=== PATIENT | male | born 1950 | race Caucasian/White ===

== ENCOUNTER 2016-08-21 10:50 | Day surgery (SDC) | payer MEDICARE, OTHER ==
[2016-08-20 10:38] VITALS: BMI 29.4
[~2016-08-21 10:50] MED LIST: ALPRAZolam 0.25 MG TAB PO PRN; ALPRAZolam 0.5 MG TAB PO PRN; ASPIRIN 325 MG TAB PO STA; ATORVASTATIN 80 MG TAB PO STA; NITROGLYCERIN SL TABS 0.4 MG TAB SUBLINGUAL PRN; SODIUM CHLORIDE 0.9% 1,000 ML in EMPTY BAG 1 BAG IV ONE
[2016-08-21 11:31] VITALS: RESP 16; TEMP 98.6
[2016-08-21 11:44] LABS: Basophils % (A) 0 %; CH 29.3; CHCM 33.3; Eosinophils # (A) 0.1 k/uL (0-0.7); Eosinophils % (A) 4 %; HDW 3.09; HGB 13.4 gm/dL (13.0-17.5); Luc # (Auto) 0.05; Luc % (Auto) 2; Lymphocytes # (A) 0.5 k/uL (1.0-4.8); Lymphocytes % (A) 17 %; MCH 29.8 pg (25.0-35.0); MCHC 33.6 g/dL (31.0-37.0); MCV 88.7 fL (80.0-100.0); Mean Platelet Volume 8.4; Monocytes # (A) 0.2 k/uL (0-1.0); Monocytes % (A) 6 %; Neutrophils # (A) 2.2 k/uL (1.3-7.7); Neutrophils % (A) 71 %; RBC 4.51 m/uL (4.30-5.90); RDW 15.8 % (11.5-15.5); WBC 3.1 k/uL (3.8-10.6); WBC (Perox) 2.91
[2016-08-21 11:57] LABS: Anion Gap 10 mmol/L; Blood Urea Nitrogen 30 mg/dL (9-20); Calcium 8.8 mg/dL (8.4-10.2); Carbon Dioxide 22 mmol/L (22-30); Chloride 111 mmol/L (98-107); Glucose 107 mg/dL (74-99); Non-African American GFR(MDRD) >60 (>60 ml/min/1.73 sqM); Sodium 143 mmol/L (137-145)
[2016-08-21] MEDS ORDERED: MIDAZOLAM 2 MG/2 ML VIAL IV ONE (12:18)
[2016-08-21] MEDS ORDERED: LIDOCAINE 2% INJ 20 MG/ML SQ ONE (12:25)
[2016-08-21] MEDS ORDERED: fentaNYL (PF) 50 MCG/ML 2 ML AMP IV ONE (12:25)
[2016-08-21] MEDS ORDERED: hydrALAZINE HCL 20 MG/ML 1 ML VIAL IV ONE (12:38)
[2016-08-21] MEDS ORDERED: IOHEXOL 350 MG/ML 125ML BOTTLE INJ ONE (12:48)
[2016-08-21] MEDS ORDERED: RX INFO: IV CONTRAST WAS GIVEN 1 EACH MISC MISCELLANE PRN (12:52)
[2016-08-21] MEDS ORDERED: NITROGLYCERIN OINT 1 INCH/GM PACKET TOPICAL ONE (12:55)
[2016-08-21] MEDS ORDERED: ENALAPRILAT 1.25 MG/ML 1 ML VIAL ONE (12:55)
[2016-08-21] MEDS ORDERED: ENALAPRILAT 1.25 MG/ML 1 ML VIAL IVP STA (12:58)
[2016-08-21] MEDS ORDERED: NITROGLYCERIN OINT 1 INCH/GM PACKET TOPICAL STA (12:58)
[2016-08-21] MEDS ORDERED: SODIUM CHLORIDE 0.9% 1,000 ML IV SCH (13:00)
--- NOTE | 2016-08-21 13:01 | P.PCN ---
Date of Procedure: 08/21/16 Preoperative Diagnosis: Chest pain and shortness of breath and history of hypertension and family history of ischemic heart disease Postoperative Diagnosis: Minimal coronary artery disease. LV gram was not performed Procedure(s) Performed: Left heart catheterization without LV gram Implants: Indications for Procedure: Operative Findings: Description of Procedure: HISTORY: This is a 66-year-old gentleman with history of COPD and hypertensive cardiac vascular disease and also strong family history of ischemic heart disease. Patient has been having exertional shortness of breath. Patient was sent for cardiac evaluation. A nuclear stress test was negative for ischemia. Echocardiogram showed good LV function. However, patient continued to have chest pain and was recommended to have cardiac catheterization by teaching dietitian. Patient has chronic low platelet count. He was cleared by cesspool cleaner proceed with cardiac cath. CONSENT:I have discussed the risks, benefits and alternative therapies for the above-mentioned procedure and for both sedation/analgesia as well as necessary blood product administration, if indicated, as they pertain to this patient. The patient has indicated understanding and acceptance of the risks and procedures discussed. PROCEDURE: Patient was brought to the lab in a fasting state. Patient was given some IV sedation. The right groin is infiltrated with lidocaine and right femoral artery was entered using Seldinger technique. A 6-Khmer catheter was left in place and selective coronary arteriography was performed. Patient tolerated the procedure well. Femoral angiogram was performed . The puncture site was not suitable for Angio-Seal. Manual compression was applied for hemostasis. No immediate complications were noted and patient was transferred to [facility] in a stable condition HEMODYNAMICS: The aortic pressure is about 160-170 systolic with diastolics of 70-80. Left ankle end-diastolic pressure was not measured SELECTIVE CORONARY ARTERIOGRAPHY: LEFT MAIN: Normal length and patent THE LEFT ANTERIOR DESCENDING CORONARY ARTERY: This is a good caliber vessel wrapping around the apex. There is a plaque at the origin of the diagonal branch involving the ostium with 30-40% luminal narrowing. The rest of the vessel is free of occlusive disease THE LEFT CIRCUMFLEX AND IS CORONARY ARTERY:. This is a good caliber vessel giving rise to good-sized PLV branch. The circumflex coronary artery and branches are free of occlusive disease. THE RIGHT CORONARY ARTERY: Small and nondominant LEFT VENTRICULOGRAPHY: Not performed FINAL IMPRESSION: Mild coronary artery disease PLAN: Maximum medical therapy and risk factor modification PROGNOSIS: Fair
[2016-08-21] MEDS ORDERED: CYCLOBENZAPRINE 10 MG TAB PO PRN (13:02)
[2016-08-21] MEDS ORDERED: COLCHICINE 0.6 MG TAB PO PRN (13:02)
[2016-08-21] MEDS ORDERED: ALBUTEROL NEBULIZED 2.5 MG/3 ML INHALATION PRN (13:02)
[2016-08-21] MEDS ORDERED: HYDROcodone/APAP 10-325MG 1 EACH TAB PO PRN (13:02)
[2016-08-21] MEDS ORDERED: HYDROmorphone 1 MG/ML 1 ML SYRINGE ONE (15:32)
[2016-08-21 19:48] VITALS: BP 156/82; PULSE 60
[2016-08-22] MEDS ORDERED: amLODIPine 10 MG TAB PO SCH (09:00)
[2016-08-22] MEDS ORDERED: ASPIRIN 81 MG CHEW PO SCH (09:00)
[2016-08-22] MEDS ORDERED: LOSARTAN 50 MG TAB PO SCH (09:00)
[2016-08-22] MEDS ORDERED: FERROUS SULFATE 325 MG TAB PO SCH (12:00)
== END 2016-08-21 20:27 | disposition home or self-care (01) ==
LOC: CATHCVL 10:50
PROVIDERS: ATTEND Internal Medicine Cardiovascular Disease
DX: I25.10 Atherosclerotic heart disease of native coronary artery without angina pectoris (principal); I11.9 Hypertensive heart disease without heart failure; J44.9 Chronic obstructive pulmonary disease, unspecified; Z82.49 Family history of ischemic heart disease and other diseases of the circulatory system; F17.200 Nicotine dependence, unspecified, uncomplicated; Z79.891 Long term (current) use of opiate analgesic; Z79.899 Other long term (current) drug therapy
CPT/HCPCS: 93454; 80048; 85025; C1769 ×3; C1894; J2001; J2250; J0360; J3010; J1170; Q9967

== ENCOUNTER → 2017-09-06 | Outpatient (CLI) | payer OTHER ==
--- NOTE | 2017-09-06 10:03 | CT ---
EXAMINATION TYPE: CT abdomen pelvis wo con DATE OF EXAM: 09/06/2017 COMPARISON: NONE HISTORY: ventral hernia CT DLP: 662.8 mGycm Automated exposure control for dose reduction was used. TECHNIQUE: Helical acquisition of images was performed from the lung bases through the pelvis. FINDINGS: LUNG BASES: There is a possible 7 mm right basilar pulmonary nodule versus ectatic vasculature with s urrounding atelectasis on series 4 image 18. Bibasilar subsegmental atelectasis is seen. LIVER/GB: There is a cirrhotic morphology of the liver. Nonspecific left hepatic lobe lesion most lik britni represents a cyst as it is fluid attenuated and measures 1.4 cm on series 3 image 27. Additional probable cyst within the right hepatic lobe as seen on series 3 image 50 measuring 8 mm. Ill-defined possible subcentimeter segment 8 lesion measures 5 mm on series 3 image 17. Evaluation of the hepatic parenchyma is limited given lack of intravenous contrast. There are gastrohepatic and splenic varice s. No paraesophageal varices are identified. Haziness within the central mesentery likely relates to venous congestion due to portal hypertension. PANCREAS: There is mild pancreatic parenchymal atrophy without ductal dilatation. SPLEEN: The spleen is enlarged measuring 16.2 cm in craniocaudal dimension. ADRENALS: Indeterminate 1.1 cm right adrenal gland lesion does not measure Hounsfield units compatibl e with a benign adenoma or myelolipoma. KIDNEYS: No hydronephrosis or nephrolithiasis. Possible right upper pole renal cyst is ill-defined wi thout contrast and seen on series 3 image 36. FREE AIR: No free air is visualized REPRODUCTIVE ORGANS: Prostate gland is heterogenous containing central zone calcifications. URINARY BLADDER: No significant abnormality is seen. ADENOPATHY: No greater than 1 cm short axis lymph node is seen within the abdomen or pelvis. OSSEOUS STRUCTURES: Nonspecific sclerotic focus of the left ischium is present on series 3 image 89. Moderate multilevel degenerative changes of the thoracic spine are seen with grade 1 retrolisthesis of L3 on L4 and degenerative changes most pronounced from L3 through S1. BOWEL: There is mild congestive colopathy of the right hemicolon with pericolonic fat stranding powell ges from the adjacent hepatocellular disease. No bowel dilatation. Appendix is within normal limits. Numerous colonic diverticula are present without pericolonic fat stranding. OTHER: There has been ventral hernia repair. There remains diastases recti. Abutting loops of bowel a re seen without discrete fascial defect. Left-sided anterior hip musculature lipomatous lesion is pre sent on series 3 image 88 measuring 1.6 cm. VASCULATURE: The abdominal aorta is tortuous in course and upper limits of normal size measuring 3.3 x 3.0 cm infrarenally. There is a focal acute ankle of the abdominal aorta on coronal series 6 image 58. Moderate calcific atheromatous changes are appreciated. IMPRESSION: 1. PRIOR VENTRAL HERNIA REPAIR WITHOUT EVIDENCE FOR RECURRENCE. 2. 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 ADD ITIONALLY THERE ARE 2 HEPATIC CYSTS AND SUBCENTIMETER HEPATIC LESION THAT COULD REPRESENT A REGENERAT JUNG NODULE ON THE HEPATOMA IS NOT EXCLUDED IN THIS PATIENT WITH A HIGH RISK OF HEPATOCELLULAR DISEASE . ENHANCED MR COULD BE PERFORMED FOR FURTHER EVALUATION. 3. INDETERMINATE RIGHT 1.1 CM ADRENAL GLAND LESION. THIS COULD ALSO BE FURTHER CHARACTERIZED WITH MRI . 4. POSSIBLE 7 MM RIGHT BASILAR PULMONARY NODULE VERSUS VASCULAR ECTASIA. CONTRAST ENHANCED EXAM WOULD FURTHER DELINEATE THIS FINDING.
== END ==
LOC: RADCTMAIN 08:35
PROVIDERS: ATTEND Surgery Plastic and Reconstructive Surgery
DX: K74.60 Unspecified cirrhosis of liver (principal); K76.6 Portal hypertension; I86.4 Gastric varices; K76.89 Other specified diseases of liver; K76.9 Liver disease, unspecified
CPT/HCPCS: 74176

== ENCOUNTER 2018-08-31 00:42 | Observation (INO) | payer MEDICARE, OTHER ==
[2018-08-31] MEDS ORDERED: SODIUM CHLORIDE 0.9% 500 ML 500 ML IV STA (01:03)
--- NOTE | 2018-08-31 01:08 | ED ---
SOB HPI - General Chief Complaint: Shortness of Breath Stated Complaint: SOB Time Seen by Provider: 08/31/18 00:44 Source: patient, EMS - History of Present Illness Initial Comments: This patient is a 68-year-old man who presents tonight to be evaluate for shortness of breath. The patient states that he felt like he was at his baseline when he went to sleep. he states that he woke up due to having leg cramps. Patient relates that he got up out of bed to try to walk the leg cramps off and then felt like he was short of breath and not able to catch his breath. EMS was phoned and they brought him here. The patient states that his breathing does feel better than it had been. He did not note any other symptoms going on. No fever or chills. No chest pain or palpitations. No cough. No change in urination or bowel movements. No leg pain or swelling other than the cramp that did resolve. MD Complaint: shortness of breath Onset/Timin -: hour(s) Consistency: now resolved Improves With: nothing Worsens With: nothing Associated Symptoms: lower extremity pain Treatments Prior to Arrival: none - Related Data Home Medications Medication Instructions Recorded Confirmed HYDROcodone/APAP 10-325MG [[place] 0.5 tab PO QID PRN 08/06/14 08/21/16 10] Losartan Potassium [Cozaar] 100 mg PO DAILY 08/06/14 08/21/16 amLODIPine [Norvasc] 10 mg PO DAILY 08/06/14 08/21/16 Ferrous Sulfate [Feosol] 325 mg PO DAILY 10/28/15 08/21/16 Aspirin 81 mg PO DAILY 08/02/16 08/21/16 Colchicine 0.6 mg PO DAILY PRN 08/02/16 08/21/16 Cyclobenzaprine [Flexeril] 10 mg PO TID PRN 08/02/16 08/21/16 Nitroglycerin Sl Tabs [Nitrostat] 0.4 mg SUBLINGUAL Q5M PRN 08/02/16 08/21/16 Albuterol Sulfate [Proventil Hfa] 1 - 2 puff INHALATION Q6HR PRN 08/20/16 08/21/16 Cholecalciferol [Vitamin D3] 1,000 unit PO DAILY 05/15/17 05/16/17 Allergies Allergy/AdvReac Type Severity Reaction Status Date / Time No Known Allergies Allergy Verified 08/20/16 10:18 Review of Systems ROS Statement: Those systems with pertinent positive or pertinent negative responses have been documented in the HPI. ROS Other: All systems not noted in ROS Statement are negative. Constitutional: Denies: fever, chills Respiratory: Reports: dyspnea. Denies: cough, wheezes, hemoptysis Cardiovascular: Denies: chest pain, palpitations, orthopnea, edema, syncope Gastrointestinal: Denies: abdominal pain, nausea, vomiting, melena, hematochezia Genitourinary: Denies: dysuria, hematuria Musculoskeletal: Denies: back pain Skin: Denies: rash Neurological: Denies: headache, weakness, numbness Past Medical History Past Medical History: Cancer, Chest Pain / Angina, COPD, Hypertension, Liver Disease, Musculoskeletal Disorder Additional Past Medical History / Comment(s): HX OF HEPATITIS C WITH TX THAT ENDED IN MAY 2015, LOW IRON (UNSURE IF CAUSED BY HEPATITIS TX), BACK PAIN, HERNIATED DISCS, SKIN CANCER. see Dr Pedro H & P History of Any Multi-Drug Resistant Organisms: None Reported Past Surgical History: Back Surgery, Hernia Repair, Orthopedic Surgery Additional Past Surgical History / Comment(s): hemorrhoids ,back surgery, cataract, skin cancer, inguinal hernia, abdominal hernia, left shoulder, right wrist, growth removed vocal cord Past Anesthesia/Blood Transfusion Reactions: No Reported Reaction, Motion Sic kness Past Psychological History: No Psychological Hx Reported Smoking Status: Current every day smoker - Past Family History Father Family Medical History: Cancer General Exam General appearance: alert, in no apparent distress Head exam: Present: atraumatic, normocephalic Eye exam: Present: normal appearance. Absent: scleral icterus, conjunctival injection Neck exam: Present: normal inspection Respiratory exam: Present: wheezes. Absent: respiratory distress, rales, rhonchi, stridor, accessory muscle use, decreased breath sounds, prolonged expiratory Cardiovascular Exam: Present: regular rate, normal rhythm, systolic murmur (Grade 1/6 systolic ejection murmur at the right sternal border). Absent: diastolic murmur, rubs, gallop GI/Abdominal exam: Present: soft. Absent: distended, tenderness, guarding, rebound, rigid, mass Extremities exam: Present: normal inspection, normal capillary refill. Absent: pedal edema, calf tenderness Back exam: Present: normal inspection. Absent: CVA tenderness (R), CVA tenderness (L) Neurological exam: Present: alert Skin exam: Present: warm, dry, intact, normal color. Absent: rash Course Vital Signs 08/31/18 08/31/18 08/31/18 00:44 00:46 02:30 Temperature 98.7 F Pulse Rate 103 H Respiratory 16 17 Rate Blood Pressure 176/87 176/87 168/85 O2 Sat by Pulse 100 91 L Oximetry 08/31/18 08/31/18 08/31/18 02:42 02:47 03:10 Temperature Pulse Rate 72 69 Respiratory 18 Rate Blood Pressure 169/87 O2 Sat by Pulse 91 L Oximetry 08/31/18 08/31/18 03:15 03:20 Temperature 98.3 F Pulse Rate Respiratory Rate Blood Pressure 174/88 O2 Sat by Pulse Oximetry Medical Decision Making - Lab Data Result diagrams: 08/31/18 00:55 08/31/18 00:55 Lab Results 08/31/18 08/31/18 08/31/18 Range/Units 00:55 00:55 00:55 WBC (3.8-10.6) k/uL RBC (4.30-5.90) m/uL Hgb (13.0-17.5) gm/dL Hct (39.0-53.0) % MCV (80.0-100.0) fL MCH (25.0-35.0) pg MCHC (31.0-37.0) g/dL RDW (11.5-15.5) % Plt Count (150-450) k/uL Neutrophils % % Lymphocytes % % Monocytes % % Eosinophils % % Basophils % % Neutrophils # (1.3-7.7) k/uL Lymphocytes # (1.0-4.8) k/uL Monocytes # (0-1.0) k/uL Eosinophils # (0-0.7) k/uL Basophils # (0-0.2) k/uL Manual Slide Review Hypochromasia Poikilocytosis PT 9.9 (9.0-12.0) sec INR 0.9 (<1.2) APTT 23.8 (22.0-30.0) sec D-Dimer 0.49 (<0.60) mg/L FEU VBG pH (7.31-7.41) VBG pCO2 (37-51) mmHg VBG HCO3 (24-28) mmol/L Sodium 142 (137-145) mmol/L Potassium 4.0 (3.5-5.1) mmol/L Chloride 111 H (98-107) mmol/L Carbon Dioxide 22 (22-30) mmol/L Anion Gap 9 mmol/L BUN 47 H (9-20) mg/dL Creatinine 1.81 H (0.66-1.25) mg/dL Est GFR (CKD-EPI)AfAm 44 (>60 ml/min/1.73 sqM) Est GFR (CKD-EPI)NonAf 38 (>60 ml/min/1.73 sqM) Glucose 87 (74-99) mg/dL Calcium 9.0 (8.4-10.2) mg/dL Total Bilirubin 0.4 (0.2-1.3) mg/dL AST 37 (17-59) U/L ALT 25 (21-72) U/L Alkaline Phosphatase 71 (38-126) U/L Troponin I (0.000-0.034) ng/mL NT-Pro-B Natriuret Pep 831 pg/mL Total Protein 6.8 (6.3-8.2) g/dL Albumin 4.1 (3.5-5.0) g/dL Urine Color Urine Appearance (Clear) Urine pH (5.0-8.0) Ur Specific Nicholson (1.001-1.035) Urine Protein (Negative) Urine Glucose (UA) (Negative) Urine Ketones (Negative) Urine Blood (Negative) Urine Nitrite (Negative) Urine Bilirubin (Negative) Urine Urobilinogen (<2.0) mg/dL Ur Leukocyte Esterase (Negative) Urine RBC (0-5) /hpf Urine WBC (0-5) /hpf Hyaline Casts (0-2) /lpf 08/31/18 08/31/18 08/31/18 Range/Units 00:55 00:55 01:29 WBC 2.5 L (3.8-10.6) k/uL RBC 4.59 (4.30-5.90) m/uL Hgb 12.3 L (13.0-17.5) gm/dL Hct 38.3 L (39.0-53.0) % MCV 83.4 (80.0-100.0) fL MCH 26.7 (25.0-35.0) pg MCHC 32.0 (31.0-37.0) g/dL RDW 15.4 (11.5-15.5) % Plt Count 62 L (150-450) k/uL Neutrophils % 63 % Lymphocytes % 22 % Monocytes % 7 % Eosinophils % 6 % Basophils % 0 % Neutrophils # 1.6 (1.3-7.7) k/uL Lymphocytes # 0.5 L (1.0-4.8) k/uL Monocytes # 0.2 (0-1.0) k/uL Eosinophils # 0.1 (0-0.7) k/uL Basophils # 0.0 (0-0.2) k/uL Manual Slide Review Performed Hypochromasia Slight Poikilocytosis Slight PT (9.0-12.0) sec INR (<1.2) APTT (22.0-30.0) sec D-Dimer (<0.60) mg/L FEU VBG pH (7.31-7.41) VBG pCO2 (37-51) mmHg VBG HCO3 (24-28) mmol/L Sodium (137-145) mmol/L Potassium (3.5-5.1) mmol/L Chloride (98-107) mmol/L Carbon Dioxide (22-30) mmol/L Anion Gap mmol/L BUN (9-20) mg/dL Creatinine (0.66-1.25) mg/dL Est GFR (CKD-EPI)AfAm (>60 ml/min/1.73 sqM) Est GFR (CKD-EPI)NonAf (>60 ml/min/1.73 sqM) Glucose (74-99) mg/dL Calcium (8.4-10.2) mg/dL Total Bilirubin (0.2-1.3) mg/dL AST (17-59) U/L ALT (21-72) U/L Alkaline Phosphatase (38-126) U/L Troponin I 0.034 (0.000-0.034) ng/mL NT-Pro-B Natriuret Pep pg/mL Total Protein (6.3-8.2) g/dL Albumin (3.5-5.0) g/dL Urine Color Light Yellow Urine Appearance Clear (Clear) Urine pH 6.5 (5.0-8.0) Ur Specific Nicholson 1.013 (1.001-1.035) Urine Protein 2+ H (Negative) Urine Glucose (UA) Negative (Negative) Urine Ketones Negative (Negative) Urine Blood Trace H (Negative) Urine Nitrite Negative (Negative) Urine Bilirubin Negative (Negative) Urine Urobilinogen <2.0 (<2.0) mg/dL Ur Leukocyte Esterase Negative (Negative) Urine RBC 2 (0-5) /hpf Urine WBC 7 H (0-5) /hpf Hyaline Casts 3 H (0-2) /lpf 08/31/18 Range/Units 01:44 WBC (3.8-10.6) k/uL RBC (4.30-5.90) m/uL Hgb (13.0-17.5) gm/dL Hct (39.0-53.0) % MCV (80.0-100.0) fL MCH (25.0-35.0) pg MCHC (31.0-37.0) g/dL RDW (11.5-15.5) % Plt Count (150-450) k/uL Neutrophils % % Lymphocytes % % Monocytes % % Eosinophils % % Basophils % % Neutrophils # (1.3-7.7) k/uL Lymphocytes # (1.0-4.8) k/uL Monocytes # (0-1.0) k/uL Eosinophils # (0-0.7) k/uL Basophils # (0-0.2) k/uL Manual Slide Review Hypochromasia Poikilocytosis PT (9.0-12.0) sec INR (<1.2) APTT (22.0-30.0) sec D-Dimer (<0.60) mg/L FEU VBG pH 7.36 (7.31-7.41) VBG pCO2 41 (37-51) mmHg VBG HCO3 22 L (24-28) mmol/L Sodium (137-145) mmol/L Potassium (3.5-5.1) mmol/L Chloride (98-107) mmol/L Carbon Dioxide (22-30) mmol/L Anion Gap mmol/L BUN (9-20) mg/dL Creatinine (0.66-1.25) mg/dL Est GFR (CKD-EPI)AfAm (>60 ml/min/1.73 sqM) Est GFR (CKD-EPI)NonAf (>60 ml/min/1.73 sqM) Glucose (74-99) mg/dL Calcium (8.4-10.2) mg/dL Total Bilirubin (0.2-1.3) mg/dL AST (17-59) U/L ALT (21-72) U/L Alkaline Phosphatase (38-126) U/L Troponin I (0.000-0.034) ng/mL NT-Pro-B Natriuret Pep pg/mL Total Protein (6.3-8.2) g/dL Albumin (3.5-5.0) g/dL Urine Color Urine Appearance (Clear) Urine pH (5.0-8.0) Ur Specific Nicholson (1.001-1.035) Urine Protein (Negative) Urine Glucose (UA) (Negative) Urine Ketones (Negative) Urine Blood (Negative) Urine Nitrite (Negative) Urine Bilirubin (Negative) Urine Urobilinogen (<2.0) mg/dL Ur Leukocyte Esterase (Negative) Urine RBC (0-5) /hpf Urine WBC (0-5) /hpf Hyaline Casts (0-2) /lpf - EKG Data -: EKG Interpreted by Me EKG shows normal: sinus rhythm, axis (Normal), intervals (Normal), ST-T waves (Possible lateral ischemia.) Rate: normal (Rate 75 bpm) Interpretation: other (Possible old septal infarct.) Disposition Clinical Impression: COPD exacerbation, Acute kidney injury Disposition: ADMITTED IP TO THIS HOSP Condition: Fair Is patient prescribed a controlled substance at d/c from ED?: No
[2018-08-31 01:31] LABS: Basophils % (A) 0 %; Eosinophils # (A) 0.1 k/uL (0-0.7); Eosinophils % (A) 6 %; HCT 38.3 % (39.0-53.0); HGB 12.3 gm/dL (13.0-17.5); Hypochromasia Slight; Lymphocytes # (A) 0.5 k/uL (1.0-4.8); Lymphocytes % (A) 22 %; MCH 26.7 pg (25.0-35.0); MCV 83.4 fL (80.0-100.0); Mean Platelet Volume 8.9; Monocytes # (A) 0.2 k/uL (0-1.0); Monocytes % (A) 7 %; Neutrophils # (A) 1.6 k/uL (1.3-7.7); Neutrophils % (A) 63 %; Poikilocytosis Slight; RBC 4.59 m/uL (4.30-5.90); RDW 15.4 % (11.5-15.5); WBC 2.5 k/uL (3.8-10.6)
--- NOTE | 2018-08-31 01:32 | XR ---
EXAM: XR Chest, 2 Views CLINICAL HISTORY: ITS.REASON XR Reason: difficulty breathing TECHNIQUE: Frontal and lateral views of the chest. COMPARISON: Chest radiographs 07/25/2016. FINDINGS: Lungs: Hyperexpanded lungs suggestive of COPD. Pleural space: Unremarkable. No pneumothorax. Heart: Unremarkable. No cardiomegaly. Mediastinum: Unremarkable. Bones/joints: Unremarkable. Vasculature: Ectatic aortic arch again demonstrated. IMPRESSION: 1. No acute cardiopulmonary abnormality. 2. Hyperexpanded lungs suggestive of COPD.
[2018-08-31 01:48] LABS: Platelet Count 62 k/uL (150-450)
[2018-08-31 01:50] LABS: D-Dimer 0.49 mg/L FEU (<0.60); INR 0.9 (<1.2); Partial Thromboplastin Time 23.8 sec (22.0-30.0); Prothrombin Time 9.9 sec (9.0-12.0)
[2018-08-31 01:54] LABS: VBG PH 7.36 (7.31-7.41)
[2018-08-31 01:57] LABS: Albumin 4.1 g/dL (3.5-5.0); Total Bilirubin 0.4 mg/dL (0.2-1.3); Total Protein 6.8 g/dL (6.3-8.2)
[2018-08-31] MEDS ORDERED: IPRATROPIUM-ALBUTEROL 3 ML NEB INHALATION STA (02:32)
[2018-08-31] MEDS ORDERED: predniSONE 20 MG TAB PO STA (02:32)
[2018-08-31 02:56] LABS: Appearance,Urine Clear (Clear); Bilirubin,Urine Negative (Negative); Blood,Urine Trace (Negative); Color,Urine Light Yellow; Glucose,Urine (UA) Negative (Negative); Hyaline Casts,Urine 3 /lpf (0-2); Ketones,Urine Negative (Negative); Leukocyte Esterase,Urine Negative (Negative); Nitrite,Urine Negative (Negative); PH, Urine 6.5 (5.0-8.0); Protein,Urine 2+ (Negative); RBC,Urine 2 /hpf (0-5); Specific Gravity,Urine 1.013 (1.001-1.035); Urobilinogen,Urine <2.0 mg/dL (<2.0); WBC,Urine 7 /hpf (0-5)
[2018-08-31] MEDS ORDERED: ALBUTEROL NEBULIZED 2.5 MG/3 ML INHALATION PRN (03:06)
[2018-08-31] MEDS ORDERED: HYDROcodone/APAP 10-325MG 1 EACH TAB PO PRN (03:08)
[2018-08-31] MEDS ORDERED: NITROGLYCERIN SL TABS 0.4 MG TAB SUBLINGUAL PRN (03:08)
[2018-08-31] MEDS ORDERED: CYCLOBENZAPRINE 10 MG TAB PO PRN (03:08)
[2018-08-31] MEDS ORDERED: COLCHICINE 0.6 MG EACH PO PRN (03:08)
[2018-08-31] MEDS ORDERED: amLODIPine 10 MG TAB PO STA (04:08)
[2018-08-31] MEDS ORDERED: LOSARTAN 50 MG TAB PO STA (04:10)
[2018-08-31 04:36] VITALS: BMI 29.2
[2018-08-31] MEDS ORDERED: LOSARTAN 50 MG TAB PO SCH ×2 (05:31→09:00)
[2018-08-31] MEDS ORDERED: amLODIPine 10 MG TAB PO SCH ×2 (05:32→09:00)
[2018-08-31] MEDS ORDERED: SODIUM CHLORIDE 0.9% 1,000 ML IV SCH (06:45)
[2018-08-31 07:58] VITALS: RESP 16
[2018-08-31] MEDS: IPRATROPIUM-ALBUTEROL 3 ML NEB INHALATION SCH ×2 (08:15→11:35)
[2018-08-31] MEDS ORDERED: ASPIRIN 81 MG PO SCH (09:00)
[2018-08-31] MEDS ORDERED: predniSONE 20 MG TAB PO SCH (09:00)
[2018-08-31] MEDS ORDERED: CHOLECALCIFEROL 1,000 UNIT TAB PO SCH (09:00)
[2018-08-31] MEDS ORDERED: FERROUS SULFATE 325 MG TAB PO SCH (09:00)
[2018-08-31 13:05] LABS: Calcium 9.1 mg/dL (8.4-10.2); Potassium 4.1 mmol/L (3.5-5.1)
[2018-08-31 14:26] VITALS: BP 178/78; PULSE 77; TEMP 97.9
--- NOTE | 2018-08-31 15:51 | P.HPIM ---
History of Present Illness 68-year-old pleasant gentleman came in with compensative shortness of breath admitted for Cerebyx admission patient was apparently wheezing yesterday significant improved today patient will be discharged on weaning dose of steroids patient was comparing of cough unable to bring up much. Patient the chest x-ray did not show any pneumonic process patient doesn't use any oxygen patient continues to smoke about 3-4 cigarettes a day. Patient to quit smoking and was only smoking 1 cigarette per day since his about 3 weeks ago he started smoking again. Extensive counseling regarding smoking cessation was provided patient will be discharged on weaning dose of steroids toxic and. Patient was also complaining of some cramps in the legs. Patient had acute renal failure with elevated serum creatinine of 1.8 baseline around 1 improved with IV fluids patient will be increased to drink water at home. Patient was saturating at 94% on room air and did not desaturate upon ablation. Review of Systems REVIEW OF SYSTEMS: CONSTITUTIONAL: No fever, no malaise, no fatigue. HEENT: No recent visual problems or hearing problems. Denied any sore throat. CARDIOVASCULAR: No chest pain, orthopnea, PND, no palpitations, no syncope. PULMONARY: As mentioned in HPI GASTROINTESTINAL: No diarrhea, no nausea, no vomiting, no abdominal pain. NEUROLOGICAL: No headaches, no weakness, no numbness. HEMATOLOGICAL: Denies any bleeding or petechiae. GENITOURINARY: Denies any burning micturition, frequency, or urgency. MUSCULOSKELETAL/RHEUMATOLOGICAL: Denies any joint pain, swelling, or any muscle pain. ENDOCRINE: Denies any polyuria or polydipsia. The rest of the 14-point review of systems is negative. Past Medical History Past Medical History: Cancer, Chest Pain / Angina, COPD, Hypertension, Liver Disease, Musculoskeletal Disorder Additional Past Medical History / Comment(s): HX OF HEPATITIS C WITH TX THAT ENDED IN MAY 2015, LOW IRON (UNSURE IF CAUSED BY HEPATITIS TX), BACK PAIN, HERNIATED DISCS, SKIN CANCER. see Dr Pedro H & P History of Any Multi-Drug Resistant Organisms: None Reported Past Surgical History: Back Surgery, Hernia Repair, Orthopedic Surgery Additional Past Surgical History / Comment(s): hemorrhoids ,back surgery, cataract, skin cancer, inguinal hernia, abdominal hernia, left shoulder, right wrist, growth removed vocal cord Past Anesthesia/Blood Transfusion Reactions: No Reported Reaction, Motion Sickness Past Psychological History: No Psychological Hx Reported Smoking Status: Current every day smoker - Past Family History Father Family Medical History: Cancer Medications and Allergies Home Medications Medication Instructions Recorded Confirmed Type Losartan Potassium [Cozaar] 100 mg PO DAILY 08/06/14 08/31/18 History amLODIPine [Norvasc] 10 mg PO DAILY 08/06/14 08/31/18 History Ferrous Sulfate [Iron (65 MG 325 mg PO DAILY 10/28/15 08/31/18 History Elemental)] Aspirin 81 mg PO DAILY 08/02/16 08/31/18 History Colchicine 0.6 mg PO DAILY PRN 08/02/16 08/31/18 History Cyclobenzaprine [Flexeril] 10 mg PO TID PRN 08/02/16 08/31/18 History Nitroglycerin Sl Tabs [Nitrostat] 0.4 mg SUBLINGUAL Q5M PRN 08/02/16 08/31/18 History Albuterol Sulfate [Proventil Hfa] 1 - 2 puff INHALATION RT-Q6H PRN 08/20/16 History Cholecalciferol [Vitamin D3 (25 1,000 unit PO DAILY 08/20/16 08/31/18 History Mcg = 1000 Iu)] Albuterol Nebulized [Ventolin 2.5 mg INHALATION RT-BID 08/31/18 08/31/18 History Nebulized] Budesonide [Pulmicort] 0.5 mg INHALATION RT-DAILY PRN 08/31/18 08/31/18 History Doxycycline Monohydrate [Monodox] 100 mg PO BID 3 Days #6 cap 08/31/18 Rx Hydrocodone/Acetaminophen [[place] 1 tab PO TID 08/31/18 08/31/18 History 10-325] Montelukast Sodium [Singulair] 10 mg PO DAILY 08/31/18 08/31/18 History Ranitidine HCl [Zantac] 150 mg PO BID #30 tab 08/31/18 Rx Tiotropium 18 Mcg/Puff [Spiriva] 1 puff INHALATION RT-DAILY 08/31/18 08/31/18 History predniSONE 10 mg PO DAILY #30 tab 08/31/18 Rx Allergies Allergy/AdvReac Type Severity Reaction Status Date / Time No Known Allergies Allergy Verified 08/31/18 08:56 Physical Exam Vitals: Vital Signs Temp Pulse Pulse Resp BP BP Pulse Ox 08/31/18 14:25 97.9 F 77 16 178/78 94 L 08/31/18 12:17 93 L 08/31/18 11:44 78 08/31/18 11:37 70 08/31/18 08:22 68 08/31/18 08:15 74 08/31/18 07:00 98.1 F 76 16 168/81 93 L 08/31/18 06:07 71 176/78 08/31/18 04:17 97.8 F 69 19 183/82 96 08/31/18 04:10 98.3 F 85 16 167/86 08/31/18 04:00 20 08/31/18 03:54 98.3 F 08/31/18 03:40 16 170/85 92 L 08/31/18 03:20 174/88 08/31/18 03:15 98.3 F 08/31/18 03:10 18 169/87 91 L 08/31/18 02:47 69 08/31/18 02:42 72 08/31/18 02:30 17 168/85 91 L 08/31/18 00:46 176/87 08/31/18 00:44 98.7 F 103 H 16 176/87 100 Intake and Output 08/31/18 08/31/18 08/31/18 06:59 14:59 22:59 Other: Voiding Method Toilet Urinal # Voids 1 3 Weight 92.533 kg 92.533 kg PHYSICAL EXAMINATION: GENERAL: The patient is alert and oriented x3, not in any acute distress. Well developed, well nourished. HEENT: Pupils are round and equally reacting to light. EOMI. No scleral icterus. No conjunctival pallor. Normocephalic, atraumatic. No pharyngeal erythema. No thyromegaly. CARDIOVASCULAR: S1 and S2 present. No murmurs, rubs, or gallops. PULMONARY: Chest is clear to auscultation, no wheezing or crackles. Mildly diminished air entry into bilateral lung wisdom. ABDOMEN: Soft, nontender, nondistended, normoactive bowel sounds. No palpable organomegaly. MUSCULOSKELETAL: No joint swelling or deformity. EXTREMITIES: No cyanosis, clubbing, or pedal edema. NEUROLOGICAL: Gross neurological examination did not reveal any focal deficits. SKIN: No rashes. Results CBC & Chem 7: 08/31/18 00:55 08/31/18 12:40 Labs: Abnormal Lab Results - Last 24 Hours (Table) 08/31/18 08/31/18 08/31/18 Range/Units 00:55 00:55 01:29 WBC 2.5 L (3.8-10.6) k/uL Hgb 12.3 L (13.0-17.5) gm/dL Hct 38.3 L (39.0-53.0) % Plt Count 62 L (150-450) k/uL Lymphocytes # 0.5 L (1.0-4.8) k/uL VBG HCO3 (24-28) mmol/L Chloride 111 H (98-107) mmol/L Carbon Dioxide (22-30) mmol/L BUN 47 H (9-20) mg/dL Creatinine 1.81 H (0.66-1.25) mg/dL Glucose (74-99) mg/dL Urine Protein 2+ H (Negative) Urine Blood Trace H (Negative) Urine WBC 7 H (0-5) /hpf Hyaline Casts 3 H (0-2) /lpf 08/31/18 08/31/18 Range/Units 01:44 12:40 WBC (3.8-10.6) k/uL Hgb (13.0-17.5) gm/dL Hct (39.0-53.0) % Plt Count (150-450) k/uL Lymphocytes # (1.0-4.8) k/uL VBG HCO3 22 L (24-28) mmol/L Chloride 108 H (98-107) mmol/L Carbon Dioxide 20 L (22-30) mmol/L BUN 38 H (9-20) mg/dL Creatinine 1.36 H (0.66-1.25) mg/dL Glucose 217 H (74-99) mg/dL Urine Protein (Negative) Urine Blood (Negative) Urine WBC (0-5) /hpf Hyaline Casts (0-2) /lpf Thrombosis Risk Factor Assmnt - Choose All That Apply Any of the Below Risk Factors Present?: Yes Each Risk Factor Represents 2 Points: Age 61-74 years Thrombosis Risk Factor Assessment Total Risk Factor Score: 2 Thrombosis Risk Factor Assessment Level: Low Risk Assessment and Plan Plan: -COPD with acute exacerbation: Improved will be discharged on weaning dose of steroids inhalational treatments. -Possible tracheobronchitis -Acute renal failure prerenal azotemia improved with IV fluids -Continued nicotine use: Counseling was provided Hypertension -Depression
--- NOTE | 2018-08-31 15:52 | P.DS ---
Providers Date of admission: 08/31/18 03:06 Attending physician: Hillary Franks Primary care physician: [facility] Course: As mentioned in HPI Patient Condition at Discharge: Fair Plan - Discharge Summary Discharge Rx Participant: No New Discharge Prescriptions: New Doxycycline Monohydrate [Monodox] 100 mg PO BID 3 Days #6 cap predniSONE 10 mg PO DAILY #30 tab Ranitidine HCl [Zantac] 150 mg PO BID #30 tab Continue amLODIPine [Norvasc] 10 mg PO DAILY Losartan Potassium [Cozaar] 100 mg PO DAILY Ferrous Sulfate [Iron (65 MG Elemental)] 325 mg PO DAILY Nitroglycerin Sl Tabs [Nitrostat] 0.4 mg SUBLINGUAL Q5M PRN PRN Reason: Chest Pain Aspirin 81 mg PO DAILY Cyclobenzaprine [Flexeril] 10 mg PO TID PRN PRN Reason: Muscle Spasm Colchicine 0.6 mg PO DAILY PRN PRN Reason: gout Cholecalciferol [Vitamin D3 (25 Mcg = 1000 Iu)] 1,000 unit PO DAILY Albuterol Sulfate [Proventil Hfa] 1 - 2 puff INHALATION RT-Q6H PRN PRN Reason: Shortness Of Breath Budesonide [Pulmicort] 0.5 mg INHALATION RT-DAILY PRN PRN Reason: FLARE Albuterol Nebulized [Ventolin Nebulized] 2.5 mg INHALATION RT-BID Tiotropium 18 Mcg/Puff [Spiriva] 1 puff INHALATION RT-DAILY Hydrocodone/Acetaminophen [[place] 10-325] 1 tab PO TID Montelukast Sodium [Singulair] 10 mg PO DAILY Discharge Medication List Losartan Potassium [Cozaar] 100 mg PO DAILY 08/06/14 [History] amLODIPine [Norvasc] 10 mg PO DAILY 08/06/14 [History] Ferrous Sulfate [Iron (65 MG Elemental)] 325 mg PO DAILY 10/28/15 [History] Aspirin 81 mg PO DAILY 08/02/16 [History] Colchicine 0.6 mg PO DAILY PRN 08/02/16 [History] Cyclobenzaprine [Flexeril] 10 mg PO TID PRN 08/02/16 [History] Nitroglycerin Sl Tabs [Nitrostat] 0.4 mg SUBLINGUAL Q5M PRN 08/02/16 [History] Albuterol Sulfate [Proventil Hfa] 1 - 2 puff INHALATION RT-Q6H PRN 08/20/16 [History] Cholecalciferol [Vitamin D3 (25 Mcg = 1000 Iu)] 1,000 unit PO DAILY 08/20/16 [History] Albuterol Nebulized [Ventolin Nebulized] 2.5 mg INHALATION RT-BID 08/31/18 [History] Budesonide [Pulmicort] 0.5 mg INHALATION RT-DAILY PRN 08/31/18 [History] Doxycycline Monohydrate [Monodox] 100 mg PO BID 3 Days #6 cap 08/31/18 [Rx] Hydrocodone/Acetaminophen [[place] 10-325] 1 tab PO TID 08/31/18 [History] Montelukast Sodium [Singulair] 10 mg PO DAILY 08/31/18 [History] Ranitidine HCl [Zantac] 150 mg PO BID #30 tab 08/31/18 [Rx] Tiotropium 18 Mcg/Puff [Spiriva] 1 puff INHALATION RT-DAILY 08/31/18 [History] predniSONE 10 mg PO DAILY #30 tab 08/31/18 [Rx] Follow up Appointment(s)/Referral(s): [facility] [Primary Care Provider] - 3 Days Patient Instructions/Handouts: COPD (Chronic Obstructive Pulmonary Disease) (DC) Discharge Disposition: HOME SELF-CARE
== END 2018-08-31 15:37 | disposition home or self-care (01) ==
LOC: EC 00:42 → 4SSUR 03:06
PROVIDERS: ADMIT Hospitalist; ATTEND Hospitalist
DX: J44.1 Chronic obstructive pulmonary disease with (acute) exacerbation (principal); N17.9 Acute kidney failure, unspecified; I10 Essential (primary) hypertension; F17.210 Nicotine dependence, cigarettes, uncomplicated; R79.89 Other specified abnormal findings of blood chemistry; M54.9 Dorsalgia, unspecified; M62.9 Disorder of muscle, unspecified; F32.9 Major depressive disorder, single episode, unspecified; Z79.82 Long term (current) use of aspirin; Z79.899 Other long term (current) drug therapy; Z79.891 Long term (current) use of opiate analgesic; Z79.51 Long term (current) use of inhaled steroids; Z85.828 Personal history of other malignant neoplasm of skin; Z86.19 Personal history of other infectious and parasitic diseases; Z98.42 Cataract extraction status, left eye; Z98.41 Cataract extraction status, right eye; Z80.9 Family history of malignant neoplasm, unspecified
CPT/HCPCS: 99285; 36415; 94640 ×2; 93005; 85379; 83880; 80053; 80048; 82803; 84484; 85025; 85610; 85730; 81001; 71046; G0378; J7512

== ENCOUNTER → 2018-12-31 | Day surgery (SDC) | payer MEDICARE, OTHER ==
[2018-12-29 16:03] VITALS: BMI 25.5
[~2018-12-31] MED LIST changes: -ALPRAZolam 0.25 MG TAB PO PRN; -ALPRAZolam 0.5 MG TAB PO PRN; -ASPIRIN 325 MG TAB PO STA; -ATORVASTATIN 80 MG TAB PO STA; +LACTATED RINGERS 1,000 ML IV SCH; +LIDOCAINE 1% 20 ML VIAL (10MG/ML) FOR IV START INTRADERMA PRN; -NITROGLYCERIN SL TABS 0.4 MG TAB SUBLINGUAL PRN; +PROPOFOL 10 MG/ML 20 ML VIAL IV ONE; -SODIUM CHLORIDE 0.9% 1,000 ML in EMPTY BAG 1 BAG IV ONE
[2018-12-31 10:02] VITALS: TEMP 98.1
--- NOTE | 2018-12-31 10:32 | P.PCN ---
Date of Procedure: 12/31/18 Procedure(s) Performed: BRIEF HISTORY: Patient is a [age]-year-old pleasant white male scheduled for an elective colonoscopy as a part of screening for colorectal neoplasia. PROCEDURE PERFORMED: Colonoscopy. PREOPERATIVE DIAGNOSIS: Greening for colon cancer. IV sedation per Anesthesia. PROCEDURE: After informed consent was obtained, the patient, was brought into the endoscopy unit. IV sedation was administered by Anesthesia under continuous monitoring. Digital rectal examination was normal. Initially the Olympus CF-160 flexible video colonoscope was then inserted in the rectum, gradually advanced into the cecum without any difficulty. Careful examination was performed as the scope was gradually being withdrawn. Ileocecal valve and the appendiceal orifice were visualized and appeared normal. Prep was excellent. Mucosa of the cecum, ascending colon, transverse colon, descending colon, sigmoid colon, and rectum appeared normal. The sigmoid diverticulosis seen. Retroflexion was performed in the rectum and small internal hemorrhoids were seen. The patient tolerated the procedure well. IMPRESSION: Normal-appearing colon from rectum to cecum with no evidence of colorectal neoplasia. Scattered sigmoid diverticulosis Small internal hemorrhoids RECOMMENDATIONS: Findings of this examination were discussed with the patient as well as his family. He was advised to have a repeat screening colonoscopy in 10 years.
[2018-12-31 10:43] VITALS: RESP 16
[2018-12-31 11:13] VITALS: PULSE 56
[2018-12-31 11:15] VITALS: BP 127/62
== END | disposition home or self-care (01) ==
LOC: ORWHC2ENDO 08:44
PROVIDERS: ATTEND Internal Medicine Gastroenterology
DX: Z12.11 Encounter for screening for malignant neoplasm of colon (principal); K57.30 Diverticulosis of large intestine without perforation or abscess without bleeding; K64.8 Other hemorrhoids; J44.9 Chronic obstructive pulmonary disease, unspecified; F17.210 Nicotine dependence, cigarettes, uncomplicated; Z88.8 Allergy status to other drugs, medicaments and biological substances; Z79.82 Long term (current) use of aspirin; Z79.899 Other long term (current) drug therapy
CPT/HCPCS: J2704; G0121

== ENCOUNTER 2019-03-20 09:01 | Day surgery (SDC) | payer MEDICARE, OTHER ==
[2019-03-18 13:11] VITALS: BMI 25.4
[~2019-03-20 09:01] MED LIST changes: -PROPOFOL 10 MG/ML 20 ML VIAL IV ONE
[2019-03-20 09:23] VITALS: TEMP 97.3
[2019-03-20] MEDS ORDERED: PROPOFOL 10 MG/ML 20 ML VIAL IV ONE (10:16)
[2019-03-20] MEDS ORDERED: LIDOCAINE 1% INJ 10MG/ML (20 ML MDV) ONE (10:16)
--- NOTE | 2019-03-20 10:42 | P.PCN ---
Date of Procedure: 03/20/19 Procedure(s) Performed: BRIEF HISTORY: Patient is a 69-year-old, pleasant, white male scheduled for an upper endoscopy as a part of screening for esophageal varices. Patient was diagnosed with cirrhosis of the liver 3 years ago. PROCEDURE PERFORMED: Esophagogastroduodenoscopy with biopsy. PREOPERATIVE DIAGNOSIS: Cirrhosis of the liver/screening for esophageal varices. IV sedation per anesthesia. PROCEDURE: After informed consent was obtained, the patient was brought into the endoscopy unit. IV sedation was administered by Anesthesia under continuous monitoring. Initially the Olympus GIF-140 video endoscope was inserted into the mouth. Esophagus intubated without any difficulty. It was gradually advanced into the stomach and duodenum and carefully examined. The bulb and the second part of the duodenum appeared normal. The scope at this time was withdrawn to the stomach, adequately insufflated with air, and upon careful examination, mucosa of the antrum, body, cardia and the fundus had changes consistent with portal hypertensive gastropathy. Biopsies were done from the antrum of the stomach.. The scope was then withdrawn into the esophagus. The GE junction was located at 39 cm from the incisors. Small distal esophageal varices seen. The esophagus appeared normal. There were no erosions or ulcerations seen and the patient tolerated the procedure well. IMPRESSION: 1. Small esophageal varices. 2. Portal hypertensive gastropathy. RECOMMENDATIONS: The findings of this examination were discussed with the patient as well as his family. He was advised to follow with the biopsy results. He will be seen in office in 3-4 weeks..
[2019-03-20 10:49] VITALS: BP 174/82; PULSE 52; RESP 16
== END 2019-03-20 11:11 | disposition home or self-care (01) ==
LOC: ORWHC2ENDO 09:01
PROVIDERS: ATTEND Internal Medicine Gastroenterology
DX: K29.50 Unspecified chronic gastritis without bleeding (principal); I85.00 Esophageal varices without bleeding; K74.60 Unspecified cirrhosis of liver; K76.6 Portal hypertension; K31.89 Other diseases of stomach and duodenum; I25.10 Atherosclerotic heart disease of native coronary artery without angina pectoris; I10 Essential (primary) hypertension; J44.9 Chronic obstructive pulmonary disease, unspecified; F17.200 Nicotine dependence, unspecified, uncomplicated; Z79.82 Long term (current) use of aspirin; Z79.899 Other long term (current) drug therapy; Z86.19 Personal history of other infectious and parasitic diseases; Z79.891 Long term (current) use of opiate analgesic; Z98.890 Other specified postprocedural states
CPT/HCPCS: 88305; 43239; J2001; J2704

== ENCOUNTER 2019-07-28 15:57 | Emergency (ER) | payer MEDICARE, OTHER ==
[2019-07-28 16:38] VITALS: TEMP 98.5
[2019-07-28] MEDS ORDERED: hydrALAZINE HCL 20 MG/ML 1 ML VIAL IVP STA (17:08)
--- NOTE | 2019-07-28 17:13 | ED ---
General Adult HPI - General Chief complaint: Recheck/Abnormal Lab/Rx Stated complaint: abn labs Time Seen by Provider: 07/28/19 16:40 Source: patient, RN notes reviewed, old records reviewed Mode of arrival: ambulatory Limitations: no limitations - History of Present Illness Initial comments: This is a 69-year-old male who presents emergency Department stating he has been weak all day and he got a call from his doctor stating that his hemoglobin dropp ed from 10.1 in June to today at 7.8. Patient states he felt fine yesterday but today he definitely felt weaker and had a lack of energy. Patient denies any shortness of breath or chest pain. Patient denies any recent fever chills or cough. Patient denies any lightheadedness or dizziness. Patient denies any abdominal pain patient states he has had black stools PEEP was told it was from the iron. Patient has had no changes bowel movements. Patient denies any abdominal pain. - Related Data Home Medications Medication Instructions Recorded Confirmed Losartan Potassium [Cozaar] 100 mg PO QAM 08/06/14 03/18/19 amLODIPine [Norvasc] 10 mg PO QAM 08/06/14 03/18/19 Aspirin 81 mg PO DAILY 08/02/16 03/18/19 Colchicine 0.6 mg PO DAILY PRN 08/02/16 03/18/19 Cyclobenzaprine [Flexeril] 10 mg PO TID PRN 08/02/16 03/18/19 Nitroglycerin Sl Tabs [Nitrostat] 0.4 mg SUBLINGUAL Q5M PRN 08/02/16 03/18/19 Cholecalciferol [Vitamin D3 (25 1,000 unit PO DAILY 08/20/16 03/18/19 Mcg = 1000 Iu)] Budesonide [Pulmicort] 0.5 mg INHALATION BID 08/31/18 03/18/19 Hydrocodone/Acetaminophen [[place] 1 tab PO TID PRN 08/31/18 03/18/19 10-325] Montelukast Sodium [Singulair] 10 mg PO HS 08/31/18 03/18/19 Tiotropium 18 Mcg/Puff [Spiriva] 1 puff INHALATION QAM 08/31/18 03/18/19 Albuterol Nebulized [Ventolin 2.5 mg INHALATION TID PRN 11/17/18 03/18/19 Nebulized] Omalizumab [Xolair] 0 mg SQ Q14D 11/17/18 03/18/19 Ferrous Sulfate [Feosol] 325 mg PO DAILY 12/29/18 03/18/19 Hydrochlorothiazide [Hydrodiuril] 25 mg PO DAILY 03/18/19 03/18/19 Potassium Chloride [Klor-Con 10] 10 meq PO DAILY 03/18/19 03/18/19 Allergies Allergy/AdvReac Type Severity Reaction Status Date / Time No Known Allergies Allergy Verified 07/28/19 16:38 Review of Systems ROS Statement: Those systems with pertinent positive or pertinent negative responses have been documented in the HPI. ROS Other: All systems not noted in ROS Statement are negative. Past Medical History Past Medical History: Cancer, Chest Pain / Angina, COPD, Hyperlipidemia, Hypertension, Liver Disease, Musculoskeletal Disorder Additional Past Medical History / Comment(s): HX OF HEPATITIS C WITH TX THAT ENDED IN MAY 2015,hepatocellular carcinoma,LOW IRON (UNSURE IF CAUSED BY HEPATITIS TX), BACK PAIN, HERNIATED DISCS, SKIN CANCER, History of Any Multi-Drug Resistant Organisms: None Reported Past Surgical History: Back Surgery, Hernia Repair, Orthopedic Surgery Additional Past Surgical History / Comment(s): liver ablation done at [facility] or tx of hepatocellular carcinoma,hemorrhoids ,back surgery, cataract, skin cancer, inguinal hernia, abdominal hernia, left shoulder, right wrist, growth removed vocal cord, COLONOSCOPY Past Anesthesia/Blood Transfusion Reactions: No Reported Reaction Additional Past Anesthesia/Blood Transfusion Reaction / Comment(s): no hx blood transfusion Past Psychological History: No Psychological Hx Reported Smoking Status: Current every day smoker Past Alcohol Use History: None Reported Past Drug Use History: None Reported - Past Family History Father Family Medical History: Cancer General Exam - General Exam Comments Initial Comments: GENERAL: Patient is well-developed and well-nourished. Patient is nontoxic and well-hydrated and is in mild distress. ENT: Neck is soft and supple. No significant lymphadenopathy is noted. Oropharynx is clear. Moist mucous membranes. Neck has full range of motion without eliciting any pain. EYES: The sclera were anicteric and conjunctiva were pink and moist. Extraocular movements were intact and pupils were equal round and reactive to light. Eyelids were unremarkable. PULMONARY: Unlabored respirations. Good breath sounds bilaterally. No audible rales rhonchi or wheezing was noted. CARDIOVASCULAR: There is a regular rate and rhythm without any murmurs gallops or rubs. ABDOMEN: Soft and nontender with normal bowel sounds. No palpable organomegaly was noted. There is no palpable pulsatile mass. SKIN: Skin is clear with no lesions or rashes and otherwise unremarkable. RECTAL: Patient's rectal exam did not produce much stool what I did see was brown. Hemoccult was sent NEUROLOGIC: Patient is alert and oriented x3. Cranial nerves II through XII are grossly intact. Motor and sensory are also intact. Normal speech, volume and content. Symmetrical smile. MUSCULOSKELETAL: Normal extremities with adequate strength and full range of motion. No lower e xtremity swelling or edema. No calf tenderness. LYMPHATICS: No significant lymphadenopathy is noted PSYCHIATRIC: Normal psychiatric evaluation. Limitations: no limitations Course Vital Signs 07/28/19 07/28/19 07/28/19 16:37 16:47 17:30 Temperature 98.5 F Pulse Rate 67 70 Respiratory 20 16 Rate Blood Pressure 177/70 159/69 O2 Sat by Pulse 98 98 95 Oximetry Medical Decision Making - Medical Decision Making Patient's hemoglobin was 8.0 in June was 10.1. Patient states he did feel tired today however he did not want to stay in the hospital. I indicated the patient I recommended that he stated he did not have anyone to watch his dog any said he would come back if any symptoms worsened otherwise to follow-up with his own doctor. Patient agreed to sign out AMA. He did understand the consequences of going home AGAINST MEDICAL ADVICE. EKG showed normal sinus rhythm at 60 bpm DC interval 180 [place] is 90 QT interval 436 QTC is 442. - Lab Data Result diagrams: 07/28/19 17:00 07/28/19 17:00 Lab Results 07/28/19 07/28/19 07/28/19 Range/Units 17:00 17:00 17:00 WBC 2.5 L (3.8-10.6) k/uL RBC 3.09 L (4.30-5.90) m/uL Hgb 8.0 L (13.0-17.5) gm/dL Hct 25.6 L (39.0-53.0) % MCV 82.7 (80.0-100.0) fL MCH 26.0 (25.0-35.0) pg MCHC 31.4 (31.0-37.0) g/dL RDW 16.0 H (11.5-15.5) % Plt Count 98 L (150-450) k/uL Neutrophils % 74 % Lymphocytes % 13 % Monocytes % 7 % Eosinophils % 4 % Basophils % 1 % Neutrophils # 1.9 (1.3-7.7) k/uL Lymphocytes # 0.3 L (1.0-4.8) k/uL Monocytes # 0.2 (0-1.0) k/uL Eosinophils # 0.1 (0-0.7) k/uL Basophils # 0.0 (0-0.2) k/uL Hypochromasia Marked Poikilocytosis Slight PT 9.6 (9.0-12.0) sec INR 0.9 (<1.2) APTT 21.6 L (22.0-30.0) sec Sodium 138 (137-145) mmol/L Potassium 3.9 (3.5-5.1) mmol/L Chloride 106 (98-107) mmol/L Carbon Dioxide 24 (22-30) mmol/L Anion Gap 8 mmol/L BUN 33 H (9-20) mg/dL Creatinine 1.72 H (0.66-1.25) mg/dL Est GFR (CKD-EPI)AfAm 46 (>60 ml/min/1.73 sqM) Est GFR (CKD-EPI)NonAf 40 (>60 ml/min/1.73 sqM) Glucose 96 (74-99) mg/dL Calcium 8.8 (8.4-10.2) mg/dL Total Bilirubin 0.2 (0.2-1.3) mg/dL AST 25 (17-59) U/L ALT 15 (4-49) U/L Alkaline Phosphatase 78 (38-126) U/L Total Protein 6.8 (6.3-8.2) g/dL Albumin 3.9 (3.5-5.0) g/dL Stool Occult Blood (Negative) Blood Type Blood Type Confirm Blood Type Recheck Bld Type Recheck Status Antibody Screen Spec Expiration Date 07/28/19 07/28/19 07/28/19 Range/Units 17:00 17:04 17:07 WBC (3.8-10.6) k/uL RBC (4.30-5.90) m/uL Hgb (13.0-17.5) gm/dL Hct (39.0-53.0) % MCV (80.0-100.0) fL MCH (25.0-35.0) pg MCHC (31.0-37.0) g/dL RDW (11.5-15.5) % Plt Count (150-450) k/uL Neutrophils % % Lymphocytes % % Monocytes % % Eosinophils % % Basophils % % Neutrophils # (1.3-7.7) k/uL Lymphocytes # (1.0-4.8) k/uL Monocytes # (0-1.0) k/uL Eosinophils # (0-0.7) k/uL Basophils # (0-0.2) k/uL Hypochromasia Poikilocytosis PT (9.0-12.0) sec INR (<1.2) APTT (22.0-30.0) sec Sodium (137-145) mmol/L Potassium (3.5-5.1) mmol/L Chloride (98-107) mmol/L Carbon Dioxide (22-30) mmol/L Anion Gap mmol/L BUN (9-20) mg/dL Creatinine (0.66-1.25) mg/dL Est GFR (CKD-EPI)AfAm (>60 ml/min/1.73 sqM) Est GFR (CKD-EPI)NonAf (>60 ml/min/1.73 sqM) Glucose (74-99) mg/dL Calcium (8.4-10.2) mg/dL Total Bilirubin (0.2-1.3) mg/dL AST (17-59) U/L ALT (4-49) U/L Alkaline Phosphatase (38-126) U/L Total Protein (6.3-8.2) g/dL Albumin (3.5-5.0) g/dL Stool Occult Blood Negative (Negative) Blood Type O Positive Blood Type Confirm O Positive Blood Type Recheck No Previous Record Bld Type Recheck Status CABO Indicated Antibody Screen NEGATIVE Spec Expiration Date 07/31/2019 - 2299 Disposition Clinical Impression: Anemia Disposition: Left Against Medical Advice Instructions (If sedation given, give patient instructions): Anemia (ED) Referrals: Rajesh Workman MD [Primary Care Provider] - 1-2 days Time of Disposition: 18:33
[2019-07-28 17:19] LABS: Basophils % (A) 1 %; Eosinophils # (A) 0.1 k/uL (0-0.7); Eosinophils % (A) 4 %; HCT 25.6 % (39.0-53.0); Hypochromasia Marked; Lymphocytes # (A) 0.3 k/uL (1.0-4.8); Lymphocytes % (A) 13 %; MCHC 31.4 g/dL (31.0-37.0); MCV 82.7 fL (80.0-100.0); Mean Platelet Volume 10.1; Monocytes # (A) 0.2 k/uL (0-1.0); Monocytes % (A) 7 %; Neutrophils # (A) 1.9 k/uL (1.3-7.7); Neutrophils % (A) 74 %; Poikilocytosis Slight; RBC 3.09 m/uL (4.30-5.90); WBC 2.5 k/uL (3.8-10.6)
[2019-07-28 17:23] LABS: Platelet Count 98 k/uL (150-450)
[2019-07-28 17:34] LABS: Albumin 3.9 g/dL (3.5-5.0); Calcium 8.8 mg/dL (8.4-10.2); Potassium 3.9 mmol/L (3.5-5.1); Total Bilirubin 0.2 mg/dL (0.2-1.3); Total Protein 6.8 g/dL (6.3-8.2)
[2019-07-28 17:36] LABS: INR 0.9 (<1.2); Partial Thromboplastin Time 21.6 sec (22.0-30.0); Prothrombin Time 9.6 sec (9.0-12.0)
[2019-07-28 17:54] VITALS: BP 159/69; PULSE 70; RESP 16
== END 2019-07-28 18:41 | disposition left against medical advice (07) ==
LOC: EC 15:57
DX: D64.9 Anemia, unspecified (principal); I10 Essential (primary) hypertension; J44.9 Chronic obstructive pulmonary disease, unspecified; F17.200 Nicotine dependence, unspecified, uncomplicated; Z79.51 Long term (current) use of inhaled steroids; Z79.899 Other long term (current) drug therapy; Z85.05 Personal history of malignant neoplasm of liver
CPT/HCPCS: 36415; 93005; 86900; 86901; 80053; 85025; 85610; 85730; 86850; 82272; 99284; 96374; J0360

== ENCOUNTER 2019-07-29 09:08 | Emergency (ER) | payer MEDICARE, OTHER ==
[2019-07-29 09:16] VITALS: TEMP 98.2
[2019-07-29] MEDS ORDERED: PANTOPRAZOLE 40 MG/10 ML VIAL IVP STA (09:37)
--- NOTE | 2019-07-29 09:40 | ED ---
General Adult HPI - General Chief complaint: Recheck/Abnormal Lab/Rx Stated complaint: Lab recheck/revisit Time Seen by Provider: 07/29/19 09:15 Source: patient, RN notes reviewed Mode of arrival: ambulatory Limitations: no limitations - History of Present Illness Initial comments: Patient is a pleasant 69-year-old male presenting to the emergency Department with fatigue and concerns for low hemoglobin. Patient states his hemoglobin a month ago was 11. Patient states his blood work was checked 2 days ago and called yesterday with hemoglobin of 7.8. Patient states he came the emergency department and it was 8. Patient states he had to go home last night to take care of his dog. Patient states he has been having some generalized weakness and fatigue, worsening past couple of days, worse today. Patient does get some mild shortness of breath with exertion. Patient has not noticed any bleeding. Patient states he does sometimes get dark stools from taking oral iron. - Related Data Home Medications Medication Instructions Recorded Confirmed Losartan Potassium [Cozaar] 100 mg PO DAILY 08/06/14 07/29/19 amLODIPine [Norvasc] 10 mg PO DAILY 08/06/14 07/29/19 Aspirin 81 mg PO DAILY 08/02/16 07/29/19 Colchicine 1.2 mg PO DAILY PRN 08/02/16 07/29/19 Cyclobenzaprine [Flexeril] 10 mg PO HS PRN 08/02/16 07/29/19 Nitroglycerin Sl Tabs [Nitrostat] 0.4 mg SUBLINGUAL Q5M PRN 08/02/16 07/29/19 Cholecalciferol [Vitamin D3 (25 1,000 unit PO DAILY 08/20/16 07/29/19 Mcg = 1000 Iu)] Budesonide [Pulmicort] 2 ml INHALATION BID 08/31/18 07/29/19 Hydrocodone/Acetaminophen [[place] 1 tab PO QID PRN 08/31/18 07/29/19 10-325] Montelukast Sodium [Singulair] 10 mg PO DAILY 08/31/18 07/29/19 Tiotropium 18 Mcg/Puff [Spiriva] 2 puff INHALATION DAILY 08/31/18 07/29/19 Albuterol Nebulized [Ventolin 3 ml INHALATION BID 11/17/18 07/29/19 Nebulized] Ferrous Sulfate [Feosol] 325 mg PO DAILY 12/29/18 07/29/19 Hydrochlorothiazide [Hydrodiuril] 12.5 mg PO DAILY 03/18/19 07/29/19 Potassium Chloride [Klor-Con 10] 10 meq PO DAILY 03/18/19 07/29/19 Albuterol Inhaler [Ventolin Hfa 2 puff INHALATION RT-QID PRN 07/29/19 07/29/19 Inhaler] Cyanocobalamin (Vitamin B-12) 1,000 mcg PO DAILY 07/29/19 07/29/19 [Vitamin B-12] hydrALAZINE HCL 50 mg PO Q8H 07/29/19 07/29/19 Allergies Allergy/AdvReac Type Severity Reaction Status Date / Time No Known Allergies Allergy Verified 07/29/19 09:16 Review of Systems ROS Statement: Those systems with pertinent positive or pertinent negative responses have been documented in the HPI. ROS Other: All systems not noted in ROS Statement are negative. Constitutional: Denies: fever Eyes: Denies: eye pain ENT: Denies: ear pain Respiratory: Denies: cough Cardiovascular: Denies: chest pain Endocrine: Reports: fatigue Gastrointestinal: Denies: abdominal pain Genitourinary: Denies: dysuria Musculoskeletal: Denies: back pain Skin: Denies: lesions Neurological: Denies: confusion Past Medical History Past Medical History: Cancer, Chest Pain / Angina, COPD, Hyperlipidemia, Hypertension, Liver Disease, Musculoskeletal Disorder Additional Past Medical History / Comment(s): HX OF HEPATITIS C , hepatocellular carcinoma, LOW IRON , BACK PAIN, HERNIATED DISCS, SKIN CANCER, History of Any Multi-Drug Resistant Organisms: None Reported Past Surgical History: Back Surgery, Hernia Repair, Orthopedic Surgery Additional Past Surgical History / Comment(s): liver ablation done at [place] for tx of hepatocellular carcinoma,hemorrhoids ,back surgery, cataract, skin cancer, inguinal hernia, abdominal hernia, left shoulder, right wrist, growth removed vocal cord, COLONOSCOPY Past Anesthesia/Blood Transfusion Reactions: No Reported Reaction Additional Past Anesthesia/Blood Transfusion Reaction / Comment(s): no hx blood transfusion Past Psychological History: No Psychological Hx Reported Smoking Status: Current every day smoker Past Alcohol Use History: None Reported Past Drug Use History: None Reported - Past Family History Father Family Medical History: Cancer General Exam Limitations: no limitations General appearance: alert, in no apparent distress Head exam: Present: normocephalic Eye exam: Present: normal appearance, PERRL ENT exam: Present: normal oropharynx Neck exam: Present: normal inspection Respiratory exam: Present: normal lung sounds bilaterally Cardiovascular Exam: Present: regular rate, normal rhythm, systolic murmur GI/Abdominal exam: Present: soft, normal bowel sounds. Absent: distended, tenderness, pulsatile mass Extremities exam: Present: normal inspection Neurological exam: Present: alert Psychiatric exam: Present: normal affect, normal mood Skin exam: Present: normal color Course Vital Signs 07/29/19 09:12 Temperature 98.2 F Pulse Rate 79 Respiratory 18 Rate Blood Pressure 170/69 O2 Sat by Pulse 96 Oximetry Medical Decision Making - Medical Decision Making Patient reevaluated and resting comfortably in bed. Patient updated on results. Patient offered admission however refuses. Patient states he does see Dr. Guy and does have known chronic kidney disease as well and sees a specialist at [facility] for that. Patient is specifically updated on nodule on chest x-ray and need for further evaluation with this. - Lab Data Result diagrams: 07/29/19 09:26 07/29/19 09:26 Lab Results 07/29/19 07/29/19 07/29/19 Range/Units 09:26 09:26 09:26 WBC 3.8 (3.8-10.6) k/uL RBC 3.47 L (4.30-5.90) m/uL Hgb 8.6 L (13.0-17.5) gm/dL Hct 28.5 L (39.0-53.0) % MCV 82.0 (80.0-100.0) fL MCH 24.8 L (25.0-35.0) pg MCHC 30.3 L (31.0-37.0) g/dL RDW 16.1 H (11.5-15.5) % Plt Count 101 L (150-450) k/uL Neutrophils % 82 % Lymphocytes % 8 % Monocytes % 6 % Eosinophils % 2 % Basophils % 0 % Neutrophils # 3.1 (1.3-7.7) k/uL Lymphocytes # 0.3 L (1.0-4.8) k/uL Monocytes # 0.2 (0-1.0) k/uL Eosinophils # 0.1 (0-0.7) k/uL Basophils # 0.0 (0-0.2) k/uL Hypochromasia Marked Poikilocytosis Slight Anisocytosis Slight PT 9.9 (9.0-12.0) sec INR 0.9 (<1.2) APTT 22.8 (22.0-30.0) sec Sodium 139 (137-145) mmol/L Potassium 4.0 (3.5-5.1) mmol/L Chloride 106 (98-107) mmol/L Carbon Dioxide 23 (22-30) mmol/L Anion Gap 10 mmol/L BUN 30 H (9-20) mg/dL Creatinine 1.72 H (0.66-1.25) mg/dL Est GFR (CKD-EPI)AfAm 46 (>60 ml/min/1.73 sqM) Est GFR (CKD-EPI)NonAf 40 (>60 ml/min/1.73 sqM) Glucose 138 H (74-99) mg/dL Calcium 9.0 (8.4-10.2) mg/dL Total Bilirubin 0.4 (0.2-1.3) mg/dL AST 25 (17-59) U/L ALT 16 (4-49) U/L Alkaline Phosphatase 65 (38-126) U/L Total Protein 7.0 (6.3-8.2) g/dL Albumin 4.0 (3.5-5.0) g/dL Stool Occult Blood (Negative) Coronavirus (PCR) (Not Detectd) 07/29/19 07/29/19 Range/Units 09:26 09:44 WBC (3.8-10.6) k/uL RBC (4.30-5.90) m/uL Hgb (13.0-17.5) gm/dL Hct (39.0-53.0) % MCV (80.0-100.0) fL MCH (25.0-35.0) pg MCHC (31.0-37.0) g/dL RDW (11.5-15.5) % Plt Count (150-450) k/uL Neutrophils % % Lymphocytes % % Monocytes % % Eosinophils % % Basophils % % Neutrophils # (1.3-7.7) k/uL Lymphocytes # (1.0-4.8) k/uL Monocytes # (0-1.0) k/uL Eosinophils # (0-0.7) k/uL Basophils # (0-0.2) k/uL Hypochromasia Poikilocytosis Anisocytosis PT (9.0-12.0) sec INR (<1.2) APTT (22.0-30.0) sec Sodium (137-145) mmol/L Potassium (3.5-5.1) mmol/L Chloride (98-107) mmol/L Carbon Dioxide (22-30) mmol/L Anion Gap mmol/L BUN (9-20) mg/dL Creatinine (0.66-1.25) mg/dL Est GFR (CKD-EPI)AfAm (>60 ml/min/1.73 sqM) Est GFR (CKD-EPI)NonAf (>60 ml/min/1.73 sqM) Glucose (74-99) mg/dL Calcium (8.4-10.2) mg/dL Total Bilirubin (0.2-1.3) mg/dL AST (17-59) U/L ALT (4-49) U/L Alkaline Phosphatase (38-126) U/L Total Protein (6.3-8.2) g/dL Albumin (3.5-5.0) g/dL Stool Occult Blood Negative (Negative) Coronavirus (PCR) Not Detected (Not Detectd) - Radiology Data Radiology results: image reviewed (Chest x-ray questions pulmonary nodule secondary to nodular density overlying lower thoracic spine region.) Disposition Clinical Impression: Anemia Disposition: HOME SELF-CARE Condition: Stable Instructions (If sedation given, give patient instructions): Anemia (ED) Additional Instructions: Please follow-up with primary care physician in the next couple of days for recheck. Have primary care physician review reports from today putting chest x- ray and further evaluate for nodule. Please also follow-up again with Dr. Guy in the next couple of days for further testing. Return for increased fatigue or weakness, shortness of breath, bleeding, worsening or changing symptoms or other concerns. Is patient prescribed a controlled substance at d/c from ED?: No Referrals: Catracho Coon III, MD [Primary Care Provider] - 1-2 days Gopi Guy MD [STAFF PHYSICIAN] - 1-2 days Time of Disposition: 11:06
--- NOTE | 2019-07-29 09:58 | XR ---
EXAMINATION TYPE: XR chest 2V DATE OF EXAM: 07/29/2019 COMPARISON: 08/31/2018 HISTORY: Shortness of breath and fatigue TECHNIQUE: Frontal and lateral views of the chest are obtained. FINDINGS: There is pulmonary hyperinflation of underlying COPD. No new focal consolidation, pleural effusion or pneumothorax. However there is a new rounded density over the lower thoracic spine at the posterior vertebral margin and pedicle junction marked on the lateral view. Mild degenerative change of the spine and postsurgical change of the left shoulder that is partially visualized. There is tor tuosity of the descending thoracic aorta. Remaining cardiomediastinal silhouette is nonenlarged. IMPRESSION: 1. No acute cardiopulmonary process. 2. Nodular density overlying the lower thoracic spine on the lateral view could represent a pulmonary nodule. Follow-up nonemergent chest CT is recommended in this patient with underlying COPD.
[2019-07-29 10:06] LABS: Anisocytosis Slight; Basophils % (A) 0 %; Eosinophils # (A) 0.1 k/uL (0-0.7); Eosinophils % (A) 2 %; HCT 28.5 % (39.0-53.0); HGB 8.6 gm/dL (13.0-17.5); Hypochromasia Marked; Lymphocytes # (A) 0.3 k/uL (1.0-4.8); Lymphocytes % (A) 8 %; MCH 24.8 pg (25.0-35.0); MCHC 30.3 g/dL (31.0-37.0); Mean Platelet Volume 8.9; Monocytes # (A) 0.2 k/uL (0-1.0); Monocytes % (A) 6 %; Neutrophils # (A) 3.1 k/uL (1.3-7.7); Neutrophils % (A) 82 %; Platelet Count 101 k/uL (150-450); Poikilocytosis Slight; RBC 3.47 m/uL (4.30-5.90); RDW 16.1 % (11.5-15.5); WBC 3.8 k/uL (3.8-10.6)
[2019-07-29 10:17] LABS: INR 0.9 (<1.2); Partial Thromboplastin Time 22.8 sec (22.0-30.0); Prothrombin Time 9.9 sec (9.0-12.0)
[2019-07-29 10:18] LABS: Total Bilirubin 0.4 mg/dL (0.2-1.3)
[2019-07-29 11:13] VITALS: BP 132/79; PULSE 88; RESP 16
== END 2019-07-29 11:12 | disposition home or self-care (01) ==
LOC: EC 09:08
DX: Z03.818 Encounter for observation for suspected exposure to other biological agents ruled out (principal); I12.9 Hypertensive chronic kidney disease with stage 1 through stage 4 chronic kidney disease, or unspecified chronic kidney disease; N18.9 Chronic kidney disease, unspecified; D63.1 Anemia in chronic kidney disease; R91.8 Other nonspecific abnormal finding of lung field; J44.9 Chronic obstructive pulmonary disease, unspecified; F17.200 Nicotine dependence, unspecified, uncomplicated; Z85.828 Personal history of other malignant neoplasm of skin; Z85.05 Personal history of malignant neoplasm of liver; Z79.82 Long term (current) use of aspirin; Z79.51 Long term (current) use of inhaled steroids; Z79.899 Other long term (current) drug therapy; Z53.29 Procedure and treatment not carried out because of patient's decision for other reasons
CPT/HCPCS: 36415; 80053; 85025; 85610; 85730; 82272; 87635; 71046; 99283; 96374; C9113

== ENCOUNTER → 2019-11-26 | Outpatient (CLI) | payer MEDICARE, OTHER ==
--- NOTE | 2019-11-27 11:57 | ECHOF ---
Referral Reason:I35.0 Nonrheumatic aortic (valve) stenosis MEASUREMENTS -------- HEIGHT: 182.9 cm WEIGHT: 83.9 kg BP: RVIDd: 3.7 cm (< 3.3) IVSd: 1.2 cm (0.6 - 1.1) LVIDd: 5.5 cm (3.9 - 5.3) LVPWd: 1.0 cm (0.6 - 1.1) EDV(Teich): 150 ml IVSs: 1.8 cm LVIDs: 3.6 cm LVPWs: 2.3 cm %IVS Thck: 52 % ESV(Teich): 54 ml EF(Teich): 64 % %FS: 35 % SV(Teich): 97 ml LA Diam: 5.1 cm (2.7 - 3.8) LALs A4C: 5.0 cm LAAs A4C: 20.2 cm LAESV A-L A4C: 69 ml LAESV MOD A4C: 67 ml LALs A2C: 5.5 cm LAAs A2C: 22.2 cm LAESV A-L A2C: 76 ml LAESV MOD A2C: 74 ml LAESV(A-L): 76 ml LAESV Index (A-L): 37.11 ml/m MV EXCURSION: 16.963 mm (> 18.000) MV EF SLOPE: 29 mm/s (70 - 150) EPSS: 0.9 cm MV E Aris: 0.50 m/s MV DecT: 389 ms MV Dec Pacific: 1.3 m/s MV A Aris: 0.95 m/s MV E/A Ratio: 0.52 MV PHT: 113 ms LVOT Vmax: 1.39 m/s LVOT maxP.72 mmHg LVOT Vmax: 1.41 m/s LVOT Vmean: 0.90 m/s LVOT maxP.96 mmHg LVOT meanP.74 mmHg LVOT Env.Ti: 337 ms LVOT VTI: 30.2 cm AV Vmax: 3.52 m/s AV maxP.82 mmHg AV Vmax: 3.53 m/s AV Vmean: 2.13 m/s AV maxP.99 mmHg AV meanP.39 mmHg AV Env.Ti: 309 ms AV VTI: 65.9 cm AR Vmax: 3.41 m/s AR maxP.57 mmHg AR PHT: 518 ms AR Dec Time: 1787 ms AR Dec Pacific: 1.9 m/s TR Vmax: 2.03 m/s TR maxP.47 mmHg RAP: 5.00 mmHg RVSP: 21.47 mmHg FINDINGS -------- Sinus rhythm. This was a technically good study. The left ventricular size is normal. There is mild concentric left ventricular hypertrophy. Overa ll left ventricular systolic function is low-normal with, an EF between 50 - 55 %. The right ventricle is normal in size. The left atrium is moderately dilated. LA is moderately dilated 34-39 ml/m2 The right atrial size is normal. There is moderate aortic regurgitation. There is moderate aortic stenosis present. Peak/mean grad ient across the Aortic Valve is 49.99mmHg / 21.39mmHg. Can't exclude Bicuspid valve vs fused cusp. Mild mitral annular calcification present. Mild mitral regurgitation is present. Mild tricuspid regurgitation present. Right ventricular systolic pressure is normal at < 35 mmHg. Trace/mild (physiologic) pulmonic regurgitation. The aortic root size is normal. There is no pericardial effusion. CONCLUSIONS -------- 1. The left ventricular size is normal. 2. There is mild concentric left ventricular hypertrophy. 3. Overall left ventricular systolic function is low-normal with, an EF between 50 - 55 %. 4. The right ventricle is normal in size. 5. The left atrium is moderately dilated. 6. LA is moderately dilated 34-39 ml/m2 7. The right atrial size is normal. 8. There is moderate aortic regurgitation. 9. There is moderate aortic stenosis present. 10. Peak/mean gradient across the Aortic Valve is 49.99mmHg / 21.39mmHg. 11. Can't exclude Bicuspid valve vs fused cusp. 12. Mild mitral annular calcification present. 13. Mild mitral regurgitation is present. 14. Mild tricuspid regurgitation present. 15. Right ventricular systolic pressure is normal at < 35 mmHg. 16. Trace/mild (physiologic) pulmonic regurgitation. PRODUCT INSPECTION SUPERVISOR: Mary Mendoza RDCS
== END | disposition home or self-care (01) ==
LOC: RADECHMAIN 13:39
PROVIDERS: ATTEND Family Medicine
DX: I08.3 Combined rheumatic disorders of mitral, aortic and tricuspid valves (principal)
CPT/HCPCS: 93306

== ENCOUNTER → 2020-03-07 | Outpatient (CLI) | payer MEDICARE, OTHER ==
--- NOTE | 2020-03-07 11:04 | US ---
EXAMINATION TYPE: US kidneys/renal and bladder DATE OF EXAM: 03/07/2020 COMPARISON: NONE CLINICAL HISTORY: 70-year-old male N18.3 Chronic Kidney Disease. TECHNIQUE: Multiple sonographic images of the kidneys and bladder are obtained. FINDINGS: EXAM MEASUREMENTS: Right Kidney: 10.2 x 5.4 x 5.0 cm Left Kidney: 11.4 x 5.2 x 4.4 cm Right Kidney: Multiple subcentimeter cystic areas. Left Kidney: Multiple cystic areas seen largest 1.5 x 1.1 x 1.3 cm. No hydronephrosis on either side. Bladder: wnl Bilateral Jets seen: Yes IMPRESSION: 1. Small bilateral renal cortical cysts on both sides measuring up to 1.5 cm. 2. No hydronephrosis.
== END | disposition home or self-care (01) ==
LOC: RADUSMAIN 09:43
PROVIDERS: ATTEND Family Medicine
DX: N28.1 Cyst of kidney, acquired (principal)
CPT/HCPCS: 76770

== ENCOUNTER 2020-05-16 07:39 | Inpatient (IN) | payer MEDICARE, OTHER ==
[2020-05-16] MEDS ORDERED: NITROGLYCERIN OINT 1 INCH/GM PACKET TOPICAL STA (07:53)
[2020-05-16] MEDS ORDERED: ASPIRIN 81 MG PO STA (07:53)
--- NOTE | 2020-05-16 07:57 | ED ---
General Adult HPI - General Chief complaint: Chest Pain Stated complaint: chest pain Time Seen by Provider: 05/16/20 07:46 Source: patient, RN notes reviewed Mode of arrival: wheelchair Limitations: no limitations - History of Present Illness Initial comments: Patient is a pleasant 70-year-old male presenting to the emergency Department with complaints of chest discomfort. Onset of symptoms was this morning. Discomfort was moderate however now is mild. Discomfort feels sharp without radiation. Patient does feel a little bit short of breath. Patient was sweaty earlier. No nausea. Patient states he may have had a fever a couple of days ago. Patient has been fatigued the past few days. No leg pain or leg swelling. Patient does have history of previous tumor in his liver that was removed however now has chronic problems with his hemoglobin and white blood cell count. - Related Data Home Medications Medication Instructions Recorded Confirmed Losartan Potassium [Cozaar] 100 mg PO DAILY 08/06/14 05/16/20 amLODIPine [Norvasc] 10 mg PO DAILY 08/06/14 05/16/20 Aspirin 81 mg PO DAILY 08/02/16 05/16/20 Colchicine 0.6 mg PO DAILY PRN 08/02/16 05/16/20 Cyclobenzaprine [Flexeril] 10 mg PO HS PRN 08/02/16 05/16/20 Nitroglycerin Sl Tabs [Nitrostat] 0.4 mg SUBLINGUAL Q5M PRN 08/02/16 05/16/20 Cholecalciferol [Vitamin D3 (25 1,000 unit PO DAILY 08/20/16 05/16/20 Mcg = 1000 Iu)] Budesonide [Pulmicort] 2 ml INHALATION RT-BID 08/31/18 05/16/20 Hydrocodone/Acetaminophen [[place] 1 tab PO QID PRN 08/31/18 05/16/20 10-325] Montelukast Sodium [Singulair] 10 mg PO DAILY 08/31/18 05/16/20 Tiotropium 18 Mcg/Puff [Spiriva] 2 puff INHALATION RT-DAILY 08/31/18 05/16/20 Ferrous Sulfate [Feosol] 487.5 mg PO DAILY 12/29/18 05/16/20 Potassium Chloride [Klor-Con 10] 10 meq PO DAILY 03/18/19 05/16/20 Albuterol Inhaler [Ventolin Hfa 2 puff INHALATION RT-QID PRN 07/29/19 05/16/20 Inhaler] Omeprazole 20 mg PO BID 05/16/20 05/16/20 Allergies Allergy/AdvReac Type Severity Reaction Status Date / Time No Known Allergies Allergy Verified 05/16/20 08:54 Review of Systems ROS Statement: Those systems with pertinent positive or pertinent negative responses have been documented in the HPI. ROS Other: All systems not noted in ROS Statement are negative. Constitutional: Denies: fever Eyes: Denies: eye pain ENT: Denies: ear pain Respiratory: Denies: cough Cardiovascular: Reports: chest pain Endocrine: Reports: fatigue Gastrointestinal: Denies: abdominal pain Genitourinary: Denies: dysuria Musculoskeletal: Denies: back pain Skin: Denies: rash Neurological: Denies: headache Past Medical History Past Medical History: Cancer, Chest Pain / Angina, COPD, Hyperlipidemia, Hypertension, Liver Disease, Musculoskeletal Disorder Additional Past Medical History / Comment(s): HX OF HEPATITIS C , hepatocellular carcinoma, LOW IRON , BACK PAIN, HERNIATED DISCS, SKIN CANCER, History of Any Multi-Drug Resistant Organisms: None Reported Past Surgical History: Back Surgery, Hernia Repair, Orthopedic Surgery Additional Past Surgical History / Comment(s): liver ablation done at [place] for tx of hepatocellular carcinoma,hemorrhoids ,back surgery, cataract, skin cancer, inguinal hernia, abdominal hernia, left shoulder, right wrist, growth removed vocal cord, COLONOSCOPY Past Anesthesia/Blood Transfusion Reactions: No Reported Reaction Additional Past Anesthesia/Blood Transfusion Reaction / Comment(s): no hx blood transfusion Past Psychological History: No Psychological Hx Reported Smoking Status: Current every day smoker Past Alcohol Use History: None Reported Past Drug Use History: None Reported - Past Family History Father Family Medical History: Cancer General Exam Limitations: no limitations General appearance: alert, in no apparent distress Head exam: Present: normocephalic Eye exam: Present: normal appearance Neck exam: Present: normal inspection Respiratory exam: Present: normal lung sounds bilaterally Cardiovascular Exam: Present: tachycardia, irregular rhythm Expanded Peripheral pulses: 2+: Radial (R), Radial (L), Dorsalis Pedis (R), Dorsalis Pedis (L) GI/Abdominal exam: Present: soft. Absent: tenderness Extremities exam: Present: normal inspection. Absent: pedal edema, calf tenderness Neurological exam: Present: alert Psychiatric exam: Present: normal affect, normal mood Skin exam: Present: normal color Course Vital Signs 05/16/20 05/16/20 07:43 08:45 Temperature 99.0 F Pulse Rate 81 122 H Respiratory 18 18 Rate Blood Pressure 135/85 117/92 O2 Sat by Pulse 97 96 Oximetry EKG Findings - EKG Comments: EKG Findings:: A. fib with RVR, rate 140. QRS 96. QT 322. QTC 481. Left axis. Septal Q waves. No acute ST change. Medical Decision Making - Medical Decision Making Patient reevaluated. Heart rate 124 on Cardizem drip. Patient updated on results and plan. Case was discussed withPractitioner Maribel who will admit covering for Dr. Franks, covering for Dr. Workman.Heparin held at this time secondary to thrombocytopenia - Lab Data Result diagrams: 05/16/20 08:10 05/16/20 08:10 Lab Results 05/16/20 05/16/20 05/16/20 Range/Units 08:10 08:10 08:10 WBC 3.8 (3.8-10.6) k/uL RBC 4.89 (4.30-5.90) m/uL Hgb 13.4 (13.0-17.5) gm/dL Hct 41.0 (39.0-53.0) % MCV 83.7 (80.0-100.0) fL MCH 27.3 (25.0-35.0) pg MCHC 32.7 (31.0-37.0) g/dL RDW 15.3 (11.5-15.5) % Plt Count 68 L (150-450) k/uL MPV 9.0 Neutrophils % 84 % Lymphocytes % 8 % Monocytes % 4 % Eosinophils % 3 % Basophils % 0 % Neutrophils # 3.2 (1.3-7.7) k/uL Lymphocytes # 0.3 L (1.0-4.8) k/uL Monocytes # 0.2 (0-1.0) k/uL Eosinophils # 0.1 (0-0.7) k/uL Basophils # 0.0 (0-0.2) k/uL Manual Slide Review Performed Poikilocytosis Slight PT 10.4 (9.0-12.0) sec INR 1.0 (<1.2) APTT 24.5 (22.0-30.0) sec D-Dimer 0.69 H (<0.60) mg/L FEU Sodium 139 (137-145) mmol/L Potassium 3.5 (3.5-5.1) mmol/L Chloride 107 (98-107) mmol/L Carbon Dioxide 18 L (22-30) mmol/L Anion Gap 14 mmol/L BUN 29 H (9-20) mg/dL Creatinine 1.53 H (0.66-1.25) mg/dL Est GFR (CKD-EPI)AfAm 53 (>60 ml/min/1.73 sqM) Est GFR (CKD-EPI)NonAf 46 (>60 ml/min/1.73 sqM) Glucose 150 H (74-99) mg/dL Calcium 9.3 (8.4-10.2) mg/dL Magnesium 1.8 (1.6-2.3) mg/dL Total Bilirubin 1.0 (0.2-1.3) mg/dL AST 102 H (17-59) U/L ALT 103 H (4-49) U/L Alkaline Phosphatase 127 H (38-126) U/L Troponin I (0.000-0.034) ng/mL NT-Pro-B Natriuret Pep pg/mL Total Protein 7.2 (6.3-8.2) g/dL Albumin 4.0 (3.5-5.0) g/dL Coronavirus (PCR) (Not Detectd) 05/16/20 05/16/20 05/16/20 Range/Units 08:10 08:10 08:10 WBC (3.8-10.6) k/uL RBC (4.30-5.90) m/uL Hgb (13.0-17.5) gm/dL Hct (39.0-53.0) % MCV (80.0-100.0) fL MCH (25.0-35.0) pg MCHC (31.0-37.0) g/dL RDW (11.5-15.5) % Plt Count (150-450) k/uL MPV Neutrophils % % Lymphocytes % % Monocytes % % Eosinophils % % Basophils % % Neutrophils # (1.3-7.7) k/uL Lymphocytes # (1.0-4.8) k/uL Monocytes # (0-1.0) k/uL Eosinophils # (0-0.7) k/uL Basophils # (0-0.2) k/uL Manual Slide Review Poikilocytosis PT (9.0-12.0) sec INR (<1.2) APTT (22.0-30.0) sec D-Dimer (<0.60) mg/L FEU Sodium (137-145) mmol/L Potassium (3.5-5.1) mmol/L Chloride (98-107) mmol/L Carbon Dioxide (22-30) mmol/L Anion Gap mmol/L BUN (9-20) mg/dL Creatinine (0.66-1.25) mg/dL Est GFR (CKD-EPI)AfAm (>60 ml/min/1.73 sqM) Est GFR (CKD-EPI)NonAf (>60 ml/min/1.73 sqM) Glucose (74-99) mg/dL Calcium (8.4-10.2) mg/dL Magnesium (1.6-2.3) mg/dL Total Bilirubin (0.2-1.3) mg/dL AST (17-59) U/L ALT (4-49) U/L Alkaline Phosphatase (38-126) U/L Troponin I 0.039 H* (0.000-0.034) ng/mL NT-Pro-B Natriuret Pep 3580 pg/mL Total Protein (6.3-8.2) g/dL Albumin (3.5-5.0) g/dL Coronavirus (PCR) Not Detected (Not Detectd) - Radiology Data Radiology results: image reviewed (Chest x-ray does show concerning left lower lobe infiltrate) Critical Care Time Critical Care Time: Yes Total Critical Care Time: 31 Disposition Clinical Impression: Atrial fibrillation with RVR, Pneumonia Disposition: ADMITTED IP TO THIS HOSP Condition: Serious Is patient prescribed a controlled substance at d/c from ED?: No Referrals: Rajesh Workman MD [Primary Care Provider] - 1-2 days Decision Time: 10:09
--- NOTE | 2020-05-16 08:28 | XR ---
EXAMINATION TYPE: XR chest 2V DATE OF EXAM: 05/16/2020 COMPARISON: 07/29/2019 HISTORY: 70-year-old male with chest pain TECHNIQUE: PA and lateral views FINDINGS: Heart normal size. Mild tortuosity of the aortic knob. Hyperinflation. There is focal patchy airspace opacity in the basilar left lower lobe. No pleural effusion. Surgical staple at the left shoulder. IMPRESSION: COPD with new basilar left lower lobe infiltrate suggesting pneumonia. Follow-up after treatment to e anitaure clearance.
[2020-05-16] MEDS ORDERED: DILTIAZEM 125 MG in SODIUM CHLORIDE 0.9% 100 ML IV SCH (08:30)
[2020-05-16 08:35] LABS: Calcium 9.3 mg/dL (8.4-10.2); Magnesium 1.8 mg/dL (1.6-2.3); Potassium 3.5 mmol/L (3.5-5.1); Total Protein 7.2 g/dL (6.3-8.2)
[2020-05-16 08:53] LABS: Partial Thromboplastin Time 24.5 sec (22.0-30.0); Prothrombin Time 10.4 sec (9.0-12.0)
[2020-05-16 08:57] LABS: Basophils % (A) 0 %; Eosinophils # (A) 0.1 k/uL (0-0.7); Eosinophils % (A) 3 %; HGB 13.4 gm/dL (13.0-17.5); Lymphocytes # (A) 0.3 k/uL (1.0-4.8); Lymphocytes % (A) 8 %; MCH 27.3 pg (25.0-35.0); MCHC 32.7 g/dL (31.0-37.0); MCV 83.7 fL (80.0-100.0); Monocytes # (A) 0.2 k/uL (0-1.0); Monocytes % (A) 4 %; Neutrophils # (A) 3.2 k/uL (1.3-7.7); Neutrophils % (A) 84 %; Poikilocytosis Slight; RBC 4.89 m/uL (4.30-5.90); RDW 15.3 % (11.5-15.5); WBC 3.8 k/uL (3.8-10.6)
[2020-05-16 09:12] LABS: Platelet Count 68 k/uL (150-450)
[2020-05-16 09:33] LABS: D-Dimer 0.69 mg/L FEU (<0.60)
[2020-05-16] MEDS ORDERED: NITROGLYCERIN SL TABS 0.4 MG TAB SUBLINGUAL PRN (10:09)
[2020-05-16] MEDS ORDERED: PNEUMONIA PROTOCOL UTILIZED 1 EACH MISC PO PRN (10:09)
[2020-05-16] MEDS ORDERED: IPRATROPIUM-ALBUTEROL 3 ML NEB INHALATION PRN (10:09)
[2020-05-16] MEDS ORDERED: AZITHROMYCIN 500 MG in SODIUM CHLORIDE 0.9% 250 ML IVPB STA (10:09)
--- NOTE | 2020-05-16 12:52 | P.CRDCN ---
History of Present Illness Consult date: 05/16/20 History of present illness: CHIEF COMPLAINT: new-onset A. fib HISTORY OF PRESENT ILLNESS: This is a 70-year-old male with a past medical history significant for hypertension, COPD, chronic kidney disease, and nicotine dependence. Patient follows in the office with Dr. Pedro. We have been asked to see the patient in consultation for new onset afib. Patient examined at the bedside. Patient reports over the weekend he was experiencing shortness of breath, productive cough, and fever. He states he woke up this morning with palpitations. Patient presented to the emergency room for further evaluation. Patient was found to be in A. fib with RVR. Patient denies a history of atrial fibrillation. He was started on a Cardizem drip in the emergency room. At the time of examination he is in sinus rhythm. He denies chest pain or pressure. Reports shortness of breath with exertion. Denies dizziness or lightheadedness. Currently denies palpitations. Patient was also found to have left lower lobe pneumonia and was started on antibiotics. Patient has plavix listed as a home medication. patient states he saw Dr. Scanlon in the office last week and was prescribed 2 new medications. He believes one was for his blood pressure. Patient states he is not currently taking Plavix. Patient denies history of heart attacks in the past. He states he has never had a cardiac cath or stents placed to the heart. he denies any history of CVA or TIA. DIAGNOSTICS: EKG reveals A. fib with RVR Chest xray COPD with new basilar left lower lobe infiltrate suggesting pneumonia. Laboratory data: WBC 3.8. Hemoglobin 13.4. White count 68. D-dimer 0.69. Sodium 139. Potassium 3.5. BUN 29. Creatinine 1.53. troponin 0.039. 0.055. BNP 3580. Current home cardiac medications include carvedilol 6.25 mg twice a day, amlodipine 10 mg daily, losartan 100 mg daily, and aspirin 81 mg daily Echocardiogram completed in November 2019 revealed ejection fraction 50-55%, moderate aortic regurgitation, and moderate aortic stenosis. REVIEW OF SYSTEMS: At the time of my exam: CONSTITUTIONAL: Denies fever or chills. HEENT: Denies blurred vision, vision changes, or eye pain. Denies hemoptysis CARDIOVASCULAR: Denies chest pain, orthopnea, PND or palpitations RESPIRATORY: No shortness of breath. GASTROINTESTINAL: Denies abdominal pain. Denies nausea or vomiting. HEMATOLOGIC: Denies bleeding disorders. GENITOURINARY: Denies any blood in urine. SKIN: Denies pruitis. Denies rash. PHYSICAL EXAM: VITAL SIGNS: Reviewed. GENERAL: Well-developed in no acute distress. HEENT: Head is normocephalic. Pupils are equal, round. Sclerae anicteric. Mucous membranes of the mouth are moist. Neck supple. No JVD or thyromegaly LUNGS: Respirations even and unlabored. Lungs diminished bilaterally. HEART: Regular rate and rhythm. S1 and S2 heard. Systolic murmur noted. ABDOMEN: Soft. Nondistended. Nontender. EXTREMITIES: Normal range of motion. No clubbing or cyanosis. Peripheral pulses intact. No lower extremity edema NEUROLOGIC: Awake and alert. Oriented x 3. ASSESSMENT: Palpitations New-onset atrial fibrillation with RVR, since converted to sinus mechanism Left lower lobe pneumonia Abnormal troponin, secondary to new onset afib Hypertension Aortic stenosis Thrombocytopenia Chronic kidney disease Nicotine dependence PLAN: Obtain 2-D echo to assess cardiac structure and function Trend troponins Resume home cardiac medications including losartan Norvasc, and Coreg. Plavix listed on patient's home medication list but he states he has not been taking this. No need to resume Plavix as there is no indication for Plavix at this time. Discontinue IV Cardizem Smoking cessation recommended Continue antibiotics for pneumonia Continue telemetry monitoring Recommend anticoagulation for new onset atrial fibrillation. However patient has thrombocytopenia with platelet count of 69. Will consult hematology for ev aluation to see if we can safely start patient on anticoagulation. Further recommendations pending patient's course Nurse practitioner note has been reviewed by physician. Signing provider agrees with the documented findings, assessment, and plan of care. Past Medical History Past Medical History: Cancer, Chest Pain / Angina, COPD, Hyperlipidemia, Hypertension, Liver Disease, Musculoskeletal Disorder Additional Past Medical History / Comment(s): HX OF HEPATITIS C , hepatocellular carcinoma, LOW IRON , BACK PAIN, HERNIATED DISCS, SKIN CANCER, History of Any Multi-Drug Resistant Organisms: None Reported Past Surgical History: Back Surgery, Hernia Repair, Orthopedic Surgery Additional Past Surgical History / Comment(s): liver ablation done at [facility] for tx of hepatocellular carcinoma,hemorrhoids ,back surgery, cataract, skin cancer, inguinal hernia, abdominal hernia, left shoulder, right wrist, growth removed vocal cord, COLONOSCOPY Past Anesthesia/Blood Transfusion Reactions: No Reported Reaction Additional Past Anesthesia/Blood Transfusion Reaction / Comment(s): no hx blood transfusion Past Psychological History: No Psychological Hx Reported Smoking Status: Current every day smoker Past Alcohol Use History: None Reported Past Drug Use History: None Reported - Past Family History Father Family Medical History: Cancer Medications and Allergies Home Medications Medication Instructions Recorded Confirmed Type Losartan Potassium [Cozaar] 100 mg PO DAILY 08/06/14 05/16/20 History amLODIPine [Norvasc] 10 mg PO DAILY 08/06/14 05/16/20 History Aspirin 81 mg PO DAILY 08/02/16 05/16/20 History Colchicine 0.6 mg PO DAILY PRN 08/02/16 05/16/20 History Cyclobenzaprine [Flexeril] 10 mg PO HS PRN 08/02/16 05/16/20 History Nitroglycerin Sl Tabs [Nitrostat] 0.4 mg SUBLINGUAL Q5M PRN 08/02/16 05/16/20 History Cholecalciferol [Vitamin D3 (25 1,000 unit PO DAILY 08/20/16 05/16/20 History Mcg = 1000 Iu)] Budesonide [Pulmicort] 2 ml INHALATION RT-BID 08/31/18 05/16/20 History Hydrocodone/Acetaminophen [[place] 1 tab PO QID PRN 08/31/18 05/16/20 History 10-325] Montelukast Sodium [Singulair] 10 mg PO DAILY 08/31/18 05/16/20 History Tiotropium 18 Mcg/Puff [Spiriva] 2 puff INHALATION RT-DAILY 08/31/18 05/16/20 History Ferrous Sulfate [Feosol] 487.5 mg PO DAILY 12/29/18 05/16/20 History Potassium Chloride [Klor-Con 10] 10 meq PO DAILY 03/18/19 05/16/20 History Albuterol Inhaler [Ventolin Hfa 2 puff INHALATION RT-QID PRN 07/29/19 05/16/20 History Inhaler] Clopidogrel [Plavix] 75 mg PO DAILY 05/16/20 05/16/20 History Omeprazole 20 mg PO BID 05/16/20 05/16/20 History carvediloL [Coreg] 6.25 mg PO BID 05/16/20 05/16/20 History Allergies Allergy/AdvReac Type Severity Reaction Status Date / Time No Known Allergies Allergy Verified 05/16/20 08:54 Physical Exam Vitals: Vital Signs Temp Pulse Pulse Resp BP BP Pulse Ox 05/16/20 12:00 98.4 F 63 20 151/81 96 05/16/20 10:41 99.0 F 78 18 150/88 96 05/16/20 10:00 78 18 150/88 96 05/16/20 08:45 122 H 18 117/92 96 05/16/20 07:43 99.0 F 81 18 135/85 97 Intake and Output 05/15/20 05/16/20 05/16/20 22:59 06:59 14:59 Other: # Voids 1 Weight 86.183 kg Results 05/16/20 08:10 05/16/20 08:10 Cardiac Enzymes 05/16/20 05/16/20 05/16/20 Range/Units 08:10 08:10 10:50 AST 102 H (17-59) U/L Troponin I 0.039 H* 0.055 H* (0.000-0.034) ng/mL Coagulation 05/16/20 Range/Units 08:10 PT 10.4 (9.0-12.0) sec APTT 24.5 (22.0-30.0) sec CBC 05/16/20 Range/Units 08:10 WBC 3.8 (3.8-10.6) k/uL RBC 4.89 (4.30-5.90) m/uL Hgb 13.4 (13.0-17.5) gm/dL Hct 41.0 (39.0-53.0) % Plt Count 68 L (150-450) k/uL Comprehensive Metabolic Panel 05/16/20 Range/Units 08:10 Sodium 139 (137-145) mmol/L Potassium 3.5 (3.5-5.1) mmol/L Chloride 107 (98-107) mmol/L Carbon Dioxide 18 L (22-30) mmol/L BUN 29 H (9-20) mg/dL Creatinine 1.53 H (0.66-1.25) mg/dL Glucose 150 H (74-99) mg/dL Calcium 9.3 (8.4-10.2) mg/dL AST 102 H (17-59) U/L ALT 103 H (4-49) U/L Alkaline Phosphatase 127 H (38-126) U/L Total Protein 7.2 (6.3-8.2) g/dL Albumin 4.0 (3.5-5.0) g/dL Current Medications Generic Name Dose Route Start Last Admin Trade Name Freq PRN Reason Stop Dose Admin Albuterol/Ipratropium 3 ml 05/16/20 10:09 Ipratropium-Albuterol 3 Ml Neb INHALATION RT-Q4H PRN shortness of breath Amlodipine Besylate 10 mg 05/17/20 09:00 Amlodipine 10 Mg Tab PO DAILY RAFY Azithromycin 500 mg 05/17/20 09:00 Azithromycin 500 Mg Tab PO 05/21/20 09:01 DAILY RAFY Carvedilol 6.25 mg 05/16/20 17:30 Carvedilol 6.25 Mg Tab PO AC-BID RAFY Ceftriaxone Sodium 2 gm/ 50 mls @ 100 mls/hr 05/17/20 09:00 Sodium Chloride IVPB 05/19/20 09:01 Q24HR RAFY Losartan Potassium 100 mg 05/17/20 09:00 Losartan 50 Mg Tab PO DAILY RAFY Miscellaneous Information 1 each 05/16/20 10:09 Pneumonia Protocol Utilized 1 Each Misc PO ONCE PRN Per Protocol Nitroglycerin 0.4 mg 05/16/20 10:09 Nitroglycerin Sl Tabs 0.4 Mg Tab SUBLINGUAL Q5M PRN Chest Pain Sodium Chloride 10 ml 05/16/20 21:00 Sodium Chloride 0.9% Flush 10 Ml Syringe IV BID RAFY Intake and Output 05/15/20 05/16/20 05/16/20 22:59 06:59 14:59 Other: # Voids 1 Weight 86.183 kg Patient Weight 05/17/20 06:59 Weight 86.183 kg 05/16/20 08:10 05/16/20 08:10
[2020-05-16] MEDS ORDERED: CYANOCOBALAMIN 1,000 MCG/ML 1 ML VIAL IM ONE (13:49)
--- NOTE | 2020-05-16 14:10 | P.CONS ---
History of Present Illness - Reason for Consult Consult date: 05/16/20 anticoagulation recommendations Requesting physician: Deepthi Castellanos - Chief Complaint SOB - History of Present Illness Mr Morales is a pleasant male pt seen by Dr. Guy for B12 functional deficiency with elevated MMA for which he is on monthly B12 injections sonce 08/22. Long Hx of thrombocytopenia 2/2 chronic liver disease/ETOH cirrhosis with splenic sequestration. Baseline [place]t [place] range [id number], at least since 2014. 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 Know Hep C completing antiviral Tx in 2016. HCC treated with radiofrequency ablation only at [facility] 2017 and 2018, now followed at [facility]. Skin cancers with surgical removal, none requiring any additional treatment. He has had Xolair for chronic pulmonary conditions. He has cardiac history and is currently admitted with a-fib. He had SOB, cough and fever that were persistent and led to him coming to the ER. He is feeling a little better today, breathing is stable, no palpitations, he is tolerating oral intake. He reports hemoptysis recently, intermittently, no other bleeding to report. We were asked to see pt regarding anticoagulation but, Cardiology has decided on a different approach to pt heart conditions. Review of Systems 14 point ROS is neg except as stated in HPI Past Medical History Past Medical History: Cancer, Chest Pain / Angina, COPD, Hyperlipidemia, Hypertension, Liver Disease, Musculoskeletal Disorder Additional Past Medical History / Comment(s): HX OF HEPATITIS C , hepatocellular carcinoma, LOW IRON , BACK PAIN, HERNIATED DISCS, SKIN CANCER, History of Any Multi-Drug Resistant Organisms: None Reported Past Surgical History: Back Surgery, Hernia Repair, Orthopedic Surgery Additional Past Surgical History / Comment(s): liver ablation done at [facility] for tx of hepatocellular carcinoma,hemorrhoids ,back surgery, cataract, skin cancer, inguinal hernia, abdominal hernia, left shoulder, right wrist, growth removed vocal cord, COLONOSCOPY Past Anesthesia/Blood Transfusion Reactions: No Reported Reaction Additional Past Anesthesia/Blood Transfusion Reaction / Comm: no hx blood transfusion Past Psychological History: No Psychological Hx Reported Smoking Status: Current every day smoker Past Alcohol Use History: None Reported Past Drug Use History: None Reported - Past Family History Father Family Medical History: Cancer Medications and Allergies Home Medications Medication Instructions Recorded Confirmed Type Losartan Potassium [Cozaar] 100 mg PO DAILY 08/06/14 05/16/20 History amLODIPine [Norvasc] 10 mg PO DAILY 08/06/14 05/16/20 History Aspirin 81 mg PO DAILY 08/02/16 05/16/20 History Colchicine 0.6 mg PO DAILY PRN 08/02/16 05/16/20 History Cyclobenzaprine [Flexeril] 10 mg PO HS PRN 08/02/16 05/16/20 History Nitroglycerin Sl Tabs [Nitrostat] 0.4 mg SUBLINGUAL Q5M PRN 08/02/16 05/16/20 History Cholecalciferol [Vitamin D3 (25 1,000 unit PO DAILY 08/20/16 05/16/20 History Mcg = 1000 Iu)] Budesonide [Pulmicort] 2 ml INHALATION RT-BID 08/31/18 05/16/20 History Hydrocodone/Acetaminophen [[place] 1 tab PO QID PRN 08/31/18 05/16/20 History 10-325] Montelukast Sodium [Singulair] 10 mg PO DAILY 08/31/18 05/16/20 History Tiotropium 18 Mcg/Puff [Spiriva] 2 puff INHALATION RT-DAILY 08/31/18 05/16/20 History Ferrous Sulfate [Feosol] 487.5 mg PO DAILY 12/29/18 05/16/20 History Potassium Chloride [Klor-Con 10] 10 meq PO DAILY 03/18/19 05/16/20 History Albuterol Inhaler [Ventolin Hfa 2 puff INHALATION RT-QID PRN 07/29/19 05/16/20 History Inhaler] Clopidogrel [Plavix] 75 mg PO DAILY 05/16/20 05/16/20 History Omeprazole 20 mg PO BID 05/16/20 05/16/20 History carvediloL [Coreg] 6.25 mg PO BID 05/16/20 05/16/20 History Allergies Allergy/AdvReac Type Severity Reaction Status Date / Time No Known Allergies Allergy Verified 05/16/20 08:54 Physical Exam Vitals: Vital Signs Temp Pulse Pulse Resp BP BP Pulse Ox 05/16/20 12:00 98.4 F 63 20 151/81 96 05/16/20 10:41 99.0 F 78 18 150/88 96 05/16/20 10:00 78 18 150/88 96 05/16/20 08:45 122 H 18 117/92 96 05/16/20 07:43 99.0 F 81 18 135/85 97 Intake and Output 05/15/20 05/16/20 05/16/20 22:59 06:59 14:59 Other: # Voids 1 Weight 86.183 kg - Constitutional General appearance: average body habitus, cooperative, no acute distress - EENT Eyes: anicteric sclerae, EOMI ENT: hearing grossly normal, normal oropharynx - Neck Neck: no lymphadenopathy - Respiratory Respiratory: bilateral: diminished - Cardiovascular Heart sounds: normal: S1, S2 Abnormal Heart Sounds: no systolic murmur, no diastolic murmur, no rub, no S3 Gallop, no S4 Gallop, no click, no other leg Peripheral Edema: bilateral: Trace - Gastrointestinal General gastrointestinal: distended (mild), normal bowel sounds, soft - Neurologic Neurologic: CNII-XII intact - Musculoskeletal Musculoskeletal: strength equal bilaterally - Psychiatric Psychiatric: A&O x's 3, appropriate affect, intact judgment & insight Results CBC & Chem 7: 05/16/20 08:10 05/16/20 08:10 Labs: Abnormal Lab Results - Last 24 Hours (Table) 05/16/20 05/16/20 05/16/20 Range/Units 08:10 08:10 08:10 Plt Count 68 L (150-450) k/uL Lymphocytes # 0.3 L (1.0-4.8) k/uL D-Dimer 0.69 H (<0.60) mg/L FEU Carbon Dioxide 18 L (22-30) mmol/L BUN 29 H (9-20) mg/dL Creatinine 1.53 H (0.66-1.25) mg/dL Glucose 150 H (74-99) mg/dL AST 102 H (17-59) U/L ALT 103 H (4-49) U/L Alkaline Phosphatase 127 H (38-126) U/L Troponin I (0.000-0.034) ng/mL 05/16/20 05/16/20 Range/Units 08:10 10:50 Plt Count (150-450) k/uL Lymphocytes # (1.0-4.8) k/uL D-Dimer (<0.60) mg/L FEU Carbon Dioxide (22-30) mmol/L BUN (9-20) mg/dL Creatinine (0.66-1.25) mg/dL Glucose (74-99) mg/dL AST (17-59) U/L ALT (4-49) U/L Alkaline Phosphatase (38-126) U/L Troponin I 0.039 H* 0.055 H* (0.000-0.034) ng/mL Assessment and Plan (1) Hemoptysis Narrative/Plan: Pt has history of smoking, currently admitted with a pneumonia diagnosis. May need to consider a CT chest is after treatment symptom persists. Current Visit: Yes Status: Acute Priority: High Code(s): R04.2 - HEMOPTYSIS SNOMED Code(s): 98149977 (2) B12 deficiency Narrative/Plan: Pt due for B12 in ofc today, ordered his dose to be given Current Visit: Yes Status: Chronic Priority: Low Code(s): E53.8 - DEFICIENCY OF OTHER SPECIFIED B GROUP VITAMINS SNOMED Code(s): 854095145 (3) Varices of esophagus determined by endoscopy Narrative/Plan: History of Current Visit: No Status: Chronic Priority: Medium Code(s): I85.00 - ESOPHAGEAL VARICES WITHOUT BLEEDING SNOMED Code(s): 41622383 (4) Iron deficiency Narrative/Plan: 2/2 chronic GI bleeding. Pt has been feeling more tired, iron studies ordered. Last done in November 2019. Current Visit: No Status: Chronic Priority: Low Code(s): E61.1 - IRON DEFICIENCY SNOMED Code(s): 06442502 (5) Cirrhosis Narrative/Plan: 2/2/ Hx ETOH Current Visit: No Status: Chronic Priority: Low Code(s): K74.60 - UNSPECIFIED CIRRHOSIS OF LIVER SNOMED Code(s): 94478062 (6) Hepatitis C Narrative/Plan: Treated with antiviral therapy Current Visit: No Status: Chronic Priority: Low Code(s): B19.20 - UNSPECIFIED VIRAL HEPATITIS C WITHOUT HEPATIC COMA SNOMED Code(s): 00520567 (7) HCC (hepatocellular carcinoma) Narrative/Plan: Treated with radiofrequency ablation only, followed at [facility] Current Visit: No Status: Chronic Priority: Medium Code(s): C22.0 - LIVER CELL CARCINOMA SNOMED Code(s): 779384739 Plan: Pt is high risk for bleeding because of comorbid conditions. Also, his platelet baseline is many time lower then the recommended threshold of 50,000. From a Hematology standpoint anticoagulation not recommended in this high risk pt Cardiology has already made plans to not use anticoagulation. Did complete consult due to pt other hematological/oncology conditions
[2020-05-16] MEDS: carvediloL 6.25 MG TAB PO SCH (16:59)
--- NOTE | 2020-05-16 21:29 | P.HPIM ---
History of Present Illness H&P Date: 05/16/20 Chief Complaint: Chest Pain Patient is a 70-year-old male with a known history of hypertension, hyperlipidemia, hepatocellular carcinoma, hepatitis C and liver cirrhosis and COPD and other multiple medical problems including currently everyday smoker presents to ER with complaints of chest discomfort started today morning. Patient pressure-like sharp pain without any radiation. Associated with shortness of breath and slightly diaphoretic. Patient has been complaining of fatigue and tiredness for the last couple of days. No cough or sputum production. Patient did have subjective fevers at home. Denied any recent illnesses. Laboratory data showed WBC 3.8, hemoglobin 13.4, platelets 68 and lymphocytes 0.3 D-dimer level is 0.69, sodium 139, potassium 3.5, chloride 107, bicarb is 18, BUN 29 and creatinine 1.53 Blood sugar is 150 AST 102 ALT 103 and alk phos 127 and a troponin level is 0.039, 0.055 at 0.100 proBNP 350 Coronavirus PCR is not detected Chest x-ray showed COPD with new basilar left lower lobe infiltrate suggestive of pneumonia. EKG showed atrial fibrillation with rapid ventricular rate 150s. Review of Systems Constitutional: Patient does have subjective fever and chills . generalized weakness and tiredness. Abdomen: Patient denied nausea vomiting and diarrhea and abdominal pain. Cardiovascular: Patient does complain of chest pain and palpitations and no leg swelling.. Respiratory: patient denied any cough or sputum production. + shortness of breath Neurologic: Patient denied any numbness or tingling headache. Musculoskeletal: Patient denies any complaints of joint swelling or deformity. Skin: Negative Psychiatric: Negative Endocrine: No heat or cold intolerance. No recent weight gain. Genitourinary: No dysuria or hematuria. All other 14 point ROS negative except the above Past Medical History Past Medical History: Cancer, Chest Pain / Angina, COPD, Hyperlipidemia, Hypertension, Liver Disease, Musculoskeletal Disorder Additional Past Medical History / Comment(s): HX OF HEPATITIS C , hepatocellular carcinoma, LOW IRON , BACK PAIN, HERNIATED DISCS, SKIN CANCER, History of Any Multi-Drug Resistant Organisms: None Reported Past Surgical History: Back Surgery, Hernia Repair, Orthopedic Surgery Additional Past Surgical History / Comment(s): liver ablation done at [facility] for tx of hepatocellular carcinoma,hemorrhoids ,back surgery, cataract, skin cancer, inguinal hernia, abdominal hernia, left shoulder, right wrist, growth r emoved vocal cord, COLONOSCOPY Past Anesthesia/Blood Transfusion Reactions: No Reported Reaction Additional Past Anesthesia/Blood Transfusion Reaction / Comment(s): no hx blood transfusion Past Psychological History: No Psychological Hx Reported Smoking Status: Current every day smoker Past Alcohol Use History: None Reported Past Drug Use History: None Reported - Past Family History Father Family Medical History: Cancer Medications and Allergies Home Medications Medication Instructions Recorded Confirmed Type Losartan Potassium [Cozaar] 100 mg PO DAILY 08/06/14 05/16/20 History amLODIPine [Norvasc] 10 mg PO DAILY 08/06/14 05/16/20 History Aspirin 81 mg PO DAILY 08/02/16 05/16/20 History Colchicine 0.6 mg PO DAILY PRN 08/02/16 05/16/20 History Cyclobenzaprine [Flexeril] 10 mg PO HS PRN 08/02/16 05/16/20 History Nitroglycerin Sl Tabs [Nitrostat] 0.4 mg SUBLINGUAL Q5M PRN 08/02/16 05/16/20 History Cholecalciferol [Vitamin D3 (25 1,000 unit PO DAILY 08/20/16 05/16/20 History Mcg = 1000 Iu)] Budesonide [Pulmicort] 2 ml INHALATION RT-BID 08/31/18 05/16/20 History Hydrocodone/Acetaminophen [[place] 1 tab PO QID PRN 08/31/18 05/16/20 History 10-325] Montelukast Sodium [Singulair] 10 mg PO DAILY 08/31/18 05/16/20 History Tiotropium 18 Mcg/Puff [Spiriva] 2 puff INHALATION RT-DAILY 08/31/18 05/16/20 History Ferrous Sulfate [Feosol] 487.5 mg PO DAILY 12/29/18 05/16/20 History Potassium Chloride [Klor-Con 10] 10 meq PO DAILY 03/18/19 05/16/20 History Albuterol Inhaler [Ventolin Hfa 2 puff INHALATION RT-QID PRN 07/29/19 05/16/20 History Inhaler] Clopidogrel [Plavix] 75 mg PO DAILY 05/16/20 05/16/20 History Omeprazole 20 mg PO BID 05/16/20 05/16/20 History carvediloL [Coreg] 6.25 mg PO BID 05/16/20 05/16/20 History Allergies Allergy/AdvReac Type Severity Reaction Status Date / Time No Known Allergies Allergy Verified 05/16/20 08:54 Physical Exam Vitals: Vital Signs Temp Pulse Pulse Resp BP BP Pulse Ox 05/16/20 12:00 98.4 F 63 20 151/81 96 05/16/20 10:41 99.0 F 78 18 150/88 96 05/16/20 10:00 78 18 150/88 96 05/16/20 08:45 122 H 18 117/92 96 05/16/20 07:43 99.0 F 81 18 135/85 97 Intake and Output 05/15/20 05/16/20 05/16/20 22:59 06:59 14:59 Other: # Voids 1 Weight 86.183 kg PHYSICAL EXAMINATION: Patient is lying in the bed comfortably, no acute distress, awake alert and oriented.hard of hearing. HEENT: Normocephalic. Neck is supple. Pupils reactive. Nostrils clear. Oral cavity is moist. Ears reveal no drainage. Neck reveals no JVD, carotid bruits, or thyromegaly. CHEST EXAMINATION: Trachea is central. Symmetrical expansion. Scattered rhonchi. Left basilar coarse breath sounds. No wheezing.. CARDIAC: Normal S1, S2 with no gallops. systolic murmur ABDOMEN: Soft. Bowel sounds normal. No organomegaly. No abdominal bruits. Extremities: reveal no edema. No clubbing or cyanosis Neurologically awake, alert, oriented x3 with well-coordinated movements. No focal deficits noted Skin: No rash or skin lesions. Psychiatric: Coperative. Nonsuicidal Musculoskeletal: No joint swelling or deformity. Normal range of motion. Results CBC & Chem 7: 05/16/20 08:10 05/16/20 08:10 Labs: Abnormal Lab Results - Last 24 Hours (Table) 05/16/20 05/16/20 05/16/20 Range/Units 08:10 08:10 08:10 Plt Count 68 L (150-450) k/uL Lymphocytes # 0.3 L (1.0-4.8) k/uL D-Dimer 0.69 H (<0.60) mg/L FEU Carbon Dioxide 18 L (22-30) mmol/L BUN 29 H (9-20) mg/dL Creatinine 1.53 H (0.66-1.25) mg/dL Glucose 150 H (74-99) mg/dL AST 102 H (17-59) U/L ALT 103 H (4-49) U/L Alkaline Phosphatase 127 H (38-126) U/L Troponin I (0.000-0.034) ng/mL 05/16/20 05/16/20 Range/Units 08:10 10:50 Plt Count (150-450) k/uL Lymphocytes # (1.0-4.8) k/uL D-Dimer (<0.60) mg/L FEU Carbon Dioxide (22-30) mmol/L BUN (9-20) mg/dL Creatinine (0.66-1.25) mg/dL Glucose (74-99) mg/dL AST (17-59) U/L ALT (4-49) U/L Alkaline Phosphatase (38-126) U/L Troponin I 0.039 H* 0.055 H* (0.000-0.034) ng/mL Thrombosis Risk Factor Assmnt - DVT/VTE Prophylaxis DVT/VTE Prophylaxis: Mechanical Prophylaxis ordered Assessment and Plan Assessment: Left lower lobe pneumonia New onset atrial fibrillation with rapid ventricular rate. Currently converted to sinus rhythm Palpitations, tiredness secondary above Mildly elevated D-dimer level due to infection and atrial fibrillation Elevated troponin level secondary to demand mismatch/A. fib History of aortic stenosis Hepatocellular carcinoma on follow-up at [facility] Thrombocytopenia due to liver cirrhosis Liver cirrhosis, gastric varices and history of GI bleed/hemoptysis Acute kidney injury likely prerenal with underlying CKD stage III Elevated BNP level 3580 without congestion leg swelling. Currently everyday smoker Hypertension COPD Hyperlipidemia Chronic low back pain and herniated disc DVT prophylaxis with SCDs with thrombocytopenia history and GI bleed. Plan: Patient will be continued on telemetry monitoring. Continue with Coreg and currently converted to sinus rhythm. Anticoagulation was not started due to history of hemoptysis, esophageal varices and GI bleed along with history of hepatocellular carcinoma and liver cirrhosis. Hematology oncology and cardiology is on board. Continue with PPI and SCDs for DVT prophylaxis. Continue with antibiotics in the form of ceftriaxone and azithromycin. Follow- up CBC and BMP tomorrow. Further recommendations based on the clinical course. Prognosis guarded at this time. Time with Patient: Greater than 30
[2020-05-16] MEDS: BUDESONIDE 0.5 MG/2 ML NEBU INHALATION SCH (21:30)
[2020-05-16 21:43] LABS: Ferritin 285.8 ng/mL (22.0-322.0)
[2020-05-16 21:48] LABS: % Iron Saturation 12.9 (15.00-50.00)
[2020-05-17] MEDS: carvediloL 6.25 MG TAB PO SCH (06:42)
--- NOTE | 2020-05-17 07:16 | XR ---
EXAMINATION TYPE: XR chest 1V portable DATE OF EXAM: 05/17/2020 CLINICAL HISTORY: Pneumonia progress study. TECHNIQUE: Single AP portable upright view of the chest is obtained. COMPARISON: Chest x-ray from one day earlier and older studies. FINDINGS: Cardiac silhouette size more prominent and mildly enlarged with atherosclerotic and ectati c thoracic aorta. Slight worsening left basilar and lateral lower lung linear opacities. Right lung r emains clear. No pleural effusion or pneumothorax seen. Underlying scoliotic curvature is present. IMPRESSION: Continued slight worsening in left basilar acute infiltrate and/or atelectasis and periph eral left lower lobe linear atelectasis on background chronic parenchymal scarring. Right lung remain s clear.
[2020-05-17] MEDS ORDERED: PANTOPRAZOLE 40 MG TABLET PO SCH (07:30)
[2020-05-17 07:48] LABS: Basophils % (A) 0 %; Eosinophils # (A) 0.1 k/uL (0-0.7); Eosinophils % (A) 4 %; HCT 36.2 % (39.0-53.0); HGB 11.5 gm/dL (13.0-17.5); Lymphocytes # (A) 0.3 k/uL (1.0-4.8); Lymphocytes % (A) 17 %; MCH 27.1 pg (25.0-35.0); MCHC 31.8 g/dL (31.0-37.0); MCV 85.2 fL (80.0-100.0); Mean Platelet Volume 9.4; Monocytes # (A) 0.1 k/uL (0-1.0); Monocytes % (A) 7 %; Neutrophils # (A) 1.2 k/uL (1.3-7.7); Neutrophils % (A) 69 %; Poikilocytosis Slight; RBC 4.25 m/uL (4.30-5.90); RDW 15.2 % (11.5-15.5); WBC 1.7 k/uL (3.8-10.6)
[2020-05-17 07:51] LABS: Platelet Count 58 k/uL (150-450)
[2020-05-17 08:00] LABS: Calcium 8.7 mg/dL (8.4-10.2); Potassium 3.6 mmol/L (3.5-5.1)
--- NOTE | 2020-05-17 08:01 | ECHOF ---
Referral Reason:a fib w rvr MEASUREMENTS -------- HEIGHT: 177.8 cm WEIGHT: 86.2 kg BP: 150/88 IVSd: 1.7 cm (0.6 - 1.1) LVIDd: 4.8 cm (3.9 - 5.3) LVPWd: 1.7 cm (0.6 - 1.1) IVSs: 2.1 cm LVIDs: 3.5 cm LVPWs: 1.8 cm LAESV Index (A-L): 48.05 ml/m Ao Diam: 3.5 cm (2.0 - 3.7) AV Cusp: 1.6 cm (1.5 - 2.6) MV E Aris: 0.79 m/s MV DecT: 299 ms MV A Aris: 1.51 m/s MV E/A Ratio: 0.52 AV maxP.51 mmHg AV meanP.75 mmHg AR PHT: 391 ms RAP: 5.00 mmHg RVSP: 23.57 mmHg FINDINGS -------- Sinus rhythm. This was a technically adequate study. The left ventricular size is normal. There is severe concentric left ventricular hypertrophy. Ove rall left ventricular systolic function is low-normal with, an EF between 50 - 55 %. The right ventricle is normal in size. LA is severely dilated >40 ml/m2 The right atrium was not well visualized. Interatrial and interventricular septum intact. The aortic valve was not well visualized. There is [id number] aortic regurgitation. There i s mild aortic stenosis present. Peak/mean gradient across the Aortic Valve is 39.51mmHg / 17.75mmHg . The mitral valve is normal. Mild mitral regurgitation is present. The tricuspid valve appears structurally normal. Mild tricuspid regurgitation present. There is n o evidence of pulmonary hypertension. The right ventricular systolic pressure, as measured by Doppl er, is 23.57mmHg. The pulmonic valve was not well visualized. The aortic root size is normal. IVC Not well visulized. There is no pericardial effusion. CONCLUSIONS -------- 1. There is severe concentric left ventricular hypertrophy. 2. Overall left ventricular systolic function is low-normal with, an EF between 50 - 55 %. 3. LA is severely dilated >40 ml/m2 4. The aortic valve was not well visualized. 5. There is [id number] aortic regurgitation. 6. There is mild aortic stenosis present. 7. Peak/mean gradient across the Aortic Valve is 39.51mmHg / 17.75mmHg. 8. Mild mitral regurgitation is present. 9. Mild tricuspid regurgitation present. HARVEST MANAGER: Ban Pineda RDCS
[2020-05-17] MEDS: BUDESONIDE 0.5 MG/2 ML NEBU INHALATION SCH (08:26)
[2020-05-17] MEDS ORDERED: ASPIRIN 325 MG TAB PO SCH (09:00)
[2020-05-17] MEDS ORDERED: amLODIPine 10 MG TAB PO SCH (09:00)
[2020-05-17] MEDS ORDERED: AZITHROMYCIN 500 MG TAB PO SCH (09:00)
[2020-05-17] MEDS ORDERED: LOSARTAN 50 MG TAB PO SCH (09:00)
[2020-05-17] MEDS ORDERED: MONTELUKAST 10 MG TAB PO SCH (09:00)
[2020-05-17 10:23] VITALS: BP 179/71; PULSE 55; RESP 20; TEMP 97.9
--- NOTE | 2020-05-17 14:42 | P.PN ---
Subjective Progress Note Date: 05/17/20 CHIEF COMPLAINT: new-onset A. fib HISTORY OF PRESENT ILLNESS: 05/16/2020 This is a 70-year-old male with a past medical history significant for hypertension, COPD, chronic kidney disease, and nicotine dependence. Patient follows in the office with Dr. Pedro. We have been asked to see the patient in consultation for new onset afib. Patient examined at the bedside. Patient reports over the weekend he was experiencing shortness of breath, productive cough, and fever. He states he woke up this morning with palpitations. Patient presented to the emergency room for further evaluation. Patient was found to be in A. fib with RVR. Patient denies a history of atrial fibrillation. He was started on a Cardizem drip in the emergency room. At the time of examination he is in sinus rhythm. He denies chest pain or pressure. Reports shortness of breath with exertion. Denies dizziness or lightheadedness. Currently denies palpitations. Patient was also found to have left lower lobe pneumonia and was started on antibiotics. Patient has plavix listed as a home medication. patient states he saw Dr. Scanlon in the office last week and was prescribed 2 new medications. He believes one was for his blood pressure. Patient states he is not currently taking Plavix. Patient denies history of heart attacks in the past. He states he has never had a cardiac cath or stents placed to the heart. he denies any history of CVA or TIA. Echocardiogram completed in November 2019 revealed ejection fraction 50-55%, moderate aortic regurgitation, and moderate aortic stenosis. 05/17/2020 Patient examined this morning at the bedside. he denies chest pain or pressure. Denies shortness of breath. He is maintaining sinus mechanism. Echocardiogram completed revealed ejection fraction 50-55%, [id number] aortic regurgitation, mild aortic stenosis, mild mitral regurgitation, and mild tricuspid regurgitation. PHYSICAL EXAM: VITAL SIGNS: Reviewed. GENERAL: Well-developed in no acute distress. HEENT: Head is normocephalic. Pupils are equal, round. Sclerae anicteric. Mucous membranes of the mouth are moist. Neck supple. No JVD or thyromegaly LUNGS: Respirations even and unlabored. Lungs diminished bilaterally. HEART: Regular rate and rhythm. S1 and S2 heard. Systolic murmur noted. ABDOMEN: Soft. Nondistended. Nontender. EXTREMITIES: Normal range of motion. No clubbing or cyanosis. Peripheral pulses intact. No lower extremity edema NEUROLOGIC: Awake and alert. Oriented x 3. ASSESSMENT: Palpitations New-onset atrial fibrillation with RVR, since converted to sinus mechanism Left lower lobe pneumonia Abnormal troponin, secondary to new onset afib Hypertension Aortic stenosis Thrombocytopenia Chronic kidney disease Nicotine dependence PLAN: Continue current cardiac medications Patient has been evaluated by hematology and felt to be high risk for anticoagulation. Patient is stable for discharge home today from a cardiac standpoint. He is to follow up outpatient with Dr. Pedro Nurse practitioner note has been reviewed by physician. Signing provider agrees with the documented findings, assessment, and plan of care. Objective - Vital Signs Vital signs: Vital Signs Temp 97.9 F 05/17/20 08:00 Pulse 56 L 05/17/20 08:46 Resp 20 05/17/20 08:00 BP 179/71 05/17/20 08:00 Pulse Ox 96 05/17/20 08:00 Intake & Output 05/16/20 05/17/20 05/17/20 18:59 06:59 18:59 Intake Total 962 222 360 Output Total 800 Balance 962 -578 360 Weight 86.183 kg 85 kg Intake: Oral 962 222 360 Output: Urine 800 Other: Voiding Method Toilet # Voids 1 1 - Labs CBC & Chem 7: 05/17/20 07:09 05/17/20 07:09 Labs: Abnormal Lab Results - Last 24 Hours (Table) 05/16/20 05/16/20 05/17/20 Range/Units 14:03 14:03 07:09 WBC (3.8-10.6) k/uL RBC (4.30-5.90) m/uL Hgb (13.0-17.5) gm/dL Hct (39.0-53.0) % Plt Count (150-450) k/uL Neutrophils # (1.3-7.7) k/uL Lymphocytes # (1.0-4.8) k/uL BUN 28 H (9-20) mg/dL Creatinine 1.44 H (0.66-1.25) mg/dL Glucose 136 H (74-99) mg/dL Iron 28 L (65-175) ug/dL TIBC 217 L (228-460) ug/dL % Saturation 12.90 L (15.00-50.00) Troponin I 0.100 H* (0.000-0.034) ng/mL HDL Cholesterol 24 L (40-60) mg/dL 05/17/20 Range/Units 07:09 WBC 1.7 L (3.8-10.6) k/uL RBC 4.25 L (4.30-5.90) m/uL Hgb 11.5 L (13.0-17.5) gm/dL Hct 36.2 L (39.0-53.0) % Plt Count 58 L (150-450) k/uL Neutrophils # 1.2 L (1.3-7.7) k/uL Lymphocytes # 0.3 L (1.0-4.8) k/uL BUN (9-20) mg/dL Creatinine (0.66-1.25) mg/dL Glucose (74-99) mg/dL Iron (65-175) ug/dL TIBC (228-460) ug/dL % Saturation (15.00-50.00) Troponin I (0.000-0.034) ng/mL HDL Cholesterol (40-60) mg/dL Microbiology - Last 24 Hours (Table) 05/16/20 10:48 Blood Culture - Preliminary Blood No Growth after 24 hours
--- NOTE | 2020-05-17 19:32 | CONS ---
CONSULTATION REASON FOR CONSULTATION: Renal failure. HISTORY OF PRESENT ILLNESS: The patient is a 70-year-old male who was admitted to the hospital with complaints of weakness and not feeling well. He tested negative for Coronavirus PCR. However, his chest x-ray showed bilateral infiltrates and he is currently in isolation. The patient has underlying chronic kidney disease with baseline creatinine around 1.5 to 1.7 mg/dL. On admission, patient's creatinine was 1.53 and today it is down to 1.4. Patient feels fairly well. He states that his shortness of breath has improved. He has been walking. He is not requiring oxygen. He did receive antibiotics and there are plans for possible discharge today. Good urine output. PAST MEDICAL HISTORY: CKD, stage 3, baseline creatinine 1.5 to 1.7, history of chronic thrombocytopenia, COPD, hyperlipidemia, hypertension, history of hepatitis C, history of hepatocellular carcinoma, status post radiofrequency ablation, being followed at [place]. SOCIAL HISTORY: Positive for smoking. No history of drug abuse or alcohol abuse. MEDICATIONS: Medications prior to admission included Cozaar, vitamin D3, Singulair, potassium, iron, Plavix, omeprazole, Coreg, Flexeril, colchicine, aspirin, Norvasc, Cozaar. ALLERGIES: NONE. PHYSICAL EXAMINATION: Patient is comfortable, awake, not in any acute distress. Alert, oriented x3. Blood pressure was elevated at 179/71, heart rate 55 per minute. He is afebrile. Examination of lower extremities shows no evidence of edema. Abdomen is soft, nontender. REHABILITATION ENGINEER exam is grossly intact. LABS: Labs show hemoglobin 11.5, sodium 139, potassium 3.6, serum creatinine 1.4. Troponin 0.1. Iron saturation was low at 12.9. ASSESSMENT: 1. Chronic kidney disease, stage 3. Renal function at baseline, maintained on angiotensin receptor blockers. 2. Hypertension, currently uncontrolled. Expect improvement post discharge. The patient did not receive any steroids. 3. Atrial fibrillation, currently in sinus rhythm. 4. Cardiomyopathy with severe concentric left ventricular hypertrophy noted on echocardiogram done this admission yesterday on 05/16/2020. 5. Chronic thrombocytopenia. 6. Left lower lobe pneumonia. PLAN: Patient can be discharged. Follow up as outpatient for CKD and hypertension. Can increase Coreg if blood pressure remains elevated. Thank you for this consultation. MMODL / IJN: [id number] /
--- NOTE | 2020-05-18 11:47 | P.DS ---
Providers Date of admission: 05/16/20 10:09 Expected date of discharge: 05/17/20 Attending physician: Hillary Franks Consults: 05/16/20 10:09 Consult Physician Urgent Consulting Provider: Luis Holly Consult Reason/Comments: a fib w rvr Do you want consulting provider notified?: Yes Primary care physician: Rajesh Workman MD Hospital Course: Final diagnosis Left lower lobe pneumonia New onset atrial fibrillation with rapid ventricular rate Palpitations, tiredness secondary above Mildly elevated D-dimer level due to infection and atrial fibrillation Elevated troponin level secondary to demand mismatch/A. 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 Patient will follow-up with Dr. Rajesh Workman upon discharge. Patient will follow-up outpatient cardiology Dr. Pedro as discussed and scheduled. Patient will also follow-up with Dr. Guy in the outpatient setting as scheduled. Patient will continue on a short course of oral antibiotics in the form of Ceftin 500 mg twice daily for the next 5 days to complete the course. Total time taken is greater than 35 minutes. Hospital course This is a 70-year-old male who was recently admitted with chest discomfort and was being closely monitored. Patient was also experiencing intermittent shortness of breath and fatigue and weakness. Patient did have Covid 19 testing which was negative. Patient was started on antibiotics in the form of ceftriaxone along with azithromycin and will continue with Ceftin 500 mg twice daily for the next 5 days to complete the course. Patient's chest x-ray showed COPD with a new basilar left lower lobe infiltrate suggestive of pneumonia. Patient's d-dimer was slightly elevated although given history and high risk with anticoagulation patient is not on any form of anticoagulation at this time. Will be following up with hematology along with cardiology Dr. Pedro in the outpatient setting. Patient states he does have oxygen as needed at home although has not required any increase in oxygenation and saturations have been in the high 90s. Patient was seen and evaluated by cardiology. Currently no reports of chest pain, shortness of breath, or palpitations. Patient is afebrile. No reports of nausea or vomiting and patient is tolerating diet. Patient instructed to limit activity until follow-up with cardiology and monitor heart rate and keep a diary for cardiology follow-up. Patient will be discharged to home today. On exam vital signs are stable. Cardio S1, S2 are muffled. Respiratory shows diminished breath sounds at the bases with no wheezing or rhonchi noted. Abdomen is soft and nontender. Nervous system shows no focal deficits. Please refer to medication reconciliation sheet for a list of medications. Patient Condition at Discharge: Stable Plan - Discharge Summary Discharge Rx Participant: Yes New Discharge Prescriptions: New Cefuroxime Axetil [Ceftin] 500 mg PO BID 5 Days #10 tab Azithromycin [Zithromax] 500 mg PO DAILY 3 Days #3 tab Continue amLODIPine [Norvasc] 10 mg PO DAILY Losartan Potassium [Cozaar] 100 mg PO DAILY Nitroglycerin Sl Tabs [Nitrostat] 0.4 mg SUBLINGUAL Q5M PRN PRN Reason: Chest Pain Aspirin 81 mg PO DAILY Cyclobenzaprine [Flexeril] 10 mg PO HS PRN PRN Reason: Muscle Spasm Colchicine 0.6 mg PO DAILY PRN PRN Reason: gout Cholecalciferol [Vitamin D3 (25 Mcg = 1000 Iu)] 1,000 unit PO DAILY Budesonide [Pulmicort] 2 ml INHALATION RT-BID Tiotropium 18 Mcg/Puff [Spiriva] 2 puff INHALATION RT-DAILY Hydrocodone/Acetaminophen [[place] 10-325] 1 tab PO QID PRN PRN Reason: Pain Montelukast Sodium [Singulair] 10 mg PO DAILY Ferrous Sulfate [Iron (65 MG Elemental)] 487.5 mg PO DAILY Potassium Chloride [Klor-Con 10] 10 meq PO DAILY Albuterol Inhaler [Ventolin Hfa Inhaler] 2 puff INHALATION RT-QID PRN PRN Reason: Shortness Of Breath Omeprazole 20 mg PO BID carvediloL [Coreg] 6.25 mg PO BID Discontinued Clopidogrel [Plavix] 75 mg PO DAILY Discharge Medication List Losartan Potassium [Cozaar] 100 mg PO DAILY 08/06/14 [History] amLODIPine [Norvasc] 10 mg PO DAILY 08/06/14 [History] Aspirin 81 mg PO DAILY 08/02/16 [History] Colchicine 0.6 mg PO DAILY PRN 08/02/16 [History] Cyclobenzaprine [Flexeril] 10 mg PO HS PRN 08/02/16 [History] Nitroglycerin Sl Tabs [Nitrostat] 0.4 mg SUBLINGUAL Q5M PRN 08/02/16 [History] Cholecalciferol [Vitamin D3 (25 Mcg = 1000 Iu)] 1,000 unit PO DAILY 08/20/16 [History] Budesonide [Pulmicort] 2 ml INHALATION RT-BID 08/31/18 [History] Hydrocodone/Acetaminophen [[place] 10-325] 1 tab PO QID PRN 08/31/18 [History] Montelukast Sodium [Singulair] 10 mg PO DAILY 08/31/18 [History] Tiotropium 18 Mcg/Puff [Spiriva] 2 puff INHALATION RT-DAILY 08/31/18 [History] Ferrous Sulfate [Iron (65 MG Elemental)] 487.5 mg PO DAILY 12/29/18 [History] Potassium Chloride [Klor-Con 10] 10 meq PO DAILY 03/18/19 [History] Albuterol Inhaler [Ventolin Hfa Inhaler] 2 puff INHALATION RT-QID PRN 07/29/19 [History] Omeprazole 20 mg PO BID 05/16/20 [History] carvediloL [Coreg] 6.25 mg PO BID 05/16/20 [History] Azithromycin [Zithromax] 500 mg PO DAILY 3 Days #3 tab 05/17/20 [Rx] Cefuroxime Axetil [Ceftin] 500 mg PO BID 5 Days #10 tab 05/17/20 [Rx] Follow up Appointment(s)/Referral(s): Gopi Guy MD [STAFF PHYSICIAN] - 06/10/20 9:30 am Rajesh Workman MD [Primary Care Provider] - 1-2 days Nan Pedro MD [STAFF PHYSICIAN] - 05/30/20 3:45 pm [place] [facility] [place] Patient Instructions/Handouts: A-fib (Atrial Fibrillation) (GEN), Community Acquired Pneumonia (GEN) Activity/Diet/Wound Care/Special Instructions: Activity limited until follow-up Follow-up with primary care provider upon discharge Follow Up cardiology as discussed and scheduled Continue antibiotics until finished Continue current diet To be excused from work until primary care follow-up Discharge Disposition: HOME SELF-CARE
== END 2020-05-17 14:06 | disposition home or self-care (01) | DRG 194 ==
LOC: EC 07:39 → 3SCARD 10:09
PROVIDERS: ADMIT Hospitalist; ATTEND Hospitalist
DX: J18.9 Pneumonia, unspecified organism (principal); I85.10 Secondary esophageal varices without bleeding; J44.0 Chronic obstructive pulmonary disease with (acute) lower respiratory infection; C22.0 Liver cell carcinoma; J98.11 Atelectasis; R04.2 Hemoptysis; I24.8 Other forms of acute ischemic heart disease; I42.9 Cardiomyopathy, unspecified; I48.91 Unspecified atrial fibrillation; I12.9 Hypertensive chronic kidney disease with stage 1 through stage 4 chronic kidney disease, or unspecified chronic kidney disease; I35.2 Nonrheumatic aortic (valve) stenosis with insufficiency; I86.4 Gastric varices; K70.30 Alcoholic cirrhosis of liver without ascites; Z87.19 Personal history of other diseases of the digestive system; Z71.6 Tobacco abuse counseling; F17.210 Nicotine dependence, cigarettes, uncomplicated; G89.29 Other chronic pain; E78.5 Hyperlipidemia, unspecified; E61.1 Iron deficiency; E53.8 Deficiency of other specified B group vitamins; D69.6 Thrombocytopenia, unspecified; B19.20 Unspecified viral hepatitis C without hepatic coma; N18.30 Chronic kidney disease, stage 3 unspecified; D69.59 Other secondary thrombocytopenia; Z98.49 Cataract extraction status, unspecified eye; Z85.828 Personal history of other malignant neoplasm of skin; Z79.899 Other long term (current) drug therapy; Z79.82 Long term (current) use of aspirin; Z79.02 Long term (current) use of antithrombotics/antiplatelets
CPT/HCPCS: 36415; 71045; 71046; 80048; 80053; 80061; 82728; 83540; 83550; 83605; 83735; 83880; 84484; 85025; 85379; 85610; 85730; 87040; 87635; 93005; 93306; 94640; 96365; 96366; 99291

== ENCOUNTER → 2021-05-17 | Outpatient (CLI) | payer MEDICARE, OTHER ==
[2021-05-18 13:15] LABS: Coronavirus SARS CoV-2 Not Detected (Not Detected)
== END | disposition home or self-care (01) ==
LOC: LABWHC1 14:28
PROVIDERS: ATTEND Otolaryngology
DX: Z01.818 Encounter for other preprocedural examination (principal)

== ENCOUNTER → 2021-11-02 | Outpatient (CLI) | payer MEDICARE, OTHER ==
--- NOTE | 2021-11-02 13:02 | CT ---
EXAMINATION TYPE: CT soft tissue neck w con DATE OF EXAM: 11/02/2021 COMPARISON: 04/13/2021 HISTORY: Follow up for squamous cell cancer of neck. CT DLP: 421.1 mGycm CONTRAST: Patient injected with 70ml mL of Isovue 300. TECHNIQUE: Axial images at 3 mm thick sections. Reconstructed images in the coronal plane and sagitt al plane are reviewed. FINDINGS: Limited CT sections are obtained the lung apices. The lung apices appear clear. CT neck: The torus tubarius and fossa of Rosenmuller are normal. Gristmill Operator spaces are normal. Para nasal sinuses and mastoid air cells are clear. Postsurgical changes are in the right parotid region. Images of the neck through this level. Submandi bular glands, are normal. Parapharyngeal spaces are normal. No suspicious adenopathy is evident. Th ere is prominence of the right tonsillar pillar The hypopharynx appears within normal limits. Vocal cord level appear symmetrical. Thyroid is somewhat prominent. Degenerative disc changes are within the lower cervical spine. IMPRESSIONS: 1. Postsurgical right parotid changes. 2. Some prominence of the right tonsillar pillar consider postsurgical change within the differential . Recommend direct visualization. 2. No suspicious recurrent mass is evident.
== END | disposition home or self-care (01) ==
LOC: RADCTMAIN 08:55
PROVIDERS: ATTEND Otolaryngology
DX: C79.89 Secondary malignant neoplasm of other specified sites (principal); C77.0 Secondary and unspecified malignant neoplasm of lymph nodes of head, face and neck; C76.0 Malignant neoplasm of head, face and neck; L98.9 Disorder of the skin and subcutaneous tissue, unspecified
CPT/HCPCS: 82565; 84520; 70491; 36415; Q9967

== ENCOUNTER → 2022-01-12 | Outpatient (CLI) | payer MEDICARE, OTHER ==
--- NOTE | 2022-01-12 17:18 | MR ---
EXAMINATION TYPE: MR brain wo/w con DATE OF EXAM: 01/12/2022 COMPARISON: None HISTORY: liver ca CONTRAST: Performed utilizing 8.5 mL intravenous Gadavist gadolinium contrast. TECHNIQUE: Multiplanar, multiecho imaging on a 3.0 Ade magnet is performed through the brain. Stud y is performed within 24 hours of arrival to the hospital. The craniovertebral junction is normal. The pituitary is normal. Diffusion-weighted imaging is performed. No abnormal hyperintensity is present to suggest an acute i ntracranial infarct or acute ischemic change. Increased signals within the right brainstem. Hyperintense signal is also present through the periven tricular white matter and centrum semiovale. Findings are nonspecific and may be related to microvasc ular ischemic change. Differential diagnosis could include multiple sclerosis, migraines headaches, v asculitis. Following contrast, no abnormal enhancement is evident. Ventricles and sulci are appropriate for the patient age. There is a hyperdense lesion within the subcutaneous tissue right temporal region. This area appears to enhance.r this measures 1.3 cm in length. IMPRESSIONS: 1. Chronic white matter ischemic changes periventricular, centrum semiovale and right brain stem #2 s ubcutaneous enhancing lesion right temporal region
== END | disposition home or self-care (01) ==
LOC: RADMRIMAIN 11:02
PROVIDERS: ATTEND Internal Medicine Hematology & Oncology
DX: C22.7 Other specified carcinomas of liver (principal)
CPT/HCPCS: 70553; A9585

== ENCOUNTER → 2022-01-20 | Outpatient (CLI) | payer MEDICARE, OTHER ==
[2022-01-20 16:42] LABS: African American GFR (CKD) 49.8 (60.0-200.0); Albumin 4.2 g/dL (3.8-4.9); Albumin/Globulin Ratio 1.62 (1.60-3.17); Anion Gap 10.2 mmol/L (10.00-18.00); BUN/Creat Ratio 18.13 Ratio (12.00-20.00); Calcium 8.8 mg/dL (8.7-10.3); Carbon Dioxide 24.8 mmol/L (20.0-27.5); Globulin 2.6 g/dL (1.6-3.3); Potassium 4.1 mmol/L (3.5-5.5); Total Bilirubin 0.4 mg/dL (0.30-1.20); Total Protein 6.8 g/dL (6.2-8.2)
[2022-01-20 17:21] LABS: HCT 37.7 % (39.6-50.0); HGB 11.9 g/dL (13.0-17.0); MCH 26.6 pg (27.0-32.0); MCHC 31.6 g/dL (32.0-37.0); MCV 84.2 fL (80.0-97.0); Mean Platelet Volume 11.7 fL (9.5-12.2); NRBC Per 100 WBC 0 /100 WBCS (0.0-0.0); Platelet Count 68 X 10*3/uL (140-440); RBC 4.48 X 10*6/uL (4.40-5.60); RDW 15.8 % (11.5-14.5); WBC 3.36 X 10*3/uL (4.50-10.00)
[2022-01-20 17:22] LABS: Acanthocytes 2+; Elliptocytes 2+; Immature Platelet Fraction 7.1 % (1.1-6.1)
--- NOTE | 2022-01-21 15:07 | MR ---
EXAMINATION TYPE: MR liver wo/w con DATE OF EXAM: 01/20/2022 10:08 AM INDICATION: Patient age:Male; 71 years old; Reason for study: C22 LIVER CANCER. Liver cancer, F/U comparison to prior MRI 01-26-16. COMPARISON: MRI liver 01/21/2026 TECHNIQUE: Multiplanar multi-sequence imaging was performed without contrast. Post contrast imaging was performed. IV Contrast: 8 cc Gadavist FINDINGS: LOWER CHEST: No gross irregularity. ABDOMEN Liver: There is a nodular contour to liver with multiple hepatic cysts present which are high T2 sign al. Contour change along the right liver capsule could likely secondary to post interventional change s. Few foci of arterial phase hyperenhancement including: * 6 mm in the left hepatic lobe series 1001 image 366, This is equal signal on delayed imaging and l ikely represents shunting phenomenon. * Subcapsular area measuring 6 mm in the caudate lobe image 351. This is equal signal on delayed edven ging and likely represents shunting phenomenon. Gallbladder and Bile ducts: Gallbladder wall circumferential thickening with suspected fundal adenomy omatosis. Pancreas: Unremarkable. Spleen: The spleen is enlarged measuring up to 18.8 cm which is mildly decreased in size in 2016 wher e measure 1920 8 cm. Adrenal glands: Unremarkable. Kidneys: Multiple bilateral high T2 renal cysts. Some of the renal cysts are intrinsically high T1 si gnal. No suspicious postcontrast enhancement. Stomach and Bowel: Unremarkable as visualized. Peritoneum: No evidence of pneumoperitoneum, free fluid, or adenopathy. Vasculature: Infrarenal aortic fusiform dilation up to 3.6 cm, personally 2.8 cm in 2016.. Paraesopha geal varices are present. Abdominal wall: Unremarkable. Musculoskeletal: The osseous structures appear intact. IMPRESSION: 1. Hepatic cirrhosis with evidence of portal hypertension. No observation that needs HCC criteria. I nterventional postintervention changes but evidence for recurrence. Renal proteinaceous cyst and simp le appearing cyst. 2. Mild increased size of infrarenal aortic fusiform dilation up to 3.6 cm, previously 2.8 cm in 201 6.
== END | disposition home or self-care (01) ==
LOC: RADMRIMAIN 08:51
PROVIDERS: ATTEND Internal Medicine Gastroenterology
DX: C22.0 Liver cell carcinoma (principal); K74.60 Unspecified cirrhosis of liver
CPT/HCPCS: 80053; 85027; 82105; 74183; A9585

== ENCOUNTER → 2022-06-26 | Outpatient (CLI) | payer MEDICARE, OTHER ==
--- NOTE | 2022-06-26 16:58 | P.SLEEP ---
History of Present Illness H&P Date: 06/26/22 72-year-old male patient was coming in to be evaluated for sleep apnea. He reports that he snores and he stops breathing in the middle of the night. He is unable to maintain sleep throughout the night and his sleep is very much fragmented. He goes to bed at around 9:30, he watches TV for a total of 2 hours and later on he falls asleep. Within a few hours after falling sleep, he would wake up eitherforsnoring,urination or dry mouth. He ultimately gets out of bed at around 5 AM in the morning. He will take naps during the day. He feels excessively fatigued and tired during the day. He thinks that he is averaging only 5 hours of sleep. Note that his current Sheppton score is at 21. His weight has remained stable over the years. No sleepwalking. No sleep talking. No anxiety or panic attacks. No grinding of the teeth. No restlessness and lower extremities. 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 He has issues with paroxysmal atrial fibrillation and his current rhythm is sinus, he has chronic stage III kidney disease and liver cirrhosis with previous history of similar carcinoma that was resected surgically. He has hypertension and he has chronic iron deficiency anemia receiving IV iron infusions. Review of Systems Constitutional: Reports daytime sleepiness, Reports fatigue, Reports weakness Eyes: denies as per HPI, denies blurred vision, denies bulging eye, denies decreased vision, denies diplopia, denies discharge, denies dry eye, denies irritation, denies itching, denies pain, denies photophobia, denies loss of peripheral vision, denies loss of vision, denies tunnel vision/blind spots Ears: deny: decreased hearing, ear discharge, earache, tinnitus Ears, nose, mouth and throat: Reports as per HPI Cardiovascular: Reports as per HPI Respiratory: Reports snoring Gastrointestinal: Reports as per HPI Genitourinary: Reports as per HPI, Reports urinary frequency Musculoskeletal: Reports as per HPI Musculoskeletal: absent: ankle pain, ankle stiffness, ankle swelling Integumentary: Reports as per HPI Neurological: Reports as per HPI Psychiatric: Reports as per HPI Endocrine: Reports as per HPI Hematologic/Lymphatic: Reports as per HPI Allergic/Immunologic: Reports as per HPI 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 History of Any Multi-Drug Resistant Organisms: None Reported Past Surgical History: Back Surgery, Heart Catheterization, Hernia Repair, Orth opedic Surgery Additional Past Surgical History / Comment(s): liver ablation done at [facility] for tx of hepatocellular carcinoma,hemorrhoids ,back surgery, cataract, skin cancer, inguinal hernia, abdominal hernia, left shoulder, right wrist, growth removed vocal cord, PAROTID GLAD REMOVED DUE TO CANCER Past Anesthesia/Blood Transfusion Reactions: No Reported Reaction Additional Past Anesthesia/Blood Transfusion Reaction / Comment(s): no hx blood transfusion Past Psychological History: No Psychological Hx Reported Smoking Status: Current some day smoker Past Alcohol Use History: None Reported Additional Past Alcohol Use History / Comment(s): Smokes 1 to 2 cigarettes /day occasionally, Smoking on and off for 45 years. Past Drug Use History: None Reported - Past Family History Father Family Medical History: Cancer Medications and Allergies Home Medications Medication Instructions Recorded Confirmed Type Losartan Potassium [Cozaar] 100 mg PO DAILY 08/06/14 06/14/22 History amLODIPine [Norvasc] 10 mg PO DAILY 08/06/14 06/14/22 History Colchicine 0.6 mg PO DAILY PRN 08/02/16 06/14/22 History Cholecalciferol [Vitamin D3 (25 1,000 unit PO DAILY 08/20/16 06/14/22 History Mcg = 1000 Iu)] Hydrocodone/Acetaminophen [[place] 1 tab PO QID PRN 08/31/18 06/14/22 History 10-325] Tiotropium 18 Mcg/Puff [Spiriva] 1 puff INHALATION BID 08/31/18 06/14/22 History Ferrous Sulfate [Iron (65 MG 1.5 tab PO DAILY 12/29/18 06/14/22 History Elemental)] Albuterol Inhaler [Ventolin Hfa 2 puff INHALATION RT-QID PRN 07/29/19 06/08/22 History Inhaler] Omeprazole 20 mg PO BID 05/16/20 06/14/22 History Fluticasone Propion/Salmeterol 1 inhalation PO BID 06/08/22 06/14/22 History [[place] 250-50 Inhub] Metoprolol Tartrate 25 mg PO DAILY 06/08/22 06/14/22 History hydrALAZINE HCL [Apresoline] 100 mg PO TID 06/08/22 06/14/22 History Aspirin 81 mg PO DAILY PRN 06/14/22 06/14/22 History Furosemide [Lasix] 40 mg PO DAILY #30 tablet 06/14/22 Rx Allergies Allergy/AdvReac Type Severity Reaction Status Date / Time No Known Allergies Allergy Verified 06/08/22 15:35 Physical Exam BP is 168/70 with a pulse of 50 and a respiration of 16 and a temperature 97.9 and a pulse ox of 97% on room air oxygen. The size of the neck is 16.5 inches and is a poor score is at 21. The patient appeared well nourished and normally developed. Vital signs as documented. Head exam is unremarkable. No scleral icterus or corneal arcus noted. Neck is without jugular venous distension, thyromegaly, or carotid bruits. Carotid upstrokes are brisk bilaterally. The patient is a Mallampati class III with some limited crowding of the posterior oropharynx. Lungs are clear to auscultation and percussion. Cardiac exam reveals the PMI to be normally sized and situated. Rhythm is regular. First and second heart sounds normal. No murmurs, rubs or gallops. Abdominal exam reveals normal bowel sounds, no masses, no organomegaly and no aortic enlargement. Extremities are nonedematous and both femoral and pedal pulses are normal.Examination of the skin revealed no evidence of significant rashes, suspicious appearing nevi or other concerning lesions.Neurologically, the patient is awake and alert and the patient does not have any focal neurological deficit. Cranial nerves are essentially intact. Assessment and Plan Plan: Hypersomnia, chronic, Sheppton score of 21. Possible obstructive sleep apnea. The patient has multiple comorbidities, the bleeding to his chronic hypersomnia in addition to him having a regular sleep schedule and poor sleep hygiene measures. He will need further investigation. We'll set him up for a screening polysomnogram. 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 Optimize sleep hygiene measures Treat comorbidities including iron deficiency Oral hydration regarding ongoing mouth dryness Proceed with screening polysomnography evaluate for sleep structure and decide if further treatment is needed on this patient. Sleep Note - Sleep Note Sleep Note: Temperature: Pulse Rate: Respiratory Rate: Blood Pressure: SpO2: Height: Weight: BMI: Neck Circumference:
== END ==
LOC: SLEEP 14:35
PROVIDERS: ATTEND Internal Medicine Critical Care Medicine
DX: G47.10 Hypersomnia, unspecified (principal); J44.9 Chronic obstructive pulmonary disease, unspecified; I48.0 Paroxysmal atrial fibrillation; C07 Malignant neoplasm of parotid gland; N18.30 Chronic kidney disease, stage 3 unspecified; K74.60 Unspecified cirrhosis of liver; D61.818 Other pancytopenia; D50.0 Iron deficiency anemia secondary to blood loss (chronic); I12.9 Hypertensive chronic kidney disease with stage 1 through stage 4 chronic kidney disease, or unspecified chronic kidney disease; Z86.018 Personal history of other benign neoplasm; F17.200 Nicotine dependence, unspecified, uncomplicated; E78.5 Hyperlipidemia, unspecified
CPT/HCPCS: 99211

== ENCOUNTER → 2022-08-29 | Outpatient (CLI) | payer MEDICARE, OTHER ==
--- NOTE | 2022-08-30 07:45 | MR ---
EXAMINATION TYPE: MR lumbar spine wo con DATE OF EXAM: 08/29/2022 COMPARISON: NONE HISTORY: Mid and Low back pain into legs, Lt side worse. Spondylosis with radiculopathy. TECHNIQUE: Multiplanar, multisequence imaging of the lumbar spine is performed without IV contrast. FINDINGS: Localizer show splenomegaly which is noted on MRI liver January 2022. Sagittal images of th e lumbar spine show vertebral body heights to appear satisfactory. There is grade 1 retrolisthesis L3 on L4 and grade 1 anterolisthesis L4 on L5. Multilevel disc desiccation. There is moderate to advanc ed disc space narrowing with heterogeneous Modic type II endplate changes at L3-L4 level and heteroge neous Modic type I endplate changes at L4-L5 level along with moderate spurring at both levels. The c onus medullaris is normal in position and signal ending superior L1 level. Axial images show T12-L1 through the L2-L3 level to appear within normal limits. Axial images at L3-L4 level show spondylolisthesis with mild broad disc bulge mildly effacing anterio r thecal sac. There is mild facet arthropathy bilaterally. There is mild left-sided neural foraminal narrowing. Axial images at L4-L5 level shows moderate broad-based disc bulge with right lateral disc protrusion component. There is mild/moderate facet arthropathy and ligamentum flavum hypertrophy effacing right posterior lateral thecal sac. There is moderate right-sided neural foraminal narrowing. Axial images at L5-S1 level shows mild to moderate facet arthropathy bilaterally. There is tiny centr al disc protrusion but the spinal canal is preserved. Bilateral neural foramina are patent. There is AAA up to 4.1 cm noted axial image 13 increased from liver MRI. IMPRESSION: Multilevel spondylolisthesis and degenerative changes in the lumbar spine as detailed abo ve. Enlarging AAA up to 4.1 is noted. Follow-up advised.
== END | disposition home or self-care (01) ==
LOC: RADMRIMAIN 15:08
PROVIDERS: ATTEND Nurse Practitioner Family
DX: M47.26 Other spondylosis with radiculopathy, lumbar region (principal); M43.16 Spondylolisthesis, lumbar region; I71.40 Abdominal aortic aneurysm, without rupture, unspecified
CPT/HCPCS: 72148

== ENCOUNTER 2022-09-19 06:30 | Emergency (ER) | payer MEDICARE, OTHER ==
[2022-09-19] MEDS ORDERED: SODIUM CHLORIDE 0.9% 500 ML 500 ML IV STA (06:53)
--- NOTE | 2022-09-19 06:59 | ED ---
General Adult HPI - General Chief complaint: Chest Pain Stated complaint: Coughing up blood Time Seen by Provider: 09/19/22 06:45 Source: patient, RN notes reviewed Mode of arrival: ambulatory Limitations: no limitations - History of Present Illness Initial comments: 72-year-old male presents emergency department with chief complaint of shortness breath, abnormal x-ray. Patient states that he was at his appointment yesterday at [facility] in which he was told that he needs come emergency department for further evaluation and CAT scan. Patient states that he has been having some exertional dyspnea, does have ongoing shortness breath from COPD. 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 Patient denies any complaints of chest pain currently he states that he does not pay attention much but he states he has noticed some blood in mycin some sputum when he coughs. Denies fevers or chills. Denies any leg pain or leg swelling - Related Data Home Medications Medication Instructions Recorded Confirmed Losartan Potassium [Cozaar] 100 mg PO DAILY 08/06/14 06/14/22 amLODIPine [Norvasc] 10 mg PO DAILY 08/06/14 06/14/22 Colchicine 0.6 mg PO DAILY PRN 08/02/16 06/14/22 Cholecalciferol [Vitamin D3 (25 1,000 unit PO DAILY 08/20/16 06/14/22 Mcg = 1000 Iu)] Hydrocodone/Acetaminophen [[place] 1 tab PO QID PRN 08/31/18 06/14/22 10-325] Tiotropium 18 Mcg/Puff [Spiriva] 1 puff INHALATION BID 08/31/18 06/14/22 Ferrous Sulfate [Iron (65 MG 1.5 tab PO DAILY 12/29/18 06/14/22 Elemental)] Albuterol Inhaler [Ventolin Hfa 2 puff INHALATION RT-QID PRN 07/29/19 06/08/22 Inhaler] Omeprazole 20 mg PO BID 05/16/20 06/14/22 Fluticasone Propion/Salmeterol 1 inhalation PO BID 06/08/22 06/14/22 [Wixela 250-50 Inhub] Metoprolol Tartrate 25 mg PO DAILY 06/08/22 06/14/22 hydrALAZINE HCL [Apresoline] 100 mg PO TID 06/08/22 06/14/22 Aspirin 81 mg PO DAILY PRN 06/14/22 06/14/22 Previous Rx's Medication Instructions Recorded Furosemide [Lasix] 40 mg PO DAILY #30 tablet 06/14/22 Azithromycin [Zithromax Z Pack] 0 tab PO DIRECTED #6 tab 09/19/22 Allergies Allergy/AdvReac Type Severity Reaction Status Date / Time No Known Allergies Allergy Verified 09/19/22 06:37 Review of Systems ROS Statement: Those systems with pertinent positive or pertinent negative responses have been documented in the HPI. ROS Other: All systems not noted in ROS Statement are negative. 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 History of Any Multi-Drug Resistant Organisms: None Reported Past Surgical History: Back Surgery, Heart Catheterization, Hernia Repair, Orthopedic Surgery Additional Past Surgical History / Comment(s): liver ablation done at [place] for tx of hepatocellular carcinoma,hemorrhoids ,back surgery, cataract, skin cancer, inguinal hernia, abdominal hernia, left shoulder, right wrist, growth removed vocal cord, PAROTID GLAD REMOVED DUE TO CANCER Past Anesthesia/Blood Transfusion Reactions: No Reported Reaction Additional Past Anesthesia/Blood Transfusion Reaction / Comment(s): no hx blood transfusion Past Psychological History: No Psychological Hx Reported Smoking Status: Current some day smoker Past Alcohol Use History: None Reported Past Drug Use History: None Reported - Past Family History Father Family Medical History: Cancer General Exam Limitations: no limitations General appearance: alert, in no apparent distress Head exam: Present: atraumatic, normocephalic, normal inspection Eye exam: Present: normal appearance, PERRL, EOMI. Absent: scleral icterus, conjunctival injection, periorbital swelling ENT exam: Present: normal exam, normal oropharynx, mucous membranes moist Neck exam: Present: normal inspection, full ROM. Absent: tenderness, meningismus, lymphadenopathy Respiratory exam: Present: normal lung sounds bilaterally. Absent: respiratory distress, wheezes, rales, rhonchi, stridor Cardiovascular Exam: Present: regular rate, normal rhythm, normal heart sounds. Absent: systolic murmur, diastolic murmur, rubs, gallop, clicks Extremities exam: Absent: pedal edema, calf tenderness Course Vital Signs 09/19/22 09/19/22 06:31 09:53 Temperature 98.2 F 99.0 F Pulse Rate 78 76 Respiratory 18 17 Rate Blood Pressure 149/62 196/79 O2 Sat by Pulse 96 96 Oximetry EKG Findings - EKG Comments: EKG Findings:: EKG performed at 6:50 sinus bradycardia with a rate of 54 RI 194 QRS 105 QT/QTC 253/240, nonspecific Q-wave noted - EKG Results: EKG: interpreted by EKATERINA Medical Decision Making - Medical Decision Making Was pt. sent in by a medical professional or institution (, PA, FAMILY ASSESSMENT WORKER, urgent care, hospital, or [facility]...) When possible be specific @ -PCP Did you speak to anyone other than the patient for history (EMS, parent, family, police, friend...)? What history was obtained from this source @ -No Did you review nursing and triage notes (agree or disagree)? Why? @ -I reviewed and agree with nursing and triage notes Were old charts reviewed (outside hosp., previous admission, EMS record, old EKG, old radiological studies, urgent care reports/EKG's, [facility] records)? Report findings @ -Reviewed prior laboratory studies Differential Diagnosis (chest pain, altered mental status, abdominal pain women, abdominal pain men, vaginal bleeding, weakness, fever, dyspnea, syncope, headache, dizziness, GI bleed, back pain, seizure, CVA, palpatations, mental health, musculoskeletal)? @ -nDifferential Dyspnea: Coronary syndrome, arrhythmia, tamponade, asthma, COPD, pulmonary embolism, pneumonia, pneumothorax, pulmonary effusion, anaphylaxis, diabetic ketoacidosis, flailed chest, pulmonary contusion, diaphragmatic rupture, anemia, neuromuscular, this is not meant to be an all-inclusive list. able EKG interpreted by me (3pts min.). @ -As above X-rays interpreted by me (1pt min.). @ -None done CT interpreted by me (1pt min.). @ -CT PE study shows no evidence of PE, there are notable infiltrate changes U/S interpreted by me (1pt. min.). @ -None done What testing was considered but not performed or refused? (CT, X-rays, U/S, labs)? Why? @ -None What meds were considered but not given or refused? Why? @ -None Did you discuss the management of the patient with other professionals (professionals i.e. Dr., PA, FAMILY ASSESSMENT WORKER, lab, RT, psych nurse, social services assistant, manager utility, teacher, juvenile officer, case management director)? Give summary @ -No Was smoking cessation discussed for >3mins.? @ -No Was critical care preformed (if so, how long)? @ -No Were there social determinants of health that impacted care today? How? (Homelessness, low income, unemployed, alcoholism, drug addiction, transportation, low edu. Level, literacy, decrease access to med. care, senior living, rehab)? @ -No Was there de-escalation of care discussed even if they declined (Discuss DNR or withdrawal of care, Hospice)? DNR status @ -No What co-morbidities impacted this encounter? (DM, HTN, Smoking, COPD, CAD, Cancer, CVA, ARF, Chemo, Hep., AIDS, mental health diagnosis, sleep apnea, morbid obesity)? @ -COPD, cancer history Was patient admitted / discharged? Hospital course, mention meds given and route, prescriptions, significant lab abnormalities, going to OR and other pertinent info. @ -Discharge CT shows evidence of pneumonia, patient does have notable leukopenia which patient states he always has this. I did offer, recommend inpatient treatment bleeding IV antibiotics and further evaluation. Patient refuses admission states that he'll also be discharged he was given Rocephin prior to discharge to start azithromycin and follow-up with his energy trader Dr. Tabares Undiagnosed new problem with uncertain prognosis? @ -No Drug Therapy requiring intensive monitoring for toxicity (Heparin, Nitro, Insulin, Cardizem)? @ -No Were any procedures done? @ -No Diagnosis/symptom? @ -Pneumonia, leukopenia Acute, or Chronic, or Acute on Chronic? @ -Acute Uncomplicated (without systemic symptoms) or Complicated (systemic symptoms)? @ -Complicated Side effects of treatment? @ -No Exacerbation, Progression, or Severe Exacerbation? @ -No Poses a threat to life or bodily function? How? (Chest pain, [place], [place], pneumonia, PE, COPD, DKA, ARF, appy, cholecystitis, CVA, Diverticulitis, Homicidal, Suicidal, threat to staff... and all critical care pts) @ -Yes patient has obvious pneumonia, concerning for respiratory failure - Lab Data Result diagrams: 09/19/22 07:02 09/19/22 07:02 Lab Results 09/19/22 09/19/22 09/19/22 Range/Units 07:02 07:02 07:02 WBC 1.4 L* (3.8-10.6) k/uL RBC 4.21 L (4.30-5.90) m/uL Hgb 11.8 L (13.0-17.5) gm/dL Hct 35.6 L (39.0-53.0) % MCV 84.7 (80.0-100.0) fL MCH 28.0 (25.0-35.0) pg MCHC 33.0 (31.0-37.0) g/dL RDW 15.8 H (11.5-15.5) % Plt Count 57 L (150-450) k/uL MPV 9.9 Neutrophils % 76 % Lymphocytes % 14 % Monocytes % 6 % Eosinophils % 3 % Basophils % 0 % Neutrophils # 1.0 L (1.3-7.7) k/uL Lymphocytes # 0.2 L (1.0-4.8) k/uL Monocytes # 0.1 (0-1.0) k/uL Eosinophils # 0.1 (0-0.7) k/uL Basophils # 0.0 (0-0.2) k/uL Manual Slide Review Performed RBC Morphology Normal PT 10.9 (9.0-12.0) sec INR 1.0 (<1.2) APTT 31.9 H (22.0-30.0) sec D-Dimer 1.16 H (<0.60) mg/L FEU Sodium 139 (137-145) mmol/L Potassium 3.8 (3.5-5.1) mmol/L Chloride 106 (98-107) mmol/L Carbon Dioxide 25 (22-30) mmol/L Anion Gap 8 mmol/L BUN 33 H (9-20) mg/dL Creatinine 1.36 H (0.66-1.25) mg/dL Est GFR (CKD-EPI)AfAm 60 (>60 ml/min/1.73 sqM) Est GFR (CKD-EPI)NonAf 52 (>60 ml/min/1.73 sqM) Glucose 129 H (74-99) mg/dL Plasma Lactic Acid Rashel (0.7-2.0) mmol/L Calcium 8.6 (8.4-10.2) mg/dL Magnesium 1.8 (1.6-2.3) mg/dL Total Bilirubin 1.0 (0.2-1.3) mg/dL AST 36 (17-59) U/L ALT 29 (4-49) U/L Alkaline Phosphatase 90 (38-126) U/L Troponin I (0.000-0.034) ng/mL NT-Pro-B Natriuret Pep pg/mL Total Protein 6.7 (6.3-8.2) g/dL Albumin 3.5 (3.5-5.0) g/dL 09/19/22 09/19/22 09/19/22 Range/Units 07:02 07:02 07:02 WBC (3.8-10.6) k/uL RBC (4.30-5.90) m/uL Hgb (13.0-17.5) gm/dL Hct (39.0-53.0) % MCV (80.0-100.0) fL MCH (25.0-35.0) pg MCHC (31.0-37.0) g/dL RDW (11.5-15.5) % Plt Count (150-450) k/uL MPV Neutrophils % % Lymphocytes % % Monocytes % % Eosinophils % % Basophils % % Neutrophils # (1.3-7.7) k/uL Lymphocytes # (1.0-4.8) k/uL Monocytes # (0-1.0) k/uL Eosinophils # (0-0.7) k/uL Basophils # (0-0.2) k/uL Manual Slide Review RBC Morphology PT (9.0-12.0) sec INR (<1.2) APTT (22.0-30.0) sec D-Dimer (<0.60) mg/L FEU Sodium (137-145) mmol/L Potassium (3.5-5.1) mmol/L Chloride (98-107) mmol/L Carbon Dioxide (22-30) mmol/L Anion Gap mmol/L BUN (9-20) mg/dL Creatinine (0.66-1.25) mg/dL Est GFR (CKD-EPI)AfAm (>60 ml/min/1.73 sqM) Est GFR (CKD-EPI)NonAf (>60 ml/min/1.73 sqM) Glucose (74-99) mg/dL Plasma Lactic Acid Rashel 1.1 (0.7-2.0) mmol/L Calcium (8.4-10.2) mg/dL Magnesium (1.6-2.3) mg/dL Total Bilirubin (0.2-1.3) mg/dL AST (17-59) U/L ALT (4-49) U/L Alkaline Phosphatase (38-126) U/L Troponin I 0.029 (0.000-0.034) ng/mL NT-Pro-B Natriuret Pep 3400 pg/mL Total Protein (6.3-8.2) g/dL Albumin (3.5-5.0) g/dL Disposition Clinical Impression: Pneumonia, Leukopenia Disposition: HOME SELF-CARE Condition: Stable Instructions (If sedation given, give patient instructions): Bacterial Pneumonia (ED) Additional Instructions: Please return to the Emergency Department if symptoms worsen or any other concerns. Prescriptions: Azithromycin [Zithromax Z Pack] 0 tab PO DIRECTED #6 tab Is patient prescribed a controlled substance at d/c from ED?: No Referrals: Catracho Coon III, MD [Primary Care Provider] - 1-2 days Sherman Tabares MD [STAFF PHYSICIAN] - 1-2 days Time of Disposition: 09:51
[2022-09-19 07:10] LABS: Basophils % (A) 0 %; Eosinophils # (A) 0.1 k/uL (0-0.7); Eosinophils % (A) 3 %; HCT 35.6 % (39.0-53.0); HGB 11.8 gm/dL (13.0-17.5); Lymphocytes # (A) 0.2 k/uL (1.0-4.8); Lymphocytes % (A) 14 %; MCV 84.7 fL (80.0-100.0); Mean Platelet Volume 9.9; Monocytes # (A) 0.1 k/uL (0-1.0); Monocytes % (A) 6 %; Neutrophils % (A) 76 %; RBC 4.21 m/uL (4.30-5.90); RDW 15.8 % (11.5-15.5)
[2022-09-19 07:28] LABS: Partial Thromboplastin Time 31.9 sec (22.0-30.0); Prothrombin Time 10.9 sec (9.0-12.0)
[2022-09-19 07:43] LABS: WBC 1.4 k/uL (3.8-10.6)
[2022-09-19 08:25] LABS: ALT 29 U/L (4-49); AST 36 U/L (17-59); African American GFR (CKD) 60 (>60 ml/min/1.73 sqM); Albumin 3.5 g/dL (3.5-5.0); Alkaline Phosphatase 90 U/L (38-126); Anion Gap 8 mmol/L; Blood Urea Nitrogen 33 mg/dL (9-20); Calcium 8.6 mg/dL (8.4-10.2); Carbon Dioxide 25 mmol/L (22-30); Chloride 106 mmol/L (98-107); Glucose 129 mg/dL (74-99); Magnesium 1.8 mg/dL (1.6-2.3); Non-African American GFR(CKD) 52 (>60 ml/min/1.73 sqM); Potassium 3.8 mmol/L (3.5-5.1); Sodium 139 mmol/L (137-145); Total Protein 6.7 g/dL (6.3-8.2)
[2022-09-19 08:45] LABS: RBC Morphology Normal
[2022-09-19 08:46] LABS: Platelet Count 57 k/uL (150-450)
--- NOTE | 2022-09-19 09:36 | CT ---
EXAMINATION TYPE: CT chest angio for PE DATE OF EXAM: 09/19/2022 COMPARISON: None HISTORY: Hemoptysis, chest pain, and SOB CT DLP: 430.4 mGycm CONTRAST: CT chest with contrast and 3D reconstruction with MIP imaging is performed without and with IV Contra st, patient injected with 100 ml mL of Isovue 370. Contrast-enhanced CT of the chest was performed through the course of the pulmonary arteries with miranda g and mediastinal window settings submitted. 3D reconstruction with MIP imaging was also performed. PULMONARY ARTERIES: The pulmonary arteries and their major tributaries are patent. I do not see rose dence for sizable filling defect to suggest pulmonary embolic process. Correlate for pulmonary arteri al hypertension. LUNGS: Limited infiltrates or atelectasis in the region of the lingula. Upper lobe groundglass densit y may reflect acute inflammatory process versus congestion. No pulmonary nodule or mass is detected. No pleural effusion. MEDIASTINUM: There is evidence of moderate cardiomegaly. The thoracic aorta is ectatic and aneurysmal . At the level of the mary carmen the thoracic aorta measures 5.2 cm in greatest AP dimension. There is no evidence for dissection. Ascending thoracic aorta is of normal caliber. No evidence for mediastinal mass. No mediastinal lymph nodes greater than 1cm. HILAR STRUCTURES: No evidence for mass. No hilar lymph nodes greater than 1 cm. UPPER ABDOMEN: Partially imaged splenomegaly as well as hepatomegaly. Correlate for underlying cirrho tic liver disease. IMPRESSION: 1. No evidence for Pulmonary embolism at this time. 2. Descending thoracic aortic aneurysm and ectasia. No evidence for dissection. 3. Limited infiltrate or atelectasis in the region of the lingula. Upper lobe groundglass density may reflect acute inflammatory process versus congestion.
[2022-09-19] MEDS ORDERED: cefTRIAXone IN SWFI 1,000 MG/10 ML SYRINGE IVP STA (09:49)
[2022-09-19 09:55] VITALS: BP 196/79; PULSE 76; RESP 17; TEMP 99
== END 2022-09-19 10:15 | disposition home or self-care (01) ==
LOC: EC 06:30
DX: J18.9 Pneumonia, unspecified organism (principal); D72.819 Decreased white blood cell count, unspecified; I10 Essential (primary) hypertension; J44.9 Chronic obstructive pulmonary disease, unspecified; F17.200 Nicotine dependence, unspecified, uncomplicated; Z79.51 Long term (current) use of inhaled steroids; Z79.82 Long term (current) use of aspirin; Z79.899 Other long term (current) drug therapy
CPT/HCPCS: 36415; 93005; 85379; 83880; 80053; 83605; 83735; 84484; 85025; 85610; 85730; 71275; 99285; 96374; J0696; Q9967

== ENCOUNTER → 2023-01-29 | Outpatient (CLI) | payer MEDICARE, OTHER ==
[2023-01-29 13:35] LABS: African American GFR (CKD) 50 (>60 ml/min/1.73 sqM); Blood Urea Nitrogen 37 mg/dL (9-20); Non-African American GFR(CKD) 43 (>60 ml/min/1.73 sqM)
--- NOTE | 2023-01-29 14:35 | CT ---
EXAMINATION TYPE: CT chest w con CT DLP: 371 mGycm, Automated exposure control for dose reduction was used. DATE OF EXAM: 01/29/2023 2:15 PM COMPARISON: 09/19/2012. CLINICAL INDICATION:Male, 73 years old with history of J18.1 LOBAR PNEUMONIA; pneumonia TECHNIQUE: Multiple axial images were obtained through the chest. Sagittal and coronal reformats were created for review. Contrast used:75cc mL of Isovue 300 with IV Contrast (None if empty) Oral contrast used: (None if empty) FINDINGS: LUNGS/ PLEURA: Mild emphysema changes throughout the lungs. Streaky atelectasis in the lung bases. Gr oundglass opacity is also present in the lung base with airspace opacity more medially and inferiorly . Opacified airways are also present. AIRWAY: A few opacified left lower lobe airways. HEART: Moderately enlarged with aortic valvular calcifications. MEDIASTINUM: No gross evidence of adenopathy. VASCULATURE: Similar descending thoracic aorta tortuosity/aneurysmal dilation measuring up to 4.5 cm. No evidence for intimal flap to suggest dissection. Ascending thoracic aorta and aortic arch major v essels are patent. There is scattered atherosclerosis. Aortic valve leaflet calcifications are presen t. MUSCULOSKELETAL: Moderate disc degeneration changes are present throughout the thoracolumbar spine. V ertebral body hemangiomas noted at T4 and T8. SOFT TISSUES/LYMPH NODES: Unremarkable. LOWER NECK: No significant findings. UPPER ABDOMEN: Shrunken nodular liver. Spleen is enlarged measuring up to 16.8 cm. IMPRESSION: 1. Few pacified left lower lobe airways with airspace consolidation concerning for retained secretio ns/aspiration. Superimposed infection not entirely excluded. 2. Mild emphysema. 3. Stable ascending thoracic aorta fusiform dilation. 4. Severe aortic valve leaflet calcifications. 5. Hepatic cirrhosis with evidence of portal hypertension including splenomegaly.
== END | disposition home or self-care (01) ==
LOC: RADCTMAIN 12:56
PROVIDERS: ATTEND Internal Medicine Critical Care Medicine
DX: J18.1 Lobar pneumonia, unspecified organism (principal); J43.9 Emphysema, unspecified; I70.0 Atherosclerosis of aorta; K74.60 Unspecified cirrhosis of liver; K76.6 Portal hypertension; R16.1 Splenomegaly, not elsewhere classified
CPT/HCPCS: 82565; 84520; 71260; 36415; Q9967

== ENCOUNTER 2023-02-11 03:22 | Inpatient (IN) | payer OTHER, MEDICARE ==
[2023-02-11] MEDS ORDERED: SODIUM CHLORIDE 0.9% 500 ML 500 ML IV STA (03:42)
--- NOTE | 2023-02-11 03:42 | ED ---
SOB HPI - General Chief Complaint: Shortness of Breath Stated Complaint: SOB Time Seen by Provider: 02/11/23 03:25 Source: EMS, RN notes reviewed, old records reviewed Mode of arrival: EMS Limitations: no limitations - History of Present Illness Initial Comments: This is a 73-year-old male presents today for evaluation regards to shortness of breath. Chest pain. Weakness. As well as patient having history of COPD and CHF with palpitations and elevated heart rate. Patient does have persistent cough congestion with known COPD as well as known A. fib with RVR. No recent fevers MD Complaint: shortness of breath, cough, chest pain, anxiety -: days(s) Severity: severe Severity scale (1-10): 8 Consistency: constant Improves With: nothing Worsens With: nothing Known History Of: COPD, asthma Associated Symptoms: chest pain Treatments Prior to Arrival: none - Related Data Home Medications Medication Instructions Recorded Confirmed amLODIPine [Norvasc] 10 mg PO DAILY 08/06/14 02/15/23 Colchicine 0.6 mg PO DAILY 08/02/16 02/15/23 Ferrous Sulfate [Iron (65 MG 487.5 mg PO DAILY 12/29/18 02/15/23 Elemental)] Albuterol Inhaler [Ventolin Hfa 2 puff INHALATION RT-QID PRN 07/29/19 02/15/23 Inhaler] Omeprazole 20 mg PO BID 05/16/20 02/15/23 Fluticasone Propion/Salmeterol 1 puff INHALATION RT-BID 06/08/22 02/15/23 [Wixela 250-50 Inhub] hydrALAZINE HCL [Apresoline] 100 mg PO TID 06/08/22 02/15/23 Folic Acid 1 mg PO DAILY 01/14/23 02/15/23 Tiotropium 2.5 Mcg/Puff [Spiriva 1 puff INHALATION RT-BID 01/14/23 02/15/23 Respimat 2.5 Mcg] predniSONE 5 mg PO DAILY 01/14/23 02/15/23 traZODone HCL [Desyrel] 50 mg PO HS 01/14/23 02/15/23 Cholecalciferol [Vitamin D3 (25 25 mcg PO DAILY 02/11/23 02/15/23 Mcg = 1000 Iu)] Multivit-Min/FA/Lycopen/Lutein 1 tab PO DAILY 02/11/23 02/15/23 [Centrum Silver Tablet] Xylitol [Xylimelts] 500 mg MM HS 02/11/23 02/15/23 Previous Rx's Medication Instructions Recorded Metoprolol Tartrate [Lopressor] 50 mg PO TID #90 tab 02/13/23 Furosemide [Lasix] 40 mg PO BID@0900,1600 #60 tab 02/18/23 Allergies Allergy/AdvReac Type Severity Reaction Status Date / Time No Known Allergies Allergy Verified 02/15/23 17:42 Review of Systems ROS Statement: Those systems with pertinent positive or pertinent negative responses have been documented in the HPI. ROS Other: All systems not noted in ROS Statement are negative. 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 History of Any Multi-Drug Resistant Organisms: None Reported Past Surgical History: Back Surgery, Heart Catheterization, Hernia Repair, Orthopedic Surgery Additional Past Surgical History / Comment(s): liver ablation done at [facility] for tx of hepatocellular carcinoma,hemorrhoids ,back surgery, cataract, skin cancer, inguinal hernia, abdominal hernia, left shoulder, right wrist, growth removed vocal cord, PAROTID GLAD REMOVED DUE TO CANCER Past Anesthesia/Blood Transfusion Reactions: No Reported Reaction Additional Past Anesthesia/Blood Transfusion Reaction / Comment(s): no hx blood transfusion Past Psychological History: No Psychological Hx Reported Smoking Status: Current some day smoker Past Alcohol Use History: None Reported Past Drug Use History: None Reported - Past Family History Father Family Medical History: Cancer General Exam General appearance: alert, in no apparent distress, anxious Head exam: Present: atraumatic, normocephalic, normal inspection Eye exam: Present: normal appearance, PERRL, EOMI. Absent: scleral icterus, con junctival injection, periorbital swelling ENT exam: Present: normal exam, mucous membranes moist Neck exam: Present: normal inspection. Absent: tenderness, meningismus, lymphadenopathy Respiratory exam: Present: normal lung sounds bilaterally. Absent: respiratory distress, wheezes, rales, rhonchi, stridor Cardiovascular Exam: Present: normal rhythm, tachycardia, normal heart sounds. Absent: systolic murmur, diastolic murmur, rubs, gallop, clicks GI/Abdominal exam: Present: soft, normal bowel sounds. Absent: distended, tenderness, guarding, rebound, rigid Extremities exam: Present: normal inspection, full ROM, normal capillary refill. Absent: tenderness, pedal edema, joint swelling, calf tenderness Back exam: Present: normal inspection Neurological exam: Present: alert, oriented X3, CN II-XII intact Psychiatric exam: Present: normal affect, normal mood Skin exam: Present: warm, dry, intact, normal color. Absent: rash Course Vital Signs 02/11/23 02/11/23 02/11/23 03:24 03:37 03:45 Temperature 98.1 F Pulse Rate 110 H 123 H Respiratory 16 18 18 Rate Blood Pressure 144/115 136/87 O2 Sat by Pulse 98 99 Oximetry 02/11/23 02/11/23 02/11/23 04:00 04:57 05:00 Temperature Pulse Rate 103 H 112 H 103 H Respiratory 18 19 Rate Blood Pressure 129/83 134/82 O2 Sat by Pulse Oximetry 02/11/23 02/11/23 02/11/23 05:04 06:00 07:10 Temperature Pulse Rate 105 H 97 114 H Respiratory 19 18 Rate Blood Pressure 138/95 141/112 O2 Sat by Pulse 97 95 Oximetry 02/11/23 02/11/23 02/11/23 08:00 09:00 10:00 Temperature Pulse Rate 98 122 H 105 H Respiratory 18 20 20 Rate Blood Pressure 147/117 155/119 134/105 O2 Sat by Pulse 96 95 97 Oximetry 02/11/23 02/11/23 12:00 13:00 Temperature 98.4 F Pulse Rate 102 H 98 Respiratory 20 20 Rate Blood Pressure 158/99 O2 Sat by Pulse 96 97 Oximetry - Reevaluation(s) Reevaluation #1: 02/11/23 03:42 Medical records reviewed Reevaluation #2: 02/11/23 05:47 Patient has no significant change in symptoms here in the ER Reevaluation #3: 02/11/23 05:47 Patient informed results and questions answered Reevaluation #4: 02/11/23 04:54 Was pt. sent in by a medical professional or institution (, PA, PET CREMATORY WORKER, urgent care, hospital, or custodial...) When possible be specific @ -no Did you speak to anyone other than the patient for history (EMS, parent, family, police, friend...)? What history was obtained from this source @ -no Did you review nursing and triage notes (agree or disagree)? Why? @ -agree Are old charts reviewed (outside hosp., previous admission, EMS record, old EKG, old radiological studies, urgent care reports/EKG's, custodial records)? Report findings @ -yes Differential Diagnosis (chest pain, altered mental status, abdominal pain women, abdominal pain men, vaginal bleeding, weakness, fever, dyspnea, syncope, headache, dizziness, GI bleed, back pain, seizure, CVA, palpatations, mental health, musculoskeletal)? @ -prior EKG interpreted by me (3pts min.). @ -yes X-rays interpreted by me (1pt min.). @ -yes CT interpreted by me (1pt min.). @ -no U/S interpreted by me (1pt. min.). @ -no What testing was considered but not performed or refused? (CT, X-rays, U/S, labs)? Why? @ -none What meds were considered but not given or refused? Why? @ -none Did you discuss the management of the patient with other professionals (professionals i.e. , PA, PET CREMATORY WORKER, lab, RT, psych nurse, social services counselor, plate finisher, teacher, business development officer, director of casework department)? Give summary @ -no Was smoking cessation discussed for >3mins.? @ -no Was critical care preformed (if so, how long)? @ -yes31 Were there social determinants of health that impacted care today? How? (Homelessness, low income, unemployed, alcoholism, drug addiction, transportation, low edu. Level, literacy, decrease access to med. care, snf, rehab)? @ -none Was there de-escalation of care discussed even if they declined (Discuss DNR or withdrawal of care, Hospice)? DNR status @ -no What co-morbidities impacted this encounter? (DM, HTN, Smoking, COPD, CAD, Cancer, CVA, ARF, Chemo, Hep., AIDS, mental health diagnosis, sleep apnea, morbid obesity)? @ -none Was patient admitted / discharged? Hospital course, mention meds given and route, prescriptions, significant lab abnormalities, going to OR and other pertinent info. @ - 73 male to the emergency department for evaluation today. Patient's multif actorial respiratory failure in nature fibrillation with RVR COPD and CHF. Patient will be admitted for supportive care further management' Admitted chest pain, CHF, COPD, nature fibrillation with RVR Undiagnosed new problem with uncertain prognosis? @ -no Drug Therapy requiring intensive monitoring for toxicity (Heparin, Nitro, Insulin, Cardizem)? @ -no Were any procedures done? @ -no Diagnosis/symptom? @ - Acute, or Chronic, or Acute on Chronic? @ -Acute Uncomplicated (without systemic symptoms) or Complicated (systemic symptoms)? @ -Complicated Side effects of treatment? @ -no Exacerbation, Progression, or Severe Exacerbation? @ -exacerbation Poses a threat to life or bodily function? How? (Chest pain, [place], [place], pneumonia, PE, COPD, DKA, ARF, appy, cholecystitis, CVA, Diverticulitis, Homicidal, Suicidal, threat to staff... and all critical care pts) @ -yes with multiple comorbidities causing respiratory failure Reevaluation #5: 02/11/23 04:54 Differential Chest Pain: Stable Angina, Unstable Angina, STEMI, NSTEMI Aortic Dissection, Pneumothorax, Musculoskeletal, Esophageal Spasm GERD, Cholecystitis, Pancreatitis, Zoster, this is not meant to be an all-inclusive list. - Consultations Consultation #1: Spoke with admitting physicians will admit this patient Medical Decision Making - Medical Decision Making 73 male to the emergency department for evaluation today. Patient's multifactorial respiratory failure in nature fibrillation with RVR COPD and CHF. Patient will be admitted for supportive care further management - Lab Data Result diagrams: 02/13/23 10:47 02/13/23 10:47 Lab Results 02/11/23 02/11/23 02/11/23 Range/Units 03:45 03:45 03:45 WBC 1.1 L* (3.8-10.6) k/uL RBC 4.28 L (4.30-5.90) m/uL Hgb 11.9 L (13.0-17.5) gm/dL Hct 37.1 L (39.0-53.0) % MCV 86.8 (80.0-100.0) fL MCH 27.8 (25.0-35.0) pg MCHC 32.0 (31.0-37.0) g/dL RDW 16.9 H (11.5-15.5) % Plt Count 51 L (150-450) k/uL MPV 10.8 Neutrophils % 67 % Lymphocytes % 16 % Monocytes % 9 % Eosinophils % 5 % Basophils % 0 % Neutrophils # 0.7 L (1.3-7.7) k/uL Lymphocytes # 0.2 L (1.0-4.8) k/uL Monocytes # 0.1 (0-1.0) k/uL Eosinophils # 0.1 (0-0.7) k/uL Basophils # 0.0 (0-0.2) k/uL Manual Slide Review Pathologist Review Anisocytosis Slight PT 11.3 (10.0-12.5) sec INR 1.0 (<1.2) APTT 29.2 (22.0-30.0) sec Sodium 141 (137-145) mmol/L Potassium 4.1 (3.5-5.1) mmol/L Chloride 109 H (98-107) mmol/L Carbon Dioxide 21 L (22-30) mmol/L Anion Gap 11 mmol/L BUN 37 H (9-20) mg/dL Creatinine 1.60 H (0.66-1.25) mg/dL Est GFR (CKD-EPI)AfAm 49 (>60 ml/min/1.73 sqM) Est GFR (CKD-EPI)NonAf 43 (>60 ml/min/1.73 sqM) Glucose 116 H (74-99) mg/dL Plasma Lactic Acid Rashel (0.7-2.0) mmol/L Calcium 8.7 (8.4-10.2) mg/dL Magnesium 1.9 (1.6-2.3) mg/dL Total Bilirubin 0.7 (0.2-1.3) mg/dL AST 30 (17-59) U/L ALT 25 (4-49) U/L Alkaline Phosphatase 100 (38-126) U/L Troponin I (0.000-0.034) ng/mL NT-Pro-B Natriuret Pep 6770 pg/mL Total Protein 6.5 (6.3-8.2) g/dL Albumin 3.6 (3.5-5.0) g/dL 02/11/23 02/11/23 02/11/23 Range/Units 03:45 03:45 05:07 WBC 1.0 L* (3.8-10.6) k/uL RBC 3.90 L (4.30-5.90) m/uL Hgb 11.1 L (13.0-17.5) gm/dL Hct 33.8 L (39.0-53.0) % MCV 86.6 (80.0-100.0) fL MCH 28.6 (25.0-35.0) pg MCHC 33.0 (31.0-37.0) g/dL RDW 17.0 H (11.5-15.5) % Plt Count 47 L (150-450) k/uL MPV 9.5 Neutrophils % 65 % Lymphocytes % 19 % Monocytes % 9 % Eosinophils % 4 % Basophils % 1 % Neutrophils # 0.7 L (1.3-7.7) k/uL Lymphocytes # 0.2 L (1.0-4.8) k/uL Monocytes # 0.1 (0-1.0) k/uL Eosinophils # 0.1 (0-0.7) k/uL Basophils # 0.0 (0-0.2) k/uL Manual Slide Review Performed Pathologist Review Cancelled Anisocytosis Slight PT (10.0-12.5) sec INR (<1.2) APTT (22.0-30.0) sec Sodium (137-145) mmol/L Potassium (3.5-5.1) mmol/L Chloride (98-107) mmol/L Carbon Dioxide (22-30) mmol/L Anion Gap mmol/L BUN (9-20) mg/dL Creatinine (0.66-1.25) mg/dL Est GFR (CKD-EPI)AfAm (>60 ml/min/1.73 sqM) Est GFR (CKD-EPI)NonAf (>60 ml/min/1.73 sqM) Glucose (74-99) mg/dL Plasma Lactic Acid Rashel 0.9 (0.7-2.0) mmol/L Calcium (8.4-10.2) mg/dL Magnesium (1.6-2.3) mg/dL Total Bilirubin (0.2-1.3) mg/dL AST (17-59) U/L ALT (4-49) U/L Alkaline Phosphatase (38-126) U/L Troponin I 0.034 (0.000-0.034) ng/mL NT-Pro-B Natriuret Pep pg/mL Total Protein (6.3-8.2) g/dL Albumin (3.5-5.0) g/dL - EKG Data -: EKG Interpreted by Me (A. fib with RVR 112 QRS 190 QTC 413) - Radiology Data Radiology results: report reviewed (COPD, CHF and atrial fibrillation with RVR), image reviewed Critical Care Time Critical Care Time: Yes Total Critical Care Time: 31 Disposition Clinical Impression: Congestive heart failure, Acute exacerbation of chronic obstructive pulmonary d isease, Atrial fibrillation with RVR Disposition: ADMITTED IP TO THIS HOSP Condition: Fair Is patient prescribed a controlled substance at d/c from ED?: No Time of Disposition: 06:30
[2023-02-11] MEDS ORDERED: DILTIAZEM 5 MG/ML 5 ML VIAL IVP STA (04:35)
[2023-02-11] MEDS ORDERED: IPRATROPIUM-ALBUTEROL 3 ML NEB INHALATION STA (04:35)
[2023-02-11 04:37] LABS: Anisocytosis Slight; Basophils % (A) 0 %; Eosinophils # (A) 0.1 k/uL (0-0.7); Eosinophils % (A) 5 %; HCT 37.1 % (39.0-53.0); HGB 11.9 gm/dL (13.0-17.5); Lymphocytes # (A) 0.2 k/uL (1.0-4.8); Lymphocytes % (A) 16 %; MCH 27.8 pg (25.0-35.0); MCV 86.8 fL (80.0-100.0); Mean Platelet Volume 10.8; Monocytes # (A) 0.1 k/uL (0-1.0); Monocytes % (A) 9 %; Neutrophils # (A) 0.7 k/uL (1.3-7.7); Neutrophils % (A) 67 %; Platelet Count 51 k/uL (150-450); RBC 4.28 m/uL (4.30-5.90); RDW 16.9 % (11.5-15.5)
[2023-02-11 04:38] LABS: ALT 25 U/L (4-49); AST 30 U/L (17-59); African American GFR (CKD) 49 (>60 ml/min/1.73 sqM); Albumin 3.6 g/dL (3.5-5.0); Alkaline Phosphatase 100 U/L (38-126); Anion Gap 11 mmol/L; Blood Urea Nitrogen 37 mg/dL (9-20); Calcium 8.7 mg/dL (8.4-10.2); Carbon Dioxide 21 mmol/L (22-30); Chloride 109 mmol/L (98-107); Glucose 116 mg/dL (74-99); Magnesium 1.9 mg/dL (1.6-2.3); Non-African American GFR(CKD) 43 (>60 ml/min/1.73 sqM); Potassium 4.1 mmol/L (3.5-5.1); Sodium 141 mmol/L (137-145); Total Bilirubin 0.7 mg/dL (0.2-1.3); Total Protein 6.5 g/dL (6.3-8.2)
[2023-02-11 04:41] LABS: Partial Thromboplastin Time 29.2 sec (22.0-30.0); Prothrombin Time 11.3 sec (10.0-12.5)
[2023-02-11 04:42] LABS: WBC 1.1 k/uL (3.8-10.6)
[2023-02-11 04:46] LABS: NT-Pro-B-Type Natriuretic Pept 6770 pg/mL
[2023-02-11 05:23] LABS: Anisocytosis Slight; Basophils % (A) 1 %; Eosinophils # (A) 0.1 k/uL (0-0.7); Eosinophils % (A) 4 %; HCT 33.8 % (39.0-53.0); HGB 11.1 gm/dL (13.0-17.5); Lymphocytes # (A) 0.2 k/uL (1.0-4.8); Lymphocytes % (A) 19 %; MCH 28.6 pg (25.0-35.0); MCV 86.6 fL (80.0-100.0); Mean Platelet Volume 9.5; Monocytes # (A) 0.1 k/uL (0-1.0); Monocytes % (A) 9 %; Neutrophils # (A) 0.7 k/uL (1.3-7.7); Neutrophils % (A) 65 %
[2023-02-11 05:26] LABS: Platelet Count 47 k/uL (150-450)
--- NOTE | 2023-02-11 06:36 | XR ---
EXAM: XR Chest, 1 View CLINICAL HISTORY: ITS.REASON XR Reason: cp TECHNIQUE: Frontal view of the chest. COMPARISON: 01/23/23 FINDINGS: Lungs: Interval increase in interstitial opacity in perihilar opacity which may reflect edema. Focal linear density in the left upper and midlung which may reflect focal atelectasis. Pleural space: Unremarkable. No pneumothorax. Heart: Cardiovascular silhouette appears mildly enlarged. Mediastinum: Unremarkable. Bones/joints: Scoliosis of the thoracic spine. Vasculature: Tortuous calcified thoracic aorta again seen. Tubes, lines and devices: Overlying chest leads obscure portion of the chest. IMPRESSION: 1. Findings which may reflect developing pulmonary edema or pneumonia. 2. Focal subsegmental atelectasis in the left upper to midlung. 3. Mild cardiomegaly
[2023-02-11] MEDS ORDERED: NALOXONE 0.4 MG/ML 1 ML VIAL IV PRN (06:37)
[2023-02-11] MEDS ORDERED: MORPHINE SULFATE 4 MG/ML SYRINGE IV PRN (06:37)
[2023-02-11] MEDS ORDERED: ONDANSETRON 4 MG/2 ML VIAL IVP PRN (06:37)
[2023-02-11] MEDS ORDERED: SODIUM CHLORIDE 0.9% 1,000 ML IV SCH (06:45)
[2023-02-11] MEDS ORDERED: METOPROLOL TARTRATE 25 MG TAB PO SCH (10:00)
[2023-02-11] MEDS: FERROUS SULFATE 325 MG TAB PO SCH (10:38)
[2023-02-11] MEDS: methylPREDNISolone SOD SUCCI 40 MG/ML 1 ML VIAL IV SCH ×3 (10:38→23:11)
[2023-02-11] MEDS: METOPROLOL TARTRATE 25 MG TAB PO SCH ×3 (10:38→21:31)
[2023-02-11] MEDS: amLODIPine 10 MG TAB PO SCH (10:38)
[2023-02-11] MEDS: FUROSEMIDE 10 MG/ML 2 ML VIAL IV SCH ×2 (10:38→21:31)
[2023-02-11] MEDS: HYDROcodone/APAP 10-325MG 1 EACH TAB PO PRN ×3 (10:39→23:11)
--- NOTE | 2023-02-11 11:54 | CONS ---
CONSULTATION CHIEF COMPLAINT: Atrial fibrillation with rapid ventricular rate. HISTORY OF PRESENT ILLNESS: This is a 73-year-old gentleman with complex and multiple medical problems including hypertension, paroxysmal atrial fibrillation, moderate to severe aortic stenosis and regurgitation, chronic renal insufficiency; liver cancer, status post ablation; parotid gland cancer, status post resection and radiation, who was recently seen in our office where he follows Dr. Post regularly and was found to be in atrial fibrillation with slightly elevated heart rate. It was felt that he is not a candidate for anticoagulation because of thrombocytopenia. The patient has known aortic stenosis and regurgitation, which is currently being followed. The plan was to perform a MAHESH. The patient comes in complaining of shortness of breath and sustained palpitations. He was found to be in atrial fibrillation with rapid ventricular rate with a heart rate of 112 beats per minute and there were PVCs also. At the time of my evaluation, the patient appears comfortable at rest. Heart rate is 105 beats per minute, blood pressure 130/105, respiratory rate is 18, O2 saturation is 97% of 4 L. He has bilateral leg edema. Denied any chest pain, PND or orthopnea. His white cell count is low at 1, platelet count is 47, hemoglobin is 11.1. BNP is elevated at 6770. Troponin is normal. The patient's clinical presentation is consistent with acute exacerbation of chronic systolic heart failure and persistent atrial fibrillation with poorly controlled ventricular rate. PAST MEDICAL HISTORY: Significant for paroxysmal atrial fibrillation, hypertension, valvular heart disease, congestive heart failure, and liver cancer along with thrombocytopenia. MEDICATIONS: Medications at home included, 1. Norvasc. 2. Apresoline. 3. Desyrel. 4. Prednisone. 5. Spiriva. 6. Cozaar. 7. [place]. 8. Wixela. 9. Iron. 10.Colchicine. 11.Vitamin D. 12.Albuterol. ALLERGIES: There are no known drug allergies. FAMILY HISTORY: Negative for premature coronary artery disease. SOCIAL HISTORY: Negative for current smoking, EtOH abuse, or drug abuse. REVIEW OF SYSTEMS: 14 out of 14 review of systems has been performed, pertinents are as documented. PHYSICAL EXAMINATION: VITAL SIGNS: Heart rate is 108 beats per minute, irregular, blood pressure 130/105, respiratory rate 18. CHEST: Reveals diminished air entry at the bases. I do not hear any crackles or rhonchi. HEART: Reveals first and second heart sounds. Grade 4/6 ejection systolic murmur in the aortic area. ABDOMEN: Distended, but soft. EXTREMITIES: Examination of extremities reveals bilateral pitting edema, more on the left than on the right. ASSESSMENT: 1. Persistent atrial fibrillation with poorly controlled ventricular rate, acute on chronic congestive heart failure, systolic. 2. Aortic stenosis and regurgitation. PLAN: I will treat the patient with Lasix, metoprolol for rate control. Continue rest of his medications. On discharge, I will arrange followup with Dr. Post to address the underlying valvular heart disease. He is not a candidate for anticoagulation because of thrombocytopenia and the risk of bleeding. The patient should be evaluated for possible Watchman device and this will be done on outpatient followup. MMODL / IJN: [id number] /
--- NOTE | 2023-02-11 15:14 | P.CNPUL ---
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 He presented to the emergency room early this morning after developing chest pain, weakness and palpitations and shortness of breath. He was found to be in atrial fibrillation with a rapid ventricular response. X-ray reveals evidence of increased interstitial opacity consistent basis for edema versus pneumonia. Focal subsegmental atelectasis in the left upper to mid lung. Mild cardiomegaly. White count 1.0. Hemoglobin 11.1. Platelets 47,000. Sodium 141. Potassium 4.1. Bicarb 21. BUN 37. Creatinine 1.60. Glucose 116. Troponins negative 2. ProBNP 6770. He is seen today in consultation on the selective care unit. He is currently sitting up in a chair at the bedside. Awake and alert in no acute distress. Continue O2 saturations in the upper 90s on 4 L/m per nasal cannula. He is afebrile. Somewhat hypertensive. Still tachycardic. He denies any shortness of breath at rest. He does have dyspnea on exertion. He's been initiated on Symbicort, DuoNeb inhalations, Solu-Medrol. Lasix 20 g IV every 12 hours. Review of Systems REVIEW OF SYSTEMS: CONSTITUTIONAL: Denies any recent significant weight loss or weight gain. EYES: Denies change in vision. EARS, NOSE, MOUTH, THROAT: Denies headaches, denies sore throat. CARDIOVASCULAR: Positive for chest pain, palpitations no syncopal episodes. RESPIRATORY: Positive for shortness of breath, cough, congestion no hemoptysis. GASTROINTESTINAL: Denies change in appetite, denies abdominal pain GENITOURINARY: Denies hematuria, denies infections. MUSKULOSKELETAL: Denies pain, denies swelling. INTEGUMENTARY: Denies rash, denies eczema. NEUROLOGICAL: Denies recent memory loss, no recent seizure activity. PSYCHIATRIC: Denies anxiety, denies depression. HEMATOLOGIC/LYMPHATIC: Denies anemia, denies enlarged lymph nodes. 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 History of Any Multi-Drug Resistant Organisms: None Reported Past Surgical History: Back Surgery, Heart Catheterization, Hernia Repair, Orthopedic Surgery Additional Past Surgical History / Comment(s): liver ablation done at [place] for tx of hepatocellular carcinoma,hemorrhoids ,back surgery, cataract, skin cancer, inguinal hernia, abdominal hernia, left shoulder, right wrist, growth removed vocal cord, PAROTID GLAD REMOVED DUE TO CANCER Past Anesthesia/Blood Transfusion Reactions: No Reported Reaction Additional Past Anesthesia/Blood Transfusion Reaction / Comment(s): no hx blood transfusion Past Psychological History: No Psychological Hx Reported Smoking Status: Current some day smoker Past Alcohol Use History: None Reported Past Drug Use History: None Reported - Past Family History Father Family Medical History: Cancer Medications and Allergies Home Medications Medication Instructions Recorded Confirmed Type Losartan Potassium [Cozaar] 100 mg PO DAILY 08/06/14 02/11/23 History amLODIPine [Norvasc] 10 mg PO DAILY 08/06/14 02/11/23 History Colchicine 0.6 mg PO DAILY 08/02/16 02/11/23 History Hydrocodone/Acetaminophen [[place] 1 tab PO QID PRN 08/31/18 02/11/23 History 10-325] Ferrous Sulfate [Iron (65 MG 487.5 mg PO DAILY 12/29/18 02/11/23 History Elemental)] Albuterol Inhaler [Ventolin Hfa 2 puff INHALATION RT-QID PRN 07/29/19 02/11/23 History Inhaler] Omeprazole 20 mg PO BID 05/16/20 02/11/23 History Fluticasone Propion/Salmeterol 1 puff INHALATION RT-BID 06/08/22 02/11/23 History [Wixela 250-50 Inhub] Metoprolol Tartrate 12.5 - 25 mg PO DAILY 06/08/22 02/11/23 History hydrALAZINE HCL [Apresoline] 100 mg PO TID 06/08/22 02/11/23 History Folic Acid 1 mg PO DAILY 01/14/23 02/11/23 History Tiotropium 2.5 Mcg/Puff [Spiriva 1 puff INHALATION RT-BID 01/14/23 02/11/23 History Respimat 2.5 Mcg] predniSONE 5 mg PO DAILY 01/14/23 02/11/23 History traZODone HCL [Desyrel] 50 mg PO HS 01/14/23 02/11/23 History Cholecalciferol [Vitamin D3 (25 25 mcg PO DAILY 02/11/23 02/11/23 History Mcg = 1000 Iu)] Multivit-Min/FA/Lycopen/Lutein 1 tab PO DAILY 02/11/23 02/11/23 History [Centrum Silver Tablet] Xylitol [Xylimelts] 500 mg MM HS 02/11/23 02/11/23 History Allergies Allergy/AdvReac Type Severity Reaction Status Date / Time No Known Allergies Allergy Verified 02/11/23 07:03 Physical Exam Vitals: Vital Signs Temp Pulse Resp BP Pulse Ox 02/11/23 13:00 98.4 F 98 20 158/99 97 02/11/23 12:00 102 H 20 96 02/11/23 10:00 105 H 20 134/105 97 02/11/23 09:00 122 H 20 155/119 95 02/11/23 08:00 98 18 147/117 96 02/11/23 07:10 114 H 18 141/112 95 02/11/23 06:00 97 19 138/95 97 02/11/23 05:04 105 H 02/11/23 05:00 103 H 19 134/82 02/11/23 04:57 112 H 02/11/23 04:00 103 H 18 129/83 02/11/23 03:45 123 H 18 136/87 99 02/11/23 03:37 18 02/11/23 03:24 98.1 F 110 H 16 144/115 98 Intake and Output 02/10/23 02/11/23 02/11/23 22:59 06:59 14:59 Other: Weight 83.915 kg GENERAL EXAM: Alert, pleasant 73-year-old male patient, on 4 L nasal cannula, up in a chair, fairly comfortable in no apparent distress. HEAD: Normocephalic. EYES: Normal reaction of pupils, equal size. NOSE: Clear with pink turbinates. THROAT: No erythema or exudates. NECK: No masses, no JVD. CHEST: No chest wall deformity. LUNGS: Equal air entry with crackles in the posterior bases, end expiratory wheeze, diminished. CVS: S1 and S2 normal with an audible murmur, irregular rhythm. ABDOMEN: No hepatosplenomegaly, normal bowel sounds, no guarding or rigidity. SPINE: No scoliosis or deformity SKIN: No rashes CENTRAL NERVOUS SYSTEM: No focal deficits, tone is normal in all 4 extremities. EXTREMITIES: There is no peripheral edema. No clubbing, no cyanosis. Peripheral pulses are intact. Results - Laboratory Findings CBC and BMP: 02/11/23 05:07 02/11/23 03:45 PT/INR, D-dimer PT 11.3 sec (10.0-12.5) 02/11/23 03:45 INR 1.0 (<1.2) 02/11/23 03:45 Abnormal lab findings: Abnormal Labs 02/11/23 02/11/23 02/11/23 03:45 03:45 05:07 WBC 1.1 L* 1.0 L* RBC 4.28 L 3.90 L Hgb 11.9 L 11.1 L Hct 37.1 L 33.8 L RDW 16.9 H 17.0 H Plt Count 51 L 47 L Neutrophils # 0.7 L 0.7 L Lymphocytes # 0.2 L 0.2 L Chloride 109 H Carbon Dioxide 21 L BUN 37 H Creatinine 1.60 H Glucose 116 H - Diagnostic Findings Chest x-ray: image reviewed Assessment and Plan Assessment: Acute on chronic hypoxemic respiratory failure secondary to suspected systolic versus diastolic congestive heart failure Atrial fibrillation with rapid ventricular response not on anticoagulants due to pancytopenia Moderate to severe aortic stenosis Pancytopenia of unclear etiology Chronic obstructive pulmonary disease oxygen dependent, steroid dependent Chronic tobacco dependence Hyperlipidemia Hypertension History of hepatocellular carcinoma status post ablation History of parotid gland cancer status post resection Plan: The patient was seen and evaluated Chest x-ray, labs, EKG and medications reviewed Continue with IV diuretics Continue bronchodilators, steroids Titrate the FiO2 as tolerated Hematology consult We will continue to follow and make further recommendations based on his clinical status I have personally seen and examined the patient, performed the documentation and the assessment and plan as written. Number of minutes spent on the visit: 20.
[2023-02-11] MEDS: IPRATROPIUM-ALBUTEROL 3 ML NEB INHALATION PRN (20:23)
[2023-02-11] MEDS: SYMBICORT 80-4.5 MCG INHALER INHALATION SCH (20:23)
[2023-02-11] MEDS: traZODone HCL 50 MG TAB PO SCH (23:10)
[2023-02-12] MEDS: PANTOPRAZOLE 40 MG TABLET PO SCH (06:29)
[2023-02-12] MEDS: HYDROcodone/APAP 10-325MG 1 EACH TAB PO PRN ×3 (06:54→20:06)
[2023-02-12] MEDS: FUROSEMIDE 10 MG/ML 2 ML VIAL IV SCH ×2 (08:16→20:07)
[2023-02-12] MEDS: FOLIC ACID 1 MG TAB PO SCH (08:17)
[2023-02-12] MEDS: COLCHICINE 0.6 MG EACH PO SCH (08:17)
[2023-02-12] MEDS: amLODIPine 10 MG TAB PO SCH (08:17)
[2023-02-12] MEDS: FERROUS SULFATE 325 MG TAB PO SCH (08:17)
[2023-02-12] MEDS: METOPROLOL TARTRATE 25 MG TAB PO SCH (08:17)
[2023-02-12] MEDS: methylPREDNISolone SOD SUCCI 40 MG/ML 1 ML VIAL IV SCH (08:18)
[2023-02-12] MEDS: SYMBICORT 80-4.5 MCG INHALER INHALATION SCH (08:47)
[2023-02-12 12:13] LABS: African American GFR (CKD) 42 (>60 ml/min/1.73 sqM); Anion Gap 11 mmol/L; Blood Urea Nitrogen 40 mg/dL (9-20); Calcium 9.3 mg/dL (8.4-10.2); Carbon Dioxide 26 mmol/L (22-30); Chloride 101 mmol/L (98-107); Glucose 113 mg/dL (74-99); Magnesium 1.9 mg/dL (1.6-2.3); Non-African American GFR(CKD) 37 (>60 ml/min/1.73 sqM); Potassium 4.9 mmol/L (3.5-5.1); Sodium 138 mmol/L (137-145)
[2023-02-12 12:22] LABS: Anisocytosis Slight; Basophils % (A) 0 %; Eosinophils % (A) 0 %; HGB 12.1 gm/dL (13.0-17.5); Lymphocytes # (A) 0.2 k/uL (1.0-4.8); Lymphocytes % (A) 6 %; MCHC 32.8 g/dL (31.0-37.0); MCV 88.3 fL (80.0-100.0); Mean Platelet Volume 9.5; Monocytes # (A) 0.1 k/uL (0-1.0); Monocytes % (A) 4 %; Neutrophils # (A) 2.8 k/uL (1.3-7.7); Neutrophils % (A) 89 %; RBC 4.19 m/uL (4.30-5.90); RDW 16.7 % (11.5-15.5); WBC 3.2 k/uL (3.8-10.6)
[2023-02-12 12:23] LABS: Platelet Count 67 k/uL (150-450)
--- NOTE | 2023-02-12 12:29 | P.HPIM ---
History of Present Illness H&P Date: 02/11/23 History of present illness; patient is a 73-year-old gentleman with past medical history significant for chronic liver disease, alcohol-induced cirrhosis, thrombocytopenia, iron deficiency anemia from bleeding esophageal varices history of hep C, COPD previous history of atrial fibrillation, hyperlipidemia, hepatocellular carcinoma, aortic stenosis, chronic kidney disease stage IIIa who presented to the hospital because of worsening shortness of breath and weakness. Patient has been complaining of increasing shortness of breath on exertion for the last few days. Also complaining of palpitations. Denies any chest pain. Denies any fever or chills. Patient is complaining of cough is productive. Because of these symptoms, patient presented to the ER Initial lab work done in the ER showed WBC 1, hemoglobin 11.9, platelet count 51, sodium 141, potassium 4.1, BUN 37, creatinine 1.60, magnesium 1.9, bilirubin 0.7, AST 30, ALT 25, troponin 0.034 proBNP 6770 EKG done in the ER heart rate 112, QRS 119, irregular, no periods, no ST segment elevation seen, no T-wave inversion, frequent PVCs Chest x-ray done in the ER finding suspicious or developing pulmonary edema versus pneumonia, focal subsegmental atelectasis in the left upper to Midlung Patient admitted to medicine service REVIEW OF SYSTEMS: CONSTITUTIONAL: No fever, as mentioned above HEENT: No recent visual problems or hearing problems. Denied any sore throat. CARDIOVASCULAR: As mentioned in HPI PULMONARY: As mentioned in HPI GASTROINTESTINAL: No diarrhea, no nausea, no vomiting, no abdominal pain. NEUROLOGICAL: No headaches, no weakness, no numbness. HEMATOLOGICAL: Denies any bleeding or petechiae. GENITOURINARY: Denies any burning micturition, frequency, or urgency. MUSCULOSKELETAL/RHEUMATOLOGICAL: Denies any joint pain, swelling, or any muscle pain. ENDOCRINE: Denies any polyuria or polydipsia. The rest of the 14-point review of systems is negative. PHYSICAL EXAMINATION: GENERAL: The patient is alert and oriented x3, not in any acute distress. Well developed, well nourished. HEENT: Pupils are round and equally reacting to light. EOMI. No scleral icterus. No conjunctival pallor. Normocephalic, atraumatic. No pharyngeal erythema. No thyromegaly. CARDIOVASCULAR: S1 and S2 present. No murmurs, rubs, or gallops. Irregular in rate and rhythm PULMONARY: Coarse breath some bilaterally, no wheeze ABDOMEN: Soft, nontender, nondistended, normoactive bowel sounds. No palpable organomegaly. MUSCULOSKELETAL: No joint swelling or deformity. EXTREMITIES: No cyanosis, clubbing, or pedal edema. NEUROLOGICAL: Gross neurological examination did not reveal any focal deficits. SKIN: No rashes. Assessment and plan A. fib with RVR Acute hypoxic respiratory failure acute COPD exacerbation Hypertension Anemia Hyperlipidemia Chronic kidney disease stage III Pancytopenia Moderate severe aortic stenosis History of parotid gland cancer and liver cancer Monitor vital signs Monitor CBC Monitor CMP Continue telemetry monitoring Monitor lites. Strict I's and O's, daily weights, start Lasix 20 mg every 12 start lopressor 25 mg tid Continue breathing treatments Start IV Solu-Medrol 40 mg every 8 Ordered 2-D echo Consult cardiology Consult pulmonology Labs and medication were reviewed.. Continue same treatment. Continue with symptomatic treatment. Resume home medication. Monitor labs and vitals. DVT and GI prophylaxis. Further recommendations as per clinical course of the patient Dictation was produced using [employer] dictation software. please excuse any grammatical, word or spelling errors. 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 History of Any Multi-Drug Resistant Organisms: None Reported Past Surgical History: Back Surgery, Heart Catheterization, Hernia Repair, Ortho pedic Surgery Additional Past Surgical History / Comment(s): liver ablation done at [place] for tx of hepatocellular carcinoma,hemorrhoids ,back surgery, cataract, skin cancer, inguinal hernia, abdominal hernia, left shoulder, right wrist, growth removed vocal cord, PAROTID GLAD REMOVED DUE TO CANCER Past Anesthesia/Blood Transfusion Reactions: No Reported Reaction Additional Past Anesthesia/Blood Transfusion Reaction / Comment(s): no hx blood transfusion Past Psychological History: No Psychological Hx Reported Smoking Status: Current some day smoker Past Alcohol Use History: None Reported Past Drug Use History: None Reported - Past Family History Father Family Medical History: Cancer Medications and Allergies Home Medications Medication Instructions Recorded Confirmed Type Losartan Potassium [Cozaar] 100 mg PO DAILY 08/06/14 02/11/23 History amLODIPine [Norvasc] 10 mg PO DAILY 08/06/14 02/11/23 History Colchicine 0.6 mg PO DAILY 08/02/16 02/11/23 History Hydrocodone/Acetaminophen [[place] 1 tab PO QID PRN 08/31/18 02/11/23 History 10-325] Ferrous Sulfate [Iron (65 MG 487.5 mg PO DAILY 12/29/18 02/11/23 History Elemental)] Albuterol Inhaler [Ventolin Hfa 2 puff INHALATION RT-QID PRN 07/29/19 02/11/23 History Inhaler] Omeprazole 20 mg PO BID 05/16/20 02/11/23 History Fluticasone Propion/Salmeterol 1 puff INHALATION RT-BID 06/08/22 02/11/23 History [Wixela 250-50 Inhub] Metoprolol Tartrate 12.5 - 25 mg PO DAILY 06/08/22 02/11/23 History hydrALAZINE HCL [Apresoline] 100 mg PO TID 06/08/22 02/11/23 History Folic Acid 1 mg PO DAILY 01/14/23 02/11/23 History Tiotropium 2.5 Mcg/Puff [Spiriva 1 puff INHALATION RT-BID 01/14/23 02/11/23 History Respimat 2.5 Mcg] predniSONE 5 mg PO DAILY 01/14/23 02/11/23 History traZODone HCL [Desyrel] 50 mg PO HS 01/14/23 02/11/23 History Cholecalciferol [Vitamin D3 (25 25 mcg PO DAILY 02/11/23 02/11/23 History Mcg = 1000 Iu)] Multivit-Min/FA/Lycopen/Lutein 1 tab PO DAILY 02/11/23 02/11/23 History [Centrum Silver Tablet] Xylitol [Xylimelts] 500 mg MM HS 02/11/23 02/11/23 History Allergies Allergy/AdvReac Type Severity Reaction Status Date / Time No Known Allergies Allergy Verified 02/11/23 07:03 Physical Exam Vitals: Vital Signs Temp Pulse Resp BP Pulse Ox 02/11/23 06:00 97 19 138/95 97 02/11/23 05:04 105 H 02/11/23 05:00 103 H 19 134/82 02/11/23 04:57 112 H 02/11/23 04:00 103 H 18 129/83 02/11/23 03:45 123 H 18 136/87 99 02/11/23 03:37 18 02/11/23 03:24 98.1 F 110 H 16 144/115 98 Intake and Output 02/10/23 02/11/23 02/11/23 22:59 06:59 14:59 Other: Weight 83.915 kg Results CBC & Chem 7: 02/12/23 11:16 02/12/23 11:16 Labs: Abnormal Lab Results - Last 24 Hours (Table) 02/11/23 02/11/23 02/11/23 Range/Units 03:45 03:45 05:07 WBC 1.1 L* 1.0 L* (3.8-10.6) k/uL RBC 4.28 L 3.90 L (4.30-5.90) m/uL Hgb 11.9 L 11.1 L (13.0-17.5) gm/dL Hct 37.1 L 33.8 L (39.0-53.0) % RDW 16.9 H 17.0 H (11.5-15.5) % Plt Count 51 L 47 L (150-450) k/uL Neutrophils # 0.7 L 0.7 L (1.3-7.7) k/uL Lymphocytes # 0.2 L 0.2 L (1.0-4.8) k/uL Chloride 109 H (98-107) mmol/L Carbon Dioxide 21 L (22-30) mmol/L BUN 37 H (9-20) mg/dL Creatinine 1.60 H (0.66-1.25) mg/dL Glucose 116 H (74-99) mg/dL
--- NOTE | 2023-02-12 12:46 | CA ---
Transthoracic Echo Report Name: Chaitanya Morales Age: 73 Gender: M : 1950 Exam Date: 02/12/2023 10:17 Exam Location: [place] [facility] Ht (in): 70 Wt (lb): 185 Ordering Physician: Keely Delgado Attending/Referring Phys: [id number], Danny Pcu Rn Orquidea Trujillo [facility] Procedure CPT: Indications: LVF Cardiac Hx: Technical Quality: Fair Contrast 1: Total Dose (mL): Contrast 2: Total Dose (mL): MEASUREMENTS (Male / Female) Normal Values 2D ECHO LV Diastolic Diameter PLAX 6.4 cm 4.2 - 5.9 / 3.9 - 5.3 cm LV Systolic Diameter PLAX 5.0 cm IVS Diastolic Thickness 1.2 cm 0.6 - 1.0 / 0.6 - 0.9 cm LVPW Diastolic Thickness 1.2 cm 0.6 - 1.0 / 0.6 - 0.9 cm LV Relative Wall Thickness 0.4 LVOT Diameter 2.0 cm LV Diastolic Volume MOD BP 107.1 cm??? 67 - 155 / 56 - 104 cm??? LV Systolic Volume MOD BP 75.4 cm??? 22 - 58 / 19 - 49 cm??? LV Ejection Fraction MOD BP 29.7 % >= 55 % LV Cardiac Index MOD BP 1318.3 cm???/min???m??? LV Diastolic Volume MOD 4C 104.4 cm??? LV Systolic Volume MOD 4C 85.3 cm??? LV Ejection Fraction MOD 4C 18.3 % LV Cardiac Index MOD 4C 792.5 cm???/min???m??? LV Diastolic Length 4C 8.5 cm LV Systolic Length 4C 8.3 cm LV Diastolic Volume MOD 2C 105.0 cm??? LV Systolic Volume MOD 2C 65.4 cm??? LV Ejection Fraction MOD 2C 37.7 % LV Cardiac Index MOD 2C 1641.7 cm???/min???m??? LV Diastolic Length 2C 8.1 cm LV Systolic Length 2C 8.0 cm Ascending Aorta Diameter 3.5 cm DOPPLER AV Peak Velocity 277.2 cm/s AV Peak Gradient 30.7 mmHg AV Mean Velocity 207.4 cm/s AV Mean Gradient 18.9 mmHg AV Velocity Time Integral 55.3 cm AI Peak Velocity 331.6 cm/s AI Peak Gradient 44.0 mmHg AI Pressure Half Time 514.4 ms LVOT Peak Velocity 96.4 cm/s LVOT Peak Gradient 3.7 mmHg LVOT Velocity Time Integral 22.7 cm LVOT Stroke Volume 68.0 cm??? LVOT Stroke Volume Index 33.7 ml/m??? LVOT Cardiac Index 2822.6 cm???/min???m??? AV Area Cont Eq vti 1.2 cm??? AV Area Cont Eq pk 1.0 cm??? Mitral E Point Velocity 129.4 cm/s MV Deceleration Time 177.4 ms LV E' Lateral Velocity 6.9 cm/s Mitral E to LV E' Lateral Ratio 18.6 LV E' Septal Velocity 5.2 cm/s Mitral E to LV E' Septal Ratio 25.1 TR Peak Velocity 309.7 cm/s TR Peak Gradient 38.4 mmHg Right Atrial Pressure 15.0 mmHg Pulmonary Artery Systolic Pressu 53.4 mmHg Right Ventricular Systolic Press 53.4 mmHg FINDINGS Left Ventricle Mildly increased septal wall thickness. Moderately increased left ventricular diastolic diameter. Moderately increased left ventricular systolic volume. Moderately reduced left ventricular systolic function. Left ventricular ejection fraction is estimated at 30-35%. Global hypokinesis more noted in the inferior and inferolateral wall. Right Ventricle Moderate right ventricular dilatation. Moderate pulmonary hypertension. Right Atrium Severe right atrial dilatation. Left Atrium Severe left atrial dilatation. patent foramen ovale noted with color flow. Mitral Valve Mitral valve thickened. Mild to moderate mitral regurgitation. Aortic Valve Calcified aortic valve cusps. Probable bicuspid aortic valve Mild to moderate aortic stenosis with a peak gradient of 30.74 mmHg and a mean gradient of 18.94 mmHg. moderate aortic regurgitation. Tricuspid Valve Structurally normal tricuspid valve. Moderate tricuspid regurgitation. Pulmonic Valve Pulmonic valve not well visualized. Pericardium No pericardial effusion. Aorta Normal size aortic root and proximal ascending aorta. CONCLUSIONS Technically difficult study. Severe impairment of the left ventricular systolic function with global hypokinesis more noted in the inferior and inferolateral wall Mild to moderate mitral was moderate tricuspid regurgitation and moderate pulmonary hypertension Heavily calcified aortic valve, probable bicuspid. Mild to moderate aortic stenosis with moderate aortic regurgitation Patent foramen ovale with [id number] shunting Previewed by: Dr. Arlet Foster MD (Electronically Signed) Final Date: 12 February 2023 12:45
--- NOTE | 2023-02-12 13:06 | P.PN ---
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 He presented to the emergency room early this morning after developing chest pain, weakness and palpitations and shortness of breath. He was found to be in atrial fibrillation with a rapid ventricular response. X-ray reveals evidence of increased interstitial opacity consistent basis for edema versus pneumonia. Focal subsegmental atelectasis in the left upper to mid lung. Mild cardiomegaly. White count 1.0. Hemoglobin 11.1. Platelets 47,000. Sodium 141. Potassium 4.1. Bicarb 21. BUN 37. Creatinine 1.60. Glucose 116. Troponins negative 2. ProBNP 6770. He is seen today in consultation on the selective care unit. He is currently sitting up in a chair at the bedside. Awake and alert in no acute distress. Continue O2 saturations in the upper 90s on 4 L/m per nasal cannula. He is afebrile. Somewhat hypertensive. Still tachycardic. He denies any shortness of breath at rest. He does have dyspnea on exertion. He's been initiated on Symbicort, DuoNeb inhalations, Solu-Medrol. Lasix 20 g IV every 12 hours. The patient is seen today 02/12/2023 in follow-up on the regular medical floor. He is up ambulating in his room. Continues to maintain O2 saturations in the 90s on room air. White count 3.2. Hemoglobin 12.1. Platelets 67,000. Sodium 138. Potassium 4.1. Bicarb 26. BUN 40. Creatinine 1.81. He is continued on IV diuretics. No accurate I&O. Continue on Symbicort, DuoNeb inhalations. Echocardiogram reveals impaired left ventricular systolic function with an ejection fraction 30-35%. Global hypokinesis. Heavily calcified aortic valve, probable bicuspid. Mild to moderate aortic stenosis with moderate aortic regurgitation. Patent foramen ovale with vjzz-[id number] shunting. Objective - Vital Signs Vital signs: Vital Signs Temp 97.6 F 02/12/23 11:48 Pulse 97 02/12/23 11:48 Resp 18 02/12/23 11:48 BP 153/90 02/12/23 11:48 Pulse Ox 97 02/12/23 08:47 FiO2 Intake & Output 02/11/23 02/12/23 02/12/23 18:59 06:59 18:59 Intake Total 360 350 Output Total 1150 Balance -790 350 Weight 83.915 kg 86.6 kg Intake: IV 10 0.9 10 Oral 350 350 Output: Urine 800 Other 350 Other: Voiding Method Toilet Toilet Urinal Urinal # Voids 1 - Exam GENERAL EXAM: Alert, pleasant 73-year-old male patient, on room air, up in his room, comfortable in no apparent distress. HEAD: Normocephalic. EYES: Normal reaction of pupils, equal size. NOSE: Clear with pink turbinates. THROAT: No erythema or exudates. NECK: No masses, no JVD. CHEST: No chest wall deformity. LUNGS: Equal air entry with crackles in the posterior bases, end expiratory wheeze, diminished. CVS: S1 and S2 normal with an audible murmur, irregular rhythm. ABDOMEN: No hepatosplenomegaly, normal bowel sounds, no guarding or rigidity. SPINE: No scoliosis or deformity SKIN: No rashes CENTRAL NERVOUS SYSTEM: No focal deficits, tone is normal in all 4 extremities. EXTREMITIES: There is no peripheral edema. No clubbing, no cyanosis. Peripheral pulses are intact. - Labs CBC & Chem 7: 02/12/23 11:16 02/12/23 11:16 Labs: Abnormal Lab Results - Last 24 Hours (Table) 02/12/23 02/12/23 Range/Units 11:16 11:16 WBC 3.2 L (3.8-10.6) k/uL RBC 4.19 L (4.30-5.90) m/uL Hgb 12.1 L (13.0-17.5) gm/dL Hct 37.0 L (39.0-53.0) % RDW 16.7 H (11.5-15.5) % Plt Count 67 L (150-450) k/uL Lymphocytes # 0.2 L (1.0-4.8) k/uL BUN 40 H (9-20) mg/dL Creatinine 1.81 H (0.66-1.25) mg/dL Glucose 113 H (74-99) mg/dL Assessment and Plan Assessment: Acute on chronic hypoxemic respiratory failure secondary to systolic congestive heart failure. Echocardiogram revealed severely impaired left ventricular systolic function with global hypokinesia in the inferior and inferolateral rios with an ejection fraction of 30-35%. Atrial fibrillation with rapid ventricular response, not on anticoagulants due to pancytopenia Moderate to severe aortic stenosis, suspected bicuspid valve Patent foramen ovale with [id number] shunting Moderate pulmonary hypertension Pancytopenia of unclear etiology Chronic obstructive pulmonary disease, oxygen dependent, steroid dependent Chronic tobacco dependence Hyperlipidemia Hypertension History of hepatocellular carcinoma status post ablation History of parotid gland cancer status post resection Plan: The patient was seen and evaluated Chest x-ray, labs, echocardiogram and medications reviewed Continue with IV diuretics Continue bronchodilators, steroids We will continue to follow I have personally seen and examined the patient, performed the documentation and the assessment and plan as written. Number of minutes spent on the visit: 10.
[2023-02-12 15:38] LABS: INR 1.1 (<1.2); Partial Thromboplastin Time 28.4 sec (22.0-30.0); Prothrombin Time 11.8 sec (10.0-12.5)
--- NOTE | 2023-02-12 15:38 | P.PN ---
Subjective Progress Note Date: 02/12/23 History of present illness: This is a 73-year-old male patient of Dr. Post with past medical history of hypertension, paroxysmal atrial fibrillation, moderate to severe aortic stenosis and regurgitation, chronic renal insufficiency, liver cancer status post ablation, parotid gland cancer status post resection and chemotherapy. We have been asked to see the patient regarding A. fib with RVR. Today his heart rate is controlled. He still has some lower extremity edema. Blood pressure 153/90, heart rate 90-100. He has been maintained on Echocardiogram is technically difficult study. Severe impairment of the left ventricle systolic function with global hypokinesis more noted in the inferior a nd inferior lateral wall. Mild to moderate mitral regurgitation and moderate tricuspid regurgitation, moderate pulmonary hypertension. Mild to moderate aortic stenosis with moderate aortic regurgitation. Patent foramen ovale with [id number] shunting. Physical examination: Gen: This is a 73-year-old male resting in chair and appears to be comfortable and in no acute distress VS: reviewed HEENT: Head is atraumatic, normocephalic. Pupils equal, round. Sclerae is anicteric. NECK: Supple. No JVD. . LUNGS: Few crackles. No intercostal retractions. HEART: Regular rate and rhythm. 4/6 systolic ejection murmur in the aortic area of. ABDOMEN: Soft No tenderness. EXTREMITIES: No pedal edema. No calf tenderness. NEUROLOGICAL: Patient is awake, alert and oriented x3. Assessment: Persistent atrial fibrillation with poorly controlled ventricular rate Acute on chronic systolic heart failure Severe aortic stenosis and regurgitation PFO Plan: Continue current cardiac medications Increase metoprolol to 50 mg 3 times daily Hold JORGE inhibitor until renal function improves, this may be done as an outpatient Patient will follow-up with Dr. Post regarding aortic valve stenosis and PFO and can be worked up as an outpatient Nurse practitioner note has been reviewed, I agree with documented findings and plan of care. Patient was seen and examined. Objective - Vital Signs Vital signs: Vital Signs Temp 97.6 F 02/12/23 11:48 Pulse 97 02/12/23 11:48 Resp 18 02/12/23 11:48 BP 153/90 02/12/23 11:48 Pulse Ox 97 02/12/23 08:47 FiO2 Intake & Output 02/11/23 02/12/23 02/12/23 18:59 06:59 18:59 Intake Total 360 350 Output Total 1150 Balance -790 350 Weight 83.915 kg 86.6 kg Intake: IV 10 0.9 10 Oral 350 350 Output: Urine 800 Other 350 Other: Voiding Method Toilet Toilet Urinal Urinal # Voids 1 - Labs CBC & Chem 7: 02/12/23 11:16 02/12/23 11:16 Labs: Abnormal Lab Results - Last 24 Hours (Table) 02/12/23 02/12/23 Range/Units 11:16 11:16 WBC 3.2 L (3.8-10.6) k/uL RBC 4.19 L (4.30-5.90) m/uL Hgb 12.1 L (13.0-17.5) gm/dL Hct 37.0 L (39.0-53.0) % RDW 16.7 H (11.5-15.5) % Plt Count 67 L (150-450) k/uL Lymphocytes # 0.2 L (1.0-4.8) k/uL BUN 40 H (9-20) mg/dL Creatinine 1.81 H (0.66-1.25) mg/dL Glucose 113 H (74-99) mg/dL
[2023-02-12] MEDS: IPRATROPIUM-ALBUTEROL 3 ML NEB INHALATION PRN (15:39)
[2023-02-12] MEDS: METOPROLOL TARTRATE 50 MG TAB PO SCH ×2 (16:37→21:52)
--- NOTE | 2023-02-12 17:12 | P.CONS ---
History of Present Illness - Reason for Consult Consult date: 02/12/23 Pancytopenia Requesting physician: Heraclio Tanner - Chief Complaint SOB - History of Present Illness Patient is a 73-year-old male with a significant history of COPD, atrial fibr illation, CHF, HCC, and Hep C. Consult was placed for pancytopenia. He follows with Dr. Guy for anemia and thrombocytopenia. He was referred in 2017 for thrombocytopenia noted on lab work prior to cardiac cath. The pt stated that hs platelets have been low for some years at least. Labs dating back to 07/21 showed plt ranging from the 70-120 range. He has a known h/o hepatitis C and cirrhosis, and finished antiviral treatment in 2015. MRI of the abdomen in 01/21 showed lobulated liver contour consistent with chronic liver damage and splenomegaly. He had additional labs which were negative other than positive RF, and ELECTRICIAN SUBSTATION, likely due to the Hep C. His B12 was low normal, but MMA was elevated, indicating functional deficiency. He was started on B12 monthly in 08/22. He has been following up in clinic since for anemia labs and outpatient IV iron and B12 injections. Last received IV iron June 2021 and vitamin B12 injection 01/2023. Anemia workup 11/2022 was normal. Patient presented to the emergency room for chest pain, palpitations and shortness of breath. He was found to be in atrial fibrillation with a rapid ventricular response. Chest x-ray revealed of increased interstitial opacity consistent for developing pulmonary edema versus pneumonia. Focal subsegmental atelectasis in the left upper to mid lung and mild cardiomegaly. CBC revealed WBC 1.0. Hemoglobin 11.1. Platelets 47,000. Creatinine 1.60. Troponins negative 2. ProBNP 6770. At today's visit patient was receiving echocardiogram. Patient is reporting improvement in breathing today. Patient continues on steroids, inhalers and lasix, pulmonology and cardiology following. Denies any episodes of acute bleeding or petechiae Review of Systems 10 point ROS is negative except as stated in the HPI 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 History of Any Multi-Drug Resistant Organisms: None Reported Past Surgical History: Back Surgery, Heart Catheterization, Hernia Repair, Orthopedic Surgery Additional Past Surgical History / Comment(s): liver ablation done at [facility] for tx of hepatocellular carcinoma,hemorrhoids ,back surgery, cataract, skin cancer, inguinal hernia, abdominal hernia, left shoulder, right wrist, growth removed vocal cord, PAROTID GLAD REMOVED DUE TO CANCER Past Anesthesia/Blood Transfusion Reactions: No Reported Reaction Additional Past Anesthesia/Blood Transfusion Reaction / Comm: no hx blood transfusion Past Psychological History: No Psychological Hx Reported Smoking Status: Current some day smoker Past Alcohol Use History: None Reported Past Drug Use History: None Reported - Past Family History Father Family Medical History: Cancer Medications and Allergies Home Medications Medication Instructions Recorded Confirmed Type Losartan Potassium [Cozaar] 100 mg PO DAILY 08/06/14 02/11/23 History amLODIPine [Norvasc] 10 mg PO DAILY 08/06/14 02/11/23 History Colchicine 0.6 mg PO DAILY 08/02/16 02/11/23 History Hydrocodone/Acetaminophen [Aristes 1 tab PO QID PRN 08/31/18 02/11/23 History 10-325] Ferrous Sulfate [Iron (65 MG 487.5 mg PO DAILY 12/29/18 02/11/23 History Elemental)] Albuterol Inhaler [Ventolin Hfa 2 puff INHALATION RT-QID PRN 07/29/19 02/11/23 History Inhaler] Omeprazole 20 mg PO BID 05/16/20 02/11/23 History Fluticasone Propion/Salmeterol 1 puff INHALATION RT-BID 06/08/22 02/11/23 History [Wixela 250-50 Inhub] Metoprolol Tartrate 12.5 - 25 mg PO DAILY 06/08/22 02/11/23 History hydrALAZINE HCL [Apresoline] 100 mg PO TID 06/08/22 02/11/23 History Folic Acid 1 mg PO DAILY 01/14/23 02/11/23 History Tiotropium 2.5 Mcg/Puff [Spiriva 1 puff INHALATION RT-BID 01/14/23 02/11/23 History Respimat 2.5 Mcg] predniSONE 5 mg PO DAILY 01/14/23 02/11/23 History traZODone HCL [Desyrel] 50 mg PO HS 01/14/23 02/11/23 History Cholecalciferol [Vitamin D3 (25 25 mcg PO DAILY 02/11/23 02/11/23 History Mcg = 1000 Iu)] Multivit-Min/FA/Lycopen/Lutein 1 tab PO DAILY 02/11/23 02/11/23 History [Centrum Silver Tablet] Xylitol [Xylimelts] 500 mg MM HS 02/11/23 02/11/23 History Allergies Allergy/AdvReac Type Severity Reaction Status Date / Time No Known Allergies Allergy Verified 02/11/23 07:03 Physical Exam Vitals: Vital Signs Temp Pulse Pulse Pulse Resp BP Pulse Ox 02/12/23 15:57 104 H 02/12/23 15:39 96 02/12/23 14:00 97 82 18 02/12/23 11:48 97.6 F 97 18 153/90 02/12/23 09:28 101 H 18 02/12/23 08:47 97 02/12/23 08:00 97.7 F 101 H 18 158/63 95 02/12/23 03:32 97.5 F L 82 16 147/99 94 L 02/11/23 23:16 97.5 F L 118 H 16 160/90 95 02/11/23 20:33 104 H 02/11/23 20:23 100 02/11/23 20:00 97.9 F 118 H 17 171/92 97 Intake and Output 02/12/23 02/12/23 02/12/23 06:59 14:59 22:59 Intake Total 660 Output Total 800 725 725 Balance -800 65 725 Intake: Oral 660 Output: Urine 800 725 725 Other: Voiding Method Toilet Toilet Urinal Urinal Weight 86.6 kg - Constitutional General appearance: average body habitus, no acute distress - EENT Eyes: anicteric sclerae, EOMI ENT: hearing grossly normal - Respiratory Respiratory: bilateral: diminished - Cardiovascular Rhythm: regular Heart sounds: normal: S1, S2 - Gastrointestinal General gastrointestinal: soft, no tenderness - Integumentary Integumentary: no cyanotic - Neurologic Neurologic: CNII-XII intact - Musculoskeletal Musculoskeletal: generalized weakness - Psychiatric Psychiatric: A&O x's 3, appropriate affect, intact judgment & insight Results CBC & Chem 7: 02/12/23 11:16 02/12/23 11:16 Labs: Abnormal Lab Results - Last 24 Hours (Table) 02/12/23 02/12/23 Range/Units 11:16 11:16 WBC 3.2 L (3.8-10.6) k/uL RBC 4.19 L (4.30-5.90) m/uL Hgb 12.1 L (13.0-17.5) gm/dL Hct 37.0 L (39.0-53.0) % RDW 16.7 H (11.5-15.5) % Plt Count 67 L (150-450) k/uL Lymphocytes # 0.2 L (1.0-4.8) k/uL BUN 40 H (9-20) mg/dL Creatinine 1.81 H (0.66-1.25) mg/dL Glucose 113 H (74-99) mg/dL Chest x-ray: report reviewed Assessment and Plan (1) Atrial fibrillation with RVR Current Visit: Yes Status: Acute Priority: High Code(s): I48.91 - UNSPECIFIED ATRIAL FIBRILLATION SNOMED Code(s): 929836655669445 (2) Congestive heart failure Current Visit: Yes Status: Acute Priority: High Code(s): I50.9 - HEART FAILURE, UNSPECIFIED SNOMED Code(s): 86458430 (3) Pancytopenia Current Visit: Yes Status: Acute Priority: Medium Code(s): D61.818 - OTHER PANCYTOPENIA SNOMED Code(s): 173341168 Plan: Pancytopenia: -CBC upon admission revealed WBC 1.0. Hemoglobin 11.1. Platelets 47,000. Upon trending labs leukopenia has been noted during acute visits since 2017 as well as thrombocytopenia noted since 2017. Platelets and hemoglobin are stable and have not significantly differed from baseline. WBC 1.0 however today improved to 3.2. Hemoglobin and platelets also improved at 12.1 and 67,000 respectively. -Will obtain anemia and DIC workup. Will also rule out HIV and check have acute hepatitis panel and quantitative hep C. -Cytopenias likely reactive related to acute inflammation and known history of hepatitis C and cirrhosis. Would expect counts to improve to baseline as patient acutely recovers -Please transfuse for hemoglobin less than 7 or if symptomatic and transfuse for platelets less than 10,000 or if symptomatic. Would recommend holding anticoagulation if platelets less than 50,000 -Will continue to monitor attests: I have seen and examined patient, performed H&P, developed imp ression and plan of care. Discussed with dictator. Agree with documentation, dictated as a scribe.
[2023-02-12] MEDS: SYMBICORT 160-4.5 MCG INHALER INHALATION SCH (21:38)
[2023-02-12 21:58] LABS: % Iron Saturation 46.42 (15.00-50.00)
[2023-02-12] MEDS: traZODone HCL 50 MG TAB PO SCH (23:01)
--- NOTE | 2023-02-12 23:26 | P.PN ---
Subjective Progress Note Date: 02/12/23 History of present illness; patient is a 73-year-old gentleman with past medical history significant for chronic liver disease, alcohol-induced cirrhosis, thrombocytopenia, iron deficiency anemia from bleeding esophageal varices history of hep C, COPD previous history of atrial fibrillation, hyperlipidemia, hepatocellular carcinoma, aortic stenosis, chronic kidney disease stage IIIa who presented to the hospital because of worsening shortness of breath and weakness. Patient has been complaining of increasing shortness of breath on exertion for the last few days. Also complaining of palpitations. Denies any chest pain. Denies any fever or chills. Patient is complaining of cough is productive. Because of these symptoms, patient presented to the ER Initial lab work done in the ER showed WBC 1, hemoglobin 11.9, platelet count 51, sodium 141, potassium 4.1, BUN 37, creatinine 1.60, magnesium 1.9, bilirubin 0.7, AST 30, ALT 25, troponin 0.034 proBNP 6770 EKG done in the ER heart rate 112, QRS 119, irregular, no periods, no ST segment elevation seen, no T-wave inversion, frequent PVCs Chest x-ray done in the ER finding suspicious or developing pulmonary edema versus pneumonia, focal subsegmental atelectasis in the left upper to Midlung Patient admitted to medicine service 02/12/2023 Patient is evaluated today sitting up in the chair. No chest pain or palpitations noted. He remains in atrial fibrillation with now controlled rate. Lopressor has been increased to TID. He had echocardiogram today showing severe impairment of the left ventricle with global hypokinesis, EF 30-35%. Mild to mod MR and moderate TR moderate pulmonary hypertension. Mild to moderate aortic stenosis with mod aortic regurgitation. Patent foramen ovale with left to right shunting. Review of Systems Constitutional: Denied any fatigue denied any fever. Cardio vascular: denied any chest pain, palpitations Gastrointestinal: denied any nausea, vomiting, diarrhea Pulmonary: Denied any shortness of breath cough Neurologic denied any new focal deficits All inpatient medications were reviewed and appropriate changes in these medications as dictated in the interval history and assessment and plan. PHYSICAL EXAMINATION: GENERAL: The patient is alert and oriented x3, not in any acute distress. Well developed, well nourished. HEENT: Pupils are round and equally reacting to light. EOMI. No scleral icterus. No conjunctival pallor. Normocephalic, atraumatic. No pharyngeal erythema. No thyromegaly. CARDIOVASCULAR: S1 and S2 present.Irregularly irregular, systolic murmur. PULMONARY: Chest is clear to auscultation, no wheezing or crackles. ABDOMEN: Soft, nontender, nondistended, normoactive bowel sounds. No palpable organomegaly. MUSCULOSKELETAL: No joint swelling or deformity. EXTREMITIES: No cyanosis, clubbing, or pedal edema. NEUROLOGICAL: Gross neurological examination did not reveal any focal deficits. SKIN: No rashes. Assessment Persistent atrial fibrillation with RVR at times Acute renal failure Acute on chronic systolic and diastolic heart failure Acute hypoxic respiratory failure due to Acute CHF improved now on room air Hx of COPD with mild acute exacerbation treated with IV steroids Moderate severe Aortic stenosis and aortic regurgitation PFO Pancytopenia follows outpt with Dr Guy for Hx of thrombocytopenia Chronic kidney disease stage III Hx of hepatitis C Hypertension Hx liver cancer and parotid gland cancer Chronic ongoing nicotine use GI prophylaxis DVT prophylaxis Full Code Plan Per cardiology recommending to continue on metoprolol TID and follow up with Dr Post regarding the PFO and aortic valve stenosis. Patient will require further work up for this. Hematology ruling out DIC and pt will be worked up for the anemia. Pulmonary following patient is taken off IV steroids has been weaned to room air Repeat labs in AM The impression and plan of care has been dictated by Taylor Mitchell, Nurse Practitioner as directed. Dr. Ranulfo MD I have performed a history and physical examination and medical decision making of this patient, discussed the same with the dictator, and agree with the dictators assessment and plan as written, documented as a scribe. Based on total visit time, I have performed more than 50% of this visit. Objective - Vital Signs Vital signs: Vital Signs Temp 97.6 F 02/12/23 11:48 Pulse 82 02/12/23 14:00 Resp 18 02/12/23 14:00 BP 153/90 02/12/23 11:48 Pulse Ox 97 02/12/23 08:47 FiO2 Intake & Output 02/11/23 02/12/23 02/12/23 18:59 06:59 18:59 Intake Total 360 660 Output Total 1150 725 Balance -790 -65 Weight 83.915 kg 86.6 kg Intake: IV 10 0.9 10 Oral 350 660 Output: Urine 800 725 Other 350 Other: Voiding Method Toilet Toilet Urinal Urinal # Voids 1 - Labs CBC & Chem 7: 02/12/23 11:16 02/12/23 11:16 Labs: Abnormal Lab Results - Last 24 Hours (Table) 02/12/23 02/12/23 Range/Units 11:16 11:16 WBC 3.2 L (3.8-10.6) k/uL RBC 4.19 L (4.30-5.90) m/uL Hgb 12.1 L (13.0-17.5) gm/dL Hct 37.0 L (39.0-53.0) % RDW 16.7 H (11.5-15.5) % Plt Count 67 L (150-450) k/uL Lymphocytes # 0.2 L (1.0-4.8) k/uL BUN 40 H (9-20) mg/dL Creatinine 1.81 H (0.66-1.25) mg/dL Glucose 113 H (74-99) mg/dL Assessment and Plan Time with Patient: Less than 30
[2023-02-13 01:13] LABS: Hepatitis C IgG Antibody Reactive (Non-Reactive)
[2023-02-13 01:17] LABS: Hepatitis A Antibody IgM Nonreactive; Hepatitis B Core IgM Nonreactive; Hepatitis B Surface Antigen Nonreactive
[2023-02-13 03:03] LABS: HIV 2 AB Non-Reactive (Non-Reactive); HIV AB P24 Non-Reactive (Non-Reactive); HIV P24 AG Non-Reactive (Non-Reactive)
[2023-02-13] MEDS: HYDROcodone/APAP 10-325MG 1 EACH TAB PO PRN ×2 (05:56→12:22)
[2023-02-13] MEDS: PANTOPRAZOLE 40 MG TABLET PO SCH (05:57)
[2023-02-13] MEDS: SYMBICORT 160-4.5 MCG INHALER INHALATION SCH (08:13)
[2023-02-13] MEDS: FUROSEMIDE 10 MG/ML 2 ML VIAL IV SCH (08:45)
[2023-02-13] MEDS: METOPROLOL TARTRATE 50 MG TAB PO SCH (08:55)
[2023-02-13] MEDS: FERROUS SULFATE 325 MG TAB PO SCH (08:55)
[2023-02-13] MEDS: FOLIC ACID 1 MG TAB PO SCH (08:56)
[2023-02-13] MEDS: COLCHICINE 0.6 MG EACH PO SCH (08:56)
[2023-02-13] MEDS: amLODIPine 10 MG TAB PO SCH (08:56)
[2023-02-13] MEDS ORDERED: hydrALAZINE HCL 50 MG TAB PO SCH (10:00)
[2023-02-13] MEDS ORDERED: LOSARTAN 50 MG TAB PO SCH (10:00)
[2023-02-13 11:55] VITALS: BP 148/108; PULSE 96; RESP 16; TEMP 97.2
[2023-02-13 12:05] LABS: Anisocytosis Slight; Basophils % (A) 0 %; Eosinophils % (A) 2 %; HCT 36.2 % (39.0-53.0); HGB 11.8 gm/dL (13.0-17.5); Lymphocytes # (A) 0.3 k/uL (1.0-4.8); Lymphocytes % (A) 13 %; MCH 28.9 pg (25.0-35.0); MCHC 32.6 g/dL (31.0-37.0); MCV 88.6 fL (80.0-100.0); Mean Platelet Volume 9.8; Monocytes # (A) 0.2 k/uL (0-1.0); Monocytes % (A) 10 %; Neutrophils # (A) 1.7 k/uL (1.3-7.7); Neutrophils % (A) 74 %; RBC 4.09 m/uL (4.30-5.90); RDW 16.5 % (11.5-15.5); WBC 2.3 k/uL (3.8-10.6)
[2023-02-13 12:16] LABS: Platelet Count 62 k/uL (150-450)
[2023-02-13 12:26] LABS: African American GFR (CKD) 39 (>60 ml/min/1.73 sqM); Anion Gap 12 mmol/L; Blood Urea Nitrogen 52 mg/dL (9-20); Calcium 8.8 mg/dL (8.4-10.2); Carbon Dioxide 27 mmol/L (22-30); Chloride 101 mmol/L (98-107); Glucose 74 mg/dL (74-99); Non-African American GFR(CKD) 33 (>60 ml/min/1.73 sqM); Potassium 3.7 mmol/L (3.5-5.1); Sodium 140 mmol/L (137-145)
--- NOTE | 2023-02-13 13:16 | P.PN ---
Subjective Progress Note Date: 02/13/23 Principal diagnosis: Shortness of breath. 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 He presented to the emergency room early this morning after developing chest pain, weakness and palpitations and shortness of breath. He was found to be in atrial fibrillation with a rapid ventricular response. X-ray reveals evidence of increased interstitial opacity consistent basis for edema versus pneumonia. Focal subsegmental atelectasis in the left upper to mid lung. Mild cardiomegaly. White count 1.0. Hemoglobin 11.1. Platelets 47,000. Sodium 141. Potassium 4.1. Bicarb 21. BUN 37. Creatinine 1.60. Glucose 116. Troponins negative 2. ProBNP 6770. He is seen today in consultation on the selective care unit. He is currently sitting up in a chair at the bedside. Awake and alert in no acute distress. Continue O2 saturations in the upper 90s on 4 L/m per nasal cannula. He is afebrile. Somewhat hypertensive. Still tachycardic. He denies any shortness of breath at rest. He does have dyspnea on exertion. He's been initiated on Symbicort, DuoNeb inhalations, Solu-Medrol. Lasix 20 g IV every 12 hours. The patient is seen today 02/12/2023 in follow-up on the regular medical floor. He is up ambulating in his room. Continues to maintain O2 saturations in the 90s on room air. White count 3.2. Hemoglobin 12.1. Platelets 67,000. Sodium 138. Potassium 4.1. Bicarb 26. BUN 40. Creatinine 1.81. He is continued on IV diuretics. No accurate I&O. Continue on Symbicort, DuoNeb inhalations. Echocardiogram reveals impaired left ventricular systolic function with an ejection fraction 30-35%. Global hypokinesis. Heavily calcified aortic valve, probable bicuspid. Mild to moderate aortic stenosis with moderate aortic regurgitation. Patent foramen ovale with [id number] shunting. Progress note dated 02/13/2023. 73-year-old male seen today in room 383. The patient was admitted with a diagnosis of shortness of breath, likely a combination of atrial fibrillation, and COPD. Currently, the patient is on 2 L of oxygen. He's not receiving any IV fluids. Saturations are documented at 95-97%, both on room air, and on 2 L. White count is 2.3, hemoglobin 11.8, hematocrit 36.2, platelet count 62,000. Sodium 140, potassium 3.7, chlorides 101, CO2 27, anion gap 12, BUN 52, and creatinine 1.96. His hepatitis C IgG antibody was positive. He does have a known history of hepatitis C. Objective - Vital Signs Vital signs: Vital Signs Temp 97.2 F L 02/13/23 11:41 Pulse 96 02/13/23 11:41 Resp 16 02/13/23 11:41 BP 148/108 02/13/23 11:41 Pulse Ox 97 02/13/23 11:41 FiO2 Intake & Output 02/12/23 02/13/23 02/13/23 18:59 06:59 18:59 Intake Total 860 10 440 Output Total 1450 1999 Balance -590 -1989 440 Weight 87.3 kg Intake: IV 10 0.9 10 Oral 860 440 Output: Urine 1450 1999 Other: Voiding Method Toilet Toilet Toilet Urinal Urinal Urinal - Exam No acute distress, oriented 3. Currently on 2 L by nasal cannula. HEENT examination is grossly unremarkable. Mucous membranes are moist. No oral lesions. Neck supple. Full range of motion. No adenopathy thyromegaly or neck vein distention. Cardiovascular examination reveals an irregular rhythm and rate. S1-S2 normal. No S3 or S4. No discernible murmur noted. Heart rate 95 bpm. Lungs reveal scattered basilar crackles. A few scattered rhonchi. No wheezes. Breath sounds are equal bilaterally. Saturations are adequate. Abdomen soft bowel sounds are heard. No masses or tenderness. Extremities are intact. No cyanosis clubbing or edema. Skin is without rash or lesion. Neurologic examination is brief but nonfocal. - Labs CBC & Chem 7: 02/13/23 10:47 02/13/23 10:47 Labs: Abnormal Lab Results - Last 24 Hours (Table) 02/12/23 02/12/23 02/13/23 Range/Units 11:16 14:08 10:47 WBC (3.8-10.6) k/uL RBC (4.30-5.90) m/uL Hgb (13.0-17.5) gm/dL Hct (39.0-53.0) % RDW (11.5-15.5) % Plt Count (150-450) k/uL Lymphocytes # (1.0-4.8) k/uL BUN 52 H (9-20) mg/dL Creatinine 1.96 H (0.66-1.25) mg/dL Folate 40.00 H (4.40-31.00) ng/mL Hep C IgG Ab Reactive A (Non-Reactive) 02/13/23 Range/Units 10:47 WBC 2.3 L (3.8-10.6) k/uL RBC 4.09 L (4.30-5.90) m/uL Hgb 11.8 L (13.0-17.5) gm/dL Hct 36.2 L (39.0-53.0) % RDW 16.5 H (11.5-15.5) % Plt Count 62 L (150-450) k/uL Lymphocytes # 0.3 L (1.0-4.8) k/uL BUN (9-20) mg/dL Creatinine (0.66-1.25) mg/dL Folate (4.40-31.00) ng/mL Hep C IgG Ab (Non-Reactive) Assessment and Plan Assessment: Acute on chronic hypoxemic respiratory failure secondary to systolic congestive heart failure. Atrial fibrillation with rapid ventricular response. Moderate to severe aortic stenosis, suspected bicuspid valve. Patent foramen ovale with [id number] shunting. Moderate pulmonary hypertension. Pancytopenia of unclear etiology. Chronic obstructive pulmonary disease, oxygen dependent, steroid dependent. Chronic tobacco dependence. Hyperlipidemia. Hypertension. History of hepatocellular carcinoma, status post ablation. History of parotid gland cancer status post resection. Plan: Plan dated 02/13/2023. The patient appears to be doing better. Currently, his room air saturations are in the mid to high 90s. Labs, x-rays, and medications are all reviewed. The patient continues on diuretics. He also continues on bronchodilators and steroids. We will continue to follow the patient, and make recommendations along the way. The patient's overall prognosis remains guarded. Time with Patient: Less than 30
--- NOTE | 2023-02-13 14:05 | P.PN ---
Subjective Progress Note Date: 02/13/23 History of present illness: This is a 73-year-old male patient of Dr. Post with past medical history of hypertension, paroxysmal atrial fibrillation, moderate to severe aortic stenosis and regurgitation, chronic renal insufficiency, liver cancer status post ablation, parotid gland cancer status post resection and chemotherapy. We have been asked to see the patient regarding A. fib with RVR. Today his heart rate is controlled. He still has some lower extremity edema. Blood pressure 153/90, heart rate 90-100. He has been maintained on Echocardiogram is technically difficult study. Severe impairment of the left ventricle systolic function with global hypokinesis more noted in the inferior a nd inferior lateral wall. Mild to moderate mitral regurgitation and moderate tricuspid regurgitation, moderate pulmonary hypertension. Mild to moderate aortic stenosis with moderate aortic regurgitation. Patent foramen ovale with [id number] shunting. 02/13 Reviewed results of echocardiogram with the patient. He states he does have some shortness of breath with activity, no palpitations and no chest pain. Blood pressure elevated this morning and 148/108 after medications. Heart rate is running in the 90s. Pulse ox 97% on room air. Patient states he has been urinating well. He has 2580 ML's negative fluid balance. Repeat blood work reveals hemoglobin of 11.8, potassium 3.7, BUN 52 creatinine 1.96. Physical examination: Gen: This is a 73-year-old male resting in chair and appears to be comfortable and in no acute distress VS: reviewed HEENT: Head is atraumatic, normocephalic. Pupils equal, round. Sclerae is anicteric. LUNGS: Few crackles. No intercostal retractions. HEART: Regular rate and rhythm. 4/6 systolic ejection murmur in the aortic area. ABDOMEN: Soft No tenderness. EXTREMITIES: No pedal edema. No calf tenderness. NEUROLOGICAL: Patient is awake, alert and oriented x3. Assessment: Persistent atrial fibrillation with poorly controlled ventricular rate Acute on chronic systolic heart failure Severe aortic stenosis and regurgitation PFO Plan: Continue current cardiac medications Continue metoprolol 50 mg 3 times daily Hold JORGE inhibitor until renal function improves, this may be done as an outpatient Patient will follow-up with Dr. Post regarding aortic valve stenosis and PFO and can be worked up as an outpatient Nurse practitioner note has been reviewed, I agree with documented findings and plan of care. Patient was seen and examined. Objective - Vital Signs Vital signs: Vital Signs Temp 98.4 F 02/13/23 08:00 Pulse 98 02/13/23 08:33 Resp 14 02/13/23 08:32 BP 166/101 02/13/23 08:00 Pulse Ox 95 02/13/23 08:19 FiO2 Intake & Output 02/12/23 02/13/23 02/13/23 18:59 06:59 18:59 Intake Total 860 10 440 Output Total 1450 1999 Balance -590 440 Weight 87.3 kg Intake: IV 10 0.9 10 Oral 860 440 Output: Urine 1450 1999 Other: Voiding Method Toilet Toilet Urinal Urinal - Labs CBC & Chem 7: 02/13/23 10:47 02/13/23 10:47 Labs: Abnormal Lab Results - Last 24 Hours (Table) 02/12/23 02/12/23 02/12/23 Range/Units 11:16 11:16 11:16 WBC 3.2 L (3.8-10.6) k/uL RBC 4.19 L (4.30-5.90) m/uL Hgb 12.1 L (13.0-17.5) gm/dL Hct 37.0 L (39.0-53.0) % RDW 16.7 H (11.5-15.5) % Plt Count 67 L (150-450) k/uL Lymphocytes # 0.2 L (1.0-4.8) k/uL BUN 40 H (9-20) mg/dL Creatinine 1.81 H (0.66-1.25) mg/dL Glucose 113 H (74-99) mg/dL Folate 40.00 H (4.40-31.00) ng/mL Hep C IgG Ab (Non-Reactive) 02/12/23 Range/Units 14:08 WBC (3.8-10.6) k/uL RBC (4.30-5.90) m/uL Hgb (13.0-17.5) gm/dL Hct (39.0-53.0) % RDW (11.5-15.5) % Plt Count (150-450) k/uL Lymphocytes # (1.0-4.8) k/uL BUN (9-20) mg/dL Creatinine (0.66-1.25) mg/dL Glucose (74-99) mg/dL Folate (4.40-31.00) ng/mL Hep C IgG Ab Reactive A (Non-Reactive)
--- NOTE | 2023-02-14 15:50 | P.DS ---
Providers Date of admission: 02/11/23 06:37 Attending physician: Hillary Franks Consults: 02/11/23 06:37 Consult Physician Routine Consulting Provider: Arlet Foster Consult Reason/Comments: afibRVR Do you want consulting provider notified?: Yes 02/11/23 09:47 Consult Physician Routine Consulting Provider: Flores Humphries Consult Reason/Comments: Acute on chronic respiratory failure, COPD exacerbation Do you want consulting provider notified?: Yes 02/11/23 10:18 Consult Physician Routine Consulting Provider: Nelson Abbott Consult Reason/Comments: PANCYTOPENIA Do you want consulting provider notified?: Yes Primary care physician: [facility] Course: Final Diagnosis Persistent atrial fibrillation with RVR at times, improved now rate Acute renal failure Acute on chronic systolic and diastolic heart failure Acute hypoxic respiratory failure due to Acute CHF improved now on room air Hx of COPD with mild acute exacerbation treated with IV steroids Moderate severe Aortic stenosis and aortic regurgitation PFO Pancytopenia follows outpt with Dr Guy for Hx of thrombocytopenia Chronic kidney disease stage III Hx of hepatitis C Hypertension Hx liver cancer and parotid gland cancer Chronic ongoing nicotine use GI prophylaxis DVT prophylaxis Full Code Discharge Disposition Patient is stable for discharge home. He is high risk for readmission due to the aortic stenosis and continued shortness of breath. Need further work up for the aortic stenosis and PFO which will be outpatient per cardiology. Recommend to hold lasix and losartan until follow up with Dr. Post he states he has an appt made for this upcoming Saturday for cardiology follow up. He also needs to see hematology outpatient for the pancytopenia. He will repeat CBC and BMP outpatient. Follow up with your PCP. Hospital Course Patient is a 73-year-old gentleman with past medical history significant for chronic liver disease, alcohol-induced cirrhosis, thrombocytopenia, iron deficiency anemia from bleeding esophageal varices history of hep C, COPD previous history of atrial fibrillation, hyperlipidemia, hepatocellular carcinoma, aortic stenosis, chronic kidney disease stage IIIa who presented to the hospital because of worsening shortness of breath and weakness. Patient has been complaining of increasing shortness of breath on exertion for the last few days. Also complaining of palpitations. Denies any chest pain. Denies any fever or chills. Patient is complaining of cough is productive. Because of these symptoms, patient presented to the ER Initial lab work done in the ER showed WBC 1, hemoglobin 11.9, platelet count 51, sodium 141, potassium 4.1, BUN 37, creatinine 1.60, magnesium 1.9, bilirubin 0.7, AST 30, ALT 25, troponin 0.034 proBNP 6770 EKG done in the ER heart rate 112, QRS 119, irregular, no periods, no ST segment elevation seen, no T-wave inversion, frequent PVCs. Chest x-ray done in the ER finding suspicious or developing pulmonary edema versus pneumonia, focal subse gmental atelectasis in the left upper to Midlung. Patient admitted to medicine service with consult to cardiology. Atrial fibrillation was treated medically and heart rate did improved with increased frequency of metoprolol. He was treated with IV lasix also. Echocardiogram is technically difficult study. Severe impairment of the left ventricle systolic function with global hypokinesis more noted in the inferior and inferior lateral wall. Mild to moderate mitral regurgitation and moderate tricuspid regurgitation, moderate pulmonary hypertension. Mild to moderate aortic stenosis with moderate aortic regurgitation. Patent foramen ovale with [id number] shunting. Cardiology recommending to Hold JORGE inhibitor until renal function improves, this may be done as an outpatient. Patient will follow-up with Dr. Post regarding aortic valve stenosis and PFO and can be worked up as an outpatient. He was also evaluated by engineering administrator and received IV solumedrol for mild COPD exacerbation. His lungs are now clear. He does have some shortness of breath worsening with activity and this attributed to the arotic stenosis. He will be discharged home with close outpatient follow up . In regards to the pancytopenia, patient was worked up for DIC fibrinogen, PT/INR and PTT are all within normal limits. Pt is high risk for anticoagulation due to the thrombocytopenia. His iron studies are normal. His platelet count is 62, hemoglobin 11.8, white count 2.3. He will continue to see hematology on an outpatient basis on discharge. Please see medication reconciliation for a list of current medication. Thank you for allowing us to participate in the care of this patient. The impression and plan of care has been dictated by Taylor Mitchell, Nurse Practitioner as directed. Dr. Ranulfo MD I have performed a history and physical examination and medical decision making of this patient, discussed the same with the dictator, and agree with the dictators assessment and plan as written, documented as a scribe. Based on total visit time, I have performed more than 50% of this visit. Patient Condition at Discharge: Fair Plan - Discharge Summary Discharge Rx Participant: No New Discharge Prescriptions: New Budesonide-Formot 160-4.5 Mcg [Symbicort 160-4.5 Mcg Inhaler] 2 puff INHALATION RT-BID #1 each Metoprolol Tartrate [Lopressor] 50 mg PO TID #90 tab Continue amLODIPine [Norvasc] 10 mg PO DAILY Colchicine 0.6 mg PO DAILY Hydrocodone/Acetaminophen [[place] 10-325] 1 tab PO QID PRN PRN Reason: Pain Ferrous Sulfate [Iron (65 MG Elemental)] 487.5 mg PO DAILY Albuterol Inhaler [Ventolin Hfa Inhaler] 2 puff INHALATION RT-QID PRN PRN Reason: Shortness Of Breath Omeprazole 20 mg PO BID Folic Acid 1 mg PO DAILY traZODone HCL [Desyrel] 50 mg PO HS Cholecalciferol [Vitamin D3 (25 Mcg = 1000 Iu)] 25 mcg PO DAILY Xylitol [Xylimelts] 500 mg MM HS hydrALAZINE HCL [Apresoline] 100 mg PO TID Fluticasone Propion/Salmeterol [[place] 250-50 Inhub] 1 puff INHALATION RT-BID predniSONE 5 mg PO DAILY Tiotropium 2.5 Mcg/Puff [Spiriva Respimat 2.5 Mcg] 1 puff INHALATION RT-BID Multivit-Min/FA/Lycopen/Lutein [Centrum Silver Tablet] 1 tab PO DAILY Discontinued Losartan Potassium [Cozaar] 100 mg PO DAILY Metoprolol Tartrate 12.5 - 25 mg PO DAILY Discharge Medication List amLODIPine [Norvasc] 10 mg PO DAILY 08/06/14 [History] Colchicine 0.6 mg PO DAILY 08/02/16 [History] Hydrocodone/Acetaminophen [[place] 10-325] 1 tab PO QID PRN 08/31/18 [History] Ferrous Sulfate [Iron (65 MG Elemental)] 487.5 mg PO DAILY 12/29/18 [History] Albuterol Inhaler [Ventolin Hfa Inhaler] 2 puff INHALATION RT-QID PRN 07/29/19 [History] Omeprazole 20 mg PO BID 05/16/20 [History] Fluticasone Propion/Salmeterol [[place] 250-50 Inhub] 1 puff INHALATION RT-BID 06/08/22 [History] hydrALAZINE HCL [Apresoline] 100 mg PO TID 06/08/22 [History] Folic Acid 1 mg PO DAILY 01/14/23 [History] Tiotropium 2.5 Mcg/Puff [Spiriva Respimat 2.5 Mcg] 1 puff INHALATION RT-BID 01/14/23 [History] predniSONE 5 mg PO DAILY 01/14/23 [History] traZODone HCL [Desyrel] 50 mg PO HS 01/14/23 [History] Cholecalciferol [Vitamin D3 (25 Mcg = 1000 Iu)] 25 mcg PO DAILY 02/11/23 [History] Multivit-Min/FA/Lycopen/Lutein [Centrum Silver Tablet] 1 tab PO DAILY 02/11/23 [History] Xylitol [Xylimelts] 500 mg MM HS 02/11/23 [History] Budesonide-Formot 160-4.5 Mcg [Symbicort 160-4.5 Mcg Inhaler] 2 puff INHALATION RT-BID #1 each 02/13/23 [Rx] Metoprolol Tartrate [Lopressor] 50 mg PO TID #90 tab 02/13/23 [Rx] Follow up Appointment(s)/Referral(s): Nelson Abbott MD [STAFF PHYSICIAN] - 1 Week Elliott Post DO [STAFF PHYSICIAN] - 1 Week Drew Medrano MD [Primary Care Provider] - 1 Week None,Stated [REFERRING] - 1-2 days Ambulatory/Diagnostic Orders: Basic Metabolic Panel [LAB.AMB] Time Frame: 3 Days, Location: None Selected Complete Blood Count w/diff [LAB.AMB] Time Frame: 5 Days, Location: None Selected Activity/Diet/Wound Care/Special Instructions: Recommend to hold lasix and losartan until follow up with Dr. Post appointment is scheduled for Saturday per patient please confirm with the office and add to the discharge. Follow up with hematology and repeat labs outpatient Follow up with your PCP. Need further work up for the aortic stenosis and PFO Discharge Disposition: HOME SELF-CARE
[2023-02-15 06:55] LABS: Methylmalonic Acid 0.25 umol/L (<0.40)
== END 2023-02-13 14:16 | disposition home or self-care (01) | DRG 291 ==
LOC: EC 03:22 → 3SCARD 06:37
PROVIDERS: ADMIT Hospitalist; ATTEND Hospitalist
DX: I13.0 Hypertensive heart and chronic kidney disease with heart failure and stage 1 through stage 4 chronic kidney disease, or unspecified chronic kidney disease (principal); I50.23 Acute on chronic systolic (congestive) heart failure; J96.21 Acute and chronic respiratory failure with hypoxia; I85.11 Secondary esophageal varices with bleeding; D61.818 Other pancytopenia; N17.9 Acute kidney failure, unspecified; I48.19 Other persistent atrial fibrillation; J44.1 Chronic obstructive pulmonary disease with (acute) exacerbation; Q21.12 Patent foramen ovale; I27.20 Pulmonary hypertension, unspecified; K70.30 Alcoholic cirrhosis of liver without ascites; N18.31 Chronic kidney disease, stage 3a; I08.3 Combined rheumatic disorders of mitral, aortic and tricuspid valves; F17.210 Nicotine dependence, cigarettes, uncomplicated; D50.0 Iron deficiency anemia secondary to blood loss (chronic); E78.5 Hyperlipidemia, unspecified; I49.3 Ventricular premature depolarization; D72.819 Decreased white blood cell count, unspecified; B19.20 Unspecified viral hepatitis C without hepatic coma; R16.1 Splenomegaly, not elsewhere classified; Z99.81 Dependence on supplemental oxygen; Z79.51 Long term (current) use of inhaled steroids; Z79.52 Long term (current) use of systemic steroids; Z92.3 Personal history of irradiation; Z92.21 Personal history of antineoplastic chemotherapy; Z85.05 Personal history of malignant neoplasm of liver; Z85.818 Personal history of malignant neoplasm of other sites of lip, oral cavity, and pharynx; Z85.828 Personal history of other malignant neoplasm of skin; Z79.899 Other long term (current) drug therapy
CPT/HCPCS: 36415; 71045; 80048; 80053; 80074; 82525; 82607; 82728; 82746; 83540; 83550; 83605; 83735; 83880; 83921; 84484; 85025; 85384; 85610; 85730; 87390; 87522; 93005; 93306; 94640; 94760; 96361; 96374; 96375; 96376; 99291

== ENCOUNTER 2023-02-15 15:30 | Inpatient (IN) | payer OTHER, MEDICARE ==
--- NOTE | 2023-02-15 15:54 | ED ---
General Adult HPI - General Chief complaint: Shortness of Breath Stated complaint: SOB Time Seen by Provider: 02/15/23 15:40 Source: patient, RN notes reviewed, old records reviewed Mode of arrival: ambulatory Limitations: no limitations - History of Present Illness Initial comments: 73-year-old male history of CHF, aortic stenosis, atrial fibrillation presenting for evaluation of dyspnea. Patient was recently discharged from the hospital. He states his symptoms were not improved at the time of discharge. He states that he contacted the lens grinder rough office and was informed by staff that he should return to the emergency department. He denies measured fever. Denies current chest pain. States that he has exertional dyspnea and orthopnea. He does report lower extremity edema as well as abdominal distention. - Related Data Home Medications Medication Instructions Recorded Confirmed amLODIPine [Norvasc] 10 mg PO DAILY 08/06/14 02/15/23 Colchicine 0.6 mg PO DAILY 08/02/16 02/15/23 Hydrocodone/Acetaminophen [[place] 1 tab PO QID PRN 08/31/18 02/15/23 10-325] Ferrous Sulfate [Iron (65 MG 487.5 mg PO DAILY 12/29/18 02/15/23 Elemental)] Albuterol Inhaler [Ventolin Hfa 2 puff INHALATION RT-QID PRN 07/29/19 02/15/23 Inhaler] Omeprazole 20 mg PO BID 05/16/20 02/15/23 Fluticasone Propion/Salmeterol 1 puff INHALATION RT-BID 06/08/22 02/15/23 [[place]ela 250-50 Inhub] hydrALAZINE HCL [Apresoline] 100 mg PO TID 06/08/22 02/15/23 Folic Acid 1 mg PO DAILY 01/14/23 02/15/23 Tiotropium 2.5 Mcg/Puff [Spiriva 1 puff INHALATION RT-BID 01/14/23 02/15/23 Respimat 2.5 Mcg] predniSONE 5 mg PO DAILY 01/14/23 02/15/23 traZODone HCL [Desyrel] 50 mg PO HS 01/14/23 02/15/23 Cholecalciferol [Vitamin D3 (25 25 mcg PO DAILY 02/11/23 02/15/23 Mcg = 1000 Iu)] Multivit-Min/FA/Lycopen/Lutein 1 tab PO DAILY 02/11/23 02/15/23 [Centrum Silver Tablet] Xylitol [Xylimelts] 500 mg MM HS 02/11/23 02/15/23 Previous Rx's Medication Instructions Recorded Metoprolol Tartrate [Lopressor] 50 mg PO TID #90 tab 02/13/23 Allergies Allergy/AdvReac Type Severity Reaction Status Date / Time No Known Allergies Allergy Verified 02/15/23 17:42 Review of Systems ROS Statement: Those systems with pertinent positive or pertinent negative responses have been documented in the HPI. ROS Other: All systems not noted in ROS Statement are negative. 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 History of Any Multi-Drug Resistant Organisms: None Reported Past Surgical History: Back Surgery, Heart Catheterization, Hernia Repair, Orthopedic Surgery Additional Past Surgical History / Comment(s): liver ablation done at [place] for tx of hepatocellular carcinoma,hemorrhoids ,back surgery, cataract, skin cancer, inguinal hernia, abdominal hernia, left shoulder, right wrist, growth removed vocal cord, PAROTID GLAD REMOVED DUE TO CANCER Past Anesthesia/Blood Transfusion Reactions: No Reported Reaction Additional Past Anesthesia/Blood Transfusion Reaction / Comment(s): no hx blood transfusion Past Psychological History: No Psychological Hx Reported Smoking Status: Former smoker Past Alcohol Use History: None Reported Past Drug Use History: None Reported - Past Family History Father Family Medical History: Cancer General Exam Limitations: no limitations General appearance: alert, in no apparent distress Head exam: Present: atraumatic, normocephalic Eye exam: Present: normal appearance, PERRL Neck exam: Present: normal inspection Respiratory exam: Present: rales, decreased breath sounds. Absent: respiratory distress Cardiovascular Exam: Present: regular rate, irregular rhythm GI/Abdominal exam: Present: soft, distended Extremities exam: Present: pedal edema Course Vital Signs 02/15/23 02/15/23 02/15/23 15:35 16:19 17:16 Temperature 98.5 F Pulse Rate 95 96 Respiratory 18 18 18 Rate Blood Pressure 148/89 158/95 O2 Sat by Pulse 95 95 Oximetry Medical Decision Making - Medical Decision Making Was pt. sent in by a medical professional or institution (DALE Mendez, WATER SUPPLY ENGINEER, urgent care, hospital, or senior care...) When possible be specific @ -No Did you speak to anyone other than the patient for history (EMS, parent, family, police, friend...)? What history was obtained from this source @ -No Did you review nursing and triage notes (agree or disagree)? Why? @ -I reviewed and agree with nursing and triage notes Were old charts reviewed (outside hosp., previous admission, EMS record, old EKG , old radiological studies, urgent care reports/EKG's, senior care records)? Report findings @ -No old charts were reviewed Differential Diagnosis (chest pain, altered mental status, abdominal pain women, abdominal pain men, vaginal bleeding, weakness, fever, dyspnea, syncope, headache, dizziness, GI bleed, back pain, seizure, CVA, palpatations, mental health, musculoskeletal)? @ -Differential Dyspnea: Coronary syndrome, arrhythmia, tamponade, asthma, COPD, pulmonary embolism, pneumonia, pneumothorax, pulmonary effusion, anaphylaxis, diabetic ketoacidosis, flailed chest, pulmonary contusion, diaphragmatic rupture, anemia, neuromusc ular, this is not meant to be an all-inclusive list. EKG interpreted by me (3pts min.). @ EKG: Atrial fibrillation rate of 97, PVC, QRS duration 109, QTC 429, no ST segment elevation. X-rays interpreted by me (1pt min.). @ -Negative for pneumothorax or focal pneumonia on chest x-ray, cardiomegaly CT interpreted by me (1pt min.). @ -None done U/S interpreted by me (1pt. min.). @ -None done What testing was considered but not performed or refused? (CT, X-rays, U/S, labs)? Why? @ -None What meds were considered but not given or refused? Why? @ -None Did you discuss the management of the patient with other professionals (professionals i.e. DALE Mendez, WATER SUPPLY ENGINEER, lab, RT, psych nurse, social scientist, sales property manager, teacher, chief technical officer, case advocate)? Give summary @ -No Was smoking cessation discussed for >3mins.? @ -No Was critical care preformed (if so, how long)? @ -No Were there social determinants of health that impacted care today? How? (H omelessness, low income, unemployed, alcoholism, drug addiction, transportation, low edu. Level, literacy, decrease access to med. care, half-way, rehab)? @ -No Was there de-escalation of care discussed even if they declined (Discuss DNR or withdrawal of care, Hospice)? DNR status @ -No What co-morbidities impacted this encounter? (DM, HTN, Smoking, COPD, CAD, Cancer, CVA, ARF, Chemo, Hep., AIDS, mental health diagnosis, sleep apnea, morbid obesity)? @ CHF, aortic stenosis with regurgitation, atrial fibrillation Was patient admitted / discharged? Hospital course, mention meds given and route, prescriptions, significant lab abnormalities, going to OR and other pertinent info. @ -73-year-old male with dyspnea, multifactorial. Patient's vital signs are stable. Chest x-ray does not show dev CHF, he does have an elevated BNP at 7000. He had an echo on recent admission which showed aortic stenosis with regurgitation and a reduced ejection fraction. The patient states that he currently lives alone and is not comfortable being discharged. He will be obser galindo overnight for dose of IV Lasix. He states that he needs to follow-up with his lens grinder rough regarding the possible treatments for his aortic stenosis. Undiagnosed new problem with uncertain prognosis? @ -No Drug Therapy requiring intensive monitoring for toxicity (Heparin, Nitro, Insulin, Cardizem)? @ -No Were any procedures done? @ -No Diagnosis/symptom? @ CHF, aortic stenosis Acute, or Chronic, or Acute on Chronic? @ Acute on chronic Uncomplicated (without systemic symptoms) or Complicated (systemic symptoms)? @ -default Side effects of treatment? @ -No Exacerbation, Progression, or Severe Exacerbation? @ -No Poses a threat to life or bodily function? How? (Chest pain, [place], [place], pneumonia, PE, COPD, DKA, ARF, appy, cholecystitis, CVA, Diverticulitis, Homicidal, Suicidal, threat to staff... and all critical care pts) @ Yes, CHF - Lab Data Result diagrams: 02/15/23 16:15 02/15/23 16:15 Lab Results 02/15/23 02/15/23 02/15/23 Range/Units 16:15 16:15 16:15 WBC 2.7 L (3.8-10.6) k/uL RBC 4.45 (4.30-5.90) m/uL Hgb 12.6 L (13.0-17.5) gm/dL Hct 38.8 L (39.0-53.0) % MCV 87.1 (80.0-100.0) fL MCH 28.3 (25.0-35.0) pg MCHC 32.5 (31.0-37.0) g/dL RDW 16.5 H (11.5-15.5) % Plt Count 63 L (150-450) k/uL MPV 9.9 Neutrophils % 75 % Lymphocytes % 12 % Monocytes % 8 % Eosinophils % 3 % Basophils % 0 % Neutrophils # 2.0 (1.3-7.7) k/uL Lymphocytes # 0.3 L (1.0-4.8) k/uL Monocytes # 0.2 (0-1.0) k/uL Eosinophils # 0.1 (0-0.7) k/uL Basophils # 0.0 (0-0.2) k/uL Anisocytosis Slight PT 12.0 (10.0-12.5) sec INR 1.1 (<1.2) APTT 30.1 H (22.0-30.0) sec Sodium 140 (137-145) mmol/L Potassium 3.5 (3.5-5.1) mmol/L Chloride 105 (98-107) mmol/L Carbon Dioxide 25 (22-30) mmol/L Anion Gap 10 mmol/L BUN 44 H (9-20) mg/dL Creatinine 1.70 H (0.66-1.25) mg/dL Est GFR (CKD-EPI)AfAm 46 (>60 ml/min/1.73 sqM) Est GFR (CKD-EPI)NonAf 40 (>60 ml/min/1.73 sqM) Glucose 101 H (74-99) mg/dL Calcium 8.8 (8.4-10.2) mg/dL Magnesium 1.8 (1.6-2.3) mg/dL Total Bilirubin 1.0 (0.2-1.3) mg/dL AST 31 (17-59) U/L ALT 28 (4-49) U/L Alkaline Phosphatase 107 (38-126) U/L Troponin I (0.000-0.034) ng/mL NT-Pro-B Natriuret Pep 7000 pg/mL Total Protein 6.8 (6.3-8.2) g/dL Albumin 3.9 (3.5-5.0) g/dL 02/15/23 Range/Units 16:15 WBC (3.8-10.6) k/uL RBC (4.30-5.90) m/uL Hgb (13.0-17.5) gm/dL Hct (39.0-53.0) % MCV (80.0-100.0) fL MCH (25.0-35.0) pg MCHC (31.0-37.0) g/dL RDW (11.5-15.5) % Plt Count (150-450) k/uL MPV Neutrophils % % Lymphocytes % % Monocytes % % Eosinophils % % Basophils % % Neutrophils # (1.3-7.7) k/uL Lymphocytes # (1.0-4.8) k/uL Monocytes # (0-1.0) k/uL Eosinophils # (0-0.7) k/uL Basophils # (0-0.2) k/uL Anisocytosis PT (10.0-12.5) sec INR (<1.2) APTT (22.0-30.0) sec Sodium (137-145) mmol/L Potassium (3.5-5.1) mmol/L Chloride (98-107) mmol/L Carbon Dioxide (22-30) mmol/L Anion Gap mmol/L BUN (9-20) mg/dL Creatinine (0.66-1.25) mg/dL Est GFR (CKD-EPI)AfAm (>60 ml/min/1.73 sqM) Est GFR (CKD-EPI)NonAf (>60 ml/min/1.73 sqM) Glucose (74-99) mg/dL Calcium (8.4-10.2) mg/dL Magnesium (1.6-2.3) mg/dL Total Bilirubin (0.2-1.3) mg/dL AST (17-59) U/L ALT (4-49) U/L Alkaline Phosphatase (38-126) U/L Troponin I 0.025 (0.000-0.034) ng/mL NT-Pro-B Natriuret Pep pg/mL Total Protein (6.3-8.2) g/dL Albumin (3.5-5.0) g/dL Disposition Clinical Impression: Congestive heart failure Disposition: ADMITTED IP TO THIS HOSP Condition: Stable Is patient prescribed a controlled substance at d/c from ED?: No Referrals: Drew Medrano MD [Primary Care Provider] - 1-2 days Time of Disposition: 18:10
[2023-02-15 16:36] LABS: Anisocytosis Slight; Basophils % (A) 0 %; Eosinophils # (A) 0.1 k/uL (0-0.7); Eosinophils % (A) 3 %; HCT 38.8 % (39.0-53.0); HGB 12.6 gm/dL (13.0-17.5); Lymphocytes # (A) 0.3 k/uL (1.0-4.8); Lymphocytes % (A) 12 %; MCH 28.3 pg (25.0-35.0); MCHC 32.5 g/dL (31.0-37.0); MCV 87.1 fL (80.0-100.0); Mean Platelet Volume 9.9; Monocytes # (A) 0.2 k/uL (0-1.0); Monocytes % (A) 8 %; Neutrophils % (A) 75 %; RBC 4.45 m/uL (4.30-5.90); RDW 16.5 % (11.5-15.5); WBC 2.7 k/uL (3.8-10.6)
[2023-02-15 16:45] LABS: ALT 28 U/L (4-49); AST 31 U/L (17-59); African American GFR (CKD) 46 (>60 ml/min/1.73 sqM); Albumin 3.9 g/dL (3.5-5.0); Alkaline Phosphatase 107 U/L (38-126); Anion Gap 10 mmol/L; Blood Urea Nitrogen 44 mg/dL (9-20); Calcium 8.8 mg/dL (8.4-10.2); Carbon Dioxide 25 mmol/L (22-30); Chloride 105 mmol/L (98-107); Glucose 101 mg/dL (74-99); Magnesium 1.8 mg/dL (1.6-2.3); Non-African American GFR(CKD) 40 (>60 ml/min/1.73 sqM); Potassium 3.5 mmol/L (3.5-5.1); Sodium 140 mmol/L (137-145); Total Protein 6.8 g/dL (6.3-8.2)
[2023-02-15 16:54] LABS: NT-Pro-B-Type Natriuretic Pept 7000 pg/mL
[2023-02-15 16:59] LABS: Platelet Count 63 k/uL (150-450)
[2023-02-15 17:10] LABS: INR 1.1 (<1.2); Partial Thromboplastin Time 30.1 sec (22.0-30.0)
--- NOTE | 2023-02-15 17:14 | XR ---
EXAMINATION TYPE: XR chest 2V DATE OF EXAM: 02/15/2023 4:47 PM CLINICAL INDICATION:Male, 73 years old with history of difficulty breathing; [facility] COMPARISON: 02/11/2023 TECHNIQUE: XR chest 2V Frontal and lateral views of the chest. FINDINGS: Lines/Tubes: EKG leads overlie the chest. No indwelling lines are seen. Lungs/Pleura: Mild linear opacities in the lung bases, likely scarring or subsegmental atelectasis. N o acute consolidation, sizable effusion, or pneumothorax. Hyperinflation with mild interstitial opaci ties, could be related to COPD. Pulmonary vascularity: Not increased. Heart/mediastinum: Similar mild/moderate enlargement of the cardiac silhouette suggesting cardiomegal y. Mild tortuosity with partial calcification of the aorta again noted. Musculoskeletal: No acute osseous abnormality is seen. Mild degenerative changes of the dorsal spine. Other findings: Surgical clips in the right base of neck. Hardware anchor in the left proximal humeru s partially seen. IMPRESSION: Mild scarring or subsegmental atelectasis in the lung bases. Otherwise no acute process.
[2023-02-15] MEDS ORDERED: FUROSEMIDE 10 MG/ML 4 ML VIAL IV STA (18:07)
[2023-02-15] MEDS ORDERED: NALOXONE 0.4 MG/ML 1 ML VIAL IV PRN (18:10)
[2023-02-15] MEDS ORDERED: ALBUTEROL NEBULIZED 2.5 MG/3 ML INHALATION PRN (18:11)
[2023-02-15] MEDS: METOPROLOL TARTRATE 50 MG TAB PO SCH (21:07)
[2023-02-15] MEDS: hydrALAZINE HCL 50 MG TAB PO SCH (21:07)
[2023-02-15] MEDS: HYDROcodone/APAP 10-325MG 1 EACH TAB PO PRN (21:09)
[2023-02-15] MEDS ORDERED: ALBUTEROL HFA INHALER INHALATION PRN (23:50)
[2023-02-16] MEDS: traZODone HCL 50 MG TAB PO SCH ×2 (00:17→21:01)
[2023-02-16] MEDS: PANTOPRAZOLE 40 MG TABLET PO SCH ×2 (05:39→15:38)
[2023-02-16] MEDS: FUROSEMIDE 10 MG/ML 4 ML VIAL IV SCH ×2 (05:39→17:24)
[2023-02-16] MEDS: IPRATROPIUM 0.5 MG/2.5 ML NEBU INHALATION SCH ×2 (08:27→20:05)
--- NOTE | 2023-02-16 08:47 | P.HPIM ---
History of Present Illness This is a pleasant 73 years old male with past medical history significant for chronic liver disease, alcohol-induced cirrhosis, thrombocytopenia, iron deficiency anemia from bleeding esophageal varices history of hep C, COPD previo us history of atrial fibrillation, hyperlipidemia, hepatocellular carcinoma, aortic stenosis, chronic kidney disease stage IIIa Presents because of difficulty breathing 2 weeks associated with palpitation and the distal dizziness and lightheadedness, or slightly getting worse. His symptoms started shortly after discharge from the hospital last time, he did not get his Lasix when he went home, he says that when he takes Lasix he feels better. He has chest pain that comes and go, currently he denies any chest pain. No GI or urinary symptoms, no weakness numbness or headache. He has little nausea He has chronic balance problem He uses oxygen 2 L/m, mean kidney at night but recently has been using it more. He denies smoking alcohol or illicit drugs. WBCs 2.7, platelets 60 3K which is at baseline of her rate 60, creatinine slightly elevated at 1.7 with baseline 1.3-1.6. Heart rate currently 102. Currently he is on IV Lasix 40 mg twice daily. As well as metoprolol home dose of 50 mg 3 times a day Review of Systems Review of systems CONSTITUTIONAL: No fever, no malaise, no fatigue. HEENT: No recent visual problems or hearing problems. Denied any sore throat. CARDIOVASCULAR: No orthopnea, PND, no palpitations, no syncope. PULMONARY: no cough, no hemoptysis. GASTROINTESTINAL: No diarrhea, no nausea, no vomiting, no abdominal pain. Normoa ctive bowel sounds. NEUROLOGICAL: No headaches, no weakness, no numbness. HEMATOLOGICAL: Denies any bleeding or petechiae. GENITOURINARY: Denies any burning micturition, frequency, or urgency. MUSCULOSKELETAL/RHEUMATOLOGICAL: Denies any joint pain, swelling, or any muscle pain. ENDOCRINE: Denies any polyuria or polydipsia. 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 History of Any Multi-Drug Resistant Organisms: None Reported Past Surgical History: Back Surgery, Heart Catheterization, Hernia Repair, Orthopedic Surgery Additional Past Surgical History / Comment(s): liver ablation done at [place] for tx of hepatocellular carcinoma,hemorrhoids ,back surgery, cataract, skin cancer, inguinal hernia, abdominal hernia, left shoulder, right wrist, growth removed vocal cord, PAROTID GLAD REMOVED DUE TO CANCER Past Anesthesia/Blood Transfusion Reactions: No Reported Reaction Additional Past Anesthesia/Blood Transfusion Reaction / Comment(s): no hx blood transfusion Past Psychological History: No Psychological Hx Reported Smoking Status: Former smoker Past Alcohol Use History: None Reported Additional Past Alcohol Use History / Comment(s): Smoking on and off for 45 years. Past Drug Use History: None Reported - Past Family History Father Family Medical History: Cancer Medications and Allergies Home Medications Medication Instructions Recorded Confirmed Type amLODIPine [Norvasc] 10 mg PO DAILY 08/06/14 02/15/23 History Colchicine 0.6 mg PO DAILY 08/02/16 02/15/23 History Hydrocodone/Acetaminophen [[place] 1 tab PO QID PRN 08/31/18 02/15/23 History 10-325] Ferrous Sulfate [Iron (65 MG 487.5 mg PO DAILY 12/29/18 02/15/23 History Elemental)] Albuterol Inhaler [Ventolin Hfa 2 puff INHALATION RT-QID PRN 07/29/19 02/15/23 History Inhaler] Omeprazole 20 mg PO BID 05/16/20 02/15/23 History Fluticasone Propion/Salmeterol 1 puff INHALATION RT-BID 06/08/22 02/15/23 History [Wixela 250-50 Inhub] hydrALAZINE HCL [Apresoline] 100 mg PO TID 06/08/22 02/15/23 History Folic Acid 1 mg PO DAILY 01/14/23 02/15/23 History Tiotropium 2.5 Mcg/Puff [Spiriva 1 puff INHALATION RT-BID 01/14/23 02/15/23 History Respimat 2.5 Mcg] predniSONE 5 mg PO DAILY 01/14/23 02/15/23 History traZODone HCL [Desyrel] 50 mg PO HS 01/14/23 02/15/23 History Cholecalciferol [Vitamin D3 (25 25 mcg PO DAILY 02/11/23 02/15/23 History Mcg = 1000 Iu)] Multivit-Min/FA/Lycopen/Lutein 1 tab PO DAILY 02/11/23 02/15/23 History [Centrum Silver Tablet] Xylitol [Xylimelts] 500 mg MM HS 02/11/23 02/15/23 History Metoprolol Tartrate [Lopressor] 50 mg PO TID #90 tab 02/13/23 02/15/23 Rx Allergies Allergy/AdvReac Type Severity Reaction Status Date / Time No Known Allergies Allergy Verified 02/15/23 17:42 Physical Exam Vitals: Vital Signs Temp Pulse Pulse Resp BP BP Pulse Ox 02/16/23 08:31 97.9 F 84 17 128/75 95 02/16/23 08:27 94 02/16/23 05:52 96 02/16/23 05:49 94 L 02/16/23 05:45 94 02/16/23 04:00 97.9 F 94 16 145/84 96 02/16/23 00:00 97.4 F L 93 16 127/73 93 L 02/15/23 21:39 98.3 F 99 18 119/84 96 02/15/23 20:00 97.5 F L 77 18 141/88 97 02/15/23 18:40 102 H 11 L 02/15/23 18:30 92 10 L 02/15/23 18:20 105 H 11 L 02/15/23 18:10 102 H 10 L 02/15/23 18:00 87 15 02/15/23 17:40 96 7 L 95 02/15/23 17:30 96 7 L 95 02/15/23 17:20 105 H 16 158/95 96 02/15/23 17:16 96 18 158/95 95 02/15/23 17:10 99 13 95 02/15/23 17:00 98 11 L 96 02/15/23 16:50 105 H 12 95 02/15/23 16:40 99 10 L 96 02/15/23 16:30 92 10 L 94 L 02/15/23 16:20 96 16 95 02/15/23 16:19 18 02/15/23 16:10 107 H 12 95 02/15/23 16:00 95 02/15/23 15:35 98.5 F 95 18 148/89 95 Intake and Output 02/15/23 02/16/23 02/16/23 22:59 06:59 14:59 Output Total 1400 Balance -1400 Output: Urine 1400 Other: Weight 83.915 kg 83.9 kg GENERAL: The patient is alert and oriented x3, not in any acute distress. Well developed, well nourished. HEENT: Pupils are round and equally reacting to light. EOMI. No scleral icterus. No conjunctival pallor. Normocephalic, atraumatic. No pharyngeal erythema. No thyromegaly. CARDIOVASCULAR: S1 and S2 present. No murmurs, rubs, or gallops. PULMONARY: Chest is clear to auscultation, no wheezing , no crackles. ABDOMEN: Soft, nontender, nondistended, normoactive bowel sounds. No palpable organomegaly. MUSCULOSKELETAL: No joint swelling or deformity. EXTREMITIES: No cyanosis, clubbing, or pedal edema. NEUROLOGICAL: Gross neurological examination did not reveal any focal deficits. SKIN: No rashes. no petechiae. Results CBC & Chem 7: 02/15/23 16:15 02/15/23 16:15 Labs: Abnormal Lab Results - Last 24 Hours (Table) 02/15/23 02/15/23 02/15/23 Range/Units 16:15 16:15 16:15 WBC 2.7 L (3.8-10.6) k/uL Hgb 12.6 L (13.0-17.5) gm/dL Hct 38.8 L (39.0-53.0) % RDW 16.5 H (11.5-15.5) % Plt Count 63 L (150-450) k/uL Lymphocytes # 0.3 L (1.0-4.8) k/uL APTT 30.1 H (22.0-30.0) sec BUN 44 H (9-20) mg/dL Creatinine 1.70 H (0.66-1.25) mg/dL Glucose 101 H (74-99) mg/dL Thrombosis Risk Factor Assmnt - Choose All That Apply Any of the Below Risk Factors Present?: Yes Each Factor Represents 1 point: Swollen legs (current) Other Risk Factors: Yes Each Risk Factor Represents 2 Points: Age 61-74 years Other congenital or acquired thrombophilia - If yes, enter type in comment: No Thrombosis Risk Factor Assessment Total Risk Factor Score: 3 Thrombosis Risk Factor Assessment Level: Moderate Risk Assessment and Plan Assessment: Persistent atrial fibrillation with RVR Mild acute on chronic CHF, ejection fraction 30-35% with global hypokinesia [id number] aortic stenosis and moderate aortic regurgitation Lightheadedness and dizziness with other symptoms like dyspnea and palpitations mostly secondary to above Acute renal failure on chronic kidney disease, most likely secondary to cardiorenal syndrome Chronic hypoxic respiratory failure due to Acute CHF Hx of COPD with mild acute exacerbation treated with IV steroids PFO Pancytopenia follows outpt with Dr Guy for Hx of thrombocytopenia Chronic kidney disease stage III Hx of hepatitis C Hypertension Hx liver cancer and parotid gland cancer Chronic ongoing nicotine use Alcoholic liver cirrhosis Plan: Continue with IV Lasix and monitor creatinine and electrolytes Continue with metoprolol He is not a candidate for blood thinner because of his blood disease problem and thrombocytopenia per Cardiology team recommendation Cardiology consult Labs and medication were reviewed.. Continue same treatment. Continue with symptomatic treatment. Resume home medication. Monitor labs and vitals. DVT and GI prophylaxis. Further recommendations as per clinical course of the patient DVT prophylaxis: Subcutaneous heparin GI Prophylaxis: Pepcid PT/OT: Pending Prognosis is guarded
[2023-02-16] MEDS: amLODIPine 10 MG TAB PO SCH (09:01)
[2023-02-16] MEDS: hydrALAZINE HCL 50 MG TAB PO SCH ×3 (09:01→21:01)
[2023-02-16] MEDS: METOPROLOL TARTRATE 50 MG TAB PO SCH ×3 (09:01→21:01)
[2023-02-16] MEDS: predniSONE 5 MG TAB PO SCH (09:02)
[2023-02-16] MEDS: FERROUS SULFATE 325 MG TAB PO SCH (09:02)
[2023-02-16] MEDS: HYDROcodone/APAP 10-325MG 1 EACH TAB PO PRN ×2 (09:05→15:38)
[2023-02-16] MEDS: HEPARIN SODIUM,PORCINE 5,000 UNIT/ML 1 ML VIAL SQ SCH ×2 (12:40→19:36)
[2023-02-17] MEDS: HYDROcodone/APAP 10-325MG 1 EACH TAB PO PRN ×3 (02:30→16:53)
[2023-02-17] MEDS: FUROSEMIDE 10 MG/ML 4 ML VIAL IV SCH ×2 (06:15→16:53)
[2023-02-17] MEDS: PANTOPRAZOLE 40 MG TABLET PO SCH ×2 (06:15→16:53)
[2023-02-17 07:20] LABS: African American GFR (CKD) 43 (>60 ml/min/1.73 sqM); Anion Gap 9 mmol/L; Blood Urea Nitrogen 49 mg/dL (9-20); Calcium 8.7 mg/dL (8.4-10.2); Carbon Dioxide 30 mmol/L (22-30); Chloride 100 mmol/L (98-107); Glucose 97 mg/dL (74-99); Non-African American GFR(CKD) 37 (>60 ml/min/1.73 sqM); Potassium 3.3 mmol/L (3.5-5.1); Sodium 139 mmol/L (137-145)
[2023-02-17] MEDS: HEPARIN SODIUM,PORCINE 5,000 UNIT/ML 1 ML VIAL SQ SCH ×2 (07:57→20:11)
[2023-02-17] MEDS: METOPROLOL TARTRATE 50 MG TAB PO SCH ×3 (07:58→20:12)
[2023-02-17] MEDS: hydrALAZINE HCL 50 MG TAB PO SCH ×3 (07:58→20:12)
[2023-02-17] MEDS: FERROUS SULFATE 325 MG TAB PO SCH (07:58)
[2023-02-17] MEDS: amLODIPine 10 MG TAB PO SCH (07:58)
[2023-02-17] MEDS: predniSONE 5 MG TAB PO SCH (07:58)
[2023-02-17] MEDS: IPRATROPIUM 0.5 MG/2.5 ML NEBU INHALATION SCH ×2 (08:22→19:54)
[2023-02-17] MEDS ORDERED: Potassium Replacement Protocol 1 EACH MISC MISCELLANE PRN (09:15)
--- NOTE | 2023-02-17 09:21 | P.PN ---
Subjective This is a pleasant 73 years old male with past medical history significant for chronic liver disease, alcohol-induced cirrhosis, thrombocytopenia, iron deficiency anemia from bleeding esophageal varices history of hep C, COPD previous history of atrial fibrillation, hyperlipidemia, hepatocellular carcinoma, aortic stenosis, chronic kidney disease stage IIIa Presents because of difficulty breathing 2 weeks associated with palpitation and the distal dizziness and lightheadedness, or slightly getting worse. His symptoms started shortly after discharge from the hospital last time, he did not get his Lasix when he went home, he says that when he takes Lasix he feels better. He has chest pain that comes and go, currently he denies any chest pain. No GI or urinary symptoms, no weakness numbness or headache. He has little nausea He has chronic balance problem He uses oxygen 2 L/m, mean kidney at night but recently has been using it more. He denies smoking alcohol or illicit drugs. WBCs 2.7, platelets 60 3K which is at baseline of her rate 60, creatinine slightly elevated at 1.7 with baseline 1.3-1.6. Heart rate currently 102. Currently he is on IV Lasix 40 mg twice daily. As well as metoprolol home dose of 50 mg 3 times a day 02/17/2023 Patient feels better today, he says that his dyspnea and palpitations looks better but not completely resolved. Much basal crepitation or leg edema. Patient denies chest pain. No other new complaints. Patient is less tachycardic. Creatinine is stable at 1.7. CBC is pending Patient on IV Lasix 40 mg twice daily Objective - Vital Signs Vital signs: Vital Signs Temp 97.7 F 02/16/23 20:00 Pulse 92 02/17/23 08:36 Resp 17 02/17/23 07:53 BP 124/69 02/17/23 07:53 Pulse Ox 92 L 02/17/23 07:53 FiO2 Intake & Output 02/16/23 02/17/23 02/17/23 18:59 06:59 18:59 Intake Total 480 540 240 Output Total 1825 1250 Balance -1345 -710 240 Weight 84.4 kg 82.6 kg Intake: Oral 480 540 240 Output: Urine 1825 1250 Other: Voiding Method Toilet Toilet - Exam GENERAL: The patient is alert and oriented x3, not in any acute distress. Well developed, well nourished. HEENT: Pupils are round and equally reacting to light. EOMI. No scleral icterus. No conjunctival pallor. Normocephalic, atraumatic. No pharyngeal erythema. No thyromegaly. CARDIOVASCULAR: S1 and S2 present. No murmurs, rubs, or gallops. PULMONARY: Chest is clear to auscultation, no wheezing , no crackles. ABDOMEN: Soft, nontender, nondistended, normoactive bowel sounds. No palpable organomegaly. MUSCULOSKELETAL: No joint swelling or deformity. EXTREMITIES: No cyanosis, clubbing, or pedal edema. NEUROLOGICAL: Gross neurological examination did not reveal any focal deficits. SKIN: No rashes. no petechiae. - Labs CBC & Chem 7: 02/15/23 16:15 02/17/23 06:10 Labs: Abnormal Lab Results - Last 24 Hours (Table) 02/17/23 Range/Units 06:10 Potassium 3.3 L (3.5-5.1) mmol/L BUN 49 H (9-20) mg/dL Creatinine 1.79 H (0.66-1.25) mg/dL Assessment and Plan Assessment: Persistent atrial fibrillation with RVR Mild acute on chronic CHF, ejection fraction 30-35% with global hypokinesia Tixi-ts-pejaybeo aortic stenosis and moderate aortic regurgitation Lightheadedness and dizziness with other symptoms like dyspnea and palpitations mostly secondary to above Acute renal failure on chronic kidney disease, most likely secondary to cardiorenal syndrome Chronic hypoxic respiratory failure due to Acute CHF Hx of COPD with mild acute exacerbation treated with IV steroids PFO Pancytopenia follows outpt with Dr Guy for Hx of thrombocytopenia Chronic kidney disease stage III Hx of hepatitis C Hypertension Hx liver cancer and parotid gland cancer Chronic ongoing nicotine use Alcoholic liver cirrhosis Plan: Continue with IV Lasix and monitor creatinine and electrolytes Continue with metoprolol He is not a candidate for blood thinner because of his blood disease problem and thrombocytopenia per Cardiology team recommendation Cardiology consult Labs and medication were reviewed.. Continue same treatment. Continue with symptomatic treatment. Resume home medication. Monitor labs and vitals. DVT and GI prophylaxis. Further recommendations as per clinical course of the patient DVT prophylaxis: Subcutaneous heparin GI Prophylaxis: Ppi PT/OT: Pending Prognosis is guarded
[2023-02-17] MEDS: POTASSIUM CHLORIDE ER 20 MEQ TAB.ER PO SCH ×2 (09:38→09:39)
--- NOTE | 2023-02-17 11:00 | P.CRDCN ---
History of Present Illness Consult date: 02/17/23 Consult reason: congestive heart failure History of present illness: This is a 73-year-old male patient of Dr. 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 We have been asked to see the patient regarding CHF. Patient was just discharged from the hospital on 02/13 at that time was treated for persistent atrial fibrillation with poorly controlled ventricular rate, acute on chronic systolic heart failure. He states that he developed shortness of breath is coming and going and that he did not receive any Lasix when he was discharged from the hospital. Patient did get started on Lasix IV 40 mg every 12 hours in the emergency center and he states he is urinating quite a bit and feels shortness of breath is improved. He states his lower extremity edema has improved. EKG: Atrial fibrillation with PVCs ventricular rate at 97 bpm Chest x-ray reveals mild scarring or subsegmental atelectasis in the lung bases otherwise no acute process Echocardiogram performed on 02/12/2023 revealed severely impaired left ventricle systolic function with global hypokinesis and EF 30-35%. Iqbt-ls-atrsyhcq mitral, moderate tricuspid regurgitation and moderate pulmonary hypertension. Heavily calcified aortic valve probably bicuspid. Wvws-ap-ggkralny aortic stenosis with moderate aortic regurgitation. Patent foramen ovale with left to right shunting. WBC 2.7, hemoglobin 12.6, platelet count 63. INR 1.1. Sodium 139, potassium 3.3, BUN 49 creatinine 1.79 Home cardiac medications: Amlodipine 10 mg daily, hydralazine 100 mg 3 times daily, Lopressor 50 mg 3 times daily. Lexiscan stress test 2017 was negative, probable normal perfusion study with mild fixed defect involving the inferior segment most probably secondary to soft tissue attenuation. Gated images show normal wall motion and thickening. Cardiac catheterization 06/14/2022 revealed 30% stenosis of the LAD, increased left-sided filling pressures, moderate . Review Of Systems: Constitutional: No fever, no chills, no night sweats. No daytime sleepiness. EENT: No headache. No blurred vision or double vision, no loss of vision. Lungs: No shortness of breath-resolved, no cough, no sputum production. No wheezing. Cardiovascular: No chest pain, no lower extremity edema-resolved. No palpitations. No syncopal episodes. Abdominal: No abdominal pain. No nausea, vomiting. No diarrhea. Musculoskeletal: No myalgias. No muscle weakness, no gait dysfunction, no frequent falls. Integumentary: No wounds, no lesions. No rash or pruritus. No unusual bruising. Neurologic: No aphasia. No facial droop. No change in mentation. Endocrine:No excessive sweating or thirst. No cold intolerance. Physical examination: Gen: This is a 73-year-old male resting in chair and appears to be comfortable and in no acute distress VS: reviewed HEENT: Head is atraumatic, normocephalic. Pupils equal, round. Sclerae is anicteric. NECK: Supple. No JVD. LUNGS: Few crackles in the bases. No intercostal retractions. HEART: Regular rate and rhythm. 4/6 systolic ejection murmur in the aortic area. ABDOMEN: Soft No tenderness. EXTREMITIES: No pedal edema. No calf tenderness. NEUROLOGICAL: Patient is awake, alert and oriented x3. Assessment: Persistent atrial fibrillation with controlled ventricular rate Acute on chronic systolic heart failure Moderate aortic stenosis and regurgitation PFO Bicytopenia Plan: Continue home cardiac medications Continue Lasix 40 mg every 12 hours IV Monitor I&O, daily weight, electrolytes and renal function Hold JORGE inhibitor until renal function improves, this may be done as an outpatient. This was placed on hold during last hospitalization. Patient will follow-up with Dr. Post regarding aortic valve stenosis and PFO and can be worked up as an outpatient. Patient has an appointment on Saturday. Nurse practitioner note has been reviewed, I agree with documented findings and plan of care. Patient was seen and examined. 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 History of Any Multi-Drug Resistant Organisms: None Reported Past Surgical History: Back Surgery, Heart Catheterization, Hernia Repair, Orthopedic Surgery Additional Past Surgical History / Comment(s): liver ablation done at [facility] for tx of hepatocellular carcinoma,hemorrhoids ,back surgery, cataract, skin cancer, inguinal hernia, abdominal hernia, left shoulder, right wrist, growth removed vocal cord, PAROTID GLAD REMOVED DUE TO CANCER Past Anesthesia/Blood Transfusion Reactions: No Reported Reaction Additional Past Anesthesia/Blood Transfusion Reaction / Comment(s): no hx blood transfusion Past Psychological History: No Psychological Hx Reported Smoking Status: Former smoker Past Alcohol Use History: None Reported Additional Past Alcohol Use History / Comment(s): Smoking on and off for 45 years. Past Drug Use History: None Reported - Past Family History Father Family Medical History: Cancer Medications and Allergies Home Medications Medication Instructions Recorded Confirmed Type amLODIPine [Norvasc] 10 mg PO DAILY 08/06/14 02/15/23 History Colchicine 0.6 mg PO DAILY 08/02/16 02/15/23 History Hydrocodone/Acetaminophen [[place] 1 tab PO QID PRN 08/31/18 02/15/23 History 10-325] Ferrous Sulfate [Iron (65 MG 487.5 mg PO DAILY 12/29/18 02/15/23 History Elemental)] Albuterol Inhaler [Ventolin Hfa 2 puff INHALATION RT-QID PRN 07/29/19 02/15/23 History Inhaler] Omeprazole 20 mg PO BID 05/16/20 02/15/23 History Fluticasone Propion/Salmeterol 1 puff INHALATION RT-BID 06/08/22 02/15/23 Histo ry [Wixela 250-50 Inhub] hydrALAZINE HCL [Apresoline] 100 mg PO TID 06/08/22 02/15/23 History Folic Acid 1 mg PO DAILY 01/14/23 02/15/23 History Tiotropium 2.5 Mcg/Puff [Spiriva 1 puff INHALATION RT-BID 01/14/23 02/15/23 History Respimat 2.5 Mcg] predniSONE 5 mg PO DAILY 01/14/23 02/15/23 History traZODone HCL [Desyrel] 50 mg PO HS 01/14/23 02/15/23 History Cholecalciferol [Vitamin D3 (25 25 mcg PO DAILY 02/11/23 02/15/23 History Mcg = 1000 Iu)] Multivit-Min/FA/Lycopen/Lutein 1 tab PO DAILY 02/11/23 02/15/23 History [Centrum Silver Tablet] Xylitol [Xylimelts] 500 mg MM HS 02/11/23 02/15/23 History Metoprolol Tartrate [Lopressor] 50 mg PO TID #90 tab 02/13/23 02/15/23 Rx Allergies Allergy/AdvReac Type Severity Reaction Status Date / Time No Known Allergies Allergy Verified 02/15/23 17:42 Physical Exam Vitals: Vital Signs Temp Pulse Pulse Resp BP Pulse Ox 02/17/23 08:36 92 02/17/23 08:23 92 02/17/23 07:53 96 17 124/69 92 L 02/17/23 04:00 92 18 128/75 95 02/16/23 20:16 96 02/16/23 20:07 96 02/16/23 20:00 97.7 F 55 L 18 119/76 96 02/16/23 16:00 97.7 F 96 17 149/72 95 02/16/23 12:00 100 17 118/70 98 Intake and Output 02/16/23 02/17/23 02/17/23 22:59 06:59 14:59 Intake Total 240 540 240 Output Total 1250 Balance 240 -710 240 Intake: Oral 240 540 240 Output: Urine 1250 Other: Voiding Method Toilet Toilet Weight 84.4 kg 82.6 kg Results 02/15/23 16:15 02/17/23 06:10 Comprehensive Metabolic Panel 02/17/23 Range/Units 06:10 Sodium 139 (137-145) mmol/L Potassium 3.3 L (3.5-5.1) mmol/L Chloride 100 (98-107) mmol/L Carbon Dioxide 30 (22-30) mmol/L BUN 49 H (9-20) mg/dL Creatinine 1.79 H (0.66-1.25) mg/dL Glucose 97 (74-99) mg/dL Calcium 8.7 (8.4-10.2) mg/dL Current Medications Generic Name Dose Route Start Last Admin Trade Name Freq PRN Reason Stop Dose Admin Hydrocodone Bitart/Acetaminophen 1 each 02/15/23 18:11 02/17/23 07:58 Hydrocodone/Apap 10-325mg 1 Each Tab PO 1 each QID PRN Administration Pain Albuterol Sulfate 2.5 mg 02/15/23 18:11 02/16/23 05:43 Albuterol Nebulized 2.5 Mg/3 Ml INHALATION 2.5 mg RT-QID PRN Administration Shortness Of Breath Amlodipine Besylate 10 mg 02/16/23 09:00 02/17/23 07:58 Amlodipine 10 Mg Tab PO 10 mg DAILY RAFY Administration Ferrous Sulfate 325 mg 02/16/23 09:00 02/17/23 07:58 Ferrous Sulfate 325 Mg Tab PO 325 mg DAILY RAFY Administration Furosemide 40 mg 02/16/23 06:00 02/17/23 06:15 Furosemide 10 Mg/Ml 4 Ml Vial IV 40 mg Q12H RAFY Administration Heparin Sodium (Porcine) 5,000 unit 02/16/23 09:00 02/17/23 07:57 Heparin Sodium,Porcine 5,000 Unit/Ml 1 Ml Vial SQ Not Given Q12HR RAFY Hydralazine HCl 100 mg 02/15/23 22:00 02/17/23 07:58 Hydralazine Hcl 50 Mg Tab PO 100 mg TID RAFY Administration Ipratropium [place] 0.5 mg 02/16/23 08:00 02/17/23 08:22 Ipratropium 0.5 Mg/2.5 Ml Nebu INHALATION 0.5 mg RT-BID RAFY Administration Metoprolol Tartrate 50 mg 02/15/23 22:00 02/17/23 07:58 Metoprolol Tartrate 50 Mg Tab PO 50 mg TID RAFY Administration Miscellaneous Information 1 each 02/17/23 09:15 Potassium Replacement Protocol 1 Each Misc MISCELLANE DAILY PRN Per Protocol Protocol Naloxone HCl 0.2 mg 02/15/23 18:10 Naloxone 0.4 Mg/Ml 1 Ml Vial IV Q2M PRN Opioid Reversal Pantoprazole Sodium 20 mg 02/16/23 07:30 02/17/23 06:15 Pantoprazole 40 Mg Tablet PO 20 mg AC-BID RAFY Administration Potassium Chloride 20 meq 02/17/23 10:00 02/17/23 09:39 Potassium Chloride Er 20 Meq Tab.Er PO 02/17/23 11:01 20 meq Q1HR RAFY Administration Protocol Prednisone 5 mg 02/16/23 09:00 02/17/23 07:58 Prednisone 5 Mg Tab PO 5 mg DAILY RAFY Administration Trazodone HCl 50 mg 02/15/23 23:45 02/16/23 21:01 Trazodone Hcl 50 Mg Tab PO 50 mg HS RAFY Administration Intake and Output 11/11/23 11/12/23 11/12/23 22:59 06:59 14:59 Intake Total 240 540 240 Output Total 1250 Balance 240 -710 240 Intake: Oral 240 540 240 Output: Urine 1250 Other: Voiding Method Toilet Toilet Weight 84.4 kg 82.6 kg 02/15/23 16:15 02/17/23 06:10
[2023-02-17] MEDS: traZODone HCL 50 MG TAB PO SCH (20:13)
[2023-02-18] MEDS: HYDROcodone/APAP 10-325MG 1 EACH TAB PO PRN ×2 (04:27→10:54)
[2023-02-18] MEDS: PANTOPRAZOLE 40 MG TABLET PO SCH (06:23)
[2023-02-18] MEDS: FUROSEMIDE 10 MG/ML 4 ML VIAL IV SCH (06:23)
[2023-02-18] MEDS: IPRATROPIUM 0.5 MG/2.5 ML NEBU INHALATION SCH (07:53)
[2023-02-18] MEDS: hydrALAZINE HCL 50 MG TAB PO SCH (08:26)
[2023-02-18] MEDS: HEPARIN SODIUM,PORCINE 5,000 UNIT/ML 1 ML VIAL SQ SCH (08:26)
[2023-02-18] MEDS: FERROUS SULFATE 325 MG TAB PO SCH (08:26)
[2023-02-18] MEDS: METOPROLOL TARTRATE 50 MG TAB PO SCH (08:26)
[2023-02-18] MEDS: amLODIPine 10 MG TAB PO SCH (08:26)
[2023-02-18] MEDS: predniSONE 5 MG TAB PO SCH (08:27)
[2023-02-18] MEDS ORDERED: FUROSEMIDE 40 MG TAB PO SCH (09:00)
[2023-02-18 10:15] VITALS: TEMP 98.2
--- NOTE | 2023-02-18 11:00 | P.PN ---
Subjective HISTORY OF PRESENT ILLNESS: This is a 73-year-old male patient of Dr. 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 We have been asked to see the patient regarding CHF. Patient was just discharged from the hospital on 02/13 at that time was treated for persistent atrial fibrillation with poorly controlled ventricular rate, acute on chronic systolic heart failure. He states that he developed shortness of breath is coming and going and that he did not receive any Lasix when he was discharged from the hospital. Patient did get started on Lasix IV 40 mg every 12 hours in the emergency center and he states he is urinating quite a bit and feels shortness of breath is improved. He states his lower extremity edema has improved. EKG: Atrial fibrillation with PVCs ventricular rate at 97 bpm Chest x-ray reveals mild scarring or subsegmental atelectasis in the lung bases otherwise no acute process Echocardiogram performed on 02/12/2023 revealed severely impaired left ventricle systolic function with global hypokinesis and EF 30-35%. Glga-px-votycokr mitral, moderate tricuspid regurgitation and moderate pulmonary hypertension. Heavily calcified aortic valve probably bicuspid. Cxqg-gg-owucpeib aortic cuauhtemoc nosis with moderate aortic regurgitation. Patent foramen ovale with left to right shunting. WBC 2.7, hemoglobin 12.6, platelet count 63. INR 1.1. Sodium 139, potassium 3.3, BUN 49 creatinine 1.79 Home cardiac medications: Amlodipine 10 mg daily, hydralazine 100 mg 3 times daily, Lopressor 50 mg 3 times daily. Lexiscan stress test 2017 was negative, probable normal perfusion study with mild fixed defect involving the inferior segment most probably secondary to soft tissue attenuation. Gated images show normal wall motion and thickening. Cardiac catheterization 06/14/2022 revealed 30% stenosis of the LAD, increased left-sided filling pressures, moderate . 02/18/2023 Patient examined this morning at the bedside. Patient currently denies any chest pain or pressure. He denies shortness of breath. He remains on IV Lasix. Vital signs are stable. PHYSICAL EXAM: VITAL SIGNS: Reviewed. GENERAL: Well-developed in no acute distress. NECK: Supple. No JVD or thyromegaly LUNGS: Respirations even and unlabored. Lungs essentially clear to auscultation bilaterally. HEART: Regular rate and rhythm. S1 and S2 heard. Systolic murmur noted EXTREMITIES: Normal range of motion. No clubbing or cyanosis. Peripheral pulses intact. No lower extremity edema ASSESSMENT: Persistent atrial fibrillation with controlled ventricular rate Acute heart failure with reduced EF Moderate aortic stenosis and regurgitation PFO Bicytopenia PLAN: Discontinue IV Lasix Begin oral Lasix 40 mg twice a day Patient is stable for discharge home today from a cardiac standpoint He is to follow up on an outpatient basis with Dr. Post Nurse practitioner note has been reviewed by physician. Signing provider agrees with the documented findings, assessment, and plan of care. Objective - Vital Signs Vital signs: Vital Signs Temp 98.2 F 02/18/23 08:25 Pulse 70 02/18/23 08:25 Resp 18 02/18/23 08:25 BP 129/82 02/18/23 08:25 Pulse Ox 95 02/18/23 08:25 FiO2 Intake & Output 02/17/23 02/18/23 02/18/23 18:59 06:59 18:59 Intake Total 476 Output Total 400 1500 Balance 76 -1500 Weight 82.5 kg Intake: Oral 476 Output: Urine 400 1500 Other: Voiding Method Toilet Toilet Toilet - Labs CBC & Chem 7: 02/15/23 16:15 02/17/23 06:10
[2023-02-18 11:12] LABS: African American GFR (CKD) 36 (>60 ml/min/1.73 sqM); Anion Gap 13 mmol/L; Blood Urea Nitrogen 54 mg/dL (9-20); Calcium 9.1 mg/dL (8.4-10.2); Carbon Dioxide 28 mmol/L (22-30); Chloride 96 mmol/L (98-107); Glucose 98 mg/dL (74-99); Non-African American GFR(CKD) 32 (>60 ml/min/1.73 sqM); Potassium 3.7 mmol/L (3.5-5.1); Sodium 137 mmol/L (137-145)
[2023-02-18] MEDS ORDERED: POTASSIUM CHLORIDE ER 20 MEQ TAB.ER PO ONE (11:30)
[2023-02-18 12:43] VITALS: BP 135/77; PULSE 78; RESP 17
--- NOTE | 2023-02-18 20:14 | P.DS ---
Providers Date of admission: 02/17/23 05:39 Attending physician: Hillary Franks Consults: 02/16/23 13:40 Consult Physician Routine Consulting Provider: Len Mckeon Consult Reason/Comments: chf Do you want consulting provider notified?: Yes Primary care physician: [facility] Course: Diagnoses: Persistent atrial fibrillation with RVR Mild acute on chronic CHF, ejection fraction 30-35% with global hypokinesia. Secondary because of missed Lasix since last discharge Vpxg-vn-qkwvffva aortic stenosis and moderate aortic regurgitation Lightheadedness and dizziness with other symptoms like dyspnea and palpitations mostly secondary to above Acute renal failure on chronic kidney disease, most likely secondary to cardiorenal syndrome Chronic hypoxic respiratory failure due to Acute CHF Hx of COPD with mild acute exacerbation treated with IV steroids PFO Pancytopenia follows outpt with Dr Guy for Hx of thrombocytopenia Chronic kidney disease stage III Hx of hepatitis C Hypertension Hx liver cancer and parotid gland cancer Chronic ongoing nicotine use Alcoholic liver cirrhosis Hospital course: This is a pleasant 73 years old male with past medical history significant for chronic liver disease, alcohol-induced cirrhosis, thrombocytopenia, iron deficiency anemia from bleeding esophageal varices history of hep C, COPD previous history of atrial fibrillation, hyperlipidemia, hepatocellular carcinoma, aortic stenosis, chronic kidney disease stage IIIa Presents because of difficulty breathing 2 weeks associated with palpitation and the distal dizziness and lightheadedness, or slightly getting worse. His symptoms started shortly after discharge from the hospital last time, he did not get his Lasix when he went home, he says that when he takes Lasix he feels better. He was admitted with A. fib and RVR and mild acute CHF, evaluated by electric organ inspector and repairer, he was treated with IV Lasix 40 mg twice daily, His symptoms improved and patient back to baseline. Today patient denies any o ther new symptoms and he feels fine and can go home. The case with the electric organ inspector and repairer who cleared him for discharge home today. Of note patient is not on anticoagulation because of his thrombocytopenia, this was confirmed with out electric organ inspector and repairer. JORGE inhibitor on hold because of his kidney disease area has chronic kidney disease with creatinine 1.7. Patient is eager to go home today. Patient was cleared for discharge by electric organ inspector and repairer. Problems and management plan were discussed with the patient and he verbalized understanding and acceptance Patient was found stable and can be discharged home in guarded prognosis however he needs follow-up as an outpatient. Patient was instructed to follow up with PCP Dr. Canchola within one week and patient agrees Instructed to follow up with his electric organ inspector and repairer Dr. Post in 1 week and he agrees to call and make appointment Physical exam Gen: patient is a AAOx3, no distress CVS: S1-S2, RRR, no murmur Lungs: B/L CTA, no wheezing Abdomen: soft, no distention, no tenderness, positive bowel sounds Extremity: no leg edema or induration Time spent more than 35 minutes Patient Condition at Discharge: Stable Plan - Discharge Summary Discharge Rx Participant: No New Discharge Prescriptions: New Furosemide [Lasix] 40 mg PO BID@0900,1600 #60 tab Continue amLODIPine [Norvasc] 10 mg PO DAILY Colchicine 0.6 mg PO DAILY Ferrous Sulfate [Iron (65 MG Elemental)] 487.5 mg PO DAILY Albuterol Inhaler [Ventolin Hfa Inhaler] 2 puff INHALATION RT-QID PRN PRN Reason: Shortness Of Breath Omeprazole 20 mg PO BID Folic Acid 1 mg PO DAILY traZODone HCL [Desyrel] 50 mg PO HS Cholecalciferol [Vitamin D3 (25 Mcg = 1000 Iu)] 25 mcg PO DAILY Xylitol [Xylimelts] 500 mg MM HS hydrALAZINE HCL [Apresoline] 100 mg PO TID Fluticasone Propion/Salmeterol [[place]ela 250-50 Inhub] 1 puff INHALATION RT-BID predniSONE 5 mg PO DAILY Tiotropium 2.5 Mcg/Puff [Spiriva Respimat 2.5 Mcg] 1 puff INHALATION RT-BID Multivit-Min/FA/Lycopen/Lutein [Centrum Silver Tablet] 1 tab PO DAILY Metoprolol Tartrate [Lopressor] 50 mg PO TID #90 tab Discontinued Hydrocodone/Acetaminophen [[place] 10-325] 1 tab PO QID PRN PRN Reason: Pain Discharge Medication List amLODIPine [Norvasc] 10 mg PO DAILY 08/06/14 [History] Colchicine 0.6 mg PO DAILY 08/02/16 [History] Ferrous Sulfate [Iron (65 MG Elemental)] 487.5 mg PO DAILY 12/29/18 [History] Albuterol Inhaler [Ventolin Hfa Inhaler] 2 puff INHALATION RT-QID PRN 07/29/19 [History] Omeprazole 20 mg PO BID 05/16/20 [History] Fluticasone Propion/Salmeterol [[place]ela 250-50 Inhub] 1 puff INHALATION RT-BID 06/08/22 [History] hydrALAZINE HCL [Apresoline] 100 mg PO TID 06/08/22 [History] Folic Acid 1 mg PO DAILY 01/14/23 [History] Tiotropium 2.5 Mcg/Puff [Spiriva Respimat 2.5 Mcg] 1 puff INHALATION RT-BID 01/14/23 [History] predniSONE 5 mg PO DAILY 01/14/23 [History] traZODone HCL [Desyrel] 50 mg PO HS 01/14/23 [History] Cholecalciferol [Vitamin D3 (25 Mcg = 1000 Iu)] 25 mcg PO DAILY 02/11/23 [History] Multivit-Min/FA/Lycopen/Lutein [Centrum Silver Tablet] 1 tab PO DAILY 02/11/23 [History] Xylitol [Xylimelts] 500 mg MM HS 02/11/23 [History] Metoprolol Tartrate [Lopressor] 50 mg PO TID #90 tab 02/13/23 [Rx] Furosemide [Lasix] 40 mg PO BID@0900,1600 #60 tab 02/18/23 [Rx] Follow up Appointment(s)/Referral(s): Elliott Pots DO [STAFF PHYSICIAN] - 02/25/23 9:30 am Drew Medrano MD [Primary Care Provider] - 1-2 days Patient Instructions/Handouts: Heart Failure (DC) Activity/Diet/Wound Care/Special Instructions: heart healthy diet activity is restricted till you see your doctor Discharge Disposition: HOME SELF-CARE
== END 2023-02-18 13:00 | disposition home or self-care (01) | DRG 291 ==
LOC: EC 15:30 → 4SSUR 18:11 → 3SCARD 20:35 → OBSVTOIN 02-17 05:39
PROVIDERS: ADMIT Hospitalist; ATTEND Hospitalist
DX: I13.0 Hypertensive heart and chronic kidney disease with heart failure and stage 1 through stage 4 chronic kidney disease, or unspecified chronic kidney disease (principal); I50.23 Acute on chronic systolic (congestive) heart failure; D61.818 Other pancytopenia; N17.9 Acute kidney failure, unspecified; I48.19 Other persistent atrial fibrillation; J96.11 Chronic respiratory failure with hypoxia; J44.1 Chronic obstructive pulmonary disease with (acute) exacerbation; Q21.12 Patent foramen ovale; I27.20 Pulmonary hypertension, unspecified; K70.30 Alcoholic cirrhosis of liver without ascites; N18.31 Chronic kidney disease, stage 3a; E78.5 Hyperlipidemia, unspecified; I49.3 Ventricular premature depolarization; I25.10 Atherosclerotic heart disease of native coronary artery without angina pectoris; I08.3 Combined rheumatic disorders of mitral, aortic and tricuspid valves; Z85.818 Personal history of malignant neoplasm of other sites of lip, oral cavity, and pharynx; M54.9 Dorsalgia, unspecified; Z79.51 Long term (current) use of inhaled steroids; Z79.52 Long term (current) use of systemic steroids; Z79.899 Other long term (current) drug therapy; Z87.891 Personal history of nicotine dependence; Z71.6 Tobacco abuse counseling; Z85.05 Personal history of malignant neoplasm of liver; Z85.828 Personal history of other malignant neoplasm of skin; Z86.19 Personal history of other infectious and parasitic diseases; Z92.3 Personal history of irradiation; Z92.21 Personal history of antineoplastic chemotherapy
CPT/HCPCS: 36415; 71046; 80048; 80053; 83735; 83880; 84484; 85025; 85610; 85730; 93005; 94640; 94760; 96374; 99285

== ENCOUNTER 2023-03-07 07:04 | Inpatient (IN) | payer OTHER, MEDICARE ==
--- NOTE | 2023-03-07 07:33 | ED ---
General Adult HPI - General Stated complaint: SOB Time Seen by Provider: 03/07/23 07:09 Source: patient, EMS, RN notes reviewed Mode of arrival: EMS Limitations: no limitations - History of Present Illness Initial comments: 73-year-old male presents emergency from via EMS chief complaint chest pain, shortness of breath. Patient states started overnight. Patient states it's vivek tralized diffuse burning sharp pressure-like pain. Patient states he has significant cardiac history and does have a history of A. fib he is scheduled for cardioversion he is on anticoagulants. Patient states he had recent hospitalization for pneumonia, A. fib, CHF. Patient states she's in between PCPs currently. Patient denies any significant leg swelling states her some mild symptoms. Patient denies any abdominal pain, nausea vomiting he does have slight cough. - Related Data Home Medications Medication Instructions Recorded Confirmed amLODIPine [Norvasc] 10 mg PO DAILY 08/06/14 02/15/23 Colchicine 0.6 mg PO DAILY 08/02/16 02/15/23 Ferrous Sulfate [Iron (65 MG 487.5 mg PO DAILY 12/29/18 02/15/23 Elemental)] Albuterol Inhaler [Ventolin Hfa 2 puff INHALATION RT-QID PRN 07/29/19 02/15/23 Inhaler] Omeprazole 20 mg PO BID 05/16/20 02/15/23 Fluticasone Propion/Salmeterol 1 puff INHALATION RT-BID 06/08/22 02/15/23 [Wixela 250-50 Inhub] hydrALAZINE HCL [Apresoline] 100 mg PO TID 06/08/22 02/15/23 Folic Acid 1 mg PO DAILY 01/14/23 02/15/23 Tiotropium 2.5 Mcg/Puff [Spiriva 1 puff INHALATION RT-BID 01/14/23 02/15/23 Respimat 2.5 Mcg] predniSONE 5 mg PO DAILY 01/14/23 02/15/23 traZODone HCL [Desyrel] 50 mg PO HS 01/14/23 02/15/23 Cholecalciferol [Vitamin D3 (25 25 mcg PO DAILY 02/11/23 02/15/23 Mcg = 1000 Iu)] Multivit-Min/FA/Lycopen/Lutein 1 tab PO DAILY 02/11/23 02/15/23 [Centrum Silver Tablet] Xylitol [Xylimelts] 500 mg MM HS 02/11/23 02/15/23 Previous Rx's Medication Instructions Recorded Metoprolol Tartrate [Lopressor] 50 mg PO TID #90 tab 02/13/23 Furosemide [Lasix] 40 mg PO BID@0900,1600 #60 tab 02/18/23 Allergies Allergy/AdvReac Type Severity Reaction Status Date / Time No Known Allergies Allergy Verified 02/15/23 17:42 Review of Systems ROS Statement: Those systems with pertinent positive or pertinent negative responses have been documented in the HPI. ROS Other: All systems not noted in ROS Statement are negative. 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 History of Any Multi-Drug Resistant Organisms: None Reported Past Surgical History: Back Surgery, Heart Catheterization, Hernia Repair, Orthopedic Surgery Additional Past Surgical History / Comment(s): liver ablation done at [facility] for tx of hepatocellular carcinoma,hemorrhoids ,back surgery, cataract, skin cancer, inguinal hernia, abdominal hernia, left shoulder, right wrist, growth removed vocal cord, PAROTID GLAD REMOVED DUE TO CANCER Past Anesthesia/Blood Transfusion Reactions: No Reported Reaction Additional Past Anesthesia/Blood Transfusion Reaction / Comment(s): no hx blood transfusion Smoking Status: Former smoker - Past Family History Father Family Medical History: Cancer General Exam Limitations: no limitations General appearance: alert, in no apparent distress Head exam: Present: atraumatic, normocephalic, normal inspection Eye exam: Present: normal appearance, PERRL, EOMI. Absent: scleral icterus, conjunctival injection, periorbital swelling Neck exam: Present: normal inspection. Absent: tenderness, meningismus, lymphadenopathy Respiratory exam: Present: normal lung sounds bilaterally. Absent: respiratory distress, wheezes, rales, rhonchi, stridor Cardiovascular Exam: Present: normal rhythm, bradycardia, normal heart sounds. Absent: systolic murmur, diastolic murmur, rubs, gallop, clicks Course Vital Signs 03/07/23 03/07/23 07:14 08:40 Temperature 99.2 F 98.6 F Pulse Rate 56 L 52 L Respiratory 18 18 Rate Blood Pressure 124/56 118/64 O2 Sat by Pulse 93 L 93 L Oximetry EKG Findings - EKG Comments: EKG Findings:: EKG performed at 17:30 size bradycardia rate of 55 IA 187 QRS 1:30 QT/QTC 294/283 - EKG Results: EKG: interpreted by EKATERINA Medical Decision Making - Medical Decision Making Was pt. sent in by a medical professional or institution (, PA, CUBING MACHINE TENDER, urgent care, hospital, or fdc...) When possible be specific @ -No Did you speak to anyone other than the patient for history (EMS, parent, family, police, friend...)? What history was obtained from this source @ -No Did you review nursing and triage notes (agree or disagree)? Why? @ -I reviewed and agree with nursing and triage notes Were old charts reviewed (outside hosp., previous admission, EMS record, old EKG, old radiological studies, urgent care reports/EKG's, fdc records)? Report findings @ -[Reviewed her recent laboratory studies, imaging Differential Diagnosis (chest pain, altered mental status, abdominal pain women, abdominal pain men, vaginal bleeding, weakness, fever, dyspnea, syncope, heada emile, dizziness, GI bleed, back pain, seizure, CVA, palpatations, mental health, musculoskeletal)? @ -nDifferential Chest Pain: Stable Angina, Unstable Angina, STEMI, NSTEMI Aortic Dissection, Pneumothorax, Musculoskeletal, Esophageal Spasm GERD, Cholecystitis, Pancreatitis, Zoster, this is not meant to be an all-inclusive list. able EKG interpreted by me (3pts min.). @ -As above X-rays interpreted by me (1pt min.). @ -Chest x-ray shows chronic changes CT interpreted by me (1pt min.). @ -None done U/S interpreted by me (1pt. min.). @ -None done What testing was considered but not performed or refused? (CT, X-rays, U/S, labs)? Why? @ -None What meds were considered but not given or refused? Why? @ -None Did you discuss the management of the patient with other professionals (professionals i.e. , DALE, CUBING MACHINE TENDER, lab, RT, psych nurse, clinical social worker, coal washer, teacher, bomb squad officer, pillowcase cleaner)? Give summary @ -No Was smoking cessation discussed for >3mins.? @ -No Was critical care preformed (if so, how long)? @ -No Were there social determinants of health that impacted care today? How? (Homelessness, low income, unemployed, alcoholism, drug addiction, transportation, low edu. Level, literacy, decrease access to med. care, skilled nursing, rehab)? @ -No Was there de-escalation of care discussed even if they declined (Discuss DNR or withdrawal of care, Hospice)? DNR status @ -No What co-morbidities impacted this encounter? (DM, HTN, Smoking, COPD, CAD, Cancer, CVA, ARF, Chemo, Hep., AIDS, mental health diagnosis, sleep apnea, morbid obesity)? @ -CAD, CHF Was patient admitted / discharged? Hospital course, mention meds given and route, prescriptions, significant lab abnormalities, going to OR and other pertinent info. @ -Admitted patient presented for chest pain. Patient has mild elevated troponin at 0.05. Patient is anticoagulated currently for atrial fibrillation. Patient does have notable acute kidney injury. Patient will be admitted for cardiology evaluation and further monitoring and treatment at this time. Undiagnosed new problem with uncertain prognosis? @ -No Drug Therapy requiring intensive monitoring for toxicity (Heparin, Nitro, Insulin, Cardizem)? @ -No Were any procedures done? @ -No Diagnosis/symptom? @ -Chest pain, dyspnea, elevated troponin,[place] Acute, or Chronic, or Acute on Chronic? @ -[acute Uncomplicated (without systemic symptoms) or Complicated (systemic symptoms)? @ -complicated Side effects of treatment? @ -No Exacerbation, Progression, or Severe Exacerbation? @ -No Poses a threat to life or bodily function? How? (Chest pain, [place], [place], pneumonia, PE, COPD, DKA, ARF, appy, cholecystitis, CVA, Diverticulitis, Homicidal, Suicidal, threat to staff... and all critical care pts) @ -yes ACS - Lab Data Result diagrams: 03/07/23 07:03/07/23 07: Lab Results 03/07/23 03/07/23 03/07/23 Range/Units 07: 07: 07: WBC 2.8 L (3.8-10.6) k/uL RBC 4.24 L (4.30-5.90) m/uL Hgb 12.3 L (13.0-17.5) gm/dL Hct 36.0 L (39.0-53.0) % MCV 84.8 (80.0-100.0) fL MCH 29.1 (25.0-35.0) pg MCHC 34.3 (31.0-37.0) g/dL RDW 16.7 H (11.5-15.5) % Plt Count 65 L (150-450) k/uL MPV 10.9 Neutrophils % 88 % Lymphocytes % 7 % Monocytes % 3 % Eosinophils % 1 % Basophils % 0 % Neutrophils # 2.5 (1.3-7.7) k/uL Lymphocytes # 0.2 L (1.0-4.8) k/uL Monocytes # 0.1 (0-1.0) k/uL Eosinophils # 0.0 (0-0.7) k/uL Basophils # 0.0 (0-0.2) k/uL Manual Slide Review Performed Anisocytosis Slight PT 13.2 H (10.0-12.5) sec INR 1.3 H (<1.2) APTT 35.6 H (22.0-30.0) sec Sodium 137 (137-145) mmol/L Potassium 3.1 L (3.5-5.1) mmol/L Chloride 101 (98-107) mmol/L Carbon Dioxide 24 (22-30) mmol/L Anion Gap 12 mmol/L BUN 62 H (9-20) mg/dL Creatinine 2.38 H (0.66-1.25) mg/dL Est GFR (CKD-EPI)AfAm 30 (>60 ml/min/1.73 sqM) Est GFR (CKD-EPI)NonAf 26 (>60 ml/min/1.73 sqM) Glucose 108 H (74-99) mg/dL Calcium 8.6 (8.4-10.2) mg/dL Magnesium 1.7 (1.6-2.3) mg/dL Total Bilirubin 1.3 (0.2-1.3) mg/dL AST 37 (17-59) U/L ALT 31 (4-49) U/L Alkaline Phosphatase 74 (38-126) U/L Troponin I (0.000-0.034) ng/mL NT-Pro-B Natriuret Pep 7880 pg/mL Total Protein 6.4 (6.3-8.2) g/dL Albumin 3.6 (3.5-5.0) g/dL Influenza Type A (PCR) (Not Detectd) Influenza Type B (PCR) (Not Detectd) RSV (PCR) (Not Detectd) SARS-CoV-2 (PCR) (Not Detectd) 03/07/23 03/07/23 Range/Units 07:23 07:33 WBC (3.8-10.6) k/uL RBC (4.30-5.90) m/uL Hgb (13.0-17.5) gm/dL Hct (39.0-53.0) % MCV (80.0-100.0) fL MCH (25.0-35.0) pg MCHC (31.0-37.0) g/dL RDW (11.5-15.5) % Plt Count (150-450) k/uL MPV Neutrophils % % Lymphocytes % % Monocytes % % Eosinophils % % Basophils % % Neutrophils # (1.3-7.7) k/uL Lymphocytes # (1.0-4.8) k/uL Monocytes # (0-1.0) k/uL Eosinophils # (0-0.7) k/uL Basophils # (0-0.2) k/uL Manual Slide Review Anisocytosis PT (10.0-12.5) sec INR (<1.2) APTT (22.0-30.0) sec Sodium (137-145) mmol/L Potassium (3.5-5.1) mmol/L Chloride (98-107) mmol/L Carbon Dioxide (22-30) mmol/L Anion Gap mmol/L BUN (9-20) mg/dL Creatinine (0.66-1.25) mg/dL Est GFR (CKD-EPI)AfAm (>60 ml/min/1.73 sqM) Est GFR (CKD-EPI)NonAf (>60 ml/min/1.73 sqM) Glucose (74-99) mg/dL Calcium (8.4-10.2) mg/dL Magnesium (1.6-2.3) mg/dL Total Bilirubin (0.2-1.3) mg/dL AST (17-59) U/L ALT (4-49) U/L Alkaline Phosphatase (38-126) U/L Troponin I 0.059 H* (0.000-0.034) ng/mL NT-Pro-B Natriuret Pep pg/mL Total Protein (6.3-8.2) g/dL Albumin (3.5-5.0) g/dL Influenza Type A (PCR) Not Detected (Not Detectd) Influenza Type B (PCR) Not Detected (Not Detectd) RSV (PCR) Not Detected (Not Detectd) SARS-CoV-2 (PCR) Not Detected (Not Detectd) Disposition Clinical Impression: Acute kidney injury, Chest pain, Elevated troponin, Dyspnea Disposition: ADMITTED IP TO THIS HOSP Referrals: None,Stated [Primary Care Provider] - 1-2 days Time of Disposition: 09:01
[2023-03-07 07:41] LABS: Anisocytosis Slight; Basophils % (A) 0 %; Eosinophils % (A) 1 %; HGB 12.3 gm/dL (13.0-17.5); Lymphocytes # (A) 0.2 k/uL (1.0-4.8); Lymphocytes % (A) 7 %; MCH 29.1 pg (25.0-35.0); MCHC 34.3 g/dL (31.0-37.0); MCV 84.8 fL (80.0-100.0); Mean Platelet Volume 10.9; Monocytes # (A) 0.1 k/uL (0-1.0); Monocytes % (A) 3 %; Neutrophils # (A) 2.5 k/uL (1.3-7.7); Neutrophils % (A) 88 %; RBC 4.24 m/uL (4.30-5.90); RDW 16.7 % (11.5-15.5); WBC 2.8 k/uL (3.8-10.6)
[2023-03-07 07:44] LABS: INR 1.3 (<1.2); Partial Thromboplastin Time 35.6 sec (22.0-30.0); Prothrombin Time 13.2 sec (10.0-12.5)
[2023-03-07 07:48] LABS: Platelet Count 65 k/uL (150-450)
[2023-03-07 08:10] LABS: ALT 31 U/L (4-49); AST 37 U/L (17-59); African American GFR (CKD) 30 (>60 ml/min/1.73 sqM); Albumin 3.6 g/dL (3.5-5.0); Alkaline Phosphatase 74 U/L (38-126); Anion Gap 12 mmol/L; Blood Urea Nitrogen 62 mg/dL (9-20); Calcium 8.6 mg/dL (8.4-10.2); Carbon Dioxide 24 mmol/L (22-30); Chloride 101 mmol/L (98-107); Glucose 108 mg/dL (74-99); Magnesium 1.7 mg/dL (1.6-2.3); Non-African American GFR(CKD) 26 (>60 ml/min/1.73 sqM); Potassium 3.1 mmol/L (3.5-5.1); Sodium 137 mmol/L (137-145); Total Bilirubin 1.3 mg/dL (0.2-1.3); Total Protein 6.4 g/dL (6.3-8.2)
--- NOTE | 2023-03-07 08:17 | XR ---
EXAMINATION TYPE: XR chest 2V DATE OF EXAM: 03/07/2023 COMPARISON: 02/15/2023 HISTORY: Shortness of breath TECHNIQUE: Frontal and lateral views of the chest are obtained. FINDINGS: Scattered senescent parenchymal changes noted. Hyperinflation compatible with COPD. Patchy basilar infiltrates left greater than right suspicious for pneumonia. Correlate clinically and progress studies recommended. Heart size is stable. Mediastinal structures are stable and grossly unremarkable. No evidence for hilar prominence. Degenerative changes dorsal spine. IMPRESSION: 1. Patchy basilar infiltrates left greater than right suspicious for pneumonia. Correlate clinically and progress studies recommended.
[2023-03-07 08:18] LABS: NT-Pro-B-Type Natriuretic Pept 7880 pg/mL
[2023-03-07] MEDS ORDERED: POTASSIUM CHLORIDE ER 20 MEQ TAB.ER PO STA (08:28)
[2023-03-07] MEDS ORDERED: ASPIRIN 81 MG PO STA (09:30)
[2023-03-07] MEDS ORDERED: NITROGLYCERIN SL TABS 0.4 MG TAB SUBLINGUAL PRN (09:30)
[2023-03-07] MEDS ORDERED: Magnesium Replacement Protocol 1 EACH MISC MISCELLANE PRN (12:58)
[2023-03-07] MEDS ORDERED: Potassium Replacement Protocol 1 EACH MISC MISCELLANE PRN (12:58)
[2023-03-07] MEDS ORDERED: IPRATROPIUM-ALBUTEROL 3 ML NEB INHALATION PRN (13:01)
[2023-03-07] MEDS ORDERED: DEXTROSE 50% SYRINGE 50 ML IVP PRN ×2 (13:05)
[2023-03-07] MEDS ORDERED: METOPROLOL TARTRATE 25 MG TAB PO SCH (13:15)
[2023-03-07] MEDS: methylPREDNISolone SOD SUCCI 125 MG/2 ML VIAL IV SCH ×3 (13:54→23:30)
[2023-03-07] MEDS: hydrALAZINE HCL 50 MG TAB PO SCH ×3 (15:10→19:55)
[2023-03-07] MEDS: FOLIC ACID 1 MG TAB PO SCH (15:11)
[2023-03-07] MEDS: IPRATROPIUM-ALBUTEROL 3 ML NEB INHALATION SCH ×2 (15:35→21:14)
--- NOTE | 2023-03-07 15:57 | P.CNPUL ---
History of Present Illness Consult date: 03/07/23 Requesting physician: Hillary Franks Reason for consult: dyspnea, COPD, abnormal CXR/CT Chief complaint: Shortness of breath, cough, congestion History of present illness: This is a very pleasant 73-year-old male patient with a history of moderate chronic obstructive pulmonary disease with FEV1 Of 59% of predicted, maintained on prednisone 5 mg daily, paroxysmal atrial fibrillation not a candidate for anticoagulation, chronic kidney disease, stage III, cirrhosis of the liver, hepatocellular carcinoma resected, hypertension, chronic anemia, chronic systolic congestive heart failure with an ejection fraction of 30%. He was recently hospitalized for multifocal pneumonia involving the left lung. Follow- up computed tomography scan on 01/29/2023 revealed significant clearing. No concerns for malignancy. He presented here to the emergency room earlier this morning with a one-day history of chest pain, shortness of breath, nausea, fever, fatigue. S2 x-ray reveals patchy by basilar infiltrates left greater than right. EKG reveals sinus bradycardia. White count 2.8. Hemoglobin 12.3. Platelets 65,000. Sodium 137. Potassium 3.1. Bicarb 24. BUN 62. Creatinine 2.38. Glucose 108. Troponin 0.059, 0.055, 0.053, proBNP 7880. Viral screen negative. He is seen today in consultation in the emergency department. Currently sitting up in a chair. Awake and alert in no acute distress. Maintaining good O2 saturations in the 90s on 2 L/m per nasal cannula. He's been initiated on DuoNeb inhalations, Symbicort, Solu-Medrol. Antibiotics in the form of ceftriaxone. He is anticoagulated with Eliquis. On oral diuretics. Review of Systems REVIEW OF SYSTEMS: CONSTITUTIONAL: Positive for generalized weakness, fever. Denies any recent significant weight loss or weight gain. EYES: Denies change in vision. EARS, NOSE, MOUTH, THROAT: Denies headaches, denies sore throat. CARDIOVASCULAR: Denies chest pain, palpitations or syncopal episodes. RESPIRATORY: Positive for shortness of breath, cough, congestion no hemoptysis. GASTROINTESTINAL: Positive for nausea GENITOURINARY: Denies hematuria, denies infections. MUSKULOSKELETAL: Denies pain, denies swelling. INTEGUMENTARY: Denies rash, denies eczema. NEUROLOGICAL: Denies recent memory loss, no recent seizure activity. PSYCHIATRIC: Denies anxiety, denies depression. HEMATOLOGIC/LYMPHATIC: Denies anemia, denies enlarged lymph nodes. 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 History of Any Multi-Drug Resistant Organisms: None Reported Past Surgical History: Back Surgery, Heart Catheterization, Hernia Repair, Orthopedic Surgery Additional Past Surgical History / Comment(s): liver ablation done at [place] for tx of hepatocellular carcinoma,hemorrhoids ,back surgery, cataract, skin cancer, inguinal hernia, abdominal hernia, left shoulder, right wrist, growth removed vocal cord, PAROTID GLAD REMOVED DUE TO CANCER Past Anesthesia/Blood Transfusion Reactions: No Reported Reaction Additional Past Anesthesia/Blood Transfusion Reaction / Comment(s): no hx blood transfusion Smoking Status: Former smoker - Past Family History Father Family Medical History: Cancer Medications and Allergies Home Medications Medication Instructions Recorded Confirmed Type amLODIPine [Norvasc] 10 mg PO DAILY 08/06/14 03/07/23 History Colchicine 0.6 mg PO DAILY 08/02/16 03/07/23 History Ferrous Sulfate [Iron (65 MG 325 mg PO DAILY 12/29/18 03/07/23 History Elemental)] Albuterol Inhaler [Ventolin Hfa 2 puff INHALATION RT-QID PRN 07/29/19 03/07/23 History Inhaler] Omeprazole 20 mg PO BID 05/16/20 03/07/23 History Fluticasone Propion/Salmeterol 1 puff INHALATION RT-BID 06/08/22 03/07/23 History [Wixela 250-50 Inhub] hydrALAZINE HCL [Apresoline] 100 mg PO TID 06/08/22 03/07/23 History Folic Acid 1 mg PO DAILY 01/14/23 03/07/23 History Tiotropium 2.5 Mcg/Puff [Spiriva 1 puff INHALATION RT-BID 01/14/23 03/07/23 History Respimat 2.5 Mcg] predniSONE 5 mg PO DAILY 01/14/23 03/07/23 History traZODone HCL [Desyrel] 50 mg PO HS 01/14/23 03/07/23 History Cholecalciferol [Vitamin D3 (25 25 mcg PO DAILY 02/11/23 03/07/23 History Mcg = 1000 Iu)] Multivit-Min/FA/Lycopen/Lutein 1 tab PO DAILY 02/11/23 03/07/23 History [Centrum Silver Tablet] Xylitol [Xylimelts] 500 mg MM HS 02/11/23 03/07/23 History Furosemide [Lasix] 40 mg PO BID@0900,1600 #60 tab 02/18/23 03/07/23 Rx Amiodarone [Cordarone] See Taper PO DAILY 03/07/23 03/07/23 History Apixaban [Eliquis] 5 mg PO BID 03/07/23 03/07/23 History Metoprolol Tartrate [Lopressor] 25 mg PO DIRECTED 03/07/23 03/07/23 History Allergies Allergy/AdvReac Type Severity Reaction Status Date / Time No Known Allergies Allergy Verified 03/07/23 10:52 Physical Exam Vitals: Vital Signs Temp Pulse Resp BP Pulse Ox 03/07/23 15:35 57 L 16 95 03/07/23 15:09 46 L 18 128/56 03/07/23 13:32 98.2 F 78 18 121/78 96 03/07/23 11:03 55 L 17 149/55 93 L 03/07/23 10:02 49 L 19 124/68 93 L 03/07/23 08:40 98.6 F 52 L 18 118/64 93 L 03/07/23 07:14 99.2 F 56 L 18 124/56 93 L Intake and Output 03/07/23 03/07/23 03/07/23 06:59 14:59 22:59 Other: Weight 81.647 kg GENERAL EXAM: Alert, pleasant 73-year-old male patient, up in a chair, on 2 L nasal cannula, fairly, comfortable in no apparent distress. HEAD: Normocephalic. EYES: Normal reaction of pupils, equal size. NOSE: Clear with pink turbinates. THROAT: No erythema or exudates. NECK: No masses, no JVD. CHEST: No chest wall deformity. LUNGS: Equal air entry with bilateral scattered rhonchi. CVS: S1 and S2 normal with no audible murmur, regular rhythm. ABDOMEN: No hepatosplenomegaly, normal bowel sounds, no guarding or rigidity. SPINE: No scoliosis or deformity SKIN: No rashes CENTRAL NERVOUS SYSTEM: No focal deficits, tone is normal in all 4 extremities. EXTREMITIES: There is no peripheral edema. No clubbing, no cyanosis. Peripheral pulses are intact. Results - Laboratory Findings CBC and BMP: 03/07/23 07:23 03/07/23 07:23 PT/INR, D-dimer PT 13.2 sec (10.0-12.5) H 03/07/23 07:23 INR 1.3 (<1.2) H 03/07/23 07:23 Abnormal lab findings: Abnormal Labs 03/07/23 03/07/23 03/07/23 07:23 07:23 07:23 WBC 2.8 L RBC 4.24 L Hgb 12.3 L Hct 36.0 L RDW 16.7 H Plt Count 65 L Lymphocytes # 0.2 L PT 13.2 H INR 1.3 H APTT 35.6 H Potassium 3.1 L BUN 62 H Creatinine 2.38 H Glucose 108 H Troponin I 03/07/23 03/07/23 03/07/23 07:23 10:00 13:12 WBC RBC Hgb Hct RDW Plt Count Lymphocytes # PT INR APTT Potassium BUN Creatinine Glucose Troponin I 0.059 H* 0.055 H* 0.053 H* - Diagnostic Findings Chest x-ray: image reviewed Assessment and Plan Assessment: Acute hypoxemic respiratory failure secondary to suspected bilateral pneumonia. Procalcitonin pending. Currently on ceftriaxone Acute exacerbation of systolic congestive heart failure in a patient with a k nown history of impaired left ventricular systolic function with an ejection fraction of 35% Acute exacerbation of severe steroid dependent chronic obstructive pulmonary disease secondary to above FEV1 value of 59% of predicted Recent admission for CHF exacerbation Atrial fibrillation with rapid ventricular response, on Eliquis History of pancytopenia History of moderate to severe aortic stenosis Chronic tobacco dependency Hyperlipidemia Hypertension History of hepatocellular carcinoma status post ablation History of parotid gland cancer status post resection Plan: The patient was seen and evaluated Chest x-ray, labs EKG medications reviewed Continue ceftriaxone Check a pro-calcitonin Continue diuretics Continue bronchodilators and steroids Titrate the FiO2 as tolerated We will continue to follow and make further recommendations based on his clinical status I have personally seen and examined the patient, performed the documentation and the assessment and plan as written. Number of minutes spent on the visit: 20.
[2023-03-07] MEDS: FUROSEMIDE 40 MG TAB PO SCH (16:25)
[2023-03-07] MEDS: HYDROcodone/APAP 5-325MG 1 EACH TAB PO PRN (16:26)
[2023-03-07 16:48] LABS: Glucose,Whole Blood 149 mg/dL (70-110)
[2023-03-07] MEDS: PANTOPRAZOLE 40 MG TABLET PO SCH (18:23)
[2023-03-07] MEDS: INSULIN ASPART (NovoLOG) 100 UNIT/ML VIAL SQ SCH ×2 (18:24→21:06)
[2023-03-07] MEDS: METOPROLOL TARTRATE 25 MG TAB PO SCH (19:55)
[2023-03-07] MEDS: APIXABAN 5 MG TAB PO SCH (19:55)
[2023-03-07] MEDS: traZODone HCL 50 MG TAB PO SCH (19:56)
[2023-03-07] MEDS: DRY MOUTH SPRAY 44.3 SPRAY/44.3 ML SPRAY MUCOUS MEM SCH (19:56)
[2023-03-07] MEDS ORDERED: BUDESONIDE 1 MG/2 ML NEBU INHALATION SCH (20:00)
[2023-03-07 20:08] LABS: Glucose,Whole Blood 198 mg/dL (70-110)
--- NOTE | 2023-03-07 20:52 | HP ---
HISTORY AND PHYSICAL CHIEF COMPLAINT: Shortness of breath and chest pain. HISTORY OF PRESENT ILLNESS: This is a 73-year-old gentleman with a past medical history of multiple medical problems, recently admitted with persistent atrial fibrillation and mild CHF. The patient is currently complaining of shortness of breath which is progressing, sharp burning type of pain in the chest, and pressure in the anterior part of the chest. The patient came to [facility], found to have bilateral pneumonia, left more than right, admitted for further evaluation and treatment. There is no history of any fever, rigor, or chills. PAST MEDICAL HISTORY: Reviewed includes COPD, hypertension, and history of liver disease. Rest of the history and rest of the chart are also reviewed. HOME MEDICATIONS: Reviewed include Xylitol. Doses and rest of the medications are reviewed. ALLERGIES: None. FAMILY HISTORY: History of cancer in the family. SOCIAL HISTORY: Previous history of smoking. REVIEW OF SYSTEMS: Fourteen-point review is negative except as mentioned earlier. PHYSICAL EXAMINATION: VITAL SIGNS: Pulse is 55, blood pressure 149/55, respirations 17. HEENT: Conjunctivae are normal. NECK: No jugular venous distention. CARDIOVASCULAR: S1 and S2 muffled. RESPIRATORY: Bilateral scattered rhonchi and crackles. Breath sounds diminished at the bases. ABDOMEN: Soft and nontender. LEGS: No edema. NERVOUS SYSTEM: No focal deficits. SKIN: No ulcers or rashes. JOINTS: No active deforming arthropathy. LABORATORY DATA: WBC 2.8, hemoglobin is 12.3. Rest of the labs are noted. ASSESSMENT: 1. Shortness of breath, possible chronic obstructive pulmonary disease acute exacerbation. 2. Acute bilateral pneumonia, left more than right, possibly gram-negative. 3. Chronic kidney disease, stage 3. 4. Troponin 0.055, indeterminate. Rule out acute [id number]-elevation myocardial infarction. 5. Mild pancytopenia. 6. History of congestive heart failure. 7. Hypertension. 8. Hyperlipidemia. 9. History of chronic hepatitis C, hepatocellular carcinoma, and chronic liver disease history. 10.Multiple complex medical issues. RECOMMENDATIONS AND DISCUSSION: In this 73-year-old gentleman presented with multiple complex medical issues, we will monitor the patient closely. I would recommend Pulmonary consultation and aggressive bronchodilator treatment, steroids, and also empiric antibiotics. Infectious Disease evaluation. Cardiology consultation. Overall prognosis is guarded because of multiple complex medical issues. Home medications will be continued after confirmation. See orders for the details. Further recommendations to follow. MMODL / IJN: [id number] /
[2023-03-07] MEDS ORDERED: NON FORMULARY DRUG (Omeprazole [Omeprazole] 20 MG Capsule.Dr) PO SCH (21:00)
[2023-03-07] MEDS: SYMBICORT 80-4.5 MCG INHALER INHALATION SCH (21:14)
[2023-03-08] MEDS: methylPREDNISolone SOD SUCCI 125 MG/2 ML VIAL IV SCH ×4 (05:18→23:52)
[2023-03-08] MEDS: PANTOPRAZOLE 40 MG TABLET PO SCH (05:19)
[2023-03-08 06:32] LABS: Glucose,Whole Blood 160 mg/dL (70-110)
[2023-03-08] MEDS: INSULIN ASPART (NovoLOG) 100 UNIT/ML VIAL SQ SCH ×4 (06:38→21:34)
[2023-03-08] MEDS: HYDROcodone/APAP 5-325MG 1 EACH TAB PO PRN ×3 (06:39→17:35)
[2023-03-08] MEDS: IPRATROPIUM-ALBUTEROL 3 ML NEB INHALATION SCH ×4 (08:46→20:31)
[2023-03-08] MEDS: SYMBICORT 80-4.5 MCG INHALER INHALATION SCH ×2 (08:46→20:31)
[2023-03-08] MEDS: hydrALAZINE HCL 50 MG TAB PO SCH ×3 (08:48→21:33)
[2023-03-08] MEDS: MULTIVITAMINS, THERA 1 EACH TAB PO SCH (08:49)
[2023-03-08] MEDS: FUROSEMIDE 40 MG TAB PO SCH ×2 (08:49→16:38)
[2023-03-08] MEDS: AMIODARONE 200 MG TAB PO SCH (08:49)
[2023-03-08] MEDS: amLODIPine 10 MG TAB PO SCH (08:49)
[2023-03-08] MEDS: CHOLECALCIFEROL 25 MCG (1000 IU) TABLET PO SCH (08:49)
[2023-03-08] MEDS: FERROUS SULFATE 325 MG TAB PO SCH (08:49)
[2023-03-08] MEDS: METOPROLOL TARTRATE 25 MG TAB PO SCH (08:49)
[2023-03-08] MEDS: FOLIC ACID 1 MG TAB PO SCH (08:49)
[2023-03-08] MEDS: APIXABAN 5 MG TAB PO SCH ×2 (08:49→21:33)
[2023-03-08] MEDS ORDERED: ASPIRIN 325 MG TAB PO SCH (09:00)
--- NOTE | 2023-03-08 09:14 | P.CONS ---
History of Present Illness - Reason for Consult Consult date: 03/07/23 pneumonia Requesting physician: Hillary Franks - Chief Complaint chest pain and shortness of breath x 1 day - History of Present Illness Patient is a 73-year-old male with a past medical history significant for hypertension hyperlipidemia COPD history of chronic hepatitis C hepatocellular carcinoma patient presenting to the hospital for evaluation of chest pain and shortness of breath patient's symptoms started overnight and has been complaining of diffuse and burning type of pressure patient also have a cough which is mild to moderate intensity not bringing up any sputum patient denies having any nausea no vomiting no abdominal pain or any diarrhea on prese ntation to the hospital the patient did have a low-grade fever of 99.2 F patient was nontachycardic hypertensive mild hypoxemia with O2 sats of 93% on room air patient did have a white count of 2.8 creatinine was 2.38 troponin is elevated patient did have a chest x-ray patchy basilar infiltrate left greater than right suspicious for pneumonia patient was started on ceftriaxone infectious disease was consulted for further management of antibiotic therapy Review of Systems Positive point and negatives has been mentioned in the HPI, complete review of systems was performed and all other systems are negative 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 History of Any Multi-Drug Resistant Organisms: None Reported Past Surgical History: Back Surgery, Heart Catheterization, Hernia Repair, Orthopedic Surgery Additional Past Surgical History / Comment(s): liver ablation done at [facility] for tx of hepatocellular carcinoma,hemorrhoids ,back surgery, cataract, skin cancer, inguinal hernia, abdominal hernia, left shoulder, right wrist, growth removed vocal cord, PAROTID GLAD REMOVED DUE TO CANCER Past Anesthesia/Blood Transfusion Reactions: No Reported Reaction Additional Past Anesthesia/Blood Transfusion Reaction / Comm: no hx blood transfusion Smoking Status: Former smoker - Past Family History Father Family Medical History: Cancer Medications and Allergies Home Medications Medication Instructions Recorded Confirmed Type amLODIPine [Norvasc] 10 mg PO DAILY 08/06/14 03/15/23 History Colchicine 0.6 mg PO DAILY 08/02/16 03/15/23 History Ferrous Sulfate [Iron (65 MG 325 mg PO DAILY 12/29/18 03/15/23 History Elemental)] Omeprazole 20 mg PO BID 05/16/20 03/13/23 History Fluticasone Propion/Salmeterol 1 puff INHALATION RT-BID 06/08/22 03/15/23 History [Wixela 250-50 Inhub] hydrALAZINE HCL [Apresoline] 100 mg PO TID 06/08/22 03/13/23 History Folic Acid 1 mg PO DAILY 01/14/23 03/15/23 History Tiotropium 2.5 Mcg/Puff [Spiriva 1 puff INHALATION RT-BID 01/14/23 03/13/23 History Respimat 2.5 Mcg] predniSONE 5 mg PO DAILY 01/14/23 03/15/23 History traZODone HCL [Desyrel] 50 mg PO HS 01/14/23 03/15/23 History Cholecalciferol [Vitamin D3 (25 25 mcg PO DAILY 02/11/23 03/15/23 History Mcg = 1000 Iu)] Multivit-Min/FA/Lycopen/Lutein 1 tab PO DAILY 02/11/23 03/13/23 History [Centrum Silver Tablet] Xylitol [Xylimelts] 500 mg MM HS 02/11/23 03/15/23 History Furosemide [Lasix] 40 mg PO BID@0900,1600 #60 tab 02/18/23 03/15/23 Rx Amiodarone [Cordarone] See Taper PO DAILY 03/07/23 03/15/23 History Apixaban [Eliquis] 5 mg PO BID 03/07/23 03/15/23 History Budesonide-Formot 160-4.5 Mcg 2 puff INHALATION RT-BID #1 each 03/10/23 03/15/23 Rx [Symbicort 160-4.5 Mcg Inhaler] Ipratropium-Albuterol Nebulize 3 ml INHALATION RT-QID #120 each 03/10/23 03/15/23 Rx [Duoneb 0.5 mg-3 mg/3 ml Soln] Isosorbide Mononitrate ER [Imdur] 30 mg PO DAILY #30 tab 03/10/23 03/15/23 Rx cefUROXime axetiL [Ceftin] 500 mg PO BID 3 Days #6 tab 03/10/23 03/15/23 Rx predniSONE 10 mg PO DIRECTED #30 tab 03/10/23 03/13/23 Rx Allergies Allergy/AdvReac Type Severity Reaction Status Date / Time No Known Allergies Allergy Verified 03/13/23 11:45 Physical Exam Vitals: Vital Signs Temp Pulse Resp BP Pulse Ox 03/07/23 11:03 55 L 17 149/55 93 L 03/07/23 10:02 49 L 19 124/68 93 L 03/07/23 08:40 98.6 F 52 L 18 118/64 93 L 03/07/23 07:14 99.2 F 56 L 18 124/56 93 L Intake and Output 03/06/23 03/07/23 03/07/23 22:59 06:59 14:59 Other: Weight 81.647 kg GENERAL DESCRIPTION: elderly male lying in bed, no distress. No tachypnea or acc essory muscle of respiration use. HEENT: Shows Pallor , no scleral icterus. Oral mucous membrane is dry. NECK: Trachea central, no thyromegaly. LUNGS: Unlabored breathing. decreased breath sounds at base, No wheeze or crackle. HEART: S1, S2, regular rate and rhythm. ABDOMEN: Soft, no tenderness , guarding or rigidity EXTREMITIES: No edema of feet. SKIN: No rash, no masses palpable. NEUROLOGICAL: The patient is awake, alert, oriented x3, mood and affect normal. Results CBC & Chem 7: 03/10/23 10:31 03/10/23 10:31 Labs: Abnormal Lab Results - Last 24 Hours (Table) 03/07/23 03/07/23 03/07/23 Range/Units 07:23 07:23 07:23 WBC 2.8 L (3.8-10.6) k/uL RBC 4.24 L (4.30-5.90) m/uL Hgb 12.3 L (13.0-17.5) gm/dL Hct 36.0 L (39.0-53.0) % RDW 16.7 H (11.5-15.5) % Plt Count 65 L (150-450) k/uL Lymphocytes # 0.2 L (1.0-4.8) k/uL PT 13.2 H (10.0-12.5) sec INR 1.3 H (<1.2) APTT 35.6 H (22.0-30.0) sec Potassium 3.1 L (3.5-5.1) mmol/L BUN 62 H (9-20) mg/dL Creatinine 2.38 H (0.66-1.25) mg/dL Glucose 108 H (74-99) mg/dL Troponin I (0.000-0.034) ng/mL 03/07/23 03/07/23 Range/Units 07:23 10:00 WBC (3.8-10.6) k/uL RBC (4.30-5.90) m/uL Hgb (13.0-17.5) gm/dL Hct (39.0-53.0) % RDW (11.5-15.5) % Plt Count (150-450) k/uL Lymphocytes # (1.0-4.8) k/uL PT (10.0-12.5) sec INR (<1.2) APTT (22.0-30.0) sec Potassium (3.5-5.1) mmol/L BUN (9-20) mg/dL Creatinine (0.66-1.25) mg/dL Glucose (74-99) mg/dL Troponin I 0.059 H* 0.055 H* (0.000-0.034) ng/mL Assessment and Plan (1) Pneumonia Status: Acute Code(s): J18.9 - PNEUMONIA, UNSPECIFIED ORGANISM SNOMED Code(s): 001295780 Plan: 1patient was in the hospital with a increasing shortness of breath Along with chest pain which is likely multifactorial in this patient with likely COPD exacerbation tracheobronchitis and complaint of pneumonia on the basis chest x- ray finding likely community-acquired 2-we will try to obtain sputum for Gram stain culture check a CRP and a procalcitonin level 3-patient to continue Rocephin 1 g daily while waiting for the culture to finalize We will follow on clinical condition and cultures to further adjust medication if needed Thank you for this consultation we will follow the patient along with you Dictation was produced using [employer] dictation software. please excuse any grammatical, word or spelling errors. Time with Patient: Greater than 30
[2023-03-08] MEDS: ISOSORBIDE MONONITRATE ER 30 MG TAB.ER.24H PO SCH (09:27)
[2023-03-08 10:08] LABS: African American GFR (CKD) 30 (>60 ml/min/1.73 sqM); Anion Gap 13 mmol/L; Blood Urea Nitrogen 66 mg/dL (9-20); Carbon Dioxide 25 mmol/L (22-30); Chloride 100 mmol/L (98-107); Glucose 200 mg/dL (74-99); Magnesium 1.9 mg/dL (1.6-2.3); Non-African American GFR(CKD) 26 (>60 ml/min/1.73 sqM); Sodium 138 mmol/L (137-145)
[2023-03-08 10:16] LABS: Anisocytosis Slight; Basophils % (A) 0 %; Eosinophils % (A) 0 %; HCT 34.2 % (39.0-53.0); HGB 11.3 gm/dL (13.0-17.5); Lymphocytes # (A) 0.2 k/uL (1.0-4.8); Lymphocytes % (A) 12 %; MCHC 33.1 g/dL (31.0-37.0); MCV 87.6 fL (80.0-100.0); Mean Platelet Volume 10.6; Monocytes % (A) 2 %; Neutrophils # (A) 1.6 k/uL (1.3-7.7); Neutrophils % (A) 86 %; RDW 16.8 % (11.5-15.5); WBC 1.9 k/uL (3.8-10.6)
[2023-03-08 10:19] LABS: Platelet Count 53 k/uL (150-450)
[2023-03-08 11:32] LABS: Glucose,Whole Blood 190 mg/dL (70-110)
[2023-03-08] MEDS: COLCHICINE 0.6 MG EACH PO SCH (12:14)
--- NOTE | 2023-03-08 13:16 | P.CRDCN ---
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 Patient follows in the office with Dr. Post. We have been asked to see the patient in consultation for chest pain. Patient examined at the bedside. The patient presented to the hospital with multiple complaints including shortness of breath and palpita tions. He reports having a fever at home. He also reports feeling fatigued and nauseated. He denied having any episodes of vomiting at home. The patient was found to have bilateral pneumonia and acute exacerbations of congestive heart failure and COPD. The patient was just seen in the office on 02/25/2023 for post hospital follow- up. Patient with recent event monitor revealing 100% A. fib burden with uncontrolled heart rates. He was started on amiodarone and also Eliquis. Plan was for MAHESH and cardioversion and to also assess aortic valve at that time. The patient is scheduled for this procedure on 03/14/2023. However the patient has since converted to sinus mechanism since initiation of oral amiodarone. He is maintaining sinus mechanism at the time of examination. * EKG reveals sinus bradycardia with no signs of acute ischemia * Chest xray patchy basilar infiltrates left greater than right suspicious for pneumonia. * Laboratory data: Troponin 0.059. 0.055. ProBNP 7880. BUN 62. Creatinine 2.38. * Current home cardiac medications include amiodarone taper, Lasix 40 mg twice a day, Eliquis 5 mg twice a day, amlodipine 10 mg daily, hydralazine 100 mg 3 times a day, metoprolol tartrate 25 mg [id number] * Most recent echocardiogram obtained on 02/11/2023 revealed ejection fraction 30-35%, global hypokinesis more noted in inferior and inferior lateral wall, moderate pulmonary hypertension, [id number] MR, patent foramen ovale, possible bicuspid aortic valve, [id number] aortic stenosis, moderate aortic regurgitation, moderate tricuspid regurgitation * Cardiac catheterization history: June 2022 revealing relatively normal coronary arteries other than mid LAD 30% stenosis, elevated left-sided filling pressures, moderate aortic stenosis REVIEW OF SYSTEMS: At the time of my exam: CONSTITUTIONAL: Denies fever or chills. HEENT: Denies blurred vision, vision changes, or eye pain. Denies hemoptysis CARDIOVASCULAR: Denies chest pain. Denies orthopnea. Denies PND. Denies palpitations RESPIRATORY: Denies shortness of breath. GASTROINTESTINAL: Denies abdominal pain. Denies nausea or vomiting. HEMATOLOGIC: Denies bleeding disorders. GENITOURINARY: Denies any blood in urine. SKIN: Denies pruitis. Denies rash. PHYSICAL EXAM: VITAL SIGNS: Reviewed. GENERAL: Well-developed in no acute distress. HEENT: Head is normocephalic. Pupils are equal, round. Sclerae anicteric. Mucous membranes of the mouth are moist. Neck supple. No JVD or thyromegaly LUNGS: Respirations even and unlabored. Lungs with decreased air exchange noted. HEART: Regular rate and rhythm. S1 and S2 heard. + systolic murmur ABDOMEN: Soft. Nondistended. Nontender. EXTREMITIES: Normal range of motion. No clubbing or cyanosis. Peripheral pulses intact. No lower extremity edema NEUROLOGIC: Awake and alert. Oriented x 3. ASSESSMENT: Bilateral pneumonia Acute exacerbation of COPD Chest pain, likely secondary to above, acute coronary syndrome ruled out Chronic heart failure with reduced ejection fraction, currently euvolemic Paroxysmal atrial fibrillation, currently maintaining sinus mechanism Moderate to severe aortic stenosis, per echo in December 2022 Possible bicuspid aortic valve Moderate aortic regurgitation Relatively normal coronary arteries other than mid LAD 30% stenosis, per cardiac catheterization in June 2022 Nonischemic cardiomyopathy, EF 30-35% Patent foraman ovale Acute on chronic kidney disease 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 Patient has converted to sinus mechanism with initiation of oral amiodarone at recent cardiology office visit. Patient will not require cardioversion. However MAHESH was also scheduled to evaluate aortic valve. We'll defer to patient's primary rope maker, Dr. Post, if he will still require outpatient MAHESH. Discontinue metoprolol. Begin carvedilol 6.25 mg twice a day Add Imdur 30 mg daily Additional home cardiac medications Treatment of pneumonia per primary medicine Pulmonary following. Patient receiving IV steroids for COPD exacerbation Further recommendations pending patient's course Nurse practitioner note has been reviewed by physician. Signing provider agrees with the documented findings, assessment, and plan of care. 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 History of Any Multi-Drug Resistant Organisms: None Reported Past Surgical History: Back Surgery, Heart Catheterization, Hernia Repair, Orthopedic Surgery Additional Past Surgical History / Comment(s): liver ablation done at [place] for tx of hepatocellular carcinoma,hemorrhoids ,back surgery, cataract, skin cancer, inguinal hernia, abdominal hernia, left shoulder, right wrist, growth removed vocal cord, PAROTID GLAD REMOVED DUE TO CANCER Past Anesthesia/Blood Transfusion Reactions: No Reported Reaction Additional Past Anesthesia/Blood Transfusion Reaction / Comment(s): no hx blood transfusion Smoking Status: Former smoker - Past Family History Father Family Medical History: Cancer Medications and Allergies Home Medications Medication Instructions Recorded Confirmed Type amLODIPine [Norvasc] 10 mg PO DAILY 08/06/14 03/07/23 History Colchicine 0.6 mg PO DAILY 08/02/16 03/07/23 History Ferrous Sulfate [Iron (65 MG 325 mg PO DAILY 12/29/18 03/07/23 History Elemental)] Albuterol Inhaler [Ventolin Hfa 2 puff INHALATION RT-QID PRN 07/29/19 03/07/23 History Inhaler] Omeprazole 20 mg PO BID 05/16/20 03/07/23 History Fluticasone Propion/Salmeterol 1 puff INHALATION RT-BID 06/08/22 03/07/23 History [Wixela 250-50 Inhub] hydrALAZINE HCL [Apresoline] 100 mg PO TID 06/08/22 03/07/23 History Folic Acid 1 mg PO DAILY 01/14/23 03/07/23 History Tiotropium 2.5 Mcg/Puff [Spiriva 1 puff INHALATION RT-BID 01/14/23 03/07/23 History Respimat 2.5 Mcg] predniSONE 5 mg PO DAILY 01/14/23 03/07/23 History traZODone HCL [Desyrel] 50 mg PO HS 01/14/23 03/07/23 History Cholecalciferol [Vitamin D3 (25 25 mcg PO DAILY 02/11/23 03/07/23 History Mcg = 1000 Iu)] Multivit-Min/FA/Lycopen/Lutein 1 tab PO DAILY 02/11/23 03/07/23 History [Centrum Silver Tablet] Xylitol [Xylimelts] 500 mg MM HS 02/11/23 03/07/23 History Furosemide [Lasix] 40 mg PO BID@0900,1600 #60 tab 02/18/23 03/07/23 Rx Amiodarone [Cordarone] See Taper PO DAILY 03/07/23 03/07/23 History Apixaban [Eliquis] 5 mg PO BID 03/07/23 03/07/23 History Metoprolol Tartrate [Lopressor] 25 mg PO DIRECTED 03/07/23 03/07/23 History Allergies Allergy/AdvReac Type Severity Reaction Status Date / Time No Known Allergies Allergy Verified 03/07/23 10:52 Physical Exam Vitals: Vital Signs Temp Pulse Resp BP Pulse Ox 03/07/23 11:03 55 L 17 149/55 93 L 03/07/23 10:02 49 L 19 124/68 93 L 03/07/23 08:40 98.6 F 52 L 18 118/64 93 L 03/07/23 07:14 99.2 F 56 L 18 124/56 93 L Intake and Output 03/06/23 03/07/23 03/07/23 22:59 06:59 14:59 Other: Weight 81.647 kg Results 03/08/23 09:01 03/08/23 09:01 Cardiac Enzymes 03/07/23 03/07/23 03/07/23 Range/Units 07:23 07:23 10:00 AST 37 (17-59) U/L Troponin I 0.059 H* 0.055 H* (0.000-0.034) ng/mL Coagulation 03/07/23 Range/Units 07: PT 13.2 H (10.0-12.5) sec APTT 35.6 H (22.0-30.0) sec CBC 03/07/23 Range/Units 07: WBC 2.8 L (3.8-10.6) k/uL RBC 4.24 L (4.30-5.90) m/uL Hgb 12.3 L (13.0-17.5) gm/dL Hct 36.0 L (39.0-53.0) % Plt Count 65 L (150-450) k/uL Comprehensive Metabolic Panel 03/07/23 Range/Units 07:23 Sodium 137 (137-145) mmol/L Potassium 3.1 L (3.5-5.1) mmol/L Chloride 101 (98-107) mmol/L Carbon Dioxide 24 (22-30) mmol/L BUN 62 H (9-20) mg/dL Creatinine 2.38 H (0.66-1.25) mg/dL Glucose 108 H (74-99) mg/dL Calcium 8.6 (8.4-10.2) mg/dL AST 37 (17-59) U/L ALT 31 (4-49) U/L Alkaline Phosphatase 74 (38-126) U/L Total Protein 6.4 (6.3-8.2) g/dL Albumin 3.6 (3.5-5.0) g/dL Current Medications Generic Name Dose Route Start Last Admin Trade Name Freq PRN Reason Stop Dose Admin Albuterol/Ipratropium 3 ml 03/07/23 16:00 Ipratropium-Albuterol 3 Ml Neb INHALATION RT-QID RAFY Albuterol/Ipratropium 3 ml 03/07/23 13:01 Ipratropium-Albuterol 3 Ml Neb INHALATION RT-QID PRN Shortness Of Breath Or Wheezing Amlodipine Besylate 10 mg 03/08/23 09:00 Amlodipine 10 Mg Tab PO DAILY [facility] Apixaban 5 mg 03/07/23 21:00 Apixaban 5 Mg Tab PO BID [facility] Protocol Aspirin 325 mg 03/08/23 09:00 Aspirin 325 Mg Tab PO DAILY [facility] Budesonide/Formoterol Fumarate 2 puff 03/07/23 20:00 Symbicort 80-4.5 Mcg Inhaler INHALATION RT-BID [facility] Cholecalciferol 25 mcg 03/08/23 09:00 Cholecalciferol 25 Mcg (1000 Iu) Tablet PO DAILY [facility] Colchicine 0.6 mg 03/08/23 09:00 Colchicine 0.6 Mg Each PO DAILY [facility] Dextrose/Water 25 ml 03/07/23 13:05 Dextrose 50% Syringe 50 Ml IVP PER PROTOCOL PRN Hypoglycemia Protocol Dextrose/Water 50 ml 03/07/23 13:05 Dextrose 50% Syringe 50 Ml IVP PER PROTOCOL PRN Hypoglycemia Protocol Ferrous Sulfate 325 mg 03/08/23 09:00 Ferrous Sulfate 325 Mg Tab PO DAILY [facility] Folic Acid 1 mg 03/07/23 13:30 Folic Acid 1 Mg Tab PO DAILY [facility] Furosemide 40 mg 03/07/23 16:00 Furosemide 40 Mg Tab PO BID@0900,1600 [facility] Hydralazine HCl 100 mg 03/07/23 13:30 Hydralazine Hcl 50 Mg Tab PO TID [facility] Ceftriaxone Sodium 1 gm/ 50 mls @ 100 mls/hr 03/07/23 13:15 Sodium Chloride IVPB Q24HR [facility] Protocol Insulin Aspart 0 unit 03/07/23 17:30 Insulin Aspart (Novolog) 100 Unit/Ml Vial SQ ACHS [facility] Protocol Methylprednisolone Sodium Succinate 60 mg 03/07/23 13:15 Methylprednisolone Sod Succi 125 Mg/2 Ml Vial IV Q6HR [facility] Metoprolol Tartrate 25 mg 03/07/23 13:15 Metoprolol Tartrate 25 Mg Tab PO Q4HR [facility] Miscellaneous Information 1 each 03/07/23 12:58 Potassium Replacement Protocol 1 Each Misc MISCELLANE DAILY PRN Per Protocol Protocol Miscellaneous Information 1 each 03/07/23 12:58 Magnesium Replacement Protocol 1 Each Misc MISCELLANE DAILY PRN Per Protocol Protocol Multivitamins 1 each 03/08/23 09:00 Multivitamins, Thera 1 Each Tab PO DAILY [facility] Nitroglycerin 0.4 mg 03/07/23 09:30 Nitroglycerin Sl Tabs 0.4 Mg Tab SUBLINGUAL Q5M PRN Chest Pain Pantoprazole Sodium 40 mg 03/07/23 17:30 Pantoprazole 40 Mg Tablet PO AC-[id number] [facility] Saliva Substitute 1 spray 03/07/23 21:00 Dry Mouth Mize 44.3 Mize/44.3 Ml Mize MUCOUS MEM HS RAFY Trazodone HCl 50 mg 03/07/23 21:00 Trazodone Hcl 50 Mg Tab PO HS [facility] Intake and Output 03/06/23 03/07/23 03/07/23 22:59 06:59 14:59 Other: Weight 81.647 kg Patient Weight 03/08/23 06:59 Weight 81.647 kg 03/07/23 07:23 03/07/23 07:23
--- NOTE | 2023-03-08 15:50 | P.PN ---
Subjective Progress Note Date: 03/08/23 This is a very pleasant 73-year-old male patient with a history of moderate chronic obstructive pulmonary disease with FEV1 Of 59% of predicted, maintained on prednisone 5 mg daily, paroxysmal atrial fibrillation not a candidate for anticoagulation, chronic kidney disease, stage III, cirrhosis of the liver, hepatocellular carcinoma resected, hypertension, chronic anemia, chronic systolic congestive heart failure with an ejection fraction of 30%. He was recently hospitalized for multifocal pneumonia involving the left lung. Follow- up computed tomography scan on 01/29/2023 revealed significant clearing. No concerns for malignancy. He presented here to the emergency room earlier this morning with a one-day history of chest pain, shortness of breath, nausea, fever, fatigue. S2 x-ray reveals patchy by basilar infiltrates left greater than right. EKG reveals sinus bradycardia. White count 2.8. Hemoglobin 12.3. Platelets 65,000. Sodium 137. Potassium 3.1. Bicarb 24. BUN 62. Creatinine 2.38. Glucose 108. Troponin 0.059, 0.055, 0.053, proBNP 7880. Viral screen negative. He is seen today in consultation in the emergency department. Currently sitting up in a chair. Awake and alert in no acute distress. Maintaining good O2 saturations in the 90s on 2 L/m per nasal cannula. He's been initiated on DuoNeb inhalations, Symbicort, Solu-Medrol. Antibiotics in the form of ceftriaxone. He is anticoagulated with Eliquis. On oral diuretics. The patient is seen today 03/08/2023 and follow-up on the selective care unit. He is currently sitting up in a chair at the bedside. Awake and alert in no acute distress. Freely better today compared to yesterday. He is maintaining g ood O2 saturations in the 90s on room air. He's afebrile. Hemodynamically stable. White count 1.9. Hemoglobin 11.3. Platelets 52,000. Sodium 1:30. Potassium 4.0. Bicarb 25. BUN 66. Creatinine 2.3. Glucose 200. Continued on DuoNeb inhalations, Symbicort, Solu-Medrol. Antibiotics in the form of ceftriaxone. Anticoagulated with Eliquis. Remains on oral diuretics. Objective - Vital Signs Vital signs: Vital Signs Temp 97.5 F L 03/08/23 12:00 Pulse 59 L 03/08/23 15:30 Resp 16 03/08/23 15:30 BP 156/65 03/08/23 08:00 Pulse Ox 98 03/08/23 12:00 FiO2 Intake & Output 03/07/23 03/08/23 03/08/23 18:59 06:59 18:59 Intake Total 660 240 710 Balance 660 240 710 Weight 81.647 kg Intake: Oral 660 240 710 Other: # Voids 1 - Exam GENERAL EXAM: Alert, pleasant 73-year-old male patient, up in a chair, on room air, comfortable in no apparent distress. HEAD: Normocephalic. EYES: Normal reaction of pupils, equal size. NOSE: Clear with pink turbinates. THROAT: No erythema or exudates. NECK: No masses, no JVD. CHEST: No chest wall deformity. LUNGS: Equal air entry with bilateral scattered rhonchi. CVS: S1 and S2 normal with no audible murmur, regular rhythm. ABDOMEN: No hepatosplenomegaly, normal bowel sounds, no guarding or rigidity. SPINE: No scoliosis or deformity SKIN: No rashes CENTRAL NERVOUS SYSTEM: No focal deficits, tone is normal in all 4 extremities. EXTREMITIES: There is no peripheral edema. No clubbing, no cyanosis. Peripheral pulses are intact. - Labs CBC & Chem 7: 03/08/23 09:01 03/08/23 09:01 Labs: Abnormal Lab Results - Last 24 Hours (Table) 03/07/23 03/07/23 03/07/23 Range/Units 07:23 16:46 20:05 WBC (3.8-10.6) k/uL RBC (4.30-5.90) m/uL Hgb (13.0-17.5) gm/dL Hct (39.0-53.0) % RDW (11.5-15.5) % Plt Count (150-450) k/uL Lymphocytes # (1.0-4.8) k/uL BUN (9-20) mg/dL Creatinine (0.66-1.25) mg/dL Glucose (74-99) mg/dL POC Glucose (mg/dL) 149 H 198 H (70-110) mg/dL Procalcitonin 0.19 H (0.02-0.09) ng/mL 03/08/23 03/08/2303/08/23 Range/Units 06:31 09:01 09:01 WBC 1.9 L (3.8-10.6) k/uL RBC 3.90 L (4.30-5.90) m/uL Hgb 11.3 L (13.0-17.5) gm/dL Hct 34.2 L (39.0-53.0) % RDW 16.8 H (11.5-15.5) % Plt Count 53 L (150-450) k/uL Lymphocytes # 0.2 L (1.0-4.8) k/uL BUN 66 H (9-20) mg/dL Creatinine 2.38 H (0.66-1.25) mg/dL Glucose 200 H (74-99) mg/dL POC Glucose (mg/dL) 160 H (70-110) mg/dL Procalcitonin (0.02-0.09) ng/mL 03/08/23 Range/Units 11:29 WBC (3.8-10.6) k/uL RBC (4.30-5.90) m/uL Hgb (13.0-17.5) gm/dL Hct (39.0-53.0) % RDW (11.5-15.5) % Plt Count (150-450) k/uL Lymphocytes # (1.0-4.8) k/uL BUN (9-20) mg/dL Creatinine (0.66-1.25) mg/dL Glucose (74-99) mg/dL POC Glucose (mg/dL) 190 H (70-110) mg/dL Procalcitonin (0.02-0.09) ng/mL Assessment and Plan Assessment: Acute hypoxemic respiratory failure secondary to suspected bilateral pneumonia. Procalcitonin 0.19. Currently on ceftriaxone Acute exacerbation of systolic congestive heart failure in a patient with a known history of impaired left ventricular systolic function with an ejection fraction of 35% Acute exacerbation of severe steroid dependent chronic obstructive pulmonary disease secondary to above FEV1 value of 59% of predicted Recent admission for CHF exacerbation Atrial fibrillation with rapid ventricular response, on Eliquis History of pancytopenia History of moderate to severe aortic stenosis Chronic tobacco dependency Hyperlipidemia Hypertension History of hepatocellular carcinoma status post ablation History of parotid gland cancer status post resection Plan: The patient was seen and evaluated Labs and medications reviewed Continue ceftriaxone Continue diuretics Continue bronchodilators and steroids Follow-up chest x-ray in a.m. We will continue to follow I have personally seen and examined the patient, performed the documentation and the assessment and plan as written. Number of minutes spent on the visit: 10.
[2023-03-08 16:08] LABS: Chol/HDL Ratio 2.63 Ratio; LDL Cholesterol,Calculated 49.3 mg/dL (0.0-131.0); VLDL Calculation 15.84 mg/dL (5.00-40.00)
[2023-03-08 16:13] LABS: Glucose,Whole Blood 203 mg/dL (70-110)
[2023-03-08] MEDS: carvediloL 6.25 MG TAB PO SCH (16:38)
--- NOTE | 2023-03-08 16:41 | PN ---
PROGRESS NOTE DATE OF SERVICE: 03/08/2023 SUBJECTIVE: This is a 73-year-old gentleman, who was admitted with shortness of breath, possible COPD acute exacerbation, acute bilateral pneumonia. He is on empiric antibiotics. The patient is feeling slightly better. No chest pain. No palpitation. No fever. PHYSICAL EXAMINATION: VITAL SIGNS: Pulse is 53, blood pressure 156/64, respirations 16. CHEST: Few scattered rhonchi and crackles. ABDOMEN: Soft. NERVOUS SYSTEM: Nonfocal. LABORATORY DATA: Reviewed. WBC 1.9, hemoglobin 11.3. ASSESSMENT: 1. Shortness of breath, possible chronic obstructive pulmonary disease acute exacerbation. 2. Acute bilateral pneumonia, left more than right, possibly gram-negative. 3. Chronic kidney disease, stage 3. 4. Troponin 0.06, indeterminate. Rule out acute edm-LC-[id number]-elevation myocardial infarction. 5. Mild pancytopenia. 6. History of congestive heart failure. 7. Hypertension. 8. Hyperlipidemia. 9. History of chronic hepatitis C, hepatocellular carcinoma, and chronic liver disease history. 10.Complex medical issues. RECOMMENDATIONS: Recommend to continue current medications. Continue symptomatic treatment. Otherwise, I would recommend followup with primary physicians, and I would also recommend Hematology/Oncology evaluation also because of significant leukopenia and pancytopenia, which could be due to his primary liver disease. MMODL / IJN: [id number] /
[2023-03-08 16:53] LABS: Appearance,Urine Clear (Clear); Bilirubin,Urine Negative (Negative); Blood,Urine Negative (Negative); Color,Urine Yellow; Glucose,Urine (UA) Negative (Negative); Ketones,Urine Negative (Negative); Leukocyte Esterase,Urine Negative (Negative); Nitrite,Urine Negative (Negative); Protein,Urine Negative (Negative); Specific Gravity,Urine 1.011 (1.001-1.035); Urobilinogen,Urine <2.0 mg/dL (<2.0)
--- NOTE | 2023-03-08 16:59 | P.PN ---
Subjective Progress Note Date: 03/08/23 Principal diagnosis: Reason for follow-up is pneumonia Patient is a 73-year-old male with a past medical history significant for hypertension hyperlipidemia COPD history of chronic hepatitis C hepatocellular carcinoma patient presenting to the hospital for evaluation of chest pain and shortness of breath, patient was noticed to have a low-grade fever and a patchy basilar infiltrate concerning for pneumonia On today's evaluation that is03/08/2023 the patient remains to be afebrile, the patient is breathing comfortably on room air and no need for oxygen. The patie nt denies shortness of breath denies any chest pain or cough has decreased intensity with minimal sputum production, patient denies nausea/vomiting or diarrhea and no abdominal pain. Patient did have white count of 1.9, creatinine is 2.38 Objective - Vital Signs Vital signs: Vital Signs Temp 97.5 F L 03/08/23 12:00 Pulse 53 L 03/08/23 12:00 Resp 18 03/08/23 12:00 BP 156/65 03/08/23 08:00 Pulse Ox 98 03/08/23 12:00 FiO2 Intake & Output 03/07/23 03/08/23 03/08/23 18:59 06:59 18:59 Intake Total 660 240 200 Balance 660 240 200 Weight 81.647 kg Intake: Oral 660 240 200 - Exam GENERAL DESCRIPTION: An elderly male up in the chair in no distress RESPIRATORY SYSTEM: Unlabored breathing , decreased breath sound at the base HEART: S1 S2 regular rate and rhythm , ABDOMEN: Soft , no tenderness EXTREMITIES: No edema feet - Labs CBC & Chem 7: 03/08/23 09:01 03/08/23 09:01 Labs: Abnormal Lab Results - Last 24 Hours (Table) 03/07/23 03/07/23 03/07/23 Range/Units 07:23 13:12 16:46 WBC (3.8-10.6) k/uL RBC (4.30-5.90) m/uL Hgb (13.0-17.5) gm/dL Hct (39.0-53.0) % RDW (11.5-15.5) % Plt Count (150-450) k/uL Lymphocytes # (1.0-4.8) k/uL BUN (9-20) mg/dL Creatinine (0.66-1.25) mg/dL Glucose (74-99) mg/dL POC Glucose (mg/dL) 149 H (70-110) mg/dL Troponin I 0.053 H* (0.000-0.034) ng/mL Procalcitonin 0.19 H (0.02-0.09) ng/mL 03/07/23 03/08/23 03/08/23 Range/Units 20:05 06:31 09:01 WBC (3.8-10.6) k/uL RBC (4.30-5.90) m/uL Hgb (13.0-17.5) gm/dL Hct (39.0-53.0) % RDW (11.5-15.5) % Plt Count (150-450) k/uL Lymphocytes # (1.0-4.8) k/uL BUN 66 H (9-20) mg/dL Creatinine 2.38 H (0.66-1.25) mg/dL Glucose 200 H (74-99) mg/dL POC Glucose (mg/dL) 198 H 160 H (70-110) mg/dL Troponin I (0.000-0.034) ng/mL Procalcitonin (0.02-0.09) ng/mL 03/08/23 03/08/23 Range/Units 09:01 11:29 WBC 1.9 L (3.8-10.6) k/uL RBC 3.90 L (4.30-5.90) m/uL Hgb 11.3 L (13.0-17.5) gm/dL Hct 34.2 L (39.0-53.0) % RDW 16.8 H (11.5-15.5) % Plt Count 53 L (150-450) k/uL Lymphocytes # 0.2 L (1.0-4.8) k/uL BUN (9-20) mg/dL Creatinine (0.66-1.25) mg/dL Glucose (74-99) mg/dL POC Glucose (mg/dL) 190 H (70-110) mg/dL Troponin I (0.000-0.034) ng/mL Procalcitonin (0.02-0.09) ng/mL Assessment and Plan (1) Pneumonia Current Visit: No Status: Acute Code(s): J18.9 - PNEUMONIA, UNSPECIFIED ORGANISM SNOMED Code(s): 538187334 Plan: 1patient was in the hospital with a increasing shortness of breath Along with chest pain which is likely multifactorial in this patient with likely COPD exacerbation tracheobronchitis and complaint of pneumonia on the basis chest x- ray finding likely community-acquired 2- sputum for Gram stain culture and CRP , procalcitonin level are currently pending 3-patient to continue Rocephin 1 g daily while waiting for the culture to finalize Dictation was produced using [employer] dictation software. please excuse any grammatical, word or spelling errors. Time with Patient: Less than 30
[2023-03-08 20:18] LABS: Glucose,Whole Blood 173 mg/dL (70-110)
[2023-03-08] MEDS: DRY MOUTH SPRAY 44.3 SPRAY/44.3 ML SPRAY MUCOUS MEM SCH (21:33)
[2023-03-08] MEDS: traZODone HCL 50 MG TAB PO SCH (21:34)
[2023-03-09 02:51] LABS: Hepatitis C IgG Antibody Reactive (Non-Reactive)
[2023-03-09 03:15] LABS: Hepatitis A Antibody IgM Nonreactive; Hepatitis B Core IgM Nonreactive; Hepatitis B Surface Antigen Nonreactive
[2023-03-09] MEDS: HYDROcodone/APAP 5-325MG 1 EACH TAB PO PRN ×2 (03:37→16:48)
[2023-03-09 06:13] LABS: Glucose,Whole Blood 155 mg/dL (70-110)
[2023-03-09] MEDS: PANTOPRAZOLE 40 MG TABLET PO SCH (06:38)
[2023-03-09] MEDS: methylPREDNISolone SOD SUCCI 125 MG/2 ML VIAL IV SCH (06:38)
[2023-03-09] MEDS: INSULIN ASPART (NovoLOG) 100 UNIT/ML VIAL SQ SCH ×4 (06:38→20:47)
[2023-03-09] MEDS: carvediloL 6.25 MG TAB PO SCH ×2 (06:38→16:41)
[2023-03-09] MEDS: IPRATROPIUM-ALBUTEROL 3 ML NEB INHALATION SCH ×4 (08:27→21:00)
[2023-03-09] MEDS: SYMBICORT 80-4.5 MCG INHALER INHALATION SCH ×2 (08:27→21:00)
[2023-03-09] MEDS: COLCHICINE 0.6 MG EACH PO SCH (09:06)
[2023-03-09] MEDS: APIXABAN 5 MG TAB PO SCH (09:06)
[2023-03-09] MEDS: hydrALAZINE HCL 50 MG TAB PO SCH ×3 (09:06→21:23)
[2023-03-09] MEDS: FERROUS SULFATE 325 MG TAB PO SCH (09:06)
[2023-03-09] MEDS: AMIODARONE 200 MG TAB PO SCH (09:06)
[2023-03-09] MEDS: CHOLECALCIFEROL 25 MCG (1000 IU) TABLET PO SCH (09:06)
[2023-03-09] MEDS: ISOSORBIDE MONONITRATE ER 30 MG TAB.ER.24H PO SCH (09:06)
[2023-03-09] MEDS: FUROSEMIDE 40 MG TAB PO SCH ×2 (09:06→16:41)
[2023-03-09] MEDS: amLODIPine 10 MG TAB PO SCH (09:06)
[2023-03-09] MEDS: FOLIC ACID 1 MG TAB PO SCH (09:06)
[2023-03-09] MEDS: MULTIVITAMINS, THERA 1 EACH TAB PO SCH (09:07)
--- NOTE | 2023-03-09 09:26 | XR ---
EXAMINATION TYPE: XR chest 1V portable DATE OF EXAM: 03/09/2023 COMPARISON: 03/07/2023 INDICATION: CHF, pneumonia TECHNIQUE: Single frontal view of the chest is obtained. FINDINGS: The heart size is upper limits of normal. The pulmonary vasculature is normal. Left lower lobe infiltrate is present. Some atelectasis may be at the mid left lung. IMPRESSION: 1. Improving left lower lobe infiltrate. Some underlying left midlung atelectasis is likely present. Continued follow-up is recommended
[2023-03-09 11:27] LABS: Glucose,Whole Blood 145 mg/dL (70-110)
[2023-03-09 11:34] LABS: Anisocytosis Slight; Basophils % (A) 0 %; Eosinophils % (A) 1 %; HCT 34.8 % (39.0-53.0); HGB 11.2 gm/dL (13.0-17.5); Lymphocytes # (A) 0.1 k/uL (1.0-4.8); Lymphocytes % (A) 7 %; MCH 28.2 pg (25.0-35.0); MCHC 32.3 g/dL (31.0-37.0); MCV 87.3 fL (80.0-100.0); Mean Platelet Volume 10.7; Monocytes # (A) 0.1 k/uL (0-1.0); Monocytes % (A) 8 %; Neutrophils # (A) 1.4 k/uL (1.3-7.7); Neutrophils % (A) 83 %; RBC 3.99 m/uL (4.30-5.90); RDW 16.8 % (11.5-15.5); WBC 1.7 k/uL (3.8-10.6)
[2023-03-09 11:51] LABS: Platelet Count 46 k/uL (150-450)
[2023-03-09 12:00] LABS: ALT 43 U/L (4-49); AST 37 U/L (17-59); African American GFR (CKD) 41 (>60 ml/min/1.73 sqM); Albumin 3.4 g/dL (3.5-5.0); Alkaline Phosphatase 98 U/L (38-126); Anion Gap 15 mmol/L; Blood Urea Nitrogen 70 mg/dL (9-20); Carbon Dioxide 23 mmol/L (22-30); Chloride 100 mmol/L (98-107); Glucose 149 mg/dL (74-99); Non-African American GFR(CKD) 35 (>60 ml/min/1.73 sqM); Potassium 3.2 mmol/L (3.5-5.1); Sodium 138 mmol/L (137-145); Total Bilirubin 0.6 mg/dL (0.2-1.3); Total Protein 6.4 g/dL (6.3-8.2)
--- NOTE | 2023-03-09 12:10 | P.PN ---
Subjective Progress Note Date: 03/09/23 Principal diagnosis: Shortness of breath. This is a very pleasant 73-year-old male patient with a history of moderate chronic obstructive pulmonary disease with FEV1 Of 59% of predicted, maintained on prednisone 5 mg daily, paroxysmal atrial fibrillation not a candidate for anticoagulation, chronic kidney disease, stage III, cirrhosis of the liver, hepatocellular carcinoma resected, hypertension, chronic anemia, chronic systolic congestive heart failure with an ejection fraction of 30%. He was recently hospitalized for multifocal pneumonia involving the left lung. Follow- up computed tomography scan on 01/29/2023 revealed significant clearing. No concerns for malignancy. He presented here to the emergency room earlier this morning with a one-day history of chest pain, shortness of breath, nausea, fever, fatigue. S2 x-ray reveals patchy by basilar infiltrates left greater than right. EKG reveals sinus bradycardia. White count 2.8. Hemoglobin 12.3. Platelets 65,000. Sodium 137. Potassium 3.1. Bicarb 24. BUN 62. Creatinine 2.38. Glucose 108. Troponin 0.059, 0.055, 0.053, proBNP 7880. Viral screen negative. He is seen today in consultation in the emergency department. Currently sitting up in a chair. Awake and alert in no acute distress. Maint aining good O2 saturations in the 90s on 2 L/m per nasal cannula. He's been initiated on DuoNeb inhalations, Symbicort, Solu-Medrol. Antibiotics in the form of ceftriaxone. He is anticoagulated with Eliquis. On oral diuretics. The patient is seen today 03/08/2023 and follow-up on the selective care unit. He is currently sitting up in a chair at the bedside. Awake and alert in no acute distress. Freely better today compared to yesterday. He is maintaining good O2 saturations in the 90s on room air. He's afebrile. Hemodynamically stable. White count 1.9. Hemoglobin 11.3. Platelets 52,000. Sodium 1:30. Potassium 4.0. Bicarb 25. BUN 66. Creatinine 2.3. Glucose 200. Continued on DuoNeb inhalations, Symbicort, Solu-Medrol. Antibiotics in the form of ceftriaxone. Anticoagulated with Eliquis. Remains on oral diuretics. Progress note dated 03/09/2023. The patient is seen today in room 382. Currently, the patient appears to be doing relatively well. He is getting saline at 20 mL an hour. He is on room air. His breathing is much improved. He continues on Rocephin. His chest x- ray reveals a left lower lobe infiltrate. His Solu-Medrol was converted to prednisone 30 mg a day. White count 1.7, hemoglobin 11.2, hematocrit 34.8, and platelet count 46,000. The patient does have pancytopenia. Sodium 138, potassium 3.2, chlorides 100, CO2 23, BUN 70, creatinine 1.86. Cultures are thus far negative for pending. Chest x-ray reveals a improving left lower lobe infiltrate. Objective - Vital Signs Vital signs: Vital Signs Temp 97.6 F 03/09/23 11:59 Pulse 58 L 03/09/23 11:59 Resp 18 03/09/23 11:59 BP 159/69 03/09/23 11:59 Pulse Ox 95 03/09/23 11:59 FiO2 Intake & Output 03/08/23 03/09/23 03/09/23 18:59 06:59 18:59 Intake Total 1185 540 480 Output Total 0 Balance 1185 540 480 Intake: Oral 1185 540 480 Output: Gastric Drainage 0 Urine 0 Stool 0 Urine/Stool Mix 0 Emesis 0 Oral Regurgitation 0 Other 0 Other: Voiding Method Toilet Toilet # Voids 1 1 0 # Bowel Movements 0 - Exam No acute distress, oriented 3. Currently on room air. No respiratory distress. HEENT examination is grossly unremarkable. Mucous membranes are moist. No oral lesions. Neck supple. Full range of motion. No adenopathy thyromegaly or neck vein distention. Cardiovascular examination reveals regular rhythm rate. S1-S2 normal. No S3 or S4. No discernible murmur noted. Heart rate 58 bpm. Lungs reveal minimal scattered rhonchi. No wheezes or crackles. Breath sounds equal bilaterally. Room air saturation between 95 and 98%. Abdomen soft bowel sounds are heard. No masses or tenderness. Extremities are intact. No cyanosis clubbing or edema. Skin is without rash or lesion. Neurologic examination is brief but nonfocal. - Labs CBC & Chem 7: 03/09/23 10:58 03/09/23 10:58 Labs: Abnormal Lab Results - Last 24 Hours (Table) 12/04/3003/08/23 03/08/23 Range/Units 09:01 14:29 16:11 WBC (3.8-10.6) k/uL RBC (4.30-5.90) m/uL Hgb (13.0-17.5) gm/dL Hct (39.0-53.0) % RDW (11.5-15.5) % Plt Count (150-450) k/uL Lymphocytes # (1.0-4.8) k/uL Potassium (3.5-5.1) mmol/L BUN (9-20) mg/dL Creatinine (0.66-1.25) mg/dL Glucose (74-99) mg/dL POC Glucose (mg/dL) 203 H (70-110) mg/dL Albumin (3.5-5.0) g/dL HDL Cholesterol 39.90 L (40.00-60.00) mg/dL Hep C IgG Ab Reactive A (Non-Reactive) 03/08/23 03/09/23 03/09/23 Range/Units 20:13 06:11 10:58 WBC 1.7 L (3.8-10.6) k/uL RBC 3.99 L (4.30-5.90) m/uL Hgb 11.2 L (13.0-17.5) gm/dL Hct 34.8 L (39.0-53.0) % RDW 16.8 H (11.5-15.5) % Plt Count 46 L (150-450) k/uL Lymphocytes # 0.1 L (1.0-4.8) k/uL Potassium (3.5-5.1) mmol/L BUN (9-20) mg/dL Creatinine (0.66-1.25) mg/dL Glucose (74-99) mg/dL POC Glucose (mg/dL) 173 H 155 H (70-110) mg/dL Albumin (3.5-5.0) g/dL HDL Cholesterol (40.00-60.00) mg/dL Hep C IgG Ab (Non-Reactive) 03/09/23 03/09/23 Range/Units 10:58 11:26 WBC (3.8-10.6) k/uL RBC (4.30-5.90) m/uL Hgb (13.0-17.5) gm/dL Hct (39.0-53.0) % RDW (11.5-15.5) % Plt Count (150-450) k/uL Lymphocytes # (1.0-4.8) k/uL Potassium 3.2 L (3.5-5.1) mmol/L BUN 70 H (9-20) mg/dL Creatinine 1.86 H (0.66-1.25) mg/dL Glucose 149 H (74-99) mg/dL POC Glucose (mg/dL) 145 H (70-110) mg/dL Albumin 3.4 L (3.5-5.0) g/dL HDL Cholesterol (40.00-60.00) mg/dL Hep C IgG Ab (Non-Reactive) Microbiology - Last 24 Hours (Table) 03/08/23 11:26 Gram Stain - Preliminary Sputum 03/07/23 13:31 Blood Culture - Preliminary Blood 03/07/23 13:31 Blood Culture - Preliminary Blood Assessment and Plan Assessment: Acute hypoxemic respiratory failure secondary to suspected bilateral pneumonia. Acute exacerbation of systolic congestive heart failure in a patient with a known history of impaired left ventricular systolic function with an ejection fraction of 35%. Acute exacerbation of severe steroid dependent chronic obstructive pulmonary disease secondary to above FEV1 value of 59% of predicted. Recent admission for CHF exacerbation. Atrial fibrillation with rapid ventricular response. History of pancytopenia. History of moderate to severe aortic stenosis. Chronic tobacco dependency. Hyperlipidemia. Hypertension. History of hepatocellular carcinoma. History of parotid gland cancer status post resection. Plan: Plan dated 03/09/2023. The patient is seen today in room 382. He is on saline at 20 mL an hour. He continues on Rocephin. He's not requiring any supplemental oxygen. The patient's left lower lobe infiltrates improved on chest x-ray. His Solu-Medrol was changed to prednisone 30 mg a day. Labs, x-rays, and medications are reviewed. We will continue to follow the patient, and make recommendations along the way. Prognosis is certainly guarded. Time with Patient: Less than 30
[2023-03-09] MEDS: POTASSIUM CHLORIDE ER 20 MEQ TAB.ER PO SCH ×2 (12:40→14:05)
--- NOTE | 2023-03-09 13:47 | P.CONS ---
History of Present Illness - Reason for Consult Consult date: 03/09/23 Pancytopenia - Chief Complaint Dyspnea - History of Present Illness Mr. Morales is a 73-year-old gentleman with a past medical history significant for HCC status post radiofrequency ablation in February 2018 and August 2018, hepatitis C complicated by cirrhosis with esophageal varices, CKD stage IIIb possibly due to hepatorenal syndrome, paroxysmal atrial fibrillation, and heart failure with reduced ejection fraction who was admitted for increased dyspnea. He has had 2 previous hospitalizations within the past month. We were previously consulted for pancytopenia on his first admission at the beginning of February 2023, where workup noted no evidence of nutritional deficiency of copper, iron, vitamin B12, folic acid. Workup for DIC was negative as was HIV. He did have positive hepatitis C antibody with no detected viral load. At that time, he did have neutropenia, which progressively improved with antibiotics for suspected pneumonia. He presented on 03/07/2023 with increased dyspnea and chest discomfort. On presentation, WBC was noted to be 2.8 (ANC 2.5), hemoglobin 12.3 (MCV 84.8), platelets 65. Creatinine was 2.38 with most recent baseline of 1.5-1.8. Chest x-ray noted patchy basilar infiltrates greater on the left than on the right concerning for pneumonia. Viral panel was negative. He was started on ceftriaxone and IV methylprednisolone has had subsequent improvement in his breathing. Blood cultures from initial presentation are negative with sputum culture pending. Currently, he notes feeling much improved and is requesting to go home. WBC is 1.7 (ANC 1.4), hemoglobin 11.2, platelets 46. He has been noted to have previous neutropenia on prior admissions along with platelet counts ranging in the 50s to 60s and hemoglobin ranging from 11-12. He is currently on Eliquis for his atrial fibrillation. Is been noted that he is now in sinus rhythm after initiation of amiodarone. 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 History of Any Multi-Drug Resistant Organisms: None Reported Past Surgical History: Back Surgery, Heart Catheterization, Hernia Repair, Orthopedic Surgery Additional Past Surgical History / Comment(s): liver ablation done at [facility] for tx of hepatocellular carcinoma,hemorrhoids ,back surgery, cataract, skin cancer, inguinal hernia, abdominal hernia, left shoulder, right wrist, growth removed vocal cord, PAROTID GLAD REMOVED DUE TO CANCER Past Anesthesia/Blood Transfusion Reactions: No Reported Reaction Additional Past Anesthesia/Blood Transfusion Reaction / Comm: no hx blood transfusion Smoking Status: Former smoker - Past Family History Father Family Medical History: Cancer Medications and Allergies Home Medications Medication Instructions Recorded Confirmed Type amLODIPine [Norvasc] 10 mg PO DAILY 08/06/14 03/07/23 History Colchicine 0.6 mg PO DAILY 08/02/16 03/07/23 History Ferrous Sulfate [Iron (65 MG 325 mg PO DAILY 12/29/18 03/07/23 History Elemental)] Albuterol Inhaler [Ventolin Hfa 2 puff INHALATION RT-QID PRN 07/29/19 03/07/23 History Inhaler] Omeprazole 20 mg PO BID 05/16/20 03/07/23 History Fluticasone Propion/Salmeterol 1 puff INHALATION RT-BID 06/08/22 03/07/23 History [Wixela 250-50 Inhub] hydrALAZINE HCL [Apresoline] 100 mg PO TID 06/08/22 03/07/23 History Folic Acid 1 mg PO DAILY 01/14/23 03/07/23 History Tiotropium 2.5 Mcg/Puff [Spiriva 1 puff INHALATION RT-BID 01/14/23 03/07/23 History Respimat 2.5 Mcg] predniSONE 5 mg PO DAILY 01/14/23 03/07/23 History traZODone HCL [Desyrel] 50 mg PO HS 01/14/23 03/07/23 History Cholecalciferol [Vitamin D3 (25 25 mcg PO DAILY 02/11/23 03/07/23 History Mcg = 1000 Iu)] Multivit-Min/FA/Lycopen/Lutein 1 tab PO DAILY 02/11/23 03/07/23 History [Centrum Silver Tablet] Xylitol [Xylimelts] 500 mg MM HS 02/11/23 03/07/23 History Furosemide [Lasix] 40 mg PO BID@0900,1600 #60 tab 02/18/23 03/07/23 Rx Amiodarone [Cordarone] See Taper PO DAILY 03/07/23 03/07/23 History Apixaban [Eliquis] 5 mg PO BID 03/07/23 03/07/23 History Metoprolol Tartrate [Lopressor] 25 mg PO DIRECTED 03/07/23 03/07/23 History Allergies Allergy/AdvReac Type Severity Reaction Status Date / Time No Known Allergies Allergy Verified 03/07/23 10:52 Physical Exam Vitals: Vital Signs Temp Pulse Pulse Pulse Resp BP Pulse Ox 03/09/23 11:59 97.6 F 58 L 18 159/69 95 03/09/23 08:45 62 03/09/23 08:32 98 03/09/23 08:27 60 03/09/23 08:00 97.7 F 58 L 18 171/72 97 03/09/23 03:35 61 16 156/75 99 03/08/23 23:51 57 L 16 151/67 97 03/08/23 20:44 59 L 03/08/23 20:31 58 L 03/08/23 19:48 67 18 165/80 97 03/08/23 16:00 97.5 F L 54 L 16 145/66 94 L 03/08/23 15:30 59 L 16 03/08/23 15:20 59 L 16 Intake and Output 03/08/23 03/09/23 03/09/23 22:59 06:59 14:59 Intake Total 475 540 600 Output Total 0 Balance 475 540 600 Intake: Oral 475 540 600 Output: Gastric Drainage 0 Urine 0 Stool 0 Urine/Stool Mix 0 Emesis 0 Oral Regurgitation 0 Other 0 Other: Voiding Method Toilet Toilet Toilet # Voids 1 1 0 # Bowel Movements 0 - Constitutional General appearance: cooperative, no acute distress - EENT Eyes: EOMI - Respiratory Respiratory: bilateral: diminished (Diminished at the bilateral bases) - Cardiovascular Rhythm: regular Abnormal Heart Sounds: systolic murmur - Gastrointestinal General gastrointestinal: no distended, soft, no tenderness - Neurologic Neurologic: CNII-XII intact Results CBC & Chem 7: 03/09/23 10:58 03/09/23 10:58 Labs: Abnormal Lab Results - Last 24 Hours (Table) 03/08/23 03/08/23 03/08/23 Range/Units 09:01 14:29 16:11 WBC (3.8-10.6) k/uL RBC (4.30-5.90) m/uL Hgb (13.0-17.5) gm/dL Hct (39.0-53.0) % RDW (11.5-15.5) % Plt Count (150-450) k/uL Lymphocytes # (1.0-4.8) k/uL Potassium (3.5-5.1) mmol/L BUN (9-20) mg/dL Creatinine (0.66-1.25) mg/dL Glucose (74-99) mg/dL POC Glucose (mg/dL) 203 H (70-110) mg/dL Albumin (3.5-5.0) g/dL HDL Cholesterol 39.90 L (40.00-60.00) mg/dL Hep C IgG Ab Reactive A (Non-Reactive) 03/08/23 03/09/23 03/09/23 Range/Units 20:13 06:11 10:58 WBC 1.7 L (3.8-10.6) k/uL RBC 3.99 L (4.30-5.90) m/uL Hgb 11.2 L (13.0-17.5) gm/dL Hct 34.8 L (39.0-53.0) % RDW 16.8 H (11.5-15.5) % Plt Count 46 L (150-450) k/uL Lymphocytes # 0.1 L (1.0-4.8) k/uL Potassium (3.5-5.1) mmol/L BUN (9-20) mg/dL Creatinine (0.66-1.25) mg/dL Glucose (74-99) mg/dL POC Glucose (mg/dL) 173 H 155 H (70-110) mg/dL Albumin (3.5-5.0) g/dL HDL Cholesterol (40.00-60.00) mg/dL Hep C IgG Ab (Non-Reactive) 03/09/23 03/09/23 Range/Units 10:58 11:26 WBC (3.8-10.6) k/uL RBC (4.30-5.90) m/uL Hgb (13.0-17.5) gm/dL Hct (39.0-53.0) % RDW (11.5-15.5) % Plt Count (150-450) k/uL Lymphocytes # (1.0-4.8) k/uL Potassium 3.2 L (3.5-5.1) mmol/L BUN 70 H (9-20) mg/dL Creatinine 1.86 H (0.66-1.25) mg/dL Glucose 149 H (74-99) mg/dL POC Glucose (mg/dL) 145 H (70-110) mg/dL Albumin 3.4 L (3.5-5.0) g/dL HDL Cholesterol (40.00-60.00) mg/dL Hep C IgG Ab (Non-Reactive) Microbiology - Last 24 Hours (Table) 03/08/23 11:26 Gram Stain - Preliminary Sputum 03/07/23 13:31 Blood Culture - Preliminary Blood 03/07/23 13:31 Blood Culture - Preliminary Blood Assessment and Plan (1) Acute exacerbation of chronic obstructive pulmonary disease Current Visit: No Status: Acute Code(s): J44.1 - CHRONIC OBSTRUCTIVE PULMONARY DISEASE W (ACUTE) EXACERBATION SNOMED Code(s): 368105284 (2) Atrial fibrillation with RVR Current Visit: No Status: Acute Priority: High Code(s): I48.91 - UNSPECIFIED ATRIAL FIBRILLATION SNOMED Code(s): 948468671554111 (3) Pneumonia Current Visit: No Status: Acute Code(s): J18.9 - PNEUMONIA, UNSPECIFIED ORGANISM SNOMED Code(s): 381755259 (4) Cirrhosis Current Visit: No Status: Chronic Priority: Low Code(s): K74.60 - UNSPECIFIED CIRRHOSIS OF LIVER SNOMED Code(s): 94459334 (5) HCC (hepatocellular carcinoma) Current Visit: No Status: Chronic Priority: Medium Code(s): C22.0 - LIVER CELL CARCINOMA SNOMED Code(s): 575243002 (6) Hepatitis C Current Visit: No Status: Chronic Priority: Low Code(s): B19.20 - UNSPECIFIED VIRAL HEPATITIS C WITHOUT HEPATIC COMA SNOMED Code(s): 50782862 (7) Pancytopenia Current Visit: No Status: Chronic Priority: Medium Code(s): D61.818 - OTHER PANCYTOPENIA SNOMED Code(s): 171050982 Plan: #Pancytopenia -Noted to have neutropenia consistent with lymphopenia, likely due to prior history of hepatitis C in addition to acute inflammation from underlying pneumonia -Current hemoglobin and platelet levels are stable from previous measurements with normocytic anemia and thrombocytopenia -Anemia is likely due to inflammation of chronic disease due to underlying cirrhosis superimposed on acute inflammation from pneumonia -Thrombocytopenia is due to splenic sequestration from portal 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 HIV and DIC workup were negative at that time -Given the current cell counts are stable and recent workup being performed, no additional workup is required at this time -I anticipate his neutropenia to improve with underlying treatment of his pneumonia #Atrial fibrillation -Currently on amiodarone and Eliquis per cardiology and is currently in sinus rhythm -Cardiology currently determining whether MAHESH with cardioversion is necessary -Given his current renal function with creatinine greater than 1.5 in addition to increased risk of bleeding from thrombocytopenia and prior history of esophageal varices, prophylactic dose of Eliquis at 2.5 mg twice daily could be considered. We will defer final decision to cardiology and primary teams #Vitamin B12/iron deficiency -Has been undergoing treatment for vitamin B12 deficiency with vitamin B12 injections every 2 months -Next injection due on 03/15/2023 at 10:30 AM in our clinic -Iron deficiency previously was likely due to microscopic blood loss from esophageal varices -As noted previously, workup done at the beginning of February 2023 revealed normal iron and vitamin B12 levels #Pneumonia -Treatment per primary and pulmonology teams #HCC -Noted to be undergoing surveillance through his crowd controller Dr. Mckeon No additional workup or management from a hematology perspective is required at this time. He has appointment for vitamin B12 injection on 03/15/2023 at 10:30 AM at our [facility] in addition to follow-up with his primary airplane refueler Dr. Guy on 05/24/2023 at 11:15 AM at our [facility]. We remain available if additional questions or concerns arise and will continue to follow Nelson Abbott MD
[2023-03-09 16:41] LABS: Glucose,Whole Blood 159 mg/dL (70-110)
--- NOTE | 2023-03-09 18:56 | P.PN ---
Subjective Progress Note Date: 03/09/23 Progress note: Patient is doing well from cardiac vessel standpoint. He is in normal sinus rhythm. Blood pressure 159/69, pulse 58, BUN 70, creatinine 1.86. Yesterday creatinine was 2.3. His platelets are low therefore we will reduce his Eliquis 2.5 mg He appears euvolemic on oral diuretics His resting heart rate is in the lower side but blood pressure is on the higher side. He does have moderate aortic regurgitation and moderate to severe aortic stenosis He also has thrombocytopenia with platelets of 46, hb 11 PHYSICAL EXAM: VITAL SIGNS: Reviewed. GENERAL: Well-developed in no acute distress. HEENT: Head is normocephalic. Pupils are equal, round. Sclerae anicteric. Mucous membranes of the mouth are moist. Neck supple. No JVD or thyromegaly LUNGS: Respirations even and unlabored. Lungs with decreased air exchange noted. HEART: Regular rate and rhythm. S1 and S2 heard. + systolic murmur ABDOMEN: Soft. Nondistended. Nontender. EXTREMITIES: Normal range of motion. No clubbing or cyanosis. Peripheral pulses intact. No lower extremity edema NEUROLOGIC: Awake and alert. Oriented x 3. ASSESSMENT: Bilateral pneumonia Acute exacerbation of COPD Chest pain, likely secondary to above, acute coronary syndrome ruled out Chronic heart failure with reduced ejection fraction, currently euvolemic Paroxysmal atrial fibrillation, currently maintaining sinus mechanism Moderate to severe aortic stenosis, per echo in December 2022 Possible bicuspid aortic valve Moderate aortic regurgitation Relatively normal coronary arteries other than mid LAD 30% stenosis, per cardiac catheterization in June 2022 Nonischemic cardiomyopathy, EF 30-35% Patent foraman ovale Acute on chronic kidney disease 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 Patient h as converted to sinus mechanism with initiation of oral amiodarone at recent cardiology office visit. Patient will not require cardioversion. However MAHESH was also scheduled to evaluate aortic valve. We'll defer to patient's primary director of audiology, Dr. Post, if he will still require outpatient MAHESH. Discontinue metoprolol. Begin carvedilol 6.25 mg twice a day due to elevated blood pressure and low resting heart rate. Continue Imdur 30 mg daily, and hydralazine 100 mg 3 times a day Reduce Eliquis 22.5 mg twice a day due to thrombocytopenia Continue amiodarone Continue Lasix 40 mg twice a day by mouth Continue amlodipine 10 mg daily Treatment of pneumonia per primary medicine Pulmonary following. Patient receiving IV steroids for COPD exacerbation Cardiology team will sign off at this time. Patient is stable from cardiac vessel standpoint. Please reconsult us in case of any questions. Objective - Vital Signs Vital signs: Vital Signs Temp 97.9 F 03/09/23 16:00 Pulse 62 03/09/23 16:25 Resp 16 03/09/23 16:00 BP 145/71 03/09/23 16:00 Pulse Ox 96 03/09/23 16:00 FiO2 Intake & Output 03/08/23 03/09/23 03/09/23 18:59 06:59 18:59 Intake Total 1185 540 720 Output Total 0 Balance 1185 540 720 Intake: Oral 1185 540 720 Output: Gastric Drainage 0 Urine 0 Stool 0 Urine/Stool Mix 0 Emesis 0 Oral Regurgitation 0 Other 0 Other: Voiding Method Toilet Toilet # Voids 1 1 0 # Bowel Movements 0 - Labs CBC & Chem 7: 03/09/23 10:58 03/09/23 10:58 Labs: Abnormal Lab Results - Last 24 Hours (Table) 03/08/23 03/08/23 03/09/23 Range/Units 14:29 20:13 06:11 WBC (3.8-10.6) k/uL RBC (4.30-5.90) m/uL Hgb (13.0-17.5) gm/dL Hct (39.0-53.0) % RDW (11.5-15.5) % Plt Count (150-450) k/uL Lymphocytes # (1.0-4.8) k/uL Potassium (3.5-5.1) mmol/L BUN (9-20) mg/dL Creatinine (0.66-1.25) mg/dL Glucose (74-99) mg/dL POC Glucose (mg/dL) 173 H 155 H (70-110) mg/dL Albumin (3.5-5.0) g/dL Hep C IgG Ab Reactive A (Non-Reactive) 03/09/23 03/09/23 03/09/23 Range/Units 10:58 10:58 11:26 WBC 1.7 L (3.8-10.6) k/uL RBC 3.99 L (4.30-5.90) m/uL Hgb 11.2 L (13.0-17.5) gm/dL Hct 34.8 L (39.0-53.0) % RDW 16.8 H (11.5-15.5) % Plt Count 46 L (150-450) k/uL Lymphocytes # 0.1 L (1.0-4.8) k/uL Potassium 3.2 L (3.5-5.1) mmol/L BUN 70 H (9-20) mg/dL Creatinine 1.86 H (0.66-1.25) mg/dL Glucose 149 H (74-99) mg/dL POC Glucose (mg/dL) 145 H (70-110) mg/dL Albumin 3.4 L (3.5-5.0) g/dL Hep C IgG Ab (Non-Reactive) 03/09/23 Range/Units 16:39 WBC (3.8-10.6) k/uL RBC (4.30-5.90) m/uL Hgb (13.0-17.5) gm/dL Hct (39.0-53.0) % RDW (11.5-15.5) % Plt Count (150-450) k/uL Lymphocytes # (1.0-4.8) k/uL Potassium (3.5-5.1) mmol/L BUN (9-20) mg/dL Creatinine (0.66-1.25) mg/dL Glucose (74-99) mg/dL POC Glucose (mg/dL) 159 H (70-110) mg/dL Albumin (3.5-5.0) g/dL Hep C IgG Ab (Non-Reactive) Microbiology - Last 24 Hours (Table) 03/07/23 13:31 Blood Culture - Preliminary Blood 03/07/23 13:31 Blood Culture - Preliminary Blood 03/08/23 11:26 Gram Stain - Preliminary Sputum
--- NOTE | 2023-03-09 20:07 | PN ---
PROGRESS NOTE DATE OF SERVICE: 03/09/2023 SUBJECTIVE: This is a 73-year-old gentleman, who was admitted with shortness of breath with COPD acute exacerbation and bilateral pneumonia, left more than right, is being closely monitored. The patient is on IV antibiotics. No chest pain. No palpitations. No fever. X-rays showed some improvement, but clinically he still has some crackles felt on the left lower chest. Cultures are negative. The patient had leukopenia and pancytopenia possibly related to liver disease. PAST MEDICAL HISTORY: Reviewed. REVIEW OF SYSTEMS: A 14-point review is negative. CURRENT MEDICATIONS: Reviewed include Rocephin IV. Dose and rest of medications noted. PHYSICAL EXAMINATION: VITAL SIGNS: Pulse 58, blood pressure 159/70, respirations 18. CHEST: A few scattered rhonchi and crackles. ABDOMEN: Soft, nontender. NERVOUS SYSTEM: Nonfocal. LABORATORY DATA: Creatinine 1.86, which is improving and pancytopenia. White count 1.7. ASSESSMENT: 1. Shortness of breath, possible chronic obstructive pulmonary disease acute exacerbation. 2. Acute bilateral pneumonia, possibly gram-negative, left more than the right. 3. Chronic kidney disease, stage 3. 4. Troponin 0.06, indeterminate. Rule out acute [id number]-elevation myocardial infarction. 5. Mild pancytopenia. 6. History of congestive heart failure. 7. Hypertension. 8. Hyperlipidemia. 9. History of chronic hepatitis C, hepatocellular carcinoma, and chronic liver disease. 10.Complex medical issues multiple. 11.Likely to be acute coronary syndrome per Cardiology. RECOMMENDATIONS: Recommend to continue current management. Continue symptomatic treatment with antibiotics. Repeat labs. Otherwise, Cardiology has seen the patient and recommend to continue current medications. Unlikely to be due to acute coronary syndrome per Cardiology. See orders for further details. Further recommendations to follow. Continue with antibiotics. MMODL / IJN: [id number] /
[2023-03-09] MEDS: APIXABAN 2.5 MG TABLET PO SCH (21:22)
[2023-03-09] MEDS: traZODone HCL 50 MG TAB PO SCH (21:23)
[2023-03-09] MEDS: DRY MOUTH SPRAY 44.3 SPRAY/44.3 ML SPRAY MUCOUS MEM SCH (21:23)
[2023-03-10] MEDS: HYDROcodone/APAP 5-325MG 1 EACH TAB PO PRN (03:41)
[2023-03-10] MEDS: INSULIN ASPART (NovoLOG) 100 UNIT/ML VIAL SQ SCH (06:32)
[2023-03-10] MEDS: carvediloL 6.25 MG TAB PO SCH (06:32)
[2023-03-10] MEDS: PANTOPRAZOLE 40 MG TABLET PO SCH (06:32)
[2023-03-10] MEDS: IPRATROPIUM-ALBUTEROL 3 ML NEB INHALATION SCH ×2 (08:10→12:15)
[2023-03-10] MEDS: SYMBICORT 80-4.5 MCG INHALER INHALATION SCH ×2 (08:10→08:23)
[2023-03-10] MEDS: APIXABAN 2.5 MG TABLET PO SCH (08:42)
[2023-03-10] MEDS: FOLIC ACID 1 MG TAB PO SCH (08:42)
[2023-03-10] MEDS: hydrALAZINE HCL 50 MG TAB PO SCH (08:42)
[2023-03-10] MEDS: FUROSEMIDE 40 MG TAB PO SCH (08:42)
[2023-03-10] MEDS: AMIODARONE 200 MG TAB PO SCH (08:42)
[2023-03-10] MEDS: ISOSORBIDE MONONITRATE ER 30 MG TAB.ER.24H PO SCH (08:43)
[2023-03-10] MEDS: CHOLECALCIFEROL 25 MCG (1000 IU) TABLET PO SCH (08:43)
[2023-03-10] MEDS: amLODIPine 10 MG TAB PO SCH (08:43)
[2023-03-10] MEDS: FERROUS SULFATE 325 MG TAB PO SCH (08:44)
[2023-03-10] MEDS: MULTIVITAMINS, THERA 1 EACH TAB PO SCH (08:44)
[2023-03-10] MEDS: COLCHICINE 0.6 MG EACH PO SCH (08:51)
[2023-03-10] MEDS ORDERED: predniSONE 20 MG TAB PO SCH (09:00)
[2023-03-10 09:03] VITALS: BP 161/75; PULSE 58; RESP 16; TEMP 97.9
[2023-03-10 12:25] LABS: African American GFR (CKD) 41 (>60 ml/min/1.73 sqM); Anion Gap 14 mmol/L; Blood Urea Nitrogen 90 mg/dL (9-20); Calcium 8.7 mg/dL (8.4-10.2); Carbon Dioxide 23 mmol/L (22-30); Chloride 101 mmol/L (98-107); Glucose 95 mg/dL (74-99); Non-African American GFR(CKD) 35 (>60 ml/min/1.73 sqM); Potassium 3.5 mmol/L (3.5-5.1); Sodium 138 mmol/L (137-145)
[2023-03-10 12:31] LABS: Anisocytosis Slight; Basophils % (A) 0 %; Eosinophils % (A) 0 %; HCT 32.2 % (39.0-53.0); HGB 10.8 gm/dL (13.0-17.5); Lymphocytes # (A) 0.2 k/uL (1.0-4.8); Lymphocytes % (A) 8 %; MCH 29.2 pg (25.0-35.0); MCHC 33.5 g/dL (31.0-37.0); MCV 87.2 fL (80.0-100.0); Mean Platelet Volume 10.6; Monocytes # (A) 0.2 k/uL (0-1.0); Monocytes % (A) 7 %; Neutrophils # (A) 1.7 k/uL (1.3-7.7); Neutrophils % (A) 83 %; RBC 3.69 m/uL (4.30-5.90); RDW 16.8 % (11.5-15.5)
[2023-03-10 12:35] LABS: Platelet Count 61 k/uL (150-450)
[2023-03-10] MEDS ORDERED: SYMBICORT 160-4.5 MCG INHALER INHALATION SCH (20:00)
--- NOTE | 2023-03-10 21:13 | PN ---
PROGRESS NOTE DATE OF SERVICE: 03/10/2023 SUBJECTIVE: This is a 73-year-old male, who is seen in room 382. The patient appears to be doing relatively well. The patient is on room air. The patient is getting saline at 20 mL an hour. The patient was hoping to be discharged if possible. We will leave that up to the primary service, who is Dr. Franks's service. Currently, the patient is without complaints. He denies any shortness of breath, difficulty breathing, coughing, wheezing, or phlegm production. He also denies any chest pain or chest discomfort. LABORATORY DATA: Include a white count of 2, hemoglobin 10.8, hematocrit 32.2, and a platelet count of 61,000. Sodium 138, potassium 3.5, chloride 101, CO2 of 23, anion gap 14, BUN 90, and creatinine 1.87. Calcium is 8.7. OBJECTIVE: CURRENT VITAL SIGNS: Reviewed. Temperature 97.9, heart rate 58, respiratory rate 16, blood pressure 161/75 with a mean of 103, room air saturation 97%. GENERAL: He appears in no acute distress. HEENT: Grossly unremarkable. NECK: Supple, full range of motion. No adenopathy or thyromegaly. Neck veins are flat. CARDIOVASCULAR: Reveals regular rhythm and rate. S1 and S2 are normal. No S3, S4, or murmur. LUNGS: Reveal minimal scattered rhonchi. No wheezes or crackles. Breath sounds equal. Saturations are excellent on room air. ABDOMEN: Soft. Bowel sounds are heard. EXTREMITIES: Intact. No cyanosis, clubbing, or edema. SKIN: Without rash. NEUROLOGIC: Brief, but nonfocal. ASSESSMENT: 1. Acute hypoxemic respiratory failure secondary to suspected bilateral pneumonia. 2. Acute exacerbation of systolic congestive heart failure, in a patient with known history of impaired left ventricular systolic function and an ejection fraction of 35%. 3. Acute exacerbation of severe steroid-dependent chronic obstructive pulmonary disease. FEV1 is 59% of predicted. 4. Recent admission for congestive heart failure exacerbation. 5. Atrial fibrillation with rapid ventricular response. 6. History of pancytopenia. 7. History of znihutvu-tk-aotaen aortic stenosis. 8. Chronic tobacco dependence. 9. Hyperlipidemia. 10.Hypertension. 11.History of hepatocellular carcinoma. 12.History of parotid gland cancer, status post resection. Currently, the patient is seen in room 382. The patient is currently on room air. He is getting saline at 20 mL an hour. His labs are reviewed. He has been clinically stable for the last couple of days. Hemodynamically and respiratory renteria, no complaints. From the Pulmonary perspective, the patient could be considered for discharge. PARAMJIT / HALEY: [id number] /
--- NOTE | 2023-03-10 21:20 | DS ---
DISCHARGE SUMMARY FINAL DIAGNOSES: 1. Chronic obstructive pulmonary disease acute exacerbation. 2. Acute bilateral pneumonia with possibly gram-negative, left more than the right, improved. 3. Chronic kidney disease, stage III. 4. Troponin 0.06, indeterminate. 5. Myocardial infarction, acute coronary syndrome, ruled out per Cardiology. 6. Mild pancytopenia. 7. History of congestive heart failure. 8. Hypertension. 9. Hyperlipidemia. 10.History of chronic hepatitis C, hepatocellular carcinoma, and chronic liver disease. 11.Complex medical issues, multiple. DISCHARGE DISPOSITION: The patient will be discharged in stable condition, guarded prognosis. HISTORY OF PRESENT ILLNESS: This is a 73-year-old gentleman with COPD, pneumonia. The patient treated with antibiotics. Pulmonary and Cardiology saw the patient. Pulmonary cleared the patient for discharge. The patient is keen on going home. Acute coronary syndrome was ruled out per Cardiology. PHYSICAL EXAMINATION: VITAL SIGNS: Stable. CARDIOVASCULAR: S1, S2. RESPIRATIONS: A few scattered rhonchi. LABORATORY DATA: Currently the WBC 1.7, hemoglobin 11.2. The patient will be discharged in a stable condition. Guarded prognosis. DISCHARGE MEDICATIONS: 1. Ceftin 500 mg p.o. b.i.d. for 1 week. 2. Coreg 6.25 mg b.i.d. 3. Prednisone taper. 4. DuoNeb q.i.d. and p.r.n. 5. Imdur 30 mg daily. 6. Symbicort 160/4.5 two puffs b.i.d. FOLLOWUP: Follow up with Cardiology as recommended. Follow up with Dr. Medrano as recommended. MMODL / IJN: [id number] /
--- NOTE | 2023-03-12 11:59 | CDI ---
Documentation Clarification Form Date: 03/12/2023 11:47:38 AM From: Dagmar Bradley Admit Date: 03/03/2023 02:22:00 PM Patient Name: Maxine Acosta Visit Number: [id number] Discharge Date: 03/07/2023 04:04:00 PM ATTENTION: The Clinical Documentation Specialists (CDI) and [facility] Coding Staff appreciate your assistance in clarifying documentation. Please respond to the clarification below the line at the bottom and electronically sign. The CDI & [facility] Coding staff will review the response and follow-up if needed. Please note: Queries are made part of the Legal Health Record. If you have any questions, please contact the author of this message via ITS. Dr. Hillary Franks Conflicting documentation has been found in the medical record regarding POA status of UTI. On admit, 03/03, patient's UA is clear. On 03/05 Patient's UA was red and showing E coli infection. ID consult on 03/05 and patient was treated with Rocephin. PER DCS patient's UTI is documented as POA. As attending physician, please provide clarification if patient's UTI was POA or . E coli UTI present on admission E coli UTI developed after admit History/Risk Factors: Clinical Indicators: 03/05 positive UA and positive E coli Treatment: Rocephin Please clarify which diagnosis is most appropriate: [ ] E coli UTI present on admission [ ] E coli UTI developed after admit [ ] Other (please specify) [ ] Unable to determine E coli UTI present on admission MTDD
--- NOTE | 2023-03-17 21:07 | P.PN ---
Subjective Progress Note Date: 03/09/23 Principal diagnosis: Reason for follow-up is pneumonia Patient is a 73-year-old male with a past medical history significant for hypertension hyperlipidemia COPD history of chronic hepatitis C hepatocellular carcinoma patient presenting to the hospital for evaluation of chest pain and shortness of breath, patient was noticed to have a low-grade fever and a patchy basilar infiltrate concerning for pneumonia On today's evaluation that is 03/09/2023 the patient continues to be afebrile, the patient is breathing comfortably on room air and denies any shortness of breath, the patient denies chest pain and no worsening cough, patient denies abdominal pain, no nausea/vomiting or diarrhea. Patient did have white count of 1.7, creatinine is 1.86 Objective - Vital Signs Vital signs: Vital Signs Temp 97.6 F 03/09/23 11:59 Pulse 58 L 03/09/23 11:59 Resp 18 03/09/23 11:59 BP 159/69 03/09/23 11:59 Pulse Ox 95 03/09/23 11:59 FiO2 Intake & Output 03/08/23 03/09/23 03/09/23 18:59 06:59 18:59 Intake Total 1185 540 600 Output Total 0 Balance 1185 540 600 Intake: Oral 1185 540 600 Output: Gastric Drainage 0 Urine 0 Stool 0 Urine/Stool Mix 0 Emesis 0 Oral Regurgitation 0 Other 0 Other: Voiding Method Toilet Toilet # Voids 1 1 0 # Bowel Movements 0 - Exam GENERAL DESCRIPTION: An elderly male up in the chair in no distress RESPIRATORY SYSTEM: Unlabored breathing , decreased breath sound at the base HEART: S1 S2 regular rate and rhythm , ABDOMEN: Soft , no tenderness EXTREMITIES: No edema feet - Labs CBC & Chem 7: 03/10/23 10:31 03/10/23 10:31 Labs: Abnormal Lab Results - Last 24 Hours (Table) 03/08/23 03/08/23 03/08/23 Range/Units 09:01 14:29 16:11 WBC (3.8-10.6) k/uL RBC (4.30-5.90) m/uL Hgb (13.0-17.5) gm/dL Hct (39.0-53.0) % RDW (11.5-15.5) % Plt Count (150-450) k/uL Lymphocytes # (1.0-4.8) k/uL Potassium (3.5-5.1) mmol/L BUN (9-20) mg/dL Creatinine (0.66-1.25) mg/dL Glucose (74-99) mg/dL POC Glucose (mg/dL) 203 H (70-110) mg/dL Albumin (3.5-5.0) g/dL HDL Cholesterol 39.90 L (40.00-60.00) mg/dL Hep C IgG Ab Reactive A (Non-Reactive) 03/08/23 03/09/23 03/09/23 Range/Units 20:13 06:11 10:58 WBC 1.7 L (3.8-10.6) k/uL RBC 3.99 L (4.30-5.90) m/uL Hgb 11.2 L (13.0-17.5) gm/dL Hct 34.8 L (39.0-53.0) % RDW 16.8 H (11.5-15.5) % Plt Count 46 L (150-450) k/uL Lymphocytes # 0.1 L (1.0-4.8) k/uL Potassium (3.5-5.1) mmol/L BUN (9-20) mg/dL Creatinine (0.66-1.25) mg/dL Glucose (74-99) mg/dL POC Glucose (mg/dL) 173 H 155 H (70-110) mg/dL Albumin (3.5-5.0) g/dL HDL Cholesterol (40.00-60.00) mg/dL Hep C IgG Ab (Non-Reactive) 03/09/23 03/09/23 Range/Units 10:58 11:26 WBC (3.8-10.6) k/uL RBC (4.30-5.90) m/uL Hgb (13.0-17.5) gm/dL Hct (39.0-53.0) % RDW (11.5-15.5) % Plt Count (150-450) k/uL Lymphocytes # (1.0-4.8) k/uL Potassium 3.2 L (3.5-5.1) mmol/L BUN 70 H (9-20) mg/dL Creatinine 1.86 H (0.66-1.25) mg/dL Glucose 149 H (74-99) mg/dL POC Glucose (mg/dL) 145 H (70-110) mg/dL Albumin 3.4 L (3.5-5.0) g/dL HDL Cholesterol (40.00-60.00) mg/dL Hep C IgG Ab (Non-Reactive) Microbiology - Last 24 Hours (Table) 03/08/23 11:26 Gram Stain - Preliminary Sputum 03/07/23 13:31 Blood Culture - Preliminary Blood 03/07/23 13:31 Blood Culture - Preliminary Blood Assessment and Plan (1) Pneumonia Status: Acute Code(s): J18.9 - PNEUMONIA, UNSPECIFIED ORGANISM SNOMED Code(s): 266189545 Plan: 1patient was in the hospital with a increasing shortness of breath Along with chest pain which is likely multifactorial in this patient with likely COPD exac erbation tracheobronchitis and complaint of pneumonia on the basis chest x-ray finding likely community-acquired 2- sputum for Gram stain culture pending , procalcitonin level 0.19 3-patient to continue Rocephin 1 g daily while waiting for the culture to finalize and monitor clinical course closely Dictation was produced using [employer] dictation software. please excuse any grammatical, word or spelling errors. Time with Patient: Less than 30
--- NOTE | 2023-03-17 21:11 | P.PN ---
Subjective Progress Note Date: 03/10/23 Principal diagnosis: Reason for follow-up is pneumonia Patient is a 73-year-old male with a past medical history significant for hypertension hyperlipidemia COPD history of chronic hepatitis C hepatocellular carcinoma patient presenting to the hospital for evaluation of chest pain and shortness of breath, patient was noticed to have a low-grade fever and a patchy basilar infiltrate concerning for pneumonia On today's evaluation that is 03/10/2023 the patient denies any fever or any chills, the patient denies shortness of breath chest pain and the patient cough is decreased intensity mostly dry in nature, the patient nausea/vomiting or diarrhea and no abdominal pain. Feeling better and wants to go home Patient did have white count of 2.0, creatinine is 1.87 Objective - Vital Signs Vital signs: Vital Signs Temp 97.9 F 03/10/23 08:30 Pulse 58 L 03/10/23 08:30 Resp 16 03/10/23 08:30 BP 161/75 03/10/23 08:30 Pulse Ox 97 03/10/23 08:30 FiO2 Intake & Output 03/09/23 03/10/23 03/10/23 18:59 06:59 18:59 Intake Total 720 360 Output Total 0 Balance 720 360 Intake: Oral 720 360 Output: Gastric Drainage 0 Urine 0 Stool 0 Urine/Stool Mix 0 Emesis 0 Oral Regurgitation 0 Other 0 Other: Voiding Method Toilet Toilet Toilet # Voids 0 2 8 # Bowel Movements 0 - Exam GENERAL DESCRIPTION: An elderly male up in the chair in no distress RESPIRATORY SYSTEM: Unlabored breathing , decreased breath sound at the base HEART: S1 S2 regular rate and rhythm , ABDOMEN: Soft , no tenderness EXTREMITIES: No edema feet - Labs CBC & Chem 7: 03/10/23 10:31 03/10/23 10:31 Labs: Abnormal Lab Results - Last 24 Hours (Table) 03/09/23 03/10/23 03/10/23 Range/Units 16:39 10:31 10:31 WBC 2.0 L (3.8-10.6) k/uL RBC 3.69 L (4.30-5.90) m/uL Hgb 10.8 L (13.0-17.5) gm/dL Hct 32.2 L (39.0-53.0) % RDW 16.8 H (11.5-15.5) % Plt Count 61 L (150-450) k/uL Lymphocytes # 0.2 L (1.0-4.8) k/uL BUN 90 H (9-20) mg/dL Creatinine 1.87 H (0.66-1.25) mg/dL POC Glucose (mg/dL) 159 H (70-110) mg/dL Microbiology - Last 24 Hours (Table) 03/07/23 13:31 Blood Culture - Preliminary Blood 03/07/23 13:31 Blood Culture - Preliminary Blood 03/08/23 11:26 Gram Stain - Preliminary Sputum Assessment and Plan (1) Pneumonia Status: Acute Code(s): J18.9 - PNEUMONIA, UNSPECIFIED ORGANISM SNOMED Code(s): 185252739 Plan: 1patient was in the hospital with a increasing shortness of breath Along with chest pain which is likely multifactorial in this patient with likely COPD exacerbation tracheobronchitis and complaint of pneumonia on the basis chest x- ray finding likely community-acquired 2- sputum for Gram stain culture ramón, procalcitonin level 0.19 3-patient to finish therapy with ceftin and close outpatient follow up Dictation was produced using [employer] dictation software. please excuse any grammatical, word or spelling errors. Time with Patient: Less than 30
== END 2023-03-10 12:39 | disposition home health service (06) | DRG 177 ==
LOC: EC 07:04 → 3SCARD 09:35
PROVIDERS: ADMIT Hospitalist; ATTEND Hospitalist
DX: J15.69 Pneumonia due to other Gram-negative bacteria (principal); I50.23 Acute on chronic systolic (congestive) heart failure; J96.01 Acute respiratory failure with hypoxia; C22.0 Liver cell carcinoma; D61.818 Other pancytopenia; I13.0 Hypertensive heart and chronic kidney disease with heart failure and stage 1 through stage 4 chronic kidney disease, or unspecified chronic kidney disease; I42.8 Other cardiomyopathies; I48.19 Other persistent atrial fibrillation; J44.0 Chronic obstructive pulmonary disease with (acute) lower respiratory infection; J44.1 Chronic obstructive pulmonary disease with (acute) exacerbation; N17.9 Acute kidney failure, unspecified; Q23.1 Congenital insufficiency of aortic valve; I71.23 Aneurysm of the descending thoracic aorta, without rupture; R79.89 Other specified abnormal findings of blood chemistry; E78.5 Hyperlipidemia, unspecified; K21.9 Gastro-esophageal reflux disease without esophagitis; K74.60 Unspecified cirrhosis of liver; N18.32 Chronic kidney disease, stage 3b; Z28.311 Partially vaccinated for COVID-19; Z87.891 Personal history of nicotine dependence; Z86.19 Personal history of other infectious and parasitic diseases; Z79.01 Long term (current) use of anticoagulants; Z79.52 Long term (current) use of systemic steroids; Z79.899 Other long term (current) drug therapy; Z80.9 Family history of malignant neoplasm, unspecified; Z85.818 Personal history of malignant neoplasm of other sites of lip, oral cavity, and pharynx; Z85.828 Personal history of other malignant neoplasm of skin; Z92.3 Personal history of irradiation
CPT/HCPCS: 36415; 71045; 71046; 80048; 80053; 80061; 80074; 81003; 83036; 83735; 83880; 84145; 84484; 85025; 85610; 85730; 87040; 87070; 87205; 87636; 93005; 94640; 94760; 96365; 96375; 99285

== ENCOUNTER → 2023-03-15 | Day surgery (SDC) | payer MEDICARE, OTHER ==
[2023-03-13 12:16] VITALS: BMI 26.5
[~2023-03-15] MED LIST changes: -LIDOCAINE 1% 20 ML VIAL (10MG/ML) FOR IV START INTRADERMA PRN; +MIDAZOLAM 2 MG/2 ML VIAL IVP ONE; +SODIUM CHLORIDE 0.9% 500 ML 500 ML IV ONE; +fentaNYL (PF) 50 MCG/ML 2 ML AMP IVP ONE; +fentaNYL (PF) 50 MCG/ML 2 ML AMP ONE
[2023-03-15] MEDS: BENZOCAINE SPRAY 1 CAN MUCOUS MEM ONE ×2 (12:10→12:22)
[2023-03-15 12:15] VITALS: RESP 16; TEMP 97.1
--- NOTE | 2023-03-15 14:01 | P.TEE ---
Description of Procedure(s): Procedure performed: Transesophageal Echocardiogram with color flow doppler, pulsed wave doppler and continuous wave doppler, moderate conscious sedation Moderate conscious sedation: Moderate conscious sedation was supplied with direct supervision of myself using Versed and Fentanyl. Complications: none Indications: Aortic stenosis, aortic insufficiency PROCEDURE: After the risks, benefits and alternatives of the above mentioned procedure was explained in detail with the patient, informed consent was obtained. Patient was brought to the lab in a fasting state. Patient was given IV Versed and Fentanyl for sedation. The throat was sprayed with Hurricane to anesthetize the throat. A lubricated Omni probe was then introduced into the esophagus and stomach and multiple views were obtained. 2D echo with color flow doppler, pulsed wave doppler and continuous wave doppler was utilized. Agitated saline bubbles were injected to assess for any intra-atrial shunt. The probe was then removed. Patient tolerated the procedure well. Patient was transferred to the post procedure area in stable and satisfactory condition. FINDINGS: 1. The aortic valve is bicuspid with fusion of the left and right cusps with moderate aortic stenosis with aortic valve area 1.3 cm by planimetry, moderate eccentric aortic insufficiency with no diastolic flow reversal, Pisa radius of 0.6 with a Nyquist limit of 37. 2. The mitral valve appears be normal with mild mitral regurgitation. 3. Tricuspid valve appears to be normal with mild tricuspid regurgitation. 4. The interatrial septum is intact. No evidence of PFO. 5. Left atrial appendage is free of clot. 6. Left ventricular ejection fraction is 50-55% 7. Left Atrium moderate to severely dilated
[2023-03-15 16:13] VITALS: BP 116/56; PULSE 50
== END ==
LOC: OR 11:11
PROVIDERS: ATTEND Internal Medicine
DX: I08.1 Rheumatic disorders of both mitral and tricuspid valves (principal); I48.0 Paroxysmal atrial fibrillation; I10 Essential (primary) hypertension; E78.5 Hyperlipidemia, unspecified; Z79.899 Other long term (current) drug therapy
CPT/HCPCS: 93312; 93320; 93325; 99152; J2250; J3010

== ENCOUNTER 2023-03-17 21:22 | Emergency (ER) | payer MEDICARE, OTHER ==
--- NOTE | 2023-03-17 21:57 | ED ---
SOB HPI - General Source: patient, RN notes reviewed Mode of arrival: EMS Limitations: no limitations <Gemma Clemente - Last Filed: 03/17/23 21:56> - History of Present Illness MD Complaint: shortness of breath Onset/Timin -: week(s) Severity scale (1-10): 0 Consistency: constant Improves With: rest Worsens With: exertion Associated Symptoms: denies other symptoms Treatments Prior to Arrival: none - Related Data Home Oxygen Therapy: No <Eduardo Arambula - Last Filed: 03/26/23 07:14> - General Chief Complaint: Shortness of Breath Stated Complaint: SOB Time Seen by Provider: 03/17/23 21:56 - History of Present Illness Initial Comments: patient is a 73-year-old male presenting via EMS with a chief complaint of shortness of breath. Patient denies any fevers or chills. Patient states she's been in the hospital with shortness of breath. Patient is normally not an option but is recently been on 2 L at home. (Gemma Clemente) Patient is a 73-year-old man who presents to evaluation for generalized weakness, fatigue, dyspnea that has been getting progressively worse over approximately one week. The patient states that he finds if he gets up and walks he becomes very short of breath. He has no exercise capacity at all now. The patient denies chest pain. No abdominal pain. When questioned about stools he states he always has dark stools because she takes iron. He has not noted any red blood. (Eduardo Arambula) - Related Data Home Medications Medication Instructions Recorded Confirmed amLODIPine [Norvasc] 10 mg PO DAILY 08/06/14 03/15/23 Colchicine 0.6 mg PO DAILY 08/02/16 03/15/23 Ferrous Sulfate [Iron (65 MG 325 mg PO DAILY 12/29/18 03/15/23 Elemental)] Omeprazole 20 mg PO BID 05/16/20 03/13/23 Fluticasone Propion/Salmeterol 1 puff INHALATION RT-BID 06/08/22 03/15/23 [Wixela 250-50 Inhub] hydrALAZINE HCL [Apresoline] 100 mg PO TID 06/08/22 03/13/23 Folic Acid 1 mg PO DAILY 01/14/23 03/15/23 Tiotropium 2.5 Mcg/Puff [Spiriva 1 puff INHALATION RT-BID 01/14/23 03/13/23 Respimat 2.5 Mcg] predniSONE 5 mg PO DAILY 01/14/23 03/15/23 traZODone HCL [Desyrel] 50 mg PO HS 01/14/23 03/15/23 Cholecalciferol [Vitamin D3 (25 25 mcg PO DAILY 02/11/23 03/15/23 Mcg = 1000 Iu)] Multivit-Min/FA/Lycopen/Lutein 1 tab PO DAILY 02/11/23 03/13/23 [Centrum Silver Tablet] Xylitol [Xylimelts] 500 mg MM HS 02/11/23 03/15/23 Amiodarone [Cordarone] See Taper PO DAILY 03/07/23 03/15/23 Apixaban [Eliquis] 5 mg PO BID 03/07/23 03/15/23 Previous Rx's Medication Instructions Recorded Furosemide [Lasix] 40 mg PO BID@0900,1600 #60 tab 02/18/23 Budesonide-Formot 160-4.5 Mcg 2 puff INHALATION RT-BID #1 each 03/10/23 [Symbicort 160-4.5 Mcg Inhaler] Ipratropium-Albuterol Nebulize 3 ml INHALATION RT-QID #120 each 03/10/23 [Duoneb 0.5 mg-3 mg/3 ml Soln] Isosorbide Mononitrate ER [Imdur] 30 mg PO DAILY #30 tab 03/10/23 cefUROXime axetiL [Ceftin] 500 mg PO BID 3 Days #6 tab 03/10/23 predniSONE 10 mg PO DIRECTED #30 tab 03/10/23 Allergies Allergy/AdvReac Type Severity Reaction Status Date / Time No Known Allergies Allergy Verified 03/17/23 21:40 Review of Systems ROS Other: All systems not noted in ROS Statement are negative. <Gemma Clemente - Last Filed: 03/17/23 21:56> ROS Other: All systems not noted in ROS Statement are negative. Constitutional: Reports: weakness. Denies: fever, chills Respiratory: Reports: dyspnea. Denies: cough, wheezes, hemoptysis Cardiovascular: Reports: edema. Denies: chest pain, palpitations, syncope Endocrine: Reports: fatigue Gastrointestinal: Reports: melena. Denies: nausea, vomiting, diarrhea, constipation Genitourinary: Denies: dysuria, hematuria Musculoskeletal: Denies: back pain Skin: Denies: rash Neurological: Denies: headache, weakness, numbness Hematological/Lymphatic: Denies: easy bleeding <TyeshaEduardo - Last Filed: 03/26/23 07:14> ROS Statement: Those systems with pertinent positive or pertinent negative responses have been documented in the HPI. 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 Hospitalized last week for CHF & Pneumonia. Irr. heart rate @ times. History of Any Multi-Drug Resistant Organisms: None Reported Past Surgical History: Back Surgery, Heart Catheterization, Hernia Repair, Orthopedic Surgery Additional Past Surgical History / Comment(s): liver ablation done at [place] for tx of hepatocellular carcinoma,hemorrhoids ,back surgery, cataract, skin cancer, inguinal hernia, abdominal hernia, left shoulder, right wrist, growth removed vocal cord, PAROTID GLAND REMOVED DUE TO CANCER. Past Anesthesia/Blood Transfusion Reactions: No Reported Reaction Additional Past Anesthesia/Blood Transfusion Reaction / Comment(s): no hx blood transfusion Past Psychological History: No Psychological Hx Reported Smoking Status: Former smoker Past Alcohol Use History: None Reported Past Drug Use History: None Reported - Past Family History Father Family Medical History: Cancer <Gemma Clemente - Last Filed: 03/17/23 21:56> General Exam Limitations: no limitations <Gemma Clemente - Last Filed: 03/17/23 21:56> General appearance: alert, in no apparent distress Head exam: Present: atraumatic, normocephalic Eye exam: Present: normal appearance Neck exam: Present: normal inspection Respiratory exam: Present: normal lung sounds bilaterally. Absent: respiratory distress, wheezes, rales, rhonchi, stridor Cardiovascular Exam: Present: regular rate, normal rhythm, normal heart sounds. Absent: systolic murmur, diastolic murmur, rubs, gallop GI/Abdominal exam: Present: soft. Absent: distended, tenderness, guarding, rebound, rigid, mass Extremities exam: Present: normal inspection, normal capillary refill, pedal edema. Absent: calf tenderness Back exam: Present: normal inspection. Absent: CVA tenderness (R), CVA tenderness (L) Neurological exam: Present: alert Skin exam: Present: warm, dry, intact, pallor. Absent: rash <Eduardo Arambula - Last Filed: 03/26/23 07:14> - General Exam Comments Initial Comments: Visual Physical Exam Vital signs reviewed General: Well-appearing, nontoxic, no acute distress. Head: Normocephalic, atraumatic Eyes: PERRLA, EOMI ENT: Airway patent Chest: Nonlabored breathing Skin: No visual rash, normal skin tone Neuro: Alert and oriented 3 Musculoskeletal: No gross abnormalities (Gemma Clemente) Course Vital Signs 03/17/23 03/18/23 03/18/23 21:37 01:56 02:04 Temperature 96.8 F L 97.6 F Pulse Rate 72 74 68 Respiratory 22 18 20 Rate Blood Pressure 127/56 147/68 141/63 O2 Sat by Pulse 96 98 96 Oximetry 03/18/23 03/18/23 03/18/23 04:16 04:26 04:46 Temperature 98.1 F 98.2 F 98.1 F Pulse Rate 64 70 64 Respiratory 16 16 18 Rate Blood Pressure 113/54 121/56 123/54 O2 Sat by Pulse Oximetry 03/18/23 03/18/23 03/18/23 05:20 06:59 08:00 Temperature 97.9 F 98 F Pulse Rate 63 62 66 Respiratory 16 16 16 Rate Blood Pressure 135/59 129/66 147/60 O2 Sat by Pulse 97 95 99 Oximetry 03/18/23 08:54 Temperature Pulse Rate 70 Respiratory 20 Rate Blood Pressure 140/60 O2 Sat by Pulse 99 Oximetry Medical Decision Making <Gemma Clemente - Last Filed: 03/17/23 21:56> - Lab Data Result diagrams: 03/18/23 01:41 03/18/23 00:32 - EKG Data -: EKG Interpreted by Ar EKG shows normal: sinus rhythm, axis (Normal), intervals (Normal) Rate: normal (Rate 73 bpm) <Eduardo Arambula - Last Filed: 03/26/23 07:14> - Medical Decision Making I performed the quick note portion of the exam. Electronically signed by Gemma Clemente PA-C (Gemma Clemente) This patient is 73-year-old man with history of previous hepatitis C, previous endoscopy showed mild varices in 2019. He presents today with progressive exertional dyspnea generalized weakness and fatigue. Patient found to be moderately anemic. Stool is occult blood positive. Given degree of anemia and symptoms transfusion is started. Case discussed with internal medicine here and there is no gastroenterology coverage so patient will be transferred. Case discussed with patient and he is open to transfer we did find a bed at [facility] and they will accept transfer Was pt. sent in by a medical professional or institution (, [facility], [facility], urgent care, hospital, or intermediate...) When possible be specific @ -[No] Did you speak to anyone other than the patient for history (EMS, parent, family, police, friend...)? What history was obtained from this source @ -[No] Did you review nursing and triage notes (agree or disagree)? Why? @ -[I reviewed and agree with nursing and triage notes] Were old charts reviewed (outside hosp., previous admission, EMS record, old EKG, old radiological studies, urgent care reports/EKG's, intermediate records)? Report findings @ -[No old charts were reviewed] Differential Diagnosis (chest pain, altered mental status, abdominal pain women, abdominal pain men, vaginal bleeding, weakness, fever, dyspnea, syncope, headache, dizziness, GI bleed, back pain, seizure, CVA, palpatations, mental health, musculoskeletal)? @ -[Differential GI Bleed: Esophageal varices, aortoenteric fistula, Nell-Fong, gastritis, peptic ulcer disease, diverticulosis, inflammatory bowel disease, hemorrhoids, fissure, colitis, malignancy, Meckels diverticulum, this is not meant to be an all- inclusive list. EKG interpreted by me (3pts min.). @ -[As above] X-rays interpreted by me (1pt min.). @ -[None done] CT interpreted by me (1pt min.). @ -[None done] U/S interpreted by me (1pt. min.). @ -[None done] What testing was considered but not performed or refused? (CT, X-rays, U/S, labs)? Why? @ -[None] What meds were considered but not given or refused? Why? @ -[None] Did you discuss the management of the patient with other professionals (professionals i.e. , PA, [facility] [employer], lab, RT, psych nurse, social media assistant, welding setter, teacher, chief innovation officer, clinical case manager)? Give summary @ -[Case was discussed with internal medicine here and then with the food and beverage coordinator at the receiving hospital Was smoking cessation discussed for >3mins.? @ -[No] Was critical care preformed (if so, how long)? @ -[Yes 40 minutes Were there social determinants of health that impacted care today? How? (Homelessness, low income, unemployed, alcoholism, drug addiction, tra nsportation, low edu. Level, literacy, decrease access to med. care, fdc, rehab)? @ -[No] Was there de-escalation of care discussed even if they declined (Discuss DNR or withdrawal of care, Hospice)? DNR status @ -[No] What co-morbidities impacted this encounter? (DM, HTN, Smoking, COPD, CAD, Cancer, CVA, ARF, Chemo, Hep., AIDS, mental health diagnosis, sleep apnea, morbid obesity)? @ -[None] Was patient admitted / discharged? Hospital course, mention meds given and route, prescriptions, significant lab abnormalities, going to OR and other pertinent info. @ -[As above, patient also received IV Protonix Undiagnosed new problem with uncertain prognosis? @ -[No] Drug Therapy requiring intensive monitoring for toxicity (Heparin, Nitro, Insulin, Cardizem)? @ -[Blood administration Were any procedures done? @ -[No] Diagnosis/symptom? @ -[Acute GI bleeding Acute anemia Elevated troponin Acute covid 19 infection Acute kidney injury Acute, or Chronic, or Acute on Chronic? @ -Acute Uncomplicated (without systemic symptoms) or Complicated (systemic symptoms)? @ -[Complicated Side effects of treatment? @ -[No] Exacerbation, Progression, or Severe Exacerbation? @ -[No] Poses a threat to life or bodily function? How? (Chest pain, [place], [place], pneumonia, PE, COPD, DKA, ARF, appy, cholecystitis, CVA, Diverticulitis, Homicidal, Suicidal, threat to staff... and all critical care pts) @ -[Yes untreated GI bleeding may worsen to severe anemia/organ failure/ (Eduardo Arambula) - Lab Data Lab Results 03/17/23 03/18/23 03/18/23 Range/Units 22:20 00:32 00:32 WBC 10.7 H (3.8-10.6) k/uL RBC 1.85 L (4.30-5.90) m/uL Hgb 5.5 L* D (13.0-17.5) gm/dL Hct 16.4 L* (39.0-53.0) % MCV 89.0 (80.0-100.0) fL MCH 29.7 (25.0-35.0) pg MCHC 33.4 (31.0-37.0) g/dL RDW 22.3 H (11.5-15.5) % Plt Count 170 D (150-450) k/uL MPV 9.6 Neutrophils % (Manual) 81 % Band Neuts % (Manual) 14 % Lymphocytes % (Manual) 2 % Monocytes % (Manual) 3 % Neutrophils # (Manual) 10.10 H (1.3-7.7) k/uL Lymphocytes # (Manual) 0.21 L (1.0-4.8) k/uL Monocytes # (Manual) 0.32 (0-1.0) k/uL Nucleated RBCs 0 (0-0) /100 WBC Manual Slide Review Performed Polychromasia Present Hypochromasia Slight Poikilocytosis Moderate Anisocytosis Moderate Macrocytosis Slight PT 11.4 (10.0-12.5) sec INR 1.0 (<1.2) APTT 26.0 (22.0-30.0) sec Sodium (137-145) mmol/L Potassium (3.5-5.1) mmol/L Chloride (98-107) mmol/L Carbon Dioxide (22-30) mmol/L Anion Gap mmol/L BUN (9-20) mg/dL Creatinine (0.66-1.25) mg/dL Est GFR (CKD-EPI)AfAm (>60 ml/min/1.73 sqM) Est GFR (CKD-EPI)NonAf (>60 ml/min/1.73 sqM) Glucose (74-99) mg/dL Calcium (8.4-10.2) mg/dL Total Bilirubin (0.2-1.3) mg/dL AST (17-59) U/L ALT (4-49) U/L Alkaline Phosphatase (38-126) U/L Troponin I (0.000-0.034) ng/mL Total Protein (6.3-8.2) g/dL Albumin (3.5-5.0) g/dL Stool Occult Blood (Negative) Influenza Type A (PCR) Not Detected (Not Detectd) Influenza Type B (PCR) Not Detected (Not Detectd) RSV (PCR) Not Detected (Not Detectd) SARS-CoV-2 (PCR) Detected A (Not Detectd) Blood Type Blood Type Recheck Bld Type Recheck Status Antibody Screen Crossmatch Spec Expiration Date 03/18/23 03/18/23 03/18/23 Range/Units 00:32 00:32 01:41 WBC 12.2 H (3.8-10.6) k/uL RBC 2.28 L (4.30-5.90) m/uL Hgb 6.7 L* (13.0-17.5) gm/dL Hct 20.2 L (39.0-53.0) % MCV 88.5 (80.0-100.0) fL MCH 29.4 (25.0-35.0) pg MCHC 33.2 (31.0-37.0) g/dL RDW 21.9 H (11.5-15.5) % Plt Count 175 (150-450) k/uL MPV 11.2 Neutrophils % (Manual) % Band Neuts % (Manual) % Lymphocytes % (Manual) % Monocytes % (Manual) % Neutrophils # (Manual) (1.3-7.7) k/uL Lymphocytes # (Manual) (1.0-4.8) k/uL Monocytes # (Manual) (0-1.0) k/uL Nucleated RBCs (0-0) /100 WBC Manual Slide Review Polychromasia Hypochromasia Slight Poikilocytosis Moderate Anisocytosis Moderate Macrocytosis Slight PT (10.0-12.5) sec INR (<1.2) APTT (22.0-30.0) sec Sodium 135 L (137-145) mmol/L Potassium 3.5 (3.5-5.1) mmol/L Chloride 99 (98-107) mmol/L Carbon Dioxide 25 (22-30) mmol/L Anion Gap 11 mmol/L BUN 100 H (9-20) mg/dL Creatinine 2.38 H (0.66-1.25) mg/dL Est GFR (CKD-EPI)AfAm 30 (>60 ml/min/1.73 sqM) Est GFR (CKD-EPI)NonAf 26 (>60 ml/min/1.73 sqM) Glucose 101 H (74-99) mg/dL Calcium 8.3 L (8.4-10.2) mg/dL Total Bilirubin 0.9 (0.2-1.3) mg/dL AST 83 H (17-59) U/L ALT 59 H (4-49) U/L Alkaline Phosphatase 70 (38-126) U/L Troponin I 0.073 H* (0.000-0.034) ng/mL Total Protein 5.8 L (6.3-8.2) g/dL Albumin 3.3 L (3.5-5.0) g/dL Stool Occult Blood (Negative) Influenza Type A (PCR) (Not Detectd) Influenza Type B (PCR) (Not Detectd) RSV (PCR) (Not Detectd) SARS-CoV-2 (PCR) (Not Detectd) Blood Type Blood Type Recheck Bld Type Recheck Status Antibody Screen Crossmatch Spec Expiration Date 03/18/23 03/18/23 Range/Units 01:48 06:09 WBC (3.8-10.6) k/uL RBC (4.30-5.90) m/uL Hgb (13.0-17.5) gm/dL Hct (39.0-53.0) % MCV (80.0-100.0) fL MCH (25.0-35.0) pg MCHC (31.0-37.0) g/dL RDW (11.5-15.5) % Plt Count (150-450) k/uL MPV Neutrophils % (Manual) % Band Neuts % (Manual) % Lymphocytes % (Manual) % Monocytes % (Manual) % Neutrophils # (Manual) (1.3-7.7) k/uL Lymphocytes # (Manual) (1.0-4.8) k/uL Monocytes # (Manual) (0-1.0) k/uL Nucleated RBCs (0-0) /100 WBC Manual Slide Review Polychromasia Hypochromasia Poikilocytosis Anisocytosis Macrocytosis PT (10.0-12.5) sec INR (<1.2) APTT (22.0-30.0) sec Sodium (137-145) mmol/L Potassium (3.5-5.1) mmol/L Chloride (98-107) mmol/L Carbon Dioxide (22-30) mmol/L Anion Gap mmol/L BUN (9-20) mg/dL Creatinine (0.66-1.25) mg/dL Est GFR (CKD-EPI)AfAm (>60 ml/min/1.73 sqM) Est GFR (CKD-EPI)NonAf (>60 ml/min/1.73 sqM) Glucose (74-99) mg/dL Calcium (8.4-10.2) mg/dL Total Bilirubin (0.2-1.3) mg/dL AST (17-59) U/L ALT (4-49) U/L Alkaline Phosphatase (38-126) U/L Troponin I (0.000-0.034) ng/mL Total Protein (6.3-8.2) g/dL Albumin (3.5-5.0) g/dL Stool Occult Blood Positive (Negative) Influenza Type A (PCR) (Not Detectd) Influenza Type B (PCR) (Not Detectd) RSV (PCR) (Not Detectd) SARS-CoV-2 (PCR) (Not Detectd) Blood Type O Positive Blood Type Recheck O Pos Bld Type Recheck Status No Antibody Screen NEGATIVE Crossmatch See Detail Spec Expiration Date 03/21/2023 - 2347 Disposition <Gemma Clemente - Last Filed: 03/17/23 21:56> - Out of Hospital Transfer - Req. Specs Out of Hospital Transfer - Requested Specifics: Other Emergency Center <Eduardo Arambula - Last Filed: 03/26/23 07:14> Clinical Impression: Elevated troponin, GI bleeding, Anemia, Acute kidney injury, COVID-19 Disposition: OTHER INSTITUTION NOT DEFINED Condition: Fair Referrals: Drew Medrano MD [Primary Care Provider] - 1-2 days
--- NOTE | 2023-03-18 00:34 | XR ---
EXAMINATION TYPE: XR chest 2V DATE OF EXAM: 03/17/2023 9:50 PM CLINICAL INDICATION:Male, 73 years old with history of shortness of breath.; [facility] COMPARISON: 03/09/2023 and before TECHNIQUE: XR chest 2V. Frontal PA and lateral views of the chest. FINDINGS: Lines/Tubes/Devices: No indwelling lines are seen. There is a snap or EKG electrode projected over the proximal right cori fely. Multiple surgical clips over the right base of neck. Large surgical anchor/staple over the left humeral head. Heart/mediastinum: Cardiomediastinal silhouette appears stable. Heart appears mildly enlarged. Tortuo sity and ectasia of the aorta with partial wall calcification. Pulmonary vascularity: Not increased, Lungs/Pleura: Hyperinflation with interstitial coarsening again noted suggestive of COPD/emphysema. M ostly linear opacities in the left greater than right lung base, suggestive of atelectasis and/or inf iltrate. Mild blunting of the left costophrenic angle. Right costophrenic angle appears relatively sh anthony. No evidence of pneumothorax. Musculoskeletal: No acute osseous abnormality demonstrated in the limits of the exam. Mild degenerat mago changes of the spine and shoulders. Other findings: None. IMPRESSION: Bibasilar atelectasis and/or infiltrate, left greater than right.
[2023-03-18 01:06] LABS: Anisocytosis Moderate; Hypochromasia Slight; MCH 29.7 pg (25.0-35.0); MCHC 33.4 g/dL (31.0-37.0); Macrocytosis Slight; Mean Platelet Volume 9.6; Poikilocytosis Moderate; RBC 1.85 m/uL (4.30-5.90); RDW 22.3 % (11.5-15.5); WBC 10.7 k/uL (3.8-10.6)
[2023-03-18 01:11] LABS: HCT 16.4 % (39.0-53.0); HGB 5.5 gm/dL (13.0-17.5)
[2023-03-18 01:12] LABS: Platelet Count 170 k/uL (150-450)
[2023-03-18 01:14] LABS: Prothrombin Time 11.4 sec (10.0-12.5)
[2023-03-18 01:19] LABS: ALT 59 U/L (4-49); AST 83 U/L (17-59); African American GFR (CKD) 30 (>60 ml/min/1.73 sqM); Albumin 3.3 g/dL (3.5-5.0); Alkaline Phosphatase 70 U/L (38-126); Anion Gap 11 mmol/L; Blood Urea Nitrogen 100 mg/dL (9-20); Calcium 8.3 mg/dL (8.4-10.2); Carbon Dioxide 25 mmol/L (22-30); Chloride 99 mmol/L (98-107); Glucose 101 mg/dL (74-99); Non-African American GFR(CKD) 26 (>60 ml/min/1.73 sqM); Potassium 3.5 mmol/L (3.5-5.1); Sodium 135 mmol/L (137-145); Total Bilirubin 0.9 mg/dL (0.2-1.3); Total Protein 5.8 g/dL (6.3-8.2)
[2023-03-18 01:31] LABS: Band Neutrophils % 14 %; Lymphocytes # (M) 0.21 k/uL (1.0-4.8); Monocytes # (M) 0.32 k/uL (0-1.0); Neutrophils % (M) 81 %; Nucleated Red Blood Cells 0 /100 WBC (0-0); Total Cells Counted 100
[2023-03-18 01:33] LABS: Polychromasia Present
[2023-03-18 02:04] LABS: Anisocytosis Moderate; HCT 20.2 % (39.0-53.0); Hypochromasia Slight; MCH 29.4 pg (25.0-35.0); MCHC 33.2 g/dL (31.0-37.0); MCV 88.5 fL (80.0-100.0); Macrocytosis Slight; Mean Platelet Volume 11.2; Platelet Count 175 k/uL (150-450); Poikilocytosis Moderate; RBC 2.28 m/uL (4.30-5.90); RDW 21.9 % (11.5-15.5); WBC 12.2 k/uL (3.8-10.6)
[2023-03-18 02:12] LABS: HGB 6.7 gm/dL (13.0-17.5)
[2023-03-18 08:34] VITALS: TEMP 98
[2023-03-18 09:00] VITALS: BP 140/60; PULSE 70; RESP 20
== END 2023-03-18 08:56 | disposition other institution (70) ==
LOC: EC 21:22
DX: U07.1 COVID-19 (principal); R79.89 Other specified abnormal findings of blood chemistry; D64.9 Anemia, unspecified; N17.9 Acute kidney failure, unspecified; K92.2 Gastrointestinal hemorrhage, unspecified; J44.9 Chronic obstructive pulmonary disease, unspecified; I10 Essential (primary) hypertension; Z87.891 Personal history of nicotine dependence; Z79.899 Other long term (current) drug therapy; I25.2 Old myocardial infarction
CPT/HCPCS: 36415; 93005; 86900; 86901; 80053; 84484; 85025; 85027; 85610; 85730; 86850; 86920; 82272; 87636; 71046; 99291; 36430; P9016

== ENCOUNTER 2023-06-07 07:08 | Emergency (ER) | payer OTHER, MEDICARE ==
--- NOTE | 2023-06-07 07:27 | ED ---
General Adult HPI - General Chief complaint: Chest Pain Stated complaint: Chest Pain, SOB Time Seen by Provider: 06/07/23 07:18 Source: patient, RN notes reviewed Mode of arrival: ambulatory Limitations: no limitations - History of Present Illness Initial comments: Patient is a pleasant 73-year-old male present to the emergency department with concerns for chest discomfort. Onset of symptoms was 6 PM. Discomfort was severe but has improved and now is 6/10. Discomfort feels like indigestion. Patient has tried Pepto-Bismol and Tums without improvement of symptoms. Patient does feel little bit short of breath. No nausea or vomiting. No diaphoresis. No history of similar symptoms previously. Patient states leg edema is chronic and unchanged. No calf pain - Related Data Home Medications Medication Instructions Recorded Confirmed amLODIPine [Norvasc] 10 mg PO DAILY 08/06/14 03/15/23 Colchicine 0.6 mg PO DAILY 08/02/16 03/15/23 Ferrous Sulfate [Iron (65 MG 325 mg PO DAILY 12/29/18 03/15/23 Elemental)] Omeprazole 20 mg PO BID 05/16/20 03/13/23 Fluticasone Propion/Salmeterol 1 puff INHALATION RT-BID 06/08/22 03/15/23 [Wixela 250-50 Inhub] hydrALAZINE HCL [Apresoline] 100 mg PO TID 06/08/22 03/13/23 Folic Acid 1 mg PO DAILY 01/14/23 03/15/23 Tiotropium 2.5 Mcg/Puff [Spiriva 1 puff INHALATION RT-BID 01/14/23 03/13/23 Respimat 2.5 Mcg] predniSONE 5 mg PO DAILY 01/14/23 03/15/23 traZODone HCL [Desyrel] 50 mg PO HS 01/14/23 03/15/23 Cholecalciferol [Vitamin D3 (25 25 mcg PO DAILY 02/11/23 03/15/23 Mcg = 1000 Iu)] Multivit-Min/FA/Lycopen/Lutein 1 tab PO DAILY 02/11/23 03/13/23 [Centrum Silver Tablet] Xylitol [Xylimelts] 500 mg MM HS 02/11/23 03/15/23 Amiodarone [Cordarone] See Taper PO DAILY 03/07/23 03/15/23 Apixaban [Eliquis] 5 mg PO BID 03/07/23 03/15/23 Previous Rx's Medication Instructions Recorded Furosemide [Lasix] 40 mg PO BID@0900,1600 #60 tab 02/18/23 Budesonide-Formot 160-4.5 Mcg 2 puff INHALATION RT-BID #1 each 03/10/23 [Symbicort 160-4.5 Mcg Inhaler] Ipratropium-Albuterol Nebulize 3 ml INHALATION RT-QID #120 each 03/10/23 [Duoneb 0.5 mg-3 mg/3 ml Soln] Isosorbide Mononitrate ER [Imdur] 30 mg PO DAILY #30 tab 03/10/23 cefUROXime axetiL [Ceftin] 500 mg PO BID 3 Days #6 tab 03/10/23 predniSONE 10 mg PO DIRECTED #30 tab 03/10/23 Levofloxacin [Levaquin] 500 mg PO DAILY #9 tab 06/07/23 Allergies Allergy/AdvReac Type Severity Reaction Status Date / Time No Known Allergies Allergy Verified 06/07/23 07:17 Review of Systems ROS Statement: Those systems with pertinent positive or pertinent negative responses have been documented in the HPI. ROS Other: All systems not noted in ROS Statement are negative. Constitutional: Denies: fever Eyes: Denies: eye pain ENT: Denies: ear pain Respiratory: Reports: as per HPI, dyspnea. 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 Hospitalized last week for CHF & Pneumonia. Irr. heart rate @ times. History of Any Multi-Drug Resistant Organisms: None Reported Past Surgical History: Back Surgery, Heart Catheterization, Hernia Repair, Orthopedic Surgery Additional Past Surgical History / Comment(s): liver ablation done at [facility] for tx of hepatocellular carcinoma,hemorrhoids ,back surgery, cataract, skin cancer, inguinal hernia, abdominal hernia, left shoulder, right wrist, growth removed vocal cord, PAROTID GLAND REMOVED DUE TO CANCER. Past Anesthesia/Blood Transfusion Reactions: No Reported Reaction Additional Past Anesthesia/Blood Transfusion Reaction / Comment(s): no hx blood transfusion Past Psychological History: No Psychological Hx Reported Smoking Status: Former smoker Past Alcohol Use History: None Reported Past Drug Use History: None Reported - Past Family History Father Family Medical History: Cancer General Exam Limitations: no limitations General appearance: alert, in no apparent distress Head exam: Present: normocephalic Eye exam: Present: normal appearance Neck exam: Present: normal inspection Respiratory exam: Present: normal lung sounds bilaterally Cardiovascular Exam: Present: regular rate, normal rhythm, systolic murmur Expanded Peripheral pulses: 2+: Radial (R), Radial (L), Posterior Tibialis (R), Posterior Tibialis (L) GI/Abdominal exam: Present: soft. Absent: tenderness Extremities exam: Present: pedal edema. Absent: calf tenderness Neurological exam: Present: alert Psychiatric exam: Present: normal affect, normal mood Skin exam: Present: normal color Course Vital Signs 06/07/23 06/07/23 06/07/23 07:14 07:22 09:00 Temperature 98.1 F Pulse Rate 79 71 Pulse Rate [ 81 Government Property Inspector ] Respiratory 20 18 Rate Blood Pressure 159/79 147/79 O2 Sat by Pulse 96 93 L Oximetry 06/07/23 10:00 Temperature Pulse Rate 78 Pulse Rate [ Government Property Inspector ] Respiratory 18 Rate Blood Pressure 144/88 O2 Sat by Pulse 93 L Oximetry EKG Findings - EKG Results: EKG: interpreted by ERMD (Left axis. Septal Q waves.), sinus rhythm, normal ST/T Medical Decision Making - Medical Decision Making Was pt. sent in by a medical professional or institution (, PA, BEHAVIORAL INSTRUCTOR, urgent care, hospital, or assisted...) When possible be specific @ -No Did you speak to anyone other than the patient for history (EMS, parent, family, police, friend...)? What history was obtained from this source @ -No Did you review nursing and triage notes (agree or disagree)? Why? @ -I reviewed and agree with nursing and triage notes Were old charts reviewed (outside hosp., previous admission, EMS record, old EKG, old radiological studies, urgent care reports/EKG's, assisted records)? Report findings @ -Previous chest x-ray reviewed Differential Diagnosis (chest pain, altered mental status, abdominal pain women, abdominal pain men, vaginal bleeding, weakness, fever, dyspnea, syncope, headache, dizziness, GI bleed, back pain, seizure, CVA, palpatations, mental health, musculoskeletal)? @ -Differential Chest Pain: Stable Angina, Unstable Angina, STEMI, NSTEMI Aortic Dissection, Pneumothorax, Musculoskeletal, Esophageal Spasm GERD, Cholecystitis, Pancreatitis, Zoster, this is not meant to be an all-inclusive list. EKG interpreted by me (3pts min.). @ -As above X-rays interpreted by me (1pt min.). @ -Chest x-ray shows left lower lobe infiltrate CT interpreted by me (1pt min.). @ -CT chest shows left lower lobe infiltrate U/S interpreted by me (1pt. min.). @ -None done What testing was considered but not performed or refused? (CT, X-rays, U/S, labs)? Why? @ -Discussion had with patient regarding admission. Admission was recommended however patient refuses. Patient does demonstrate medical decision-making. Patient states he has obligations at home and pets to take care of. Patient will leave AGAINST MEDICAL ADVICE. Patient is encouraged to stay however he refuses. What meds were considered but not given or refused? Why? @ -None Did you discuss the management of the patient with other professionals (professionals i.e. , PA, BEHAVIORAL INSTRUCTOR, lab, RT, psych nurse, social insurance adviser, recycler forklift driver truck driver, teacher, corporate banking officer, disease case manager)? Give summary @ -Case was discussed with Dr. Del Valle Was smoking cessation discussed for >3mins.? @ -No Was critical care preformed (if so, how long)? @ -No Were there social determinants of health that impacted care today? How? (Homelessness, low income, unemployed, alcoholism, drug addiction, transportation, low edu. Level, literacy, decrease access to med. care, halfway, rehab)? @ -No Was there de-escalation of care discussed even if they declined (Discuss DNR or withdrawal of care, Hospice)? DNR status @ -No What co-morbidities impacted this encounter? (DM, HTN, Smoking, COPD, CAD, C ancer, CVA, ARF, Chemo, Hep., AIDS, mental health diagnosis, sleep apnea, morbid obesity)? @ -None Was patient admitted / discharged? Hospital course, mention meds given and route, prescriptions, significant lab abnormalities, going to OR and other pertinent info. @ -Patient reevaluated. Plan for admission with IV antibiotics and further testing. Patient has abnormal blood work. Patient refuses admission and will leave AGAINST MEDICAL ADVICE. Patient states he does have appointments with all of his specialist next week including hematology and will make this. Patient will leave AGAINST MEDICAL ADVICE. Undiagnosed new problem with uncertain prognosis? @ -No Drug Therapy requiring intensive monitoring for toxicity (Heparin, Nitro, Insulin, Cardizem)? @ -No Were any procedures done? @ -No Diagnosis/symptom? @ -Chest pain, pneumonia Acute, or Chronic, or Acute on Chronic? @ -Acute, acute on chronic Uncomplicated (without systemic symptoms) or Complicated (systemic symptoms)? @ -Default Side effects of treatment? @ -No Exacerbation, Progression, or Severe Exacerbation? @ -No Poses a threat to life or bodily function? How? (Chest pain, [place], NH, pneumonia, PE, COPD, DKA, ARF, appy, cholecystitis, CVA, Diverticulitis, Homicidal, Suicidal, threat to staff... and all critical care pts) @ -No - Lab Data Result diagrams: 06/07/23 07:35 06/07/23 07:35 Lab Results 06/07/23 06/07/23 06/07/23 Range/Units 07:35 07:35 07:35 WBC 1.8 L (3.8-10.6) k/uL RBC 4.37 (4.30-5.90) m/uL Hgb 11.4 L (13.0-17.5) gm/dL Hct 35.8 L (39.0-53.0) % MCV 81.8 (80.0-100.0) fL MCH 26.2 (25.0-35.0) pg MCHC 32.0 (31.0-37.0) g/dL RDW 20.5 H (11.5-15.5) % Plt Count 62 L (150-450) k/uL MPV 8.0 Neutrophils % 79 % Lymphocytes % 10 % Monocytes % 6 % Eosinophils % 4 % Basophils % 1 % Neutrophils # 1.4 (1.3-7.7) k/uL Lymphocytes # 0.2 L (1.0-4.8) k/uL Monocytes # 0.1 (0-1.0) k/uL Eosinophils # 0.1 (0-0.7) k/uL Basophils # 0.0 (0-0.2) k/uL Manual Slide Review Performed Hypochromasia Slight Poikilocytosis (manual Present Anisocytosis Moderate Microcytosis Slight Tear Drop Cells Present PT 11.0 (10.0-12.5) sec INR 1.0 (<1.2) APTT 29.3 (22.0-30.0) sec D-Dimer 1.91 H (<0.60) mg/L FEU Sodium 139 (137-145) mmol/L Potassium 3.9 (3.5-5.1) mmol/L Chloride 107 (98-107) mmol/L Carbon Dioxide 26 (22-30) mmol/L Anion Gap 6 mmol/L BUN 29 H (9-20) mg/dL Creatinine 1.37 H (0.66-1.25) mg/dL Est GFR (CKD-EPI)AfAm 59 (>60 ml/min/1.73 sqM) Est GFR (CKD-EPI)NonAf 51 (>60 ml/min/1.73 sqM) Glucose 92 (74-99) mg/dL Calcium 9.1 (8.4-10.2) mg/dL Magnesium 2.0 (1.6-2.3) mg/dL Total Bilirubin 0.9 (0.2-1.3) mg/dL AST 32 (17-59) U/L ALT 23 (4-49) U/L Alkaline Phosphatase 96 (38-126) U/L Troponin I (0.000-0.034) ng/mL NT-Pro-B Natriuret Pep 3110 pg/mL Total Protein 6.3 (6.3-8.2) g/dL Albumin 3.5 (3.5-5.0) g/dL 06/07/23 06/07/23 Range/Units 07:35 10:18 WBC (3.8-10.6) k/uL RBC (4.30-5.90) m/uL Hgb (13.0-17.5) gm/dL Hct (39.0-53.0) % MCV (80.0-100.0) fL MCH (25.0-35.0) pg MCHC (31.0-37.0) g/dL RDW (11.5-15.5) % Plt Count (150-450) k/uL MPV Neutrophils % % Lymphocytes % % Monocytes % % Eosinophils % % Basophils % % Neutrophils # (1.3-7.7) k/uL Lymphocytes # (1.0-4.8) k/uL Monocytes # (0-1.0) k/uL Eosinophils # (0-0.7) k/uL Basophils # (0-0.2) k/uL Manual Slide Review Hypochromasia Poikilocytosis (manual Anisocytosis Microcytosis Tear Drop Cells PT (10.0-12.5) sec INR (<1.2) APTT (22.0-30.0) sec D-Dimer (<0.60) mg/L FEU Sodium (137-145) mmol/L Potassium (3.5-5.1) mmol/L Chloride (98-107) mmol/L Carbon Dioxide (22-30) mmol/L Anion Gap mmol/L BUN (9-20) mg/dL Creatinine (0.66-1.25) mg/dL Est GFR (CKD-EPI)AfAm (>60 ml/min/1.73 sqM) Est GFR (CKD-EPI)NonAf (>60 ml/min/1.73 sqM) Glucose (74-99) mg/dL Calcium (8.4-10.2) mg/dL Magnesium (1.6-2.3) mg/dL Total Bilirubin (0.2-1.3) mg/dL AST (17-59) U/L ALT (4-49) U/L Alkaline Phosphatase (38-126) U/L Troponin I 0.046 H* 0.036 H* (0.000-0.034) ng/mL NT-Pro-B Natriuret Pep pg/mL Total Protein (6.3-8.2) g/dL Albumin (3.5-5.0) g/dL Disposition Clinical Impression: Chest pain, Pneumonia Disposition: LEFT AGAINST MEDICAL ADVICE Instructions (If sedation given, give patient instructions): Chest Pain (ED), Bacterial Pneumonia (ED) Additional Instructions: Please follow-up with your primary care physician and warehouse inventory clerk in the next day or 2 for recheck. You are leaving AGAINST MEDICAL ADVICE. Prescription has been sent to pharmacy. Return for any pain, fever, difficulty breathing, worsening symptoms or any other concerns. Prescriptions: Levofloxacin [Levaquin] 500 mg PO DAILY #9 tab Is patient prescribed a controlled substance at d/c from ED?: No Referrals: Drew Medrano MD [Primary Care Provider] - 1-2 days Gopi Guy [STAFF PHYSICIAN] - 1-2 days Flores Humphries MD [STAFF PHYSICIAN] - 1-2 days Time of Disposition: 12:35
[2023-06-07] MEDS: NITROGLYCERIN SL TABS 0.4 MG TAB SUBLINGUAL STA ×3 (07:31→09:17)
[2023-06-07] MEDS: ASPIRIN 81 MG PO STA (07:31)
[2023-06-07 07:53] LABS: Anisocytosis Moderate; Basophils % (A) 1 %; Eosinophils # (A) 0.1 k/uL (0-0.7); Eosinophils % (A) 4 %; HCT 35.8 % (39.0-53.0); HGB 11.4 gm/dL (13.0-17.5); Hypochromasia Slight; Lymphocytes # (A) 0.2 k/uL (1.0-4.8); Lymphocytes % (A) 10 %; MCH 26.2 pg (25.0-35.0); MCV 81.8 fL (80.0-100.0); Microcytosis Slight; Monocytes # (A) 0.1 k/uL (0-1.0); Monocytes % (A) 6 %; Neutrophils # (A) 1.4 k/uL (1.3-7.7); Neutrophils % (A) 79 %; RBC 4.37 m/uL (4.30-5.90); RDW 20.5 % (11.5-15.5); WBC 1.8 k/uL (3.8-10.6)
[2023-06-07 08:07] LABS: ALT 23 U/L (4-49); AST 32 U/L (17-59); African American GFR (CKD) 59 (>60 ml/min/1.73 sqM); Albumin 3.5 g/dL (3.5-5.0); Alkaline Phosphatase 96 U/L (38-126); Anion Gap 6 mmol/L; Blood Urea Nitrogen 29 mg/dL (9-20); Calcium 9.1 mg/dL (8.4-10.2); Carbon Dioxide 26 mmol/L (22-30); Chloride 107 mmol/L (98-107); Glucose 92 mg/dL (74-99); Non-African American GFR(CKD) 51 (>60 ml/min/1.73 sqM); Potassium 3.9 mmol/L (3.5-5.1); Sodium 139 mmol/L (137-145); Total Bilirubin 0.9 mg/dL (0.2-1.3); Total Protein 6.3 g/dL (6.3-8.2)
[2023-06-07 08:13] VITALS: TEMP 98.1
[2023-06-07 08:15] LABS: NT-Pro-B-Type Natriuretic Pept 3110 pg/mL
[2023-06-07 08:25] LABS: Partial Thromboplastin Time 29.3 sec (22.0-30.0)
--- NOTE | 2023-06-07 08:28 | XR ---
EXAMINATION TYPE: XR chest 2V DATE OF EXAM: 06/07/2023 COMPARISON: 03/17/2023 INDICATION: Chest pain and shortness of breath TECHNIQUE: Frontal and lateral views of the chest are obtained. FINDINGS: The heart size is normal. The pulmonary vasculature is normal. There is increasing left lower lobe infiltrate. Correlate for pneumonia. Some subtle plate atelectasi s may be at the right costophrenic angle. Small left pleural effusion is present.. Hyperinflation an d flattened diaphragms is present compatible with COPD. IMPRESSION: 1. Left lower lobe increasing consolidation. Correlate for pneumonia. Continued follow-up is recommen ded. 2. COPD.
[2023-06-07 08:59] LABS: Platelet Count 62 k/uL (150-450)
[2023-06-07 09:01] LABS: Poikilocytosis (M) Present; Tear Drop Cells Present
--- NOTE | 2023-06-07 10:04 | CT ---
EXAMINATION TYPE: CT angio chest DATE OF EXAM: 06/07/2023 COMPARISON: 01/29/2023 HISTORY: 73-year-old male cp, lll opacity TECHNIQUE: Contiguous axial scanning of the chest after the administration of 100 mL of Isovue 300. Coronal/sagittal MIP reconstructions performed. CT DLP: 342.5mGycm. Automatic exposure control utilized for a dose reduction. FINDINGS: The heart is mildly enlarged without pericardial effusion. Moderate aortic valvular calcifications ar e present. Tortuous thoracic aorta. The upper descending thoracic aorta is aneurysmal at 3.9 cm. Conventional ar ch vessel branching anatomy. Scattered mild atherosclerotic calcifications throughout. There is fusiform aneurysm mid to lower descending thoracic aorta. At the midportion, this has a morelia catia up to 4.3 cm versus 4.4 cm, previously. Distally, caliber up to 4.4 cm versus 4.0 cm, previously. At the thoracoabdominal junction, caliber of 3.8 cm, unchanged. No thoracic lymphadenopathy by CT size criteria. Enlarged caliber to the main right and left pulmonary arteries up to 3.0 cm suggesting underlying pul monary artery hypertension. There is no evidence for pulmonary embolus. Extensive patchy airspace opacities inferior lingula and basilar left lower lobe. Lesser degree of ch anges posterior right base. There is a trace left pleural effusion also present. Background moderate upper lung predominant emphysematous change. Visualized upper abdomen shows cirrhotic morphology of the liver. Unchanged 6 mm cyst right hepatic d ome and a partially visualized cyst measuring at least 1.1 cm left liver lobe. Marked splenomegaly. F indings suspected to reflect portal venous hypertension. Partially visualized right adrenal nodule measuring at least 1.2 cm, unchanged. Bones: A few scattered fatty matrix hemangioma is noted within the thoracic spine and a reverse levoc onvex curvature upper thoracic spine. IMPRESSION: 1. No evidence for pulmonary embolus. 2. New airspace disease inferior lingula and left greater than right lung bases. Correlate for possib ilities such as aspiration or pneumonia. Trace parapneumonic effusion on the left. 3. COPD with background moderate emphysema. 4. Diffusely aneurysmal descending thoracic aorta measuring up to 4.4 cm versus 4.0 cm previously. 5. Incidental: Cirrhosis. Marked splenomegaly suggests concurrent portal venous hypertension.
[2023-06-07 10:55] VITALS: RESP 18
[2023-06-07] MEDS: LEVOFLOXACIN 750 MG TAB PO STA (13:05)
[2023-06-07 13:30] VITALS: BP 150/95; PULSE 75
== END 2023-06-07 13:09 | disposition left against medical advice (07) ==
LOC: EC 07:08
DX: I25.2 Old myocardial infarction (principal); J18.9 Pneumonia, unspecified organism; J43.9 Emphysema, unspecified; K74.60 Unspecified cirrhosis of liver; J44.9 Chronic obstructive pulmonary disease, unspecified; I10 Essential (primary) hypertension; Z87.891 Personal history of nicotine dependence; Z79.899 Other long term (current) drug therapy; Z79.01 Long term (current) use of anticoagulants; Z79.51 Long term (current) use of inhaled steroids; Z53.29 Procedure and treatment not carried out because of patient's decision for other reasons
CPT/HCPCS: 36415; 93005; 85379; 83880; 80053; 83735; 84484; 85025; 85610; 85730; 71046; 71275; 99285; Q9967

== ENCOUNTER 2023-06-29 16:31 | Inpatient (IN) | payer MEDICARE, OTHER ==
--- NOTE | 2023-06-29 17:00 | ED ---
Chest Pain HPI - General Chief Complaint: Chest Pain Stated Complaint: chest pain SOB Time Seen by Provider: 06/29/23 16:42 Source: patient Mode of arrival: ambulatory Limitations: no limitations - History of Present Illness Initial Comments: This patient is a 73-year-old man who presents to have evaluation for dyspnea and left-sided chest pain. He states that things started yesterday in the afternoon after he had received iron infusion for anemia. Patient states that he the pain is left-sided, gets much worse if he takes a deep breath, in fact it stops him in the process of taking a breath. Patient describes it as sharp stabbing, it lasts a few seconds and is better if he only takes shallow breaths. There was no exertional component. Patient denies fever or chills. No cough. No nausea, vomiting, diarrhea. There is no diaphoresis, palpitations or syncope. MD Complaint: chest pain Onset/Timin -: days(s) Onset: during rest Pain Location: left chest Pain Radiation: none Severity: moderate Quality: sharp Consistency: intermittent Improves With: nothing Worsens With: inspiration Anginal Symptoms: dyspnea Treatments Prior to Arrival: none - Related Data Home Medications Medication Instructions Recorded Confirmed amLODIPine [Norvasc] 10 mg PO DAILY 08/06/14 06/30/23 Colchicine 0.6 mg PO DAILY 08/02/16 06/30/23 hydrALAZINE HCL [Apresoline] 100 mg PO TID 06/08/22 06/30/23 Tiotropium 2.5 Mcg/Puff [Spiriva 2 puff INHALATION RT-DAILY 01/14/23 06/30/23 Respimat 2.5 Mcg] predniSONE 7.5 mg PO DAILY 01/14/23 06/30/23 traZODone HCL [Desyrel] 50 mg PO HS 01/14/23 06/30/23 Cholecalciferol [Vitamin D3 (25 25 mcg PO DAILY 02/11/23 06/30/23 Mcg = 1000 Iu)] Multivit-Min/FA/Lycopen/Lutein 1 tab PO DAILY 02/11/23 06/30/23 [Centrum Silver Tablet] Apixaban [Eliquis] 2.5 mg PO BID 03/07/23 06/30/23 Albuterol Inhaler [Ventolin Hfa 2 puff INHALATION RT-Q6H PRN 06/30/23 06/30/23 Inhaler] Fluticasone Propion/Salmeterol 1 puff INHALATION RT-BID 06/30/23 06/30/23 [Wixela 500-50 Inhub] Folic Acid 0.4 mg PO DAILY 06/30/23 06/30/23 HYDROcodone/APAP 10-325MG [[place] 1 tab PO TID 06/30/23 06/30/23 10-325] Pantoprazole Sodium [Protonix] 20 mg PO BID 06/30/23 06/30/23 Previous Rx's Medication Instructions Recorded Benzocaine/Menthol Lozeng [Cepacol 1 each MUCOUS MEM Q4HR PRN lozenge 07/04/23 lozenge] Doxycycline Hyclate 100 mg PO BID #20 capsule 07/04/23 Furosemide [Lasix] 40 mg PO DAILY #30 tab 07/04/23 Ipratropium-Albuterol Nebulize 3 ml INHALATION RT-QID #120 each 07/04/23 [Duoneb 0.5 mg-3 mg/3 ml Soln] Metoprolol Tartrate [Lopressor] 12.5 mg PO BID #60 tab 07/04/23 Allergies Allergy/AdvReac Type Severity Reaction Status Date / Time allopurinol Allergy Unknown Verified 07/02/23 16:00 omalizumab [From Xolair] Allergy Rash/Hives Verified 07/02/23 16:00 atenolol AdvReac Bradycardia Verified 07/02/23 16:00 /Fatigue doxazosin AdvReac Dizziness Verified 07/02/23 16:00 & Delirium lisinopril AdvReac Cough Verified 07/02/23 16:00 metoprolol [From Lopressor] AdvReac Chest Pain Verified 07/02/23 16:00 Review of Systems ROS Statement: Those systems with pertinent positive or pertinent negative responses have been documented in the HPI. ROS Other: All systems not noted in ROS Statement are negative. EKG Findings - EKG Results: EKG: interpreted by ERMD, sinus rhythm (With frequent PVCs and occasional premature supraventricular complex) EKG shows: tachycardia - Blocks, [place], Hypertrophy, ST Abn: QRS axis and voltage: left axis deviation (-30 to -90), pulmonary disease Repolarization changes or abnormalities: ST or T wave suggestive of ischemia - OR, Pacemaker, Normal: Myocardial infarction: septal OR (old age or indeterminate) Past Medical History Past Medical History: Cancer, Chest Pain / Angina, COPD, Hyperlipidemia, Hypertension, Liver Disease, Musculoskeletal Disorder, Pneumonia Additional Past Medical History / Comment(s): HX OF HEPATITIS C , hepatocellular carcinoma, LOW IRON , BACK PAIN, HERNIATED DISCS, SKIN CANCER, 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 Hospitalized last week for CHF & Pneumonia. Irr. heart rate @ times. History of Any Multi-Drug Resistant Organisms: None Reported Past Surgical History: Back Surgery, Heart Catheterization, Hernia Repair, Orthopedic Surgery Additional Past Surgical History / Comment(s): liver ablation done at [place] for tx of hepatocellular carcinoma,hemorrhoids ,back surgery, cataract, skin cancer, inguinal hernia, abdominal hernia, left shoulder, right wrist, growth removed vocal cord, PAROTID GLAND REMOVED DUE TO CANCER. Past Anesthesia/Blood Transfusion Reactions: No Reported Reaction Additional Past Anesthesia/Blood Transfusion Reaction / Comment(s): no hx blood transfusion Past Psychological History: No Psychological Hx Reported Smoking Status: Former smoker Past Alcohol Use History: None Reported Past Drug Use History: None Reported - Past Family History Father Family Medical History: Cancer General Exam Limitations: no limitations General appearance: alert, in no apparent distress Head exam: Present: atraumatic, normocephalic Eye exam: Present: normal appearance. Absent: scleral icterus, conjunctival injection Neck exam: Present: normal inspection Respiratory exam: Present: wheezes (Mild expiratory wheeze). Absent: respiratory distress, rales, rhonchi, stridor, chest wall tenderness, accessory muscle use Cardiovascular Exam: Present: regular rate, normal rhythm, systolic murmur. Absent: diastolic murmur, rubs, gallop GI/Abdominal exam: Present: soft. Absent: distended, tenderness, guarding, rebound, rigid, mass Extremities exam: Present: normal inspection, normal capillary refill. Absent: pedal edema, calf tenderness Back exam: Present: normal inspection. Absent: CVA tenderness (R), CVA tenderness (L) Neurological exam: Present: alert Skin exam: Present: warm, dry, intact, normal color. Absent: rash Course Vital Signs 06/29/23 06/29/23 06/29/23 16:36 17:25 17:30 Temperature 98.4 F Pulse Rate 93 91 92 Respiratory 16 18 23 Rate Blood Pressure 159/76 136/76 136/76 Blood Pressure [Right Arm] O2 Sat by Pulse 96 91 L 91 L Oximetry 06/29/23 06/29/23 06/29/23 18:30 20:00 21:00 Temperature Pulse Rate 96 90 Respiratory 20 18 22 Rate Blood Pressure 137/61 137/95 180/95 Blood Pressure [Right Arm] O2 Sat by Pulse 89 L 90 L 90 L Oximetry 06/29/23 06/29/23 06/30/23 22:00 23:00 00:00 Temperature Pulse Rate 86 102 H 96 Respiratory 22 24 24 Rate Blood Pressure 133/94 167/90 152/93 Blood Pressure [Right Arm] O2 Sat by Pulse 90 L 90 L 91 L Oximetry 06/30/23 06/30/23 06/30/23 00:21 00:32 00:41 Temperature Pulse Rate 101 H 105 H Respiratory 30 H Rate Blood Pressure Blood Pressure [Right Arm] O2 Sat by Pulse 91 L Oximetry 06/30/23 06/30/23 06/30/23 01:00 02:07 02:09 Temperature Pulse Rate 98 170 H 176 H Respiratory 16 22 32 H Rate Blood Pressure 157/68 157/68 Blood Pressure [Right Arm] O2 Sat by Pulse 91 L 93 L 91 L Oximetry 06/30/23 06/30/23 06/30/23 02:10 02:14 02:15 Temperature Pulse Rate 172 H 181 H 163 H Respiratory 20 24 Rate Blood Pressure 123/86 158/103 127/91 Blood Pressure [Right Arm] O2 Sat by Pulse 91 L 92 L 91 L Oximetry 06/30/23 06/30/23 06/30/23 02:20 02:25 02:43 Temperature 100.6 F H Pulse Rate 189 H 181 H 189 H Respiratory 22 22 22 Rate Blood Pressure 123/80 119/76 129/91 Blood Pressure [Right Arm] O2 Sat by Pulse 92 L 92 L 91 L Oximetry 06/30/23 06/30/23 06/30/23 02:46 03:05 03:40 Temperature Pulse Rate 170 H 174 H 165 H Respiratory 30 H 27 H 22 Rate Blood Pressure 113/80 100/86 118/89 Blood Pressure [Right Arm] O2 Sat by Pulse 94 L 94 L 96 Oximetry 06/30/23 06/30/23 06/30/23 04:00 04:05 04:15 Temperature Pulse Rate 140 H 146 H Respiratory 22 24 Rate Blood Pressure Blood Pressure 114/74 125/78 [Right Arm] O2 Sat by Pulse 96 96 Oximetry 06/30/23 06/30/23 06/30/23 04:30 04:45 05:00 Temperature Pulse Rate Respiratory 23 22 29 H Rate Blood Pressure Blood Pressure 104/86 108/91 121/69 [Right Arm] O2 Sat by Pulse 96 94 L 94 L Oximetry 06/30/23 06/30/23 06/30/23 05:15 05:30 05:45 Temperature Pulse Rate Respiratory 28 H 25 H 25 H Rate Blood Pressure Blood Pressure 119/72 111/70 130/80 [Right Arm] O2 Sat by Pulse 96 96 96 Oximetry 06/30/23 06/30/23 06/30/23 06:00 06:15 06:30 Temperature Pulse Rate Respiratory 22 17 15 Rate Blood Pressure Blood Pressure 133/75 127/81 123/69 [Right Arm] O2 Sat by Pulse 95 97 95 Oximetry 06/30/23 06/30/23 06/30/23 06:45 07:00 07:31 Temperature 97.3 F L Pulse Rate 72 Respiratory 15 18 22 Rate Blood Pressure 123/69 Blood Pressure 121/67 127/72 [Right Arm] O2 Sat by Pulse 95 93 L 92 L Oximetry 06/30/23 06/30/23 08:05 08:15 Temperature Pulse Rate 72 77 Respiratory Rate Blood Pressure Blood Pressure [Right Arm] O2 Sat by Pulse 93 L Oximetry Chest Pain MDM - MDM The patient had chest x-ray that I interpreted as negative for acute infiltrate, pneumothorax, congestive heart failure The patient had CT scan of the chest which I interpreted as negative for acute DVT. There is bilateral pneumonia present Was pt. sent in by a medical professional or institution (, PA, CLINICAL SCIENTIST, urgent care, hospital, or care home...) When possible be specific @ -[No] Did you speak to anyone other than the patient for history (EMS, parent, family, police, friend...)? What history was obtained from this source @ -[No] Did you review nursing and triage notes (agree or disagree)? Why? @ -[I reviewed and agree with nursing and triage notes] Were old charts reviewed (outside hosp., previous admission, EMS record, old EKG, old radiological studies, urgent care reports/EKG's, care home records)? Report findings @ -[No old charts were reviewed] Differential Diagnosis (chest pain, altered mental status, abdominal pain women, abdominal pain men, vaginal bleeding, weakness, fever, dyspnea, syncope, headache, dizziness, GI bleed, back pain, seizure, CVA, palpatations, mental health, musculoskeletal)? @ -[Differential Chest Pain: Stable Angina, Unstable Angina, STEMI, NSTEMI Aortic Dissection, Pneumothorax, Musculoskeletal, Esophageal Spasm GERD, Cholecystitis, Pancreatitis, Zoster, this is not meant to be an all-inclusive list. EKG interpreted by me (3pts min.). @ -[I interpreted as above X-rays interpreted by me (1pt min.). @ -[I interpreted as above CT interpreted by me (1pt min.). @ -[I interpreted as above U/S interpreted by me (1pt. min.). @ -[None done] What testing was considered but not performed or refused? (CT, X-rays, U/S, labs)? Why? @ -[None] What meds were considered but not given or refused? Why? @ -[None] Did you discuss the management of the patient with other professionals (professionals i.e. , PA, CLINICAL SCIENTIST, lab, RT, psych nurse, social sciences department chair, area manager, teacher, equal opportunity officer, director of casework department)? Give summary @ -[Case discussed with the admitting physician and treatment recommendations are incorporated Was smoking cessation discussed for >3mins.? @ -[No] Was critical care preformed (if so, how long)? @ -[yes, 35 minutes Were there social determinants of health that impacted care today? How? (Homelessness, low income, unemployed, alcoholism, drug addiction, transportation, low edu. Level, literacy, decrease access to med. care, half-way, rehab)? @ -[No] Was there de-escalation of care discussed even if they declined (Discuss DNR or withdrawal of care, Hospice)? DNR status @ -[No] What co-morbidities impacted this encounter? (DM, HTN, Smoking, COPD, CAD, Cancer, CVA, ARF, Chemo, Hep., AIDS, mental health diagnosis, sleep apnea, morbid obesity)? @ -[None] Was patient admitted / discharged? Hospital course, mention meds given and route, prescriptions, significant lab abnormalities, going to OR and other pertinent info. @ -[Patient is 73-year-old man presenting with chest pain who is found to have bilateral infiltrates and will be admitted to have further evaluation and treatment by specialist. He is started on IV antibiotics, as Undiagnosed new problem with uncertain prognosis? @ -[No] Drug Therapy requiring intensive monitoring for toxicity (Heparin, Nitro, Insulin, Cardizem)? @ -[No] Were any procedures done? @ -[No] Diagnosis/symptom? @ -[Acute left chest pain Acute bilateral pneumonia Chronic liver disease Elevated troponin, NSTEMI Acute, or Chronic, or Acute on Chronic? @ -[ Uncomplicated (without systemic symptoms) or Complicated (systemic symptoms)? @ -[ Side effects of treatment? @ -[No] Exacerbation, Progression, or Severe Exacerbation? @ -[No] Poses a threat to life or bodily function? How? (Chest pain, [place], OR, pneumonia, PE, COPD, DKA, ARF, appy, cholecystitis, CVA, Diverticulitis, Homicidal, Suicidal, threat to staff... and all critical care pts) @ -[Yes Disposition Clinical Impression: Chest pain, Pneumonia, Elevated troponin Disposition: ADMITTED IP TO THIS HOSP Condition: Serious
[2023-06-29 17:32] LABS: Anisocytosis Slight; Basophils % (A) 0 %; Eosinophils # (A) 0.1 k/uL (0-0.7); Eosinophils % (A) 2 %; HCT 35.5 % (39.0-53.0); HGB 11.4 gm/dL (13.0-17.5); Lymphocytes # (A) 0.2 k/uL (1.0-4.8); Lymphocytes % (A) 6 %; MCH 26.4 pg (25.0-35.0); MCV 82.5 fL (80.0-100.0); Mean Platelet Volume 9.6; Microcytosis Slight; Monocytes # (A) 0.2 k/uL (0-1.0); Monocytes % (A) 6 %; Neutrophils # (A) 2.8 k/uL (1.3-7.7); Neutrophils % (A) 85 %; RBC 4.31 m/uL (4.30-5.90); WBC 3.3 k/uL (3.8-10.6)
[2023-06-29 17:45] LABS: ALT 23 U/L (4-49); AST 37 U/L (17-59); African American GFR (CKD) 48 (>60 ml/min/1.73 sqM); Albumin 3.2 g/dL (3.5-5.0); Alkaline Phosphatase 104 U/L (38-126); Anion Gap 12 mmol/L; Blood Urea Nitrogen 33 mg/dL (9-20); Calcium 8.4 mg/dL (8.4-10.2); Carbon Dioxide 19 mmol/L (22-30); Chloride 106 mmol/L (98-107); Glucose 100 mg/dL (74-99); Magnesium 1.6 mg/dL (1.6-2.3); Non-African American GFR(CKD) 41 (>60 ml/min/1.73 sqM); Potassium 3.4 mmol/L (3.5-5.1); Sodium 137 mmol/L (137-145); Total Bilirubin 1.6 mg/dL (0.2-1.3); Total Protein 6.1 g/dL (6.3-8.2)
[2023-06-29 17:52] LABS: NT-Pro-B-Type Natriuretic Pept 8970 pg/mL
[2023-06-29 17:57] LABS: INR 1.2 (<1.2); Partial Thromboplastin Time 32.6 sec (22.0-30.0); Prothrombin Time 12.9 sec (10.0-12.5)
[2023-06-29 18:16] LABS: Platelet Count 48 k/uL (150-450)
--- NOTE | 2023-06-29 18:37 | XR ---
EXAMINATION TYPE: XR chest 2V DATE OF EXAM: 06/29/2023 5:38 PM CLINICAL INDICATION:Male, 73 years old with history of Chest Pain; [facility] COMPARISON: CT 06/07/2023, plain film. TECHNIQUE: XR chest 2V Frontal and lateral views of the chest. FINDINGS: Lungs/Pleura: Left basilar atelectasis is unchanged. There is flattening of the diaphragm with increa sed lucency of the lungs. No evidence of pneumothorax, pleural effusion or focal consolidation. Pulmonary vascularity: Unremarkable. Heart/mediastinum: Cardiomediastinal silhouette is unremarkable. Musculoskeletal: No acute osseous pathology. IMPRESSION: 1. Left basilar atelectasis as seen on 06/07/2023 CT. 2. COPD changes.
[2023-06-29] MEDS: FUROSEMIDE 10 MG/ML 2 ML VIAL IV STA (18:46)
[2023-06-29] MEDS: ASPIRIN 81 MG PO STA (18:47)
--- NOTE | 2023-06-29 19:34 | CT ---
EXAMINATION TYPE: CT chest angio for PE CT DLP: 777.8 mGycm, Automated exposure control for dose reduction was used. DATE OF EXAM: 06/29/2023 7:25 PM COMPARISON: Chest radiograph from same day. 09/19/2022. CLINICAL INDICATION:Male, 73 years old with history of pleuritic chest pain, possible PE; Cough and c hest pain post iron infusion TECHNIQUE/CONTRAST: CTA scan of the thorax is performed with IV Contrast, patient injected with 80ml mL of Isovue 370, IN P images are created and reviewed these are created on a separate workstation.. FINDINGS: Pulmonary Artery: There is no evidence for a filling defect within the pulmonary vasculature to sugge st acute pulmonary embolism. The pulmonary artery is of normal size. Lungs/Pleura: Airspace consolidation changes within the lingula and left lower lung. In the right lower lung to lesser extent. No pneumothorax or pleural effusion. There is mild centrilo bular emphysema changes throughout the lungs. Airway: Few opacified left lower large airways. Heart: Heart is mildly enlarged for size there is aortic valve calcifications present. Moderate coron laurita artery atherosclerosis. Vasculature: Fusiform dilation of the distinct thoracic aorta measuring up to 45 mm. Mediastinum: No gross evidence of adenopathy. Musculoskeletal: No acute osseous abnormalities Soft Tissues: Unremarkable. Lower neck: No significant findings. Upper Abdomen: Nodular contour to liver with at least one hypodense area partially visualized measuri ng 14 mm. Spleen is enlarged for size measuring up to centimeters. IMPRESSION: 1. No evidence of pulmonary embolism. 2. Bibasilar lung airspace opacities correlate for pneumonia. Few opacified airways in the left lung correlate for aspiration. Airspace consolidation changes within the lingula and left lower lung. 3. Hepatic cirrhosis with evidence of portal hypertension. 4. 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 [email or web address]?lang=us
[2023-06-29] MEDS: HYDROcodone/APAP 10-325MG 1 EACH TAB PO ONE (20:21)
[2023-06-29] MEDS: AZITHROMYCIN 500 MG TAB PO SCH (20:22)
[2023-06-29] MEDS: ENOXAPARIN 80 MG/0.8 ML SYRINGE SQ STA (20:23)
[2023-06-29] MEDS: MORPHINE SULFATE 4 MG/ML SYRINGE IV STA (20:54)
[2023-06-29] MEDS ORDERED: PNEUMONIA PROTOCOL UTILIZED 1 EACH MISC PO PRN (21:40)
[2023-06-29] MEDS: MELATONIN 5 MG TABLET PO SCH (22:34)
[2023-06-29] MEDS: traZODone HCL 50 MG TAB PO SCH (22:34)
[2023-06-29] MEDS: SODIUM CHLORIDE 0.9% 1,000 ML IV SCH (22:35)
[2023-06-29] MEDS: predniSONE 5 MG TAB PO SCH (22:38)
[2023-06-30] MEDS: ALBUTEROL NEBULIZED 2.5 MG/3 ML INHALATION PRN (00:30)
[2023-06-30] MEDS: ADENOSINE 3 MG/ML 2 ML VIAL IVP STA ×3 (02:14→02:25)
[2023-06-30] MEDS: DILTIAZEM DRIP BOLUS FROM BAG 1 MG SOLN IV ONE ×3 (02:40→05:06)
[2023-06-30] MEDS: DILTIAZEM 125 MG in SODIUM CHLORIDE 0.9% 100 ML IV SCH (02:40)
[2023-06-30] MEDS: MAGNESIUM SULFATE-D5W PMX 1 GM in DEXTROSE/WATER 1 100ML.BAG IVPB SCH (03:49)
[2023-06-30] MEDS: POTASSIUM BICARBONATE/CIT AC 20 MEQ TABLET.EFF PO ONE (03:54)
[2023-06-30] MEDS: IPRATROPIUM-ALBUTEROL 3 ML NEB INHALATION STA (03:59)
--- NOTE | 2023-06-30 04:04 | XR ---
EXAMINATION TYPE: XR chest 1V portable DATE OF EXAM: 06/30/2023 CLINICAL HISTORY: Difficulty breathing progress study. TECHNIQUE: Single AP portable upright view of the chest is obtained. COMPARISON: Chest x-ray from one day earlier FINDINGS: There is worsening left mid to lower lung increased opacity. There is new right lower lung increased opacity. Increasing central vascular congestion. Cardiac silhouette size is stable and wit hin normal limits with ectatic thoracic aorta redemonstrated. Surgical change left humeral head again seen. IMPRESSION: There is new right lower lung acute infiltrate. There is worsening left mid to lower lung acute infiltrate.
[2023-06-30] MEDS: DEXTROSE 5% IN WATER 100 ML with AMIODARONE 150 MG IV ONE (04:31)
[2023-06-30] MEDS: AMIODARONE 360 MG in DEXTROSE 5% IN WATER 200 ML IV ONE (04:45)
--- NOTE | 2023-06-30 05:32 | P.CRDCN ---
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 Patient follows in the office with myself. We have been asked to see the patient in consultation for SVT and chest pain. Patient had seen a automobile spring repairer and was noted to be iron deficient and therefore underwent iron infusion 06/28. Shortly after an infusion patient began having chest pain, short of breath. Chest pain is left-sided and worse with deep inspiration. Additionally however he has been having fevers and chills over the last 24 hours. He also has been coughing up brown sputum and does have prior history of coughing up blood. He did have low-grade temperature 100.6. Viral panel was negative for RSV, influenza and covid. On presentation EKG showed sinus tachycardia with heart rate 103 bpm with frequent PVCs, left axis deviation, poor R-wave progression, no significant ST or T wave abnormalities. Patient then however converted into A. fib with RVR. I was contacted with reports of regular rhythm and SVT and therefore adenosine was given however no significant change. He therefore started on Cardizem drip and given Cardizem bolus with some improvement in heart rates down from 180s to the 140 range. He additionally was placed on amiodarone. He was having some increased respiratory complaints as well as chest pain. He does have prior history of heart catheterization from 1 year ago showing only mild 30% disease. Cardiac catheterization history: June 2022 revealing relatively normal coronary arteries other than mid LAD 30% stenosis, elevated left-sided filling pressures, moderate aortic stenosis Chest CTA showing no pulmonary embolism and bibasilar lung airspace opacities, correlate for pneumonia as well as hepatic cirrhosis and dilation of the ascending aorta up to 4.5 cm. Prior hemoglobin from March was 6.7 and currently has increased up to 11.4. Creatinine 1.6 which had previously been in the 2.3 range. Troponin 0.09, proBNP 8970. MAHESH from 03/15/2023 showed moderate aortic stenosis with aortic valve area 1.3 cm and moderate aortic insufficiency as well as mild mitral regurgitation with an ejection fraction 50-55%. REVIEW OF SYSTEMS: At the time of my exam: CONSTITUTIONAL: +Fever +chills. HEENT: Denies blurred vision, vision changes, or eye pain. Denies hemoptysis CARDIOVASCULAR: +atypical chest pain. Denies orthopnea. Denies PND. Denies palpitations RESPIRATORY: Denies shortness of breath. GASTROINTESTINAL: Denies abdominal pain. Denies nausea or vomiting. HEMATOLOGIC: Denies bleeding disorders. GENITOURINARY: Denies any blood in urine. SKIN: Denies pruitis. Denies rash. PHYSICAL EXAM: VITAL SIGNS: Reviewed. GENERAL: Well-developed in no acute distress. HEENT: Head is normocephalic. Pupils are equal, round. Sclerae anicteric. Mucous membranes of the mouth are moist. Neck supple. No JVD or thyromegaly LUNGS: Respirations even and unlabored. Lungs with decreased air exchange noted. HEART: Irregular rate and rhythm. S1 and S2 heard. + systolic murmur ABDOMEN: Soft. Nondistended. Nontender. EXTREMITIES: Normal range of motion. No clubbing or cyanosis. Peripheral pulses intact. No lower extremity edema NEUROLOGIC: Awake and alert. Oriented x 3. ASSESSMENT: Paroxysmal atrial fibrillation, currently A. fib with RVR Acute on chronic respiratory failure, likely multifactorial secondary to heart failure as well as possible pneumonia Bilateral pneumonia by CAT scan with recent fevers and chills Atypical chest pain, likely related to pneumonia, CTA showing no PE Mild chronically elevated troponins likely related to CKD, relatively normal LHC from 06/2022 Acute on chronic heart failure with preserved ejection fraction Moderate aortic stenosis and moderate aortic insufficiency by MAHESH 03/30 Ascending aortic aneurysm Relatively normal coronary arteries other than mid LAD 30% stenosis, per cardiac catheterization in June 2022 Nonischemic cardiomyopathy, EF 30-35%, improved by most recent echo Patent foraman ovale Chronic kidney disease Prior 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 X-ray and CAT scan findings consistent with pneumonia. Additionally however having A. fib with RVR and likely exacerbating heart failure with additional mild lower extremity edema. IV Lasix and monitor response. Most recent echo showing more moderate aortic stenosis and aortic insufficiency. Resume home medications. No anticoagulation at this time given recent hemoptysis and severe iron deficiency anemia. May consider outpatient Watchman Patient with intermittent severe A. fib in May consider outpatient ablation Continue IV amiodarone and IV Cardizem. Consider cardioversion if patient not controlled. Further recommendations pending patient's course Past Medical History Past Medical History: Cancer, Chest Pain / Angina, COPD, Hyperlipidemia, Hypertension, Liver Disease, Musculoskeletal Disorder, Pneumonia Additional Past Medical History / Comment(s): HX OF HEPATITIS C , hepatocellular carcinoma, LOW IRON , BACK PAIN, HERNIATED DISCS, SKIN CANCER, 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 Hospitalized last week for CHF & Pneumonia. Irr. heart rate @ times. History of Any Multi-Drug Resistant Organisms: None Reported Past Surgical History: Back Surgery, Heart Catheterization, Hernia Repair, Orthopedic Surgery Additional Past Surgical History / Comment(s): liver ablation done at [place] for tx of hepatocellular carcinoma,hemorrhoids ,back surgery, cataract, skin cancer, inguinal hernia, abdominal hernia, left shoulder, right wrist, growth re moved vocal cord, PAROTID GLAND REMOVED DUE TO CANCER. Past Anesthesia/Blood Transfusion Reactions: No Reported Reaction Additional Past Anesthesia/Blood Transfusion Reaction / Comment(s): no hx blood transfusion Past Psychological History: No Psychological Hx Reported Smoking Status: Former smoker Past Alcohol Use History: None Reported Past Drug Use History: None Reported - Past Family History Father Family Medical History: Cancer Medications and Allergies Home Medications Medication Instructions Recorded Confirmed Type amLODIPine [Norvasc] 10 mg PO DAILY 08/06/14 03/15/23 History Colchicine 0.6 mg PO DAILY 08/02/16 03/15/23 History Ferrous Sulfate [Iron (65 MG 325 mg PO DAILY 12/29/18 03/15/23 History Elemental)] Omeprazole 20 mg PO BID 05/16/20 03/13/23 History Fluticasone Propion/Salmeterol 1 puff INHALATION RT-BID 06/08/22 03/15/23 History [Wixela 250-50 Inhub] hydrALAZINE HCL [Apresoline] 100 mg PO TID 06/08/22 03/13/23 History Folic Acid 1 mg PO DAILY 01/14/23 03/15/23 History Tiotropium 2.5 Mcg/Puff [Spiriva 1 puff INHALATION RT-BID 01/14/23 03/13/23 History Respimat 2.5 Mcg] predniSONE 5 mg PO DAILY 01/14/23 03/15/23 History traZODone HCL [Desyrel] 50 mg PO HS 01/14/23 03/15/23 History Cholecalciferol [Vitamin D3 (25 25 mcg PO DAILY 02/11/23 03/15/23 History Mcg = 1000 Iu)] Multivit-Min/FA/Lycopen/Lutein 1 tab PO DAILY 02/11/23 03/13/23 History [Centrum Silver Tablet] Xylitol [Xylimelts] 500 mg MM HS 02/11/23 03/15/23 History Furosemide [Lasix] 40 mg PO BID@0900,1600 #60 tab 02/18/23 03/15/23 Rx Amiodarone [Cordarone] See Taper PO DAILY 03/07/23 03/15/23 History Apixaban [Eliquis] 5 mg PO BID 03/07/23 03/15/23 History Budesonide-Formot 160-4.5 Mcg 2 puff INHALATION RT-BID #1 each 03/10/23 03/15/23 Rx [Symbicort 160-4.5 Mcg Inhaler] Ipratropium-Albuterol Nebulize 3 ml INHALATION RT-QID #120 each 03/10/23 03/15/23 Rx [Duoneb 0.5 mg-3 mg/3 ml Soln] Isosorbide Mononitrate ER [Imdur] 30 mg PO DAILY #30 tab 03/10/23 03/15/23 Rx cefUROXime axetiL [Ceftin] 500 mg PO BID 3 Days #6 tab 03/10/23 03/15/23 Rx predniSONE 10 mg PO DIRECTED #30 tab 03/10/23 03/13/23 Rx Levofloxacin [Levaquin] 500 mg PO DAILY #9 tab 06/07/23 Rx Allergies Allergy/AdvReac Type Severity Reaction Status Date / Time No Known Allergies Allergy Verified 06/07/23 07:17 Physical Exam Vitals: Vital Signs Temp Pulse Resp BP BP Pulse Ox 06/30/23 04:07 22 114/74 96 06/30/23 04:05 146 H 06/30/23 04:00 140 H 06/30/23 03:40 165 H 22 118/89 96 06/30/23 03:05 174 H 27 H 100/86 94 L 06/30/23 02:46 170 H 30 H 113/80 94 L 06/30/23 02:43 189 H 22 129/91 91 L 06/30/23 02:25 181 H 22 119/76 92 L 06/30/23 02:20 100.6 F H 189 H 22 123/80 92 L 06/30/23 02:15 163 H 24 127/91 91 L 06/30/23 02:14 181 H 158/103 92 L 06/30/23 02:10 172 H 20 123/86 91 L 06/30/23 02:09 176 H 32 H 91 L 06/30/23 02:07 170 H 22 157/68 93 L 06/30/23 01:00 98 16 157/68 91 L 06/30/23 00:41 105 H 06/30/23 00:32 101 H 06/30/23 00:21 30 H 91 L 06/30/23 00:00 96 24 152/93 91 L 06/29/23 23:00 102 H 24 167/90 90 L 06/29/23 22:00 86 22 133/94 90 L 06/29/23 21:00 90 22 180/95 90 L 06/29/23 20:00 96 18 137/95 90 L 06/29/23 18:30 20 137/61 89 L 06/29/23 17:30 92 23 136/76 91 L 06/29/23 17:25 91 18 136/76 91 L 06/29/23 16:36 98.4 F 93 16 159/76 96 Intake and Output 06/29/23 06/29/23 06/30/23 14:59 22:59 06:59 Other: Weight 81.647 kg Results 06/29/23 17:13 06/29/23 17:13 Cardiac Enzymes 06/29/23 06/29/23 Range/Units 17:13 17:13 AST 37 (17-59) U/L Troponin I 0.095 H* (0.000-0.034) ng/mL Coagulation 06/29/23 Range/Units 17:13 PT 12.9 H (10.0-12.5) sec APTT 32.6 H (22.0-30.0) sec CBC 06/29/23 Range/Units 17:13 WBC 3.3 L (3.8-10.6) k/uL RBC 4.31 (4.30-5.90) m/uL Hgb 11.4 L (13.0-17.5) gm/dL Hct 35.5 L (39.0-53.0) % Plt Count 48 L (150-450) k/uL Comprehensive Metabolic Panel 06/29/23 Range/Units 17:13 Sodium 137 (137-145) mmol/L Potassium 3.4 L (3.5-5.1) mmol/L Chloride 106 (98-107) mmol/L Carbon Dioxide 19 L (22-30) mmol/L BUN 33 H (9-20) mg/dL Creatinine 1.63 H (0.66-1.25) mg/dL Glucose 100 H (74-99) mg/dL Calcium 8.4 (8.4-10.2) mg/dL AST 37 (17-59) U/L ALT 23 (4-49) U/L Alkaline Phosphatase 104 (38-126) U/L Total Protein 6.1 L (6.3-8.2) g/dL Albumin 3.2 L (3.5-5.0) g/dL Current Medications Generic Name Dose Route Start Last Admin Trade Name Freq PRN Reason Stop Dose Admin Albuterol Sulfate 2.5 mg 06/29/23 21:40 06/30/23 00:30 Albuterol Nebulized 2.5 Mg/3 Ml INHALATION 2.5 mg RT-Q4H PRN Administration Shortness Of Breath Or Wheezing Azithromycin 500 mg 06/29/23 20:00 06/29/23 20:22 Azithromycin 500 Mg Tab PO 07/02/23 21:01 500 mg HS RAFY Administration Protocol Ceftriaxone Sodium 2 gm/ 50 mls @ 100 mls/hr 06/29/23 20:00 06/29/23 20:23 Sodium Chloride IVPB 100 mls/hr DAILY RAFY Administration Protocol Sodium Chloride 1,000 mls @ 20 mls/hr 06/29/23 21:45 06/29/23 22:35 Saline 0.9% IV 20 mls/hr .Q24H RAFY Administration Diltiazem HCl 125 mg/ Sodium 125 mls @ 10 mls/hr 06/30/23 02:45 06/30/23 02:40 Chloride IV 10 mg/hr .[id number] RAFY 10 mls/hr Administration 10 MG/HR Magnesium Sulfate/Dextrose 1 100 mls @ 100 mls/hr 06/30/23 03:45 06/30/23 03:49 gm/ IV Solution IVPB 06/30/23 05:44 100 mls/hr Q1H RAFY Administration Amiodarone HCl 450 mg/ 250 mls @ 16.667 mls/hr 06/30/23 10:15 Dextrose/Water IV 07/01/23 04:14 .Q15H RAFY Protocol 0.5 MG/MIN Amiodarone HCl 360 mg/ 200 mls @ 33.333 mls/hr 06/30/23 04:17 06/30/23 04:45 Dextrose/Water IV 06/30/23 10:16 1 mg/min .Q6H ONE 33.333 mls/hr Administration Protocol 1 MG/MIN Melatonin 5 mg 06/29/23 21:45 06/29/23 22:34 Melatonin 5 Mg Tablet PO 5 mg HS RAFY Administration Miscellaneous Information 1 each 06/29/23 21:40 Pneumonia Protocol Utilized 1 Each Misc PO ONCE PRN Per Protocol Prednisone 5 mg 06/29/23 21:45 06/29/23 22:38 Prednisone 5 Mg Tab PO 5 mg DAILY RAFY Administration Trazodone HCl 50 mg 06/29/23 21:45 06/29/23 22:34 Trazodone Hcl 50 Mg Tab PO 50 mg HS RAFY Administration Intake and Output 06/29/23 06/29/23 06/30/23 14:59 22:59 06:59 Other: Weight 81.647 kg Patient Weight 06/30/23 06:59 Weight 81.647 kg 06/29/23 17:13 06/29/23 17:13
--- NOTE | 2023-06-30 07:45 | P.HPIM ---
History of Present Illness H&P Date: 06/30/23 Chief Complaint: Severe dyspnea and shortness of breath, bilateral pneumonia, A- fib with RVR HISTORY OF PRESENT ILLNESS: 73-year-old male one of my office patient who was diagnosed with hepatocellular carcinoma he is seen oncology more regular basis also has been seeing oncology regularly. Also is known to have history of A-fib with RVR history of hypertension, hyperlipidemia, history of chronic lower back pain and history of iron deficiency anemia which patient was diagnosed recently with more iron deficiency requiring iron infusion. Apparently shortly after his last infusion on June 28, 2023 by his oncologist he developed to have significant chest pain worsened with deep inspiration also was having fever and chills and coughing up twinge of blood started having worsening symptoms with his pulse rate is going I ended up coming to the emergency department at [facility] on on 06/29/2023 where was seen and evaluated with above symptoms chest x-ray showed an impressive sign of bibasilar pneumonia, ended up going for CTA for an elevated D-dimer and shows impressive sign of consolidation in the bases bilaterally worse on the right than the left side with slight pleural effusion as well. The patient has pneumonia beside severe pleurisy. Original EKG in the emergency department showed sinus tachycardia with arrhythmia after being in the emergency room for a period of time developed to have severe tachycardia with pulse rate running 160 to 200 bpm mostly irregular and A-fib, adenosine was giving initially and cardiology end up starting patient on amiodarone drip with pulse rate finally came down to the 70s. Patient was hospitalized with bilateral pneumonia, hypoxia, severe pleurisy, recurrent chest pain and A-fib with RVR. REVIEW OF SYSTEMS: CONSTITUTIONAL: Well-developed no acute respiratory distress. EYES: No icterus sclerae, no conjunctivitis. EARS, NOSE, MOUTH, THROAT, and FACE: No sore throat, lymphadenopathy, carotid bruits or deformity. RESPIRATORY: Positive cough shortness of breath and wheezes. CARDIOVASCULAR: Positive PND orthopnea palpitation. GASTROINTESTINAL: No Abd pain, Nausea or vomiting, no Diarrhea or constipation, No GI Bleed, slight distention abdominal discomfort. GENITOURINARY: Negative for Hematuria or UTI, no kidney stones. INTEGUMENT/BREAST: Negative for any muscular injury with mild osteoarthritis.. HEMATOLOGIC/LYMPHATIC: Negative for bleed or purpura. MUSCULOSKELTAL: Negative for Myalgia or arthralgia. NEURLOGICAL: No LOC, Sz or syncope, blurred vision dizziness or abnormality.. BEHAVIORAL/PSYCH: Negative. ENDOCRINE: Negative. PHYSICAL EXAMINATION: General Appearance: Alert, cooperative, no distress, appears stated age. Neck HEENT: Supple, no lymphadenopathy, no thyroid enlargement, no carotid bruits. Lungs: Decreased breath sound bases positive fine crackles in bibasilar area with rhonchi and expiratory wheezes. Chest Wall: Decreased expansion with deep inspiration no tenderness and no d eformity was found on exam, no costochondral pain or discomfort. Heart: Irregular rate and rhythm, S1, S2 positive S3 positive tachycardia with systolic murmur. No rub or gallop. Back: Symmetric, no curvature, ROM normal, no CVA tenderness. Abdomen: Soft positive bowel sounds slight discomfort in the right upper quadrant area slightly distention midepigastric discomfort as well. Extremities: Extremities normal, atraumatic, no cyanosis or edema. Pulses: 2+ and symmetric. Skin: Skin color, texture, tugor normal, no rashes or lesions. Neurologic: Alert oriented x3 cranial nerves II through XII intact, no motor deficit, no abnormal balance or gait. ASSESSMENT AND PLAN: _Bilateral pneumonia: With finding consistent on his chest x-ray, continue Rocephin and azithromycin for now continue updraft treatment. Will consult pulmonary. _Atypical chest pain following iron infusion and finding consistent with the infection and this is most likely atypical pleurisy and being or having to treat his infection along with being on smaller dose of steroid should be able to clear it up and take care of it. _A-fib with RVR: Patient will go back on his amiodarone along with Eliquis continue diltiazem IV for the time being he had 1 dose of adenosine to slow down the pulse little bit. _Nonobstructive coronary artery disease with mild stenosis post heart cath earlier this year patient is on medical management only did not require any treatment. _Hepatocellular carcinoma: Has been treated and managed with hematology and oncology continue current treatment. _Iron deficiency anemia: Has been seen oncology and he might have reaction to iron infusion may be changed the type of iron in our switch iron to different brand might help in the meanwhile He had his infusion need to be monitor slightly bit more. _Elevated troponin with possible non-ST MS as type II MS probably from hypoperfusion continue to watch symptoms carefully would leave it up to cardiology whether he need any testing. _Severe thrombocytopenia: Most likely from chemotherapy patient is going through for his hepatocellular carcinoma. _Acute kidney injury with chronic kidney disease: Creatinine is up to 1.63 continue hydration continue supportive care and watch kidney function more carefully. _Incidental finding of nodule of the lung: Patient will require probably follow- up CT in 3 to 6 months. _Ascending aortic aneurysm with size of 4.5 cm should be watched by cardiology and cardiothoracic. _Mild reactive airway/COPD: Remain on budesonide, ipratropium albuterol, Spiriva will continue medication. _Recurrent gout specially with his chemotherapy was on colchicine not clear why he is not on allopurinol at this point we will watch for any recurrent plaque. _Hypertension: Has been doing well on hydralazine 100 mg 3 times a day along with amlodipine 10 mg daily will benefit probably from staying on smaller dose of beta-mt. _Severe GERD/GI prophylaxis continue patient on omeprazole. _DVT prophylaxis: Patient is full on anticoagulation. CODE STATUS: Full code. Admit patient to the inpatient service for more than 2 night stay. 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 Hospitalized last week for CHF & Pneumonia. Irr. heart rate @ times. History of Any Multi-Drug Resistant Organisms: None Reported Past Surgical History: Back Surgery, Heart Catheterization, Hernia Repair, Orthopedic Surgery Additional Past Surgical History / Comment(s): liver ablation done at [place] for tx of hepatocellular carcinoma,hemorrhoids ,back surgery, cataract, skin cancer, inguinal hernia, abdominal hernia, left shoulder, right wrist, growth removed vocal cord, PAROTID GLAND REMOVED DUE TO CANCER. Past Anesthesia/Blood Transfusion Reactions: No Reported Reaction Additional Past Anesthesia/Blood Transfusion Reaction / Comment(s): no hx blood transfusion Past Psychological History: No Psychological Hx Reported Smoking Status: Former smoker Past Alcohol Use History: None Reported Past Drug Use History: None Reported - Past Family History Father Family Medical History: Cancer Medications and Allergies Home Medications Medication Instructions Recorded Confirmed Type amLODIPine [Norvasc] 10 mg PO DAILY 08/06/14 03/15/23 History Colchicine 0.6 mg PO DAILY 08/02/16 03/15/23 History Ferrous Sulfate [Iron (65 MG 325 mg PO DAILY 12/29/18 03/15/23 History Elemental)] Omeprazole 20 mg PO BID 05/16/20 03/13/23 History Fluticasone Propion/Salmeterol 1 puff INHALATION RT-BID 06/08/22 03/15/23 History [Wixela 250-50 Inhub] hydrALAZINE HCL [Apresoline] 100 mg PO TID 06/08/22 03/13/23 History Folic Acid 1 mg PO DAILY 01/14/23 03/15/23 History Tiotropium 2.5 Mcg/Puff [Spiriva 1 puff INHALATION RT-BID 01/14/23 03/13/23 History Respimat 2.5 Mcg] predniSONE 5 mg PO DAILY 01/14/23 03/15/23 History traZODone HCL [Desyrel] 50 mg PO HS 01/14/23 03/15/23 History Cholecalciferol [Vitamin D3 (25 25 mcg PO DAILY 02/11/23 03/15/23 History Mcg = 1000 Iu)] Multivit-Min/FA/Lycopen/Lutein 1 tab PO DAILY 02/11/23 03/13/23 History [Centrum Silver Tablet] Xylitol [Xylimelts] 500 mg MM HS 02/11/23 03/15/23 History Furosemide [Lasix] 40 mg PO BID@0900,1600 #60 tab 02/18/23 03/15/23 Rx Amiodarone [Cordarone] See Taper PO DAILY 03/07/23 03/15/23 History Apixaban [Eliquis] 5 mg PO BID 03/07/23 03/15/23 History Budesonide-Formot 160-4.5 Mcg 2 puff INHALATION RT-BID #1 each 03/10/23 03/15/23 Rx [Symbicort 160-4.5 Mcg Inhaler] Ipratropium-Albuterol Nebulize 3 ml INHALATION RT-QID #120 each 03/10/23 03/15/23 Rx [Duoneb 0.5 mg-3 mg/3 ml Soln] Isosorbide Mononitrate ER [Imdur] 30 mg PO DAILY #30 tab 03/10/23 03/15/23 Rx cefUROXime axetiL [Ceftin] 500 mg PO BID 3 Days #6 tab 03/10/23 03/15/23 Rx predniSONE 10 mg PO DIRECTED #30 tab 03/10/23 03/13/23 Rx Levofloxacin [Levaquin] 500 mg PO DAILY #9 tab 06/07/23 Rx Allergies Allergy/AdvReac Type Severity Reaction Status Date / Time No Known Allergies Allergy Verified 06/07/23 07:17 Physical Exam Vitals: Vital Signs Temp Pulse Resp BP BP Pulse Ox 06/30/23 06:45 15 121/67 95 06/30/23 06:30 15 123/69 95 06/30/23 06:15 17 127/81 97 06/30/23 06:00 22 133/75 95 06/30/23 05:45 25 H 130/80 96 06/30/23 05:30 25 H 111/70 96 06/30/23 05:15 28 H 119/72 96 06/30/23 05:00 29 H 121/69 94 L 06/30/23 04:45 22 108/91 94 L 06/30/23 04:30 23 104/86 96 06/30/23 04:15 24 125/78 96 06/30/23 04:05 146 H 06/30/23 04:00 140 H 22 114/74 96 06/30/23 03:40 165 H 22 118/89 96 06/30/23 03:05 174 H 27 H 100/86 94 L 06/30/23 02:46 170 H 30 H 113/80 94 L 06/30/23 02:43 189 H 22 129/91 91 L 06/30/23 02:25 181 H 22 119/76 92 L 06/30/23 02:20 100.6 F H 189 H 22 123/80 92 L 06/30/23 02:15 163 H 24 127/91 91 L 06/30/23 02:14 181 H 158/103 92 L 06/30/23 02:10 172 H 20 123/86 91 L 06/30/23 02:09 176 H 32 H 91 L 06/30/23 02:07 170 H 22 157/68 93 L 06/30/23 01:00 98 16 157/68 91 L 06/30/23 00:41 105 H 03/24/24 00:32 101 H 06/30/23 00:21 30 H 91 L 06/30/23 00:00 96 24 152/93 91 L 06/29/23 23:00 102 H 24 167/90 90 L 06/29/23 22:00 86 22 133/94 90 L 06/29/23 21:00 90 22 180/95 90 L 06/29/23 20:00 96 18 137/95 90 L 06/29/23 18:30 20 137/61 89 L 06/29/23 17:30 92 23 136/76 91 L 06/29/23 17:25 91 18 136/76 91 L 06/29/23 16:36 98.4 F 93 16 159/76 96 Intake and Output 06/29/23 06/30/23 06/30/23 22:59 06:59 14:59 Other: Weight 81.647 kg Results CBC & Chem 7: 06/29/23 17:13 06/29/23 17:13 Labs: Abnormal Lab Results - Last 24 Hours (Table) 06/29/23 06/29/23 06/29/23 Range/Units 17:13 17:13 17:13 WBC 3.3 L (3.8-10.6) k/uL Hgb 11.4 L (13.0-17.5) gm/dL Hct 35.5 L (39.0-53.0) % RDW 20.0 H (11.5-15.5) % Plt Count 48 L (150-450) k/uL Lymphocytes # 0.2 L (1.0-4.8) k/uL PT 12.9 H (10.0-12.5) sec INR 1.2 H (<1.2) APTT 32.6 H (22.0-30.0) sec D-Dimer 2.49 H (<0.60) mg/L FEU Potassium 3.4 L (3.5-5.1) mmol/L Carbon Dioxide 19 L (22-30) mmol/L BUN 33 H (9-20) mg/dL Creatinine 1.63 H (0.66-1.25) mg/dL Glucose 100 H (74-99) mg/dL Total Bilirubin 1.6 H (0.2-1.3) mg/dL Troponin I (0.000-0.034) ng/mL Total Protein 6.1 L (6.3-8.2) g/dL Albumin 3.2 L (3.5-5.0) g/dL 06/29/23 06/30/23 Range/Units 17:13 05:30 WBC (3.8-10.6) k/uL Hgb (13.0-17.5) gm/dL Hct (39.0-53.0) % RDW (11.5-15.5) % Plt Count (150-450) k/uL Lymphocytes # (1.0-4.8) k/uL PT (10.0-12.5) sec INR (<1.2) APTT (22.0-30.0) sec D-Dimer (<0.60) mg/L FEU Potassium (3.5-5.1) mmol/L Carbon Dioxide (22-30) mmol/L BUN (9-20) mg/dL Creatinine (0.66-1.25) mg/dL Glucose (74-99) mg/dL Total Bilirubin (0.2-1.3) mg/dL Troponin I 0.095 H* 0.156 H* (0.000-0.034) ng/mL Total Protein (6.3-8.2) g/dL Albumin (3.5-5.0) g/dL
[2023-06-30] MEDS ORDERED: NON FORMULARY DRUG (Fluticasone Propion/Salmeterol [Wixela 250-50 Inhub] 1 EACH Blst.W.Dev INHALATION SCH (08:00)
[2023-06-30] MEDS ORDERED: NON FORMULARY DRUG (Tiotropium 2.5 Mcg/Puff 10 PUFF Each) INHALATION SCH (08:00)
[2023-06-30] MEDS: SYMBICORT 160-4.5 MCG INHALER INHALATION SCH (08:04)
[2023-06-30] MEDS: IPRATROPIUM-ALBUTEROL 3 ML NEB INHALATION SCH (08:04)
[2023-06-30] MEDS ORDERED: FUROSEMIDE 40 MG TAB PO SCH (09:00)
[2023-06-30] MEDS: FOLIC ACID 1 MG TAB PO SCH (10:16)
[2023-06-30] MEDS: amLODIPine 10 MG TAB PO SCH (10:16)
[2023-06-30] MEDS: hydrALAZINE HCL 50 MG TAB PO SCH (10:16)
[2023-06-30] MEDS: MULTIVITAMINS, THERA 1 EACH TAB PO SCH (10:17)
[2023-06-30] MEDS: predniSONE 10 MG TAB PO SCH (10:17)
[2023-06-30] MEDS: CHOLECALCIFEROL 25 MCG (1000 IU) TABLET PO SCH (10:17)
[2023-06-30] MEDS: FUROSEMIDE 10 MG/ML 10 ML VIAL IV SCH (10:19)
[2023-06-30] MEDS: AMIODARONE 200 MG TAB PO SCH (10:34)
[2023-06-30] MEDS: FERROUS SULFATE 325 MG TAB PO SCH (10:35)
[2023-06-30] MEDS: AMIODARONE 450 MG in DEXTROSE 5% IN WATER 250 ML IV SCH (11:02)
[2023-06-30] MEDS: APIXABAN 5 MG TAB PO SCH (11:11)
[2023-06-30 11:43] LABS: Glucose,Whole Blood 174 mg/dL (70-110)
[2023-06-30] MEDS: HYDROcodone/APAP 10-325MG 1 EACH TAB PO SCH (11:54)
[2023-06-30] MEDS: ISOSORBIDE MONONITRATE ER 30 MG TAB.ER.24H PO SCH (11:54)
[2023-06-30] MEDS: PANTOPRAZOLE 40 MG TABLET PO SCH (11:54)
--- NOTE | 2023-06-30 12:27 | P.CNPUL ---
History of Present Illness Consult date: 06/30/23 Reason for consult: dyspnea, hypoxemia, pneumonia History of present illness: I am seeing this patient in consultation for shortness of breath and pneumonia. The patient has developed chest pain and pleurisy along the left lung. He is known to me. He has COPD and history of hepatocellular carcinoma of the liver along with hypertension, and hyperlipidemia. The patient arrived to the hospital for shortness of breath on the same time the patient was found to be in SVT. The patient was given adenosine and following that he was placed on a combination of Cardizem drip at 10 mg an hour and amiodarone drip. Cardiology is managing his rhythm problem. The patient's current cardiac rhythm is sinus. He may have been also in atrial fibrillation with RVR at time of admission. Today, the patient is currently comfortable on 60s of oxygen by nasal cannula. A CTA of the chest was done and showed multilobar pneumonia. There is a lingular consolidation and bilateral lower lobe consolidation and the patient also has hepatic cirrhosis with evidence of portal hypertension and fusiform ascending aortic aneurysm measuring 45 mm in size. There is no evidence of any pulmonary embolism and there is no evidence of any filling defect. The patient is currently on Rocephin and Zithromax. He has a congested cough. Will collect sputum on him. He is known to have chronic kidney disease and the creatinine is a stable at 1.6 and the patient had a sodium level of 137 with a potassium level of 3.4. Serum bicarb is at 19. Coagulation profile slightly abnormal with a PTT of 32 and INR of 1.2. D-dimer is at 2.49. The white cell count at 3.3 with a hemoglobin 11.5 and the platelet count is 48 related to chronic disease of the liver and cirrhosis. The patient is also on bronchodilators. No steroids at this point in time. Awake and alert and communicating. No dyspnea at rest. Review of Systems CONSTITUTIONAL: Positive for generalized weakness, fever. Denies any recent significant weight loss or weight gain. EYES: Denies change in vision. EARS, NOSE, MOUTH, THROAT: Denies headaches, denies sore throat. CARDIOVASCULAR: Denies chest pain, palpitations or syncopal episodes. RESPIRATORY: Positive for shortness of breath, cough, congestion no hemoptysis. Pleuritic chest pain on the left. GASTROINTESTINAL: Positive for nausea GENITOURINARY: Denies hematuria, denies infections. MUSKULOSKELETAL: Denies pain, denies swelling. INTEGUMENTARY: Denies rash, denies eczema. NEUROLOGICAL: Denies recent memory loss, no recent seizure activity. PSYCHIATRIC: Denies anxiety, denies depression. HEMATOLOGIC/LYMPHATIC: Denies anemia, denies enlarged lymph nodes. 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 Hospitalized last week for CHF & Pneumonia. Irr. heart rate @ times. History of Any Multi-Drug Resistant Organisms: None Reported Past Surgical History: Back Surgery, Heart Catheterization, Hernia Repair, Orthopedic Surgery Additional Past Surgical History / Comment(s): liver ablation done at [facility] for tx of hepatocellular carcinoma,hemorrhoids ,back surgery, cataract, skin cancer, inguinal hernia, abdominal hernia, left shoulder, right wrist, growth removed vocal cord, PAROTID GLAND REMOVED DUE TO CANCER. Past Anesthesia/Blood Transfusion Reactions: No Reported Reaction Additional Past Anesthesia/Blood Transfusion Reaction / Comment(s): no hx blood transfusion Past Psychological History: No Psychological Hx Reported Smoking Status: Former smoker Past Alcohol Use History: None Reported Past Drug Use History: None Reported - Past Family History Father Family Medical History: Cancer Medications and Allergies Home Medications Medication Instructions Recorded Confirmed Type amLODIPine [Norvasc] 10 mg PO DAILY 08/06/14 03/15/23 History Colchicine 0.6 mg PO DAILY 08/02/16 03/15/23 History Ferrous Sulfate [Iron (65 MG 325 mg PO DAILY 12/29/18 03/15/23 History Elemental)] Omeprazole 20 mg PO BID 05/16/20 03/13/23 History Fluticasone Propion/Salmeterol 1 puff INHALATION RT-BID 06/08/22 03/15/23 History [Wixela 250-50 Inhub] hydrALAZINE HCL [Apresoline] 100 mg PO TID 06/08/22 03/13/23 History Folic Acid 1 mg PO DAILY 01/14/23 03/15/23 History Tiotropium 2.5 Mcg/Puff [Spiriva 1 puff INHALATION RT-BID 01/14/23 03/13/23 History Respimat 2.5 Mcg] predniSONE 5 mg PO DAILY 01/14/23 03/15/23 History traZODone HCL [Desyrel] 50 mg PO HS 01/14/23 03/15/23 History Cholecalciferol [Vitamin D3 (25 25 mcg PO DAILY 02/11/23 03/15/23 History Mcg = 1000 Iu)] Multivit-Min/FA/Lycopen/Lutein 1 tab PO DAILY 02/11/23 03/13/23 History [Centrum Silver Tablet] Xylitol [Xylimelts] 500 mg MM HS 02/11/23 03/15/23 History Furosemide [Lasix] 40 mg PO BID@0900,1600 #60 tab 02/18/23 03/15/23 Rx Amiodarone [Cordarone] See Taper PO DAILY 03/07/23 03/15/23 History Apixaban [Eliquis] 5 mg PO BID 03/07/23 03/15/23 History Budesonide-Formot 160-4.5 Mcg 2 puff INHALATION RT-BID #1 each 03/10/23 03/15/23 Rx [Symbicort 160-4.5 Mcg Inhaler] Ipratropium-Albuterol Nebulize 3 ml INHALATION RT-QID #120 each 03/10/23 03/15/23 Rx [Duoneb 0.5 mg-3 mg/3 ml Soln] Isosorbide Mononitrate ER [Imdur] 30 mg PO DAILY #30 tab 03/10/23 03/15/23 Rx cefUROXime axetiL [Ceftin] 500 mg PO BID 3 Days #6 tab 03/10/23 03/15/23 Rx predniSONE 10 mg PO DIRECTED #30 tab 03/10/23 03/13/23 Rx Levofloxacin [Levaquin] 500 mg PO DAILY #9 tab 06/07/23 Rx Allergies Allergy/AdvReac Type Severity Reaction Status Date / Time No Known Allergies Allergy Verified 06/07/23 07:17 Physical Exam Vitals: Vital Signs Temp Pulse Resp BP BP Pulse Ox 06/30/23 08:15 77 06/30/23 08:05 72 93 L 06/30/23 07:31 97.3 F L 72 22 123/69 92 L 06/30/23 07:00 18 127/72 93 L 06/30/23 06:45 15 121/67 95 06/30/23 06:30 15 123/69 95 06/30/23 06:15 17 127/81 97 06/30/23 06:00 22 133/75 95 06/30/23 05:45 25 H 130/80 96 06/30/23 05:30 25 H 111/70 96 06/30/23 05:15 28 H 119/72 96 06/30/23 05:00 29 H 121/69 94 L 06/30/23 04:45 22 108/91 94 L 06/30/23 04:30 23 104/86 96 06/30/23 04:15 24 125/78 96 06/30/23 04:05 146 H 06/30/23 04:00 140 H 22 114/74 96 06/30/23 03:40 165 H 22 118/89 96 06/30/23 03:05 174 H 27 H 100/86 94 L 06/30/23 02:46 170 H 30 H 113/80 94 L 06/30/23 02:43 189 H 22 129/91 91 L 06/30/23 02:25 181 H 22 119/76 92 L 06/30/23 02:20 100.6 F H 189 H 22 123/80 92 L 06/30/23 02:15 163 H 24 127/91 91 L 06/30/23 02:14 181 H 158/103 92 L 06/30/23 02:10 172 H 20 123/86 91 L 06/30/23 02:09 176 H 32 H 91 L 06/30/23 02:07 170 H 22 157/68 93 L 06/30/23 01:00 98 16 157/68 91 L 06/30/23 00:41 105 H 06/30/23 00:32 101 H 06/30/23 00:21 30 H 91 L 06/30/23 00:00 96 24 152/93 91 L 06/29/23 23:00 102 H 24 167/90 90 L 06/29/23 22:00 86 22 133/94 90 L 06/29/23 21:00 90 22 180/95 90 L 06/29/23 20:00 96 18 137/95 90 L 06/29/23 18:30 20 137/61 89 L 06/29/23 17:30 92 23 136/76 91 L 06/29/23 17:25 91 18 136/76 91 L 06/29/23 16:36 98.4 F 93 16 159/76 96 Intake and Output 06/29/23 06/30/23 06/30/23 22:59 06:59 14:59 Other: Weight 81.647 kg GENERAL EXAM: Alert, pleasant 73-year-old male patient, up in a chair, on 6 l, comfortable in no apparent distress. No signs of any encephalopathy. HEAD: Normocephalic. EYES: Normal reaction of pupils, equal size. NOSE: Clear with pink turbinates. THROAT: No erythema or exudates. NECK: No masses, no JVD. CHEST: No chest wall deformity. LUNGS: Equal air entry with bilateral scattered rhonchi. The patient has diminished breath sounds and crackles lung base bilaterally. No wheezes. CVS: S1 and S2 normal with no audible murmur, regular rhythm. ABDOMEN: No hepatosplenomegaly, normal bowel sounds, no guarding or rigidity. SPINE: No scoliosis or deformity SKIN: No rashes CENTRAL NERVOUS SYSTEM: No focal deficits, tone is normal in all 4 extremities. EXTREMITIES: There is no peripheral edema. No clubbing, no cyanosis. Perip heral pulses are intact. Results - Laboratory Findings CBC and BMP: 06/29/23 17:13 06/29/23 17:13 PT/INR, D-dimer PT 12.9 sec (10.0-12.5) H 06/29/23 17:13 INR 1.2 (<1.2) H 06/29/23 17:13 D-Dimer 2.49 mg/L FEU (<0.60) H 06/29/23 17:13 Abnormal lab findings: Abnormal Labs 06/29/23 06/29/23 06/29/23 17:13 17:13 17:13 WBC 3.3 L Hgb 11.4 L Hct 35.5 L RDW 20.0 H Plt Count 48 L Lymphocytes # 0.2 L PT 12.9 H INR 1.2 H APTT 32.6 H D-Dimer 2.49 H Potassium 3.4 L Carbon Dioxide 19 L BUN 33 H Creatinine 1.63 H Glucose 100 H Total Bilirubin 1.6 H Troponin I Total Protein 6.1 L Albumin 3.2 L 06/29/23 06/30/23 17:13 05:30 WBC Hgb Hct RDW Plt Count Lymphocytes # PT INR APTT D-Dimer Potassium Carbon Dioxide BUN Creatinine Glucose Total Bilirubin Troponin I 0.095 H* 0.156 H* Total Protein Albumin - Diagnostic Findings Chest x-ray: image reviewed CT scan - chest: image reviewed Assessment and Plan Plan: Acute multilobar pneumonia complicated by hypoxic respiratory failure and worsening shortness of breath. Currently hospitalized on 6 L of O2 nasal cannula Acute hypoxic khurram failure currently on 60 L with nasal cannula History of liver cirrhosis and previous history of hepatitis C and hepatocellular carcinoma Pancytopenia likely related to chronic liver disease COPD, based on FEV1 of 59% of predicted consistent with moderately severe COPD Systolic heart failure with an ejection fraction of 35% and impaired LV function Paroxysmal atrial fibrillation/SVT. Currently on amiodarone drip and Cardizem drip and hydro operator on the case. Moderate aortic stenosis Chronic stage III kidney disease Hypertension Hyperlipidemia Chronic back pain related to herniated disc History of parotid gland cancer postradiation therapy Plan Titrate oxygen flow to maintain saturation above 90%, currently on 6 L Continue Rocephin and Zithromax Obtain sputum Gram stain and culture DuoNeb nebulized treatments [id number] Continue Symbicort and prednisone maintenance at a dose of 10 mg p.o. daily. The patient has been maintained on Spiriva and Symbicort on outpatient basis. Cardiology to manage the patient's atrial fibrillation. The patient is currently on a combination of Cardizem drip and amiodarone. Current cardiac rhythm is back to sinus. The patient is not on anticoagulation. May need to resume Eliquis for anticoagulants Resume home medications We will continue to follow.
[2023-06-30 14:38] LABS: Anisocytosis Slight; Basophils % (A) 0 %; Eosinophils % (A) 0 %; HCT 32.8 % (39.0-53.0); Hypochromasia Slight; Lymphocytes # (A) 0.1 k/uL (1.0-4.8); Lymphocytes % (A) 5 %; MCH 25.5 pg (25.0-35.0); MCHC 30.6 g/dL (31.0-37.0); MCV 83.6 fL (80.0-100.0); Mean Platelet Volume 8.8; Microcytosis Slight; Monocytes # (A) 0.1 k/uL (0-1.0); Monocytes % (A) 4 %; Neutrophils # (A) 2.1 k/uL (1.3-7.7); Neutrophils % (A) 90 %; RBC 3.92 m/uL (4.30-5.90); RDW 19.9 % (11.5-15.5); WBC 2.3 k/uL (3.8-10.6)
[2023-06-30 14:42] LABS: Platelet Count 39 k/uL (150-450)
[2023-06-30 15:21] LABS: African American GFR (CKD) 41 (>60 ml/min/1.73 sqM); Anion Gap 9 mmol/L; Blood Urea Nitrogen 37 mg/dL (9-20); Calcium 8.1 mg/dL (8.4-10.2); Carbon Dioxide 22 mmol/L (22-30); Chloride 102 mmol/L (98-107); Glucose 171 mg/dL (74-99); Magnesium 1.9 mg/dL (1.6-2.3); Non-African American GFR(CKD) 35 (>60 ml/min/1.73 sqM); Potassium 3.5 mmol/L (3.5-5.1); Sodium 133 mmol/L (137-145)
[2023-06-30 16:20] LABS: Glucose,Whole Blood 166 mg/dL (70-110)
[2023-06-30] MEDS: COLCHICINE 0.6 MG EACH PO SCH (17:32)
[2023-06-30 20:00] LABS: Glucose,Whole Blood 175 mg/dL (70-110)
[2023-06-30] MEDS ORDERED: XYLITOL MM SCH (21:00)
[2023-06-30] MEDS: traZODone HCL 50 MG TAB PO SCH (22:09)
[2023-07-01 06:12] LABS: Glucose,Whole Blood 136 mg/dL (70-110)
--- NOTE | 2023-07-01 10:36 | XR ---
EXAMINATION TYPE: XR chest 2V DATE OF EXAM: 07/01/2023 COMPARISON: 06/30/2023 INDICATION: Pneumonia cough congestion TECHNIQUE: Frontal and lateral views of the chest are obtained. FINDINGS: The heart size is normal. The pulmonary vasculature is normal. Infiltrate is at the left perihilar and left lower lobe. This is improving from comparison. Mild resi dual infiltrate remains at the right lung base, improved from comparison.. IMPRESSION: 1. Improving bilateral lung infiltrates predominantly in the left mid and lower lung wisdom. Continue d follow-up is recommended.
[2023-07-01 11:55] LABS: Glucose,Whole Blood 110 mg/dL (70-110)
[2023-07-01] MEDS: NYSTATIN 100,000 UNIT/ML SUSP 500,000 UNIT/5 ML CUP PO SCH (11:59)
--- NOTE | 2023-07-01 12:34 | P.CONS ---
History of Present Illness - Reason for Consult Consult date: 07/01/23 Anemia, HCC Requesting physician: Drew Medrano - Chief Complaint hemoptysis, chest pain - History of Present Illness Mr. Morales is a 73-year-old male patient of Dr. Guy who he follows for HCC as well as iron deficiency anemia. He was initially seen in 2017 when he was being worked up by cardiology for chest pain and shortness of breath, pulmonary workup was negative, cardiac catheterization was planned and patient's platelets were noted to be at 68,000. Platelets had been low/progressively lowering for the last several years. He has a known history of hepatitis C and cirrhosis. He did complete antiviral treatment in 2015. He has chronic liver disease with resulting splenomegaly. History of moderate to heavy EtOH use in the past. Anemia workup did reveal a low normal B12 with an elevated MMA indicating functional B12 deficiency, he was started on parenteral B12. He had skin cancers removed from his face. Patient was monitored, a liver lesion increased from 0.7 cm to 1.1 cm per MRIs done 06/2017 and 12/2017. CT chest 01/17/2018 was negative other than 2 subcentimeter nodules 2 and 4 mm in the right upper lobe. T-spine lesions or suspicious, bone scan and MRI were negative. RFA was advised to the liver lesion and was done at [facility] 02/2018. Repeat imaging 04/2018, patient reported small lesion that was nonspecific. Additional imaging 07/24/2018 showed another lesion, he had ablation at [facility] 08/2018. Patient continued to follow-up with negative findings. In November 2018 patient's hemoglobin dropped, iron deficiency on workup. EGD 03/2019 showed small varices and portal gastropathy. He was started on oral iron, hemoglobin increased to the 12 range by April 2019. Patient had a drop in hemoglobin to 7.8 on labs done at [facility] 07/2019. Further workup showed iron deficiency. Also noted was a low WBC and platelets, platelets at patient baseline range. Some lung nodules were seen on CT scan. Patient received IV iron. He was admitted to the hospital 05/2020 with A-fib and pneumonia. Cardiology decided against anticoagulation because of high risk of bleeding-chronic liver disease, chronic thrombocytopenia, known varices. Patient has received intermittent parenteral iron with no complications. He receives B12 every other month. Patient noted an enlarged lymph node in the right neck 02/2021. Ultrasound confirmed 1.1 x 1.4 cm mass in the submandibular area. Referred to ENT. 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 Further workup by ENT oncology felt that this was a primary parotid tumor rather than a metastatic node. PET showed uptake only in the right parotid mass. Patient had a full evaluation to rule out any other ENT primary, had surgical resection 05/22/2021. He had adjuvant radiation but, tolerated poorly, therefore he did not complete the recommended course. He has had extensive cardiac workup for complaints of weakness, shortness of breath ect. He completed cardiac monitoring. Patient's symptoms spontaneously resolved. Patient had COVID and bacterial pneumonia at the same time March 2023. He developed severe anemia requiring packed red blood cell transfusions. He was transferred to [facility]. EGD at that time was negative. Stool studies were negative. He went to [facility] for about 3 weeks on oral iron. He was back home mid April 2023. He received IV iron. He was seen in the emergency department 06/2023 for pneumonia and elevated troponins. He was seen by Cardiology as an outpatient, not not certain of all those re sults. Last seen in [facility] 06/28/23 for feraheme infusion. Patient is currently admitted with complaints of chest pain and difficulty in breathing. He reports that it was a few hours after receiving his IV iron. He reports that its most uncomfortable and the left lower part of his chest. He does not feel that his symptoms are much improved since admission. He also reports coughing up of blood, denies any rash, lip or tongue swelling, his mouth is irritated from breathing treatments. He reports that he is due for blood draw and ultrasound follow-up for HCC in 2 weeks. He had a CTA of the chest, no filling defect to suggest a PE some lower lobe consolidation left greater than right. Nodular contour to the liver with a hypodense area. Spleen reported as enlarged. Labs from admission show a hemoglobin of 10, hematocrit 32.8, WBCs 2.3, platelet count 39,000. BUN 37 creatinine 1.88. Patient denied any fevers prior to admit. 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 Hospitalized last week for CHF & Pneumonia. Irr. heart rate @ times. History of Any Multi-Drug Resistant Organisms: None Reported Past Surgical History: Back Surgery, Heart Catheterization, Hernia Repair, Orthopedic Surgery Additional Past Surgical History / Comment(s): liver ablation done at [facility] for tx of hepatocellular carcinoma,hemorrhoids ,back surgery, cataract, skin cancer, inguinal hernia, abdominal hernia, left shoulder, right wrist, growth removed vocal cord, PAROTID GLAND REMOVED DUE TO CANCER. Past Anesthesia/Blood Transfusion Reactions: No Reported Reaction Additional Past Anesthesia/Blood Transfusion Reaction / Comm: no hx blood transfusion Smoking Status: Former smoker - Past Family History Father Family Medical History: Cancer Medications and Allergies Home Medications Medication Instructions Recorded Confirmed Type amLODIPine [Norvasc] 10 mg PO DAILY 08/06/14 06/30/23 History Colchicine 0.6 mg PO DAILY 08/02/16 06/30/23 History Ferrous Sulfate [Iron (65 MG 325 mg PO DAILY 12/29/18 06/30/23 History Elemental)] hydrALAZINE HCL [Apresoline] 100 mg PO TID 06/08/22 06/30/23 History Tiotropium 2.5 Mcg/Puff [Spiriva 2 puff INHALATION RT-DAILY 01/14/23 06/30/23 History Respimat 2.5 Mcg] predniSONE 7.5 mg PO DAILY 01/14/23 06/30/23 History traZODone HCL [Desyrel] 50 mg PO HS 01/14/23 06/30/23 History Cholecalciferol [Vitamin D3 (25 25 mcg PO DAILY 02/11/23 06/30/23 History Mcg = 1000 Iu)] Multivit-Min/FA/Lycopen/Lutein 1 tab PO DAILY 02/11/23 06/30/23 History [Centrum Silver Tablet] Apixaban [Eliquis] 2.5 mg PO BID 03/07/23 06/30/23 History Albuterol Inhaler [Ventolin Hfa 2 puff INHALATION RT-Q6H PRN 06/30/23 06/30/23 History Inhaler] Fluticasone Propion/Salmeterol 1 puff INHALATION RT-BID 06/30/23 06/30/23 History [Wixela 500-50 Inhub] Folic Acid 0.4 mg PO DAILY 06/30/23 06/30/23 History HYDROcodone/APAP 10-325MG [[place] 1 tab PO TID 06/30/23 06/30/23 History 10-325] Pantoprazole Sodium [Protonix] 20 mg PO BID 06/30/23 06/30/23 History Allergies Allergy/AdvReac Type Severity Reaction Status Date / Time No Known Allergies Allergy Verified 06/07/23 07:17 Physical Exam Vitals: Vital Signs Temp Pulse Pulse Resp BP Pulse Ox 07/01/23 09:06 68 07/01/23 08:52 68 07/01/23 08:00 97.6 F 76 18 160/74 94 L 07/01/23 04:00 98.0 F 64 18 127/67 94 L 07/01/23 02:00 66 18 07/01/23 00:00 98.0 F 66 18 114/54 95 06/30/23 21:25 66 06/30/23 21:12 64 06/30/23 20:00 97.6 F 65 18 119/64 96 06/30/23 16:18 68 06/30/23 16:07 70 06/30/23 15:32 97.7 F 63 18 138/75 94 L 06/30/23 13:50 20 06/30/23 12:14 69 06/30/23 11:58 67 Intake and Output 06/30/23 07/01/23 07/01/23 22:59 06:59 14:59 Intake Total 236 480 Output Total 0 Balance 236 0 480 Intake: Oral 236 480 Output: Urine 0 Other: Voiding Method External Catheter External Catheter # Bowel Movements 1 Weight 82 kg - Constitutional General appearance: average body habitus, cooperative, no acute distress - EENT Eyes: anicteric sclerae, EOMI ENT: hearing grossly normal - Respiratory Respiratory: left: rhonchi, wheezing, bilateral: diminished (bases) - Cardiovascular Rhythm: regular Heart sounds: normal: S1, S2 Abnormal Heart Sounds: systolic murmur leg Peripheral Edema: bilateral: 1+ - Gastrointestinal General gastrointestinal: distended, normal bowel sounds, soft - Integumentary Integumentary: normal - Neurologic Neurologic: CNII-XII intact - Musculoskeletal Musculoskeletal: generalized weakness, strength equal bilaterally - Psychiatric Psychiatric: A&O x's 3, appropriate affect, intact judgment & insight Results CBC & Chem 7: 06/30/23 14:18 06/30/23 14:18 Labs: Abnormal Lab Results - Last 24 Hours (Table) 06/30/23 06/30/23 06/30/23 Range/Units 14:18 14:18 16:18 WBC 2.3 L (3.8-10.6) k/uL RBC 3.92 L (4.30-5.90) m/uL Hgb 10.0 L (13.0-17.5) gm/dL Hct 32.8 L (39.0-53.0) % MCHC 30.6 L (31.0-37.0) g/dL RDW 19.9 H (11.5-15.5) % Plt Count 39 L (150-450) k/uL Lymphocytes # 0.1 L (1.0-4.8) k/uL Sodium 133 L (137-145) mmol/L BUN 37 H (9-20) mg/dL Creatinine 1.88 H (0.66-1.25) mg/dL Glucose 171 H (74-99) mg/dL POC Glucose (mg/dL) 166 H (70-110) mg/dL Calcium 8.1 L (8.4-10.2) mg/dL 06/30/23 07/01/23 Range/Units 19:58 06:10 WBC (3.8-10.6) k/uL RBC (4.30-5.90) m/uL Hgb (13.0-17.5) gm/dL Hct (39.0-53.0) % MCHC (31.0-37.0) g/dL RDW (11.5-15.5) % Plt Count (150-450) k/uL Lymphocytes # (1.0-4.8) k/uL Sodium (137-145) mmol/L BUN (9-20) mg/dL Creatinine (0.66-1.25) mg/dL Glucose (74-99) mg/dL POC Glucose (mg/dL) 175 H 136 H (70-110) mg/dL Calcium (8.4-10.2) mg/dL Microbiology - Last 24 Hours (Table) 06/30/23 10:45 Gram Stain - Preliminary Sputum CT scan - chest: report reviewed Assessment and Plan (1) Hemoptysis Current Visit: Yes Status: Acute Priority: High Code(s): R04.2 - HEMOPTY SIS SNOMED Code(s): 45343701 (2) HCC (hepatocellular carcinoma) Current Visit: No Status: Chronic Priority: Medium Code(s): C22.0 - LIVER CELL CARCINOMA SNOMED Code(s): 012371283 (3) Pancytopenia Current Visit: Yes Status: Acute Priority: Medium Code(s): D61.818 - OTHER PANCYTOPENIA SNOMED Code(s): 261629372 Plan: HCC -Known history of the same. No active treatment currently. Patient is treated intermittently with radiofrequency ablation based on lesions. -Patient follows with Dr. Mckeon. Follow-up labs and imaging in 2 weeks, lissette long with this plan of care. 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 Likely exacerbated with acute pneumonia and CHF -Low WBC with an adequate ANC 2.1, no acute intervention. Counts lower than baseline because of EtOH marrow dysfunction exacerbated by acute infection. Need to monitor counts. Would anticipate recovery to baseline as acute medical conditions are treated. -Anemia. Hgb was 11.6 on 06/20. Patient has received 1 dose of parenteral iron for iron deficiency, next dose was due tomorrow. This will be on hold for now until patient's acute medical conditions are treated adequately. Understand that patient did not feel well a few hours after receiving IV iron. Do not feel that patient's complaints-chest pain, difficulty in breathing and coughing up of blood-are a direct result of parenteral iron administration. Lab results are consistent with some heart strain, possibly CHF which can cause the difficulty in breathing. Patient has what looks like a left lower lobe pneumonia on imaging, this is where patient points to with taking a deep inspiration as to where he feels discomfort. Hemoptysis may be related to varices which can be exacerbated when the patient is in CHF. Cardiology and Pulmonary are consulted. Doctor attests: I performed a history and physical examination of this patient, developed impression and plan of care. Discussed with dictator. I agree with dictators note, documented as a scribe.
[2023-07-01 16:14] LABS: Glucose,Whole Blood 134 mg/dL (70-110)
--- NOTE | 2023-07-01 16:14 | CDI ---
Documentation Clarification Form Date: From: Simi Huber Phone: [phone] Admit Date: 06/29/2023 09:43:00 PM Patient Name: Chaitanya Morales Visit Number: [id number] Discharge Date: ATTENTION: The Clinical Documentation Specialists (CDI) and [facility] Coding Staff appreciate your assistance in clarifying documentation. Please respond to the clarification below the line at the bottom and electronically sign. The CDI & [facility] Coding staff will review the response and follow-up if needed. Please note: Queries are made part of the Legal Health Record. If you have any questions, please contact the author of this message via ITS. Dr. Drew Medrano Conflicting documentation has been found in the medical record. As attending physician, please provide clarification. "Mild chronically elevated troponins likely related to CKD" - Per Cardiology Note on 06/29 "possible non-ST OK as type II OK" - Per H&P on 06/29 History/Risk Factors: "73-year-old male one of my office patient who was diagnosed with hepatocellular carcinoma he is seen oncology more regular basis also has been seeing oncology regularly. Also is known to have history of A-fib with RVR history of hypertension, hyperlipidemia, history of chronic lower back pain and history of iron deficiency anemia" - Per H&P on 06/29 Clinical Indicators: "CARDIOVASCULAR: +atypical chest pain." "Atypical chest pain, likely related to pneumonia, CTA showing no PE" - Per Cardiology Note on 06/29 "EKG showed sinus tachycardia with heart rate 103 bpm with frequent PVCs, left axis deviation, poor R-wave progression, no significant ST or T wave abnormalities." - Per Cardiology Note on 06/29 Troponin: 06/28 - 0.095, . - 0.156 Treatment: Per Cardiology Note on 06/29 "IV Lasix and monitor response. Most recent echo showing more moderate aortic stenosis and aortic insufficiency. Resume home medications. No anticoagulation at this time given recent hemoptysis and severe iron deficiency anemia. May consider outpatient Watchman Patient with intermittent severe A. fib in May consider outpatient ablation Continue IV amiodarone and IV Cardizem. Consider cardioversion if patient not controlled." Please clarify which diagnosis is most appropriate: [ ] Elevated troponin due to chronic myocardial injury without myocardial infarction [ xx ] Type 2 OK is a valid diagnosis as evidenced by the following: __A Fib with RVR and Hypoperfusion [ ] No additional diagnosis/Not clinically significant [ ] Other, please specify [ ] Unable to determine MTDD
--- NOTE | 2023-07-01 16:27 | P.PN ---
Subjective Progress Note Date: 07/01/23 Principal diagnosis: Acute multilobar pneumonia and acute hypoxic respiratory failure I am seeing this patient in consultation for shortness of breath and pneumonia. The patient has developed chest pain and pleurisy along the left lung. He is known to me. He has COPD and history of hepatocellular carcinoma of the liver along with hypertension, and hyperlipidemia. The patient arrived to the hospital for shortness of breath on the same time the patient was found to be in SVT. The patient was given adenosine and following that he was placed on a combination of Cardizem drip at 10 mg an hour and amiodarone drip. Cardiology is managing his rhythm problem. The patient's current cardiac rhythm is sinus. He may have been also in atrial fibrillation with RVR at time of admission. Today, the patient is currently comfortable on 60s of oxygen by nasal cannula. A CTA of the chest was done and showed multilobar pneumonia. There is a lingular consolidation and bilateral lower lobe consolidation and the patient also has hepatic cirrhosis with evidence of portal hypertension and fusiform ascending aortic aneurysm measuring 45 mm in size. There is no evidence of any pulmonary embolism and there is no evidence of any filling defect. The patient is currently on Rocephin and Zithromax. He has a congested cough. Will collect sputum on him. He is known to have chronic kidney disease and the creatinine is a stable at 1.6 and the patient had a sodium level of 137 with a potassium level of 3.4. Serum bicarb is at 19. Coagulation profile slightly abnormal with a PTT of 32 and INR of 1.2. D-dimer is at 2.49. The white cell count at 3.3 with a hemoglobin 11.5 and the platelet count is 48 related to chronic disease of the liver and cirrhosis. The patient is also on bronchodilators. No steroids at this point in time. Awake and alert and communicating. No dyspnea at rest. Patient was reevaluated today on 07/01/2023, remains quite symptomatic, continues to have shortness of breath, he is on 4 L nasal cannula with O2 sats of 94%, WBC count is 2.3 hemoglobin is 10 basic metabolic profile is normal renal profile is worsening with creatinine up to 1.88 today. Negative influenza negative Legionella negative RSV and negative COVID-19 screening, BNP level on this admission was 8970 and his troponin level is rising. Remains on antibiotics, remains on diltiazem and amiodarone. And also on bronchodilators for underlying COPD patient was also placed on nystatin for presumptive thrush, patient is having sore throat but I did not actually see thrush. Objective - Vital Signs Vital signs: Vital Signs Temp 97.6 F 07/01/23 08:00 Pulse 82 07/01/23 12:00 Resp 18 07/01/23 14:00 BP 173/79 07/01/23 12:00 Pulse Ox 94 L 07/01/23 12:00 FiO2 Intake & Output 06/30/23 07/01/23 07/01/23 18:59 06:59 18:59 Intake Total 677.5 598 Output Total 625 0 Balance 52.5 0 598 Weight 81.647 kg 82 kg Intake: Intake, IV Titration 83.5 Amount Diltiazem 125 mg In 83.5 Sodium Chloride 0.9% 100 ml @ 10 MG/HR 10 mls/hr IV .[id number] [facility] Rx#: [id number] Oral 594 598 Output: Urine 625 0 Other: Voiding Method External Catheter External Catheter # Bowel Movements 1 - Exam GENERAL EXAM: Alert, pleasant 73-year-old male patient, up in a chair, on 4 L nasal cannula HEAD: Normocephalic. EYES: Normal reaction of pupils, equal size. NOSE: Clear with pink turbinates. THROAT: No erythema or exudates. NECK: No masses, no JVD. CHEST: No chest wall deformity. LUNGS: Scattered rhonchi noted bilaterally no wheezing. CVS: S1 and S2 normal with no audible murmur, regular rhythm. ABDOMEN: No hepatosplenomegaly, normal bowel sounds, no guarding or rigidity. SKIN: No rashes CENTRAL NERVOUS SYSTEM: Alert oriented x 3 no gross focal deficit EXTREMITIES: No clubbing no edema no cyanosis - Labs CBC & Chem 7: 06/30/23 14:18 06/30/23 14:18 Labs: Abnormal Lab Results - Last 24 Hours (Table) 06/30/23 06/30/23 07/01/23 Range/Units 16:18 19:58 06:10 POC Glucose (mg/dL) 166 H 175 H 136 H (70-110) mg/dL 07/01/23 Range/Units 16:12 POC Glucose (mg/dL) 134 H (70-110) mg/dL Microbiology - Last 24 Hours (Table) 06/29/23 20:05 Blood Culture - Preliminary Blood 06/29/23 19:50 Blood Culture - Preliminary Blood 06/30/23 10:45 Gram Stain - Preliminary Sputum Assessment and Plan Assessment: Impression Acute multilobar pneumonia complicated by acute hypoxic respiratory failure and worsening shortness of breath. History of liver cirrhosis and previous history of hepatitis C and hepatocellular carcinoma Pancytopenia likely related to chronic liver disease COPD, based on FEV1 of 59% of predicted consistent with moderately severe COPD Acute on chronic systolic heart failure with an ejection fraction of 35% and impaired LV function Paroxysmal atrial fibrillation/SVT. Remains on amiodarone and Cardizem Moderate aortic stenosis Chronic stage III kidney disease Hypertension Chronic back pain related to herniated disc History of parotid gland cancer postradiation therapy Recommendation: Continue oxygen and titrate accordingly Continue antibiotics/Rocephin and Zithromax Continue bronchodilators, patient is having difficulty with Symbicort claiming it is giving him thrush, will discontinue Symbicort. Continue to treat his atrial fibrillation with RVR on admission Resume home meds Will continue to follow Time with Patient: Less than 30
[2023-07-01] MEDS: BENZOCAINE/MENTHOL LOZENG 1 EACH LOZENGE MUCOUS MEM PRN (16:47)
[2023-07-01 20:10] LABS: Glucose,Whole Blood 133 mg/dL (70-110)
[2023-07-01] MEDS: METOPROLOL TARTRATE 12.5 MG TAB PO SCH (22:04)
--- NOTE | 2023-07-01 23:11 | P.PN ---
Subjective Progress Note Date: 07/01/23 HISTORY OF PRESENT ILLNESS: 73-year-old male one of my office patient who was diagnosed with hepatocellular carcinoma he is seen oncology more regular basis also has been seeing oncology regularly. Also is known to have history of A-fib with RVR history of hypertension, hyperlipidemia, history of chronic lower back pain and history of iron deficiency anemia which patient was diagnosed recently with more iron deficiency requiring iron infusion. Apparently shortly after his last infusion on June 28, 2023 by his oncologist he developed to have significant chest pain worsened with deep inspiration also was having fever and chills and coughing up twinge of blood started having worsening symptoms with his pulse rate is going I ended up coming to the emergency department at [facility] on on 06/29/2023 where was seen and evaluated with above symptoms chest x-ray showed an impressive sign of bibasilar pneumonia, ended up going for CTA for an elevated D-dimer and shows impressive sign of consolidation in the bases bilaterally worse on the right than the left side with slight pleural effusion as well. The patient has pneumonia beside severe pleurisy. Original EKG in the emergency department showed sinus tachycardia with arrhythmia after being in the emergency room for a period of time developed to have severe tachycardia with pulse rate running 160 to 200 bpm mostly irregular and A-fib, adenosine was giving initially and cardiology end up starting patient on amiodarone drip with pulse rate finally came down to the 70s. Patient was hospitalized with bilateral pneumonia, hypoxia, severe pleurisy, recurrent chest pain and A-fib with RVR. 07/01/2023: Continue to see pulmonary continue to have mild to moderate shortness of breath require 4 L of O2 to keep his pulse ox around 94% while white blood cells down to 2300 creatinine is up to 1.88, with infiltrate in both lung wisdom specially in the right side patient remain on IV antibiotics also is remain on amiodarone and diltiazem along with anticoagulation. 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 Also patient continues to have mild hemoptysis most likely related to his severe left lower lobe pneumonia can continue to be watched little more carefully. REVIEW OF SYSTEMS: CONSTITUTIONAL: Well-developed no acute respiratory distress. EYES: No icterus sclerae, no conjunctivitis. EARS, NOSE, MOUTH, THROAT, and FACE: No sore throat, lymphadenopathy, carotid bruits or deformity. RESPIRATORY: Positive cough shortness of breath and wheezes. CARDIOVASCULAR: Positive PND orthopnea palpitation. GASTROINTESTINAL: No Abd pain, Nausea or vomiting, no Diarrhea or constipation, No GI Bleed, slight distention abdominal discomfort. GENITOURINARY: Negative for Hematuria or UTI, no kidney stones. INTEGUMENT/BREAST: Negative for any muscular injury with mild osteoarthritis.. HEMATOLOGIC/LYMPHATIC: Negative for bleed or purpura. MUSCULOSKELTAL: Negative for Myalgia or arthralgia. NEURLOGICAL: No LOC, Sz or syncope, blurred vision dizziness or abnormality.. BEHAVIORAL/PSYCH: Negative. ENDOCRINE: Negative. PHYSICAL EXAMINATION: General Appearance: Alert, cooperative, no distress, appears stated age. Neck HEENT: Supple, no lymphadenopathy, no thyroid enlargement, no carotid bruits. Lungs: Decreased breath sound bases positive fine crackles in bibasilar area with rhonchi and expiratory wheezes. Chest Wall: Decreased expansion with deep inspiration no tenderness and no deformity was found on exam, no costochondral pain or discomfort. Heart: Irregular rate and rhythm, S1, S2 positive S3 positive tachycardia with systolic murmur. No rub or gallop. Back: Symmetric, no curvature, ROM normal, no CVA tenderness. Abdomen: Soft positive bowel sounds slight discomfort in the right upper quadrant area slightly distention midepigastric discomfort as well. Extremities: Extremities normal, atraumatic, no cyanosis or edema. Pulses: 2+ and symmetric. Skin: Skin color, texture, tugor normal, no rashes or lesions. Neurologic: Alert oriented x3 cranial nerves II through XII intact, no motor deficit, no abnormal balance or gait. ASSESSMENT AND PLAN: _Bilateral pneumonia: With finding consistent on his chest x-ray, continue Rocephin and azithromycin for now continue updraft treatment. Still seen pulmonary and agree with the current treatment management, most of the viral culture are completely negative. _Atypical chest pain following iron infusion and finding consistent with the infection and this is most likely atypical pleurisy and being or having to treat his infection along with being on smaller dose of steroid should be able to clear it up and take care of it. _A-fib with RVR: Continue amiodarone and diltiazem and remain on Eliquis at this point. _Nonobstructive coronary artery disease with mild stenosis post heart cath earlier this year patient is on medical management only did not require any treatment. _Hepatocellular carcinoma: Still seeing gastroenterology and oncology he is not on any active chemotherapy. _Iron deficiency anemia: Has been seen oncology and he might have reaction to iron infusion may be changed the type of iron in our switch iron to different brand might help in the meanwhile He had his infusion need to be monitor slightly bit more. _Elevated troponin with possible non-ST HI as type II HI probably from hypoperfusion continue to watch symptoms carefully would leave it up to cardiology whether he need any testing. _Severe thrombocytopenia: Most likely from sequestration secondary to his chronic kidney disease. _Acute kidney injury with chronic kidney disease: Creatinine is up to 1.63 continue hydration continue supportive care and watch kidney function more carefully. _Incidental finding of nodule of the lung: Patient will require probably follow- up CT in 3 to 6 months. _Ascending aortic aneurysm with size of 4.5 cm should be watched by cardiology and cardiothoracic. _Mild reactive airway/COPD: Remain on budesonide, ipratropium albuterol, Spiriva will continue medication. _Recurrent gout specially with his chemotherapy was on colchicine not clear why he is not on allopurinol at this point we will watch for any recurrent plaque. _Hypertension: Has been doing well on hydralazine 100 mg 3 times a day along with amlodipine 10 mg daily will benefit probably from staying on smaller dose of beta-mt. Prognosis: Is clear with the possibility of complication is very high at this point. Objective - Vital Signs Vital signs: Vital Signs Temp 98.0 F 07/01/23 04:00 Pulse 64 07/01/23 04:00 Resp 18 07/01/23 04:00 BP 127/67 07/01/23 04:00 Pulse Ox 94 L 07/01/23 04:00 FiO2 Intake & Output 06/30/23 06/30/23 07/01/23 06:59 18:59 06:59 Intake Total 677.5 Output Total 625 0 Balance 52.5 0 Weight 81.647 kg 82 kg Intake: Intake, IV Titration 83.5 Amount Diltiazem 125 mg In 83.5 Sodium Chloride 0.9% 100 ml @ 10 MG/HR 10 mls/hr IV .[id number] [facility] Rx#: [id number] Oral 594 Output: Urine 625 0 Other: Voiding Method External Catheter External Catheter # Bowel Movements 1 - Labs CBC & Chem 7: 06/30/23 14:18 06/30/23 14:18 Labs: Abnormal Lab Results - Last 24 Hours (Table) 06/30/23 06/30/23 06/30/23 Range/Units 05:30 11:41 14:18 WBC 2.3 L (3.8-10.6) k/uL RBC 3.92 L (4.30-5.90) m/uL Hgb 10.0 L (13.0-17.5) gm/dL Hct 32.8 L (39.0-53.0) % MCHC 30.6 L (31.0-37.0) g/dL RDW 19.9 H (11.5-15.5) % Plt Count 39 L (150-450) k/uL Lymphocytes # 0.1 L (1.0-4.8) k/uL Sodium (137-145) mmol/L BUN (9-20) mg/dL Creatinine (0.66-1.25) mg/dL Glucose (74-99) mg/dL POC Glucose (mg/dL) 174 H (70-110) mg/dL Calcium (8.4-10.2) mg/dL Troponin I 0.156 H* (0.000-0.034) ng/mL 06/30/23 06/30/23 06/30/23 Range/Units 14:18 16:18 19:58 WBC (3.8-10.6) k/uL RBC (4.30-5.90) m/uL Hgb (13.0-17.5) gm/dL Hct (39.0-53.0) % MCHC (31.0-37.0) g/dL RDW (11.5-15.5) % Plt Count (150-450) k/uL Lymphocytes # (1.0-4.8) k/uL Sodium 133 L (137-145) mmol/L BUN 37 H (9-20) mg/dL Creatinine 1.88 H (0.66-1.25) mg/dL Glucose 171 H (74-99) mg/dL POC Glucose (mg/dL) 166 H 175 H (70-110) mg/dL Calcium 8.1 L (8.4-10.2) mg/dL Troponin I (0.000-0.034) ng/mL 07/01/23 Range/Units 06:10 WBC (3.8-10.6) k/uL RBC (4.30-5.90) m/uL Hgb (13.0-17.5) gm/dL Hct (39.0-53.0) % MCHC (31.0-37.0) g/dL RDW (11.5-15.5) % Plt Count (150-450) k/uL Lymphocytes # (1.0-4.8) k/uL Sodium (137-145) mmol/L BUN (9-20) mg/dL Creatinine (0.66-1.25) mg/dL Glucose (74-99) mg/dL POC Glucose (mg/dL) 136 H (70-110) mg/dL Calcium (8.4-10.2) mg/dL Troponin I (0.000-0.034) ng/mL
--- NOTE | 2023-07-01 23:28 | PN ---
PROGRESS NOTE SUBJECTIVE: Mr. Morales was in atrial fibrillation or PAT, but he has converted to sinus rhythm. He looks and feels better. He also has a pneumonia as well, which is being addressed by the admitting doctor. Clinically, he is doing better. We will continue his current medical regimen. He has past medical history of atrial fibrillation, moderate aortic stenosis, chronic kidney disease, and also parotid gland cancer status post resection. OBJECTIVE: CARDIAC: Revealed regular rhythm, S1, S2 with a short systolic murmur at the base and left sternal border. LUNGS: Revealed diminished air entry. ABDOMEN: Unchanged. LOWER EXTREMITIES: Unchanged. PLAN: Continue current medications and place him on 12.5 mg b.i.d. of metoprolol tartrate. Possible discharge in the next 24 to 48 hours. MMODL / IJN: [id number] /
[2023-07-01] MEDS: MORPHINE SULFATE 2 MG/ML SYRINGE IVP PRN (23:32)
[2023-07-02] MEDS: diphenhydrAMINE 50 MG/ML 1 ML VIAL IVP STA (03:51)
[2023-07-02] MEDS: FAMOTIDINE 20 MG/2 ML VIAL IV SCH (03:51)
[2023-07-02] MEDS: DEXAMETHASONE SOD PHOSPHATE 4 MG/ML 1 ML VIAL IVP SCH (03:51)
[2023-07-02] MEDS ORDERED: methylPREDNISolone SOD SUCCI 125 MG/2 ML VIAL IV SCH (06:00)
[2023-07-02] MEDS ORDERED: diphenhydrAMINE 50 MG/ML 1 ML VIAL IVP SCH (06:00)
[2023-07-02 06:09] LABS: Glucose,Whole Blood 103 mg/dL (70-110)
[2023-07-02] MEDS: diphenhydrAMINE 50 MG/ML 1 ML VIAL IVP SCH (06:46)
[2023-07-02 08:09] LABS: ALT 27 U/L (4-49); AST 48 U/L (17-59); African American GFR (CKD) 44 (>60 ml/min/1.73 sqM); Albumin 3.2 g/dL (3.5-5.0); Alkaline Phosphatase 94 U/L (38-126); Anion Gap 11 mmol/L; Blood Urea Nitrogen 42 mg/dL (9-20); Calcium 8.9 mg/dL (8.4-10.2); Carbon Dioxide 26 mmol/L (22-30); Chloride 100 mmol/L (98-107); Glucose 111 mg/dL (74-99); Non-African American GFR(CKD) 38 (>60 ml/min/1.73 sqM); Potassium 3.4 mmol/L (3.5-5.1); Sodium 137 mmol/L (137-145); Total Bilirubin 0.8 mg/dL (0.2-1.3); Total Protein 6.2 g/dL (6.3-8.2)
[2023-07-02 08:10] LABS: Anisocytosis Slight; HCT 36.9 % (39.0-53.0); HGB 11.6 gm/dL (13.0-17.5); MCH 25.8 pg (25.0-35.0); MCHC 31.3 g/dL (31.0-37.0); MCV 82.3 fL (80.0-100.0); Microcytosis Slight; RBC 4.48 m/uL (4.30-5.90); RDW 19.6 % (11.5-15.5)
[2023-07-02 08:13] LABS: Platelet Count 75 k/uL (150-450)
[2023-07-02 08:53] LABS: Anisocytosis Slight; Basophils % (A) 0 %; Eosinophils % (A) 1 %; HCT 38.3 % (39.0-53.0); HGB 11.9 gm/dL (13.0-17.5); Lymphocytes # (A) 0.1 k/uL (1.0-4.8); Lymphocytes % (A) 3 %; MCH 25.5 pg (25.0-35.0); MCHC 31.1 g/dL (31.0-37.0); MCV 82.1 fL (80.0-100.0); Mean Platelet Volume 10.3; Microcytosis Slight; Monocytes # (A) 0.2 k/uL (0-1.0); Monocytes % (A) 5 %; Neutrophils % (A) 90 %; RBC 4.66 m/uL (4.30-5.90); RDW 19.7 % (11.5-15.5); WBC 3.3 k/uL (3.8-10.6)
[2023-07-02 08:57] LABS: ALT 28 U/L (4-49); AST 45 U/L (17-59); African American GFR (CKD) 39 (>60 ml/min/1.73 sqM); Albumin 3.3 g/dL (3.5-5.0); Alkaline Phosphatase 99 U/L (38-126); Anion Gap 13 mmol/L; Blood Urea Nitrogen 41 mg/dL (9-20); Calcium 9.2 mg/dL (8.4-10.2); Carbon Dioxide 25 mmol/L (22-30); Chloride 99 mmol/L (98-107); Glucose 113 mg/dL (74-99); Non-African American GFR(CKD) 34 (>60 ml/min/1.73 sqM); Potassium 3.5 mmol/L (3.5-5.1); Sodium 137 mmol/L (137-145); Total Bilirubin 0.9 mg/dL (0.2-1.3); Total Protein 6.4 g/dL (6.3-8.2)
[2023-07-02] MEDS ORDERED: FAMOTIDINE 20 MG/2 ML VIAL IV SCH (09:00)
[2023-07-02 09:03] LABS: Platelet Count 84 k/uL (150-450)
[2023-07-02] MEDS: DOXYCYCLINE 100 MG in SODIUM CHLORIDE 0.9% 100 ML IVPB SCH (09:08)
[2023-07-02 11:35] LABS: Glucose,Whole Blood 122 mg/dL (70-110)
[2023-07-02] MEDS: POTASSIUM CHLORIDE ER 20 MEQ TAB.ER PO STA (12:54)
--- NOTE | 2023-07-02 14:34 | P.PN ---
Subjective Progress Note Date: 07/02/23 Principal diagnosis: Acute multilobar pneumonia and acute hypoxic respiratory failure I am seeing this patient in consultation for shortness of breath and pneumonia. The patient has developed chest pain and pleurisy along the left lung. He is known to me. He has COPD and history of hepatocellular carcinoma of the liver along with hypertension, and hyperlipidemia. The patient arrived to the hospital for shortness of breath on the same time the patient was found to be in SVT. The patient was given adenosine and following that he was placed on a combination of Cardizem drip at 10 mg an hour and amiodarone drip. Cardiology is managing his rhythm problem. The patient's current cardiac rhythm is sinus. He may have been also in atrial fibrillation with RVR at time of admission. Today, the patient is currently comfortable on 60s of oxygen by nasal cannula. A CTA of the chest was done and showed multilobar pneumonia. There is a lingular consolidation and bilateral lower lobe consolidation and the patient also has hepatic cirrhosis with evidence of portal hypertension and fusiform ascending aortic aneurysm measuring 45 mm in size. There is no evidence of any pulmonary embolism and there is no evidence of any filling defect. The patient is currently on Rocephin and Zithromax. He has a congested cough. Will collect sputum on him. He is known to have chronic kidney disease and the creatinine is a stable at 1.6 and the patient had a sodium level of 137 with a potassium level of 3.4. Serum bicarb is at 19. Coagulation profile slightly abnormal with a PTT of 32 and INR of 1.2. D-dimer is at 2.49. The white cell count at 3.3 with a hemoglobin 11.5 and the platelet count is 48 related to chronic disease of the liver and cirrhosis. The patient is also on bronchodilators. No steroids at this point in time. Awake and alert and communicating. No dyspnea at rest. Patient was reevaluated today on 07/01/2023, remains quite symptomatic, continues to have shortness of breath, he is on 4 L nasal cannula with O2 sats of 94%, WBC count is 2.3 hemoglobin is 10 basic metabolic profile is normal renal profile is worsening with creatinine up to 1.88 today. Negative influenza negative Legionella negative RSV and negative COVID-19 screening, BNP level on this admission was 8970 and his troponin level is rising. Remains on antibiotics, remains on diltiazem and amiodarone. And also on bronchodilators for underlying COPD patient was also placed on nystatin for presumptive thrush, patient is having sore throat but I did not actually see thrush. Reevaluate today on 07/02/2023, patient developed a significant episode of angioedema yesterday, treated with multiple medications as per protocol for angioedema feeling better today, his angioedema has completely resolved, however his pulmonary status remains about the same. Patient was admitted with multifocal pneumonia and acute COPD exacerbation as well as atrial fibrillation and RVR. His Rocephin was discontinued, he is now on Zithromax and doxycycline, remains on Decadron which I will continue for the next 24 hours, remains on Benadryl, and he is also on Pepcid. Patient remains on diuretics, this was transitioned to oral Lasix. WBC count today is 3.3 hemoglobin 11.9 basic metabolic profile is normal BUN however is 41 creatinine is up to 1.94 Objective - Vital Signs Vital signs: Vital Signs Temp 97.6 F 07/02/23 12:00 Pulse 79 07/02/23 12:00 Resp 16 07/02/23 12:00 BP 151/79 07/02/23 12:00 Pulse Ox 93 L 07/02/23 12:00 FiO2 Intake & Output 07/01/23 07/02/23 07/02/23 18:59 06:59 18:59 Intake Total 1078 100 Output Total 4500 1100 Balance 1078 -4500 -1000 Weight 80 kg Intake: Intake, IV Titration 100 Amount Doxycycline 100 mg In 100 Sodium Chloride 0.9% 100 ml @ 100 mls/hr IVPB Q12HR [facility] Rx#:[id number] Oral 1078 Output: Urine 4500 1100 Other: Voiding Method External Catheter Urinal # Voids 1 - Exam GENERAL EXAM: Alert, pleasant 73-year-old male patient, up in a chair, on 4 L nasal cannula HEAD: Normocephalic. EYES: Normal reaction of pupils, equal size. NOSE: Clear with pink turbinates. THROAT: No erythema or exudates. NECK: No masses, no JVD. CHEST: No chest wall deformity. LUNGS: Scattered rhonchi noted bilaterally no wheezing. CVS: S1 and S2 normal with no audible murmur, regular rhythm. ABDOMEN: No hepatosplenomegaly, normal bowel sounds, no guarding or rigidity. SKIN: No rashes CENTRAL NERVOUS SYSTEM: Alert oriented x 3 no gross focal deficit EXTREMITIES: No clubbing no edema no cyanosis - Labs CBC & Chem 7: 07/02/23 08:09 07/02/23 08:09 Labs: Abnormal Lab Results - Last 24 Hours (Table) 07/01/23 07/01/23 07/02/23 Range/Units 16:12 20:08 07:25 WBC 3.0 L (3.8-10.6) k/uL Hgb 11.6 L (13.0-17.5) gm/dL Hct 36.9 L (39.0-53.0) % RDW 19.6 H (11.5-15.5) % Plt Count 75 L D (150-450) k/uL Lymphocytes # (1.0-4.8) k/uL Potassium (3.5-5.1) mmol/L BUN (9-20) mg/dL Creatinine (0.66-1.25) mg/dL Glucose (74-99) mg/dL POC Glucose (mg/dL) 134 H 133 H (70-110) mg/dL Total Protein (6.3-8.2) g/dL Albumin (3.5-5.0) g/dL 07/02/23 07/02/23 07/02/23 Range/Units 07:25 08:09 08:09 WBC 3.3 L (3.8-10.6) k/uL Hgb 11.9 L (13.0-17.5) gm/dL Hct 38.3 L (39.0-53.0) % RDW 19.7 H (11.5-15.5) % Plt Count 84 L (150-450) k/uL Lymphocytes # 0.1 L (1.0-4.8) k/uL Potassium 3.4 L (3.5-5.1) mmol/L BUN 42 H 41 H (9-20) mg/dL Creatinine 1.77 H 1.94 H (0.66-1.25) mg/dL Glucose 111 H 113 H (74-99) mg/dL POC Glucose (mg/dL) (70-110) mg/dL Total Protein 6.2 L (6.3-8.2) g/dL Albumin 3.2 L 3.3 L (3.5-5.0) g/dL 07/02/23 Range/Units 11:34 WBC (3.8-10.6) k/uL Hgb (13.0-17.5) gm/dL Hct (39.0-53.0) % RDW (11.5-15.5) % Plt Count (150-450) k/uL Lymphocytes # (1.0-4.8) k/uL Potassium (3.5-5.1) mmol/L BUN (9-20) mg/dL Creatinine (0.66-1.25) mg/dL Glucose (74-99) mg/dL POC Glucose (mg/dL) 122 H (70-110) mg/dL Total Protein (6.3-8.2) g/dL Albumin (3.5-5.0) g/dL Microbiology - Last 24 Hours (Table) 06/29/23 20:05 Blood Culture - Preliminary Blood 06/29/23 19:50 Blood Culture - Preliminary Blood 07/01/23 09:01 Gram Stain - Preliminary Sputum Assessment and Plan Assessment: Impression Acute multilobar pneumonia complicated by acute hypoxic respiratory failure and worsening shortness of breath. Acute angioedema possibly related to medications or food ingestion. Exact etiology at this point is not clear however responded well to treatment History of liver cirrhosis and previous history of hepatitis C and hepatocellul ar carcinoma Pancytopenia likely related to chronic liver disease COPD, based on FEV1 of 59% of predicted consistent with moderately severe COPD Acute on chronic systolic heart failure with an ejection fraction of 35% and impaired LV function Paroxysmal atrial fibrillation/SVT. Remains on amiodarone and Cardizem Moderate aortic stenosis Chronic stage III kidney disease Hypertension Chronic back pain related to herniated disc History of parotid gland cancer postradiation therapy Recommendation: Continue Decadron, continue Pepcid, continue Benadryl and I agree with stopping Rocephin. Continue oxygen and titrate accordingly Continue antibiotics/Rocephin and Zithromax Continue bronchodilators, Continue to treat his atrial fibrillation with RVR on admission this is being addressed by cardiology Resume home meds Will continue to follow, not quite ready for discharge plan Time with Patient: Less than 30
--- NOTE | 2023-07-02 14:40 | P.PN ---
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 Patient follows in the office with myself. We have been asked to see the patient in consultation for SVT and chest pain. Patient had seen a office manager executive assistant and was noted to be iron deficient and therefore underwent iron infusion 06/28. Shortly after an infusion patient began having chest pain, short of breath. Chest pain is left-sided and worse with deep inspiration. Additionally however he has been having fevers and chills over the last 24 hours. He also has been coughing up brown sputum and does have prior history of coughing up blood. He did have low-grade temperature 100.6. Viral panel was negative for RSV, influenza and covid. On presentation EKG showed sinus tachycardia with heart rate 103 bpm with frequent PVCs, left axis deviation, poor R-wave progression, no significant ST or T wave abnormalities. Patient then however converted into A. fib with RVR. I was contacted with reports of regular rhythm and SVT and therefore adenosine was given however no significant change. He therefore started on Cardizem drip and given Cardizem bolus with some improvement in heart rates down from 180s to the 140 range. He additionally was placed on amiodarone. He was having some increased respiratory complaints as well as chest pain. He does have prior history of heart catheterization from 1 year ago showing only mild 30% disease. Cardiac catheterization history: June 2022 revealing relatively normal coronary arteries other than mid LAD 30% stenosis, elevated left-sided filling pressures, moderate aortic stenosis Chest CTA showing no pulmonary embolism and bibasilar lung airspace opacities, correlate for pneumonia as well as hepatic cirrhosis and dilation of the as cending aorta up to 4.5 cm. Prior hemoglobin from March was 6.7 and currently has increased up to 11.4. Creatinine 1.6 which had previously been in the 2.3 range. Troponin 0.09, proBNP 8970. MAHESH from 03/15/2023 showed moderate aortic stenosis with aortic valve area 1.3 cm and moderate aortic insufficiency as well as mild mitral regurgitation with an ejection fraction 50-55%. 07/01 Patient is found to be in sinus rhythm today with history of atrial fibrillation. He has been maintained on Lopressor 12.5 mg twice daily. Lab work for today reveals WBC 3.3, hemoglobin 1.9, platelet count 84. BUN 41 creatinine 1.94. He has been maintained on IV Lasix 80 mg every 12 hours as well as IV Solu-Medrol. Blood pressure 151/79, heart rate 79, pulse ox 93% on 4 L nasal cannula. PHYSICAL EXAM: VITAL SIGNS: Reviewed. GENERAL: Well-developed in no acute distress. HEENT: Head is normocephalic. Pupils are equal, round. Sclerae anicteric. LUNGS: Respirations even and unlabored. Lungs with decreased air exchange noted. HEART: Regular rate and rhythm. S1 and S2 heard. + systolic murmur ABDOMEN: Soft. Nondistended. Nontender. EXTREMITIES: No clubbing or cyanosis. Peripheral pulses intact. No lower extremity edema NEUROLOGIC: Awake and alert. Oriented x 3. ASSESSMENT: Paroxysmal atrial fibrillation, currently sinus rhythm Acute on chronic respiratory failure, likely multifactorial secondary to heart failure as well as possible pneumonia Bilateral pneumonia by CAT scan with recent fevers and chills Atypical chest pain, likely related to pneumonia, CTA showing no PE Mild chronically elevated troponins likely related to CKD, relatively normal LHC from 06/2022 Acute on chronic heart failure with preserved ejection fraction Moderate aortic stenosis and moderate aortic insufficiency by MAHESH 03/30 Ascending aortic aneurysm Relatively normal coronary arteries other than mid LAD 30% stenosis, per cardiac catheterization in June 2022 Nonischemic cardiomyopathy, EF 30-35%, improved by most recent echo Patent foraman ovale Chronic kidney disease 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 fib may consider outpatient ablation Further recommendations pending patient's course Nurse practitioner note has been reviewed, I agree with documented findings and plan of care. Patient was seen and examined. Objective - Vital Signs Vital signs: Vital Signs Temp 97.5 F L 07/02/23 08:00 Pulse 89 07/02/23 08:00 Resp 18 07/02/23 08:00 BP 164/93 07/02/23 08:00 Pulse Ox 96 07/02/23 08:00 FiO2 Intake & Output 07/01/23 07/02/23 07/02/23 18:59 06:59 18:59 Intake Total 1078 Output Total 4500 Balance 1078 -4500 Weight 80 kg Intake: Oral 1078 Output: Urine 4500 Other: Voiding Method External Catheter # Voids 1 - Labs CBC & Chem 7: 07/02/23 08:09 07/02/23 08:09 Labs: Abnormal Lab Results - Last 24 Hours (Table) 07/01/23 07/01/23 07/02/23 Range/Units 16:12 20:08 07:25 WBC 3.0 L (3.8-10.6) k/uL Hgb 11.6 L (13.0-17.5) gm/dL Hct 36.9 L (39.0-53.0) % RDW 19.6 H (11.5-15.5) % Plt Count 75 L D (150-450) k/uL Lymphocytes # (1.0-4.8) k/uL Potassium (3.5-5.1) mmol/L BUN (9-20) mg/dL Creatinine (0.66-1.25) mg/dL Glucose (74-99) mg/dL POC Glucose (mg/dL) 134 H 133 H (70-110) mg/dL Total Protein (6.3-8.2) g/dL Albumin (3.5-5.0) g/dL 07/02/23 07/02/23 07/02/23 Range/Units 07:25 08:09 08:09 WBC 3.3 L (3.8-10.6) k/uL Hgb 11.9 L (13.0-17.5) gm/dL Hct 38.3 L (39.0-53.0) % RDW 19.7 H (11.5-15.5) % Plt Count 84 L (150-450) k/uL Lymphocytes # 0.1 L (1.0-4.8) k/uL Potassium 3.4 L (3.5-5.1) mmol/L BUN 42 H 41 H (9-20) mg/dL Creatinine 1.77 H 1.94 H (0.66-1.25) mg/dL Glucose 111 H 113 H (74-99) mg/dL POC Glucose (mg/dL) (70-110) mg/dL Total Protein 6.2 L (6.3-8.2) g/dL Albumin 3.2 L 3.3 L (3.5-5.0) g/dL Microbiology - Last 24 Hours (Table) 07/01/23 09:01 Gram Stain - Preliminary Sputum 06/29/23 20:05 Blood Culture - Preliminary Blood 06/29/23 19:50 Blood Culture - Preliminary Blood 06/30/23 10:45 Gram Stain - Preliminary Sputum
[2023-07-02 16:20] LABS: Glucose,Whole Blood 120 mg/dL (70-110)
--- NOTE | 2023-07-02 18:23 | CDI ---
Documentation Clarification Form Date: From: Simi Huber Phone: [phone] Admit Date: 06/29/2023 09:43:00 PM Patient Name: Chaitanya Morales Visit Number: [id number] Discharge Date: ATTENTION: The Clinical Documentation Specialists (CDI) and [facility] Coding Staff appreciate your assistance in clarifying documentation. Please respond to the clarification below the line at the bottom and electronically sign. The CDI & [facility] Coding staff will review the response and follow-up if needed. Please note: Queries are made part of the Legal Health Record. If you have any questions, please contact the author of this message via ITS. Dr. Flores Humphries The patient has a heart rate of 92 and a respiratory rate of 23 documented in the flowsheets on 06/28. Based on this information and the findings below, is there an additional diagnosis that is clinically appropriate for this patient? History/Risk Factors: "73-year-old male one of my office patient who was diagnosed with hepatocellular carcinoma he is seen oncology more regular basis also has been seeing oncology regularly. Also is known to have history of A-fib with RVR history of hypertension, hyperlipidemia, history of chronic lower back pain and history of iron deficiency anemia" "Chief Complaint: Severe dyspnea and shortness of breath, bilateral pneumonia, A-fib with RVR" - Per H&P on 06/29 Clinical Indicators: "hospitalized with bilateral pneumonia, hypoxia, severe pleurisy, recurrent chest pain and A-fib with RVR." - Per H&P on 06/29 "Acute multilobar pneumonia complicated by hypoxic respiratory failure and worsening shortness of breath" - Per Pulmonology Consult note on 06/29 "chest x-ray showed an impressive sign of bibasilar pneumonia" - Per H&P on 06/29 WBC: 06/28 - 3.3, 06/29 -2.3, - 3.0, 3.3 Lactic acid: none Blood cultures collected 06/28: "No Growth After 48 Hours" - Updated 07/01 Vitals signs: 06/28 16:36 - Temp. 98.4, HR 93, RR 16, BP 159/76, O2 96% 06/28 17:30 - HR 92, RR 23, BP 136/76, O2 91% 06/28 23:00 - HR 102, RR 24, BP 167/90, O2 90% on 3L NC Treatment: "continue Rocephin and azithromycin" - Per H&P on 06/29 "Titrate oxygen flow to maintain saturation above 90%, currently on 6 L" "DuoNeb nebulized treatments [id number]" "Continue Symbicort and prednisone" - Per Pulmonology Consult note on 06/29 Is there an additional diagnosis that is clinically appropriate for this patient? [ ] Sepsis, present on admission [ ] Sepsis, developed during stay, not present on admission [ ] Severe Sepsis with organ failure [ ] No additional diagnosis/not clinically significant [ ] Other, please specify _SIRS [ ] Unable to determine SIRS Criteria: 2 or more of the following may indicate SIRS Temperature < 96.8F (36C) or > 101.0F (38.3C) Heart Rate > 90 bpm Respiratory Rate > 20 breaths/min or PaCO2 < 32 mmHg White Blood Cell Count > 12,000 or < 4,000 cells/mm3 or > 10% bands MTDD
[2023-07-02 20:22] LABS: Glucose,Whole Blood 139 mg/dL (70-110)
[2023-07-02] MEDS: APIXABAN 2.5 MG TABLET PO SCH (21:31)
--- NOTE | 2023-07-03 06:08 | P.PN ---
Subjective Progress Note Date: 07/02/23 HISTORY OF PRESENT ILLNESS: 73-year-old male one of my office patient who was diagnosed with hepatocellular carcinoma he is seen oncology more regular basis also has been seeing oncology regularly. Also is known to have history of A-fib with RVR history of hypertension, hyperlipidemia, history of chronic lower back pain and history of iron deficiency anemia which patient was diagnosed recently with more iron deficiency requiring iron infusion. Apparently shortly after his last infusion on June 28, 2023 by his oncologist he developed to have significant chest pain worsened with deep inspiration also was having fever and chills and coughing up twinge of blood started having worsening symptoms with his pulse rate is going I ended up coming to the emergency department at [facility] on on 06/29/2023 where was seen and evaluated with above symptoms chest x-ray showed an impressive sign of bibasilar pneumonia, ended up going for CTA for an elevated D-dimer and shows impressive sign of consolidation in the bases bilaterally worse on the right than the left side with slight pleural effusion as well. The patient has pneumonia beside severe pleurisy. Original EKG in the emergency department showed sinus tachycardia with arrhythmia after being in the emergency room for a period of time developed to have severe tachycardia with pulse rate running 160 to 200 bpm mostly irregular and A-fib, adenosine was giving initially and cardiology end up starting patient on amiodarone drip with pulse rate finally came down to the 70s. Patient was hospitalized with bilateral pneumonia, hypoxia, severe pleurisy, recurrent chest pain and A-fib with RVR. 07/01/2023: Continue to see pulmonary continue to have mild to moderate shortness of breath require 4 L of O2 to keep his pulse ox around 94% while white blood cells down to 2300 creatinine is up to 1.88, with infiltrate in both lung wisdom specially in the right side patient remain on IV antibiotics also is remain on amiodarone and diltiazem along with anticoagulation. 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 Also patient continues to have mild hemoptysis most likely related to his severe left lower lobe pneumonia can continue to be watched little more carefully. 07/02/2023: Patient developed overnight significant angioedema medical etiology could be reaction to Rocephin or reaction to iron both were held at this point patient antibiotic was switched to azithromycin and doxycycline while still on Decadron which was titrated last night higher with the reaction at this point. Would not clear etiology Not clear how is his swallowing will go speech therapy will be seeing patient will keep patient n.p.o. for now. As for the work on multifocal pneumonia along with acute exacerbation of COPD and A-fib with RVR all been treated continue antibiotics, continue steroid, continue updraft treatment on the clock, also will continue anticoagulation with Eliquis patient remain on metoprolol 12.5 mg twice a day originally was on amiodarone and verapamil IV and both were stopped. Pulse rate was better so far may be titration of beta-mt to a higher dose eventually would be more successful. REVIEW OF SYSTEMS: CONSTITUTIONAL: Well-developed no acute respiratory distress. EYES: No icterus sclerae, no conjunctivitis. EARS, NOSE, MOUTH, THROAT, and FACE: No sore throat, lymphadenopathy, carotid bruits or deformity. RESPIRATORY: Positive cough shortness of breath and wheezes. CARDIOVASCULAR: Positive PND orthopnea palpitation. GASTROINTESTINAL: No Abd pain, Nausea or vomiting, no Diarrhea or constipation, No GI Bleed, slight distention abdominal discomfort. GENITOURINARY: Negative for Hematuria or UTI, no kidney stones. INTEGUMENT/BREAST: Negative for any muscular injury with mild osteoarthritis.. HEMATOLOGIC/LYMPHATIC: Negative for bleed or purpura. MUSCULOSKELTAL: Negative for Myalgia or arthralgia. NEURLOGICAL: No LOC, Sz or syncope, blurred vision dizziness or abnormality.. BEHAVIORAL/PSYCH: Negative. ENDOCRINE: Negative. PHYSICAL EXAMINATION: General Appearance: Alert, cooperative, no distress, appears stated age. Neck HEENT: Supple, no lymphadenopathy, no thyroid enlargement, no carotid bruits. Lungs: Decreased breath sound bases positive fine crackles in bibasilar area with rhonchi and expiratory wheezes. Chest Wall: Decreased expansion with deep inspiration no tenderness and no deformity was found on exam, no costochondral pain or discomfort. Heart: Irregular rate and rhythm, S1, S2 positive S3 positive tachycardia with systolic murmur. No rub or gallop. Back: Symmetric, no curvature, ROM normal, no CVA tenderness. Abdomen: Soft positive bowel sounds slight discomfort in the right upper quadrant area slightly distention midepigastric discomfort as well. Extremities: Extremities normal, atraumatic, no cyanosis or edema. Pulses: 2+ and symmetric. Skin: Skin color, texture, tugor normal, no rashes or lesions. Neurologic: Alert oriented x3 cranial nerves II through XII intact, no motor deficit, no abnormal balance or gait. ASSESSMENT AND PLAN: _Bilateral multifocal pneumonia: With finding consistent on his chest x-ray, Still seen pulmonary and agree with the current treatment management, most of the viral culture are completely negative. Antibiotic was changed today to azithromycin and doxycycline. _Severe acute episode of angioedema: Not a clear etiology could be from Rocephin or morphine sulfate, iron all were stopped continue dexamethasone and Benadryl for now continue supportive care. _A-fib with RVR: Pulse rate is much better remain on Eliquis and metoprolol is off amiodarone and diltiazem for now, still seeing cardiology metoprolol probably will be titrated higher. _Atypical chest pain following iron infusion and finding consistent with the infection and this is most likely atypical pleurisy and being or having to treat his infection along with being on smaller dose of steroid should be able to clear it up and take care of it. _Hepatocellular carcinoma: Still seeing gastroenterology and oncology he is not on any active chemotherapy. _Iron deficiency anemia: Has been seen oncology and he might have reaction to iron infusion and given her diabetes angioedema could have been having a reaction to iron pills which should be stopped for now. _Nonobstructive coronary artery disease with mild stenosis post heart cath earlier this year patient is on medical management only did not require any treatment. _Elevated troponin with possible non-ST AR as type II AR probably from hypoperfusion continue to watch symptoms carefully would leave it up to cardiology whether he need any testing. _Severe thrombocytopenia: Most likely from sequestration secondary to his chronic kidney and liver disease. _Acute kidney injury with chronic kidney disease: Creatinine is up to 1.63 continue hydration continue supportive care and watch kidney function more carefully. _Incidental finding of nodule of the lung: Patient will require probably follow-up CT in 3 to 6 months. _Ascending aortic aneurysm with size of 4.5 cm should be watched by cardiology and cardiothoracic. _Mild reactive airway/COPD: Remain on budesonide, ipratropium albuterol, Spiriva will continue medication. _Recurrent gout specially with his chemotherapy was on colchicine not clear why he is not on allopurinol at this point we will watch for any recurrent plaque. _Hypertension: Has been doing well on hydralazine 100 mg 3 times a day along with amlodipine 10 mg daily will benefit probably from staying on smaller dose of beta-mt. Prognosis: Guarded. Discharge planning: Patient is still not stable enough at this point with multi complication happening on daily basis do not have a clear date for discharge yet. Objective - Vital Signs Vital signs: Vital Signs Temp 98.6 F 07/02/23 04:00 Pulse 63 07/02/23 04:00 Resp 18 07/02/23 04:00 BP 168/79 07/02/23 04:00 Pulse Ox 95 07/02/23 04:00 FiO2 Intake & Output 07/01/23 07/02/23 07/02/23 18:59 06:59 18:59 Intake Total 1078 Output Total 4500 Balance 1078 -4500 Weight 80 kg Intake: Oral 1078 Output: Urine 4500 Other: Voiding Method External Catheter # Voids 1 - Labs CBC & Chem 7: 07/02/23 08:09 07/02/23 08:09 Labs: Abnormal Lab Results - Last 24 Hours (Table) 07/01/23 07/01/23 Range/Units 16:12 20:08 POC Glucose (mg/dL) 134 H 133 H (70-110) mg/dL Microbiology - Last 24 Hours (Table) 06/29/23 20:05 Blood Culture - Preliminary Blood 06/29/23 19:50 Blood Culture - Preliminary Blood 06/30/23 10:45 Gram Stain - Preliminary Sputum
[2023-07-03 06:14] LABS: Glucose,Whole Blood 131 mg/dL (70-110)
[2023-07-03] MEDS: FUROSEMIDE 40 MG TAB PO SCH (08:45)
[2023-07-03 10:11] LABS: African American GFR (CKD) 33 (>60 ml/min/1.73 sqM); Anion Gap 12 mmol/L; Blood Urea Nitrogen 69 mg/dL (9-20); Calcium 9.1 mg/dL (8.4-10.2); Carbon Dioxide 27 mmol/L (22-30); Chloride 99 mmol/L (98-107); Glucose 118 mg/dL (74-99); Non-African American GFR(CKD) 28 (>60 ml/min/1.73 sqM); Sodium 138 mmol/L (137-145)
[2023-07-03 11:56] LABS: Glucose,Whole Blood 121 mg/dL (70-110)
--- NOTE | 2023-07-03 14:01 | P.PN ---
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 Patient follows in the office with myself. We have been asked to see the patient in consultation for SVT and chest pain. Patient had seen a television anchor and was noted to be iron deficient and therefore underwent iron infusion 06/28. Shortly after an infusion patient began having chest pain, short of breath. Chest pain is left-sided and worse with deep inspiration. Additionally however he has been having fevers and chills over the last 24 hours. He also has been coughing up brown sputum and does have prior history of coughing up blood. He did have low-grade temperature 100.6. Viral panel was negative for RSV, influenza and covid. On presentation EKG showed sinus tachycardia with heart rate 103 bpm with frequent PVCs, left axis deviation, poor R-wave progression, no significant ST or T wave abnormalities. Patient then however converted into A. fib with RVR. I was contacted with reports of regular rhythm and SVT and therefore adenosine was given however no significant change. He therefore started on Cardizem drip and given Cardizem bolus with some improvement in heart rates down from 180s to the 140 range. He additionally was placed on amiodarone. He was having some increased respiratory complaints as well as chest pain. He does have prior history of heart catheterization from 1 year ago showing only mild 30% disease. Cardiac catheterization history: June 2022 revealing relatively normal coronary arteries other than mid LAD 30% stenosis, elevated left-sided filling pressures, moderate aortic stenosis Chest CTA showing no pulmonary embolism and bibasilar lung airspace opacities, correlate for pneumonia as well as hepatic cirrhosis and dilation of the as cending aorta up to 4.5 cm. Prior hemoglobin from March was 6.7 and currently has increased up to 11.4. Creatinine 1.6 which had previously been in the 2.3 range. Troponin 0.09, proBNP 8970. MAHESH from 03/15/2023 showed moderate aortic stenosis with aortic valve area 1.3 cm and moderate aortic insufficiency as well as mild mitral regurgitation with an ejection fraction 50-55%. 07/01 Patient is found to be in sinus rhythm today with history of atrial fibrillation. He has been maintained on Lopressor 12.5 mg twice daily. Lab work for today reveals WBC 3.3, hemoglobin 1.9, platelet count 84. BUN 41 creatinine 1.94. He has been maintained on IV Lasix 80 mg every 12 hours as well as IV Solu-Medrol. Blood pressure 151/79, heart rate 79, pulse ox 93% on 4 L nasal cannula. 07/02 Apparently yesterday, patient developed allergic reaction to one of his medications with angioedema and started on Pepcid, Decadron Benadryl and epinephrine. Patient denies any symptoms today. Plan is to monitor patient until tomorrow. Repeat blood work reveals potassium 4.0, sodium 138, BUN 69 creatinine 2.24. Blood pressure 150/82, heart rate 75, pulse ox 96% on room air.. PHYSICAL EXAM: VITAL SIGNS: Reviewed. GENERAL: Well-developed in no acute distress. HEENT: Head is normocephalic. Pupils are equal, round. Sclerae anicteric. LUNGS: Respirations even and unlabored. Lungs with decreased air exchange noted. HEART: Regular rate and rhythm. S1 and S2 heard. + systolic murmur EXTREMITIES: No clubbing or cyanosis. Peripheral pulses intact. No lower extremity edema NEUROLOGIC: Awake and alert. Oriented x 3. ASSESSMENT: Paroxysmal atrial fibrillation, currently sinus rhythm Acute on chronic respiratory failure, likely multifactorial secondary to heart failure as well as possible pneumonia Bilateral pneumonia by CAT scan with recent fevers and chills Atypical chest pain, likely related to pneumonia, CTA showing no PE Mild chronically elevated troponins likely related to CKD, relatively normal LHC from 06/2022 Acute on chronic heart failure with preserved ejection fraction Moderate aortic stenosis and moderate aortic insufficiency by MAHESH 03/30 Ascending aortic aneurysm Relatively normal coronary arteries other than mid LAD 30% stenosis, per cardiac catheterization in June 2022 Nonischemic cardiomyopathy, EF 30-35%, improved by most recent echo Patent foraman ovale Chronic kidney disease 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 fib may consider outpatient ablation Due to allergic reaction with angioedema, patient is being monitored overnight with plan for discharge tomorrow Further recommendations pending patient's course Nurse practitioner note has been reviewed, I agree with documented findings and plan of care. Patient was seen and examined. Objective - Vital Signs Vital signs: Vital Signs Temp 96.8 F L 07/03/23 04:52 Pulse 75 07/03/23 09:51 Resp 18 07/03/23 04:52 BP 157/74 07/03/23 04:52 Pulse Ox 96 07/03/23 09:51 FiO2 Intake & Output 07/02/23 07/03/23 07/03/23 18:59 06:59 18:59 Intake Total 100 150 Output Total 1100 150 Balance -1000 0 Weight 80.5 kg Intake: Intake, IV Titration 100 Amount Doxycycline 100 mg In 100 Sodium Chloride 0.9% 100 ml @ 100 mls/hr IVPB Q12HR [facility] Rx#:[id number] Oral 150 Output: Urine 1100 150 Other: Voiding Method Urinal Urinal - Labs CBC & Chem 7: 07/02/23 08:09 07/03/23 09:23 Labs: Abnormal Lab Results - Last 24 Hours (Table) 07/02/23 07/02/23 07/02/23 Range/Units 11:34 16:18 20:20 POC Glucose (mg/dL) 122 H 120 H 139 H (70-110) mg/dL 07/03/23 Range/Units 06:12 POC Glucose (mg/dL) 131 H (70-110) mg/dL Microbiology - Last 24 Hours (Table) 06/30/23 10:45 Gram Stain - Final Sputum Sputum Culture - Final She sp,not albicans/galbr 06/29/23 20:05 Blood Culture - Preliminary Blood 06/29/23 19:50 Blood Culture - Preliminary Blood 07/01/23 09:01 Gram Stain - Preliminary Sputum
--- NOTE | 2023-07-03 15:03 | P.PN ---
Subjective Progress Note Date: 07/03/23 Principal diagnosis: Acute multilobar pneumonia and acute hypoxic respiratory failure I am seeing this patient in consultation for shortness of breath and pneumonia. The patient has developed chest pain and pleurisy along the left lung. He is known to me. He has COPD and history of hepatocellular carcinoma of the liver along with hypertension, and hyperlipidemia. The patient arrived to the hospital for shortness of breath on the same time the patient was found to be in SVT. The patient was given adenosine and following that he was placed on a combination of Cardizem drip at 10 mg an hour and amiodarone drip. Cardiology is managing his rhythm problem. The patient's current cardiac rhythm is sinus. He may have been also in atrial fibrillation with RVR at time of admission. Today, the patient is currently comfortable on 60s of oxygen by nasal cannula. A CTA of the chest was done and showed multilobar pneumonia. There is a lingular consolidation and bilateral lower lobe consolidation and the patient also has hepatic cirrhosis with evidence of portal hypertension and fusiform ascending aortic aneurysm measuring 45 mm in size. There is no evidence of any pulmonary embolism and there is no evidence of any filling defect. The patient is currently on Rocephin and Zithromax. He has a congested cough. Will collect sputum on him. He is known to have chronic kidney disease and the creatinine is a stable at 1.6 and the patient had a sodium level of 137 with a potassium level of 3.4. Serum bicarb is at 19. Coagulation profile slightly abnormal with a PTT of 32 and INR of 1.2. D-dimer is at 2.49. The white cell count at 3.3 with a hemoglobin 11.5 and the platelet count is 48 related to chronic disease of the liver and cirrhosis. The patient is also on bronchodilators. No steroids at this point in time. Awake and alert and communicating. No dyspnea at rest. Patient was reevaluated today on 07/01/2023, remains quite symptomatic, continues to have shortness of breath, he is on 4 L nasal cannula with O2 sats of 94%, WBC count is 2.3 hemoglobin is 10 basic metabolic profile is normal renal profile is worsening with creatinine up to 1.88 today. Negative influenza negative Legionella negative RSV and negative COVID-19 screening, BNP level on this admission was 8970 and his troponin level is rising. Remains on antibiotics, remains on diltiazem and amiodarone. And also on bronchodilators for underlying COPD patient was also placed on nystatin for presumptive thrush, patient is having sore throat but I did not actually see thrush. Reevaluate today on 07/02/2023, patient developed a significant episode of angioedema yesterday, treated with multiple medications as per protocol for angioedema feeling better today, his angioedema has completely resolved, however his pulmonary status remains about the same. Patient was admitted with multifocal pneumonia and acute COPD exacerbation as well as atrial fibrillation and RVR. His Rocephin was discontinued, he is now on Zithromax and doxycycline, remains on Decadron which I will continue for the next 24 hours, remains on Benadryl, and he is also on Pepcid. Patient remains on diuretics, this was transitioned to oral Lasix. WBC count today is 3.3 hemoglobin 11.9 basic metabolic profile is normal BUN however is 41 creatinine is up to 1.94 Reevaluate today on 07/03/2023, patient is feeling better today, breathing easier, remains on antibiotics, bronchodilators is also on the cocktail for his acute angioedema patient is on room air, O2 sats is 96%, blood pressure is 150/80 basic metabolic profile today is normal however his BUN is 69 creatinine 2.24 steadily getting worse since admission with creatinine of 1.63 on admission, patient is now on Lasix 40 mg IV push daily as ordered by admitting physician. Remains on doxycycline, CT of the chest clearly showed evidence of extensive pneumonia. Again clinically the patient is feeling better, and he was told by his admitting physician that he may be discharging him home tomorrow Objective - Vital Signs Vital signs: Vital Signs Temp 96.8 F L 07/03/23 04:52 Pulse 65 07/03/23 12:00 Resp 18 07/03/23 08:00 BP 140/70 07/03/23 12:00 Pulse Ox 93 L 07/03/23 12:00 FiO2 Intake & Output 07/02/23 07/03/23 07/03/23 18:59 06:59 18:59 Intake Total 230 782 7306 Output Total 1100 150 Balance -1000 0 1078 Weight 80.5 kg Intake: Intake, IV Titration 100 120 Amount Doxycycline 100 mg In 100 100 Sodium Chloride 0.9% 100 ml @ 100 mls/hr IVPB Q12HR [facility] Rx#:[id number] Sodium Chloride 0.9% 1, 20 000 ml @ 20 mls/hr IV . Q24H [facility] Rx#:[id number] Oral 150 958 Output: Urine 1100 150 Other: Voiding Method Urinal Urinal Urinal - Exam GENERAL EXAM: Alert, pleasant 73-year-old male patient, on room air. HEAD: Normocephalic. EYES: Normal reaction of pupils, equal size. NOSE: Clear with pink turbinates. THROAT: No erythema or exudates. NECK: No masses, no JVD. CHEST: No chest wall deformity. LUNGS: Scattered rhonchi noted bilaterally. CVS: S1 and S2 normal with no audible murmur, regular rhythm. ABDOMEN: No hepatosplenomegaly, normal bowel sounds, no guarding or rigidity. SKIN: No rashes CENTRAL NERVOUS SYSTEM: Alert oriented x 3 no gross focal deficit EXTREMITIES: No clubbing no edema no cyanosis - Labs CBC & Chem 7: 07/02/23 08:09 07/03/23 09:23 Labs: Abnormal Lab Results - Last 24 Hours (Table) 07/02/23 07/02/23 07/03/23 Range/Units 16:18 20:20 06:12 BUN (9-20) mg/dL Creatinine (0.66-1.25) mg/dL Glucose (74-99) mg/dL POC Glucose (mg/dL) 120 H 139 H 131 H (70-110) mg/dL 07/03/23 07/03/23 Range/Units 09:23 11:54 BUN 69 H (9-20) mg/dL Creatinine 2.24 H (0.66-1.25) mg/dL Glucose 118 H (74-99) mg/dL POC Glucose (mg/dL) 121 H (70-110) mg/dL Microbiology - Last 24 Hours (Table) 06/29/23 20:05 Blood Culture - Preliminary Blood 06/29/23 19:50 Blood Culture - Preliminary Blood 07/01/23 09:01 Gram Stain - Final Sputum Sputum Culture - Final She glabrata 06/30/23 10:45 Gram Stain - Final Sputum Sputum Culture - Final She sp,not albicans/galbr Assessment and Plan Assessment: Impression Acute multilobar pneumonia complicated by acute hypoxic respiratory failure and worsening shortness of breath. Acute angioedema possibly related to medications or food ingestion. Exact etiology at this point is not clear however responded well to treatment History of liver cirrhosis and previous history of hepatitis C and hepatocellular carcinoma Pancytopenia likely related to chronic liver disease COPD, based on FEV1 of 59% of predicted consistent with moderately severe COPD Acute on chronic systolic heart failure with an ejection fraction of 35% and impaired LV function Paroxysmal atrial fibrillation/SVT. Remains on amiodarone and Cardizem Moderate aortic stenosis Chronic stage III kidney disease Hypertension Chronic back pain related to herniated disc History of parotid gland cancer postradiation therapy Recommendation: Continue doxycycline Patient was on Rocephin which was discontinued after his angioedema episode. He also finished a few days of Zithromax. Continue bronchodilators, Continue to treat his atrial fibrillation with RVR on admission this is being addressed by cardiology Resume home meds Will continue to follow, possible discharge in the next 24 to 48 hours Time with Patient: Less than 30
[2023-07-03 16:30] LABS: Glucose,Whole Blood 149 mg/dL (70-110)
[2023-07-03 20:19] LABS: Glucose,Whole Blood 131 mg/dL (70-110)
--- NOTE | 2023-07-04 05:32 | P.PN ---
Subjective Progress Note Date: 07/03/23 HISTORY OF PRESENT ILLNESS: 73-year-old male one of my office patient who was diagnosed with hepatocellular carcinoma he is seen oncology more regular basis also has been seeing oncology regularly. Also is known to have history of A-fib with RVR history of hypertension, hyperlipidemia, history of chronic lower back pain and history of iron deficiency anemia which patient was diagnosed recently with more iron deficiency requiring iron infusion. Apparently shortly after his last infusion on June 28, 2023 by his oncologist he developed to have significant chest pain worsened with deep inspiration also was having fever and chills and coughing up twinge of blood started having worsening symptoms with his pulse rate is going I ended up coming to the emergency department at [facility] on on 06/29/2023 where was seen and evaluated with above symptoms chest x-ray showed an impressive sign of bibasilar pneumonia, ended up going for CTA for an elevated D-dimer and shows impressive sign of consolidation in the bases bilaterally worse on the right than the left side with slight pleural effusion as well. The patient has pneumonia beside severe pleurisy. Original EKG in the emergency department showed sinus tachycardia with arrhythmia after being in the emergency room for a period of time developed to have severe tachycardia with pulse rate running 160 to 200 bpm mostly irregular and A-fib, adenosine was giving initially and cardiology end up starting patient on amiodarone drip with pulse rate finally came down to the 70s. Patient was hospitalized with bilateral pneumonia, hypoxia, severe pleurisy, recurrent chest pain and A-fib with RVR. 07/01/2023: Continue to see pulmonary continue to have mild to moderate shortness of breath require 4 L of O2 to keep his pulse ox around 94% while white blood cells down to 2300 creatinine is up to 1.88, with infiltrate in both lung wisdom specially in the right side patient remain on IV antibiotics also is remain on amiodarone and diltiazem along with anticoagulation. 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 Also patient continues to have mild hemoptysis most likely related to his severe left lower lobe pneumonia can continue to be watched little more carefully. 07/02/2023: Patient developed overnight significant angioedema medical etiology could be reaction to Rocephin or reaction to iron both were held at this point patient antibiotic was switched to azithromycin and doxycycline while still on Decadron which was titrated last night higher with the reaction at this point. Would not clear etiology Not clear how is his swallowing will go speech therapy will be seeing patient will keep patient n.p.o. for now. As for the work on multifocal pneumonia along with acute exacerbation of COPD and A-fib with RVR all been treated continue antibiotics, continue steroid, continue updraft treatment on the clock, also will continue anticoagulation with Eliquis patient remain on metoprolol 12.5 mg twice a day originally was on amiodarone and verapamil IV and both were stopped. Pulse rate was better so far may be titration of beta-mt to a higher dose eventually would be more successful. 07/03/2023:Patient had severe episode of angioedema last 24 hours with severe swelling of the tongue buccal area with slight blister around the lips as well. Able to swallow was treated with dexamethasone and Benadryl his symptoms settle finally late in the afternoon on . He is seen speech this morning the patient will initiate food with no restriction at this point continue to watch f or any recurrent episode. This angioedema was tracked back for either iron, morphine sulfate or Rocephin 3 medication were held and stopped. Shortness of breath and pneumonia is much better patient still seen by pulmonary is already on oral antibiotic which should be continue on 4 7-10 more days. No change in management for oncology the patient more stable hopefully can be discharged home tomorrow. REVIEW OF SYSTEMS: CONSTITUTIONAL: Well-developed no acute respiratory distress. EYES: No icterus sclerae, no conjunctivitis. EARS, NOSE, MOUTH, THROAT, and FACE: No sore throat, lymphadenopathy, carotid bruits or deformity. RESPIRATORY: Positive cough shortness of breath and wheezes. CARDIOVASCULAR: Positive PND orthopnea palpitation. GASTROINTESTINAL: No Abd pain, Nausea or vomiting, no Diarrhea or constipation, No GI Bleed, slight distention abdominal discomfort. GENITOURINARY: Negative for Hematuria or UTI, no kidney stones. INTEGUMENT/BREAST: Negative for any muscular injury with mild osteoarthritis.. HEMATOLOGIC/LYMPHATIC: Negative for bleed or purpura. MUSCULOSKELTAL: Negative for Myalgia or arthralgia. NEURLOGICAL: No LOC, Sz or syncope, blurred vision dizziness or abnormality.. BEHAVIORAL/PSYCH: Negative. ENDOCRINE: Negative. PHYSICAL EXAMINATION: General Appearance: Alert, cooperative, no distress, appears stated age. Neck HEENT: Supple, no lymphadenopathy, no thyroid enlargement, no carotid bruits. Lungs: Decreased breath sound bases positive fine crackles in bibasilar area with rhonchi and expiratory wheezes. Chest Wall: Decreased expansion with deep inspiration no tenderness and no deformity was found on exam, no costochondral pain or discomfort. Heart: Irregular rate and rhythm, S1, S2 positive S3 positive tachycardia with systolic murmur. No rub or gallop. Back: Symmetric, no curvature, ROM normal, no CVA tenderness. Abdomen: Soft positive bowel sounds slight discomfort in the right upper quadrant area slightly distention midepigastric discomfort as well. Extremities: Extremities normal, atraumatic, no cyanosis or edema. Pulses: 2+ and symmetric. Skin: Skin color, texture, tugor normal, no rashes or lesions. Neurologic: Alert oriented x3 cranial nerves II through XII intact, no motor deficit, no abnormal balance or gait. ASSESSMENT AND PLAN: _Bilateral multifocal pneumonia: With finding consistent on his chest x-ray, Still seen pulmonary and agree with the current treatment management, most of the viral culture are completely negative. Antibiotic was changed today to azithromycin and doxycycline. _Severe acute episode of angioedema: He is off morphine, Rocephin and iron for now still on dexamethasone symptoms are much better. _Acute kidney injury most likely ATN his creatinine has been slightly bit worse last 24 hours most likely the effect of the angioedema will continue again mild hydration repeat CMP in 24 hours nephrology consult was done early. _A-fib with RVR: Pulse rate is much better remain on Eliquis and metoprolol is off amiodarone and diltiazem for now, still seeing cardiology metoprolol probably will be titrated higher. Pulse rate is running much better so far. _Atypical chest pain following iron infusion and finding consistent with the infection and this is most likely atypical pleurisy and being or having to treat his infection along with being on smaller dose of steroid should be able to clear it up and take care of it. _Hepatocellular carcinoma: Still seeing gastroenterology and oncology he is not on any active chemotherapy. _Iron deficiency anemia: Has been seen oncology and he might have reaction to iron infusion and given her diabetes angioedema could have been having a reaction to iron pills which should be stopped for now. _Nonobstructive coronary artery disease with mild stenosis post heart cath earlier this year patient is on medical management only did not require any treatment. _Elevated troponin with possible non-ST MA as type II MA probably from hypoperfusion continue to watch symptoms carefully would leave it up to cardiology whether he need any testing. _Severe thrombocytopenia: Most likely from sequestration secondary to his chronic kidney and liver disease. _Incidental finding of nodule of the lung: Patient will require probably follow- up CT in 3 to 6 months. _Ascending aortic aneurysm with size of 4.5 cm should be watched by cardiology and cardiothoracic. _Mild reactive airway/COPD: Remain on budesonide, ipratropium albuterol, Spiriva will continue medication. _Recurrent gout specially with his chemotherapy was on colchicine not clear why he is not on allopurinol at this point we will watch for any recurrent plaque. _Hypertension: Has been doing well on hydralazine 100 mg 3 times a day along with amlodipine 10 mg daily will benefit probably from staying on smaller dose of beta-mt. Prognosis: Guarded. Discharge planning: Depend of how patient feels tomorrow and his blood work if he is doing well possible discharge tomorrow or on Saturday. Objective - Vital Signs Vital signs: Vital Signs Temp 96.8 F L 07/03/23 04:52 Pulse 62 07/03/23 04:52 Resp 18 07/03/23 04:52 BP 157/74 07/03/23 04:52 Pulse Ox 94 L 07/03/23 04:52 FiO2 Intake & Output 07/02/23 07/02/23 07/03/23 06:59 18:59 06:59 Intake Total 100 150 Output Total 4500 1100 150 Balance -4500 -1000 0 Weight 80 kg 80.5 kg Intake: Intake, IV Titration 100 Amount Doxycycline 100 mg In 100 Sodium Chloride 0.9% 100 ml @ 100 mls/hr IVPB Q12HR [facility] Rx#:[id number] Oral 150 Output: Urine 4500 1100 150 Other: Voiding Method External Catheter Urinal Urinal # Voids 1 - Labs CBC & Chem 7: 07/02/23 08:09 07/03/23 09:23 Labs: Abnormal Lab Results - Last 24 Hours (Table) 07/02/23 07/02/23 07/02/23 Range/Units 07:25 07:25 08:09 WBC 3.0 L 3.3 L (3.8-10.6) k/uL Hgb 11.6 L 11.9 L (13.0-17.5) gm/dL Hct 36.9 L 38.3 L (39.0-53.0) % RDW 19.6 H 19.7 H (11.5-15.5) % Plt Count 75 L D 84 L (150-450) k/uL Lymphocytes # 0.1 L (1.0-4.8) k/uL Potassium 3.4 L (3.5-5.1) mmol/L BUN 42 H (9-20) mg/dL Creatinine 1.77 H (0.66-1.25) mg/dL Glucose 111 H (74-99) mg/dL POC Glucose (mg/dL) (70-110) mg/dL Total Protein 6.2 L (6.3-8.2) g/dL Albumin 3.2 L (3.5-5.0) g/dL 07/02/23 07/02/23 07/02/23 Range/Units 08:09 11:34 16:18 WBC (3.8-10.6) k/uL Hgb (13.0-17.5) gm/dL Hct (39.0-53.0) % RDW (11.5-15.5) % Plt Count (150-450) k/uL Lymphocytes # (1.0-4.8) k/uL Potassium (3.5-5.1) mmol/L BUN 41 H (9-20) mg/dL Creatinine 1.94 H (0.66-1.25) mg/dL Glucose 113 H (74-99) mg/dL POC Glucose (mg/dL) 122 H 120 H (70-110) mg/dL Total Protein (6.3-8.2) g/dL Albumin 3.3 L (3.5-5.0) g/dL 07/02/23 Range/Units 20:20 WBC (3.8-10.6) k/uL Hgb (13.0-17.5) gm/dL Hct (39.0-53.0) % RDW (11.5-15.5) % Plt Count (150-450) k/uL Lymphocytes # (1.0-4.8) k/uL Potassium (3.5-5.1) mmol/L BUN (9-20) mg/dL Creatinine (0.66-1.25) mg/dL Glucose (74-99) mg/dL POC Glucose (mg/dL) 139 H (70-110) mg/dL Total Protein (6.3-8.2) g/dL Albumin (3.5-5.0) g/dL Microbiology - Last 24 Hours (Table) 06/30/23 10:45 Gram Stain - Preliminary Sputum Sputum Culture - Preliminary 06/29/23 20:05 Blood Culture - Preliminary Blood 06/29/23 19:50 Blood Culture - Preliminary Blood 07/01/23 09:01 Gram Stain - Preliminary Sputum
[2023-07-04 05:58] LABS: Glucose,Whole Blood 137 mg/dL (70-110)
[2023-07-04 08:10] LABS: Anisocytosis Slight; Basophils % (A) 0 %; Eosinophils % (A) 0 %; HCT 37.6 % (39.0-53.0); HGB 11.7 gm/dL (13.0-17.5); Hypochromasia Slight; Lymphocytes # (A) 0.2 k/uL (1.0-4.8); Lymphocytes % (A) 5 %; MCH 25.7 pg (25.0-35.0); MCHC 31.2 g/dL (31.0-37.0); MCV 82.2 fL (80.0-100.0); Mean Platelet Volume 9.9; Microcytosis Slight; Monocytes # (A) 0.2 k/uL (0-1.0); Monocytes % (A) 5 %; Neutrophils # (A) 3.1 k/uL (1.3-7.7); Neutrophils % (A) 90 %; RBC 4.57 m/uL (4.30-5.90); RDW 18.8 % (11.5-15.5); WBC 3.5 k/uL (3.8-10.6)
[2023-07-04 08:26] LABS: ALT 42 U/L (4-49); AST 52 U/L (17-59); African American GFR (CKD) 37 (>60 ml/min/1.73 sqM); Albumin 3.4 g/dL (3.5-5.0); Alkaline Phosphatase 93 U/L (38-126); Anion Gap 10 mmol/L; Blood Urea Nitrogen 75 mg/dL (9-20); Carbon Dioxide 28 mmol/L (22-30); Chloride 99 mmol/L (98-107); Glucose 113 mg/dL (74-99); Non-African American GFR(CKD) 32 (>60 ml/min/1.73 sqM); Potassium 4.1 mmol/L (3.5-5.1); Sodium 137 mmol/L (137-145); Total Bilirubin 0.8 mg/dL (0.2-1.3); Total Protein 6.6 g/dL (6.3-8.2)
[2023-07-04 08:39] LABS: Platelet Count 96 k/uL (150-450)
[2023-07-04 08:41] VITALS: BP 156/77; RESP 18; TEMP 97.5
[2023-07-04] MEDS: FAMOTIDINE 20 MG/2 ML VIAL IV SCH (08:46)
[2023-07-04 09:57] VITALS: PULSE 79
--- NOTE | 2023-07-04 10:20 | XR ---
EXAMINATION TYPE: XR chest 1V portable DATE OF EXAM: 07/04/2023 COMPARISON: 07/01/2023 INDICATION: Pneumonia TECHNIQUE: Single frontal view of the chest is obtained. FINDINGS: The heart size is enlarged. The pulmonary vasculature is normal. Left lateral left lung infiltrates are present. Correlate for pneumonia. Findings are worsening IMPRESSION: 1. Worsening infiltrate lateral left lung. Correlate for pneumonia. Continued follow-up recommended. 2. Cardiomegaly
[2023-07-04 11:30] LABS: Glucose,Whole Blood 137 mg/dL (70-110)
--- NOTE | 2023-07-04 12:33 | P.PN ---
Subjective Progress Note Date: 07/04/23 I am seeing this patient in consultation for shortness of breath and pneumonia. The patient has developed chest pain and pleurisy along the left lung. He is known to me. He has COPD and history of hepatocellular carcinoma of the liver along with hypertension, and hyperlipidemia. The patient arrived to the hospital for shortness of breath on the same time the patient was found to be in SVT. The patient was given adenosine and following that he was placed on a combination of Cardizem drip at 10 mg an hour and amiodarone drip. Cardiology is managing his rhythm problem. The patient's current cardiac rhythm is sinus. He may have been also in atrial fibrillation with RVR at time of admission. T sis, the patient is currently comfortable on 60s of oxygen by nasal cannula. A CTA of the chest was done and showed multilobar pneumonia. There is a lingular consolidation and bilateral lower lobe consolidation and the patient also has hepatic cirrhosis with evidence of portal hypertension and fusiform ascending aortic aneurysm measuring 45 mm in size. There is no evidence of any pulmonary embolism and there is no evidence of any filling defect. The patient is currently on Rocephin and Zithromax. He has a congested cough. Will collect sputum on him. He is known to have chronic kidney disease and the creatinine is a stable at 1.6 and the patient had a sodium level of 137 with a potassium level of 3.4. Serum bicarb is at 19. Coagulation profile slightly abnormal with a PTT of 32 and INR of 1.2. D-dimer is at 2.49. The white cell count at 3.3 with a hemoglobin 11.5 and the platelet count is 48 related to chronic disease of the liver and cirrhosis. The patient is also on bronchodilators. No steroids at this point in time. Awake and alert and communicating. No dyspnea at rest. Patient was reevaluated today on 07/01/2023, remains quite symptomatic, continues to have shortness of breath, he is on 4 L nasal cannula with O2 sats of 94%, WBC count is 2.3 hemoglobin is 10 basic metabolic profile is normal renal profile is worsening with creatinine up to 1.88 today. Negative influenza negative Legionella negative RSV and negative COVID-19 screening, BNP level on this adm ission was 8970 and his troponin level is rising. Remains on antibiotics, remains on diltiazem and amiodarone. And also on bronchodilators for underlying COPD patient was also placed on nystatin for presumptive thrush, patient is having sore throat but I did not actually see thrush. Reevaluate today on 07/02/2023, patient developed a significant episode of angioedema yesterday, treated with multiple medications as per protocol for angioedema feeling better today, his angioedema has completely resolved, however his pulmonary status remains about the same. Patient was admitted with multifocal pneumonia and acute COPD exacerbation as well as atrial fibrillation and RVR. His Rocephin was discontinued, he is now on Zithromax and doxycycline, remains on Decadron which I will continue for the next 24 hours, remains on Benadryl, and he is also on Pepcid. Patient remains on diuretics, this was transitioned to oral Lasix. WBC count today is 3.3 hemoglobin 11.9 basic metabolic profile is normal BUN however is 41 creatinine is up to 1.94 Reevaluate today on 07/03/2023, patient is feeling better today, breathing easier, remains on antibiotics, bronchodilators is also on the cocktail for his acute angioedema patient is on room air, O2 sats is 96%, blood pressure is 150/80 basic metabolic profile today is normal however his BUN is 69 creatinine 2.24 steadily getting worse since admission with creatinine of 1.63 on admission, patient is now on Lasix 40 mg IV push daily as ordered by admitting physician. Remains on doxycycline, CT of the chest clearly showed evidence of extensive pneumonia. Again clinically the patient is feeling better, and he was told by his admitting physician that he may be discharging him home tomorrow The patient is seen today July 04, 2023 in follow-up on the selective care unit. He is up ambulating in his room. Awake and alert in no acute distress. Maintaining good O2 saturations in the 90s on room air. He is afebrile. Hemodynamically stable. Blood culture revealed no growth. Sputum culture was positive for She glabrata. White count 3.5. Hemoglobin 11.7. Platelets 96,000. Sodium 137. Potassium 4.1. Bicarb 28. BUN 75. Creatinine 2.0. Glucose 113. Continued on DuoNeb inhalations, Decadron, oral diuretics, anticoagulated with Eliquis. Chest x-ray reveals left lateral lung infiltrate. Cardiomegaly. He remains on doxycycline. Objective - Vital Signs Vital signs: Vital Signs Temp 97.5 F L 07/04/23 08:22 Pulse 79 07/04/23 09:46 Resp 18 07/04/23 08:22 BP 156/77 07/04/23 08:22 Pulse Ox 96 07/04/23 08:22 FiO2 Intake & Output 07/03/23 07/04/23 07/04/23 18:59 06:59 18:59 Intake Total 1318 10 Balance 1318 10 Weight 81 kg Intake: IV 10 Invasive Line 4 10 Intake, IV Titration 120 Amount Doxycycline 100 mg In 100 Sodium Chloride 0.9% 100 ml @ 100 mls/hr IVPB Q12HR [facility] Rx#:[id number] Sodium Chloride 0.9% 1, 20 000 ml @ 20 mls/hr IV . Q24H [facility] Rx#:[id number] Oral 1198 Other: Voiding Method Urinal Urinal Urinal # Voids 2 - Exam GENERAL EXAM: Alert, active, pleasant 73-year-old male, on room air, comfortable in no apparent distress. HEAD: Normocephalic. EYES: Normal reaction of pupils, equal size. NOSE: Clear with pink turbinates. THROAT: No erythema or exudates. NECK: No masses, no JVD. CHEST: No chest wall deformity. LUNGS: Equal air entry with no crackles in the left lung base. CVS: S1 and S2 normal with no audible murmur, regular rhythm. ABDOMEN: No hepatosplenomegaly, normal bowel sounds, no guarding or rigidity. SPINE: No scoliosis or deformity SKIN: No rashes CENTRAL NERVOUS SYSTEM: No focal deficits, tone is normal in all 4 extremities. EXTREMITIES: There is no peripheral edema. No clubbing, no cyanosis. Peripheral pulses are intact. - Labs CBC & Chem 7: 07/04/23 07:41 07/04/23 07:41 Labs: Abnormal Lab Results - Last 24 Hours (Table) 07/03/23 07/03/23 07/04/23 Range/Units 16:29 20:17 05:56 WBC (3.8-10.6) k/uL Hgb (13.0-17.5) gm/dL Hct (39.0-53.0) % RDW (11.5-15.5) % Plt Count (150-450) k/uL Lymphocytes # (1.0-4.8) k/uL BUN (9-20) mg/dL Creatinine (0.66-1.25) mg/dL Glucose (74-99) mg/dL POC Glucose (mg/dL) 149 H 131 H 137 H (70-110) mg/dL Albumin (3.5-5.0) g/dL 07/04/23 07/04/23 07/04/23 Range/Units 07:41 07:41 11:29 WBC 3.5 L (3.8-10.6) k/uL Hgb 11.7 L (13.0-17.5) gm/dL Hct 37.6 L (39.0-53.0) % RDW 18.8 H (11.5-15.5) % Plt Count 96 L (150-450) k/uL Lymphocytes # 0.2 L (1.0-4.8) k/uL BUN 75 H (9-20) mg/dL Creatinine 2.00 H (0.66-1.25) mg/dL Glucose 113 H (74-99) mg/dL POC Glucose (mg/dL) 137 H (70-110) mg/dL Albumin 3.4 L (3.5-5.0) g/dL Microbiology - Last 24 Hours (Table) 06/29/23 20:05 Blood Culture - Preliminary Blood 06/29/23 19:50 Blood Culture - Preliminary Blood 07/01/23 09:01 Gram Stain - Final Sputum Sputum Culture - Final She glabrata 06/30/23 10:45 Gram Stain - Final Sputum Sputum Culture - Final She sp,not albicans/galbr Assessment and Plan Assessment: Acute multilobar pneumonia complicated by acute hypoxic respiratory failure and worsening shortness of breath. Acute angioedema possibly related to medications or food ingestion. Exact etiology at this point is not clear however responded well to treatment History of liver cirrhosis and previous history of hepatitis C and hepatocellular carcinoma Pancytopenia likely related to chronic liver disease COPD, based on FEV1 of 59% of predicted consistent with moderately severe COPD Acute on chronic systolic heart failure with an ejection fraction of 35% and impaired LV function Paroxysmal atrial fibrillation/SVT. Remains on amiodarone and Cardizem Moderate aortic stenosis Chronic stage III kidney disease Hypertension Chronic back pain related to herniated disc History of parotid gland cancer postradiation therapy Plan: The patient was seen and evaluated Chest x-ray, labs and medications reviewed Chest x-ray reviewed with Dr. Humphries Patient is stable and on room air Cleared for discharge Continue his home pulmonary medications Follow-up in our office in 1 week This patient was seen independently by the pulmonary nurse practitioner addressing pulmonary issues I have personally seen and examined the patient, performed the documentation and the assessment and plan as written. Number of minutes spent on the visit: 23.
--- NOTE | 2023-07-05 13:46 | CDI ---
Documentation Clarification Form Date: From: Simi Huber Phone: [phone] Admit Date: 06/29/2023 09:43:00 PM Patient Name: Chaitanya Morales Visit Number: [id number] Discharge Date: 07/04/2023 11:49:00 AM ATTENTION: The Clinical Documentation Specialists (CDI) and [facility] Coding Staff appreciate your assistance in clarifying documentation. Please respond to the clarification below the line at the bottom and electronically sign. The CDI & [facility] Coding staff will review the response and follow-up if needed. Please note: Queries are made part of the Legal Health Record. If you have any questions, please contact the author of this message via ITS. Dr. Flores Humphries There is documentation of "SIRS" is documented in the Physician Clarification note on 07/01. Additional clarification is requested. History/Risk Factors: "73-year-old male one of my office patient who was diagnosed with hepatocellular carcinoma he is seen oncology more regular basis also has been seeing oncology regularly. Also is known to have history of A-fib with RVR history of hypertension, hyperlipidemia, history of chronic lower back pain and history of iron deficiency anemia" "Chief Complaint: Severe dyspnea and shortness of breath, bilateral pneumonia, A-fib with RVR" - Per H&P on 06/29 Clinical Indicators: "hospitalized with bilateral pneumonia, hypoxia, severe pleurisy, recurrent chest pain and A-fib with RVR." - Per H&P on 06/29 "Acute multilobar pneumonia complicated by hypoxic respiratory failure and worsening shortness of breath" - Per Pulmonology Consult note on 06/29 "chest x-ray showed an impressive sign of bibasilar pneumonia" - Per H&P on 06/29 WBC: 06/28 - 3.3, 06/29 -2.3, - 3.0, 3.3 Lactic acid: none Blood cultures collected 06/28: "No Growth After 48 Hours" - Updated 07/01 Vitals signs: 06/28 16:36 - Temp. 98.4, HR 93, RR 16, BP 159/76, O2 96% 06/28 17:30 - HR 92, RR 23, BP 136/76, O2 91% 06/28 23:00 - HR 102, RR 24, BP 167/90, O2 90% on 3L NC Treatment: "continue Rocephin and azithromycin" - Per H&P on 06/29 "Titrate oxygen flow to maintain saturation above 90%, currently on 6 L" "DuoNeb nebulized treatments [id number]" "Continue Symbicort and prednisone" - Per Pulmonology Consult note on 06/29 Can you please clarify the SIRS? [ X] SIRS 2nd to pneumonia (sepsis) [ ] SIRS 2nd to non-infectious process (please specify) [ ] Other, please specify [ ] Unable to determine MTDD
--- NOTE | 2023-07-09 22:43 | P.PN ---
Subjective Progress Note Date: 07/04/23 HISTORY OF PRESENT ILLNESS: 73-year-old male one of my office patient who was diagnosed with hepatocellular carcinoma he is seen oncology more regular basis also has been seeing oncology regularly. Also is known to have history of A-fib with RVR history of hypertension, hyperlipidemia, history of chronic lower back pain and history of iron deficiency anemia which patient was diagnosed recently with more iron deficiency requiring iron infusion. Apparently shortly after his last infusion on June 28, 2023 by his oncologist he developed to have significant chest pain worsened with deep inspiration also was having fever and chills and coughing up twinge of blood started having worsening symptoms with his pulse rate is going I ended up coming to the emergency department at [facility] on on 06/29/2023 where was seen and evaluated with above symptoms chest x-ray showed an impressive sign of bibasilar pneumonia, ended up going for CTA for an elevated D-dimer and shows impressive sign of consolidation in the bases bilaterally worse on the right than the left side with slight pleural effusion as well. The patient has pneumonia beside severe pleurisy. Original EKG in the emergency department showed sinus tachycardia with arrhythmia after being in the emergency room for a period of time developed to have severe tachycardia with pulse rate running 160 to 200 bpm mostly irregular and A-fib, adenosine was giving initially and cardiology end up starting patient on amiodarone drip with pulse rate finally came down to the 70s. Patient was hospitalized with bilateral pneumonia, hypoxia, severe pleurisy, recurrent chest pain and A-fib with RVR. 07/01/2023: Continue to see pulmonary continue to have mild to moderate shortness of breath require 4 L of O2 to keep his pulse ox around 94% while white blood cells down to 2300 creatinine is up to 1.88, with infiltrate in both lung wisdom specially in the right side patient remain on IV antibiotics also is remain on amiodarone and diltiazem along with anticoagulation. 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 Also patient continues to have mild hemoptysis most likely related to his severe left lower lobe pneumonia can continue to be watched little more carefully. 07/02/2023: Patient developed overnight significant angioedema medical etiology could be reaction to Rocephin or reaction to iron both were held at this point patient antibiotic was switched to azithromycin and doxycycline while still on Decadron which was titrated last night higher with the reaction at this point. Would not clear etiology Not clear how is his swallowing will go speech therapy will be seeing patient will keep patient n.p.o. for now. As for the work on multifocal pneumonia along with acute exacerbation of COPD and A-fib with RVR all been treated continue antibiotics, continue steroid, continue updraft treatment on the clock, also will continue anticoagulation with Eliquis patient remain on metoprolol 12.5 mg twice a day originally was on amiodarone and verapamil IV and both were stopped. Pulse rate was better so far may be titration of beta-mt to a higher dose eventually would be more successful. 07/03/2023:Patient had severe episode of angioedema last 24 hours with severe swelling of the tongue buccal area with slight blister around the lips as well. Able to swallow was treated with dexamethasone and Benadryl his symptoms settle finally late in the afternoon on . He is seen speech this morning the patient will initiate food with no restriction at this point continue to watch f or any recurrent episode. This angioedema was tracked back for either iron, morphine sulfate or Rocephin 3 medication were held and stopped. Shortness of breath and pneumonia is much better patient still seen by pulmonary is already on oral antibiotic which should be continue on 4 7-10 more days. No change in management for oncology the patient more stable hopefully can be discharged home tomorrow. 07/04/2023: Patient angioedema is much better, shortness of breath is improved significantly, he is ambulating and doing well with physical therapy. Patient hemoglobin is slightly better, A-fib is under control. Patient asking to be discharged home today with home care he has done few doses of IV antibiotics is back on oral antibiotic at this point still on oral prednisone. Pulmonary are h appy with patient progress at this point. REVIEW OF SYSTEMS: CONSTITUTIONAL: Well-developed no acute respiratory distress. EYES: No icterus sclerae, no conjunctivitis. EARS, NOSE, MOUTH, THROAT, and FACE: No sore throat, lymphadenopathy, carotid bruits or deformity. RESPIRATORY: Positive cough shortness of breath and wheezes. CARDIOVASCULAR: Positive PND orthopnea palpitation. GASTROINTESTINAL: No Abd pain, Nausea or vomiting, no Diarrhea or constipation, No GI Bleed, slight distention abdominal discomfort. GENITOURINARY: Negative for Hematuria or UTI, no kidney stones. INTEGUMENT/BREAST: Negative for any muscular injury with mild osteoarthritis.. HEMATOLOGIC/LYMPHATIC: Negative for bleed or purpura. MUSCULOSKELTAL: Negative for Myalgia or arthralgia. NEURLOGICAL: No LOC, Sz or syncope, blurred vision dizziness or abnormality.. BEHAVIORAL/PSYCH: Negative. ENDOCRINE: Negative. PHYSICAL EXAMINATION: General Appearance: Alert, cooperative, no distress, appears stated age. Neck HEENT: Supple, no lymphadenopathy, no thyroid enlargement, no carotid bruits. Lungs: Decreased breath sound bases positive fine crackles in bibasilar area with rhonchi and expiratory wheezes. Chest Wall: Decreased expansion with deep inspiration no tenderness and no deformity was found on exam, no costochondral pain or discomfort. Heart: Irregular rate and rhythm, S1, S2 positive S3 positive tachycardia with systolic murmur. No rub or gallop. Back: Symmetric, no curvature, ROM normal, no CVA tenderness. Abdomen: Soft positive bowel sounds slight discomfort in the right upper quadrant area slightly distention midepigastric discomfort as well. Extremities: Extremities normal, atraumatic, no cyanosis or edema. Pulses: 2+ and symmetric. Skin: Skin color, texture, tugor normal, no rashes or lesions. Neurologic: Alert oriented x3 cranial nerves II through XII intact, no motor deficit, no abnormal balance or gait. ASSESSMENT AND PLAN: _Bilateral multifocal pneumonia: With finding consistent on his chest x-ray, Still seen pulmonary and agree with the current treatment management, most of the viral culture are completely negative. Antibiotic was changed today to azithromycin and doxycycline. _Severe acute episode of angioedema: He is off morphine, Rocephin and iron for now still on dexamethasone symptoms are much better. _Acute kidney injury most likely ATN his creatinine has been slightly bit worse last 24 hours most likely the effect of the angioedema will continue again mild hydration repeat CMP in 24 hours nephrology consult was done early. _A-fib with RVR: Pulse rate is much better remain on Eliquis and metoprolol is off amiodarone and diltiazem for now, still seeing cardiology metoprolol probably will be titrated higher. Pulse rate is running much better so far. _Atypical chest pain following iron infusion and finding consistent with the infection and this is most likely atypical pleurisy and being or having to treat his infection along with being on smaller dose of steroid should be able to clear it up and take care of it. _Hepatocellular carcinoma: Still seeing gastroenterology and oncology he is not on any active chemotherapy. _Iron deficiency anemia: Has been seen oncology and he might have reaction to iron infusion and given her diabetes angioedema could have been having a reaction to iron pills which should be stopped for now. _Nonobstructive coronary artery disease with mild stenosis post heart cath earlier this year patient is on medical management only did not require any treatment. _Elevated troponin with possible non-ST CA as type II CA probably from hypoperfusion continue to watch symptoms carefully would leave it up to cardiology whether he need any testing. _Severe thrombocytopenia: Most likely from sequestration secondary to his chronic kidney and liver disease. _Incidental finding of nodule of the lung: Patient will require probably follow- up CT in 3 to 6 months. _Ascending aortic aneurysm with size of 4.5 cm should be watched by cardiology and cardiothoracic. _Mild reactive airway/COPD: Remain on budesonide, ipratropium albuterol, Spiriva will continue medication. _Recurrent gout specially with his chemotherapy was on colchicine not clear why he is not on allopurinol at this point we will watch for any recurrent plaque. _Hypertension: Has been doing well on hydralazine 100 mg 3 times a day along with amlodipine 10 mg daily will benefit probably from staying on smaller dose of beta-mt. Prognosis: Guarded. Discharge planning: Patient hopefully is doing well will be discharged home today to [id number]. Objective - Vital Signs Vital signs: Vital Signs Temp 96.7 F L 07/04/23 05:18 Pulse 56 L 07/04/23 05:18 Resp 15 07/04/23 05:18 BP 149/81 07/04/23 05:18 Pulse Ox 94 L 07/04/23 05:18 FiO2 Intake & Output 07/03/23 07/03/23 07/04/23 06:59 18:59 06:59 Intake Total 150 1318 Output Total 150 Balance 0 1318 Weight 80.5 kg 81 kg Intake: Intake, IV Titration 120 Amount Doxycycline 100 mg In 100 Sodium Chloride 0.9% 100 ml @ 100 mls/hr IVPB Q12HR [facility] Rx#:[id number] Sodium Chloride 0.9% 1, 20 000 ml @ 20 mls/hr IV . Q24H [facility] Rx#:[id number] Oral 150 1198 Output: Urine 150 Other: Voiding Method Urinal Urinal Urinal # Voids 2 - Labs CBC & Chem 7: 07/04/23 07:41 07/04/23 07:41 Labs: Abnormal Lab Results - Last 24 Hours (Table) 07/03/23 07/03/23 07/03/23 Range/Units 06:12 09:23 11:54 BUN 69 H (9-20) mg/dL Creatinine 2.24 H (0.66-1.25) mg/dL Glucose 118 H (74-99) mg/dL POC Glucose (mg/dL) 131 H 121 H (70-110) mg/dL 07/03/23 07/03/23 Range/Units 16:29 20:17 BUN (9-20) mg/dL Creatinine (0.66-1.25) mg/dL Glucose (74-99) mg/dL POC Glucose (mg/dL) 149 H 131 H (70-110) mg/dL Microbiology - Last 24 Hours (Table) 06/29/23 20:05 Blood Culture - Preliminary Blood 06/29/23 19:50 Blood Culture - Preliminary Blood 07/01/23 09:01 Gram Stain - Final Sputum Sputum Culture - Final She glabrata 06/30/23 10:45 Gram Stain - Final Sputum Sputum Culture - Final She sp,not albicans/galbr
--- NOTE | 2023-07-09 22:46 | P.DS ---
Providers Date of admission: 06/29/23 21:43 Attending physician: Drew Medrano Consults: 06/30/23 05:10 Consult Physician Routine Consulting Provider: Elliott Post Consult Reason/Comments: re: SVT Do you want consulting provider notified?: Already Contacted 06/30/23 09:18 Consult Physician Routine Consulting Provider: Sherman Tabares Consult Reason/Comments: Bilateral Pneumonia/ nodular and COPD Do you want consulting provider notified?: Yes 07/01/23 07:59 Consult Physician Routine Consulting Provider: Gopi Guy Consult Reason/Comments: Liver CA with Anemia ?? Mets. Do you want consulting provider notified?: Yes Primary care physician: [facility] Course: HISTORY OF PRESENT ILLNESS: 73-year-old male one of my office patient who was diagnosed with hepatocellular carcinoma he is seen oncology more regular basis also has been seeing oncology regularly. Also is known to have history of A-fib with RVR history of hypertension, hyperlipidemia, history of chronic lower back pain and history of iron deficiency anemia which patient was diagnosed recently with more iron deficiency requiring iron infusion. Apparently shortly after his last infusion on June 28, 2023 by his oncologist he developed to have significant chest pain worsened with deep inspiration also was having fever and chills and coughing up twinge of blood started having worsening symptoms with his pulse rate is going I ended up coming to the emergency department at [facility] on on 06/29/2023 where was seen and evaluated with above symptoms chest x-ray showed an impressive sign of bibasilar pneumonia, ended up going for CTA for an elevated D-dimer and shows impressive sign of consolidation in the bases bilaterally worse on the right than the left side with slight pleural effusion as well. The patient has pneumonia beside severe pleurisy. Original EKG in the emergency department showed sinus tachycardia with arrhythmia after being in the emergency room for a period of time developed to have severe tachycardia with pulse rate running 160 to 200 bpm mostly irregular and A-fib, adenosine was giving initially and cardiology end up starting patient on amiodarone drip with pulse rate finally came down to the 70s. Patient was hospitalized with bilateral pneumonia, hypoxia, severe pleurisy, recurrent chest pain and A-fib with RVR. 07/01/2023: Continue to see pulmonary continue to have mild to moderate shortness of breath require 4 L of O2 to keep his pulse ox around 94% while white blood cells down to 2300 creatinine is up to 1.88, with infiltrate in both lung wisdom specially in the right side patient remain on IV antibiotics also is remain on amiodarone and diltiazem along with anticoagulation. 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 Also patient continues to have mild hemoptysis most likely related to his severe left lower lobe pneumonia can continue to be watched little more carefully. 07/02/2023: Patient developed overnight significant angioedema medical etiology could be reaction to Rocephin or reaction to iron both were held at this point patient antibiotic was switched to azithromycin and doxycycline while still on Decadron which was titrated last night higher with the reaction at this point. Would not clear etiology Not clear how is his swallowing will go speech therapy will be seeing patient will keep patient n.p.o. for now. As for the work on multifocal pneumonia along with acute exacerbation of COPD and A-fib with RVR all been treated continue antibiotics, continue steroid, continue updraft treatment on the clock, also will continue anticoagulation with Eliquis patient remain on metoprolol 12.5 mg twice a day originally was on amiodarone and verapamil IV and both were stopped. Pulse rate was better so far may be titration of beta-mt to a higher dose eventually would be more successful. 07/03/2023:Patient had severe episode of angioedema last 24 hours with severe swelling of the tongue buccal area with slight blister around the lips as well. Able to swallow was treated with dexamethasone and Benadryl his symptoms settle finally late in the afternoon on . He is seen speech this morning the patient will initiate food with no restriction at this point continue to watch for any recurrent episode. This angioedema was tracked back for either iron, morphine sulfate or Rocephin 3 medication were held and stopped. Shortness of breath and pneumonia is much better patient still seen by pulmonary is already on oral antibiotic which should be continue on 4 7-10 more days. No change in management for oncology the patient more stable hopefully can be discharged home tomorrow. 07/04/2023: Patient angioedema is much better, shortness of breath is improved significantly, he is ambulating and doing well with physical therapy. Patient hemoglobin is slightly better, A-fib is under control. Patient asking to be discharged home today with home care he has done few doses of IV antibiotics is back on oral antibiotic at this point still on oral prednisone. Pulmonary are happy with patient progress at this point. REVIEW OF SYSTEMS: CONSTITUTIONAL: Well-developed no acute respiratory distress. EYES: No icterus sclerae, no conjunctivitis. EARS, NOSE, MOUTH, THROAT, and FACE: No sore throat, lymphadenopathy, carotid bruits or deformity. RESPIRATORY: Positive cough shortness of breath and wheezes. CARDIOVASCULAR: Positive PND orthopnea palpitation. GASTROINTESTINAL: No Abd pain, Nausea or vomiting, no Diarrhea or constipation, No GI Bleed, slight distention abdominal discomfort. GENITOURINARY: Negative for Hematuria or UTI, no kidney stones. INTEGUMENT/BREAST: Negative for any muscular injury with mild osteoarthritis.. HEMATOLOGIC/LYMPHATIC: Negative for bleed or purpura. MUSCULOSKELTAL: Negative for Myalgia or arthralgia. NEURLOGICAL: No LOC, Sz or syncope, blurred vision dizziness or abnormality.. BEHAVIORAL/PSYCH: Negative. ENDOCRINE: Negative. PHYSICAL EXAMINATION: General Appearance: Alert, cooperative, no distress, appears stated age. Neck HEENT: Supple, no lymphadenopathy, no thyroid enlargement, no carotid bruits. Lungs: Decreased breath sound bases positive fine crackles in bibasilar area with rhonchi and expiratory wheezes. Chest Wall: Decreased expansion with deep inspiration no tenderness and no deformity was found on exam, no costochondral pain or discomfort. Heart: Irregular rate and rhythm, S1, S2 positive S3 positive tachycardia with systolic murmur. No rub or gallop. Back: Symmetric, no curvature, ROM normal, no CVA tenderness. Abdomen: Soft positive bowel sounds slight discomfort in the right upper quadrant area slightly distention midepigastric discomfort as well. Extremities: Extremities normal, atraumatic, no cyanosis or edema. Pulses: 2+ and symmetric. Skin: Skin color, texture, tugor normal, no rashes or lesions. Neurologic: Alert oriented x3 cranial nerves II through XII intact, no motor deficit, no abnormal balance or gait. ASSESSMENT AND PLAN: _Bilateral multifocal pneumonia: With finding consistent on his chest x-ray, Still seen pulmonary and agree with the current treatment management, most of the viral culture are completely negative. Antibiotic was changed today to azithromycin and doxycycline. _Severe acute episode of angioedema: He is off morphine, Rocephin and iron for now still on dexamethasone symptoms are much better. _Acute kidney injury most likely ATN his creatinine has been slightly bit worse last 24 hours most likely the effect of the angioedema will continue again mild hydration repeat CMP in 24 hours nephrology consult was done early. _A-fib with RVR: Pulse rate is much better remain on Eliquis and metoprolol is off amiodarone and diltiazem for now, still seeing cardiology metoprolol probably will be titrated higher. Pulse rate is running much better so far. _Atypical chest pain following iron infusion and finding consistent with the infection and this is most likely atypical pleurisy and being or having to treat his infection along with being on smaller dose of steroid should be able to clear it up and take care of it. _Hepatocellular carcinoma: Still seeing gastroenterology and oncology he is not on any active chemotherapy. _Iron deficiency anemia: Has been seen oncology and he might have reaction to iron infusion and given her diabetes angioedema could have been having a reaction to iron pills which should be stopped for now. _Nonobstructive coronary artery disease with mild stenosis post heart cath earlier this year patient is on medical management only did not require any treatment. _Elevated troponin with possible non-ST PR as type II PR probably from hypoperfusion continue to watch symptoms carefully would leave it up to cardio logy whether he need any testing. _Severe thrombocytopenia: Most likely from sequestration secondary to his chronic kidney and liver disease. _Incidental finding of nodule of the lung: Patient will require probably follow- up CT in 3 to 6 months. _Ascending aortic aneurysm with size of 4.5 cm should be watched by cardiology and cardiothoracic. _Mild reactive airway/COPD: Remain on budesonide, ipratropium albuterol, Spiriva will continue medication. _Recurrent gout specially with his chemotherapy was on colchicine not clear why he is not on allopurinol at this point we will watch for any recurrent plaque. _Hypertension: Has been doing well on hydralazine 100 mg 3 times a day along with amlodipine 10 mg daily will benefit probably from staying on smaller dose of beta-mt. Prognosis: Guarded. Discharge planning: Patient hopefully is doing well will be discharged home today to [id number]. Hospital course: Patient was admitted with severe dyspnea and shortness of breath with acute respiratory failure secondary to bilateral multifocal pneumonia along with exacerbation of COPD atypical chest pain and A-fib with RVR, to the hospital course patient found to have very large infiltrate in the left on the right lower lobe and middle in the right side patient was seen pulmonary agree with the current plan originally was on Rocephin and azithromycin surprisingly patient developed to have severe angioedema either combination from iron, morphine sulfate and or Rocephin was taking off with 3 agents which antibiotic to doxycycline to complete the final course and also switch to oral prednisone. Patient has done good with anticoagulation and with nebulizer management. He is ambulating doing well and is on require minimum oxygen wants to go home on . Time spent on discharging patient was over 35 minutes. Patient Condition at Discharge: Serious Plan - Discharge Summary Discharge Rx Participant: No New Discharge Prescriptions: New Ipratropium-Albuterol Nebulize [Duoneb 0.5 mg-3 mg/3 ml Soln] 3 ml INHALATION RT-QID #120 each Furosemide [Lasix] 40 mg PO DAILY #30 tab Metoprolol Tartrate [Lopressor] 12.5 mg PO BID #60 tab Benzocaine/Menthol Lozeng [Cepacol lozenge] 1 each MUCOUS MEM Q4HR PRN lozenge PRN Reason: Sore Throat Doxycycline Hyclate 100 mg PO BID #20 capsule Continue amLODIPine [Norvasc] 10 mg PO DAILY Colchicine 0.6 mg PO DAILY traZODone HCL [Desyrel] 50 mg PO HS Cholecalciferol [Vitamin D3 (25 Mcg = 1000 Iu)] 25 mcg PO DAILY Apixaban [Eliquis] 2.5 mg PO BID HYDROcodone/APAP 10-325MG [Denver 10-325] 1 tab PO TID Fluticasone Propion/Salmeterol [Wixela 500-50 Inhub] 1 puff INHALATION RT-BID Pantoprazole Sodium [Protonix] 20 mg PO BID Albuterol Inhaler [Ventolin Hfa Inhaler] 2 puff INHALATION RT-Q6H PRN PRN Reason: Shortness Of Breath hydrALAZINE HCL [Apresoline] 100 mg PO TID predniSONE 7.5 mg PO DAILY Tiotropium 2.5 Mcg/Puff [Spiriva Respimat 2.5 Mcg] 2 puff INHALATION RT-DAILY Multivit-Min/FA/Lycopen/Lutein [Centrum Silver Tablet] 1 tab PO DAILY Folic Acid 0.4 mg PO DAILY Discontinued Ferrous Sulfate [Iron (65 MG Elemental)] 325 mg PO DAILY Discharge Medication List amLODIPine [Norvasc] 10 mg PO DAILY 08/06/14 [History] Colchicine 0.6 mg PO DAILY 08/02/16 [History] hydrALAZINE HCL [Apresoline] 100 mg PO TID 06/08/22 [History] Tiotropium 2.5 Mcg/Puff [Spiriva Respimat 2.5 Mcg] 2 puff INHALATION RT-DAILY 01/14/23 [History] predniSONE 7.5 mg PO DAILY 01/14/23 [History] traZODone HCL [Desyrel] 50 mg PO HS 01/14/23 [History] Cholecalciferol [Vitamin D3 (25 Mcg = 1000 Iu)] 25 mcg PO DAILY 02/11/23 [History] Multivit-Min/FA/Lycopen/Lutein [Centrum Silver Tablet] 1 tab PO DAILY 02/11/23 [History] Apixaban [Eliquis] 2.5 mg PO BID 03/07/23 [History] Albuterol Inhaler [Ventolin Hfa Inhaler] 2 puff INHALATION RT-Q6H PRN 06/30/23 [History] Fluticasone Propion/Salmeterol [Wixela 500-50 Inhub] 1 puff INHALATION RT-BID 06/30/23 [History] Folic Acid 0.4 mg PO DAILY 06/30/23 [History] HYDROcodone/APAP 10-325MG [Denver 10-325] 1 tab PO TID 06/30/23 [History] Pantoprazole Sodium [Protonix] 20 mg PO BID 06/30/23 [History] Benzocaine/Menthol Lozeng [Cepacol lozenge] 1 each MUCOUS MEM Q4HR PRN lozenge 07/04/23 [Rx] Doxycycline Hyclate 100 mg PO BID #20 capsule 07/04/23 [Rx] Furosemide [Lasix] 40 mg PO DAILY #30 tab 07/04/23 [Rx] Ipratropium-Albuterol Nebulize [Duoneb 0.5 mg-3 mg/3 ml Soln] 3 ml INHALATION RT-QID #120 each 07/04/23 [Rx] Metoprolol Tartrate [Lopressor] 12.5 mg PO BID #60 tab 07/04/23 [Rx] Follow up Appointment(s)/Referral(s): Gopi Guy [STAFF PHYSICIAN] - 2 Weeks (Call ofc to reschedule iron infusion) Elliott Post DO [STAFF PHYSICIAN] - 07/11/23 10:45 am Drew Medrano MD [Primary Care Provider] - 07/09/23 10:00 am Sherman Tabares MD [STAFF PHYSICIAN] - 07/30/23 9:30 am Discharge Disposition: HOME SELF-CARE
== END 2023-07-04 11:49 | disposition home or self-care (01) | DRG 871 ==
LOC: EC 16:31 → 3SCARD 21:43
PROVIDERS: ADMIT Internal Medicine Geriatric Medicine; ATTEND Internal Medicine Geriatric Medicine
DX: A41.9 Sepsis, unspecified organism (principal); I21.A1 Myocardial infarction type 2; N17.0 Acute kidney failure with tubular necrosis; J18.9 Pneumonia, unspecified organism; J96.21 Acute and chronic respiratory failure with hypoxia; I50.43 Acute on chronic combined systolic (congestive) and diastolic (congestive) heart failure; R65.21 Severe sepsis with septic shock; D61.818 Other pancytopenia; R04.2 Hemoptysis; C22.0 Liver cell carcinoma; I13.0 Hypertensive heart and chronic kidney disease with heart failure and stage 1 through stage 4 chronic kidney disease, or unspecified chronic kidney disease; I42.8 Other cardiomyopathies; I47.10 Supraventricular tachycardia, unspecified; J44.0 Chronic obstructive pulmonary disease with (acute) lower respiratory infection; K76.6 Portal hypertension; J44.1 Chronic obstructive pulmonary disease with (acute) exacerbation; B37.0 Candidal stomatitis; D69.6 Thrombocytopenia, unspecified; K74.60 Unspecified cirrhosis of liver; D69.59 Other secondary thrombocytopenia; I71.21 Aneurysm of the ascending aorta, without rupture; I35.0 Nonrheumatic aortic (valve) stenosis; D50.9 Iron deficiency anemia, unspecified; I71.40 Abdominal aortic aneurysm, without rupture, unspecified; N18.30 Chronic kidney disease, stage 3 unspecified; I35.2 Nonrheumatic aortic (valve) stenosis with insufficiency; I48.0 Paroxysmal atrial fibrillation; M54.9 Dorsalgia, unspecified; I25.10 Atherosclerotic heart disease of native coronary artery without angina pectoris; T78.3XXA Angioneurotic edema, initial encounter; M10.9 Gout, unspecified; K21.9 Gastro-esophageal reflux disease without esophagitis; E53.8 Deficiency of other specified B group vitamins; G89.29 Other chronic pain; E11.22 Type 2 diabetes mellitus with diabetic chronic kidney disease; E78.5 Hyperlipidemia, unspecified; T80.89XA Other complications following infusion, transfusion and therapeutic injection, initial encounter; I49.3 Ventricular premature depolarization; R79.1 Abnormal coagulation profile; Z79.01 Long term (current) use of anticoagulants; Z85.828 Personal history of other malignant neoplasm of skin; Z86.16 Personal history of COVID-19; Z87.891 Personal history of nicotine dependence; X58.XXXA Exposure to other specified factors, initial encounter; Z79.51 Long term (current) use of inhaled steroids; Z79.899 Other long term (current) drug therapy; Z85.05 Personal history of malignant neoplasm of liver; Z85.818 Personal history of malignant neoplasm of other sites of lip, oral cavity, and pharynx
CPT/HCPCS: 36415; 71045; 71046; 71275; 80048; 80053; 83735; 83880; 84484; 85025; 85027; 85379; 85610; 85730; 87040; 87070; 87205; 87449; 87636; 93005; 94640; 94760; 96365; 96366; 96367; 96368; 96375; 99291

== ENCOUNTER 2023-07-07 20:53 | Emergency (ER) | payer MEDICARE, OTHER ==
[2023-07-07 21:08] VITALS: BP 171/66; PULSE 60; RESP 22; TEMP 98
--- NOTE | 2023-07-07 21:09 | ED ---
General Adult HPI - General Chief complaint: Shortness of Breath Stated complaint: Difficulty Breathing Time Seen by Provider: 07/07/23 20:57 Source: patient, EMS Mode of arrival: EMS Limitations: no limitations - History of Present Illness Initial comments: Patient presents to the ED by ambulance for evaluation. Patient was just recently discharged from the hospital after being diagnosed with bilateral pneumonia, and he states that he feels that he was discharged home too early. Patient states that he continues to have dyspnea, and he states that his dyspnea seems to be worsening. Patient states that he has been taking the levofloxacin and doxycycline that he was prescribed, and he states that he took both of them today. Patient states that his cough has resolved at this time. Patient denies having any pain, fever or chills, headache, focal neuro deficit, chest pain or pressure, palpitations, dizziness, abdominal pain, nausea/vomiting/diarrhea, bloody or melanotic stool, dysuria or urinary symptoms, decreased urine output, leg or calf swelling or pain, or any other symptoms or complaints. Patient is on Eliquis anticoagulation therapy. - Related Data Home Medications Medication Instructions Recorded Confirmed amLODIPine [Norvasc] 10 mg PO DAILY 08/06/14 06/30/23 Colchicine 0.6 mg PO DAILY 08/02/16 06/30/23 hydrALAZINE HCL [Apresoline] 100 mg PO TID 06/08/22 06/30/23 Tiotropium 2.5 Mcg/Puff [Spiriva 2 puff INHALATION RT-DAILY 01/14/23 06/30/23 Respimat 2.5 Mcg] predniSONE 7.5 mg PO DAILY 01/14/23 06/30/23 traZODone HCL [Desyrel] 50 mg PO HS 01/14/23 06/30/23 Cholecalciferol [Vitamin D3 (25 25 mcg PO DAILY 02/11/23 06/30/23 Mcg = 1000 Iu)] Multivit-Min/FA/Lycopen/Lutein 1 tab PO DAILY 02/11/23 06/30/23 [Centrum Silver Tablet] Apixaban [Eliquis] 2.5 mg PO BID 03/07/23 06/30/23 Albuterol Inhaler [Ventolin Hfa 2 puff INHALATION RT-Q6H PRN 06/30/23 06/30/23 Inhaler] Fluticasone Propion/Salmeterol 1 puff INHALATION RT-BID 06/30/23 06/30/23 [Wixela 500-50 Inhub] Folic Acid 0.4 mg PO DAILY 06/30/23 06/30/23 HYDROcodone/APAP 10-325MG [Darden 1 tab PO TID 06/30/23 06/30/23 10-325] Pantoprazole Sodium [Protonix] 20 mg PO BID 06/30/23 06/30/23 Previous Rx's Medication Instructions Recorded Benzocaine/Menthol Lozeng [Cepacol 1 each MUCOUS MEM Q4HR PRN lozenge 07/04/23 lozenge] Doxycycline Hyclate 100 mg PO BID #20 capsule 07/04/23 Furosemide [Lasix] 40 mg PO DAILY #30 tab 07/04/23 Ipratropium-Albuterol Nebulize 3 ml INHALATION RT-QID #120 each 07/04/23 [Duoneb 0.5 mg-3 mg/3 ml Soln] Metoprolol Tartrate [Lopressor] 12.5 mg PO BID #60 tab 07/04/23 Allergies Allergy/AdvReac Type Severity Reaction Status Date / Time allopurinol Allergy Unknown Verified 07/07/23 21:05 omalizumab [From Xolair] Allergy Rash/Hives Verified 07/07/23 21:05 atenolol AdvReac Bradycardia Verified 07/07/23 21:05 /Fatigue doxazosin AdvReac Dizziness Verified 07/07/23 21:05 & Delirium lisinopril AdvReac Cough Verified 07/07/23 21:05 metoprolol [From Lopressor] AdvReac Chest Pain Verified 07/07/23 21:05 Review of Systems ROS Statement: Those systems with pertinent positive or pertinent negative responses have been documented in the HPI. ROS Other: All systems not noted in ROS Statement are negative. 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 Hospitalized last week for CHF & Pneumonia. Irr. heart rate @ times. History of Any Multi-Drug Resistant Organisms: None Reported Past Surgical History: Back Surgery, Heart Catheterization, Hernia Repair, Orthopedic Surgery Additional Past Surgical History / Comment(s): liver ablation done at [facility] for tx of hepatocellular carcinoma,hemorrhoids ,back surgery, cataract, skin cancer, inguinal hernia, abdominal hernia, left shoulder, right wrist, growth removed vocal cord, PAROTID GLAND REMOVED DUE TO CANCER. Past Anesthesia/Blood Transfusion Reactions: No Reported Reaction Additional Past Anesthesia/Blood Transfusion Reaction / Comment(s): no hx blood transfusion Past Psychological History: No Psychological Hx Reported Smoking Status: Former smoker Past Alcohol Use History: None Reported Past Drug Use History: None Reported - Past Family History Father Family Medical History: Cancer General Exam Limitations: no limitations General appearance: alert, in no apparent distress Eye exam: Present: normal appearance ENT exam: Present: mucous membranes moist Neck exam: Present: other (Trachea is in midline) Respiratory exam: Present: normal lung sounds bilaterally. Absent: respiratory distress, wheezes, rales, rhonchi, stridor Cardiovascular Exam: Present: regular rate, normal rhythm, normal heart sounds, other (Normal radial pulses bilaterally) GI/Abdominal exam: Present: soft. Absent: distended, tenderness, guarding Extremities exam: Present: other (Negative Homans' sign bilaterally). Absent: tenderness, pedal edema, calf tenderness Neurological exam: Present: alert, oriented X3 Psychiatric exam: Present: normal affect Skin exam: Present: warm, dry, normal color Course Vital Signs 07/07/23 20:56 Temperature 98.0 F Pulse Rate 60 Respiratory 22 Rate Blood Pressure 171/66 O2 Sat by Pulse 99 Oximetry - Reevaluation(s) Reevaluation #1: 07/07/23 22:32 Case, H&P and test results were discussed with Dr. Medrano. He has reviewed the patient's chest x-ray and labs himself. He states that the patient's troponin is trending downwards. He states that the patient's infiltrates on chest x-ray have much improved. He does not feel that the patient requires admission at this time, and he recommends discharging the patient home and recommending that he continue taking his antibiotics as prescribed. He also recommends confirming that the patient is on prednisone, and if not, he recommends starting the patient on a short course of tapering prednisone. He has no further recommendations at this time. 07/07/23 22:38 Patient denies development of any new symptoms while in the ED. Patient remains alert and breathing comfortably. Patient is aware of his test results and my discussion with Dr. Medrano as above. Patient confirms that he is currently taking prednisone at home, and as such, I will not provide him with a new pr escription for a tapering course of prednisone at this time. Patient was advised to continue taking the antibiotics that he was prescribed until completed. Patient was counseled about pneumonia and dyspnea. He was clearly explained return and follow-up instructions. He was instructed to follow-up with Dr. Medrano in his clinic in 2 days (on Saturday) as scheduled. He feels comfortable with this plan. EKG Findings - EKG Comments: EKG Findings:: ED physician interpretation (interpreted by me): Sinus bradycardia, ventricular rate of 59 bpm, no ectopy, normal [place] and QRS intervals, normal QT interval, LVH, leftward axis, no significant change when compared to 06/30/2023 EKG, no ST elevation Medical Decision Making - Medical Decision Making Was pt. sent in by a medical professional or institution (, PA, RADIUS CORNER MACHINE OPERATOR, urgent care, hospital, or half-way...) When possible be specific @ -No Did you speak to anyone other than the patient for history (EMS, parent, family, police, friend...)? What history was obtained from this source @ -No Did you review nursing and triage notes (agree or disagree)? Why? @ -I reviewed and agree with nursing and triage notes Were old charts reviewed (outside hosp., previous admission, EMS record, old EKG, old radiological studies, urgent care reports/EKG's, half-way records)? Report findings @ -No old charts were reviewed Differential Diagnosis (chest pain, altered mental status, abdominal pain women, abdominal pain men, vaginal bleeding, weakness, fever, dyspnea, syncope, headache, dizziness, GI bleed, back pain, seizure, CVA, palpatations, mental health, musculoskeletal)? @ -Differential Dyspnea: Coronary syndrome, arrhythmia, tamponade, asthma, COPD, pneumonia, pneumothorax, pleural effusion, CHF, anemia, neuromuscular, this is not meant to be an all- inclusive list. EKG interpreted by me (3pts min.). @ -As above X-rays interpreted by me (1pt min.). @ -Chest x-ray was reviewed myself and shows mild left midlung infiltrate. I agree with the radiologist's interpretation as above. CT interpreted by me (1pt min.). @ -None done U/S interpreted by me (1pt. min.). @ -None done What testing was considered but not performed or refused? (CT, X-rays, U/S, labs)? Why? @ -None What meds were considered but not given or refused? Why? @ -None Did you discuss the management of the patient with other professionals (professionals i.e. , PA, RADIUS CORNER MACHINE OPERATOR, lab, RT, psych nurse, social service technician, preventative maintenance technician, teacher, bank compliance officer, disease case manager rn)? Give summary @ -As above. Was smoking cessation discussed for >3mins.? @ -No Was critical care preformed (if so, how long)? @ -No Were there social determinants of health that impacted care today? How? (Homelessness, low income, unemployed, alcoholism, drug addiction, transport ation, low edu. Level, literacy, decrease access to med. care, detention, rehab)? @ -No Was there de-escalation of care discussed even if they declined (Discuss DNR or withdrawal of care, Hospice)? DNR status @ -No What co-morbidities impacted this encounter? (DM, HTN, Smoking, COPD, CAD, Cancer, CVA, ARF, Chemo, Hep., AIDS, mental health diagnosis, sleep apnea, morbid obesity)? @ -None Was patient admitted / discharged? Hospital course, mention meds given and route, prescriptions, significant lab abnormalities, going to OR and other pertinent info. @ -Patient has been alert and breathing comfortably while in the ED. Patient has a normal room her oxygen saturation. Patient's chest x-ray shows improving infiltrates. Patient's troponin is trending downward. Patient denies having any chest pain. Patient is afebrile. Case was discussed with the patient's PCP Dr. Medrano, and he agrees with discharging the patient home at this time. Patient is scheduled to see him in his clinic in 2 days. Patient was advised to complete the courses of antibiotics that he was prescribed and to continue taking his prednisone as prescribed. Strict return instructions were provided. Will discharge patient home at this time. Undiagnosed new problem with uncertain prognosis? @ -No Drug Therapy requiring intensive monitoring for toxicity (Heparin, Nitro, Insulin, Cardizem)? @ -No Were any procedures done? @ -No Diagnosis/symptom? @ -Dyspnea Acute, or Chronic, or Acute on Chronic? @ -Default Uncomplicated (without systemic symptoms) or Complicated (systemic symptoms)? @ -Default Side effects of treatment? @ -No Exacerbation, Progression, or Severe Exacerbation? @ -No Poses a threat to life or bodily function? How? (Chest pain, [place], [place], pneumonia, PE, COPD, DKA, ARF, appy, cholecystitis, CVA, Diverticulitis, Homicidal, Suicidal, threat to staff... and all critical care pts) @ -No Diagnosis/symptom? @ -Resolving pneumonia Acute, or Chronic, or Acute on Chronic? @ -Default Uncomplicated (without systemic symptoms) or Complicated (systemic symptoms)? @ -Default Side effects of treatment? @ -None Exacerbation, Progression, or Severe Exacerbation] @ -No Poses a threat to life or bodily function? @ -No Diagnosis/symptom? @ -Chronic renal insufficiency Acute, or Chronic, or Acute on Chronic? @ -Chronic Uncomplicated (without systemic symptoms) or Complicated (systemic symptoms)? @ -Default Side effects of treatment? @ -None Exacerbation, Progression, or Severe Exacerbation] @ -No Poses a threat to life or bodily function? @ -No - Lab Data Result diagrams: 07/07/23 21:21 07/07/23 21:21 Lab Results 07/07/23 07/07/23 07/07/23 Range/Units 21:21 21:21 21:21 WBC 3.2 L (3.8-10.6) k/uL RBC 4.70 (4.30-5.90) m/uL Hgb 12.3 L (13.0-17.5) gm/dL Hct 38.5 L (39.0-53.0) % MCV 81.9 (80.0-100.0) fL MCH 26.3 (25.0-35.0) pg MCHC 32.1 (31.0-37.0) g/dL RDW 19.0 H (11.5-15.5) % Plt Count 58 L (150-450) k/uL MPV 7.6 Neutrophils % 89 % Lymphocytes % 7 % Monocytes % 2 % Eosinophils % 1 % Basophils % 0 % Neutrophils # 2.9 (1.3-7.7) k/uL Lymphocytes # 0.2 L (1.0-4.8) k/uL Monocytes # 0.1 (0-1.0) k/uL Eosinophils # 0.0 (0-0.7) k/uL Basophils # 0.0 (0-0.2) k/uL Hypochromasia Slight Anisocytosis Slight Microcytosis Slight PT 12.9 H (10.0-12.5) sec INR 1.2 H (<1.2) APTT 29.7 (22.0-30.0) sec Sodium 136 L (137-145) mmol/L Potassium 3.5 (3.5-5.1) mmol/L Chloride 102 (98-107) mmol/L Carbon Dioxide 24 (22-30) mmol/L Anion Gap 10 mmol/L BUN 53 H (9-20) mg/dL Creatinine 1.72 H (0.66-1.25) mg/dL Est GFR (CKD-EPI)AfAm 45 (>60 ml/min/1.73 sqM) Est GFR (CKD-EPI)NonAf 39 (>60 ml/min/1.73 sqM) Glucose 102 H (74-99) mg/dL Plasma Lactic Acid Rashel (0.7-2.0) mmol/L Calcium 9.1 (8.4-10.2) mg/dL Total Bilirubin 1.2 (0.2-1.3) mg/dL AST 36 (17-59) U/L ALT 34 (4-49) U/L Alkaline Phosphatase 95 (38-126) U/L Troponin I (0.000-0.034) ng/mL NT-Pro-B Natriuret Pep 4270 pg/mL Total Protein 6.6 (6.3-8.2) g/dL Albumin 3.5 (3.5-5.0) g/dL Influenza Type A (PCR) (Not Detectd) Influenza Type B (PCR) (Not Detectd) RSV (PCR) (Not Detectd) SARS-CoV-2 (PCR) (Not Detectd) 07/07/23 07/07/23 07/07/23 Range/Units 21:21 21:21 21:21 WBC (3.8-10.6) k/uL RBC (4.30-5.90) m/uL Hgb (13.0-17.5) gm/dL Hct (39.0-53.0) % MCV (80.0-100.0) fL MCH (25.0-35.0) pg MCHC (31.0-37.0) g/dL RDW (11.5-15.5) % Plt Count (150-450) k/uL MPV Neutrophils % % Lymphocytes % % Monocytes % % Eosinophils % % Basophils % % Neutrophils # (1.3-7.7) k/uL Lymphocytes # (1.0-4.8) k/uL Monocytes # (0-1.0) k/uL Eosinophils # (0-0.7) k/uL Basophils # (0-0.2) k/uL Hypochromasia Anisocytosis Microcytosis PT (10.0-12.5) sec INR (<1.2) APTT (22.0-30.0) sec Sodium (137-145) mmol/L Potassium (3.5-5.1) mmol/L Chloride (98-107) mmol/L Carbon Dioxide (22-30) mmol/L Anion Gap mmol/L BUN (9-20) mg/dL Creatinine (0.66-1.25) mg/dL Est GFR (CKD-EPI)AfAm (>60 ml/min/1.73 sqM) Est GFR (CKD-EPI)NonAf (>60 ml/min/1.73 sqM) Glucose (74-99) mg/dL Plasma Lactic Acid Rashel 1.7 (0.7-2.0) mmol/L Calcium (8.4-10.2) mg/dL Total Bilirubin (0.2-1.3) mg/dL AST (17-59) U/L ALT (4-49) U/L Alkaline Phosphatase (38-126) U/L Troponin I 0.055 H* (0.000-0.034) ng/mL NT-Pro-B Natriuret Pep pg/mL Total Protein (6.3-8.2) g/dL Albumin (3.5-5.0) g/dL Influenza Type A (PCR) Not Detected (Not Detectd) Influenza Type B (PCR) Not Detected (Not Detectd) RSV (PCR) Not Detected (Not Detectd) SARS-CoV-2 (PCR) Not Detected (Not Detectd) - Radiology Data Chest x-ray: 1. Minimal bibasilar platelike atelectasis. 2. Mild residual left mid lung infiltrate. Disposition Clinical Impression: Dyspnea, Chronic renal insufficiency, Elevated troponin, Pneumonia, Pancytopenia Disposition: HOME SELF-CARE Condition: Stable Instructions (If sedation given, give patient instructions): Chronic Kidney Disease (ED), Bacterial Pneumonia (ED), Dyspnea (ED) Additional Instructions: Return to the ER immediately should you develop increased shortness of breath, any significant pain, a fever, vomiting, feeling dizzy or faint, or new or worsening symptoms. Follow-up closely with your primary care provider in 2 days (on Saturday) as scheduled. Is patient prescribed a controlled substance at d/c from ED?: No Referrals: Drew Medrano MD [Primary Care Provider] - 1-2 days Time of Disposition: 22:52
[2023-07-07 21:27] LABS: Anisocytosis Slight; Basophils % (A) 0 %; Eosinophils % (A) 1 %; HCT 38.5 % (39.0-53.0); HGB 12.3 gm/dL (13.0-17.5); Hypochromasia Slight; Lymphocytes # (A) 0.2 k/uL (1.0-4.8); Lymphocytes % (A) 7 %; MCH 26.3 pg (25.0-35.0); MCHC 32.1 g/dL (31.0-37.0); MCV 81.9 fL (80.0-100.0); Mean Platelet Volume 7.6; Microcytosis Slight; Monocytes # (A) 0.1 k/uL (0-1.0); Monocytes % (A) 2 %; Neutrophils # (A) 2.9 k/uL (1.3-7.7); Neutrophils % (A) 89 %; WBC 3.2 k/uL (3.8-10.6)
[2023-07-07 21:28] LABS: Platelet Count 58 k/uL (150-450)
[2023-07-07 21:36] LABS: INR 1.2 (<1.2); Partial Thromboplastin Time 29.7 sec (22.0-30.0); Prothrombin Time 12.9 sec (10.0-12.5)
[2023-07-07 21:41] LABS: African American GFR (CKD) 45 (>60 ml/min/1.73 sqM); Albumin 3.5 g/dL (3.5-5.0); Carbon Dioxide 24 mmol/L (22-30); Non-African American GFR(CKD) 39 (>60 ml/min/1.73 sqM); Total Protein 6.6 g/dL (6.3-8.2)
[2023-07-07 21:51] LABS: NT-Pro-B-Type Natriuretic Pept 4270 pg/mL
--- NOTE | 2023-07-07 22:02 | XR ---
EXAMINATION TYPE: XR chest 2V DATE OF EXAM: 07/07/2023 COMPARISON: 07/04/2023 INDICATION: Difficulty breathing TECHNIQUE: Frontal and lateral views of the chest are obtained. FINDINGS: The heart size is normal. The pulmonary vasculature is normal. Some minimal atelectasis may be at the bilateral lung bases. Some mild infiltrate in the peripheral l eft mid lung may remain present. Previous infiltrates largely resolved. IMPRESSION: 1. Minimal bibasilar platelike atelectasis. 2. Mild residual left mid lung infiltrate.
[2023-07-07 22:09] LABS: ALT 34 U/L (4-49); AST 36 U/L (17-59); Alkaline Phosphatase 95 U/L (38-126); Anion Gap 10 mmol/L; Blood Urea Nitrogen 53 mg/dL (9-20); Calcium 9.1 mg/dL (8.4-10.2); Chloride 102 mmol/L (98-107); Glucose 102 mg/dL (74-99); Potassium 3.5 mmol/L (3.5-5.1); Sodium 136 mmol/L (137-145); Total Bilirubin 1.2 mg/dL (0.2-1.3)
== END 2023-07-07 23:35 | disposition home or self-care (01) ==
LOC: EC 20:53
DX: D61.818 Other pancytopenia (principal); I12.9 Hypertensive chronic kidney disease with stage 1 through stage 4 chronic kidney disease, or unspecified chronic kidney disease; N18.9 Chronic kidney disease, unspecified; J18.9 Pneumonia, unspecified organism; R79.89 Other specified abnormal findings of blood chemistry; Z87.891 Personal history of nicotine dependence; Z88.8 Allergy status to other drugs, medicaments and biological substances; Z79.899 Other long term (current) drug therapy; Z79.01 Long term (current) use of anticoagulants
CPT/HCPCS: 36415; 71046; 80053; 83605; 83880; 84484; 85025; 85610; 85730; 87636; 93005; 99285

== ENCOUNTER → 2023-11-01 | Outpatient (CLI) | payer OTHER ==
--- NOTE | 2023-11-01 10:57 | US ---
EXAMINATION TYPE: US kidneys/renal and bladder DATE OF EXAM: 11/01/2023 COMPARISON: CT abdomen pelvis 09/06/2017 CLINICAL INDICATION: Male, 73 years old with history of N18.9 CHRONIC KIDNEY DISEASE; CKD EXAM MEASUREMENTS: Right Kidney: 11.2 x 5.5 x 4.1cm Left Kidney: 11.5 x 5.5 x 5.1 cm Right Kidney: multiple anechoic lesions noted, largest = 2.0 x 1.7 x 1.7cm. dilated renal pelvis Left Kidney: multiple anechoic lesions noted, largest = 2.4 1.7 x 2.3cm Bladder: appears wnl Bilateral Jets seen: no Prostate = 4.9cm Splenomegaly. spleen = 20.5cm There is no evidence for hydronephrosis at this point in time. No nephrolithiasis is seen. Bilateral simple appearing thin wall renal cysts identified. Prominent right extrarenal pelvis. Increased polly ical renal echogenicity with slight cortical thinning. The urinary bladder is anechoic. No filling de fects identified. Bilateral ureteral jets are not seen. Splenomegaly. Mildly prominent prostate glan d. IMPRESSION: 1. No hydronephrosis or nephrolithiasis. 2. Findings of chronic medical renal disease bilaterally. 3. Bilateral simple renal cysts. 4. Splenomegaly.
== END | disposition home or self-care (01) ==
LOC: RADUSWWP 10:06
PROVIDERS: ATTEND Family Medicine
DX: N18.9 Chronic kidney disease, unspecified (principal); N28.1 Cyst of kidney, acquired; R16.1 Splenomegaly, not elsewhere classified
CPT/HCPCS: 76770

== ENCOUNTER → 2023-11-08 | Outpatient (CLI) | payer MEDICARE, OTHER ==
--- NOTE | 2023-11-08 14:21 | US ---
EXAMINATION TYPE: US arterial LE single level DATE OF EXAM: 11/08/2023 2:00 PM CLINICAL INDICATION: Male, 73 years old with history of M79.606 PAIN IN LEG; pain in feet History of: Smoker: previous Hypertension: no Diabetic: no Hyperlipidemia: yes TIA/CVA: no Previous Vascular Surgery: no CAD: no [place]: yes Vascular Ulcers: no Claudication: no Gangrene: no Doppler Waveforms: Right: Multiphasic waveforms Left: Multiphasic waveforms Right Brachial Pressure: 130 Left Brachial Pressure: 122 Ankle-Brachial Indices: Right: 1.18 Left: 1.18 (Vessel hardening > 1.4; Normal 0.9 - 1.4, Moderate 0.7 - 0.9, Severe 0.5-0.7) Toe Brachial Indices: Right: .73 Left: .62 IMPRESSION: Normal ankle-brachial indices bilaterally.
== END | disposition home or self-care (01) ==
LOC: RADUSWWP 13:35
PROVIDERS: ATTEND Internal Medicine Geriatric Medicine
DX: M79.606 Pain in leg, unspecified (principal); E78.5 Hyperlipidemia, unspecified
CPT/HCPCS: 93922

== ENCOUNTER → 2024-01-10 | Outpatient (CLI) | payer MEDICARE, OTHER ==
[2024-01-10 16:23] LABS: HCT 33.6 % (39.6-50.0); HGB 10.6 g/dL (13.0-17.0); Immature Platelet Fraction 4.7 % (1.1-6.1); MCH 26.3 pg (27.0-32.0); MCHC 31.5 g/dL (32.0-37.0); MCV 83.4 FL (80.0-97.0); NRBC Per 100 WBC 0 X 10*3/uL (0.00-0.01); Platelet Count 70 X 10*3/uL (140-440); RBC 4.03 X 10*6/uL (4.40-5.60); RBC Morphology Normal (Normal); RDW 17.2 % (11.5-14.5); WBC 2.04 X 10*3/uL (4.50-10.00)
[2024-01-10 18:55] LABS: Blood Urea Nitrogen 43.1 mg/dL (9.0-27.0); Carbon Dioxide 24.8 mmol/L (21.6-31.8); Chloride 104 mmol/L (96-109); Potassium 3.7 mmol/L (3.5-5.5); Sodium 143 mmol/L (135-145)
== END ==
LOC: LABWHC1 09:27
PROVIDERS: ATTEND Internal Medicine Clinical Cardiac Electrophysiology
DX: I48.0 Paroxysmal atrial fibrillation (principal)
CPT/HCPCS: 36415; 80051; 82565; 84520; 85027

== ENCOUNTER 2024-01-20 08:54 | Day surgery (SDC) | payer MEDICARE, OTHER ==
[2024-01-14 14:09] VITALS: BMI 26.5
[~2024-01-20 08:54] MED LIST changes: -LACTATED RINGERS 1,000 ML IV SCH; -MIDAZOLAM 2 MG/2 ML VIAL IVP ONE; -SODIUM CHLORIDE 0.9% 500 ML 500 ML IV ONE; +VANCOMYCIN IV PER PHARMACY 1 EACH MISC MISCELLANE PRN; -fentaNYL (PF) 50 MCG/ML 2 ML AMP IVP ONE; -fentaNYL (PF) 50 MCG/ML 2 ML AMP ONE
[2024-01-20] MEDS: IV FLUID CONTINUATION 1,000 ML IV ONE (09:35)
[2024-01-20] MEDS: SODIUM CHLORIDE 0.9% 1,000 ML IV SCH ×2 (09:35→15:01)
[2024-01-20] MEDS: VANCOMYCIN 1,250 MG in SODIUM CHLORIDE 0.9% 250 ML IVPB ONE (09:36)
[2024-01-20 09:47] LABS: Anisocytosis Slight; Basophils % (A) 0 %; Eosinophils # (A) 0.1 k/uL (0-0.7); Eosinophils % (A) 7 %; HCT 32.3 % (39.0-53.0); HGB 10.9 gm/dL (13.0-17.5); Lymphocytes # (A) 0.3 k/uL (1.0-4.8); Lymphocytes % (A) 21 %; MCH 27.3 pg (25.0-35.0); MCHC 33.8 g/dL (31.0-37.0); MCV 80.8 fL (80.0-100.0); Mean Platelet Volume 10.6; Microcytosis Slight; Monocytes # (A) 0.1 k/uL (0-1.0); Monocytes % (A) 8 %; Neutrophils % (A) 62 %; Poikilocytosis Slight; RDW 17.7 % (11.5-15.5); WBC 1.6 k/uL (3.8-10.6)
[2024-01-20 09:57] LABS: ALT 26 U/L (4-49); AST 40 U/L (17-59); African American GFR (CKD) 41 (>60 ml/min/1.73 sqM); Albumin 3.9 g/dL (3.5-5.0); Alkaline Phosphatase 105 U/L (38-126); Anion Gap 8 mmol/L; Blood Urea Nitrogen 46 mg/dL (9-20); Calcium 9.2 mg/dL (8.4-10.2); Carbon Dioxide 26 mmol/L (22-30); Chloride 105 mmol/L (98-107); Glucose 99 mg/dL (74-99); Non-African American GFR(CKD) 35 (>60 ml/min/1.73 sqM); Potassium 3.3 mmol/L (3.5-5.1); Sodium 139 mmol/L (137-145); Total Bilirubin 1.2 mg/dL (0.2-1.3); Total Protein 6.9 g/dL (6.3-8.2)
[2024-01-20 10:22] LABS: Platelet Count 72 k/uL (150-450)
[2024-01-20 10:23] LABS: Poikilocytosis (M) Present
[2024-01-20] MEDS ORDERED: fentaNYL (PF) 50 MCG/ML 2 ML AMP ONE (11:22)
[2024-01-20] MEDS ORDERED: MIDAZOLAM 2 MG/2 ML VIAL ONE (11:22)
[2024-01-20] MEDS ORDERED: KETAMINE HCL IN 0.9 % NACL 50 MG/5 ML SYRINGE ONE (11:22)
[2024-01-20] MEDS ORDERED: PROPOFOL 10 MG/ML 20 ML VIAL IV ONE (11:22)
[2024-01-20] MEDS: IOPAMIDOL-370 100ML BTL IVP ONE (11:37)
[2024-01-20] MEDS: HEPARIN SODIUM,PORCINE (1 ML) 2,500 UNIT in SODIUM CHLORIDE 0.9% 250 ML IRRIGATION ONE (11:47)
[2024-01-20] MEDS: ceFAZolin 1 GM in SODIUM CHLORIDE 0.9% IRRIG BTL 250 ML IRRIGATION PRN (11:48)
[2024-01-20] MEDS: LIDOCAINE 1% INJ 10MG/ML (20 ML MDV) SQ ONE (12:14)
[2024-01-20] MEDS: ROPIVACAINE 5 MG/ML 30 ML VIAL MISCELLANE ONE (12:14)
[2024-01-20] MEDS ORDERED: ACETAMINOPHEN TAB 325 MG TAB PO PRN (13:32)
--- NOTE | 2024-01-20 13:57 | P.EPPROC ---
- EP Procedure Note Electrophysiology Procedure Note: Diagnosis Symptomatic bradycardia, unprovoked, no triggering factors Tachybradycardia syndrome Procedure Dual-chamber pacemaker implantation with conduction system pacing (left bundle pacing) Left upper extremity venogram Details Patient was brought to the EP lab in a fasting state. Written informed consent was obtained prior to the procedure. Conscious sedation provided by CLAIM ANALYST. IV antibiotics administered including IV vancomycin. Local anesthesia administered. A 4 cm incision made in the pectoral area. Subfascial pocket made. Venous accesses obtained Venous sheaths placed. Leads placed in the right heart. 2 sets of pacing cables were used; one for backup temporary pacing and the other for assessment of current of injury and signal analysis. A 52 cm atrial pacing lead was first positioned in the RV apex for temporary pacing during mapping and conduction system pacing Thresholds were interrogated and backup high output pacing was provided This atrial lead was then removed from the right ventricle and later positioned in the right atrial appendage and the permanent lead A deflected sheath was prepped. A coronary sinus decapolar catheter was placed within this sheath. The catheter along with the sheath was then passed into the right heart, the catheter was prolapsed across the tricuspid valve, into the right ventricle and then further into the right ventricular outflow tract across the pulmonic valve into the pulmonary artery. This sheath was slid over this decapolar catheter into the RVOT. Thereafter the catheter last sheath assembly was withdrawn from the RVOT along the septum to the mid septal area. The sheath was appropriately to to map the right ventricular aspect of the septum. The decapolar catheter was withdrawn, the sheath flushed again and the screw-in pacing lead placed within the sheath. Further detailed unipolar pace-mapping of the septum was performed and once the appropriate based morphology was obtained on lead V1, the lead was screwed into the septum. The lead was screwed in 4-5 returns at a time while monitoring the current of injury, the pacing impedance changes and the paced QRS morphology. The stimulus to peak of V6 QRS was measured at each step. Once a QR or rSR pattern of paced QRS in lead V1 was obtained, a left bundle signal was sought. Impedance was measured and thresholds were measured. An impedance drop of 100-200 ohms but above 550 ohms was targeted along with an unchanged vector of the current of injury signal. The final positioning was based on the QRS morphology in lead V1 and a short stimulus to peak of the V6 QRS of less than 90 ms. The sheath was withdrawn, stability of the pacing lead deep in the septum was confirmed on LUIS and FRISIAN views and the sheath was slipped and an adequate heel was provided for the lead. Unipolar and bipolar electrogram morphology obtained Atrial lead positioned in the right atrial appendage. 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
[2024-01-20] MEDS: METOPROLOL SUCCINATE (ER) 50 MG TAB.ER.24H PO SCH (15:26)
[2024-01-20] MEDS: hydrALAZINE HCL 50 MG TAB PO SCH (15:26)
[2024-01-20] MEDS: HYDROcodone/APAP 10-325MG 1 EACH TAB PO PRN (15:26)
[2024-01-20] MEDS: ACETAMINOPHEN IV (For NPO) 1,000 MG in EMPTY BAG 1 BAG IVPB ONE (15:37)
[2024-01-20] MEDS: IPRATROPIUM-ALBUTEROL 3 ML NEB INHALATION SCH (16:03)
[2024-01-20] MEDS: PANTOPRAZOLE 40 MG TABLET PO SCH (21:10)
[2024-01-21] MEDS ORDERED: NON FORMULARY DRUG (Tiotropium 2.5 Mcg/Puff 10 PUFF Each) INHALATION SCH (08:00)
--- NOTE | 2024-01-21 08:25 | XR ---
EXAMINATION TYPE: XR chest 2V DATE OF EXAM: 01/21/2024 7:33 AM CLINICAL INDICATION: Male, 73 years old with history of Lead placement check; [facility] COMPARISON: Chest radiographs from 07/07/2023 TECHNIQUE: XR chest 2V Frontal view of the chest. FINDINGS: Lungs/Pleura: There is no evidence of pleural effusion, focal consolidation, or pneumothorax. Pulmonary vascularity: Unremarkable. Heart/mediastinum: Cardiomediastinal silhouette is unremarkable. Two lead cardiac conduction device o verlying the left hemithorax with lead tips projecting over the right ventricle and right atrium. Musculoskeletal: No acute osseous pathology. IMPRESSION: Cardiac conduction leads in appropriate position, No acute cardiopulmonary disease/process. [facility], , 01/21/2024 8:22 AM
[2024-01-21] MEDS: SYMBICORT 160-4.5 MCG INHALER INHALATION SCH (08:53)
[2024-01-21] MEDS: predniSONE 5 MG TAB PO SCH (10:26)
[2024-01-21] MEDS: FUROSEMIDE 40 MG TAB PO SCH (10:26)
[2024-01-21] MEDS: amLODIPine 10 MG TAB PO SCH (10:26)
[2024-01-21] MEDS: FOLIC ACID 1 MG TAB PO SCH (10:26)
[2024-01-21] MEDS: COLCHICINE 0.6 MG EACH PO SCH (10:27)
--- NOTE | 2024-01-21 11:56 | P.DS ---
Providers Attending physician: Delgado Francis Primary care physician: [facility] Course: Patient is doing well. He is ambulating around the room Blood pressure is normal Heart sounds are normal Breath sounds are clearPulse rate 55-65, blood pressure 147/76 mmHg afebrile No rhonchi no crackles No murmurs Chest x-ray no pneumothorax leads in stable position Impression tachybradycardia syndrome A-fib with RVR unable to treat with beta-blockers/AV buddy blocking drugs e ffectively Status post dual-chamber pacemaker with conduction system pacing, left bundle Pacemaker functioning normally Plan continue anticoagulation but start Eliquis tomorrow since patient has a low platelet count. Last platelet count of 70,000 Increase metoprolol to long-acting 50 mg p.o. daily Follow-up in the office after 2 days for removal of the compression dressing Device clinic follow-up in 1 week Follow-up with Dr. Post Plan - Discharge Summary Discharge Rx Participant: No New Discharge Prescriptions: New RX: Metoprolol Succinate [Toprol XL] 50 mg PO DAILY #90 tab Discontinued RX: Metoprolol Tartrate [Lopressor] 12.5 mg PO BID #60 tab No Action RX: amLODIPine [Norvasc] 10 mg PO DAILY RX: Colchicine 0.6 mg PO DAILY RX: traZODone HCL [Desyrel] 50 mg PO HS RX: Cholecalciferol [Vitamin D3 (25 Mcg = 1000 Iu)] 25 mcg PO DAILY RX: Apixaban [Eliquis] 2.5 mg PO DAILY RX: HYDROcodone/APAP 10-325MG [[place] 10-325] 1 tab PO QID PRN PRN Reason: Pain RX: Pantoprazole Sodium [Protonix] 20 mg PO BID RX: Albuterol Inhaler [Ventolin Hfa Inhaler] 2 puff INHALATION RT-Q6H PRN PRN Reason: Shortness Of Breath RX: Ipratropium-Albuterol Nebulize [Duoneb 0.5 mg-3 mg/3 ml Soln] 3 ml INHALATION RT-QID #120 each RX: Furosemide [Lasix] 40 mg PO DAILY #30 tab Fluticasone Propion/Salmeterol [[place]ixela 500-50 Inhub] 1 inhalation PO DAILY RX: hydrALAZINE HCL [Apresoline] 100 mg PO TID RX: predniSONE 2.5 mg PO DAILY RX: Tiotropium 2.5 Mcg/Puff [Spiriva Respimat 2.5 Mcg] 2 puff INHALATION RT- DAILY RX: Multivit-Min/FA/Lycopen/Lutein [Centrum Silver Tablet] 1 tab PO DAILY RX: Folic Acid 0.4 mg PO DAILY Discharge Medication List RX: amLODIPine [Norvasc] 10 mg PO DAILY 08/06/14 [History] RX: Colchicine 0.6 mg PO DAILY 08/02/16 [History] RX: hydrALAZINE HCL [Apresoline] 100 mg PO TID 06/08/22 [History] RX: Tiotropium 2.5 Mcg/Puff [Spiriva Respimat 2.5 Mcg] 2 puff INHALATION RT- DAILY 01/14/23 [History] RX: predniSONE 2.5 mg PO DAILY 01/14/23 [History] RX: traZODone HCL [Desyrel] 50 mg PO HS 01/14/23 [History] RX: Cholecalciferol [Vitamin D3 (25 Mcg = 1000 Iu)] 25 mcg PO DAILY 02/11/23 [History] RX: Multivit-Min/FA/Lycopen/Lutein [Centrum Silver Tablet] 1 tab PO DAILY [History] RX: Apixaban [Eliquis] 2.5 mg PO DAILY 03/07/23 [History] RX: Albuterol Inhaler [Ventolin Hfa Inhaler] 2 puff INHALATION RT-Q6H PRN 06/30/23 [History] RX: Folic Acid 0.4 mg PO DAILY 06/30/23 [History] RX: HYDROcodone/APAP 10-325MG [[place] 10-325] 1 tab PO QID PRN 06/30/23 [History] RX: Pantoprazole Sodium [Protonix] 20 mg PO BID 06/30/23 [History] RX: Furosemide [Lasix] 40 mg PO DAILY #30 tab 07/04/23 [Rx] RX: Ipratropium-Albuterol Nebulize [Duoneb 0.5 mg-3 mg/3 ml Soln] 3 ml INHALATION RT-QID #120 each 07/04/23 [Rx] Fluticasone Propion/Salmeterol [Wixela 500-50 Inhub] 1 inhalation PO DAILY 01/14/24 [History] RX: Metoprolol Succinate [Toprol XL] 50 mg PO DAILY #90 tab 01/20/24 [Rx] Follow up Appointment(s)/Referral(s): Delgado Francis MD [STAFF PHYSICIAN] - 01/27/24 3:00 pm (Appointment is at the Device Clinic located at Cardiology's Main Office on [address] Patient Instructions/Handouts: Moderate Sedation (DC), Pacemaker (DC) Activity/Diet/Wound Care/Special Instructions: PATIENT EDUCATION MATERIAL Instructions following a heart rhythm device implant. 1. Keep dressing DRY for 5 DAYS. You may cover the area with Saran or Cling Wrap, prior to a shower. 2. The dressing will be removed in the Device Clinic at [facility]. Absorbable sutures were used to close the wound. 3. Avoid raising the left arm above the shoulder level. 4 week restriction 4. Avoid arm movements, like backscratching, rubbing the head, or pulling on a cord. 4 weeks restriction 5. Gentle range of motion movements of the shoulder, closest to the incision should be performed to avoid a frozen shoulder. (Pendulum exercises of the shoulder) 6. The opposite arm may be used freely. 7. Avoid driving for 7 days. 8. Avoid activities such as golfing, swimming, weed whacking, lifting more than 10 pounds weight, bowling, gymnastics and weight training/lifting. (6 weeks restriction) 9. Activities such as wood chopping with an axe, pull-ups in the gymnasium, power lifting, arc-welding, being close to home induction cooktops will always be a problem. 10. Arm sling is only a reminder not to raise the arm above the head. You do not need to keep the arm completely immobilized. Your free to move the arm and use it and for normal activities. In case of any problems, please call [facility] [place], @ [phone], Attention: Device Clinic Device clinic follow-up in 5 days Follow-up with primary draw frame operator in 2-3 months Hold Eliquis for 2 more doses post discharge Resume Eliquis 21 January morning Stop metoprolol to tartrate Start metoprolol succinate 50 mg p.o. daily Continue all other medications unchanged Discharge Disposition: HOME SELF-CARE
[2024-01-21 12:14] VITALS: BP 167/71; PULSE 58; RESP 16; TEMP 97.5
== END 2024-01-21 13:28 | disposition home or self-care (01) ==
LOC: CATHEP 08:54 → 6NMEDSUR 13:30 → CATHEP 01-21 13:28
PROVIDERS: ATTEND Internal Medicine Clinical Cardiac Electrophysiology
DX: I49.5 Sick sinus syndrome (principal); I50.9 Heart failure, unspecified; I48.0 Paroxysmal atrial fibrillation; J44.9 Chronic obstructive pulmonary disease, unspecified; I11.0 Hypertensive heart disease with heart failure; Z87.891 Personal history of nicotine dependence
CPT/HCPCS: 94640 ×3; 33208; 86900; 86901; 80053; 84443; 85025; 86850; 71046; C1769 ×2; C1730; C1887; C1892; C1898; C1785; J2250; J3370; J1644; J0690; J2003; J3010; J2795; J2704; J7512; Q9967

== ENCOUNTER 2024-02-06 08:48 | Inpatient (IN) | payer MEDICARE, OTHER ==
--- NOTE | 2024-02-06 09:26 | ED ---
Chest Pain HPI - General Chief Complaint: Chest Pain Stated Complaint: chest pain/SOB Time Seen by Provider: 02/06/24 08:54 Source: patient, RN notes reviewed Mode of arrival: wheelchair Limitations: no limitations - History of Present Illness Initial Comments: 74 year old male presents to the ED with chief complaint of chest pain. He is two weeks status post dual chamber pacemaker placement. He reports chest pain, diaphragmatic pain, shortness of breath, cough and hemoptysis that began about 2 weeks ago, however, is worse today. He states that he has been wearing his home oxygen to relieve his shortness of breath with minimal relief, and he is on eliquis daily. His history significant for tacky/ty syndrome, symptomatic bradycardia, atrial fibrillation, COPD, lung cancer and recent heart catheterization. He states that last year he had pneumonia for which she was hospitalized multiple times and this feels much like those occurrences he denies syncope, abdominal pain, nausea vomiting, leg swelling, calf tenderness/pain. - Related Data Home Medications Medication Instructions Recorded Confirmed amLODIPine [Norvasc] 10 mg PO DAILY 08/06/14 01/20/24 Colchicine 0.6 mg PO DAILY 08/02/16 01/20/24 hydrALAZINE HCL [Apresoline] 100 mg PO TID 06/08/22 01/20/24 Tiotropium 2.5 Mcg/Puff [Spiriva 2 puff INHALATION RT-DAILY 01/14/23 01/20/24 Respimat 2.5 Mcg] predniSONE 2.5 mg PO DAILY 01/14/23 01/20/24 traZODone HCL [Desyrel] 50 mg PO HS 01/14/23 01/20/24 Cholecalciferol [Vitamin D3 (25 25 mcg PO DAILY 02/11/23 01/20/24 Mcg = 1000 Iu)] Multivit-Min/FA/Lycopen/Lutein 1 tab PO DAILY 02/11/23 01/14/24 [Centrum Silver Tablet] Apixaban [Eliquis] 2.5 mg PO DAILY 03/07/23 01/20/24 Albuterol Inhaler [Ventolin Hfa 2 puff INHALATION RT-Q6H PRN 06/30/23 01/20/24 Inhaler] Folic Acid 0.4 mg PO DAILY 06/30/23 01/20/24 HYDROcodone/APAP 10-325MG [[place] 1 tab PO QID PRN 06/30/23 01/20/24 10-325] Pantoprazole Sodium [Protonix] 20 mg PO BID 06/30/23 01/20/24 Fluticasone Propion/Salmeterol 1 inhalation PO DAILY 01/14/24 01/20/24 [Wixela 500-50 Inhub] Previous Rx's Medication Instructions Recorded Furosemide [Lasix] 40 mg PO DAILY #30 tab 07/04/23 Ipratropium-Albuterol Nebulize 3 ml INHALATION RT-QID #120 each 07/04/23 [Duoneb 0.5 mg-3 mg/3 ml Soln] Metoprolol Succinate [Toprol XL] 50 mg PO DAILY #90 tab 01/20/24 Metoprolol Succinate [Toprol XL] 50 mg PO DAILY #30 tab 01/21/24 Allergies Allergy/AdvReac Type Severity Reaction Status Date / Time No Known Allergies Allergy Verified 01/14/24 13:50 Review of Systems ROS Statement: Those systems with pertinent positive or pertinent negative responses have been documented in the HPI. ROS Other: All systems not noted in ROS Statement are negative. 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 Hospitalized last week for CHF & Pneumonia. Irr. heart rate @ times. liver cancer History of Any Multi-Drug Resistant Organisms: None Reported Past Surgical History: Back Surgery, Heart Catheterization, Hernia Repair, Orthopedic Surgery, Pacemaker Additional Past Surgical History / Comment(s): liver ablation done at [place] for tx of hepatocellular carcinoma,hemorrhoids ,back surgery, cataract, skin cancer, inguinal hernia, abdominal hernia, left shoulder, right wrist, growth removed vocal cord, PAROTID GLAND REMOVED DUE TO CANCER. Past Anesthesia/Blood Transfusion Reactions: No Reported Reaction Additional Past Anesthesia/Blood Transfusion Reaction / Comment(s): no hx blood transfusion Past Psychological History: No Psychological Hx Reported Smoking Status: Former smoker Past Alcohol Use History: None Reported Past Drug Use History: None Reported - Past Family History Father Family Medical History: Cancer General Exam Limitations: no limitations General appearance: alert, in no apparent distress Head exam: Present: atraumatic, normocephalic, normal inspection Eye exam: Present: normal appearance, PERRL, EOMI. Absent: scleral icterus, conjunctival injection, periorbital swelling ENT exam: Present: normal exam, mucous membranes moist Neck exam: Present: normal inspection. Absent: tenderness, meningismus, lymphadenopathy Respiratory exam: Present: rhonchi (Rhonchi right upper lobe, diminished lung sounds lower lobes bilat/ anterior/posteriorly). Absent: respiratory distress, wheezes, rales, stridor Cardiovascular Exam: Present: regular rate, normal rhythm, normal heart sounds. Absent: systolic murmur, diastolic murmur, rubs, gallop, clicks GI/Abdominal exam: Present: soft, normal bowel sounds. Absent: distended, tenderness, guarding, rebound, rigid Extremities exam: Present: normal inspection, full ROM, normal capillary refill. Absent: tenderness, pedal edema, joint swelling, calf tenderness Back exam: Present: normal inspection Neurological exam: Present: alert, oriented X3, CN II-XII intact Psychiatric exam: Present: normal affect, normal mood Skin exam: Present: warm, dry, intact, normal color. Absent: rash Course Vital Signs 02/06/24 08:50 Temperature 97.6 F Pulse Rate 61 Respiratory 18 Rate Blood Pressure 141/61 O2 Sat by Pulse 93 L Oximetry Chest Pain MDM - MDM Was pt. sent in by a medical professional or institution (DALE Mendez, [employer] TAX [employer]LECTOR, urgent care, hospital, or retirement...) When possible be specific @ -No Did you speak to anyone other than the patient for history (EMS, parent, family, police, friend...)? What history was obtained from this source @ -No Did you review nursing and triage notes (agree or disagree)? Why? @ -I reviewed and agree with nursing and triage notes Were old charts reviewed (outside hosp., previous admission, EMS record, old EKG, old radiological studies, urgent care reports/EKG's, retirement records)? Report findings @ -[Reviewed prior EKG, CMP, chest x-ray, CBC Differential Diagnosis (chest pain, altered mental status, abdominal pain women, abdominal pain men, vaginal bleeding, weakness, fever, dyspnea, syncope, headache, dizziness, GI bleed, back pain, seizure, CVA, palpatations, mental health, musculoskeletal)? @ -Differential Chest Pain: Stable Angina, Unstable Angina, STEMI, NSTEMI Aortic Dissection, Pneumothorax, Musculoskeletal, Esophageal Spasm GERD, Cholecystitis, Pancreatitis, Zoster, this is not meant to be an all-inclusive list. EKG interpreted by me (3pts min.). @ -As above X-rays interpreted by me (1pt min.). @ -Chest x-ray shows evidence of pneumonia, COPD changes CT interpreted by me (1pt min.). @ -None done U/S interpreted by me (1pt. min.). @ -None done What testing was considered but not performed or refused? (CT, X-rays, U/S, labs)? Why? @ -None What meds were considered but not given or refused? Why? @ -None Did you discuss the management of the patient with other professionals (professionals i.e. , PA, [employer]IN[employer]ENT TAX COLLECTOR, lab, RT, psych nurse, nursing home social worker, moisture meter operator, teacher, chief green officer, case technician)? Give summary @ -EMH for admission Was smoking cessation discussed for >3mins.? @ -No Was critical care preformed (if so, how long)? @ -No Were there social determinants of health that impacted care today? How? (Homele ssness, low income, unemployed, alcoholism, drug addiction, transportation, low edu. Level, literacy, decrease access to med. care, senior living, rehab)? @ -No Was there de-escalation of care discussed even if they declined (Discuss DNR or withdrawal of care, Hospice)? DNR status @ -No What co-morbidities impacted this encounter? (DM, HTN, Smoking, COPD, CAD, Cancer, CVA, ARF, Chemo, Hep., AIDS, mental health diagnosis, sleep apnea, morbid obesity)? @ -COPD, cancer, CAD Was patient admitted / discharged? Hospital course, mention meds given and route, prescriptions, significant lab abnormalities, going to OR and other pertinent info. @ -Admitted patient presented for chest pain, cough congestion and shortness of breath. Patient has evidence of pneumonia on chest x-ray, patient does have mildly elevated troponin though is chronically elevated secondary to renal disease patient will have acute 3-hour troponins, patient started on antibiotics, blood cultures were ordered, procalcitonin was added. Patient will consult to cardiology and pulmonology. Undiagnosed new problem with uncertain prognosis? @ -No Drug Therapy requiring intensive monitoring for toxicity (Heparin, Nitro, Insulin, Cardizem)? @ -No Were any procedures done? @ -No Diagnosis/symptom? @ -Chest pain, pneumonia Acute, or Chronic, or Acute on Chronic? @ -Acute Uncomplicated (without systemic symptoms) or Complicated (systemic symptoms)? @ -Complicated Side effects of treatment? @ -No Exacerbation, Progression, or Severe Exacerbation? @ -No Poses a threat to life or bodily function? How? (Chest pain, [place], [place], pneumonia, PE, COPD, DKA, ARF, appy, cholecystitis, CVA, Diverticulitis, Homicidal, Suicidal, threat to staff... and all critical care pts) @ -Yes chest pain, pneumonia possible respiratory failure, cardiac arrest. Disposition Clinical Impression: Pneumonia, Elevated troponin, Chest pain, COPD (chronic obstructive pulmonary disease) Disposition: ADMITTED IP TO THIS HOSP Condition: Fair Referrals: Drew Medrano MD [Primary Care Provider] - 1-2 days Time of Disposition: 10:18
[2024-02-06 09:33] LABS: Anisocytosis Slight; Basophils % (A) 0 %; Eosinophils # (A) 0.1 k/uL (0-0.7); Eosinophils % (A) 3 %; HGB 9.9 gm/dL (13.0-17.5); Lymphocytes # (A) 0.2 k/uL (1.0-4.8); Lymphocytes % (A) 7 %; MCH 27.2 pg (25.0-35.0); MCHC 33.1 g/dL (31.0-37.0); MCV 82.4 fL (80.0-100.0); Mean Platelet Volume 9.9; Microcytosis Slight; Monocytes # (A) 0.2 k/uL (0-1.0); Monocytes % (A) 5 %; Neutrophils # (A) 2.8 k/uL (1.3-7.7); Neutrophils % (A) 85 %; Poikilocytosis Slight; RBC 3.64 m/uL (4.30-5.90); RDW 18.3 % (11.5-15.5); WBC 3.4 k/uL (3.8-10.6)
[2024-02-06 09:36] LABS: INR 1.2 (<1.2); Partial Thromboplastin Time 36.1 sec (22.0-30.0)
[2024-02-06 09:52] LABS: ALT 22 U/L (4-49); AST 47 U/L (17-59); African American GFR (CKD) 39 (>60 ml/min/1.73 sqM); Albumin 3.7 g/dL (3.5-5.0); Alkaline Phosphatase 85 U/L (38-126); Anion Gap 9 mmol/L; Blood Urea Nitrogen 48 mg/dL (9-20); Calcium 8.7 mg/dL (8.4-10.2); Carbon Dioxide 21 mmol/L (22-30); Chloride 107 mmol/L (98-107); Glucose 103 mg/dL (74-99); Magnesium 1.7 mg/dL (1.6-2.3); Non-African American GFR(CKD) 34 (>60 ml/min/1.73 sqM); Potassium 3.5 mmol/L (3.5-5.1); Sodium 137 mmol/L (137-145); Total Bilirubin 1.8 mg/dL (0.2-1.3); Total Protein 6.7 g/dL (6.3-8.2)
--- NOTE | 2024-02-06 09:58 | XR ---
EXAMINATION TYPE: XR chest 2V DATE OF EXAM: 02/06/2024 9:38 AM COMPARISON: 01/21/2024 CLINICAL INDICATION: Male, 74 years old with history of Chest Pain, , TECHNIQUE: PA and lateral views FINDINGS: Heart limits of normal in size. Hyperinflation. Surgical clips are in base of the neck. Left anterior chest wall pacemaker generator with right atrial and ventricular leads. Tortuous thoracic aorta. Wor sening airspace opacity throughout the left and mid and lower lung. No pleural effusion. IMPRESSION: COPD with worsening airspace disease left mid and lower lung. Correlate for pneumonia. [facility], , 02/06/2024 9:56 AM
[2024-02-06 10:00] LABS: NT-Pro-B-Type Natriuretic Pept 5400 pg/mL
[2024-02-06 10:01] LABS: Platelet Count 76 k/uL (150-450)
[2024-02-06] MEDS ORDERED: PNEUMONIA PROTOCOL UTILIZED 1 EACH MISC PO PRN (10:13)
[2024-02-06] MEDS: IPRATROPIUM-ALBUTEROL 3 ML NEB INHALATION STA (11:10)
[2024-02-06] MEDS ORDERED: ALBUTEROL NEBULIZED 2.5 MG/3 ML INHALATION PRN (12:19)
--- NOTE | 2024-02-06 12:27 | P.HPIM ---
History of Present Illness Patient pleasant 74-year-old male came in with complaints of shortness of breath cough hemoptysis that began about 2 weeks ago. Patient denied any significant orthopnea or paroxysmal nocturnal dyspnea patient does not use any oxygen at home presently requiring 2 L of oxygen patient had a chest x-ray which showed diffuse infiltrate bilaterally can be bilateral pneumonia or congestive heart failure obtaining procalcitonin level patient's BNP is 5700. Patient does have history of congestive heart failure chronic systolic function EF of around 30% along with hepatocellular carcinoma and cirrhosis. Patient clinically does not have any significant pedal edema does have minimally elevated JVD. Patient does have history of COPD with FEV1 of 59% does not use any oxygen at home does not have any wheezing at this time. Patient has history of sick sinus syndrome for which patient is on Eliquis rate control medications and recently had a dual- chamber pacemaker. Patient believes all his problems are since he received a pacemaker. REVIEW OF SYSTEMS: All other systems are negative except those mentioned in the HPI PHYSICAL EXAMINATION: GENERAL: The patient is alert and oriented x3, not in any acute distress. Well developed, well nourished. HEENT: Pupils are round and equally reacting to light. EOMI. No scleral icterus. No conjunctival pallor. Normocephalic, atraumatic. No pharyngeal erythema. No thyromegaly. CARDIOVASCULAR: S1 and S2 present. No murmurs, rubs, or gallops. PULMONARY: Chest is clear to auscultation, no wheezing or crackles. ABDOMEN: Soft, nontender, nondistended, normoactive bowel sounds. No palpable organomegaly. MUSCULOSKELETAL: No joint swelling or deformity. EXTREMITIES: No cyanosis, clubbing, or pedal edema. NEUROLOGICAL: Gross neurological examination did not reveal any focal deficits. SKIN: No rashes. Assessment and plan -Shortness of breath hemoptysis: Etiology of shortness of breath is not clear can be pneumonia cannot rule out and obtain procalcitonin level continue with antibiotics for now pulmonary will be consulted there is a possibility of congestive heart failure contributing to shortness of breath and hypoxemia patient is on 40 mg of Lasix he will be started on 40 mg of IV Lasix at this time. Hemoptysis can be secondary to bronchitis. 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 Hospitalized last week for CHF & Pneumonia. Irr. heart rate @ times. liver cancer History of Any Multi-Drug Resistant Organisms: None Reported Past Surgical History: Back Surgery, Heart Catheterization, Hernia Repair, Orthopedic Surgery, Pacemaker Additional Past Surgical History / Comment(s): liver ablation done at [place] for tx of hepatocellular carcinoma,hemorrhoids ,back surgery, cataract, skin cancer, inguinal hernia, abdominal hernia, left shoulder, right wrist, growth removed vocal cord, PAROTID GLAND REMOVED DUE TO CANCER. Past Anesthesia/Blood Transfusion Reactions: No Reported Reaction Additional Past Anesthesia/Blood Transfusion Reaction / Comment(s): no hx blood transfusion Past Psychological History: No Psychological Hx Reported Smoking Status: Former smoker Past Alcohol Use History: None Reported Past Drug Use History: None Reported - Past Family History Father Family Medical History: Cancer Medications and Allergies Home Medications Medication Instructions Recorded Confirmed Type amLODIPine [Norvasc] 10 mg PO DAILY 08/06/14 02/06/24 History Colchicine 0.6 mg PO DAILY 08/02/16 02/06/24 History hydrALAZINE HCL [Apresoline] 100 mg PO TID 06/08/22 02/06/24 History Tiotropium 2.5 Mcg/Puff [Spiriva 2 puff INHALATION RT-DAILY 01/14/23 02/06/24 History Respimat 2.5 Mcg] predniSONE 5 mg PO DAILY 01/14/23 02/06/24 History traZODone HCL [Desyrel] 50 mg PO HS 01/14/23 02/06/24 History Cholecalciferol [Vitamin D3 (25 25 mcg PO DAILY 02/11/23 02/06/24 History Mcg = 1000 Iu)] Multivit-Min/FA/Lycopen/Lutein 1 tab PO DAILY 02/11/23 02/06/24 History [Centrum Silver Tablet] Apixaban [Eliquis] 2.5 mg PO BID 03/07/23 02/06/24 History Albuterol Inhaler [Ventolin Hfa 2 puff INHALATION RT-Q6H PRN 06/30/23 02/06/24 History Inhaler] HYDROcodone/APAP 10-325MG [[place] 1 tab PO QID PRN 06/30/23 02/06/24 History 10-325] Pantoprazole Sodium [Protonix] 20 mg PO BID 06/30/23 02/06/24 History Furosemide [Lasix] 40 mg PO DAILY #30 tab 07/04/23 02/06/24 Rx Ipratropium-Albuterol Nebulize 3 ml INHALATION RT-QID #120 each 07/04/23 02/06/24 Rx [Duoneb 0.5 mg-3 mg/3 ml Soln] Fluticasone Propion/Salmeterol 1 puff INHALATION RT-BID 01/14/24 02/06/24 History [Wixela 500-50 Inhub] Metoprolol Succinate [Toprol XL] 50 mg PO DAILY #30 tab 01/21/24 02/06/24 Rx Ferrous Sulfate [Feosol] 325 mg PO DAILY 02/06/24 02/06/24 History Folic Acid 1 mg PO DAILY 02/06/24 02/06/24 History Naloxone HCl [Narcan] 4 mg NASAL DIRECTED PRN 02/06/24 02/06/24 History Nystatin [Nystatin Oral Susp] 500,000 unit PO QID 02/06/24 02/06/24 History Allergies Allergy/AdvReac Type Severity Reaction Status Date / Time allopurinol AdvReac Gout Verified 02/06/24 11:39 atenolol AdvReac Fatigue,Bra Verified 02/06/24 11:39 dycardia doxazosin AdvReac Delerium,Di Verified 02/06/24 11:39 zziness lisinopril AdvReac Cough Verified 02/06/24 11:39 metoprolol [From Lopressor] AdvReac Chest Pain Verified 02/06/24 11:39 omalizumab [From Xolair] AdvReac urticaria Verified 02/06/24 11:39 Physical Exam Vitals: Vital Signs Temp Pulse Resp BP Pulse Ox 02/06/24 11:21 56 L 02/06/24 11:10 60 02/06/24 08:50 97.6 F 61 18 141/61 93 L Intake and Output 02/05/24 02/06/24 02/06/24 22:59 06:59 14:59 Other: Weight 81.647 kg Results CBC & Chem 7: 02/06/24 09:19 02/06/24 09:19 Labs: Abnormal Lab Results - Last 24 Hours (Table) 02/06/24 02/06/24 02/06/24 Range/Units 09:19 09:19 09:19 WBC 3.4 L (3.8-10.6) k/uL RBC 3.64 L (4.30-5.90) m/uL Hgb 9.9 L (13.0-17.5) gm/dL Hct 30.0 L (39.0-53.0) % RDW 18.3 H (11.5-15.5) % Plt Count 76 L (150-450) k/uL Lymphocytes # 0.2 L (1.0-4.8) k/uL PT 13.0 H (10.0-12.5) sec INR 1.2 H (<1.2) APTT 36.1 H (22.0-30.0) sec Carbon Dioxide 21 L (22-30) mmol/L BUN 48 H (9-20) mg/dL Creatinine 1.93 H (0.66-1.25) mg/dL Glucose 103 H (74-99) mg/dL Total Bilirubin 1.8 H (0.2-1.3) mg/dL Troponin I (0.000-0.034) ng/mL 02/06/24 02/06/24 Range/Units 09:19 11:34 WBC (3.8-10.6) k/uL RBC (4.30-5.90) m/uL Hgb (13.0-17.5) gm/dL Hct (39.0-53.0) % RDW (11.5-15.5) % Plt Count (150-450) k/uL Lymphocytes # (1.0-4.8) k/uL PT (10.0-12.5) sec INR (<1.2) APTT (22.0-30.0) sec Carbon Dioxide (22-30) mmol/L BUN (9-20) mg/dL Creatinine (0.66-1.25) mg/dL Glucose (74-99) mg/dL Total Bilirubin (0.2-1.3) mg/dL Troponin I 0.055 H* 0.049 H* (0.000-0.034) ng/mL
[2024-02-06] MEDS: AZITHROMYCIN 500 MG in SODIUM CHLORIDE 0.9% 250 ML IVPB STA (12:55)
[2024-02-06] MEDS: NYSTATIN 100,000 UNIT/ML SUSP 500,000 UNIT/5 ML CUP PO SCH (12:59)
--- NOTE | 2024-02-06 14:34 | P.CRDCN ---
History of Present Illness History of present illness: HISTORY OF PRESENT ILLNESS: This is a 74-year-old male with a past medical history significant for paroxysmal atrial fibrillation, hypertension, valvular heart disease, normal coronary arteries, and chronic kidney disease. Patient follows in the office with Dr. Post. We have been asked to see the patient in consultation for chest pain. Patient examined at the bedside in the emergency room. Patient underwent dual-chamber pacemaker implantation with Dr. Francis on 01/20/2024. Patient states since having his pacemaker placed he has been feeling short of breath and having chest discomfort. He also reports feeling dizzy and lightheaded at home. He denies any episodes of syncope. He denies any weight gain or increased lower extremity edema. DIAGNOSTICS: - EKG reveals atrial paced rhythm with PVCs - Chest xray COPD with worsening airspace disease left mid and lower lung. Correlate for pneumonia. - Laboratory data: WBC 3.4. Hemoglobin 9.9. Platelet count 76. Sodium 137. Potassium 3.5. BUN 48. Creatinine 1.93. Troponin 0.055. 0.049. proBNP 5400. - Current home cardiac medications include Eliquis 2.5 mg twice a day, Lasix 40 mg daily, metoprolol succinate 50 mg daily, amiodarone 10 mg daily, hydralazine 100 mg 3 times daily - Most recent echocardiogram obtained in the office in November 2023 revealed ejection fraction 50 to 55%, severe LVH, moderate to severe aortic regurgitation, moderate aortic stenosis, mild mitral regurgitation, mild tricuspid regurgitation. Aortic valve peak gradient 62 mmHg, mean gradient 35 mmHg valve area 1.25 cm -MAHESH performed in March 2023 revealed bicuspid aortic valve with moderate aortic stenosis, moderate aortic insufficiency, mild mitral regurgitation, mild tricuspid regurgitation, no evidence of PFO. - Cardiac catheterization history: June 2022 revealing relatively normal coronary arteries other than mid LAD 30% stenosis REVIEW OF SYSTEMS: At the time of my exam: CONSTITUTIONAL: Denies fever or chills. HEENT: Denies blurred vision, vision changes, or eye pain. Denies hemoptysis CARDIOVASCULAR: Denies chest pain. Denies orthopnea. Denies PND. Denies palpitations RESPIRATORY: Denies shortness of breath. GASTROINTESTINAL: Denies abdominal pain. Denies nausea or vomiting. HEMATOLOGIC: Denies bleeding disorders. GENITOURINARY: Denies any blood in urine. SKIN: Denies pruitis. Denies rash. PHYSICAL EXAM: VITAL SIGNS: Reviewed. GENERAL: Well-developed in no acute distress. HEENT: Head is normocephalic. Pupils are equal, round. Sclerae anicteric. Mucous membranes of the mouth are moist. Neck supple. No JVD or thyromegaly LUNGS: Respirations even and unlabored. Lungs essentially clear to auscultation bilaterally. HEART: Regular rate and rhythm. S1 and S2 heard. Systolic murmur noted at the apex and base. ABDOMEN: Soft. Nondistended. Nontender. EXTREMITIES: Normal range of motion. No clubbing or cyanosis. Peripheral pulses intact. No lower extremity edema NEUROLOGIC: Awake and alert. Oriented x 3. ASSESSMENT: Shortness of breath and chest discomfort Possible pneumonia, per chest x-ray Tachybradycardia syndrome, status post dual-chamber pacemaker implantation, [employer], 01/20/2024 Valvular heart disease including moderate to severe aortic regurgitation and moderate aortic stenosis Elevated troponins, flat, likely type II CT, no evidence of ACS Severe LVH Relatively normal coronary arteries other than mid LAD 30% stenosis, per cath 06/2022 Paroxysmal atrial fibrillation Hypertension Chronic kidney disease PLAN: Obtain 2D echo to assess cardiac structure and function. Assess for pericardial effusion and assess valvular disease. Suspect symptoms may be secondary to his valvular disease. Resume home cardiac medications Continue anticoagulation with Eliquis Interrogate pacemaker ([employer]) Continue telemetry monitoring Further recommendations pending patient course Nurse practitioner note has been reviewed by physician. Signing provider agrees with the documented findings, assessment, and plan of care documented by CATALYST OPERATOR GASOLINE as a scribe. 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 Hospitalized last week for CHF & Pneumonia. Irr. heart rate @ times. liver cancer History of Any Multi-Drug Resistant Organisms: None Reported Past Surgical History: Back Surgery, Heart Catheterization, Hernia Repair, Orthopedic Surgery, Pacemaker Additional Past Surgical History / Comment(s): liver ablation done at [place] for tx of hepatocellular carcinoma,hemorrhoids ,back surgery, cataract, skin cancer, inguinal hernia, abdominal hernia, left shoulder, right wrist, growth removed vocal cord, PAROTID GLAND REMOVED DUE TO CANCER. Past Anesthesia/Blood Transfusion Reactions: No Reported Reaction Additional Past Anesthesia/Blood Transfusion Reaction / Comment(s): no hx blood transfusion Past Psychological History: No Psychological Hx Reported Smoking Status: Former smoker Past Alcohol Use History: None Reported Past Drug Use History: None Reported - Past Family History Father Family Medical History: Cancer Medications and Allergies Home Medications Medication Instructions Recorded Confirmed Type amLODIPine [Norvasc] 10 mg PO DAILY 08/06/14 02/06/24 History Colchicine 0.6 mg PO DAILY 08/02/16 02/06/24 History hydrALAZINE HCL [Apresoline] 100 mg PO TID 06/08/22 02/06/24 History Tiotropium 2.5 Mcg/Puff [Spiriva 2 puff INHALATION RT-DAILY 01/14/23 02/06/24 History Respimat 2.5 Mcg] predniSONE 5 mg PO DAILY 01/14/23 02/06/24 History traZODone HCL [Desyrel] 50 mg PO HS 01/14/23 02/06/24 History Cholecalciferol [Vitamin D3 (25 25 mcg PO DAILY 02/11/23 02/06/24 History Mcg = 1000 Iu)] Multivit-Min/FA/Lycopen/Lutein 1 tab PO DAILY 02/11/23 02/06/24 History [Centrum Silver Tablet] Apixaban [Eliquis] 2.5 mg PO BID 03/07/23 02/06/24 History Albuterol Inhaler [Ventolin Hfa 2 puff INHALATION RT-Q6H PRN 06/30/23 02/06/24 History Inhaler] HYDROcodone/APAP 10-325MG [[place] 1 tab PO QID PRN 06/30/23 02/06/24 History 10-325] Pantoprazole Sodium [Protonix] 20 mg PO BID 06/30/23 02/06/24 History Furosemide [Lasix] 40 mg PO DAILY #30 tab 07/04/23 02/06/24 Rx Ipratropium-Albuterol Nebulize 3 ml INHALATION RT-QID #120 each 07/04/23 02/06/24 Rx [Duoneb 0.5 mg-3 mg/3 ml Soln] Fluticasone Propion/Salmeterol 1 puff INHALATION RT-BID 01/14/24 02/06/24 History [Wixela 500-50 Inhub] Metoprolol Succinate [Toprol XL] 50 mg PO DAILY #30 tab 01/21/24 02/06/24 Rx Ferrous Sulfate [Feosol] 325 mg PO DAILY 02/06/24 02/06/24 History Folic Acid 1 mg PO DAILY 02/06/24 02/06/24 History Naloxone HCl [Narcan] 4 mg NASAL DIRECTED PRN 02/06/24 02/06/24 History Nystatin [Nystatin Oral Susp] 500,000 unit PO QID 02/06/24 02/06/24 History Allergies Allergy/AdvReac Type Severity Reaction Status Date / Time allopurinol AdvReac Gout Verified 02/06/24 11:39 atenolol AdvReac Fatigue,Bra Verified 02/06/24 11:39 dycardia doxazosin AdvReac Delerium,Di Verified 02/06/24 11:39 zziness lisinopril AdvReac Cough Verified 02/06/24 11:39 metoprolol [From Lopressor] AdvReac Chest Pain Verified 02/06/24 11:39 omalizumab [From Xolair] AdvReac urticaria Verified 02/06/24 11:39 Physical Exam Vitals: Vital Signs Temp Pulse Resp BP Pulse Ox 02/06/24 11:21 56 L 02/06/24 11:10 60 02/06/24 08:50 97.6 F 61 18 141/61 93 L Intake and Output 02/05/24 02/06/24 02/06/24 22:59 06:59 14:59 Other: Weight 81.647 kg Results 02/06/24 09:19 02/06/24 09:19 Cardiac Enzymes 02/06/24 02/06/24 02/06/24 Range/Units 09:19 09:19 11:34 AST 47 (17-59) U/L Troponin I 0.055 H* 0.049 H* (0.000-0.034) ng/mL Coagulation 02/06/24 Range/Units 09:19 PT 13.0 H (10.0-12.5) sec APTT 36.1 H (22.0-30.0) sec CBC 02/06/24 Range/Units 09:19 WBC 3.4 L (3.8-10.6) k/uL RBC 3.64 L (4.30-5.90) m/uL Hgb 9.9 L (13.0-17.5) gm/dL Hct 30.0 L (39.0-53.0) % Plt Count 76 L (150-450) k/uL Comprehensive Metabolic Panel 02/06/24 Range/Units 09:19 Sodium 137 (137-145) mmol/L Potassium 3.5 (3.5-5.1) mmol/L Chloride 107 (98-107) mmol/L Carbon Dioxide 21 L (22-30) mmol/L BUN 48 H (9-20) mg/dL Creatinine 1.93 H (0.66-1.25) mg/dL Glucose 103 H (74-99) mg/dL Calcium 8.7 (8.4-10.2) mg/dL AST 47 (17-59) U/L ALT 22 (4-49) U/L Alkaline Phosphatase 85 (38-126) U/L Total Protein 6.7 (6.3-8.2) g/dL Albumin 3.7 (3.5-5.0) g/dL Current Medications Generic Name Dose Route Start Last Admin Trade Name Freq PRN Reason Stop Dose Admin Hydrocodone Bitart/Acetaminophen 1 each 02/06/24 12:19 Hydrocodone/Apap 10-325mg 1 Each Tab PO QID PRN Pain Albuterol Sulfate 2.5 mg 02/06/24 12:19 Albuterol Nebulized 2.5 Mg/3 Ml INHALATION RT-Q6H PRN Shortness Of Breath Albuterol/Ipratropium 3 ml 02/06/24 10:13 Ipratropium-Albuterol 3 Ml Neb INHALATION RT-Q4H PRN shortness of breath Apixaban 2.5 mg 02/06/24 21:00 Apixaban 2.5 Mg Tablet PO BID [facility] Protocol Budesonide/Formoterol Fumarate 2 puff 02/06/24 20:00 Symbicort 160-4.5 Mcg Inhaler INHALATION RT-BID [facility] Folic Acid 1 mg 02/07/24 09:00 Folic Acid 1 Mg Tab PO DAILY [facility] Furosemide 40 mg 02/06/24 12:30 Furosemide 10 Mg/Ml 4 Ml Vial IV DAILY [facility] Ceftriaxone Sodium 2 gm/ 50 mls @ 100 mls/hr 02/07/24 09:00 Sodium Chloride IVPB 02/10/24 09:29 Q24HR [facility] Protocol Azithromycin 500 mg/ Sodium 250 mls @ 250 mls/hr 02/07/24 09:00 Chloride IVPB 02/08/24 09:59 DAILY [facility] Protocol Ipratropium [place] 0.5 mg 02/07/24 08:00 Ipratropium 0.5 Mg/2.5 Ml Nebu INHALATION RT-QID [facility] Metoprolol Succinate 50 mg 02/07/24 09:00 Metoprolol Succinate (Er) 50 Mg Tab.Er.24h PO DAILY [facility] Miscellaneous Information 1 each 02/06/24 10:13 Pneumonia Protocol Utilized 1 Each Misc PO ONCE PRN Per Protocol Nystatin 500,000 unit 02/06/24 13:00 02/06/24 12:59 Nystatin 100,000 Unit/Ml Susp 500,000 Unit/5 Ml Cup PO 500,000 unit QID [facility] Administration Protocol Pantoprazole Sodium 40 mg 02/06/24 21:00 Pantoprazole 40 Mg Tablet PO BID [facility] Prednisone 5 mg 02/07/24 09:00 Prednisone 5 Mg Tab PO DAILY [facility] Trazodone HCl 50 mg 02/06/24 21:00 Trazodone Hcl 50 Mg Tab PO HS [facility] Intake and Output 02/05/24 02/06/24 02/06/24 22:59 06:59 14:59 Other: Weight 81.647 kg Patient Weight 02/07/24 06:59 Weight 81.647 kg 02/06/24 09:19 02/06/24 09:19
[2024-02-06] MEDS: FUROSEMIDE 10 MG/ML 4 ML VIAL IV SCH (15:33)
[2024-02-06] MEDS: METOPROLOL SUCCINATE (ER) 50 MG TAB.ER.24H PO SCH (15:34)
--- NOTE | 2024-02-06 15:47 | P.CNPUL ---
History of Present Illness Consult date: 02/06/24 Requesting physician: Mariza Winchester Reason for consult: dyspnea, abnormal CXR/CT Chief complaint: Chest pain, hemoptysis History of present illness: This is a 71 male patient with a known history of chronic obstructive pulmonary disease on home oxygen, former smoker, hypertension, hyperlipidemia, hepatocellular carcinoma with previous liver ablation, hepatitis C, parotid gland cancer status post radiation, multi lobar pneumonia. He presented here to the emergency room morning with a 2 week history of shortness of breath and hemoptysis of bright red blood. He had undergone a dual-chamber pacemaker insertion 2 weeks ago. He has been having chest pain, and shortness of breath since that time. Chest x-ray reveals evidence of COPD with worsening airspace disease in the left mid and lower lung. Hyperinflation. White count 3.4. Hemoglobin 9.9. Platelets 76,000. INR 1.2. Sodium 137. Potassium 3.5. Bicarb 21. BUN 48. Creatinine 1.93. Glucose 103. Troponin 0.055, 0.049. proBNP 5400. He is seen today in consultation in the emergency department. He is currently sitting up in a stretcher. Awake and alert in no acute distress. He is maintaining O2 saturations in the 90s on 2 L/min per nasal cannula. He does have small amount of bright red blood noted on tissue. He is afebrile. Hemodynamically stable. Review of Systems REVIEW OF SYSTEMS: CONSTITUTIONAL: Denies any recent significant weight loss or weight gain. EYES: Denies change in vision. EARS, NOSE, MOUTH, THROAT: Denies headaches, denies sore throat. CARDIOVASCULAR: Positive for chest pain, no palpitations or syncopal episodes. RESPIRATORY: Positive for shortness of breath, cough, congestion and hemoptysis. GASTROINTESTINAL: Denies change in appetite, denies abdominal pain GENITOURINARY: Denies hematuria, denies infections. MUSKULOSKELETAL: Denies pain, denies swelling. INTEGUMENTARY: Denies rash, denies eczema. NEUROLOGICAL: Denies recent memory loss, no recent seizure activity. PSYCHIATRIC: Denies anxiety, denies depression. HEMATOLOGIC/LYMPHATIC: Denies anemia, denies enlarged lymph nodes. 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 Hospitalized last week for CHF & Pneumonia. Irr. heart rate @ times. liver cancer History of Any Multi-Drug Resistant Organisms: None Reported Past Surgical History: Back Surgery, Heart Catheterization, Hernia Repair, Orthopedic Surgery, Pacemaker Additional Past Surgical History / Comment(s): liver ablation done at [place] for tx of hepatocellular carcinoma,hemorrhoids ,back surgery, cataract, skin cancer, inguinal hernia, abdominal hernia, left shoulder, right wrist, growth removed vocal cord, PAROTID GLAND REMOVED DUE TO CANCER. Past Anesthesia/Blood Transfusion Reactions: No Reported Reaction Additional Past Anesthesia/Blood Transfusion Reaction / Comment(s): no hx blood transfusion Past Psychological History: No Psychological Hx Reported Smoking Status: Former smoker Past Alcohol Use History: None Reported Past Drug Use History: None Reported - Past Family History Father Family Medical History: Cancer Medications and Allergies Home Medications Medication Instructions Recorded Confirmed Type amLODIPine [Norvasc] 10 mg PO DAILY 08/06/14 02/06/24 History Colchicine 0.6 mg PO DAILY 08/02/16 02/06/24 History hydrALAZINE HCL [Apresoline] 100 mg PO TID 06/08/22 02/06/24 History Tiotropium 2.5 Mcg/Puff [Spiriva 2 puff INHALATION RT-DAILY 01/14/23 02/06/24 History Respimat 2.5 Mcg] predniSONE 5 mg PO DAILY 01/14/23 02/06/24 History traZODone HCL [Desyrel] 50 mg PO HS 01/14/23 02/06/24 History Cholecalciferol [Vitamin D3 (25 25 mcg PO DAILY 02/11/23 02/06/24 History Mcg = 1000 Iu)] Multivit-Min/FA/Lycopen/Lutein 1 tab PO DAILY 02/11/23 02/06/24 History [Centrum Silver Tablet] Apixaban [Eliquis] 2.5 mg PO BID 03/07/23 02/06/24 History Albuterol Inhaler [Ventolin Hfa 2 puff INHALATION RT-Q6H PRN 06/30/23 02/06/24 History Inhaler] HYDROcodone/APAP 10-325MG [[place] 1 tab PO QID PRN 06/30/23 02/06/24 History 10-325] Pantoprazole Sodium [Protonix] 20 mg PO BID 06/30/23 02/06/24 History Furosemide [Lasix] 40 mg PO DAILY #30 tab 07/04/23 02/06/24 Rx Ipratropium-Albuterol Nebulize 3 ml INHALATION RT-QID #120 each 07/04/23 02/06/24 Rx [Duoneb 0.5 mg-3 mg/3 ml Soln] Fluticasone Propion/Salmeterol 1 puff INHALATION RT-BID 01/14/24 02/06/24 History [Wixela 500-50 Inhub] Metoprolol Succinate [Toprol XL] 50 mg PO DAILY #30 tab 01/21/24 02/06/24 Rx Ferrous Sulfate [Feosol] 325 mg PO DAILY 02/06/24 02/06/24 History Folic Acid 1 mg PO DAILY 02/06/24 02/06/24 History Naloxone HCl [Narcan] 4 mg NASAL DIRECTED PRN 02/06/24 02/06/24 History Nystatin [Nystatin Oral Susp] 500,000 unit PO QID 02/06/24 02/06/24 History Allergies Allergy/AdvReac Type Severity Reaction Status Date / Time allopurinol AdvReac Gout Verified 02/06/24 11:39 atenolol AdvReac Fatigue,Bra Verified 02/06/24 11:39 dycardia doxazosin AdvReac Delerium,Di Verified 02/06/24 11:39 zziness lisinopril AdvReac Cough Verified 02/06/24 11:39 metoprolol [From Lopressor] AdvReac Chest Pain Verified 02/06/24 11:39 omalizumab [From Xolair] AdvReac urticaria Verified 02/06/24 11:39 Physical Exam Osteopathic Statement: *. No significant issues noted on an osteopathic structu ral exam other than those noted in the History and Physical/Consult. Vitals: Vital Signs Temp Pulse Resp BP Pulse Ox 02/06/24 11:21 56 L 02/06/24 11:10 60 02/06/24 08:50 97.6 F 61 18 141/61 93 L Intake and Output 02/06/24 02/06/24 02/06/24 06:59 14:59 22:59 Other: Weight 81.647 kg GENERAL EXAM: Alert, 74-year-old male, on 2 L nasal cannula, fairly comfortable in no apparent distress. HEAD: Normocephalic. EYES: Normal reaction of pupils, equal size. NOSE: Clear with pink turbinates. THROAT: No erythema or exudates. NECK: No masses, no JVD. CHEST: No chest wall deformity. LUNGS: Equal air entry with bilateral scattered rhonchi. CVS: S1 and S2 normal with no audible murmur, regular rhythm. ABDOMEN: No hepatosplenomegaly, normal bowel sounds, no guarding or rigidity. SPINE: No scoliosis or deformity SKIN: No rashes CENTRAL NERVOUS SYSTEM: No focal deficits, tone is normal in all 4 extremities. EXTREMITIES: There is no peripheral edema. No clubbing, no cyanosis. Peripheral pulses are intact. Results - Laboratory Findings CBC and BMP: 02/06/24 09:19 02/06/24 09:19 PT/INR, D-dimer PT 13.0 sec (10.0-12.5) H 02/06/24 09:19 INR 1.2 (<1.2) H 02/06/24 09:19 Abnormal lab findings: Abnormal Labs 02/06/24 02/06/24 02/06/24 09:19 09:19 09:19 WBC 3.4 L RBC 3.64 L Hgb 9.9 L Hct 30.0 L RDW 18.3 H Plt Count 76 L Lymphocytes # 0.2 L PT 13.0 H INR 1.2 H APTT 36.1 H Carbon Dioxide 21 L BUN 48 H Creatinine 1.93 H Glucose 103 H Total Bilirubin 1.8 H Troponin I 02/06/24 02/06/24 09:19 11:34 WBC RBC Hgb Hct RDW Plt Count Lymphocytes # PT INR APTT Carbon Dioxide BUN Creatinine Glucose Total Bilirubin Troponin I 0.055 H* 0.049 H* - Diagnostic Findings Chest x-ray: image reviewed Assessment and Plan Assessment: Chest pain and hemoptysis suspect secondary to multilobar pneumonia. Procalcitonin pending Acute on chronic hypoxemic respiratory failure secondary to above Recent permanent pacemaker implantation approximately 2 weeks ago Atrial fibrillation, anticoagulated with Eliquis Chronic obstructive pulmonary disease, has home oxygen and maintained on prednisone 5 mg daily, FEV1 value 59% of predicted History of liver cirrhosis and previous history of hepatitis C and hepatocellular carcinoma Pancytopenia likely related to chronic liver disease Systolic heart failure with an ejection fraction of 35% and impaired LV function Moderate aortic stenosis Chronic stage III kidney disease Hypertension Hyperlipidemia Chronic back pain related to herniated disc History of parotid gland cancer postradiation therapy Plan: The patient was seen and evaluated Chest x-ray, labs and medications reviewed Procalcitonin pending Continue ceftriaxone and azithromycin Continue Symbicort and albuterol Currently on IV diuretics Hold Eliquis Monitor hemoptysis We will continue to follow and make further recommendations based on his clinical status I have personally seen and examined the patient, performed the documentation and the assessment and plan as written. Number of minutes spent on the visit: 20 Dictation was produced using [employer] dictation software. Please excuse any grammatical, word or spelling errors.
[2024-02-06] MEDS: IPRATROPIUM-ALBUTEROL 3 ML NEB INHALATION PRN (15:50)
[2024-02-06] MEDS: SYMBICORT 160-4.5 MCG INHALER INHALATION SCH (19:37)
[2024-02-06] MEDS: IPRATROPIUM-ALBUTEROL 3 ML NEB INHALATION SCH (19:37)
[2024-02-06] MEDS: traZODone HCL 50 MG TAB PO SCH (20:19)
[2024-02-06] MEDS: PANTOPRAZOLE 40 MG TABLET PO SCH (20:19)
[2024-02-06] MEDS ORDERED: APIXABAN 2.5 MG TABLET PO SCH (21:00)
[2024-02-07 00:08] VITALS: RESP 18
[2024-02-07] MEDS ORDERED: IPRATROPIUM 0.5 MG/2.5 ML NEBU INHALATION SCH (08:00)
[2024-02-07] MEDS: METOPROLOL SUCCINATE (ER) 50 MG TAB.ER.24H PO SCH (08:23)
[2024-02-07 08:58] VITALS: TEMP 98.6
[2024-02-07] MEDS: FOLIC ACID 1 MG TAB PO SCH (09:07)
[2024-02-07] MEDS: predniSONE 5 MG TAB PO SCH (09:07)
[2024-02-07] MEDS: AZITHROMYCIN 500 MG in SODIUM CHLORIDE 0.9% 250 ML IVPB SCH (09:07)
[2024-02-07] MEDS: HYDROcodone/APAP 10-325MG 1 EACH TAB PO PRN (09:07)
--- NOTE | 2024-02-07 11:16 | CA ---
Transthoracic Echo Report Name: Chaitanya Morales Age: 74 Gender: M : 1950 Exam Date: 02/06/2024 14:28 Exam Location: [place] [facility] Ht (in): 70 Wt (lb): 180 Ordering Physician: Deepthi Trevizo Attending/Referring Phys: [id number], Joseline Regional Project Manager Ban Pineda RDCS Procedure CPT: Indications: SOB, CP, valvular heart disease Cardiac Hx: Technical Quality: Fair Contrast 1: Total Dose (mL): Contrast 2: Total Dose (mL): MEASUREMENTS (Male / Female) Normal Values 2D ECHO LV Diastolic Diameter PLAX 5.2 cm 4.2 - 5.9 / 3.9 - 5.3 cm LV Systolic Diameter PLAX 3.6 cm IVS Diastolic Thickness 1.8 cm 0.6 - 1.0 / 0.6 - 0.9 cm LVPW Diastolic Thickness 2.1 cm 0.6 - 1.0 / 0.6 - 0.9 cm LV Relative Wall Thickness 0.8 RV Internal Dim ED PLAX 4.9 cm LVOT Diameter 2.2 cm LA Volume 117.2 cm??? 18 - 58 / 22 - 52 cm??? LA Volume Index 58.1 cm???/m??? 16 - 28 cm???/m??? M-MODE Aortic Root Diameter MM 4.2 cm LA Systolic Diameter MM 6.2 cm LA Ao Ratio MM 1.5 AV Cusp Separation MM 1.9 cm DOPPLER AV Peak Velocity 336.5 cm/s AV Peak Gradient 45.3 mmHg AV Mean Velocity 245.4 cm/s AV Mean Gradient 25.9 mmHg AV Velocity Time Integral 88.7 cm AI Peak Velocity 338.4 cm/s AI Peak Gradient 45.8 mmHg AI Pressure Half Time 831.0 ms LVOT Peak Velocity 90.6 cm/s LVOT Peak Gradient 3.3 mmHg LVOT Velocity Time Integral 26.1 cm LVOT Stroke Volume 99.7 cm??? LVOT Stroke Volume Index 49.9 ml/m??? LVOT Cardiac Index 3654.2 cm???/min???m??? AV Area Cont Eq vti 1.1 cm??? AV Area Cont Eq pk 1.0 cm??? MV Area PHT 1.9 cm??? Mitral E Point Velocity 83.0 cm/s Mitral A Point Velocity 129.9 cm/s Mitral E to A Ratio 0.6 MV Deceleration Time 406.5 ms MV E' Velocity 4.1 cm/s Mitral E to MV E' Ratio 20.1 FINDINGS Left Ventricle Severely increased left ventricular wall thickness. Left ventricular cavity size normal. Normal left ventricular systolic function with no obvious regional wall motion abnormalities. Left ventricular ejection fraction is estimated at 50-55 %. Grade 2 diastolic dysfunction. Right Ventricle Normal right ventricular size and function. Right Atrium Normal right atrial size. Catheter/pacemaker wire in the right atrial cavity. Left Atrium Severely increased left atrial volume. Moderately increased left atrial area. Mitral Valve Structurally normal mitral valve. Mitral valve thickened. Mild mitral annular calcification. Moderate mitral regurgitation. Aortic Valve [id number] aortic stenosis with a peak gradient of 45 mmHg and a mean gradient of 26 mmHg. [id number] aortic regurgitation. Eccentric aortic regurgitation jet directed at the mitral valve. Tricuspid Valve Structurally normal tricuspid valve. Mild tricuspid regurgitation. Pulmonic Valve Structurally normal pulmonic valve. Pericardium No pericardial effusion. Aorta Normal size aortic root and proximal ascending aorta. CONCLUSIONS Normal LV function Mild to moderate aortic stenosis with mild to moderate aortic regurgitation Moderate mitral regurgitation Previewed by: Dr. Len Mckeon MD (Electronically Signed) Final Date: 07 February 2024 11:16
[2024-02-07] MEDS: FUROSEMIDE 40 MG TAB PO SCH (11:32)
--- NOTE | 2024-02-07 11:35 | XR ---
EXAMINATION TYPE: XR chest 2V DATE OF EXAM: 02/07/2024 11:11 AM COMPARISON: 02/06/2024 CLINICAL INDICATION: Male, 74 years old with history of pneumonia, , TECHNIQUE: PA and lateral views FINDINGS: Heart upper limits of normal in size. Tortuous/ectatic thoracic aorta. Left anterior chest wall pacem jan generator with right atrial and right ventricular leads. Hyperinflation. Prominent patchy opacit y throughout the left mid and lower lung persists. There may be minimal improvement at the left midlu ng level. Large surgical staple left humeral head. Surgical clips right base of the neck. IMPRESSION: COPD and continued airspace disease left mid and lower lung. Possible minimal improvement at the midl mili level. [facility], , 02/07/2024 11:33 AM
[2024-02-07 11:39] VITALS: BP 138/67
--- NOTE | 2024-02-07 13:07 | P.PN ---
Subjective HISTORY OF PRESENT ILLNESS: This is a 74-year-old male with a past medical history significant for paroxysmal atrial fibrillation, hypertension, valvular heart disease, normal coronary arteries, and chronic kidney disease. Patient follows in the office with Dr. Post. We have been asked to see the patient in consultation for chest pain. Patient examined at the bedside in the emergency room. Patient underwent dual-chamber pacemaker implantation with Dr. Francis on 01/20/2024. Patient states since having his pacemaker placed he has been feeling short of breath and having chest discomfort. He also reports feeling dizzy and lightheaded at home. He denies any episodes of syncope. He denies any weight gain or increased lower extremity edema. DIAGNOSTICS: - EKG reveals atrial paced rhythm with PVCs - Chest xray COPD with worsening airspace disease left mid and lower lung. Correlate for pneumonia. - Laboratory data: WBC 3.4. Hemoglobin 9.9. Platelet count 76. Sodium 137. Potassium 3.5. BUN 48. Creatinine 1.93. Troponin 0.055. 0.049. proBNP 5400. - Current home cardiac medications include Eliquis 2.5 mg twice a day, Lasix 40 mg daily, metoprolol succinate 50 mg daily, amiodarone 10 mg daily, hydralazine 100 mg 3 times daily - Most recent echocardiogram obtained in the office in November 2023 revealed ejection fraction 50 to 55%, severe LVH, moderate to severe aortic regurgitation, moderate aortic stenosis, mild mitral regurgitation, mild tricuspid regurgitation. Aortic valve peak gradient 62 mmHg, mean gradient 35 mmHg valve area 1.25 cm -MAHESH performed in March 2023 revealed bicuspid aortic valve with moderate aortic stenosis, moderate aortic insufficiency, mild mitral regurgitation, mild tricuspid regurgitation, no evidence of PFO. - Cardiac catheterization history: June 2022 revealing relatively normal coronary arteries other than mid LAD 30% stenosis 02/07/2024 Patient examined this morning at the bedside. Patient states he is feeling a little bit better compared to yesterday. He states he has some chest pains that come and go but no discomfort at the time of examination. Pacemaker was in terrogated with no arrhythmias noted. RV pacing 0%. Echocardiogram completed revealing ejection fraction 50 to 55%, mild to moderate aortic stenosis, mild to moderate aortic insufficiency, and moderate MR PHYSICAL EXAM: VITAL SIGNS: Reviewed. GENERAL: Well-developed in no acute distress. HEENT: Head is normocephalic. Pupils are equal, round. Sclerae anicteric. Mucous membranes of the mouth are moist. Neck supple. No JVD or thyromegaly LUNGS: Respirations even and unlabored. Lungs essentially clear to auscultation bilaterally. HEART: Regular rate and rhythm. S1 and S2 heard. Systolic murmur noted at the apex and base. ABDOMEN: Soft. Nondistended. Nontender. EXTREMITIES: Normal range of motion. No clubbing or cyanosis. Peripheral pulses intact. No lower extremity edema NEUROLOGIC: Awake and alert. Oriented x 3. 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 Signing provider agrees with the documented findings, assessment, and plan of care documented by [employer] ROOM ATTENDANT as a scribe. Objective - Vital Signs Vital signs: Vital Signs Temp 98.6 F 02/07/24 08:00 Pulse 56 L 02/07/24 11:40 Resp 18 02/07/24 11:35 BP 138/67 02/07/24 11:35 Pulse Ox 95 02/07/24 11:35 FiO2 Intake & Output 02/06/24 02/07/24 02/07/24 18:59 06:59 18:59 Intake Total 120 236 Balance 120 236 Weight 81.647 kg 81.6 kg Intake: Oral 120 236 Other: Voiding Method Toilet # Voids 1 - Labs CBC & Chem 7: 02/06/24 09:19 02/06/24 09:19 Labs: Abnormal Lab Results - Last 24 Hours (Table) 02/06/24 Range/Units 14:16 Troponin I 0.039 H* (0.000-0.034) ng/mL
--- NOTE | 2024-02-07 13:24 | P.PN ---
Subjective Progress Note Date: 02/07/24 Principal diagnosis: Shortness of breath/hemoptysis. 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 He presented here to the emergency room morning with a 2 week history of shortness of breath and hemoptysis of bright red blood. He had undergone a dual-chamber pacemaker insertion 2 weeks ago. He has been having chest pain, and shortness of breath since that time. Chest x-ray reveals evidence of COPD with worsening airspace disease in the left mid and lower lung. Hyperinflation. White count 3.4. Hemoglobin 9.9. Platelets 76,000. INR 1.2. Sodium 137. Potassium 3.5. Bicarb 21. BUN 48. Creatinine 1.93. Glucose 103. Troponin 0.055, 0.049. proBNP 5400. He is seen today in consultation in the emergency department. He is currently sitting up in a stretcher. Awake and alert in no acute distress. He is maintaining O2 saturations in the 90s on 2 L/min per nasal cannula. He does have small amount of bright red blood noted on tissue. He is afebrile. Hemodynamically stable. Progress note dated February 07, 2024. 74-year-old male that was seen yesterday in the emergency department. He has a history of COPD, oxygen dependent. In addition, he has a history of hypertension, hyperlipidemia, liver cancer, hepatitis C, parotid gland cancer, and pneumonia. The patient is seen today in room 365. He continues on oxygen at 2 L. The patient is getting saline at 15 cc an hour. Yesterday, the patient was complaining of significant bright red hemoptysis. It appears that that has settled down a bit. No new labs today. Chest x-ray today shows COPD, and airspace disease, in the left mid and left lower lung wisdom. Objective - Vital Signs Vital signs: Vital Signs Temp 98.6 F 02/07/24 08:00 Pulse 56 L 02/07/24 11:40 Resp 18 02/07/24 11:35 BP 138/67 02/07/24 11:35 Pulse Ox 95 02/07/24 11:35 FiO2 Intake & Output 1002/07/24 02/07/24 18:59 06:59 18:59 Intake Total 120 236 Balance 120 236 Weight 81.647 kg 81.6 kg Intake: Oral 120 236 Other: Voiding Method Toilet # Voids 1 - Exam No acute distress, oriented 3. No respiratory distress. Currently on 2 L. HEENT examination is grossly unremarkable. Mucous membranes are moist. No oral lesions. Neck supple. Full range of motion. No adenopathy thyromegaly or neck vein distention. Cardiovascular examination reveals regular rhythm rate. S1-S2 normal. No S3 or S4. No discernible murmur noted. Lungs reveal coarse bilateral breath sounds. Cough is wet and congested sounding. Minimal wheezes. No crackles. Breath sounds equal bilaterally. Abdomen soft bowel sounds are heard. No masses or tenderness. Extremities are intact. No cyanosis clubbing or edema. Skin is without rash or lesion. Neurologic examination is brief but nonfocal. - Labs CBC & Chem 7: 02/06/24 09:19 02/06/24 09:19 Labs: Abnormal Lab Results - Last 24 Hours (Table) 02/06/24 Range/Units 14:16 Troponin I 0.039 H* (0.000-0.034) ng/mL Assessment and Plan Assessment: Chest pain and hemoptysis suspect secondary to multilobar pneumonia. Acute on chronic hypoxemic respiratory failure secondary to above. Recent permanent pacemaker implantation approximately 2 weeks ago Atrial fibrillation, anticoagulated with Eliquis. Chronic obstructive pulmonary disease, severe with an FEV1 that is 59% of predicted. History of liver cirrhosis and previous history of hepatitis C and hepatocellular carcinoma. Pancytopenia likely related to chronic liver disease. Systolic heart failure with an ejection fraction of 35% and impaired LV function. Moderate aortic stenosis. Chronic stage III kidney disease. Hypertension. Hyperlipidemia. Chronic back pain related to herniated disc. History of parotid gland cancer postradiation therapy. Plan: Plan dated February 07, 2024. The patient is seen today in room 365. The patient continues on saline at 15 cc an hour, and nasal O2 at 2 L. The patient is still coughing, with a wet congested cough, but does not appear to be coughing up blood anymore. Labs, x- rays, medications are reviewed. We will continue to follow. Awaiting procal citonin level. Additional recommendations and suggestions are forthcoming. Prognosis is guarded. Time with Patient: Less than 30
[2024-02-07 13:38] VITALS: PULSE 50
--- NOTE | 2024-02-08 10:11 | P.DS ---
Providers Date of admission: 02/06/24 10:10 Expected date of discharge: 02/07/24 Attending physician: Hillary Franks Consults: 02/06/24 10:20 Consult Physician Routine Consulting Provider: Marlo Diggs Consult Reason/Comments: COPD, pneumonia Do you want consulting provider notified?: Yes 02/06/24 10:21 Consult Physician Urgent Consulting Provider: Luis Holly Consult Reason/Comments: chest pain Do you want consulting provider notified?: Yes Primary care physician: Drew Medrano [facility] Course: Final diagnosis What Discharge disposition Patient is being discharged in a stable condition with guarded prognosis to home. Patient will follow-up with Dr. Aguila in the outpatient setting upon discharge. Patient is to continue with current medications and outpatient fo llow-up with pulmonary and cardiology as scheduled. Total time taken is greater than 35 minutes. Hospital course This is a 74-year-old male who was recently admitted with shortness of breath with hemoptysis and cough with initial concerns of pneumonia although suspicion was low and procalcitonin was obtained and negative. Patient had received a few doses of antibiotics and was discontinued and was also continued on breathing treatments and IV diuresis. Patient evaluated by pulmonary and cardiology with adjustments to medications and has cleared the patient for discharge. Patient will need outpatient follow-up with them as well as primary care provider on discharge. Please refer to other consultation notes for further HPI. Currently no reports of chest pain, shortness of breath, or palpitations. Patient is afebrile. No reports of nausea or vomiting and patient is tolerating diet. Patient will be discharged home today. Guarded prognosis and high risk for readmissions given patient's significant comorbidities. Physical exam: Gen: This is a 74-year-old male who is awake, alert and oriented x 3, well- developed, elderly appearing, unwell HEENT: Head is atraumatic, normocephalic. Pupils equal, round. Sclerae is anicteric. NECK: Supple. No JVD. No lymphadenopathy. No thyromegaly. LUNGS: Diminished breath sounds bilaterally with some coarse scattered rhonchi. No intercostal retractions. HEART: S1, S2 are muffled ABDOMEN: Soft. Bowel sounds are present. No masses. No tenderness. EXTREMITIES: No pedal edema. No calf tenderness. NEUROLOGICAL: Patient is awake, alert and oriented x3. Cranial nerves 2 through 12 are grossly intact. Diffusely weak Please refer to medication reconciliation sheet for a list of medications. The impression and plan of care has been dictated by Marie Inman, Nurse Practitioner as directed. Dr. Ranulfo MD I have performed a history and examination and MDM of this patient, discussed the same with the dictator, and agree with the dictator's assessment and plan as written ,documented as a scribe. Based on total visit time, I have performed more than 50% of the visit. Patient Condition at Discharge: Fair Plan - Discharge Summary Discharge Rx Participant: No New Discharge Prescriptions: New Ipratropium-Albuterol Nebulize [Duoneb 0.5 mg-3 mg/3 ml Soln] 3 ml INHALATION RT-Q4H PRN each PRN Reason: shortness of breath Continue amLODIPine [Norvasc] 10 mg PO DAILY Colchicine 0.6 mg PO DAILY traZODone HCL [Desyrel] 50 mg PO HS Cholecalciferol [Vitamin D3 (25 Mcg = 1000 Iu)] 25 mcg PO DAILY Apixaban [Eliquis] 2.5 mg PO BID HYDROcodone/APAP 10-325MG [[place] 10-325] 1 tab PO QID PRN PRN Reason: Pain Pantoprazole Sodium [Protonix] 20 mg PO BID Albuterol Inhaler [Ventolin Hfa Inhaler] 2 puff INHALATION RT-Q6H PRN PRN Reason: Shortness Of Breath Ipratropium-Albuterol Nebulize [Duoneb 0.5 mg-3 mg/3 ml Soln] 3 ml INHALATION RT-QID #120 each Furosemide [Lasix] 40 mg PO DAILY #30 tab Fluticasone Propion/Salmeterol [Wixela 500-50 Inhub] 1 puff INHALATION RT-BID Metoprolol Succinate [Toprol XL] 50 mg PO DAILY #30 tab Folic Acid 1 mg PO DAILY Ferrous Sulfate [Iron (65 MG Elemental)] 325 mg PO DAILY Naloxone HCl [Narcan] 4 mg NASAL DIRECTED PRN PRN Reason: Opioid Overdose predniSONE 5 mg PO DAILY Tiotropium 2.5 Mcg/Puff [Spiriva Respimat 2.5 Mcg] 2 puff INHALATION RT-DAILY Multivit-Min/FA/Lycopen/Lutein [Centrum Silver Tablet] 1 tab PO DAILY Nystatin [Nystatin Oral Susp] 500,000 unit PO QID Discontinued hydrALAZINE HCL [Apresoline] 100 mg PO TID Discharge Medication List amLODIPine [Norvasc] 10 mg PO DAILY 08/06/14 [History] Colchicine 0.6 mg PO DAILY 08/02/16 [History] Tiotropium 2.5 Mcg/Puff [Spiriva Respimat 2.5 Mcg] 2 puff INHALATION RT-DAILY 01/14/23 [History] predniSONE 5 mg PO DAILY 01/14/23 [History] traZODone HCL [Desyrel] 50 mg PO HS 01/14/23 [History] Cholecalciferol [Vitamin D3 (25 Mcg = 1000 Iu)] 25 mcg PO DAILY 02/11/23 [History] Multivit-Min/FA/Lycopen/Lutein [Centrum Silver Tablet] 1 tab PO DAILY 02/11/23 [History] Apixaban [Eliquis] 2.5 mg PO BID 03/07/23 [History] Albuterol Inhaler [Ventolin Hfa Inhaler] 2 puff INHALATION RT-Q6H PRN 06/30/23 [History] HYDROcodone/APAP 10-325MG [[place] 10-325] 1 tab PO QID PRN 06/30/23 [History] Pantoprazole Sodium [Protonix] 20 mg PO BID 06/30/23 [History] Furosemide [Lasix] 40 mg PO DAILY #30 tab 07/04/23 [Rx] Ipratropium-Albuterol Nebulize [Duoneb 0.5 mg-3 mg/3 ml Soln] 3 ml INHALATION RT-QID #120 each 07/04/23 [Rx] Fluticasone Propion/Salmeterol [Wixela 500-50 Inhub] 1 puff INHALATION RT-BID 01/14/24 [History] Metoprolol Succinate [Toprol XL] 50 mg PO DAILY #30 tab 01/21/24 [Rx] Ferrous Sulfate [Iron (65 MG Elemental)] 325 mg PO DAILY 02/06/24 [History] Folic Acid 1 mg PO DAILY 02/06/24 [History] Naloxone HCl [Narcan] 4 mg NASAL DIRECTED PRN 02/06/24 [History] Nystatin [Nystatin Oral Susp] 500,000 unit PO QID 02/06/24 [History] Ipratropium-Albuterol Nebulize [Duoneb 0.5 mg-3 mg/3 ml Soln] 3 ml INHALATION RT-Q4H PRN each 02/07/24 [Rx] Follow up Appointment(s)/Referral(s): Elliott Post DO [STAFF PHYSICIAN] - 1 Week Drew Medrano MD [Primary Care Provider] - 1-2 days (Please call and set up a follow-up appointment) Marlo Diggs DO [Doctor of Osteopathic Medicine] - 1 Week (Please call and set up a follow-up appointment.) Ambulatory/Diagnostic Orders: Complete Blood Count w/diff [LAB.AMB] Time Frame: 3 Days, Location: None Selected Activity/Diet/Wound Care/Special Instructions: Activity limited until follow-up Follow-up with primary care provider on discharge Follow-up with pulmonary outpatient Follow-up with cardiology outpatient Continue holding Eliquis for the next couple of days and monitor for any further bleeding Repeat labs of CBC CMP in 2 to 3 days Discharge Disposition: HOME SELF-CARE
== END 2024-02-07 16:28 | disposition home or self-care (01) | DRG 193 ==
LOC: EC 08:48 → 3SCARD 10:10
PROVIDERS: ADMIT Hospitalist; ATTEND Hospitalist
DX: J18.1 Lobar pneumonia, unspecified organism (principal); I21.A1 Myocardial infarction type 2; J96.21 Acute and chronic respiratory failure with hypoxia; D61.818 Other pancytopenia; R04.2 Hemoptysis; N18.4 Chronic kidney disease, stage 4 (severe); I13.0 Hypertensive heart and chronic kidney disease with heart failure and stage 1 through stage 4 chronic kidney disease, or unspecified chronic kidney disease; I50.22 Chronic systolic (congestive) heart failure; J44.0 Chronic obstructive pulmonary disease with (acute) lower respiratory infection; I49.5 Sick sinus syndrome; K74.60 Unspecified cirrhosis of liver; I48.0 Paroxysmal atrial fibrillation; Z99.81 Dependence on supplemental oxygen; B19.20 Unspecified viral hepatitis C without hepatic coma; I08.0 Rheumatic disorders of both mitral and aortic valves; E78.5 Hyperlipidemia, unspecified; G89.29 Other chronic pain; Z79.51 Long term (current) use of inhaled steroids; Z79.01 Long term (current) use of anticoagulants; Z79.52 Long term (current) use of systemic steroids; Z92.3 Personal history of irradiation; Z95.0 Presence of cardiac pacemaker; Z87.891 Personal history of nicotine dependence; Z79.899 Other long term (current) drug therapy; Z85.05 Personal history of malignant neoplasm of liver; Z85.828 Personal history of other malignant neoplasm of skin; Z85.818 Personal history of malignant neoplasm of other sites of lip, oral cavity, and pharynx; Z85.118 Personal history of other malignant neoplasm of bronchus and lung
CPT/HCPCS: 36415; 71046; 80053; 83735; 83880; 84145; 84484; 85025; 85610; 85730; 87040; 87070; 87205; 87449; 93005; 93306; 94640; 94760; 96374; 96375; 99285

== ENCOUNTER → 2024-03-18 | Outpatient (CLI) | payer MEDICARE, OTHER ==
--- NOTE | 2024-03-19 09:16 | XR ---
EXAMINATION TYPE: XR foot complete bilateral DATE OF EXAM: 03/18/2024 11:35 AM COMPARISON: None. CLINICAL INDICATION: Male, 74 years old with history of M19.071 M19.072 LFT AND RHT ANKLE FOOT, TECHNIQUE: 3 view(s) obtained bilateral feet. FINDINGS: Right foot: No acute fracture or dislocation evident. Plantar calcaneal heel spur is present soft tis sues are normal. Structures are mildly osteopenic. Left foot: No acute fracture or dislocation evident. Plantar calcaneal heel spur is present soft tiss ues are normal. Structures are mildly osteopenic. Follow-up exam 7-10 days from acute trauma performed for continued pain IMPRESSION: 1. Mild osteopenia. 2. No acute osseous abnormality. 3. Bilateral plantar calcaneal heel spurs [facility], , 03/19/2024 9:14 AM
--- NOTE | 2024-03-19 09:18 | XR ---
EXAMINATION TYPE: XR ankle complete bilateral DATE OF EXAM: 03/18/2024 11:35 AM COMPARISON: None. CLINICAL INDICATION: Male, 74 years old with history of M19.071 M19.072 LFT AND RHT ANKLE FOOT, TECHNIQUE: 3 view(s) obtained and lateral ankles. FINDINGS: Bilateral plantar calcaneal heel spurs are present. Tiny Achilles tendon calcaneal heel spurs on the right No acute fractures or dislocations evident. Ankle mortise is intact. There may be soft tissue swellin g over the lateral malleolus. IMPRESSION: 1. Mild soft tissue swelling lateral malleolus left ankle. 2. No acute osseous abnormalities bilateral ankles. 3. Bilateral plantar calcaneal spurs [facility], , 03/19/2024 9:16 AM
== END | disposition home or self-care (01) ==
LOC: RADXRMAIN 11:07
PROVIDERS: ATTEND Podiatrist Foot & Ankle Surgery
DX: M19.071 Primary osteoarthritis, right ankle and foot (principal); M19.072 Primary osteoarthritis, left ankle and foot; M85.80 Other specified disorders of bone density and structure, unspecified site; M77.31 Calcaneal spur, right foot; M77.32 Calcaneal spur, left foot

== ENCOUNTER → 2024-06-30 | Outpatient (CLI) | payer MEDICARE, OTHER ==
[2024-06-30 16:12] LABS: African American GFR (CKD) 35 (>60 ml/min/1.73 sqM); Blood Urea Nitrogen 51 mg/dL (9-20); Non-African American GFR(CKD) 31 (>60 ml/min/1.73 sqM)
--- NOTE | 2024-06-30 16:53 | CT ---
EXAMINATION TYPE: CT soft tissue neck wo con CT DLP: 347.7 mGycm, Automated exposure control for dose reduction was used. DATE OF EXAM: 06/30/2024 4:35 PM COMPARISON: CT soft tissue neck 11/02/2021. CLINICAL INDICATION:Male, 74 years old with history of R22.1 LOCALIZED SWELLING, MASS AND LUMP, NECK; PHH, swelling to right side of neck TECHNIQUE: Standard CT of the neck without intravenous contrast. Axial sections with coronal and sag ittal reformats were obtained. FINDINGS: Evaluation is limited due to lack of intravenous contrast. Brain: Visualized portions are grossly unremarkable. Orbits: Bilateral aphakia. Sinuses: Mild mucosal thickening of the right sphenoid sinus. Suprahyoid Neck: The oropharynx, oral cavity, parapharyngeal and retropharyngeal spaces are clear and symmetric. The nasopharynx is unremarkable. Bilateral palatine tonsilliths. Infrahyoid Neck: The larynx, hypopharynx, and supraglottic area are clear and symmetric. Parotid Glands: Unremarkable noncontrast appearance of the left parotid gland. Postsurgical changes o f the right parotid gland. No new suspicious soft tissue within the surgical bed. Submandibular Glands: Unremarkable. Musculoskeletal: Degenerative disc disease changes of the visualized spine are present. Grade 1 ante rolisthesis of C3 on C4. Lymph nodes: No pathologically enlarged lymph nodes are identified.. Vascular structures: Aneurysmal dilatation of the descending thoracic aorta measuring up to 4.2 cm. A therosclerotic calcification of the aorta and its branches. Mild bilateral carotid bulb calcification s. Thoracic Inlet/airway: Airway is patent. Left upper lung linear scarring. Centrilobular emphysematous changes. Left anterior chest wall cardiac pacemaker device with partial visualization of the leads. Soft tissues/Thyroid: Thyroid is unremarkable. Surgical clips within the right neck. Remainder of the soft tissues are unremarkable. Other: none. IMPRESSION 1. No CT evidence to explain patient's symptomatology within limitations of a noncontrast exam. 2. Postsurgical changes of the right neck/parotid region. No new suspicious soft tissue within the stanley rgical bed. 3. Partial visualization of aneurysmal dilatation of descending thoracic aorta measuring up to 4.2 cm . 4. Emphysematous changes. [facility], , 06/30/2024 4:51 PM
== END | disposition home or self-care (01) ==
LOC: RADCTMAIN 15:06
PROVIDERS: ATTEND Otolaryngology
DX: Z13.9 Encounter for screening, unspecified (principal); I71.23 Aneurysm of the descending thoracic aorta, without rupture; R22.1 Localized swelling, mass and lump, neck; Z98.890 Other specified postprocedural states
CPT/HCPCS: 36415; 70490; 82565; 84520

== ENCOUNTER 2024-07-03 18:56 | Inpatient (IN) | payer MEDICARE, OTHER ==
--- NOTE | 2024-07-03 19:41 | ED ---
General Adult HPI - General Chief complaint: Upper Respiratory Infection Stated complaint: DANIELITO Time Seen by Provider: 07/03/24 19:07 Source: EMS, RN notes reviewed Mode of arrival: EMS Limitations: no limitations - History of Present Illness Initial comments: 74-year-old male presents to the emergency department for evaluation of shortness of breath. Patient states that this started around 5 PM. He notes that he was doing some gentle exercising when this started. He reports this sensation that he was unable to catch his breath. He denies any chest pain. He does admit to a history of COPD and CHF. He took his water pill in hopes that this would help his breathing. He saw his board certified family physician today and he saw his guide visitor yesterday. He denies any fever, chills. Denies chest pain, palpitations. He uses 2 L nasal cannula at home as needed. - Related Data Home Medications Medication Instructions Recorded Confirmed amLODIPine [Norvasc] 10 mg PO DAILY 08/06/14 05/14/24 Colchicine 0.6 mg PO DAILY 08/02/16 05/14/24 Tiotropium 2.5 Mcg/Puff [Spiriva 2 puff INHALATION RT-DAILY 01/14/23 05/14/24 Respimat 2.5 Mcg] traZODone HCL [Desyrel] 50 mg PO HS 01/14/23 05/15/24 Cholecalciferol [Vitamin D3 (25 25 mcg PO DAILY 02/11/23 05/14/24 Mcg = 1000 Iu)] Multivit-Min/FA/Lycopen/Lutein 1 tab PO DAILY 02/11/23 05/14/24 [Centrum Silver Tablet] Apixaban [Eliquis] 2.5 mg PO ONCE 03/07/23 05/15/24 Albuterol Inhaler [Ventolin Hfa 2 puff INHALATION RT-Q6H PRN 06/30/23 05/14/24 Inhaler] HYDROcodone/APAP 10-325MG [[place] 1 tab PO QID PRN 06/30/23 05/14/24 10-325] Pantoprazole Sodium [Protonix] 20 mg PO BID 06/30/23 05/14/24 Fluticasone Propion/Salmeterol 1 puff INHALATION RT-BID 01/14/24 05/14/24 [Wixela 500-50 Inhub] Ferrous Sulfate [Iron (65 MG 325 mg PO DAILY 02/06/24 05/14/24 Elemental)] Folic Acid 1 mg PO DAILY 02/06/24 05/14/24 Naloxone HCl [Narcan] 4 mg NASAL DIRECTED PRN 02/06/24 05/14/24 Diclofenac Sodium Gel [Voltaren 1% 1 applic TOPICAL QID PRN 05/14/24 05/14/24 Gel] Previous Rx's Medication Instructions Recorded Furosemide [Lasix] 40 mg PO DAILY #30 tab 07/04/23 Ipratropium-Albuterol Nebulize 3 ml INHALATION RT-QID #120 each 07/04/23 [Duoneb 0.5 mg-3 mg/3 ml Soln] Metoprolol Succinate [Toprol XL] 50 mg PO DAILY #30 tab 01/21/24 Ipratropium-Albuterol Nebulize 3 ml INHALATION RT-Q4H PRN each 02/07/24 [Duoneb 0.5 mg-3 mg/3 ml Soln] Doxycycline [Vibramycin] 100 mg PO BID 7 Days #14 cap 05/15/24 hydrALAZINE HCL [Apresoline] 50 mg PO TID #90 tab 05/15/24 predniSONE See Taper PO DIRECTED #30 tab 05/15/24 Allergies Allergy/AdvReac Type Severity Reaction Status Date / Time allopurinol AdvReac Gout Verified 05/14/24 09:55 atenolol AdvReac Fatigue,Bra Verified 05/14/24 09:55 dycardia doxazosin AdvReac Delerium,Di Verified 05/14/24 09:55 zziness hydralazine AdvReac Unknown Verified 05/16/24 13:26 lisinopril AdvReac Cough Verified 05/14/24 09:55 metoprolol [From Lopressor] AdvReac Chest Pain Verified 05/14/24 09:55 omalizumab [From Xolair] AdvReac urticaria Verified 05/14/24 09:55 Review of Systems ROS Statement: Those systems with pertinent positive or pertinent negative responses have been documented in the HPI. ROS Other: All systems not noted in ROS Statement are negative. 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 Hospitalized last week for CHF & Pneumonia. Irr. heart rate @ times. liver cancer Last Myocardial Infarction Date:: 2022 History of Any Multi-Drug Resistant Organisms: None Reported Past Surgical History: Back Surgery, Heart Catheterization, Hernia Repair, Orthopedic Surgery, Pacemaker Additional Past Surgical History / Comment(s): liver ablation done at [place] for tx of hepatocellular carcinoma,hemorrhoids ,back surgery, cataract, skin cancer, inguinal hernia, abdominal hernia, left shoulder, right wrist, growth removed vocal cord, PAROTID GLAND REMOVED DUE TO CANCER. Past Anesthesia/Blood Transfusion Reactions: No Reported Reaction Additional Past Anesthesia/Blood Transfusion Reaction / Comment(s): no hx blood transfusion Type of Cardiac Device: Permanent Pacemaker Device Placement Date:: 01/20/24 Past Psychological History: No Psychological Hx Reported Smoking Status: Former smoker Past Alcohol Use History: None Reported Past Drug Use History: None Reported - Past Family History Father Family Medical History: Cancer General Exam Limitations: no limitations General appearance: alert, in no apparent distress Head exam: Present: atraumatic, normocephalic, normal inspection Eye exam: Present: normal appearance, PERRL, EOMI. Absent: scleral icterus, conjunctival injection, periorbital swelling ENT exam: Present: normal exam, mucous membranes moist Neck exam: Present: normal inspection. Absent: tenderness, meningismus, lymphadenopathy Respiratory exam: Present: normal lung sounds bilaterally. Absent: respiratory distress, wheezes, rales, rhonchi, stridor Cardiovascular Exam: Present: regular rate, normal rhythm, normal heart sounds. Absent: systolic murmur, diastolic murmur, rubs, gallop, clicks GI/Abdominal exam: Present: soft. Absent: distended, tenderness, guarding, rebound, rigid Extremities exam: Present: normal inspection, full ROM, normal capillary refill. Absent: tenderness, pedal edema, joint swelling, calf tenderness Neurological exam: Present: alert, oriented X3 Psychiatric exam: Present: normal affect, normal mood Skin exam: Present: warm, dry, intact, normal color. Absent: rash Course Vital Signs 07/03/24 07/03/24 07/03/24 19:00 20:07 20:17 Temperature 96.4 F L Pulse Rate 69 75 75 Respiratory 22 Rate Blood Pressure 128/77 O2 Sat by Pulse 92 L Oximetry 07/03/24 07/03/24 07/03/24 21:34 21:58 22:54 Temperature 98.2 F Pulse Rate 78 74 61 Respiratory 22 20 18 Rate Blood Pressure 127/67 180/101 180/92 O2 Sat by Pulse 92 L 91 L 94 L Oximetry 07/04/24 03:15 Temperature Pulse Rate 121 H Respiratory 20 Rate Blood Pressure 138/109 O2 Sat by Pulse 93 L Oximetry Medical Decision Making - Medical Decision Making Was pt. sent in by a medical professional or institution (, PA, BEAM MACHINE OPERATOR, urgent care, hospital, or custodial...) When possible be specific @ -[No] Did you speak to anyone other than the patient for history (EMS, parent, family, police, friend...)? What history was obtained from this source @ -[No] Did you review nursing and triage notes (agree or disagree)? Why? @ -[I reviewed and agree with nursing and triage notes] Were old charts reviewed (outside hosp., previous admission, EMS record, old EKG, old radiological studies, urgent care reports/EKG's, custodial records)? Report findings @ -[No old charts were reviewed] Differential Diagnosis (chest pain, altered mental status, abdominal pain women, abdominal pain men, vaginal bleeding, weakness, fever, dyspnea, syncope, headache, dizziness, GI bleed, back pain, seizure, CVA, palpatations, mental health, musculoskeletal)? @ -[Differential Dyspnea: Coronary syndrome, arrhythmia, tamponade, asthma, COPD, pulmonary embolism, pneumonia, pneumothorax, pulmonary effusion, anaphylaxis, diabetic ketoacidosis, flailed chest, pulmonary contusion, diaphragmatic rupture, anemia, neuromuscular, this is not meant to be an all-inclusive list. ] EKG interpreted by me (3pts min.). @ -EKG at 1905 shows paced rhythm rate of 71, GA 197, QRS 114, QTQTc [id number] with frequent PVCs X-rays interpreted by me (1pt min.). @ -Chest x-ray interpreted by myself appears to be pulmonary venous congestion CT interpreted by me (1pt min.). @ -[None done] U/S interpreted by me (1pt. min.). @ -[None done] What testing was considered but not performed or refused? (CT, X-rays, U/S, la bs)? Why? @ -[None] What meds were considered but not given or refused? Why? @ -[None] Did you discuss the management of the patient with other professionals (professionals i.e. , PA, BEAM MACHINE OPERATOR, lab, RT, psych nurse, social insurance adviser, research and development tester, teacher, catapult and arresting gear officer, child welfare caseworker)? Give summary @ -[Case discussed with [facility] accepting of the admission] Was smoking cessation discussed for >3mins.? @ -[No] Was critical care preformed (if so, how long)? @ -[No] Were there social determinants of health that impacted care today? How? (Homelessness, low income, unemployed, alcoholism, drug addiction, transportation, low edu. Level, literacy, decrease access to med. care, fdc, rehab)? @ -[No] Was there de-escalation of care discussed even if they declined (Discuss DNR or withdrawal of care, Hospice)? DNR status @ -[No] What co-morbidities impacted this encounter? (DM, HTN, Smoking, COPD, CAD, Cancer, CVA, ARF, Chemo, Hep., AIDS, mental health diagnosis, sleep apnea, morbid obesity)? @ -[None] Was patient admitted / discharged? Hospital course, mention meds given and route, prescriptions, significant lab abnormalities, going to OR and other pertinent info. @ -[Admitted. Patient presented the emergency department for evaluation of shortness of breath.Laboratory studies obtained revealing no significant leukocytosis, hemoglobin 12.5; normal coag studies; CMP shows elevated BUN and creatinine with a BUN of 53, creatinine 2.1 which is baseline for the patient. Patient has elevated troponin at 0.047 which is also stable and likely due to other factors. Patient has elevated BNP at 9100. He was negative for COVID, influenza, RSV. Chest x-ray obtained interpreted from radiology as pneumonia, patient is not painting the clinical picture of pneumonia I believe that this is more so due to a volume overload state. Patient will be admitted for CHF exacerbation with cardiology consultation Case discussed with Dr. Beard] Undiagnosed new problem with uncertain prognosis? @ -[No] Drug Therapy requiring intensive monitoring for toxicity (Heparin, Nitro, Insulin, Cardizem)? @ -[No] Were any procedures done? @ -[No] Diagnosis/symptom? @ -[CHF exacerbation] Acute, or Chronic, or Acute on Chronic? @ -acute Uncomplicated (without systemic symptoms) or Complicated (systemic symptoms)? @ -Uncomplicated Side effects of treatment? @ -[No] Exacerbation, Progression, or Severe Exacerbation? @ -[No] Poses a threat to life or bodily function? How? (Chest pain, [place], [place], pneumonia, PE, COPD, DKA, ARF, appy, cholecystitis, CVA, Diverticulitis, Homicidal, Suicidal, threat to staff... and all critical care pts) @ -[No] - Lab Data Result diagrams: 07/03/24 19:53 07/03/24 19:53 Lab Results 07/03/24 07/03/24 07/03/24 Range/Units 19:53 19:53 19:53 WBC 4.0 (3.8-10.6) k/uL RBC 4.68 (4.30-5.90) m/uL Hgb 12.5 L (13.0-17.5) gm/dL Hct 39.3 (39.0-53.0) % MCV 83.9 (80.0-100.0) fL MCH 26.6 (25.0-35.0) pg MCHC 31.7 (31.0-37.0) g/dL RDW 17.3 H (11.5-15.5) % Plt Count 77 L D (150-450) k/uL MPV 9.0 Neutrophils % 78 % Lymphocytes % 10 % Monocytes % 4 % Eosinophils % 6 % Basophils % 1 % Neutrophils # 3.1 (1.3-7.7) k/uL Lymphocytes # 0.4 L (1.0-4.8) k/uL Monocytes # 0.2 (0-1.0) k/uL Eosinophils # 0.2 (0-0.7) k/uL Basophils # 0.0 (0-0.2) k/uL Anisocytosis Slight PT 11.7 (10.0-12.5) sec INR 1.1 (<1.2) APTT 28.8 (22.0-30.0) sec Sodium 139 (137-145) mmol/L Potassium 3.9 (3.5-5.1) mmol/L Chloride 104 (98-107) mmol/L Carbon Dioxide 23 (22-30) mmol/L Anion Gap 12 mmol/L BUN 53 H (9-20) mg/dL Creatinine 2.10 H (0.66-1.25) mg/dL Est GFR (CKD-EPI)AfAm 35 (>60 ml/min/1.73 sqM) Est GFR (CKD-EPI)NonAf 30 (>60 ml/min/1.73 sqM) Glucose 101 H (74-99) mg/dL Calcium 9.4 (8.4-10.2) mg/dL Total Bilirubin 0.9 (0.2-1.3) mg/dL AST 31 (17-59) U/L ALT 18 (4-49) U/L Alkaline Phosphatase 99 (38-126) U/L Troponin I (0.000-0.034) ng/mL NT-Pro-B Natriuret Pep 9100 pg/mL Total Protein 7.6 (6.3-8.2) g/dL Albumin 4.3 (3.5-5.0) g/dL Influenza Type A (PCR) (Not Detectd) Influenza Type B (PCR) (Not Detectd) RSV (PCR) (Not Detectd) SARS-CoV-2 (PCR) (Not Detectd) 07/03/24 07/03/24 Range/Units 19:53 22:34 WBC (3.8-10.6) k/uL RBC (4.30-5.90) m/uL Hgb (13.0-17.5) gm/dL Hct (39.0-53.0) % MCV (80.0-100.0) fL MCH (25.0-35.0) pg MCHC (31.0-37.0) g/dL RDW (11.5-15.5) % Plt Count (150-450) k/uL MPV Neutrophils % % Lymphocytes % % Monocytes % % Eosinophils % % Basophils % % Neutrophils # (1.3-7.7) k/uL Lymphocytes # (1.0-4.8) k/uL Monocytes # (0-1.0) k/uL Eosinophils # (0-0.7) k/uL Basophils # (0-0.2) k/uL Anisocytosis PT (10.0-12.5) sec INR (<1.2) APTT (22.0-30.0) sec Sodium (137-145) mmol/L Potassium (3.5-5.1) mmol/L Chloride (98-107) mmol/L Carbon Dioxide (22-30) mmol/L Anion Gap mmol/L BUN (9-20) mg/dL Creatinine (0.66-1.25) mg/dL Est GFR (CKD-EPI)AfAm (>60 ml/min/1.73 sqM) Est GFR (CKD-EPI)NonAf (>60 ml/min/1.73 sqM) Glucose (74-99) mg/dL Calcium (8.4-10.2) mg/dL Total Bilirubin (0.2-1.3) mg/dL AST (17-59) U/L ALT (4-49) U/L Alkaline Phosphatase (38-126) U/L Troponin I 0.047 H* (0.000-0.034) ng/mL NT-Pro-B Natriuret Pep pg/mL Total Protein (6.3-8.2) g/dL Albumin (3.5-5.0) g/dL Influenza Type A (PCR) Not Detected (Not Detectd) Influenza Type B (PCR) Not Detected (Not Detectd) RSV (PCR) Not Detected (Not Detectd) SARS-CoV-2 (PCR) Not Detected (Not Detectd) Disposition Clinical Impression: CHF exacerbation Disposition: ADMITTED IP TO THIS HOSP Condition: Stable Is patient prescribed a controlled substance at d/c from ED?: No
[2024-07-03] MEDS: IPRATROPIUM-ALBUTEROL 3 ML NEB INHALATION STA (20:06)
[2024-07-03 20:07] LABS: INR 1.1 (<1.2); Prothrombin Time 11.7 sec (10.0-12.5)
[2024-07-03 20:08] LABS: Partial Thromboplastin Time 28.8 sec (22.0-30.0)
[2024-07-03 20:10] LABS: Anisocytosis Slight; Basophils % (A) 1 %; Eosinophils # (A) 0.2 k/uL (0-0.7); Eosinophils % (A) 6 %; HCT 39.3 % (39.0-53.0); HGB 12.5 gm/dL (13.0-17.5); Lymphocytes # (A) 0.4 k/uL (1.0-4.8); Lymphocytes % (A) 10 %; MCH 26.6 pg (25.0-35.0); MCHC 31.7 g/dL (31.0-37.0); MCV 83.9 fL (80.0-100.0); Monocytes # (A) 0.2 k/uL (0-1.0); Monocytes % (A) 4 %; Neutrophils # (A) 3.1 k/uL (1.3-7.7); Neutrophils % (A) 78 %; RBC 4.68 m/uL (4.30-5.90); RDW 17.3 % (11.5-15.5)
[2024-07-03 20:14] LABS: ALT 18 U/L (4-49); AST 31 U/L (17-59); African American GFR (CKD) 35 (>60 ml/min/1.73 sqM); Albumin 4.3 g/dL (3.5-5.0); Alkaline Phosphatase 99 U/L (38-126); Anion Gap 12 mmol/L; Blood Urea Nitrogen 53 mg/dL (9-20); Calcium 9.4 mg/dL (8.4-10.2); Carbon Dioxide 23 mmol/L (22-30); Chloride 104 mmol/L (98-107); Glucose 101 mg/dL (74-99); Non-African American GFR(CKD) 30 (>60 ml/min/1.73 sqM); Potassium 3.9 mmol/L (3.5-5.1); Sodium 139 mmol/L (137-145); Total Bilirubin 0.9 mg/dL (0.2-1.3); Total Protein 7.6 g/dL (6.3-8.2)
[2024-07-03 20:22] LABS: NT-Pro-B-Type Natriuretic Pept 9100 pg/mL
[2024-07-03 20:30] LABS: Platelet Count 77 k/uL (150-450)
[2024-07-03 20:34] LABS: Influenza A Not Detected (Not Detectd); Influenza B Not Detected (Not Detectd); RSV Not Detected (Not Detectd)
--- NOTE | 2024-07-03 20:42 | XR ---
EXAMINATION TYPE: XR chest 2V DATE OF EXAM: 07/03/2024 8:24 PM COMPARISON: None CLINICAL INDICATION: Male, 74 years old with history of difficulty breathing; [facility] TECHNIQUE: XR chest 2V Frontal and lateral views of the chest. FINDINGS: Lungs/Pleura: Some basilar airspace opacities on lateral view. There is no evidence of pleural effusi on, focal consolidation, or pneumothorax. Pulmonary vascularity: Unremarkable. Heart/mediastinum: Cardiomediastinal silhouette is unremarkable. Atherosclerotic calcifications are seen in the aorta. Musculoskeletal: No acute osseous pathology. Left rotator cuff repair anchor. Other findings: None IMPRESSION: Basilar airspace opacities and lateral view correlate for pneumonia. [facility], , 07/03/2024 8:40 PM
[2024-07-03] MEDS: FUROSEMIDE 10 MG/ML 2 ML VIAL IV ONE (22:55)
[2024-07-03] MEDS ORDERED: NALOXONE 0.4 MG/ML 1 ML VIAL IV PRN (23:01)
[2024-07-03] MEDS ORDERED: ACETAMINOPHEN TAB 325 MG TAB PO PRN (23:01)
[2024-07-04] MEDS: METOPROLOL TARTRATE 5 MG/5 ML VIAL IVP SCH (03:32)
[2024-07-04] MEDS: traZODone HCL 50 MG TAB PO STA (03:56)
[2024-07-04] MEDS ORDERED: ONDANSETRON 4 MG/2 ML VIAL IVP PRN (07:32)
[2024-07-04] MEDS ORDERED: NALOXONE 0.4 MG/ML 1 ML VIAL IV PRN (07:32)
[2024-07-04] MEDS ORDERED: MELATONIN 3 MG TABLET PO PRN (07:32)
[2024-07-04] MEDS ORDERED: BENZOCAINE/MENTHOL LOZENG 1 EACH LOZENGE MUCOUS MEM PRN (07:32)
--- NOTE | 2024-07-04 08:39 | P.HPIM ---
History of Present Illness H&P Date: 07/04/24 History of present illness; patient 74-year-old gentleman with past medical history significant hypertension, paroxysmal atrial fibrillation, moderate to severe aortic stenosis, chronic kidney disease,presented the ER because of shortness of breath that started 1 day back. Patient stated that he was all right yesterday morning when around 5 AM he woke up and was exercising when he started noticing that he was getting short of breath. Shortness of breath was present on rest as well as exertion. Patient stated he was unable to take deep breaths. There was no complaint of any chest pain. Patient patient was also complaining of palpitation . There was no complaint of fever or chill. Patient denies any cough. There was no complaint of swelling of lower extremities. Patient recently saw his lunch truck driver and was supposed to get an echo in outpatient settings. Patient also saw his director of cath lab recently. Patient took some extra dose of diuretic but that did not help. Because of his worsening shortness of breath patient came to the ER. Initial lab work done in the ER showed WBC 4, hemoglobin 9.5, platelet count 77, sodium 139, potassium 3.9, BUN 53, creatinine 2.10 glucose 101 troponin 0.047, proBNP 9100 Influenza A not detected Influenza B not detected RSV not detected COVID-19 not detected EKG done in the ER showed heart rate of 71, electronic atrial pacemaker Chest x-ray done in the ER showed bibasilar airspace opacities in lateral view correlate for pneumonia Patient admitted to internal medicine service REVIEW OF SYSTEMS: CONSTITUTIONAL: No fever, no malaise, no fatigue. HEENT: No recent visual problems or hearing problems. Denied any sore throat. CARDIOVASCULAR: As mentioned above PULMONARY: As mentioned above GASTROINTESTINAL: No diarrhea, no nausea, no vomiting, no abdominal pain. NEUROLOGICAL: No headaches, no weakness, no numbness. HEMATOLOGICAL: Denies any bleeding or petechiae. GENITOURINARY: Denies any burning micturition, frequency, or urgency. MUSCULOSKELETAL/RHEUMATOLOGICAL: Denies any joint pain, swelling, or any muscle pain. ENDOCRINE: Denies any polyuria or polydipsia. The rest of the 14-point review of systems is negative. PHYSICAL EXAMINATION: GENERAL: The patient is alert and oriented x3, not in any acute distress. Well developed, well nourished. HEENT: Pupils are round and equally reacting to light. EOMI. No scleral icterus. No conjunctival pallor. Normocephalic, atraumatic. No pharyngeal erythema. No thyromegaly. CARDIOVASCULAR: S1 and S2 present. Tachycardic, irregular rate and rhythm PULMONARY: Chest is clear to auscultation, no wheezing or crackles. ABDOMEN: Soft, nontender, nondistended, normoactive bowel sounds. No palpable organomegaly. MUSCULOSKELETAL: No joint swelling or deformity. EXTREMITIES: No cyanosis, clubbing, or pedal edema. NEUROLOGICAL: Gross neurological examination did not reveal any focal deficits. SKIN: No rashes. 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 Continue same treatment. Continue with symptomatic treatment. Resume home medication. Monitor labs and vitals. DVT and GI prophylaxis. Further recommendations as per clinical course of the patient Dictation was produced using Joroto dictation software. please excuse any grammatical, word or spelling errors. 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 Hospitalized last week for CHF & Pneumonia. Irr. heart rate @ times. liver cancer Last Myocardial Infarction Date:: 2022 History of Any Multi-Drug Resistant Organisms: None Reported Past Surgical History: Back Surgery, Heart Catheterization, Hernia Repair, Orthopedic Surgery, Pacemaker Additional Past Surgical History / Comment(s): liver ablation done at [place] for tx of hepatocellular carcinoma,hemorrhoids ,back surgery, cataract, skin cancer, inguinal hernia, abdominal hernia, left shoulder, right wrist, growth removed vocal cord, PAROTID GLAND REMOVED DUE TO CANCER. Past Anesthesia/Blood Transfusion Reactions: No Reported Reaction Additional Past Anesthesia/Blood Transfusion Reaction / Comment(s): no hx blood transfusion Type of Cardiac Device: Permanent Pacemaker Device Placement Date:: 01/20/24 Past Psychological History: No Psychological Hx Reported Smoking Status: Former smoker Past Alcohol Use History: None Reported Past Drug Use History: None Reported - Past Family History Father Family Medical History: Cancer Medications and Allergies Home Medications Medication Instructions Recorded Confirmed Type amLODIPine [Norvasc] 10 mg PO DAILY 08/06/14 05/14/24 History Colchicine 0.6 mg PO DAILY 08/02/16 05/14/24 History Tiotropium 2.5 Mcg/Puff [Spiriva 2 puff INHALATION RT-DAILY 01/14/23 05/14/24 History Respimat 2.5 Mcg] traZODone HCL [Desyrel] 50 mg PO HS 01/14/23 05/15/24 History Cholecalciferol [Vitamin D3 (25 25 mcg PO DAILY 02/11/23 05/14/24 History Mcg = 1000 Iu)] Multivit-Min/FA/Lycopen/Lutein 1 tab PO DAILY 02/11/23 05/14/24 History [Centrum Silver Tablet] Apixaban [Eliquis] 2.5 mg PO ONCE 03/07/23 05/15/24 History Albuterol Inhaler [Ventolin Hfa 2 puff INHALATION RT-Q6H PRN 06/30/23 05/14/24 History Inhaler] HYDROcodone/APAP 10-325MG [[place] 1 tab PO QID PRN 06/30/23 05/14/24 History 10-325] Pantoprazole Sodium [Protonix] 20 mg PO BID 06/30/23 05/14/24 History Furosemide [Lasix] 40 mg PO DAILY #30 tab 07/04/23 05/14/24 Rx Ipratropium-Albuterol Nebulize 3 ml INHALATION RT-QID #120 each 07/04/23 Rx [Duoneb 0.5 mg-3 mg/3 ml Soln] Fluticasone Propion/Salmeterol 1 puff INHALATION RT-BID 01/14/24 05/14/24 History [Wixela 500-50 Inhub] Metoprolol Succinate [Toprol XL] 50 mg PO DAILY #30 tab 01/21/24 05/14/24 Rx Ferrous Sulfate [Iron (65 MG 325 mg PO DAILY 02/06/24 05/14/24 History Elemental)] Folic Acid 1 mg PO DAILY 02/06/24 05/14/24 History Naloxone HCl [Narcan] 4 mg NASAL DIRECTED PRN 02/06/24 05/14/24 History Ipratropium-Albuterol Nebulize 3 ml INHALATION RT-Q4H PRN each 02/07/24 05/14/24 Rx [Duoneb 0.5 mg-3 mg/3 ml Soln] Diclofenac Sodium Gel [Voltaren 1% 1 applic TOPICAL QID PRN 05/14/24 05/14/24 History Gel] Doxycycline [Vibramycin] 100 mg PO BID 7 Days #14 cap 05/15/24 Rx hydrALAZINE HCL [Apresoline] 50 mg PO TID #90 tab 05/15/24 Rx predniSONE See Taper PO DIRECTED #30 tab 05/15/24 Rx Allergies Allergy/AdvReac Type Severity Reaction Status Date / Time allopurinol AdvReac Gout Verified 05/14/24 09:55 atenolol AdvReac Fatigue,Bra Verified 05/14/24 09:55 dycardia doxazosin AdvReac Delerium,Di Verified 05/14/24 09:55 zziness hydralazine AdvReac Unknown Verified 05/16/24 13:26 lisinopril AdvReac Cough Verified 05/14/24 09:55 metoprolol [From Lopressor] AdvReac Chest Pain Verified 05/14/24 09:55 omalizumab [From Xolair] AdvReac urticaria Verified 05/14/24 09:55 Physical Exam Vitals: Vital Signs Temp Pulse Resp BP Pulse Ox 07/04/24 04:53 96 07/04/24 04:15 76 16 111/75 07/04/24 03:56 108 H 18 113/90 07/04/24 03:43 96 18 136/103 96 07/04/24 03:15 121 H 20 138/109 93 L 07/03/24 22:54 98.2 F 61 18 180/92 94 L 07/03/24 21:58 74 20 180/101 91 L 07/03/24 21:34 78 22 127/67 92 L 07/03/24 20:17 75 07/03/24 20:07 75 07/03/24 19:00 96.4 F L 69 22 128/77 92 L Intake and Output 07/03/24 07/04/24 07/04/24 22:59 06:59 14:59 Other: Weight 83.915 kg Results CBC & Chem 7: 07/03/24 19:53 07/03/24 19:53 Labs: Abnormal Lab Results - Last 24 Hours (Table) 07/03/24 07/03/24 07/03/24 Range/Units 19:53 19:53 22:34 Hgb 12.5 L (13.0-17.5) gm/dL RDW 17.3 H (11.5-15.5) % Plt Count 77 L D (150-450) k/uL Lymphocytes # 0.4 L (1.0-4.8) k/uL BUN 53 H (9-20) mg/dL Creatinine 2.10 H (0.66-1.25) mg/dL Glucose 101 H (74-99) mg/dL Troponin I 0.047 H* (0.000-0.034) ng/mL
[2024-07-04] MEDS: FUROSEMIDE 10 MG/ML 2 ML VIAL IV SCH (09:14)
[2024-07-04] MEDS: guaiFENesin 600 MG TABLET.ER PO SCH (09:14)
[2024-07-04] MEDS: APIXABAN 5 MG TAB PO SCH (09:14)
[2024-07-04] MEDS: METOPROLOL SUCCINATE (ER) 50 MG TAB.ER.24H PO SCH (09:15)
[2024-07-04] MEDS: IPRATROPIUM-ALBUTEROL 3 ML NEB INHALATION PRN (09:31)
[2024-07-04] MEDS ORDERED: HEPARIN SODIUM 1,000 UN/ML (10ML VL) IV PRN (11:07)
--- NOTE | 2024-07-04 11:10 | P.CRDCN ---
History of Present Illness Consult date: 07/04/24 History of present illness: The patient is a pleasant 74-year-old gentleman who is known to our service from before with a past medical history significant for valvular heart disease with known aortic stenosis and regurgitation as well as mitral regurgitation based on echo was performed in 2023 with a preserved LV systolic function as well as history of paroxysmal atrial fibrillation for some reasons not on any oral anticoagulation as well as permanent pacemaker implantation which was dual- chamber pacemaker and also heart failure with preserved ejection fraction and chronic kidney disease as well as multiple comorbid conditions. He presented to the hospital with progressive exertional dyspnea and bilateral lower extremities edema with no symptoms of chest pain or chest discomfort or dizziness or lightheadedness or presyncope or syncope. He was treated as an outpatient with increasing the dose of oral diuretics with no improvement and for that reason he decided to come to the hospital for further evaluation. He underwent further workup including chest x-ray came to be unremarkable overall and NT proBNP came in to be elevated significantly. The EKG initially showed A-fib with RVR but subsequent EKG showed atrial paced rhythm. He was started on Lasix IV with improvement in his symptoms overall. The first set of troponin came to be slightly abnormal. He underwent a heart catheterization in 2022 showed normal coronaries. He is in acute on chronic renal failure at this point. An echocardiogram was performed and still pending. The physical examination is remarkable for regular rhythm with a systolic and diastolic murmur at the right and left upper sternal border with diminished breathing sounds bilaterally and bilateral expiratory wheezing along with mild to moderate bilateral lower extremities edema Assessment Heart failure with preserved ejection fraction Paroxysmal atrial fibrillation Permanent pacemaker Valvular heart disease as described above Multiple comorbid conditions including renal failure Plan Continue the current medical regimen Continue monitor the kidney function and electrolytes on the current dose of Lasix IV Follow-up on the echocardiogram which was performed earlier Start the patient on heparin IV for the abnormal cardiac enzymes and for the atrial fibrillation as well Further recommendation to follow Past Medical History Past Medical History: Cancer, Chest Pain / Angina, Heart Failure, COPD, Hypertension, Liver Disease, Myocardial Infarction ([place]), Musculoskeletal Disorder, Pneumonia Additional Past Medical History / Comment(s): HX OF HEPATITIS C , hepatocellular carcinoma, LOW IRON , BACK PAIN, HERNIATED DISCS, SKIN CANCER, 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 Hospitalized last week for CHF & Pneumonia. Irr. heart rate @ times. liver cancer Last Myocardial Infarction Date:: 2022 History of Any Multi-Drug Resistant Organisms: None Reported Past Surgical History: Back Surgery, Heart Catheterization, Hernia Repair, Orthopedic Surgery, Pacemaker Additional Past Surgical History / Comment(s): liver ablation done at [facility] for tx of hepatocellular carcinoma,hemorrhoids ,back surgery, cataract, skin cancer, inguinal hernia, abdominal hernia, left shoulder, right wrist, growth removed vocal cord, PAROTID GLAND REMOVED DUE TO CANCER. Past Anesthesia/Blood Transfusion Reactions: No Reported Reaction Additional Past Anesthesia/Blood Transfusion Reaction / Comment(s): no hx blood transfusion Type of Cardiac Device: Permanent Pacemaker Device Placement Date:: 01/20/24 Past Psychological History: No Psychological Hx Reported Smoking Status: Former smoker Past Alcohol Use History: None Reported Past Drug Use History: None Reported - Past Family History Father Family Medical History: Cancer Medications and Allergies Home Medications Medication Instructions Recorded Confirmed Type amLODIPine [Norvasc] 10 mg PO DAILY 08/06/14 07/04/24 History Colchicine 0.6 mg PO DAILY 08/02/16 07/04/24 History Tiotropium 2.5 Mcg/Puff [Spiriva 1 puff INHALATION RT-BID 01/14/23 07/04/24 History Respimat 2.5 Mcg] traZODone HCL [Desyrel] 50 mg PO HS 01/14/23 07/04/24 History Cholecalciferol [Vitamin D3 (25 25 mcg PO DAILY 02/11/23 07/04/24 History Mcg = 1000 Iu)] Multivit-Min/FA/Lycopen/Lutein 1 tab PO DAILY 02/11/23 07/04/24 History [Centrum Silver Tablet] Albuterol Inhaler [Ventolin Hfa 2 puff INHALATION RT-Q6H PRN 06/30/23 07/04/24 History Inhaler] HYDROcodone/APAP 10-325MG [Hustler 1 tab PO QID PRN 06/30/23 07/04/24 History 10-325] Pantoprazole Sodium [Protonix] 20 mg PO BID 06/30/23 07/04/24 History Ipratropium-Albuterol Nebulize 3 ml INHALATION RT-QID #120 each 07/04/23 07/04/24 Rx [Duoneb 0.5 mg-3 mg/3 ml Soln] Fluticasone Propion/Salmeterol 1 puff INHALATION RT-BID 01/14/24 07/04/24 History [Wixela 500-50 Inhub] Metoprolol Succinate [Toprol XL] 50 mg PO DAILY #30 tab 01/21/24 07/04/24 Rx Ferrous Sulfate [Iron (65 MG 325 mg PO DAILY 02/06/24 07/04/24 History Elemental)] Folic Acid 1 mg PO DAILY 02/06/24 07/04/24 History Naloxone HCl [Narcan] 4 mg NASAL DIRECTED PRN 02/06/24 07/04/24 History Ipratropium-Albuterol Nebulize 3 ml INHALATION RT-Q4H PRN each 02/07/24 07/04/24 Rx [Duoneb 0.5 mg-3 mg/3 ml Soln] Diclofenac Sodium Gel [Voltaren 1% 1 applic TOPICAL QID PRN 05/14/24 07/04/24 History Gel] Furosemide [Lasix] 40 mg PO BID 07/04/24 07/04/24 History predniSONE 5 mg PO DAILY 07/04/24 07/04/24 History Allergies Allergy/AdvReac Type Severity Reaction Status Date / Time allopurinol AdvReac Gout Verified 05/14/24 09:55 atenolol AdvReac Fatigue,Bra Verified 05/14/24 09:55 dycardia doxazosin AdvReac Delerium,Di Verified 05/14/24 09:55 zziness hydralazine AdvReac Unknown Verified 05/16/24 13:26 lisinopril AdvReac Cough Verified 05/14/24 09:55 metoprolol [From Lopressor] AdvReac Chest Pain Verified 05/14/24 09:55 omalizumab [From Xolair] AdvReac urticaria Verified 05/14/24 09:55 Physical Exam Vitals: Vital Signs Temp Pulse Resp BP Pulse Ox 07/04/24 09:40 112 H 07/04/24 09:32 109 H 07/04/24 09:10 123 H 18 133/113 97 07/04/24 04:53 96 07/04/24 04:15 76 16 111/75 07/04/24 03:56 108 H 18 113/90 07/04/24 03:43 96 18 136/103 96 07/04/24 03:15 121 H 20 138/109 93 L 07/03/24 22:54 98.2 F 61 18 180/92 94 L 07/03/24 21:58 74 20 180/101 91 L 07/03/24 21:34 78 22 127/67 92 L 07/03/24 20:17 75 07/03/24 20:07 75 07/03/24 19:00 96.4 F L 69 22 128/77 92 L Intake and Output 07/03/24 07/04/24 07/04/24 22:59 06:59 14:59 Other: Weight 83.915 kg Results 07/03/24 19:53 07/03/24 19:53 Cardiac Enzymes 07/03/24 07/03/24 07/04/24 Range/Units 19:53 22:34 08:03 AST 31 (17-59) U/L Troponin I 0.047 H* 0.042 H* (0.000-0.034) ng/mL Coagulation 07/03/24 Range/Units 19:53 PT 11.7 (10.0-12.5) sec APTT 28.8 (22.0-30.0) sec CBC 07/03/24 Range/Units 19:53 WBC 4.0 (3.8-10.6) k/uL RBC 4.68 (4.30-5.90) m/uL Hgb 12.5 L (13.0-17.5) gm/dL Hct 39.3 (39.0-53.0) % Plt Count 77 L D (150-450) k/uL Comprehensive Metabolic Panel 07/03/24 Range/Units 19:53 Sodium 139 (137-145) mmol/L Potassium 3.9 (3.5-5.1) mmol/L Chloride 104 (98-107) mmol/L Carbon Dioxide 23 (22-30) mmol/L BUN 53 H (9-20) mg/dL Creatinine 2.10 H (0.66-1.25) mg/dL Glucose 101 H (74-99) mg/dL Calcium 9.4 (8.4-10.2) mg/dL AST 31 (17-59) U/L ALT 18 (4-49) U/L Alkaline Phosphatase 99 (38-126) U/L Total Protein 7.6 (6.3-8.2) g/dL Albumin 4.3 (3.5-5.0) g/dL Current Medications Generic Name Dose Route Start Last Admin Trade Name Freq PRN Reason Stop Dose Admin Acetaminophen 650 mg 07/03/24 23:01 Acetaminophen Tab 325 Mg Tab PO Q6HR PRN Mild Pain or Fever > 100.5 Albuterol/Ipratropium 3 ml 07/04/24 07:35 07/04/24 09:31 Ipratropium-Albuterol 3 Ml Neb INHALATION 3 ml RT-QID PRN Administration Shortness Of Breath Or Wheezing Alprazolam 0.25 mg 07/03/24 23:01 Alprazolam 0.25 Mg Tab PO Q6HR PRN Anxiety Apixaban 5 mg 07/04/24 09:00 07/04/24 09:17 Apixaban 5 Mg Tab PO Not Given BID [facility] Protocol Benzocaine/Menthol 1 each 07/04/24 07:32 Benzocaine/Menthol Lozeng 1 Each Lozenge MUCOUS MEM Q4HR PRN Sore Throat Furosemide 20 mg 07/04/24 09:00 07/04/24 09:14 Furosemide 10 Mg/Ml 2 Ml Vial IV 20 mg BID@0900,1600 RAFY Administration Guaifenesin 600 mg 07/04/24 09:00 07/04/24 09:14 Guaifenesin 600 Mg Tablet.Er PO 600 mg Q12HR RAFY Administration Melatonin 3 mg 07/04/24 07:32 Melatonin 3 Mg Tablet PO HS PRN Insomnia Metoprolol Succinate 50 mg 07/04/24 09:00 07/04/24 09:15 Metoprolol Succinate (Er) 50 Mg Tab.Er.24h PO 50 mg DAILY RAFY Administration Morphine Sulfate 4 mg 07/03/24 23:01 Morphine Sulfate 4 Mg/Ml Syringe IV Q4HR PRN Severe Pain (Scale 7 to 10) Naloxone HCl 0.2 mg 07/04/24 07:32 Naloxone 0.4 Mg/Ml 1 Ml Vial IV Q2M PRN Opioid Reversal Ondansetron HCl 4 mg 07/04/24 07:32 Ondansetron 4 Mg/2 Ml Vial IVP Q8HR PRN Nausea And Vomiting Trazodone HCl 50 mg 07/04/24 21:00 Trazodone Hcl 50 Mg Tab PO HS RAFY Intake and Output 07/03/24 07/04/2407/04/25 22:59 06:59 14:59 Other: Weight 83.915 kg 07/03/24 19:53 07/03/24 19:53
[2024-07-04] MEDS: HEPARIN SOD,PORK IN 0.45% NACL 25,000 UNIT in 0.45% NACL 1 250ML.BAG IV SCH (12:07)
[2024-07-04 12:48] LABS: INR 1.2 (<1.2); Partial Thromboplastin Time 31.6 sec (22.0-30.0); Prothrombin Time 12.7 sec (10.0-12.5)
--- NOTE | 2024-07-04 14:56 | NM ---
EXAMINATION TYPE: NM pul vent and perfuse DATE OF EXAM: 07/04/2024 CLINICAL INDICATION: Male, 74 years old with history of dyspnea; COMPARISON: NONE TECHNIQUE: Utilizing inhalation of 68.4 mCi Tc 99m DTPA aerosol and intravenous injection of 5.21 mC i of Tc 99m MAA, ventilation and perfusion images are acquired post injection in multiple projections . FINDINGS: Normal radiotracer distribution is noted in the lungs. There is no evidence of mismatched defects. IMPRESSION: Low probability for pulmonary embolism [facility] Noel, , 07/04/2024 2:54 PM
[2024-07-04] MEDS: traZODone HCL 50 MG TAB PO SCH (20:02)
[2024-07-04] MEDS ORDERED: traZODone HCL 50 MG TAB PO SCH (21:00)
[2024-07-05] MEDS: MORPHINE SULFATE 4 MG/ML SYRINGE IV PRN (03:13)
--- NOTE | 2024-07-05 07:11 | P.PN ---
Subjective Progress Note Date: 07/05/24 The patient is a pleasant 74-year-old gentleman who is known to our service from before with a past medical history significant for valvular heart disease with known aortic stenosis and regurgitation as well as mitral regurgitation based on echo was performed in 2023 with a preserved LV systolic function as well as history of paroxysmal atrial fibrillation for some reasons not on any oral anticoagulation as well as permanent pacemaker implantation which was dual- chamber pacemaker and also heart failure with preserved ejection fraction and chronic kidney disease as well as multiple comorbid conditions. He presented to the hospital with progressive exertional dyspnea and bilateral lower extremities edema with no symptoms of chest pain or chest discomfort or dizziness or lightheadedness or presyncope or syncope. He was treated as an outpatient with increasing the dose of oral diuretics with no improvement and for that reason he decided to come to the hospital for further evaluation. He underwent further workup including chest x-ray came to be unremarkable overall and NT proBNP came in to be elevated significantly. The EKG initially showed A-fib with RVR but subsequent EKG showed atrial paced rhythm. He was started on Lasix IV with improvement in his symptoms overall. The first set of troponin came to be slightly abnormal. He underwent a heart catheterization in 2022 showed normal coronaries. He is in acute on chronic renal failure at this point. An echocardiogram was performed and still pending. The physical examination is remarkable for regular rhythm with a systolic and diastolic murmur at the right and left upper sternal border with diminished breathing sounds bilaterally and bilateral expiratory wheezing along with mild to moderate bilateral lower extremities edema July 05, 2024 The patient was seen and evaluated this morning. He continues to have shortness of breath which has not improved compared to before with no pain in the chest and no other cardiovascular symptoms. Hemodynamically he is stable. The echo still pending. He is on heparin IV which we will continue at this point till we have the results of the echo to rule out any cardiomyopathy needed an invasive workup. The physical examination is remarkable for a systolic and diastolic murmur at the right and left upper sternal border along with bilateral rhonchi. Assessment Heart failure with preserved ejection fraction Paroxysmal atrial fibrillation Permanent pacemaker Valvular heart disease as described above Multiple comorbid conditions including renal failure Plan Continue the current medical regimen Continue monitor the kidney function and electrolytes on the current dose of Las ix IV Follow-up on the echocardiogram which was performed earlier Follow-up with the patient Objective - Vital Signs Vital signs: Vital Signs Temp 97.6 F 07/05/24 04:00 Pulse 94 07/05/24 04:00 Resp 14 07/05/24 04:00 BP 131/84 07/05/24 04:00 Pulse Ox 95 07/05/24 04:00 FiO2 Intake & Output 07/04/24 07/05/24 07/05/24 18:59 06:59 18:59 Intake Total 304.167 Output Total 850 Balance 304.167 -850 Weight 83.915 kg Intake: Intake, IV Titration 64.167 Amount Heparin Sod,Pork in 0.45% 64.167 NaCl 25,000 unit In 0.45 % NaCl 1 250ml.bag @ 11. 9168 UNITS/KG/HR 10 mls/ hr IV .Q24H [facility] Rx#: [id number] Oral 240 Output: Urine 850 Other: Voiding Method Urinal - Labs CBC & Chem 7: 07/03/24 19:53 07/03/24 19:53 Labs: Abnormal Lab Results - Last 24 Hours (Table) 07/04/24 07/04/24 07/04/24 Range/Units 08:03 08:03 08:03 ESR 32 H (0-20) mm/Hr PT (10.0-12.5) sec INR (<1.2) APTT (22.0-30.0) sec D-Dimer 3.21 H (<0.60) mg/L FEU Troponin I (0.000-0.034) ng/mL C-Reactive Protein 1.9 H (<1.0) mg/dL 07/04/24 07/04/24 07/04/24 Range/Units 08:03 12:16 12:16 ESR (0-20) mm/Hr PT 12.7 H (10.0-12.5) sec INR 1.2 H (<1.2) APTT 31.6 H (22.0-30.0) sec D-Dimer (<0.60) mg/L FEU Troponin I 0.042 H* 0.037 H* (0.000-0.034) ng/mL C-Reactive Protein (<1.0) mg/dL 07/04/24 07/04/24 Range/Units 17:39 23:58 ESR (0-20) mm/Hr PT (10.0-12.5) sec INR (<1.2) APTT 39.0 H 40.8 H (22.0-30.0) sec D-Dimer (<0.60) mg/L FEU Troponin I (0.000-0.034) ng/mL C-Reactive Protein (<1.0) mg/dL
[2024-07-05] MEDS ORDERED: NON FORMULARY DRUG (Albuterol Inhaler 90 MCG Puff) INHALATION PRN (08:24)
[2024-07-05] MEDS ORDERED: HYDROcodone/APAP 10-325MG 1 EACH TAB PO PRN (08:24)
[2024-07-05] MEDS: TIOTROPIUM 2.5 MCG INHALER INHALATION SCH (08:25)
--- NOTE | 2024-07-05 08:27 | P.PN ---
Subjective Progress Note Date: 07/05/24 patient 74-year-old gentleman with past medical history significant hypertension, paroxysmal atrial fibrillation, moderate to severe aortic stenosis, chronic kidney disease,presented the ER because of shortness of breath that started 1 day back. Patient stated that he was all right yesterday morning when around 5 AM he woke up and was exercising when he started noticing that he was getting short of breath. Shortness of breath was present on rest as well as exertion. Patient stated he was unable to take deep breaths. There was no complaint of any chest pain. Patient patient was also complaining of palpitation . There was no complaint of fever or chill. Patient denies any cough. There was no complaint of swelling of lower extremities. Patient recently saw his reed worker and was supposed to get an echo in outpatient settings. Patient also saw his pattern setter recently. Patient took some extra dose of diuretic but that did not help. Because of his worsening shortness of breath patient came to the ER. Initial lab work done in the ER showed WBC 4, hemoglobin 9.5, platelet count 77, sodium 139, potassium 3.9, BUN 53, creatinine 2.10 glucose 101 troponin 0.047, proBNP 9100 Influenza A not detected Influenza B not detected RSV not detected COVID-19 not detected EKG done in the ER showed heart rate of 71, electronic atrial pacemaker Chest x-ray done in the ER showed bibasilar airspace opacities in lateral view correlate for pneumonia Patient admitted to internal medicine service 07/05. Patient seen and examined. Stated he is still short of breath, gets easily winded on exertion. Currently on 4 L of oxygen REVIEW OF SYSTEMS: CONSTITUTIONAL: No fever, no malaise,. CARDIOVASCULAR: No chest pain, no palpitations, no syncope. PULMONARY: As mentioned above GASTROINTESTINAL: No diarrhea, no nausea, no vomiting, no abdominal pain. NEUROLOGICAL: No headaches, no weakness, PHYSICAL EXAMINATION: GENERAL: The patient is alert and oriented x3, not in any acute distress. Well developed, well nourished. HEENT: Pupils are round and equally reacting to light. EOMI. No scleral icterus. No conjunctival pallor. Normocephalic, atraumatic. No pharyngeal erythema. No thyromegaly. CARDIOVASCULAR: S1 and S2 present. No murmurs, rubs, or gallops. PULMONARY: Diminished breath sound the bases, crackles audible ABDOMEN: Soft, nontender, nondistended, normoactive bowel sounds. No palpable organomegaly. MUSCULOSKELETAL: No joint swelling or deformity. EXTREMITIES: No cyanosis, clubbing, or pedal edema. NEUROLOGICAL: Gross neurological examination did not reveal any focal deficits. SKIN: No rashes. 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 Continue same treatment. Continue with symptomatic treatment. Resume home medication. Monitor labs and vitals. DVT and GI prophylaxis. Further recommendations as per clinical course of the patient Dictation was produced using [employer] dictation software. please excuse any grammatical, word or spelling errors. Objective - Vital Signs Vital signs: Vital Signs Temp 97.6 F 07/05/24 04:00 Pulse 94 07/05/24 04:00 Resp 14 07/05/24 04:00 BP 131/84 07/05/24 04:00 Pulse Ox 95 07/05/24 04:00 FiO2 Intake & Output 07/04/24 07/05/24 07/05/24 18:59 06:59 18:59 Intake Total 304.167 Output Total 850 Balance 304.167 -850 Weight 83.915 kg Intake: Intake, IV Titration 64.167 Amount Heparin Sod,Pork in 0.45% 64.167 NaCl 25,000 unit In 0.45 % NaCl 1 250ml.bag @ 11. 9168 UNITS/KG/HR 10 mls/ hr IV .Q24H [facility] Rx#: [id number] Oral 240 Output: Urine 850 Other: Voiding Method Urinal - Labs CBC & Chem 7: 07/03/24 19:53 07/03/24 19:53 Labs: Abnormal Lab Results - Last 24 Hours (Table) 07/04/24 07/04/24 07/04/24 Range/Units 08:03 08:03 08:03 ESR 32 H (0-20) mm/Hr PT (10.0-12.5) sec INR (<1.2) APTT (22.0-30.0) sec D-Dimer 3.21 H (<0.60) mg/L FEU Troponin I (0.000-0.034) ng/mL C-Reactive Protein 1.9 H (<1.0) mg/dL 07/04/24 07/04/24 07/04/24 Range/Units 08:03 12:16 12:16 ESR (0-20) mm/Hr PT 12.7 H (10.0-12.5) sec INR 1.2 H (<1.2) APTT 31.6 H (22.0-30.0) sec D-Dimer (<0.60) mg/L FEU Troponin I 0.042 H* 0.037 H* (0.000-0.034) ng/mL C-Reactive Protein (<1.0) mg/dL 07/04/24 07/04/24 Range/Units 17:39 23:58 ESR (0-20) mm/Hr PT (10.0-12.5) sec INR (<1.2) APTT 39.0 H 40.8 H (22.0-30.0) sec D-Dimer (<0.60) mg/L FEU Troponin I (0.000-0.034) ng/mL C-Reactive Protein (<1.0) mg/dL
[2024-07-05] MEDS: CHOLECALCIFEROL 25 MCG (1000 IU) TABLET PO SCH (09:01)
[2024-07-05] MEDS: FERROUS SULFATE 325 MG TAB PO SCH (09:02)
[2024-07-05] MEDS: FOLIC ACID 1 MG TAB PO SCH (09:03)
[2024-07-05 09:05] LABS: ALT 16 U/L (4-49); AST 29 U/L (17-59); African American GFR (CKD) 35 (>60 ml/min/1.73 sqM); Alkaline Phosphatase 91 U/L (38-126); Anion Gap 12 mmol/L; Blood Urea Nitrogen 50 mg/dL (9-20); Carbon Dioxide 25 mmol/L (22-30); Chloride 101 mmol/L (98-107); Glucose 121 mg/dL (74-99); Non-African American GFR(CKD) 30 (>60 ml/min/1.73 sqM); Potassium 3.8 mmol/L (3.5-5.1); Sodium 138 mmol/L (137-145); Total Bilirubin 1.3 mg/dL (0.2-1.3); Total Protein 7.2 g/dL (6.3-8.2)
[2024-07-05 09:09] LABS: INR 1.1 (<1.2)
[2024-07-05 09:14] LABS: Anisocytosis Slight; Basophils % (A) 0 %; Eosinophils # (A) 0.2 k/uL (0-0.7); Eosinophils % (A) 6 %; HCT 40.6 % (39.0-53.0); HGB 12.9 gm/dL (13.0-17.5); Hypochromasia Moderate; Lymphocytes # (A) 0.5 k/uL (1.0-4.8); Lymphocytes % (A) 13 %; MCH 26.5 pg (25.0-35.0); MCHC 31.7 g/dL (31.0-37.0); MCV 83.6 fL (80.0-100.0); Mean Platelet Volume 9.8; Monocytes # (A) 0.2 k/uL (0-1.0); Monocytes % (A) 5 %; Neutrophils # (A) 2.6 k/uL (1.3-7.7); Neutrophils % (A) 75 %; RBC 4.86 m/uL (4.30-5.90); RDW 16.9 % (11.5-15.5); WBC 3.5 k/uL (3.8-10.6)
[2024-07-05] MEDS: PANTOPRAZOLE 40 MG TABLET PO SCH (09:17)
[2024-07-05] MEDS: predniSONE 5 MG TAB PO SCH (09:17)
[2024-07-05 09:40] LABS: Platelet Count 72 k/uL (150-450)
--- NOTE | 2024-07-05 11:17 | P.CNPUL ---
History of Present Illness Consult date: 07/05/24 Requesting physician: Heraclio Tanner Reason for consult: dyspnea, cough, COPD, hypoxemia, abnormal CXR/CT Chief complaint: Shortness of breath. History of present illness: Pulmonary consultation dated July 05, 2024. 74-year-old male seen in the emergency department, on July 03, 2024. The patient presented with shortness of breath, cough, and congestion. The patient states that the symptoms have been present for about a day or so prior to admission, getting worse. He states he could not catch his breath. The patient was recently in the hospital, between May 14 and May 16, with a similar episode. On this admission, he was admitted with a diagnosis of COPD exacerbation, and CHF. We were just consulted this morning. The patient does have COPD, with an FEV1 that is 59% of predicted. He sees one of my partners in the office. Current laboratory data includes a white count 3.5, hemoglobin 12.9, hematocrit 40.6, and platelet count 72,000. Sodium 138, potassium 3.8, chlorides 101, CO2 25, anion gap 12, BUN 50, creatinine 2.10. Glucose is 121. Troponins were 0.042 and 0.037. Procalcitonin level was normal at 0.20. A ventilation/perfusion lung scan was low probability for pulmonary embolism. Chest x-ray showed bibasilar opacities, consistent with possible pneumonia v ersus atypical edema. Review of Systems REVIEW OF SYSTEMS: CONSTITUTIONAL: [Negative.] NEUROLOGIC: [ Negative.] HEENT: [ Negative.] CARDIAC: [Negative.] PULMONARY: Shortness of breath, chest congestion, cough. GI: [Negative.] : [Negative.] RHEUMATOLOGIC: [ Negative.] IMMUNOLOGIC: [ Negative.] ENDOCRINE: [Negative. 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 Hospitalized last week for CHF & Pneumonia. Irr. heart rate @ times. liver cancer Last Myocardial Infarction Date:: 2022 History of Any Multi-Drug Resistant Organisms: None Reported Past Surgical History: Back Surgery, Heart Catheterization, Hernia Repair, Orthopedic Surgery, Pacemaker Additional Past Surgical History / Comment(s): liver ablation done at [place] for tx of hepatocellular carcinoma,hemorrhoids ,back surgery, cataract, skin cancer, inguinal hernia, abdominal hernia, left shoulder, right wrist, growth removed vocal cord, PAROTID GLAND REMOVED DUE TO CANCER. Past Anesthesia/Blood Transfusion Reactions: No Reported Reaction Additional Past Anesthesia/Blood Transfusion Reaction / Comment(s): no hx blood transfusion Type of Cardiac Device: Permanent Pacemaker Device Placement Date:: 01/20/24 Past Psychological History: No Psychological Hx Reported Smoking Status: Former smoker Past Alcohol Use History: None Reported Additional Past Alcohol Use History / Comment(s): Smoking on and off for 45 years. Past Drug Use History: None Reported - Past Family History Father Family Medical History: Cancer Medications and Allergies Home Medications Medication Instructions Recorded Confirmed Type amLODIPine [Norvasc] 10 mg PO DAILY 08/06/14 07/04/24 History Colchicine 0.6 mg PO DAILY 08/02/16 07/04/24 History Tiotropium 2.5 Mcg/Puff [Spiriva 1 puff INHALATION RT-BID 01/14/23 07/04/24 History Respimat 2.5 Mcg] traZODone HCL [Desyrel] 50 mg PO HS 01/14/23 07/04/24 History Cholecalciferol [Vitamin D3 (25 25 mcg PO DAILY 02/11/23 07/04/24 History Mcg = 1000 Iu)] Multivit-Min/FA/Lycopen/Lutein 1 tab PO DAILY 02/11/23 07/04/24 History [Centrum Silver Tablet] Albuterol Inhaler [Ventolin Hfa 2 puff INHALATION RT-Q6H PRN 06/30/23 07/04/24 History Inhaler] HYDROcodone/APAP 10-325MG [[place] 1 tab PO QID PRN 06/30/23 07/04/24 History 10-325] Pantoprazole Sodium [Protonix] 20 mg PO BID 06/30/23 07/04/24 History Ipratropium-Albuterol Nebulize 3 ml INHALATION RT-QID #120 each 07/04/23 07/04/24 Rx [Duoneb 0.5 mg-3 mg/3 ml Soln] Fluticasone Propion/Salmeterol 1 puff INHALATION RT-BID 01/14/24 07/04/24 History [Wixela 500-50 Inhub] Metoprolol Succinate [Toprol XL] 50 mg PO DAILY #30 tab 01/21/24 07/04/24 Rx Ferrous Sulfate [Iron (65 MG 325 mg PO DAILY 02/06/24 07/04/24 History Elemental)] Folic Acid 1 mg PO DAILY 02/06/24 07/04/24 History Naloxone HCl [Narcan] 4 mg NASAL DIRECTED PRN 02/06/24 07/04/24 History Ipratropium-Albuterol Nebulize 3 ml INHALATION RT-Q4H PRN each 02/07/24 07/04/24 Rx [Duoneb 0.5 mg-3 mg/3 ml Soln] Diclofenac Sodium Gel [Voltaren 1% 1 applic TOPICAL QID PRN 05/14/24 07/04/24 History Gel] Furosemide [Lasix] 40 mg PO BID 07/04/24 07/04/24 History predniSONE 5 mg PO DAILY 07/04/24 07/04/24 History Allergies Allergy/AdvReac Type Severity Reaction Status Date / Time allopurinol AdvReac Gout Verified 05/14/24 09:55 atenolol AdvReac Fatigue,Bra Verified 05/14/24 09:55 dycardia doxazosin AdvReac Delerium,Di Verified 05/14/24 09:55 zziness hydralazine AdvReac Unknown Verified 05/16/24 13:26 lisinopril AdvReac Cough Verified 05/14/24 09:55 metoprolol [From Lopressor] AdvReac Chest Pain Verified 05/14/24 09:55 omalizumab [From Xolair] AdvReac urticaria Verified 05/14/24 09:55 Physical Exam Osteopathic Statement: *. No significant issues noted on an osteopathic structural exam other than those noted in the History and Physical/Consult. Vitals: Vital Signs Temp Pulse Pulse Resp BP BP Pulse Ox 07/05/24 08:39 112 H 07/05/24 08:32 97 07/05/24 08:25 98.1 F 118 H 104 H 14 115/79 97 07/05/24 04:00 97.6 F 94 14 131/84 95 07/05/24 00:00 97 16 127/82 94 L 07/04/24 23:55 102 H 07/04/24 23:46 102 H 07/04/24 20:11 105 H 07/04/24 20:02 100 07/04/24 20:00 97.7 F 92 16 134/87 93 L 07/04/24 16:47 97.5 F L 114 H 14 146/83 96 07/04/24 15:55 97.8 F 101 H 18 122/94 98 07/04/24 14:00 98.1 F 100 18 118/76 97 Intake and Output 07/04/24 07/05/24 07/05/24 22:59 06:59 14:59 Intake Total 304.167 480 Output Total 250 600 325 Balance 54.167 -600 155 Intake: Intake, IV Titration 64.167 Amount Heparin Sod,Pork in 0.45% 64.167 NaCl 25,000 unit In 0.45 % NaCl 1 250ml.bag @ 11. 9168 UNITS/KG/HR 10 mls/ hr IV .Q24H [facility] Rx#: [id number] Oral 240 480 Output: Urine 250 600 325 Other: Voiding Method Urinal Urinal Urinal Weight 83.915 kg No acute distress, oriented 3. The patient is currently on 2 L. No dev respiratory distress. No use of accessory muscles. HEENT examination is grossly unremarkable. Mucous membranes are moist. No oral lesions. Neck supple. Full range of motion. No adenopathy thyromegaly or neck vein distention. Cardiovascular examination reveals regular rhythm rate. S1-S2 normal. No S3 or S4. No discernible murmur noted. Heart sounds are distant. Lungs reveal bibasilar crackles. Scattered rhonchi. No wheezes. Breath sounds are equal bilaterally. Abdomen soft bowel sounds are heard. No masses or tenderness. Extremities are intact. No cyanosis or clubbing. Trace edema. Skin is without rash or lesion. Neurologic examination is brief but nonfocal. Results - Laboratory Findings CBC and BMP: 07/05/24 08:02 07/05/24 08:02 PT/INR, D-dimer PT 12.0 sec (10.0-12.5) 07/05/24 08:02 INR 1.1 (<1.2) 07/05/24 08:02 D-Dimer 3.21 mg/L FEU (<0.60) H 07/04/24 08:03 Abnormal lab findings: Abnormal Labs 07/03/24 07/03/24 07/03/24 19:53 19:53 22:34 WBC Hgb 12.5 L RDW 17.3 H Plt Count 77 L D Lymphocytes # 0.4 L ESR PT INR APTT D-Dimer BUN 53 H Creatinine 2.10 H Glucose 101 H Troponin I 0.047 H* C-Reactive Protein 07/04/24 07/04/24 07/04/24 08:03 08:03 08:03 WBC Hgb RDW Plt Count Lymphocytes # ESR 32 H PT INR APTT D-Dimer 3.21 H BUN Creatinine Glucose Troponin I C-Reactive Protein 1.9 H 07/04/24 07/04/24 07/04/24 08:03 12:16 12:16 WBC Hgb RDW Plt Count Lymphocytes # ESR PT 12.7 H INR 1.2 H APTT 31.6 H D-Dimer BUN Creatinine Glucose Troponin I 0.042 H* 0.037 H* C-Reactive Protein 07/04/24 07/04/24 07/05/24 17:39 23:58 08:02 WBC 3.5 L Hgb 12.9 L RDW 16.9 H Plt Count 72 L Lymphocytes # 0.5 L ESR PT INR APTT 39.0 H 40.8 H D-Dimer BUN Creatinine Glucose Troponin I C-Reactive Protein 07/05/24 08:02 WBC Hgb RDW Plt Count Lymphocytes # ESR PT INR APTT D-Dimer BUN 50 H Creatinine 2.10 H Glucose 121 H Troponin I C-Reactive Protein - Diagnostic Findings Chest x-ray: image reviewed Assessment and Plan Assessment: Shortness of breath, acute, likely multifactorial, in part related to COPD exacerbation, but also to congestive heart failure. History of moderate COPD with an FEV1 that is 59% of predicted. History of congestive heart failure, it was a recent admission between May 14 and May 16. History of implantation of permanent pacemaker. History of hypertension. Myocardial infarction. History of hepatitis C. Parotid gland cancer. Hepatocellular carcinoma. History of multiple medical problems and comorbidities. Plan: Plan dated July 05, 2024. The patient is seen in consultation, in room 357. He is resting comfortably in bed. He is on nasal O2 at 2 L. Saturations are in the mid 90s. The patient has a history of moderately severe COPD with an FEV1 that is 59% of predicted. His procalcitonin level was 0.2. His N-terminal proBNP was 9100. He had a vent ilation/perfusion lung scan that was low probability for pulmonary embolism. He was in the hospital between May 14 and May 16, 2024, with an episode of congestive heart failure. All labs, x-rays, and medications are reviewed. The patient's overall prognosis remains guarded. We will continue to follow. The patient continues on prednisone 5 mg a day, which is his daily dose, as well as updrafts, and Symbicort. Dictation was produced using [employer] dictation software. Please excuse any grammatical, word or spelling errors. Time with Patient: Greater than 30
[2024-07-05] MEDS: HYDROcodone/APAP 10-325MG 1 EACH TAB PO PRN (14:10)
--- NOTE | 2024-07-05 16:47 | CA ---
Transthoracic Echo Report Name: Chaitanya Morales Age: 74 Gender: M : 1950 Exam Date: 07/05/2024 09:49 Exam Location: [facility] Ht (in): 70 Wt (lb): 185 Ordering Physician: Larry Beard MD Attending/Referring Phys: Aging Room Operator Alexandrea Menard RDCS Procedure CPT: Indications: chf Cardiac Hx: Technical Quality: Good Contrast 1: Total Dose (mL): Contrast 2: Total Dose (mL): MEASUREMENTS (Male / Female) Normal Values 2D ECHO LV Diastolic Diameter PLAX 6.1 cm 4.2 - 5.9 / 3.9 - 5.3 cm LV Systolic Diameter PLAX 5.4 cm IVS Diastolic Thickness 1.9 cm 0.6 - 1.0 / 0.6 - 0.9 cm LVPW Diastolic Thickness 1.9 cm 0.6 - 1.0 / 0.6 - 0.9 cm LV Relative Wall Thickness 0.6 RV Internal Dim ED PLAX 3.8 cm LVOT Diameter 2.5 cm LA Systolic Diameter LX 5.5 cm 3.0 - 4.0 / 2.7 - 3.8 cm LV Diastolic Volume MOD BP 133.9 cm??? 67 - 155 / 56 - 104 cm??? LV Systolic Volume MOD BP 77.0 cm??? - / 19 - 49 cm??? LV Ejection Fraction MOD BP 42.5 % >= 55 % LV Cardiac Index MOD BP 3165.6 cm???/min???m??? LV Diastolic Volume MOD 4C 153.0 cm??? LV Systolic Volume MOD 4C 90.2 cm??? LV Ejection Fraction MOD 4C 41.0 % LV Cardiac Index MOD 4C 3492.2 cm???/min???m??? LV Diastolic Length 4C 7.7 cm LV Systolic Length 4C 8.0 cm LV Diastolic Volume MOD 2C 112.2 cm??? LV Systolic Volume MOD 2C 65.8 cm??? LV Ejection Fraction MOD 2C 41.4 % LV Cardiac Index MOD 2C 2583.4 cm???/min???m??? LV Diastolic Length 2C 8.1 cm LV Systolic Length 2C 7.9 cm LA Volume 174.1 cm??? 18 - 58 / 22 - 52 cm??? LA Volume Index 85.0 cm???/m??? 16 - 28 cm???/m??? M-MODE Aortic Root Diameter MM 4.1 cm DOPPLER AV Peak Velocity 330.7 cm/s AV Peak Gradient 43.8 mmHg AV Mean Velocity 227.7 cm/s AV Mean Gradient 23.8 mmHg AV Velocity Time Integral 63.7 cm LVOT Peak Velocity 109.4 cm/s LVOT Peak Gradient 4.8 mmHg LVOT Velocity Time Integral 25.1 cm LVOT Stroke Volume 123.0 cm??? LVOT Stroke Volume Index 60.9 ml/m??? LVOT Cardiac Index 6843.5 cm???/min???m??? AV Area Cont Eq vti 1.9 cm??? AV Area Cont Eq pk 1.6 cm??? MV Area PHT 4.9 cm??? MV Deceleration Time 189.3 ms TR Peak Velocity 271.9 cm/s TR Peak Gradient 29.6 mmHg Right Ventricular Systolic Press 34.5 mmHg FINDINGS Left Ventricle Left ventricular ejection fraction is estimated at 35-40 %. Severely increased septal wall thickness. Mildly increased left ventricular diastolic diameter. Moderately increased left ventricular systolic volume. Moderately decreased left ventricular ejection fraction. Normal left ventricular diastolic filling pattern. Right Ventricle Moderate right ventricular dilatation. Mild pulmonary hypertension. Right Atrium Right atrial dilatation. No right atrial thrombus or mass seen. Left Atrium Severely increased left atrial diameter. Severely increased left atrial volume. Moderately increased left atrial area. No left atrial thrombus or mass present. Mitral Valve Structurally normal mitral valve. Trace to mild mitral regurgitation. No evidence for mitral valve prolapse. No mitral regurgitation. Aortic Valve Diffuse thickening of the aortic valve cusps with reduced excursion. Moderate aortic stenosis with a peak gradient of 44 mmHg and a mean gradient of 24 mmHg.mild aortic regurgitation. Mild aortic regurgitation. Tricuspid Valve Structurally normal tricuspid valve. Mild tricuspid regurgitation. Pulmonic Valve Structurally normal pulmonic valve. No pulmonic regurgitation. Pericardium No pericardial effusion. Aorta Mild aortic dilatation at the level of the sinuses of valsalva 41 mm CONCLUSIONS Impaired LV function with EF between 35 to 40% Aortic sclerosis with moderate stenosis Previewed by: Dr. Luis Holly MD (Electronically Signed) Final Date: 05 July 2024 16:46
[2024-07-05] MEDS: ALPRAZolam 0.25 MG TAB PO PRN (19:47)
[2024-07-05] MEDS ORDERED: NON FORMULARY DRUG (Tiotropium 2.5 Mcg/Puff 10 PUFF Each) INHALATION SCH (20:00)
[2024-07-05] MEDS: SYMBICORT 160-4.5 MCG INHALER INHALATION SCH (20:27)
[2024-07-06 06:38] LABS: Anisocytosis Slight; Basophils % (A) 1 %; Eosinophils # (A) 0.1 k/uL (0-0.7); Eosinophils % (A) 6 %; HCT 37.7 % (39.0-53.0); HGB 11.4 gm/dL (13.0-17.5); Hypochromasia Slight; Lymphocytes # (A) 0.4 k/uL (1.0-4.8); Lymphocytes % (A) 20 %; MCH 25.9 pg (25.0-35.0); MCHC 30.3 g/dL (31.0-37.0); MCV 85.7 fL (80.0-100.0); Mean Platelet Volume 10.1; Monocytes # (A) 0.1 k/uL (0-1.0); Monocytes % (A) 6 %; Neutrophils # (A) 1.3 k/uL (1.3-7.7); Neutrophils % (A) 66 %; RDW 17.1 % (11.5-15.5)
[2024-07-06 06:44] LABS: Platelet Count 57 k/uL (150-450)
[2024-07-06 07:00] LABS: ALT 15 U/L (4-49); AST 27 U/L (17-59); African American GFR (CKD) 33 (>60 ml/min/1.73 sqM); Albumin 3.7 g/dL (3.5-5.0); Alkaline Phosphatase 81 U/L (38-126); Anion Gap 8 mmol/L; Blood Urea Nitrogen 49 mg/dL (9-20); Carbon Dioxide 27 mmol/L (22-30); Chloride 102 mmol/L (98-107); Glucose 96 mg/dL (74-99); Non-African American GFR(CKD) 28 (>60 ml/min/1.73 sqM); Potassium 3.7 mmol/L (3.5-5.1); Sodium 137 mmol/L (137-145); Total Bilirubin 0.9 mg/dL (0.2-1.3); Total Protein 6.6 g/dL (6.3-8.2)
--- NOTE | 2024-07-06 15:11 | P.PN ---
Subjective Progress Note Date: 07/06/24 The patient is a pleasant 74-year-old gentleman who is known to our service from before with a past medical history significant for valvular heart disease with known aortic stenosis and regurgitation as well as mitral regurgitation based on echo was performed in 2023 with a preserved LV systolic function as well as history of paroxysmal atrial fibrillation for some reasons not on any oral anticoagulation as well as permanent pacemaker implantation which was dual- chamber pacemaker and also heart failure with preserved ejection fraction and chronic kidney disease as well as multiple comorbid conditions. He presented to the hospital with progressive exertional dyspnea and bilateral lower extremities edema with no symptoms of chest pain or chest discomfort or dizziness or lightheadedness or presyncope or syncope. He was treated as an outpatient with increasing the dose of oral diuretics with no improvement and for that reason he decided to come to the hospital for further evaluation. He underwent further workup including chest x-ray came to be unremarkable overall and NT proBNP came in to be elevated significantly. The EKG initially showed A-fib with RVR but subsequent EKG showed atrial paced rhythm. He was started on Lasix IV with improvement in his symptoms overall. The first set of troponin came to be slightly abnormal. He underwent a heart catheterization in 2022 showed normal coronaries. He is in acute on chronic renal failure at this point. An echocardiogram was performed and still pending. The physical examination is remarkable for regular rhythm with a systolic and diastolic murmur at the right and left upper sternal border with diminished breathing sounds bilaterally and bilateral expiratory wheezing along with mild to moderate bilateral lower extremities edema July 05, 2024 The patient was seen and evaluated this morning. He continues to have shortness of breath which has not improved compared to before with no pain in the chest and no other cardiovascular symptoms. Hemodynamically he is stable. The echo still pending. He is on heparin IV which we will continue at this point till we have the results of the echo to rule out any cardiomyopathy needed an invasive workup. The physical examination is remarkable for a systolic and diastolic murmur at the right and left upper sternal border along with bilateral rhonchi. 07/06/2024 Patient is seen and examined at bedside. He continues to report that he is having shortness of breath. He denies any chest pain chest pressure however. BP 143/92, heart rate 97 bpm. Underlying rhythm being atrial fibrillation on telemetry. Intermittent PVCs. On exam Irregularly irregular pulse, systolic murmur audible, Mild crackles and mild wheezing noticed in bilateral lungs. Abdominal is distended, nontender 1+ pitting edema bilateral lower extremity Assessment Acute HFrEF exacerbation Cardiomyopathy with new worsening LVEF of 35 to 40% Persistent atrial fibrillation Status post PPM for tachybradycardia syndrome Moderate aortic stenosis, moderate aortic regurgitation, moderate mitral regurgitation CKD stage IIIb Pancytopenia History of hepatitis C and hepatocellular carcinoma with splenomegaly Multiple comorbid conditions including Plan Discontinue heparin. Start Eliquis 2.5 mg twice daily. Low-dose because of anemia and poor kidney function and thrombocytopenia Add Lipitor 20 mg, Farxiga 5 mg Continue Lasix 20 mg IV twice daily Increase metoprolol to 50 mg twice daily Start hydralazine 25 mg 3 times daily and Imdur 15 mg daily for heart failure GDMT Obtain abdominal ultrasound to see if there is any complaint of ascites and fluid collection. At this time patient is a poor candidate for heart catheterization considering his CKD, pancytopenia. He had a heart cath in 2022 which showed 30% disease in LAD with moderate aortic stenosis. Overall prognosis is guarded Objective - Vital Signs Vital signs: Vital Signs Temp 97.9 F 07/06/24 08:55 Pulse 78 07/06/24 11:35 Resp 17 07/06/24 13:16 BP 145/95 07/06/24 11:35 Pulse Ox 94 L 07/06/24 11:35 FiO2 Intake & Output 07/05/24 07/06/24 07/06/24 18:59 06:59 18:59 Intake Total 1025.833 230.736 240 Output Total 1025 875 Balance 0.833 -644.264 240 Weight 84.6 kg Intake: Intake, IV Titration 185.833 230.736 Amount Heparin Sod,Pork in 0.45% 185.833 230.736 NaCl 25,000 unit In 0.45 % NaCl 1 250ml.bag @ 11. 9168 UNITS/KG/HR 10 mls/ hr IV .Q24H [facility] Rx#: [id number] Oral 840 240 Output: Urine 1025 875 Other: Voiding Method Urinal Urinal Urinal - Labs CBC & Chem 7: 07/06/24 05:48 07/06/24 05:48 Labs: Abnormal Lab Results - Last 24 Hours (Table) 07/06/24 07/06/2425 Range/Units 00:04 05:48 05:48 WBC 2.0 L (3.8-10.6) k/uL Hgb 11.4 L (13.0-17.5) gm/dL Hct 37.7 L (39.0-53.0) % MCHC 30.3 L (31.0-37.0) g/dL RDW 17.1 H (11.5-15.5) % Plt Count 57 L (150-450) k/uL Lymphocytes # 0.4 L (1.0-4.8) k/uL APTT 44.1 H (22.0-30.0) sec BUN 49 H (9-20) mg/dL Creatinine 2.23 H (0.66-1.25) mg/dL
--- NOTE | 2024-07-06 15:41 | P.PN ---
Subjective Progress Note Date: 07/06/24 74-year-old male seen in the emergency department, on July 03, 2024. The patient presented with shortness of breath, cough, and congestion. The patient states that the symptoms have been present for about a day or so prior to admission, getting worse. He states he could not catch his breath. The patient was recently in the hospital, between May 14 and May 16, with a similar episode. On this admission, he was admitted with a diagnosis of COPD exacerbation, and CHF. We were just consulted this morning. The patient does have COPD, with an FEV1 that is 59% of predicted. He sees one of my partners in the office. Current laboratory data includes a white count 3.5, hemoglobin 12.9, hematocrit 40.6, and platelet count 72,000. Sodium 138, potassium 3.8, chlorides 101, CO2 25, anion gap 12, BUN 50, creatinine 2.10. Glucose is 121. Troponins were 0.042 and 0.037. Procalcitonin level was normal at 0.20. A ventilation/perfusion lung scan was low probability for pulmonary embolism. Chest x-ray showed bibasilar opacities, consistent with possible pneumonia versus atypical edema. On 07/06/2024, the patient is being seen for a follow-up. This is another hospitalization for this patient for worsening shortness of breath and this is essentially thought to be related to decompensated heart failure. The patient has multiple comorbidities. The patient is known to have chronic CHF and echocardiogram was repeated during this current admission on 07/05/2024 and the patient was found to have impaired LV function with an EF of around 35 to 40% in addition to moderate aortic stenosis. The patient also has chronic liver disease, liver cirrhosis, previous history of hepatocellular carcinoma that has been surgically resected, chronic stage III kidney disease and pancytopenia re lated to chronic liver disease. The patient is currently calm and comfortable. On 2 L of oxygen by nasal cannula. The white cell count is at 2 with a hemoglobin 11.4 and a platelet count of 57. Sodium levels at 137, BUN is 49 with a creatinine of 2.23. Remains on DuoNeb nebulized treatments yevgeniy [id number]. Remains on Symbicort. Remains on Spiriva. Long-term anticoagulation with Eliquis 2.5 mg twice a day. Lasix 20 mg IV every 12 hours in addition to Toprol-XL and Farxiga.Chest x-ray was also reviewed from the current admission and the patient has bibasilar atelectatic changes and vascular congestion and cardiomegaly. The VQ scan that was completed on 07/04/2024 came back as of a low probability. Objective - Vital Signs Vital signs: Vital Signs Temp 97.9 F 07/06/24 08:55 Pulse 100 07/06/24 08:55 Resp 17 07/06/24 08:55 BP 143/92 07/06/24 08:55 Pulse Ox 97 07/06/24 08:55 FiO2 Intake & Output 07/05/24 07/06/24 07/06/24 18:59 06:59 18:59 Intake Total 1025.833 230.736 120 Output Total 1025 875 Balance 0.833 -644.264 120 Weight 84.6 kg Intake: Intake, IV Titration 185.833 230.736 Amount Heparin Sod,Pork in 0.45% 185.833 230.736 NaCl 25,000 unit In 0.45 % NaCl 1 250ml.bag @ 11. 9168 UNITS/KG/HR 10 mls/ hr IV .Q24H [facility] Rx#: [id number] Oral 840 120 Output: Urine 1025 875 Other: Voiding Method Urinal Urinal Urinal - Exam No acute distress, oriented 3. The patient is currently on 3 L. No dev respiratory distress. No use of accessory muscles. HEENT examination is grossly unremarkable. Mucous membranes are moist. No oral lesions. Neck supple. Full range of motion. No adenopathy thyromegaly or neck vein distention. Cardiovascular examination reveals regular rhythm rate. S1-S2 normal. No S3 or S4. Systolic ejection murmur grade 3/6 heard over the apex and left lateral sternal border. Heart sounds are distant. Lungs reveal bibasilar crackles. Scattered rhonchi. No wheezes. Breath sounds are equal bilaterally. Abdomen soft bowel sounds are heard. No masses or tenderness. Extremities are intact. No cyanosis or clubbing. Trace edema. Skin is without rash or lesion. Neurologic examination is brief but nonfocal. - Labs CBC & Chem 7: 07/06/24 05:48 07/06/24 05:48 Labs: Abnormal Lab Results - Last 24 Hours (Table) 07/06/24 07/06/24 07/06/24 Range/Units 00:04 05:48 05:48 WBC 2.0 L (3.8-10.6) k/uL Hgb 11.4 L (13.0-17.5) gm/dL Hct 37.7 L (39.0-53.0) % MCHC 30.3 L (31.0-37.0) g/dL RDW 17.1 H (11.5-15.5) % Plt Count 57 L (150-450) k/uL Lymphocytes # 0.4 L (1.0-4.8) k/uL APTT 44.1 H (22.0-30.0) sec BUN 49 H (9-20) mg/dL Creatinine 2.23 H (0.66-1.25) mg/dL Assessment and Plan Plan: Acute on top of chronic shortness of breath, predominantly related to congestion heart failure although the patient has a underlying component of COPD in addition. Chest x-ray showed increased pulm vessel congestion. proBNP level was 9100 and the echocardiogram showed impaired LV function with an ejection fraction of 35 to 40%, with moderate degree of aortic valve stenosis. He also has mild aortic dilatation at the level of the root measuring 41 mm in size. He has moderate RV dilatation, mild pulmonary hypertension. Moderately severe aortic stenosis Acute hypoxic respiratory failure, currently on oxygen which is running at 3 L/min nasal cannula Chronic atrial fibrillation, controlled rate, maintained on anticoagulation with Eliquis History of moderate COPD with an FEV1 that is 59% of predicted. Ongoing chronic kidney disease with a component of acute kidney injury. The patient has chronic stage III kidney disease and the creatinine is on the rise, this morning is at 2.2. Abnormal trop I elevation, likely type II myocardial ischemia History of congestive heart failure, it was a recent admission between May 14 and May 16. History of implantation of permanent pacemaker. History of hypertension. Myocardial infarction. History of hepatitis C. 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 Hepatocellular carcinoma. History of multiple medical problems and comorbidities. Plan: Titrate oxygen flow to maintain saturation above 90% VQ scan was of a low probability Continue IV Lasix monitoring renal function closely Continue Toprol and Farxiga Anticoagulation with Eliquis No need for antibiotic coverage at this point Monitor hematologic profile Obtain a noncontrast CAT scan of the chest Will continue to follow Time with Patient: Greater than 30
[2024-07-06] MEDS: amLODIPine 5 MG TAB PO SCH (15:56)
--- NOTE | 2024-07-06 16:03 | P.PN ---
Subjective Progress Note Date: 07/06/24 Interval History: patient 74-year-old gentleman with past medical history significant hypertension, paroxysmal atrial fibrillation, moderate to severe aortic stenosis, chronic kidney disease,presented the ER because of shortness of breath that started 1 day back. Patient stated that he was all right yesterday morning when around 5 AM he woke up and was exercising when he started noticing that he was getting short of breath. Shortness of breath was present on rest as well as exertion. Patient stated he was unable to take deep breaths. There was no complaint of any chest pain. Patient patient was also complaining of palpitation . There was no complaint of fever or chill. Patient denies any co ugh. There was no complaint of swelling of lower extremities. Patient recently saw his explosive operator bomb and was supposed to get an echo in outpatient settings. Patient also saw his package liner recently. Patient took some extra dose of diuretic but that did not help. Because of his worsening shortness of breath patient came to the ER. Initial lab work done in the ER showed WBC 4, hemoglobin 9.5, platelet count 77, sodium 139, potassium 3.9, BUN 53, creatinine 2.10 glucose 101 troponin 0.047, p roBNP 9100 Influenza A not detected Influenza B not detected RSV not detected COVID-19 not detected EKG done in the ER showed heart rate of 71, electronic atrial pacemaker Chest x-ray done in the ER showed bibasilar airspace opacities in lateral view correlate for pneumonia Patient admitted to internal medicine service 07/05. Patient seen and examined. Stated he is still short of breath, gets ea sily winded on exertion. Currently on 4 L of oxygen 07/06--patient was seen and examined today. Complains of shortness of breath. Afebrile, heart rate 78, respiratory rate 17, blood pressure 145/95, saturating 94% on 3 L. Echocardiogram showed EF 35 to 40%, moderate aortic stenosis, moderate TR, moderate MR. WBCs 2.0, hemoglobin 11.4, platelet 57. Creatinine trending up 2.23. Assessment and plan: Acute on chronic systolic CHF: Cardiomyopathy with worsening EF 35 to 40% Tachybradycardia syndrome status post PPM Moderate aortic stenosis, moderate AR, moderate MR Elevated troponin: Demand ischemia Hypertension Presented with shortness of breath proBNP more than 9000 Chest x-ray showed bibasilar airspace opacities Monitor daily weight and I&O's, cardiac diet IV diuresis Echocardiogram showed new worsening LVEF of 35 to 40% Cardiology consulted and following--statin, SGLT2 inhibitor, metoprolol, hydralazine, Imdur Poor candidate for CAR-T catheterization due to CKD, pancytopenia, LHC in 2022 showed 30% disease in the LAD with moderate aortic stenosis. Ultrasound abdomen to rule out ascites. 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 Continue same treatment. Further recommendations as per clinical course of the patient PHYSICAL EXAMINATION: GENERAL: The patient is A&O x3, NAD HEENT: EOMI, Sclerae anicteric, Moist Mucous membranes Neck: Supple, Non tender, No JVD PULMONARY: Equal breath souds B/L, No wheezing, +crackles. CARDIOVASCULAR: S1, S2 present. No murmurs, rubs, or gallops. ABDOMEN: Soft, nontender, nondistended, normoactive bowel sounds. No guarding or rebound tenderness. MUSCULOSKELETAL: + edema, No cyanosis. No clubbing. Normal ROM. Intact peripheral pulses. NEUROLOGICAL: CN 2-12 grossly intact. No FND Skin: No Rash REVIEW OF SYSTEMS: CONSTITUTIONAL: No fever or chills. CARDIOVASCULAR: No chest pain, palpitations or syncope. PULMONARY: Complains of shortness of breath. GASTROINTESTINAL: No nausea, vomiting, diarrhea, abdominal pain. : No Dysuria, urgency, frequency. Extremities: No edema. NEUROLOGICAL: No headaches, no weakness, or numbness Dictation was produced using [employer] dictation software. please excuse any grammatical, word or spelling errors. Objective - Vital Signs Vital signs: Vital Signs Temp 97.9 F 07/06/24 08:55 Pulse 78 07/06/24 11:35 Resp 17 07/06/24 13:16 BP 145/95 07/06/24 11:35 Pulse Ox 94 L 07/06/24 11:35 FiO2 Intake & Output 07/05/24 07/06/24 07/06/24 18:59 06:59 18:59 Intake Total 1025.833 230.736 240 Output Total 1025 875 200 Balance 0.833 -644.264 40 Weight 84.6 kg Intake: Intake, IV Titration 185.833 230.736 Amount Heparin Sod,Pork in 0.45% 185.833 230.736 NaCl 25,000 unit In 0.45 % NaCl 1 250ml.bag @ 11. 9168 UNITS/KG/HR 10 mls/ hr IV .Q24H [facility] Rx#: [id number] Oral 840 240 Output: Urine 1025 875 200 Other: Voiding Method Urinal Urinal Urinal - Labs CBC & Chem 7: 07/06/24 05:48 07/06/24 05:48 Labs: Abnormal Lab Results - Last 24 Hours (Table) 07/06/24 07/06/24 07/06/24 Range/Units 00:04 05:48 05:48 WBC 2.0 L (3.8-10.6) k/uL Hgb 11.4 L (13.0-17.5) gm/dL Hct 37.7 L (39.0-53.0) % MCHC 30.3 L (31.0-37.0) g/dL RDW 17.1 H (11.5-15.5) % Plt Count 57 L (150-450) k/uL Lymphocytes # 0.4 L (1.0-4.8) k/uL APTT 44.1 H (22.0-30.0) sec BUN 49 H (9-20) mg/dL Creatinine 2.23 H (0.66-1.25) mg/dL
[2024-07-06] MEDS: APIXABAN 2.5 MG TABLET PO SCH (16:19)
--- NOTE | 2024-07-06 17:51 | CT ---
EXAMINATION TYPE: CT chest wo con DATE OF EXAM: 07/06/2024 5:31 PM COMPARISON: 06/07/2023 CLINICAL INDICATION: Male, 74 years old with history of hypoxia; PHH, Hypoxia. TECHNIQUE: Multiple axial images were obtained through the chest. Sagittal and coronal reformats were created for review. MIP was performed on a separate workstation. Contrast used: mL of (None if empty) Oral contrast used: (None if empty) CT DLP: 422.1 mGycm, Automated exposure control for dose reduction was used. FINDINGS: LUNGS/ PLEURA: No focal consolidation, pneumothorax or pleural effusion. Mild centrilobular emphysema changes. Scattered airspace opacities in left lung base with trace left pleural effusion. Atelectasi s changes along the left major fissure. 12 mm nodular-like area in the left lung base laterally. AIRWAY: Patent and unremarkable. HEART: Cardiomegaly is demonstrated with dilation of the left atrium and left ventricle.r.Cardiac con duction leads terminating in the right ventricle and atrium. Severe aortic valve calcifications Mild coronary artery calcifications present. MEDIASTINUM: No gross evidence of adenopathy. VASCULATURE: No aortic aneurysm. Tortuous aorta throughout the thorax. MUSCULOSKELETAL: No acute osseous abnormalities, left rotator cuff repair changes. T8 vertebral body hemangioma. SOFT TISSUES/LYMPH NODES: Unremarkable. LOWER NECK: No significant findings. UPPER ABDOMEN: With nodular shrunken contour morphology to the liver. Enlarged spleen measuring up to 19.3 cm. Left adrenal nodule measuring 14 mm and Hounsfield units which are indeterminate at 24. IMPRESSION: 1. Severe aortic valve calcifications with cardiomegaly. Consider echo for ejection fraction evaluat ion. 2. Scattered airspace opacities within the left lower lobe correlate for pneumonia. 3. Left lower lobe lateral 12 mm nodule this was an area of consolidation on prior exam in 06/07/2023. This could represent atelectasis changes. Short-term follow-up in 3 months recommended 4. Mild coronary artery calcifications.. 5. Mild emphysema. 6. Hepatic cirrhosis with evidence of portal hypertension. Follow up recommendations for incidental pulmonary nodules, if there are any, are per [employer] or [employer]. https://radiopaedia.org/articles/pgytormrul-vttwxat-swztxjkgz-[email or web address]?lang=us [facility], , 07/06/2024 5:48 PM
[2024-07-06] MEDS: ATORVASTATIN 20 MG TAB PO SCH (20:11)
[2024-07-06] MEDS: METOPROLOL SUCCINATE (ER) 50 MG TAB.ER.24H PO SCH (20:11)
[2024-07-06] MEDS ORDERED: APIXABAN 2.5 MG TABLET PO SCH (21:00)
[2024-07-07 07:40] LABS: Anisocytosis Slight; Basophils % (A) 1 %; Eosinophils # (A) 0.2 k/uL (0-0.7); Eosinophils % (A) 9 %; HCT 38.1 % (39.0-53.0); HGB 11.7 gm/dL (13.0-17.5); Hypochromasia Slight; Lymphocytes # (A) 0.4 k/uL (1.0-4.8); Lymphocytes % (A) 19 %; MCH 26.4 pg (25.0-35.0); MCHC 30.7 g/dL (31.0-37.0); Mean Platelet Volume 9.3; Monocytes # (A) 0.1 k/uL (0-1.0); Monocytes % (A) 6 %; Neutrophils # (A) 1.4 k/uL (1.3-7.7); Neutrophils % (A) 65 %; RBC 4.43 m/uL (4.30-5.90); RDW 17.2 % (11.5-15.5); WBC 2.1 k/uL (3.8-10.6)
[2024-07-07 07:43] LABS: African American GFR (CKD) 30 (>60 ml/min/1.73 sqM); Anion Gap 11 mmol/L; Blood Urea Nitrogen 48 mg/dL (9-20); Calcium 9.1 mg/dL (8.4-10.2); Carbon Dioxide 26 mmol/L (22-30); Chloride 102 mmol/L (98-107); Glucose 119 mg/dL (74-99); Non-African American GFR(CKD) 26 (>60 ml/min/1.73 sqM); Platelet Count 79 k/uL (150-450); Potassium 4.1 mmol/L (3.5-5.1); Sodium 139 mmol/L (137-145)
--- NOTE | 2024-07-07 08:21 | US ---
EXAMINATION TYPE: US abdomen complete DATE OF EXAM: 07/07/2024 COMPARISON: NONE CLINICAL INDICATION: Male, 74 years old with history of Abdominal pain, elevated LFTs; Elevated LFTS has Hep C cirrhosis had a liver ablation done. Hx of enlarged spleen and liver. TECHNIQUE: Grayscale and color Doppler imaging of the abdomen was performed. FINDINGS: EXAM MEASUREMENTS: Liver Length: 20 cm Gallbladder Wall: .2 cm CBD: .5 cm, color Doppler imaging was utilized to isolate the common bile duct for measurement. Spleen: 22.5 cm Right Kidney: 10.4 x 5.1 x 4.6 cm Left Kidney: 11.6 x 5.1 x 4.8 cm ELECTRONIC TECH NOTES: Pancreas: Obscured by bowel gas Liver: Hepatomegaly increased attenuation. Gallbladder: No stones seen Evidence for sonographic Carrion's sign: No CBD: wnl Spleen: Splenomegaly Right Kidney: Multiple cystic areas seen largest upper pole 2.1 cm. Left Kidney: Multiple cystic areas seen largest lower pole 2.8 x 1.9 x 2.0 cm. Upper IVC: wnl Abd Aorta:AAA visualized Mid 3.3 x 3.7 cm Distal 3.7 x 2.7cm. IMPRESSION: 1. No evidence for acute process. 2. Hepatomegaly with hepatic steatosis. 3. Splenomegaly. 4. Bilateral simple appearing renal cysts and bilateral renal cortical thinning. 5. Abdominal aortic dilation up to 2.7 cm further evaluation with vascular surgical consultation for management recommended. [facility], , 07/07/2024 8:19 AM
[2024-07-07] MEDS: DAPAGLIFLOZIN PROPANEDIOL 5 MG TABLET PO SCH (08:57)
--- NOTE | 2024-07-07 13:03 | P.PN ---
Subjective Interval History: patient 74-year-old gentleman with past medical history significant hypertension, paroxysmal atrial fibrillation, moderate to severe aortic stenosis, chronic kidney disease,presented the ER because of shortness of breath that started 1 day back. Patient stated that he was all right yesterday morning when around 5 AM he woke up and was exercising when he started noticing that he was getting short of breath. Shortness of breath was present on rest as well as exertion. Patient stated he was unable to take deep breaths. There was no complaint of any chest pain. Patient patient was also complaining of palpitation . There was no complaint of fever or chill. Patient denies any cough. There was no complaint of swelling of lower extremities. Patient recently saw his peoplesoft administrator and was supposed to get an echo in outpatient settings. Patient also saw his gun welder recently. Patient took some extra dose of diuretic but that did not help. Because of his worsening shortness of breath patient came to the ER. Initial lab work done in the ER showed WBC 4, hemoglobin 9.5, platelet count 77, sodium 139, potassium 3.9, BUN 53, creatinine 2.10 glucose 101 troponin 0.047, proBNP 9100 Influenza A not detected Influenza B not detected RSV not detected COVID-19 not detected EKG done in the ER showed heart rate of 71, electronic atrial pacemaker Chest x-ray done in the ER showed bibasilar airspace opacities in lateral view correlate for pneumonia Patient admitted to internal medicine service 07/05. Patient seen and examined. Stated he is still short of breath, gets easily winded on exertion. Currently on 4 L of oxygen 07/06--patient was seen and examined today. Complains of shortness of breath. Afebrile, heart rate 78, respiratory rate 17, blood pressure 145/95, saturating 94% on 3 L. Echocardiogram showed EF 35 to 40%, moderate aortic stenosis, moderate TR, moderate MR. WBCs 2.0, hemoglobin 11.4, platelet 57. Creatinine trending up 2.23. 4/1patient was seen and examined today. Continues complain of shortness of breath, saturating 95% on 3 L. Afebrile, heart rate 91, respiratory rate 18, blood pressure 149/77. WBCs 2.1, hemoglobin 11.7, platelet 79. BUN 48, creatinine 2.41 uptrending as compared to 2.23 yesterday. Cardiology following. IV Lasix changed to p.o. Lasix. Assessment and plan: Acute on chronic systolic CHF: Cardiomyopathy with worsening EF 35 to 40% Tachybradycardia syndrome status post PPM Moderate aortic stenosis, moderate AR, moderate MR Elevated troponin: Demand ischemia Hypertension Presented with shortness of breath proBNP more than 9000 Chest x-ray showed bibasilar airspace opacities Monitor daily weight and I&O's, cardiac diet IV diuresis Echocardiogram showed new worsening LVEF of 35 to 40% Cardiology consulted and following--statin, SGLT2 inhibitor, metoprolol, hydralazine, Imdur Poor candidate for CAR-T catheterization due to CKD, pancytopenia, LHC in 2022 showed 30% disease in the LAD with moderate aortic stenosis. Ultrasound abdomen to rule out ascites. Persistent atrial fibrillation: Discontinued heparin, started on Eliquis 2.5 mg twice daily, low-dose due to anemia, poor kidney function and thrombocytopenia Metoprolol COPD: Uses 2 L oxygen nightly Continue bronchodilator protocol Pulmonary consulted appreciate recs. VQ scan showed low probability of PE. [place] on CKD: Received IV diuresis, now changed to p.o. Lasix. 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 Continue same treatment. Further recommendations as per clinical course of the patient PHYSICAL EXAMINATION: GENERAL: The patient is A&O x3, NAD HEENT: EOMI, Sclerae anicteric, Moist Mucous membranes Neck: Supple, Non tender, No JVD PULMONARY: Equal breath souds B/L, No wheezing, +crackles. CARDIOVASCULAR: S1, S2 present. No murmurs, rubs, or gallops. ABDOMEN: Soft, nontender, nondistended, normoactive bowel sounds. No guarding or rebound tenderness. MUSCULOSKELETAL: + edema, No cyanosis. No clubbing. Normal ROM. Intact peripheral pulses. NEUROLOGICAL: CN 2-12 grossly intact. No FND Skin: No Rash REVIEW OF SYSTEMS: CONSTITUTIONAL: No fever or chills. CARDIOVASCULAR: No chest pain, palpitations or syncope. PULMONARY: Complains of shortness of breath. GASTROINTESTINAL: No nausea, vomiting, diarrhea, abdominal pain. : No Dysuria, urgency, frequency. Extremities: No edema. NEUROLOGICAL: No headaches, no weakness, or numbness Dictation was produced using [employer] dictation software. please excuse any grammatical, word or spelling errors. Objective - Vital Signs Vital signs: Vital Signs Temp 97.4 F L 07/07/24 12:00 Pulse 91 07/07/24 12:00 Resp 18 07/07/24 12:00 BP 149/77 07/07/24 12:00 Pulse Ox 96 07/07/24 12:00 FiO2 Intake & Output 07/06/24 07/07/24 07/07/24 18:59 06:59 18:59 Intake Total 240 120 10 Output Total 900 200 Balance -660 -80 10 Weight 84.3 kg Intake: IV 10 Invasive Line 1 10 Oral 240 120 Output: Urine 900 200 Other: Voiding Method Urinal Urinal Urinal # Voids 1 - Labs CBC & Chem 7: 07/07/24 06:57 07/07/24 06:57 Labs: Abnormal Lab Results - Last 24 Hours (Table) 07/07/24 07/07/24 Range/Units 06:57 06:57 WBC 2.1 L (3.8-10.6) k/uL Hgb 11.7 L (13.0-17.5) gm/dL Hct 38.1 L (39.0-53.0) % MCHC 30.7 L (31.0-37.0) g/dL RDW 17.2 H (11.5-15.5) % Plt Count 79 L (150-450) k/uL Lymphocytes # 0.4 L (1.0-4.8) k/uL BUN 48 H (9-20) mg/dL Creatinine 2.41 H (0.66-1.25) mg/dL Glucose 119 H (74-99) mg/dL
--- NOTE | 2024-07-07 13:22 | P.PN ---
Subjective Progress Note Date: 07/07/24 The patient is a pleasant 74-year-old gentleman who is known to our service from before with a past medical history significant for valvular heart disease with known aortic stenosis and regurgitation as well as mitral regurgitation based on echo was performed in 2023 with a preserved LV systolic function as well as history of paroxysmal atrial fibrillation for some reasons not on any oral anticoagulation as well as permanent pacemaker implantation which was dual- chamber pacemaker and also heart failure with preserved ejection fraction and chronic kidney disease as well as multiple comorbid conditions. He presented to the hospital with progressive exertional dyspnea and bilateral lower extremities edema with no symptoms of chest pain or chest discomfort or dizziness or lightheadedness or presyncope or syncope. He was treated as an outpatient with increasing the dose of oral diuretics with no improvement and for that reason he decided to come to the hospital for further evaluation. He underwent further workup including chest x-ray came to be unremarkable overall and NT proBNP came in to be elevated significantly. The EKG initially showed A-fib with RVR but subsequent EKG showed atrial paced rhythm. He was started on Lasix IV with improvement in his symptoms overall. The first set of troponin came to be slightly abnormal. He underwent a heart catheterization in 2022 showed normal coronaries. He is in acute on chronic renal failure at this point. An echocardiogram was performed and still pending. The physical examination is remarkable for regular rhythm with a systolic and diastolic murmur at the right and left upper sternal border with diminished breathing sounds bilaterally and bilateral expiratory wheezing along with mild to moderate bilateral lower extremities edema July 05, 2024 The patient was seen and evaluated this morning. He continues to have shortness of breath which has not improved compared to before with no pain in the chest and no other cardiovascular symptoms. Hemodynamically he is stable. The echo still pending. He is on heparin IV which we will continue at this point till we have the results of the echo to rule out any cardiomyopathy needed an invasive workup. The physical examination is remarkable for a systolic and diastolic murmur at the right and left upper sternal border along with bilateral rhonchi. 07/06/2024 Patient is seen and examined at bedside. He continues to report that he is having shortness of breath. He denies any chest pain chest pressure however. BP 143/92, heart rate 97 bpm. Underlying rhythm being atrial fibrillation on telemetry. Intermittent PVCs. 07/07/2024 Seen and examined at bedside this a.m. Reports shortness of breath is better since the time of admission BP 126/76, heart rate 76 bpm, Underlying rhythm is atrial fibrillation with intermittent PACs and intermittent paced rhythm. Creatinine 2.4. On admission 2.1. Baseline creatinine around similar range. On exam Irregularly irregular pulse, systolic murmur audible, Mild crackles and mild wheezing noticed in bilateral lungs. Abdominal is distended, nontender 1+ pitting edema bilateral lower extremity Assessment Acute HFrEF exacerbation Cardiomyopathy with new worsening LVEF of 35 to 40% Persistent atrial fibrillation Status post PPM for tachybradycardia syndrome Moderate aortic stenosis, moderate aortic regurgitation, moderate mitral regurgitation CKD stage IIIb Pancytopenia History of hepatitis C and hepatocellular carcinoma with splenomegaly causing abdominal distention. No signs of ascites on ultrasound. Multiple comorbid conditions including Plan Eliquis 2.5 mg twice daily. Low-dose because of anemia and poor kidney function and thrombocytopenia continue Lipitor 20 mg, Farxiga 5 mg Discontinue IV Lasix. Start p.o. Lasix 40 mg daily Continue metoprolol to 50 mg twice daily Amlodipine 5 mg daily Patient does have new worsening LVEF on this admission. However patient is a poor candidate for heart catheterization considering his CKD, pancytopenia. He had a heart cath in 2022 which showed 30% disease in LAD with moderate aortic stenosis. Monitor kidney function and electrolytes. Will optimize his medications and put him on maximally tolerated GDMT. Cannot do ARNI, MRA because of CKD. He is allergic to hydralazine secondary to Imdur hydralazine combination. Overall prognosis is guarded At this time patient is optimized from cardiovascular standpoint. Recommend outpatient follow-up with Dr. Post within next 1 week. Cardiology team will sign off. Please reconsult us in case of any question. Objective - Vital Signs Vital signs: Vital Signs Temp 97.4 F L 07/07/24 12:00 Pulse 91 07/07/24 12:00 Resp 18 07/07/24 12:00 BP 149/77 07/07/24 12:00 Pulse Ox 96 07/07/24 12:00 FiO2 Intake & Output 07/06/24 07/07/24 07/07/24 18:59 06:59 18:59 Intake Total 240 120 10 Output Total 900 200 Balance -660 -80 10 Weight 84.3 kg Intake: IV 10 Invasive Line 1 10 Oral 240 120 Output: Urine 900 200 Other: Voiding Method Urinal Urinal Urinal # Voids 1 - Labs CBC & Chem 7: 07/07/24 06:57 07/07/24 06:57 Labs: Abnormal Lab Results - Last 24 Hours (Table) 07/07/24 07/07/24 Range/Units 06:57 06:57 WBC 2.1 L (3.8-10.6) k/uL Hgb 11.7 L (13.0-17.5) gm/dL Hct 38.1 L (39.0-53.0) % MCHC 30.7 L (31.0-37.0) g/dL RDW 17.2 H (11.5-15.5) % Plt Count 79 L (150-450) k/uL Lymphocytes # 0.4 L (1.0-4.8) k/uL BUN 48 H (9-20) mg/dL Creatinine 2.41 H (0.66-1.25) mg/dL Glucose 119 H (74-99) mg/dL
--- NOTE | 2024-07-07 14:52 | P.PN ---
Subjective Progress Note Date: 07/07/24 74-year-old male seen in the emergency department, on July 03, 2024. The patient presented with shortness of breath, cough, and congestion. The patient states that the symptoms have been present for about a day or so prior to admission, getting worse. He states he could not catch his breath. The patient was recently in the hospital, between May 14 and May 16, with a similar episode. On this admission, he was admitted with a diagnosis of COPD exacerbation, and CHF. We were just consulted this morning. The patient does have COPD, with an FEV1 that is 59% of predicted. He sees one of my partners in the office. Current laboratory data includes a white count 3.5, hemoglobin 12.9, hematocrit 40.6, and platelet count 72,000. Sodium 138, potassium 3.8, chlorides 101, CO2 25, anion gap 12, BUN 50, creatinine 2.10. Glucose is 121. Troponins were 0.042 and 0.037. Procalcitonin level was normal at 0.20. A ventilation/perfusion lung scan was low probability for pulmonary embolism. Chest x-ray showed bibasilar opacities, consistent with possible pneumonia versus atypical edema. On 07/06/2024, the patient is being seen for a follow-up. This is another hospitalization for this patient for worsening shortness of breath and this is essentially thought to be related to decompensated heart failure. The patient has multiple comorbidities. The patient is known to have chronic CHF and echocardiogram was repeated during this current admission on 07/05/2024 and the patient was found to have impaired LV function with an EF of around 35 to 40% in addition to moderate aortic stenosis. The patient also has chronic liver disease, liver cirrhosis, previous history of hepatocellular carcinoma that has been surgically resected, chronic stage III kidney disease and pancytopenia re lated to chronic liver disease. The patient is currently calm and comfortable. On 2 L of oxygen by nasal cannula. The white cell count is at 2 with a hemoglobin 11.4 and a platelet count of 57. Sodium levels at 137, BUN is 49 with a creatinine of 2.23. Remains on DuoNeb nebulized treatments yevgeniy [id number]. Remains on Symbicort. Remains on Spiriva. Long-term anticoagulation with Eliquis 2.5 mg twice a day. Lasix 20 mg IV every 12 hours in addition to Toprol-XL and Farxiga.Chest x-ray was also reviewed from the current admission and the patient has bibasilar atelectatic changes and vascular congestion and cardiomegaly. The VQ scan that was completed on 07/04/2024 came back as of a low probability. On 07/07/2024, the patient is still complaining of generalized weakness and fatigue and ongoing shortness of breath. As stated earlier, his comorbidities are multiple. Nevertheless, he has stable COPD. I performed a noncontrast CAT scan of the chest yesterday and reviewing of the films shows a stable COPD. Some limited scarring in the left lung base. Pneumonia is highly doubtful. Another 12 mm nodule was also seen in the lateral left lower lobe. There was evidence of hepatic cirrhosis with portal hypertension. There is also evidence of severe aortic valve calcification with cardiomegaly. Ultrasound of the abdomen was also done that showed no evidence of any ascites and the patient splenomegaly and hepatomegaly and hepatic steatosis. The patient was further weaned off and the patient is currently on room air oxygen and is able to maintain a pulse ox of 96%. White cell count of 2.1 with a hemoglobin of 11.7 and platelet count of 79. Electrolytes are normal. BUN is 48 with a creatinine of 2.4. No other significant events overnight. He is chronically debilitated and weak and somewhat depressed. He remains in atrial fibrillation with a controlled rate. He is known to have cardiomyopathy with impaired LV function with an ejection fraction of 35%. He has a prior pacemaker insertion for tachybradycardia syndrome and he has moderately severe aortic stenosis with moderate MR and chronic stage IIIb kidney disease along with liver cirrhosis and pancytopenia. Objective - Vital Signs Vital signs: Vital Signs Temp 97.5 F L 07/07/24 08:51 Pulse 76 07/07/24 08:51 Resp 18 07/07/24 08:51 BP 126/76 07/07/24 08:51 Pulse Ox 95 07/07/24 08:51 FiO2 Intake & Output 07/06/24 07/07/24 07/07/24 18:59 06:59 18:59 Intake Total 240 120 10 Output Total 900 200 Balance -660 -80 10 Weight 84.3 kg Intake: IV 10 Invasive Line 1 10 Oral 240 120 Output: Urine 900 200 Other: Voiding Method Urinal Urinal Urinal # Voids 1 - Exam No acute distress, oriented 3. The patient calm comfortable on room air oxygen HEENT examination is grossly unremarkable. Mucous membranes are moist. No oral lesions. Neck supple. Full range of motion. No adenopathy thyromegaly or neck vein distention. Cardiovascular examination reveals regular rhythm rate. S1-S2 normal. No S3 or S4. Systolic ejection murmur grade 3/6 heard over the apex and left lateral sternal border. Heart sounds are distant. Lungs reveal bibasilar crackles. Scattered rhonchi. No wheezes. Breath sounds are equal bilaterally. Abdomen soft bowel sounds are heard. No masses or tenderness. Extremities are intact. No cyanosis or clubbing. Trace edema. Skin is without rash or lesion. Neurologic examination is brief but nonfocal. - Labs CBC & Chem 7: 07/07/24 06:57 07/07/24 06:57 Labs: Abnormal Lab Results - Last 24 Hours (Table) 07/07/24 07/07/24 Range/Units 06:57 06:57 WBC 2.1 L (3.8-10.6) k/uL Hgb 11.7 L (13.0-17.5) gm/dL Hct 38.1 L (39.0-53.0) % MCHC 30.7 L (31.0-37.0) g/dL RDW 17.2 H (11.5-15.5) % Plt Count 79 L (150-450) k/uL Lymphocytes # 0.4 L (1.0-4.8) k/uL BUN 48 H (9-20) mg/dL Creatinine 2.41 H (0.66-1.25) mg/dL Glucose 119 H (74-99) mg/dL Assessment and Plan Plan: Acute on top of chronic shortness of breath, predominantly related to congestion heart failure although the patient has a underlying component of COPD in addition. Chest x-ray showed increased pulm vessel congestion. proBNP level was 9100 and the echocardiogram showed impaired LV function with an ejection fraction of 35 to 40%, with moderate degree of aortic valve stenosis. He also has mild aortic dilatation at the level of the root measuring 41 mm in size. He has moderate RV dilatation, mild pulmonary hypertension. Noncontrast CAT scan of the chest was done on 07/06/2024 and showed COPD with some chronic scarring l eft lung base. No evidence of any pneumonia. Acute hypoxic respiratory failure, recovered and the patient is currently on room air oxygen Moderately severe aortic stenosis Chronic atrial fibrillation, controlled rate, maintained on anticoagulation with Eliquis History of moderate COPD with an FEV1 that is 59% of predicted. Ongoing chronic kidney disease with a component of acute kidney injury. The patient has chronic stage III kidney disease and the creatinine is stable for now Abnormal trop I elevation, likely type II myocardial ischemia History of congestive heart failure, it was a recent admission between May 14 and May 16. History of implantation of permanent pacemaker. History of hypertension. Myocardial infarction. History of hepatitis C. 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 Hepatocellular carcinoma. History of multiple medical problems and comorbidities. Plan: Titrate oxygen flow to maintain saturation above 90%, currently the patient is on room air oxygen COPD is stable and the patient is currently on a combination of Spiriva and Symbicort Change Lasix to oral 40 mg p.o. daily and discontinued IV Lasix. No signs of a fluid overload. No signs of any ascites and ultrasound abdomen was consistent with chronic liver disease Continue Toprol and Farxiga Anticoagulation with Eliquis No need for antibiotic coverage at this point Monitor hematologic profile Reviewed the noncontrast CAT scan of the chest and is consistent with COPD with limited scarring in the left lung base Cardiology follow-up Will continue to follow Will need PT. Time with Patient: Greater than 30
[2024-07-08 08:03] LABS: African American GFR (CKD) 33 (>60 ml/min/1.73 sqM); Anion Gap 10 mmol/L; Blood Urea Nitrogen 48 mg/dL (9-20); Calcium 8.9 mg/dL (8.4-10.2); Carbon Dioxide 25 mmol/L (22-30); Chloride 104 mmol/L (98-107); Glucose 106 mg/dL (74-99); Non-African American GFR(CKD) 28 (>60 ml/min/1.73 sqM); Potassium 3.9 mmol/L (3.5-5.1); Sodium 139 mmol/L (137-145)
[2024-07-08] MEDS: FUROSEMIDE 40 MG TAB PO SCH (09:13)
--- NOTE | 2024-07-08 14:17 | P.PN ---
Subjective Interval History: patient 74-year-old gentleman with past medical history significant hypertension, paroxysmal atrial fibrillation, moderate to severe aortic stenosis, chronic kidney disease,presented the ER because of shortness of breath that started 1 day back. Patient stated that he was all right yesterday morning when around 5 AM he woke up and was exercising when he started noticing that he was getting short of breath. Shortness of breath was present on rest as well as exertion. Patient stated he was unable to take deep breaths. There was no complaint of any chest pain. Patient patient was also complaining of palpitation . There was no complaint of fever or chill. Patient denies any cough. There was no complaint of swelling of lower extremities. Patient recently saw his duralumin mechanic and was supposed to get an echo in outpatient settings. Patient also saw his bias cutter recently. Patient took some extra dose of diuretic but that did not help. Because of his worsening shortness of breath patient came to the ER. Initial lab work done in the ER showed WBC 4, hemoglobin 9.5, platelet count 77, sodium 139, potassium 3.9, BUN 53, creatinine 2.10 glucose 101 troponin 0.047, proBNP 9100 Influenza A not detected Influenza B not detected RSV not detected COVID-19 not detected EKG done in the ER showed heart rate of 71, electronic atrial pacemaker Chest x-ray done in the ER showed bibasilar airspace opacities in lateral view correlate for pneumonia Patient admitted to internal medicine service 07/05. Patient seen and examined. Stated he is still short of breath, gets easily winded on exertion. Currently on 4 L of oxygen 07/06--patient was seen and examined today. Complains of shortness of breath. Afebrile, heart rate 78, respiratory rate 17, blood pressure 145/95, saturating 94% on 3 L. Echocardiogram showed EF 35 to 40%, moderate aortic stenosis, moderate TR, moderate MR. WBCs 2.0, hemoglobin 11.4, platelet 57. Creatinine trending up 2.23. 4/1patient was seen and examined today. Continues complain of shortness of breath, saturating 95% on 3 L. Afebrile, heart rate 91, respiratory rate 18, blood pressure 149/77. WBCs 2.1, hemoglobin 11.7, platelet 79. BUN 48, creatinine 2.41 uptrending as compared to 2.23 yesterday. Cardiology following. IV Lasix changed to p.o. Lasix. 07/08--patient was seen and examined today. Patient feeling better today. No issues overnight. Afebrile, heart rate 74, respiratory rate 20, blood pressure 168/79, saturating 95% on room air. Patient 48, creatinine 2.23, improving. Switch to p.o. Lasix, anticipate discharge to subacute rehab tomorrow. Assessment and plan: Acute on chronic systolic CHF: Cardiomyopathy with worsening EF 35 to 40% Tachybradycardia syndrome status post PPM Moderate aortic stenosis, moderate AR, moderate MR Elevated troponin: Demand ischemia Hypertension Presented with shortness of breath proBNP more than 9000 Chest x-ray showed bibasilar airspace opacities Monitor daily weight and I&O's, cardiac diet IV diuresis Echocardiogram showed new worsening LVEF of 35 to 40% Cardiology consulted and following--statin, SGLT2 inhibitor, metoprolol, hydralazine, Imdur Poor candidate for CAR-T catheterization due to CKD, pancytopenia, LHC in 2022 showed 30% disease in the LAD with moderate aortic stenosis. Ultrasound abdomen to rule out ascites. Persistent atrial fibrillation: Discontinued heparin, started on Eliquis 2.5 mg twice daily, low-dose due to anemia, poor kidney function and thrombocytopenia Metoprolol COPD: Uses 2 L oxygen nightly Continue bronchodilator protocol Pulmonary consulted appreciate recs. VQ scan showed low probability of PE. [place] on CKD: Received IV diuresis, now changed to p.o. Lasix. 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 Continue same treatment. Further recommendations as per clinical course of the patient PHYSICAL EXAMINATION: GENERAL: The patient is A&O x3, NAD HEENT: EOMI, Sclerae anicteric, Moist Mucous membranes Neck: Supple, Non tender, No JVD PULMONARY: Equal breath souds B/L, No wheezing, +crackles. CARDIOVASCULAR: S1, S2 present. No murmurs, rubs, or gallops. ABDOMEN: Soft, nontender, nondistended, normoactive bowel sounds. No guarding or rebound tenderness. MUSCULOSKELETAL: + edema, No cyanosis. No clubbing. Normal ROM. Intact peripheral pulses. NEUROLOGICAL: CN 2-12 grossly intact. No FND Skin: No Rash REVIEW OF SYSTEMS: CONSTITUTIONAL: No fever or chills. CARDIOVASCULAR: No chest pain, palpitations or syncope. PULMONARY: Complains of shortness of breath. GASTROINTESTINAL: No nausea, vomiting, diarrhea, abdominal pain. : No Dysuria, urgency, frequency. Extremities: No edema. NEUROLOGICAL: No headaches, no weakness, or numbness Dictation was produced using [employer] dictation software. please excuse any grammatical, word or spelling errors. Objective - Vital Signs Vital signs: Vital Signs Temp 97.6 F 07/08/24 08:00 Pulse 74 07/08/24 11:42 Resp 20 07/08/24 11:42 BP 168/79 07/08/24 11:42 Pulse Ox 95 07/08/24 11:42 FiO2 Intake & Output 07/07/24 07/08/24 07/08/24 18:59 06:59 18:59 Intake Total 20 20 540 Balance 20 20 540 Weight 84.8 kg Intake: IV 20 20 Invasive Line 1 20 20 Oral 540 Other: Voiding Method Urinal Toilet Toilet Urinal Urinal # Voids 3 1 2 - Labs CBC & Chem 7: 07/07/24 06:57 07/08/24 06:54 Labs: Abnormal Lab Results - Last 24 Hours (Table) 07/08/24 Range/Units 06:54 BUN 48 H (9-20) mg/dL Creatinine 2.23 H (0.66-1.25) mg/dL Glucose 106 H (74-99) mg/dL
--- NOTE | 2024-07-08 15:11 | P.PN ---
Subjective Progress Note Date: 07/08/24 74-year-old male seen in the emergency department, on July 03, 2024. The patient presented with shortness of breath, cough, and congestion. The patient states that the symptoms have been present for about a day or so prior to admission, getting worse. He states he could not catch his breath. The patient was recently in the hospital, between May 14 and May 16, with a similar episode. On this admission, he was admitted with a diagnosis of COPD exacerbation, and CHF. We were just consulted this morning. The patient does have COPD, with an FEV1 that is 59% of predicted. He sees one of my partners in the office. Current laboratory data includes a white count 3.5, hemoglobin 12.9, hematocrit 40.6, and platelet count 72,000. Sodium 138, potassium 3.8, chlorides 101, CO2 25, anion gap 12, BUN 50, creatinine 2.10. Glucose is 121. Troponins were 0.042 and 0.037. Procalcitonin level was normal at 0.20. A ventilation/perfusion lung scan was low probability for pulmonary embolism. Chest x-ray showed bibasilar opacities, consistent with possible pneumonia versus atypical edema. On 07/06/2024, the patient is being seen for a follow-up. This is another hospitalization for this patient for worsening shortness of breath and this is essentially thought to be related to decompensated heart failure. The patient has multiple comorbidities. The patient is known to have chronic CHF and echocardiogram was repeated during this current admission on 07/05/2024 and the patient was found to have impaired LV function with an EF of around 35 to 40% in addition to moderate aortic stenosis. The patient also has chronic liver disease, liver cirrhosis, previous history of hepatocellular carcinoma that has been surgically resected, chronic stage III kidney disease and pancytopenia re lated to chronic liver disease. The patient is currently calm and comfortable. On 2 L of oxygen by nasal cannula. The white cell count is at 2 with a hemoglobin 11.4 and a platelet count of 57. Sodium levels at 137, BUN is 49 with a creatinine of 2.23. Remains on DuoNeb nebulized treatments yevgeniy [id number]. Remains on Symbicort. Remains on Spiriva. Long-term anticoagulation with Eliquis 2.5 mg twice a day. Lasix 20 mg IV every 12 hours in addition to Toprol-XL and Farxiga.Chest x-ray was also reviewed from the current admission and the patient has bibasilar atelectatic changes and vascular congestion and cardiomegaly. The VQ scan that was completed on 07/04/2024 came back as of a low probability. On 07/07/2024, the patient is still complaining of generalized weakness and fatigue and ongoing shortness of breath. As stated earlier, his comorbidities are multiple. Nevertheless, he has stable COPD. I performed a noncontrast CAT scan of the chest yesterday and reviewing of the films shows a stable COPD. Some limited scarring in the left lung base. Pneumonia is highly doubtful. Another 12 mm nodule was also seen in the lateral left lower lobe. There was evidence of hepatic cirrhosis with portal hypertension. There is also evidence of severe aortic valve calcification with cardiomegaly. Ultrasound of the abdomen was also done that showed no evidence of any ascites and the patient splenomegaly and hepatomegaly and hepatic steatosis. The patient was further weaned off and the patient is currently on room air oxygen and is able to maintain a pulse ox of 96%. White cell count of 2.1 with a hemoglobin of 11.7 and platelet count of 79. Electrolytes are normal. BUN is 48 with a creatinine of 2.4. No other significant events overnight. He is chronically debilitated and weak and somewhat depressed. He remains in atrial fibrillation with a controlled rate. He is known to have cardiomyopathy with impaired LV function with an ejection fraction of 35%. He has a prior pacemaker insertion for tachybradycardia syndrome and he has moderately severe aortic stenosis with moderate MR and chronic stage IIIb kidney disease along with liver cirrhosis and pancytopenia. On today's evaluation of 07/08/2024, no significant change in the patient's condition. The patient is pulse oxing around 94 to 95% on room air oxygen. Nevertheless, he opts to wear the oxygen as this patient feels better while being on O2 therapy. No significant edema lower extremities. No chest pain. The white cell count is at 2.1 with a hemoglobin 11.7 and platelet count of 79. BUN is 48 with a creatinine 2.2 and the creatinine remains stable. Sodium is at 139 and potassium level of 3.9. Rest of the medication remain unchanged. He remains on anticoagulation with Eliquis. Remains on Symbicort and DuoNeb nebulizers [id number]. He is also on Spiriva as maintenance. Receiving Lasix 40 mg p.o. daily. Is also on Farxiga, Norvasc, metoprolol and long-term prednisone at a dose of 5 mg p.o. daily. Objective - Vital Signs Vital signs: Vital Signs Temp 97.6 F 07/08/24 08:00 Pulse 73 07/08/24 08:00 Resp 18 07/08/24 08:00 BP 155/70 07/08/24 08:00 Pulse Ox 95 07/08/24 08:00 FiO2 Intake & Output 07/07/24 07/08/24 07/08/24 18:59 06:59 18:59 Intake Total 20 20 Balance 20 20 Weight 84.8 kg Intake: IV 20 20 Invasive Line 1 20 20 Other: Voiding Method Urinal Toilet Toilet Urinal Urinal # Voids 3 1 - Exam No acute distress, oriented 3. The patient calm comfortable on room air oxygen HEENT examination is grossly unremarkable. Mucous membranes are moist. No oral lesions. Neck supple. Full range of motion. No adenopathy thyromegaly or neck vein distention. Cardiovascular examination reveals regular rhythm rate. S1-S2 normal. No S3 or S4. Systolic ejection murmur grade 3/6 heard over the apex and left lateral sternal border. Heart sounds are distant. Lungs reveal bibasilar crackles. Scattered rhonchi. No wheezes. Breath sounds are equal bilaterally. Abdomen soft bowel sounds are heard. No masses or tenderness. Extremities are intact. No cyanosis or clubbing. Trace edema. Skin is without rash or lesion. Neurologic examination is brief but nonfocal. - Labs CBC & Chem 7: 07/07/24 06:57 07/08/24 06:54 Labs: Abnormal Lab Results - Last 24 Hours (Table) 07/08/24 Range/Units 06:54 BUN 48 H (9-20) mg/dL Creatinine 2.23 H (0.66-1.25) mg/dL Glucose 106 H (74-99) mg/dL Assessment and Plan Plan: Acute on top of chronic shortness of breath, predominantly related to congestion heart failure although the patient has a underlying component of COPD in addition. Chest x-ray showed increased pulm vessel congestion. proBNP level was 9100 and the echocardiogram showed impaired LV function with an ejection fraction of 35 to 40%, with moderate degree of aortic valve stenosis. He also has mild aortic dilatation at the level of the root measuring 41 mm in size. He has moderate RV dilatation, mild pulmonary hypertension. Noncontrast CAT scan of the chest was done on 07/06/2024 and showed COPD with some chronic scarring le ft lung base. No evidence of any pneumonia. Condition remains stable Acute hypoxic respiratory failure, recovered and the patient is currently on room air oxygen, the patient prefers to be on O2 therapy for symptomatic reasons. He feels less short of breath while being on O2. Moderately severe aortic stenosis Chronic atrial fibrillation, controlled rate, maintained on anticoagulation with Eliquis and the patient is also on Toprol-XL 50 mg p.o. daily. History of moderate COPD with an FEV1 that is 59% of predicted. Ongoing chronic kidney disease with a component of acute kidney injury. The patient has chronic stage III kidney disease and the creatinine is stable for now Abnormal trop I elevation, likely type II myocardial ischemia History of congestive heart failure, it was a recent admission between May 14 and May 16. History of implantation of permanent pacemaker. History of hypertension. Myocardial infarction. History of hepatitis C. 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 Hepatocellular carcinoma. History of multiple medical problems and comorbidities. Plan: Titrate oxygen flow to maintain saturation above 90% COPD is stable and the patient is currently on a combination of Spiriva and Symbicort Change Lasix to oral 40 mg p.o. daily . No signs of a fluid overload. No signs of any ascites and ultrasound abdomen was consistent with chronic liver disease Continue Toprol and Farxiga Norvasc for blood pressure control Anticoagulation with Eliquis No need for antibiotic coverage at this point Monitor hematologic profile Reviewed the noncontrast CAT scan of the chest and is consistent with COPD with limited scarring in the left lung base Cardiology follow-up Will continue to follow Will need PT.
[2024-07-09 08:08] VITALS: RESP 18; TEMP 97.8
[2024-07-09 13:45] VITALS: BP 153/82; PULSE 61
--- NOTE | 2024-07-09 14:38 | P.DS ---
Providers Date of admission: 07/06/24 09:42 Expected date of discharge: 07/09/24 Attending physician: Hillary Franks Consults: 07/05/24 09:25 Consult Physician Routine Consulting Provider: Marlo Diggs Consult Reason/Comments: Shortness of breath Do you want consulting provider notified?: Already Contacted Primary care physician: Drew Mitchell [facility] Course: Discharge diagnoses: Acute on chronic systolic CHF: Cardiomyopathy with worsening EF 35 to 40% Tachybradycardia syndrome status post PPM Moderate aortic stenosis, moderate AR, moderate MR Elevated troponin: Demand ischemia Hypertension Presented with shortness of breath proBNP more than 9000 Chest x-ray showed bibasilar airspace opacities Treated with IV diuresis. Echocardiogram showed new worsening LVEF of 35 to 40% Cardiology consulted,-continue Eliquis, dapagliflozin, aspirin, statin, metoprolol, Lasix, Norvasc at discharge. Poor candidate for cardiac catheterization due to CKD, pancytopenia, LHC in 2022 showed 30% disease in the LAD with moderate aortic stenosis. Ultrasound abdomen to rule out ascites--no acute process, showed hepatomegaly with hepatic steatosis, splenomegaly, simple renal cyst, abdominal aortic dilatation up to 2.[address] chest showed severe coronary artery calcifications, scattered airspace opacities within left lower lobe, left lower lobe nodule, mild emphysema, hepatic cirrhosis with evidence of portal hypertension Persistent atrial fibrillation: Discontinued heparin, started on Eliquis 2.5 mg twice daily, low-dose due to ane lucille, poor kidney function and thrombocytopenia Metoprolol COPD: Uses 2 L oxygen nightly Continue bronchodilator protocol Pulmonary consulted appreciate recs. VQ scan showed low probability of PE. [place] on CKD: Received IV diuresis, now changed to p.o. Lasix. PCP to follow-up with repeat CBC and BMP in 1 week. Pulmonary nodule: CT chest showed left lower lobe nodule, outpatient follow-up with repeat CT. 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 Patient stated that he was all right yesterday morning when around 5 AM he woke up and was exercising when he started noticing that he was getting short of breath. Shortness of breath was present on rest as well as exertion. Patient stated he was unable to take deep breaths. There was no complaint of any chest pain. Patient patient was also complaining of palpitation . There was no complaint of fever or chill. Patient denies any cough. There was no complaint of swelling of lower extremities. Patient recently saw his loom starter and was supposed to get an echo in outpatient settings. Patient also saw his screen cutter and trimmer recently. Patient took some extra dose of diuretic but that did not help. Because of his worsening shortness of breath patient came to the ER. Initial lab work done in the ER showed WBC 4, hemoglobin 9.5, platelet count 77, sodium 139, potassium 3.9, BUN 53, creatinine 2.10 glucose 101 troponin 0.047, proBNP 9100 Influenza A not detected Influenza B not detected RSV not detected COVID-19 not detected EKG done in the ER showed heart rate of 71, electronic atrial pacemaker Chest x-ray done in the ER showed bibasilar airspace opacities in lateral view correlate for pneumonia Patient was admitted hospital for further evaluation and management of acute on chronic systolic CHF. Patient treated with IV diuresis during hospitalization. Echocardiogram showed new worsening EF of 35 to 40%. Cardiology consulted, recommended to continue Eliquis, dapagliflozin, statin, metoprolol, Lasix, Norvasc at discharge. Patient poor candidate for cardiac catheterization due to CKD, pancytopenia. Patient continued on low-dose of Eliquis 2.5 mg twice daily due to anemia, and thrombocytopenia. Patient was evaluated by PT/OT and recommended subacute rehab. Patient's symptoms gradually improved. Please refer to medical assessment for further details. Follow-up with PCP in 1 week Follow-up with cardiology as outpatient. PHYSICAL EXAMINATION: GENERAL: The patient is A&O x3, NAD HEENT: EOMI, Sclerae anicteric, Moist Mucous membranes Neck: Supple, Non tender, No JVD PULMONARY: Equal breath souds B/L, No wheezing, No crackles. CARDIOVASCULAR: S1, S2 present. No murmurs, rubs, or gallops. ABDOMEN: Soft, nontender, nondistended, normoactive bowel sounds. No guarding or rebound tenderness. MUSCULOSKELETAL: No edema, No cyanosis. No clubbing. Normal ROM. Intact peripheral pulses. NEUROLOGICAL: CN 2-12 grossly intact. No FND SKIN: No rashes. Dictation was produced using [employer] dictation software. please excuse any grammatical, word or spelling errors. Patient Condition at Discharge: Stable Plan - Discharge Summary New Discharge Prescriptions: New Apixaban [Eliquis] 2.5 mg PO BID tab Dapagliflozin Propanediol [Farxiga] 5 mg PO DAILY tab Atorvastatin [Lipitor] 20 mg PO HS tab Metoprolol Succinate (ER) [Toprol XL] 50 mg PO BID tab Furosemide [Lasix] 40 mg PO DAILY tab guaiFENesin [Mucinex] 600 mg PO Q12HR tab amLODIPine [Norvasc] 5 mg PO DAILY tab Continue Colchicine 0.6 mg PO DAILY traZODone HCL [Desyrel] 50 mg PO HS Cholecalciferol [Vitamin D3 (25 Mcg = 1000 Iu)] 25 mcg PO DAILY Pantoprazole Sodium [Protonix] 20 mg PO BID Albuterol Inhaler [Ventolin Hfa Inhaler] 2 puff INHALATION RT-Q6H PRN PRN Reason: Shortness Of Breath Ipratropium-Albuterol Nebulize [Duoneb 0.5 mg-3 mg/3 ml Soln] 3 ml INHALATION RT-QID #120 each Fluticasone Propion/Salmeterol [Wixela 500-50 Inhub] 1 puff INHALATION RT-BID Folic Acid 1 mg PO DAILY Ferrous Sulfate [Iron (65 MG Elemental)] 325 mg PO DAILY Naloxone HCl [Narcan] 4 mg NASAL DIRECTED PRN PRN Reason: Opioid Overdose Ipratropium-Albuterol Nebulize [Duoneb 0.5 mg-3 mg/3 ml Soln] 3 ml INHALATION RT-Q4H PRN each PRN Reason: shortness of breath Diclofenac Sodium Gel [Voltaren 1% Gel] 1 applic TOPICAL QID PRN PRN Reason: Pain predniSONE 5 mg PO DAILY Tiotropium 2.5 Mcg/Puff [Spiriva Respimat 2.5 Mcg] 1 puff INHALATION RT-BID Multivit-Min/FA/Lycopen/Lutein [Centrum Silver Tablet] 1 tab PO DAILY HYDROcodone/APAP 10-325MG [[place] 10-325] 1 tab PO QID PRN #12 tab PRN Reason: Pain Discontinued amLODIPine [Norvasc] 10 mg PO DAILY Metoprolol Succinate [Toprol XL] 50 mg PO DAILY #30 tab Furosemide [Lasix] 40 mg PO BID Discharge Medication List Colchicine 0.6 mg PO DAILY 08/02/16 [History] Tiotropium 2.5 Mcg/Puff [Spiriva Respimat 2.5 Mcg] 1 puff INHALATION RT-BID 01/14/23 [History] traZODone HCL [Desyrel] 50 mg PO HS 01/14/23 [History] Cholecalciferol [Vitamin D3 (25 Mcg = 1000 Iu)] 25 mcg PO DAILY 02/11/23 [History] Multivit-Min/FA/Lycopen/Lutein [Centrum Silver Tablet] 1 tab PO DAILY 02/11/23 [History] Albuterol Inhaler [Ventolin Hfa Inhaler] 2 puff INHALATION RT-Q6H PRN 06/30/23 [History] Pantoprazole Sodium [Protonix] 20 mg PO BID 06/30/23 [History] Ipratropium-Albuterol Nebulize [Duoneb 0.5 mg-3 mg/3 ml Soln] 3 ml INHALATION RT-QID #120 each 07/04/23 [Rx] Fluticasone Propion/Salmeterol [Wixela 500-50 Inhub] 1 puff INHALATION RT-BID 01/14/24 [History] Ferrous Sulfate [Iron (65 MG Elemental)] 325 mg PO DAILY 02/06/24 [History] Folic Acid 1 mg PO DAILY 02/06/24 [History] Naloxone HCl [Narcan] 4 mg NASAL DIRECTED PRN 02/06/24 [History] Ipratropium-Albuterol Nebulize [Duoneb 0.5 mg-3 mg/3 ml Soln] 3 ml INHALATION RT-Q4H PRN each 02/07/24 [Rx] Diclofenac Sodium Gel [Voltaren 1% Gel] 1 applic TOPICAL QID PRN 05/14/24 [History] predniSONE 5 mg PO DAILY 07/04/24 [History] Apixaban [Eliquis] 2.5 mg PO BID tab 07/09/24 [Rx] Atorvastatin [Lipitor] 20 mg PO HS tab 07/09/24 [Rx] Dapagliflozin Propanediol [Farxiga] 5 mg PO DAILY tab 07/09/24 [Rx] Furosemide [Lasix] 40 mg PO DAILY tab 07/09/24 [Rx] HYDROcodone/APAP 10-325MG [[place] 10-325] 1 tab PO QID PRN #12 tab 07/09/24 [Rx] Metoprolol Succinate (ER) [Toprol XL] 50 mg PO BID tab 07/09/24 [Rx] amLODIPine [Norvasc] 5 mg PO DAILY tab 07/09/24 [Rx] guaiFENesin [Mucinex] 600 mg PO Q12HR tab 07/09/24 [Rx] Follow up Appointment(s)/Referral(s): Luis Holly MD [STAFF PHYSICIAN] - 1 Week Drew Medrano MD [Primary Care Provider] - 1-2 days Discharge Disposition: TRANSFER TO SNF/ECF
--- NOTE | 2024-07-09 22:11 | P.PN ---
Subjective Progress Note Date: 07/09/24 74-year-old male seen in the emergency department, on July 03, 2024. The patient presented with shortness of breath, cough, and congestion. The patient states that the symptoms have been present for about a day or so prior to admission, getting worse. He states he could not catch his breath. The patient was recently in the hospital, between May 14 and May 16, with a similar episode. On this admission, he was admitted with a diagnosis of COPD exacerbation, and CHF. We were just consulted this morning. The patient does have COPD, with an FEV1 that is 59% of predicted. He sees one of my partners in the office. Current laboratory data includes a white count 3.5, hemoglobin 12.9, hematocrit 40.6, and platelet count 72,000. Sodium 138, potassium 3.8, chlorides 101, CO2 25, anion gap 12, BUN 50, creatinine 2.10. Glucose is 121. Troponins were 0.042 and 0.037. Procalcitonin level was normal at 0.20. A ventilation/perfusion lung scan was low probability for pulmonary embolism. Chest x-ray showed bibasilar opacities, consistent with possible pneumonia versus atypical edema. On 07/06/2024, the patient is being seen for a follow-up. This is another hospitalization for this patient for worsening shortness of breath and this is essentially thought to be related to decompensated heart failure. The patient has multiple comorbidities. The patient is known to have chronic CHF and echocardiogram was repeated during this current admission on 07/05/2024 and the patient was found to have impaired LV function with an EF of around 35 to 40% in addition to moderate aortic stenosis. The patient also has chronic liver disease, liver cirrhosis, previous history of hepatocellular carcinoma that has been surgically resected, chronic stage III kidney disease and pancytopenia re lated to chronic liver disease. The patient is currently calm and comfortable. On 2 L of oxygen by nasal cannula. The white cell count is at 2 with a hemoglobin 11.4 and a platelet count of 57. Sodium levels at 137, BUN is 49 with a creatinine of 2.23. Remains on DuoNeb nebulized treatments yevgeniy [id number]. Remains on Symbicort. Remains on Spiriva. Long-term anticoagulation with Eliquis 2.5 mg twice a day. Lasix 20 mg IV every 12 hours in addition to Toprol-XL and Farxiga.Chest x-ray was also reviewed from the current admission and the patient has bibasilar atelectatic changes and vascular congestion and cardiomegaly. The VQ scan that was completed on 07/04/2024 came back as of a low probability. On 07/07/2024, the patient is still complaining of generalized weakness and fatigue and ongoing shortness of breath. As stated earlier, his comorbidities are multiple. Nevertheless, he has stable COPD. I performed a noncontrast CAT scan of the chest yesterday and reviewing of the films shows a stable COPD. Some limited scarring in the left lung base. Pneumonia is highly doubtful. Another 12 mm nodule was also seen in the lateral left lower lobe. There was evidence of hepatic cirrhosis with portal hypertension. There is also evidence of severe aortic valve calcification with cardiomegaly. Ultrasound of the abdomen was also done that showed no evidence of any ascites and the patient splenomegaly and hepatomegaly and hepatic steatosis. The patient was further weaned off and the patient is currently on room air oxygen and is able to maintain a pulse ox of 96%. White cell count of 2.1 with a hemoglobin of 11.7 and platelet count of 79. Electrolytes are normal. BUN is 48 with a creatinine of 2.4. No other significant events overnight. He is chronically debilitated and weak and somewhat depressed. He remains in atrial fibrillation with a controlled rate. He is known to have cardiomyopathy with impaired LV function with an ejection fraction of 35%. He has a prior pacemaker insertion for tachybradycardia syndrome and he has moderately severe aortic stenosis with moderate MR and chronic stage IIIb kidney disease along with liver cirrhosis and pancytopenia. On today's evaluation of 07/08/2024, no significant change in the patient's condition. The patient is pulse oxing around 94 to 95% on room air oxygen. Nevertheless, he opts to wear the oxygen as this patient feels better while being on O2 therapy. No significant edema lower extremities. No chest pain. The white cell count is at 2.1 with a hemoglobin 11.7 and platelet count of 79. BUN is 48 with a creatinine 2.2 and the creatinine remains stable. Sodium is at 139 and potassium level of 3.9. Rest of the medication remain unchanged. He remains on anticoagulation with Eliquis. Remains on Symbicort and DuoNeb nebulizers [id number]. He is also on Spiriva as maintenance. Receiving Lasix 40 mg p.o. daily. Is also on Farxiga, Norvasc, metoprolol and long-term prednisone at a dose of 5 mg p.o. daily. On 07/09/2024, the patient remains on room air oxygen. No chest pain. No new complaints. The patient is feeling well. No pleurisy. No hemoptysis. No fever or chills. COPD remains stable. No signs of pneumonia. No signs of any fluid overload. Medications remain unchanged. Labs were reviewed. BUN is 48 with a creatinine of 2.2. Sodium levels at 139 and potassium level is at 3.9. Patient is being considered for discharge. He will be going home on a daily dose of Lasix 40 mg p.o. daily. He will be on anticoagulation with Eliquis 2.5 mg p.o. twice a day. Objective - Vital Signs Vital signs: Vital Signs Temp 97.8 F 07/09/24 08:00 Pulse 71 07/09/24 08:00 Resp 18 07/09/24 08:00 BP 164/82 07/09/24 08:00 Pulse Ox 94 L 07/09/24 08:00 FiO2 Intake & Output 07/08/24 07/09/24 07/09/24 18:59 06:59 18:59 Intake Total 540 240 Balance 540 240 Weight 85 kg Intake: Oral 540 240 Other: Voiding Method Toilet Toilet Urinal Urinal # Voids 2 - Exam No acute distress, oriented 3. The patient calm comfortable on room air oxygen HEENT examination is grossly unremarkable. Mucous membranes are moist. No oral lesions. Neck supple. Full range of motion. No adenopathy thyromegaly or neck vein distention. Cardiovascular examination reveals regular rhythm rate. S1-S2 normal. No S3 or S4. Systolic ejection murmur grade 3/6 heard over the apex and left lateral sternal border. Heart sounds are distant. Lungs reveal bibasilar crackles. Scattered rhonchi. No wheezes. Breath sounds are equal bilaterally. Abdomen soft bowel sounds are heard. No masses or tenderness. Extremities are intact. No cyanosis or clubbing. Trace edema. Skin is without rash or lesion. Neurologic examination is brief but nonfocal. - Labs CBC & Chem 7: 07/07/24 06:57 07/08/24 06:54 Assessment and Plan Plan: Acute on top of chronic shortness of breath, predominantly related to congestion heart failure although the patient has a underlying component of COPD in addition. Chest x-ray showed increased pulm vessel congestion. proBNP level was 9100 and the echocardiogram showed impaired LV function with an ejection fraction of 35 to 40%, with moderate degree of aortic valve stenosis. He also has mild aortic dilatation at the level of the root measuring 41 mm in size. He has moderate RV dilatation, mild pulmonary hypertension. Noncontrast CAT scan of the chest was done on 07/06/2024 and showed COPD with some chronic scarring left lung base. No evidence of any pneumonia. Condition remains stable Acute hypoxic respiratory failure, recovered and the patient is currently on room air oxygen, the patient prefers to be on O2 therapy for symptomatic reasons. He feels less short of breath while being on O2. Moderately severe aortic stenosis Chronic atrial fibrillation, controlled rate, maintained on anticoagulation with Eliquis and the patient is also on Toprol-XL 50 mg p.o. daily. History of moderate COPD with an FEV1 that is 59% of predicted. Ongoing chronic kidney disease with a component of acute kidney injury. The patient has chronic stage III kidney disease and the creatinine is stable for now Abnormal trop I elevation, likely type II myocardial ischemia History of congestive heart failure, it was a recent admission between May 14 and May 16. History of implantation of permanent pacemaker. History of hypertension. Myocardial infarction. History of hepatitis C. 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 Hepatocellular carcinoma. History of multiple medical problems and comorbidities. Plan: patient ion RA 02 COPD is stable and the patient is currently on a combination of Spiriva and Symbicort Change Lasix to oral 40 mg p.o. daily . No signs of a fluid overload. No signs of any ascites and ultrasound abdomen was consistent with chronic liver disease Continue Toprol and Farxiga Norvasc for blood pressure control Anticoagulation with Eliquis Reviewed the noncontrast CAT scan of the chest and is consistent with COPD with limited scarring in the left lung base Will discharge to [facility]
--- NOTE | 2024-07-13 18:08 | CDI ---
Documentation Clarification Form Date: From: Wili Parry Phone: Admit Date: 07/06/2024 09:42:00 AM Patient Name: Chaitanya Morales Visit Number: [id number] Discharge Date: 07/09/2024 03:07:00 PM ATTENTION: The Clinical Documentation Specialists (CDI) and [facility] Coding Staff appreciate your assistance in clarifying documentation. Please respond to the clarification below the line at the bottom and electronically sign. The CDI & [facility] Coding staff will review the response and follow-up if needed. Please note: Queries are made part of the Legal Health Record. If you have any questions, please contact the author of this message via ITS. Doctor/Provider: Hillary Franks Conflicting documentation has been found in the medical record. As attending physician, please provide clarification. Elevated troponin: Demand ischemia documented on Discharge Summary 07/09/24 Abnormal trop I elevation, likely type II myocardial ischemia documented throughout progress notes beginning 07/06/24 History/Risk Factors:Acute on Chronic Diastolic Heart Failure Clinical Indicators:.Chest x-ray showed increased pulm vessel congestion. proBNP level was 9100 and the echocardiogram showed impaired LV function with an ejection fraction of 35 to 40%, with moderate degree of aortic valve stenosis.He also has mild aortic dilatation at the level of the root measuring 41 mm in size.He has moderate RV dilatation, mild pulmonary hypertension. Moderately severe aortic stenosis Treatment: Please clarify which diagnosis is most appropriate: [ ] Demand Ischemia [ ] Nstemi type II [ ] Other (please specify) [ ] Unable to determine not mine MTDD
--- NOTE | 2024-07-16 18:29 | CDI ---
Physicians Documentation Request This Form is Not a Permanent Document in the Medical Record Pt Name: Chaitanya Morales MR #: [id number] Payor: MEDICARE Unit/Bed: [id number] Adm Date: 07/06/2024 09:42:00 AM Reviewer: Wili Parry Ext. Query Date: By submitting this query, we are merely seeking further clarification of documentation to accurately reflect all conditions that you are monitoring, evaluating, treating or that extend the hospitalization or utilize additional resources of care. Please utilize your independent clinical judgment when addressing the question(s) below. Dear Doctor Prashanth Hurtado, Clinical Indicators Conflicting documentation has been found in the medical record.As attending physician, please provide clarification. Elevated troponin: Demand ischemia documented on Discharge Summary 07/09/24 Abnormal trop I elevation, likely type II myocardial ischemia documented throughout progress notes beginning 07/06/24 History/Risk Factors:Acute on Chronic Diastolic Heart Failure Clinical Indicators:.Chest x-ray showed increased pulm vessel congestion. proBNP level was 9100 and the echocardiogram showed impaired LV function with an ejection fraction of 35 to 40%, with moderate degree of aortic valve stenosis.He also has mild aortic dilatation at the level of the root measuring 41 mm in size.He has moderate RV dilatation, mild pulmonary hypertension.Moderately severe aortic stenosis Treatment: Please clarify which diagnosis is most appropriate: [x ] Demand Ischemia [ ] Nstemi type II [ ] Other (please specify) [ ] Unable to determine PLEASE DOCUMENT ANY ADDITIONAL DIAGNOSES AND/OR SPECIFICITY IN THE PROGRESS NOTES AND/OR DISCHARGE SUMMARY. [place]
== END 2024-07-09 15:07 | DRG 291 ==
LOC: EC 18:56 → 6NMEDSUR 23:02 → 3SCARD 07-04 03:52 → OBSVTOIN 07-06 09:42
PROVIDERS: ADMIT Hospitalist; ATTEND Hospitalist
DX: I13.0 Hypertensive heart and chronic kidney disease with heart failure and stage 1 through stage 4 chronic kidney disease, or unspecified chronic kidney disease (principal); I50.33 Acute on chronic diastolic (congestive) heart failure; D61.818 Other pancytopenia; I24.89 Other forms of acute ischemic heart disease; J44.1 Chronic obstructive pulmonary disease with (acute) exacerbation; N17.9 Acute kidney failure, unspecified; K76.6 Portal hypertension; N18.32 Chronic kidney disease, stage 3b; Z11.52 Encounter for screening for COVID-19; I08.0 Rheumatic disorders of both mitral and aortic valves; J96.11 Chronic respiratory failure with hypoxia; I48.19 Other persistent atrial fibrillation; J43.9 Emphysema, unspecified; I42.9 Cardiomyopathy, unspecified; I49.5 Sick sinus syndrome; K74.60 Unspecified cirrhosis of liver; I25.10 Atherosclerotic heart disease of native coronary artery without angina pectoris; I25.2 Old myocardial infarction; I49.3 Ventricular premature depolarization; R91.8 Other nonspecific abnormal finding of lung field; R91.1 Solitary pulmonary nodule; J98.4 Other disorders of lung; Z79.01 Long term (current) use of anticoagulants; Z79.52 Long term (current) use of systemic steroids; Z79.899 Other long term (current) drug therapy; Z85.05 Personal history of malignant neoplasm of liver; Z85.818 Personal history of malignant neoplasm of other sites of lip, oral cavity, and pharynx; Z87.891 Personal history of nicotine dependence; Z85.828 Personal history of other malignant neoplasm of skin; Z95.0 Presence of cardiac pacemaker; R01.1 Cardiac murmur, unspecified; Z88.8 Allergy status to other drugs, medicaments and biological substances; Z87.19 Personal history of other diseases of the digestive system; Z98.42 Cataract extraction status, left eye; Z98.41 Cataract extraction status, right eye
CPT/HCPCS: 36415; 71046; 71250; 76700; 78582; 80048; 80053; 83880; 84145; 84484; 85025; 85379; 85610; 85652; 85730; 86140; 87636; 93005; 93306; 94640; 94760; 96365; 96366; 96375; 96376; 99285

== ENCOUNTER 2024-07-25 15:44 | Inpatient (IN) | payer MEDICARE, OTHER ==
--- NOTE | 2024-07-25 15:59 | ED ---
Arrhythmia/Palpitations HPI - General Chief Complaint: Arrhythmia/Palpitations Stated Complaint: DANIELITO, chest pain Time Seen by Provider: 07/25/24 15:49 Source: patient, RN notes reviewed, old records reviewed Mode of arrival: wheelchair Limitations: no limitations - History of Present Illness Initial Comments: This is a 74-year-old male complex medical history coming in for cardiac illness. Patient does have a pacemaker recently interrogated and seen by cardiology this past week. Patient states has been in A-fib for about a week with increasing worsening symptoms weakness occasional dyspnea overall not feeling well. Patient does wear home O2, no longer smoker. Patient denying any chest pain is feels like his heart is beating fast in his chest, but no specific chest pain. Patient has having some nausea no pain MD Complaint: rapid heart beat, "heart racing", atrial fibrillation -: days(s) (4) Context: occurred during rest, occurred during exertion Arrhythmia History: atrial fibrillation, on anti-coagulants Associated Symptoms: shortness of breath, near-syncope, anxiety Treatments Prior to Arrival: beta-mt - Related Data Home Medications Medication Instructions Recorded Confirmed Colchicine 0.6 mg PO DAILY 08/02/16 07/04/24 Tiotropium 2.5 Mcg/Puff [Spiriva 1 puff INHALATION RT-BID 01/14/23 07/04/24 Respimat 2.5 Mcg] traZODone HCL [Desyrel] 50 mg PO HS 01/14/23 07/04/24 Cholecalciferol [Vitamin D3 (25 25 mcg PO DAILY 02/11/23 07/04/24 Mcg = 1000 Iu)] Multivit-Min/FA/Lycopen/Lutein 1 tab PO DAILY 02/11/23 07/04/24 [Centrum Silver Tablet] Albuterol Inhaler [Ventolin Hfa 2 puff INHALATION RT-Q6H PRN 06/30/23 07/04/24 Inhaler] Pantoprazole Sodium [Protonix] 20 mg PO BID 06/30/23 07/04/24 Fluticasone Propion/Salmeterol 1 puff INHALATION RT-BID 01/14/24 07/04/24 [Wixela 500-50 Inhub] Ferrous Sulfate [Iron (65 MG 325 mg PO DAILY 02/06/24 07/04/24 Elemental)] Folic Acid 1 mg PO DAILY 02/06/24 07/04/24 Naloxone HCl [Narcan] 4 mg NASAL DIRECTED PRN 02/06/24 07/04/24 Diclofenac Sodium Gel [Voltaren 1% 1 applic TOPICAL QID PRN 05/14/24 07/04/24 Gel] predniSONE 5 mg PO DAILY 07/04/24 07/04/24 Previous Rx's Medication Instructions Recorded Ipratropium-Albuterol Nebulize 3 ml INHALATION RT-QID #120 each 07/04/23 [Duoneb 0.5 mg-3 mg/3 ml Soln] Ipratropium-Albuterol Nebulize 3 ml INHALATION RT-Q4H PRN each 02/07/24 [Duoneb 0.5 mg-3 mg/3 ml Soln] Apixaban [Eliquis] 2.5 mg PO BID tab 07/09/24 Aspirin EC [Ecotrin Low Dose] 81 mg PO DAILY #30 tab 07/09/24 Atorvastatin [Lipitor] 20 mg PO HS tab 07/09/24 Dapagliflozin Propanediol [Farxiga] 5 mg PO DAILY tab 07/09/24 Furosemide [Lasix] 40 mg PO DAILY tab 07/09/24 HYDROcodone/APAP 10-325MG [[place] 1 tab PO QID PRN #12 tab 07/09/24 10-325] Metoprolol Succinate (ER) [Toprol 50 mg PO BID tab 07/09/24 XL] amLODIPine [Norvasc] 5 mg PO DAILY tab 07/09/24 guaiFENesin [Mucinex] 600 mg PO Q12HR tab 07/09/24 Allergies Allergy/AdvReac Type Severity Reaction Status Date / Time allopurinol AdvReac Gout Verified 07/25/24 15:48 atenolol AdvReac Fatigue,Bra Verified 07/25/24 15:48 dycardia doxazosin AdvReac Delerium,Di Verified 07/25/24 15:48 zziness hydralazine AdvReac Unknown Verified 07/25/24 15:48 lisinopril AdvReac Cough Verified 07/25/24 15:48 metoprolol [From Lopressor] AdvReac Chest Pain Verified 07/25/24 15:48 omalizumab [From Xolair] AdvReac urticaria Verified 07/25/24 15:48 Review of Systems ROS Statement: Those systems with pertinent positive or pertinent negative responses have been documented in the HPI. ROS Other: All systems not noted in ROS Statement are negative. 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 Hospitalized last week for CHF & Pneumonia. Irr. heart rate @ times. liver cancer Last Myocardial Infarction Date:: 2022 History of Any Multi-Drug Resistant Organisms: None Reported Past Surgical History: Back Surgery, Heart Catheterization, Hernia Repair, Orthopedic Surgery, Pacemaker Additional Past Surgical History / Comment(s): liver ablation done at [place] for tx of hepatocellular carcinoma,hemorrhoids ,back surgery, cataract, skin cancer, inguinal hernia, abdominal hernia, left shoulder, right wrist, growth removed vocal cord, PAROTID GLAND REMOVED DUE TO CANCER. Past Anesthesia/Blood Transfusion Reactions: No Reported Reaction Additional Past Anesthesia/Blood Transfusion Reaction / Comment(s): no hx blood transfusion Type of Cardiac Device: Permanent Pacemaker Device Placement Date:: 01/20/24 Past Psychological History: No Psychological Hx Reported Smoking Status: Former smoker Past Alcohol Use History: None Reported Past Drug Use History: None Reported - Past Family History Father Family Medical History: Cancer General Exam Limitations: no limitations General appearance: alert, in no apparent distress, anxious Head exam: Present: atraumatic, normocephalic, normal inspection Eye exam: Present: normal appearance, PERRL, EOMI. Absent: scleral icterus, conjunctival injection, periorbital swelling ENT exam: Present: normal exam, mucous membranes moist Neck exam: Present: normal inspection. Absent: tenderness, meningismus, lymphadenopathy Respiratory exam: Present: normal lung sounds bilaterally. Absent: respiratory distress, wheezes, rales, rhonchi, stridor Cardiovascular Exam: Present: tachycardia, irregular rhythm, normal heart sounds. Absent: systolic murmur, diastolic murmur, rubs, gallop, clicks GI/Abdominal exam: Present: soft, normal bowel sounds. Absent: distended, tenderness, guarding, rebound, rigid Extremities exam: Present: normal inspection, full ROM, normal capillary refill. Absent: tenderness, pedal edema, joint swelling, calf tenderness Back exam: Present: normal inspection Neurological exam: Present: alert, oriented X3, CN II-XII intact Psychiatric exam: Present: normal affect, normal mood Skin exam: Present: warm, dry, intact, normal color. Absent: rash Course Vital Signs 07/25/24 07/25/24 07/25/24 15:45 16:30 16:45 Temperature 97.4 F L Pulse Rate 120 H 103 H 97 Respiratory 17 20 Rate Blood Pressure 141/82 132/92 O2 Sat by Pulse 94 L 96 Oximetry 07/25/24 07/25/24 16:54 17:29 Temperature Pulse Rate 83 85 Respiratory 18 Rate Blood Pressure 126/94 O2 Sat by Pulse 94 L Oximetry - Reevaluation(s) Reevaluation #1: 07/25/24 16:28 Medical records reviewed Reevaluation #2: 07/25/24 18:34 Patient heart rate is improved but very irritable with any change in position Reevaluation #3: 07/25/24 18:34 Patient informed of results questions answered Reevaluation #4: Was pt. sent in by a medical professional or institution (, PA, COMMERCIAL SHEET METAL FOREMAN, urgent care, hospital, or intermediate...) When possible be specific @ -no Did you speak to anyone other than the patient for history (EMS, parent, family, police, friend...)? What history was obtained from this source @ -no Did you review nursing and triage notes (agree or disagree)? Why? @ -agree Are old charts reviewed (outside hosp., previous admission, EMS record, old EKG, old radiological studies, urgent care reports/EKG's, intermediate records)? Report findings @ -yes Differential Diagnosis (chest pain, altered mental status, abdominal pain women, abdominal pain men, vaginal bleeding, weakness, fever, dyspnea, syncope, headache, dizziness, GI bleed, back pain, seizure, CVA, palpatations, mental health, musculoskeletal)? @ -prior EKG interpreted by me (3pts min.). @ -yes X-rays interpreted by me (1pt min.). @ -yes negative for acute disease CT interpreted by me (1pt min.). @ -no U/S interpreted by me (1pt. min.). @ -no What testing was considered but not performed or refused? (CT, X-rays, U/S, labs)? Why? @ -none What meds were considered but not given or refused? Why? @ -none Did you discuss the management of the patient with other professionals (professionals i.e. , PA, COMMERCIAL SHEET METAL FOREMAN, lab, RT, psych nurse, social media senior associate, probate lawyer, teacher, supply requirements officer, rehabilitation caseworker)? Give summary @ -no Was smoking cessation discussed for >3mins.? @ -no Was critical care preformed (if so, how long)? @ -no Were there social determinants of health that impacted care today? How? (Homelessness, low income, unemployed, alcoholism, drug addiction, transportation, low edu. Level, literacy, decrease access to med. care, fpc, re hab)? @ -none Was there de-escalation of care discussed even if they declined (Discuss DNR or withdrawal of care, Hospice)? DNR status @ -no What co-morbidities impacted this encounter? (DM, HTN, Smoking, COPD, CAD, Cancer, CVA, ARF, Chemo, Hep., AIDS, mental health diagnosis, sleep apnea, morbid obesity)? @ -none Was patient admitted / discharged? Hospital course, mention meds given and route, prescriptions, significant lab abnormalities, going to OR and other pertinent info. @ - Undiagnosed new problem with uncertain prognosis? @ -no Drug Therapy requiring intensive monitoring for toxicity (Heparin, Nitro, Insulin, Cardizem)? @ -no Were any procedures done? @ -no Diagnosis/symptom? @ - Acute, or Chronic, or Acute on Chronic? @ -Acute Uncomplicated (without systemic symptoms) or Complicated (systemic symptoms)? @ -Complicated Side effects of treatment? @ -no Exacerbation, Progression, or Severe Exacerbation? @ -exacerbation Poses a threat to life or bodily function? How? (Chest pain, [place], [place], pneumonia, PE, COPD, DKA, ARF, appy, cholecystitis, CVA, Diverticulitis, Homicidal, Suicidal, threat to staff... and all critical care pts) @ -yes Reevaluation #5: Differential Palpitations Ventricular arrhythmias, atrial arrhythmias, myocardial infarction, anemia, thyrotoxicosis, electrolyte imbalance, hypokalemia, pulmonary embolism, pulmonary disease, drugs, alcohol, anxiety, stress.... This is not meant to be an all-inclusive list. - Consultations Consultation #1: Spoke with [facility] who agrees to admit this patient EKG Findings - EKG Comments: EKG Findings:: EKG is A-fib RVR 103 QRS 116 QTc 425 - EKG Results: EKG: interpreted by EKATERINA Medical Decision Making - Medical Decision Making 74 male to the ER for evaluation patient will be admitted history of atrial fibrillation atrial fibrillation with RVR COPD palpitations weakness, patient mainly concerned about his atrial fibrillation [id number] with COPD and hypoxia - Lab Data Result diagrams: 07/25/24 16:24 07/25/24 16:24 Lab Results 07/25/24 07/25/24 07/25/24 Range/Units 16:24 16:24 16:24 WBC 2.28 L (4.50-10.00) 10*3/uL RBC 4.10 L (4.40-5.60) 10*6/uL Hgb 11.2 L (13.0-17.0) g/dL Hct 34.9 L (39.6-50.0) % MCV 85.1 (80.0-97.0) fL MCH 27.3 (27.0-32.0) pg MCHC 32.1 (32.0-37.0) g/dL Plt Count 79 L (140-440) 10*3/uL MPV 10.8 (9.5-12.2) fL Immature Gran % (Auto) 0 % Neutrophils % 72.4 % Lymphocytes % 13.6 % Monocytes % 6.1 % Eosinophils % 7.0 % Basophils % 0.9 % Immature Gran # 0.00 (0.00-0.04) 10*3/uL Neutrophils # 1.65 L (1.80-7.70) 10*3/uL Lymphocytes # 0.31 L (0.90-5.00) 10*3/uL Monocytes # 0.14 L (0.20-1.00) 10*3/uL Eosinophils # 0.16 (0.04-0.35) 10*3/uL Basophils # 0.02 (0.00-0.10) 10*3/uL PT 12.1 (10.0-12.5) sec INR 1.1 (<1.2) APTT 30.2 H (22.0-30.0) sec Sodium 139 (137-145) mmol/L Potassium 3.9 (3.5-5.1) mmol/L Chloride 101 (98-107) mmol/L Carbon Dioxide 25 (22-30) mmol/L Anion Gap 13 mmol/L BUN 60 H (9-20) mg/dL Creatinine 2.72 H (0.66-1.25) mg/dL Est GFR (CKD-EPI)AfAm 26 (>60 ml/min/1.73 sqM) Est GFR (CKD-EPI)NonAf 22 (>60 ml/min/1.73 sqM) Glucose 101 H (74-99) mg/dL Calcium 9.3 (8.4-10.2) mg/dL Phosphorus 4.6 H (2.5-4.5) mg/dL Magnesium 1.7 (1.6-2.3) mg/dL Total Bilirubin 0.8 (0.2-1.3) mg/dL AST 27 (17-59) U/L ALT 17 (4-49) U/L Alkaline Phosphatase 94 (38-126) U/L Troponin I (0.000-0.034) ng/mL NT-Pro-B Natriuret Pep 02728 pg/mL Total Protein 7.0 (6.3-8.2) g/dL Albumin 3.9 (3.5-5.0) g/dL TSH 1.150 (0.465-4.680) mIU/L 07/25/24 Range/Units 16:24 WBC (4.50-10.00) 10*3/uL RBC (4.40-5.60) 10*6/uL Hgb (13.0-17.0) g/dL Hct (39.6-50.0) % MCV (80.0-97.0) fL MCH (27.0-32.0) pg MCHC (32.0-37.0) g/dL Plt Count (140-440) 10*3/uL MPV (9.5-12.2) fL Immature Gran % (Auto) % Neutrophils % % Lymphocytes % % Monocytes % % Eosinophils % % Basophils % % Immature Gran # (0.00-0.04) 10*3/uL Neutrophils # (1.80-7.70) 10*3/uL Lymphocytes # (0.90-5.00) 10*3/uL Monocytes # (0.20-1.00) 10*3/uL Eosinophils # (0.04-0.35) 10*3/uL Basophils # (0.00-0.10) 10*3/uL PT (10.0-12.5) sec INR (<1.2) APTT (22.0-30.0) sec Sodium (137-145) mmol/L Potassium (3.5-5.1) mmol/L Chloride (98-107) mmol/L Carbon Dioxide (22-30) mmol/L Anion Gap mmol/L BUN (9-20) mg/dL Creatinine (0.66-1.25) mg/dL Est GFR (CKD-EPI)AfAm (>60 ml/min/1.73 sqM) Est GFR (CKD-EPI)NonAf (>60 ml/min/1.73 sqM) Glucose (74-99) mg/dL Calcium (8.4-10.2) mg/dL Phosphorus (2.5-4.5) mg/dL Magnesium (1.6-2.3) mg/dL Total Bilirubin (0.2-1.3) mg/dL AST (17-59) U/L ALT (4-49) U/L Alkaline Phosphatase (38-126) U/L Troponin I 0.018 (0.000-0.034) ng/mL NT-Pro-B Natriuret Pep pg/mL Total Protein (6.3-8.2) g/dL Albumin (3.5-5.0) g/dL TSH (0.465-4.680) mIU/L - Radiology Data Radiology results: report reviewed (Chest x-ray is negative for acute disease), image reviewed Critical Care Time Critical Care Time: Yes Total Critical Care Time: 31 Disposition Clinical Impression: Tachycardia, Palpitations, Atrial fibrillation, COPD (chronic obstructive pulmonary disease), Congestive heart failure, Dyspnea, CHF exacerbation, Atrial fibrillation with RVR, Acute kidney injury Disposition: ADMITTED IP TO THIS HOSP Condition: Fair Is patient prescribed a controlled substance at d/c from ED?: No Referrals: Drew Medrano MD [Primary Care Provider] - 1-2 days Time of Disposition: 18:30
[2024-07-25] MEDS: SODIUM CHLORIDE 0.9% 1,000 ML IV ONE (16:26)
[2024-07-25] MEDS: DILTIAZEM 125 MG in SODIUM CHLORIDE 0.9% 100 ML IV SCH (16:27)
[2024-07-25] MEDS: DILTIAZEM DRIP BOLUS FROM BAG 1 MG SOLN IV ONE (16:27)
[2024-07-25] MEDS: IPRATROPIUM-ALBUTEROL 3 ML NEB INHALATION STA (16:44)
[2024-07-25 17:00] LABS: Basophils # (A) 0.02 10*3/uL (0.00-0.10); Basophils % (A) 0.9 %; Eosinophils # (A) 0.16 10*3/uL (0.04-0.35); HCT 34.9 % (39.6-50.0); HGB 11.2 g/dL (13.0-17.0); Lymphocytes # (A) 0.31 10*3/uL (0.90-5.00); Lymphocytes % (A) 13.6 %; MCH 27.3 pg (27.0-32.0); MCHC 32.1 g/dL (32.0-37.0); MCV 85.1 fL (80.0-97.0); Mean Platelet Volume 10.8 fL (9.5-12.2); Monocytes # (A) 0.14 10*3/uL (0.20-1.00); Monocytes % (A) 6.1 %; Neutrophils # (A) 1.65 10*3/uL (1.80-7.70); Neutrophils % (A) 72.4 %; RDW 17.1 % (11.5-14.5); WBC 2.28 10*3/uL (4.50-10.00)
[2024-07-25 17:05] LABS: ALT 17 U/L (4-49); AST 27 U/L (17-59); African American GFR (CKD) 26 (>60 ml/min/1.73 sqM); Albumin 3.9 g/dL (3.5-5.0); Alkaline Phosphatase 94 U/L (38-126); Anion Gap 13 mmol/L; Blood Urea Nitrogen 60 mg/dL (9-20); Calcium 9.3 mg/dL (8.4-10.2); Carbon Dioxide 25 mmol/L (22-30); Chloride 101 mmol/L (98-107); Glucose 101 mg/dL (74-99); Magnesium 1.7 mg/dL (1.6-2.3); Non-African American GFR(CKD) 22 (>60 ml/min/1.73 sqM); Phosphorus 4.6 mg/dL (2.5-4.5); Potassium 3.9 mmol/L (3.5-5.1); Sodium 139 mmol/L (137-145); Total Bilirubin 0.8 mg/dL (0.2-1.3)
[2024-07-25 17:08] LABS: Platelet Count 79 10*3/uL (140-440)
[2024-07-25 17:13] LABS: NT-Pro-B-Type Natriuretic Pept 14200 pg/mL
[2024-07-25 17:24] LABS: INR 1.1 (<1.2); Partial Thromboplastin Time 30.2 sec (22.0-30.0); Prothrombin Time 12.1 sec (10.0-12.5)
[2024-07-25] MEDS ORDERED: MORPHINE SULFATE 4 MG/ML SYRINGE IV PRN (18:31)
[2024-07-25] MEDS ORDERED: NALOXONE 0.4 MG/ML 1 ML VIAL IV PRN (18:31)
[2024-07-25] MEDS: SODIUM CHLORIDE 0.9% 1,000 ML IV SCH (19:01)
--- NOTE | 2024-07-25 19:03 | XR ---
EXAMINATION TYPE: XR chest 2V DATE OF EXAM: 07/25/2024 6:47 PM COMPARISON: Prior chest radiograph 06/05/2024. CLINICAL INDICATION: Male, 74 years old with history of sob; [facility] TECHNIQUE: XR chest 2V Frontal and lateral views of the chest. FINDINGS: Cardiomegaly and mild pulmonary vascular congestive changes. Trace bilateral pleural effusions. Prominence of the aortic knob. Bibasilar atelectasis. Left chest wall cardiac pacemaker device with leads overlying the region of the right atrium and righ t ventricle. No pneumothorax. No acute osseous abnormality. IMPRESSION: Cardiomegaly and pulmonary vascular congestive changes with trace effusions. [facility], , 07/25/2024 7:01 PM
[2024-07-25] MEDS ORDERED: ALBUTEROL NEBULIZED 2.5 MG/3 ML INHALATION PRN (22:37)
[2024-07-25] MEDS: traZODone HCL 50 MG TAB PO SCH (23:32)
[2024-07-25] MEDS: guaiFENesin 600 MG TABLET.ER PO SCH (23:32)
[2024-07-25] MEDS: carvediloL 12.5 MG TAB PO SCH (23:32)
[2024-07-25] MEDS: DOXYCYCLINE 100 MG TABLET PO SCH (23:32)
[2024-07-25] MEDS: APIXABAN 2.5 MG TABLET PO SCH (23:32)
[2024-07-25] MEDS: IPRATROPIUM-ALBUTEROL 3 ML NEB INHALATION PRN (23:53)
[2024-07-25] MEDS: SYMBICORT 160-4.5 MCG INHALER INHALATION SCH (23:53)
[2024-07-25] MEDS: TIOTROPIUM 2.5 MCG INHALER INHALATION SCH (23:53)
[2024-07-26] MEDS: PANTOPRAZOLE 40 MG TABLET PO SCH (06:05)
--- NOTE | 2024-07-26 06:54 | XR ---
EXAMINATION TYPE: XR chest 1V DATE OF EXAM: 07/26/2024 COMPARISON: 05/15/2024 CLINICAL INDICATION: Male, 74 years old with history of sob; TECHNIQUE: Single frontal view of the chest is obtained. Findings: There is stable moderate possibly marked cardiomegaly. The left hemidiaphragm is obscured possibly re lated to combination of small pleural effusion, pneumonic infiltrate or atelectasis. No interval powell ge compared to previous. The right lung is clear. There is no pneumothorax. There is a 2-lead cardiac pacemaker. The osseous structures are intact. IMPRESSION: 1.Stable cardiomegaly without pulmonary vascular congestion. 2. Cannot exclude acute cardiopulmonary process in the left lung base such as pleural effusion, atele ctasis or pneumonic infiltrate. PA and lateral views the chest recommended. [facility], , 07/26/2024 6:52 AM
[2024-07-26] MEDS ORDERED: SYMBICORT 160-4.5 MCG INHALER INHALATION SCH (08:00)
[2024-07-26] MEDS: ALBUTEROL NEBULIZED 2.5 MG/3 ML INHALATION SCH (08:07)
[2024-07-26] MEDS: FERROUS SULFATE 325 MG TAB PO SCH (08:28)
[2024-07-26] MEDS: SENNOSIDES-DOCUSATE SODIUM 1 EACH TAB PO SCH (08:28)
[2024-07-26] MEDS: predniSONE 10 MG TAB PO SCH (08:28)
[2024-07-26] MEDS: FUROSEMIDE 40 MG TAB PO SCH (08:28)
[2024-07-26] MEDS: FOLIC ACID 1 MG TAB PO SCH (08:28)
[2024-07-26] MEDS: DAPAGLIFLOZIN PROPANEDIOL 5 MG TABLET PO SCH (08:28)
[2024-07-26] MEDS: MULTIVITAMINS, THERA 1 EACH TAB PO SCH (08:28)
[2024-07-26] MEDS: CHOLECALCIFEROL 25 MCG (1000 IU) TABLET PO SCH (08:28)
[2024-07-26] MEDS: COLCHICINE 0.6 MG EACH PO SCH (08:29)
[2024-07-26] MEDS ORDERED: predniSONE 5 MG TAB PO SCH (09:00)
[2024-07-26] MEDS ORDERED: PANTOPRAZOLE 40 MG/10 ML VIAL IV SCH (09:00)
--- NOTE | 2024-07-26 09:41 | P.CNPUL ---
History of Present Illness Consult date: 07/26/24 Requesting physician: Michelle Evans Reason for consult: COPD Chief complaint: Palpitations, shortness of breath History of present illness: This is a 74-year-old male patient with a history of congestive heart failure, atrial fibrillation anticoagulated with Eliquis, chronic obstructive pulmonary disease, permanent pacemaker implantation, hepatocellular carcinoma status post ablation, former smoker for approximately 45 years. He has had multiple admissions for COPD, CHF and A-fib RVR. Most recent discharge was July 09, 2024. He presented to the emergency room here again yesterday with complaints of palpitations and shortness of breath. He was found to be in atrial fibrillation with a rapid ventricular response. Chest x-ray revealed cardiomegaly and pulmonary vascular congestion with trace effusions. White count 2.2. Hemoglobin 11.2. Platelets 79,000. Sodium 139. Potassium 3.9. Bicarb 25. BUN 60. Creatinine 2.72. Glucose 101. Troponin negative x 3. proBNP 14,200. He is seen today in consultation on the regular medical floor. He is sitting up at the bedside. Awake and alert in no acute distress. He is maintaining O2 saturations in the 90s on 2 L/min per nasal cannula. He does have dyspnea with minimal exertion. He is currently on a Cardizem drip at 5 mg/h. Review of Systems REVIEW OF SYSTEMS: CONSTITUTIONAL: Denies any recent significant weight loss or weight gain. EYES: Denies change in vision. EARS, NOSE, MOUTH, THROAT: Denies headaches, denies sore throat. CARDIOVASCULAR: Positive for palpitations no syncopal episodes. RESPIRATORY: Positive for shortness of breath, no cough, congestion or hemoptysis. GASTROINTESTINAL: Denies change in appetite, denies abdominal pain GENITOURINARY: Denies hematuria, denies infections. MUSKULOSKELETAL: Denies pain, denies swelling. INTEGUMENTARY: Denies rash, denies eczema. NEUROLOGICAL: Denies recent memory loss, no recent seizure activity. PSYCHIATRIC: Denies anxiety, denies depression. HEMATOLOGIC/LYMPHATIC: Denies anemia, denies enlarged lymph nodes. 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 Hospitalized last week for CHF & Pneumonia. Irr. heart rate @ times. liver cancer Last Myocardial Infarction Date:: 2022 History of Any Multi-Drug Resistant Organisms: None Reported Past Surgical History: Back Surgery, Heart Catheterization, Hernia Repair, Orthopedic Surgery, Pacemaker Additional Past Surgical History / Comment(s): liver ablation done at [facility] for tx of hepatocellular carcinoma,hemorrhoids ,back surgery, cataract, skin cancer, inguinal hernia, abdominal hernia, left shoulder, right wrist, growth removed vocal cord, PAROTID GLAND REMOVED DUE TO CANCER. Past Anesthesia/Blood Transfusion Reactions: No Reported Reaction Additional Past Anesthesia/Blood Transfusion Reaction / Comment(s): no hx blood transfusion Type of Cardiac Device: Permanent Pacemaker Device Placement Date:: 01/20/24 Past Psychological History: No Psychological Hx Reported Smoking Status: Former smoker Past Alcohol Use History: None Reported Additional Past Alcohol Use History / Comment(s): Smoking on and off for 45 years. Past Drug Use History: None Reported - Past Family History Father Family Medical History: Cancer Medications and Allergies Home Medications Medication Instructions Recorded Confirmed Type Colchicine 0.6 mg PO DAILY 08/02/16 07/25/24 History Tiotropium 2.5 Mcg/Puff [Spiriva 1 puff INHALATION RT-BID 01/14/23 07/25/24 H istory Respimat 2.5 Mcg] traZODone HCL [Desyrel] 50 mg PO HS 01/14/23 07/25/24 History Cholecalciferol [Vitamin D3 (25 25 mcg PO DAILY 02/11/23 07/25/24 History Mcg = 1000 Iu)] Multivit-Min/FA/Lycopen/Lutein 1 tab PO DAILY 02/11/23 07/25/24 History [Centrum Silver Tablet] Albuterol Inhaler [Ventolin Hfa 2 puff INHALATION RT-Q6H PRN 06/30/23 07/25/24 History Inhaler] Pantoprazole Sodium [Protonix] 20 mg PO BID 06/30/23 07/25/24 History Fluticasone Propion/Salmeterol 1 puff INHALATION RT-BID 01/14/24 07/25/24 History [Wixela 500-50 Inhub] Ferrous Sulfate [Iron (65 MG 325 mg PO DAILY 02/06/24 07/25/24 History Elemental)] Folic Acid 1 mg PO DAILY 02/06/24 07/25/24 History Naloxone HCl [Narcan] 4 mg NASAL DIRECTED PRN 02/06/24 07/25/24 History Ipratropium-Albuterol Nebulize 3 ml INHALATION RT-Q4H PRN each 02/07/24 07/25/24 Rx [Duoneb 0.5 mg-3 mg/3 ml Soln] Diclofenac Sodium Gel [Voltaren 1% 1 applic TOPICAL QID PRN 05/14/24 07/25/24 History Gel] predniSONE 5 mg PO DAILY 07/04/24 07/25/24 History Dapagliflozin Propanediol [Farxiga] 5 mg PO DAILY tab 07/09/24 07/25/24 Rx Furosemide [Lasix] 40 mg PO DAILY tab 07/09/24 07/25/24 Rx HYDROcodone/APAP 10-325MG [[place] 1 tab PO QID PRN #12 tab 07/09/24 07/25/24 Rx 10-325] guaiFENesin [Mucinex] 600 mg PO Q12HR tab 07/09/24 07/25/24 Rx ALPRAZolam [Xanax] 0.25 mg PO Q6H PRN 07/25/24 07/25/24 History Apixaban [Eliquis] 2.5 mg PO Q12H 07/25/24 07/25/24 History Doxycycline Monohydrate 100 mg PO BID 07/25/24 07/25/24 History Sennosides-Docusate Sodium 1 tab PO DAILY 07/25/24 07/25/24 History [Senokot-S] carvediloL [Coreg] 12.5 mg PO BID 07/25/24 07/25/24 History Allergies Allergy/AdvReac Type Severity Reaction Status Date / Time allopurinol AdvReac Gout Verified 07/25/24 20:00 atenolol AdvReac Fatigue,Bra Verified 07/25/24 20:00 dycardia doxazosin AdvReac Delerium,Di Verified 07/25/24 20:00 zziness hydralazine AdvReac Unknown Verified 07/25/24 20:00 lisinopril AdvReac Cough Verified 07/25/24 20:00 metoprolol [From Lopressor] AdvReac Chest Pain Verified 07/25/24 20:00 omalizumab [From Xolair] AdvReac urticaria Verified 07/25/24 20:00 Physical Exam Vitals: Vital Signs Temp Pulse Pulse Resp BP BP BP 07/26/24 08:19 92 07/26/24 08:08 90 07/26/24 08:07 07/26/24 06:50 97.7 F 90 17 156/80 07/26/24 06:27 124/75 07/26/24 01:13 95 18 07/26/24 00:50 97.9 F 95 18 118/69 07/26/24 00:03 96 07/25/24 23:55 96 07/25/24 21:48 99 18 07/25/24 21:10 97.4 F L 99 18 148/73 07/25/24 20:25 85 18 142/98 07/25/24 19:04 98.2 F 90 20 137/99 07/25/24 17:29 85 18 126/94 07/25/24 16:54 83 07/25/24 16:45 97 07/25/24 16:30 103 H 20 132/92 07/25/24 15:45 97.4 F L 120 H 17 141/82 Pulse Ox 07/26/24 08:19 07/26/24 08:08 07/26/24 08:07 96 07/26/24 06:50 96 07/26/24 06:27 07/26/24 01:13 07/26/24 00:50 94 L 07/26/24 00:03 07/25/24 23:55 07/25/24 21:48 07/25/24 21:10 94 L 07/25/24 20:25 95 07/25/24 19:04 95 07/25/24 17:29 94 L 07/25/24 16:54 07/25/24 16:45 07/25/24 16:30 96 07/25/24 15:45 94 L Intake and Output 07/25/24 07/26/24 07/26/24 22:59 06:59 14:59 Intake Total 300 Output Total 250 450 Balance 50 -450 Intake: Oral 300 Output: Urine 250 450 Other: Voiding Method Toilet Toilet Weight 83.915 kg 88 kg GENERAL EXAM: Alert, 74-year-old male, on 2 L nasal cannula, fairly comfortable in no apparent distress. HEAD: Normocephalic. EYES: Normal reaction of pupils, equal size. NOSE: Clear with pink turbinates. THROAT: No erythema or exudates. NECK: No masses, no JVD. CHEST: No chest wall deformity. LUNGS: Equal air entry with crackles in the posterior bases, diminished. CVS: S1 and S2 normal with an audible murmur, irregular rhythm. ABDOMEN: No hepatosplenomegaly, normal bowel sounds, no guarding or rigidity. SPINE: No scoliosis or deformity SKIN: No rashes CENTRAL NERVOUS SYSTEM: No focal deficits, tone is normal in all 4 extremities. EXTREMITIES: There is no peripheral edema. No clubbing, no cyanosis. Peripheral pulses are intact. Results - Laboratory Findings CBC and BMP: 07/25/24 16:24 07/25/24 16:24 PT/INR, D-dimer PT 12.1 sec (10.0-12.5) 07/25/24 16:24 INR 1.1 (<1.2) 07/25/24 16:24 Abnormal lab findings: Abnormal Labs 07/25/24 07/25/24 07/25/24 16:24 16:24 16:24 WBC 2.28 L RBC 4.10 L Hgb 11.2 L Hct 34.9 L Plt Count 79 L Neutrophils # 1.65 L Lymphocytes # 0.31 L Monocytes # 0.14 L APTT 30.2 H BUN 60 H Creatinine 2.72 H Glucose 101 H Phosphorus 4.6 H - Diagnostic Findings Chest x-ray: image reviewed Assessment and Plan Assessment: Acute on chronic hypoxemic respiratory failure secondary to an acute exacerbation of systolic congestive heart failure Oxygen dependent, steroid-dependent, chronic obstructive pulmonary disease, FEV1 value of 59% of predicted Bicuspid aortic valve with moderate to severe aortic stenosis Acute on chronic kidney disease Hypertension Proximal atrial fibrillation, anticoagulated with Eliquis Post pacemaker implantation Former heavy smoker quit 1 year ago History of liver cirrhosis with previous hepatitis C and hepatocellular carcin tara, status post ablation 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 Number of minutes spent on the visit: 20 Dictation was produced using [employer] dictation software. Please excuse any grammatical, word or spelling errors. Time with Patient: Greater than 30
[2024-07-26] MEDS: carvediloL 12.5 MG TAB PO STA (10:08)
[2024-07-26] MEDS: hydrALAZINE HCL 25 MG TAB PO SCH (10:08)
[2024-07-26] MEDS: HYDROcodone/APAP 10-325MG 1 EACH TAB PO PRN (10:15)
[2024-07-26 10:18] LABS: ALT 13 U/L (10-49); AST 22 U/L (14-35); Albumin 3.4 g/dL (3.8-4.9); Albumin/Globulin Ratio 1.42 Ratio (1.60-3.17); Alkaline Phosphatase 74 U/L (41-126); Blood Urea Nitrogen 53.6 mg/dL (9.0-27.0); Calcium 8.5 mg/dL (8.7-10.3); Chloride 107 mmol/L (96-109); Globulin 2.4 g/dL (1.6-3.3); Glucose 90 mg/dL (70-110); Magnesium 1.7 mg/dL (1.5-2.4); Phosphorus 3.6 mg/dL (2.4-5.1); Potassium 3.6 mmol/L (3.5-5.5); Sodium 142 mmol/L (135-145); Total Bilirubin 0.8 mg/dL (0.3-1.2); Total Protein 5.8 g/dL (6.2-8.2)
--- NOTE | 2024-07-26 11:00 | P.CRDCN ---
History of Present Illness Consult date: 07/26/24 Consult reason: atrial fibrillation (RVR), congestive heart failure History of present illness: This is a 74-year-old male patient of Dr. Post with past medical history of hypertension, paroxysmal atrial fibrillation, moderate to severe aortic stenosis, chronic kidney disease, prior parotid gland cancer s/p resection and radiation, prior liver cancer status post radiofrequency ablation, thrombocytopenia, severe aortic regurgitation, cardiomyopathy with EF 45 to 50% and recently decreased to 35 to 40%, ascending thoracic aorta measuring 4.[address], PFO, chronic anemia, status post biventricular pacemaker. We have been asked to evaluate patient for A-fib with RVR and CHF. Patient states that he could feel his heart racing at home up to 131. Patient was recently hospitalized on 07/03 at which time he presented with shortness of breath. Echocardiogram revealed EF of 35 to 40% with moderate aortic stenosis, moderate aortic regurgitation. There was consideration for heart catheterization but it was deferred due to pancytopenia and prior heart cath from 2022 was not significantly abnormal. Patient was started on Eliquis 2.5 mg twice daily and he was started on Farxiga. He had an office visit on 07/21 at which time a devic e check was done that AP 73.3%, [employer] 0.3%, atrial fibrillation 9.6% and patient was in A-fib with RVR. It was recommended that patient be transition from metoprolol to Coreg and consider digoxin. A cardiac amyloidosis workup was started and patient states he is waiting for a call from [facility] regarding MRI. Patient also states that he had lab work done at Dr. Del Valle's office but we will plan to repeat lambda and kappa. Patient was evaluated by Dr. Francis in the past and it was deemed not a good candidate for atrial fibrillation ablation and recommended a biventricular pacemaker which was done. Discussed with the patient he may need to be reconsidered for ablation. At this time patient states that he feels a little bit better but he still having brief episodes of palpitations. He states when he gets up to the bathroom and does start racing. In the recent past, he has had good days but it feels like they are getting less frequent. Light exercise seems to trigger the atrial fibrillation. Patient has a little lower extremity edema and he denies any weight gain. He states he has not been urinating very much. Patient is currently rate controlled. Blood pressure 156/80, heart rate 90, pulse ox 96% on 2 L nasal cannula. Patient has been started on Cardizem bolus 20 mg followed by Cardizem drip currently at 5 mg/h. -EKG: -Chest x-ray: -Laboratory studies: WBC 2.2, hemoglobin 9.2, platelet count 79. BUN 60 creatinine 2.72 -Home cardiac medications: Amlodipine 5 mg daily, Eliquis 2.5 mg every 12 hours, Coreg 12.5 mg twice daily, Lasix 40 mg daily, also on Farxiga 5 mg daily. - Review Of Systems: At the time of my exam: CONSTITUTIONAL: Denies fever or chills. HEENT: Denies blurred vision, vision changes, or eye pain. Denies hemoptysis CARDIOVASCULAR: Denies chest pain. Denies orthopnea. Denies PND. Denies palpitations RESPIRATORY: Denies shortness of breath. GASTROINTESTINAL: Denies abdominal pain. Denies nausea or vomiting. HEMATOLOGIC: Denies bleeding disorders. GENITOURINARY: Denies any blood in urine. SKIN: Denies puritis. Denies rash. Physical examination: Gen: This is 74-year-old male in no acute distress. VS: reviewed HEENT: Head is atraumatic, normocephalic. Pupils equal, round. Sclerae is anicteric. NECK: Supple. No JVD. LUNGS: Clear to auscultation. No wheezes or rhonchi. No intercostal retractions. HEART: Irregular rate and rhythm. No murmur. ABDOMEN: Soft No tenderness. EXTREMITIES: Mild lower extremity edema. No calf tenderness. NEUROLOGICAL: Patient is awake, alert and oriented x3. Assessment: Paroxysmal atrial fibrillation with RVR, currently controlled rate at rest Known A-fib burden of 9.6% Acute kidney injury Chronic kidney disease Hypertension Moderate to severe aortic stenosis Cardiomyopathy with EF most recently at 35 to 40% Ascending thoracic aorta measuring 4.5 cm PFO Chronic anemia Thrombocytopenia Status post biventricular pacemaker History of parotid gland cancer s/p resection and radiation History of liver cancer status post radiofrequency ablation Plan: Resume patient's home cardiac medications with the following changes Increase Coreg to 25 mg twice daily Discontinue Cardizem drip Add hydralazine 25 mg 3 times daily--patient states he developed severe headache in May when he was on hydralazine, but is willing to try it now. Discontinue amlodipine at discharge Cardiac amyloidosis workup in progress outpatient Obtain free kappa and free lambda Consider Entresto, JORGE, ARB as an outpatient Bladder scan to rule out retention If patient is feeling well this afternoon, he is cleared for discharge and may follow-up in the office with Dr. Post in 1 to 2 weeks. Thank you kindly for this consultation. Nurse practitioner note has been reviewed, I agree with documented findings and plan of care. Patient was seen and examined. 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 Hospitalized last week for CHF & Pneumonia. Irr. heart rate @ times. liver cancer Last Myocardial Infarction Date:: 2022 History of Any Multi-Drug Resistant Organisms: None Reported Past Surgical History: Back Surgery, Heart Catheterization, Hernia Repair, Orthopedic Surgery, Pacemaker Additional Past Surgical History / Comment(s): liver ablation done at [facility] for tx of hepatocellular carcinoma,hemorrhoids ,back surgery, cataract, skin cancer, inguinal hernia, abdominal hernia, left shoulder, right wrist, growth removed vocal cord, PAROTID GLAND REMOVED DUE TO CANCER. Past Anesthesia/Blood Transfusion Reactions: No Reported Reaction Additional Past Anesthesia/Blood Transfusion Reaction / Comment(s): no hx blood transfusion Type of Cardiac Device: Permanent Pacemaker Device Placement Date:: 01/20/24 Past Psychological History: No Psychological Hx Reported Smoking Status: Former smoker Past Alcohol Use History: None Reported Additional Past Alcohol Use History / Comment(s): Smoking on and off for 45 years. Past Drug Use History: None Reported - Past Family History Father Family Medical History: Cancer Medications and Allergies Home Medications Medication Instructions Recorded Confirmed Type Colchicine 0.6 mg PO DAILY 08/02/16 07/25/24 History Tiotropium 2.5 Mcg/Puff [Spiriva 1 puff INHALATION RT-BID 01/14/23 07/25/24 History Respimat 2.5 Mcg] traZODone HCL [Desyrel] 50 mg PO HS 01/14/23 07/25/24 History Cholecalciferol [Vitamin D3 (25 25 mcg PO DAILY 02/11/23 07/25/24 History Mcg = 1000 Iu)] Multivit-Min/FA/Lycopen/Lutein 1 tab PO DAILY 02/11/23 07/25/24 History [Centrum Silver Tablet] Albuterol Inhaler [Ventolin Hfa 2 puff INHALATION RT-Q6H PRN 06/30/23 07/25/24 History Inhaler] Pantoprazole Sodium [Protonix] 20 mg PO BID 06/30/23 07/25/24 History Fluticasone Propion/Salmeterol 1 puff INHALATION RT-BID 01/14/24 07/25/24 History [Wixela 500-50 Inhub] Ferrous Sulfate [Iron (65 MG 325 mg PO DAILY 02/06/24 07/25/24 History Elemental)] Folic Acid 1 mg PO DAILY 02/06/24 07/25/24 History Naloxone HCl [Narcan] 4 mg NASAL DIRECTED PRN 02/06/24 07/25/24 History Ipratropium-Albuterol Nebulize 3 ml INHALATION RT-Q4H PRN each 02/07/24 07/25/24 Rx [Duoneb 0.5 mg-3 mg/3 ml Soln] Diclofenac Sodium Gel [Voltaren 1% 1 applic TOPICAL QID PRN 05/14/24 07/25/24 History Gel] predniSONE 5 mg PO DAILY 07/04/24 07/25/24 History Dapagliflozin Propanediol [Farxiga] 5 mg PO DAILY tab 07/09/24 07/25/24 Rx Furosemide [Lasix] 40 mg PO DAILY tab 07/09/24 07/25/24 Rx HYDROcodone/APAP 10-325MG [[place] 1 tab PO QID PRN #12 tab 07/09/24 07/25/24 Rx 10-325] guaiFENesin [Mucinex] 600 mg PO Q12HR tab 07/09/24 07/25/24 Rx ALPRAZolam [Xanax] 0.25 mg PO Q6H PRN 07/25/24 07/25/24 History Apixaban [Eliquis] 2.5 mg PO Q12H 07/25/24 07/25/24 History Doxycycline Monohydrate 100 mg PO BID 07/25/24 07/25/24 History Sennosides-Docusate Sodium 1 tab PO DAILY 07/25/24 07/25/24 History [Senokot-S] carvediloL [Coreg] 12.5 mg PO BID 07/25/24 07/25/24 History Allergies Allergy/AdvReac Type Severity Reaction Status Date / Time allopurinol AdvReac Gout Verified 07/25/24 20:00 atenolol AdvReac Fatigue,Bra Verified 07/25/24 20:00 dycardia doxazosin AdvReac Delerium,Di Verified 07/25/24 20:00 zziness hydralazine AdvReac Unknown Verified 07/25/24 20:00 lisinopril AdvReac Cough Verified 07/25/24 20:00 metoprolol [From Lopressor] AdvReac Chest Pain Verified 07/25/24 20:00 omalizumab [From Xolair] AdvReac urticaria Verified 07/25/24 20:00 Physical Exam Vitals: Vital Signs Temp Pulse Pulse Resp BP BP BP 07/26/24 08:08 90 07/26/24 08:07 07/26/24 06:50 97.7 F 90 17 156/80 07/26/24 06:27 124/75 07/26/24 01:13 95 18 07/26/24 00:50 97.9 F 95 18 118/69 07/26/24 00:03 96 07/25/24 23:55 96 07/25/24 21:48 99 18 07/25/24 21:10 97.4 F L 99 18 148/73 07/25/24 20:25 85 18 142/98 07/25/24 19:04 98.2 F 90 20 137/99 07/25/24 17:29 85 18 126/94 07/25/24 16:54 83 07/25/24 16:45 97 07/25/24 16:30 103 H 20 132/92 07/25/24 15:45 97.4 F L 120 H 17 141/82 Pulse Ox 07/26/24 08:08 07/26/24 08:07 96 07/26/24 06:50 96 07/26/24 06:27 07/26/24 01:13 07/26/24 00:50 94 L 07/26/24 00:03 07/25/24 23:55 07/25/24 21:48 07/25/24 21:10 94 L 07/25/24 20:25 95 07/25/24 19:04 95 07/25/24 17:29 94 L 07/25/24 16:54 07/25/24 16:45 07/25/24 16:30 96 07/25/24 15:45 94 L Intake and Output 07/25/24 07/26/24 07/26/24 22:59 06:59 14:59 Intake Total 300 Output Total 250 450 Balance 50 -450 Intake: Oral 300 Output: Urine 250 450 Other: Voiding Method Toilet Toilet Weight 83.915 kg 88 kg Results 07/25/24 16:24 07/26/24 04:01 Cardiac Enzymes 07/25/24 07/25/24 07/25/24 Range/Units 16:24 16:24 20:24 AST 27 (17-59) U/L Troponin I 0.018 0.018 (0.000-0.034) ng/mL 07/26/24 Range/Units 00:19 AST (17-59) U/L Troponin I 0.026 (0.000-0.034) ng/mL Coagulation 07/25/24 Range/Units 16:24 PT 12.1 (10.0-12.5) sec APTT 30.2 H (22.0-30.0) sec CBC 07/25/24 Range/Units 16:24 WBC 2.28 L (4.50-10.00) 10*3/uL RBC 4.10 L (4.40-5.60) 10*6/uL Hgb 11.2 L (13.0-17.0) g/dL Hct 34.9 L (39.6-50.0) % Plt Count 79 L (140-440) 10*3/uL Comprehensive Metabolic Panel 07/25/24 Range/Units 16:24 Sodium 139 (137-145) mmol/L Potassium 3.9 (3.5-5.1) mmol/L Chloride 101 (98-107) mmol/L Carbon Dioxide 25 (22-30) mmol/L BUN 60 H (9-20) mg/dL Creatinine 2.72 H (0.66-1.25) mg/dL Glucose 101 H (74-99) mg/dL Calcium 9.3 (8.4-10.2) mg/dL AST 27 (17-59) U/L ALT 17 (4-49) U/L Alkaline Phosphatase 94 (38-126) U/L Total Protein 7.0 (6.3-8.2) g/dL Albumin 3.9 (3.5-5.0) g/dL Current Medications Generic Name Dose Route Start Last Admin Trade Name Freq PRN Reason Stop Dose Admin Hydrocodone Bitart/Acetaminophen 1 each 07/25/24 22:37 Hydrocodone/Apap 10-325mg 1 Each Tab PO QID PRN Pain Albuterol Sulfate 2.5 mg 07/26/24 08:00 07/26/24 08:07 Albuterol Nebulized 2.5 Mg/3 Ml INHALATION 2.5 mg RT-QID RAFY Administration Albuterol Sulfate 2.5 mg 07/26/24 07:23 Albuterol Nebulized 2.5 Mg/3 Ml INHALATION RT-Q2H PRN Shortness Of Breath Or Wheezing Alprazolam 0.25 mg 07/25/24 22:37 Alprazolam 0.25 Mg Tab PO Q6H PRN Anxiety Apixaban 2.5 mg 07/25/24 22:45 07/25/24 23:32 Apixaban 2.5 Mg Tablet PO 2.5 mg Q12H RAFY Administration Protocol Budesonide/Formoterol Fumarate 2 puff 07/25/24 23:11 07/26/24 08:07 Symbicort 160-4.5 Mcg Inhaler INHALATION 2 puff RT-BID RAFY Administration Carvedilol 12.5 mg 07/25/24 07:30 07/26/24 06:05 Carvedilol 12.5 Mg Tab PO 12.5 mg BID-W/MEALS RAFY Administration Cholecalciferol 25 mcg 07/26/24 09:00 Cholecalciferol 25 Mcg (1000 Iu) Tablet PO DAILY [facility] Colchicine 0.3 mg 07/26/24 09:00 Colchicine 0.6 Mg Each PO DAILY [facility] Dapagliflozin 5 mg 07/26/24 09:00 Dapagliflozin Propanediol 5 Mg Tablet PO DAILY [facility] Doxycycline Hyclate 100 mg 07/25/24 22:45 07/25/24 23:32 Doxycycline 100 Mg Tablet PO 100 mg BID RAFY Administration Ferrous Sulfate 325 mg 07/26/24 09:00 Ferrous Sulfate 325 Mg Tab PO DAILY [facility] Folic Acid 1 mg 07/26/24 09:00 Folic Acid 1 Mg Tab PO DAILY [facility] Furosemide 40 mg 07/26/24 09:00 Furosemide 40 Mg Tab PO DAILY [facility] Guaifenesin 600 mg 07/25/24 22:45 07/25/24 23:32 Guaifenesin 600 Mg Tablet.Er PO 600 mg Q12HR RAFY Administration Diltiazem HCl 125 mg/ Sodium 125 mls @ 5 mls/hr 07/25/24 16:00 07/25/24 16:27 Chloride IV 5 mg/hr .Q24H RAFY 5 mls/hr Administration 5 MG/HR Sodium Chloride 1,000 mls @ 20 mls/hr 07/25/24 18:45 07/25/24 19:01 Saline 0.9% IV 20 mls/hr .Q24H RAFY Administration Morphine Sulfate 4 mg 07/25/24 18:31 Morphine Sulfate 4 Mg/Ml Syringe IV Q4HR PRN Severe Pain (Scale 7 to 10) Multivitamins 1 each 07/26/24 09:00 Multivitamins, Thera 1 Each Tab PO DAILY [facility] Naloxone HCl 0.2 mg 07/25/24 18:31 Naloxone 0.4 Mg/Ml 1 Ml Vial IV Q2M PRN Opioid Reversal Pantoprazole Sodium 40 mg 07/26/24 07:30 07/26/24 06:05 Pantoprazole 40 Mg Tablet PO 40 mg AC-BID [facility] Administration Prednisone 30 mg 07/26/24 09:00 Prednisone 10 Mg Tab PO DAILY [facility] Senna/Docusate Sodium 1 each 07/26/24 09:00 Sennosides-Docusate Sodium 1 Each Tab PO DAILY [facility] Tiotropium [place] 2 puff 07/25/24 23:10 07/26/24 08:07 Tiotropium 2.5 Mcg Inhaler INHALATION 2 puff RT-DAILY [facility] Administration Trazodone HCl 50 mg 07/25/24 22:45 07/25/24 23:32 Trazodone Hcl 50 Mg Tab PO 50 mg HS RAFY Administration Intake and Output 07/25/24 07/26/24 07/26/24 22:59 06:59 14:59 Intake Total 300 Output Total 250 450 Balance 50 -450 Intake: Oral 300 Output: Urine 250 450 Other: Voiding Method Toilet Toilet Weight 83.915 kg 88 kg 07/25/24 16:24 07/25/24 16:24
[2024-07-26 11:13] LABS: Basophils # (A) 0.02 X 10*3/uL (0.00-0.10); Basophils % (A) 1.1 %; Eosinophils # (A) 0.15 X 10*3/uL (0.04-0.35); Eosinophils % (A) 8.5 %; HCT 33.3 % (39.6-50.0); HGB 10.3 g/dL (13.0-17.0); Immature Platelet Fraction 2.9 % (1.1-6.1); Lymphocytes # (A) 0.34 X 10*3/uL (0.90-5.00); Lymphocytes % (A) 19.3 %; MCH 27.1 pg (27.0-32.0); MCHC 30.9 g/dL (32.0-37.0); MCV 87.6 FL (80.0-97.0); Mean Platelet Volume 11.2 FL (9.5-12.2); Monocytes # (A) 0.14 X 10*3/uL (0.20-1.00); NRBC Per 100 WBC 0 X 10*3/uL (0.00-0.01); Neutrophils # (A) 1.09 X 10*3/uL (1.80-7.70); Platelet Count 58 X 10*3/uL (140-440); RDW 17.2 % (11.5-14.5); WBC 1.76 X 10*3/uL (4.50-10.00)
--- NOTE | 2024-07-26 12:11 | P.NPCON ---
History of Present Illness - Reason for Consult acute renal failure, chronic renal failure - History of Present Illness Reason for consultation: Acute kidney injury on chronic kidney disease History of present illness: Patient is a 74-year-old male seen in renal consultation for acute kidney injury on chronic kidney disease. Patient has chronic kidney disease stage IIIb with baseline creatinine 1.6-1.8 from May 2024. Creatinine this admission was 2.72 and is 2.3 today. Patient states he has a history of A-fib and recently had his pacemaker interrogated. Patient states he has been feeling quite weak and felt that he was in A-fib. He is currently on Cardizem drip. Patient does admit to shortness of breath going on for about 2 weeks now. He denies use of nonsteroidals. He denies history of diabetes. He did receive a liter bolus of normal saline in the ER yesterday afternoon. Currently not on any maintenance fluids. He is on oral Lasix 40 mg once daily. Chest x-ray shows stable mild vascular congestion. Denies gross hematuria or dysuria. Vital signs are stable. General: No acute distress. HEENT: Head exam is unremarkable. LUNGS: No audible rhonchi or wheezes. HEART: Rate and Rhythm are regular. ABDOMEN: Nontender. EXTREMITITES: 1+ edema. 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 Hospitalized last week for CHF & Pneumonia. Irr. heart rate @ times. liver cancer Last Myocardial Infarction Date:: 2022 History of Any Multi-Drug Resistant Organisms: None Reported Past Surgical History: Back Surgery, Heart Catheterization, Hernia Repair, Orthopedic Surgery, Pacemaker Additional Past Surgical History / Comment(s): liver ablation done at [place] for tx of hepatocellular carcinoma,hemorrhoids ,back surgery, cataract, skin cancer, inguinal hernia, abdominal hernia, left shoulder, right wrist, growth removed vocal cord, PAROTID GLAND REMOVED DUE TO CANCER. Past Anesthesia/Blood Transfusion Reactions: No Reported Reaction Additional Past Anesthesia/Blood Transfusion Reaction / Comment(s): no hx blood transfusion Type of Cardiac Device: Permanent Pacemaker Device Placement Date:: 01/20/24 Past Psychological History: No Psychological Hx Reported Smoking Status: Former smoker Past Alcohol Use History: None Reported Additional Past Alcohol Use History / Comment(s): Smoking on and off for 45 years. Past Drug Use History: None Reported - Past Family History Father Family Medical History: Cancer Medications and Allergies Home Medications Medication Instructions Recorded Confirmed Type Colchicine 0.6 mg PO DAILY 08/02/16 07/25/24 History Tiotropium 2.5 Mcg/Puff [Spiriva 1 puff INHALATION RT-BID 01/14/23 07/25/24 History Respimat 2.5 Mcg] traZODone HCL [Desyrel] 50 mg PO HS 01/14/23 07/25/24 History Cholecalciferol [Vitamin D3 (25 25 mcg PO DAILY 02/11/23 07/25/24 History Mcg = 1000 Iu)] Multivit-Min/FA/Lycopen/Lutein 1 tab PO DAILY 02/11/23 07/25/24 History [Centrum Silver Tablet] Albuterol Inhaler [Ventolin Hfa 2 puff INHALATION RT-Q6H PRN 06/30/23 07/25/24 History Inhaler] Pantoprazole Sodium [Protonix] 20 mg PO BID 06/30/23 07/25/24 History Fluticasone Propion/Salmeterol 1 puff INHALATION RT-BID 01/14/24 07/25/24 History [Wixela 500-50 Inhub] Ferrous Sulfate [Iron (65 MG 325 mg PO DAILY 02/06/24 07/25/24 History Elemental)] Folic Acid 1 mg PO DAILY 02/06/24 07/25/24 History Naloxone HCl [Narcan] 4 mg NASAL DIRECTED PRN 02/06/24 07/25/24 History Ipratropium-Albuterol Nebulize 3 ml INHALATION RT-Q4H PRN each 02/07/24 07/25/24 Rx [Duoneb 0.5 mg-3 mg/3 ml Soln] Diclofenac Sodium Gel [Voltaren 1% 1 applic TOPICAL QID PRN 05/14/24 07/25/24 History Gel] predniSONE 5 mg PO DAILY 07/04/24 07/25/24 History Dapagliflozin Propanediol [Farxiga] 5 mg PO DAILY tab 07/09/24 07/25/24 Rx Furosemide [Lasix] 40 mg PO DAILY tab 07/09/24 07/25/24 Rx HYDROcodone/APAP 10-325MG [[place] 1 tab PO QID PRN #12 tab 07/09/24 07/25/24 Rx 10-325] guaiFENesin [Mucinex] 600 mg PO Q12HR tab 07/09/24 07/25/24 Rx ALPRAZolam [Xanax] 0.25 mg PO Q6H PRN 07/25/24 07/25/24 History Apixaban [Eliquis] 2.5 mg PO Q12H 07/25/24 07/25/24 History Doxycycline Monohydrate 100 mg PO BID 07/25/24 07/25/24 History Sennosides-Docusate Sodium 1 tab PO DAILY 07/25/24 07/25/24 History [Senokot-S] carvediloL [Coreg] 12.5 mg PO BID 07/25/24 07/25/24 History Allergies Allergy/AdvReac Type Severity Reaction Status Date / Time allopurinol AdvReac Gout Verified 07/25/24 20:00 atenolol AdvReac Fatigue,Bra Verified 07/25/24 20:00 dycardia doxazosin AdvReac Delerium,Di Verified 07/25/24 20:00 zziness hydralazine AdvReac Unknown Verified 07/25/24 20:00 lisinopril AdvReac Cough Verified 07/25/24 20:00 metoprolol [From Lopressor] AdvReac Chest Pain Verified 07/25/24 20:00 omalizumab [From Xolair] AdvReac urticaria Verified 07/25/24 20:00 Physical Exam Vitals: Vital Signs Temp Pulse Pulse Resp BP BP BP 07/26/24 11:47 78 07/26/24 11:37 75 07/26/24 08:19 92 07/26/24 08:08 90 07/26/24 08:07 07/26/24 06:50 97.7 F 90 17 156/80 07/26/24 06:27 124/75 07/26/24 01:13 95 18 07/26/24 00:50 97.9 F 95 18 118/69 07/26/24 00:03 96 07/25/24 23:55 96 07/25/24 21:48 99 18 07/25/24 21:10 97.4 F L 99 18 148/73 07/25/24 20:25 85 18 142/98 07/25/24 19:04 98.2 F 90 20 137/99 07/25/24 17:29 85 18 126/94 07/25/24 16:54 83 07/25/24 16:45 97 07/25/24 16:30 103 H 20 132/92 07/25/24 15:45 97.4 F L 120 H 17 141/82 Pulse Ox 07/26/24 11:47 07/26/24 11:37 07/26/24 08:19 07/26/24 08:08 07/26/24 08:07 96 07/26/24 06:50 96 07/26/24 06:27 07/26/24 01:13 07/26/24 00:50 94 L 07/26/24 00:03 07/25/24 23:55 07/25/24 21:48 07/25/24 21:10 94 L 07/25/24 20:25 95 07/25/24 19:04 95 07/25/24 17:29 94 L 07/25/24 16:54 07/25/24 16:45 07/25/24 16:30 96 07/25/24 15:45 94 L Intake and Output 07/25/24 07/26/24 07/26/24 22:59 06:59 14:59 Intake Total 300 118 Output Total 250 450 Balance 50 -450 118 Intake: Oral 300 118 Output: Urine 250 450 Other: Voiding Method Toilet Toilet Weight 83.915 kg 88 kg Results - Lab Results Most recent lab results Calcium 8.5 mg/dL (8.7-10.3) L 07/26/24 04:01 Phosphorus 3.6 mg/dL (2.4-5.1) 07/26/24 04:01 Magnesium 1.7 mg/dL (1.5-2.4) 07/26/24 04:01 07/26/24 04:01 07/26/24 04:01 Assessment and Plan Plan: Assessment: 1. Acute kidney injury secondary to hemodynamic ATN. Creatinine 2.7 on admission and is 2.3 today. No hydronephrosis noted on abdominal ultrasound done July 07, 2024. 2. Chronic kidney disease stage IIIb with baseline creatinine 1.6-1.8 secondary to nephrosclerosis. 3. A-fib with RVR maintained on Cardizem drip. 4. Volume overload. 5. Acute on chronic systolic CHF ejection fraction of 35 to 40% with moderate aortic stenosis. 6. Hypertension with chronic kidney disease. Stable. Plan: Maintain Lasix. Maintain SGLT2 inhibitor. Encouraged oral intake. Avoid nephrotoxins. Continue to monitor renal function and urine output. Check UA. Thank you for the consultation. I will continue to follow the patient with you during his hospital stay.
--- NOTE | 2024-07-26 13:04 | P.HPIM ---
History of Present Illness H&P Date: 07/26/24 History of present illness; patient is a 74-year-old gentleman with past medical history significant for COPD, valvular heart disease, chronic systolic heart failure who presented the ER because of chest pain and shortness of breath for 2 days. Patient stated he was all right a week back when he started noticing shortness of breath. Shortness of breath was present on exertion. Patient was complaining of palpitations. Patient was seen by cardiology in outpatient setting and pacemaker was interrogated, patient was found to be in A-fib. Patient denied any chest pain. There is no complaint of orthopnea or PND. There was no complaint of fever or chills. Patient continued to feel short of breath and felt his heart racing. Because of the symptoms, patient came to the ER Initial lab work done in the ER showed WBC 2.28, hemoglobin 11.2, platelet count 79, sodium 139, potassium 3.9, BUN 60, creatinine 2.72 phosphorous 4.6 troponin 0.018, proBNP 14,200 EKG done in the ER showed heart rate of 103, frequent PVCs, irregular rhythm no ST segment elevation or depression seen, no T-wave inversions seen. Chest x-ray done in the ER showed cardiomegaly and pulm vascular congestion Patient admitted to internal medicine service REVIEW OF SYSTEMS: CONSTITUTIONAL: No fever, no malaise, no fatigue. HEENT: No recent visual problems or hearing problems. Denied any sore throat. CARDIOVASCULAR: As mentioned PULMONARY: As mentioned above GASTROINTESTINAL: No diarrhea, no nausea, no vomiting, no abdominal pain. NEUROLOGICAL: No headaches, no weakness, no numbness. HEMATOLOGICAL: Denies any bleeding or petechiae. GENITOURINARY: Denies any burning micturition, frequency, or urgency. MUSCULOSKELETAL/RHEUMATOLOGICAL: Denies any joint pain, swelling, or any muscle pain. ENDOCRINE: Denies any polyuria or polydipsia. The rest of the 14-point review of systems is negative. PHYSICAL EXAMINATION: GENERAL: The patient is alert and oriented x3, not in any acute distress. Well developed, well nourished. HEENT: Pupils are round and equally reacting to light. EOMI. No scleral icterus. No conjunctival pallor. Normocephalic, atraumatic. No pharyngeal erythema. No thyromegaly. CARDIOVASCULAR: S1 and S2 present. No murmurs, rubs, or gallops. PULMONARY: Diminished breath sounds at the bases bilaterally, no wheezing or crackles. ABDOMEN: Soft, nontender, nondistended, normoactive bowel sounds. No palpable organomegaly. MUSCULOSKELETAL: No joint swelling or deformity. EXTREMITIES: No cyanosis, clubbing, 2+ edema lower extremities bilateraly NEUROLOGICAL: Gross neurological examination did not reveal any focal deficits. SKIN: No rashes. 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 Continue same treatment. Continue with symptomatic treatment. Resume home medication. Monitor labs and vitals. DVT and GI prophylaxis. Further recommendations as per clinical course of the p atient Dictation was produced using [employer] dictation software. please excuse any grammatical, word or spelling errors. 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 Hospitalized last week for CHF & Pneumonia. Irr. heart rate @ times. liver cancer Last Myocardial Infarction Date:: 2022 History of Any Multi-Drug Resistant Organisms: None Reported Past Surgical History: Back Surgery, Heart Catheterization, Hernia Repair, Orth opedic Surgery, Pacemaker Additional Past Surgical History / Comment(s): liver ablation done at [place] for tx of hepatocellular carcinoma,hemorrhoids ,back surgery, cataract, skin cancer, inguinal hernia, abdominal hernia, left shoulder, right wrist, growth removed vocal cord, PAROTID GLAND REMOVED DUE TO CANCER. Past Anesthesia/Blood Transfusion Reactions: No Reported Reaction Additional Past Anesthesia/Blood Transfusion Reaction / Comment(s): no hx blood transfusion Type of Cardiac Device: Permanent Pacemaker Device Placement Date:: 01/20/24 Past Psychological History: No Psychological Hx Reported Smoking Status: Former smoker Past Alcohol Use History: None Reported Additional Past Alcohol Use History / Comment(s): Smoking on and off for 45 years. Past Drug Use History: None Reported - Past Family History Father Family Medical History: Cancer Medications and Allergies Home Medications Medication Instructions Recorded Confirmed Type Colchicine 0.6 mg PO DAILY 08/02/16 07/25/24 History Tiotropium 2.5 Mcg/Puff [Spiriva 1 puff INHALATION RT-BID 01/14/23 07/25/24 History Respimat 2.5 Mcg] traZODone HCL [Desyrel] 50 mg PO HS 01/14/23 07/25/24 History Cholecalciferol [Vitamin D3 (25 25 mcg PO DAILY 02/11/23 07/25/24 History Mcg = 1000 Iu)] Multivit-Min/FA/Lycopen/Lutein 1 tab PO DAILY 02/11/23 07/25/24 History [Centrum Silver Tablet] Albuterol Inhaler [Ventolin Hfa 2 puff INHALATION RT-Q6H PRN 06/30/23 07/25/24 History Inhaler] Pantoprazole Sodium [Protonix] 20 mg PO BID 06/30/23 07/25/24 History Fluticasone Propion/Salmeterol 1 puff INHALATION RT-BID 01/14/24 07/25/24 History [Wixela 500-50 Inhub] Ferrous Sulfate [Iron (65 MG 325 mg PO DAILY 02/06/24 07/25/24 History Elemental)] Folic Acid 1 mg PO DAILY 02/06/24 07/25/24 History Naloxone HCl [Narcan] 4 mg NASAL DIRECTED PRN 02/06/24 07/25/24 History Ipratropium-Albuterol Nebulize 3 ml INHALATION RT-Q4H PRN each 02/07/24 07/25/24 Rx [Duoneb 0.5 mg-3 mg/3 ml Soln] Diclofenac Sodium Gel [Voltaren 1% 1 applic TOPICAL QID PRN 05/14/24 07/25/24 History Gel] predniSONE 5 mg PO DAILY 07/04/24 07/25/24 History Dapagliflozin Propanediol [Farxiga] 5 mg PO DAILY tab 07/09/24 07/25/24 Rx Furosemide [Lasix] 40 mg PO DAILY tab 07/09/24 07/25/24 Rx HYDROcodone/APAP 10-325MG [[place] 1 tab PO QID PRN #12 tab 07/09/24 07/25/24 Rx 10-325] guaiFENesin [Mucinex] 600 mg PO Q12HR tab 07/09/24 07/25/24 Rx ALPRAZolam [Xanax] 0.25 mg PO Q6H PRN 07/25/24 07/25/24 History Apixaban [Eliquis] 2.5 mg PO Q12H 07/25/24 07/25/24 History Doxycycline Monohydrate 100 mg PO BID 07/25/24 07/25/24 History Sennosides-Docusate Sodium 1 tab PO DAILY 07/25/24 07/25/24 History [Senokot-S] carvediloL [Coreg] 12.5 mg PO BID 07/25/24 07/25/24 History Allergies Allergy/AdvReac Type Severity Reaction Status Date / Time allopurinol AdvReac Gout Verified 07/25/24 20:00 atenolol AdvReac Fatigue,Bra Verified 07/25/24 20:00 dycardia doxazosin AdvReac Delerium,Di Verified 07/25/24 20:00 zziness hydralazine AdvReac Unknown Verified 07/25/24 20:00 lisinopril AdvReac Cough Verified 07/25/24 20:00 metoprolol [From Lopressor] AdvReac Chest Pain Verified 07/25/24 20:00 omalizumab [From Xolair] AdvReac urticaria Verified 07/25/24 20:00 Physical Exam Vitals: Vital Signs Temp Pulse Pulse Resp BP BP BP 07/26/24 08:19 92 07/26/24 08:08 90 07/26/24 08:07 07/26/24 06:50 97.7 F 90 17 156/80 07/26/24 06:27 124/75 07/26/24 01:13 95 18 07/26/24 00:50 97.9 F 95 18 118/69 07/26/24 00:03 96 07/25/24 23:55 96 07/25/24 21:48 99 18 07/25/24 21:10 97.4 F L 99 18 148/73 07/25/24 20:25 85 18 142/98 07/25/24 19:04 98.2 F 90 20 137/99 07/25/24 17:29 85 18 126/94 07/25/24 16:54 83 07/25/24 16:45 97 07/25/24 16:30 103 H 20 132/92 07/25/24 15:45 97.4 F L 120 H 17 141/82 Pulse Ox 07/26/24 08:19 07/26/24 08:08 07/26/24 08:07 96 07/26/24 06:50 96 07/26/24 06:27 07/26/24 01:13 07/26/24 00:50 94 L 07/26/24 00:03 07/25/24 23:55 07/25/24 21:48 07/25/24 21:10 94 L 07/25/24 20:25 95 07/25/24 19:04 95 07/25/24 17:29 94 L 07/25/24 16:54 07/25/24 16:45 07/25/24 16:30 96 07/25/24 15:45 94 L Intake and Output 07/25/24 07/26/24 07/26/24 22:59 06:59 14:59 Intake Total 300 Output Total 250 450 Balance 50 -450 Intake: Oral 300 Output: Urine 250 450 Other: Voiding Method Toilet Toilet Weight 83.915 kg 88 kg Results CBC & Chem 7: 07/26/24 04:01 07/26/24 04:01 Labs: Abnormal Lab Results - Last 24 Hours (Table) 07/25/24 07/25/24 07/25/24 Range/Units 16:24 16:24 16:24 WBC 2.28 L (4.50-10.00) 10*3/uL RBC 4.10 L (4.40-5.60) 10*6/uL Hgb 11.2 L (13.0-17.0) g/dL Hct 34.9 L (39.6-50.0) % Plt Count 79 L (140-440) 10*3/uL Neutrophils # 1.65 L (1.80-7.70) 10*3/uL Lymphocytes # 0.31 L (0.90-5.00) 10*3/uL Monocytes # 0.14 L (0.20-1.00) 10*3/uL APTT 30.2 H (22.0-30.0) sec BUN 60 H (9-20) mg/dL Creatinine 2.72 H (0.66-1.25) mg/dL Glucose 101 H (74-99) mg/dL Phosphorus 4.6 H (2.5-4.5) mg/dL Thrombosis Risk Factor Assmnt - Choose All That Apply Any of the Below Risk Factors Present?: Yes Each Factor Represents 1 point: Abnormal pulmonary function (COPD), Obesity (BMI >25) Other Risk Factors: Yes Each Risk Factor Represents 2 Points: Age 61-74 years Other congenital or acquired thrombophilia - If yes, enter type in comment: No Thrombosis Risk Factor Assessment Total Risk Factor Score: 4 Thrombosis Risk Factor Assessment Level: Moderate Risk
[2024-07-26] MEDS: POTASSIUM CHLORIDE ER 20 MEQ TAB.ER PO STA (13:05)
[2024-07-26 14:31] LABS: Appearance,Urine Clear (Clear); Bacteria,Urine Rare /hpf; Bilirubin,Urine Negative (Negative); Blood,Urine Trace (Negative); Color,Urine Light Yellow; Glucose,Urine (UA) Trace (Negative); Hyaline Casts,Urine 1 /lpf (0-2); Ketones,Urine Negative (Negative); Leukocyte Esterase,Urine Negative (Negative); Mucus,Urine Rare /hpf; Nitrite,Urine Negative (Negative); PH, Urine 5.5 (5.0-8.0); Protein,Urine Negative (Negative); RBC,Urine 4 /hpf (0-5); Specific Gravity,Urine 1.012 (1.001-1.035); Urobilinogen,Urine <2.0 mg/dL (<2.0); WBC,Urine <1 /hpf (0-5)
[2024-07-26] MEDS: ALBUTEROL NEBULIZED 2.5 MG/3 ML INHALATION PRN (14:55)
[2024-07-26] MEDS: ALPRAZolam 0.25 MG TAB PO PRN (15:42)
[2024-07-26] MEDS: carvediloL 12.5 MG TAB PO SCH (17:46)
[2024-07-26 19:52] VITALS: RESP 18
[2024-07-27 06:42] VITALS: BP 136/85; TEMP 97.6
--- NOTE | 2024-07-27 11:41 | P.PN ---
Subjective Patient is seen in follow-up for acute kidney injury on chronic kidney disease. Admits to good urine output. Denies chest pain or shortness of breath. Off Cardizem drip. Vital signs are stable. General: No acute distress. HEENT: Head exam is unremarkable. On nasal cannula. LUNGS: No audible rhonchi or wheezes. HEART: Rate and Rhythm are regular. ABDOMEN: Nontender. EXTREMITITES: Trace edema. Objective - Vital Signs Vital signs: Vital Signs Temp 97.6 F 07/27/24 06:11 Pulse 100 07/27/24 06:24 Resp 18 07/27/24 06:24 BP 136/85 07/27/24 06:11 Pulse Ox 100 07/27/24 08:20 FiO2 Intake & Output 07/26/24 07/27/24 07/27/24 18:59 06:59 18:59 Intake Total 336 591 221 Output Total 450 650 Balance -114 -59 221 Weight 87 kg Intake: Oral 336 591 221 Output: Urine 450 650 Other: Voiding Method Toilet - Labs CBC & Chem 7: 07/26/24 04:01 07/26/24 04:01 Labs: Abnormal Lab Results - Last 24 Hours (Table) 07/26/24 Range/Units 14:00 Urine Glucose (UA) Trace H (Negative) Urine Blood Trace H (Negative) Urine Bacteria Rare H (None) /hpf Urine Mucus Rare H (None) /hpf Assessment and Plan Plan: Assessment: 1. Acute kidney injury secondary to hemodynamic ATN. Creatinine 2.7 on admission and improved to 2.3 yesterday. No hydronephrosis noted on abdominal ultrasound done July 07, 2024. No proteinuria on UA. 2. Chronic kidney disease stage IIIb with baseline creatinine 1.6-1.8 secondary to nephrosclerosis. 3. A-fib with RVR status post Cardizem drip. 4. Volume overload. On Lasix. 5. Acute on chronic systolic CHF ejection fraction of 35 to 40% with moderate aortic stenosis. 6. Hypertension with chronic kidney disease. Stable. Plan: Maintain Lasix. Maintain SGLT2 inhibitor. Encouraged oral intake. Avoid nephrotoxins. Continue to monitor renal function and urine output.
--- NOTE | 2024-07-27 13:07 | P.PN ---
Subjective HISTORY OF PRESENT ILLNESS: This is a 74-year-old male patient of Dr. Post with past medical history of hypertension, paroxysmal atrial fibrillation, moderate to severe aortic stenosis, chronic kidney disease, prior parotid gland cancer s/p resection and radiation, prior liver cancer status post radiofrequency ablation, thrombocytopenia, severe aortic regurgitation, cardiomyopathy with EF 45 to 50% and recently decreased to 35 to 40%, ascending thoracic aorta measuring 4.[address], PFO, chronic anemia, status post biventricular pacemaker. We have been asked to evaluate patient for A-fib with RVR and CHF. Patient states that he could feel his heart racing at home up to 131. Patient was recently hospitalized on 07/03 at which time he presented with shortness of breath. Echocardiogram revealed EF of 35 to 40% with moderate aortic stenosis, moderate aortic regurgitation. There was consideration for heart catheterization but it was deferred due to pancytopenia and prior heart cath from 2022 was not significantly abnormal. Patient was started on Eliquis 2.5 mg twice daily and he was started on Farxiga. He had an office visit on 07/21 at which time a device check was done that AP 73.3%, EQUAL OPPORTUNITY ASSISTANT 0.3%, atrial fibrillation 9.6% and patient was in A-fib with RVR. It was recommended that patient be transition from metoprolol to Coreg and consider digoxin. A cardiac amyloidosis workup was started and patient states he is waiting for a call from [facility] regarding MRI. Patient also states that he had lab work done at Dr. Del Valle's office but we will plan to repeat lambda and kappa. Patient was evaluated by Dr. Francis in the past and it was deemed not a good candidate for atrial fibrillation ablation and recommended a biventricular pacemaker which was done. Discussed with the patient he may need to be reconsidered for ablation. At this time patient states that he feels a little bit better but he still having brief episodes of palpitations. He states when he gets up to the bathroom and does start racing. In the recent past, he has had good days but it feels like they are getting less frequent. Light exercise seems to trigger the atrial fibrillation. Patient has a little lower extremity edema and he denies any weight gain. He states he has not been urinating very much. Patient is currently rate controlled. Blood pressure 156/80, heart rate 90, pulse ox 96% on 2 L nasal cannula. Patient has been started on Cardizem bolus 20 mg followed by Cardizem drip currently at 5 mg/h. -EKG: -Chest x-ray: -Laboratory studies: WBC 2.2, hemoglobin 9.2, platelet count 79. BUN 60 creatinine 2.72 -Home cardiac medications: Amlodipine 5 mg daily, Eliquis 2.5 mg every 12 hours, Coreg 12.5 mg twice daily, Lasix 40 mg daily, also on Farxiga 5 mg daily. 07/27/2024 Patient examined this morning at the bedside. Patient states his breathing is so-so today. He reports a dry cough. Telemetry reveals atrial fibrillation with a heart rate in the 80s90s. His Cardizem has been discontinued. PHYSICAL EXAM: VITAL SIGNS: Reviewed. GENERAL: Well-developed in no acute distress. NECK: Supple. No JVD or thyromegaly LUNGS: Respirations even and unlabored. Lungs essentially clear to auscultation bilaterally. HEART: Regular rate and rhythm. S1 and S2 heard. EXTREMITIES: Normal range of motion. No clubbing or cyanosis. Peripheral pulses intact. No lower extremity edema ASSESSMENT: Paroxysmal atrial fibrillation with RVR, currently controlled rate at rest Known A-fib burden of 9.6% Acute kidney injury Chronic kidney disease Hypertension Moderate to severe aortic stenosis Cardiomyopathy with EF most recently at 35 to 40% Ascending thoracic aorta measuring 4.5 cm PFO Chronic anemia Thrombocytopenia Status post biventricular pacemaker History of parotid gland cancer s/p resection and radiation History of liver cancer status post radiofrequency ablation PLAN: Continue current cardiac medications including Eliquis, carvedilol, Farxiga, Lasix, hydralazine Increase activity as tolerated Continue telemetry monitoring Patient is stable for discharge home this afternoon if patient's heart rates remain stable Patient to follow-up in the office with Dr. Post Nurse practitioner note has been reviewed by physician. Signing provider agrees with the documented findings, assessment, and plan of care documented by TRAFFIC ASSISTANT as a scribe. Objective - Vital Signs Vital signs: Vital Signs Temp 97.6 F 07/27/24 06:11 Pulse 78 07/27/24 11:46 Resp 18 07/27/24 06:24 BP 136/85 07/27/24 06:11 Pulse Ox 100 07/27/24 08:20 FiO2 Intake & Output 07/26/24 07/27/24 07/27/24 18:59 06:59 18:59 Intake Total 336 591 221 Output Total 450 650 Balance -114 -59 221 Weight 87 kg Intake: Oral 336 591 221 Output: Urine 450 650 Other: Voiding Method Toilet - Labs CBC & Chem 7: 07/26/24 04:01 07/26/24 04:01 Labs: Abnormal Lab Results - Last 24 Hours (Table) 07/26/24 Range/Units 14:00 Urine Glucose (UA) Trace H (Negative) Urine Blood Trace H (Negative) Urine Bacteria Rare H (None) /hpf Urine Mucus Rare H (None) /hpf
--- NOTE | 2024-07-27 13:57 | P.DS ---
Providers Date of admission: 07/27/24 07:36 Attending physician: Hillary Franks Consults: 07/25/24 18:31 Consult Physician Routine Consulting Provider: Arlet Foster Consult Reason/Comments: [email or web address] Do you want consulting provider notified?: Yes 07/26/24 04:31 Consult Physician Routine Consulting Provider: Marlo Diggs Consult Reason/Comments: COPD Do you want consulting provider notified?: Already Contacted 07/26/24 09:32 Consult Physician Routine Consulting Provider: Juan Lo Consult Reason/Comments: Acute on chronic kidney disease Do you want consulting provider notified?: Yes Primary care physician: [facility] Course: . History of present illness; patient is a 74-year-old gentleman with past medical history significant for COPD, valvular heart disease, chronic systolic heart failure who presented the ER because of chest pain and shortness of breath for 2 days. Patient stated he was all right a week back when he started noticing shor tness of breath. Shortness of breath was present on exertion. Patient was complaining of palpitations. Patient was seen by cardiology in outpatient setting and pacemaker was interrogated, patient was found to be in A-fib. Patient denied any chest pain. There is no complaint of orthopnea or PND. There was no complaint of fever or chills. Patient continued to feel short of breath and felt his heart racing. Because of the symptoms, patient came to the ER Initial lab work done in the ER showed WBC 2.28, hemoglobin 11.2, platelet count 79, sodium 139, potassium 3.9, BUN 60, creatinine 2.72 phosphorous 4.6 troponin 0.018, proBNP 14,200 EKG done in the ER showed heart rate of 103, frequent PVCs, irregular rhythm no ST segment elevation or depression seen, no T-wave inversions seen. Chest x-ray done in the ER showed cardiomegaly and pulm vascular congestion Patient admitted to internal medicine service 07/27/2024 Patient's heart rate is fairly well-controlled still in atrial fibrillation was cleared from cardiology perspective to be discharged patient's amlodipine was discontinued was started on hydralazine 25 3 times daily and increase the dose of Coreg to 25 mg twice a day from 12.5 mg twice a day REVIEW OF SYSTEMS: CONSTITUTIONAL: No fever, no malaise, no fatigue. HEENT: No recent visual problems or hearing problems. Denied any sore throat. CARDIOVASCULAR: As mentioned PULMONARY: As mentioned above GASTROINTESTINAL: No diarrhea, no nausea, no vomiting, no abdominal pain. NEUROLOGICAL: No headaches, no weakness, no numbness. HEMATOLOGICAL: Denies any bleeding or petechiae. GENITOURINARY: Denies any burning micturition, frequency, or urgency. MUSCULOSKELETAL/RHEUMATOLOGICAL: Denies any joint pain, swelling, or any muscle pain. ENDOCRINE: Denies any polyuria or polydipsia. The rest of the 14-point review of systems is negative. PHYSICAL EXAMINATION: GENERAL: The patient is alert and oriented x3, not in any acute distress. Well d eveloped, well nourished. HEENT: Pupils are round and equally reacting to light. EOMI. No scleral icterus. No conjunctival pallor. Normocephalic, atraumatic. No pharyngeal erythema. No thyromegaly. CARDIOVASCULAR: S1 and S2 present. No murmurs, rubs, or gallops. PULMONARY: Diminished breath sounds at the bases bilaterally, no wheezing or crackles. ABDOMEN: Soft, nontender, nondistended, normoactive bowel sounds. No palpable organomegaly. MUSCULOSKELETAL: No joint swelling or deformity. EXTREMITIES: No cyanosis, clubbing, 2+ edema lower extremities bilateraly NEUROLOGICAL: Gross neurological examination did not reveal any focal deficits. SKIN: No rashes. 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 History of liver cancer status post radiofrequency ablation History of hepatitis C: Cirrhosis: Patient Condition at Discharge: Fair Plan - Discharge Summary Discharge Rx Participant: No New Discharge Prescriptions: New carvediloL [Coreg] 25 mg PO AC-BID #60 tablet hydrALAZINE HCL [Apresoline] 25 mg PO TID #90 tab Continue Colchicine 0.6 mg PO DAILY traZODone HCL [Desyrel] 50 mg PO HS Cholecalciferol [Vitamin D3 (25 Mcg = 1000 Iu)] 25 mcg PO DAILY Pantoprazole Sodium [Protonix] 20 mg PO BID Albuterol Inhaler [Ventolin Hfa Inhaler] 2 puff INHALATION RT-Q6H PRN PRN Reason: Shortness Of Breath Fluticasone Propion/Salmeterol [Wixela 500-50 Inhub] 1 puff INHALATION RT-BID Folic Acid 1 mg PO DAILY Ferrous Sulfate [Iron (65 MG Elemental)] 325 mg PO DAILY Naloxone HCl [Narcan] 4 mg NASAL DIRECTED PRN PRN Reason: Opioid Overdose Ipratropium-Albuterol Nebulize [Duoneb 0.5 mg-3 mg/3 ml Soln] 3 ml INHALATION RT-Q4H PRN each PRN Reason: shortness of breath Diclofenac Sodium Gel [Voltaren 1% Gel] 1 applic TOPICAL QID PRN PRN Reason: Pain predniSONE 5 mg PO DAILY Dapagliflozin Propanediol [Farxiga] 5 mg PO DAILY tab Sennosides-Docusate Sodium [Senokot-S] 1 tab PO DAILY Apixaban [Eliquis] 2.5 mg PO Q12H Doxycycline Monohydrate 100 mg PO BID Tiotropium 2.5 Mcg/Puff [Spiriva Respimat 2.5 Mcg] 1 puff INHALATION RT-BID Multivit-Min/FA/Lycopen/Lutein [Centrum Silver Tablet] 1 tab PO DAILY Furosemide [Lasix] 40 mg PO DAILY tab guaiFENesin [Mucinex] 600 mg PO Q12HR tab HYDROcodone/APAP 10-325MG [Alfred 10-325] 1 tab PO QID PRN #12 tab PRN Reason: Pain ALPRAZolam [Xanax] 0.25 mg PO Q6H PRN PRN Reason: Anxiety Discontinued carvediloL [Coreg] 12.5 mg PO BID amLODIPine [Norvasc] 5 mg PO DAILY tab Discharge Medication List Colchicine 0.6 mg PO DAILY 08/02/16 [History] Tiotropium 2.5 Mcg/Puff [Spiriva Respimat 2.5 Mcg] 1 puff INHALATION RT-BID [History] traZODone HCL [Desyrel] 50 mg PO HS 01/14/23 [History] Cholecalciferol [Vitamin D3 (25 Mcg = 1000 Iu)] 25 mcg PO DAILY 02/11/23 [History] Multivit-Min/FA/Lycopen/Lutein [Centrum Silver Tablet] 1 tab PO DAILY 02/11/23 [History] Albuterol Inhaler [Ventolin Hfa Inhaler] 2 puff INHALATION RT-Q6H PRN 06/30/23 [History] Pantoprazole Sodium [Protonix] 20 mg PO BID 06/30/23 [History] Fluticasone Propion/Salmeterol [Wixela 500-50 Inhub] 1 puff INHALATION RT-BID 01/14/24 [History] Ferrous Sulfate [Iron (65 MG Elemental)] 325 mg PO DAILY 02/06/24 [History] Folic Acid 1 mg PO DAILY 02/06/24 [History] Naloxone HCl [Narcan] 4 mg NASAL DIRECTED PRN 02/06/24 [History] Ipratropium-Albuterol Nebulize [Duoneb 0.5 mg-3 mg/3 ml Soln] 3 ml INHALATION RT-Q4H PRN each 02/07/24 [Rx] Diclofenac Sodium Gel [Voltaren 1% Gel] 1 applic TOPICAL QID PRN 05/14/24 [History] predniSONE 5 mg PO DAILY 07/04/24 [History] Dapagliflozin Propanediol [Farxiga] 5 mg PO DAILY tab 07/09/24 [Rx] Furosemide [Lasix] 40 mg PO DAILY tab 07/09/24 [Rx] HYDROcodone/APAP 10-325MG [Alfred 10-325] 1 tab PO QID PRN #12 tab 07/09/24 [Rx] guaiFENesin [Mucinex] 600 mg PO Q12HR tab 07/09/24 [Rx] ALPRAZolam [Xanax] 0.25 mg PO Q6H PRN 07/25/24 [History] Apixaban [Eliquis] 2.5 mg PO Q12H 07/25/24 [History] Doxycycline Monohydrate 100 mg PO BID 07/25/24 [History] Sennosides-Docusate Sodium [Senokot-S] 1 tab PO DAILY 07/25/24 [History] carvediloL [Coreg] 25 mg PO AC-BID #60 tablet 07/27/24 [Rx] hydrALAZINE HCL [Apresoline] 25 mg PO TID #90 tab 07/27/24 [Rx] Follow up Appointment(s)/Referral(s): Drew Medrano MD [Primary Care Provider] - [facility] [NON-STAFF] - 1-2 Days Discharge Disposition: HOME SELF-CARE
[2024-07-27 14:13] LABS: Free Kappa Lt Chain Qnt, Serum 10.46 mg/dL (0.33-1.94); Free Lambda Lt Chain Qnt, Seru 13.76 mg/dL (0.57-2.63)
[2024-07-27 15:32] VITALS: PULSE 80
--- NOTE | 2024-07-27 16:11 | P.PN ---
Subjective Progress Note Date: 07/27/24 On 07/27/2024, patient is being seen for a follow-up. He seems to be slightly short of breath compared to yesterday. He remains in atrial fibrillation. Rate is controlled at this point in time. Patient is known to me for his multiple comorbidities including COPD. He also has chronic proximal atrial fibrillation, COPD, he has hepatocellular carcinoma that was ablated in the past and the patient also has CHF with bicuspid aortic valve with moderate to severe aortic stenosis and chronic kidney disease. He has a pacemaker in place. For now, the patient is doing well. He is on 2 L of oxygen by nasal cannula with a pulse ox of 99%. The white cell count is at 1.7 with a hemoglobin 10.3 and a platelet count of 58 consistent with pancytopenia. BUN is 53 with a creatinine of 2.3 and a sodium level is at 142. Medication include Coreg and Farxiga and hydralazine. He is also on anticoagulation with Eliquis. He is on a prednisone burst taper starting with 30 mg p.o. daily and Symbicort as maintenance and Ventolin has been her necessary basis in combination with Spiriva. No chest pain. No altered mentation. No other new complaints otherwise for now. No major swelling in lower extremities bilaterally. Objective - Vital Signs Vital signs: Vital Signs Temp 97.6 F 07/27/24 06:11 Pulse 78 07/27/24 11:46 Resp 18 07/27/24 06:24 BP 136/85 07/27/24 06:11 Pulse Ox 100 07/27/24 08:20 FiO2 Intake & Output 07/26/24 07/27/24 07/27/24 18:59 06:59 18:59 Intake Total 336 591 221 Output Total 450 650 Balance -114 -59 221 Weight 87 kg Intake: Oral 336 591 221 Output: Urine 450 650 Other: Voiding Method Toilet - Exam No acute distress, oriented 3. The patient calm comfortable on 2 L of oxygen by nasal cannula HEENT examination is grossly unremarkable. Mucous membranes are moist. No oral lesions. Neck supple. Full range of motion. No adenopathy thyromegaly or neck vein distention. Cardiovascular examination reveals irregular rhythm rate. S1-S2 normal. No S3 or S4. Systolic ejection murmur grade 3/6 heard over the apex and left lateral sternal border. Heart sounds are distant. Lungs reveal bibasilar crackles. Scattered rhonchi. No wheezes. Breath sounds are equal bilaterally. Abdomen soft bowel sounds are heard. No masses or tenderness. Extremities are intact. No cyanosis or clubbing. Trace edema. Skin is without rash or lesion. Neurologic examination is brief but nonfocal. - Labs CBC & Chem 7: 07/26/24 04:01 07/26/24 04:01 Labs: Abnormal Lab Results - Last 24 Hours (Table) 07/26/24 Range/Units 14:00 Urine Glucose (UA) Trace H (Negative) Urine Blood Trace H (Negative) Urine Bacteria Rare H (None) /hpf Urine Mucus Rare H (None) /hpf Assessment and Plan Plan: Acute on top of chronic shortness of breath, essentially related to CHF exacerbated by recurrent episode of atrial fibrillation. Rate is controlled and the patient is currently off Cardizem drip. The patient's shortness of breath is predominantly related to congestion heart failure although the patient has a underlying component of COPD in addition. Chest x-ray showed increased pulm vessel congestion. Previous echocardiogram showed impaired LV function with an ejection fraction of 35 to 40%, with moderate degree of aortic valve stenosis. He also has mild aortic dilatation at the level of the root measuring 41 mm in size. He has moderate RV dilatation, mild pulmonary hypertension. Noncontrast CAT scan of the chest was done on 07/06/2024 and showed COPD with some chronic scarring left lung base. No evidence of any pneumonia. Condition remains st able Acute hypoxic respiratory failure, recovered and the patient is currently on 2 L of oxygen by nasal cannula Moderately severe aortic stenosis Chronic atrial fibrillation, controlled rate, maintained on anticoagulation with Eliquis and the patient is also on Toprol-XL 50 mg p.o. daily. History of moderate COPD with an FEV1 that is 59% of predicted. Ongoing chronic kidney disease with a component of acute kidney injury. The patient has chronic stage III kidney disease and the creatinine is stable for now History of congestive heart failure, it was a recent admission between May 14 and May 16. History of implantation of permanent pacemaker. History of hypertension. Myocardial infarction. History of hepatitis C. 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 Hepatocellular carcinoma. History of multiple medical problems and comorbidities. Plan Patient remains in atrial fibrillation with a controlled rate Medication adjustments by cardiology was noted Wean off FiO2 as tolerated to maintain saturation above 90%, currently on 2 L In terms of COPD, the patient has been maintained on Wixela and tiotropium on an outpatient basis and this will be continued in addition to albuterol rescue inhalers Continue Coreg Continue hydralazine Continue Farxiga and closely monitor the renal function Lasix 40 mg p.o. daily Continue anticoagulation with Eliquis Prednisone burst taper Will continue to follow.
== END 2024-07-27 18:31 | disposition home or self-care (01) | DRG 291 ==
LOC: EC 15:44 → 6NMEDSUR 18:31 → OBSVTOIN 07-27 07:36
PROVIDERS: ADMIT Hospitalist; ATTEND Hospitalist
DX: I13.0 Hypertensive heart and chronic kidney disease with heart failure and stage 1 through stage 4 chronic kidney disease, or unspecified chronic kidney disease (principal); I50.23 Acute on chronic systolic (congestive) heart failure; J96.21 Acute and chronic respiratory failure with hypoxia; N17.0 Acute kidney failure with tubular necrosis; D61.818 Other pancytopenia; J44.1 Chronic obstructive pulmonary disease with (acute) exacerbation; I27.22 Pulmonary hypertension due to left heart disease; K74.60 Unspecified cirrhosis of liver; N18.32 Chronic kidney disease, stage 3b; Q23.81 Bicuspid aortic valve; Q21.12 Patent foramen ovale; I48.0 Paroxysmal atrial fibrillation; I42.9 Cardiomyopathy, unspecified; I49.5 Sick sinus syndrome; B19.20 Unspecified viral hepatitis C without hepatic coma; Z79.01 Long term (current) use of anticoagulants; Z99.81 Dependence on supplemental oxygen; I49.3 Ventricular premature depolarization; Z95.0 Presence of cardiac pacemaker; I08.0 Rheumatic disorders of both mitral and aortic valves; Z79.52 Long term (current) use of systemic steroids; Z79.84 Long term (current) use of oral hypoglycemic drugs; Z79.51 Long term (current) use of inhaled steroids; Z79.82 Long term (current) use of aspirin; Z85.05 Personal history of malignant neoplasm of liver; Z92.3 Personal history of irradiation; Z85.818 Personal history of malignant neoplasm of other sites of lip, oral cavity, and pharynx; Z87.891 Personal history of nicotine dependence; I25.2 Old myocardial infarction; Z79.899 Other long term (current) drug therapy; Z85.828 Personal history of other malignant neoplasm of skin
CPT/HCPCS: 36415; 71045; 71046; 80053; 81001; 83735; 83880; 83883; 84100; 84443; 84484; 85025; 85610; 85730; 93005; 94640; 94760; 96365; 96366; 99291

== ENCOUNTER 2024-09-10 12:01 | Observation (INO) | payer MEDICARE, OTHER ==
[2024-09-10 13:45] LABS: Basophils # (A) 0.01 10*3/uL (0.00-0.10); Basophils % (A) 0.7 %; Eosinophils # (A) 0.05 10*3/uL (0.04-0.35); Eosinophils % (A) 3.3 %; HCT 33.9 % (39.6-50.0); HGB 10.2 g/dL (13.0-17.0); Lymphocytes % (A) 13.2 %; MCH 26.2 pg (27.0-32.0); MCHC 30.1 g/dL (32.0-37.0); MCV 86.9 fL (80.0-97.0); Mean Platelet Volume 13.3 fL (9.5-12.2); Monocytes # (A) 0.11 10*3/uL (0.20-1.00); Monocytes % (A) 7.2 %; Neutrophils # (A) 1.14 10*3/uL (1.80-7.70); Neutrophils % (A) 74.9 %; RDW 17.4 % (11.5-14.5); WBC 1.52 10*3/uL (4.50-10.00)
--- NOTE | 2024-09-10 13:54 | ED ---
General Adult HPI - General Chief complaint: Shortness of Breath Stated complaint: SOB Time Seen by Provider: 09/10/24 12:10 Source: patient, RN notes reviewed, old records reviewed Mode of arrival: wheelchair Limitations: no limitations - History of Present Illness Initial comments: This is a 74-year-old male who presents to the emergency department stating he has a past medical history significant for COPD and congestive heart failure. Patient states he believes he has fluid on his lungs secondary to an aortic stenosis and he is post to have surgery on that in the future. Patient comes in today because of difficulty breathing over the last 6 weeks got progressively worse to the point where it is difficult for him to even walk across the room. Patient states he has noted a little bit of swelling in his ankles as well. Patient denies any chest pain or palpitation. Patient has any recent fever or chills. - Related Data Home Medications Medication Instructions Recorded Confirmed Colchicine 0.6 mg PO DAILY 08/02/16 07/25/24 Tiotropium 2.5 Mcg/Puff [Spiriva 1 puff INHALATION RT-BID 01/14/23 07/25/24 Respimat 2.5 Mcg] traZODone HCL [Desyrel] 50 mg PO HS 01/14/23 07/25/24 Cholecalciferol [Vitamin D3 (25 25 mcg PO DAILY 02/11/23 07/25/24 Mcg = 1000 Iu)] Multivit-Min/FA/Lycopen/Lutein 1 tab PO DAILY 02/11/23 07/25/24 [Centrum Silver Tablet] Albuterol Inhaler [Ventolin Hfa 2 puff INHALATION RT-Q6H PRN 06/30/23 07/25/24 Inhaler] Pantoprazole Sodium [Protonix] 20 mg PO BID 06/30/23 07/25/24 Fluticasone Propion/Salmeterol 1 puff INHALATION RT-BID 01/14/24 07/25/24 [Wixela 500-50 Inhub] Ferrous Sulfate [Iron (65 MG 325 mg PO DAILY 02/06/24 07/25/24 Elemental)] Folic Acid 1 mg PO DAILY 02/06/24 07/25/24 Naloxone HCl [Narcan] 4 mg NASAL DIRECTED PRN 02/06/24 07/25/24 Diclofenac Sodium Gel [Voltaren 1% 1 applic TOPICAL QID PRN 05/14/24 07/25/24 Gel] predniSONE 5 mg PO DAILY 07/04/24 07/25/24 ALPRAZolam [Xanax] 0.25 mg PO Q6H PRN 07/25/24 07/25/24 Apixaban [Eliquis] 2.5 mg PO Q12H 07/25/24 07/25/24 Doxycycline Monohydrate 100 mg PO BID 07/25/24 07/25/24 Sennosides-Docusate Sodium 1 tab PO DAILY 07/25/24 07/25/24 [Senokot-S] Previous Rx's Medication Instructions Recorded Ipratropium-Albuterol Nebulize 3 ml INHALATION RT-Q4H PRN each 02/07/24 [Duoneb 0.5 mg-3 mg/3 ml Soln] Furosemide [Lasix] 40 mg PO DAILY tab 07/09/24 HYDROcodone/APAP 10-325MG [[place] 1 tab PO QID PRN #12 tab 07/09/24 10-325] guaiFENesin [Mucinex] 600 mg PO Q12HR tab 07/09/24 Dapagliflozin Propanediol [Farxiga] 5 mg PO DAILY 10 Days #10 tab 07/27/24 carvediloL [Coreg] 25 mg PO AC-BID #60 tablet 07/27/24 hydrALAZINE HCL [Apresoline] 25 mg PO TID #90 tab 07/27/24 Allergies Allergy/AdvReac Type Severity Reaction Status Date / Time allopurinol AdvReac Gout Verified 07/25/24 20:00 atenolol AdvReac Fatigue,Bra Verified 07/25/24 20:00 dycardia doxazosin AdvReac Delerium,Di Verified 07/25/24 20:00 zziness hydralazine AdvReac Unknown Verified 07/25/24 20:00 lisinopril AdvReac Cough Verified 07/25/24 20:00 metoprolol [From Lopressor] AdvReac Chest Pain Verified 07/25/24 20:00 omalizumab [From Xolair] AdvReac urticaria Verified 07/25/24 20:00 Review of Systems ROS Statement: Those systems with pertinent positive or pertinent negative responses have been documented in the HPI. ROS Other: All systems not noted in ROS Statement are negative. 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 Hospitalized last week for CHF & Pneumonia. Irr. heart rate @ times. liver cancer Last Myocardial Infarction Date:: 2022 History of Any Multi-Drug Resistant Organisms: None Reported Past Surgical History: Back Surgery, Heart Catheterization, Hernia Repair, Orthopedic Surgery, Pacemaker Additional Past Surgical History / Comment(s): liver ablation done at [place] for tx of hepatocellular carcinoma,hemorrhoids ,back surgery, cataract, skin cancer, inguinal hernia, abdominal hernia, left shoulder, right wrist, growth removed vocal cord, PAROTID GLAND REMOVED DUE TO CANCER. Past Anesthesia/Blood Transfusion Reactions: No Reported Reaction Additional Past Anesthesia/Blood Transfusion Reaction / Comment(s): no hx blood transfusion Type of Cardiac Device: Permanent Pacemaker Device Placement Date:: 01/20/24 Past Psychological History: No Psychological Hx Reported Smoking Status: Former smoker Past Alcohol Use History: None Reported Past Drug Use History: None Reported - Past Family History Father Family Medical History: Cancer General Exam - General Exam Comments Initial Comments: GENERAL: Patient is well-developed and well-nourished. Patient is nontoxic and well- hydrated and is in mild distress. ENT: Neck is soft and supple. No significant lymphadenopathy is noted. Oropharynx is clear. Moist mucous membranes. Neck has full range of motion without eliciting any pain. EYES: The sclera were anicteric and conjunctiva were pink and moist. Extraocular movements were intact and pupils were equal round and reactive to light. Ey elids were unremarkable. PULMONARY: Crackles in bases left worse than right CARDIOVASCULAR: Patient has an irregular rate ABDOMEN: Soft and nontender with normal bowel sounds. SKIN: Skin is clear with no lesions or rashes and otherwise unremarkable. NEUROLOGIC: Patient is alert and oriented x3. Cranial nerves II through XII are grossly intact. Motor and sensory are also intact. Normal speech, volume and content. Symmetrical smile. MUSCULOSKELETAL: Normal extremities with adequate strength and full range of motion. 1+ edema bilaterally LYMPHATICS: No significant lymphadenopathy is noted PSYCHIATRIC: Normal psychiatric evaluation. Limitations: no limitations Course Vital Signs 06/05/25 12:08 Temperature 98.5 F Pulse Rate 101 H Respiratory 21 Rate Blood Pressure 125/73 O2 Sat by Pulse 96 Oximetry Medical Decision Making - Medical Decision Making EKG is interpreted by myself. EKG shows A-fib at 98 bpm QRS is 109 QT interval is 385 QTc is 440. Patient EKG shows no ST segment elevation or depression. EKG did show a PVC Was pt. sent in by a medical professional or institution (, [facility], CERTIFIED ACTIVITIES DIRECTOR, urgent care, hospital, or penitentiary...) When possible be specific @ -No Did you speak to anyone other than the patient for history (EMS, parent, family, police, friend...)? What history was obtained from this source @ -No Did you review nursing and triage notes (agree or disagree)? Why? @ -I reviewed and agree with nursing and triage notes Were old charts reviewed (outside hosp., previous admission, EMS record, old EKG, old radiological studies, urgent care reports/EKG's, penitentiary records)? Report findings @ -No old charts were reviewed Differential Diagnosis? @ -Differential Dyspnea: Coronary syndrome, arrhythmia, tamponade, asthma, COPD, pulmonary embolism, pneumonia, pneumothorax, pulmonary effusion, anaphylaxis, diabetic ketoacidosis, flailed chest, pulmonary contusion, diaphragmatic rupture, anemia, neurom uscular, this is not meant to be an all-inclusive list. EKG interpreted by me (3pts min.). @ -As above X-rays interpreted by me (1pt min.). @ -Chest x-ray is consistent with pulmonary edema with some effusions CT interpreted by me (1pt min.). @ -None done U/S interpreted by me (1pt. min.). @ -None done What testing was considered but not performed or refused? (CT, X-rays, U/S, labs)? Why? @ -None What meds were considered but not given or refused? Why? @ -None Did you discuss the management of the patient with other professionals (professionals i.e. [facility] Mendez, CERTIFIED ACTIVITIES DIRECTOR, lab, RT, psych nurse, clinical social work aide, retail mortgage banker, teacher, equal opportunity officer, nurse case manager)? Give summary @ -I spoke with the significant hospitalist agreed to admit the patient admit the patient I wrote admitting orders Was smoking cessation discussed for >3mins.? @ -No Was critical care preformed (if so, how long)? @ -No Were there social determinants of health that impacted care today? How? (Homelessness, low income, unemployed, alcoholism, drug addiction, transportation, low edu. Level, literacy, decrease access to med. care, snf, rehab)? @ -No Was there de-escalation of care discussed even if they declined (Discuss DNR or withdrawal of care, Hospice)? DNR status @ -No What co-morbidities impacted this encounter? (DM, HTN, Smoking, COPD, CAD, Cancer, CVA, ARF, Chemo, Hep., AIDS, mental health diagnosis, sleep apnea, morb id obesity)? @ -None Was patient admitted / discharged? Hospital course, mention meds given and rout e, prescriptions, significant lab abnormalities, going to OR and other pertinent info. @ -Patient received Nitropaste and Lasix in the emergency department patient did not feel that he could go home because he was having such a hard time breathing when he ambulated so he wanted to be admitted. Undiagnosed new problem with uncertain prognosis? @ -No Drug Therapy requiring intensive monitoring for toxicity (Heparin, Nitro, Insulin, Cardizem)? @ -No Were any procedures done? @ -No Diagnosis/symptom? @ -Acute pulmonary edema Acute, or Chronic, or Acute on Chronic? @ -Acute Uncomplicated (without systemic symptoms) or Complicated (systemic symptoms)? @ -Default Side effects of treatment? @ -No Exacerbation, Progression, or Severe Exacerbation? @ -No Poses a threat to life or bodily function? How? (Chest pain, [place], [place], pneumonia, PE, COPD, DKA, ARF, appy, cholecystitis, CVA, Diverticulitis, Homicidal, Suicidal, threat to staff... and all critical care pts) @ -Yes this could lead to hypoxia and endorgan dysfunction - Lab Data Result diagrams: 09/10/24 13:29 09/10/24 13:29 Lab Results 09/10/24 09/10/24 09/10/24 Range/Units 13:29 13:29 13:29 WBC 1.52 L (4.50-10.00) 10*3/uL RBC 3.90 L (4.40-5.60) 10*6/uL Hgb 10.2 L (13.0-17.0) g/dL Hct 33.9 L (39.6-50.0) % MCV 86.9 (80.0-97.0) fL MCH 26.2 L (27.0-32.0) pg MCHC 30.1 L (32.0-37.0) g/dL Plt Count 80 L (140-440) 10*3/uL MPV 13.3 H (9.5-12.2) fL Immature Gran % (Auto) 0.7 % Neutrophils % 74.9 % Lymphocytes % 13.2 % Monocytes % 7.2 % Eosinophils % 3.3 % Basophils % 0.7 % Immature Gran # 0.01 (0.00-0.04) 10*3/uL Neutrophils # 1.14 L (1.80-7.70) 10*3/uL Lymphocytes # 0.20 L (0.90-5.00) 10*3/uL Monocytes # 0.11 L (0.20-1.00) 10*3/uL Eosinophils # 0.05 (0.04-0.35) 10*3/uL Basophils # 0.01 (0.00-0.10) 10*3/uL Manual Slide Review Performed Large Platelets Present Fragmented RBCs Present PT 12.1 (10.0-12.5) sec INR 1.1 (<1.2) APTT 28.6 (22.0-30.0) sec Sodium 141 (137-145) mmol/L Potassium 4.2 (3.5-5.1) mmol/L Chloride 102 (98-107) mmol/L Carbon Dioxide 25 (22-30) mmol/L Anion Gap 14 mmol/L BUN 62 H (9-20) mg/dL Creatinine 2.50 H (0.66-1.25) mg/dL Est GFR (CKD-EPI)AfAm 28 (>60 ml/min/1.73 sqM) Est GFR (CKD-EPI)NonAf 25 (>60 ml/min/1.73 sqM) Glucose 108 H (74-99) mg/dL Plasma Lactic Acid [place]hel (0.7-2.0) mmol/L Calcium 9.0 (8.4-10.2) mg/dL Magnesium 2.3 (1.6-2.3) mg/dL Total Bilirubin 1.0 (0.2-1.3) mg/dL AST 27 (17-59) U/L ALT 18 (4-49) U/L Alkaline Phosphatase 79 (38-126) U/L Troponin I (0.000-0.034) ng/mL NT-Pro-B Natriuret Pep 14865 pg/mL Total Protein 6.8 (6.3-8.2) g/dL Albumin 3.8 (3.5-5.0) g/dL 09/10/24 09/10/24 Range/Units 13:29 13:29 WBC (4.50-10.00) 10*3/uL RBC (4.40-5.60) 10*6/uL Hgb (13.0-17.0) g/dL Hct (39.6-50.0) % MCV (80.0-97.0) fL MCH (27.0-32.0) pg MCHC (32.0-37.0) g/dL Plt Count (140-440) 10*3/uL MPV (9.5-12.2) fL Immature Gran % (Auto) % Neutrophils % % Lymphocytes % % Monocytes % % Eosinophils % % Basophils % % Immature Gran # (0.00-0.04) 10*3/uL Neutrophils # (1.80-7.70) 10*3/uL Lymphocytes # (0.90-5.00) 10*3/uL Monocytes # (0.20-1.00) 10*3/uL Eosinophils # (0.04-0.35) 10*3/uL Basophils # (0.00-0.10) 10*3/uL Manual Slide Review Large Platelets Fragmented RBCs PT (10.0-12.5) sec INR (<1.2) APTT (22.0-30.0) sec Sodium (137-145) mmol/L Potassium (3.5-5.1) mmol/L Chloride (98-107) mmol/L Carbon Dioxide (22-30) mmol/L Anion Gap mmol/L BUN (9-20) mg/dL Creatinine (0.66-1.25) mg/dL Est GFR (CKD-EPI)AfAm (>60 ml/min/1.73 sqM) Est GFR (CKD-EPI)NonAf (>60 ml/min/1.73 sqM) Glucose (74-99) mg/dL Plasma Lactic Acid [place]hel 1.5 (0.7-2.0) mmol/L Calcium (8.4-10.2) mg/dL Magnesium (1.6-2.3) mg/dL Total Bilirubin (0.2-1.3) mg/dL AST (17-59) U/L ALT (4-49) U/L Alkaline Phosphatase (38-126) U/L Troponin I 0.025 (0.000-0.034) ng/mL NT-Pro-B Natriuret Pep pg/mL Total Protein (6.3-8.2) g/dL Albumin (3.5-5.0) g/dL Disposition Clinical Impression: Acute pulmonary edema Disposition: ADMITTED IP TO THIS HOSP Referrals: Drew Medrano MD [Primary Care Provider] - 1-2 days Time of Disposition: 15:32
[2024-09-10 13:58] LABS: ALT 18 U/L (4-49); AST 27 U/L (17-59); African American GFR (CKD) 28 (>60 ml/min/1.73 sqM); Albumin 3.8 g/dL (3.5-5.0); Alkaline Phosphatase 79 U/L (38-126); Anion Gap 14 mmol/L; Blood Urea Nitrogen 62 mg/dL (9-20); Carbon Dioxide 25 mmol/L (22-30); Chloride 102 mmol/L (98-107); Glucose 108 mg/dL (74-99); Magnesium 2.3 mg/dL (1.6-2.3); Non-African American GFR(CKD) 25 (>60 ml/min/1.73 sqM); Potassium 4.2 mmol/L (3.5-5.1); Sodium 141 mmol/L (137-145); Total Protein 6.8 g/dL (6.3-8.2)
[2024-09-10 14:01] LABS: INR 1.1 (<1.2); Partial Thromboplastin Time 28.6 sec (22.0-30.0); Prothrombin Time 12.1 sec (10.0-12.5)
[2024-09-10 14:06] LABS: NT-Pro-B-Type Natriuretic Pept 22600 pg/mL
--- NOTE | 2024-09-10 14:26 | XR ---
EXAMINATION TYPE: XR chest 2V DATE OF EXAM: 09/10/2024 1:34 PM COMPARISON: 07/26/2024 CLINICAL INDICATION: Male, 74 years old with history of difficulty breathing, TECHNIQUE: XR chest 2V view(s) obtained. FINDINGS: The heart size is enlarged. The pulmonary vasculature is normal. Right lower lobe infiltrate. Some mild retrocardiac infiltrate is present. Interval bilateral pleural effusions may be present. IMPRESSION: 1. Bibasilar infiltrates with minimal effusions. Correlate for atelectasis and pneumonia. 2. [facility], , 09/10/2024 2:24 PM
[2024-09-10 14:41] LABS: Platelet Count 80 10*3/uL (140-440)
[2024-09-10 14:43] LABS: Large Platelets Present
[2024-09-10 14:44] LABS: RBC Fragments Present
[2024-09-10] MEDS: FUROSEMIDE 10 MG/ML 10 ML VIAL IV STA (15:01)
[2024-09-10] MEDS: FUROSEMIDE 10 MG/ML 4 ML VIAL IV SCH (15:53)
[2024-09-10] MEDS: NITROGLYCERIN OINT 1 INCH/GM PACKET TOPICAL SCH (17:38)
[2024-09-10] MEDS: traZODone HCL 50 MG TAB PO SCH (22:23)
[2024-09-11 02:28] VITALS: TEMP 97.5
[2024-09-11] MEDS: ALBUTEROL NEBULIZED 2.5 MG/3 ML INHALATION PRN (04:44)
[2024-09-11] MEDS ORDERED: IPRATROPIUM-ALBUTEROL 3 ML NEB INHALATION SCH (08:00)
[2024-09-11] MEDS: DAPAGLIFLOZIN PROPANEDIOL 5 MG TABLET PO SCH (08:18)
[2024-09-11] MEDS: carvediloL 12.5 MG TAB PO SCH (08:18)
[2024-09-11] MEDS: APIXABAN 2.5 MG TABLET PO SCH (08:18)
[2024-09-11] MEDS: FUROSEMIDE 10 MG/ML 4 ML VIAL IV SCH ×2 (08:18→09:58)
[2024-09-11] MEDS: hydrALAZINE HCL 25 MG TAB PO SCH (08:18)
--- NOTE | 2024-09-11 08:30 | P.CRDCN ---
History of Present Illness Consult date: 09/11/24 Reason for Consult (text): Acute pulmonary edema History of present illness: This is a 74-year-old male patient of Dr. 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 We have been asked to evaluate the patient for acute pulmonary edema. Patient states that he has had increasing shortness of breath for the past 2 days. He states he is waking up in the night with his feet and legs hurting him when he gets up and walks for couple minutes. He has had some chest pain that comes and goes but breathing is mostly his problem. He does have some increased dyspnea on exertion and he feels more congested for the past few days. He states he has been taking all of his medications as directed. Patient is scheduled for an appointment regarding his aortic valve replacement at [facility] on Saturday. Patient also voices that he would like to be discharged to see his grandsons birthday libertarian that is scheduled for tomorrow. Patient is status post 1 dose of IV Lasix 60 mg followed by Lasix 40 mg IV every 8 hours. Blood pressure 118/84, heart rate in the 80s, pulse ox 95% on 2 L nasal cannula. Patient states that he is feeling improvement after IV Lasix. -EKG: Atrial fibrillation with aberrant conduction. -Chest x-ray: Bibasilar infiltrates with minimal effusions. Correlate for atelectasis and pneumonia. Cardiomegaly. -Laboratory studies: WBC 1.5, hemoglobin 10.2, platelet count 80. Electrolytes are normal. BUN 62 creatinine 2.5. Troponin 0.025. proBNP 22,600. -Home cardiac medications: -Dual-chamber permanent pacemaker implantation 01/20/2024, [employer]. -Echocardiogram performed at [facility] on 07/04/2024 revealed EF of 35 to 40%. Aortic sclerosis with moderate stenosis. -Cardiac catheterization performed 06/14/2022 revealed relatively normal coronary arteries with mid LAD 30% stenosis, moderate aortic stenosis, elevated left- sided filling pressures. -MAHESH performed 03/15/2023 revealed moderate aortic stenosis with aortic valve area 1.3 cm, moderate eccentric aortic insufficiency with noted diastolic flow reversal. Mild mitral regurgitation, mild tricuspid regurgitation, no PFO. No left atrial appendage clot. EF 50 to 55%. Review Of Systems: At the time of my exam: CONSTITUTIONAL: Denies fever or chills. HEENT: Denies blurred vision, vision changes, or eye pain. Denies hemoptysis CARDIOVASCULAR: Denies chest pain. Denies orthopnea. Denies PND. Denies palpitations RESPIRATORY: Denies shortness of breath. Reports dyspnea on exertion, improved GASTROINTESTINAL: Denies abdominal pain. Denies nausea or vomiting. HEMATOLOGIC: Denies bleeding disorders. GENITOURINARY: Denies any blood in urine. SKIN: Denies puritis. Denies rash. Physical examination: Gen: This is a 74-year-old male in no acute distress VS: reviewed HEENT: Head is atraumatic, normocephalic. Pupils equal, round. Sclerae is anicteric. NECK: Supple. No JVD. LUNGS: Few bilateral crackles. No intercostal retractions. HEART: Irregular rate and rhythm. Systolic murmur. ABDOMEN: Soft No tenderness. EXTREMITIES: No pedal edema. No calf tenderness. NEUROLOGICAL: Patient is awake, alert and oriented x3. 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 Post in 1 week. Thank you kindly for this consultation. Nurse practitioner note has been reviewed, I agree with documented findings and plan of care. Patient was seen and examined. 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 Hospitalized last week for CHF & Pneumonia. Irr. heart rate @ times. liver cancer Last Myocardial Infarction Date:: 2022 History of Any Multi-Drug Resistant Organisms: None Reported Past Surgical History: Back Surgery, Heart Catheterization, Hernia Repair, Orthopedic Surgery, Pacemaker Additional Past Surgical History / Comment(s): liver ablation done at [place] for tx of hepatocellular carcinoma,hemorrhoids ,back surgery, cataract, skin cancer, inguinal hernia, abdominal hernia, left shoulder, right wrist, growth removed vocal cord, PAROTID GLAND REMOVED DUE TO CANCER. Past Anesthesia/Blood Transfusion Reactions: No Reported Reaction Additional Past Anesthesia/Blood Transfusion Reaction / Comment(s): no hx blood transfusion Type of Cardiac Device: Permanent Pacemaker Device Placement Date:: 01/20/24 Past Psychological History: No Psychological Hx Reported Smoking Status: Former smoker Past Alcohol Use History: None Reported Past Drug Use History: None Reported - Past Family History Father Family Medical History: Cancer Medications and Allergies Home Medications Medication Instructions Recorded Confirmed Type Colchicine 0.6 mg PO DAILY 08/02/16 09/10/24 History Tiotropium 2.5 Mcg/Puff [Spiriva 1 puff INHALATION RT-BID 01/14/23 09/10/24 History Respimat 2.5 Mcg] traZODone HCL [Desyrel] 50 mg PO HS 01/14/23 09/10/24 History Cholecalciferol [Vitamin D3 (25 25 mcg PO DAILY 02/11/23 09/10/24 History Mcg = 1000 Iu)] Multivit-Min/FA/Lycopen/Lutein 1 tab PO DAILY 02/11/23 09/10/24 History [Centrum Silver Tablet] Albuterol Inhaler [Ventolin Hfa 2 puff INHALATION RT-Q6H PRN 06/30/23 09/10/24 History Inhaler] Pantoprazole Sodium [Protonix] 20 mg PO DAILY 06/30/23 09/10/24 History Fluticasone Propion/Salmeterol 1 puff INHALATION RT-BID 01/14/24 09/10/24 History [Wixela 500-50 Inhub] Ferrous Sulfate [Iron (65 MG 325 mg PO DAILY 02/06/24 09/10/24 History Elemental)] Folic Acid 1 mg PO DAILY 02/06/24 09/10/24 History Naloxone HCl [Narcan] 4 mg NASAL DIRECTED PRN 02/06/24 09/10/24 History Ipratropium-Albuterol Nebulize 3 ml INHALATION RT-Q4H PRN each 02/07/24 09/10/24 Rx [Duoneb 0.5 mg-3 mg/3 ml Soln] predniSONE 5 mg PO DAILY 07/04/24 09/10/24 History ALPRAZolam [Xanax] 0.25 mg PO BID PRN 07/25/24 09/10/24 History Apixaban [Eliquis] 2.5 mg PO BID 07/25/24 09/10/24 History Sennosides-Docusate Sodium 1 tab PO DAILY 07/25/24 09/10/24 History [Senokot-S] Dapagliflozin Propanediol [Farxiga] 5 mg PO DAILY 10 Days #10 tab 07/27/24 09/10/24 Rx hydrALAZINE HCL [Apresoline] 25 mg PO TID #90 tab 07/27/24 09/10/24 Rx Furosemide [Lasix] 40 mg PO BID 09/10/24 09/10/24 History HYDROcodone/APAP 10-325MG [[place] 1 tab PO Q6H PRN 09/10/24 09/10/24 History 10-325] carvediloL [Coreg] 12.5 mg PO ACHS 09/10/24 09/10/24 History Allergies Allergy/AdvReac Type Severity Reaction Status Date / Time allopurinol AdvReac Gout Verified 09/10/24 17:13 atenolol AdvReac Fatigue,Bra Verified 09/10/24 17:13 dycardia doxazosin AdvReac Delerium,Di Verified 09/10/24 17:13 zziness hydralazine AdvReac Unknown Verified 09/10/24 17:13 lisinopril AdvReac Cough Verified 09/10/24 17:13 metoprolol [From Lopressor] AdvReac Chest Pain Verified 09/10/24 17:13 omalizumab [From Xolair] AdvReac urticaria Verified 09/10/24 17:13 Physical Exam Vitals: Vital Signs Temp Pulse Resp BP Pulse Ox 09/11/24 04:50 83 18 09/11/24 04:44 81 18 09/11/24 04:00 95 09/11/24 02:24 97.5 F L 87 20 118/84 96 09/10/24 22:13 98.4 F 101 H 18 129/78 97 09/10/24 18:28 98 18 131/90 96 09/10/24 12:08 98.5 F 101 H 21 125/73 96 Intake and Output 09/10/24 09/10/24 09/11/24 14:59 22:59 06:59 Output Total 500 1200 Balance -500 -1200 Output: Urine 500 1200 Other: Weight 83.915 kg Results 09/10/24 13:29 09/10/24 13:29 Cardiac Enzymes 09/10/24 09/10/24 Range/Units 13:29 13:29 AST 27 (17-59) U/L Troponin I 0.025 (0.000-0.034) ng/mL Coagulation 09/10/24 Range/Units 13:29 PT 12.1 (10.0-12.5) sec APTT 28.6 (22.0-30.0) sec CBC 09/10/24 Range/Units 13:29 WBC 1.52 L (4.50-10.00) 10*3/uL RBC 3.90 L (4.40-5.60) 10*6/uL Hgb 10.2 L (13.0-17.0) g/dL Hct 33.9 L (39.6-50.0) % Plt Count 80 L (140-440) 10*3/uL Comprehensive Metabolic Panel 09/10/24 Range/Units 13:29 Sodium 141 (137-145) mmol/L Potassium 4.2 (3.5-5.1) mmol/L Chloride 102 (98-107) mmol/L Carbon Dioxide 25 (22-30) mmol/L BUN 62 H (9-20) mg/dL Creatinine 2.50 H (0.66-1.25) mg/dL Glucose 108 H (74-99) mg/dL Calcium 9.0 (8.4-10.2) mg/dL AST 27 (17-59) U/L ALT 18 (4-49) U/L Alkaline Phosphatase 79 (38-126) U/L Total Protein 6.8 (6.3-8.2) g/dL Albumin 3.8 (3.5-5.0) g/dL Current Medications Generic Name Dose Route Start Last Admin Trade Name Freq PRN Reason Stop Dose Admin Albuterol/Ipratropium 3 ml 09/11/24 05:29 Ipratropium-Albuterol 3 Ml Neb INHALATION RT-Q4H PRN Shortness Of Breath Or Wheezing Furosemide 40 mg 09/10/24 16:00 09/10/24 23:30 Furosemide 10 Mg/Ml 4 Ml Vial IV 40 mg Q8H RAFY Administration Nitroglycerin 1 inch 09/10/24 18:00 09/11/24 05:27 Nitroglycerin Oint 1 Inch/Gm Packet TOPICAL 09/11/24 17:59 Not Given Q6HR RAFY Trazodone HCl 50 mg 09/10/24 22:15 09/10/24 22:23 Trazodone Hcl 50 Mg Tab PO 50 mg HS RAFY Administration Intake and Output 09/10/24 09/10/24 09/11/24 14:59 22:59 06:59 Output Total 500 1200 Balance -500 -1200 Output: Urine 500 1200 Other: Weight 83.915 kg Patient Weight 09/11/24 06:59 Weight 83.915 kg 09/10/24 13:29 09/10/24 13:29
[2024-09-11] MEDS: IPRATROPIUM-ALBUTEROL 3 ML NEB INHALATION PRN (08:40)
[2024-09-11 10:01] VITALS: RESP 18
--- NOTE | 2024-09-11 10:30 | P.HPIM ---
History of Present Illness H&P Date: 09/11/24 History of present illness; patient 74-year-old gentleman with past medical history significant for COPD, aortic stenosis, CHF who presents hospital because of shortness of breath. Patient states that for the last 6 weeks he has had worsening shortness of breath. Shortness of breath was initially present on rest but now it has progressed to exertion, patient stated he is unable to walk more than a few steps and is hard to walk across the room. Patient was complaining of swelling of lower extremities. Patient denies any chest pain. Patient denies any palpitation. There is no complaint of orthopnea or PND. Denies any nausea, vomiting abdominal pain. Patient denies any complaint of dizziness. There is no complaint of headache. Because of the symptoms, patient came to the ER Initial lab work done in the ER showed BBC 1.52, hemoglobin 10.2, platelet count 80, sodium 141, potassium 4.2, BUN 62, creatinine 2.50 GFR 28, glucose 108, lactate 1.5, calcium 9, magnesium 2.3, troponin 0.025, proBNP 22,600 EKG done in the ER showed heart rate of 98, irregular, no ST segment elevation or depression seen, no T-wave inversions seen. Chest x-ray done in the ER showed bibasilar infiltrates with minimal effusions. Correlate for atelectasis and pneumonia, cardiomegaly Patient admitted to internal medicine service REVIEW OF SYSTEMS: CONSTITUTIONAL: No fever, no malaise, no fatigue. HEENT: No recent visual problems or hearing problems. Denied any sore throat. CARDIOVASCULAR: As mentioned above PULMONARY: As mentioned above GASTROINTESTINAL: No diarrhea, no nausea, no vomiting, no abdominal pain. NEUROLOGICAL: No headaches, no weakness, no numbness. HEMATOLOGICAL: Denies any bleeding or petechiae. GENITOURINARY: Denies any burning micturition, frequency, or urgency. MUSCULOSKELETAL/RHEUMATOLOGICAL: Denies any joint pain, swelling, or any muscle pain. ENDOCRINE: Denies any polyuria or polydipsia. The rest of the 14-point review of systems is negative. PHYSICAL EXAMINATION: GENERAL: The patient is alert and oriented x3, not in any acute distress. Well developed, well nourished. HEENT: Pupils are round and equally reacting to light. EOMI. No scleral icterus. No conjunctival pallor. Normocephalic, atraumatic. No pharyngeal erythema. No thyromegaly. CARDIOVASCULAR: S1 and S2 present. No murmurs, rubs, or gallops. PULMONARY: Diminished breath sounds at the bases, no wheezing or crackles. ABDOMEN: Soft, nontender, nondistended, normoactive bowel sounds. No palpable organomegaly. MUSCULOSKELETAL: No joint swelling or deformity. EXTREMITIES: No cyanosis, clubbing, or pedal edema. NEUROLOGICAL: Gross neurological examination did not reveal any focal deficits. SKIN: No rashes. Assessment and plan Acute chronic systolic CHF Chronic hypoxic respiratory failure Pancytopenia hypertension paroxysmal atrial fibrillation moderate to severe aortic stenosis Monitor vital signs Monitor CBC Monitor CMP Continue telemetry monitoring Strict I's and O's Daily weights Fluid restriction of 1800 mL Low-salt diet Start IV Lasix 40 mg twice daily Resume Coreg and Eliquis Cardiology consulted Resume home meds Labs and medication were reviewed.. Continue same treatment. Continue with symptomatic treatment. Resume home medication. Monitor labs and vitals. DVT and GI prophylaxis. Further recommendations as per clinical course of the patient Dictation was produced using [employer] dictation software. please excuse any grammatical, word or spelling errors. 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 Hospitalized last week for CHF & Pneumonia. Irr. heart rate @ times. liver cancer Last Myocardial Infarction Date:: 2022 History of Any Multi-Drug Resistant Organisms: None Reported Past Surgical History: Back Surgery, Heart Catheterization, Hernia Repair, Orthopedic Surgery, Pacemaker Additional Past Surgical History / Comment(s): liver ablation done at [facility] for tx of hepatocellular carcinoma,hemorrhoids ,back surgery, cataract, skin cancer, inguinal hernia, abdominal hernia, left shoulder, right wrist, growth removed vocal cord, PAROTID GLAND REMOVED DUE TO CANCER. Past Anesthesia/Blood Transfusion Reactions: No Reported Reaction Additional Past Anesthesia/Blood Transfusion Reaction / Comment(s): no hx blood transfusion Type of Cardiac Device: Permanent Pacemaker Device Placement Date:: 01/20/24 Past Psychological History: No Psychological Hx Reported Smoking Status: Former smoker Past Alcohol Use History: None Reported Past Drug Use History: None Reported - Past Family History Father Family Medical History: Cancer Medications and Allergies Home Medications Medication Instructions Recorded Confirmed Type Colchicine 0.6 mg PO DAILY 08/02/16 09/10/24 History Tiotropium 2.5 Mcg/Puff [Spiriva 1 puff INHALATION RT-BID 01/14/23 09/10/24 History Respimat 2.5 Mcg] traZODone HCL [Desyrel] 50 mg PO HS 01/14/23 09/10/24 History Cholecalciferol [Vitamin D3 (25 25 mcg PO DAILY 02/11/23 09/10/24 History Mcg = 1000 Iu)] Multivit-Min/FA/Lycopen/Lutein 1 tab PO DAILY 02/11/23 09/10/24 History [Centrum Silver Tablet] Albuterol Inhaler [Ventolin Hfa 2 puff INHALATION RT-Q6H PRN 06/30/23 09/10/24 History Inhaler] Pantoprazole Sodium [Protonix] 20 mg PO DAILY 06/30/23 09/10/24 History Fluticasone Propion/Salmeterol 1 puff INHALATION RT-BID 01/14/24 09/10/24 History [Wixela 500-50 Inhub] Ferrous Sulfate [Iron (65 MG 325 mg PO DAILY 02/06/24 09/10/24 History Elemental)] Folic Acid 1 mg PO DAILY 02/06/24 09/10/24 History Naloxone HCl [Narcan] 4 mg NASAL DIRECTED PRN 02/06/24 09/10/24 History Ipratropium-Albuterol Nebulize 3 ml INHALATION RT-Q4H PRN each 02/07/24 09/10/24 Rx [Duoneb 0.5 mg-3 mg/3 ml Soln] predniSONE 5 mg PO DAILY 07/04/24 09/10/24 History ALPRAZolam [Xanax] 0.25 mg PO BID PRN 07/25/24 09/10/24 History Apixaban [Eliquis] 2.5 mg PO BID 07/25/24 09/10/24 History Sennosides-Docusate Sodium 1 tab PO DAILY 07/25/24 09/10/24 History [Senokot-S] Dapagliflozin Propanediol [Farxiga] 5 mg PO DAILY 10 Days #10 tab 07/27/24 09/10/24 Rx hydrALAZINE HCL [Apresoline] 25 mg PO TID #90 tab 07/27/24 09/10/24 Rx Furosemide [Lasix] 40 mg PO BID 09/10/24 09/10/24 History HYDROcodone/APAP 10-325MG [[place] 1 tab PO Q6H PRN 09/10/24 09/10/24 History 10-325] carvediloL [Coreg] 12.5 mg PO ACHS 09/10/24 09/10/24 History Allergies Allergy/AdvReac Type Severity Reaction Status Date / Time allopurinol AdvReac Gout Verified 09/10/24 17:13 atenolol AdvReac Fatigue,Bra Verified 09/10/24 17:13 dycardia doxazosin AdvReac Delerium,Di Verified 09/10/24 17:13 zziness hydralazine AdvReac Unknown Verified 09/10/24 17:13 lisinopril AdvReac Cough Verified 09/10/24 17:13 metoprolol [From Lopressor] AdvReac Chest Pain Verified 09/10/24 17:13 omalizumab [From Xolair] AdvReac urticaria Verified 09/10/24 17:13 Physical Exam Vitals: Vital Signs Temp Pulse Resp BP Pulse Ox 09/11/24 08:53 93 09/11/24 08:41 99 97 09/11/24 08:00 93 20 118/84 95 09/11/24 04:50 83 18 09/11/24 04:44 81 18 09/11/24 04:00 95 09/11/24 02:24 97.5 F L 87 20 118/84 96 09/10/24 22:13 98.4 F 101 H 18 129/78 97 09/10/24 18:28 98 18 131/90 96 09/10/24 12:08 98.5 F 101 H 21 125/73 96 Intake and Output 09/10/24 09/11/24 09/11/24 22:59 06:59 14:59 Output Total 500 1200 600 Balance -500 -1200 -600 Output: Urine 500 1200 600 Results CBC & Chem 7: 09/10/24 13:29 06/05/25 13:29 Labs: Abnormal Lab Results - Last 24 Hours (Table) 09/10/24 09/10/24 Range/Units 13:29 13:29 WBC 1.52 L (4.50-10.00) 10*3/uL RBC 3.90 L (4.40-5.60) 10*6/uL Hgb 10.2 L (13.0-17.0) g/dL Hct 33.9 L (39.6-50.0) % MCH 26.2 L (27.0-32.0) pg MCHC 30.1 L (32.0-37.0) g/dL Plt Count 80 L (140-440) 10*3/uL MPV 13.3 H (9.5-12.2) fL Neutrophils # 1.14 L (1.80-7.70) 10*3/uL Lymphocytes # 0.20 L (0.90-5.00) 10*3/uL Monocytes # 0.11 L (0.20-1.00) 10*3/uL BUN 62 H (9-20) mg/dL Creatinine 2.50 H (0.66-1.25) mg/dL Glucose 108 H (74-99) mg/dL
[2024-09-11 12:22] VITALS: BP 148/105; PULSE 95
== END 2024-09-11 13:23 | disposition home or self-care (01) ==
LOC: EC 12:01 → 3SCARD 15:34
PROVIDERS: ADMIT Hospitalist; ATTEND Hospitalist
DX: I13.0 Hypertensive heart and chronic kidney disease with heart failure and stage 1 through stage 4 chronic kidney disease, or unspecified chronic kidney disease (principal); I50.23 Acute on chronic systolic (congestive) heart failure; I25.5 Ischemic cardiomyopathy; D61.818 Other pancytopenia; I35.0 Nonrheumatic aortic (valve) stenosis; I25.2 Old myocardial infarction; I35.2 Nonrheumatic aortic (valve) stenosis with insufficiency; I48.0 Paroxysmal atrial fibrillation; I70.0 Atherosclerosis of aorta; J44.9 Chronic obstructive pulmonary disease, unspecified; J96.11 Chronic respiratory failure with hypoxia; N18.9 Chronic kidney disease, unspecified; Z79.01 Long term (current) use of anticoagulants; Z79.84 Long term (current) use of oral hypoglycemic drugs; Z79.899 Other long term (current) drug therapy; Z85.05 Personal history of malignant neoplasm of liver; Z85.818 Personal history of malignant neoplasm of other sites of lip, oral cavity, and pharynx; Z85.828 Personal history of other malignant neoplasm of skin; Z87.891 Personal history of nicotine dependence; Z95.0 Presence of cardiac pacemaker; Z79.52 Long term (current) use of systemic steroids; Z79.51 Long term (current) use of inhaled steroids; Z88.8 Allergy status to other drugs, medicaments and biological substances; Z92.3 Personal history of irradiation
CPT/HCPCS: 96376 ×2; 96374 ×2; 99285; 36415; 94640 ×2; 94760; 93005; 83880; 80053; 83605; 83735; 84484; 85025; 85610; 85730; 71046; G0378 ×2; J1938 ×3

== ENCOUNTER 2024-09-13 00:52 | Inpatient (IN) | payer OTHER, MEDICARE ==
--- NOTE | 2024-09-13 01:03 | ED ---
General Adult HPI - General Chief complaint: Shortness of Breath Stated complaint: sebastián Time Seen by Provider: 09/13/24 00:58 Source: EMS Mode of arrival: EMS Limitations: no limitations - History of Present Illness Initial comments: Dictation was produced using [employer] dictation software. please excuse any grammatical, word or spelling errors. Chief Complaint: 74-year-old male presents with dyspnea History of Present Illness: Patient 74-year-old male recently admitted for pulmonary edema presents to the emergency department for worsening dyspnea. Patient brought in by EMS as a priority 1 plan to be tachycardic with A-fib and RVR. Patient [place] any chest pain states that he has productive cough. Denies any fever chills or night sweats. The ROS documented in this emergency department record has been reviewed and confirmed by me. Those systems with pertinent positive or negative responses have been documented in the HPI. All other systems are other negative and/or noncontributory. - Related Data Home Medications Medication Instructions Recorded Confirmed Colchicine 0.6 mg PO DAILY 08/02/16 09/10/24 Tiotropium 2.5 Mcg/Puff [Spiriva 1 puff INHALATION RT-BID 01/14/23 09/10/24 Respimat 2.5 Mcg] traZODone HCL [Desyrel] 50 mg PO HS 01/14/23 09/10/24 Cholecalciferol [Vitamin D3 (25 25 mcg PO DAILY 02/11/23 09/10/24 Mcg = 1000 Iu)] Multivit-Min/FA/Lycopen/Lutein 1 tab PO DAILY 02/11/23 09/10/24 [Centrum Silver Tablet] Albuterol Inhaler [Ventolin Hfa 2 puff INHALATION RT-Q6H PRN 06/30/23 09/10/24 Inhaler] Pantoprazole Sodium [Protonix] 20 mg PO DAILY 06/30/23 09/10/24 Fluticasone Propion/Salmeterol 1 puff INHALATION RT-BID 01/14/24 09/10/24 [Wixela 500-50 Inhub] Ferrous Sulfate [Iron (65 MG 325 mg PO DAILY 02/06/24 09/10/24 Elemental)] Folic Acid 1 mg PO DAILY 02/06/24 09/10/24 Naloxone HCl [Narcan] 4 mg NASAL DIRECTED PRN 02/06/24 09/10/24 predniSONE 5 mg PO DAILY 07/04/24 09/10/24 ALPRAZolam [Xanax] 0.25 mg PO BID PRN 07/25/24 09/10/24 Apixaban [Eliquis] 2.5 mg PO BID 07/25/24 09/10/24 Sennosides-Docusate Sodium 1 tab PO DAILY 07/25/24 09/10/24 [Senokot-S] Furosemide [Lasix] 40 mg PO BID 09/10/24 09/10/24 HYDROcodone/APAP 10-325MG [[place] 1 tab PO Q6H PRN 09/10/24 09/10/24 10-325] carvediloL [Coreg] 12.5 mg PO ACHS 09/10/24 09/10/24 Previous Rx's Medication Instructions Recorded Ipratropium-Albuterol Nebulize 3 ml INHALATION RT-Q4H PRN each 02/07/24 [Duoneb 0.5 mg-3 mg/3 ml Soln] Dapagliflozin Propanediol [Farxiga] 5 mg PO DAILY 10 Days #10 tab 07/27/24 hydrALAZINE HCL [Apresoline] 25 mg PO TID #90 tab 07/27/24 Allergies Allergy/AdvReac Type Severity Reaction Status Date / Time allopurinol AdvReac Gout Verified 09/13/24 00:56 atenolol AdvReac Fatigue,Bra Verified 09/13/24 00:56 dycardia doxazosin AdvReac Delerium,Di Verified 09/13/24 00:56 zziness hydralazine AdvReac Unknown Verified 09/13/24 00:56 lisinopril AdvReac Cough Verified 09/13/24 00:56 metoprolol [From Lopressor] AdvReac Chest Pain Verified 09/13/24 00:56 omalizumab [From Xolair] AdvReac urticaria Verified 09/13/24 00:56 Review of Systems ROS Statement: Those systems with pertinent positive or pertinent negative responses have been documented in the HPI. ROS Other: All systems not noted in ROS Statement are negative. 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 Hospitalized last week for CHF & Pneumonia. Irr. heart rate @ times. liver cancer Last Myocardial Infarction Date:: 2022 History of Any Multi-Drug Resistant Organisms: None Reported Past Surgical History: Back Surgery, Heart Catheterization, Hernia Repair, Orthopedic Surgery, Pacemaker Additional Past Surgical History / Comment(s): liver ablation done at [place] for tx of hepatocellular carcinoma,hemorrhoids ,back surgery, cataract, skin cancer, inguinal hernia, abdominal hernia, left shoulder, right wrist, growth removed vocal cord, PAROTID GLAND REMOVED DUE TO CANCER. Past Anesthesia/Blood Transfusion Reactions: No Reported Reaction Additional Past Anesthesia/Blood Transfusion Reaction / Comment(s): no hx blood transfusion Type of Cardiac Device: Permanent Pacemaker Device Placement Date:: 01/20/24 Past Psychological History: No Psychological Hx Reported Smoking Status: Former smoker Past Alcohol Use History: None Reported Past Drug Use History: None Reported - Past Family History Father Family Medical History: Cancer General Exam - General Exam Comments Initial Comments: PHYSICAL EXAM: General Impression: Alert and oriented x3, dyspneic HEENT: Normocephalic atraumatic, extra-ocular movements intact, pupils equal and reactive to light bilaterally, mucous membranes moist. Cardiovascular: Heart regular rate and rhythm Chest: Diffuse lung crackles Abdomen: abdomen soft, non-tender, non-distended, no organomegaly Musculoskeletal: Pulses present and equal in all extremities, 2+ pitting edema Motor: no focal deficits noted Neurological: CN II-XII grossly intact, no focal motor or sensory deficits noted Skin: Intact with no visualized rashes Psych: Normal affect and mood Limitations: no limitations Course Vital Signs 09/13/24 09/13/24 09/13/24 00:57 01:00 01:07 Temperature 97.4 F L Pulse Rate 128 H 117 H Pulse Rate [ [address] Scientist ] Respiratory 36 H 24 20 Rate Blood Pressure 132/96 112/86 O2 Sat by Pulse 100 87 L Oximetry 09/13/24 02:09 Temperature Pulse Rate 112 H Pulse Rate [ Rd Scientist ] Respiratory 20 Rate Blood Pressure 97/77 O2 Sat by Pulse 92 L Oximetry EKG Findings - EKG Comments: EKG Findings:: My EKG interpretation: Ventricular rate 127, A-fib with RVR, QRS 107, QTc 400. No VA prolongation, no QTC prolongation, no ST or T-wave changes noted. Overall, this EKG is unremarkable Medical Decision Making - Medical Decision Making Was pt. sent in by a medical professional or institution (, PA, INTERIOR DECORATOR PAINTING, urgent care, hospital, or penitentiary...) When possible be specific @ -No Did you speak to anyone other than the patient for history (EMS, parent, family, police, friend...)? What history was obtained from this source @ -No Did you review nursing and triage notes (agree or disagree)? Why? @ -I reviewed and agree with nursing and triage notes Were old charts reviewed (outside hosp., previous admission, EMS record, old EK G, old radiological studies, urgent care reports/EKG's, penitentiary records)? Report findings @ -No old charts were reviewed Differential Diagnosis (chest pain, altered mental status, abdominal pain women, abdominal pain men, vaginal bleeding, musculoskeletal, weakness, fever, dyspnea, syncope, headache, dizziness, GI bleed, back pain, seizure, CVA, palpatations, mental health)? @ -Differential Dyspnea: Coronary syndrome, arrhythmia, tamponade, asthma, COPD, pulmonary embolism, pneumonia, pneumothorax, pulmonary effusion, anaphylaxis, diabetic ketoacidosis, flailed chest, pulmonary contusion, diaphragmatic rupture, anemia, neuromuscular, this is not meant to be an all-inclusive list. EKG interpreted by me (3pts min.). @ -See above X-rays interpreted by me (1pt min.). @ -Chest x-ray shows multilobar pneumonia CT interpreted by me (1pt min.). @ -None done U/S interpreted by me (1pt. min.). @ -None done What testing was considered but not performed or refused? (CT, X-rays, U/S, labs)? Why? @ -None What meds were considered but not given or refused? Why? @ -None Was smoking cessation discussed for >3mins.? @ -No Were there social determinants of health that impacted care today? How? (Homelessness, low income, unemployed, alcoholism, drug addiction, transportation, low edu. Level, literacy, decrease access to med. care, group home, rehab)? @ -No Was there de-escalation of care discussed even if they declined (Discuss DNR or withdrawal of care, Hospice)? DNR status @ -No What co-morbidities impacted this encounter? (DM, HTN, Smoking, COPD, CAD, Cancer, CVA, ARF, Chemo, Hep., AIDS, mental health diagnosis, sleep apnea, morbid obesity)? @ -COPD, heart failure Was patient admitted / discharged? Hospital course, mention meds given and route, prescriptions, significant lab abnormalities, going to OR and other pertinent info. @ -74-year-old male presents with dyspnea. Vital signs upon arrival shows A- fib RVR and dyspneic. Patient 100% on 3 L nasal cannula which is around his home O2 level. Patient has diffuse crackles along with cough productive of sputum. Denies any constitutional symptoms. Laboratory evaluation obtained. No leukocytosis. Metabolic panel shows elevated troponin and increased BNP suggestive of a component of heart failure. X-ray shows pneumonia. Patient has elevated renal function. Patient started antibiotics. Placed on high flow nasal cannula for oxygen support. Suspect issues are multifactorial however primarily pneumonia. Patient be admitted with consultation pulmonology. Case discussed with hospitalist for admission Did you discuss the management of the patient with other professionals (professionals i.e. , PA, INTERIOR DECORATOR PAINTING, lab, RT, psych nurse, forensic social worker, job coach, teacher, transit authority police officer, registered nurse hh case manager)? Give summary @ -No Was critical care preformed (if so, how long)? @ -No Undiagnosed new problem with uncertain prognosis? @ -No Drug Therapy requiring intensive monitoring for toxicity (Heparin, Nitro, Insulin, Cardizem)? @ -No Were any procedures done? @ -No Diagnosis/symptom? Acute, or Chronic, or Acute on Chronic? Uncomplicated (without systemic symptoms) or Complicated (systemic symptoms)? @ -Respiratory failure secondary to pneumonia and heart failure Side effects of treatment? @ -No Exacerbation, Progression, or Severe Exacerbation? @ -No Poses a threat to life or bodily function? How? (Chest pain, [place], [place], pneumonia, PE, COPD, DKA, ARF, appy, cholecystitis, CVA, Diverticulitis, Homicidal, Suicidal, threat to staff... and all critical care pts) @ -yes - Lab Data Result diagrams: 09/13/24 01:02 09/13/24 01:02 Lab Results 09/13/24 09/13/2409/13/25 Range/Units 01:02 01:02 01:02 WBC 8.59 (4.50-10.00) 10*3/uL RBC 4.53 (4.40-5.60) 10*6/uL Hgb 11.9 L (13.0-17.0) g/dL Hct 39.7 (39.6-50.0) % MCV 87.6 (80.0-97.0) fL MCH 26.3 L (27.0-32.0) pg MCHC 30.0 L (32.0-37.0) g/dL Plt Count 142 D (140-440) 10*3/uL MPV 11.5 (9.5-12.2) fL Immature Gran % (Auto) 0.2 % Neutrophils % 85.5 % Lymphocytes % 8.5 % Monocytes % 4.0 % Eosinophils % 1.5 % Basophils % 0.3 % Immature Gran # 0.02 (0.00-0.04) 10*3/uL Neutrophils # 7.34 (1.80-7.70) 10*3/uL Lymphocytes # 0.73 L (0.90-5.00) 10*3/uL Monocytes # 0.34 (0.20-1.00) 10*3/uL Eosinophils # 0.13 (0.04-0.35) 10*3/uL Basophils # 0.03 (0.00-0.10) 10*3/uL PT 13.5 H (10.0-12.5) sec INR 1.3 H (<1.2) APTT 27.7 (22.0-30.0) sec Sodium 138 (137-145) mmol/L Potassium 4.4 (3.5-5.1) mmol/L Chloride 100 (98-107) mmol/L Carbon Dioxide 22 (22-30) mmol/L Anion Gap 16 mmol/L BUN 64 H (9-20) mg/dL Creatinine 2.79 H (0.66-1.25) mg/dL Est GFR (CKD-EPI)AfAm 25 (>60 ml/min/1.73 sqM) Est GFR (CKD-EPI)NonAf 22 (>60 ml/min/1.73 sqM) Glucose 111 H (74-99) mg/dL Plasma Lactic Acid [place] (0.7-2.0) mmol/L Calcium 9.2 (8.4-10.2) mg/dL Magnesium 2.3 (1.6-2.3) mg/dL Total Bilirubin 1.6 H (0.2-1.3) mg/dL AST 37 (17-59) U/L ALT 19 (4-49) U/L Alkaline Phosphatase 75 (38-126) U/L Troponin I (0.000-0.034) ng/mL NT-Pro-B Natriuret Pep 91043 pg/mL Total Protein 7.3 (6.3-8.2) g/dL Albumin 4.2 (3.5-5.0) g/dL Influenza Type A (PCR) (Not Detectd) Influenza Type B (PCR) (Not Detectd) RSV (PCR) (Not Detectd) SARS-CoV-2 (PCR) (Not Detectd) 09/13/24 09/13/24 09/13/24 Range/Units 01:02 01:02 01:02 WBC (4.50-10.00) 10*3/uL RBC (4.40-5.60) 10*6/uL Hgb (13.0-17.0) g/dL Hct (39.6-50.0) % MCV (80.0-97.0) fL MCH (27.0-32.0) pg MCHC (32.0-37.0) g/dL Plt Count (140-440) 10*3/uL MPV (9.5-12.2) fL Immature Gran % (Auto) % Neutrophils % % Lymphocytes % % Monocytes % % Eosinophils % % Basophils % % Immature Gran # (0.00-0.04) 10*3/uL Neutrophils # (1.80-7.70) 10*3/uL Lymphocytes # (0.90-5.00) 10*3/uL Monocytes # (0.20-1.00) 10*3/uL Eosinophils # (0.04-0.35) 10*3/uL Basophils # (0.00-0.10) 10*3/uL PT (10.0-12.5) sec INR (<1.2) APTT (22.0-30.0) sec Sodium (137-145) mmol/L Potassium (3.5-5.1) mmol/L Chloride (98-107) mmol/L Carbon Dioxide (22-30) mmol/L Anion Gap mmol/L BUN (9-20) mg/dL Creatinine (0.66-1.25) mg/dL Est GFR (CKD-EPI)AfAm (>60 ml/min/1.73 sqM) Est GFR (CKD-EPI)NonAf (>60 ml/min/1.73 sqM) Glucose (74-99) mg/dL Plasma Lactic Acid [place] 3.1 H* (0.7-2.0) mmol/L Calcium (8.4-10.2) mg/dL Magnesium (1.6-2.3) mg/dL Total Bilirubin (0.2-1.3) mg/dL AST (17-59) U/L ALT (4-49) U/L Alkaline Phosphatase (38-126) U/L Troponin I 0.037 H* (0.000-0.034) ng/mL NT-Pro-B Natriuret Pep pg/mL Total Protein (6.3-8.2) g/dL Albumin (3.5-5.0) g/dL Influenza Type A (PCR) Not Detected (Not Detectd) Influenza Type B (PCR) Not Detected (Not Detectd) RSV (PCR) Not Detected (Not Detectd) SARS-CoV-2 (PCR) Not Detected (Not Detectd) Disposition Clinical Impression: Pneumonia Disposition: ADMITTED IP TO THIS [facility] Condition: Serious Referrals: Drew Medrano MD [Primary Care Provider] - 1-2 days Decision Time: 02:44
[2024-09-13 01:32] LABS: Basophils # (A) 0.03 10*3/uL (0.00-0.10); Basophils % (A) 0.3 %; Eosinophils # (A) 0.13 10*3/uL (0.04-0.35); Eosinophils % (A) 1.5 %; HCT 39.7 % (39.6-50.0); HGB 11.9 g/dL (13.0-17.0); Lymphocytes # (A) 0.73 10*3/uL (0.90-5.00); Lymphocytes % (A) 8.5 %; MCH 26.3 pg (27.0-32.0); MCV 87.6 fL (80.0-97.0); Mean Platelet Volume 11.5 fL (9.5-12.2); Monocytes # (A) 0.34 10*3/uL (0.20-1.00); Neutrophils # (A) 7.34 10*3/uL (1.80-7.70); Neutrophils % (A) 85.5 %; RBC 4.53 10*6/uL (4.40-5.60); WBC 8.59 10*3/uL (4.50-10.00)
--- NOTE | 2024-09-13 01:35 | XR ---
EXAM: XR Chest, 1 View CLINICAL HISTORY: ITS.REASON XR Reason: dyspnea, cough TECHNIQUE: Frontal view of the chest. COMPARISON: No relevant prior studies available. FINDINGS: Lungs: Dependent airspace consolidations, consistent with multilobar pneumonia. Pleural space: Unremarkable. No pneumothorax. Heart: Cardiomegaly. Mediastinum: Unremarkable. Bones/joints: Small right and moderate left parapneumonic effusions. Tubes, lines and devices: Pacemaker leads. IMPRESSION: 1. Dependent airspace consolidations, consistent with multilobar pneumonia. 2. Small right and moderate left parapneumonic effusions.
[2024-09-13 01:55] LABS: ALT 19 U/L (4-49); AST 37 U/L (17-59); African American GFR (CKD) 25 (>60 ml/min/1.73 sqM); Albumin 4.2 g/dL (3.5-5.0); Alkaline Phosphatase 75 U/L (38-126); Anion Gap 16 mmol/L; Blood Urea Nitrogen 64 mg/dL (9-20); Calcium 9.2 mg/dL (8.4-10.2); Carbon Dioxide 22 mmol/L (22-30); Chloride 100 mmol/L (98-107); Glucose 111 mg/dL (74-99); Magnesium 2.3 mg/dL (1.6-2.3); Non-African American GFR(CKD) 22 (>60 ml/min/1.73 sqM); Potassium 4.4 mmol/L (3.5-5.1); Sodium 138 mmol/L (137-145); Total Bilirubin 1.6 mg/dL (0.2-1.3); Total Protein 7.3 g/dL (6.3-8.2)
[2024-09-13] MEDS: cefTRIAXone IN SWFI 1,000 MG/10 ML SYRINGE IVP STA (01:57)
[2024-09-13 02:03] LABS: NT-Pro-B-Type Natriuretic Pept 26100 pg/mL
[2024-09-13] MEDS: AZITHROMYCIN 500 MG in SODIUM CHLORIDE 0.9% 250 ML IVPB STA (02:07)
[2024-09-13 02:16] LABS: INR 1.3 (<1.2); Partial Thromboplastin Time 27.7 sec (22.0-30.0); Prothrombin Time 13.5 sec (10.0-12.5)
[2024-09-13 02:24] LABS: Influenza A Not Detected (Not Detectd); Influenza B Not Detected (Not Detectd); RSV Not Detected (Not Detectd)
[2024-09-13 02:30] LABS: Platelet Count 142 10*3/uL (140-440)
[2024-09-13] MEDS ORDERED: PNEUMONIA PROTOCOL UTILIZED 1 EACH MISC PO PRN (02:38)
[2024-09-13] MEDS: NALOXONE 0.4 MG/ML 1 ML VIAL IVP STA (03:22)
[2024-09-13] MEDS: NOREPINEPHRINE 4 MG in SODIUM CHLORIDE 0.9% 250 ML IV ONE (03:29)
--- NOTE | 2024-09-13 03:36 | ED ---
Medical Decision Making - Medical Decision Making I was notified at around 3:30 AM that patient's blood pressure began to diminish. Patient was seen and evaluated at the bedside found to have pinpoint pupils given Narcan with very slight improvement. Patient states that he feels dyspneic. Discussed with patient in detail that his condition is worsening. CODE STATUS was discussed patient states he does not want CPR or intubation should he acutely worsen. Patient started on single strength pressors. Case discussed with human resources benefits coordinator for ICU admission and management. - Lab Data Result diagrams: 09/13/24 01:02 09/13/24 01:02 Lab Results 09/13/24 09/13/24 09/13/24 Range/Units 01:02 01:02 01:02 WBC 8.59 (4.50-10.00) 10*3/uL RBC 4.53 (4.40-5.60) 10*6/uL Hgb 11.9 L (13.0-17.0) g/dL Hct 39.7 (39.6-50.0) % MCV 87.6 (80.0-97.0) fL MCH 26.3 L (27.0-32.0) pg MCHC 30.0 L (32.0-37.0) g/dL Plt Count 142 D (140-440) 10*3/uL MPV 11.5 (9.5-12.2) fL Immature Gran % (Auto) 0.2 % Neutrophils % 85.5 % Lymphocytes % 8.5 % Monocytes % 4.0 % Eosinophils % 1.5 % Basophils % 0.3 % Immature Gran # 0.02 (0.00-0.04) 10*3/uL Neutrophils # 7.34 (1.80-7.70) 10*3/uL Lymphocytes # 0.73 L (0.90-5.00) 10*3/uL Monocytes # 0.34 (0.20-1.00) 10*3/uL Eosinophils # 0.13 (0.04-0.35) 10*3/uL Basophils # 0.03 (0.00-0.10) 10*3/uL PT 13.5 H (10.0-12.5) sec INR 1.3 H (<1.2) APTT 27.7 (22.0-30.0) sec Sodium 138 (137-145) mmol/L Potassium 4.4 (3.5-5.1) mmol/L Chloride 100 (98-107) mmol/L Carbon Dioxide 22 (22-30) mmol/L Anion Gap 16 mmol/L BUN 64 H (9-20) mg/dL Creatinine 2.79 H (0.66-1.25) mg/dL Est GFR (CKD-EPI)AfAm 25 (>60 ml/min/1.73 sqM) Est GFR (CKD-EPI)NonAf 22 (>60 ml/min/1.73 sqM) Glucose 111 H (74-99) mg/dL Plasma Lactic Acid [place] (0.7-2.0) mmol/L Calcium 9.2 (8.4-10.2) mg/dL Magnesium 2.3 (1.6-2.3) mg/dL Total Bilirubin 1.6 H (0.2-1.3) mg/dL AST 37 (17-59) U/L ALT 19 (4-49) U/L Alkaline Phosphatase 75 (38-126) U/L Troponin I (0.000-0.034) ng/mL NT-Pro-B Natriuret Pep 57274 pg/mL Total Protein 7.3 (6.3-8.2) g/dL Albumin 4.2 (3.5-5.0) g/dL Influenza Type A (PCR) (Not Detectd) Influenza Type B (PCR) (Not Detectd) RSV (PCR) (Not Detectd) SARS-CoV-2 (PCR) (Not Detectd) 09/13/24 09/13/24 09/13/24 Range/Units 01:02 01:02 01:02 WBC (4.50-10.00) 10*3/uL RBC (4.40-5.60) 10*6/uL Hgb (13.0-17.0) g/dL Hct (39.6-50.0) % MCV (80.0-97.0) fL MCH (27.0-32.0) pg MCHC (32.0-37.0) g/dL Plt Count (140-440) 10*3/uL MPV (9.5-12.2) fL Immature Gran % (Auto) % Neutrophils % % Lymphocytes % % Monocytes % % Eosinophils % % Basophils % % Immature Gran # (0.00-0.04) 10*3/uL Neutrophils # (1.80-7.70) 10*3/uL Lymphocytes # (0.90-5.00) 10*3/uL Monocytes # (0.20-1.00) 10*3/uL Eosinophils # (0.04-0.35) 10*3/uL Basophils # (0.00-0.10) 10*3/uL PT (10.0-12.5) sec INR (<1.2) APTT (22.0-30.0) sec Sodium (137-145) mmol/L Potassium (3.5-5.1) mmol/L Chloride (98-107) mmol/L Carbon Dioxide (22-30) mmol/L Anion Gap mmol/L BUN (9-20) mg/dL Creatinine (0.66-1.25) mg/dL Est GFR (CKD-EPI)AfAm (>60 ml/min/1.73 sqM) Est GFR (CKD-EPI)NonAf (>60 ml/min/1.73 sqM) Glucose (74-99) mg/dL Plasma Lactic Acid Rashel 3.1 H* (0.7-2.0) mmol/L Calcium (8.4-10.2) mg/dL Magnesium (1.6-2.3) mg/dL Total Bilirubin (0.2-1.3) mg/dL AST (17-59) U/L ALT (4-49) U/L Alkaline Phosphatase (38-126) U/L Troponin I 0.037 H* (0.000-0.034) ng/mL NT-Pro-B Natriuret Pep pg/mL Total Protein (6.3-8.2) g/dL Albumin (3.5-5.0) g/dL Influenza Type A (PCR) Not Detected (Not Detectd) Influenza Type B (PCR) Not Detected (Not Detectd) RSV (PCR) Not Detected (Not Detectd) SARS-CoV-2 (PCR) Not Detected (Not Detectd) Disposition Clinical Impression: Pneumonia Disposition: ADMITTED IP TO THIS HOSP Condition: Serious
[2024-09-13] MEDS: ONDANSETRON 4 MG/2 ML VIAL IVP STA (05:10)
[2024-09-13] MEDS: FUROSEMIDE 10 MG/ML 4 ML VIAL IV SCH ×2 (09:29→10:48)
[2024-09-13] MEDS: METOPROLOL TARTRATE 25 MG TAB PO SCH (09:30)
[2024-09-13] MEDS: AMIODARONE 200 MG TAB PO SCH (09:30)
[2024-09-13] MEDS: ASPIRIN 81 MG PO SCH (09:30)
--- NOTE | 2024-09-13 10:20 | P.CRDCN ---
History of Present Illness Consult date: 09/13/24 History of present illness: HISTORY OF PRESENTING ILLNESS: Known to Dr. Post Presented to the hospital because of worsening dyspnea. On admission was A-fib RVR. Chest x-ray also shows possible concerns of right lower lobe infiltrate suggestive of pneumonia and concerns of severe sepsis. He also appears to have mild confusion suggestive of mild metabolic encephalopathy on admission which is multifactorial. Was admitted for CHF exacerbation 2 days ago and was discharged home shortly before this presentation. Discharge medications seems to be hydralazine 25 3 times daily, Coreg 12.5 twice daily, Lasix 40 twice daily, Farxiga 5 mg daily, Eliquis 2.5 mg twice daily Admission Vitals: 111/72, heart rate 113 Admission Labs: Hb 11.9, platelets 142, BUN 64, creatinine 2.7, troponin 0.03, NT-proBNP 26,000. Baseline creatinine around 2.3 Admission EKG: A-fib RVR 127 bpm, repeat atrial fibrillation RVR heart rate 106, incomplete left bundle Imaging: Chest x-ray shows right lower lobe infiltrate suggestive of pneumonia, left moderate pleural effusion. Mild increased interstitial marking. Prior cardiac testing: Echo from 06/2024 shows an EF of 35 to 40%, moderate aortic stenosis mean gradient 24 mmHg, severe LA dilatation REVIEW OF SYSTEMS: 14 point review of system is negative except what is mentioned above in HPI. PHYSICAL EXAMINATION: Neck: Mild carotid bruit, systolic murmur radiating to carotids elevated jugular venous distention. Lungs: Poor inspiratory effort mild crackles audible. Reduced air entry in left lower lung Heart: Irregular pulse, systolic murmur Abdomen: Soft nontender, positive bowel sounds. Extremities: 1+ lower extremity edema Neuro: Awake but slightly confused. Due to neuroexam was not performed. 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 Hold it for now in anticipation of therapeutic left thoracentesis. If no plan, resume Eliquis. Consult pulmonary. Discontinue amiodarone ip. Start amiodarone 200 mg twice daily. Continue until 09/21/2024, thereafter reduce dose Change beta-mt to metoprolol 25 twice daily Lasix 40 IV twice daily. Monitor kidney function electrolytes Farxiga only when patient starts eating food Hold hydralazine because of borderline BP Consider discussing the case with Dr. Post for possible balloon valvuloplasty of aortic valve Esequiel Major MD, FACC, RPVI Thank you for allowing [facility] to participate in this patient's care. Feel free to reach out in case of any followup questions. 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 Hospitalized last week for CHF & Pneumonia. Irr. heart rate @ times. liver cancer Last Myocardial Infarction Date:: 2022 History of Any Multi-Drug Resistant Organisms: None Reported Past Surgical History: Back Surgery, Heart Catheterization, Hernia Repair, Orthopedic Surgery, Pacemaker Additional Past Surgical History / Comment(s): liver ablation done at [facility] for tx of hepatocellular carcinoma,hemorrhoids ,back surgery, cataract, skin cancer, inguinal hernia, abdominal hernia, left shoulder, right wrist, growth removed vocal cord, PAROTID GLAND REMOVED DUE TO CANCER. Past Anesthesia/Blood Transfusion Reactions: No Reported Reaction Additional Past Anesthesia/Blood Transfusion Reaction / Comment(s): no hx blood transfusion Type of Cardiac Device: Permanent Pacemaker Device Placement Date:: 01/20/24 Past Psychological History: No Psychological Hx Reported Smoking Status: Former smoker Past Alcohol Use History: None Reported Past Drug Use History: None Reported - Past Family History Father Family Medical History: Cancer Medications and Allergies Home Medications Medication Instructions Recorded Confirmed Type Colchicine 0.6 mg PO DAILY 08/02/16 09/10/24 History Tiotropium 2.5 Mcg/Puff [Spiriva 1 puff INHALATION RT-BID 01/14/23 09/10/24 History Respimat 2.5 Mcg] traZODone HCL [Desyrel] 50 mg PO HS 01/14/23 09/10/24 History Cholecalciferol [Vitamin D3 (25 25 mcg PO DAILY 02/11/23 09/10/24 History Mcg = 1000 Iu)] Multivit-Min/FA/Lycopen/Lutein 1 tab PO DAILY 02/11/23 09/10/24 History [Centrum Silver Tablet] Albuterol Inhaler [Ventolin Hfa 2 puff INHALATION RT-Q6H PRN 06/30/23 09/10/24 History Inhaler] Pantoprazole Sodium [Protonix] 20 mg PO DAILY 06/30/23 09/10/24 History Fluticasone Propion/Salmeterol 1 puff INHALATION RT-BID 01/14/24 09/10/24 Hi story [[place]ixela 500-50 Inhub] Ferrous Sulfate [Iron (65 MG 325 mg PO DAILY 02/06/24 09/10/24 History Elemental)] Folic Acid 1 mg PO DAILY 02/06/24 09/10/24 History Naloxone HCl [Narcan] 4 mg NASAL DIRECTED PRN 02/06/24 09/10/24 History Ipratropium-Albuterol Nebulize 3 ml INHALATION RT-Q4H PRN each 02/07/24 09/10/24 Rx [Duoneb 0.5 mg-3 mg/3 ml Soln] predniSONE 5 mg PO DAILY 07/04/24 09/10/24 History ALPRAZolam [Xanax] 0.25 mg PO BID PRN 07/25/24 09/10/24 History Apixaban [Eliquis] 2.5 mg PO BID 07/25/24 09/10/24 History Sennosides-Docusate Sodium 1 tab PO DAILY 07/25/24 09/10/24 History [Senokot-S] Dapagliflozin Propanediol [Farxiga] 5 mg PO DAILY 10 Days #10 tab 07/27/24 09/10/24 Rx hydrALAZINE HCL [Apresoline] 25 mg PO TID #90 tab 07/27/24 09/10/24 Rx Furosemide [Lasix] 40 mg PO BID 09/10/24 09/10/24 History HYDROcodone/APAP 10-325MG [[place] 1 tab PO Q6H PRN 09/10/24 09/10/24 History 10-325] carvediloL [Coreg] 12.5 mg PO ACHS 09/10/24 09/10/24 History Allergies Allergy/AdvReac Type Severity Reaction Status Date / Time allopurinol AdvReac Gout Verified 09/13/24 00:56 atenolol AdvReac Fatigue,Bra Verified 09/13/24 00:56 dycardia doxazosin AdvReac Delerium,Di Verified 09/13/24 00:56 zziness hydralazine AdvReac Unknown Verified 09/13/24 00:56 lisinopril AdvReac Cough Verified 09/13/24 00:56 metoprolol [From Lopressor] AdvReac Chest Pain Verified 09/13/24 00:56 omalizumab [From Xolair] AdvReac urticaria Verified 09/13/24 00:56 Physical Exam Vitals: Vital Signs Temp Pulse Pulse Resp BP Pulse Ox 09/13/24 08:30 92 L 09/13/24 08:20 92 L 09/13/24 07:00 97.8 F 110 H 27 H 85/75 96 09/13/24 06:22 98.4 F 112 H 21 110/79 09/13/24 06:05 113 H 24 111/72 09/13/24 05:50 102 H 30 H 88/76 09/13/24 05:27 112 H 28 H 97/79 09/13/24 05:07 120 H 30 H 101/74 09/13/24 04:58 112 H 30 H 112/77 09/13/24 04:36 108 H 27 H 104/73 09/13/24 04:25 97.8 F 111 H 25 H 75/57 09/13/24 03:51 114 H 34 H 89/64 09/13/24 03:45 109 H 30 H 110/69 09/13/24 03:41 111 H 31 H 98/82 09/13/24 03:37 118 H 30 H 09/13/24 03:36 116 H 32 H 76/66 99 09/13/24 03:22 20 09/13/24 03:15 102 H 20 77/59 99 09/13/24 02:09 112 H 20 97/77 92 L 09/13/24 01:07 117 H 20 112/86 87 L 09/13/24 01:00 128 H 24 09/13/24 00:57 97.4 F L 128 H 36 H 132/96 100 Intake and Output 09/12/24 09/13/24 09/13/24 22:59 06:59 14:59 Intake Total 31.599 Balance 31.599 Intake: Intake, IV Titration 31.599 Amount Norepinephrine 4 mg In 31.599 Sodium Chloride 0.9% 250 ml @ 0.03 MCG/KG/MIN 9. 591 mls/hr IV .Q24H ONE Rx#:[id number] Other: Weight 83.915 kg Results 09/13/24 01:02 09/13/24 01:02 Cardiac Enzymes 09/13/24 09/13/24 Range/Units 01:02 01:02 AST 37 (17-59) U/L Troponin I 0.037 H* (0.000-0.034) ng/mL Coagulation 09/13/24 Range/Units 01:02 PT 13.5 H (10.0-12.5) sec APTT 27.7 (22.0-30.0) sec CBC 09/13/24 Range/Units 01:02 WBC 8.59 (4.50-10.00) 10*3/uL RBC 4.53 (4.40-5.60) 10*6/uL Hgb 11.9 L (13.0-17.0) g/dL Hct 39.7 (39.6-50.0) % Plt Count 142 D (140-440) 10*3/uL Comprehensive Metabolic Panel 09/13/24 Range/Units 01:02 Sodium 138 (137-145) mmol/L Potassium 4.4 (3.5-5.1) mmol/L Chloride 100 (98-107) mmol/L Carbon Dioxide 22 (22-30) mmol/L BUN 64 H (9-20) mg/dL Creatinine 2.79 H (0.66-1.25) mg/dL Glucose 111 H (74-99) mg/dL Calcium 9.2 (8.4-10.2) mg/dL AST 37 (17-59) U/L ALT 19 (4-49) U/L Alkaline Phosphatase 75 (38-126) U/L Total Protein 7.3 (6.3-8.2) g/dL Albumin 4.2 (3.5-5.0) g/dL Current Medications Generic Name Dose Route Start Last Admin Trade Name Freq PRN Reason Stop Dose Admin Alprazolam 0.25 mg 09/13/24 09:49 Alprazolam 0.25 Mg Tab PO BID PRN Anxiety Amiodarone HCl 200 mg 09/13/24 09:00 09/13/24 09:30 Amiodarone 200 Mg Tab PO 200 mg BID RAFY Administration Aspirin 81 mg 09/13/24 09:00 09/13/24 09:30 Aspirin 81 Mg PO 81 mg DAILY RAFY Administration Atorvastatin Calcium 40 mg 09/13/24 21:00 Atorvastatin 40 Mg Tab PO HS RAFY Azithromycin 500 mg/ Sodium 250 mls @ 250 mls/hr 09/14/24 10:00 Chloride IVPB 09/15/24 10:59 DAILY@1000 RAFY Protocol Norepinephrine Bitartrate 4 mg 254 mls @ 9.591 mls/hr 09/13/24 03:30 09/13/24 05:12 / Sodium Chloride IV 09/14/24 03:29 0.05 mcg/kg/min .Q24H ONE 15.986 mls/hr Titration Protocol 0.03 MCG/KG/MIN Piperacillin Sod/Tazobactam 100 mls @ 25 mls/hr 09/13/24 10:00 Sod 3.375 gm/ Sodium Chloride IVPB Q8HR RAFY Protocol Metoprolol Tartrate 25 mg 09/13/24 09:00 09/13/24 09:30 Metoprolol Tartrate 25 Mg Tab PO 25 mg BID RAFY Administration Miscellaneous Information 1 each 09/13/24 02:38 Pneumonia Protocol Utilized 1 Each Misc PO ONCE PRN Per Protocol Intake and Output 09/12/24 09/13/24 09/13/24 22:59 06:59 14:59 Intake Total 31.599 Balance 31.599 Intake: Intake, IV Titration 31.599 Amount Norepinephrine 4 mg In 31.599 Sodium Chloride 0.9% 250 ml @ 0.03 MCG/KG/MIN 9. 591 mls/hr IV .Q24H ONE Rx#:[id number] Other: Weight 83.915 kg 09/13/24 01:02 09/13/24 01:02
[2024-09-13] MEDS ORDERED: APIXABAN 2.5 MG TABLET PO SCH (10:30)
--- NOTE | 2024-09-13 11:04 | CT ---
EXAMINATION TYPE: CT chest wo con DATE OF EXAM: 09/13/2024 10:18 AM COMPARISON: 07/06/2024 CLINICAL INDICATION: Male, 74 years old with history of acute hypoxia, Acute Hypoxia TECHNIQUE: Axial images were obtained at 5 mm thick sections. Reconstructed images are reviewed on ivWatch computer in the coronal plane. Contrast used: mL of , (none if empty) Oral contrast used: (none if empty) CT DLP: 476.9 mGycm, Automated exposure control for dose reduction was used. FINDINGS: Portion of the thyroid visualized is normal. Small bilateral pleural effusions are present. Bilateral lung base consolidations are present. Right middle lobe consolidation is present. Correlate for pneumonia. There is mild infiltrate in the anteri or left apex. No enlarged mediastinal or hilar adenopathy is evident. There is tortuosity of the aorta. There is some prominence of the descending thoracic aorta measuring 4.6 cm in transverse dimension. The university teacher ior aortic arch measures 3.8 cm in transverse dimension. The ascending aorta diameter at the level of the main pulmonary artery is 4.0 cm. The main pulmonary artery diameter at the bifurcation is 3.8 c m. Mild coronary artery calcifications present. Cardiomegaly is present. Evaluation for pulmonary embol ism cannot be performed without intravenous contrast. Limited CT sections are obtained through the upper abdomen. Splenomegaly appears to be present. IMPRESSION:. 1. Cardiomegaly. 2. Splenomegaly. 3. Small bilateral pleural effusions. 4. Bibasilar consolidations within additional consolidation in the right middle lobe. Correlate for p neumonia. [facility], , 09/13/2024 11:02 AM
[2024-09-13] MEDS: PIPERACILLIN-TAZOBACTAM 3.375 GM in SODIUM CHLORIDE 0.9% 100 ML IVPB SCH (11:10)
[2024-09-13 11:45] LABS: Glucose,Whole Blood 86 mg/dL (70-110)
[2024-09-13] MEDS: ALPRAZolam 0.25 MG TAB PO PRN (12:04)
--- NOTE | 2024-09-13 12:43 | P.CNPUL ---
History of Present Illness Consult date: 09/13/24 Reason for consult: dyspnea History of present illness: This is a 74-year-old male patient with multiple medical problems and coming into the department having chest discomfort, cough, congestion and worsening shortness of breath. He is chronically debilitated and is willing more weak than usual. Denies having any fever. No hemoptysis. No pleurisy. Noted, the patient was hospitalized few days back and the patient was discharged home and his condition decompensated over the past 24 hours. The patient had a follow-up chest x-ray in the emergency department that showed development of new bilateral lower lobe pulmonary filtrates consistent with pneumonia. The patient was hypoxic and his oxygen requirements progressively got worse and is currently on 15 L of oxygen by nasal cannula with a pulse ox of 93%. He typically uses oxygen between 2 and 3 L. He remains in chronic atrial fibrillation. The white cell count is 8.9 with a hemoglobin 11.9 and a platelet count of 142. BUN is 64 with a creatinine of 2.7 and sodium levels at 138. Potassium level is at 4.4. Initial lactic acid level was at 3.1 down to 1.6. Procalcitonin level is pending. proBNP level is 26,100. Troponins at 0.03. Rest of the liver function tests are normal. The viral screen is negative. Based on his clinical presentation, I ordered a noncontrast CAT scan of the chest and the CAT scan showed cardiomegaly, splenomegaly, small bilateral pleural effusion, bibasilar pulmonary consolidation in addition to consolidation of the right middle lobe and the findings are quite suspicious for an underlying pneumonia. The patient accordingly was started on Zosyn and is also on Zithromax. On a separate note, the patient was noted to be hypotensive. He was started on low-dose norepinephrine for hemodynamic support. The patient is currently on norep inephrine running at 0.05 mcg/kg/min. Awake and alert and communicating His comorbidities are multiple and the patient is known to have COPD, chronic stage III kidney disease, congestion heart failure with a ejection fraction of 35 to 40% and the patient has moderate degree of aortic stenosis and mild pulmonary hypertension, chronic A-fib, hypertension, history of pancytopenia as the patient has previous history of hepatitis C and history of hepatocellular carcinoma and he also has previous history of coronary artery disease with previous [place] and hypertension and the patient has a permanent pacemaker in place. Review of Systems Constitutional: Reports chronic pain, Reports fatigue, Reports lethargy, Reports poor appetite, Reports weakness Eyes: denies as per HPI, denies blurred vision, denies bulging eye, denies decreased vision, denies diplopia, denies discharge, denies dry eye, denies irritation, denies itching, denies pain, denies photophobia, denies loss of peripheral vision, denies loss of vision, denies tunnel vision/blind spots Ears: deny: decreased hearing, ear discharge, earache, tinnitus Ears, nose, mouth and throat: Reports as per HPI Breasts: absent: as per HPI, gynecomastia Cardiovascular: Reports decreased exercise tolerance, Reports dyspnea on exertion, Reports leg edema, Reports shortness of breath Respiratory: Reports cough, Reports cough with sputum, Reports dyspnea, Reports home oxygen, Reports wheezing Gastrointestinal: Reports as per HPI Genitourinary: Reports as per HPI Musculoskeletal: Reports as per HPI Musculoskeletal: absent: ankle pain, ankle stiffness, ankle swelling, as per HPI, elbow pain, elbow stiffness, elbow swelling, foot pain, foot stiffness, fo ot swelling, hand pain, hand stiffness, hand swelling, hip pain, hip stiffness, hip swelling, knee pain, knee stiffness, knee swelling, shoulder pain, shoulder stiffness, shoulder swelling, wrist pain, wrist stiffness, wrist swelling Integumentary: Reports as per HPI Neurological: Reports as per HPI, Reports weakness Psychiatric: Reports as per HPI Endocrine: Reports as per HPI, Reports fatigue Hematologic/Lymphatic: Reports as per HPI Allergic/Immunologic: Reports as per HPI Past Medical History Past Medical History: Cancer, Chest Pain / Angina, Heart Failure, COPD, Hypertension, Liver Disease, Myocardial Infarction ([place]), Musculoskeletal Disorder, Pneumonia Additional Past Medical History / Comment(s): HX OF HEPATITIS C , hepatocellular carcinoma, LOW IRON , BACK PAIN, HERNIATED DISCS, SKIN CANCER, 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 Hospitalized last week for CHF & Pneumonia. Irr. heart rate @ times. liver cancer Last Myocardial Infarction Date:: 2022 History of Any Multi-Drug Resistant Organisms: None Reported Past Surgical History: Back Surgery, Heart Catheterization, Hernia Repair, Orthopedic Surgery, Pacemaker Additional Past Surgical History / Comment(s): liver ablation done at [facility] for tx of hepatocellular carcinoma,hemorrhoids ,back surgery, cataract, skin cancer, inguinal hernia, abdominal hernia, left shoulder, right wrist, growth removed vocal cord, PAROTID GLAND REMOVED DUE TO CANCER. Past Anesthesia/Blood Transfusion Reactions: No Reported Reaction Additional Past Anesthesia/Blood Transfusion Reaction / Comment(s): no hx blood transfusion Type of Cardiac Device: Permanent Pacemaker Device Placement Date:: 01/20/24 Past Psychological History: No Psychological Hx Reported Smoking Status: Former smoker Past Alcohol Use History: None Reported Past Drug Use History: None Reported - Past Family History Father Family Medical History: Cancer Medications and Allergies Home Medications Medication Instructions Recorded Confirmed Type Colchicine 0.6 mg PO DAILY 08/02/16 09/10/24 History Tiotropium 2.5 Mcg/Puff [Spiriva 1 puff INHALATION RT-BID 01/14/23 09/10/24 History Respimat 2.5 Mcg] traZODone HCL [Desyrel] 50 mg PO HS 01/14/23 09/10/24 History Cholecalciferol [Vitamin D3 (25 25 mcg PO DAILY 02/11/23 09/10/24 History Mcg = 1000 Iu)] Multivit-Min/FA/Lycopen/Lutein 1 tab PO DAILY 02/11/23 09/10/24 History [Centrum Silver Tablet] Albuterol Inhaler [Ventolin Hfa 2 puff INHALATION RT-Q6H PRN 06/30/23 09/10/24 History Inhaler] Pantoprazole Sodium [Protonix] 20 mg PO DAILY 06/30/23 09/10/24 History Fluticasone Propion/Salmeterol 1 puff INHALATION RT-BID 01/14/24 09/10/24 History [Wixela 500-50 Inhub] Ferrous Sulfate [Iron (65 MG 325 mg PO DAILY 02/06/24 09/10/24 History Elemental)] Folic Acid 1 mg PO DAILY 02/06/24 09/10/24 History Naloxone HCl [Narcan] 4 mg NASAL DIRECTED PRN 02/06/24 09/10/24 History Ipratropium-Albuterol Nebulize 3 ml INHALATION RT-Q4H PRN each 02/07/24 09/10/24 Rx [Duoneb 0.5 mg-3 mg/3 ml Soln] predniSONE 5 mg PO DAILY 07/04/24 09/10/24 History ALPRAZolam [Xanax] 0.25 mg PO BID PRN 07/25/24 09/10/24 History Apixaban [Eliquis] 2.5 mg PO BID 07/25/24 09/10/24 History Sennosides-Docusate Sodium 1 tab PO DAILY 07/25/24 09/10/24 History [Senokot-S] Dapagliflozin Propanediol [Farxiga] 5 mg PO DAILY 10 Days #10 tab 07/27/24 09/10/24 Rx hydrALAZINE HCL [Apresoline] 25 mg PO TID #90 tab 07/27/24 09/10/24 Rx Furosemide [Lasix] 40 mg PO BID 09/10/24 09/10/24 History HYDROcodone/APAP 10-325MG [Bristow 1 tab PO Q6H PRN 09/10/24 09/10/24 History 10-325] carvediloL [Coreg] 12.5 mg PO ACHS 09/10/24 09/10/24 History Allergies Allergy/AdvReac Type Severity Reaction Status Date / Time allopurinol AdvReac Gout Verified 09/13/24 00:56 atenolol AdvReac Fatigue,Bra Verified 09/13/24 00:56 dycardia doxazosin AdvReac Delerium,Di Verified 09/13/24 00:56 zziness hydralazine AdvReac Unknown Verified 09/13/24 00:56 lisinopril AdvReac Cough Verified 09/13/24 00:56 metoprolol [From Lopressor] AdvReac Chest Pain Verified 09/13/24 00:56 omalizumab [From Xolair] AdvReac urticaria Verified 09/13/24 00:56 Physical Exam Vitals: Vital Signs Temp Pulse Pulse Resp BP Pulse Ox 09/13/24 08:30 92 L 09/13/24 08:20 92 L 09/13/24 07:00 97.8 F 110 H 27 H 85/75 96 09/13/24 06:22 98.4 F 112 H 21 110/79 09/13/24 06:05 113 H 24 111/72 09/13/24 05:50 102 H 30 H 88/76 09/13/24 05:27 112 H 28 H 97/79 09/13/24 05:07 120 H 30 H 101/74 09/13/24 04:58 112 H 30 H 112/77 09/13/24 04:36 108 H 27 H 104/73 09/13/24 04:25 97.8 F 111 H 25 H 75/57 09/13/24 03:51 114 H 34 H 89/64 09/13/24 03:45 109 H 30 H 110/69 09/13/24 03:41 111 H 31 H 98/82 09/13/24 03:37 118 H 30 H 09/13/24 03:36 116 H 32 H 76/66 99 09/13/24 03:22 20 09/13/24 03:15 102 H 20 77/59 99 09/13/24 02:09 112 H 20 97/77 92 L 09/13/24 01:07 117 H 20 112/86 87 L 09/13/24 01:00 128 H 24 09/13/24 00:57 97.4 F L 128 H 36 H 132/96 100 Intake and Output 09/12/24 09/13/24 09/13/24 22:59 06:59 14:59 Intake Total 31.599 Balance 31.599 Intake: Intake, IV Titration 31.599 Amount Norepinephrine 4 mg In 31.599 Sodium Chloride 0.9% 250 ml @ 0.03 MCG/KG/MIN 9. 591 mls/hr IV .Q24H ONE Rx#:[id number] Other: Weight 83.915 kg The patient appeared appears ill looking, currently on 15 L of oxygen by nasal cannula, mild degree of respiratory distress even at rest. Not using accessory muscles of breathing. Head exam is unremarkable. No scleral icterus or corneal arcus noted. Neck is without jugular venous distension, thyromegaly, or carotid bruits. Fitch tid upstrokes are brisk bilaterally. Lungs are diminished and the patient has scattered rhonchi, crackles lung base bilaterally and scattered expiratory wheeze Cardiac exam reveals the PMI to be normally sized and situated. Rhythm is r irregular consistent with atrial fibrillation. First and second heart sounds normal. There is also systolic ejection murmur grade 3/6 heard over the apex and left lateral sternal border, rubs or gallops. Abdominal exam reveals normal bowel sounds, no masses, no organomegaly and no aortic enlargement. Extremities are showing trace edema and both femoral and pedal pulses are normal. Examination of the skin revealed no evidence of significant rashes, suspicious appearing nevi or other concerning lesions. Neurologically, the patient is awake and alert and the patient does not have any focal neurological deficit. Cranial nerves are essentially intact. Results - Laboratory Findings CBC and BMP: 09/13/24 01:02 09/13/24 01:02 PT/INR, D-dimer PT 13.5 sec (10.0-12.5) H 09/13/24 01:02 INR 1.3 (<1.2) H 09/13/24 01:02 Abnormal lab findings: Abnormal Labs 09/13/24 09/13/24 09/13/24 01:02 01:02 01:02 Hgb 11.9 L MCH 26.3 L MCHC 30.0 L Lymphocytes # 0.73 L PT 13.5 H INR 1.3 H BUN 64 H Creatinine 2.79 H Glucose 111 H Plasma Lactic Acid Rashel Total Bilirubin 1.6 H Troponin I 09/13/24 09/13/24 01:02 01:02 Hgb MCH MCHC Lymphocytes # PT INR BUN Creatinine Glucose Plasma Lactic Acid Rashel 3.1 H* Total Bilirubin Troponin I 0.037 H* - Diagnostic Findings Chest x-ray: image reviewed CT scan - chest: image reviewed Assessment and Plan Plan: Acute bilateral lower lobe pneumonia with extensive consolidation of the right lung base. Hospital-acquired pneumonia/hospital-acquired pathogens cannot be completely ruled out. Acute on chronic hypoxic respiratory failure currently on 15 L of oxygen by nasal cannula Acute leukocytosis. The white cell count of 8 is elevated as the patient has chronic leukopenia Acute hypotension, rule out underlying sepsis and the patient is currently on low-dose norepinephrine. Acute on top of chronic shortness of breath, multifactorial. The patient has bilateral pneumonia and COPD and has chronic hypoxic respiratory failure. In addition, the patient has CHF and chronic atrial fibrillation. Chronic systolic heart failure. Previous echocardiogram showed impaired LV function with an ejection fraction of 35 to 40%, with moderate degree of aortic valve stenosis. He also has mild aortic dilatation at the level of the root measuring 41 mm in size. He has moderate RV dilatation, mild pulmonary hypertension. Acute hypoxic respiratory failure, recovered and the patient is currently on 2 L of oxygen by nasal cannula Moderately severe aortic stenosis Chronic atrial fibrillation, controlled rate, maintained on anticoagulation with Eliquis History of moderate COPD with an FEV1 that is 59% of predicted. chronic stage III kidney disease History of implantation of permanent pacemaker. History of hypertension. Myocardial infarction. History of hepatitis C. 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 Hepatocellular carcinoma. History of multiple medical problems and comorbidities. Plan Admit the patient to the intensive care unit Cover the patient with a combination of Zosyn and Zithromax. Obtain sputum Gram stain and culture if possible Blood cultures Norepinephrine to maintain mean arterial pressure above 60. Continue anticoagulation with Eliquis Continue amiodarone 200 mg p.o. twice daily and resume beta-blockers if the blood pressure tolerates. Start the patient on IV Solu-Medrol 40 mg every 8 hours DuoNeb nebulizer treatments [id number] Monitor renal function Condition is critical and will continue to follow make further recommendations based on progress. Time with Patient: Greater than 30
[2024-09-13] MEDS: methylPREDNISolone SOD SUCCI 40 MG/ML 1 ML VIAL IV SCH (14:08)
[2024-09-13] MEDS: APIXABAN 2.5 MG TABLET PO SCH (14:08)
[2024-09-13] MEDS: HYDROcodone/APAP 10-325MG 1 EACH TAB PO PRN (14:52)
[2024-09-13] MEDS ORDERED: Phosphorus Replacement Protoco 1 EACH MISC MISCELLANE PRN (15:17)
[2024-09-13] MEDS ORDERED: Magnesium Replacement Protocol 1 EACH MISC MISCELLANE PRN (15:17)
[2024-09-13] MEDS ORDERED: Potassium Replacement Protocol 1 EACH MISC MISCELLANE PRN (15:17)
--- NOTE | 2024-09-13 15:28 | P.HPIM ---
History of Present Illness H&P Date: 09/13/24 Chief Complaint: Chest discomfort/shortness of breath 74-year-old male, history of COPD, CAD/CHF, aortic stenosis, atrial fibrillation, hypertension, CKD, presents to ED with complaint chest discomfort and worsening shortness of breath. He is chronically debilitated and is willing more weak than usual; patient was hospitalized few days back and the patient was discharged home and his condition decompensated over the past 24 hours. The patient was hypoxic and his oxygen requirements progressively got worse and is currently on 15 L of oxygen by nasal cannula with a pulse ox of 93%. He typically uses oxygen between 2 and 3 L. Chest x-ray in the emergency department that showed development of new bilateral lower lobe pulmonary filtrates consistent with pneumonia. - The white cell count is 8.9 with a hemoglobin 11.9 and a platelet count of 142. BUN is 64 with a creatinine of 2.7 and sodium levels at 138. Potassium level is at 4.4. Initial lactic acid level was at 3.1 down to 1.6. Procalcitonin level is pending. proBNP level is 26,100. Troponins at 0.03. Rest of the liver function tests are normal. The viral screen is negative. -CAT scan showed cardiomegaly, splenomegaly, small bilateral pleural effusion, bibasilar pulmonary consolidation in addition to consolidation of the right middle lobe and the findings are quite suspicious for an underlying pneumonia. The patient was started on Zosyn and is also on Zithromax per pulmonary recommendation. While in ED, the patient was noted to be hypotensive. He was started on low-dose norepinephrine for hemodynamic support. The patient is currently on norepinephrine running at 0.05 mcg/kg/min. Awake and alert and communicating Review of Systems REVIEW OF SYSTEMS: CONSTITUTIONAL: No fever, no malaise, no fatigue. HEENT: No recent visual problems or hearing problems. Denied any sore throat. CARDIOVASCULAR: No chest pain, orthopnea, PND, no palpitations, no syncope. PULMONARY: No shortness of breath, no cough, no hemoptysis. GASTROINTESTINAL: No diarrhea, no nausea, no vomiting, no abdominal pain. NEUROLOGICAL: No headaches, no weakness, no numbness. HEMATOLOGICAL: Denies any bleeding or petechiae. GENITOURINARY: Denies any burning micturition, frequency, or urgency. MUSCULOSKELETAL/RHEUMATOLOGICAL: Denies any joint pain, swelling, or any muscle pain. ENDOCRINE: Denies any polyuria or polydipsia. The rest of the 14-point review of systems is negative. 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 Hospitalized last week for CHF & Pneumonia. Irr. heart rate @ times. liver cancer Last Myocardial Infarction Date:: 2022 History of Any Multi-Drug Resistant Organisms: None Reported Past Surgical History: Back Surgery, Heart Catheterization, Hernia Repair, Orthopedic Surgery, Pacemaker Additional Past Surgical History / Comment(s): liver ablation done at [facility] for tx of hepatocellular carcinoma,hemorrhoids ,back surgery, cataract, skin cancer, inguinal hernia, abdominal hernia, left shoulder, right wrist, growth removed vocal cord, PAROTID GLAND REMOVED DUE TO CANCER. Past Anesthesia/Blood Transfusion Reactions: No Reported Reaction Additional Past Anesthesia/Blood Transfusion Reaction / Comment(s): no hx blood transfusion Type of Cardiac Device: Permanent Pacemaker Device Placement Date:: 01/20/24 Past Psychological History: No Psychological Hx Reported Smoking Status: Former smoker Past Alcohol Use History: None Reported Past Drug Use History: None Reported - Past Family History Father Family Medical History: Cancer Medications and Allergies Home Medications Medication Instructions Recorded Confirmed Type Colchicine 0.6 mg PO DAILY 08/02/16 09/13/24 History Tiotropium 2.5 Mcg/Puff [Spiriva 1 puff INHALATION RT-BID 01/14/23 09/13/24 History Respimat 2.5 Mcg] traZODone HCL [Desyrel] 50 mg PO HS 01/14/23 09/13/24 History Cholecalciferol [Vitamin D3 (25 25 mcg PO DAILY 02/11/23 09/13/24 History Mcg = 1000 Iu)] Multivit-Min/FA/Lycopen/Lutein 1 tab PO DAILY 02/11/23 09/13/24 History [Centrum Silver Tablet] Albuterol Inhaler [Ventolin Hfa 2 puff INHALATION RT-Q6H PRN 06/30/23 09/13/24 History Inhaler] Pantoprazole Sodium [Protonix] 20 mg PO DAILY 06/30/23 09/13/24 History Fluticasone Propion/Salmeterol 1 puff INHALATION RT-BID 01/14/24 09/13/24 History [Wixela 500-50 Inhub] Ferrous Sulfate [Iron (65 MG 325 mg PO DAILY 02/06/24 09/13/24 History Elemental)] Folic Acid 1 mg PO DAILY 02/06/24 09/13/24 History Naloxone HCl [Narcan] 4 mg NASAL DIRECTED PRN 02/06/24 09/13/24 History Ipratropium-Albuterol Nebulize 3 ml INHALATION RT-Q4H PRN each 02/07/24 09/13/24 Rx [Duoneb 0.5 mg-3 mg/3 ml Soln] predniSONE 5 mg PO DAILY 07/04/24 09/13/24 History ALPRAZolam [Xanax] 0.25 mg PO BID PRN 07/25/24 09/13/24 History Apixaban [Eliquis] 2.5 mg PO BID 07/25/24 09/13/24 History Sennosides-Docusate Sodium 1 tab PO DAILY 07/25/24 09/13/24 History [Senokot-S] Dapagliflozin Propanediol [Farxiga] 5 mg PO DAILY 10 Days #10 tab 07/27/2409/13 Rx hydrALAZINE HCL [Apresoline] 25 mg PO TID #90 tab 07/27/24 09/13/24 Rx Furosemide [Lasix] 40 mg PO BID 09/10/24 09/13/24 History HYDROcodone/APAP 10-325MG [[place] 1 tab PO Q6H PRN 09/10/24 09/13/24 History 10-325] carvediloL [Coreg] 12.5 mg PO ACHS 09/10/24 09/13/24 History Allergies Allergy/AdvReac Type Severity Reaction Status Date / Time allopurinol AdvReac Gout Verified 09/13/24 14:13 atenolol AdvReac Fatigue,Bra Verified 09/13/24 14:13 dycardia doxazosin AdvReac Delerium,Di Verified 09/13/24 14:13 zziness hydralazine AdvReac Unknown Verified 09/13/24 14:13 lisinopril AdvReac Cough Verified 09/13/24 14:13 metoprolol [From Lopressor] AdvReac Chest Pain Verified 09/13/24 14:13 omalizumab [From Xolair] AdvReac urticaria Verified 09/13/24 14:13 Physical Exam Vitals: Vital Signs Temp Pulse Pulse Resp BP Pulse Ox 09/13/24 10:15 26 H 104/91 93 L 09/13/24 09:40 98.4 F 104 H 22 101/82 92 L 09/13/24 09:00 100 26 H 97/64 92 L 09/13/24 08:30 92 L 09/13/24 08:20 92 L 09/13/24 08:00 98 22 104/66 99 09/13/24 07:00 97.8 F 110 H 27 H 85/75 96 09/13/24 06:22 98.4 F 112 H 21 110/79 09/13/24 06:05 113 H 24 111/72 09/13/24 05:50 102 H 30 H 88/76 09/13/24 05:27 112 H 28 H 97/79 09/13/24 05:07 120 H 30 H 101/74 09/13/24 04:58 112 H 30 H 112/77 09/13/24 04:36 108 H 27 H 104/73 09/13/24 04:25 97.8 F 111 H 25 H 75/57 09/13/24 03:51 114 H 34 H 89/64 09/13/24 03:45 109 H 30 H 110/69 09/13/24 03:41 111 H 31 H 98/82 09/13/24 03:37 118 H 30 H 09/13/24 03:36 116 H 32 H 76/66 99 09/13/24 03:22 20 09/13/24 03:15 102 H 20 77/59 99 09/13/24 02:09 112 H 20 97/77 92 L 09/13/24 01:07 117 H 20 112/86 87 L 09/13/24 01:00 128 H 24 09/13/24 00:57 97.4 F L 128 H 36 H 132/96 100 Intake and Output 09/12/24 09/13/24 09/13/24 22:59 06:59 14:59 Intake Total 31.599 Balance 31.599 Intake: Intake, IV Titration 31.599 Amount Norepinephrine 4 mg In 31.599 Sodium Chloride 0.9% 250 ml @ 0.03 MCG/KG/MIN 9. 591 mls/hr IV .Q24H [facility] Rx#:[id number] Other: Weight 83.915 kg The patient appeared appears ill looking, currently on 15 L of oxygen by nasal cannula, mild degree of respiratory distress even at rest. Not using accessory muscles of breathing. Head exam is unremarkable. No scleral icterus or corneal arcus noted. Neck is without jugular venous distension, thyromegaly, or carotid bruits. Carotid upstrokes are brisk bilaterally. Lungs are diminished and the patient has scattered rhonchi, crackles lung base bilaterally and scattered expiratory wheeze Cardiac exam reveals the PMI to be normally sized and situated. Rhythm is r i rregular consistent with atrial fibrillation. First and second heart sounds normal. There is also systolic ejection murmur grade 3/6 heard over the apex and left lateral sternal border, rubs or gallops. Abdominal exam reveals normal bowel sounds, no masses, no organomegaly and no aortic enlargement. Extremities are showing trace edema and both femoral and pedal pulses are normal. Examination of the skin revealed no evidence of significant rashes, suspicious appearing nevi or other concerning lesions. Neurologically, the patient is awake and alert and the patient does not have any focal neurological deficit. Cranial nerves are essentially intact. Results CBC & Chem 7: 09/13/24 01:09/13/24 01:02 Labs: Abnormal Lab Results - Last 24 Hours (Table) 09/13/24 09/13/24 09/13/24 Range/Units 01:02 01:02 01:02 Hgb 11.9 L (13.0-17.0) g/dL MCH 26.3 L (27.0-32.0) pg MCHC 30.0 L (32.0-37.0) g/dL Lymphocytes # 0.73 L (0.90-5.00) 10*3/uL PT 13.5 H (10.0-12.5) sec INR 1.3 H (<1.2) BUN 64 H (9-20) mg/dL Creatinine 2.79 H (0.66-1.25) mg/dL Glucose 111 H (74-99) mg/dL Plasma Lactic Acid Rashel (0.7-2.0) mmol/L Total Bilirubin 1.6 H (0.2-1.3) mg/dL Troponin I (0.000-0.034) ng/mL 09/13/24 09/13/24 Range/Units 01:02 01:02 Hgb (13.0-17.0) g/dL MCH (27.0-32.0) pg MCHC (32.0-37.0) g/dL Lymphocytes # (0.90-5.00) 10*3/uL PT (10.0-12.5) sec INR (<1.2) BUN (9-20) mg/dL Creatinine (0.66-1.25) mg/dL Glucose (74-99) mg/dL Plasma Lactic Acid Rashel 3.1 H* (0.7-2.0) mmol/L Total Bilirubin (0.2-1.3) mg/dL Troponin I 0.037 H* (0.000-0.034) ng/mL Assessment and Plan Assessment: 1. Acute bilateral lower lobe pneumonia/hospital-acquired pneumonia - Chest x-ray and CT chest reveals extensive consolidation of the right lung base. - Patient has been placed on IV Zosyn and azithromycin - Blood cultures, sputum culture and Gram stain has been ordered - Monitor CBC, CRP and procalcitonin 2. Acute on chronic hypoxic respiratory failure; currently on 15 L of oxygen by nasal cannula - Will plan to titrate or wean as able 3. Acute hypotension; rule out underlying sepsis and the patient is currently on low-dose norepinephrine. 4. Acute exacerbation COPD; patient has been placed on IV Solu-Medrol; bronchodilator nebulizer treatments 4 times daily and as needed 4. Chronic systolic heart failure. - Last echocardiogram showed impaired LV function with an ejection fraction of 35 to 40%, with moderate degree of aortic valve stenosis. He also has mild aortic dilatation at the level of the root measuring 41 mm in size. He has moderate RV dilatation, mild pulmonary hypertension. -Will continue with home diuretic therapy 5. Chronic atrial fibrillation, controlled rate, maintained on anticoagulation with Eliquis - Patient remains rate controlled on amiodarone 200 mg twice daily; continue home dose of beta-blockers 6. Chronic stage III kidney disease; creatinine at baseline; monitor strict CHICO's, daily weights, renal function electrolyte; avoid nephrotoxins and hypotension 7. History of implantation of permanent pacemaker. 8. History of hepatitis C/chronic liver disease/hepatocellular carcinoma. 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 Hepatocellular carcinoma. VTE prophylaxis; SCDs/systemic anticoagulation CODE STATUS; DNR
[2024-09-13] MEDS: IPRATROPIUM-ALBUTEROL 3 ML NEB INHALATION SCH (15:33)
[2024-09-13] MEDS: ATORVASTATIN 40 MG TAB PO SCH (21:42)
[2024-09-14 05:42] LABS: HCT 29.5 % (39.6-50.0); Lymphocytes % (A) 6.1 %; MCHC 30.2 g/dL (32.0-37.0); MCV 86.3 fL (80.0-97.0); Monocytes # (A) 0.03 10*3/uL (0.20-1.00); Monocytes % (A) 1.8 %; Neutrophils # (A) 1.49 10*3/uL (1.80-7.70); Neutrophils % (A) 91.5 %; RBC 3.42 10*6/uL (4.40-5.60); WBC 1.63 10*3/uL (4.50-10.00)
[2024-09-14 06:12] LABS: HGB 8.9 g/dL (13.0-17.0)
[2024-09-14 06:13] LABS: Platelet Count 63 10*3/uL (140-440)
[2024-09-14 06:35] LABS: African American GFR (CKD) 21 (>60 ml/min/1.73 sqM); Anion Gap 13 mmol/L; Blood Urea Nitrogen 73 mg/dL (9-20); Calcium 8.5 mg/dL (8.4-10.2); Carbon Dioxide 24 mmol/L (22-30); Chloride 103 mmol/L (98-107); Glucose 123 mg/dL (74-99); Non-African American GFR(CKD) 18 (>60 ml/min/1.73 sqM); Sodium 140 mmol/L (137-145)
--- NOTE | 2024-09-14 07:10 | XR ---
EXAMINATION TYPE: XR chest 1V portable DATE OF EXAM: 09/14/2024 5:26 AM COMPARISON: 09/13/2024 CLINICAL INDICATION: Male, 74 years old with history of pneumonia, previous abnormal chest TECHNIQUE: XR chest 1V portable view(s) obtained. FINDINGS: The heart size is enlarged. The pulmonary vasculature is normal. There is an infiltrate at the right base. Correlate for atelectasis or pneumonia. Patient is rotated to the left. Diffuse increased lung markings within the left lung. Pacemaker overlies the left chest. IMPRESSION: 1. Right lower lobe and left lung infiltrate. Correlate for pneumonia. Continued follow-up is recomme nded 2. [facility], , 09/14/2024 7:08 AM
[2024-09-14] MEDS: PANTOPRAZOLE 40 MG/10 ML VIAL IV SCH (08:26)
[2024-09-14] MEDS: AZITHROMYCIN 500 MG in SODIUM CHLORIDE 0.9% 250 ML IVPB SCH (08:26)
[2024-09-14] MEDS: METOPROLOL TARTRATE 25 MG TAB PO SCH (08:29)
[2024-09-14 10:53] LABS: HCT 30.7 % (39.6-50.0); HGB 9.2 g/dL (13.0-17.0); Immature Platelet Fraction 4.2 % (1.1-6.1); Lymphocytes # (A) 0.09 10*3/uL (0.90-5.00); Lymphocytes % (A) 6.2 %; MCH 26.2 pg (27.0-32.0); MCV 87.5 fL (80.0-97.0); Monocytes # (A) 0.05 10*3/uL (0.20-1.00); Monocytes % (A) 3.4 %; Neutrophils # (A) 1.29 10*3/uL (1.80-7.70); RBC 3.51 10*6/uL (4.40-5.60); RDW 18.1 % (11.5-14.5)
[2024-09-14 11:06] LABS: African American GFR (CKD) 20 (>60 ml/min/1.73 sqM); Anion Gap 15 mmol/L; Blood Urea Nitrogen 75 mg/dL (9-20); Calcium 8.5 mg/dL (8.4-10.2); Carbon Dioxide 24 mmol/L (22-30); Chloride 101 mmol/L (98-107); Glucose 206 mg/dL (74-99); Non-African American GFR(CKD) 17 (>60 ml/min/1.73 sqM); Potassium 4.1 mmol/L (3.5-5.1); Sodium 140 mmol/L (137-145)
[2024-09-14 11:29] LABS: Glucose,Whole Blood 203 mg/dL (70-110)
[2024-09-14 11:31] LABS: WBC 1.45 10*3/uL (4.50-10.00)
[2024-09-14 12:22] LABS: Platelet Count 36 10*3/uL (140-440)
--- NOTE | 2024-09-14 14:22 | P.PN ---
Subjective Progress Note Date: 09/14/24 Principal diagnosis: Acute bilateral pneumonia, possibly hospital-acquired with acute on chronic hypoxic respiratory failure This is a 74-year-old male patient with multiple medical problems and coming into the department having chest discomfort, cough, congestion and worsening shortness of breath. He is chronically debilitated and is willing more weak than usual. Denies having any fever. No hemoptysis. No pleurisy. Noted, the patient was hospitalized few days back and the patient was discharged home and his condition decompensated over the past 24 hours. The patient had a follow-up chest x-ray in the emergency department that showed development of new bilateral lower lobe pulmonary filtrates consistent with pneumonia. The patient was hypoxic and his oxygen requirements progressively got worse and is currently on 15 L of oxygen by nasal cannula with a pulse ox of 93%. He typically uses oxygen between 2 and 3 L. He remains in chronic atrial fibrillation. The white cell count is 8.9 with a hemoglobin 11.9 and a platelet count of 142. BUN is 64 with a creatinine of 2.7 and sodium levels at 138. Potassium level is at 4.4. Initial lactic acid level was at 3.1 down to 1.6. Procalcitonin level is pending. proBNP level is 26,100. Troponins at 0.03. Rest of the liver function tests are normal. The viral screen is negative. Based on his clinical presentation, I ordered a noncontrast CAT scan of the chest and the CAT scan showed cardiomegaly, splenomegaly, small bilateral pleural effusion, bibasilar pulmonary consolidation in addition to consolidation of the right middle lobe and the findings are quite suspicious for an underlying pneumonia. The patient accordingly was started on Zosyn and is also on Zithromax. On a separate note, the patient was noted to be hypotensive. He was started on low-dose norepinephrine for hemodynamic support. The patient is currently on norepinephrine running at 0.05 mcg/kg/min. Awake and alert and communicating His comorbidities are multiple and the patient is known to have COPD, chronic stage III kidney disease, congestion heart failure with a ejection fraction of 35 to 40% and the patient has moderate degree of aortic stenosis and mild pulmonary hypertension, chronic A-fib, hypertension, history of pancytopenia as the patient has previous history of hepatitis C and history of hepatocellular ca rcinoma and he also has previous history of coronary artery disease with previous AK and hypertension and the patient has a permanent pacemaker in place. Patient was seen today on 09/14/2024, patient remains in the ICU, on 3 L nasal cannula, he has significant pneumonia bilaterally possibly aspiration related or could be hospital-acquired pneumonia. In addition the patient has hemoptysis, I went ahead and held his Eliquis today. Patient is on antibiotics in the form of Zosyn and Zithromax, he is also on bronchodilators, and he is supposed to follow-up at [facility] on Saturday for his severe aortic stenosis, however looking at the overall picture, patient is not going to be discharged before Saturday considering the extensiveness of his pneumonia. Hence I will ask the admitting physician to consider transferring the patient to [facility] if possible. In the meantime patient is on antibiotics in the form of Zithromax and Zosyn, and he is on 3 L nasal cannula, not in distress. WBC count is 1.45 hemoglobin 9.2 electrolytes are normal BUN is 75 creatinine 3.36. Seems to be getting worse. Urine Legionella antigen is negative. Objective - Vital Signs Vital signs: Vital Signs Temp 97.8 F 09/14/24 12:00 Pulse 106 H 09/14/24 13:00 Resp 18 09/14/24 13:00 BP 125/78 09/14/24 13:00 Pulse Ox 99 09/14/24 13:00 FiO2 Intake & Output 09/13/24 09/14/24 09/14/24 18:59 06:59 18:59 Intake Total 728.687 200 380 Output Total 525 450 625 Balance 203.687 -250 -245 Weight 83.915 kg 89 kg Intake: IV 200 130 0.9 KVO 100 30 Piperacillin-Tazobactam 3 100 100 .375 gm In Sodium Chloride 0.9% 100 ml @ 25 mls/hr IVPB Q8HR [facility] Rx# :[id number] Intake, IV Titration 128.687 250 Amount Azithromycin 500 mg In 250 Sodium Chloride 0.9% 250 ml @ 250 mls/hr IVPB DAILY@1000 [facility] Rx#: [id number] Norepinephrine 4 mg In 128.687 Sodium Chloride 0.9% 250 ml @ 0.03 MCG/KG/MIN 9. 591 mls/hr IV .Q24H [facility] Rx#:[id number] Oral 600 Output: Urine 525 450 625 Other: Voiding Method Urinal Urinal # Voids 1 1 # Bowel Movements 0 0 - Exam Physical exam reveals 74-year-old white male in no distress Head: Atraumatic normocephalic HEENT: PERRLA, EOMI, nonicteric no neck masses no JVD Mild carotid bruit, systolic murmur radiating to carotids elevated jugular venous distention. Lungs: Diminished breath sounds and crackles at the bases no rhonchi no wheezes Heart: Irregular pulse, 3/6 systolic murmur Abdomen: Soft nontender, positive bowel sounds. Extremities: 1+ lower extremity edema Neuro: Alert oriented x 3 no gross focal deficit Psychiatric: Normal mood affect and no mental status examination Skin: No rashes - Labs CBC & Chem 7: 09/14/24 10:21 09/14/24 10:21 Labs: Abnormal Lab Results - Last 24 Hours (Table) 09/14/24 09/14/24 09/14/24 Range/Units 05:22 05:22 10:21 WBC 1.63 L 1.45 L* (4.50-10.00) 10*3/uL RBC 3.42 L 3.51 L (4.40-5.60) 10*6/uL Hgb 8.9 L D 9.2 L (13.0-17.0) g/dL Hct 29.5 L 30.7 L (39.6-50.0) % MCH 26.0 L 26.2 L (27.0-32.0) pg MCHC 30.2 L 30.0 L (32.0-37.0) g/dL Plt Count 63 L D 36 L (140-440) 10*3/uL Neutrophils # 1.49 L 1.29 L (1.80-7.70) 10*3/uL Lymphocytes # 0.10 L 0.09 L (0.90-5.00) 10*3/uL Monocytes # 0.03 L 0.05 L (0.20-1.00) 10*3/uL Eosinophils # 0.00 L 0.00 L (0.04-0.35) 10*3/uL BUN 73 H (9-20) mg/dL Creatinine 3.22 H (0.66-1.25) mg/dL Glucose 123 H (74-99) mg/dL POC Glucose (mg/dL) (70-110) mg/dL 09/14/24 09/14/24 Range/Units 10:21 11:28 WBC (4.50-10.00) 10*3/uL RBC (4.40-5.60) 10*6/uL Hgb (13.0-17.0) g/dL Hct (39.6-50.0) % MCH (27.0-32.0) pg MCHC (32.0-37.0) g/dL Plt Count (140-440) 10*3/uL Neutrophils # (1.80-7.70) 10*3/uL Lymphocytes # (0.90-5.00) 10*3/uL Monocytes # (0.20-1.00) 10*3/uL Eosinophils # (0.04-0.35) 10*3/uL BUN 75 H (9-20) mg/dL Creatinine 3.36 H (0.66-1.25) mg/dL Glucose 206 H (74-99) mg/dL POC Glucose (mg/dL) 203 H (70-110) mg/dL Microbiology - Last 24 Hours (Table) 09/13/24 01:58 Blood Culture - Preliminary Blood Assessment and Plan Assessment: Impression: Acute on chronic hypoxic respiratory failure Acute bilateral pneumonia could be aspiration pneumonia or could be hospital- acquired pneumonia Acute sepsis and hypotension with leukocytosis secondary to above Chronic systolic congestive heart failure ejection fraction of 35 to 40% in addition patient has moderate severe aortic stenosis Chronic atrial fibrillation Severe underlying COPD FEV1 of 59% Chronic kidney disease stage III History of pacemaker implantation History of hypertension History of hepatitis C Pancytopenia secondary to liver disease Parotid gland carcinoma History of hepatocellular carcinoma Recommendation: Continue antibiotics including Zosyn and Zithromax Patient is now off norepinephrine Continue amiodarone for atrial fibrillation and continue beta-blockers Continue steroids for his COPD Continue DuoNeb updrafts 4 times daily and as needed Continue to closely monitor renal status electrolytes on a daily basis Admitting physician to consider transfer to [facility] if possible since the patient has an appointment with them on Saturday regarding his aortic valve otherwise his appointment has to be canceled another appointment has to be made. Prognosis is guarded Will continue to follow Time with Patient: Less than 30
--- NOTE | 2024-09-14 14:46 | P.PN ---
Subjective Progress Note Date: 09/14/24 74-year-old male, history of COPD, CAD/CHF, aortic stenosis, atrial fibrillation, hypertension, CKD, presents to ED with complaint chest discomfort and worsening shortness of breath. He is chronically debilitated and is willing more weak than usual; patient was hospitalized few days back and the patient was discharged home and his condition decompensated over the past 24 hours. The patient was hypoxic and his oxygen requirements progressively got worse and is currently on 15 L of oxygen by nasal cannula with a pulse ox of 93%. He typically uses oxygen between 2 and 3 L. Chest x-ray in the emergency department that showed development of new bilateral lower lobe pulmonary filtrates consistent with pneumonia. - The white cell count is 8.9 with a hemoglobin 11.9 and a platelet count of 142. BUN is 64 with a creatinine of 2.7 and sodium levels at 138. Potassium level is at 4.4. Initial lactic acid level was at 3.1 down to 1.6. Procalcitonin level is pending. proBNP level is 26,100. Troponins at 0.03. Rest of the liver function tests are normal. The viral screen is negative. -CAT scan showed cardiomegaly, splenomegaly, small bilateral pleural effusion, bibasilar pulmonary consolidation in addition to consolidation of the right middle lobe and the findings are quite suspicious for an underlying pneumonia. The patient was started on Zosyn and is also on Zithromax per pulmonary recommendation. While in ED, the patient was noted to be hypotensive. He was started on low-dose norepinephrine for hemodynamic support. The patient is currently on norepinephrine running at 0.05 mcg/kg/min. Awake and alert and communicating 09/14/2024 Patient is seen in follow-up today in the ICU with pulmonary and cardiology following for pneumonia and CHF exacerbation. Patient currently on 3 L via nasal continues with extensive pneumonia maintained on Zithromax. Ceftriaxone was discontinued per pulmonary and started on Zosyn. Preliminary blood cultures are no growth and sputum culture is ordered and pending at this time. Patient's kidney functions are elevated above 3 creatinine and will consult nephrology and appreciate input and recommendations. Pulmonary test inspection engineer recommending possible transfer for tertiary treatment as patient was scheduled to undergo cardiac intervention at [facility] and feels he would benefit from being evaluated by them continuing care for his surgical procedure. Pretesting was to be done on this Saturday regarding CAT scans, blood work, further imaging. Given patient's extensive comorbidities and ongoing issues would recommend transfer to tertiary treatment. Will attempt to contact transfer center to discuss possible transfer. Review of systems: Constitutional: No reports of fatigue, fever, or chills Cardiovascular: No reports of chest pain or palpitations Respiratory: reports of continued shortness of breath and persistent cough GI: No reports of nausea, vomiting, or diarrhea : No reports of dysuria or retention Neurovascular: reports of generalized weakness All medications have been reviewed Physical exam: Gen: This is a 74-year-old male who is awake, alert and oriented x 3, thin built, elderly appearing, ill-appearing HEENT: Head is atraumatic, normocephalic. Pupils equal, round. Sclerae is anicteric. NECK: Supple. No JVD. No lymphadenopathy. No thyromegaly. LUNGS: Diminished breath sounds bilaterally otherwise clear to auscultation. No wheezes, coarse scattered rhonchi noted. No intercostal retractions. HEART: S1, S2 are muffled ABDOMEN: Soft. Bowel sounds are present. No masses. No tenderness. EXTREMITIES: No pedal edema. No calf tenderness. Mild bilateral lower extremity edema noted NEUROLOGICAL: Patient is awake, alert and oriented x3. Cranial nerves 2 through 12 are grossly intact. Assessment: -Acute bilateral lower lobe pneumonia/hospital-acquired pneumonia of the right lung base, present on admission -Acute on chronic hypoxic respiratory failure; currently on 3 L of oxygen by nasal cannula -Acute hypotension; rule out underlying sepsis and the patient was on low-dose norepinephrine. -Acute exacerbation COPD -Chronic systolic heart failure. Most recent EF revealing impaired LV function with an EF of 35 to 40% with moderate degree of aortic valve stenosis. Aortic dilatation at the level of the root also noted with moderate RV dilatation and mild pulmonary hypertension -Chronic atrial fibrillation, currently rate controlled, maintained on anticoagulation with Eliquis -Chronic stage III kidney disease, with acute [place], worsening kidney functions -History of implantation of permanent pacemaker. -History of hepatitis C/chronic liver disease/hepatocellular carcinoma. 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 -Hepatocellular carcinoma. GI prophylaxis DVT prophylaxis; SCDs/systemic anticoagulation DNR Plan: Patient is in the ICU with multiple consultations following including pulmonary test inspection engineer for bilateral pneumonia more so on the right. Patient is maintained on Zithromax and Zosyn and will continue while awaiting sputum culture. Blood culture thus far is negative Eliquis is held as patient was having extensive hemoptysis and lowered hemoglobin recommend monitoring closely and transfusing if less than 7 Consulted nephrology for acute on chronic kidney disease with worsening kidney functions today Patient is pancytopenic secondary to chronic liver disease also underlying infection with noted thrombocytopenia and leukopenia. May need hematology consult if numbers do not improve Follow-up on repeat labs and replace electrolytes per protocol There was discussion of possible transfer for tertiary treatment to [facility] and will attempt to contact the transfer team Due to multiple complex medical issues, overall prognosis is extremely guarded The impression and plan of care has been dictated by Marie Inman, Nurse Practitioner as directed. Dr. Golden MD I have performed a history and examination and MDM of this patient, discussed the same with the dictator, and agree with the dictator's assessment and plan as written ,documented as a scribe. Based on total visit time, I have performed more than 50% of the visit. Objective - Vital Signs Vital signs: Vital Signs Temp 97.8 F 09/14/24 12:00 Pulse 92 09/14/24 12:00 Resp 26 H 09/14/24 12:00 BP 102/67 09/14/24 12:00 Pulse Ox 98 09/14/24 12:00 FiO2 Intake & Output 09/13/24 09/14/24 09/14/24 18:59 06:59 18:59 Intake Total 728.687 200 370 Output Total 525 450 625 Balance 203.687 -250 -255 Weight 83.915 kg 89 kg Intake: IV 200 120 0.9 KVO 100 20 Piperacillin-Tazobactam 3 100 100 .375 gm In Sodium Chloride 0.9% 100 ml @ 25 mls/hr IVPB Q8HR [facility] Rx# :[id number] Intake, IV Titration 128.687 250 Amount Azithromycin 500 mg In 250 Sodium Chloride 0.9% 250 ml @ 250 mls/hr IVPB DAILY@1000 [facility] Rx#: [id number] Norepinephrine 4 mg In 128.687 Sodium Chloride 0.9% 250 ml @ 0.03 MCG/KG/MIN 9. 591 mls/hr IV .Q24H [facility] Rx#:[id number] Oral 600 Output: Urine 525 450 625 Other: Voiding Method Urinal Urinal # Voids 1 1 # Bowel Movements 0 0 - Labs CBC & Chem 7: 09/14/24 10:21 09/14/24 10:21 Labs: Abnormal Lab Results - Last 24 Hours (Table) 09/14/24 09/14/24 09/14/24 Range/Units 05:22 05:22 10:21 WBC 1.63 L 1.45 L* (4.50-10.00) 10*3/uL RBC 3.42 L 3.51 L (4.40-5.60) 10*6/uL Hgb 8.9 L D 9.2 L (13.0-17.0) g/dL Hct 29.5 L 30.7 L (39.6-50.0) % MCH 26.0 L 26.2 L (27.0-32.0) pg MCHC 30.2 L 30.0 L (32.0-37.0) g/dL Plt Count 63 L D 36 L (140-440) 10*3/uL Neutrophils # 1.49 L 1.29 L (1.80-7.70) 10*3/uL Lymphocytes # 0.10 L 0.09 L (0.90-5.00) 10*3/uL Monocytes # 0.03 L 0.05 L (0.20-1.00) 10*3/uL Eosinophils # 0.00 L 0.00 L (0.04-0.35) 10*3/uL BUN 73 H (9-20) mg/dL Creatinine 3.22 H (0.66-1.25) mg/dL Glucose 123 H (74-99) mg/dL POC Glucose (mg/dL) (70-110) mg/dL 09/14/24 09/14/24 Range/Units 10:21 11:28 WBC (4.50-10.00) 10*3/uL RBC (4.40-5.60) 10*6/uL Hgb (13.0-17.0) g/dL Hct (39.6-50.0) % MCH (27.0-32.0) pg MCHC (32.0-37.0) g/dL Plt Count (140-440) 10*3/uL Neutrophils # (1.80-7.70) 10*3/uL Lymphocytes # (0.90-5.00) 10*3/uL Monocytes # (0.20-1.00) 10*3/uL Eosinophils # (0.04-0.35) 10*3/uL BUN 75 H (9-20) mg/dL Creatinine 3.36 H (0.66-1.25) mg/dL Glucose 206 H (74-99) mg/dL POC Glucose (mg/dL) 203 H (70-110) mg/dL
[2024-09-14 16:42] LABS: Glucose,Whole Blood 157 mg/dL (70-110)
[2024-09-14] MEDS: DRY MOUTH SPRAY 59 SPRAY/59 ML SPRAY MUCOUS MEM PRN (16:42)
--- NOTE | 2024-09-14 16:49 | P.PN ---
Subjective Progress Note Date: 09/14/24 This patient was recently discharged from the hospital with atrial fibrillation and moderate ventricular rate. He came back in with increasing shortness of breath has what seems to be a right lower lobe infiltrate. Atrial fibrillation is moderately elevated he is hemodynamically stable but does have shortness of breath with activity. He is seeking additional evaluation at [facility] he sees Dr. Post as well. He has moderate to severe aortic stenosis as well. Resting comfortably at this time atrial fibrillation is noted rate is about 110-115. His creatinine is elevated his Lasix will be discontinued and we will increase metoprolol to tartrate to see how he does. Vitals are stable S1-S2 with regular rhythm short systolic murmur is audible second heart sound is preserved but he does have aortic stenosis. Lungs reveal fine rales right base abdomen and lower EXTR exam is unremarkable Plan is to continue antibiotics discontinue Lasix increase metoprolol to tartrate to 3 times daily and see how he does prognosis remains guarded Objective - Vital Signs Vital signs: Vital Signs Temp 97.8 F 09/14/24 12:00 Pulse 97 09/14/24 16:07 Resp 18 09/14/24 15:00 BP 116/90 09/14/24 15:00 Pulse Ox 96 09/14/24 15:00 FiO2 Intake & Output 09/13/24 09/14/24 09/14/24 18:59 06:59 18:59 Intake Total 728.687 200 510 Output Total 525 450 625 Balance 203.687 -250 -115 Weight 83.915 kg 89 kg Intake: IV 200 260 0.9 KVO 100 60 Piperacillin-Tazobactam 3 100 200 .375 gm In Sodium Chloride 0.9% 100 ml @ 25 mls/hr IVPB Q8HR [facility] Rx# :[id number] Intake, IV Titration 128.687 250 Amount Azithromycin 500 mg In 250 Sodium Chloride 0.9% 250 ml @ 250 mls/hr IVPB DAILY@1000 [facility] Rx#: [id number] Norepinephrine 4 mg In 128.687 Sodium Chloride 0.9% 250 ml @ 0.03 MCG/KG/MIN 9. 591 mls/hr IV .Q24H [facility] Rx#:[id number] Oral 600 Output: Urine 525 450 625 Other: Voiding Method Urinal Urinal # Voids 1 1 # Bowel Movements 0 0 - Labs CBC & Chem 7: 09/14/24 10:21 09/14/24 10:21 Labs: Abnormal Lab Results - Last 24 Hours (Table) 09/14/24 09/14/24 09/14/24 Range/Units 05:22 05:22 10:21 WBC 1.63 L 1.45 L* (4.50-10.00) 10*3/uL RBC 3.42 L 3.51 L (4.40-5.60) 10*6/uL Hgb 8.9 L D 9.2 L (13.0-17.0) g/dL Hct 29.5 L 30.7 L (39.6-50.0) % MCH 26.0 L 26.2 L (27.0-32.0) pg MCHC 30.2 L 30.0 L (32.0-37.0) g/dL Plt Count 63 L D 36 L (140-440) 10*3/uL Neutrophils # 1.49 L 1.29 L (1.80-7.70) 10*3/uL Lymphocytes # 0.10 L 0.09 L (0.90-5.00) 10*3/uL Monocytes # 0.03 L 0.05 L (0.20-1.00) 10*3/uL Eosinophils # 0.00 L 0.00 L (0.04-0.35) 10*3/uL BUN 73 H (9-20) mg/dL Creatinine 3.22 H (0.66-1.25) mg/dL Glucose 123 H (74-99) mg/dL POC Glucose (mg/dL) (70-110) mg/dL 09/14/24 09/14/24 09/14/24 Range/Units 10:21 11:28 16:41 WBC (4.50-10.00) 10*3/uL RBC (4.40-5.60) 10*6/uL Hgb (13.0-17.0) g/dL Hct (39.6-50.0) % MCH (27.0-32.0) pg MCHC (32.0-37.0) g/dL Plt Count (140-440) 10*3/uL Neutrophils # (1.80-7.70) 10*3/uL Lymphocytes # (0.90-5.00) 10*3/uL Monocytes # (0.20-1.00) 10*3/uL Eosinophils # (0.04-0.35) 10*3/uL BUN 75 H (9-20) mg/dL Creatinine 3.36 H (0.66-1.25) mg/dL Glucose 206 H (74-99) mg/dL POC Glucose (mg/dL) 203 H 157 H (70-110) mg/dL Microbiology - Last 24 Hours (Table) 09/13/24 01:58 Blood Culture - Preliminary Blood
[2024-09-14 20:12] LABS: Glucose,Whole Blood 174 mg/dL (70-110)
[2024-09-15 06:07] LABS: HCT 28.9 % (39.6-50.0); HGB 8.7 g/dL (13.0-17.0); Immature Platelet Fraction 3.7 % (1.1-6.1); Lymphocytes % (A) 6.3 %; MCHC 30.1 g/dL (32.0-37.0); MCV 86.3 fL (80.0-97.0); Mean Platelet Volume 11.1 fL (9.5-12.2); Monocytes # (A) 0.05 10*3/uL (0.20-1.00); Monocytes % (A) 3.1 %; Neutrophils # (A) 1.42 10*3/uL (1.80-7.70); Neutrophils % (A) 89.3 %; RBC 3.35 10*6/uL (4.40-5.60); RDW 17.8 % (11.5-14.5); WBC 1.59 10*3/uL (4.50-10.00)
[2024-09-15 06:18] LABS: Platelet Count 48 10*3/uL (140-440)
[2024-09-15 06:34] LABS: African American GFR (CKD) 20 (>60 ml/min/1.73 sqM); Anion Gap 12 mmol/L; Blood Urea Nitrogen 85 mg/dL (9-20); Calcium 8.8 mg/dL (8.4-10.2); Carbon Dioxide 24 mmol/L (22-30); Chloride 102 mmol/L (98-107); Glucose 129 mg/dL (74-99); Non-African American GFR(CKD) 17 (>60 ml/min/1.73 sqM); Potassium 4.4 mmol/L (3.5-5.1); Sodium 138 mmol/L (137-145)
--- NOTE | 2024-09-15 07:56 | XR ---
EXAMINATION TYPE: XR chest 1V DATE OF EXAM: 09/15/2024 5:19 AM COMPARISON: Chest radiographs from 09/14/2024, CT chest 09/14/2024 TECHNIQUE: XR chest 1V Portable AP radiograph of the chest. CLINICAL INDICATION:Male, 74 years old with history of pneumonia; FINDINGS: Lungs/Pleura: Small bilateral pleural effusions with left greater than right. Left basilar consolidat ion with right basilar patchy airspace opacities. No pneumothorax. Pulmonary vascularity: Unremarkable. Heart/mediastinum: Cardiomediastinal silhouette is enlarged and stable. Aneurysmal dilatation of the descending thoracic aorta as seen on recent CT. Measures up to 5.0 cm. Two lead cardiac conduction d evice overlying the left hemithorax with lead tips projecting over the right ventricle and right atri um. Musculoskeletal: No acute osseous pathology. Surgical anchor within the left humeral head. Other findings: Surgical clips within the right neck. IMPRESSION: 1. Similar right basilar patchy airspace opacities with decreased left lung consolidation. Findings suggest multifocal pneumonia. 2. Small bilateral pleural effusions with left greater than right. 3. Aneurysmal dilatation of the aorta as seen on recent CT. [facility], , 09/15/2024 7:54 AM
--- NOTE | 2024-09-15 10:31 | P.PN ---
Subjective Progress Note Date: 09/15/24 Principal diagnosis: HPI: This morning patient seems more comfortable is sitting up having his breakfast. He is in atrial fibrillation rate is much better controlled. No chest pain he is on antibiotics for pneumonia.. PHYSICIAL EXAM: Vitals are stable there is no JVD S1-S2 heard normally irregularity in rhythm ejection systolic murmur second heart sound is preserved lungs reveal decent air entry abdomen and lower extremity exam is unremarkable. IMPRESSION: 1. Persistent atrial fibrillation rate is better controlled. 2. Right lower lobe pneumonia. 3. Moderate to severe aortic stenosis. 4.. 5.. RECOMMENDATIONS: Continue current medical regimen and agree with antibiotics for now. Upon discharge she will follow-up at [facility] and also he will see Dr. Post no new suggestions. Objective - Vital Signs Vital signs: Vital Signs Temp 97.8 F 09/15/24 08:00 Pulse 106 H 09/15/24 10:00 Resp 12 09/15/24 10:00 BP 130/89 09/15/24 10:00 Pulse Ox 95 09/15/24 10:00 FiO2 Intake & Output 09/14/24 09/15/24 09/15/24 18:59 06:59 18:59 Intake Total 520 170 240 Output Total 625 1000 0 Balance -105 -830 240 Weight 90.8 kg Intake: IV 270 170 40 0.9 KVO 70 70 40 Piperacillin-Tazobactam 3 200 100 .375 gm In Sodium Chloride 0.9% 100 ml @ 25 mls/hr IVPB Q8HR [facility] Rx# :[id number] Intake, IV Titration 250 Amount Azithromycin 500 mg In 250 Sodium Chloride 0.9% 250 ml @ 250 mls/hr IVPB DAILY@1000 [facility] Rx#: [id number] Oral 200 Output: Urine 625 1000 0 Other: Voiding Method Urinal Urinal # Voids 1 # Bowel Movements 0 0 - Labs CBC & Chem 7: 09/15/24 05:30 09/15/24 05:30 Labs: Abnormal Lab Results - Last 24 Hours (Table) 09/14/24 09/14/24 09/14/24 Range/Units 10:21 10:21 11:28 WBC 1.45 L* (4.50-10.00) 10*3/uL RBC 3.51 L (4.40-5.60) 10*6/uL Hgb 9.2 L (13.0-17.0) g/dL Hct 30.7 L (39.6-50.0) % MCH 26.2 L (27.0-32.0) pg MCHC 30.0 L (32.0-37.0) g/dL Plt Count 36 L (140-440) 10*3/uL Neutrophils # 1.29 L (1.80-7.70) 10*3/uL Lymphocytes # 0.09 L (0.90-5.00) 10*3/uL Monocytes # 0.05 L (0.20-1.00) 10*3/uL Eosinophils # 0.00 L (0.04-0.35) 10*3/uL BUN 75 H (9-20) mg/dL Creatinine 3.36 H (0.66-1.25) mg/dL Glucose 206 H (74-99) mg/dL POC Glucose (mg/dL) 203 H (70-110) mg/dL 09/14/24 09/14/24 09/15/24 Range/Units 16:41 20:11 05:30 WBC 1.59 L (4.50-10.00) 10*3/uL RBC 3.35 L (4.40-5.60) 10*6/uL Hgb 8.7 L (13.0-17.0) g/dL Hct 28.9 L (39.6-50.0) % MCH 26.0 L (27.0-32.0) pg MCHC 30.1 L (32.0-37.0) g/dL Plt Count 48 L (140-440) 10*3/uL Neutrophils # 1.42 L (1.80-7.70) 10*3/uL Lymphocytes # 0.10 L (0.90-5.00) 10*3/uL Monocytes # 0.05 L (0.20-1.00) 10*3/uL Eosinophils # 0.00 L (0.04-0.35) 10*3/uL BUN (9-20) mg/dL Creatinine (0.66-1.25) mg/dL Glucose (74-99) mg/dL POC Glucose (mg/dL) 157 H 174 H (70-110) mg/dL 09/15/24 Range/Units 05:30 WBC (4.50-10.00) 10*3/uL RBC (4.40-5.60) 10*6/uL Hgb (13.0-17.0) g/dL Hct (39.6-50.0) % MCH (27.0-32.0) pg MCHC (32.0-37.0) g/dL Plt Count (140-440) 10*3/uL Neutrophils # (1.80-7.70) 10*3/uL Lymphocytes # (0.90-5.00) 10*3/uL Monocytes # (0.20-1.00) 10*3/uL Eosinophils # (0.04-0.35) 10*3/uL BUN 85 H (9-20) mg/dL Creatinine 3.33 H (0.66-1.25) mg/dL Glucose 129 H (74-99) mg/dL POC Glucose (mg/dL) (70-110) mg/dL Microbiology - Last 24 Hours (Table) 09/14/24 00:28 Gram Stain - Preliminary Sputum 09/13/24 01:58 Blood Culture - Preliminary Blood
[2024-09-15 11:39] LABS: Glucose,Whole Blood 242 mg/dL (70-110)
--- NOTE | 2024-09-15 11:56 | XR ---
EXAMINATION TYPE: XR abdomen 1V DATE OF EXAM: 09/15/2024 COMPARISON: Abdominal radiograph 08/06/2014 HISTORY: Abdominal distention TECHNIQUE: Single supine KUB image of the abdomen is obtained FINDINGS: Small bowel demonstrates no evidence for dilatation or air fluid levels. Gas and fecal material is seen in non-distended colon. No convincing evidence for pneumoperitoneum. No unusual calcifications. Please refer to dedicated chest radiograph the same day for findings. The osseous structures are intact. IMPRESSION: Overall nonobstructive bowel gas pattern. [facility], , 09/15/2024 11:54 AM
--- NOTE | 2024-09-15 11:58 | P.PN ---
Subjective Progress Note Date: 09/15/24 Principal diagnosis: Acute bilateral pneumonia, possibly hospital-acquired with acute on chronic hypoxic respiratory failure This is a 74-year-old male patient with multiple medical problems and coming into the department having chest discomfort, cough, congestion and worsening shortness of breath. He is chronically debilitated and is willing more weak than usual. Denies having any fever. No hemoptysis. No pleurisy. Noted, the patient was hospitalized few days back and the patient was discharged home and his condition decompensated over the past 24 hours. The patient had a follow-up chest x-ray in the emergency department that showed development of new bilateral lower lobe pulmonary filtrates consistent with pneumonia. The patient was hypoxic and his oxygen requirements progressively got worse and is currently on 15 L of oxygen by nasal cannula with a pulse ox of 93%. He typically uses oxygen between 2 and 3 L. He remains in chronic atrial fibrillation. The white cell count is 8.9 with a hemoglobin 11.9 and a platelet count of 142. BUN is 64 with a creatinine of 2.7 and sodium levels at 138. Potassium level is at 4.4. Initial lactic acid level was at 3.1 down to 1.6. Procalcitonin level is pending. proBNP level is 26,100. Troponins at 0.03. Rest of the liver function tests are normal. The viral screen is negative. Based on his clinical presentation, I ordered a noncontrast CAT scan of the chest and the CAT scan showed cardiomegaly, splenomegaly, small bilateral pleural effusion, bibasilar pulmonary consolidation in addition to consolidation of the right middle lobe and the findings are quite suspicious for an underlying pneumonia. The patient accordingly was started on Zosyn and is also on Zithromax. On a separate note, the patient was noted to be hypotensive. He was started on low-dose norepinephrine for hemodynamic support. The patient is currently on norepinephrine running at 0.05 mcg/kg/min. Awake and alert and communicating His comorbidities are multiple and the patient is known to have COPD, chronic stage III kidney disease, congestion heart failure with a ejection fraction of 35 to 40% and the patient has moderate degree of aortic stenosis and mild pulmonary hypertension, chronic A-fib, hypertension, history of pancytopenia as the patient has previous history of hepatitis C and history of hepatocellular ca rcinoma and he also has previous history of coronary artery disease with previous MO and hypertension and the patient has a permanent pacemaker in place. Patient was seen today on 09/14/2024, patient remains in the ICU, on 3 L nasal cannula, he has significant pneumonia bilaterally possibly aspiration related or could be hospital-acquired pneumonia. In addition the patient has hemoptysis, I went ahead and held his Eliquis today. Patient is on antibiotics in the form of Zosyn and Zithromax, he is also on bronchodilators, and he is supposed to follow-up at [facility] on Saturday for his severe aortic stenosis, however looking at the overall picture, patient is not going to be discharged before Saturday considering the extensiveness of his pneumonia. Hence I will ask the admitting physician to consider transferring the patient to [facility] if possible. In the meantime patient is on antibiotics in the form of Zithromax and Zosyn, and he is on 3 L nasal cannula, not in distress. WBC count is 1.45 hemoglobin 9.2 electrolytes are normal BUN is 75 creatinine 3.36. Seems to be getting worse. Urine Legionella antigen is negative. Patient was seen today on 09/30, on 3 L nasal cannula, remains in the ICU, complaining of difficulty swallowing, patient continues to have bibasilar consolidation, chest x-ray showing slight improvement clinically the patient is about the same but he seems to be more bothered with his difficulty swallowing. Patient remains on antibiotics in the form of Zosyn and Zithromax, he is on bronchodilators, he does have history of severe aortic stenosis, and he supposedly has an appointment with cardiology at [facility] tomorrow. But this is most likely going to be canceled and he will have to set up another appointment on outpatient basis. WBC count today is 1.59 hemoglobin is 8.7 electrolytes are normal BUN is 85 creatinine 3.33. Again his chest x-ray showed slight improvement in his bilateral pneumonia but definitely not resolved. Objective - Vital Signs Vital signs: Vital Signs Temp 97.8 F 09/15/24 08:00 Pulse 102 H 09/15/24 11:47 Resp 12 09/15/24 10:00 BP 130/89 09/15/24 10:00 Pulse Ox 95 09/15/24 10:00 FiO2 Intake & Output 09/14/24 09/15/24 09/15/24 18:59 06:59 18:59 Intake Total 520 170 240 Output Total 625 1000 0 Balance -105 -830 240 Weight 90.8 kg Intake: IV 270 170 40 0.9 KVO 70 70 40 Piperacillin-Tazobactam 3 200 100 .375 gm In Sodium Chloride 0.9% 100 ml @ 25 mls/hr IVPB Q8HR [facility] Rx# :[id number] Intake, IV Titration 250 Amount Azithromycin 500 mg In 250 Sodium Chloride 0.9% 250 ml @ 250 mls/hr IVPB DAILY@1000 [facility] Rx#: [id number] Oral 200 Output: Urine 625 1000 0 Other: Voiding Method Urinal Urinal Urinal # Voids 1 # Bowel Movements 0 0 - Exam Physical exam reveals 74-year-old white male in no distress, on 3 L nasal cannula Head: Atraumatic normocephalic HEENT: PERRLA, EOMI, nonicteric no neck masses no JVD Mild carotid bruit, systolic murmur radiating to carotids elevated jugular venous distention. Lungs: Crackles and rhonchi noted bilaterally Heart: Irregular pulse, 3/6 systolic murmur Abdomen: Soft nontender, positive bowel sounds. Extremities: 1+ lower extremity edema Neuro: Alert oriented x 3 no gross focal deficit Psychiatric: Normal mood affect and no mental status examination Skin: No rashes - Labs CBC & Chem 7: 09/15/24 05:30 09/15/24 05:30 Labs: Abnormal Lab Results - Last 24 Hours (Table) 09/14/24 09/14/24 09/14/24 Range/Units 10:21 16:41 20:11 WBC 1.45 L* (4.50-10.00) 10*3/uL RBC (4.40-5.60) 10*6/uL Hgb (13.0-17.0) g/dL Hct (39.6-50.0) % MCH (27.0-32.0) pg MCHC (32.0-37.0) g/dL Plt Count 36 L (140-440) 10*3/uL Neutrophils # 1.29 L (1.80-7.70) 10*3/uL Lymphocytes # 0.09 L (0.90-5.00) 10*3/uL Monocytes # 0.05 L (0.20-1.00) 10*3/uL Eosinophils # 0.00 L (0.04-0.35) 10*3/uL BUN (9-20) mg/dL Creatinine (0.66-1.25) mg/dL Glucose (74-99) mg/dL POC Glucose (mg/dL) 157 H 174 H (70-110) mg/dL 09/15/24 09/15/24 09/15/24 Range/Units 05:30 05:30 11:37 WBC 1.59 L (4.50-10.00) 10*3/uL RBC 3.35 L (4.40-5.60) 10*6/uL Hgb 8.7 L (13.0-17.0) g/dL Hct 28.9 L (39.6-50.0) % MCH 26.0 L (27.0-32.0) pg MCHC 30.1 L (32.0-37.0) g/dL Plt Count 48 L (140-440) 10*3/uL Neutrophils # 1.42 L (1.80-7.70) 10*3/uL Lymphocytes # 0.10 L (0.90-5.00) 10*3/uL Monocytes # 0.05 L (0.20-1.00) 10*3/uL Eosinophils # 0.00 L (0.04-0.35) 10*3/uL BUN 85 H (9-20) mg/dL Creatinine 3.33 H (0.66-1.25) mg/dL Glucose 129 H (74-99) mg/dL POC Glucose (mg/dL) 242 H (70-110) mg/dL Microbiology - Last 24 Hours (Table) 09/14/24 00:28 Gram Stain - Preliminary Sputum 09/13/24 01:58 Blood Culture - Preliminary Blood Assessment and Plan Assessment: Impression: Acute on chronic hypoxic respiratory failure Acute bilateral pneumonia could be aspiration pneumonia or could be hospital- acquired pneumonia Acute sepsis and hypotension with leukocytosis secondary to above Chronic systolic congestive heart failure ejection fraction of 35 to 40% in addition patient has moderate severe aortic stenosis Chronic atrial fibrillation Severe underlying COPD FEV1 of 59% Chronic kidney disease stage III History of pacemaker implantation History of hypertension History of hepatitis C 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 Will continue to follow Time with Patient: Less than 30
--- NOTE | 2024-09-15 12:24 | P.NPCON ---
History of Present Illness - Reason for Consult acute renal failure - History of Present Illness Patient is a 74-year-old male with history of chronic kidney disease stage IV with baseline creatinine around 2.3 to 2.7 mg/dL. He is admitted to the hospital with complaints of shortness of breath and increased weakness he was hypoxic with O2 sats in the 70s. Patient was recently discharged from the hospital on 09/11/2024 after hospitalization for COPD exacerbation and acute on chronic systolic CHF Ejection fraction 35 to 40% During this hospitalization patient was hypotensive and was maintained on press ors initially. Levophed has been off since yesterday. Currently not on IV fluids O2 requirements have decreased and patient is down to 3 L nasal cannula which is his home dose of oxygen Patient has been voiding Serum creatinine was 2.7 on admission and has increased to 2-3.3 today previous creatinine during hospitalization in July was 2.3 to 2.7 mg/dL. Past Medical History Past Medical History: Cancer, Chest Pain / Angina, Heart Failure, COPD, Hypertension, Liver Disease, Myocardial Infarction (SC), Musculoskeletal Disorder, Pneumonia Additional Past Medical History / Comment(s): HX OF HEPATITIS C , hepatocellular carcinoma, LOW IRON , BACK PAIN, HERNIATED DISCS, SKIN CANCER, 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 Hospitalized last week for CHF & Pneumonia. Irr. heart rate @ times. liver cancer Last Myocardial Infarction Date:: 2022 History of Any Multi-Drug Resistant Organisms: None Reported Past Surgical History: Back Surgery, Heart Catheterization, Hernia Repair, Orthopedic Surgery, Pacemaker Additional Past Surgical History / Comment(s): liver ablation done at [facility] for tx of hepatocellular carcinoma,hemorrhoids ,back surgery, cataract, skin cancer, inguinal hernia, abdominal hernia, left shoulder, right wrist, growth removed vocal cord, PAROTID GLAND REMOVED DUE TO CANCER. Past Anesthesia/Blood Transfusion Reactions: No Reported Reaction Additional Past Anesthesia/Blood Transfusion Reaction / Comment(s): no hx blood transfusion Type of Cardiac Device: Permanent Pacemaker Device Placement Date:: 01/20/24 Past Psychological History: No Psychological Hx Reported Smoking Status: Former smoker Past Alcohol Use History: None Reported Past Drug Use History: None Reported - Past Family History Father Family Medical History: Cancer Medications and Allergies Home Medications Medication Instructions Recorded Confirmed Type Colchicine 0.6 mg PO DAILY 08/02/16 09/13/24 History Tiotropium 2.5 Mcg/Puff [Spiriva 1 puff INHALATION RT-BID 01/14/23 09/13/24 History Respimat 2.5 Mcg] traZODone HCL [Desyrel] 50 mg PO HS 01/14/23 09/13/24 History Cholecalciferol [Vitamin D3 (25 25 mcg PO DAILY 02/11/23 09/13/24 History Mcg = 1000 Iu)] Multivit-Min/FA/Lycopen/Lutein 1 tab PO DAILY 02/11/23 09/13/24 History [Centrum Silver Tablet] Albuterol Inhaler [Ventolin Hfa 2 puff INHALATION RT-Q6H PRN 06/30/23 09/13/24 History Inhaler] Pantoprazole Sodium [Protonix] 20 mg PO DAILY 06/30/23 09/13/24 History Fluticasone Propion/Salmeterol 1 puff INHALATION RT-BID 01/14/24 09/13/24 History [Wixela 500-50 Inhub] Ferrous Sulfate [Iron (65 MG 325 mg PO DAILY 02/06/24 09/13/24 History Elemental)] Folic Acid 1 mg PO DAILY 02/06/24 09/13/24 History Naloxone HCl [Narcan] 4 mg NASAL DIRECTED PRN 02/06/24 09/13/24 History Ipratropium-Albuterol Nebulize 3 ml INHALATION RT-Q4H PRN each 02/07/24 09/13/24 Rx [Duoneb 0.5 mg-3 mg/3 ml Soln] predniSONE 5 mg PO DAILY 07/04/24 09/13/24 History ALPRAZolam [Xanax] 0.25 mg PO BID PRN 07/25/24 09/13/24 History Apixaban [Eliquis] 2.5 mg PO BID 07/25/24 09/13/24 History Sennosides-Docusate Sodium 1 tab PO DAILY 07/25/24 09/13/24 History [Senokot-S] Dapagliflozin Propanediol [Farxiga] 5 mg PO DAILY 10 Days #10 tab 07/27/24 09/13/24 Rx hydrALAZINE HCL [Apresoline] 25 mg PO TID #90 tab 07/27/24 09/13/24 Rx Furosemide [Lasix] 40 mg PO BID 09/10/24 09/13/24 History HYDROcodone/APAP 10-325MG [[place] 1 tab PO Q6H PRN 09/10/24 09/13/24 History 10-325] carvediloL [Coreg] 12.5 mg PO ACHS 09/10/24 09/13/24 History Allergies Allergy/AdvReac Type Severity Reaction Status Date / Time allopurinol AdvReac Gout Verified 09/13/24 14:13 atenolol AdvReac Fatigue,Bra Verified 09/13/24 14:13 dycardia doxazosin AdvReac Delerium,Di Verified 09/13/24 14:13 zziness hydralazine AdvReac Unknown Verified 09/13/24 14:13 lisinopril AdvReac Cough Verified 09/13/24 14:13 metoprolol [From Lopressor] AdvReac Chest Pain Verified 09/13/24 14:13 omalizumab [From Xolair] AdvReac urticaria Verified 09/13/24 14:13 Physical Exam Vitals: Vital Signs Temp Pulse Resp BP Pulse Ox 09/15/24 11:47 102 H 09/15/24 11:36 98 09/15/24 10:00 106 H 12 130/89 95 09/15/24 09:00 104 H 16 133/96 92 L 09/15/24 08:30 100 09/15/24 08:15 90 09/15/24 08:00 97.8 F 101 H 23 134/97 96 09/15/24 07:00 93 14 118/90 97 09/15/24 06:00 90 18 133/87 95 09/15/24 05:00 96 13 128/89 97 09/15/24 04:09 90 09/15/24 04:00 97.6 F 90 14 130/80 98 09/15/24 03:59 95 09/15/24 03:00 88 12 128/88 97 09/15/24 02:00 90 14 131/83 97 09/15/24 01:00 92 13 127/89 97 09/15/24 00:44 93 09/15/24 00:33 98 09/15/24 00:00 97.7 F 89 12 126/91 97 09/14/24 23:00 89 13 118/74 95 09/14/24 22:51 96 16 118/74 96 09/14/24 22:00 89 15 137/93 95 09/14/24 21:12 97 09/14/24 21:02 101 H 09/14/24 21:00 105 H 19 127/89 98 09/14/24 20:00 97.6 F 85 14 118/78 91 L 09/14/24 19:00 92 18 125/81 96 09/14/24 18:00 92 20 128/91 96 09/14/24 17:00 104 H 16 136/96 95 09/14/24 16:07 97 09/14/24 16:00 97.6 F 92 16 132/104 100 09/14/24 15:54 99 09/14/24 15:00 96 18 116/90 96 09/14/24 14:00 89 14 114/76 95 09/14/24 13:00 106 H 18 125/78 99 09/14/24 12:57 93 09/14/24 12:49 92 Intake and Output 09/14/24 09/15/24 09/15/24 22:59 06:59 14:59 Intake Total 160 140 240 Output Total 600 400 0 Balance -440 -260 240 Intake: IV 160 140 40 0.9 KVO 60 40 40 Piperacillin-Tazobactam 3 100 100 .375 gm In Sodium Chloride 0.9% 100 ml @ 25 mls/hr IVPB Q8HR [facility] Rx# :[id number] Oral 200 Output: Urine 600 400 0 Other: Voiding Method Urinal Urinal Urinal # Voids 1 # Bowel Movements 0 0 Weight 90.8 kg Patient is awake, comfortable, no acute distress Examination of the heart S1 and S2 Examination of the lungs decreased breath sounds at the bases occasional wheezing heard Abdomen is soft Examination lower extremity shows 1+ edema [employer] exam grossly intact Results - Lab Results Most recent lab results Calcium 8.8 mg/dL (8.4-10.2) 09/15/24 05:30 Magnesium 2.3 mg/dL (1.6-2.3) 09/13/24 01:02 09/15/24 05:30 09/15/24 05:30 Assessment and Plan Assessment: 1. Acute kidney injury secondary to ATN from hypotension and sepsis. Nonoliguric. Check UA. Ultrasound on 09/02/2024 did not show any evidence of obstruction. 2. Acute on chronic hypoxic respiratory failure secondary to pneumonia and COPD exacerbation 3. Sepsis from pneumonia 4. Chronic kidney disease stage IV with baseline creatinine about 2.3 mg/dL secondary to nephrosclerosis 4. Cardiomyopathy with EF of 35 to 40% 5. Chronic A-fib 6. History of hepatitis C 7. History of hepatocellular carcinoma Plan: Continue with antibiotics Check UA Repeat labs in a.m. Avoid nephrotoxic agents Continue off of IV fluids for now. Add gentle IV hydration tomorrow if renal function is worse. Thank you for the consultation. We will continue to follow the patient with you during his hospitalization.
[2024-09-15] MEDS: NYSTATIN 100,000 UNIT/ML SUSP 500,000 UNIT/5 ML CUP PO SCH (14:06)
--- NOTE | 2024-09-15 15:22 | FL ---
EXAMINATION TYPE: FL barium swallow w video DATE OF EXAM: 09/15/2024 MODIFIED SWALLOW / DEGLUTITION STUDY CLINICAL HISTORY: Dysphagia. History of parotid cancer. TECHNIQUE: Deglutition study is performed utilizing thin liquid barium, barium thick pudding, and ba rium coated cracker. 1.31 minutes of fluoro time and 1 images obtained. Total dose area product (DA P) in uGy*m?, mGy*cm? (or similar): 99.53 COMPARISON: None. FINDINGS: The oral and pharyngeal phases show satisfactory initiation and propagation with all modali ties tested. Normal mastication is seen with solid modalities tested. Numerous surgical clips in the neck are present. There is transient penetration with thin liquid barium that improves with chin tuc k procedure. No aspiration is seen. No significant pharyngeal residue was appreciated. IMPRESSION: No aspiration seen. Please refer to speech therapist notes for further details if necess laurita. [facility], , 09/15/2024 3:20 PM
[2024-09-15 16:39] LABS: Glucose,Whole Blood 124 mg/dL (70-110)
[2024-09-15 20:13] LABS: Glucose,Whole Blood 162 mg/dL (70-110)
[2024-09-16 04:34] LABS: Amorphous Sediment,Urine Rare /hpf; Appearance,Urine Clear (Clear); Bacteria,Urine Occasional /hpf; Bilirubin,Urine Negative (Negative); Blood,Urine Small (Negative); Calcium Oxalate Crystals,Urine Occasional /hpf; Color,Urine Light Yellow; Glucose,Urine (UA) Trace (Negative); Hyaline Casts,Urine 7 /lpf (0-2); Ketones,Urine Negative (Negative); Leukocyte Esterase,Urine Negative (Negative); Nitrite,Urine Negative (Negative); Protein,Urine Trace (Negative); RBC,Urine 6 /hpf (0-5); Specific Gravity,Urine 1.017 (1.001-1.035); Squamous Epithelial Cell,Urine <1 /hpf (0-4); Urobilinogen,Urine <2.0 mg/dL (<2.0); WBC,Urine 2 /hpf (0-5)
--- NOTE | 2024-09-16 05:03 | P.PN ---
Subjective Progress Note Date: 09/15/24 74-year-old male, history of COPD, CAD/CHF, aortic stenosis, atrial fibrillation, hypertension, CKD, presents to ED with complaint chest discomfort and worsening shortness of breath. He is chronically debilitated and is willing more weak than usual; patient was hospitalized few days back and the patient was discharged home and his condition decompensated over the past 24 hours. The patient was hypoxic and his oxygen requirements progressively got worse and is currently on 15 L of oxygen by nasal cannula with a pulse ox of 93%. He typically uses oxygen between 2 and 3 L. Chest x-ray in the emergency department that showed development of new bilateral lower lobe pulmonary filtrates consistent with pneumonia. - The white cell count is 8.9 with a hemoglobin 11.9 and a platelet count of 142. BUN is 64 with a creatinine of 2.7 and sodium levels at 138. Potassium level is at 4.4. Initial lactic acid level was at 3.1 down to 1.6. Procalcitonin level is pending. proBNP level is 26,100. Troponins at 0.03. Rest of the liver function tests are normal. The viral screen is negative. -CAT scan showed cardiomegaly, splenomegaly, small bilateral pleural effusion, bibasilar pulmonary consolidation in addition to consolidation of the right middle lobe and the findings are quite suspicious for an underlying pneumonia. The patient was started on Zosyn and is also on Zithromax per pulmonary recommendation. While in ED, the patient was noted to be hypotensive. He was started on low-dose norepinephrine for hemodynamic support. The patient is currently on norepinephrine running at 0.05 mcg/kg/min. Awake and alert and communicating 09/14/2024 Patient is seen in follow-up today in the ICU with pulmonary and cardiology following for pneumonia and CHF exacerbation. Patient currently on 3 L via nasal continues with extensive pneumonia maintained on Zithromax. Ceftriaxone was discontinued per pulmonary and started on Zosyn. Preliminary blood cultures are no growth and sputum culture is ordered and pending at this time. Patient's kidney functions are elevated above 3 creatinine and will consult nephrology and appreciate input and recommendations. Pulmonary project manager process development recommending possible transfer for tertiary treatment as patient was scheduled to undergo cardiac intervention at [facility] and feels he would benefit from being evaluated by them continuing care for his surgical procedure. Pretesting was to be done on this Saturday regarding CAT scans, blood work, further imaging. Given patient's extensive comorbidities and ongoing issues would recommend transfer to tertiary treatment. Will attempt to contact transfer center to discuss possible transfer. 09/15/2024. Patient is seen in follow-up today continues in the ICU although is a downgrade to 3 S. once a bed becomes available. Patient continues on 3 L with pulmonary and cardiology following maintained on antibiotics and sputum culture remains pending. Creatinine is 3.33 nephrology consulted and appreciate input and recommendations regarding acute on chronic kidney disease with LONDON. Patient is afebrile although reports continued shortness of breath. Patient was scheduled for outpatient testing for further surgical intervention with Jarrod Akers this Saturday although will likely need to be rescheduled. Patient does not appear to be a good surgical candidate and is high risk given significant comorbidities. Encouraged to increase activity as tolerated and patient is reporting significant difficulty and pain with swallowing. Speech is consulted and will likely undergo swallow study Review of systems: Constitutional: No reports of fatigue, fever, or chills Cardiovascular: No reports of chest pain or palpitations Respiratory: reports of continued shortness of breath and persistent cough GI: No reports of nausea, vomiting, or diarrhea : No reports of dysuria or retention Neurovascular: reports of generalized weakness All medications have been reviewed Physical exam: Gen: This is a 74-year-old male who is awake, alert and oriented x 3, thin built, elderly appearing, ill-appearing HEENT: Head is atraumatic, normocephalic. Pupils equal, round. Sclerae is anicteric. NECK: Supple. No JVD. No lymphadenopathy. No thyromegaly. LUNGS: Diminished breath sounds bilaterally otherwise clear to auscultation. No wheezes, coarse scattered rhonchi noted. No intercostal retractions. HEART: S1, S2 are muffled ABDOMEN: Soft. Mildly distended, bowel sounds are present. No masses. No tenderness. EXTREMITIES: No pedal edema. No calf tenderness. Mild bilateral lower extre mity edema noted NEUROLOGICAL: Patient is awake, alert and oriented x3. Cranial nerves 2 through 12 are grossly intact. Diffusely weak Assessment: -Acute bilateral lower lobe pneumonia/hospital-acquired pneumonia of the right lung base, with sepsis present on admission -Acute on chronic hypoxic respiratory failure; currently on 3 L of oxygen by nasal cannula -Acute hypotension; likely secondary to sepsis and the patient was on low-dose norepinephrine. -Acute exacerbation COPD -Chronic systolic heart failure. Most recent EF revealing impaired LV function with an EF of 35 to 40% with moderate degree of aortic valve stenosis. Aortic dilatation at the level of the root also noted with moderate RV dilatation and mild pulmonary hypertension -Chronic atrial fibrillation, currently rate controlled, maintained on anticoagulation with Eliquis -Chronic stage III kidney disease, with acute LONDON, worsening kidney functions -History of implantation of permanent pacemaker. -History of hepatitis C/chronic liver disease/hepatocellular carcinoma. 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 -Hepatocellular carcinoma. GI prophylaxis DVT prophylaxis; SCDs/systemic anticoagulation DNR Plan: Patient is in the ICU with multiple consultations following including pulmonary project manager process development for bilateral pneumonia more so on the right. Patient is maintained on Zithromax and Zosyn and will continue while awaiting sputum culture. Blood culture thus far is negative. Patient is a transfer out of the ICU once a bed on 3 S. becomes available Eliquis is held as patient was having extensive hemoptysis and lowered hemoglobin recommend monitoring closely and transfusing if less than 7 Consulted nephrology for acute on chronic kidney disease with worsening kidney functions and appreciate input and recommendations Patient is pancytopenic secondary to chronic liver disease also underlying infection with noted thrombocytopenia and leukopenia. May need hematology consult if numbers do not improve Follow-up on repeat labs and replace electrolytes per protocol There was discussion of possible transfer for tertiary treatment to [facility] and patient will likely need to reschedule upcoming testing for possible cardiology intervention at [facility] later date. Patient will not be accepted for transfer at this time Encouraged increased activity as tolerated. Patient is scheduled to undergo swallow study with speech as patient was reporting increasing difficulty with swallowing Due to multiple complex medical issues, overall prognosis is extremely guarded The impression and plan of care has been dictated by Marie Inman, Nurse Practitioner as directed. Dr. Golden MD I have performed a history and examination and MDM of this patient, discussed the same with the dictator, and agree with the dictator's assessment and plan as written ,documented as a scribe. Based on total visit time, I have performed more than 50% of the visit. Objective - Vital Signs Vital signs: Vital Signs Temp 97.8 F 09/15/24 08:00 Pulse 106 H 09/15/24 10:00 Resp 12 09/15/24 10:00 BP 130/89 09/15/24 10:00 Pulse Ox 95 09/15/24 10:00 FiO2 Intake & Output 09/14/24 09/15/24 09/15/24 18:59 06:59 18:59 Intake Total 520 170 240 Output Total 625 1000 0 Balance -105 -830 240 Weight 90.8 kg Intake: IV 270 170 40 0.9 KVO 70 70 40 Piperacillin-Tazobactam 3 200 100 .375 gm In Sodium Chloride 0.9% 100 ml @ 25 mls/hr IVPB Q8HR [facility] Rx# :[id number] Intake, IV Titration 250 Amount Azithromycin 500 mg In 250 Sodium Chloride 0.9% 250 ml @ 250 mls/hr IVPB DAILY@1000 [facility] Rx#: [id number] Oral 200 Output: Urine 625 1000 0 Other: Voiding Method Urinal Urinal Urinal # Voids 1 # Bowel Movements 0 0 - Labs CBC & Chem 7: 09/15/24 05:30 09/15/24 05:30 Labs: Abnormal Lab Results - Last 24 Hours (Table) 09/14/24 09/14/24 09/14/24 Range/Units 10:21 10:21 11:28 WBC 1.45 L* (4.50-10.00) 10*3/uL RBC 3.51 L (4.40-5.60) 10*6/uL Hgb 9.2 L (13.0-17.0) g/dL Hct 30.7 L (39.6-50.0) % MCH 26.2 L (27.0-32.0) pg MCHC 30.0 L (32.0-37.0) g/dL Plt Count 36 L (140-440) 10*3/uL Neutrophils # 1.29 L (1.80-7.70) 10*3/uL Lymphocytes # 0.09 L (0.90-5.00) 10*3/uL Monocytes # 0.05 L (0.20-1.00) 10*3/uL Eosinophils # 0.00 L (0.04-0.35) 10*3/uL BUN 75 H (9-20) mg/dL Creatinine 3.36 H (0.66-1.25) mg/dL Glucose 206 H (74-99) mg/dL POC Glucose (mg/dL) 203 H (70-110) mg/dL 09/14/24 09/14/24 09/15/24 Range/Units 16:41 20:11 05:30 WBC 1.59 L (4.50-10.00) 10*3/uL RBC 3.35 L (4.40-5.60) 10*6/uL Hgb 8.7 L (13.0-17.0) g/dL Hct 28.9 L (39.6-50.0) % MCH 26.0 L (27.0-32.0) pg MCHC 30.1 L (32.0-37.0) g/dL Plt Count 48 L (140-440) 10*3/uL Neutrophils # 1.42 L (1.80-7.70) 10*3/uL Lymphocytes # 0.10 L (0.90-5.00) 10*3/uL Monocytes # 0.05 L (0.20-1.00) 10*3/uL Eosinophils # 0.00 L (0.04-0.35) 10*3/uL BUN (9-20) mg/dL Creatinine (0.66-1.25) mg/dL Glucose (74-99) mg/dL POC Glucose (mg/dL) 157 H 174 H (70-110) mg/dL 09/15/24 Range/Units 05:30 WBC (4.50-10.00) 10*3/uL RBC (4.40-5.60) 10*6/uL Hgb (13.0-17.0) g/dL Hct (39.6-50.0) % MCH (27.0-32.0) pg MCHC (32.0-37.0) g/dL Plt Count (140-440) 10*3/uL Neutrophils # (1.80-7.70) 10*3/uL Lymphocytes # (0.90-5.00) 10*3/uL Monocytes # (0.20-1.00) 10*3/uL Eosinophils # (0.04-0.35) 10*3/uL BUN 85 H (9-20) mg/dL Creatinine 3.33 H (0.66-1.25) mg/dL Glucose 129 H (74-99) mg/dL POC Glucose (mg/dL) (70-110) mg/dL Microbiology - Last 24 Hours (Table) 09/14/24 00:28 Gram Stain - Preliminary Sputum 09/13/24 01:58 Blood Culture - Preliminary Blood
[2024-09-16 06:05] LABS: Glucose,Whole Blood 148 mg/dL (70-110)
[2024-09-16 09:06] LABS: HCT 30.9 % (39.6-50.0); HGB 9.1 g/dL (13.0-17.0); Lymphocytes # (A) 0.08 10*3/uL (0.90-5.00); Lymphocytes % (A) 3.2 %; MCH 25.9 pg (27.0-32.0); MCHC 29.4 g/dL (32.0-37.0); Mean Platelet Volume 11.2 fL (9.5-12.2); Monocytes # (A) 0.05 10*3/uL (0.20-1.00); Neutrophils # (A) 2.34 10*3/uL (1.80-7.70); RBC 3.51 10*6/uL (4.40-5.60); RDW 17.9 % (11.5-14.5); WBC 2.49 10*3/uL (4.50-10.00)
[2024-09-16 09:18] LABS: Platelet Count 68 10*3/uL (140-440)
[2024-09-16 09:31] LABS: African American GFR (CKD) 21 (>60 ml/min/1.73 sqM); Anion Gap 13 mmol/L; Blood Urea Nitrogen 92 mg/dL (9-20); Calcium 8.7 mg/dL (8.4-10.2); Carbon Dioxide 24 mmol/L (22-30); Chloride 103 mmol/L (98-107); Glucose 127 mg/dL (74-99); Non-African American GFR(CKD) 18 (>60 ml/min/1.73 sqM); Potassium 4.6 mmol/L (3.5-5.1); Sodium 140 mmol/L (137-145)
--- NOTE | 2024-09-16 11:22 | P.PN ---
Subjective HISTORY OF PRESENT ILLNESS: Patient examined this morning at the bedside. Patient currently denies chest pain or pressure. He currently denies shortness of breath. He remains on antibiotics. He continues to report occasional hemoptysis. His Eliquis remains on hold. Hemoglobin 9.1. Creatinine 3.21. PHYSICAL EXAM: VITAL SIGNS: Reviewed. GENERAL: Well-developed in no acute distress. NECK: Supple. No JVD or thyromegaly LUNGS: Respirations even and unlabored. Lungs essentially clear to auscultation bilaterally. HEART: Regular rate and rhythm. S1 and S2 heard. Systolic murmur noted. EXTREMITIES: Normal range of motion. No clubbing or cyanosis. Peripheral pulses intact. No lower extremity edema ASSESSMENT: Right lower lobe pneumonia Acute COPD exacerbation Persistent atrial fibrillation with controlled ventricular rate Hemoptysis Moderate to severe aortic stenosis History of permanent pacemaker implantation secondary to sick sinus syndrome Acute on chronic heart failure with reduced EF, 35 to 40% Ischemic cardiomyopathy Acute on chronic kidney disease PLAN: Eliquis remains on hold secondary to hemoptysis Continue amiodarone, aspirin, Lipitor, metoprolol Lasix, Farxiga remain on hold secondary to kidney function Repeat labs in a.m. Continue telemetry monitoring Further recommendations pending patient course Patient to follow-up in the office with Dr. Post regarding his aortic stenosis Nurse practitioner note has been reviewed by physician. Signing provider agrees with the documented findings, assessment, and plan of care documented by DELI WORKER as a scribe. Objective - Vital Signs Vital signs: Vital Signs Temp 98.2 F 09/16/24 08:00 Pulse 58 L 09/16/24 09:51 Resp 20 09/16/24 08:00 BP 151/90 09/16/24 08:00 Pulse Ox 98 09/16/24 09:28 FiO2 Intake & Output 09/15/24 09/16/24 09/16/24 18:59 06:59 18:59 Intake Total 240 240 Output Total 900 200 Balance -660 -200 240 Weight 91 kg Intake: IV 40 0.9 KVO 40 Oral 200 240 Output: Urine 900 200 Other: Voiding Method Urinal Urinal - Labs CBC & Chem 7: 09/16/24 07:11 09/16/24 07:11 Labs: Abnormal Lab Results - Last 24 Hours (Table) 09/15/24 09/15/24 09/15/24 Range/Units 11:37 16:37 20:12 WBC (4.50-10.00) 10*3/uL RBC (4.40-5.60) 10*6/uL Hgb (13.0-17.0) g/dL Hct (39.6-50.0) % MCH (27.0-32.0) pg MCHC (32.0-37.0) g/dL Plt Count (140-440) 10*3/uL Lymphocytes # (0.90-5.00) 10*3/uL Monocytes # (0.20-1.00) 10*3/uL Eosinophils # (0.04-0.35) 10*3/uL BUN (9-20) mg/dL Creatinine (0.66-1.25) mg/dL Glucose (74-99) mg/dL POC Glucose (mg/dL) 242 H 124 H 162 H (70-110) mg/dL Urine Protein (Negative) Urine Glucose (UA) (Negative) Urine Blood (Negative) Urine RBC (0-5) /hpf Calcium Oxalate Crystal (None) /hpf Amorphous Sediment (None) /hpf Urine Bacteria (None) /hpf Hyaline Casts (0-2) /lpf 09/16/24 09/16/24 09/16/24 Range/Units 04:00 06:04 07:11 WBC 2.49 L (4.50-10.00) 10*3/uL RBC 3.51 L (4.40-5.60) 10*6/uL Hgb 9.1 L (13.0-17.0) g/dL Hct 30.9 L (39.6-50.0) % MCH 25.9 L (27.0-32.0) pg MCHC 29.4 L (32.0-37.0) g/dL Plt Count 68 L (140-440) 10*3/uL Lymphocytes # 0.08 L (0.90-5.00) 10*3/uL Monocytes # 0.05 L (0.20-1.00) 10*3/uL Eosinophils # 0.00 L (0.04-0.35) 10*3/uL BUN (9-20) mg/dL Creatinine (0.66-1.25) mg/dL Glucose (74-99) mg/dL POC Glucose (mg/dL) 148 H (70-110) mg/dL Urine Protein Trace H (Negative) Urine Glucose (UA) Trace H (Negative) Urine Blood Small H (Negative) Urine RBC 6 H (0-5) /hpf Calcium Oxalate Crystal Occasional H (None) /hpf Amorphous Sediment Rare H (None) /hpf Urine Bacteria Occasional H (None) /hpf Hyaline Casts 7 H (0-2) /lpf 09/16/24 Range/Units 07:11 WBC (4.50-10.00) 10*3/uL RBC (4.40-5.60) 10*6/uL Hgb (13.0-17.0) g/dL Hct (39.6-50.0) % MCH (27.0-32.0) pg MCHC (32.0-37.0) g/dL Plt Count (140-440) 10*3/uL Lymphocytes # (0.90-5.00) 10*3/uL Monocytes # (0.20-1.00) 10*3/uL Eosinophils # (0.04-0.35) 10*3/uL BUN 92 H (9-20) mg/dL Creatinine 3.21 H (0.66-1.25) mg/dL Glucose 127 H (74-99) mg/dL POC Glucose (mg/dL) (70-110) mg/dL Urine Protein (Negative) Urine Glucose (UA) (Negative) Urine Blood (Negative) Urine RBC (0-5) /hpf Calcium Oxalate Crystal (None) /hpf Amorphous Sediment (None) /hpf Urine Bacteria (None) /hpf Hyaline Casts (0-2) /lpf Microbiology - Last 24 Hours (Table) 09/14/24 00:28 Gram Stain - Final Sputum Sputum Culture - Final 09/13/24 01:58 Blood Culture - Preliminary Blood
[2024-09-16 11:43] LABS: Glucose,Whole Blood 189 mg/dL (70-110)
--- NOTE | 2024-09-16 12:42 | P.PN ---
Subjective Patient is seen for follow-up of chronic kidney disease and acute kidney injury. Complaining of shortness of breath Currently not on diuretics or IV fluids Maintained on steroids for COPD exacerbation. Renal function is stable with serum creatinine at 3.2 mg/dL today Objective - Vital Signs Vital signs: Vital Signs Temp 98.2 F 09/16/24 08:00 Pulse 58 L 09/16/24 09:51 Resp 20 09/16/24 08:00 BP 151/90 09/16/24 08:00 Pulse Ox 98 09/16/24 09:28 FiO2 Intake & Output 09/15/24 09/16/24 09/16/24 18:59 06:59 18:59 Intake Total 240 240 Output Total 900 200 Balance -660 -200 240 Weight 91 kg Intake: IV 40 0.9 KVO 40 Oral 200 240 Output: Urine 900 200 Other: Voiding Method Urinal Urinal - Exam Patient is awake, comfortable, no acute distress Examination of the heart S1 and S2 Examination of the lungs decreased breath sounds at the bases occasional whe ezing heard Abdomen is soft Examination lower extremity shows 1+ edema WEB PORTAL DEVELOPER exam grossly intact - Labs CBC & Chem 7: 09/16/24 07:11 09/16/24 07:11 Labs: Abnormal Lab Results - Last 24 Hours (Table) 09/15/24 09/15/24 09/16/24 Range/Units 16:37 20:12 04:00 WBC (4.50-10.00) 10*3/uL RBC (4.40-5.60) 10*6/uL Hgb (13.0-17.0) g/dL Hct (39.6-50.0) % MCH (27.0-32.0) pg MCHC (32.0-37.0) g/dL Plt Count (140-440) 10*3/uL Lymphocytes # (0.90-5.00) 10*3/uL Monocytes # (0.20-1.00) 10*3/uL Eosinophils # (0.04-0.35) 10*3/uL BUN (9-20) mg/dL Creatinine (0.66-1.25) mg/dL Glucose (74-99) mg/dL POC Glucose (mg/dL) 124 H 162 H (70-110) mg/dL Urine Protein Trace H (Negative) Urine Glucose (UA) Trace H (Negative) Urine Blood Small H (Negative) Urine RBC 6 H (0-5) /hpf Calcium Oxalate Crystal Occasional H (None) /hpf Amorphous Sediment Rare H (None) /hpf Urine Bacteria Occasional H (None) /hpf Hyaline Casts 7 H (0-2) /lpf 09/16/24 09/16/24 09/16/24 Range/Units 06:04 07:11 07:11 WBC 2.49 L (4.50-10.00) 10*3/uL RBC 3.51 L (4.40-5.60) 10*6/uL Hgb 9.1 L (13.0-17.0) g/dL Hct 30.9 L (39.6-50.0) % MCH 25.9 L (27.0-32.0) pg MCHC 29.4 L (32.0-37.0) g/dL Plt Count 68 L (140-440) 10*3/uL Lymphocytes # 0.08 L (0.90-5.00) 10*3/uL Monocytes # 0.05 L (0.20-1.00) 10*3/uL Eosinophils # 0.00 L (0.04-0.35) 10*3/uL BUN 92 H (9-20) mg/dL Creatinine 3.21 H (0.66-1.25) mg/dL Glucose 127 H (74-99) mg/dL POC Glucose (mg/dL) 148 H (70-110) mg/dL Urine Protein (Negative) Urine Glucose (UA) (Negative) Urine Blood (Negative) Urine RBC (0-5) /hpf Calcium Oxalate Crystal (None) /hpf Amorphous Sediment (None) /hpf Urine Bacteria (None) /hpf Hyaline Casts (0-2) /lpf 09/16/24 Range/Units 11:41 WBC (4.50-10.00) 10*3/uL RBC (4.40-5.60) 10*6/uL Hgb (13.0-17.0) g/dL Hct (39.6-50.0) % MCH (27.0-32.0) pg MCHC (32.0-37.0) g/dL Plt Count (140-440) 10*3/uL Lymphocytes # (0.90-5.00) 10*3/uL Monocytes # (0.20-1.00) 10*3/uL Eosinophils # (0.04-0.35) 10*3/uL BUN (9-20) mg/dL Creatinine (0.66-1.25) mg/dL Glucose (74-99) mg/dL POC Glucose (mg/dL) 189 H (70-110) mg/dL Urine Protein (Negative) Urine Glucose (UA) (Negative) Urine Blood (Negative) Urine RBC (0-5) /hpf Calcium Oxalate Crystal (None) /hpf Amorphous Sediment (None) /hpf Urine Bacteria (None) /hpf Hyaline Casts (0-2) /lpf Microbiology - Last 24 Hours (Table) 09/14/24 00:28 Gram Stain - Final Sputum Sputum Culture - Final 09/13/24 01:58 Blood Culture - Preliminary Blood Assessment and Plan Assessment: 1. Acute kidney injury secondary to ATN from hypotension and sepsis. Nonoliguric. UA shows trace protein and small blood, otherwise unremarkable. Ultrasound on 09/02/2024 did not show any evidence of obstruction. 2. Acute on chronic hypoxic respiratory failure secondary to pneumonia and COPD exacerbation 3. Sepsis from pneumonia 4. Chronic kidney disease stage IV with baseline creatinine about 2.3 mg/dL secondary to nephrosclerosis 4. Cardiomyopathy with EF of 35 to 40% 5. Chronic A-fib 6. History of hepatitis C 7. History of hepatocellular carcinoma Plan: Continue with antibiotics Check bladder scan rule out urine retention Repeat labs in a.m. Avoid nephrotoxic agents Continue off of IV fluids for now.
--- NOTE | 2024-09-16 15:43 | P.PN ---
Subjective Progress Note Date: 09/16/24 This is a 74-year-old male patient with multiple medical problems and coming into the department having chest discomfort, cough, congestion and worsening shortness of breath. He is chronically debilitated and is willing more weak than usual. Denies having any fever. No hemoptysis. No pleurisy. Noted, the patient was hospitalized few days back and the patient was discharged home and his condition decompensated over the past 24 hours. The patient had a follow-up chest x-ray in the emergency department that showed development of new bilateral lower lobe pulmonary filtrates consistent with pneumonia. The patient was hypoxic and his oxygen requirements progressively got worse and is currently on 15 L of oxygen by nasal cannula with a pulse ox of 93%. He typically uses oxygen between 2 and 3 L. He remains in chronic atrial fibrillation. The white cell count is 8.9 with a hemoglobin 11.9 and a platelet count of 142. BUN is 64 with a creatinine of 2.7 and sodium levels at 138. Potassium level is at 4.4. Initial lactic acid level was at 3.1 down to 1.6. Procalcitonin level is pending. proBNP level is 26,100. Troponins at 0.03. Rest of the liver function tests are normal. The viral screen is negative. Based on his clinical presentation, I ordered a noncontrast CAT scan of the chest and the CAT scan showed cardiomegaly, splenomegaly, small bilateral pleural effusion, bibasilar pulmonary consolidation in addition to consolidation of the right middle lobe and the findings are quite suspicious for an underlying pneumonia. The patient accordingly was started on Zosyn and is also on Zithromax. On a separate note, the patient was noted to be hypotensive. He was started on low-dose norepinephrine for hemodynamic support. The patient is currently on norepinephrine running at 0.05 mcg/kg/min. Awake and alert and communicating His comorbidities are multiple and the patient is known to have COPD, chronic stage III kidney disease, congestion heart failure with a ejection fraction of 35 to 40% and the patient has moderate degree of aortic stenosis and mild pulmonary hypertension, chronic A-fib, hypertension, history of pancytopenia as the patient has previous history of hepatitis C and history of hepatocellular carcinoma and he also has previous history of coronary artery disease with previous [place] and hypertension and the patient has a permanent pacemaker in place. Patient was seen today on 09/14/2024, patient remains in the ICU, on 3 L nasal cannula, he has significant pneumonia bilaterally possibly aspiration related or could be hospital-acquired pneumonia. In addition the patient has hemoptysis, I went ahead and held his Eliquis today. Patient is on antibiotics in the form of Zosyn and Zithromax, he is also on bronchodilators, and he is supposed to foll ow-up at [facility] on Saturday for his severe aortic stenosis, however looking at the overall picture, patient is not going to be discharged before Saturday considering the extensiveness of his pneumonia. Hence I will ask the admitting physician to consider transferring the patient to [facility] if possible. In the meantime patient is on antibiotics in the form of Zithromax and Zosyn, and he is on 3 L nasal cannula, not in distress. WBC count is 1.45 hemoglobin 9.2 electrolytes are normal BUN is 75 creatinine 3.36. Seems to be getting worse. Urine Legionella antigen is negative. Patient was seen today on 09/30, on 3 L nasal cannula, remains in the ICU, complaining of difficulty swallowing, patient continues to have bibasilar consolidation, chest x-ray showing slight improvement clinically the patient is about the same but he seems to be more bothered with his difficulty swallowing. Patient remains on antibiotics in the form of Zosyn and Zithromax, he is on b ronchodilators, he does have history of severe aortic stenosis, and he supposedly has an appointment with cardiology at [facility] tomorrow. But this is most likely going to be canceled and he will have to set up another appointment on outpatient basis. WBC count today is 1.59 hemoglobin is 8.7 electrolytes are normal BUN is 85 creatinine 3.33. Again his chest x-ray showed slight improvement in his bilateral pneumonia but definitely not resolved. The patient is seen today September 16, 2024 in follow-up on the selective care unit. He is awake and alert in no acute distress. Sitting up in a chair at the bedside. Maintaining O2 saturations in the 90s on 4 L/min per nasal cannula. H e has been afebrile. Hemodynamically stable. Continues with a loose congested cough. Barium swallow revealed no evidence of aspiration. Blood culture reveals no growth. Sputum culture revealed no growth. White count 2.4. Hemoglobin 9.1. Platelets 68,000. Sodium 140. Potassium 4.6. Bicarb 24. BUN 92. Creatinine 3.21. Glucose 127. He remains on DuoNeb inhalations, Symbicort, Solu-Medrol. Continued on Zosyn. Objective - Vital Signs Vital signs: Vital Signs Temp 98.2 F 09/16/24 08:00 Pulse 58 L 09/16/24 09:51 Resp 20 09/16/24 08:00 BP 151/90 09/16/24 08:00 Pulse Ox 98 09/16/24 09:28 FiO2 Intake & Output 09/15/24 09/16/24 09/16/24 18:59 06:59 18:59 Intake Total 240 598 Output Total 900 200 250 Balance -660 -200 348 Weight 91 kg Intake: IV 40 0.9 KVO 40 Oral 200 598 Output: Urine 900 200 250 Other: Voiding Method Urinal Urinal - Exam GENERAL EXAM: Alert, weak, 74-year-old male, up in a chair, on 4 L nasal cannula, comfortable in no apparent distress. HEAD: Normocephalic. EYES: Normal reaction of pupils, equal size. NOSE: Clear with pink turbinates. THROAT: No erythema or exudates. NECK: No masses, no JVD. CHEST: No chest wall deformity. LUNGS: Equal air entry with bilateral scattered rhonchi, wheeze. CVS: S1 and S2 normal with no audible murmur, regular rhythm. ABDOMEN: No hepatosplenomegaly, normal bowel sounds, no guarding or rigidity. SPINE: No scoliosis or deformity SKIN: No rashes CENTRAL NERVOUS SYSTEM: No focal deficits, tone is normal in all 4 extremities. EXTREMITIES: There is no peripheral edema. No clubbing, no cyanosis. Peripheral pulses are intact. - Labs CBC & Chem 7: 09/16/24 07:11 09/16/24 07:11 Labs: Abnormal Lab Results - Last 24 Hours (Table) 09/15/24 09/15/24 09/16/24 Range/Units 16:37 20:12 04:00 WBC (4.50-10.00) 10*3/uL RBC (4.40-5.60) 10*6/uL Hgb (13.0-17.0) g/dL Hct (39.6-50.0) % MCH (27.0-32.0) pg MCHC (32.0-37.0) g/dL Plt Count (140-440) 10*3/uL Lymphocytes # (0.90-5.00) 10*3/uL Monocytes # (0.20-1.00) 10*3/uL Eosinophils # (0.04-0.35) 10*3/uL BUN (9-20) mg/dL Creatinine (0.66-1.25) mg/dL Glucose (74-99) mg/dL POC Glucose (mg/dL) 124 H 162 H (70-110) mg/dL Urine Protein Trace H (Negative) Urine Glucose (UA) Trace H (Negative) Urine Blood Small H (Negative) Urine RBC 6 H (0-5) /hpf Calcium Oxalate Crystal Occasional H (None) /hpf Amorphous Sediment Rare H (None) /hpf Urine Bacteria Occasional H (None) /hpf Hyaline Casts 7 H (0-2) /lpf 09/16/24 09/16/24 09/16/24 Range/Units 06:04 07:11 07:11 WBC 2.49 L (4.50-10.00) 10*3/uL RBC 3.51 L (4.40-5.60) 10*6/uL Hgb 9.1 L (13.0-17.0) g/dL Hct 30.9 L (39.6-50.0) % MCH 25.9 L (27.0-32.0) pg MCHC 29.4 L (32.0-37.0) g/dL Plt Count 68 L (140-440) 10*3/uL Lymphocytes # 0.08 L (0.90-5.00) 10*3/uL Monocytes # 0.05 L (0.20-1.00) 10*3/uL Eosinophils # 0.00 L (0.04-0.35) 10*3/uL BUN 92 H (9-20) mg/dL Creatinine 3.21 H (0.66-1.25) mg/dL Glucose 127 H (74-99) mg/dL POC Glucose (mg/dL) 148 H (70-110) mg/dL Urine Protein (Negative) Urine Glucose (UA) (Negative) Urine Blood (Negative) Urine RBC (0-5) /hpf Calcium Oxalate Crystal (None) /hpf Amorphous Sediment (None) /hpf Urine Bacteria (None) /hpf Hyaline Casts (0-2) /lpf 09/16/24 Range/Units 11:41 WBC (4.50-10.00) 10*3/uL RBC (4.40-5.60) 10*6/uL Hgb (13.0-17.0) g/dL Hct (39.6-50.0) % MCH (27.0-32.0) pg MCHC (32.0-37.0) g/dL Plt Count (140-440) 10*3/uL Lymphocytes # (0.90-5.00) 10*3/uL Monocytes # (0.20-1.00) 10*3/uL Eosinophils # (0.04-0.35) 10*3/uL BUN (9-20) mg/dL Creatinine (0.66-1.25) mg/dL Glucose (74-99) mg/dL POC Glucose (mg/dL) 189 H (70-110) mg/dL Urine Protein (Negative) Urine Glucose (UA) (Negative) Urine Blood (Negative) Urine RBC (0-5) /hpf Calcium Oxalate Crystal (None) /hpf Amorphous Sediment (None) /hpf Urine Bacteria (None) /hpf Hyaline Casts (0-2) /lpf Microbiology - Last 24 Hours (Table) 09/13/24 01:58 Blood Culture - Preliminary Blood 09/14/24 00:28 Gram Stain - Final Sputum Sputum Culture - Final Assessment and Plan Assessment: Acute on chronic hypoxic respiratory failure Acute bilateral pneumonia could be aspiration pneumonia or could be hospital- acquired pneumonia Acute sepsis and hypotension with leukocytosis secondary to above Chronic systolic congestive heart failure ejection fraction of 35 to 40% in addition patient has moderate severe aortic stenosis Chronic atrial fibrillation Severe underlying COPD FEV1 of 59% Chronic kidney disease stage III History of pacemaker implantation History of hypertension History of hepatitis C 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 Continue DuoNeb inhalations Continue Symbicort Continue Solu-Medrol Continue Zosyn Titrate the FiO2 as tolerated Increase his activity as tolerated We will continue to follow I have personally seen and examined the patient, performed the documentation and the assessment and plan as written. Number of minutes spent on the visit: 10 Dictation was produced using [employer] dictation software. Please excuse any grammatical, word or spelling errors.
[2024-09-16 16:29] LABS: Glucose,Whole Blood 196 mg/dL (70-110)
--- NOTE | 2024-09-16 19:08 | P.PN ---
Subjective Progress Note Date: 09/16/24 74-year-old male, history of COPD, CAD/CHF, aortic stenosis, atrial fibrillation, hypertension, CKD, presents to ED with complaint chest discomfort and worsening shortness of breath. He is chronically debilitated and is willing more weak than usual; patient was hospitalized few days back and the patient was discharged home and his condition decompensated over the past 24 hours. The patient was hypoxic and his oxygen requirements progressively got worse and is currently on 15 L of oxygen by nasal cannula with a pulse ox of 93%. He typically uses oxygen between 2 and 3 L. Chest x-ray in the emergency department that showed development of new bilateral lower lobe pulmonary filtrates consistent with pneumonia. - The white cell count is 8.9 with a hemoglobin 11.9 and a platelet count of 142. BUN is 64 with a creatinine of 2.7 and sodium levels at 138. Potassium level is at 4.4. Initial lactic acid level was at 3.1 down to 1.6. Procalcitonin level is pending. proBNP level is 26,100. Troponins at 0.03. Rest of the liver function tests are normal. The viral screen is negative. -CAT scan showed cardiomegaly, splenomegaly, small bilateral pleural effusion, bibasilar pulmonary consolidation in addition to consolidation of the right middle lobe and the findings are quite suspicious for an underlying pneumonia. The patient was started on Zosyn and is also on Zithromax per pulmonary recommendation. While in ED, the patient was noted to be hypotensive. He was started on low-dose norepinephrine for hemodynamic support. The patient is currently on norepinephrine running at 0.05 mcg/kg/min. Awake and alert and communicating 09/14/2024 Patient is seen in follow-up today in the ICU with pulmonary and cardiology following for pneumonia and CHF exacerbation. Patient currently on 3 L via nasal continues with extensive pneumonia maintained on Zithromax. Ceftriaxone was discontinued per pulmonary and started on Zosyn. Preliminary blood cultures are no growth and sputum culture is ordered and pending at this time. Patient's kidney functions are elevated above 3 creatinine and will consult nephrology and appreciate input and recommendations. Pulmonary global security architect recommending possible transfer for tertiary treatment as patient was scheduled to undergo cardiac intervention at [facility] and feels he would benefit from being evaluated by them continuing care for his surgical procedure. Pretesting was to be done on this Saturday regarding CAT scans, blood work, further imaging. Given patient's extensive comorbidities and ongoing issues would recommend transfer to tertiary treatment. Will attempt to contact transfer center to discuss possible transfer. 09/15/2024. Patient is seen in follow-up today continues in the ICU although is a downgrade to 3 S. once a bed becomes available. Patient continues on 3 L with pulmonary and cardiology following maintained on antibiotics and sputum culture remains pending. Creatinine is 3.33 nephrology consulted and appreciate input and recommendations regarding acute on chronic kidney disease with L[place]. Patient is afebrile although reports continued shortness of breath. Patient was scheduled for outpatient testing for further surgical intervention with [facility] this Saturday although will likely need to be rescheduled. Patient does not appear to be a good surgical candidate and is high risk given significant comorbidities. Encouraged to increase activity as tolerated and patient is reporting significant difficulty and pain with swallowing. Speech is consulted and will likely undergo swallow study 09/16/2024 Patient is seen and evaluated in follow-up reporting he does not feel well and continues to be short of breath and reporting continued difficulty with swallowing although underwent modified barium swallow study and is recommended to continue on current regimen and soft foods. Patient white count remains low although slightly improved at 2.49, hemoglobin is stable at 9.1 although co ntinues to report coughing and spitting up blood at times. Eliquis remains on hold and platelet count is low at 68. Sodium 140 with a potassium of 4.6, BUN 92 and creatinine is 3.21. Nephrology following along with pulmonary, cardiology and continued on IV steroids along with breathing treatments. Review of systems: Constitutional: No reports of fatigue, fever, or chills Cardiovascular: No reports of chest pain or palpitations Respiratory: reports of continued shortness of breath and persistent cough GI: No reports of nausea, vomiting, or diarrhea, reports not much of an appetite and still having difficulties with swallowing things, eating only soft foods on occasion : No reports of dysuria or retention Neurovascular: reports of generalized weakness All medications have been reviewed Physical exam: Gen: This is a 74-year-old male who is awake, alert and oriented x 3, thin buil t, elderly appearing, ill-appearing HEENT: Head is atraumatic, normocephalic. Pupils equal, round. Sclerae is anicteric. NECK: Supple. No JVD. No lymphadenopathy. No thyromegaly. LUNGS: Diminished breath sounds bilaterally with coarse scattered rhonchi noted. No intercostal retractions. HEART: S1, S2 are muffled ABDOMEN: Soft. Mildly distended, bowel sounds are present. No masses. No tenderness. EXTREMITIES: No pedal edema. No calf tenderness. Mild bilateral lower extremity edema noted NEUROLOGICAL: Patient is awake, alert and oriented x3. Cranial nerves 2 through 12 are grossly intact. Diffusely weak Assessment: -Acute bilateral lower lobe pneumonia/likely gram-negative pneumonia of the right lung base, with sepsis present on admission, cultures thus far negative -Acute on chronic hypoxic respiratory failure; currently on 3 L of oxygen by nasal cannula -Acute hypotension; likely secondary to sepsis and the patient was on low-dose norepinephrine which has been discontinued. -Acute exacerbation COPD -Chronic systolic heart failure. Most recent EF revealing impaired LV function with an EF of 35 to 40% with moderate degree of aortic valve stenosis. Aortic dilatation at the level of the root also noted with moderate RV dilatation and mild pulmonary hypertension -Chronic atrial fibrillation, currently rate controlled, maintained on anticoagulation with Eliquis -Chronic stage III kidney disease, with acute [place], worsening kidney functions -History of implantation of permanent pacemaker. -History of hepatitis C/chronic liver disease/hepatocellular carcinoma. 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 -Hepatocellular carcinoma. GI prophylaxis DVT prophylaxis; SCDs/systemic anticoagulation DNR Plan: Patient was recently transferred out of the ICU with multiple consultations following including cardiology, nephrology, pulmonary. Patient continues on IV steroids and [id number] breathing treatments along with supplemental oxygen. Patient continues to report shortness of breath with minimal exertion and continued cough with occasional bleeding noted. Eliquis is on hold and sputum culture thus far is negative and hemoglobin is stable above 9. Consulted nephrology for acute on chronic kidney disease with worsening kidney functions and appreciate input and recommendations Patient is pancytopenic secondary to chronic liver disease also underlying infection with noted thrombocytopenia and leukopenia. May need hematology c onsult if numbers do not improve Follow-up on repeat labs and replace electrolytes per protocol There was discussion of possible transfer for tertiary treatment to [facility] and patient will likely need to reschedule upcoming testing for possible cardiology intervention at [facility] later date. Patient will not be accepted for transfer at this time Encouraged increased activity as tolerated. Patient underwent swallow study with no signs of aspiration although continues to have difficulty with swallowing, recommend soft and/or liquid diet as tolerated Due to multiple complex medical issues, overall prognosis is extremely guarded The impression and plan of care has been dictated by Marie Inman, Nurse Practitioner as directed. Dr. Golden MD I have performed a history and examination and MDM of this patient, discussed the same with the dictator, and agree with the dictator's assessment and plan as written ,documented as a scribe. Based on total visit time, I have performed more than 50% of the visit. Objective - Vital Signs Vital signs: Vital Signs Temp 98.2 F 09/16/24 08:00 Pulse 80 09/16/24 17:17 Resp 20 09/16/24 14:00 BP 151/90 09/16/24 08:00 Pulse Ox 98 09/16/24 09:28 FiO2 Intake & Output 09/15/24 09/16/24 09/16/24 18:59 06:59 18:59 Intake Total 240 598 Output Total 900 200 250 Balance -660 -200 348 Weight 91 kg Intake: IV 40 0.9 KVO 40 Oral 200 598 Output: Urine 900 200 250 Other: Voiding Method Urinal Urinal Urinal - Labs CBC & Chem 7: 09/16/24 07:11 09/16/24 07:11 Labs: Abnormal Lab Results - Last 24 Hours (Table) 09/15/24 09/16/24 09/16/24 Range/Units 20:12 04:00 06:04 WBC (4.50-10.00) 10*3/uL RBC (4.40-5.60) 10*6/uL Hgb (13.0-17.0) g/dL Hct (39.6-50.0) % MCH (27.0-32.0) pg MCHC (32.0-37.0) g/dL Plt Count (140-440) 10*3/uL Lymphocytes # (0.90-5.00) 10*3/uL Monocytes # (0.20-1.00) 10*3/uL Eosinophils # (0.04-0.35) 10*3/uL BUN (9-20) mg/dL Creatinine (0.66-1.25) mg/dL Glucose (74-99) mg/dL POC Glucose (mg/dL) 162 H 148 H (70-110) mg/dL Urine Protein Trace H (Negative) Urine Glucose (UA) Trace H (Negative) Urine Blood Small H (Negative) Urine RBC 6 H (0-5) /hpf Calcium Oxalate Crystal Occasional H (None) /hpf Amorphous Sediment Rare H (None) /hpf Urine Bacteria Occasional H (None) /hpf Hyaline Casts 7 H (0-2) /lpf 09/16/24 09/16/24 09/16/24 Range/Units 07:11 07:11 11:41 WBC 2.49 L (4.50-10.00) 10*3/uL RBC 3.51 L (4.40-5.60) 10*6/uL Hgb 9.1 L (13.0-17.0) g/dL Hct 30.9 L (39.6-50.0) % MCH 25.9 L (27.0-32.0) pg MCHC 29.4 L (32.0-37.0) g/dL Plt Count 68 L (140-440) 10*3/uL Lymphocytes # 0.08 L (0.90-5.00) 10*3/uL Monocytes # 0.05 L (0.20-1.00) 10*3/uL Eosinophils # 0.00 L (0.04-0.35) 10*3/uL BUN 92 H (9-20) mg/dL Creatinine 3.21 H (0.66-1.25) mg/dL Glucose 127 H (74-99) mg/dL POC Glucose (mg/dL) 189 H (70-110) mg/dL Urine Protein (Negative) Urine Glucose (UA) (Negative) Urine Blood (Negative) Urine RBC (0-5) /hpf Calcium Oxalate Crystal (None) /hpf Amorphous Sediment (None) /hpf Urine Bacteria (None) /hpf Hyaline Casts (0-2) /lpf 09/16/24 Range/Units 16:27 WBC (4.50-10.00) 10*3/uL RBC (4.40-5.60) 10*6/uL Hgb (13.0-17.0) g/dL Hct (39.6-50.0) % MCH (27.0-32.0) pg MCHC (32.0-37.0) g/dL Plt Count (140-440) 10*3/uL Lymphocytes # (0.90-5.00) 10*3/uL Monocytes # (0.20-1.00) 10*3/uL Eosinophils # (0.04-0.35) 10*3/uL BUN (9-20) mg/dL Creatinine (0.66-1.25) mg/dL Glucose (74-99) mg/dL POC Glucose (mg/dL) 196 H (70-110) mg/dL Urine Protein (Negative) Urine Glucose (UA) (Negative) Urine Blood (Negative) Urine RBC (0-5) /hpf Calcium Oxalate Crystal (None) /hpf Amorphous Sediment (None) /hpf Urine Bacteria (None) /hpf Hyaline Casts (0-2) /lpf Microbiology - Last 24 Hours (Table) 09/13/24 01:58 Blood Culture - Preliminary Blood 09/14/24 00:28 Gram Stain - Final Sputum Sputum Culture - Final
[2024-09-16 19:37] LABS: INR 1.2 (<1.2); Partial Thromboplastin Time 26.3 sec (22.0-30.0); Prothrombin Time 12.9 sec (10.0-12.5)
[2024-09-16] MEDS: SYMBICORT 160-4.5 MCG INHALER INHALATION SCH (19:53)
[2024-09-16 20:14] LABS: Glucose,Whole Blood 187 mg/dL (70-110)
[2024-09-17 06:06] LABS: Glucose,Whole Blood 137 mg/dL (70-110)
--- NOTE | 2024-09-17 07:58 | XR ---
EXAMINATION TYPE: XR chest 1V portable DATE OF EXAM: 09/17/2024 6:49 AM COMPARISON: Chest radiographs from 09/15/2024 CLINICAL INDICATION: Male, 74 years old with history of Pneumonia; TECHNIQUE: XR chest 1V portable Frontal view of the chest. FINDINGS: Lungs/Pleura: Similar right basilar airspace opacities. No evidence of pneumothorax or pleural effusi on. Pulmonary vascularity: Unremarkable. Heart/mediastinum: Cardiomediastinal silhouette is unremarkable. Musculoskeletal: No acute osseous pathology. Other findings: None IMPRESSION: Similar right basilar airspace opacities airspace opacities. [facility], , 09/17/2024 7:56 AM
[2024-09-17 07:59] LABS: HCT 30.4 % (39.6-50.0); HGB 9.1 g/dL (13.0-17.0); Lymphocytes # (A) 0.08 10*3/uL (0.90-5.00); Lymphocytes % (A) 3.3 %; MCHC 29.9 g/dL (32.0-37.0); MCV 86.9 fL (80.0-97.0); Monocytes # (A) 0.06 10*3/uL (0.20-1.00); Monocytes % (A) 2.5 %; Neutrophils # (A) 2.25 10*3/uL (1.80-7.70); Neutrophils % (A) 93.4 %; RDW 17.2 % (11.5-14.5); WBC 2.41 10*3/uL (4.50-10.00)
[2024-09-17 08:08] LABS: African American GFR (CKD) 23 (>60 ml/min/1.73 sqM); Anion Gap 14 mmol/L; Blood Urea Nitrogen 100 mg/dL (9-20); Calcium 8.9 mg/dL (8.4-10.2); Carbon Dioxide 24 mmol/L (22-30); Chloride 100 mmol/L (98-107); Glucose 124 mg/dL (74-99); Non-African American GFR(CKD) 20 (>60 ml/min/1.73 sqM); Potassium 4.5 mmol/L (3.5-5.1); Sodium 138 mmol/L (137-145)
[2024-09-17 11:13] LABS: Glucose,Whole Blood 204 mg/dL (70-110)
[2024-09-17 11:22] LABS: Platelet Count 67 10*3/uL (140-440)
--- NOTE | 2024-09-17 12:41 | P.PN ---
Subjective HISTORY OF PRESENT ILLNESS: Patient examined this morning at the bedside. Patient currently denies chest pain or pressure. He currently denies shortness of breath. He remains on antibiotics. He continues to report occasional hemoptysis. His Eliquis remains on hold. Hemoglobin 9.1. Creatinine 3.21. 09/17/2024 Patient examined this morning. Patient is currently sitting up in the chair. Patient currently denies chest pain or pressure. He remains on IV steroids and antibiotics per pulmonary medicine. Telemetry reveals atrial fibrillation with a heart rate in the 90s. Creatinine today 2.98, down from 3.21. PHYSICAL EXAM: VITAL SIGNS: Reviewed. GENERAL: Well-developed in no acute distress. NECK: Supple. No JVD or thyromegaly LUNGS: Respirations even and unlabored. Lungs essentially clear to auscultation bilaterally. HEART: Irregular rate and rhythm. S1 and S2 heard. Systolic murmur noted. EXTREMITIES: Normal range of motion. No clubbing or cyanosis. Peripheral pulses intact. No lower extremity edema ASSESSMENT: Right lower lobe pneumonia Acute COPD exacerbation Persistent atrial fibrillation with controlled ventricular rate Hemoptysis Moderate to severe aortic stenosis History of permanent pacemaker implantation secondary to sick sinus syndrome Acute on chronic heart failure with reduced EF, 35 to 40% Ischemic cardiomyopathy Acute on chronic kidney disease PLAN: Eliquis remains on hold secondary to hemoptysis Continue amiodarone, aspirin, Lipitor, metoprolol Lasix, Farxiga remain on hold secondary to kidney function Repeat labs in a.m. Continue telemetry monitoring Further recommendations pending patient course Patient to follow-up in the office with Dr. Post regarding his aortic stenosis Nurse practitioner note has been reviewed by physician. Signing provider agrees with the documented findings, assessment, and plan of care documented by [employer] as a scribe. Objective - Vital Signs Vital signs: Vital Signs Temp 97.4 F L 09/17/24 08:59 Pulse 82 09/17/24 11:39 Resp 16 09/17/24 11:39 BP 136/88 09/17/24 11:39 Pulse Ox 97 09/17/24 11:39 FiO2 Intake & Output 09/16/24 09/17/24 09/17/24 18:59 06:59 18:59 Intake Total 838 540 472 Output Total 475 800 250 Balance 363 -260 222 Weight 91.2 kg Intake: Oral 838 540 472 Output: Urine 475 800 250 Other: Voiding Method Urinal Urinal # Bowel Movements 1 - Labs CBC & Chem 7: 09/17/24 07:05 09/17/24 07:05 Labs: Abnormal Lab Results - Last 24 Hours (Table) 09/16/24 09/16/24 09/16/24 Range/Units 16:27 18:43 20:14 WBC (4.50-10.00) 10*3/uL RBC (4.40-5.60) 10*6/uL Hgb (13.0-17.0) g/dL Hct (39.6-50.0) % MCH (27.0-32.0) pg MCHC (32.0-37.0) g/dL Plt Count (140-440) 10*3/uL Lymphocytes # (0.90-5.00) 10*3/uL Monocytes # (0.20-1.00) 10*3/uL Eosinophils # (0.04-0.35) 10*3/uL PT 12.9 H (10.0-12.5) sec INR 1.2 H (<1.2) BUN (9-20) mg/dL Creatinine (0.66-1.25) mg/dL Glucose (74-99) mg/dL POC Glucose (mg/dL) 196 H 187 H (70-110) mg/dL 09/17/24 09/17/24 09/17/24 Range/Units 06:04 07:05 07:05 WBC 2.41 L (4.50-10.00) 10*3/uL RBC 3.50 L (4.40-5.60) 10*6/uL Hgb 9.1 L (13.0-17.0) g/dL Hct 30.4 L (39.6-50.0) % MCH 26.0 L (27.0-32.0) pg MCHC 29.9 L (32.0-37.0) g/dL Plt Count 67 L (140-440) 10*3/uL Lymphocytes # 0.08 L (0.90-5.00) 10*3/uL Monocytes # 0.06 L (0.20-1.00) 10*3/uL Eosinophils # 0.00 L (0.04-0.35) 10*3/uL PT (10.0-12.5) sec INR (<1.2) BUN 100 H (9-20) mg/dL Creatinine 2.98 H (0.66-1.25) mg/dL Glucose 124 H (74-99) mg/dL POC Glucose (mg/dL) 137 H (70-110) mg/dL 09/17/24 Range/Units 11:12 WBC (4.50-10.00) 10*3/uL RBC (4.40-5.60) 10*6/uL Hgb (13.0-17.0) g/dL Hct (39.6-50.0) % MCH (27.0-32.0) pg MCHC (32.0-37.0) g/dL Plt Count (140-440) 10*3/uL Lymphocytes # (0.90-5.00) 10*3/uL Monocytes # (0.20-1.00) 10*3/uL Eosinophils # (0.04-0.35) 10*3/uL PT (10.0-12.5) sec INR (<1.2) BUN (9-20) mg/dL Creatinine (0.66-1.25) mg/dL Glucose (74-99) mg/dL POC Glucose (mg/dL) 204 H (70-110) mg/dL Microbiology - Last 24 Hours (Table) 09/13/24 01:58 Blood Culture - Preliminary Blood 09/14/24 00:28 Gram Stain - Final Sputum Sputum Culture - Final
--- NOTE | 2024-09-17 14:28 | P.PN ---
Subjective Patient is seen for follow-up of chronic kidney disease and acute kidney injury. Currently not on diuretics or IV fluids Maintained on steroids for COPD exacerbation. Renal function improved with serum creatinine down to 2.9 Objective - Vital Signs Vital signs: Vital Signs Temp 97.4 F L 09/17/24 08:59 Pulse 82 09/17/24 11:39 Resp 16 09/17/24 11:39 BP 136/88 09/17/24 11:39 Pulse Ox 97 09/17/24 11:39 FiO2 Intake & Output 09/16/24 09/17/24 09/17/24 18:59 06:59 18:59 Intake Total 838 540 472 Output Total 475 800 250 Balance 363 -260 222 Weight 91.2 kg Intake: Oral 838 540 472 Output: Urine 475 800 250 Other: Voiding Method Urinal Urinal Urinal # Bowel Movements 1 - Exam Patient is awake, comfortable, no acute distress Examination of the heart S1 and S2 Examination of the lungs decreased breath sounds at the bases occasional wheezing heard Abdomen is soft Examination lower extremity shows 1+ edema [employer]SPORTATION DISPATCH MANAGER exam grossly intact - Labs CBC & Chem 7: 09/17/24 07:05 09/17/24 07:05 Labs: Abnormal Lab Results - Last 24 Hours (Table) 09/16/24 09/16/24 09/16/24 Range/Units 16:27 18:43 20:14 WBC (4.50-10.00) 10*3/uL RBC (4.40-5.60) 10*6/uL Hgb (13.0-17.0) g/dL Hct (39.6-50.0) % MCH (27.0-32.0) pg MCHC (32.0-37.0) g/dL Plt Count (140-440) 10*3/uL Lymphocytes # (0.90-5.00) 10*3/uL Monocytes # (0.20-1.00) 10*3/uL Eosinophils # (0.04-0.35) 10*3/uL PT 12.9 H (10.0-12.5) sec INR 1.2 H (<1.2) BUN (9-20) mg/dL Creatinine (0.66-1.25) mg/dL Glucose (74-99) mg/dL POC Glucose (mg/dL) 196 H 187 H (70-110) mg/dL 09/17/24 09/17/24 09/17/24 Range/Units 06:04 07:05 07:05 WBC 2.41 L (4.50-10.00) 10*3/uL RBC 3.50 L (4.40-5.60) 10*6/uL Hgb 9.1 L (13.0-17.0) g/dL Hct 30.4 L (39.6-50.0) % MCH 26.0 L (27.0-32.0) pg MCHC 29.9 L (32.0-37.0) g/dL Plt Count 67 L (140-440) 10*3/uL Lymphocytes # 0.08 L (0.90-5.00) 10*3/uL Monocytes # 0.06 L (0.20-1.00) 10*3/uL Eosinophils # 0.00 L (0.04-0.35) 10*3/uL PT (10.0-12.5) sec INR (<1.2) BUN 100 H (9-20) mg/dL Creatinine 2.98 H (0.66-1.25) mg/dL Glucose 124 H (74-99) mg/dL POC Glucose (mg/dL) 137 H (70-110) mg/dL 09/17/24 Range/Units 11:12 WBC (4.50-10.00) 10*3/uL RBC (4.40-5.60) 10*6/uL Hgb (13.0-17.0) g/dL Hct (39.6-50.0) % MCH (27.0-32.0) pg MCHC (32.0-37.0) g/dL Plt Count (140-440) 10*3/uL Lymphocytes # (0.90-5.00) 10*3/uL Monocytes # (0.20-1.00) 10*3/uL Eosinophils # (0.04-0.35) 10*3/uL PT (10.0-12.5) sec INR (<1.2) BUN (9-20) mg/dL Creatinine (0.66-1.25) mg/dL Glucose (74-99) mg/dL POC Glucose (mg/dL) 204 H (70-110) mg/dL Microbiology - Last 24 Hours (Table) 09/13/24 01:58 Blood Culture - Preliminary Blood Assessment and Plan Assessment: 1. Acute kidney injury secondary to ATN from hypotension and sepsis. Nonoliguric. UA shows trace protein and small blood, otherwise unremarkable. Ultrasound on 09/02/2024 did not show any evidence of obstruction. 2. Acute on chronic hypoxic respiratory failure secondary to pneumonia and COPD exacerbation 3. Sepsis from pneumonia 4. Chronic kidney disease stage IV with baseline creatinine about 2.3 mg/dL secondary to nephrosclerosis 4. Cardiomyopathy with EF of 35 to 40% 5. Chronic A-fib 6. History of hepatitis C 7. History of hepatocellular carcinoma Plan: Resume home dose of oral Lasix in 1 to 2 days Continue with antibiotics Repeat labs in a.m. Avoid nephrotoxic agents
--- NOTE | 2024-09-17 14:51 | P.PN ---
Subjective Progress Note Date: 09/17/24 Principal diagnosis: Acute bilateral pneumonia, possibly hospital-acquired with acute on chronic hypoxic respiratory failure This is a 74-year-old male patient with multiple medical problems and coming into the department having chest discomfort, cough, congestion and worsening shortness of breath. He is chronically debilitated and is willing more weak than usual. Denies having any fever. No hemoptysis. No pleurisy. Noted, the patient was hospitalized few days back and the patient was discharged home and his condition decompensated over the past 24 hours. The patient had a follow-up chest x-ray in the emergency department that showed development of new bilateral lower lobe pulmonary filtrates consistent with pneumonia. The patient was hypoxic and his oxygen requirements progressively got worse and is currently on 15 L of oxygen by nasal cannula with a pulse ox of 93%. He typically uses oxygen between 2 and 3 L. He remains in chronic atrial fibrillation. The white cell count is 8.9 with a hemoglobin 11.9 and a platelet count of 142. BUN is 64 with a creatinine of 2.7 and sodium levels at 138. Potassium level is at 4.4. Initial lactic acid level was at 3.1 down to 1.6. Procalcitonin level is pending. proBNP level is 26,100. Troponins at 0.03. Rest of the liver function tests are normal. The viral screen is negative. Based on his clinical presentation, I ordered a noncontrast CAT scan of the chest and the CAT scan showed cardiomegaly, splenomegaly, small bilateral pleural effusion, bibasilar pulmonary consolidation in addition to consolidation of the right middle lobe and the findings are quite suspicious for an underlying pneumonia. The patient accordingly was started on Zosyn and is also on Zithromax. On a separate note, the patient was noted to be hypotensive. He was started on low-dose norepinephrine for hemodynamic support. The patient is currently on norepinephrine running at 0.05 mcg/kg/min. Awake and alert and communicating His comorbidities are multiple and the patient is known to have COPD, chronic stage III kidney disease, congestion heart failure with a ejection fraction of 35 to 40% and the patient has moderate degree of aortic stenosis and mild pulmonary hypertension, chronic A-fib, hypertension, history of pancytopenia as the patient has previous history of hepatitis C and history of hepatocellular ca rcinoma and he also has previous history of coronary artery disease with previous TN and hypertension and the patient has a permanent pacemaker in place. Patient was seen today on 09/14/2024, patient remains in the ICU, on 3 L nasal cannula, he has significant pneumonia bilaterally possibly aspiration related or could be hospital-acquired pneumonia. In addition the patient has hemoptysis, I went ahead and held his Eliquis today. Patient is on antibiotics in the form of Zosyn and Zithromax, he is also on bronchodilators, and he is supposed to follow-up at [facility] on Saturday for his severe aortic stenosis, however looking at the overall picture, patient is not going to be discharged before Saturday considering the extensiveness of his pneumonia. Hence I will ask the admitting physician to consider transferring the patient to [facility] if possible. In the meantime patient is on antibiotics in the form of Zithromax and Zosyn, and he is on 3 L nasal cannula, not in distress. WBC count is 1.45 hemoglobin 9.2 electrolytes are normal BUN is 75 creatinine 3.36. Seems to be getting worse. Urine Legionella antigen is negative. Patient was seen today on 09/15/24, on 3 L nasal cannula, remains in the ICU, complaining of difficulty swallowing, patient continues to have bibasilar consolidation, chest x-ray showing slight improvement clinically the patient is about the same but he seems to be more bothered with his difficulty swallowing. Patient remains on antibiotics in the form of Zosyn and Zithromax, he is on bronchodilators, he does have history of severe aortic stenosis, and he supposedly has an appointment with cardiology at [facility] tomorrow. But this is most likely going to be canceled and he will have to set up another appointment on outpatient basis. WBC count today is 1.59 hemoglobin is 8.7 electrolytes are normal BUN is 85 creatinine 3.33. Again his chest x-ray showed slight improvement in his bilateral pneumonia but definitely not resolved. Patient was seen today on 09/17/2024, patient continues to do poorly, not making a significant improvement, remains on Zosyn, sputum cultures are nondiagnostic patient continues to have blood-tinged sputum chest x-ray continues to show bilateral pneumonia. WBC count is 2.41, hemoglobin is 9.1 electrolytes are normal BUN is 100 creatinine 2.98. Objective - Vital Signs Vital signs: Vital Signs Temp 97.4 F L 09/17/24 08:59 Pulse 82 09/17/24 11:39 Resp 16 09/17/24 11:39 BP 136/88 09/17/24 11:39 Pulse Ox 97 09/17/24 11:39 FiO2 Intake & Output 09/16/24 09/17/24 09/17/24 18:59 06:59 18:59 Intake Total 838 540 472 Output Total 475 800 250 Balance 363 -260 222 Weight 91.2 kg Intake: Oral 838 540 472 Output: Urine 475 800 250 Other: Voiding Method Urinal Urinal Urinal # Bowel Movements 1 - Exam Physical exam reveals 74-year-old white male in no distress, on 3 L nasal cannula patient looks frail and chronically ill Head: Atraumatic normocephalic HEENT: PERRLA, EOMI, nonicteric no neck masses no JVD Mild carotid bruit, systolic murmur radiating to carotids elevated jugular venous distention. Lungs: Crackles and rhonchi noted bilaterally Heart: Irregular pulse, 3/6 systolic murmur Abdomen: Soft nontender, positive bowel sounds. Extremities: 1+ lower extremity edema Neuro: Alert oriented x 3 no gross focal deficit Psychiatric: Normal mood affect and no mental status examination Skin: No rashes - Labs CBC & Chem 7: 09/17/24 07:05 09/17/24 07:05 Labs: Abnormal Lab Results - Last 24 Hours (Table) 09/16/24 09/16/24 09/16/24 Range/Units 16:27 18:43 20:14 WBC (4.50-10.00) 10*3/uL RBC (4.40-5.60) 10*6/uL Hgb (13.0-17.0) g/dL Hct (39.6-50.0) % MCH (27.0-32.0) pg MCHC (32.0-37.0) g/dL Plt Count (140-440) 10*3/uL Lymphocytes # (0.90-5.00) 10*3/uL Monocytes # (0.20-1.00) 10*3/uL Eosinophils # (0.04-0.35) 10*3/uL PT 12.9 H (10.0-12.5) sec INR 1.2 H (<1.2) BUN (9-20) mg/dL Creatinine (0.66-1.25) mg/dL Glucose (74-99) mg/dL POC Glucose (mg/dL) 196 H 187 H (70-110) mg/dL 09/17/24 09/17/24 09/17/24 Range/Units 06:04 07:05 07:05 WBC 2.41 L (4.50-10.00) 10*3/uL RBC 3.50 L (4.40-5.60) 10*6/uL Hgb 9.1 L (13.0-17.0) g/dL Hct 30.4 L (39.6-50.0) % MCH 26.0 L (27.0-32.0) pg MCHC 29.9 L (32.0-37.0) g/dL Plt Count 67 L (140-440) 10*3/uL Lymphocytes # 0.08 L (0.90-5.00) 10*3/uL Monocytes # 0.06 L (0.20-1.00) 10*3/uL Eosinophils # 0.00 L (0.04-0.35) 10*3/uL PT (10.0-12.5) sec INR (<1.2) BUN 100 H (9-20) mg/dL Creatinine 2.98 H (0.66-1.25) mg/dL Glucose 124 H (74-99) mg/dL POC Glucose (mg/dL) 137 H (70-110) mg/dL 09/17/24 Range/Units 11:12 WBC (4.50-10.00) 10*3/uL RBC (4.40-5.60) 10*6/uL Hgb (13.0-17.0) g/dL Hct (39.6-50.0) % MCH (27.0-32.0) pg MCHC (32.0-37.0) g/dL Plt Count (140-440) 10*3/uL Lymphocytes # (0.90-5.00) 10*3/uL Monocytes # (0.20-1.00) 10*3/uL Eosinophils # (0.04-0.35) 10*3/uL PT (10.0-12.5) sec INR (<1.2) BUN (9-20) mg/dL Creatinine (0.66-1.25) mg/dL Glucose (74-99) mg/dL POC Glucose (mg/dL) 204 H (70-110) mg/dL Microbiology - Last 24 Hours (Table) 09/13/24 01:58 Blood Culture - Preliminary Blood Assessment and Plan Assessment: Impression: Acute on chronic hypoxic respiratory failure Acute bilateral pneumonia could be aspiration pneumonia or could be hospital- acquired pneumonia Acute sepsis and hypotension with leukocytosis secondary to above Chronic systolic congestive heart failure ejection fraction of 35 to 40% in addition patient has moderate severe aortic stenosis Chronic atrial fibrillation Severe underlying COPD FEV1 of 59% Chronic kidney disease stage III History of pacemaker implantation History of hypertension History of hepatitis C 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
[2024-09-17 16:12] LABS: Glucose,Whole Blood 256 mg/dL (70-110)
[2024-09-17] MEDS ORDERED: DEXTROSE 50% SYRINGE 50 ML IVP PRN ×2 (17:49)
[2024-09-17] MEDS: methylPREDNISolone SOD SUCCI 125 MG/2 ML VIAL IV SCH (18:11)
[2024-09-17] MEDS: INSULIN LISPRO (HumaLOG) 100 UNIT/ML 10 mL VL SQ SCH (18:13)
[2024-09-17 20:11] LABS: Glucose,Whole Blood 234 mg/dL (70-110)
[2024-09-17] MEDS: FORMOTEROL FUMARATE 20 MCG/2 ML NEBU INHALATION SCH (20:32)
[2024-09-17] MEDS: BUDESONIDE 1 MG/2 ML NEBU INHALATION SCH (20:32)
[2024-09-18] MEDS: PIPERACILLIN-TAZOBACTAM 3.375 GM in SODIUM CHLORIDE 0.9% 100 ML IVPB SCH (04:46)
--- NOTE | 2024-09-18 05:33 | P.PN ---
Subjective Progress Note Date: 09/17/24 74-year-old male, history of COPD, CAD/CHF, aortic stenosis, atrial fibrillation, hypertension, CKD, presents to ED with complaint chest discomfort and worsening shortness of breath. He is chronically debilitated and is willing more weak than usual; patient was hospitalized few days back and the patient was discharged home and his condition decompensated over the past 24 hours. The patient was hypoxic and his oxygen requirements progressively got worse and is currently on 15 L of oxygen by nasal cannula with a pulse ox of 93%. He typically uses oxygen between 2 and 3 L. Chest x-ray in the emergency department that showed development of new bilateral lower lobe pulmonary filtrates consistent with pneumonia. - The white cell count is 8.9 with a hemoglobin 11.9 and a platelet count of 142. BUN is 64 with a creatinine of 2.7 and sodium levels at 138. Potassium level is at 4.4. Initial lactic acid level was at 3.1 down to 1.6. Procalcitonin level is pending. proBNP level is 26,100. Troponins at 0.03. Rest of the liver function tests are normal. The viral screen is negative. -CAT scan showed cardiomegaly, splenomegaly, small bilateral pleural effusion, bibasilar pulmonary consolidation in addition to consolidation of the right middle lobe and the findings are quite suspicious for an underlying pneumonia. The patient was started on Zosyn and is also on Zithromax per pulmonary recommendation. While in ED, the patient was noted to be hypotensive. He was started on low-dose norepinephrine for hemodynamic support. The patient is currently on norepinephrine running at 0.05 mcg/kg/min. Awake and alert and communicating 09/14/2024 Patient is seen in follow-up today in the ICU with pulmonary and cardiology following for pneumonia and CHF exacerbation. Patient currently on 3 L via nasal continues with extensive pneumonia maintained on Zithromax. Ceftriaxone was discontinued per pulmonary and started on Zosyn. Preliminary blood cultures are no growth and sputum culture is ordered and pending at this time. Patient's kidney functions are elevated above 3 creatinine and will consult nephrology and appreciate input and recommendations. Pulmonary medical lab technologist recommending possible transfer for tertiary treatment as patient was scheduled to undergo cardiac intervention at [facility] and feels he would benefit from being evaluated by them continuing care for his surgical procedure. Pretesting was to be done on this Saturday regarding CAT scans, blood work, further imaging. Given patient's extensive comorbidities and ongoing issues would recommend transfer to tertiary treatment. Will attempt to contact transfer center to discuss possible transfer. 09/15/2024. Patient is seen in follow-up today continues in the ICU although is a downgrade to 3 S. once a bed becomes available. Patient continues on 3 L with pulmonary and cardiology following maintained on antibiotics and sputum culture remains pending. Creatinine is 3.33 nephrology consulted and appreciate input and recommendations regarding acute on chronic kidney disease with LONDON. Patient is afebrile although reports continued shortness of breath. Patient was scheduled for outpatient testing for further surgical intervention with Jar[facility] Akers this Saturday although will likely need to be rescheduled. Patient does not appear to be a good surgical candidate and is high risk given significant comorbidities. Encouraged to increase activity as tolerated and patient is reporting significant difficulty and pain with swallowing. Speech is consulted and will likely undergo swallow study 09/16/2024 Patient is seen and evaluated in follow-up reporting he does not feel well and continues to be short of breath and reporting continued difficulty with swallowing although underwent modified barium swallow study and is recommended to continue on current regimen and soft foods. Patient white count remains low although slightly improved at 2.49, hemoglobin is stable at 9.1 although co ntinues to report coughing and spitting up blood at times. Eliquis remains on hold and platelet count is low at 68. Sodium 140 with a potassium of 4.6, BUN 92 and creatinine is 3.21. Nephrology following along with pulmonary, cardiology and continued on IV steroids along with breathing treatments. 09/17/2024 Patient is seen in follow-up today and continues to report shortness of breath and hemoptysis and not feeling much improved. Kidney functions are trending down with nephrology following and will continue current regimen. Hemoglobin remained stable at the increased hemoptysis. Sodium is 138 with a potassium of 4.5, BUN is 100 with a creatinine of 2.98. Blood sugars being monitored and will continue current regimen. Patient is maintained on IV steroids along with breathing treatments and antibiotics and will continue. Patient continues to have persistent cough with no real improvement is maintained on antibiotics and will consult infectious disease and appreciate input and recommendations. Patient continues have significant wheezing and IV steroids being advanced. Review of systems: Constitutional: No reports of fatigue, fever, or chills Cardiovascular: No reports of chest pain or palpitations Respiratory: reports of continued shortness of breath and persistent cough GI: No reports of nausea, vomiting, or diarrhea, reports not much of an appetite and still having difficulties with swallowing things, eating only soft foods on occasion : No reports of dysuria or retention Neurovascular: reports of generalized weakness All medications have been reviewed Physical exam: Gen: This is a 74-year-old male who is awake, alert and oriented x 3, thin built, elderly appearing, ill-appearing HEENT: Head is atraumatic, normocephalic. Pupils equal, round. Sclerae is anicteric. NECK: Supple. No JVD. No lymphadenopathy. No thyromegaly. LUNGS: Diminished breath sounds bilaterally with coarse scattered rhonchi noted. No intercostal retractions. HEART: S1, S2 are muffled ABDOMEN: Soft. Mildly distended, bowel sounds are present. No masses. No tenderness. EXTREMITIES: No pedal edema. No calf tenderness. Mild bilateral lower extremity edema noted NEUROLOGICAL: Patient is awake, alert and oriented x3. Cranial nerves 2 through 12 are grossly intact. Diffusely weak Assessment: -Acute bilateral lower lobe pneumonia/likely gram-negative pneumonia of the [facility] lung base, with sepsis present on admission, cultures thus far negative -Acute on chronic hypoxic respiratory failure; currently on 3 L of oxygen by nasal cannula -Acute hypotension; likely secondary to sepsis and the patient was on low-dose norepinephrine which has been discontinued. -Acute exacerbation COPD -Chronic systolic heart failure. Most recent EF revealing impaired LV function with an EF of 35 to 40% with moderate degree of aortic valve stenosis. Aortic dilatation at the level of the root also noted with moderate RV dilatation and mild pulmonary hypertension -Chronic atrial fibrillation, currently rate controlled, maintained on anticoagulation with Eliquis -Chronic stage III kidney disease, with acute LONDON, worsening kidney functions -History of implantation of permanent pacemaker. -History of hepatitis C/chronic liver disease/hepatocellular carcinoma. 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 -Hepatocellular carcinoma. GI prophylaxis DVT prophylaxis; SCDs/systemic anticoagulation DNR Plan: Patient was recently transferred out of the ICU with multiple consultations following including cardiology, nephrology, pulmonary. Patient continues on IV steroids and [id number] breathing treatments along with supplemental oxygen. Patient continues to report shortness of breath with minimal exertion and continued cough with occasional bleeding noted. Eliquis is on hold and sputum culture thus far is negative and hemoglobin is stable above 9. nephrology following for acute on chronic kidney disease with worsening kidney functions. Creatinine slightly improved at 2.9 today Patient is pancytopenic secondary to chronic liver disease also underlying infection with noted thrombocytopenia and leukopenia. Follow-up on repeat labs and replace electrolytes per protocol There was discussion of possible transfer for tertiary treatment to [facility] and patient will likely need to reschedule upcoming testing for possible cardiology intervention at [facility] later date. Patient will not be accepted for transfer at this time Encouraged increased activity as tolerated. Patient underwent swallow study with no signs of aspiration although continues to have difficulty with swallowing, recommend soft and/or liquid diet as tolerated Due to multiple complex medical issues, overall prognosis is extremely guarded The impression and plan of care has been dictated by Marie Inman, Nurse Practitioner as directed. Dr. Golden MD I have performed a history and examination and MDM of this patient, discussed the same with the dictator, and agree with the dictator's assessment and plan as written ,documented as a scribe. Based on total visit time, I have performed more than 50% of the visit. Objective - Vital Signs Vital signs: Vital Signs Temp 97.2 F L 09/17/24 19:45 Pulse 99 09/18/24 04:50 Resp 14 09/18/24 04:50 BP 145/85 09/18/24 04:50 Pulse Ox 100 09/18/24 04:50 FiO2 Intake & Output 09/17/24 09/17/24 09/18/24 06:59 18:59 06:59 Intake Total 540 708 Output Total 800 450 150 Balance -260 258 -150 Weight 91.2 kg 90.8 kg Intake: Oral 540 708 Output: Urine 800 450 150 Other: Voiding Method Urinal Urinal Urinal # Voids 1 # Bowel Movements 1 - Labs CBC & Chem 7: 09/17/24 07:05 09/17/24 07:05 Labs: Abnormal Lab Results - Last 24 Hours (Table) 09/17/24 09/17/24 09/17/24 Range/Units 06:04 07:05 07:05 WBC 2.41 L (4.50-10.00) 10*3/uL RBC 3.50 L (4.40-5.60) 10*6/uL Hgb 9.1 L (13.0-17.0) g/dL Hct 30.4 L (39.6-50.0) % MCH 26.0 L (27.0-32.0) pg MCHC 29.9 L (32.0-37.0) g/dL Plt Count 67 L (140-440) 10*3/uL Lymphocytes # 0.08 L (0.90-5.00) 10*3/uL Monocytes # 0.06 L (0.20-1.00) 10*3/uL Eosinophils # 0.00 L (0.04-0.35) 10*3/uL BUN 100 H (9-20) mg/dL Creatinine 2.98 H (0.66-1.25) mg/dL Glucose 124 H (74-99) mg/dL POC Glucose (mg/dL) 137 H (70-110) mg/dL 09/17/24 09/17/24 09/17/24 Range/Units 11:12 16:10 20:09 WBC (4.50-10.00) 10*3/uL RBC (4.40-5.60) 10*6/uL Hgb (13.0-17.0) g/dL Hct (39.6-50.0) % MCH (27.0-32.0) pg MCHC (32.0-37.0) g/dL Plt Count (140-440) 10*3/uL Lymphocytes # (0.90-5.00) 10*3/uL Monocytes # (0.20-1.00) 10*3/uL Eosinophils # (0.04-0.35) 10*3/uL BUN (9-20) mg/dL Creatinine (0.66-1.25) mg/dL Glucose (74-99) mg/dL POC Glucose (mg/dL) 204 H 256 H 234 H (70-110) mg/dL Microbiology - Last 24 Hours (Table) 09/17/24 16:00 Gram Stain - Preliminary Sputum
[2024-09-18 06:05] LABS: Glucose,Whole Blood 164 mg/dL (70-110)
[2024-09-18 08:19] LABS: HCT 29.2 % (39.6-50.0); HGB 8.8 g/dL (13.0-17.0); Lymphocytes # (A) 0.07 10*3/uL (0.90-5.00); Lymphocytes % (A) 5.6 %; MCH 26.3 pg (27.0-32.0); MCHC 30.1 g/dL (32.0-37.0); MCV 87.2 fL (80.0-97.0); Mean Platelet Volume 11.7 fL (9.5-12.2); Monocytes # (A) 0.03 10*3/uL (0.20-1.00); Monocytes % (A) 2.4 %; Neutrophils # (A) 1.15 10*3/uL (1.80-7.70); Neutrophils % (A) 91.2 %; RBC 3.35 10*6/uL (4.40-5.60); RDW 16.9 % (11.5-14.5)
[2024-09-18 08:30] LABS: African American GFR (CKD) 24 (>60 ml/min/1.73 sqM); Anion Gap 12 mmol/L; Calcium 9.1 mg/dL (8.4-10.2); Carbon Dioxide 24 mmol/L (22-30); Chloride 105 mmol/L (98-107); Glucose 190 mg/dL (74-99); Non-African American GFR(CKD) 21 (>60 ml/min/1.73 sqM); Potassium 4.4 mmol/L (3.5-5.1); Sodium 141 mmol/L (137-145)
[2024-09-18 08:35] LABS: WBC 1.26 10*3/uL (4.50-10.00)
[2024-09-18 08:43] LABS: Blood Urea Nitrogen 102 mg/dL (9-20)
[2024-09-18 09:06] LABS: Platelet Count 67 10*3/uL (140-440)
--- NOTE | 2024-09-18 10:57 | P.PN ---
Subjective HISTORY OF PRESENT ILLNESS: Patient examined this morning at the bedside. Patient currently denies chest pain or pressure. He currently denies shortness of breath. He remains on antibiotics. He continues to report occasional hemoptysis. His Eliquis remains on hold. Hemoglobin 9.1. Creatinine 3.21. 09/17/2024 Patient examined this morning. Patient is currently sitting up in the chair. Patient currently denies chest pain or pressure. He remains on IV steroids and antibiotics per pulmonary medicine. Telemetry reveals atrial fibrillation with a heart rate in the 90s. Creatinine today 2.98, down from 3.21. 09/18/2024 Patient examined this morning at bedside. Patient without complaints of chest pain or pressure. He continues to report episodes of hemoptysis. Eliquis remains on hold. PHYSICAL EXAM: VITAL SIGNS: Reviewed. GENERAL: Well-developed in no acute distress. NECK: Supple. No JVD or thyromegaly LUNGS: Respirations even and unlabored. Lungs essentially clear to auscultation bilaterally. HEART: Irregular rate and rhythm. S1 and S2 heard. Systolic murmur noted. EXTREMITIES: Normal range of motion. No clubbing or cyanosis. Peripheral pulses intact. No lower extremity edema ASSESSMENT: Right lower lobe pneumonia Acute COPD exacerbation Persistent atrial fibrillation with controlled ventricular rate Hemoptysis Moderate to severe aortic stenosis History of permanent pacemaker implantation secondary to sick sinus syndrome Acute on chronic heart failure with reduced EF, 35 to 40% Ischemic cardiomyopathy Acute on chronic kidney disease PLAN: Eliquis remains on hold secondary to hemoptysis Continue amiodarone, aspirin, Lipitor, metoprolol Lasix, Farxiga remain on hold secondary to kidney function Patient to follow-up in the office with Dr. Post regarding his aortic stenosis No further inpatient recommendations from a cardiac standpoint We will sign off. Please reconsult if needed. Nurse practitioner note has been reviewed by physician. Signing provider agrees with the documented findings, assessment, and plan of care documented by ADJUNCT PSYCHOLOGY PROFESSOR as a scribe. Objective - Vital Signs Vital signs: Vital Signs Temp 97.3 F L 09/18/24 09:16 Pulse 64 09/18/24 09:16 Resp 20 09/18/24 09:16 BP 165/91 09/18/24 09:16 Pulse Ox 95 09/18/24 09:16 FiO2 Intake & Output 09/17/24 09/18/24 09/18/24 18:59 06:59 18:59 Intake Total 708 300 10 Output Total 450 150 Balance 258 150 10 Weight 90.8 kg Intake: IV 10 Invasive Line 2 10 Oral 708 300 Output: Urine 450 150 Other: Voiding Method Urinal Urinal Urinal # Voids 1 - Labs CBC & Chem 7: 09/18/24 07:51 09/18/24 07:51 Labs: Abnormal Lab Results - Last 24 Hours (Table) 09/17/24 09/17/24 09/17/24 Range/Units 07:05 11:12 16:10 WBC (4.50-10.00) 10*3/uL RBC (4.40-5.60) 10*6/uL Hgb (13.0-17.0) g/dL Hct (39.6-50.0) % MCH (27.0-32.0) pg MCHC (32.0-37.0) g/dL Plt Count 67 L (140-440) 10*3/uL Neutrophils # (1.80-7.70) 10*3/uL Lymphocytes # 0.08 L (0.90-5.00) 10*3/uL Monocytes # 0.06 L (0.20-1.00) 10*3/uL Eosinophils # 0.00 L (0.04-0.35) 10*3/uL BUN (9-20) mg/dL Creatinine (0.66-1.25) mg/dL Glucose (74-99) mg/dL POC Glucose (mg/dL) 204 H 256 H (70-110) mg/dL 09/17/24 09/18/24 09/18/24 Range/Units 20:09 06:03 07:51 WBC 1.26 L* (4.50-10.00) 10*3/uL RBC 3.35 L (4.40-5.60) 10*6/uL Hgb 8.8 L (13.0-17.0) g/dL Hct 29.2 L (39.6-50.0) % MCH 26.3 L (27.0-32.0) pg MCHC 30.1 L (32.0-37.0) g/dL Plt Count 67 L (140-440) 10*3/uL Neutrophils # 1.15 L (1.80-7.70) 10*3/uL Lymphocytes # 0.07 L (0.90-5.00) 10*3/uL Monocytes # 0.03 L (0.20-1.00) 10*3/uL Eosinophils # 0.00 L (0.04-0.35) 10*3/uL BUN (9-20) mg/dL Creatinine (0.66-1.25) mg/dL Glucose (74-99) mg/dL POC Glucose (mg/dL) 234 H 164 H (70-110) mg/dL 09/18/24 Range/Units 07:51 WBC (4.50-10.00) 10*3/uL RBC (4.40-5.60) 10*6/uL Hgb (13.0-17.0) g/dL Hct (39.6-50.0) % MCH (27.0-32.0) pg MCHC (32.0-37.0) g/dL Plt Count (140-440) 10*3/uL Neutrophils # (1.80-7.70) 10*3/uL Lymphocytes # (0.90-5.00) 10*3/uL Monocytes # (0.20-1.00) 10*3/uL Eosinophils # (0.04-0.35) 10*3/uL BUN 102 H* (9-20) mg/dL Creatinine 2.85 H (0.66-1.25) mg/dL Glucose 190 H (74-99) mg/dL POC Glucose (mg/dL) (70-110) mg/dL Microbiology - Last 24 Hours (Table) 09/17/24 16:00 Gram Stain - Preliminary Sputum Sputum Culture - Preliminary
[2024-09-18 11:42] LABS: Glucose,Whole Blood 233 mg/dL (70-110)
[2024-09-18] MEDS: IPRATROPIUM-ALBUTEROL 3 ML NEB INHALATION SCH (12:12)
--- NOTE | 2024-09-18 15:21 | P.PN ---
Subjective Progress Note Date: 09/18/24 Principal diagnosis: Acute bilateral pneumonia, possibly hospital-acquired with acute on chronic hypoxic respiratory failure This is a 74-year-old male patient with multiple medical problems and coming into the department having chest discomfort, cough, congestion and worsening shortness of breath. He is chronically debilitated and is willing more weak than usual. Denies having any fever. No hemoptysis. No pleurisy. Noted, the patient was hospitalized few days back and the patient was discharged home and his condition decompensated over the past 24 hours. The patient had a follow-up chest x-ray in the emergency department that showed development of new bilateral lower lobe pulmonary filtrates consistent with pneumonia. The patient was hypoxic and his oxygen requirements progressively got worse and is currently on 15 L of oxygen by nasal cannula with a pulse ox of 93%. He typically uses oxygen between 2 and 3 L. He remains in chronic atrial fibrillation. The white cell count is 8.9 with a hemoglobin 11.9 and a platelet count of 142. BUN is 64 with a creatinine of 2.7 and sodium levels at 138. Potassium level is at 4.4. Initial lactic acid level was at 3.1 down to 1.6. Procalcitonin level is pending. proBNP level is 26,100. Troponins at 0.03. Rest of the liver function tests are normal. The viral screen is negative. Based on his clinical presentation, I ordered a noncontrast CAT scan of the chest and the CAT scan showed cardiomegaly, splenomegaly, small bilateral pleural effusion, bibasilar pulmonary consolidation in addition to consolidation of the right middle lobe and the findings are quite suspicious for an underlying pneumonia. The patient accordingly was started on Zosyn and is also on Zithromax. On a separate note, the patient was noted to be hypotensive. He was started on low-dose norepinephrine for hemodynamic support. The patient is currently on norepinephrine running at 0.05 mcg/kg/min. Awake and alert and communicating His comorbidities are multiple and the patient is known to have COPD, chronic stage III kidney disease, congestion heart failure with a ejection fraction of 35 to 40% and the patient has moderate degree of aortic stenosis and mild pulmonary hypertension, chronic A-fib, hypertension, history of pancytopenia as the patient has previous history of hepatitis C and history of hepatocellular ca rcinoma and he also has previous history of coronary artery disease with previous MS and hypertension and the patient has a permanent pacemaker in place. Patient was seen today on 09/14/2024, patient remains in the ICU, on 3 L nasal cannula, he has significant pneumonia bilaterally possibly aspiration related or could be hospital-acquired pneumonia. In addition the patient has hemoptysis, I went ahead and held his Eliquis today. Patient is on antibiotics in the form of Zosyn and Zithromax, he is also on bronchodilators, and he is supposed to follow-up at [facility] on Saturday for his severe aortic stenosis, however looking at the overall picture, patient is not going to be discharged before Saturday considering the extensiveness of his pneumonia. Hence I will ask the admitting physician to consider transferring the patient to [facility] if possible. In the meantime patient is on antibiotics in the form of Zithromax and Zosyn, and he is on 3 L nasal cannula, not in distress. WBC count is 1.45 hemoglobin 9.2 electrolytes are normal BUN is 75 creatinine 3.36. Seems to be getting worse. Urine Legionella antigen is negative. Patient was seen today on 09/15/24, on 3 L nasal cannula, remains in the ICU, complaining of difficulty swallowing, patient continues to have bibasilar consolidation, chest x-ray showing slight improvement clinically the patient is about the same but he seems to be more bothered with his difficulty swallowing. Patient remains on antibiotics in the form of Zosyn and Zithromax, he is on bronchodilators, he does have history of severe aortic stenosis, and he supposedly has an appointment with cardiology at [facility] tomorrow. But this is most likely going to be canceled and he will have to set up another appointment on outpatient basis. WBC count today is 1.59 hemoglobin is 8.7 electrolytes are normal BUN is 85 creatinine 3.33. Again his chest x-ray showed slight improvement in his bilateral pneumonia but definitely not resolved. Patient was seen today on 09/17/2024, patient continues to do poorly, not making a significant improvement, remains on Zosyn, sputum cultures are nondiagnostic patient continues to have blood-tinged sputum chest x-ray continues to show bilateral pneumonia. WBC count is 2.41, hemoglobin is 9.1 electrolytes are normal BUN is 100 creatinine 2.98. Seen today on 09/20/2024, patient is about the same, continues to have cough, shortness of breath, and occasional episodes of blood-tinged sputum. His Eliquis remains on hold, patient denies any chest pain or chest pressure, continues to have low WBC count of 1.26 hemoglobin is 8.8 platelets are 67,000's electrolytes are normal BUN is 102 creatinine 2.85 Objective - Vital Signs Vital signs: Vital Signs Temp 97.3 F L 09/18/24 09:16 Pulse 86 09/18/24 12:21 Resp 16 09/18/24 12:15 BP 156/83 09/18/24 12:15 Pulse Ox 99 09/18/24 12:15 FiO2 Intake & Output 09/17/24 09/18/24 09/18/24 18:59 06:59 18:59 Intake Total 708 300 10 Output Total 450 150 100 Balance 258 150 -90 Weight 90.8 kg 90.8 kg Intake: IV 10 Invasive Line 2 10 Oral 708 300 Output: Urine 450 150 100 Other: Voiding Method Urinal Urinal Urinal # Voids 1 # Bowel Movements 1 - Exam Physical exam reveals 74-year-old white male in no distress, on 2 L nasal cannula patient looks frail and chronically ill Head: Atraumatic normocephalic HEENT: PERRLA, EOMI, nonicteric no neck masses no JVD Mild carotid bruit, systolic murmur radiating to carotids elevated jugular venous distention. Lungs: Crackles and rhonchi noted bilaterally Heart: Irregular pulse, 3/6 systolic murmur Abdomen: Soft nontender, positive bowel sounds. Extremities: 1+ lower extremity edema Neuro: Alert oriented x 3 no gross focal deficit Psychiatric: Normal mood affect and no mental status examination Skin: No rashes - Labs CBC & Chem 7: 09/18/24 07:51 09/18/24 07:51 Labs: Abnormal Lab Results - Last 24 Hours (Table) 09/17/24 09/17/24 09/18/24 Range/Units 16:10 20:09 06:03 WBC (4.50-10.00) 10*3/uL RBC (4.40-5.60) 10*6/uL Hgb (13.0-17.0) g/dL Hct (39.6-50.0) % MCH (27.0-32.0) pg MCHC (32.0-37.0) g/dL Plt Count (140-440) 10*3/uL Neutrophils # (1.80-7.70) 10*3/uL Lymphocytes # (0.90-5.00) 10*3/uL Monocytes # (0.20-1.00) 10*3/uL Eosinophils # (0.04-0.35) 10*3/uL BUN (9-20) mg/dL Creatinine (0.66-1.25) mg/dL Glucose (74-99) mg/dL POC Glucose (mg/dL) 256 H 234 H 164 H (70-110) mg/dL 09/18/24 09/18/24 09/18/24 Range/Units 07:51 07:51 11:40 WBC 1.26 L* (4.50-10.00) 10*3/uL RBC 3.35 L (4.40-5.60) 10*6/uL Hgb 8.8 L (13.0-17.0) g/dL Hct 29.2 L (39.6-50.0) % MCH 26.3 L (27.0-32.0) pg MCHC 30.1 L (32.0-37.0) g/dL Plt Count 67 L (140-440) 10*3/uL Neutrophils # 1.15 L (1.80-7.70) 10*3/uL Lymphocytes # 0.07 L (0.90-5.00) 10*3/uL Monocytes # 0.03 L (0.20-1.00) 10*3/uL Eosinophils # 0.00 L (0.04-0.35) 10*3/uL BUN 102 H* (9-20) mg/dL Creatinine 2.85 H (0.66-1.25) mg/dL Glucose 190 H (74-99) mg/dL POC Glucose (mg/dL) 233 H (70-110) mg/dL Microbiology - Last 24 Hours (Table) 09/13/24 01:58 Blood Culture - Final Blood 09/17/24 16:00 Gram Stain - Preliminary Sputum Sputum Culture - Preliminary Assessment and Plan Assessment: Impression: Acute on chronic hypoxic respiratory failure Acute bilateral pneumonia could be aspiration pneumonia or could be hospital- acquired pneumonia Acute sepsis and hypotension with leukocytosis secondary to above Chronic systolic congestive heart failure ejection fraction of 35 to 40% in addition patient has moderate severe aortic stenosis Chronic atrial fibrillation Severe underlying COPD FEV1 of 59% Chronic kidney disease stage III History of pacemaker implantation History of hypertension History of hepatitis C Pancytopenia secondary to liver disease Parotid gland carcinoma History of hepatocellular carcinoma Recommendation: Continue Zosyn Continue IV methylprednisolone, Continue Protonix/GI prophylaxis Continue amiodarone for atrial fibrillation Continue bronchodilators and steroids for COPD Not a great candidate for bronchoscopy and BAL, this was discussed again with the patient today and given that option, however patient declines as long as there is a small chance that the patient may end up requiring intubation mechanical ventilation and for the procedure itself I would have to change his CODE STATUS to full code patient is extremely reluctant to do so. Overall prognosis remains guarded . Will continue to follow Time with Patient: Less than 30
--- NOTE | 2024-09-18 15:42 | P.PN ---
Subjective Patient is seen for follow-up of chronic kidney disease and acute kidney injury. Currently not on diuretics or IV fluids Maintained on steroids for COPD exacerbation. Shortness of breath improved with increased dose of steroids. Renal function slightly improved with serum creatinine down to 2.8. BUN is disproportionately elevated secondary to steroids Objective - Vital Signs Vital signs: Vital Signs Temp 98.8 F 09/18/24 15:23 Pulse 88 09/18/24 15:23 Resp 16 09/18/24 15:23 BP 163/90 09/18/24 15:23 Pulse Ox 99 09/18/24 15:23 FiO2 Intake & Output 09/17/24 09/18/24 09/18/24 18:59 06:59 18:59 Intake Total 708 300 10 Output Total 450 150 100 Balance 258 150 -90 Weight 90.8 kg 90.8 kg Intake: IV 10 Invasive Line 2 10 Oral 708 300 Output: Urine 450 150 100 Other: Voiding Method Urinal Urinal Urinal # Voids 1 # Bowel Movements 1 - Exam Patient is awake, comfortable, no acute distress Examination of the heart S1 and S2 Examination of the lungs decreased breath sounds at the bases occasional wheezing heard Abdomen is soft Examination lower extremity shows 1+ edema, chronic [employer] exam grossly intact - Labs CBC & Chem 7: 09/18/24 07:51 09/18/24 07:51 Labs: Abnormal Lab Results - Last 24 Hours (Table) 09/17/24 09/17/24 09/18/24 Range/Units 16:10 20:09 06:03 WBC (4.50-10.00) 10*3/uL RBC (4.40-5.60) 10*6/uL Hgb (13.0-17.0) g/dL Hct (39.6-50.0) % MCH (27.0-32.0) pg MCHC (32.0-37.0) g/dL Plt Count (140-440) 10*3/uL Neutrophils # (1.80-7.70) 10*3/uL Lymphocytes # (0.90-5.00) 10*3/uL Monocytes # (0.20-1.00) 10*3/uL Eosinophils # (0.04-0.35) 10*3/uL BUN (9-20) mg/dL Creatinine (0.66-1.25) mg/dL Glucose (74-99) mg/dL POC Glucose (mg/dL) 256 H 234 H 164 H (70-110) mg/dL 09/18/24 09/18/24 09/18/24 Range/Units 07:51 07:51 11:40 WBC 1.26 L* (4.50-10.00) 10*3/uL RBC 3.35 L (4.40-5.60) 10*6/uL Hgb 8.8 L (13.0-17.0) g/dL Hct 29.2 L (39.6-50.0) % MCH 26.3 L (27.0-32.0) pg MCHC 30.1 L (32.0-37.0) g/dL Plt Count 67 L (140-440) 10*3/uL Neutrophils # 1.15 L (1.80-7.70) 10*3/uL Lymphocytes # 0.07 L (0.90-5.00) 10*3/uL Monocytes # 0.03 L (0.20-1.00) 10*3/uL Eosinophils # 0.00 L (0.04-0.35) 10*3/uL BUN 102 H* (9-20) mg/dL Creatinine 2.85 H (0.66-1.25) mg/dL Glucose 190 H (74-99) mg/dL POC Glucose (mg/dL) 233 H (70-110) mg/dL Microbiology - Last 24 Hours (Table) 09/13/24 01:58 Blood Culture - Final Blood 09/17/24 16:00 Gram Stain - Preliminary Sputum Sputum Culture - Preliminary Assessment and Plan Assessment: 1. Acute kidney injury secondary to ATN from hypotension and sepsis. Nonoliguric. UA shows trace protein and small blood, otherwise unremarkable. Ultrasound on 09/02/2024 did not show any evidence of obstruction. 2. Acute on chronic hypoxic respiratory failure secondary to pneumonia and COPD exacerbation 3. Sepsis from pneumonia 4. Chronic kidney disease stage IV with baseline creatinine about 2.3 mg/dL secondary to nephrosclerosis 4. Cardiomyopathy with EF of 35 to 40% 5. Chronic A-fib 6. History of hepatitis C 7. History of hepatocellular carcinoma Plan: Resume home dose of oral Lasix in 1 to 2 days Continue with antibiotics Repeat labs in a.m. Avoid nephrotoxic agents
[2024-09-18 16:44] LABS: Glucose,Whole Blood 193 mg/dL (70-110)
[2024-09-18 20:02] LABS: Glucose,Whole Blood 215 mg/dL (70-110)
--- NOTE | 2024-09-18 22:12 | P.CONS ---
History of Present Illness - Reason for Consult Consult date: 09/17/24 Pneumonia Requesting physician: Marie Inman - Chief Complaint Shortness of breath and cough x days - History of Present Illness Patient is a 74-year-old male with a past medical history significant for hypertension [place] heart failure with COPD hepatocellular carcinoma/hepatitis C patient presenting to the hospital about 5 days ago on 09/13/2024 concerning for i ncreasing shortness of breath along with A-fib with RVR patient denies high- grade fever or any chills and no fever have been recorded during this hospital stay patient has been complaining of cough which has been moderate intensity with occasional sputum production and some blood-tinged sputum patient denies having any nausea vomiting sugar in the food abdominal pain or any diarrhea blood work so far include patient noticed to be leukopenic white count has been trending low with a white count of 1.26 today he did have elevated BUN/creatinine with a creatinine 2.85 BUN of 102 electrolytes are normal urine is negative patient did have blood culture and was sputum culture which has been negative sputum culture have been repeat yesterday which are currently pending patient did have a chest x-ray dependent airspace consolidation consistent with multilobar pneumonia patient also have swallow evaluation and aspiration's seen patient is currently being treated with steroids as well as Zosyn infectious disease was consulted yesterday concerning for pneumonia Review of Systems Positive point and negatives has been mentioned in the HPI, complete review of systems was performed and all other systems are negative Past Medical History Past Medical History: Cancer, Chest Pain / Angina, Heart Failure, COPD, Hypertension, Liver Disease, Myocardial Infarction ([place]), Musculoskeletal Disorder, Pneumonia Additional Past Medical History / Comment(s): HX OF HEPATITIS C , hepatocellular carcinoma, LOW IRON , BACK PAIN, HERNIATED DISCS, SKIN CANCER, 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 Hospitalized last week for CHF & Pneumonia. Irr. heart rate @ times. liver cancer Last Myocardial Infarction Date:: 2022 History of Any Multi-Drug Resistant Organisms: None Reported Past Surgical History: Back Surgery, Heart Catheterization, Hernia Repair, Orthopedic Surgery, Pacemaker Additional Past Surgical History / Comment(s): liver ablation done at [facility] for tx of hepatocellular carcinoma,hemorrhoids ,back surgery, cataract, skin cancer, inguinal hernia, abdominal hernia, left shoulder, right wrist, growth removed vocal cord, PAROTID GLAND REMOVED DUE TO CANCER. Past Anesthesia/Blood Transfusion Reactions: No Reported Reaction Additional Past Anesthesia/Blood Transfusion Reaction / Comm: no hx blood transfusion Type of Cardiac Device: Permanent Pacemaker Device Placement Date:: 01/20/24 Past Psychological History: No Psychological Hx Reported Smoking Status: Former smoker Past Alcohol Use History: None Reported Past Drug Use History: None Reported - Past Family History Father Family Medical History: Cancer Medications and Allergies Home Medications Medication Instructions Recorded Confirmed Type Colchicine 0.6 mg PO DAILY 08/02/16 09/13/24 History Tiotropium 2.5 Mcg/Puff [Spiriva 1 puff INHALATION RT-BID 01/14/23 09/13/24 History Respimat 2.5 Mcg] traZODone HCL [Desyrel] 50 mg PO HS 01/14/23 09/13/24 History Cholecalciferol [Vitamin D3 (25 25 mcg PO DAILY 02/11/23 09/13/24 History Mcg = 1000 Iu)] Multivit-Min/FA/Lycopen/Lutein 1 tab PO DAILY 02/11/23 09/13/24 History [Centrum Silver Tablet] Albuterol Inhaler [Ventolin Hfa 2 puff INHALATION RT-Q6H PRN 06/30/23 09/13/24 History Inhaler] Pantoprazole Sodium [Protonix] 20 mg PO DAILY 06/30/23 09/13/24 History Fluticasone Propion/Salmeterol 1 puff INHALATION RT-BID 01/14/24 09/13/24 History [Wixela 500-50 Inhub] Ferrous Sulfate [Iron (65 MG 325 mg PO DAILY 02/06/24 09/13/24 History Elemental)] Folic Acid 1 mg PO DAILY 02/06/24 09/13/24 History Naloxone HCl [Narcan] 4 mg NASAL DIRECTED PRN 02/06/24 09/13/24 History Ipratropium-Albuterol Nebulize 3 ml INHALATION RT-Q4H PRN each 02/07/24 09/13/24 Rx [Duoneb 0.5 mg-3 mg/3 ml Soln] predniSONE 5 mg PO DAILY 07/04/24 09/13/24 History ALPRAZolam [Xanax] 0.25 mg PO BID PRN 07/25/24 09/13/24 History Apixaban [Eliquis] 2.5 mg PO BID 07/25/24 09/13/24 History Sennosides-Docusate Sodium 1 tab PO DAILY 07/25/24 09/13/24 History [Senokot-S] Dapagliflozin Propanediol [Farxiga] 5 mg PO DAILY 10 Days #10 tab 07/27/24 09/13/24 Rx hydrALAZINE HCL [Apresoline] 25 mg PO TID #90 tab 07/27/24 09/13/24 Rx Furosemide [Lasix] 40 mg PO BID 09/10/24 09/13/24 History HYDROcodone/APAP 10-325MG [L[place]orte 1 tab PO Q6H PRN 09/10/24 09/13/24 History 10-325] carvediloL [Coreg] 12.5 mg PO ACHS 09/10/24 09/13/24 History Allergies Allergy/AdvReac Type Severity Reaction Status Date / Time allopurinol AdvReac Gout Verified 09/13/24 14:13 atenolol AdvReac Fatigue,Bra Verified 09/13/24 14:13 dycardia doxazosin AdvReac Delerium,Di Verified 09/13/24 14:13 zziness hydralazine AdvReac Unknown Verified 09/13/24 14:13 lisinopril AdvReac Cough Verified 09/13/24 14:13 metoprolol [From Lopressor] AdvReac Chest Pain Verified 09/13/24 14:13 omalizumab [From Xolair] AdvReac urticaria Verified 09/13/24 14:13 Physical Exam Vitals: Vital Signs Temp Pulse Pulse Resp BP Pulse Ox 09/17/24 11:39 82 16 136/88 97 09/17/24 11:36 86 09/17/24 11:26 89 09/17/24 08:59 97.4 F L 101 H 14 148/84 97 09/17/24 08:32 90 09/17/24 08:21 99 09/17/24 08:18 96 09/17/24 04:00 97.0 F L 76 18 148/97 95 09/17/24 00:30 96 18 127/77 99 09/16/24 19:50 92 18 150/99 96 09/16/24 17:17 80 09/16/24 17:06 82 09/16/24 16:00 98.4 F 93 19 146/85 98 Intake and Output 09/17/24 09/17/24 09/17/24 06:59 14:59 22:59 Intake Total 540 472 Output Total 800 450 Balance -260 22 Intake: Oral 540 472 Output: Urine 800 450 Other: Voiding Method Urinal Urinal # Bowel Movements 1 Weight 91.2 kg GENERAL DESCRIPTION: Elderly male up in the chair, no distress. No tachypnea or accessory muscle of respiration use. HEENT: Shows Pallor , no scleral icterus. Oral mucous membrane is moist NECK: Trachea central, no thyromegaly. LUNGS: Unlabored breathing. Decreased breath sound at the base HEART: S1, S2, regular rate and rhythm. ABDOMEN: Soft, no tenderness , EXTREMITIES: No edema of feet. SKIN: No rash, no masses palpable. NEUROLOGICAL: The patient is awake, alert, oriented x3, mood and affect normal. Results CBC & Chem 7: 09/18/24 07:51 09/18/24 07:51 Labs: Abnormal Lab Results - Last 24 Hours (Table) 09/16/24 09/16/24 09/16/24 Range/Units 16:27 18:43 20:14 WBC (4.50-10.00) 10*3/uL RBC (4.40-5.60) 10*6/uL Hgb (13.0-17.0) g/dL Hct (39.6-50.0) % MCH (27.0-32.0) pg MCHC (32.0-37.0) g/dL Plt Count (140-440) 10*3/uL Lymphocytes # (0.90-5.00) 10*3/uL Monocytes # (0.20-1.00) 10*3/uL Eosinophils # (0.04-0.35) 10*3/uL PT 12.9 H (10.0-12.5) sec INR 1.2 H (<1.2) BUN (9-20) mg/dL Creatinine (0.66-1.25) mg/dL Glucose (74-99) mg/dL POC Glucose (mg/dL) 196 H 187 H (70-110) mg/dL 09/17/24 09/17/24 09/17/24 Range/Units 06:04 07:05 07:05 WBC 2.41 L (4.50-10.00) 10*3/uL RBC 3.50 L (4.40-5.60) 10*6/uL Hgb 9.1 L (13.0-17.0) g/dL Hct 30.4 L (39.6-50.0) % MCH 26.0 L (27.0-32.0) pg MCHC 29.9 L (32.0-37.0) g/dL Plt Count 67 L (140-440) 10*3/uL Lymphocytes # 0.08 L (0.90-5.00) 10*3/uL Monocytes # 0.06 L (0.20-1.00) 10*3/uL Eosinophils # 0.00 L (0.04-0.35) 10*3/uL PT (10.0-12.5) sec INR (<1.2) BUN 100 H (9-20) mg/dL Creatinine 2.98 H (0.66-1.25) mg/dL Glucose 124 H (74-99) mg/dL POC Glucose (mg/dL) 137 H (70-110) mg/dL 09/17/24 Range/Units 11:12 WBC (4.50-10.00) 10*3/uL RBC (4.40-5.60) 10*6/uL Hgb (13.0-17.0) g/dL Hct (39.6-50.0) % MCH (27.0-32.0) pg MCHC (32.0-37.0) g/dL Plt Count (140-440) 10*3/uL Lymphocytes # (0.90-5.00) 10*3/uL Monocytes # (0.20-1.00) 10*3/uL Eosinophils # (0.04-0.35) 10*3/uL PT (10.0-12.5) sec INR (<1.2) BUN (9-20) mg/dL Creatinine (0.66-1.25) mg/dL Glucose (74-99) mg/dL POC Glucose (mg/dL) 204 H (70-110) mg/dL Microbiology - Last 24 Hours (Table) 09/13/24 01:58 Blood Culture - Preliminary Blood Assessment and Plan (1) Pneumonia Current Visit: Yes Status: Acute Code(s): J18.9 - PNEUMONIA, UNSPECIFIED ORGANISM SNOMED Code(s): 411511765 (2) Leukopenia Current Visit: Yes Status: Acute Code(s): D72.819 - DECREASED WHITE BLOOD CELL COUNT, UNSPECIFIED SNOMED Code(s): 69857572 Plan: 1patient presented to hospital with increasing shortness of breath which is likely multifactorial possible combination of fluid overload which could be related to his cardiac/renal condition plus minus a component of pneumonia not entirely excluded 2sputum has been repeated yesterday and those results will be followed 3for now continue the patient on Zosyn while waiting for the workup to be completed Multiple question concern answered We will follow on clinical condition and cultures to further adjust medication if needed Thank you for this consultation we will follow the patient along with you Dictation was produced using [employer] plate dictation software. please excuse any gra mmatical, word or spelling errors. Time with Patient: Greater than 30
[2024-09-18] MEDS: IPRATROPIUM-ALBUTEROL 3 ML NEB INHALATION PRN (23:31)
[2024-09-19 05:53] LABS: Glucose,Whole Blood 167 mg/dL (70-110)
--- NOTE | 2024-09-19 07:34 | P.PN ---
Subjective Progress Note Date: 09/18/24 74-year-old male, history of COPD, CAD/CHF, aortic stenosis, atrial fibrillation, hypertension, CKD, presents to ED with complaint chest discomfort and worsening shortness of breath. He is chronically debilitated and is willing more weak than usual; patient was hospitalized few days back and the patient was discharged home and his condition decompensated over the past 24 hours. The patient was hypoxic and his oxygen requirements progressively got worse and is currently on 15 L of oxygen by nasal cannula with a pulse ox of 93%. He typically uses oxygen between 2 and 3 L. Chest x-ray in the emergency department that showed development of new bilateral lower lobe pulmonary filtrates consistent with pneumonia. - The white cell count is 8.9 with a hemoglobin 11.9 and a platelet count of 142. BUN is 64 with a creatinine of 2.7 and sodium levels at 138. Potassium level is at 4.4. Initial lactic acid level was at 3.1 down to 1.6. Procalcitonin level is pending. proBNP level is 26,100. Troponins at 0.03. Rest of the liver function tests are normal. The viral screen is negative. -CAT scan showed cardiomegaly, splenomegaly, small bilateral pleural effusion, bibasilar pulmonary consolidation in addition to consolidation of the right middle lobe and the findings are quite suspicious for an underlying pneumonia. The patient was started on Zosyn and is also on Zithromax per pulmonary recommendation. While in ED, the patient was noted to be hypotensive. He was started on low-dose norepinephrine for hemodynamic support. The patient is currently on norepinephrine running at 0.05 mcg/kg/min. Awake and alert and communicating 09/14/2024 Patient is seen in follow-up today in the ICU with pulmonary and cardiology following for pneumonia and CHF exacerbation. Patient currently on 3 L via nasal continues with extensive pneumonia maintained on Zithromax. Ceftriaxone was discontinued per pulmonary and started on Zosyn. Preliminary blood cultures are no growth and sputum culture is ordered and pending at this time. Patient's kidney functions are elevated above 3 creatinine and will consult nephrology and appreciate input and recommendations. 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 Pretesting was to be done on this Saturday regarding CAT scans, blood work, further imaging. Given patient's extensive comorbidities and ongoing issues would recommend transfer to tertiary treatment. Will attempt to contact transfer center to discuss possible transfer. 09/15/2024. Patient is seen in follow-up today continues in the ICU although is a downgrade to 3 S. once a bed becomes available. Patient continues on 3 L with pulmonary and cardiology following maintained on antibiotics and sputum culture remains pending. Creatinine is 3.33 nephrology consulted and appreciate input and recommendations regarding acute on chronic kidney disease with LONDON. Patient is afebrile although reports continued shortness of breath. Patient was scheduled for outpatient testing for further surgical intervention with Jarrod Akers this Saturday although will likely need to be rescheduled. Patient does not appear to be a good surgical candidate and is high risk given significant comorbidities. Encouraged to increase activity as tolerated and patient is reporting significant difficulty and pain with swallowing. Speech is consulted and will likely undergo swallow study 09/16/2024 Patient is seen and evaluated in follow-up reporting he does not feel well and continues to be short of breath and reporting continued difficulty with swallowing although underwent modified barium swallow study and is recommended to continue on current regimen and soft foods. Patient white count remains low although slightly improved at 2.49, hemoglobin is stable at 9.1 although co ntinues to report coughing and spitting up blood at times. Eliquis remains on hold and platelet count is low at 68. Sodium 140 with a potassium of 4.6, BUN 92 and creatinine is 3.21. Nephrology following along with pulmonary, cardiology and continued on IV steroids along with breathing treatments. 09/17/2024 Patient is seen in follow-up today and continues to report shortness of breath and hemoptysis and not feeling much improved. Kidney functions are trending down with nephrology following and will continue current regimen. Hemoglobin remained stable at the increased hemoptysis. Sodium is 138 with a potassium of 4.5, BUN is 100 with a creatinine of 2.98. Blood sugars being monitored and will continue current regimen. Patient is maintained on IV steroids along with breathing treatments and antibiotics and will continue. Patient continues to have persistent cough with no real improvement is maintained on antibiotics and will consult infectious disease and appreciate input and recommendations. Patient continues have significant wheezing and IV steroids being advanced. 09/18/2024 Patient is seen and evaluated this morning continues to show no significant improvement with continued shortness of breath and cough. Lung sounds are congested and rhonchorous with wheezing noted. Abdomen is distended and patient is reporting no abdominal pain and is having bowel movements that are loose. Pulmonary following and patient does not appear to be a candidate for bronchoscopy. Infectious disease was consulted and appreciate input and recommendations regarding persistent with pneumonia with no improvements, preliminary cultures have been negative thus far. Patient is no code and this was addressed again as patient is discussing further with family about overall prognosis and does not want to end up on a mechanical ventilator and unsure if he wants to have a bronchoscopy or any further intervention. Review of systems: Constitutional: No reports of fatigue, fever, or chills Cardiovascular: No reports of chest pain or palpitations Respiratory: reports of continued shortness of breath and persistent cough GI: No reports of nausea, vomiting, reports diarrhea, reports not much of an appetite and still having difficulties with swallowing things, eating only soft foods on occasion : No reports of dysuria or retention Neurovascular: reports of generalized weakness All medications have been reviewed Physical exam: Gen: This is a 74-year-old male who is awake, alert and oriented x 3, thin built, elderly appearing, ill-appearing HEENT: Head is atraumatic, normocephalic. Pupils equal, round. Sclerae is anicteric. NECK: Supple. No JVD. No lymphadenopathy. No thyromegaly. LUNGS: Diminished breath sounds bilaterally with coarse scattered rhonchi noted, bronchial congestion and faint crackles with expiratory wheezing. No intercostal retractions. HEART: S1, S2 are muffled ABDOMEN: Soft. More distended and nontender, bowel sounds are present. No masses. No tenderness. EXTREMITIES: No pedal edema. No calf tenderness. Mild bilateral lower extremity edema noted NEUROLOGICAL: Patient is awake, alert and oriented x3. Cranial nerves 2 through 12 are grossly intact. Diffusely weak Assessment: -Acute bilateral lower lobe pneumonia/likely gram-negative pneumonia of the right lung base, with sepsis present on admission, cultures thus far negative -Acute on chronic hypoxic respiratory failure; currently on 3 L of oxygen by nasal cannula -Acute hypotension; likely secondary to sepsis and the patient was on low-dose norepinephrine which has been discontinued. -Acute exacerbation COPD -Diarrhea, rule out C. difficile -Chronic systolic heart failure. Most recent EF revealing impaired LV function with an EF of 35 to 40% with moderate degree of aortic valve stenosis. Aortic dilatation at the level of the root also noted with moderate RV dilatation and mild pulmonary -hypertension history -Chronic atrial fibrillation, currently rate controlled, maintained on anticoagulation with Eliquis although being held for continued hemoptysis -Chronic stage III kidney disease, with acute LOND[place], worsening kidney functions -History of implantation of permanent pacemaker. -History of hepatitis C/chronic liver disease/hepatocellular carcinoma. 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 -Hepatocellular carcinoma. GI prophylaxis DVT prophylaxis; SCDs/systemic anticoagulation DNR Plan: Patient was recently transferred out of the ICU with multiple consultations following including cardiology, nephrology, pulmonary. Patient continues on IV steroids and [id number] breathing treatments along with supplemental ox ygen. Patient continues to report shortness of breath with minimal exertion and continued cough with occasional bleeding noted. Eliquis is on hold and sputum culture thus far is negative. Repeat sputum culture ordered and pending hemoglobin is stable at 8.8 and will continue to monitor. Transfuse if 7 or less nephrology following for acute on chronic kidney disease with worsening kidney functions. Creatinine slightly improved at 2. 8 5 today Patient is pancytopenic secondary to chronic liver disease also underlying infection with noted thrombocytopenia and leukopenia. This appears chronic as well Follow-up on repeat labs and replace electrolytes per protocol There was discussion of possible transfer for tertiary treatment to [facility] and patient will likely need to reschedule upcoming testing for possible cardiology intervention at [facility] later date. Patient will not be accepted for transfer at this time Encouraged increased activity as tolerated. Patient underwent swallow study with no signs of aspiration although continues to have difficulty with swallowing, recommend soft and/or liquid diet as tolerated. Patient is debilitated and lethargic at times and extremely weak, would recommend aspiration precautions and supervision with meals Patient having multiple episodes of loose stools and C. difficile sampling is ordered and pending. Infectious diseases following Discussion was had about the need for possible bronchoscopy although patient does not appear to be a stable candidate for intervention like this at this time and patient reports he is unsure if he wants to proceed with this as well. Patient is no code discuss further with family regarding overall treatment plan moving forward. Due to multiple complex medical issues, overall prognosis is extremely poor and guarded The impression and plan of care has been dictated by Marie Inman, Nurse Practitioner as directed. Dr. Ranulfo MD I have performed a history and examination and MDM of this patient, discussed the same with the dictator, and agree with the dictator's assessment and plan as written ,documented as a scribe. Based on total visit time, I have performed more than 50% of the visit. Objective - Vital Signs Vital signs: Vital Signs Temp 98.0 F 09/19/24 03:57 Pulse 106 H 09/19/24 03:57 Resp 19 09/19/24 03:57 BP 156/92 09/19/24 03:57 Pulse Ox 97 09/19/24 03:57 FiO2 Intake & Output 09/18/24 09/18/24 09/19/24 06:59 18:59 06:59 Intake Total 300 20 Output Total 150 300 150 Balance 150 -280 -150 Weight 90.8 kg 90.8 kg Intake: IV 20 Invasive Line 2 10 Invasive Line 3 10 Oral 300 Output: Urine 150 300 150 Other: Voiding Method Urinal Urinal Urinal # Voids 1 1 # Bowel Movements 1 - Labs CBC & Chem 7: 09/18/24 07:51 09/18/24 07:51 Labs: Abnormal Lab Results - Last 24 Hours (Table) 09/18/24 09/18/24 09/18/24 Range/Units 06:03 07:51 07:51 WBC 1.26 L* (4.50-10.00) 10*3/uL RBC 3.35 L (4.40-5.60) 10*6/uL Hgb 8.8 L (13.0-17.0) g/dL Hct 29.2 L (39.6-50.0) % MCH 26.3 L (27.0-32.0) pg MCHC 30.1 L (32.0-37.0) g/dL Plt Count 67 L (140-440) 10*3/uL Neutrophils # 1.15 L (1.80-7.70) 10*3/uL Lymphocytes # 0.07 L (0.90-5.00) 10*3/uL Monocytes # 0.03 L (0.20-1.00) 10*3/uL Eosinophils # 0.00 L (0.04-0.35) 10*3/uL BUN 102 H* (9-20) mg/dL Creatinine 2.85 H (0.66-1.25) mg/dL Glucose 190 H (74-99) mg/dL POC Glucose (mg/dL) 164 H (70-110) mg/dL 09/18/24 09/18/24 09/18/24 Range/Units 11:40 16:40 20:01 WBC (4.50-10.00) 10*3/uL RBC (4.40-5.60) 10*6/uL Hgb (13.0-17.0) g/dL Hct (39.6-50.0) % MCH (27.0-32.0) pg MCHC (32.0-37.0) g/dL Plt Count (140-440) 10*3/uL Neutrophils # (1.80-7.70) 10*3/uL Lymphocytes # (0.90-5.00) 10*3/uL Monocytes # (0.20-1.00) 10*3/uL Eosinophils # (0.04-0.35) 10*3/uL BUN (9-20) mg/dL Creatinine (0.66-1.25) mg/dL Glucose (74-99) mg/dL POC Glucose (mg/dL) 233 H 193 H 215 H (70-110) mg/dL Microbiology - Last 24 Hours (Table) 09/13/24 01:58 Blood Culture - Final Blood 09/17/24 16:00 Gram Stain - Preliminary Sputum Sputum Culture - Preliminary
[2024-09-19] MEDS: VANCOMYCIN 125 MG CAPSULE PO SCH (08:28)
[2024-09-19 09:38] LABS: HCT 27.5 % (39.6-50.0); HGB 8.3 g/dL (13.0-17.0); MCH 26.3 pg (27.0-32.0); MCHC 30.2 g/dL (32.0-37.0); Mean Platelet Volume 11.5 fL (9.5-12.2); RBC 3.16 10*6/uL (4.40-5.60); RDW 16.7 % (11.5-14.5)
[2024-09-19 09:48] LABS: ALT 19 U/L (4-49); AST 21 U/L (17-59); African American GFR (CKD) 25 (>60 ml/min/1.73 sqM); Albumin 3.2 g/dL (3.5-5.0); Alkaline Phosphatase 53 U/L (38-126); Anion Gap 13 mmol/L; Calcium 8.6 mg/dL (8.4-10.2); Carbon Dioxide 22 mmol/L (22-30); Chloride 106 mmol/L (98-107); Glucose 145 mg/dL (74-99); Magnesium 2.6 mg/dL (1.6-2.3); Non-African American GFR(CKD) 21 (>60 ml/min/1.73 sqM); Potassium 4.6 mmol/L (3.5-5.1); Sodium 141 mmol/L (137-145); Total Bilirubin 0.8 mg/dL (0.2-1.3); Total Protein 5.8 g/dL (6.3-8.2)
[2024-09-19 09:55] LABS: Blood Urea Nitrogen 103 mg/dL (9-20); WBC 1.02 10*3/uL (4.50-10.00)
--- NOTE | 2024-09-19 10:21 | P.PN ---
Subjective Progress Note Date: 09/19/24 Patient is seen for follow-up of chronic kidney disease and acute kidney injury. Currently not on diuretics or IV fluids Maintained on steroids for COPD exacerbation. Shortness of breath improved with increased dose of steroids. Renal function slightly improved with serum creatinine down to 2.8. stable BUN is disproportionately elevated secondary to steroids Objective - Vital Signs Vital signs: Vital Signs Temp 97.6 F 09/19/24 08:25 Pulse 78 09/19/24 09:16 Resp 16 09/19/24 08:25 BP 150/86 09/19/24 08:25 Pulse Ox 99 09/19/24 08:55 FiO2 Intake & Output 09/18/24 09/19/24 09/19/24 18:59 06:59 18:59 Intake Total 20 490 Output Total 300 150 Balance -280 -150 490 Weight 90.8 kg 91.9 kg Intake: IV 20 10 Invasive Line 2 10 Invasive Line 3 10 10 Oral 480 Output: Urine 300 150 Other: Voiding Method Urinal Urinal Urinal # Voids 0 # Bowel Movements 1 - Exam Patient is awake, comfortable, no acute distress Examination of the heart S1 and S2 Examination of the lungs decreased breath sounds at the bases occasional wheezing heard Abdomen is soft Examination lower extremity shows 1+ edema, chronic RADIATION ONCOLOGY NURSE exam grossly intact - Labs CBC & Chem 7: 09/19/24 08:06 09/19/24 08:06 Labs: Abnormal Lab Results - Last 24 Hours (Table) 09/18/24 09/18/24 09/18/24 Range/Units 11:40 16:40 20:01 WBC (4.50-10.00) 10*3/uL RBC (4.40-5.60) 10*6/uL Hgb (13.0-17.0) g/dL Hct (39.6-50.0) % MCH (27.0-32.0) pg MCHC (32.0-37.0) g/dL BUN (9-20) mg/dL Creatinine (0.66-1.25) mg/dL Glucose (74-99) mg/dL POC Glucose (mg/dL) 233 H 193 H 215 H (70-110) mg/dL Magnesium (1.6-2.3) mg/dL Total Protein (6.3-8.2) g/dL Albumin (3.5-5.0) g/dL C. difficile (EIA) Intrp (Negative) 09/19/24 09/19/24 09/19/24 Range/Units 03:18 05:52 08:06 WBC 1.02 L* (4.50-10.00) 10*3/uL RBC 3.16 L (4.40-5.60) 10*6/uL Hgb 8.3 L (13.0-17.0) g/dL Hct 27.5 L (39.6-50.0) % MCH 26.3 L (27.0-32.0) pg MCHC 30.2 L (32.0-37.0) g/dL BUN (9-20) mg/dL Creatinine (0.66-1.25) mg/dL Glucose (74-99) mg/dL POC Glucose (mg/dL) 167 H (70-110) mg/dL Magnesium (1.6-2.3) mg/dL Total Protein (6.3-8.2) g/dL Albumin (3.5-5.0) g/dL C. difficile (EIA) Intrp Positive A (Negative) 09/19/24 Range/Units 08:06 WBC (4.50-10.00) 10*3/uL RBC (4.40-5.60) 10*6/uL Hgb (13.0-17.0) g/dL Hct (39.6-50.0) % MCH (27.0-32.0) pg MCHC (32.0-37.0) g/dL BUN 103 H* (9-20) mg/dL Creatinine 2.82 H (0.66-1.25) mg/dL Glucose 145 H (74-99) mg/dL POC Glucose (mg/dL) (70-110) mg/dL Magnesium 2.6 H (1.6-2.3) mg/dL Total Protein 5.8 L (6.3-8.2) g/dL Albumin 3.2 L (3.5-5.0) g/dL C. difficile (EIA) Intrp (Negative) Microbiology - Last 24 Hours (Table) 09/13/24 01:58 Blood Culture - Final Blood 09/17/24 16:00 Gram Stain - Preliminary Sputum Sputum Culture - Preliminary Assessment and Plan Assessment: 1. Acute kidney injury secondary to ATN from hypotension and sepsis. Nonoliguric. UA shows trace protein and small blood, otherwise unremarkable. Ultrasound on 09/02/2024 did not show any evidence of obstruction. 2. Acute on chronic hypoxic respiratory failure secondary to pneumonia and COPD exacerbation 3. Sepsis from pneumonia 4. Chronic kidney disease stage IV with baseline creatinine about 2.3 mg/dL secondary to nephrosclerosis 4. Cardiomyopathy with EF of 35 to 40% 5. Chronic A-fib 6. History of hepatitis C 7. History of hepatocellular carcinoma Plan: Resume home dose of oral Lasix 40 mg BID Continue with antibiotics Repeat labs in a.m. Avoid nephrotoxic agents
[2024-09-19 11:31] LABS: Glucose,Whole Blood 204 mg/dL (70-110)
[2024-09-19 11:41] LABS: Platelet Count 61 10*3/uL (140-440)
--- NOTE | 2024-09-19 13:42 | P.PN ---
Subjective Progress Note Date: 09/19/24 Principal diagnosis: Acute bilateral pneumonia, possibly hospital-acquired with acute on chronic hypoxic respiratory failure This is a 74-year-old male patient with multiple medical problems and coming into the department having chest discomfort, cough, congestion and worsening shortness of breath. He is chronically debilitated and is willing more weak than usual. Denies having any fever. No hemoptysis. No pleurisy. Noted, the patient was hospitalized few days back and the patient was discharged home and his condition decompensated over the past 24 hours. The patient had a follow-up chest x-ray in the emergency department that showed development of new bilateral lower lobe pulmonary filtrates consistent with pneumonia. The patient was hypoxic and his oxygen requirements progressively got worse and is currently on 15 L of oxygen by nasal cannula with a pulse ox of 93%. He typically uses oxygen between 2 and 3 L. He remains in chronic atrial fibrillation. The white cell count is 8.9 with a hemoglobin 11.9 and a platelet count of 142. BUN is 64 with a creatinine of 2.7 and sodium levels at 138. Potassium level is at 4.4. Initial lactic acid level was at 3.1 down to 1.6. Procalcitonin level is pending. proBNP level is 26,100. Troponins at 0.03. Rest of the liver function tests are normal. The viral screen is negative. Based on his clinical presentation, I ordered a noncontrast CAT scan of the chest and the CAT scan showed cardiomegaly, splenomegaly, small bilateral pleural effusion, bibasilar pulmonary consolidation in addition to consolidation of the right middle lobe and the findings are quite suspicious for an underlying pneumonia. The patient accordingly was started on Zosyn and is also on Zithromax. On a separate note, the patient was noted to be hypotensive. He was started on low-dose norepinephrine for hemodynamic support. The patient is currently on norepinephrine running at 0.05 mcg/kg/min. Awake and alert and communicating His comorbidities are multiple and the patient is known to have COPD, chronic stage III kidney disease, congestion heart failure with a ejection fraction of 35 to 40% and the patient has moderate degree of aortic stenosis and mild pulmonary hypertension, chronic A-fib, hypertension, history of pancytopenia as the patient has previous history of hepatitis C and history of hepatocellular ca rcinoma and he also has previous history of coronary artery disease with previous LA and hypertension and the patient has a permanent pacemaker in place. Patient was seen today on 09/14/2024, patient remains in the ICU, on 3 L nasal cannula, he has significant pneumonia bilaterally possibly aspiration related or could be hospital-acquired pneumonia. In addition the patient has hemoptysis, I went ahead and held his Eliquis today. Patient is on antibiotics in the form of Zosyn and Zithromax, he is also on bronchodilators, and he is supposed to follow-up at [facility] on Saturday for his severe aortic stenosis, however looking at the overall picture, patient is not going to be discharged before Saturday considering the extensiveness of his pneumonia. Hence I will ask the admitting physician to consider transferring the patient to [facility] if possible. In the meantime patient is on antibiotics in the form of Zithromax and Zosyn, and he is on 3 L nasal cannula, not in distress. WBC count is 1.45 hemoglobin 9.2 electrolytes are normal BUN is 75 creatinine 3.36. Seems to be getting worse. Urine Legionella antigen is negative. Patient was seen today on 09/15/24, on 3 L nasal cannula, remains in the ICU, complaining of difficulty swallowing, patient continues to have bibasilar consolidation, chest x-ray showing slight improvement clinically the patient is about the same but he seems to be more bothered with his difficulty swallowing. Patient remains on antibiotics in the form of Zosyn and Zithromax, he is on bronchodilators, he does have history of severe aortic stenosis, and he supposedly has an appointment with cardiology at [facility] tomorrow. But this is most likely going to be canceled and he will have to set up another appointment on outpatient basis. WBC count today is 1.59 hemoglobin is 8.7 electrolytes are normal BUN is 85 creatinine 3.33. Again his chest x-ray showed slight improvement in his bilateral pneumonia but definitely not resolved. Patient was seen today on 09/17/2024, patient continues to do poorly, not making a significant improvement, remains on Zosyn, sputum cultures are nondiagnostic patient continues to have blood-tinged sputum chest x-ray continues to show bilateral pneumonia. WBC count is 2.41, hemoglobin is 9.1 electrolytes are normal BUN is 100 creatinine 2.98. Seen today on 09/06, patient is about the same, continues to have cough, shortness of breath, and occasional episodes of blood-tinged sputum. His Eliquis remains on hold, patient denies any chest pain or chest pressure, continues to have low WBC count of 1.26 hemoglobin is 8.8 platelets are 67,000's electrolytes are normal BUN is 102 creatinine 2.85 Seen today on 09/19/2024, still about the same, not noticing any improvement, continues to have intermittent episodes of slightly blood-tinged sputum, extremely reluctant to proceed with bronchoscopy. Patient was seen by infectious disease on consultation, he developed now C. difficile colitis. Patient has been on Zosyn for quite some time, I will go ahead and discontinue Zosyn today, patient is receiving oral vancomycin for his C. difficile colitis. Continues to have leukopenia with anemia hemoglobin 8.3 and low platelets patient basically has pancytopenia his renal profile is slightly improved. Objective - Vital Signs Vital signs: Vital Signs Temp 97.2 F L 09/19/24 11:01 Pulse 78 09/19/24 12:19 Resp 20 09/19/24 11:01 BP 160/91 09/19/24 11:01 Pulse Ox 100 09/19/24 11:01 FiO2 Intake & Output 09/18/24 09/19/24 09/19/24 18:59 06:59 18:59 Intake Total 20 490 Output Total 300 150 300 Balance -280 -150 190 Weight 90.8 kg 91.9 kg Intake: IV 20 10 Invasive Line 2 10 Invasive Line 3 10 10 Oral 480 Output: Urine 300 150 300 Other: Voiding Method Urinal Urinal Urinal # Voids 0 # Bowel Movements 1 - Exam Physical exam reveals 74-year-old white male in no distress, on 5 L nasal cannula patient looks frail and chronically ill O2 saturation is 100% Head: Atraumatic normocephalic HEENT: PERRLA, EOMI, nonicteric no neck masses no JVD Mild carotid bruit, sys tolic murmur radiating to carotids elevated jugular venous distention. Lungs: Crackles and rhonchi noted bilaterally Heart: Irregular pulse, 3/6 systolic murmur Abdomen: Soft nontender, positive bowel sounds. Extremities: 1+ lower extremity edema Neuro: Alert oriented x 3 no gross focal deficit Psychiatric: Normal mood affect and no mental status examination Skin: No rashes - Labs CBC & Chem 7: 09/19/24 08:06 09/19/24 08:06 Labs: Abnormal Lab Results - Last 24 Hours (Table) 09/18/24 09/18/24 09/19/24 Range/Units 16:40 20:01 03:18 WBC (4.50-10.00) 10*3/uL RBC (4.40-5.60) 10*6/uL Hgb (13.0-17.0) g/dL Hct (39.6-50.0) % MCH (27.0-32.0) pg MCHC (32.0-37.0) g/dL Plt Count (140-440) 10*3/uL BUN (9-20) mg/dL Creatinine (0.66-1.25) mg/dL Glucose (74-99) mg/dL POC Glucose (mg/dL) 193 H 215 H (70-110) mg/dL Magnesium (1.6-2.3) mg/dL Total Protein (6.3-8.2) g/dL Albumin (3.5-5.0) g/dL C. difficile (EIA) Intrp Positive A (Negative) 09/19/24 09/19/24 09/19/24 Range/Units 05:52 08:06 08:06 WBC 1.02 L* (4.50-10.00) 10*3/uL RBC 3.16 L (4.40-5.60) 10*6/uL Hgb 8.3 L (13.0-17.0) g/dL Hct 27.5 L (39.6-50.0) % MCH 26.3 L (27.0-32.0) pg MCHC 30.2 L (32.0-37.0) g/dL Plt Count 61 L (140-440) 10*3/uL BUN 103 H* (9-20) mg/dL Creatinine 2.82 H (0.66-1.25) mg/dL Glucose 145 H (74-99) mg/dL POC Glucose (mg/dL) 167 H (70-110) mg/dL Magnesium 2.6 H (1.6-2.3) mg/dL Total Protein 5.8 L (6.3-8.2) g/dL Albumin 3.2 L (3.5-5.0) g/dL C. difficile (EIA) Intrp (Negative) 09/19/24 Range/Units 11:29 WBC (4.50-10.00) 10*3/uL RBC (4.40-5.60) 10*6/uL Hgb (13.0-17.0) g/dL Hct (39.6-50.0) % MCH (27.0-32.0) pg MCHC (32.0-37.0) g/dL Plt Count (140-440) 10*3/uL BUN (9-20) mg/dL Creatinine (0.66-1.25) mg/dL Glucose (74-99) mg/dL POC Glucose (mg/dL) 204 H (70-110) mg/dL Magnesium (1.6-2.3) mg/dL Total Protein (6.3-8.2) g/dL Albumin (3.5-5.0) g/dL C. difficile (EIA) Intrp (Negative) Microbiology - Last 24 Hours (Table) 09/17/24 16:00 Gram Stain - Final Sputum Sputum Culture - Final 09/13/24 01:58 Blood Culture - Final Blood Assessment and Plan Assessment: Impression: Acute on chronic hypoxic respiratory failure Acute bilateral pneumonia could be aspiration pneumonia or could be hospital- acquired pneumonia patient received over 2 weeks of IV Zosyn hence I will discontinue Zosyn today. 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 difficile colitis on oral vancomycin patient is being followed by ID Recommendation: Discontinue Zosyn Continue oral vancomycin for C. difficile colitis Change methylprednisolone to oral prednisone Continue Protonix/GI prophylaxis Continue amiodarone for atrial fibrillation Continue bronchodilators and steroids for COPD Not a great candidate for bronchoscopy and BAL, this was discussed again with the patient today and given that option, however patient declines as long as there is a small chance that the patient may end up requiring intubation mechanical ventilation and for the procedure itself I would have to change his CODE STATUS to full code patient is extremely reluctant to do so. Overall prognosis remains guarded . Will continue to follow Time with Patient: Less than 30
[2024-09-19] MEDS: FUROSEMIDE 40 MG TAB PO SCH (16:04)
[2024-09-19 16:19] LABS: Glucose,Whole Blood 246 mg/dL (70-110)
--- NOTE | 2024-09-19 19:14 | P.PN ---
Subjective Progress Note Date: 09/19/24 74-year-old male, history of COPD, CAD/CHF, aortic stenosis, atrial fibrillation, hypertension, CKD, presents to ED with complaint chest discomfort and worsening shortness of breath. He is chronically debilitated and is willing more weak than usual; patient was hospitalized few days back and the patient was discharged home and his condition decompensated over the past 24 hours. The patient was hypoxic and his oxygen requirements progressively got worse and is currently on 15 L of oxygen by nasal cannula with a pulse ox of 93%. He typically uses oxygen between 2 and 3 L. Chest x-ray in the emergency department that showed development of new bilateral lower lobe pulmonary filtrates consistent with pneumonia. - The white cell count is 8.9 with a hemoglobin 11.9 and a platelet count of 142. BUN is 64 with a creatinine of 2.7 and sodium levels at 138. Potassium level is at 4.4. Initial lactic acid level was at 3.1 down to 1.6. Procalcitonin level is pending. proBNP level is 26,100. Troponins at 0.03. Rest of the liver function tests are normal. The viral screen is negative. -CAT scan showed cardiomegaly, splenomegaly, small bilateral pleural effusion, bibasilar pulmonary consolidation in addition to consolidation of the right middle lobe and the findings are quite suspicious for an underlying pneumonia. The patient was started on Zosyn and is also on Zithromax per pulmonary recommendation. While in ED, the patient was noted to be hypotensive. He was started on low-dose norepinephrine for hemodynamic support. The patient is currently on norepinephrine running at 0.05 mcg/kg/min. Awake and alert and communicating 09/14/2024 Patient is seen in follow-up today in the ICU with pulmonary and cardiology following for pneumonia and CHF exacerbation. Patient currently on 3 L via nasal continues with extensive pneumonia maintained on Zithromax. Ceftriaxone was discontinued per pulmonary and started on Zosyn. Preliminary blood cultures are no growth and sputum culture is ordered and pending at this time. Patient's kidney functions are elevated above 3 creatinine and will consult nephrology and appreciate input and recommendations. Pulmonary connection worker recommending possible transfer for tertiary treatment as patient was scheduled to undergo cardiac intervention at [facility] and feels he would benefit from being evaluated by them continuing care for his surgical procedure. Pretesting was to be done on this Saturday regarding CAT scans, blood work, further imaging. Given patient's extensive comorbidities and ongoing issues would recommend transfer to tertiary treatment. Will attempt to contact transfer center to discuss possible transfer. 09/15/2024. Patient is seen in follow-up today continues in the ICU although is a downgrade to 3 S. once a bed becomes available. Patient continues on 3 L with pulmonary and cardiology following maintained on antibiotics and sputum culture remains pending. Creatinine is 3.33 nephrology consulted and appreciate input and recommendations regarding acute on chronic kidney disease with LONDON. Patient is afebrile although reports continued shortness of breath. Patient was scheduled for outpatient testing for further surgical intervention with [facility] this Saturday although will likely need to be rescheduled. Patient does not appear to be a good surgical candidate and is high risk given significant comorbidities. Encouraged to increase activity as tolerated and patient is reporting significant difficulty and pain with swallowing. Speech is consulted and will likely undergo swallow study 09/16/2024 Patient is seen and evaluated in follow-up reporting he does not feel well and continues to be short of breath and reporting continued difficulty with swallowing although underwent modified barium swallow study and is recommended to continue on current regimen and soft foods. Patient white count remains low although slightly improved at 2.49, hemoglobin is stable at 9.1 although cont inues to report coughing and spitting up blood at times. Eliquis remains on hold and platelet count is low at 68. Sodium 140 with a potassium of 4.6, BUN 92 and creatinine is 3.21. Nephrology following along with pulmonary, cardiology and continued on IV steroids along with breathing treatments. 09/17/2024 Patient is seen in follow-up today and continues to report shortness of breath and hemoptysis and not feeling much improved. Kidney functions are trending down with nephrology following and will continue current regimen. Hemoglobin remained stable at the increased hemoptysis. Sodium is 138 with a potassium of 4.5, BUN is 100 with a creatinine of 2.98. Blood sugars being monitored and will continue current regimen. Patient is maintained on IV steroids along with breathing treatments and antibiotics and will continue. Patient continues to have persistent cough with no real improvement is maintained on antibiotics and will consult infectious disease and appreciate input and recommendations. Patient continues have significant wheezing and IV steroids being advanced. 09/18/2024 Patient is seen and evaluated this morning continues to show no significant improvement with continued shortness of breath and cough. Lung sounds are congested and rhonchorous with wheezing noted. Abdomen is distended and patient is reporting no abdominal pain and is having bowel movements that are loose. Pulmonary following and patient does not appear to be a candidate for bronchoscopy. Infectious disease was consulted and appreciate input and recommendations regarding persistent with pneumonia with no improvements, preliminary cultures have been negative thus far. Patient is no code and this was addressed again as patient is discussing further with family about overall prognosis and does not want to end up on a mechanical ventilator and unsure if he wants to have a bronchoscopy or any further intervention. 09/19/2024 Patient is evaluated in follow-up on the cardiac unit. He continues to have rhonchorous lung sounds and also wheezing noted. Patient was found to be C. difficile positive. He has been started on oral vancomycin. IV zosyn to be discontinued. Hospice was discussed patient wants to see how he improves over the next few days. WBC 1.02, hgb 8.3, platelet count 61, BUN 103, creatinine 2.82. Review of systems: Constitutional: No reports of fatigue, fever, or chills Cardiovascular: No reports of chest pain or palpitations Respiratory: reports of continued shortness of breath and persistent cough GI: No reports of nausea, vomiting, reports diarrhea, reports not much of an appetite and still having difficulties with swallowing things, eating only soft foods on occasion : No reports of dysuria or retention Neurovascular: reports of generalized weakness All medications have been reviewed Physical exam: Gen: This is a 74-year-old male who is awake, alert and oriented x 3, thin built, elderly appearing, ill-appearing HEENT: Head is atraumatic, normocephalic. Pupils equal, round. Sclerae is anicteric. NECK: Supple. No JVD. No lymphadenopathy. No thyromegaly. LUNGS: Diminished breath sounds bilaterally with coarse scattered rhonchi noted, bronchial congestion and faint crackles with expiratory wheezing. No intercostal retractions. HEART: S1, S2 are muffled ABDOMEN: Soft. More distended and nontender, bowel sounds are present. No stuart s. No tenderness. EXTREMITIES: No pedal edema. No calf tenderness. Mild bilateral lower extremity edema noted NEUROLOGICAL: Patient is awake, alert and oriented x3. Cranial nerves 2 through 12 are grossly intact. Diffusely weak Assessment: -Acute C. difficile colitis -Acute bilateral lower lobe pneumonia/likely gram-negative pneumonia of the right lung base, with sepsis present on admission, cultures thus far negative -Acute on chronic hypoxic respiratory failure; currently on 3 L of oxygen by nasal cannula -Acute hypotension; likely secondary to sepsis and the patient was on low-dose norepinephrine which has been discontinued. -Acute exacerbation COPD -Chronic systolic heart failure. Most recent EF revealing impaired LV function with an EF of 35 to 40% with moderate degree of aortic valve stenosis. Aortic dilatation at the level of the root also noted with moderate RV dilatation and mild pulmonary -hypertension history -Chronic atrial fibrillation, currently rate controlled, maintained on anticoagulation with Eliquis although being held for continued hemoptysis -Chronic stage III kidney disease, with acute LONDON, worsening kidney functions -History of implantation of permanent pacemaker. -History of hepatitis C/chronic liver disease/hepatocellular carcinoma. 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 -Hepatocellular carcinoma. GI prophylaxis DVT prophylaxis; SCDs/systemic anticoagulation DNR Plan: Patient was recently transferred out of the ICU with multiple consultations following including cardiology, nephrology, pulmonary. Patient continues on IV steroids and [id number] breathing treatments along with supplemental oxyg en. Patient continues to report shortness of breath with minimal exertion and continued cough with occasional bleeding noted. Eliquis is on hold and sputum culture thus far is negative. Repeat sputum culture ordered and pending hemoglobin is stable at 8.8 and will continue to monitor. Transfuse if 7 or less nephrology following for acute on chronic kidney disease with worsening kidney functions. Creatinine slightly improved at 2. 8 5 today Patient is pancytopenic secondary to chronic liver disease also underlying infection with noted thrombocytopenia and leukopenia. This appears chronic as well Follow-up on repeat labs and replace electrolytes per protocol There was discussion of possible transfer for tertiary treatment to [facility] and patient will likely need to reschedule upcoming testing for possible cardiology intervention at [facility] later date. Patient will not be accepted for transfer at this time Encouraged increased activity as tolerated. Patient underwent swallow study with no signs of aspiration although continues to have difficulty with swallowing, recommend soft and/or liquid diet as tolerated. Patient is debilitated and lethargic at times and extremely weak, would recommend aspiration precautions and supervision with meals Patient having multiple episodes of loose stools and C. difficile was found to be positive he is started on oral vancomycin Discussion was had about the need for possible bronchoscopy although patient does not appear to be a stable candidate for intervention like this at this time and patient reports he is unsure if he wants to proceed with this as well. Patient is no code discuss further with family regarding overall treatment plan moving forward. Due to multiple complex medical issues, overall prognosis is extremely poor and guarded The impression and plan of care has been dictated by Taylor Mitchell, Nurse Practitioner as directed. Dr. Ranulfo MD I have performed a history and examination and MDM of this patient, discussed the same with the dictator, and agree with the dictator's assessment and plan as written ,documented as a scribe. Based on total visit time, I have performed more than 50% of the visit. Objective - Vital Signs Vital signs: Vital Signs Temp 97.6 F 09/19/24 08:25 Pulse 80 09/19/24 09:07 Resp 16 09/19/24 08:25 BP 150/86 09/19/24 08:25 Pulse Ox 99 09/19/24 08:55 FiO2 Intake & Output 09/18/24 09/19/24 09/19/24 18:59 06:59 18:59 Intake Total 20 10 Output Total 300 150 Balance -280 -150 10 Weight 90.8 kg 91.9 kg Intake: IV 20 10 Invasive Line 2 10 Invasive Line 3 10 10 Output: Urine 300 150 Other: Voiding Method Urinal Urinal Urinal # Voids 0 # Bowel Movements 1 - Labs CBC & Chem 7: 09/19/24 08:06 09/19/24 08:06 Labs: Abnormal Lab Results - Last 24 Hours (Table) 09/18/24 09/18/24 09/18/24 Range/Units 11:40 16:40 20:01 POC Glucose (mg/dL) 233 H 193 H 215 H (70-110) mg/dL C. difficile (EIA) Intrp (Negative) 09/19/24 09/19/24 Range/Units 03:18 05:52 POC Glucose (mg/dL) 167 H (70-110) mg/dL C. difficile (EIA) Intrp Positive A (Negative) Microbiology - Last 24 Hours (Table) 09/13/24 01:58 Blood Culture - Final Blood 09/17/24 16:00 Gram Stain - Preliminary Sputum Sputum Culture - Preliminary Assessment and Plan Time with Patient: Less than 30
--- NOTE | 2024-09-19 19:50 | P.PN ---
Subjective Progress Note Date: 09/19/24 Principal diagnosis: Reason for follow-up is C. difficile colitis Patient is a 74-year-old male with a past medical history significant for hypertension [place] heart failure with COPD hepatocellular carcinoma/hepatitis C patient presenting to the hospital a on 09/13/2024 concerning for increasing shortness of breath along with A-fib with RVR there was a concern for pneumonia treated with Zosyn. On today's evaluation that is 09/20/2023, patient did have a temperature of 98 F this morning and denies having any chills, patient is on 5 L nasal oxygen still complaining of shortness of breath on exertion he did have a cough with occasional sputum no nausea vomiting no abdominal pain did have diarrhea. Patient white count is 1.02, creatinine is 2.82 stool for C. difficile is positive sputum culture x 2 has been negative Objective - Vital Signs Vital signs: Vital Signs Temp 97.2 F L 09/19/24 11:01 Pulse 78 09/19/24 12:19 Resp 20 09/19/24 11:01 BP 160/91 09/19/24 11:01 Pulse Ox 100 09/19/24 11:01 FiO2 Intake & Output 09/18/24 09/19/24 09/19/24 18:59 06:59 18:59 Intake Total 20 490 Output Total 300 150 300 Balance -280 -150 190 Weight 90.8 kg 91.9 kg Intake: IV 20 10 Invasive Line 2 10 Invasive Line 3 10 10 Oral 480 Output: Urine 300 150 300 Other: Voiding Method Urinal Urinal Urinal # Voids 0 # Bowel Movements 1 - Exam GENERAL DESCRIPTION: An elderly male up in the chair in no distress RESPIRATORY SYSTEM: Unlabored breathing , coarse breath sounds bilaterally HEART: S1 S2 regular rate and rhythm , ABDOMEN: Soft , no tenderness - Labs CBC & Chem 7: 09/19/24 08:06 09/19/24 08:06 Labs: Abnormal Lab Results - Last 24 Hours (Table) 09/18/24 09/18/24 09/19/24 Range/Units 16:40 20:01 03:18 WBC (4.50-10.00) 10*3/uL RBC (4.40-5.60) 10*6/uL Hgb (13.0-17.0) g/dL Hct (39.6-50.0) % MCH (27.0-32.0) pg MCHC (32.0-37.0) g/dL Plt Count (140-440) 10*3/uL BUN (9-20) mg/dL Creatinine (0.66-1.25) mg/dL Glucose (74-99) mg/dL POC Glucose (mg/dL) 193 H 215 H (70-110) mg/dL Magnesium (1.6-2.3) mg/dL Total Protein (6.3-8.2) g/dL Albumin (3.5-5.0) g/dL C. difficile (EIA) Intrp Positive A (Negative) 09/19/24 09/19/24 09/19/24 Range/Units 05:52 08:06 08:06 WBC 1.02 L* (4.50-10.00) 10*3/uL RBC 3.16 L (4.40-5.60) 10*6/uL Hgb 8.3 L (13.0-17.0) g/dL Hct 27.5 L (39.6-50.0) % MCH 26.3 L (27.0-32.0) pg MCHC 30.2 L (32.0-37.0) g/dL Plt Count 61 L (140-440) 10*3/uL BUN 103 H* (9-20) mg/dL Creatinine 2.82 H (0.66-1.25) mg/dL Glucose 145 H (74-99) mg/dL POC Glucose (mg/dL) 167 H (70-110) mg/dL Magnesium 2.6 H (1.6-2.3) mg/dL Total Protein 5.8 L (6.3-8.2) g/dL Albumin 3.2 L (3.5-5.0) g/dL C. difficile (EIA) Intrp (Negative) 09/19/24 Range/Units 11:29 WBC (4.50-10.00) 10*3/uL RBC (4.40-5.60) 10*6/uL Hgb (13.0-17.0) g/dL Hct (39.6-50.0) % MCH (27.0-32.0) pg MCHC (32.0-37.0) g/dL Plt Count (140-440) 10*3/uL BUN (9-20) mg/dL Creatinine (0.66-1.25) mg/dL Glucose (74-99) mg/dL POC Glucose (mg/dL) 204 H (70-110) mg/dL Magnesium (1.6-2.3) mg/dL Total Protein (6.3-8.2) g/dL Albumin (3.5-5.0) g/dL C. difficile (EIA) Intrp (Negative) Microbiology - Last 24 Hours (Table) 09/17/24 16:00 Gram Stain - Final Sputum Sputum Culture - Final 09/13/24 01:58 Blood Culture - Final Blood Assessment and Plan (1) Pneumonia Current Visit: Yes Status: Acute Code(s): J18.9 - PNEUMONIA, UNSPECIFIED ORGANISM SNOMED Code(s): 659856100 (2) Leukopenia Current Visit: Yes Status: Acute Code(s): D72.819 - DECREASED WHITE BLOOD CELL COUNT, UNSPECIFIED SNOMED Code(s): 72859429 (3) C. difficile colitis Current Visit: Yes Status: Acute Code(s): A04.72 - ENTEROCOLITIS D/T CLOSTRIDIUM DIFFICILE, NOT SPCF RECUR SNOMED Code(s): 923379691 Plan: 1patient presented to hospital with increasing shortness of breath which is likely multifactorial possible combination of fluid overload which could be related to his cardiac/renal condition plus minus a component of pneumonia not entirely excluded 2sputum culture x 2 has been negative patient has received adequate Zosyn during this hospital stay now with developing diarrhea and C. difficile recommend to discontinue Zosyn this was discussed with the SAP SD ANALYST for admitting team 3patient started on oral vancomycin for C. difficile colitis encouraged to increase his yogurt intake, avoid antimotility agent Dictation was produced using [employer] dictation software. please excuse any grammatical, word or spelling errors. Time with Patient: Less than 30
[2024-09-19 19:52] LABS: Glucose,Whole Blood 218 mg/dL (70-110)
[2024-09-20 05:56] LABS: Glucose,Whole Blood 166 mg/dL (70-110)
--- NOTE | 2024-09-20 07:21 | XR ---
EXAMINATION TYPE: XR chest 1V portable DATE OF EXAM: 09/20/2024 4:35 AM COMPARISON: Chest radiograph from one day prior. CLINICAL INDICATION: Male, 74 years old with history of CHF; [facility] TECHNIQUE: XR chest 1V portable Frontal view of the chest. FINDINGS: Lungs/Pleura: Similar right airspace opacities. No evidence of focal consolidation or pneumothorax. B lunting of the costophrenic angles is present. Pulmonary vascularity: Unremarkable. Heart/mediastinum: Cardiomediastinal silhouette is unremarkable. Two lead cardiac conduction device o verlying the left hemithorax with lead tips projecting over the right ventricle and right atrium. Musculoskeletal: No acute osseous pathology. Other findings: Right neck surgical clips. IMPRESSION: Similar right basilar airspace opacities airspace opacities. Blunting of the costophrenic angle suggestive of pleural effusions. [facility], , 09/20/2024 7:18 AM
[2024-09-20 07:40] LABS: HCT 28.4 % (39.6-50.0); HGB 8.6 g/dL (13.0-17.0); Lymphocytes # (A) 0.06 10*3/uL (0.90-5.00); Lymphocytes % (A) 3.8 %; MCHC 30.3 g/dL (32.0-37.0); MCV 85.8 fL (80.0-97.0); Mean Platelet Volume 9.7 fL (9.5-12.2); Monocytes # (A) 0.08 10*3/uL (0.20-1.00); Neutrophils # (A) 1.42 10*3/uL (1.80-7.70); Neutrophils % (A) 88.7 %; RBC 3.31 10*6/uL (4.40-5.60); RDW 16.8 % (11.5-14.5)
[2024-09-20 07:53] LABS: Platelet Count 70 10*3/uL (140-440)
[2024-09-20 08:07] LABS: African American GFR (CKD) 25 (>60 ml/min/1.73 sqM); Anion Gap 13 mmol/L; Calcium 8.7 mg/dL (8.4-10.2); Carbon Dioxide 22 mmol/L (22-30); Chloride 104 mmol/L (98-107); Glucose 147 mg/dL (74-99); Non-African American GFR(CKD) 22 (>60 ml/min/1.73 sqM); Potassium 4.8 mmol/L (3.5-5.1); Sodium 139 mmol/L (137-145)
[2024-09-20 08:28] LABS: Blood Urea Nitrogen 109 mg/dL (9-20)
[2024-09-20] MEDS: predniSONE 10 MG TAB PO SCH (09:00)
--- NOTE | 2024-09-20 09:14 | P.PN ---
Subjective Progress Note Date: 09/20/24 Patient is seen for follow-up of chronic kidney disease and acute kidney injury. Currently not on diuretics or IV fluids Maintained on steroids for COPD exacerbation. Shortness of breath improved with increased dose of steroids. Renal function slightly improved with serum creatinine down to 2.7. stable BUN is disproportionately elevated secondary to steroids Objective - Vital Signs Vital signs: Vital Signs Temp 97.4 F L 09/20/24 08:55 Pulse 96 09/20/24 09:08 Resp 16 09/20/24 08:55 BP 152/81 09/20/24 08:55 Pulse Ox 100 09/20/24 08:55 FiO2 Intake & Output 09/19/24 09/20/24 09/20/24 18:59 06:59 18:59 Intake Total 1220 480 Output Total 300 325 Balance 920 -325 480 Weight 93.2 kg Intake: IV 20 Invasive Line 3 20 Oral 1200 480 Output: Urine 300 325 Other: Voiding Method Urinal Urinal # Bowel Movements 1 - Exam Patient is awake, comfortable, no acute distress Examination of the heart S1 and S2 Examination of the lungs decreased breath sounds at the bases occasional wheezing heard Abdomen is soft Examination lower extremity shows 1+ edema, chronic [employer] GRINDING exam grossly intact - Labs CBC & Chem 7: 09/20/24 07:03 09/20/24 07:03 Labs: Abnormal Lab Results - Last 24 Hours (Table) 09/19/24 09/19/24 09/19/24 Range/Units 08:06 08:06 11:29 WBC 1.02 L* (4.50-10.00) 10*3/uL RBC 3.16 L (4.40-5.60) 10*6/uL Hgb 8.3 L (13.0-17.0) g/dL Hct 27.5 L (39.6-50.0) % MCH 26.3 L (27.0-32.0) pg MCHC 30.2 L (32.0-37.0) g/dL Plt Count 61 L (140-440) 10*3/uL Neutrophils # (1.80-7.70) 10*3/uL Lymphocytes # (0.90-5.00) 10*3/uL Monocytes # (0.20-1.00) 10*3/uL Eosinophils # (0.04-0.35) 10*3/uL BUN 103 H* (9-20) mg/dL Creatinine 2.82 H (0.66-1.25) mg/dL Glucose 145 H (74-99) mg/dL POC Glucose (mg/dL) 204 H (70-110) mg/dL Magnesium 2.6 H (1.6-2.3) mg/dL Total Protein 5.8 L (6.3-8.2) g/dL Albumin 3.2 L (3.5-5.0) g/dL 09/19/24 09/19/24 09/20/24 Range/Units 16:17 19:51 05:54 WBC (4.50-10.00) 10*3/uL RBC (4.40-5.60) 10*6/uL Hgb (13.0-17.0) g/dL Hct (39.6-50.0) % MCH (27.0-32.0) pg MCHC (32.0-37.0) g/dL Plt Count (140-440) 10*3/uL Neutrophils # (1.80-7.70) 10*3/uL Lymphocytes # (0.90-5.00) 10*3/uL Monocytes # (0.20-1.00) 10*3/uL Eosinophils # (0.04-0.35) 10*3/uL BUN (9-20) mg/dL Creatinine (0.66-1.25) mg/dL Glucose (74-99) mg/dL POC Glucose (mg/dL) 246 H 218 H 166 H (70-110) mg/dL Magnesium (1.6-2.3) mg/dL Total Protein (6.3-8.2) g/dL Albumin (3.5-5.0) g/dL 09/20/24 09/20/24 Range/Units 07:03 07:03 WBC 1.60 L (4.50-10.00) 10*3/uL RBC 3.31 L (4.40-5.60) 10*6/uL Hgb 8.6 L (13.0-17.0) g/dL Hct 28.4 L (39.6-50.0) % MCH 26.0 L (27.0-32.0) pg MCHC 30.3 L (32.0-37.0) g/dL Plt Count 70 L (140-440) 10*3/uL Neutrophils # 1.42 L (1.80-7.70) 10*3/uL Lymphocytes # 0.06 L (0.90-5.00) 10*3/uL Monocytes # 0.08 L (0.20-1.00) 10*3/uL Eosinophils # 0.00 L (0.04-0.35) 10*3/uL BUN 109 H* (9-20) mg/dL Creatinine 2.79 H (0.66-1.25) mg/dL Glucose 147 H (74-99) mg/dL POC Glucose (mg/dL) (70-110) mg/dL Magnesium (1.6-2.3) mg/dL Total Protein (6.3-8.2) g/dL Albumin (3.5-5.0) g/dL Microbiology - Last 24 Hours (Table) 09/17/24 16:00 Gram Stain - Final Sputum Sputum Culture - Final Assessment and Plan Assessment: 1. Acute kidney injury secondary to ATN from hypotension and sepsis. N onoliguric. UA shows trace protein and small blood, otherwise unremarkable. Ultrasound on 09/02/2024 did not show any evidence of obstruction. 2. Acute on chronic hypoxic respiratory failure secondary to pneumonia and COPD exacerbation 3. Sepsis from pneumonia 4. Chronic kidney disease stage IV with baseline creatinine about 2.3 mg/dL secondary to nephrosclerosis 4. Cardiomyopathy with EF of 35 to 40% 5. Chronic A-fib 6. History of hepatitis C 7. History of hepatocellular carcinoma Plan: continue home dose PO Lasix 40 mg BID Continue with antibiotics Repeat labs in a.m. Avoid nephrotoxic agents
[2024-09-20 11:39] LABS: Glucose,Whole Blood 186 mg/dL (70-110)
--- NOTE | 2024-09-20 13:56 | P.PN ---
Subjective Progress Note Date: 09/20/24 74-year-old male, history of COPD, CAD/CHF, aortic stenosis, atrial fibrillation, hypertension, CKD, presents to ED with complaint chest discomfort and worsening shortness of breath. He is chronically debilitated and is willing more weak than usual; patient was hospitalized few days back and the patient was discharged home and his condition decompensated over the past 24 hours. The patient was hypoxic and his oxygen requirements progressively got worse and is currently on 15 L of oxygen by nasal cannula with a pulse ox of 93%. He typically uses oxygen between 2 and 3 L. Chest x-ray in the emergency department that showed development of new bilateral lower lobe pulmonary filtrates consistent with pneumonia. - The white cell count is 8.9 with a hemoglobin 11.9 and a platelet count of 142. BUN is 64 with a creatinine of 2.7 and sodium levels at 138. Potassium level is at 4.4. Initial lactic acid level was at 3.1 down to 1.6. Procalcitonin level is pending. proBNP level is 26,100. Troponins at 0.03. Rest of the liver function tests are normal. The viral screen is negative. -CAT scan showed cardiomegaly, splenomegaly, small bilateral pleural effusion, bibasilar pulmonary consolidation in addition to consolidation of the right middle lobe and the findings are quite suspicious for an underlying pneumonia. The patient was started on Zosyn and is also on Zithromax per pulmonary recommendation. While in ED, the patient was noted to be hypotensive. He was started on low-dose norepinephrine for hemodynamic support. The patient is currently on norepinephrine running at 0.05 mcg/kg/min. Awake and alert and communicating 09/14/2024 Patient is seen in follow-up today in the ICU with pulmonary and cardiology following for pneumonia and CHF exacerbation. Patient currently on 3 L via nasal continues with extensive pneumonia maintained on Zithromax. Ceftriaxone was discontinued per pulmonary and started on Zosyn. Preliminary blood cultures are no growth and sputum culture is ordered and pending at this time. Patient's kidney functions are elevated above 3 creatinine and will consult nephrology and appreciate input and recommendations. Pulmonary senior staff specialized employment recommending possible transfer for tertiary treatment as patient was scheduled to undergo cardiac intervention at [facility] and feels he would benefit from being evaluated by them continuing care for his surgical procedure. Pretesting was to be done on this Saturday regarding CAT scans, blood work, further imaging. Given patient's extensive comorbidities and ongoing issues would recommend transfer to tertiary treatment. Will attempt to contact transfer center to discuss possible transfer. 09/15/2024. Patient is seen in follow-up today continues in the ICU although is a downgrade to 3 S. once a bed becomes available. Patient continues on 3 L with pulmonary and cardiology following maintained on antibiotics and sputum culture remains pending. Creatinine is 3.33 nephrology consulted and appreciate input and recommendations regarding acute on chronic kidney disease with LONDON. Patient is afebrile although reports continued shortness of breath. Patient was scheduled for outpatient testing for further surgical intervention with Jarrod Akers this Saturday although will likely need to be rescheduled. Patient does not appear to be a good surgical candidate and is high risk given significant comorbidities. Encouraged to increase activity as tolerated and patient is reporting significant difficulty and pain with swallowing. Speech is consulted and will likely undergo swallow study 09/16/2024 Patient is seen and evaluated in follow-up reporting he does not feel well and continues to be short of breath and reporting continued difficulty with swallowing although underwent modified barium swallow study and is recommended to continue on current regimen and soft foods. Patient white count remains low although slightly improved at 2.49, hemoglobin is stable at 9.1 although cont inues to report coughing and spitting up blood at times. Eliquis remains on hold and platelet count is low at 68. Sodium 140 with a potassium of 4.6, BUN 92 and creatinine is 3.21. Nephrology following along with pulmonary, cardiology and continued on IV steroids along with breathing treatments. 09/17/2024 Patient is seen in follow-up today and continues to report shortness of breath and hemoptysis and not feeling much improved. Kidney functions are trending down with nephrology following and will continue current regimen. Hemoglobin remained stable at the increased hemoptysis. Sodium is 138 with a potassium of 4.5, BUN is 100 with a creatinine of 2.98. Blood sugars being monitored and will continue current regimen. Patient is maintained on IV steroids along with breathing treatments and antibiotics and will continue. Patient continues to have persistent cough with no real improvement is maintained on antibiotics and will consult infectious disease and appreciate input and recommendations. Patient continues have significant wheezing and IV steroids being advanced. 09/18/2024 Patient is seen and evaluated this morning continues to show no significant improvement with continued shortness of breath and cough. Lung sounds are congested and rhonchorous with wheezing noted. Abdomen is distended and patient is reporting no abdominal pain and is having bowel movements that are loose. Pulmonary following and patient does not appear to be a candidate for bronchoscopy. Infectious disease was consulted and appreciate input and recommendations regarding persistent with pneumonia with no improvements, preliminary cultures have been negative thus far. Patient is no code and this was addressed again as patient is discussing further with family about overall prognosis and does not want to end up on a mechanical ventilator and unsure if he wants to have a bronchoscopy or any further intervention. 09/19/2024 Patient is evaluated in follow-up on the cardiac unit. He continues to have rhonchorous lung sounds and also wheezing noted. Patient was found to be C. difficile positive. He has been started on oral vancomycin. IV zosyn to be discontinued. Hospice was discussed patient wants to see how he improves over the next few days. WBC 1.02, hgb 8.3, platelet count 61, BUN 103, creatinine 2.82. 09/20/2024 Patient is evaluated in follow-up in the cardiac floor. He remains on oral vancomycin due to the C. difficile colitis. He has had 1 bowel movement docum ented overnight. His labs today reveal a white blood cell count of 1.60, hemoglobin 8.6, platelet count of 70, BUN of 109 creatinine of 2.79. Had a chest x-ray this morning which reveals a similar right basilar airspace opacity and blunting of the costophrenic angle suggestive of pleural effusions. He is on 5 L of oxygen via nasal cannula. His sputum culture has been final and negative. No further hemoptysis reported. Review of systems: Constitutional: No reports of fatigue, fever, or chills Cardiovascular: No reports of chest pain or palpitations Respiratory: reports of continued shortness of breath and persistent cough GI: No reports of nausea, vomiting, reports diarrhea, reports not much of an appetite and still having difficulties with swallowing things, eating only soft foods on occasion : No reports of dysuria or retention Neurovascular: reports of generalized weakness All medications have been reviewed Physical exam: Gen: This is a 74-year-old male who is awake, alert and oriented x 3, thin built, elderly appearing, ill-appearing HEENT: Head is atraumatic, normocephalic. Pupils equal, round. Sclerae is anicteric. NECK: Supple. No JVD. No lymphadenopathy. No thyromegaly. LUNGS: Diminished breath sounds bilaterally with coarse scattered rhonchi noted, bronchial congestion and faint crackles with expiratory wheezing. No intercostal retractions. HEART: S1, S2 are muffled ABDOMEN: Soft. More distended and nontender, bowel sounds are present. No masses. No tenderness. EXTREMITIES: No pedal edema. No calf tenderness. Mild bilateral lower extremity edema noted NEUROLOGICAL: Patient is awake, alert and oriented x3. Cranial nerves 2 through 12 are grossly intact. Diffusely weak Assessment: -Acute C. difficile colitis -Acute bilateral lower lobe pneumonia/likely gram-negative pneumonia of the right lung base, with sepsis present on admission, cultures thus far negative -Acute on chronic hypoxic respiratory failure; currently on 3 L of oxygen by nasal cannula -Acute hypotension; likely secondary to sepsis and the patient was on low-dose norepinephrine which has been discontinued. -Acute exacerbation COPD -Chronic systolic heart failure. Most recent EF revealing impaired LV function with an EF of 35 to 40% with moderate degree of aortic valve stenosis. Aortic dilatation at the level of the root also noted with moderate RV dilatation and mild pulmonary -hypertension history -Chronic atrial fibrillation, currently rate controlled, maintained on anticoagulation with Eliquis although being held for continued hemoptysis -Chronic stage III kidney disease, with acute LOND[place], worsening kidney functions -History of implantation of permanent pacemaker. -History of hepatitis C/chronic liver disease/hepatocellular carcinoma. 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 -Hepatocellular carcinoma. GI prophylaxis DVT prophylaxis; SCDs/systemic anticoagulation DNR Plan: Patient continues to report shortness of breath with minimal exertion and continued cough with occasional bleeding noted. Eliquis is on hold. hemoglobin is stable at 8.8 and will continue to monitor. Transfuse if 7 or less nephrology following for acute on chronic kidney disease with worsening kidney functions. Creatinine slightly improved. Patient is pancytopenic secondary to chronic liver disease also underlying infection with noted thrombocytopenia and leukopenia. This appears chronic as well Follow-up on repeat labs and replace electrolytes per protocol There was discussion of possible transfer for tertiary treatment to [facility] and patient will likely need to reschedule upcoming testing for possible cardiology intervention at [facility] later date. Patient will not be accepted for transfer at this time Encouraged increased activity as tolerated. Patient underwent swallow study with no signs of aspiration although continues to have difficulty with swallowing, recommend soft and/or liquid diet as tolerated. Patient is debilitated and lethargic at times and extremely weak, would recommend aspiration precautions and supervision with meals Patient having multiple episodes of loose stools and C. difficile was found to be positive he is started on oral vancomycin Discussion was had about the need for possible bronchoscopy although patient does not appear to be a stable candidate for intervention like this at this time and patient reports he is unsure if he wants to proceed with this as well. Patient is no code discuss further with family regarding overall treatment plan moving forward. Due to multiple complex medical issues, overall prognosis is extremely poor and guarded and hospice was discussed Patient to discuss hospice with family and we will follow up with patient The impression and plan of care has been dictated by Taylor Mitchell, Nurse Practitioner as directed. Dr. Ranulfo MD I have performed a history and examination and MDM of this patient, discussed the same with the dictator, and agree with the dictator's assessment and plan as written ,documented as a scribe. Based on total visit time, I have performed more than 50% of the visit. Objective - Vital Signs Vital signs: Vital Signs Temp 97.4 F L 09/20/24 08:55 Pulse 92 09/20/24 09:29 Resp 16 09/20/24 08:55 BP 152/81 09/20/24 08:55 Pulse Ox 100 09/20/24 08:55 FiO2 Intake & Output 09/19/24 09/20/24 09/20/24 18:59 06:59 18:59 Intake Total 1220 490 Output Total 300 325 Balance 920 -325 490 Weight 93.2 kg Intake: IV 20 10 Invasive Line 3 20 10 Oral 1200 480 Output: Urine 300 325 Other: Voiding Method Urinal Urinal Urinal # Bowel Movements 1 - Labs CBC & Chem 7: 09/20/24 07:03 09/20/24 07:03 Labs: Abnormal Lab Results - Last 24 Hours (Table) 09/19/24 09/19/24 09/19/24 Range/Units 08:06 08:06 11:29 WBC 1.02 L* (4.50-10.00) 10*3/uL RBC 3.16 L (4.40-5.60) 10*6/uL Hgb 8.3 L (13.0-17.0) g/dL Hct 27.5 L (39.6-50.0) % MCH 26.3 L (27.0-32.0) pg MCHC 30.2 L (32.0-37.0) g/dL Plt Count 61 L (140-440) 10*3/uL Neutrophils # (1.80-7.70) 10*3/uL Lymphocytes # (0.90-5.00) 10*3/uL Monocytes # (0.20-1.00) 10*3/uL Eosinophils # (0.04-0.35) 10*3/uL BUN 103 H* (9-20) mg/dL Creatinine 2.82 H (0.66-1.25) mg/dL Glucose 145 H (74-99) mg/dL POC Glucose (mg/dL) 204 H (70-110) mg/dL Magnesium 2.6 H (1.6-2.3) mg/dL Total Protein 5.8 L (6.3-8.2) g/dL Albumin 3.2 L (3.5-5.0) g/dL 09/19/24 09/19/24 09/20/24 Range/Units 16:17 19:51 05:54 WBC (4.50-10.00) 10*3/uL RBC (4.40-5.60) 10*6/uL Hgb (13.0-17.0) g/dL Hct (39.6-50.0) % MCH (27.0-32.0) pg MCHC (32.0-37.0) g/dL Plt Count (140-440) 10*3/uL Neutrophils # (1.80-7.70) 10*3/uL Lymphocytes # (0.90-5.00) 10*3/uL Monocytes # (0.20-1.00) 10*3/uL Eosinophils # (0.04-0.35) 10*3/uL BUN (9-20) mg/dL Creatinine (0.66-1.25) mg/dL Glucose (74-99) mg/dL POC Glucose (mg/dL) 246 H 218 H 166 H (70-110) mg/dL Magnesium (1.6-2.3) mg/dL Total Protein (6.3-8.2) g/dL Albumin (3.5-5.0) g/dL 09/20/24 09/20/24 Range/Units 07:03 07:03 WBC 1.60 L (4.50-10.00) 10*3/uL RBC 3.31 L (4.40-5.60) 10*6/uL Hgb 8.6 L (13.0-17.0) g/dL Hct 28.4 L (39.6-50.0) % MCH 26.0 L (27.0-32.0) pg MCHC 30.3 L (32.0-37.0) g/dL Plt Count 70 L (140-440) 10*3/uL Neutrophils # 1.42 L (1.80-7.70) 10*3/uL Lymphocytes # 0.06 L (0.90-5.00) 10*3/uL Monocytes # 0.08 L (0.20-1.00) 10*3/uL Eosinophils # 0.00 L (0.04-0.35) 10*3/uL BUN 109 H* (9-20) mg/dL Creatinine 2.79 H (0.66-1.25) mg/dL Glucose 147 H (74-99) mg/dL POC Glucose (mg/dL) (70-110) mg/dL Magnesium (1.6-2.3) mg/dL Total Protein (6.3-8.2) g/dL Albumin (3.5-5.0) g/dL Microbiology - Last 24 Hours (Table) 09/17/24 16:00 Gram Stain - Final Sputum Sputum Culture - Final Assessment and Plan Time with Patient: Less than 30
--- NOTE | 2024-09-20 15:29 | P.PN ---
Subjective Progress Note Date: 09/20/24 Principal diagnosis: Acute bilateral pneumonia, possibly hospital-acquired with acute on chronic hypoxic respiratory failure This is a 74-year-old male patient with multiple medical problems and coming into the department having chest discomfort, cough, congestion and worsening shortness of breath. He is chronically debilitated and is willing more weak than usual. Denies having any fever. No hemoptysis. No pleurisy. Noted, the patient was hospitalized few days back and the patient was discharged home and his condition decompensated over the past 24 hours. The patient had a follow-up chest x-ray in the emergency department that showed development of new bilateral lower lobe pulmonary filtrates consistent with pneumonia. The patient was hypoxic and his oxygen requirements progressively got worse and is currently on 15 L of oxygen by nasal cannula with a pulse ox of 93%. He typically uses oxygen between 2 and 3 L. He remains in chronic atrial fibrillation. The white cell count is 8.9 with a hemoglobin 11.9 and a platelet count of 142. BUN is 64 with a creatinine of 2.7 and sodium levels at 138. Potassium level is at 4.4. Initial lactic acid level was at 3.1 down to 1.6. Procalcitonin level is pending. proBNP level is 26,100. Troponins at 0.03. Rest of the liver function tests are normal. The viral screen is negative. Based on his clinical presentation, I ordered a noncontrast CAT scan of the chest and the CAT scan showed cardiomegaly, splenomegaly, small bilateral pleural effusion, bibasilar pulmonary consolidation in addition to consolidation of the right middle lobe and the findings are quite suspicious for an underlying pneumonia. The patient accordingly was started on Zosyn and is also on Zithromax. On a separate note, the patient was noted to be hypotensive. He was started on low-dose norepinephrine for hemodynamic support. The patient is currently on norepinephrine running at 0.05 mcg/kg/min. Awake and alert and communicating His comorbidities are multiple and the patient is known to have COPD, chronic stage III kidney disease, congestion heart failure with a ejection fraction of 35 to 40% and the patient has moderate degree of aortic stenosis and mild pulmonary hypertension, chronic A-fib, hypertension, history of pancytopenia as the patient has previous history of hepatitis C and history of hepatocellular ca rcinoma and he also has previous history of coronary artery disease with previous MT and hypertension and the patient has a permanent pacemaker in place. Patient was seen today on 09/14/2024, patient remains in the ICU, on 3 L nasal cannula, he has significant pneumonia bilaterally possibly aspiration related or could be hospital-acquired pneumonia. In addition the patient has hemoptysis, I went ahead and held his Eliquis today. Patient is on antibiotics in the form of Zosyn and Zithromax, he is also on bronchodilators, and he is supposed to follow-up at [facility] on Saturday for his severe aortic stenosis, however looking at the overall picture, patient is not going to be discharged before Saturday considering the extensiveness of his pneumonia. Hence I will ask the admitting physician to consider transferring the patient to [facility] if possible. In the meantime patient is on antibiotics in the form of Zithromax and Zosyn, and he is on 3 L nasal cannula, not in distress. WBC count is 1.45 hemoglobin 9.2 electrolytes are normal BUN is 75 creatinine 3.36. Seems to be getting worse. Urine Legionella antigen is negative. Patient was seen today on 09/15/24, on 3 L nasal cannula, remains in the ICU, complaining of difficulty swallowing, patient continues to have bibasilar consolidation, chest x-ray showing slight improvement clinically the patient is about the same but he seems to be more bothered with his difficulty swallowing. Patient remains on antibiotics in the form of Zosyn and Zithromax, he is on bronchodilators, he does have history of severe aortic stenosis, and he supposedly has an appointment with cardiology at [facility] tomorrow. But this is most likely going to be canceled and he will have to set up another appointment on outpatient basis. WBC count today is 1.59 hemoglobin is 8.7 electrolytes are normal BUN is 85 creatinine 3.33. Again his chest x-ray showed slight improvement in his bilateral pneumonia but definitely not resolved. Patient was seen today on 09/17/2024, patient continues to do poorly, not making a significant improvement, remains on Zosyn, sputum cultures are nondiagnostic patient continues to have blood-tinged sputum chest x-ray continues to show bilateral pneumonia. WBC count is 2.41, hemoglobin is 9.1 electrolytes are normal BUN is 100 creatinine 2.98. Seen today on 09/06, patient is about the same, continues to have cough, shortness of breath, and occasional episodes of blood-tinged sputum. His Eliquis remains on hold, patient denies any chest pain or chest pressure, continues to have low WBC count of 1.26 hemoglobin is 8.8 platelets are 67,000's electrolytes are normal BUN is 102 creatinine 2.85 Seen today on 09/19/2024, still about the same, not noticing any improvement, continues to have intermittent episodes of slightly blood-tinged sputum, extremely reluctant to proceed with bronchoscopy. Patient was seen by infectious disease on consultation, he developed now C. difficile colitis. Patient has been on Zosyn for quite some time, I will go ahead and discontinue Zosyn today, patient is receiving oral vancomycin for his C. difficile colitis. Continues to have leukopenia with anemia hemoglobin 8.3 and low platelets patient basically has pancytopenia his renal profile is slightly improved. Seen today on 09/20/2024, patient is about the same, not feeling any better, no improvement, I have discontinued his antibiotics/Zosyn because of his C. difficile colitis and he received over 2 weeks of antibiotics. Chest x-ray continues show bilateral consolidation, I explained to the patient that he should seriously consider bronchoscopy, I have offered bronchoscopy for the patient but he declined. Patient was seen yesterday by infectious disease, and recommended vancomycin orally for his C. difficile colitis, and he felt that the patient received adequate course of Zosyn but no significant improvement clinically and no significant improvement noted on the chest x-ray. Again I believe the patient will likely benefit from bronchoscopy, remains reluctant to have it done. Objective - Vital Signs Vital signs: Vital Signs Temp 97.4 F L 09/20/24 08:55 Pulse 92 09/20/24 13:14 Resp 16 09/20/24 08:55 BP 152/81 09/20/24 08:55 Pulse Ox 100 09/20/24 08:55 FiO2 Intake & Output 09/19/24 09/20/24 09/20/24 18:59 06:59 18:59 Intake Total 1220 490 Output Total 300 325 200 Balance 920 -325 290 Weight 93.2 kg Intake: IV 20 10 Invasive Line 3 20 10 Oral 1200 480 Output: Urine 300 325 200 Other: Voiding Method Urinal Urinal Urinal # Bowel Movements 1 - Exam Physical exam reveals 74-year-old white male in no distress, on 5 L nasal cannula patient looks frail and chronically ill O2 saturation is 100% Head: Atraumatic normocephalic HEENT: PERRLA, EOMI, nonicteric no neck masses no JVD Mild carotid bruit, systolic murmur radiating to carotids elevated jugular venous distention. Lungs: Crackles and rhonchi noted bilaterally Heart: Irregular pulse, 3/6 systolic murmur Abdomen: Soft nontender, positive bowel sounds. Extremities: 1+ lower extremity edema Neuro: Alert oriented x 3 no gross focal deficit Psychiatric: Normal mood affect and no mental status examination Skin: No rashes - Labs CBC & Chem 7: 09/20/24 07:03 09/20/24 07:03 Labs: Abnormal Lab Results - Last 24 Hours (Table) 09/19/24 09/19/24 09/20/24 Range/Units 16:17 19:51 05:54 WBC (4.50-10.00) 10*3/uL RBC (4.40-5.60) 10*6/uL Hgb (13.0-17.0) g/dL Hct (39.6-50.0) % MCH (27.0-32.0) pg MCHC (32.0-37.0) g/dL Plt Count (140-440) 10*3/uL Neutrophils # (1.80-7.70) 10*3/uL Lymphocytes # (0.90-5.00) 10*3/uL Monocytes # (0.20-1.00) 10*3/uL Eosinophils # (0.04-0.35) 10*3/uL BUN (9-20) mg/dL Creatinine (0.66-1.25) mg/dL Glucose (74-99) mg/dL POC Glucose (mg/dL) 246 H 218 H 166 H (70-110) mg/dL 09/20/24 09/20/24 09/20/24 Range/Units 07:03 07:03 11:36 WBC 1.60 L (4.50-10.00) 10*3/uL RBC 3.31 L (4.40-5.60) 10*6/uL Hgb 8.6 L (13.0-17.0) g/dL Hct 28.4 L (39.6-50.0) % MCH 26.0 L (27.0-32.0) pg MCHC 30.3 L (32.0-37.0) g/dL Plt Count 70 L (140-440) 10*3/uL Neutrophils # 1.42 L (1.80-7.70) 10*3/uL Lymphocytes # 0.06 L (0.90-5.00) 10*3/uL Monocytes # 0.08 L (0.20-1.00) 10*3/uL Eosinophils # 0.00 L (0.04-0.35) 10*3/uL BUN 109 H* (9-20) mg/dL Creatinine 2.79 H (0.66-1.25) mg/dL Glucose 147 H (74-99) mg/dL POC Glucose (mg/dL) 186 H (70-110) mg/dL Microbiology - Last 24 Hours (Table) 09/17/24 16:00 Gram Stain - Final Sputum Sputum Culture - Final Assessment and Plan Assessment: Impression: Acute on chronic hypoxic respiratory failure Acute bilateral pneumonia could be aspiration pneumonia or could be hospital- acquired pneumonia patient received over 2 weeks of IV Zosyn hence I will discontinue Zosyn today. 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 difficile colitis on oral vancomycin patient is being followed by ID Recommendation: Again discussed with the patient the option of bronchoscopy and BAL, risk of intubation and mechanical ventilation is rather low but could happen considering his significant consolidation in both lower lobes. As a matter fact I would suggest if bronchoscopy is to be done maybe better to do the bronchoscopy while the patient is intubated and mechanically ventilated. Continue oral vancomycin for C. difficile colitis Continue prednisone Continue Protonix/GI prophylaxis Continue amiodarone for atrial fibrillation Continue bronchodilators Patient will let us know if he changes his mind about bronchoscopy and BAL at this point he seems to be reluctant to consider. Overall prognosis remains guarded . Will continue to follow Time with Patient: Less than 30
--- NOTE | 2024-09-20 15:39 | P.PN ---
Subjective Progress Note Date: 09/20/24 Principal diagnosis: Reason for follow-up is C. difficile colitis Patient is a 74-year-old male with a past medical history significant for hypertension DC heart failure with COPD hepatocellular carcinoma/hepatitis C patient presenting to the hospital a on 09/13/2024 concerning for increasing shortness of breath along with A-fib with RVR there was a concern for pneumonia treated with Zosyn. On today's evaluation that is 09/20/2024, Patient is afebrile patient is curr ently on 5 L nasal cannula oxygen has been complaining of shortness of breath chest pain as well as a cough with mostly bloody frothy sputum patient denies having any nausea vomiting did have some abdominal discomfort and diarrhea. Patient white count is 1.60, creatinine is 2.79 sputum culture x 2 has been negative Objective - Vital Signs Vital signs: Vital Signs Temp 97.4 F L 09/20/24 08:55 Pulse 92 09/20/24 13:14 Resp 16 09/20/24 08:55 BP 152/81 09/20/24 08:55 Pulse Ox 100 09/20/24 08:55 FiO2 Intake & Output 09/19/24 09/20/24 09/20/24 18:59 06:59 18:59 Intake Total 1220 490 Output Total 300 325 500 Balance 920 -325 -10 Weight 93.2 kg Intake: IV 20 10 Invasive Line 3 20 10 Oral 1200 480 Output: Urine 300 325 500 Other: Voiding Method Urinal Urinal Urinal # Bowel Movements 1 - Exam GENERAL DESCRIPTION: An elderly male up in the chair in no distress RESPIRATORY SYSTEM: Unlabored breathing , coarse breath sounds bilaterally HEART: S1 S2 regular rate and rhythm , ABDOMEN: Soft , no tenderness - Labs CBC & Chem 7: 09/20/24 07:03 09/20/24 07:03 Labs: Abnormal Lab Results - Last 24 Hours (Table) 09/19/24 09/19/24 09/20/24 Range/Units 16:17 19:51 05:54 WBC (4.50-10.00) 10*3/uL RBC (4.40-5.60) 10*6/uL Hgb (13.0-17.0) g/dL Hct (39.6-50.0) % MCH (27.0-32.0) pg MCHC (32.0-37.0) g/dL Plt Count (140-440) 10*3/uL Neutrophils # (1.80-7.70) 10*3/uL Lymphocytes # (0.90-5.00) 10*3/uL Monocytes # (0.20-1.00) 10*3/uL Eosinophils # (0.04-0.35) 10*3/uL BUN (9-20) mg/dL Creatinine (0.66-1.25) mg/dL Glucose (74-99) mg/dL POC Glucose (mg/dL) 246 H 218 H 166 H (70-110) mg/dL 09/20/24 09/20/24 09/20/24 Range/Units 07:03 07:03 11:36 WBC 1.60 L (4.50-10.00) 10*3/uL RBC 3.31 L (4.40-5.60) 10*6/uL Hgb 8.6 L (13.0-17.0) g/dL Hct 28.4 L (39.6-50.0) % MCH 26.0 L (27.0-32.0) pg MCHC 30.3 L (32.0-37.0) g/dL Plt Count 70 L (140-440) 10*3/uL Neutrophils # 1.42 L (1.80-7.70) 10*3/uL Lymphocytes # 0.06 L (0.90-5.00) 10*3/uL Monocytes # 0.08 L (0.20-1.00) 10*3/uL Eosinophils # 0.00 L (0.04-0.35) 10*3/uL BUN 109 H* (9-20) mg/dL Creatinine 2.79 H (0.66-1.25) mg/dL Glucose 147 H (74-99) mg/dL POC Glucose (mg/dL) 186 H (70-110) mg/dL Microbiology - Last 24 Hours (Table) 09/17/24 16:00 Gram Stain - Final Sputum Sputum Culture - Final Assessment and Plan (1) Pneumonia Current Visit: Yes Status: Acute Code(s): J18.9 - PNEUMONIA, UNSPECIFIED ORGANISM SNOMED Code(s): 531756740 (2) Leukopenia Current Visit: Yes Status: Acute Code(s): D72.819 - DECREASED WHITE BLOOD CELL COUNT, UNSPECIFIED SNOMED Code(s): 40555651 (3) C. difficile colitis Current Visit: Yes Status: Acute Code(s): A04.72 - ENTEROCOLITIS D/T CLOST RIDIUM DIFFICILE, NOT SPCF RECUR SNOMED Code(s): 332853059 Plan: 1patient presented to hospital with increasing shortness of breath which is likely multifactorial possible combination of fluid overload which could be related to his cardiac/renal condition plus minus a component of pneumonia not entirely excluded 2sputum culture x 2 has been negative patient has received adequate Zosyn during this hospital stay now with developing diarrhea and C. difficile Zosyn has been discontinued 3patient advised to continue oral vancomycin for C. difficile colitis encouraged to increase his yogurt intake, avoid antimotility agent Multiple family members at the bedside multiple questions and concerns were answered in layman term Dictation was produced using [employer] dictation software. please excuse any grammatical, word or spelling errors. Time with Patient: Less than 30
[2024-09-20 16:19] LABS: Glucose,Whole Blood 158 mg/dL (70-110)
[2024-09-20 20:09] LABS: Glucose,Whole Blood 180 mg/dL (70-110)
[2024-09-21 05:57] LABS: Glucose,Whole Blood 134 mg/dL (70-110)
--- NOTE | 2024-09-21 10:28 | P.PN ---
Subjective Patient is seen in follow-up for acute kidney injury on chronic kidney disease. Renal function fairly stable the last few days. On oral Lasix. Complaining of swelling in the lower extremities. Has been voiding. Denies chest pain or shortness of breath. Vital signs are stable. General: No acute distress. HEENT: Head exam is unremarkable. On nasal cannula. LUNGS: No audible rhonchi or wheezes. HEART: Rate and Rhythm are regular. ABDOMEN: Nontender. EXTREMITITES: 2+ edema. Objective - Vital Signs Vital signs: Vital Signs Temp 98.2 F 09/20/24 20:40 Pulse 91 09/21/24 09:36 Resp 19 09/21/24 09:35 BP 132/83 09/21/24 09:35 Pulse Ox 98 09/21/24 09:35 FiO2 Intake & Output 09/20/24 09/21/24 09/21/24 18:59 06:59 18:59 Intake Total 730 20 10 Output Total 800 300 Balance -70 20 -290 Weight 93.7 kg Intake: IV 10 20 10 Invasive Line 3 10 20 10 Oral 720 Output: Urine 800 300 Other: Voiding Method Urinal Urinal Urinal # Voids 1 # Bowel Movements 1 - Labs CBC & Chem 7: 09/20/24 07:03 09/20/24 07:03 Labs: Abnormal Lab Results - Last 24 Hours (Table) 09/20/24 09/20/24 09/20/24 Range/Units 11:36 16:17 20:08 POC Glucose (mg/dL) 186 H 158 H 180 H (70-110) mg/dL 09/21/24 Range/Units 05:55 POC Glucose (mg/dL) 134 H (70-110) mg/dL Assessment and Plan Plan: Assessment: 1. Acute kidney injury secondary to ATN secondary to severe sepsis. Also component of cardiorenal syndrome. Creatinine stable at 2.8 the last few days. No hydronephrosis noted on ultrasound done in August 2024. UA with trace protein. Elevated BUN partially due to steroids. 2. Chronic kidney disease stage IV with baseline creatinine near 2.3 secondary to nephrosclerosis. 3. Acute on chronic systolic CHF ejection fraction of 35 to 40%. 4. Volume overload. 5. History of hepatitis C and hepatocellular carcinoma. 6. C. difficile colitis maintained on oral vancomycin. Plan: Change to IV Lasix 40 mg twice daily. Maintain low-salt diet. Add 1500 cc fluid restriction. Continue to monitor renal function and urine output.
[2024-09-21 11:20] LABS: Glucose,Whole Blood 210 mg/dL (70-110)
[2024-09-21] MEDS: FUROSEMIDE 10 MG/ML 4 ML VIAL IV SCH (11:56)
[2024-09-21 16:32] LABS: Glucose,Whole Blood 147 mg/dL (70-110)
--- NOTE | 2024-09-21 16:58 | P.PN ---
Subjective Progress Note Date: 09/21/24 Principal diagnosis: Pneumonia, CHF. This is a 74-year-old male patient with multiple medical problems and coming into the department having chest discomfort, cough, congestion and worsening shortness of breath. He is chronically debilitated and is willing more weak than usual. Denies having any fever. No hemoptysis. No pleurisy. Noted, the patient was hospitalized few days back and the patient was discharged home and his condition decompensated over the past 24 hours. The patient had a follow-up chest x-ray in the emergency department that showed development of new bilateral lower lobe pulmonary filtrates consistent with pneumonia. The patient was hypoxic and his oxygen requirements progressively got worse and is currently on 15 L of oxygen by nasal cannula with a pulse ox of 93%. He typically uses oxygen between 2 and 3 L. He remains in chronic atrial fibrillation. The white cell count is 8.9 with a hemoglobin 11.9 and a platelet count of 142. BUN is 64 with a creatinine of 2.7 and sodium levels at 138. Potassium level is at 4.4. Initial lactic acid level was at 3.1 down to 1.6. Procalcitonin level is pending. proBNP level is 26,100. Troponins at 0.03. Rest of the liver function tests are normal. The viral screen is negative. Based on his clinical presentation, I ordered a noncontrast CAT scan of the chest and the CAT scan showed cardiomegaly, splenomegaly, small bilateral pleural effusion, bibasilar pulmonary consolidation in addition to consolidation of the right middle lobe and the findings are quite suspicious for an underlying pneumonia. The patient accordingly was started on Zosyn and is also on Zithromax. On a separate note, the patient was noted to be hypotensive. He was started on low-dose norepinephrine for hemodynamic support. The patient is currently on norepinephrine running at 0.05 mcg/kg/min. Awake and alert and communicating His comorbidities are multiple and the patient is known to have COPD, chronic st age III kidney disease, congestion heart failure with a ejection fraction of 35 to 40% and the patient has moderate degree of aortic stenosis and mild pulmonary hypertension, chronic A-fib, hypertension, history of pancytopenia as the patient has previous history of hepatitis C and history of hepatocellular carcinoma and he also has previous history of coronary artery disease with previous [place] and hypertension and the patient has a permanent pacemaker in place. Patient was seen today on 09/14/2024, patient remains in the ICU, on 3 L nasal cannula, he has significant pneumonia bilaterally possibly aspiration related or could be hospital-acquired pneumonia. In addition the patient has hemoptysis, I went ahead and held his Eliquis today. Patient is on antibiotics in the form of Zosyn and Zithromax, he is also on bronchodilators, and he is supposed to follow-up at [facility] on Saturday for his severe aortic stenosis, however looking at the overall picture, patient is not going to be discharged before Saturday considering the extensiveness of his pneumonia. Hence I will ask the admitting physician to consider transferring the patient to [facility] if possible. In the meantime patient is on antibiotics in the form of Zithromax and Zosyn, and he is on 3 L nasal cannula, not in distress. WBC count is 1.45 hemoglobin 9.2 electrolytes are normal BUN is 75 creatinine 3.36. Seems to be getting worse. Urine Legionella antigen is negative. Patient was seen today on 09/15/24, on 3 L nasal cannula, remains in the ICU, complaining of difficulty swallowing, patient continues to have bibasilar consolidation, chest x-ray showing slight improvement clinically the patient is about the same but he seems to be more bothered with his difficulty swallowing. Patient remains on antibiotics in the form of Zosyn and Zithromax, he is on bronchodilators, he does have history of severe aortic stenosis, and he supposedly has an appointment with cardiology at [facility] tomorrow. But this is most likely going to be canceled and he will have to set up another appointment on outpatient basis. WBC count today is 1.59 hemoglobin is 8.7 electrolytes are normal BUN is 85 creatinine 3.33. Again his chest x-ray showed slight improvement in his bilateral pneumonia but definitely not resolved. Patient was seen today on 09/17/2024, patient continues to do poorly, not making a significant improvement, remains on Zosyn, sputum cultures are nondiagnostic patient continues to have blood-tinged sputum chest x-ray continues to show bilateral pneumonia. WBC count is 2.41, hemoglobin is 9.1 electrolytes are normal BUN is 100 creatinine 2.98. Seen today on 09/06, patient is about the same, continues to have cough, shortness of breath, and occasional episodes of blood-tinged sputum. His Eliquis remains on hold, patient denies any chest pain or chest pressure, continues to have low WBC count of 1.26 hemoglobin is 8.8 platelets are 67,000's electrolytes are normal BUN is 102 creatinine 2.85 Seen today on 09/19/2024, still about the same, not noticing any improvement, continues to have intermittent episodes of slightly blood-tinged sputum, extremely reluctant to proceed with bronchoscopy. Patient was seen by infectious disease on consultation, he developed now C. difficile colitis. Patient has been on Zosyn for quite some time, I will go ahead and discontinue Zosyn today, patient is receiving oral vancomycin for his C. difficile colitis. Continues to have leukopenia with anemia hemoglobin 8.3 and low platelets patient basically has pancytopenia his renal profile is slightly improved. Seen today on 09/20/2024, patient is about the same, not feeling any better, no improvement, I have discontinued his antibiotics/Zosyn because of his C. diffi cile colitis and he received over 2 weeks of antibiotics. Chest x-ray continues show bilateral consolidation, I explained to the patient that he should seriously consider bronchoscopy, I have offered bronchoscopy for the patient but he declined. Patient was seen yesterday by infectious disease, and recommended vancomycin orally for his C. difficile colitis, and he felt that the patient received adequate course of Zosyn but no significant improvement clinically and no significant improvement noted on the chest x-ray. Again I believe the patient will likely benefit from bronchoscopy, remains reluctant to have it done. Progress note dated September 21, 2024. 74-year-old male with a history of multiple medical problems including pneumonia and CHF. The patient remains a DO NOT RESUSCITATE patient. The plans are for Mr. Morales to potentially go into hospice. He did test positive for C. difficile colitis. He is currently on 5 L nasal cannula. No new labs today other than a glucose of 147. No chest x-ray today. Objective - Vital Signs Vital signs: Vital Signs Temp 98.2 F 09/20/24 20:40 Pulse 88 09/21/24 16:36 Resp 19 09/21/24 11:55 BP 129/75 09/21/24 11:55 Pulse Ox 99 09/21/24 11:55 FiO2 Intake & Output 09/20/24 09/21/24 09/21/24 18:59 06:59 18:59 Intake Total 730 20 20 Output Total 800 300 Balance -70 20 -280 Weight 93.7 kg Intake: IV 10 20 20 Invasive Line 3 10 20 20 Oral 720 Output: Urine 800 300 Other: Voiding Method Urinal Urinal Urinal # Voids 1 # Bowel Movements 1 - Exam No acute distress, oriented 3. The patient is currently on 5 L nasal cannula. He is very frail and chronically ill. HEENT examination is grossly unremarkable. Mucous membranes are moist. No oral lesions. Neck supple. Full range of motion. No adenopathy thyromegaly or neck vein distention. Cardiovascular examination reveals an irregular rhythm and rate. S1-S2 normal. No S3 or S4. Systolic murmur noted. Lungs reveal diffuse bilateral crackles, and rhonchi. No distinct wheezes. Abdomen soft bowel sounds are heard. No masses or tenderness. Extremities are intact. No cyanosis or clubbing. Trace edema is noted. Skin is without rash or lesion. Neurologic examination is brief but nonfocal. - Labs CBC & Chem 7: 09/20/24 07:03 09/20/24 07:03 Labs: Abnormal Lab Results - Last 24 Hours (Table) 09/20/24 09/21/24 09/21/24 Range/Units 20:08 05:55 11:19 POC Glucose (mg/dL) 180 H 134 H 210 H (70-110) mg/dL 09/21/24 Range/Units 16:31 POC Glucose (mg/dL) 147 H (70-110) mg/dL Assessment and Plan Assessment: Acute on chronic hypoxemic respiratory failure. Acute bilateral pneumonia, potentially related to aspiration. Acute sepsis and hypotension. Chronic systolic congestive heart failure, with an ejection fraction of 35 to 40%. Moderate to severe aortic stenosis. Chronic atrial fibrillation. Moderately severe COPD, with an FEV1 that is 59% of predicted. Stage III chronic kidney disease. History of pacemaker implantation. History of hypertension. History of hepatitis C. Pancytopenia. Parotid gland carcinoma. History of hepatocellular carcinoma. Acute C. difficile colitis. Plan: Plan dated September 21, 2024. The patient is seen today in room 363. My partner discussed the option of bronchoscopy and BAL, risk of intubation and mechanical ventilation, but appa rently, the patient did not agree to this. He is a DO NOT RESUSCITATE patient. In fact, discussions today centered around hospice. He is currently seen, in room 363. He is on 5 L nasal cannula. He continues on GI prophylaxis with Protonix. He continues on oral vancomycin for C. difficile colitis. He continues on amiodarone, and bronchodilators. We will continue to follow make recommendations along the way. Labs, x-rays, and medications are reviewed. Dictation was produced using [employer] dictation software. Please excuse any grammatical, word or spelling errors. Time with Patient: Less than 30
[2024-09-21 19:54] LABS: Glucose,Whole Blood 214 mg/dL (70-110)
--- NOTE | 2024-09-22 05:04 | P.PN ---
Subjective Progress Note Date: 09/21/24 74-year-old male, history of COPD, CAD/CHF, aortic stenosis, atrial fibrillation, hypertension, CKD, presents to ED with complaint chest discomfort and worsening shortness of breath. He is chronically debilitated and is willing more weak than usual; patient was hospitalized few days back and the patient was discharged home and his condition decompensated over the past 24 hours. The patient was hypoxic and his oxygen requirements progressively got worse and is currently on 15 L of oxygen by nasal cannula with a pulse ox of 93%. He typically uses oxygen between 2 and 3 L. Chest x-ray in the emergency department that showed development of new bilateral lower lobe pulmonary filtrates consistent with pneumonia. - The white cell count is 8.9 with a hemoglobin 11.9 and a platelet count of 142. BUN is 64 with a creatinine of 2.7 and sodium levels at 138. Potassium level is at 4.4. Initial lactic acid level was at 3.1 down to 1.6. Procalcitonin level is pending. proBNP level is 26,100. Troponins at 0.03. Rest of the liver function tests are normal. The viral screen is negative. -CAT scan showed cardiomegaly, splenomegaly, small bilateral pleural effusion, bibasilar pulmonary consolidation in addition to consolidation of the right middle lobe and the findings are quite suspicious for an underlying pneumonia. The patient was started on Zosyn and is also on Zithromax per pulmonary recommendation. While in ED, the patient was noted to be hypotensive. He was started on low-dose norepinephrine for hemodynamic support. The patient is currently on norepinephrine running at 0.05 mcg/kg/min. Awake and alert and communicating 09/14/2024 Patient is seen in follow-up today in the ICU with pulmonary and cardiology following for pneumonia and CHF exacerbation. Patient currently on 3 L via nasal continues with extensive pneumonia maintained on Zithromax. Ceftriaxone was discontinued per pulmonary and started on Zosyn. Preliminary blood cultures are no growth and sputum culture is ordered and pending at this time. Patient's kidney functions are elevated above 3 creatinine and will consult nephrology and appreciate input and recommendations. Pulmonary thermal cutter hand recommending possible transfer for tertiary treatment as patient was scheduled to undergo cardiac intervention at [facility] and feels he would benefit from being evaluated by them continuing care for his surgical procedure. Pretesting was to be done on this Saturday regarding CAT scans, blood work, further imaging. Given patient's extensive comorbidities and ongoing issues would recommend transfer to tertiary treatment. Will attempt to contact transfer center to discuss possible transfer. 09/15/2024. Patient is seen in follow-up today continues in the ICU although is a downgrade to 3 S. once a bed becomes available. Patient continues on 3 L with pulmonary and cardiology following maintained on antibiotics and sputum culture remains pending. Creatinine is 3.33 nephrology consulted and appreciate input and recommendations regarding acute on chronic kidney disease with [place]. Patient is afebrile although reports continued shortness of breath. Patient was scheduled for outpatient testing for further surgical intervention with [facility] this Saturday although will likely need to be rescheduled. Patient does not appear to be a good surgical candidate and is high risk given significant comorbidities. Encouraged to increase activity as tolerated and patient is reporting significant difficulty and pain with swallowing. Speech is consulted and will likely undergo swallow study 09/16/2024 Patient is seen and evaluated in follow-up reporting he does not feel well and continues to be short of breath and reporting continued difficulty with swallowing although underwent modified barium swallow study and is recommended to continue on current regimen and soft foods. Patient white count remains low although slightly improved at 2.49, hemoglobin is stable at 9.1 although co ntinues to report coughing and spitting up blood at times. Eliquis remains on hold and platelet count is low at 68. Sodium 140 with a potassium of 4.6, BUN 92 and creatinine is 3.21. Nephrology following along with pulmonary, cardiology and continued on IV steroids along with breathing treatments. 09/17/2024 Patient is seen in follow-up today and continues to report shortness of breath and hemoptysis and not feeling much improved. Kidney functions are trending down with nephrology following and will continue current regimen. Hemoglobin remained stable at the increased hemoptysis. Sodium is 138 with a potassium of 4.5, BUN is 100 with a creatinine of 2.98. Blood sugars being monitored and will continue current regimen. Patient is maintained on IV steroids along with breathing treatments and antibiotics and will continue. Patient continues to have persistent cough with no real improvement is maintained on antibiotics and will consult infectious disease and appreciate input and recommendations. Patient continues have significant wheezing and IV steroids being advanced. 09/18/2024 Patient is seen and evaluated this morning continues to show no significant improvement with continued shortness of breath and cough. Lung sounds are congested and rhonchorous with wheezing noted. Abdomen is distended and patient is reporting no abdominal pain and is having bowel movements that are loose. Pulmonary following and patient does not appear to be a candidate for bronchoscopy. Infectious disease was consulted and appreciate input and recommendations regarding persistent with pneumonia with no improvements, preliminary cultures have been negative thus far. Patient is no code and this was addressed again as patient is discussing further with family about overall prognosis and does not want to end up on a mechanical ventilator and unsure if he wants to have a bronchoscopy or any further intervention. 09/19/2024 Patient is evaluated in follow-up on the cardiac unit. He continues to have rhonchorous lung sounds and also wheezing noted. Patient was found to be C. dif ficile positive. He has been started on oral vancomycin. IV zosyn to be discontinued. Hospice was discussed patient wants to see how he improves over the next few days. WBC 1.02, hgb 8.3, platelet count 61, BUN 103, creatinine 2.82. 09/20/2024 Patient is evaluated in follow-up in the cardiac floor. He remains on oral vancomycin due to the C. difficile colitis. He has had 1 bowel movement doc umented overnight. His labs today reveal a white blood cell count of 1.60, hemoglobin 8.6, platelet count of 70, BUN of 109 creatinine of 2.79. Had a chest x-ray this morning which reveals a similar right basilar airspace opacity and blunting of the costophrenic angle suggestive of pleural effusions. He is on 5 L of oxygen via nasal cannula. His sputum culture has been final and negative. No further hemoptysis reported. 09/20/2024 Patient is seen in follow-up today patient is continued on oral antibiotics in the form of vancomycin and patient continues to have some episodes of loose stools. Patient reports continued hemoptysis with no significant improvement in breathing and continues to report shortness of breath and maintained on 5 L. Per nursing staff there was discussion of possible hospice with a possible informational meeting being arranged. Patient to discuss further with family. Review of systems: Constitutional: No reports of fatigue, fever, or chills Cardiovascular: No reports of chest pain or palpitations Respiratory: reports of continued shortness of breath and persistent cough GI: No reports of nausea, vomiting, reports diarrhea, reports not much of an appetite and still having difficulties with swallowing things, eating only soft foods on occasion : No reports of dysuria or retention Neurovascular: reports of generalized weakness All medications have been reviewed Physical exam: Gen: This is a 74-year-old male who is awake, alert and oriented x 3, thin built, elderly appearing, ill-appearing HEENT: Head is atraumatic, normocephalic. Pupils equal, round. Sclerae is anicteric. NECK: Supple. No JVD. No lymphadenopathy. No thyromegaly. LUNGS: Diminished breath sounds bilaterally with coarse scattered rhonchi noted, bronchial congestion and faint crackles with expiratory wheezing. No intercostal retractions. HEART: S1, S2 are muffled ABDOMEN: Soft. Mildly distended and nontender, bowel sounds are present. No masses. No tenderness. EXTREMITIES: No pedal edema. No calf tenderness. Mild bilateral lower extremity edema noted NEUROLOGICAL: Patient is awake, alert and oriented x3. Cranial nerves 2 through 12 are grossly intact. Diffusely weak Assessment: -Acute C. difficile colitis -Acute bilateral lower lobe pneumonia/likely gram-negative pneumonia of the right lung base, with sepsis present on admission, cultures thus far negative -Acute on chronic hypoxic respiratory failure; currently on 5 L of oxygen by nasal cannula -Acute hypotension; likely secondary to sepsis and the patient was on low-dose norepinephrine which has been discontinued. -Acute exacerbation COPD -Chronic systolic heart failure. Most recent EF revealing impaired LV function with an EF of 35 to 40% with moderate degree of aortic valve stenosis. Aortic dilatation at the level of the root also noted with moderate RV dilatation and mild pulmonary -hypertension history -Chronic atrial fibrillation, currently rate controlled, maintained on anticoagulation with Eliquis although being held for continued hemoptysis -Chronic stage III kidney disease, with acute [place], worsening kidney functions -History of implantation of permanent pacemaker. -History of hepatitis C/chronic liver disease/hepatocellular carcinoma. 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 -Hepatocellular carcinoma. GI prophylaxis DVT prophylaxis; SCDs/systemic anticoagulation DNR Plan: Patient continues to report shortness of breath with minimal exertion and continued cough with occasional bleeding noted. Eliquis is on hold. hemoglobin is stable at 8.6 and will continue to monitor. Transfuse if 7 or less nephrology following for acute on chronic kidney disease with worsening kidney functions. Creatinine slightly improved. Patient is pancytopenic secondary to chronic liver disease also underlying infection with noted thrombocytopenia and leukopenia. This appears chronic as well Follow-up on repeat labs and replace electrolytes per protocol Encouraged increased activity as tolerated. Patient underwent swallow study with no signs of aspiration although continues to have difficulty with swallowing, recommend soft and/or liquid diet as tolerated. Patient is debilitated and lethargic at times and extremely weak, would recommend aspiration precautions and supervision with meals Patient having multiple episodes of loose stools and C. difficile was found to be positive he is started on oral vancomycin Discussion was had about the need for possible bronchoscopy although patient does not appear to be a stable candidate for intervention like this at this time and patient reports he is unsure if he wants to proceed with this as well. Patient is no code discuss further with family regarding overall treatment plan moving forward. There is discussion of possible hospice possible hospice informational meeting Due to multiple complex medical issues, overall prognosis is extremely poor and guarded Patient to discuss hospice with family and we will follow up with patient The impression and plan of care has been dictated by Marie Inman, Nurse Practitioner as directed. Dr. Golden MD I have performed a history and examination and MDM of this patient, discussed the same with the dictator, and agree with the dictator's assessment and plan as written ,documented as a scribe. Based on total visit time, I have performed more than 50% of the visit. Objective - Vital Signs Vital signs: Vital Signs Temp 97.6 F 09/21/24 19:25 Pulse 83 09/22/24 03:05 Resp 18 09/22/24 03:05 BP 128/82 09/22/24 03:05 Pulse Ox 99 09/22/24 03:05 FiO2 Intake & Output 09/21/24 09/21/24 09/22/24 06:59 18:59 06:59 Intake Total 20 520 20 Output Total 600 775 Balance 20 -80 -755 Weight 93.7 kg Intake: IV 20 20 20 Invasive Line 3 20 20 20 Oral 500 Output: Urine 600 775 Other: Voiding Method Urinal Urinal Urinal # Voids 1 # Bowel Movements 1 - Labs CBC & Chem 7: 09/20/24 07:03 09/20/24 07:03 Labs: Abnormal Lab Results - Last 24 Hours (Table) 09/21/24 09/21/24 09/21/24 Range/Units 05:55 11:19 16:31 POC Glucose (mg/dL) 134 H 210 H 147 H (70-110) mg/dL 09/21/24 Range/Units 19:53 POC Glucose (mg/dL) 214 H (70-110) mg/dL
[2024-09-22 06:20] LABS: Glucose,Whole Blood 107 mg/dL (70-110)
[2024-09-22 08:35] LABS: African American GFR (CKD) 25 (>60 ml/min/1.73 sqM); Anion Gap 13 mmol/L; Calcium 8.4 mg/dL (8.4-10.2); Carbon Dioxide 22 mmol/L (22-30); Chloride 105 mmol/L (98-107); Glucose 133 mg/dL (74-99); Magnesium 2.5 mg/dL (1.6-2.3); Non-African American GFR(CKD) 21 (>60 ml/min/1.73 sqM); Potassium 4.5 mmol/L (3.5-5.1); Sodium 140 mmol/L (137-145)
[2024-09-22 09:01] LABS: Blood Urea Nitrogen 112 mg/dL (9-20)
--- NOTE | 2024-09-22 11:13 | P.PN ---
Subjective Patient is seen in follow-up for acute kidney injury on chronic kidney disease. Renal function fairly stable the last few days. On IV Lasix. Edema improved. Vital signs are stable. General: No acute distress. HEENT: Head exam is unremarkable. On nasal cannula. LUNGS: No audible rhonchi or wheezes. HEART: Rate and Rhythm are regular. ABDOMEN: Nontender. EXTREMITITES: 2+ edema. Objective - Vital Signs Vital signs: Vital Signs Temp 97.7 F 09/22/24 08:41 Pulse 80 09/22/24 09:46 Resp 18 09/22/24 08:42 BP 134/79 09/22/24 08:41 Pulse Ox 98 09/22/24 09:28 FiO2 Intake & Output 09/21/24 09/22/24 09/22/24 18:59 06:59 18:59 Intake Total 520 20 60 Output Total 600 775 500 Balance -80 -755 -440 Weight 92.4 kg Intake: IV 20 20 10 Invasive Line 3 20 20 10 Oral 500 50 Output: Urine 600 775 500 Other: Voiding Method Urinal Urinal Urinal # Bowel Movements 1 - Labs CBC & Chem 7: 09/20/24 07:03 09/22/24 07:50 Labs: Abnormal Lab Results - Last 24 Hours (Table) 09/21/24 09/21/24 09/21/24 Range/Units 11:19 16:31 19:53 BUN (9-20) mg/dL Creatinine (0.66-1.25) mg/dL Glucose (74-99) mg/dL POC Glucose (mg/dL) 210 H 147 H 214 H (70-110) mg/dL Magnesium (1.6-2.3) mg/dL 09/22/24 Range/Units 07:50 BUN 112 H* (9-20) mg/dL Creatinine 2.82 H (0.66-1.25) mg/dL Glucose 133 H (74-99) mg/dL POC Glucose (mg/dL) (70-110) mg/dL Magnesium 2.5 H (1.6-2.3) mg/dL Assessment and Plan Plan: Assessment: 1. Acute kidney injury secondary to ATN secondary to severe sepsis. Also component of cardiorenal syndrome. Creatinine stable at 2.8 the last few days. No hydronephrosis noted on ultrasound done in August 2024. UA with trace protein. Elevated BUN partially due to steroids. 2. Chronic kidney disease stage IV with baseline creatinine near 2.3 secondary to nephrosclerosis. 3. Acute on chronic systolic CHF ejection fraction of 35 to 40%. 4. Volume overload. Improving with diuresis. 5. History of hepatitis C and hepatocellular carcinoma. 6. C. difficile colitis maintained on oral vancomycin. Plan: Maintain IV Lasix for another day. Maintain low-salt diet. Maintain 1500 cc fluid restriction. Continue to monitor renal function and urine output. Repeat chest x-ray.
[2024-09-22 11:29] LABS: Glucose,Whole Blood 119 mg/dL (70-110)
--- NOTE | 2024-09-22 13:49 | P.PN ---
Subjective Progress Note Date: 09/22/24 Principal diagnosis: Pneumonia, CHF. This is a 74-year-old male patient with multiple medical problems and coming into the department having chest discomfort, cough, congestion and worsening shortness of breath. He is chronically debilitated and is willing more weak than usual. Denies having any fever. No hemoptysis. No pleurisy. Noted, the patient was hospitalized few days back and the patient was discharged home and his condition decompensated over the past 24 hours. The patient had a follow-up chest x-ray in the emergency department that showed development of new bilateral lower lobe pulmonary filtrates consistent with pneumonia. The patient was hypoxic and his oxygen requirements progressively got worse and is currently on 15 L of oxygen by nasal cannula with a pulse ox of 93%. He typically uses oxygen between 2 and 3 L. He remains in chronic atrial fibrillation. The white cell count is 8.9 with a hemoglobin 11.9 and a platelet count of 142. BUN is 64 with a creatinine of 2.7 and sodium levels at 138. Potassium level is at 4.4. Initial lactic acid level was at 3.1 down to 1.6. Procalcitonin level is pending. proBNP level is 26,100. Troponins at 0.03. Rest of the liver function tests are normal. The viral screen is negative. Based on his clinical presentation, I ordered a noncontrast CAT scan of the chest and the CAT scan showed cardiomegaly, splenomegaly, small bilateral pleural effusion, bibasilar pulmonary consolidation in addition to consolidation of the right middle lobe and the findings are quite suspicious for an underlying pneumonia. The patient accordingly was started on Zosyn and is also on Zithromax. On a separate note, the patient was noted to be hypotensive. He was started on low-dose norepinephrine for hemodynamic support. The patient is currently on norepinephrine running at 0.05 mcg/kg/min. Awake and alert and communicating His comorbidities are multiple and the patient is known to have COPD, chronic st age III kidney disease, congestion heart failure with a ejection fraction of 35 to 40% and the patient has moderate degree of aortic stenosis and mild pulmonary hypertension, chronic A-fib, hypertension, history of pancytopenia as the patient has previous history of hepatitis C and history of hepatocellular carcinoma and he also has previous history of coronary artery disease with previous PA and hypertension and the patient has a permanent pacemaker in place. Patient was seen today on 09/14/2024, patient remains in the ICU, on 3 L nasal cannula, he has significant pneumonia bilaterally possibly aspiration related or could be hospital-acquired pneumonia. In addition the patient has hemoptysis, I went ahead and held his Eliquis today. Patient is on antibiotics in the form of Zosyn and Zithromax, he is also on bronchodilators, and he is supposed to follow-up at [facility] on Saturday for his severe aortic stenosis, however looking at the overall picture, patient is not going to be discharged before Saturday considering the extensiveness of his pneumonia. Hence I will ask the admitting physician to consider transferring the patient to [facility] if possible. In the meantime patient is on antibiotics in the form of Zithromax and Zosyn, and he is on 3 L nasal cannula, not in distress. WBC count is 1.45 hemoglobin 9.2 electrolytes are normal BUN is 75 creatinine 3.36. Seems to be getting worse. Urine Legionella antigen is negative. Patient was seen today on 09/15/24, on 3 L nasal cannula, remains in the ICU, complaining of difficulty swallowing, patient continues to have bibasilar consolidation, chest x-ray showing slight improvement clinically the patient is about the same but he seems to be more bothered with his difficulty swallowing. Patient remains on antibiotics in the form of Zosyn and Zithromax, he is on bronchodilators, he does have history of severe aortic stenosis, and he supposedly has an appointment with cardiology at [facility] tomorrow. But this is most likely going to be canceled and he will have to set up another appointment on outpatient basis. WBC count today is 1.59 hemoglobin is 8.7 electrolytes are normal BUN is 85 creatinine 3.33. Again his chest x-ray showed slight improvement in his bilateral pneumonia but definitely not resolved. Patient was seen today on 09/17/2024, patient continues to do poorly, not making a significant improvement, remains on Zosyn, sputum cultures are nondiagnostic patient continues to have blood-tinged sputum chest x-ray continues to show bilateral pneumonia. WBC count is 2.41, hemoglobin is 9.1 electrolytes are normal BUN is 100 creatinine 2.98. Seen today on 09/06, patient is about the same, continues to have cough, shortness of breath, and occasional episodes of blood-tinged sputum. His Eliquis remains on hold, patient denies any chest pain or chest pressure, continues to have low WBC count of 1.26 hemoglobin is 8.8 platelets are 67,000's electrolytes are normal BUN is 102 creatinine 2.85 Seen today on 09/19/2024, still about the same, not noticing any improvement, continues to have intermittent episodes of slightly blood-tinged sputum, extremely reluctant to proceed with bronchoscopy. Patient was seen by infectious disease on consultation, he developed now C. difficile colitis. Patient has been on Zosyn for quite some time, I will go ahead and discontinue Zosyn today, patient is receiving oral vancomycin for his C. difficile colitis. Continues to have leukopenia with anemia hemoglobin 8.3 and low platelets patient basically has pancytopenia his renal profile is slightly improved. Seen today on 09/20/2024, patient is about the same, not feeling any better, no improvement, I have discontinued his antibiotics/Zosyn because of his C. diffi cile colitis and he received over 2 weeks of antibiotics. Chest x-ray continues show bilateral consolidation, I explained to the patient that he should seriously consider bronchoscopy, I have offered bronchoscopy for the patient but he declined. Patient was seen yesterday by infectious disease, and recommended vancomycin orally for his C. difficile colitis, and he felt that the patient received adequate course of Zosyn but no significant improvement clinically and no significant improvement noted on the chest x-ray. Again I believe the patient will likely benefit from bronchoscopy, remains reluctant to have it done. Progress note dated September 21, 2024. 74-year-old male with a history of multiple medical problems including pneumonia and CHF. The patient remains a DO NOT RESUSCITATE patient. The plans are for Mr. Morales to potentially go into hospice. He did test positive for C. difficile colitis. He is currently on 5 L nasal cannula. No new labs today other than a glucose of 147. No chest x-ray today. Progress note dated September 22, 2024. 74-year-old male with history of multiple medical problem including pneumonia and CHF. The patient is a DO NOT RESUSCITATE patient. He is resting comfortably in room 363. He is on 5 L nasal cannula. He is not receiving any IV fluids. Current labs include a sodium 140, potassium 4.5, chlorides 105, CO2 22, anion gap 13, BUN 112, creatinine 2.82. Glucose is 119. Calcium 8.4, magnesium 2.5. No recent chest x-ray. Microbiologic studies are currently negative. Objective - Vital Signs Vital signs: Vital Signs Temp 97.9 F 09/22/24 11:45 Pulse 88 09/22/24 13:23 Resp 18 09/22/24 13:23 BP 134/80 09/22/24 11:45 Pulse Ox 97 09/22/24 11:45 FiO2 Intake & Output 09/21/24 09/22/24 09/22/24 18:59 06:59 18:59 Intake Total 520 20 70 Output Total 600 775 725 Balance -80 -755 -655 Weight 92.4 kg Intake: IV 20 20 20 Invasive Line 3 20 20 20 Oral 500 50 Output: Urine 600 775 725 Other: Voiding Method Urinal Urinal Urinal # Bowel Movements 1 - Exam No acute distress, oriented 3. The patient is currently on 5 L nasal cannula. He is very frail and chronically ill. HEENT examination is grossly unremarkable. Mucous membranes are moist. No oral lesions. Neck supple. Full range of motion. No adenopathy thyromegaly or neck vein distention. Cardiovascular examination reveals an irregular rhythm and rate. S1-S2 normal. No S3 or S4. Systolic murmur noted. Lungs reveal diffuse bilateral crackles, and rhonchi. No distinct wheezes. Abdomen soft bowel sounds are heard. No masses or tenderness. Extremities are intact. No cyanosis or clubbing. Trace edema is noted. Skin is without rash or lesion. Neurologic examination is brief but nonfocal. - Labs CBC & Chem 7: 09/20/24 07:03 09/22/24 07:50 Labs: Abnormal Lab Results - Last 24 Hours (Table) 09/21/24 09/21/24 09/22/24 Range/Units 16:31 19:53 07:50 BUN 112 H* (9-20) mg/dL Creatinine 2.82 H (0.66-1.25) mg/dL Glucose 133 H (74-99) mg/dL POC Glucose (mg/dL) 147 H 214 H (70-110) mg/dL Magnesium 2.5 H (1.6-2.3) mg/dL 09/22/24 Range/Units 11:20 BUN (9-20) mg/dL Creatinine (0.66-1.25) mg/dL Glucose (74-99) mg/dL POC Glucose (mg/dL) 119 H (70-110) mg/dL Magnesium (1.6-2.3) mg/dL Assessment and Plan Assessment: Acute on chronic hypoxemic respiratory failure. Acute bilateral pneumonia, potentially related to aspiration. Acute sepsis and hypotension. Chronic systolic congestive heart failure, with an ejection fraction of 35 to 40%. Moderate to severe aortic stenosis. Chronic atrial fibrillation. Moderately severe COPD, with an FEV1 that is 59% of predicted. Stage III chronic kidney disease. History of pacemaker implantation. History of hypertension. History of hepatitis C. Pancytopenia. Parotid gland carcinoma. History of hepatocellular carcinoma. Acute C. difficile colitis. Plan: Plan dated September 21, 2024. The patient is seen today in room 363. My partner discussed the option of bronchoscopy and BAL, risk of intubation and mechanical ventilation, but apparently, the patient did not agree to this. He is a DO NOT RESUSCITATE patient. In fact, discussions today centered around hospice. He is currently seen, in room 363. He is on 5 L nasal cannula. He continues on GI prophylaxis with Protonix. He continues on oral vancomycin for C. difficile colitis. He continues on amiodarone, and bronchodilators. We will continue to follow make recommendations along the way. Labs, x-rays, and medications are reviewed. Dictation was produced using [employer] software. Please excuse any gramm atical, word or spelling errors. Plan dated September 22, 2024. The patient is again seen in room 363. The patient remains on nasal O2 at 5 L. He is not receiving any IV fluids. The patient is a DO NOT RESUSCITATE patient. Labs, x-rays, and medications are reviewed. As mentioned yesterday, there was some consideration of hospice. He apparently was declined for valve surgery, at [facility]. Labs, x-rays, and all medications are reviewed. We will continue to follow make recommendations along the way. Prognosis is certainly guarded. Dictation was produced using [employer] software. Please excuse any grammatical, word or spelling errors. Time with Patient: Less than 30
--- NOTE | 2024-09-22 16:22 | P.PN ---
Subjective Progress Note Date: 09/22/24 Principal diagnosis: Reason for follow-up is C. difficile colitis Patient is a 74-year-old male with a past medical history significant for hypertension [place] heart failure with COPD hepatocellular carcinoma/hepatitis C patient presenting to the hospital a on 09/13/2024 concerning for increasing shortness of breath along with A-fib with RVR there was a concern for pneumonia treated with Zosyn. On today's evaluation that is 09/22/2024, Patient is afebrile this morning kennedy mckeon did complain of shortness of breath he did have a cough with some frothy sputum currently on 5 L nasal cannula oxygen P denies any abdominal pain diarrhea is slowed on. Patient did have a BUN of 112 creatinine is 2.82 no CBC was done today Objective - Vital Signs Vital signs: Vital Signs Temp 97.9 F 09/22/24 11:45 Pulse 88 09/22/24 13:23 Resp 18 09/22/24 13:23 BP 134/80 09/22/24 11:45 Pulse Ox 97 09/22/24 11:45 FiO2 Intake & Output 09/21/24 09/22/24 09/22/24 18:59 06:59 18:59 Intake Total 520 20 70 Output Total 600 775 725 Balance -80 -755 -655 Weight 92.4 kg Intake: IV 20 20 20 Invasive Line 3 20 20 20 Oral 500 50 Output: Urine 600 775 725 Other: Voiding Method Urinal Urinal Urinal # Bowel Movements 1 - Exam GENERAL DESCRIPTION: An elderly male up in the chair in no distress RESPIRATORY SYSTEM: Unlabored breathing , coarse breath sounds bilaterally HEART: S1 S2 regular rate and rhythm , ABDOMEN: Soft , no tenderness - Labs CBC & Chem 7: 09/20/24 07:03 09/22/24 07:50 Labs: Abnormal Lab Results - Last 24 Hours (Table) 09/21/24 09/21/24 09/22/24 Range/Units 16:31 19:53 07:50 BUN 112 H* (9-20) mg/dL Creatinine 2.82 H (0.66-1.25) mg/dL Glucose 133 H (74-99) mg/dL POC Glucose (mg/dL) 147 H 214 H (70-110) mg/dL Magnesium 2.5 H (1.6-2.3) mg/dL 09/22/24 Range/Units 11:20 BUN (9-20) mg/dL Creatinine (0.66-1.25) mg/dL Glucose (74-99) mg/dL POC Glucose (mg/dL) 119 H (70-110) mg/dL Magnesium (1.6-2.3) mg/dL Assessment and Plan (1) Pneumonia Current Visit: Yes Status: Acute Code(s): J18.9 - PNEUMONIA, UNSPECIFIED ORGANISM SNOMED Code(s): 316020995 (2) Leukopenia Current Visit: Yes Status: Acute Code(s): D72.819 - DECREASED WHITE BLOOD CELL COUNT, UNSPECIFIED SNOMED Code(s): 69097325 (3) C. difficile colitis Current Visit: Yes Status: Acute Code(s): A04.72 - ENTEROCOLITIS D/T CLOSTRIDIUM DIFFICILE, NOT SPCF RECUR SNOMED Code(s): 964508725 Plan: 1patient presented to hospital with increasing shortness of breath which is likely multifactorial possible combination of fluid overload which could be related to his cardiac/renal condition plus minus a component of pneumonia not entirely excluded 2sputum culture x 2 has been negative patient has received adequate Zosyn during this hospital stay now with developing diarrhea and C. difficile Zosyn has been discontinued 3patient mention improvement in the diarrhea to continue oral vancomycin for C. difficile colitis and monitor clinical course closely Dictation was produced using [employer] dictation software. please excuse any grammatical, word or spelling errors. Time with Patient: Less than 30
--- NOTE | 2024-09-22 16:22 | P.PN ---
Subjective Progress Note Date: 09/21/24 Principal diagnosis: Reason for follow-up is C. difficile colitis Patient is a 74-year-old male with a past medical history significant for hypertension [place] heart failure with COPD hepatocellular carcinoma/hepatitis C patient presenting to the hospital a on 09/13/2024 concerning for increasing shortness of breath along with A-fib with RVR there was a concern for pneumonia treated with Zosyn. On today's evaluation that is 09/21/2024, patient has been afebrile, patient is still complaining of shortness of breath did have a cough with frothy sputum denies any nausea or vomiting no abdominal pain diarrhea is slowed down Patient did not have a lab draw today Objective - Vital Signs Vital signs: Vital Signs Temp 98.2 F 09/20/24 20:40 Pulse 84 09/21/24 12:38 Resp 19 09/21/24 11:55 BP 129/75 09/21/24 11:55 Pulse Ox 99 09/21/24 11:55 FiO2 Intake & Output 09/20/24 09/21/24 09/21/24 18:59 06:59 18:59 Intake Total 730 20 10 Output Total 800 300 Balance -70 20 -290 Weight 93.7 kg Intake: IV 10 20 10 Invasive Line 3 10 20 10 Oral 720 Output: Urine 800 300 Other: Voiding Method Urinal Urinal Urinal # Voids 1 # Bowel Movements 1 - Exam GENERAL DESCRIPTION: An elderly male up in the chair in no distress RESPIRATORY SYSTEM: Unlabored breathing , coarse breath sounds bilaterally HEART: S1 S2 regular rate and rhythm , ABDOMEN: Soft , no tenderness - Labs CBC & Chem 7: 09/20/24 07:03 09/22/24 07:50 Labs: Abnormal Lab Results - Last 24 Hours (Table) 09/20/24 09/20/24 09/21/24 Range/Units 16:17 20:08 05:55 POC Glucose (mg/dL) 158 H 180 H 134 H (70-110) mg/dL 09/21/24 Range/Units 11:19 POC Glucose (mg/dL) 210 H (70-110) mg/dL Assessment and Plan (1) Pneumonia Current Visit: Yes Status: Acute Code(s): J18.9 - PNEUMONIA, UNSPECIFIED ORGANISM SNOMED Code(s): 401568876 (2) Leukopenia Current Visit: Yes Status: Acute Code(s): D72.819 - DECREASED WHITE BLOOD CELL COUNT, UNSPECIFIED SNOMED Code(s): 63731611 (3) C. difficile colitis Current Visit: Yes Status: Acute Code(s): A04.72 - ENTEROCOLITIS D/T CLOSTRIDIUM DIFFICILE, NOT SPCF RECUR SNOMED Code(s): 851440188 Plan: 1patient presented to hospital with increasing shortness of breath which is likely multifactorial possible combination of fluid overload which could be related to his cardiac/renal condition plus minus a component of pneumonia not entirely excluded 2sputum culture x 2 has been negative patient has received adequate Zosyn during this hospital stay now with developing diarrhea and C. difficile Zosyn has been discontinued 3patient currently being treated oral vancomycin for C. difficile colitis and monitor clinical course closely Dictation was produced using [employer] dictation software. please excuse any grammatical, word or spelling errors. Time with Patient: Less than 30
[2024-09-22 16:38] LABS: Glucose,Whole Blood 203 mg/dL (70-110)
[2024-09-22 20:35] LABS: Glucose,Whole Blood 209 mg/dL (70-110)
[2024-09-23 04:09] LABS: HCT 27.5 % (39.6-50.0); HGB 8.3 g/dL (13.0-17.0); Lymphocytes % (A) 5.3 %; MCHC 30.2 g/dL (32.0-37.0); MCV 86.2 fL (80.0-97.0); Mean Platelet Volume 12.2 fL (9.5-12.2); Monocytes # (A) 0.09 10*3/uL (0.20-1.00); Monocytes % (A) 4.8 %; Neutrophils # (A) 1.67 10*3/uL (1.80-7.70); Neutrophils % (A) 88.3 %; RBC 3.19 10*6/uL (4.40-5.60); RDW 17.1 % (11.5-14.5); WBC 1.89 10*3/uL (4.50-10.00)
[2024-09-23 04:21] LABS: African American GFR (CKD) 27 (>60 ml/min/1.73 sqM); Anion Gap 10 mmol/L; Calcium 8.5 mg/dL (8.4-10.2); Carbon Dioxide 26 mmol/L (22-30); Chloride 102 mmol/L (98-107); Glucose 107 mg/dL (74-99); Magnesium 2.6 mg/dL (1.6-2.3); Non-African American GFR(CKD) 23 (>60 ml/min/1.73 sqM); Potassium 4.5 mmol/L (3.5-5.1); Sodium 138 mmol/L (137-145)
[2024-09-23 04:26] LABS: Blood Urea Nitrogen 109 mg/dL (9-20)
[2024-09-23 04:35] LABS: Platelet Count 78 10*3/uL (140-440)
--- NOTE | 2024-09-23 05:54 | P.PN ---
Subjective Progress Note Date: 09/22/24 74-year-old male, history of COPD, CAD/CHF, aortic stenosis, atrial fibrillation, hypertension, CKD, presents to ED with complaint chest discomfort and worsening shortness of breath. He is chronically debilitated and is willing more weak than usual; patient was hospitalized few days back and the patient was discharged home and his condition decompensated over the past 24 hours. The patient was hypoxic and his oxygen requirements progressively got worse and is currently on 15 L of oxygen by nasal cannula with a pulse ox of 93%. He typically uses oxygen between 2 and 3 L. Chest x-ray in the emergency department that showed development of new bilateral lower lobe pulmonary filtrates consistent with pneumonia. - The white cell count is 8.9 with a hemoglobin 11.9 and a platelet count of 142. BUN is 64 with a creatinine of 2.7 and sodium levels at 138. Potassium level is at 4.4. Initial lactic acid level was at 3.1 down to 1.6. Procalcitonin level is pending. proBNP level is 26,100. Troponins at 0.03. Rest of the liver function tests are normal. The viral screen is negative. -CAT scan showed cardiomegaly, splenomegaly, small bilateral pleural effusion, bibasilar pulmonary consolidation in addition to consolidation of the right middle lobe and the findings are quite suspicious for an underlying pneumonia. The patient was started on Zosyn and is also on Zithromax per pulmonary recommendation. While in ED, the patient was noted to be hypotensive. He was started on low-dose norepinephrine for hemodynamic support. The patient is currently on norepinephrine running at 0.05 mcg/kg/min. Awake and alert and communicating 09/14/2024 Patient is seen in follow-up today in the ICU with pulmonary and cardiology following for pneumonia and CHF exacerbation. Patient currently on 3 L via nasal continues with extensive pneumonia maintained on Zithromax. Ceftriaxone was discontinued per pulmonary and started on Zosyn. Preliminary blood cultures are no growth and sputum culture is ordered and pending at this time. Patient's kidney functions are elevated above 3 creatinine and will consult nephrology and appreciate input and recommendations. Pulmonary low pressure kettle operator recommending possible transfer for tertiary treatment as patient was scheduled to undergo cardiac intervention at [facility] and feels he would benefit from being evaluated by them continuing care for his surgical procedure. Pretesting was to be done on this Saturday regarding CAT scans, blood work, further imaging. Given patient's extensive comorbidities and ongoing issues would recommend transfer to tertiary treatment. Will attempt to contact transfer center to discuss possible transfer. 09/15/2024. Patient is seen in follow-up today continues in the ICU although is a downgrade to 3 S. once a bed becomes available. Patient continues on 3 L with pulmonary and cardiology following maintained on antibiotics and sputum culture remains pending. Creatinine is 3.33 nephrology consulted and appreciate input and recommendations regarding acute on chronic kidney disease with L[place]. Patient is afebrile although reports continued shortness of breath. Patient was scheduled for outpatient testing for further surgical intervention with Jarrod Akers this Saturday although will likely need to be rescheduled. Patient does not appear to be a good surgical candidate and is high risk given significant comorbidities. Encouraged to increase activity as tolerated and patient is reporting significant difficulty and pain with swallowing. Speech is consulted and will likely undergo swallow study 09/16/2024 Patient is seen and evaluated in follow-up reporting he does not feel well and continues to be short of breath and reporting continued difficulty with swallowing although underwent modified barium swallow study and is recommended to continue on current regimen and soft foods. Patient white count remains low although slightly improved at 2.49, hemoglobin is stable at 9.1 although co ntinues to report coughing and spitting up blood at times. Eliquis remains on hold and platelet count is low at 68. Sodium 140 with a potassium of 4.6, BUN 92 and creatinine is 3.21. Nephrology following along with pulmonary, cardiology and continued on IV steroids along with breathing treatments. 09/17/2024 Patient is seen in follow-up today and continues to report shortness of breath and hemoptysis and not feeling much improved. Kidney functions are trending down with nephrology following and will continue current regimen. Hemoglobin remained stable at the increased hemoptysis. Sodium is 138 with a potassium of 4.5, BUN is 100 with a creatinine of 2.98. Blood sugars being monitored and will continue current regimen. Patient is maintained on IV steroids along with breathing treatments and antibiotics and will continue. Patient continues to have persistent cough with no real improvement is maintained on antibiotics and will consult infectious disease and appreciate input and recommendations. Patient continues have significant wheezing and IV steroids being advanced. 09/18/2024 Patient is seen and evaluated this morning continues to show no significant improvement with continued shortness of breath and cough. Lung sounds are congested and rhonchorous with wheezing noted. Abdomen is distended and patient is reporting no abdominal pain and is having bowel movements that are loose. Pulmonary following and patient does not appear to be a candidate for bronchoscopy. Infectious disease was consulted and appreciate input and recommendations regarding persistent with pneumonia with no improvements, preliminary cultures have been negative thus far. Patient is no code and this was addressed again as patient is discussing further with family about overall prognosis and does not want to end up on a mechanical ventilator and unsure if he wants to have a bronchoscopy or any further intervention. 09/19/2024 Patient is evaluated in follow-up on the cardiac unit. He continues to have rhonchorous lung sounds and also wheezing noted. Patient was found to be C. dif ficile positive. He has been started on oral vancomycin. IV zosyn to be discontinued. Hospice was discussed patient wants to see how he improves over the next few days. WBC 1.02, hgb 8.3, platelet count 61, BUN 103, creatinine 2.82. 09/20/2024 Patient is evaluated in follow-up in the cardiac floor. He remains on oral vancomycin due to the C. difficile colitis. He has had 1 bowel movement doc umented overnight. His labs today reveal a white blood cell count of 1.60, hemoglobin 8.6, platelet count of 70, BUN of 109 creatinine of 2.79. Had a chest x-ray this morning which reveals a similar right basilar airspace opacity and blunting of the costophrenic angle suggestive of pleural effusions. He is on 5 L of oxygen via nasal cannula. His sputum culture has been final and negative. No further hemoptysis reported. 09/21/2024 Patient is seen in follow-up today patient is continued on oral antibiotics in the form of vancomycin and patient continues to have some episodes of loose stools. Patient reports continued hemoptysis with no significant improvement in breathing and continues to report shortness of breath and maintained on 5 L. Per nursing staff there was discussion of possible hospice with a possible informational meeting being arranged. Patient to discuss further with family. 09/22/2024 Patient is seen in follow-up today currently sitting up in the chair reports continued diarrhea although somewhat improved maintained on vancomycin with infectious disease following. Repeat sputum cultures are negative. Discussion was had of endoscopy with pulmonary although patient had refused. Patient is becoming frustrated about continuing to be hospitalized and reports he had follow-up appointments out of [facility] cardiology as he has been following in the outpatient setting. Will attempt to discuss further with family regarding treatment plan moving forward. There was discussion of hospice which is currently on hold at this time. Review of systems: Constitutional: No reports of fatigue, fever, or chills Cardiovascular: No reports of chest pain or palpitations Respiratory: reports of continued shortness of breath and persistent cough GI: No reports of nausea, vomiting, reports diarrhea, reports not much of an appetite and still having difficulties with swallowing things, eating only soft foods on occasion, continued loose stools with some minimal improvement : No reports of dysuria or retention Neurovascular: reports of generalized weakness All medications have been reviewed Physical exam: Gen: This is a 74-year-old male who is awake, alert and oriented x 3, thin built, elderly appearing, ill-appearing HEENT: Head is atraumatic, normocephalic. Pupils equal, round. Sclerae is anicteric. NECK: Supple. No JVD. No lymphadenopathy. No thyromegaly. LUNGS: Diminished breath sounds bilaterally with coarse scattered rhonchi noted, bronchial congestion and faint crackles with expiratory wheezing. No intercostal retractions. HEART: S1, S2 are muffled ABDOMEN: Soft. Mildly distended and nontender, bowel sounds are present. No masses. No tenderness. EXTREMITIES: No pedal edema. No calf tenderness. Mild bilateral lower extremity edema noted NEUROLOGICAL: Patient is awake, alert and oriented x3. Cranial nerves 2 through 12 are grossly intact. Diffusely weak Assessment: -Acute C. difficile colitis -Acute bilateral lower lobe pneumonia/likely gram-negative pneumonia of the right lung base, with sepsis present on admission, cultures thus far negative -Acute on chronic hypoxic respiratory failure; currently on 5 L of oxygen by nasal cannula -Acute hypotension; likely secondary to sepsis and the patient was on low-dose norepinephrine which has been discontinued. -Acute exacerbation COPD -Chronic systolic heart failure. Most recent EF revealing impaired LV function with an EF of 35 to 40% with moderate degree of aortic valve stenosis. Aortic dilatation at the level of the root also noted with moderate RV dilatation and mild pulmonary -hypertension history -Chronic atrial fibrillation, currently rate controlled, maintained on anticoagulation with Eliquis although being held for continued hemoptysis -Chronic stage III kidney disease, with acute [place], worsening kidney functions -History of implantation of permanent pacemaker. -History of hepatitis C/chronic liver disease/hepatocellular carcinoma. 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 -Hepatocellular carcinoma. GI prophylaxis DVT prophylaxis; SCDs/systemic anticoagulation DNR Plan: Patient continues to report shortness of breath with minimal exertion and continued cough with occasional bleeding noted. Eliquis is on hold. Pulmonary following discussing possible bronchoscopy although patient refused as he does not want to go on mechanical ventilation hemoglobin is stable at this time and will follow-up on repeat labs. Transfuse if 7 or less as patient reports he continues to have hemoptysis. nephrology following for acute on chronic kidney disease with worsening kidney functions. Creatinine slightly improved. Patient is pancytopenic secondary to chronic liver disease also underlying infection with noted thrombocytopenia and leukopenia. This appears chronic as well Follow-up on repeat labs and replace electrolytes per protocol Encouraged increased activity as tolerated. Patient underwent swallow study with no signs of aspiration although continues to have difficulty with swallowing, recommend soft and/or liquid diet as tolerated. Patient is debilitated and lethargic at times and extremely weak, would recommend aspiration precautions and supervision with meals Patient having multiple episodes of loose stools and C. difficile was found to be positive he is started on oral vancomycin Discussion was had about the need for possible bronchoscopy although patient does not appear to be a stable candidate for intervention like this at this time and patient reports he is unsure if he wants to proceed with this as well. Patient is no code discuss further with family regarding overall treatment plan moving forward. There is discussion of possible hospice possible hospice informational meeting although that appears to be on hold and will discuss further with family members Due to multiple complex medical issues, overall prognosis is extremely poor and guarded The impression and plan of care has been dictated by Marie Inman, Nurse Practitioner as directed. Dr. Golden MD I have performed a history and examination and MDM of this patient, discussed the same with the dictator, and agree with the dictator's assessment and plan as written ,documented as a scribe. Based on total visit time, I have performed more than 50% of the visit. Objective - Vital Signs Vital signs: Vital Signs Temp 98 F 09/22/24 20:00 Pulse 81 09/22/24 21:32 Resp 18 09/22/24 21:32 BP 138/79 09/22/24 20:00 Pulse Ox 99 09/22/24 20:00 FiO2 Intake & Output 09/22/24 09/22/24 09/23/24 06:59 18:59 06:59 Intake Total 20 70 10 Output Total 775 1025 Balance -680 -211 10 Weight 92.4 kg Intake: IV 20 20 10 Invasive Line 3 20 20 10 Oral 50 Output: Urine 775 1025 Other: Voiding Method Urinal Urinal Urinal # Bowel Movements 1 - Labs CBC & Chem 7: 09/23/24 03:17 09/23/24 03:17 Labs: Abnormal Lab Results - Last 24 Hours (Table) 09/22/24 09/22/24 09/22/24 Range/Units 07:50 11:20 16:32 BUN 112 H* (9-20) mg/dL Creatinine 2.82 H (0.66-1.25) mg/dL Glucose 133 H (74-99) mg/dL POC Glucose (mg/dL) 119 H 203 H (70-110) mg/dL Magnesium 2.5 H (1.6-2.3) mg/dL 09/22/24 Range/Units 20:34 BUN (9-20) mg/dL Creatinine (0.66-1.25) mg/dL Glucose (74-99) mg/dL POC Glucose (mg/dL) 209 H (70-110) mg/dL Magnesium (1.6-2.3) mg/dL
[2024-09-23 06:25] LABS: Glucose,Whole Blood 92 mg/dL (70-110)
--- NOTE | 2024-09-23 08:26 | XR ---
EXAMINATION TYPE: XR chest 1V DATE OF EXAM: 09/23/2024 6:44 AM COMPARISON: Chest radiograph from 3 days prior. CLINICAL INDICATION: Male, 74 years old with history of sob; [facility] TECHNIQUE: XR chest 1V Frontal view of the chest. FINDINGS: Lungs/Pleura: Improved aeration of lungs on today's exam with persistent airspace opacities scattered throughout the lungs. No evidence of pneumothorax or large pleural effusion. Pulmonary vascularity: Unremarkable. Heart/mediastinum: Cardiomediastinal silhouette is unremarkable. Two lead cardiac conduction device o verlying the left hemithorax with lead tips projecting over the right ventricle and right atrium. Musculoskeletal: No acute osseous pathology. Other findings: Right neck surgical clips. IMPRESSION: 1. Improved aeration of the lungs with persistent multifocal airspace opacities. 2. Blunting of the costophrenic angle suggestive of pleural effusions. [facility], , 09/23/2024 8:23 AM
--- NOTE | 2024-09-23 10:11 | P.PN ---
Subjective Patient is seen in follow-up for acute kidney injury on chronic kidney disease. Renal function fairly stable. On IV Lasix. Still complaining of edema. Vital signs are stable. General: No acute distress. HEENT: Head exam is unremarkable. On 4 L nasal cannula. LUNGS: No audible rhonchi or wheezes. HEART: Rate and Rhythm are regular. ABDOMEN: Nontender. EXTREMITITES: 2+ edema. Objective - Vital Signs Vital signs: Vital Signs Temp 98.0 F 09/23/24 07:13 Pulse 94 09/23/24 07:13 Resp 16 09/23/24 07:13 BP 134/82 09/23/24 07:13 Pulse Ox 98 09/23/24 07:13 FiO2 Intake & Output 09/22/24 09/23/24 09/23/24 18:59 06:59 18:59 Intake Total 70 10 Output Total 1025 400 Balance -955 -390 Weight 93.5 kg Intake: IV 20 10 Invasive Line 3 20 10 Oral 50 Output: Urine 1025 400 Other: Voiding Method Urinal Urinal # Bowel Movements 1 - Labs CBC & Chem 7: 09/23/24 03:17 09/23/24 03:17 Labs: Abnormal Lab Results - Last 24 Hours (Table) 09/22/24 09/22/24 09/22/24 Range/Units 11:20 16:32 20:34 WBC (4.50-10.00) 10*3/uL RBC (4.40-5.60) 10*6/uL Hgb (13.0-17.0) g/dL Hct (39.6-50.0) % MCH (27.0-32.0) pg MCHC (32.0-37.0) g/dL Plt Count (140-440) 10*3/uL Neutrophils # (1.80-7.70) 10*3/uL Lymphocytes # (0.90-5.00) 10*3/uL Monocytes # (0.20-1.00) 10*3/uL Eosinophils # (0.04-0.35) 10*3/uL BUN (9-20) mg/dL Creatinine (0.66-1.25) mg/dL Glucose (74-99) mg/dL POC Glucose (mg/dL) 119 H 203 H 209 H (70-110) mg/dL Magnesium (1.6-2.3) mg/dL 09/23/24 09/23/24 Range/Units 03:17 03:17 WBC 1.89 L (4.50-10.00) 10*3/uL RBC 3.19 L (4.40-5.60) 10*6/uL Hgb 8.3 L (13.0-17.0) g/dL Hct 27.5 L (39.6-50.0) % MCH 26.0 L (27.0-32.0) pg MCHC 30.2 L (32.0-37.0) g/dL Plt Count 78 L (140-440) 10*3/uL Neutrophils # 1.67 L (1.80-7.70) 10*3/uL Lymphocytes # 0.10 L (0.90-5.00) 10*3/uL Monocytes # 0.09 L (0.20-1.00) 10*3/uL Eosinophils # 0.00 L (0.04-0.35) 10*3/uL BUN 109 H* (9-20) mg/dL Creatinine 2.65 H (0.66-1.25) mg/dL Glucose 107 H (74-99) mg/dL POC Glucose (mg/dL) (70-110) mg/dL Magnesium 2.6 H (1.6-2.3) mg/dL Assessment and Plan Plan: Assessment: 1. Acute kidney injury secondary to ATN secondary to severe sepsis. Also component of cardiorenal syndrome. Renal function fairly stable. No hydronephrosis noted on ultrasound done in August 2024. UA with trace protein. Elevated BUN partially due to steroids. 2. Chronic kidney disease stage IV with baseline creatinine near 2.3 secondary to nephrosclerosis. 3. Acute on chronic systolic CHF ejection fraction of 35 to 40%. 4. Volume overload. Improving with diuresis. 5. History of hepatitis C and hepatocellular carcinoma. 6. C. difficile colitis maintained on oral vancomycin. Plan: Maintain IV Lasix. Add metolazone 5 mg once daily. Maintain low-salt diet. Maintain 1500 cc fluid restriction. Continue to monitor renal function and urine output.
[2024-09-23 11:12] LABS: Glucose,Whole Blood 115 mg/dL (70-110)
[2024-09-23] MEDS: metOLazone 5 MG TAB PO SCH (11:14)
--- NOTE | 2024-09-23 14:16 | P.PN ---
Subjective Progress Note Date: 09/23/24 This is a 74-year-old male patient with multiple medical problems and coming into the department having chest discomfort, cough, congestion and worsening shortness of breath. He is chronically debilitated and is willing more weak than usual. Denies having any fever. No hemoptysis. No pleurisy. Noted, the patient was hospitalized few days back and the patient was discharged home and his condition decompensated over the past 24 hours. The patient had a follow-up chest x-ray in the emergency department that showed development of new bilateral lower lobe pulmonary filtrates consistent with pneumonia. The patient was hypoxic and his oxygen requirements progressively got worse and is currently on 15 L of oxygen by nasal cannula with a pulse ox of 93%. He typically uses oxygen between 2 and 3 L. He remains in chronic atrial fibrillation. The white cell count is 8.9 with a hemoglobin 11.9 and a platelet count of 142. BUN is 64 with a creatinine of 2.7 and sodium levels at 138. Potassium level is at 4.4. Initial lactic acid level was at 3.1 down to 1.6. Procalcitonin level is pending. proBNP level is 26,100. Troponins at 0.03. Rest of the liver function tests are normal. The viral screen is negative. Based on his clinical presentation, I ordered a noncontrast CAT scan of the chest and the CAT scan showed cardiomegaly, splenomegaly, small bilateral pleural effusion, bibasilar pulmonary consolidation in addition to consolidation of the right middle lobe and the findings are quite suspicious for an underlying pneumonia. The patient accordingly was started on Zosyn and is also on Zithromax. On a separate note, the patient was noted to be hypotensive. He was started on low-dose norepinephrine for hemodynamic support. The patient is currently on norepinephrine running at 0.05 mcg/kg/min. Awake and alert and communicating His comorbidities are multiple and the patient is known to have COPD, chronic stage III kidney disease, congestion heart failure with a ejection fraction of 35 to 40% and the patient has moderate degree of aortic stenosis and mild pulmonary hypertension, chronic A-fib, hypertension, history of pancytopenia as the patient has previous history of hepatitis C and history of hepatocellular carcinoma and he also has previous history of coronary artery disease with previous MT and hypertension and the patient has a permanent pacemaker in place. Patient was seen today on 09/14/2024, patient remains in the ICU, on 3 L nasal cannula, he has significant pneumonia bilaterally possibly aspiration related or could be hospital-acquired pneumonia. In addition the patient has hemoptysis, I went ahead and held his Eliquis today. Patient is on antibiotics in the form of Zosyn and Zithromax, he is also on bronchodilators, and he is supposed to foll ow-up at [facility] on Saturday for his severe aortic stenosis, however looking at the overall picture, patient is not going to be discharged before Saturday considering the extensiveness of his pneumonia. Hence I will ask the admitting physician to consider transferring the patient to [facility] if possible. In the meantime patient is on antibiotics in the form of Zithromax and Zosyn, and he is on 3 L nasal cannula, not in distress. WBC count is 1.45 hemoglobin 9.2 electrolytes are normal BUN is 75 creatinine 3.36. Seems to be getting worse. Urine Legionella antigen is negative. Patient was seen today on 09/30, on 3 L nasal cannula, remains in the ICU, complaining of difficulty swallowing, patient continues to have bibasilar consolidation, chest x-ray showing slight improvement clinically the patient is about the same but he seems to be more bothered with his difficulty swallowing. Patient remains on antibiotics in the form of Zosyn and Zithromax, he is on b ronchodilators, he does have history of severe aortic stenosis, and he supposedly has an appointment with cardiology at [facility] tomorrow. But this is most likely going to be canceled and he will have to set up another appointment on outpatient basis. WBC count today is 1.59 hemoglobin is 8.7 electrolytes are normal BUN is 85 creatinine 3.33. Again his chest x-ray showed slight improvement in his bilateral pneumonia but definitely not resolved. The patient is seen today September 16, 2024 in follow-up on the selective care unit. He is awake and alert in no acute distress. Sitting up in a chair at the bedside. Maintaining O2 saturations in the 90s on 4 L/min per nasal cannula. H e has been afebrile. Hemodynamically stable. Continues with a loose congested cough. Barium swallow revealed no evidence of aspiration. Blood culture reveals no growth. Sputum culture revealed no growth. White count 2.4. Hemoglobin 9.1. Platelets 68,000. Sodium 140. Potassium 4.6. Bicarb 24. BUN 92. Creatinine 3.21. Glucose 127. He remains on DuoNeb inhalations, Symbicort, Solu-Medrol. Continued on Zosyn. The patient is seen today September 23, 2024 in follow-up on the regular medical floor. He is currently sitting up in a chair at the bedside. Awake and alert in no acute distress. He has been slow to progress. He remains on oxygen at 4 L/min per nasal cannula with O2 saturations in the upper 90s. He is afebrile. Hemodynamically stable. Today's chest x-ray shows improved aeration of the lungs with persistent multifocal airspace opacities. Blood culture revealed no growth. Sputum culture revealed no growth x 2. White count 1.8. Hemoglobin 8.3. Platelets 78,000. Sodium 138. Potassium 4.5. Bicarb 26. BUN 109. Creatinine 2.65. Glucose 107. He remains on DuoNeb inhalations, Symbicort, prednisone taper. Continued on oral vancomycin for C. difficile. Continued on IV and oral diuretics. Objective - Vital Signs Vital signs: Vital Signs Temp 98.4 F 09/23/24 13:36 Pulse 94 09/23/24 13:36 Resp 17 09/23/24 13:36 BP 118/79 09/23/24 13:36 Pulse Ox 98 09/23/24 13:36 FiO2 Intake & Output 09/22/24 09/23/24 09/23/24 18:59 06:59 18:59 Intake Total 70 10 Output Total 1025 400 450 Balance -955 -390 -450 Weight 93.5 kg Intake: IV 20 10 Invasive Line 3 20 10 Oral 50 Output: Urine 1025 400 450 Other: Voiding Method Urinal Urinal Urinal # Bowel Movements 1 - Exam GENERAL EXAM: Alert, weak, 74-year-old male, up in a chair, on 4 L nasal cannula, in no apparent distress. HEAD: Normocephalic. EYES: Normal reaction of pupils, equal size. NOSE: Clear with pink turbinates. THROAT: No erythema or exudates. NECK: No masses, no JVD. CHEST: No chest wall deformity. LUNGS: Equal air entry with bilateral scattered rhonchi, wheeze. CVS: S1 and S2 normal with no audible murmur, regular rhythm. ABDOMEN: No hepatosplenomegaly, normal bowel sounds, no guarding or rigidity. SPINE: No scoliosis or deformity SKIN: No rashes CENTRAL NERVOUS SYSTEM: No focal deficits, tone is normal in all 4 extremities. EXTREMITIES: There is no peripheral edema. No clubbing, no cyanosis. Peripheral pulses are intact. - Labs CBC & Chem 7: 09/23/24 03:17 09/23/24 03:17 Labs: Abnormal Lab Results - Last 24 Hours (Table) 09/22/24 09/22/24 09/23/24 Range/Units 16:32 20:34 03:17 WBC (4.50-10.00) 10*3/uL RBC (4.40-5.60) 10*6/uL Hgb (13.0-17.0) g/dL Hct (39.6-50.0) % MCH (27.0-32.0) pg MCHC (32.0-37.0) g/dL Plt Count (140-440) 10*3/uL Neutrophils # (1.80-7.70) 10*3/uL Lymphocytes # (0.90-5.00) 10*3/uL Monocytes # (0.20-1.00) 10*3/uL Eosinophils # (0.04-0.35) 10*3/uL BUN 109 H* (9-20) mg/dL Creatinine 2.65 H (0.66-1.25) mg/dL Glucose 107 H (74-99) mg/dL POC Glucose (mg/dL) 203 H 209 H (70-110) mg/dL Magnesium 2.6 H (1.6-2.3) mg/dL 09/23/24 09/23/24 Range/Units 03:17 11:09 WBC 1.89 L (4.50-10.00) 10*3/uL RBC 3.19 L (4.40-5.60) 10*6/uL Hgb 8.3 L (13.0-17.0) g/dL Hct 27.5 L (39.6-50.0) % MCH 26.0 L (27.0-32.0) pg MCHC 30.2 L (32.0-37.0) g/dL Plt Count 78 L (140-440) 10*3/uL Neutrophils # 1.67 L (1.80-7.70) 10*3/uL Lymphocytes # 0.10 L (0.90-5.00) 10*3/uL Monocytes # 0.09 L (0.20-1.00) 10*3/uL Eosinophils # 0.00 L (0.04-0.35) 10*3/uL BUN (9-20) mg/dL Creatinine (0.66-1.25) mg/dL Glucose (74-99) mg/dL POC Glucose (mg/dL) 115 H (70-110) mg/dL Magnesium (1.6-2.3) mg/dL Assessment and Plan Assessment: Acute on chronic hypoxic respiratory failure secondary to an acute exacerbation of chronic systolic congestive heart failure Acute bilateral pneumonia could be aspiration pneumonia or could be hospital- acquired pneumonia Acute sepsis and hypotension with leukocytosis secondary to above Acute kidney injury secondary to ATN secondary to severe sepsis. Consider cardiorenal syndrome Chronic systolic congestive heart failure ejection fraction of 35 to 40% in addition patient has moderate severe aortic stenosis Chronic atrial fibrillation Severe underlying COPD FEV1 of 59% Chronic kidney disease stage IV secondary to nephrosclerosis History of pacemaker implantation History of hypertension History of hepatitis C Pancytopenia secondary to liver disease Parotid gland carcinoma History of hepatocellular carcinoma Plan: The patient was seen and evaluated Chest x-ray, labs and medications reviewed Stable on 4 L nasal cannula Continue DuoNeb inhalations Continue Symbicort Continue prednisone taper Remains on IV diuretics Remains on fluid restrictions Remains on low-salt diet Titrate the FiO2 as tolerated Increase his activity as tolerated Overall prognosis is poor DNR CODE STATUS We will continue to follow I have personally seen and examined the patient, performed the documentation and the assessment and plan as written. Number of minutes spent on the visit: 10 Dictation was produced using [employer] software. Please excuse any grammatical, word or spelling errors.
[2024-09-23 16:05] LABS: Glucose,Whole Blood 166 mg/dL (70-110)
[2024-09-23] MEDS: SYMBICORT 160-4.5 MCG INHALER INHALATION SCH (20:38)
[2024-09-23 22:05] LABS: Glucose,Whole Blood 181 mg/dL (70-110)
[2024-09-24 06:10] LABS: Glucose,Whole Blood 117 mg/dL (70-110)
--- NOTE | 2024-09-24 06:10 | P.PN ---
Subjective Progress Note Date: 09/23/24 74-year-old male, history of COPD, CAD/CHF, aortic stenosis, atrial fibrillation, hypertension, CKD, presents to ED with complaint chest discomfort and worsening shortness of breath. He is chronically debilitated and is willing more weak than usual; patient was hospitalized few days back and the patient was discharged home and his condition decompensated over the past 24 hours. The patient was hypoxic and his oxygen requirements progressively got worse and is currently on 15 L of oxygen by nasal cannula with a pulse ox of 93%. He typically uses oxygen between 2 and 3 L. Chest x-ray in the emergency department that showed development of new bilateral lower lobe pulmonary filtrates consistent with pneumonia. - The white cell count is 8.9 with a hemoglobin 11.9 and a platelet count of 142. BUN is 64 with a creatinine of 2.7 and sodium levels at 138. Potassium level is at 4.4. Initial lactic acid level was at 3.1 down to 1.6. Procalcitonin level is pending. proBNP level is 26,100. Troponins at 0.03. Rest of the liver function tests are normal. The viral screen is negative. -CAT scan showed cardiomegaly, splenomegaly, small bilateral pleural effusion, bibasilar pulmonary consolidation in addition to consolidation of the right middle lobe and the findings are quite suspicious for an underlying pneumonia. The patient was started on Zosyn and is also on Zithromax per pulmonary recommendation. While in ED, the patient was noted to be hypotensive. He was started on low-dose norepinephrine for hemodynamic support. The patient is currently on norepinephrine running at 0.05 mcg/kg/min. Awake and alert and communicating 09/14/2024 Patient is seen in follow-up today in the ICU with pulmonary and cardiology following for pneumonia and CHF exacerbation. Patient currently on 3 L via nasal continues with extensive pneumonia maintained on Zithromax. Ceftriaxone was discontinued per pulmonary and started on Zosyn. Preliminary blood cultures are no growth and sputum culture is ordered and pending at this time. Patient's kidney functions are elevated above 3 creatinine and will consult nephrology and appreciate input and recommendations. Pulmonary malthouse laborer recommending possible transfer for tertiary treatment as patient was scheduled to undergo cardiac intervention at [facility] and feels he would benefit from being evaluated by them continuing care for his surgical procedure. Pretesting was to be done on this Saturday regarding CAT scans, blood work, further imaging. Given patient's extensive comorbidities and ongoing issues would recommend transfer to tertiary treatment. Will attempt to contact transfer center to discuss possible transfer. 09/15/2024. Patient is seen in follow-up today continues in the ICU although is a downgrade to 3 S. once a bed becomes available. Patient continues on 3 L with pulmonary and cardiology following maintained on antibiotics and sputum culture remains pending. Creatinine is 3.33 nephrology consulted and appreciate input and recommendations regarding acute on chronic kidney disease with LOND[place]. Patient is afebrile although reports continued shortness of breath. Patient was scheduled for outpatient testing for further surgical intervention with Jarrod Akers this Saturday although will likely need to be rescheduled. Patient does not appear to be a good surgical candidate and is high risk given significant comorbidities. Encouraged to increase activity as tolerated and patient is reporting significant difficulty and pain with swallowing. Speech is consulted and will likely undergo swallow study 09/16/2024 Patient is seen and evaluated in follow-up reporting he does not feel well and continues to be short of breath and reporting continued difficulty with swallowing although underwent modified barium swallow study and is recommended to continue on current regimen and soft foods. Patient white count remains low although slightly improved at 2.49, hemoglobin is stable at 9.1 although co ntinues to report coughing and spitting up blood at times. Eliquis remains on hold and platelet count is low at 68. Sodium 140 with a potassium of 4.6, BUN 92 and creatinine is 3.21. Nephrology following along with pulmonary, cardiology and continued on IV steroids along with breathing treatments. 09/17/2024 Patient is seen in follow-up today and continues to report shortness of breath and hemoptysis and not feeling much improved. Kidney functions are trending down with nephrology following and will continue current regimen. Hemoglobin remained stable at the increased hemoptysis. Sodium is 138 with a potassium of 4.5, BUN is 100 with a creatinine of 2.98. Blood sugars being monitored and will continue current regimen. Patient is maintained on IV steroids along with breathing treatments and antibiotics and will continue. Patient continues to have persistent cough with no real improvement is maintained on antibiotics and will consult infectious disease and appreciate input and recommendations. Patient continues have significant wheezing and IV steroids being advanced. 09/18/2024 Patient is seen and evaluated this morning continues to show no significant improvement with continued shortness of breath and cough. Lung sounds are congested and rhonchorous with wheezing noted. Abdomen is distended and patient is reporting no abdominal pain and is having bowel movements that are loose. Pulmonary following and patient does not appear to be a candidate for bronchoscopy. Infectious disease was consulted and appreciate input and recommendations regarding persistent with pneumonia with no improvements, preliminary cultures have been negative thus far. Patient is no code and this was addressed again as patient is discussing further with family about overall prognosis and does not want to end up on a mechanical ventilator and unsure if he wants to have a bronchoscopy or any further intervention. 09/19/2024 Patient is evaluated in follow-up on the cardiac unit. He continues to have rhonchorous lung sounds and also wheezing noted. Patient was found to be C. dif ficile positive. He has been started on oral vancomycin. IV zosyn to be discontinued. Hospice was discussed patient wants to see how he improves over the next few days. WBC 1.02, hgb 8.3, platelet count 61, BUN 103, creatinine 2.82. 09/20/2024 Patient is evaluated in follow-up in the cardiac floor. He remains on oral vancomycin due to the C. difficile colitis. He has had 1 bowel movement doc umented overnight. His labs today reveal a white blood cell count of 1.60, hemoglobin 8.6, platelet count of 70, BUN of 109 creatinine of 2.79. Had a chest x-ray this morning which reveals a similar right basilar airspace opacity and blunting of the costophrenic angle suggestive of pleural effusions. He is on 5 L of oxygen via nasal cannula. His sputum culture has been final and negative. No further hemoptysis reported. 09/21/2024 Patient is seen in follow-up today patient is continued on oral antibiotics in the form of vancomycin and patient continues to have some episodes of loose stools. Patient reports continued hemoptysis with no significant improvement in breathing and continues to report shortness of breath and maintained on 5 L. Per nursing staff there was discussion of possible hospice with a possible informational meeting being arranged. Patient to discuss further with family. 09/22/2024 Patient is seen in follow-up today currently sitting up in the chair reports continued diarrhea although somewhat improved maintained on vancomycin with infectious disease following. Repeat sputum cultures are negative. Discussion was had of endoscopy with pulmonary although patient had refused. Patient is becoming frustrated about continuing to be hospitalized and reports he had follow-up appointments out of [facility] cardiology as he has been following in the outpatient setting. Will attempt to discuss further with family regarding treatment plan moving forward. There was discussion of hospice which is currently on hold at this time. 09/23/2024 Patient is seen in follow-up today continues to report feelings of weakness and unwell. Patient reports continued diarrhea although is improving and per nursing staff has not had a bowel movement yet this morning and is continued on vancomycin for C. difficile with infectious disease following. Pulmonary following as well continued on treatments and will transition to Symbicort and continue with DuoNebs. Patient with generalized weakness recommend PT/OT therapy and sitting up in the chair more frequently. Patient is currently afebrile and denies any chest pain at this time. Review of systems: Constitutional: No reports of fatigue, fever, or chills Cardiovascular: No reports of chest pain or palpitations Respiratory: reports of continued shortness of breath and persistent cough GI: No reports of nausea, vomiting, reports diarrhea, reports not much of an appetite and still having difficulties with swallowing things, eating only soft foods on occasion, continued loose stools with some improvement and less frequent : No reports of dysuria or retention Neurovascular: reports of generalized weakness All medications have been reviewed Physical exam: Gen: This is a 74-year-old male who is awake, alert and oriented x 3, thin built, elderly appearing, ill-appearing HEENT: Head is atraumatic, normocephalic. Pupils equal, round. Sclerae is anicteric. NECK: Supple. No JVD. No lymphadenopathy. No thyromegaly. LUNGS: Diminished breath sounds bilaterally with coarse scattered rhonchi noted, bronchial congestion and faint crackles with expiratory wheezing. No intercostal retractions. HEART: S1, S2 are muffled ABDOMEN: Soft. Mildly distended and nontender, bowel sounds are present. No masses. No tenderness. EXTREMITIES: No pedal edema. No calf tenderness. Mild bilateral lower extremity edema noted NEUROLOGICAL: Patient is awake, alert and oriented x3. Cranial nerves 2 through 12 are grossly intact. Diffusely weak Assessment: -Acute C. difficile colitis -Acute bilateral lower lobe pneumonia/likely gram-negative pneumonia of the right lung base, with sepsis present on admission, cultures thus far negative -Acute on chronic hypoxic respiratory failure; currently on 5 L of oxygen by nasal cannula -Acute hypotension; likely secondary to sepsis and the patient was on low-dose norepinephrine which has been discontinued. -Acute exacerbation COPD -Chronic systolic heart failure. Most recent EF revealing impaired LV function with an EF of 35 to 40% with moderate degree of aortic valve stenosis. Aortic dilatation at the level of the root also noted with moderate RV dilatation and mild pulmonary -hypertension history -Chronic atrial fibrillation, currently rate controlled, maintained on anticoagulation with Eliquis although being held for continued hemoptysis -Chronic stage III kidney disease, with acute L[place], worsening kidney functions -History of implantation of permanent pacemaker. -History of hepatitis C/chronic liver disease/hepatocellular carcinoma. 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 -Hepatocellular carcinoma. GI prophylaxis DVT prophylaxis; SCDs/systemic anticoagulation DNR Plan: Patient continues to report shortness of breath with minimal exertion and continued cough with occasional bleeding noted. Eliquis is on hold. Pulmonary following discussing possible bronchoscopy although patient refused as he does not want to go on mechanical ventilation hemoglobin is stable at this time and will follow-up on repeat labs. Transfuse if 7 or less as patient reports he continues to have hemoptysis. nephrology following for acute on chronic kidney disease with worsening kidney functions. Creatinine slightly improved. Patient is pancytopenic secondary to chronic liver disease also underlying infection with noted thrombocytopenia and leukopenia. This appears chronic as well Follow-up on repeat labs and replace electrolytes per protocol Encouraged increased activity as tolerated. Patient underwent swallow study with no signs of aspiration although continues to have difficulty with swallowing, recommend soft and/or liquid diet as tolerated. Patient is debilitated and lethargic at times and extremely weak, would recommend aspiration precautions and supervision with meals Patient having multiple episodes of loose stools and C. difficile was found to be positive he has been started on oral vancomycin, less frequent but continues with loose stools, infectious disease following and will continue vancomycin for now Discussion was had about the need for possible bronchoscopy although patient does not appear to be a stable candidate for intervention like this at this time and patient reports he is unsure if he wants to proceed with this as well. Patient is no code discuss further with family regarding overall treatment plan moving forward. There is discussion of possible hospice possible hospice infor mational meeting although that appears to be on hold and will discuss further with family members Due to multiple complex medical issues, overall prognosis is extremely poor and guarded The impression and plan of care has been dictated by Marie Inman, Nurse Practitioner as directed. Dr. Golden MD I have performed a history and examination and MDM of this patient, discussed the same with the dictator, and agree with the dictator's assessment and plan as written ,documented as a scribe. Based on total visit time, I have performed more than 50% of the visit. Objective - Vital Signs Vital signs: Vital Signs Temp 97.6 F 09/23/24 01:21 Pulse 94 09/23/24 01:21 Resp 17 09/23/24 01:21 BP 131/84 09/23/24 01:21 Pulse Ox 98 09/23/24 01:21 FiO2 Intake & Output 09/22/24 09/22/24 09/23/24 06:59 18:59 06:59 Intake Total 20 70 10 Output Total 775 1025 400 Balance -810 -939 -506 Weight 92.4 kg Intake: IV 20 20 10 Invasive Line 3 20 20 10 Oral 50 Output: Urine 775 1025 400 Other: Voiding Method Urinal Urinal Urinal # Bowel Movements 1 - Labs CBC & Chem 7: 09/23/24 03:17 09/23/24 03:17 Labs: Abnormal Lab Results - Last 24 Hours (Table) 09/22/24 09/22/24 09/22/24 Range/Units 07:50 11:20 16:32 WBC (4.50-10.00) 10*3/uL RBC (4.40-5.60) 10*6/uL Hgb (13.0-17.0) g/dL Hct (39.6-50.0) % MCH (27.0-32.0) pg MCHC (32.0-37.0) g/dL Plt Count (140-440) 10*3/uL Neutrophils # (1.80-7.70) 10*3/uL Lymphocytes # (0.90-5.00) 10*3/uL Monocytes # (0.20-1.00) 10*3/uL Eosinophils # (0.04-0.35) 10*3/uL BUN 112 H* (9-20) mg/dL Creatinine 2.82 H (0.66-1.25) mg/dL Glucose 133 H (74-99) mg/dL POC Glucose (mg/dL) 119 H 203 H (70-110) mg/dL Magnesium 2.5 H (1.6-2.3) mg/dL 09/22/24 09/23/24 09/23/24 Range/Units 20:34 03:17 03:17 WBC 1.89 L (4.50-10.00) 10*3/uL RBC 3.19 L (4.40-5.60) 10*6/uL Hgb 8.3 L (13.0-17.0) g/dL Hct 27.5 L (39.6-50.0) % MCH 26.0 L (27.0-32.0) pg MCHC 30.2 L (32.0-37.0) g/dL Plt Count 78 L (140-440) 10*3/uL Neutrophils # 1.67 L (1.80-7.70) 10*3/uL Lymphocytes # 0.10 L (0.90-5.00) 10*3/uL Monocytes # 0.09 L (0.20-1.00) 10*3/uL Eosinophils # 0.00 L (0.04-0.35) 10*3/uL BUN 109 H* (9-20) mg/dL Creatinine 2.65 H (0.66-1.25) mg/dL Glucose 107 H (74-99) mg/dL POC Glucose (mg/dL) 209 H (70-110) mg/dL Magnesium 2.6 H (1.6-2.3) mg/dL
[2024-09-24 10:26] LABS: BUN/Creat Ratio 37.42 Ratio (12.00-20.00); Blood Urea Nitrogen 89.8 mg/dL (9.0-27.0); Calcium 8.1 mg/dL (8.7-10.3); Carbon Dioxide 24.7 mmol/L (21.6-31.8); Chloride 106 mmol/L (96-109); Glucose 94 mg/dL (70-110); Potassium 4.3 mmol/L (3.5-5.5); Sodium 143 mmol/L (135-145)
[2024-09-24 10:38] LABS: Basophils # (A) 0 X 10*3/uL (0.00-0.10); Basophils % (A) 0 %; Eosinophils # (A) 0.01 X 10*3/uL (0.04-0.35); Eosinophils % (A) 0.4 %; HCT 28.1 % (39.6-50.0); HGB 8.4 g/dL (13.0-17.0); Immature Platelet Fraction 3.3 % (1.1-6.1); Lymphocytes # (A) 0.09 X 10*3/uL (0.90-5.00); Lymphocytes % (A) 3.9 %; MCH 25.6 pg (27.0-32.0); MCHC 29.9 g/dL (32.0-37.0); MCV 85.7 FL (80.0-97.0); Mean Platelet Volume 11.6 FL (9.5-12.2); Monocytes # (A) 0.09 X 10*3/uL (0.20-1.00); Monocytes % (A) 3.9 %; NRBC Per 100 WBC 0 X 10*3/uL (0.00-0.01); Neutrophils # (A) 2.07 X 10*3/uL (1.80-7.70); Neutrophils % (A) 90.9 %; Platelet Count 67 X 10*3/uL (140-440); RBC 3.28 X 10*6/uL (4.40-5.60); RDW 17.5 % (11.5-14.5); WBC 2.28 X 10*3/uL (4.50-10.00)
--- NOTE | 2024-09-24 11:00 | P.PN ---
Subjective Patient is seen in follow-up for acute kidney injury on chronic kidney disease. Renal function slightly better. On IV Lasix. Also on metolazone. Vital signs are stable. General: No acute distress. HEENT: Head exam is unremarkable. On 4 L nasal cannula. LUNGS: No audible rhonchi or wheezes. HEART: Rate and Rhythm are regular. ABDOMEN: Nontender. EXTREMITITES: 2+ edema. Objective - Vital Signs Vital signs: Vital Signs Temp 97.7 F 09/24/24 07:45 Pulse 84 09/24/24 10:09 Resp 19 09/24/24 07:45 BP 145/82 09/24/24 07:45 Pulse Ox 98 09/24/24 07:45 FiO2 Intake & Output 09/23/24 09/24/24 09/24/24 18:59 06:59 18:59 Intake Total 1080 Output Total 450 1000 Balance -450 80 Weight 93.1 kg Intake: Oral 1080 Output: Urine 450 1000 Other: Voiding Method Urinal Urinal # Voids 4 # Bowel Movements 1 - Labs CBC & Chem 7: 09/24/24 06:31 09/24/24 06:31 Labs: Abnormal Lab Results - Last 24 Hours (Table) 09/23/24 09/23/24 09/23/24 Range/Units 11:09 16:04 22:03 WBC (4.50-10.00) X 10*3/uL RBC (4.40-5.60) X 10*6/uL Hgb (13.0-17.0) g/dL Hct (39.6-50.0) % MCH (27.0-32.0) pg MCHC (32.0-37.0) g/dL RDW (11.5-14.5) % Plt Count (140-440) X 10*3/uL Lymphocytes # (0.90-5.00) X 10*3/uL Monocytes # (0.20-1.00) X 10*3/uL Eosinophils # (0.04-0.35) X 10*3/uL Anion Gap (4.00-12.00) mmol/L BUN (9.0-27.0) mg/dL Creatinine (0.6-1.5) mg/dL Est GFR (CKD-EPI) (>=60) BUN/Creatinine Ratio (12.00-20.00) Ratio POC Glucose (mg/dL) 115 H 166 H 181 H (70-110) mg/dL Calcium (8.7-10.3) mg/dL 09/24/24 09/24/24 09/24/24 Range/Units 06:03 06:31 06:31 WBC 2.28 L (4.50-10.00) X 10*3/uL RBC 3.28 L (4.40-5.60) X 10*6/uL Hgb 8.4 L (13.0-17.0) g/dL Hct 28.1 L (39.6-50.0) % MCH 25.6 L (27.0-32.0) pg MCHC 29.9 L (32.0-37.0) g/dL RDW 17.5 H (11.5-14.5) % Plt Count 67 L (140-440) X 10*3/uL Lymphocytes # 0.09 L (0.90-5.00) X 10*3/uL Monocytes # 0.09 L (0.20-1.00) X 10*3/uL Eosinophils # 0.01 L (0.04-0.35) X 10*3/uL Anion Gap 12.30 H (4.00-12.00) mmol/L BUN 89.8 H (9.0-27.0) mg/dL Creatinine 2.4 H (0.6-1.5) mg/dL Est GFR (CKD-EPI) 28 L (>=60) BUN/Creatinine Ratio 37.42 H (12.00-20.00) Ratio POC Glucose (mg/dL) 117 H (70-110) mg/dL Calcium 8.1 L (8.7-10.3) mg/dL Assessment and Plan Plan: Assessment: 1. Acute kidney injury secondary to ATN secondary to severe sepsis. Also component of cardiorenal syndrome. Renal function slightly improved. No hydronephrosis noted on ultrasound done in August 2024. UA with trace protein. Elevated BUN partially due to steroids. 2. Chronic kidney disease stage IV with baseline creatinine near 2.3 secondary to nephrosclerosis. 3. Acute on chronic systolic CHF ejection fraction of 35 to 40%. 4. Volume overload. Improving with diuresis. 5. History of hepatitis C and hepatocellular carcinoma. 6. C. difficile colitis maintained on oral vancomycin. Plan: Maintain IV Lasix. Increase dose to 60 mg. Maintain metolazone 5 mg once daily. Maintain low-salt diet. Maintain 1500 cc fluid restriction. Continue to monitor renal function and urine output. Prognosis guarded.
[2024-09-24 11:46] LABS: Glucose,Whole Blood 117 mg/dL (70-110)
--- NOTE | 2024-09-24 13:09 | P.PN ---
Subjective Progress Note Date: 09/24/24 This is a 74-year-old male patient with multiple medical problems and coming into the department having chest discomfort, cough, congestion and worsening shortness of breath. He is chronically debilitated and is willing more weak than usual. Denies having any fever. No hemoptysis. No pleurisy. Noted, the patient was hospitalized few days back and the patient was discharged home and his condition decompensated over the past 24 hours. The patient had a follow-up chest x-ray in the emergency department that showed development of new bilateral lower lobe pulmonary filtrates consistent with pneumonia. The patient was hypoxic and his oxygen requirements progressively got worse and is currently on 15 L of oxygen by nasal cannula with a pulse ox of 93%. He typically uses oxygen between 2 and 3 L. He remains in chronic atrial fibrillation. The white cell count is 8.9 with a hemoglobin 11.9 and a platelet count of 142. BUN is 64 with a creatinine of 2.7 and sodium levels at 138. Potassium level is at 4.4. Initial lactic acid level was at 3.1 down to 1.6. Procalcitonin level is pending. proBNP level is 26,100. Troponins at 0.03. Rest of the liver function tests are normal. The viral screen is negative. Based on his clinical presentation, I ordered a noncontrast CAT scan of the chest and the CAT scan showed cardiomegaly, splenomegaly, small bilateral pleural effusion, bibasilar pulmonary consolidation in addition to consolidation of the right middle lobe and the findings are quite suspicious for an underlying pneumonia. The patient accordingly was started on Zosyn and is also on Zithromax. On a separate note, the patient was noted to be hypotensive. He was started on low-dose norepinephrine for hemodynamic support. The patient is currently on norepinephrine running at 0.05 mcg/kg/min. Awake and alert and communicating His comorbidities are multiple and the patient is known to have COPD, chronic stage III kidney disease, congestion heart failure with a ejection fraction of 35 to 40% and the patient has moderate degree of aortic stenosis and mild pulmonary hypertension, chronic A-fib, hypertension, history of pancytopenia as the patient has previous history of hepatitis C and history of hepatocellular carcinoma and he also has previous history of coronary artery disease with previous GA and hypertension and the patient has a permanent pacemaker in place. Patient was seen today on 09/14/2024, patient remains in the ICU, on 3 L nasal cannula, he has significant pneumonia bilaterally possibly aspiration related or could be hospital-acquired pneumonia. In addition the patient has hemoptysis, I went ahead and held his Eliquis today. Patient is on antibiotics in the form of Zosyn and Zithromax, he is also on bronchodilators, and he is supposed to foll ow-up at [facility] on Saturday for his severe aortic stenosis, however looking at the overall picture, patient is not going to be discharged before Saturday considering the extensiveness of his pneumonia. Hence I will ask the admitting physician to consider transferring the patient to [facility] if possible. In the meantime patient is on antibiotics in the form of Zithromax and Zosyn, and he is on 3 L nasal cannula, not in distress. WBC count is 1.45 hemoglobin 9.2 electrolytes are normal BUN is 75 creatinine 3.36. Seems to be getting worse. Urine Legionella antigen is negative. Patient was seen today on 09/30, on 3 L nasal cannula, remains in the ICU, complaining of difficulty swallowing, patient continues to have bibasilar consolidation, chest x-ray showing slight improvement clinically the patient is about the same but he seems to be more bothered with his difficulty swallowing. Patient remains on antibiotics in the form of Zosyn and Zithromax, he is on b ronchodilators, he does have history of severe aortic stenosis, and he supposedly has an appointment with cardiology at [facility] tomorrow. But this is most likely going to be canceled and he will have to set up another appointment on outpatient basis. WBC count today is 1.59 hemoglobin is 8.7 electrolytes are normal BUN is 85 creatinine 3.33. Again his chest x-ray showed slight improvement in his bilateral pneumonia but definitely not resolved. The patient is seen today September 16, 2024 in follow-up on the selective care unit. He is awake and alert in no acute distress. Sitting up in a chair at the bedside. Maintaining O2 saturations in the 90s on 4 L/min per nasal cannula. H e has been afebrile. Hemodynamically stable. Continues with a loose congested cough. Barium swallow revealed no evidence of aspiration. Blood culture reveals no growth. Sputum culture revealed no growth. White count 2.4. Hemoglobin 9.1. Platelets 68,000. Sodium 140. Potassium 4.6. Bicarb 24. BUN 92. Creatinine 3.21. Glucose 127. He remains on DuoNeb inhalations, Symbicort, Solu-Medrol. Continued on Zosyn. The patient is seen today September 23, 2024 in follow-up on the regular medical floor. He is currently sitting up in a chair at the bedside. Awake and alert in no acute distress. He has been slow to progress. He remains on oxygen at 4 L/min per nasal cannula with O2 saturations in the upper 90s. He is afebrile. Hemodynamically stable. Today's chest x-ray shows improved aeration of the lungs with persistent multifocal airspace opacities. Blood culture revealed no growth. Sputum culture revealed no growth x 2. White count 1.8. Hemoglobin 8.3. Platelets 78,000. Sodium 138. Potassium 4.5. Bicarb 26. BUN 109. Creatinine 2.65. Glucose 107. He remains on DuoNeb inhalations, Symbicort, prednisone taper. Continued on oral vancomycin for C. difficile. Continued on IV and oral diuretics. The patient is seen today September 24, 2024 in follow-up on the regular medical floor. He is awake and alert in no acute distress. Sitting up in a chair at the bedside. He remains quite weak and debilitated. He is maintaining O2 saturations in the 90s on 4 L/min per nasal cannula. Has been afebrile. Hemodynamically stable. Less diarrhea. White count 2.2. Hemoglobin 8.4. Platelets 67,000. Sodium 143. Potassium 4.3. Bicarb 25. BUN 90. Creatinine 2.4. Glucose 94. He remains on DuoNeb inhalations, Symbicort, prednisone taper. Remains on oral vancomycin. His Lasix was increased to 60 mg every 12 hours per nephrology. Continued on Zaroxolyn. Objective - Vital Signs Vital signs: Vital Signs Temp 97.7 F 09/24/24 07:45 Pulse 80 09/24/24 13:01 Resp 19 09/24/24 07:45 BP 145/82 09/24/24 07:45 Pulse Ox 98 09/24/24 07:45 FiO2 Intake & Output 09/23/24 09/24/24 09/24/24 18:59 06:59 18:59 Intake Total 1080 118 Output Total 450 1000 350 Balance -450 80 -232 Weight 93.1 kg Intake: IV 118 0.9 KVO 118 Oral 1080 Output: Urine 450 1000 350 Other: Voiding Method Urinal Urinal # Voids 4 # Bowel Movements 1 - Exam GENERAL EXAM: Alert, weak, pleasant 74-year-old male, up in a chair, on 4 L nasal cannula, in no apparent distress. HEAD: Normocephalic. EYES: Normal reaction of pupils, equal size. NOSE: Clear with pink turbinates. THROAT: No erythema or exudates. NECK: No masses, no JVD. CHEST: No chest wall deformity. LUNGS: Equal air entry with bilateral scattered rhonchi, wheeze. CVS: S1 and S2 normal with no audible murmur, regular rhythm. ABDOMEN: No hepatosplenomegaly, normal bowel sounds, no guarding or rigidity. SPINE: No scoliosis or deformity SKIN: No rashes CENTRAL NERVOUS SYSTEM: No focal deficits, tone is normal in all 4 extremities. EXTREMITIES: There is 2+ peripheral edema. No clubbing, no cyanosis. Peripheral pulses are intact. - Labs CBC & Chem 7: 09/24/24 06:31 09/24/24 06:31 Labs: Abnormal Lab Results - Last 24 Hours (Table) 09/23/24 09/23/24 09/24/24 Range/Units 16:04 22:03 06:03 WBC (4.50-10.00) X 10*3/uL RBC (4.40-5.60) X 10*6/uL Hgb (13.0-17.0) g/dL Hct (39.6-50.0) % MCH (27.0-32.0) pg MCHC (32.0-37.0) g/dL RDW (11.5-14.5) % Plt Count (140-440) X 10*3/uL Lymphocytes # (0.90-5.00) X 10*3/uL Monocytes # (0.20-1.00) X 10*3/uL Eosinophils # (0.04-0.35) X 10*3/uL Anion Gap (4.00-12.00) mmol/L BUN (9.0-27.0) mg/dL Creatinine (0.6-1.5) mg/dL Est GFR (CKD-EPI) (>=60) BUN/Creatinine Ratio (12.00-20.00) Ratio POC Glucose (mg/dL) 166 H 181 H 117 H (70-110) mg/dL Calcium (8.7-10.3) mg/dL 09/24/24 09/24/24 09/24/24 Range/Units 06:31 06:31 11:44 WBC 2.28 L (4.50-10.00) X 10*3/uL RBC 3.28 L (4.40-5.60) X 10*6/uL Hgb 8.4 L (13.0-17.0) g/dL Hct 28.1 L (39.6-50.0) % MCH 25.6 L (27.0-32.0) pg MCHC 29.9 L (32.0-37.0) g/dL RDW 17.5 H (11.5-14.5) % Plt Count 67 L (140-440) X 10*3/uL Lymphocytes # 0.09 L (0.90-5.00) X 10*3/uL Monocytes # 0.09 L (0.20-1.00) X 10*3/uL Eosinophils # 0.01 L (0.04-0.35) X 10*3/uL Anion Gap 12.30 H (4.00-12.00) mmol/L BUN 89.8 H (9.0-27.0) mg/dL Creatinine 2.4 H (0.6-1.5) mg/dL Est GFR (CKD-EPI) 28 L (>=60) BUN/Creatinine Ratio 37.42 H (12.00-20.00) Ratio POC Glucose (mg/dL) 117 H (70-110) mg/dL Calcium 8.1 L (8.7-10.3) mg/dL Assessment and Plan Assessment: Acute on chronic hypoxic respiratory failure secondary to an acute exacerbation of chronic systolic congestive heart failure Acute bilateral pneumonia could be aspiration pneumonia or could be hospital- acquired pneumonia Acute sepsis and hypotension with leukocytosis secondary to above Acute kidney injury secondary to ATN secondary to severe sepsis. 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 Number of minutes spent on the visit: 10 Dictation was produced using [employer] dictation software. Please excuse any grammatical, word or spelling errors.
[2024-09-24 16:46] LABS: Glucose,Whole Blood 173 mg/dL (70-110)
[2024-09-24 19:50] LABS: Glucose,Whole Blood 215 mg/dL (70-110)
[2024-09-24] MEDS: FUROSEMIDE 10 MG/ML 4 ML VIAL IV SCH (21:11)
--- NOTE | 2024-09-24 22:35 | P.PN ---
Subjective Progress Note Date: 09/23/24 Principal diagnosis: Reason for follow-up is C. difficile colitis Patient is a 74-year-old male with a past medical history significant for hypertension GA heart failure with COPD hepatocellular carcinoma/hepatitis C patient presenting to the hospital a on 09/13/2024 concerning for increasing shortness of breath along with A-fib with RVR there was a concern for pneumonia treated with Zosyn. On today's evaluation that is 09/23/2024,the patient denies any fever or any chills, patient is breathing slightly comfortably on 4 L current oxygen the patient denies chest pain or worsening cough, patient denies abdominal pain, no nausea vomiting, diarrhea has slowed down Patient white count is 1.89 creatinine is 2.65 Objective - Vital Signs Vital signs: Vital Signs Temp 98.4 F 09/23/24 13:36 Pulse 94 09/23/24 13:36 Resp 17 09/23/24 13:36 BP 118/79 09/23/24 13:36 Pulse Ox 98 09/23/24 13:36 FiO2 Intake & Output 09/22/24 09/23/24 09/23/24 18:59 06:59 18:59 Intake Total 70 10 Output Total 1025 400 450 Balance -955 390 -450 Weight 93.5 kg Intake: IV 20 10 Invasive Line 3 20 10 Oral 50 Output: Urine 1025 400 450 Other: Voiding Method Urinal Urinal Urinal # Bowel Movements 1 - Exam GENERAL DESCRIPTION: An elderly male up in the chair in no distress RESPIRATORY SYSTEM: Unlabored breathing , coarse breath sounds bilaterally HEART: S1 S2 regular rate and rhythm , ABDOMEN: Soft , no tenderness - Labs CBC & Chem 7: 09/24/24 06:31 09/24/24 06:31 Labs: Abnormal Lab Results - Last 24 Hours (Table) 09/22/24 09/22/24 09/23/24 Range/Units 16:32 20:34 03:17 WBC (4.50-10.00) 10*3/uL RBC (4.40-5.60) 10*6/uL Hgb (13.0-17.0) g/dL Hct (39.6-50.0) % MCH (27.0-32.0) pg MCHC (32.0-37.0) g/dL Plt Count (140-440) 10*3/uL Neutrophils # (1.80-7.70) 10*3/uL Lymphocytes # (0.90-5.00) 10*3/uL Monocytes # (0.20-1.00) 10*3/uL Eosinophils # (0.04-0.35) 10*3/uL BUN 109 H* (9-20) mg/dL Creatinine 2.65 H (0.66-1.25) mg/dL Glucose 107 H (74-99) mg/dL POC Glucose (mg/dL) 203 H 209 H (70-110) mg/dL Magnesium 2.6 H (1.6-2.3) mg/dL 09/23/24 09/23/24 09/23/24 Range/Units 03:17 11:09 16:04 WBC 1.89 L (4.50-10.00) 10*3/uL RBC 3.19 L (4.40-5.60) 10*6/uL Hgb 8.3 L (13.0-17.0) g/dL Hct 27.5 L (39.6-50.0) % MCH 26.0 L (27.0-32.0) pg MCHC 30.2 L (32.0-37.0) g/dL Plt Count 78 L (140-440) 10*3/uL Neutrophils # 1.67 L (1.80-7.70) 10*3/uL Lymphocytes # 0.10 L (0.90-5.00) 10*3/uL Monocytes # 0.09 L (0.20-1.00) 10*3/uL Eosinophils # 0.00 L (0.04-0.35) 10*3/uL BUN (9-20) mg/dL Creatinine (0.66-1.25) mg/dL Glucose (74-99) mg/dL POC Glucose (mg/dL) 115 H 166 H (70-110) mg/dL Magnesium (1.6-2.3) mg/dL Assessment and Plan (1) Pneumonia Current Visit: Yes Status: Acute Code(s): J18.9 - PNEUMONIA, UNSPECIFIED ORGANISM SNOMED Code(s): 253447988 (2) Leukopenia Current Visit: Yes Status: Acute Code(s): D72.819 - DECREASED WHITE BLOOD CELL COUNT, UNSPECIFIED SNOMED Code(s): 34598582 (3) C. difficile colitis Current Visit: Yes Status: Acute Code(s): A04.72 - ENTEROCOLITIS D/T CLOSTRIDIUM DIFFICILE, NOT SPCF RECUR SNOMED Code(s): 011284598 Plan: 1patient presented to hospital with increasing shortness of breath which is likely multifactorial possible combination of fluid overload which could be related to his cardiac/renal condition plus minus a component of pneumonia not entirely excluded 2sputum culture x 2 has been negative patient has received adequate Zosyn during this hospital stay now with developing diarrhea and C. difficile Zosyn has been discontinued 3patient is afebrile white count is low diarrhea slowing down patient to continue with oral vancomycin Dictation was produced using [employer] dictation software. please excuse any grammatical, word or spelling errors. Time with Patient: Less than 30
--- NOTE | 2024-09-24 22:37 | P.PN ---
Subjective Progress Note Date: 09/24/24 Principal diagnosis: Reason for follow-up is C. difficile colitis Patient is a 74-year-old male with a past medical history significant for hypertension MS heart failure with COPD hepatocellular carcinoma/hepatitis C patient presenting to the hospital a on 09/13/2024 concerning for increasing shortness of breath along with A-fib with RVR there was a concern for pneumonia treated with Zosyn. On today's evaluation that is 09/24/2024,the patient remains to be afebrile, patient is on 4 L nasal cannula supplemental oxygen and denies any worsening shortness of breath no chest pain or cough.Patient denies having any nausea or vomiting, no abdominal pain and diarrhea has slowed down. Patient verbalized 2.28 creatinine is 2.4 Objective - Vital Signs Vital signs: Vital Signs Temp 97.7 F 09/24/24 07:45 Pulse 80 09/24/24 13:01 Resp 19 09/24/24 07:45 BP 145/82 09/24/24 07:45 Pulse Ox 98 09/24/24 07:45 FiO2 Intake & Output 09/23/24 09/24/24 09/24/24 18:59 06:59 18:59 Intake Total 1080 118 Output Total 450 1000 350 Balance -450 80 -232 Weight 93.1 kg Intake: IV 118 0.9 KVO 118 Oral 1080 Output: Urine 450 1000 350 Other: Voiding Method Urinal Urinal # Voids 4 # Bowel Movements 1 - Exam GENERAL DESCRIPTION: An elderly male up in the chair in no distress RESPIRATORY SYSTEM: Unlabored breathing , coarse breath sounds bilaterally HEART: S1 S2 regular rate and rhythm , ABDOMEN: Soft , no tenderness - Labs CBC & Chem 7: 09/24/24 06:31 09/24/24 06:31 Labs: Abnormal Lab Results - Last 24 Hours (Table) 09/23/24 09/23/24 09/24/24 Range/Units 16:04 22:03 06:03 WBC (4.50-10.00) X 10*3/uL RBC (4.40-5.60) X 10*6/uL Hgb (13.0-17.0) g/dL Hct (39.6-50.0) % MCH (27.0-32.0) pg MCHC (32.0-37.0) g/dL RDW (11.5-14.5) % Plt Count (140-440) X 10*3/uL Lymphocytes # (0.90-5.00) X 10*3/uL Monocytes # (0.20-1.00) X 10*3/uL Eosinophils # (0.04-0.35) X 10*3/uL Anion Gap (4.00-12.00) mmol/L BUN (9.0-27.0) mg/dL Creatinine (0.6-1.5) mg/dL Est GFR (CKD-EPI) (>=60) BUN/Creatinine Ratio (12.00-20.00) Ratio POC Glucose (mg/dL) 166 H 181 H 117 H (70-110) mg/dL Calcium (8.7-10.3) mg/dL 09/24/24 09/24/24 09/24/24 Range/Units 06:31 06:31 11:44 WBC 2.28 L (4.50-10.00) X 10*3/uL RBC 3.28 L (4.40-5.60) X 10*6/uL Hgb 8.4 L (13.0-17.0) g/dL Hct 28.1 L (39.6-50.0) % MCH 25.6 L (27.0-32.0) pg MCHC 29.9 L (32.0-37.0) g/dL RDW 17.5 H (11.5-14.5) % Plt Count 67 L (140-440) X 10*3/uL Lymphocytes # 0.09 L (0.90-5.00) X 10*3/uL Monocytes # 0.09 L (0.20-1.00) X 10*3/uL Eosinophils # 0.01 L (0.04-0.35) X 10*3/uL Anion Gap 12.30 H (4.00-12.00) mmol/L BUN 89.8 H (9.0-27.0) mg/dL Creatinine 2.4 H (0.6-1.5) mg/dL Est GFR (CKD-EPI) 28 L (>=60) BUN/Creatinine Ratio 37.42 H (12.00-20.00) Ratio POC Glucose (mg/dL) 117 H (70-110) mg/dL Calcium 8.1 L (8.7-10.3) mg/dL Assessment and Plan (1) Pneumonia Current Visit: Yes Status: Acute Code(s): J18.9 - PNEUMONIA, UNSPECIFIED ORGANISM SNOMED Code(s): 225162152 (2) Leukopenia Current Visit: Yes Status: Acute Code(s): D72.819 - DECREASED WHITE BLOOD CELL COUNT, UNSPECIFIED SNOMED Code(s): 25632115 (3) C. difficile colitis Current Visit: Yes Status: Acute Code(s): A04.72 - ENTEROCOLITIS D/T CLOSTRIDIUM DIFFICILE, NOT SPCF RECUR SNOMED Code(s): 975230963 Plan: 1patient presented to hospital with increasing shortness of breath which is likely multifactorial possible combination of fluid overload which could be related to his cardiac/renal condition and less likely pneumonia 2sputum culture x 2 has been negative patient has received adequate Zosyn during this hospital stay now with developing diarrhea and C. difficile Zosyn has been discontinued 3patient is afebrile white count is low but trending up, diarrhea slowing down patient currently being treated with oral vancomycin to finish a 10-day course of therapy for C. difficile colitis Dictation was produced using [employer] dictation software. please excuse any grammatical, word or spelling errors. Time with Patient: Less than 30
[2024-09-25 05:56] LABS: Glucose,Whole Blood 113 mg/dL (70-110)
--- NOTE | 2024-09-25 06:00 | P.PN ---
Subjective Progress Note Date: 09/24/24 74-year-old male, history of COPD, CAD/CHF, aortic stenosis, atrial fibrillation, hypertension, CKD, presents to ED with complaint chest discomfort and worsening shortness of breath. He is chronically debilitated and is willing more weak than usual; patient was hospitalized few days back and the patient was discharged home and his condition decompensated over the past 24 hours. The patient was hypoxic and his oxygen requirements progressively got worse and is currently on 15 L of oxygen by nasal cannula with a pulse ox of 93%. He typically uses oxygen between 2 and 3 L. Chest x-ray in the emergency department that showed development of new bilateral lower lobe pulmonary filtrates consistent with pneumonia. - The white cell count is 8.9 with a hemoglobin 11.9 and a platelet count of 142. BUN is 64 with a creatinine of 2.7 and sodium levels at 138. Potassium level is at 4.4. Initial lactic acid level was at 3.1 down to 1.6. Procalcitonin level is pending. proBNP level is 26,100. Troponins at 0.03. Rest of the liver function tests are normal. The viral screen is negative. -CAT scan showed cardiomegaly, splenomegaly, small bilateral pleural effusion, bibasilar pulmonary consolidation in addition to consolidation of the right middle lobe and the findings are quite suspicious for an underlying pneumonia. The patient was started on Zosyn and is also on Zithromax per pulmonary recommendation. While in ED, the patient was noted to be hypotensive. He was started on low-dose norepinephrine for hemodynamic support. The patient is currently on norepinephrine running at 0.05 mcg/kg/min. Awake and alert and communicating 09/14/2024 Patient is seen in follow-up today in the ICU with pulmonary and cardiology following for pneumonia and CHF exacerbation. Patient currently on 3 L via nasal continues with extensive pneumonia maintained on Zithromax. Ceftriaxone was discontinued per pulmonary and started on Zosyn. Preliminary blood cultures are no growth and sputum culture is ordered and pending at this time. Patient's kidney functions are elevated above 3 creatinine and will consult nephrology and appreciate input and recommendations. Pulmonary sharepoint net developer recommending possible transfer for tertiary treatment as patient was scheduled to undergo cardiac intervention at [facility] and feels he would benefit from being evaluated by them continuing care for his surgical procedure. Pretesting was to be done on this Saturday regarding CAT scans, blood work, further imaging. Given patient's extensive comorbidities and ongoing issues would recommend transfer to tertiary treatment. Will attempt to contact transfer center to discuss possible transfer. 09/15/2024. Patient is seen in follow-up today continues in the ICU although is a downgrade to 3 S. once a bed becomes available. Patient continues on 3 L with pulmonary and cardiology following maintained on antibiotics and sputum culture remains pending. Creatinine is 3.33 nephrology consulted and appreciate input and recommendations regarding acute on chronic kidney disease with LONDON. Patient is afebrile although reports continued shortness of breath. Patient was scheduled for outpatient testing for further surgical intervention with Jarrod Akers this Saturday although will likely need to be rescheduled. Patient does not appear to be a good surgical candidate and is high risk given significant comorbidities. Encouraged to increase activity as tolerated and patient is reporting significant difficulty and pain with swallowing. Speech is consulted and will likely undergo swallow study 09/16/2024 Patient is seen and evaluated in follow-up reporting he does not feel well and continues to be short of breath and reporting continued difficulty with swallowing although underwent modified barium swallow study and is recommended to continue on current regimen and soft foods. Patient white count remains low although slightly improved at 2.49, hemoglobin is stable at 9.1 although co ntinues to report coughing and spitting up blood at times. Eliquis remains on hold and platelet count is low at 68. Sodium 140 with a potassium of 4.6, BUN 92 and creatinine is 3.21. Nephrology following along with pulmonary, cardiology and continued on IV steroids along with breathing treatments. 09/17/2024 Patient is seen in follow-up today and continues to report shortness of breath and hemoptysis and not feeling much improved. Kidney functions are trending down with nephrology following and will continue current regimen. Hemoglobin remained stable at the increased hemoptysis. Sodium is 138 with a potassium of 4.5, BUN is 100 with a creatinine of 2.98. Blood sugars being monitored and will continue current regimen. Patient is maintained on IV steroids along with breathing treatments and antibiotics and will continue. Patient continues to have persistent cough with no real improvement is maintained on antibiotics and will consult infectious disease and appreciate input and recommendations. Patient continues have significant wheezing and IV steroids being advanced. 09/18/2024 Patient is seen and evaluated this morning continues to show no significant improvement with continued shortness of breath and cough. Lung sounds are congested and rhonchorous with wheezing noted. Abdomen is distended and patient is reporting no abdominal pain and is having bowel movements that are loose. Pulmonary following and patient does not appear to be a candidate for bronchoscopy. Infectious disease was consulted and appreciate input and recommendations regarding persistent with pneumonia with no improvements, preliminary cultures have been negative thus far. Patient is no code and this was addressed again as patient is discussing further with family about overall prognosis and does not want to end up on a mechanical ventilator and unsure if he wants to have a bronchoscopy or any further intervention. 09/19/2024 Patient is evaluated in follow-up on the cardiac unit. He continues to have rhonchorous lung sounds and also wheezing noted. Patient was found to be C. dif ficile positive. He has been started on oral vancomycin. IV zosyn to be discontinued. Hospice was discussed patient wants to see how he improves over the next few days. WBC 1.02, hgb 8.3, platelet count 61, BUN 103, creatinine 2.82. 09/20/2024 Patient is evaluated in follow-up in the cardiac floor. He remains on oral vancomycin due to the C. difficile colitis. He has had 1 bowel movement doc umented overnight. His labs today reveal a white blood cell count of 1.60, hemoglobin 8.6, platelet count of 70, BUN of 109 creatinine of 2.79. Had a chest x-ray this morning which reveals a similar right basilar airspace opacity and blunting of the costophrenic angle suggestive of pleural effusions. He is on 5 L of oxygen via nasal cannula. His sputum culture has been final and negative. No further hemoptysis reported. 09/21/2024 Patient is seen in follow-up today patient is continued on oral antibiotics in the form of vancomycin and patient continues to have some episodes of loose stools. Patient reports continued hemoptysis with no significant improvement in breathing and continues to report shortness of breath and maintained on 5 L. Per nursing staff there was discussion of possible hospice with a possible informational meeting being arranged. Patient to discuss further with family. 09/22/2024 Patient is seen in follow-up today currently sitting up in the chair reports continued diarrhea although somewhat improved maintained on vancomycin with infectious disease following. Repeat sputum cultures are negative. Discussion was had of endoscopy with pulmonary although patient had refused. Patient is becoming frustrated about continuing to be hospitalized and reports he had follow-up appointments out of [facility] cardiology as he has been following in the outpatient setting. Will attempt to discuss further with family regarding treatment plan moving forward. There was discussion of hospice which is currently on hold at this time. 09/23/2024 Patient is seen in follow-up today continues to report feelings of weakness and unwell. Patient reports continued diarrhea although is improving and per nursing staff has not had a bowel movement yet this morning and is continued on vancomycin for C. difficile with infectious disease following. Pulmonary following as well continued on treatments and will transition to Symbicort and continue with DuoNebs. Patient with generalized weakness recommend PT/OT therapy and sitting up in the chair more frequently. Patient is currently afebrile and denies any chest pain at this time. 09/24/2024 Patient is seen in follow-up today and appears to be clinically improving although reports he does not feel much better but would like to get out of here. Patient continues to report significant swelling of the lower extremities and is noted bilaterally and being given diuresis per nephrology. Creatinine remains elevated although stable at 2.4. Patient is continued on vancomycin orally with infectious disease following and will complete a 10-day course. Diarrhea is becoming less frequent although still reports loose stools. Patient is continued on 4 L of at 99% recommend to wean FiO2 as tolerated. Continue with breathing treatments with pulmonary following closely. Review of systems: Constitutional: No reports of fatigue, fever, or chills Cardiovascular: No reports of chest pain or palpitations Respiratory: reports of continued shortness of breath and persistent cough GI: No reports of nausea, vomiting, reports diarrhea, reports not much of an appetite, eating only soft foods , continued loose stools with some improvement and less frequent : No reports of dysuria or retention Neurovascular: reports of generalized weakness All medications have been reviewed Physical exam: Gen: This is a 74-year-old male who is awake, alert and oriented x 3, thin built, elderly appearing, ill-appearing HEENT: Head is atraumatic, normocephalic. Pupils equal, round. Sclerae is anicteric. NECK: Supple. No JVD. No lymphadenopathy. No thyromegaly. LUNGS: Diminished breath sounds bilaterally with coarse scattered rhonchi noted, bronchial congestion and faint crackles with expiratory wheezing. No intercostal retractions. HEART: S1, S2 are muffled ABDOMEN: Soft. Mildly distended and nontender, bowel sounds are present. No masses. No tenderness. EXTREMITIES: No pedal edema. No calf tenderness. bilateral lower extremity edema noted, 1+ pitting NEUROLOGICAL: Patient is awake, alert and oriented x3. Cranial nerves 2 through 12 are grossly intact. Diffusely weak Assessment: -Acute C. difficile colitis -Acute bilateral lower lobe pneumonia/likely gram-negative pneumonia of the right lung base, with sepsis present on admission, cultures thus far negative -Acute on chronic hypoxic respiratory failure; currently on 4 L of oxygen by nasal cannula -Acute hypotension; likely secondary to sepsis and the patient was on low-dose norepinephrine which has been discontinued. -Acute exacerbation COPD -Chronic systolic heart failure. Most recent EF revealing impaired LV function with an EF of 35 to 40% with moderate degree of aortic valve stenosis. Aortic dilatation at the level of the root also noted with moderate RV dilatation and mild pulmonary -hypertension history -Chronic atrial fibrillation, currently rate controlled, maintained on anticoagulation with Eliquis although being held for continued hemoptysis -Chronic stage III kidney disease, with acute LONDON, worsening kidney functions -History of implantation of permanent pacemaker. -History of hepatitis C/chronic liver disease/hepatocellular carcinoma. 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 -Hepatocellular carcinoma. GI prophylaxis DVT prophylaxis; SCDs/systemic anticoagulation DNR Plan: Patient continues to report shortness of breath with minimal exertion and continued cough with occasional bleeding noted. Eliquis is on hold. Pulmonary following discussing possible bronchoscopy although patient refused as he does not want to go on mechanical ventilation hemoglobin is stable at this time and will follow-up on repeat labs. Transfuse if 7 or less as patient reports he continues to have hemoptysis. nephrology following for acute on chronic kidney disease with worsening kidney functions. Creatinine slightly improved. Receiving gentle diuresis for continued lower extremity edema Patient is pancytopenic secondary to chronic liver disease also underlying infection with noted thrombocytopenia and leukopenia. This appears chronic as well, WBC trending up Follow-up on repeat labs and replace electrolytes per protocol Encouraged increased activity as tolerated. Patient having multiple episodes of loose stools and C. difficile was found to be positive is continued on oral vancomycin, less frequent but continues with loose stools, infectious disease following and will continue vancomycin to complete a 10-day course Discussion was had about the need for possible bronchoscopy although patient does not appear to be a stable candidate for intervention like this at this time and patient reports he is unsure if he wants to proceed with this as well. Patient is no code discuss further with family regarding overall treatment plan moving forward. There was discussion of possible hospice, possible hospice informational meeting although that appears to be on hold and will discuss further with family members Due to multiple complex medical issues, overall prognosis is extremely poor and guarded The impression and plan of care has been dictated by Marie Inman, Nurse Practitioner as directed. Dr. Golden MD I have performed a history and examination and MDM of this patient, discussed the same with the dictator, and agree with the dictator's assessment and plan as written ,documented as a scribe. Based on total visit time, I have performed more than 50% of the visit. Objective - Vital Signs Vital signs: Vital Signs Temp 98.3 F 09/25/24 01:15 Pulse 90 09/25/24 01:15 Resp 19 09/25/24 01:15 BP 132/73 09/25/24 01:15 Pulse Ox 99 09/25/24 01:15 FiO2 Intake & Output 09/24/24 09/24/24 09/25/24 06:59 18:59 06:59 Intake Total 1080 118 Output Total 1000 1625 1080 Balance 80 -1507 -1080 Weight 93.1 kg Intake: IV 118 0.9 KVO 118 Oral 1080 Output: Urine 1000 1625 1080 Other: Voiding Method Urinal Urinal Urinal # Voids 2 - Labs CBC & Chem 7: 09/24/24 06:31 09/24/24 06:31 Labs: Abnormal Lab Results - Last 24 Hours (Table) 09/24/24 09/24/24 09/24/24 Range/Units 06:03 06:31 06:31 WBC 2.28 L (4.50-10.00) X 10*3/uL RBC 3.28 L (4.40-5.60) X 10*6/uL Hgb 8.4 L (13.0-17.0) g/dL Hct 28.1 L (39.6-50.0) % MCH 25.6 L (27.0-32.0) pg MCHC 29.9 L (32.0-37.0) g/dL RDW 17.5 H (11.5-14.5) % Plt Count 67 L (140-440) X 10*3/uL Lymphocytes # 0.09 L (0.90-5.00) X 10*3/uL Monocytes # 0.09 L (0.20-1.00) X 10*3/uL Eosinophils # 0.01 L (0.04-0.35) X 10*3/uL Anion Gap 12.30 H (4.00-12.00) mmol/L BUN 89.8 H (9.0-27.0) mg/dL Creatinine 2.4 H (0.6-1.5) mg/dL Est GFR (CKD-EPI) 28 L (>=60) BUN/Creatinine Ratio 37.42 H (12.00-20.00) Ratio POC Glucose (mg/dL) 117 H (70-110) mg/dL Calcium 8.1 L (8.7-10.3) mg/dL 09/24/24 09/24/24 09/24/24 Range/Units 11:44 16:44 19:49 WBC (4.50-10.00) X 10*3/uL RBC (4.40-5.60) X 10*6/uL Hgb (13.0-17.0) g/dL Hct (39.6-50.0) % MCH (27.0-32.0) pg MCHC (32.0-37.0) g/dL RDW (11.5-14.5) % Plt Count (140-440) X 10*3/uL Lymphocytes # (0.90-5.00) X 10*3/uL Monocytes # (0.20-1.00) X 10*3/uL Eosinophils # (0.04-0.35) X 10*3/uL Anion Gap (4.00-12.00) mmol/L BUN (9.0-27.0) mg/dL Creatinine (0.6-1.5) mg/dL Est GFR (CKD-EPI) (>=60) BUN/Creatinine Ratio (12.00-20.00) Ratio POC Glucose (mg/dL) 117 H 173 H 215 H (70-110) mg/dL Calcium (8.7-10.3) mg/dL
[2024-09-25 08:38] LABS: BUN/Creat Ratio 35.28 Ratio (12.00-20.00); Blood Urea Nitrogen 88.2 mg/dL (9.0-27.0); Chloride 104 mmol/L (96-109); Glucose 101 mg/dL (70-110); Potassium 4.2 mmol/L (3.5-5.5); Sodium 143 mmol/L (135-145)
[2024-09-25 08:39] LABS: Calcium 8.3 mg/dL (8.7-10.3); Carbon Dioxide 26.9 mmol/L (21.6-31.8); Magnesium 2.5 mg/dL (1.5-2.4)
--- NOTE | 2024-09-25 10:40 | P.PN ---
Subjective Patient is seen in follow-up for acute kidney injury on chronic kidney disease. Renal function stable. On IV Lasix. Also on metolazone. Urine output 4.5 L in the last 24 hours. Weight down. Vital signs are stable. General: No acute distress. HEENT: Head exam is unremarkable. On 4 L nasal cannula. LUNGS: No audible rhonchi or wheezes. HEART: Rate and Rhythm are regular. ABDOMEN: Nontender. EXTREMITITES: 2+ edema. Objective - Vital Signs Vital signs: Vital Signs Temp 98.3 F 09/25/24 07:41 Pulse 78 09/25/24 09:55 Resp 20 09/25/24 07:41 BP 144/85 09/25/24 07:41 Pulse Ox 98 09/25/24 07:41 FiO2 Intake & Output 09/24/24 09/25/24 09/25/24 18:59 06:59 18:59 Intake Total 118 540 Output Total 1625 2900 Balance -1507 -2360 Weight 89.9 kg Intake: IV 118 0.9 KVO 118 Oral 540 Output: Urine 1625 2900 Other: Voiding Method Urinal Urinal Urinal # Voids 1 - Labs CBC & Chem 7: 09/24/24 06:31 09/25/24 04:53 Labs: Abnormal Lab Results - Last 24 Hours (Table) 09/24/24 09/24/24 09/24/24 Range/Units 06:31 11:44 16:44 WBC 2.28 L (4.50-10.00) X 10*3/uL RBC 3.28 L (4.40-5.60) X 10*6/uL Hgb 8.4 L (13.0-17.0) g/dL Hct 28.1 L (39.6-50.0) % MCH 25.6 L (27.0-32.0) pg MCHC 29.9 L (32.0-37.0) g/dL RDW 17.5 H (11.5-14.5) % Plt Count 67 L (140-440) X 10*3/uL Lymphocytes # 0.09 L (0.90-5.00) X 10*3/uL Monocytes # 0.09 L (0.20-1.00) X 10*3/uL Eosinophils # 0.01 L (0.04-0.35) X 10*3/uL Anion Gap (4.00-12.00) mmol/L BUN (9.0-27.0) mg/dL Creatinine (0.6-1.5) mg/dL Est GFR (CKD-EPI) (>=60) BUN/Creatinine Ratio (12.00-20.00) Ratio POC Glucose (mg/dL) 117 H 173 H (70-110) mg/dL Calcium (8.7-10.3) mg/dL Magnesium (1.5-2.4) mg/dL 09/24/24 09/25/24 09/25/24 Range/Units 19:49 04:53 05:52 WBC (4.50-10.00) X 10*3/uL RBC (4.40-5.60) X 10*6/uL Hgb (13.0-17.0) g/dL Hct (39.6-50.0) % MCH (27.0-32.0) pg MCHC (32.0-37.0) g/dL RDW (11.5-14.5) % Plt Count (140-440) X 10*3/uL Lymphocytes # (0.90-5.00) X 10*3/uL Monocytes # (0.20-1.00) X 10*3/uL Eosinophils # (0.04-0.35) X 10*3/uL Anion Gap 12.10 H (4.00-12.00) mmol/L BUN 88.2 H (9.0-27.0) mg/dL Creatinine 2.5 H (0.6-1.5) mg/dL Est GFR (CKD-EPI) 26 L (>=60) BUN/Creatinine Ratio 35.28 H (12.00-20.00) Ratio POC Glucose (mg/dL) 215 H 113 H (70-110) mg/dL Calcium 8.3 L (8.7-10.3) mg/dL Magnesium 2.5 H (1.5-2.4) mg/dL Assessment and Plan Plan: Assessment: 1. Acute kidney injury secondary to ATN secondary to severe sepsis. Also com ponent of cardiorenal syndrome. Renal function stable. No hydronephrosis noted on ultrasound done in August 2024. UA with trace protein. Elevated BUN partially due to steroids. 2. Chronic kidney disease stage IV with baseline creatinine near 2.3 secondary to nephrosclerosis. 3. Acute on chronic systolic CHF ejection fraction of 35 to 40%. 4. Volume overload. Improving with diuresis. 5. History of hepatitis C and hepatocellular carcinoma. 6. C. difficile colitis maintained on oral vancomycin. 7. Anemia of chronic kidney disease. Plan: Maintain IV Lasix. Maintain metolazone 5 mg once daily. Maintain low-salt diet. Maintain 1500 cc fluid restriction. Continue to monitor renal function and urine output. Check iron studies. Prognosis guarded.
[2024-09-25 11:39] LABS: Glucose,Whole Blood 126 mg/dL (70-110)
--- NOTE | 2024-09-25 13:20 | P.PN ---
Subjective Progress Note Date: 09/25/24 This is a 74-year-old male patient with multiple medical problems and coming into the department having chest discomfort, cough, congestion and worsening shortness of breath. He is chronically debilitated and is willing more weak than usual. Denies having any fever. No hemoptysis. No pleurisy. Noted, the patient was hospitalized few days back and the patient was discharged home and his condition decompensated over the past 24 hours. The patient had a follow-up chest x-ray in the emergency department that showed development of new bilateral lower lobe pulmonary filtrates consistent with pneumonia. The patient was hypoxic and his oxygen requirements progressively got worse and is currently on 15 L of oxygen by nasal cannula with a pulse ox of 93%. He typically uses oxygen between 2 and 3 L. He remains in chronic atrial fibrillation. The white cell count is 8.9 with a hemoglobin 11.9 and a platelet count of 142. BUN is 64 with a creatinine of 2.7 and sodium levels at 138. Potassium level is at 4.4. Initial lactic acid level was at 3.1 down to 1.6. Procalcitonin level is pending. proBNP level is 26,100. Troponins at 0.03. Rest of the liver function tests are normal. The viral screen is negative. Based on his clinical presentation, I ordered a noncontrast CAT scan of the chest and the CAT scan showed cardiomegaly, splenomegaly, small bilateral pleural effusion, bibasilar pulmonary consolidation in addition to consolidation of the right middle lobe and the findings are quite suspicious for an underlying pneumonia. The patient accordingly was started on Zosyn and is also on Zithromax. On a separate note, the patient was noted to be hypotensive. He was started on low-dose norepinephrine for hemodynamic support. The patient is currently on norepinephrine running at 0.05 mcg/kg/min. Awake and alert and communicating His comorbidities are multiple and the patient is known to have COPD, chronic stage III kidney disease, congestion heart failure with a ejection fraction of 35 to 40% and the patient has moderate degree of aortic stenosis and mild pulmonary hypertension, chronic A-fib, hypertension, history of pancytopenia as the patient has previous history of hepatitis C and history of hepatocellular carcinoma and he also has previous history of coronary artery disease with previous MT and hypertension and the patient has a permanent pacemaker in place. Patient was seen today on 09/14/2024, patient remains in the ICU, on 3 L nasal cannula, he has significant pneumonia bilaterally possibly aspiration related or could be hospital-acquired pneumonia. In addition the patient has hemoptysis, I went ahead and held his Eliquis today. Patient is on antibiotics in the form of Zosyn and Zithromax, he is also on bronchodilators, and he is supposed to foll ow-up at [facility] on Saturday for his severe aortic stenosis, however looking at the overall picture, patient is not going to be discharged before Saturday considering the extensiveness of his pneumonia. Hence I will ask the admitting physician to consider transferring the patient to [facility] if possible. In the meantime patient is on antibiotics in the form of Zithromax and Zosyn, and he is on 3 L nasal cannula, not in distress. WBC count is 1.45 hemoglobin 9.2 electrolytes are normal BUN is 75 creatinine 3.36. Seems to be getting worse. Urine Legionella antigen is negative. Patient was seen today on 09/30, on 3 L nasal cannula, remains in the ICU, complaining of difficulty swallowing, patient continues to have bibasilar consolidation, chest x-ray showing slight improvement clinically the patient is about the same but he seems to be more bothered with his difficulty swallowing. Patient remains on antibiotics in the form of Zosyn and Zithromax, he is on b ronchodilators, he does have history of severe aortic stenosis, and he supposedly has an appointment with cardiology at [facility] tomorrow. But this is most likely going to be canceled and he will have to set up another appointment on outpatient basis. WBC count today is 1.59 hemoglobin is 8.7 electrolytes are normal BUN is 85 creatinine 3.33. Again his chest x-ray showed slight improvement in his bilateral pneumonia but definitely not resolved. The patient is seen today September 16, 2024 in follow-up on the selective care unit. He is awake and alert in no acute distress. Sitting up in a chair at the bedside. Maintaining O2 saturations in the 90s on 4 L/min per nasal cannula. H e has been afebrile. Hemodynamically stable. Continues with a loose congested cough. Barium swallow revealed no evidence of aspiration. Blood culture reveals no growth. Sputum culture revealed no growth. White count 2.4. Hemoglobin 9.1. Platelets 68,000. Sodium 140. Potassium 4.6. Bicarb 24. BUN 92. Creatinine 3.21. Glucose 127. He remains on DuoNeb inhalations, Symbicort, Solu-Medrol. Continued on Zosyn. The patient is seen today September 23, 2024 in follow-up on the regular medical floor. He is currently sitting up in a chair at the bedside. Awake and alert in no acute distress. He has been slow to progress. He remains on oxygen at 4 L/min per nasal cannula with O2 saturations in the upper 90s. He is afebrile. Hemodynamically stable. Today's chest x-ray shows improved aeration of the lungs with persistent multifocal airspace opacities. Blood culture revealed no growth. Sputum culture revealed no growth x 2. White count 1.8. Hemoglobin 8.3. Platelets 78,000. Sodium 138. Potassium 4.5. Bicarb 26. BUN 109. Creatinine 2.65. Glucose 107. He remains on DuoNeb inhalations, Symbicort, prednisone taper. Continued on oral vancomycin for C. difficile. Continued on IV and oral diuretics. The patient is seen today September 24, 2024 in follow-up on the regular medical floor. He is awake and alert in no acute distress. Sitting up in a chair at the bedside. He remains quite weak and debilitated. He is maintaining O2 saturations in the 90s on 4 L/min per nasal cannula. Has been afebrile. Hemodynamically stable. Less diarrhea. White count 2.2. Hemoglobin 8.4. Platelets 67,000. Sodium 143. Potassium 4.3. Bicarb 25. BUN 90. Creatinine 2.4. Glucose 94. He remains on DuoNeb inhalations, Symbicort, prednisone taper. Remains on oral vancomycin. His Lasix was increased to 60 mg every 12 hours per nephrology. Continued on Zaroxolyn. The patient is seen today September 25, 2024 in follow-up on the regular medical floor. He is currently sitting up in a chair at the bedside. Awake and alert in no acute distress. He is maintaining O2 saturations in the 90s on 4 L/min per nasal cannula. He remains afebrile. Hemodynamically stable. Blood culture revealed no growth. Sputum culture revealed no growth x 2. He remains on DuoNeb inhalations, Symbicort, prednisone taper. He remains on oral vancomycin. Continued on IV diuretics per nephrology. Remains on Zaroxolyn. Sodium 143. Potassium 4.2. Bicarb 27. BUN 88. Creatinine 2.5. Glucose 101. Objective - Vital Signs Vital signs: Vital Signs Temp 98.3 F 09/25/24 07:41 Pulse 78 09/25/24 13:01 Resp 20 09/25/24 07:41 BP 144/85 09/25/24 07:41 Pulse Ox 98 09/25/24 07:41 FiO2 Intake & Output 09/24/24 09/25/24 09/25/24 18:59 06:59 18:59 Intake Total 118 540 Output Total 1625 2900 Balance -1507 -2360 Weight 89.9 kg Intake: IV 118 0.9 KVO 118 Oral 540 Output: Urine 1625 2900 Other: Voiding Method Urinal Urinal Urinal # Voids 1 - Exam GENERAL EXAM: Alert, weak 74-year-old male, up in a chair, on 4 L nasal cannula, in no apparent distress. HEAD: Normocephalic. EYES: Normal reaction of pupils, equal size. NOSE: Clear with pink turbinates. THROAT: No erythema or exudates. NECK: No masses, no JVD. CHEST: No chest wall deformity. LUNGS: Equal air entry with bilateral scattered rhonchi, wheeze. CVS: S1 and S2 normal with no audible murmur, regular rhythm. ABDOMEN: No hepatosplenomegaly, normal bowel sounds, no guarding or rigidity. SPINE: No scoliosis or deformity SKIN: No rashes CENTRAL NERVOUS SYSTEM: No focal deficits, tone is normal in all 4 extremities. EXTREMITIES: There is 1-2+ peripheral edema. No clubbing, no cyanosis. Peripheral pulses are intact. - Labs CBC & Chem 7: 09/24/24 06:31 09/25/24 04:53 Labs: Abnormal Lab Results - Last 24 Hours (Table) 09/24/24 09/24/24 09/25/24 Range/Units 16:44 19:49 04:53 Anion Gap 12.10 H (4.00-12.00) mmol/L BUN 88.2 H (9.0-27.0) mg/dL Creatinine 2.5 H (0.6-1.5) mg/dL Est GFR (CKD-EPI) 26 L (>=60) BUN/Creatinine Ratio 35.28 H (12.00-20.00) Ratio POC Glucose (mg/dL) 173 H 215 H (70-110) mg/dL Calcium 8.3 L (8.7-10.3) mg/dL Magnesium 2.5 H (1.5-2.4) mg/dL 09/25/24 09/25/24 Range/Units 05:52 11:36 Anion Gap (4.00-12.00) mmol/L BUN (9.0-27.0) mg/dL Creatinine (0.6-1.5) mg/dL Est GFR (CKD-EPI) (>=60) BUN/Creatinine Ratio (12.00-20.00) Ratio POC Glucose (mg/dL) 113 H 126 H (70-110) mg/dL Calcium (8.7-10.3) mg/dL Magnesium (1.5-2.4) mg/dL Assessment and Plan Assessment: Acute on chronic hypoxic respiratory failure secondary to an acute exacerbation of chronic systolic congestive heart failure Acute bilateral pneumonia could be aspiration pneumonia or could be hospital-acq uired pneumonia, completed antibiotics. Follow-up chest x-ray revealed improved aeration of the lungs bilaterally Acute sepsis and hypotension with leukocytosis secondary to above, recovered Acute kidney injury secondary to ATN secondary to severe sepsis. Consider cardiorenal syndrome Chronic systolic congestive heart failure ejection fraction of 35 to 40% in addition patient has moderate severe aortic stenosis Chronic atrial fibrillation Severe underlying COPD FEV1 of 59% Chronic kidney disease stage IV secondary to nephrosclerosis History of pacemaker implantation History of hypertension History of hepatitis C Pancytopenia secondary to liver disease Parotid gland carcinoma History of hepatocellular carcinoma Plan: The patient was seen and evaluated Labs and medications reviewed Microbiology reviewed Continue DuoNeb inhalations Continue Symbicort Continue prednisone taper Remains on IV diuretics Remains on fluid restrictions Remains on low-salt diet Nephrology is following Stable on 4 L nasal cannula Titrate the FiO2 as tolerated Increase his activity as tolerated Overall prognosis is poor DNR CODE STATUS The patient is considering hospice Will most likely need at least subacute rehabilitation at discharge This patient was seen independently by the pulmonary nurse practitioner addressing pulmonary issues I have personally seen and examined the patient, performed the documentation and the assessment and plan as written. Number of minutes spent on the visit: 25 Dictation was produced using [employer] software. Please excuse any grammatical, word or spelling errors.
--- NOTE | 2024-09-25 15:43 | P.PN ---
Subjective Progress Note Date: 09/25/24 Principal diagnosis: Reason for follow-up is C. difficile colitis Patient is a 74-year-old male with a past medical history significant for hypertension [place] heart failure with COPD hepatocellular carcinoma/hepatitis C patient presenting to the hospital a on 09/13/2024 concerning for increasing shortness of breath along with A-fib with RVR there was a concern for pneumonia treated with Zosyn. On today's evaluation that is 09/25/2024, the patient continues to be afebrile, the patient is on r 4 L nasal oxygen and still complaining shortness of breath on exertion denies any chest pain or worsening cough some lower abdominal discomfort however diarrhea has slowed down. Patient did have a creatinine 2.5 no CBC was done today Objective - Vital Signs Vital signs: Vital Signs Temp 98.3 F 09/25/24 07:41 Pulse 58 L 09/25/24 13:58 Resp 18 09/25/24 13:58 BP 117/67 09/25/24 13:58 Pulse Ox 95 09/25/24 13:58 FiO2 Intake & Output 09/24/24 09/25/24 09/25/24 18:59 06:59 18:59 Intake Total 118 540 Output Total 1625 2900 Balance -1507 -2360 Weight 89.9 kg Intake: IV 118 0.9 KVO 118 Oral 540 Output: Urine 1625 2900 Other: Voiding Method Urinal Urinal Urinal # Voids 1 - Exam GENERAL DESCRIPTION: An elderly male up in the chair in no distress RESPIRATORY SYSTEM: Unlabored breathing , coarse breath sounds bilaterally HEART: S1 S2 regular rate and rhythm , ABDOMEN: Soft , no tenderness - Labs CBC & Chem 7: 09/24/24 06:31 09/25/24 04:53 Labs: Abnormal Lab Results - Last 24 Hours (Table) 09/24/24 09/24/24 09/25/24 Range/Units 16:44 19:49 04:53 Anion Gap 12.10 H (4.00-12.00) mmol/L BUN 88.2 H (9.0-27.0) mg/dL Creatinine 2.5 H (0.6-1.5) mg/dL Est GFR (CKD-EPI) 26 L (>=60) BUN/Creatinine Ratio 35.28 H (12.00-20.00) Ratio POC Glucose (mg/dL) 173 H 215 H (70-110) mg/dL Calcium 8.3 L (8.7-10.3) mg/dL Magnesium 2.5 H (1.5-2.4) mg/dL 09/25/24 09/25/24 Range/Units 05:52 11:36 Anion Gap (4.00-12.00) mmol/L BUN (9.0-27.0) mg/dL Creatinine (0.6-1.5) mg/dL Est GFR (CKD-EPI) (>=60) BUN/Creatinine Ratio (12.00-20.00) Ratio POC Glucose (mg/dL) 113 H 126 H (70-110) mg/dL Calcium (8.7-10.3) mg/dL Magnesium (1.5-2.4) mg/dL Assessment and Plan (1) Pneumonia Current Visit: Yes Status: Acute Code(s): J18.9 - PNEUMONIA, UNSPECIFIED ORGANISM SNOMED Code(s): 729285237 (2) Leukopenia Current Visit: Yes Status: Acute Code(s): D72.819 - DECREASED WHITE BLOOD CELL COUNT, UNSPECIFIED SNOMED Code(s): 74106455 (3) C. difficile colitis Current Visit: Yes Status: Acute Code(s): A04.72 - ENTEROCOLITIS D/T CLOSTRIDIUM DIFFICILE, NOT SPCF RECUR SNOMED Code(s): 042435921 Plan: 1patient presented to hospital with increasing shortness of breath which is likely multifactorial possible combination of fluid overload which could be related to his cardiac/renal condition and less likely pneumonia 2sputum culture x 2 has been negative patient has received adequate Zosyn during this hospital stay now with developing diarrhea and C. difficile Zosyn has been discontinued 3patient is afebrile noticed to have some worsening of his kidney function and the patient mentioned nephrology is considering starting dialysis 4patient did have improvement in his diarrhea to continue with the oral vancomycin to finish his course of therapy for C. difficile colitis Dictation was produced using [employer] dictation software. please excuse any grammatical, word or spelling errors. Time with Patient: Less than 30
[2024-09-25 16:35] LABS: Glucose,Whole Blood 198 mg/dL (70-110)
[2024-09-25 16:40] LABS: % Iron Saturation 13.33 (15.00-50.00)
[2024-09-25 21:01] LABS: Glucose,Whole Blood 226 mg/dL (70-110)
[2024-09-26 06:09] LABS: Glucose,Whole Blood 132 mg/dL (70-110)
[2024-09-26 08:35] LABS: African American GFR (CKD) 34 (>60 ml/min/1.73 sqM); Anion Gap 11 mmol/L; Blood Urea Nitrogen 98 mg/dL (9-20); Calcium 8.7 mg/dL (8.4-10.2); Carbon Dioxide 28 mmol/L (22-30); Chloride 97 mmol/L (98-107); Glucose 89 mg/dL (74-99); Magnesium 2.3 mg/dL (1.6-2.3); Non-African American GFR(CKD) 29 (>60 ml/min/1.73 sqM); Potassium 3.5 mmol/L (3.5-5.1); Sodium 136 mmol/L (137-145)
--- NOTE | 2024-09-26 10:46 | P.PN ---
Subjective Patient is seen in follow-up for acute kidney injury on chronic kidney disease. Renal function better. On IV Lasix. Also on metolazone. Nonoliguric. Feeling better. Vital signs are stable. General: No acute distress. HEENT: Head exam is unremarkable. On 4 L nasal cannula. LUNGS: No audible rhonchi or wheezes. HEART: Rate and Rhythm are regular. ABDOMEN: Nontender. EXTREMITITES: 2+ edema. Objective - Vital Signs Vital signs: Vital Signs Temp 97.1 F L 09/26/24 08:01 Pulse 80 09/26/24 09:12 Resp 15 09/26/24 08:01 BP 130/78 09/26/24 08:01 Pulse Ox 97 09/26/24 09:02 FiO2 Intake & Output 09/25/24 09/26/24 09/26/24 18:59 06:59 18:59 Intake Total 600 Output Total 1700 Balance 600 -1700 Intake: Oral 600 Output: Urine 1700 Other: Voiding Method Urinal # Voids 1 - Labs CBC & Chem 7: 09/24/24 06:31 09/26/24 06:14 Labs: Abnormal Lab Results - Last 24 Hours (Table) 09/25/24 09/25/24 09/25/24 Range/Units 04:53 11:36 16:34 Sodium (137-145) mmol/L Chloride (98-107) mmol/L BUN (9-20) mg/dL Creatinine (0.66-1.25) mg/dL POC Glucose (mg/dL) 126 H 198 H (70-110) mg/dL Iron 42 L (65-175) UG/DL % Saturation 13.33 L (15.00-50.00) 09/25/24 09/26/24 09/26/24 Range/Units 20:59 06:07 06:14 Sodium 136 L (137-145) mmol/L Chloride 97 L (98-107) mmol/L BUN 98 H (9-20) mg/dL Creatinine 2.16 H (0.66-1.25) mg/dL POC Glucose (mg/dL) 226 H 132 H (70-110) mg/dL Iron (65-175) UG/DL % Saturation (15.00-50.00) Assessment and Plan Plan: Assessment: 1. Acute kidney injury secondary to ATN secondary to severe sepsis. Also component of cardiorenal syndrome. Renal function better. Creatinine 2.86. No hydronephrosis noted on ultrasound done in August 2024. UA with trace protein. Elevated BUN partially due to steroids. 2. Chronic kidney disease stage IV with baseline creatinine near 2.3 secondary to nephrosclerosis. 3. Acute on chronic systolic CHF ejection fraction of 35 to 40%. 4. Volume overload. Improving with diuresis. 5. History of hepatitis C and hepatocellular carcinoma. 6. C. difficile colitis maintained on oral vancomycin. 7. Anemia of chronic kidney disease. Iron deficiency noted. Plan: Maintain IV Lasix. Maintain metolazone 5 mg once daily. Maintain low-salt diet. Maintain 1500 cc fluid restriction. Continue to monitor renal function and urine output. Add IV iron. Replace potassium. Prognosis guarded.
[2024-09-26 11:40] LABS: Glucose,Whole Blood 129 mg/dL (70-110)
[2024-09-26] MEDS: POTASSIUM CHLORIDE ER 20 MEQ TAB.ER PO STA (12:51)
--- NOTE | 2024-09-26 15:08 | P.PN ---
Subjective Progress Note Date: 09/26/24 Principal diagnosis: Reason for follow-up is C. difficile colitis Patient is a 74-year-old male with a past medical history significant for hypertension [place] heart failure with COPD hepatocellular carcinoma/hepatitis C patient presenting to the hospital a on 09/13/2024 concerning for increasing shortness of breath along with A-fib with RVR there was a concern for pneumonia treated with Zosyn. On today's evaluation that is 09/27/2023, patient did have a temperature of 96.6 F this afternoon and denies having any chills, patient is on 4 L nasal cannula oxygen and breathing slightly comfortably no chest pain or worsening cough, the patient did not have any nausea vomiting abdominal pain diarrhea slowed down. Patient did have a creatinine 2.16 Objective - Vital Signs Vital signs: Vital Signs Temp 96.6 F L 09/26/24 13:56 Pulse 77 09/26/24 13:56 Resp 17 09/26/24 13:56 BP 128/67 09/26/24 13:56 Pulse Ox 96 09/26/24 13:56 FiO2 Intake & Output 09/25/24 09/26/24 09/26/24 18:59 06:59 18:59 Intake Total 600 Output Total 1700 300 Balance 600 -1700 -300 Intake: Oral 600 Output: Urine 1700 300 Other: Voiding Method Urinal Urinal # Voids 1 - Exam GENERAL DESCRIPTION: An elderly male up in the chair in no distress RESPIRATORY SYSTEM: Unlabored breathing , coarse breath sounds bilaterally HEART: S1 S2 regular rate and rhythm , ABDOMEN: Soft , no tenderness - Labs CBC & Chem 7: 09/24/24 06:31 09/26/24 06:14 Labs: Abnormal Lab Results - Last 24 Hours (Table) 09/25/24 09/25/24 09/25/24 Range/Units 04:53 16:34 20:59 Sodium (137-145) mmol/L Chloride (98-107) mmol/L BUN (9-20) mg/dL Creatinine (0.66-1.25) mg/dL POC Glucose (mg/dL) 198 H 226 H (70-110) mg/dL Iron 42 L (65-175) UG/DL % Saturation 13.33 L (15.00-50.00) 06/21/25 06/21/25 06/21/25 Range/Units 06:07 06:14 11:38 Sodium 136 L (137-145) mmol/L Chloride 97 L (98-107) mmol/L BUN 98 H (9-20) mg/dL Creatinine 2.16 H (0.66-1.25) mg/dL POC Glucose (mg/dL) 132 H 129 H (70-110) mg/dL Iron (65-175) UG/DL % Saturation (15.00-50.00) Assessment and Plan (1) Pneumonia Current Visit: Yes Status: Acute Code(s): J18.9 - PNEUMONIA, UNSPECIFIED ORGANISM SNOMED Code(s): 011945566 (2) Leukopenia Current Visit: Yes Status: Acute Code(s): D72.819 - DECREASED WHITE BLOOD CELL COUNT, UNSPECIFIED SNOMED Code(s): 33102687 (3) C. difficile colitis Current Visit: Yes Status: Acute Code(s): A04.72 - ENTEROCOLITIS D/T CLOSTRIDIUM DIFFICILE, NOT SPCF RECUR SNOMED Code(s): 308114762 Plan: 1patient presented to hospital with increasing shortness of breath which is likely multifactorial possible combination of fluid overload which could be related to his cardiac/renal condition and less likely pneumonia 2sputum culture x 2 has been negative patient has received adequate Zosyn during this hospital stay now with developing diarrhea and C. difficile Zosyn has been discontinued 3patient is afebrile noticed to have some worsening of his kidney function and the patient mentioned nephrology is considering starting dialysis 4patient did have improvement in his diarrhea, oral vancomycin fell off because of automatic discontinuation we will restart the vancomycin to finish a total of 10-day course of therapy Dictation was produced using [employer] dictation software. please excuse any grammatical, word or spelling errors. Time with Patient: Less than 30
[2024-09-26 16:41] LABS: Glucose,Whole Blood 160 mg/dL (70-110)
[2024-09-26] MEDS: VANCOMYCIN 125 MG CAPSULE PO SCH (17:21)
[2024-09-26 19:52] LABS: Glucose,Whole Blood 196 mg/dL (70-110)
--- NOTE | 2024-09-26 21:02 | P.PN ---
Subjective Progress Note Date: 09/25/24 74-year-old male patient with multiple medical problems and coming into the department having chest discomfort, cough, congestion and worsening shortness of breath. He is chronically debilitated and is willing more weak than usual. Denies having any fever. No hemoptysis. No pleurisy. Noted, the patient was hospitalized few days back and the patient was discharged home and his condition decompensated over the past 24 hours. The patient had a follow-up chest x-ray in the emergency department that showed development of new bilateral lower lobe pulmonary filtrates consistent with pneumonia. The patient was hypoxic and his oxygen requirements progressively got worse and is currently on 15 L of oxygen by nasal cannula with a pulse ox of 93%. He typically uses oxygen between 2 and 3 L. He remains in chronic atrial fibrillation. The white cell count is 8.9 with a hemoglobin 11.9 and a platelet count of 142. BUN is 64 with a creatinine of 2.7 and sodium levels at 138. Potassium level is at 4.4. Initial lactic acid level was at 3.1 down to 1.6. Procalcitonin level is pending. proBNP l evel is 26,100. Troponins at 0.03. Rest of the liver function tests are normal. The viral screen is negative. Based on his clinical presentation, I ordered a noncontrast CAT scan of the chest and the CAT scan showed cardiomegaly, splenomegaly, small bilateral pleural effusion, bibasilar pulmonar y consolidation in addition to consolidation of the right middle lobe and the findings are quite suspicious for an underlying pneumonia. The patient accordingly was started on Zosyn and is also on Zithromax. On a separate note, the patient was noted to be hypotensive. He was started on low-dose n orepinephrine for hemodynamic support. The patient is currently on norepinephrine running at 0.05 mcg/kg/min. Awake and alert and communicating His comorbidities are multiple and the patient is known to have COPD, chronic stage III kidney disease, congestion heart failure with a ejection fraction of 35 to 40% and the patient has moderate degree of aortic stenosis and mild pulmonary hypertension, chronic A-fib, hypertension, history of pancytopenia as the patient has previous history of hepatitis C and history of hepatocellular carcinoma and he also has previous history of coronary artery disease with previous ME and hypertension and the patient has a permanent pacemaker in place. Objective - Vital Signs Vital signs: Vital Signs Temp 98.3 F 09/25/24 07:41 Pulse 78 09/25/24 09:55 Resp 20 09/25/24 07:41 BP 144/85 09/25/24 07:41 Pulse Ox 98 09/25/24 07:41 FiO2 Intake & Output 09/24/24 09/25/24 09/25/24 18:59 06:59 18:59 Intake Total 118 540 Output Total 1625 2900 Balance -1507 -2360 Weight 89.9 kg Intake: IV 118 0.9 KVO 118 Oral 540 Output: Urine 1625 2900 Other: Voiding Method Urinal Urinal Urinal # Voids 1 - Exam GENERAL EXAM: Alert, weak 74-year-old male, up in a chair, on 4 L nasal cannula, in no apparent distress. HEAD: Normocephalic. EYES: Normal reaction of pupils, equal size. THROAT: No erythema or exudates. NECK: No masses, no JVD. CHEST: No chest wall deformity. LUNGS: Equal air entry with bilateral scattered rhonchi, wheeze. CVS: S1 and S2 normal with no audible murmur, regular rhythm. ABDOMEN: No hepatosplenomegaly, normal bowel sounds, no guarding or rigidity. CENTRAL NERVOUS SYSTEM: No focal deficits, tone is normal in all 4 extremities. EXTREMITIES: There is 1-2+ peripheral edema. No clubbing, no cyanosis. Peripheral pulses are intact. - Labs CBC & Chem 7: 09/24/24 06:31 09/26/24 06:14 Labs: Abnormal Lab Results - Last 24 Hours (Table) 09/24/24 09/24/24 09/25/24 Range/Units 16:44 19:49 04:53 Anion Gap 12.10 H (4.00-12.00) mmol/L BUN 88.2 H (9.0-27.0) mg/dL Creatinine 2.5 H (0.6-1.5) mg/dL Est GFR (CKD-EPI) 26 L (>=60) BUN/Creatinine Ratio 35.28 H (12.00-20.00) Ratio POC Glucose (mg/dL) 173 H 215 H (70-110) mg/dL Calcium 8.3 L (8.7-10.3) mg/dL Magnesium 2.5 H (1.5-2.4) mg/dL 09/25/24 09/25/24 Range/Units 05:52 11:36 Anion Gap (4.00-12.00) mmol/L BUN (9.0-27.0) mg/dL Creatinine (0.6-1.5) mg/dL Est GFR (CKD-EPI) (>=60) BUN/Creatinine Ratio (12.00-20.00) Ratio POC Glucose (mg/dL) 113 H 126 H (70-110) mg/dL Calcium (8.7-10.3) mg/dL Magnesium (1.5-2.4) mg/dL Assessment and Plan Assessment: 1. Acute bilateral lower lobe pneumonia/hospital-acquired pneumonia - Chest x-ray and CT chest reveals extensive consolidation of the right lung base. - Patient has been placed on IV Zosyn and azithromycin - Blood cultures, sputum culture and Gram stain has been ordered - Monitor CBC, CRP and procalcitonin 2. Acute on chronic hypoxic respiratory failure; currently on 15 L of oxygen by nasal cannula - Will plan to titrate or wean as able 3. Acute hypotension; rule out underlying sepsis and the patient is currently on low-dose norepinephrine. 4. Acute exacerbation COPD; patient has been placed on IV Solu-Medrol; bronchodilator nebulizer treatments 4 times daily and as needed 4. Chronic systolic heart failure. - Last echocardiogram showed impaired LV function with an ejection fraction of 3 5 to 40%, with moderate degree of aortic valve stenosis. He also has mild aortic dilatation at the level of the root measuring 41 mm in size. He has moderate RV dilatation, mild pulmonary hypertension. -Will continue with home diuretic therapy 5. Chronic atrial fibrillation, controlled rate, maintained on anticoagulation with Eliquis - Patient remains rate controlled on amiodarone 200 mg twice daily; continue home dose of beta-blockers 6. Chronic stage III kidney disease; creatinine at baseline; monitor strict CHICO's, daily weights, renal function electrolyte; avoid nephrotoxins and hypo tension 7. History of implantation of permanent pacemaker. 8. History of hepatitis C/chronic liver disease/hepatocellular carcinoma. 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 Hepatocellular carcinoma. VTE prophylaxis; SCDs/systemic anticoagulation CODE STATUS; DNR
--- NOTE | 2024-09-26 21:04 | P.PN ---
Subjective Progress Note Date: 09/26/24 74-year-old male patient with multiple medical problems and coming into the department having chest discomfort, cough, congestion and worsening shortness of breath. He is chronically debilitated and is willing more weak than usual. Denies having any fever. No hemoptysis. No pleurisy. Noted, the patient was hospitalized few days back and the patient was discharged home and his condition decompensated over the past 24 hours. The patient had a follow-up chest x-ray in the emergency department that showed development of new bilateral lower lobe pulmonary filtrates consistent with pneumonia. The patient was hypoxic and his oxygen requirements progressively got worse and is currently on 15 L of oxygen by nasal cannula with a pulse ox of 93%. He typically uses oxygen between 2 and 3 L. He remains in chronic atrial fibrillation. The white cell count is 8.9 with a hemoglobin 11.9 and a platelet count of 142. BUN is 64 with a creatinine of 2.7 and sodium levels at 138. Potassium level is at 4.4. Initial lactic acid level was at 3.1 down to 1.6. Procalcitonin level is pending. proBNP l evel is 26,100. Troponins at 0.03. Rest of the liver function tests are normal. The viral screen is negative. Based on his clinical presentation, I ordered a noncontrast CAT scan of the chest and the CAT scan showed cardiomegaly, splenomegaly, small bilateral pleural effusion, bibasilar pulmonar y consolidation in addition to consolidation of the right middle lobe and the findings are quite suspicious for an underlying pneumonia. The patient accordingly was started on Zosyn and is also on Zithromax. On a separate note, the patient was noted to be hypotensive. He was started on low-dose n orepinephrine for hemodynamic support. The patient is currently on norepinephrine running at 0.05 mcg/kg/min. Awake and alert and communicating His comorbidities are multiple and the patient is known to have COPD, chronic stage III kidney disease, congestion heart failure with a ejection fraction of 35 to 40% and the patient has moderate degree of aortic stenosis and mild pulmonary hypertension, chronic A-fib, hypertension, history of pancytopenia as the patient has previous history of hepatitis C and history of hepatocellular carcinoma and he also has previous history of coronary artery disease with previous CO and hypertension and the patient has a permanent pacemaker in place. 09/27/2023 -patient seen and evaluated in room at bedside; vital signs are reviewed and patient did have a temperature of 96.6 F this afternoon and denies having any chills, patient is on 4 L nasal cannula oxygen and breathing slightly comfortably no chest pain or worsening cough, the patient did not have any nausea vomiting abdominal pain diarrhea slowed down. Blood work is reviewed and reveals sodium 136, potassium 3.5, BUN/creatinine of 98/2.16 patient presented to hospital with increasing shortness of breath which is likely multifactorial possible combination of fluid overload which could be related to his cardiac/renal condition and less likely pneumonia sputum culture x 2 has been negative patient has received adequate Zosyn during this hospital stay now with developing diarrhea and C. difficile Zosyn has been discontinued patient is afebrile noticed to have some worsening of his kidney function and the patient mentioned nephrology is considering starting dialysis patient did have improvement in his diarrhea, oral vancomycin fell off because of automatic discontinuation we will restart the vancomycin to finish a total of 10-day course of therapy Objective - Vital Signs Vital signs: Vital Signs Temp 97.1 F L 09/26/24 08:01 Pulse 80 09/26/24 09:12 Resp 15 09/26/24 08:01 BP 130/78 09/26/24 08:01 Pulse Ox 97 09/26/24 09:02 FiO2 Intake & Output 09/25/24 09/26/24 09/26/24 18:59 06:59 18:59 Intake Total 600 Output Total 1700 Balance 600 -1700 Intake: Oral 600 Output: Urine 1700 Other: Voiding Method Urinal # Voids 1 - Exam GENERAL EXAM: Alert, weak 74-year-old male, up in a chair, on 4 L nasal cannula, in no apparent distress. HEAD: Normocephalic. EYES: Normal reaction of pupils, equal size. THROAT: No erythema or exudates. NECK: No masses, no JVD. CHEST: No chest wall deformity. LUNGS: Equal air entry with bilateral scattered rhonchi, wheeze. CVS: S1 and S2 normal with no audible murmur, regular rhythm. ABDOMEN: No hepatosplenomegaly, normal bowel sounds, no guarding or rigidity. CENTRAL NERVOUS SYSTEM: No focal deficits, tone is normal in all 4 extremities. EXTREMITIES: There is 1-2+ peripheral edema. No clubbing, no cyanosis. Peripheral pulses are intact. - Labs CBC & Chem 7: 09/24/24 06:31 09/26/24 06:14 Labs: Abnormal Lab Results - Last 24 Hours (Table) 09/25/24 09/25/24 09/25/24 Range/Units 04:53 11:36 16:34 Sodium (137-145) mmol/L Chloride (98-107) mmol/L BUN (9-20) mg/dL Creatinine (0.66-1.25) mg/dL POC Glucose (mg/dL) 126 H 198 H (70-110) mg/dL Iron 42 L (65-175) UG/DL % Saturation 13.33 L (15.00-50.00) 09/25/24 09/26/24 09/26/24 Range/Units 20:59 06:07 06:14 Sodium 136 L (137-145) mmol/L Chloride 97 L (98-107) mmol/L BUN 98 H (9-20) mg/dL Creatinine 2.16 H (0.66-1.25) mg/dL POC Glucose (mg/dL) 226 H 132 H (70-110) mg/dL Iron (65-175) UG/DL % Saturation (15.00-50.00) Assessment and Plan Assessment: 1. Acute bilateral lower lobe pneumonia/hospital-acquired pneumonia - Chest x-ray and CT chest reveals extensive consolidation of the right lung base. - Patient has been placed on IV Zosyn and azithromycin - Blood cultures, sputum culture and Gram stain has been ordered - Monitor CBC, CRP and procalcitonin 2. Acute on chronic hypoxic respiratory failure; currently on 15 L of oxygen by nasal cannula - Will plan to titrate or wean as able 3. Acute hypotension; rule out underlying sepsis and the patient is currently on low-dose norepinephrine. 4. Acute exacerbation COPD; patient has been placed on IV Solu-Medrol; bronchodilator nebulizer treatments 4 times daily and as needed 4. Chronic systolic heart failure. - Last echocardiogram showed impaired LV function with an ejection fraction of 35 to 40%, with moderate degree of aortic valve stenosis. He also has mild aortic dilatation at the level of the root measuring 41 mm in size. He has moderate RV dilatation, mild pulmonary hypertension. -Will continue with home diuretic therapy 5. Chronic atrial fibrillation, controlled rate, maintained on anticoagulation with Eliquis - Patient remains rate controlled on amiodarone 200 mg twice daily; continue home dose of beta-blockers 6. Chronic stage III kidney disease; creatinine at baseline; monitor strict CHICO's, daily weights, renal function electrolyte; avoid nephrotoxins and hypotension 7. History of implantation of permanent pacemaker. 8. History of hepatitis C/chronic liver disease/hepatocellular carcinoma. 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 Hepatocellular carcinoma. VTE prophylaxis; SCDs/systemic anticoagulation CODE STATUS; DNR
[2024-09-27 06:09] LABS: Glucose,Whole Blood 106 mg/dL (70-110)
[2024-09-27 10:04] LABS: Basophils # (A) 0 X 10*3/uL (0.00-0.10); Basophils % (A) 0 %; Eosinophils # (A) 0 X 10*3/uL (0.04-0.35); Eosinophils % (A) 0 %; HCT 30.1 % (39.6-50.0); HGB 8.9 g/dL (13.0-17.0); Lymphocytes # (A) 0.14 X 10*3/uL (0.90-5.00); Lymphocytes % (A) 4.3 %; MCH 25.6 pg (27.0-32.0); MCHC 29.6 g/dL (32.0-37.0); MCV 86.7 FL (80.0-97.0); Mean Platelet Volume 11.4 FL (9.5-12.2); Monocytes # (A) 0.17 X 10*3/uL (0.20-1.00); Monocytes % (A) 5.2 %; NRBC Per 100 WBC 0 X 10*3/uL (0.00-0.01); Neutrophils # (A) 2.95 X 10*3/uL (1.80-7.70); Neutrophils % (A) 90.2 %; Platelet Count 82 X 10*3/uL (140-440); RBC 3.47 X 10*6/uL (4.40-5.60); WBC 3.27 X 10*3/uL (4.50-10.00)
[2024-09-27 10:12] LABS: BUN/Creat Ratio 36.83 Ratio (12.00-20.00); Blood Urea Nitrogen 88.4 mg/dL (9.0-27.0); Calcium 8.5 mg/dL (8.7-10.3); Carbon Dioxide 29.4 mmol/L (21.6-31.8); Chloride 98 mmol/L (96-109); Glucose 105 mg/dL (70-110); Potassium 4.1 mmol/L (3.5-5.5); Sodium 142 mmol/L (135-145)
--- NOTE | 2024-09-27 11:37 | P.PN ---
Subjective Patient is seen in follow-up for acute kidney injury on chronic kidney disease. Renal function fairly stable. On IV Lasix. Also on metolazone. Nonoliguric. Feeling better. Edema improving. Vital signs are stable. General: No acute distress. HEENT: Head exam is unremarkable. On 4 L nasal cannula. LUNGS: No audible rhonchi or wheezes. HEART: Rate and Rhythm are regular. ABDOMEN: Nontender. EXTREMITITES: 2+ edema. Objective - Vital Signs Vital signs: Vital Signs Temp 97.1 F L 09/27/24 08:16 Pulse 68 09/27/24 09:39 Resp 15 09/27/24 08:16 BP 133/74 09/27/24 08:16 Pulse Ox 96 09/27/24 09:29 FiO2 Intake & Output 09/26/24 09/27/24 09/27/24 18:59 06:59 18:59 Intake Total 900 Output Total 550 1500 Balance 350 -1500 Weight 86.3 kg Intake: Oral 900 Output: Urine 550 1500 Other: Voiding Method Urinal Urinal - Labs CBC & Chem 7: 09/27/24 04:23 09/27/24 04:23 Labs: Abnormal Lab Results - Last 24 Hours (Table) 09/26/24 09/26/24 09/26/24 Range/Units 11:38 16:40 19:51 WBC (4.50-10.00) X 10*3/uL RBC (4.40-5.60) X 10*6/uL Hgb (13.0-17.0) g/dL Hct (39.6-50.0) % MCH (27.0-32.0) pg MCHC (32.0-37.0) g/dL RDW (11.5-14.5) % Plt Count (140-440) X 10*3/uL Lymphocytes # (0.90-5.00) X 10*3/uL Monocytes # (0.20-1.00) X 10*3/uL Eosinophils # (0.04-0.35) X 10*3/uL Anion Gap (4.00-12.00) mmol/L BUN (9.0-27.0) mg/dL Creatinine (0.6-1.5) mg/dL Est GFR (CKD-EPI) (>=60) BUN/Creatinine Ratio (12.00-20.00) Ratio POC Glucose (mg/dL) 129 H 160 H 196 H (70-110) mg/dL Calcium (8.7-10.3) mg/dL 09/27/24 09/27/24 Range/Units 04:23 04:23 WBC 3.27 L (4.50-10.00) X 10*3/uL RBC 3.47 L (4.40-5.60) X 10*6/uL Hgb 8.9 L (13.0-17.0) g/dL Hct 30.1 L (39.6-50.0) % MCH 25.6 L (27.0-32.0) pg MCHC 29.6 L (32.0-37.0) g/dL RDW 18.0 H (11.5-14.5) % Plt Count 82 L (140-440) X 10*3/uL Lymphocytes # 0.14 L (0.90-5.00) X 10*3/uL Monocytes # 0.17 L (0.20-1.00) X 10*3/uL Eosinophils # 0 L (0.04-0.35) X 10*3/uL Anion Gap 14.60 H (4.00-12.00) mmol/L BUN 88.4 H (9.0-27.0) mg/dL Creatinine 2.4 H (0.6-1.5) mg/dL Est GFR (CKD-EPI) 28 L (>=60) BUN/Creatinine Ratio 36.83 H (12.00-20.00) Ratio POC Glucose (mg/dL) (70-110) mg/dL Calcium 8.5 L (8.7-10.3) mg/dL Assessment and Plan Plan: Assessment: 1. Acute kidney injury secondary to ATN secondary to severe sepsis. Also component of cardiorenal syndrome. Renal function fairly stable. Creatinine 2.4. No hydronephrosis noted on ultrasound done in August 2024. UA with trace protein. Elevated BUN partially due to steroids. 2. Chronic kidney disease stage IV with baseline creatinine near 2.3 secondary to nephrosclerosis. 3. Acute on chronic systolic CHF ejection fraction of 35 to 40%. 4. Volume overload. Improving with diuresis. 5. History of hepatitis C and hepatocellular carcinoma. 6. C. difficile colitis maintained on oral vancomycin. 7. Anemia of chronic kidney disease. Iron deficiency noted. Plan: Maintain IV Lasix. Maintain metolazone 5 mg once daily. Maintain low-salt diet. Maintain 1500 cc fluid restriction. Continue to monitor renal function and urine output. Add IV iron. Prognosis guarded.
[2024-09-27 11:54] LABS: Glucose,Whole Blood 126 mg/dL (70-110)
[2024-09-27] MEDS: SODIUM FERRIC GLUCONAT-SUCROSE 125 MG in SODIUM CHLORIDE 0.9% 100 ML IVPB SCH (13:32)
--- NOTE | 2024-09-27 15:49 | P.PN ---
Subjective Progress Note Date: 09/27/24 Principal diagnosis: Reason for follow-up is C. difficile colitis Patient is a 74-year-old male with a past medical history significant for hypertension IA heart failure with COPD hepatocellular carcinoma/hepatitis C patient presenting to the hospital a on 09/13/2024 concerning for increasing shortness of breath along with A-fib with RVR there was a concern for pneumonia treated with Zosyn. On today's evaluation that is 09/27/2024, Patient is afebrile patient is curr ently on 4 L nasal cannula oxygen and mention breathing slightly comfortably, the patient denies any chest pain or worsening cough, the patient denies any nausea vomiting did not have any abdominal pain and diarrhea has slowed down. Patient did have a white count of 3.27, creatinine is 2.4 Objective - Vital Signs Vital signs: Vital Signs Temp 97.1 F L 09/27/24 08:16 Pulse 80 09/27/24 15:43 Resp 15 09/27/24 08:16 BP 133/74 09/27/24 08:16 Pulse Ox 96 09/27/24 09:29 FiO2 Intake & Output 09/26/24 09/27/24 09/27/24 18:59 06:59 18:59 Intake Total 900 Output Total 550 1500 Balance 350 -1500 Weight 86.3 kg Intake: Oral 900 Output: Urine 550 1500 Other: Voiding Method Urinal Urinal - Exam GENERAL DESCRIPTION: An elderly male up in the chair in no distress RESPIRATORY SYSTEM: Unlabored breathing , coarse breath sounds bilaterally HEART: S1 S2 regular rate and rhythm , ABDOMEN: Soft , no tenderness 2+ edema feet - Labs CBC & Chem 7: 09/27/24 04:23 09/27/24 04:23 Labs: Abnormal Lab Results - Last 24 Hours (Table) 09/26/24 09/26/24 09/27/24 Range/Units 16:40 19:51 04:23 WBC 3.27 L (4.50-10.00) X 10*3/uL RBC 3.47 L (4.40-5.60) X 10*6/uL Hgb 8.9 L (13.0-17.0) g/dL Hct 30.1 L (39.6-50.0) % MCH 25.6 L (27.0-32.0) pg MCHC 29.6 L (32.0-37.0) g/dL RDW 18.0 H (11.5-14.5) % Plt Count 82 L (140-440) X 10*3/uL Lymphocytes # 0.14 L (0.90-5.00) X 10*3/uL Monocytes # 0.17 L (0.20-1.00) X 10*3/uL Eosinophils # 0 L (0.04-0.35) X 10*3/uL Anion Gap (4.00-12.00) mmol/L BUN (9.0-27.0) mg/dL Creatinine (0.6-1.5) mg/dL Est GFR (CKD-EPI) (>=60) BUN/Creatinine Ratio (12.00-20.00) Ratio POC Glucose (mg/dL) 160 H 196 H (70-110) mg/dL Calcium (8.7-10.3) mg/dL 09/27/24 09/27/24 Range/Units 04:23 11:53 WBC (4.50-10.00) X 10*3/uL RBC (4.40-5.60) X 10*6/uL Hgb (13.0-17.0) g/dL Hct (39.6-50.0) % MCH (27.0-32.0) pg MCHC (32.0-37.0) g/dL RDW (11.5-14.5) % Plt Count (140-440) X 10*3/uL Lymphocytes # (0.90-5.00) X 10*3/uL Monocytes # (0.20-1.00) X 10*3/uL Eosinophils # (0.04-0.35) X 10*3/uL Anion Gap 14.60 H (4.00-12.00) mmol/L BUN 88.4 H (9.0-27.0) mg/dL Creatinine 2.4 H (0.6-1.5) mg/dL Est GFR (CKD-EPI) 28 L (>=60) BUN/Creatinine Ratio 36.83 H (12.00-20.00) Ratio POC Glucose (mg/dL) 126 H (70-110) mg/dL Calcium 8.5 L (8.7-10.3) mg/dL Assessment and Plan (1) Pneumonia Current Visit: Yes Status: Acute Code(s): J18.9 - PNEUMONIA, UNSPECIFIED ORGANISM SNOMED Code(s): 421210951 (2) Leukopenia Current Visit: Yes Status: Acute Code(s): D72.819 - DECREASED WHITE BLOOD CELL COUNT, UNSPECIFIED SNOMED Code(s): 70941863 (3) C. difficile colitis Current Visit: Yes Status: Acute Code(s): A04.72 - ENTEROCOLITIS D/T CLOSTRIDIUM DIFFICILE, NOT SPCF RECUR SNOMED Code(s): 764989296 Plan: 1patient presented to hospital with increasing shortness of breath which is likely multifactorial possible combination of fluid overload which could be related to his cardiac/renal condition and less likely pneumonia 2sputum culture x 2 has been negative patient has received adequate Zosyn during this hospital stay now with developing diarrhea and C. difficile Zosyn has been discontinued 3patient is afebrile noticed to have some worsening of his kidney function and the patient mentioned nephrology is considering starting dialysis 4patient did have improvement in his diarrhea, patient will be treated with oral vancomycin to finish a 10-day course of therapy Dictation was produced using [employer] dictation software. please excuse any grammatical, word or spelling errors. Time with Patient: Less than 30
[2024-09-27 17:01] LABS: Glucose,Whole Blood 180 mg/dL (70-110)
[2024-09-27 21:21] LABS: Glucose,Whole Blood 198 mg/dL (70-110)
[2024-09-28 06:17] LABS: Glucose,Whole Blood 106 mg/dL (70-110)
--- NOTE | 2024-09-28 09:18 | P.PN ---
Subjective Progress Note Date: 09/27/24 74-year-old male patient with multiple medical problems and coming into the department having chest discomfort, cough, congestion and worsening shortness of breath. He is chronically debilitated and is willing more weak than usual. Denies having any fever. No hemoptysis. No pleurisy. Noted, the patient was hospitalized few days back and the patient was discharged home and his condition decompensated over the past 24 hours. The patient had a follow-up chest x-ray in the emergency department that showed development of new bilateral lower lobe pulmonary filtrates consistent with pneumonia. The patient was hypoxic and his oxygen requirements progressively got worse and is currently on 15 L of oxygen by nasal cannula with a pulse ox of 93%. He typically uses oxygen between 2 and 3 L. He remains in chronic atrial fibrillation. The white cell count is 8.9 with a hemoglobin 11.9 and a platelet count of 142. BUN is 64 with a creatinine of 2.7 and sodium levels at 138. Potassium level is at 4.4. Initial lactic acid level was at 3.1 down to 1.6. Procalcitonin level is pending. proBNP l evel is 26,100. Troponins at 0.03. Rest of the liver function tests are normal. The viral screen is negative. Based on his clinical presentation, I ordered a noncontrast CAT scan of the chest and the CAT scan showed cardiomegaly, splenomegaly, small bilateral pleural effusion, bibasilar pulmonar y consolidation in addition to consolidation of the right middle lobe and the findings are quite suspicious for an underlying pneumonia. The patient accordingly was started on Zosyn and is also on Zithromax. On a separate note, the patient was noted to be hypotensive. He was started on low-dose n orepinephrine for hemodynamic support. The patient is currently on norepinephrine running at 0.05 mcg/kg/min. Awake and alert and communicating His comorbidities are multiple and the patient is known to have COPD, chronic stage III kidney disease, congestion heart failure with a ejection fraction of 35 to 40% and the patient has moderate degree of aortic stenosis and mild pulmonary hypertension, chronic A-fib, hypertension, history of pancytopenia as the patient has previous history of hepatitis C and history of hepatocellular carcinoma and he also has previous history of coronary artery disease with previous PR and hypertension and the patient has a permanent pacemaker in place. 09/27/2023 -patient seen and evaluated in room at bedside; vital signs are reviewed and patient did have a temperature of 96.6 F this afternoon and denies having any chills, patient is on 4 L nasal cannula oxygen and breathing slightly comfortably no chest pain or worsening cough, the patient did not have any nausea vomiting abdominal pain diarrhea slowed down. Blood work is reviewed and reveals sodium 136, potassium 3.5, BUN/creatinine of 98/2.16 patient presented to hospital with increasing shortness of breath which is likely multifactorial possible combination of fluid overload which could be related to his cardiac/renal condition and less likely pneumonia sputum culture x 2 has been negative patient has received adequate Zosyn during this hospital stay now with developing diarrhea and C. difficile Zosyn has been discontinued patient is afebrile noticed to have some worsening of his kidney function and the patient mentioned nephrology is considering starting dialysis patient did have improvement in his diarrhea, oral vancomycin fell off because of automatic discontinuation we will restart the vancomycin to finish a total of 10-day course of therapy Patient is seen and evaluated in room at bedside; remains afebrile; currently on 4 L nasal cannula oxygen and mention breathing slightly comfortably, the patient denies any chest pain or worsening cough, the patient denies any nausea vomiting did not have any abdominal pain and diarrhea has slowed down. Patient did have a white count of 3.27, creatinine is 2.4 patient presented to hospital with increasing shortness of breath which is likely multifactorial possible combination of fluid overload which could be related to his cardiac/renal condition and less likely pneumonia sputum culture x 2 has been negative patient has received adequate Zosyn during this hospital stay now with developing diarrhea and C. difficile; Zosyn has been discontinued patient is afebrile noticed to have some worsening of his kidney function; nephrology recommending to maintain IV Lasix; continue with metolazone 5 mg daily, continue with low-salt diet and 1500cc fluid restriction. patient did have improvement in his diarrhea, patient will be treated with oral vancomycin to finish a 10-day course of therapy Objective - Vital Signs Vital signs: Vital Signs Temp 97.1 F L 09/27/24 08:16 Pulse 68 09/27/24 09:39 Resp 15 09/27/24 08:16 BP 133/74 09/27/24 08:16 Pulse Ox 96 09/27/24 09:29 FiO2 Intake & Output 09/26/24 09/27/24 09/27/24 18:59 06:59 18:59 Intake Total 900 Output Total 550 1500 Balance 350 -1500 Weight 86.3 kg Intake: Oral 900 Output: Urine 550 1500 Other: Voiding Method Urinal Urinal - Exam GENERAL EXAM: Alert, weak 74-year-old male, up in a chair, on 4 L nasal cannula, in no apparent distress. HEAD: Normocephalic. EYES: Normal reaction of pupils, equal size. THROAT: No erythema or exudates. NECK: No masses, no JVD. CHEST: No chest wall deformity. LUNGS: Equal air entry with bilateral scattered rhonchi, wheeze. CVS: S1 and S2 normal with no audible murmur, regular rhythm. ABDOMEN: No hepatosplenomegaly, normal bowel sounds, no guarding or rigidity. CENTRAL NERVOUS SYSTEM: No focal deficits, tone is normal in all 4 extremities. EXTREMITIES: There is 1-2+ peripheral edema. No clubbing, no cyanosis. Peripheral pulses are intact. - Labs CBC & Chem 7: 09/27/24 04:23 09/27/24 04:23 Labs: Abnormal Lab Results - Last 24 Hours (Table) 09/26/24 09/26/24 09/26/24 Range/Units 11:38 16:40 19:51 WBC (4.50-10.00) X 10*3/uL RBC (4.40-5.60) X 10*6/uL Hgb (13.0-17.0) g/dL Hct (39.6-50.0) % MCH (27.0-32.0) pg MCHC (32.0-37.0) g/dL RDW (11.5-14.5) % Plt Count (140-440) X 10*3/uL Lymphocytes # (0.90-5.00) X 10*3/uL Monocytes # (0.20-1.00) X 10*3/uL Eosinophils # (0.04-0.35) X 10*3/uL Anion Gap (4.00-12.00) mmol/L BUN (9.0-27.0) mg/dL Creatinine (0.6-1.5) mg/dL Est GFR (CKD-EPI) (>=60) BUN/Creatinine Ratio (12.00-20.00) Ratio POC Glucose (mg/dL) 129 H 160 H 196 H (70-110) mg/dL Calcium (8.7-10.3) mg/dL 09/27/24 09/27/24 Range/Units 04:23 04:23 WBC 3.27 L (4.50-10.00) X 10*3/uL RBC 3.47 L (4.40-5.60) X 10*6/uL Hgb 8.9 L (13.0-17.0) g/dL Hct 30.1 L (39.6-50.0) % MCH 25.6 L (27.0-32.0) pg MCHC 29.6 L (32.0-37.0) g/dL RDW 18.0 H (11.5-14.5) % Plt Count 82 L (140-440) X 10*3/uL Lymphocytes # 0.14 L (0.90-5.00) X 10*3/uL Monocytes # 0.17 L (0.20-1.00) X 10*3/uL Eosinophils # 0 L (0.04-0.35) X 10*3/uL Anion Gap 14.60 H (4.00-12.00) mmol/L BUN 88.4 H (9.0-27.0) mg/dL Creatinine 2.4 H (0.6-1.5) mg/dL Est GFR (CKD-EPI) 28 L (>=60) BUN/Creatinine Ratio 36.83 H (12.00-20.00) Ratio POC Glucose (mg/dL) (70-110) mg/dL Calcium 8.5 L (8.7-10.3) mg/dL Assessment and Plan Assessment: 1. Acute bilateral lower lobe pneumonia/hospital-acquired pneumonia - Chest x-ray and CT chest reveals extensive consolidation of the right lung base. - Patient has been placed on IV Zosyn and azithromycin - Blood cultures, sputum culture and Gram stain has been ordered - Monitor CBC, CRP and procalcitonin 2. Acute on chronic hypoxic respiratory failure; currently on 15 L of oxygen by nasal cannula - Will plan to titrate or wean as able 3. Acute hypotension; rule out underlying sepsis and the patient is currently on low-dose norepinephrine. 4. Acute exacerbation COPD; patient has been placed on IV Solu-Medrol; bronchodilator nebulizer treatments 4 times daily and as needed 4. Chronic systolic heart failure. - Last echocardiogram showed impaired LV function with an ejection fraction of 35 to 40%, with moderate degree of aortic valve stenosis. He also has mild aortic dilatation at the level of the root measuring 41 mm in size. He has moderate RV dilatation, mild pulmonary hypertension. -Will continue with home diuretic therapy 5. Chronic atrial fibrillation, controlled rate, maintained on anticoagulation with Eliquis - Patient remains rate controlled on amiodarone 200 mg twice daily; continue home dose of beta-blockers 6. Chronic stage III kidney disease; creatinine at baseline; monitor strict CHICO's, daily weights, renal function electrolyte; avoid nephrotoxins and hypotension 7. History of implantation of permanent pacemaker. 8. History of hepatitis C/chronic liver disease/hepatocellular carcinoma. 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 Hepatocellular carcinoma. VTE prophylaxis; SCDs/systemic anticoagulation CODE STATUS; DNR
[2024-09-28 10:22] LABS: BUN/Creat Ratio 35.04 Ratio (12.00-20.00); Blood Urea Nitrogen 87.6 mg/dL (9.0-27.0); Calcium 8.5 mg/dL (8.7-10.3); Carbon Dioxide 30.2 mmol/L (21.6-31.8); Chloride 93 mmol/L (96-109); Glucose 108 mg/dL (70-110); Potassium 3.5 mmol/L (3.5-5.5); Sodium 136 mmol/L (135-145)
[2024-09-28 12:23] LABS: Glucose,Whole Blood 115 mg/dL (70-110)
--- NOTE | 2024-09-28 13:38 | P.PN ---
Subjective 74-year-old male patient with multiple medical problems and coming into the department having chest discomfort, cough, congestion and worsening shortness of breath. He is chronically debilitated and is willing more weak than usual. Denies having any fever. No hemoptysis. No pleurisy. Noted, the patient was hospitalized few days back and the patient was discharged home and his condition decompensated over the past 24 hours. The patient had a follow-up chest x-ray in the emergency department that showed development of new bilateral lower lobe pulmonary filtrates consistent with pneumonia. The patient was hypoxic and his oxygen requirements progressively got worse and is currently on 15 L of oxygen by nasal cannula with a pulse ox of 93%. He typically uses oxygen between 2 and 3 L. He remains in chronic atrial fibrillation. The white cell count is 8.9 with a hemoglobin 11.9 and a platelet count of 142. BUN is 64 with a creatinine of 2.7 and sodium levels at 138. Potassium level is at 4.4. Initial lactic acid level was at 3.1 down to 1.6. Procalcitonin level is pending. proBNP level is 26,100. Troponins at 0.03. Rest of the liver function tests are normal. The viral screen is negative. Based on his clinical presentation, I ordered a noncontrast CAT scan of the chest and the CAT scan showed cardiomegaly, splenomegaly, small bilateral pleural effusion, bibasilar pulmonary consolidation in addition to consolidation of the right middle lobe and the findings are quite suspicious for an underlying pneumonia. The patient accordingly was started on Zosyn and is also on Zithromax. On a separate note, the patient was noted to be hypotensive. He was started on low-dose norepinephrine for hemodynamic support. The patient is currently on norepinephrine running at 0.05 mcg/kg/min. Awake and alert and communicating His comorbidities are multiple and the patient is known to have COPD, chronic stage III kidney disease, congestion heart failure with a ejection fraction of 35 to 40% and the patient has moderate degree of aortic stenosis and mild pulmonary hypertension, chronic A-fib, hypertension, history of pancytopenia as the patient has previous history of hepatitis C and history of hepatocellular carcinoma and he also has previous history of coronary artery disease with previous [place] and hypertension and the patient has a permanent pacemaker in place. 09/27/2023 -patient seen and evaluated in room at bedside; vital signs are reviewed and patient did have a temperature of 96.6 F this afternoon and denies having any chills, patient is on 4 L nasal cannula oxygen and breathing slightly comfortably no chest pain or worsening cough, the patient did not have any nausea vomiting abdominal pain diarrhea slowed down. Blood work is reviewed and reveals sodium 136, potassium 3.5, BUN/creatinine of 98/2.16 patient presented to hospital with increasing shortness of breath which is likely multifactorial possible combination of fluid overload which could be related to his cardiac/renal condition and less likely pneumonia sputum culture x 2 has been negative patient has received adequate Zosyn during this hospital stay now with developing diarrhea and C. difficile Zosyn has been discontinued patient is afebrile noticed to have some worsening of his kidney function and the patient mentioned nephrology is considering starting dialysis patient did have improvement in his diarrhea, oral vancomycin fell off because of automatic discontinuation we will restart the vancomycin to finish a total of 10-day course of therapy Patient is seen and evaluated in room at bedside; remains afebrile; currently on 4 L nasal cannula oxygen and mention breathing slightly comfortably, the patient denies any chest pain or worsening cough, the patient denies any nausea vomiting did not have any abdominal pain and diarrhea has slowed down. Patient did have a white count of 3.27, creatinine is 2.4 patient presented to hospital with increasing shortness of breath which is likely multifactorial possible combination of fluid overload which could be related to his cardiac/renal condition and less likely pneumonia sputum culture x 2 has been negative patient has received adequate Zosyn during this hospital stay now with developing diarrhea and C. difficile; Zosyn has been discontinued patient is afebrile noticed to have some worsening of his kidney function; nephrology recommending to maintain IV Lasix; continue with metolazone 5 mg daily, continue with low-salt diet and 1500cc fluid restriction. patient did have improvement in his diarrhea, patient will be treated with oral vancomycin to finish a 10-day course of therapy 09/28 This is a pleasant 74 years old male home presents initially to the intensive care unit when bilateral pneumonia and acute CHF exacerbation. Patient already finished his course of antibiotic and currently he is afebrile and doing well regarding his breathing. He is on 4 L oxygen via nasal cannula. At home he was using 2 to 4 L/min which is the same dose. No chest pain or dyspnea. He remains on Eliquis 2.5 mg at home because of A-fib this was stopped on admission on 09/14 for hemoptysis. I talked to the patient with risk benefits explained for him and he agrees to resume his Eliquis which is ordered. Also he is on IV Lasix 60 mg twice daily and metolazone 5 mg. Creatinine 2.5 nephrology team following closely with consistent follow-up and he has been cleared for discharge Is also on oral vancomycin for C. difficile colitis, today's last dose. Diarrhea is improved no abdominal pain Tolerating his diet well. He also acute kidney injury on CKD stage IV, creatinine stable as above. Patient looks like cleared for discharge by nephrology ID team. Pulmonary team also following. Cleared for discharge Discussed with piano case maker pending placement arranged possible in 24 to 48 hours Objective - Vital Signs Vital signs: Vital Signs Temp 97.1 F L 09/28/24 09:55 Pulse 88 09/28/24 11:01 Resp 18 09/28/24 07:35 BP 114/78 09/28/24 07:35 Pulse Ox 91 L 09/28/24 07:35 FiO2 Intake & Output 09/27/24 09/28/24 09/28/24 18:59 06:59 18:59 Intake Total 250 Output Total 500 2275 Balance - Weight 84.8 kg Intake: Oral 250 Output: Urine 500 2275 Other: Voiding Method Urinal Toilet Urinal - Exam -GENERAL: The patient is alert and oriented x3, not in any acute distress. Well developed, well nourished. Generally weak HEENT: Pupils are round and equally reacting to light. EOMI. No scleral icterus. No conjunctival pallor. Normocephalic, atraumatic. No pharyngeal erythema. No thyromegaly. CARDIOVASCULAR: S1 and S2 present. No murmurs, rubs, or gallops. PULMONARY: Chest is clear to auscultation, no wheezing , no crackles. ABDOMEN: Soft, nontender, nondistended, normoactive bowel sounds. No palpable organomegaly. MUSCULOSKELETAL: No joint swelling or deformity. EXTREMITIES: No cyanosis, clubbing, or pedal edema. NEUROLOGICAL: Gross neurological examination did not reveal any focal deficits. SKIN: No rashes. no petechiae. - Labs CBC & Chem 7: 09/27/24 04:23 09/28/24 03:04 Labs: Abnormal Lab Results - Last 24 Hours (Table) 09/27/24 09/27/24 09/27/24 Range/Units 11:53 17:00 21:20 Chloride (96-109) mmol/L Anion Gap (4.00-12.00) mmol/L BUN (9.0-27.0) mg/dL Creatinine (0.6-1.5) mg/dL Est GFR (CKD-EPI) (>=60) BUN/Creatinine Ratio (12.00-20.00) Ratio POC Glucose (mg/dL) 126 H 180 H 198 H (70-110) mg/dL Calcium (8.7-10.3) mg/dL 09/28/24 Range/Units 03:04 Chloride 93 L (96-109) mmol/L Anion Gap 12.80 H (4.00-12.00) mmol/L BUN 87.6 H (9.0-27.0) mg/dL Creatinine 2.5 H (0.6-1.5) mg/dL Est GFR (CKD-EPI) 26 L (>=60) BUN/Creatinine Ratio 35.04 H (12.00-20.00) Ratio POC Glucose (mg/dL) (70-110) mg/dL Calcium 8.5 L (8.7-10.3) mg/dL Assessment and Plan Assessment: 1. Acute bilateral lower lobe pneumonia/hospital-acquired pneumonia - Chest x-ray and CT chest reveals extensive consolidation of the right lung base. - was on IV Zosyn and azithromycin. Currently finished IV antibiotics - Blood cultures, sputum culture and Gram stain has been ordered -Continue his Eliquis 2. Acute on chronic hypoxic respiratory failure; currently on 15 L of oxygen by nasal cannula - Will plan to titrate or wean as able. Resolved and now at baseline - 3. Acute hypotension; rule out underlying sepsis and the patient is currently on low-dose norepinephrine. Resolved 4. Acute exacerbation COPD; patient has been placed on IV Solu-Medrol; bronchodilator nebulizer treatments 4 times daily and as needed 4. Chronic systolic heart failure. - Last echocardiogram showed impaired LV function with an ejection fraction of 35 to 40%, with moderate degree of aortic valve stenosis. He also has mild aortic dilatation at the level of the root measuring 41 mm in size. He has moderate RV dilatation, mild pulmonary hypertension. -Will continue with home diuretic therapy 5. Chronic atrial fibrillation, controlled rate, maintained on anticoagulation with Eliquis - Patient remains rate controlled on amiodarone 200 mg twice daily; continue home dose of beta-blockers 6. acute kidney injury on chronic stage III kidney disease; creatinine at baseline; monitor strict CHICO's, daily weights, renal function electrolyte; avoid nephrotoxins and hypotension Creatinine stable 2.5, nephrology on the case. For discharge. Continue with diuretics 7. History of implantation of permanent pacemaker. 8. History of hepatitis C/chronic liver disease/hepatocellular carcinoma. 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 Hepatocellular carcinoma. VTE prophylaxis; SCDs/systemic anticoagulation CODE STATUS; DNR
[2024-09-28] MEDS: APIXABAN 2.5 MG TABLET PO SCH (13:58)
[2024-09-28 17:13] LABS: Glucose,Whole Blood 174 mg/dL (70-110)
--- NOTE | 2024-09-28 18:27 | P.PN ---
Subjective Patient is seen for follow-up of chronic kidney disease and acute kidney injury. Currently on IV Lasix 60 mg every 12 hours Maintained on steroids for COPD exacerbation. Shortness of breath is stable Renal function is stable with serum creatinine at 2.5 mg/dL. Patient states that he is considering hospice. He does not want to pursue renal replacement therapy if indicated Objective - Vital Signs Vital signs: Vital Signs Temp 97.1 F L 09/28/24 09:55 Pulse 86 09/28/24 16:19 Resp 16 09/28/24 13:30 BP 116/74 09/28/24 13:30 Pulse Ox 91 L 09/28/24 13:30 FiO2 Intake & Output 09/27/24 09/28/24 09/28/24 18:59 06:59 18:59 Intake Total 250 940 Output Total 500 2275 1275 Balance -500 -2024 -335 Weight 84.8 kg Intake: Oral 250 940 Output: Urine 500 2275 1275 Other: Voiding Method Urinal Toilet Urinal - Exam Patient is awake, comfortable, no acute distress Examination of the heart S1 and S2 Examination of the lungs decreased breath sounds at the bases occasional wheezing heard Abdomen is soft Examination lower extremity shows 1+ edema, chronic [employer] exam grossly intact - Labs CBC & Chem 7: 09/27/24 04:23 09/28/24 03:04 Labs: Abnormal Lab Results - Last 24 Hours (Table) 09/27/24 09/28/24 09/28/24 Range/Units 21:20 03:04 12:21 Chloride 93 L (96-109) mmol/L Anion Gap 12.80 H (4.00-12.00) mmol/L BUN 87.6 H (9.0-27.0) mg/dL Creatinine 2.5 H (0.6-1.5) mg/dL Est GFR (CKD-EPI) 26 L (>=60) BUN/Creatinine Ratio 35.04 H (12.00-20.00) Ratio POC Glucose (mg/dL) 198 H 115 H (70-110) mg/dL Calcium 8.5 L (8.7-10.3) mg/dL 09/28/24 Range/Units 17:12 Chloride (96-109) mmol/L Anion Gap (4.00-12.00) mmol/L BUN (9.0-27.0) mg/dL Creatinine (0.6-1.5) mg/dL Est GFR (CKD-EPI) (>=60) BUN/Creatinine Ratio (12.00-20.00) Ratio POC Glucose (mg/dL) 174 H (70-110) mg/dL Calcium (8.7-10.3) mg/dL Assessment and Plan Assessment: 1. Acute kidney injury secondary to ATN from hypotension and sepsis. Nonoliguric. UA shows trace protein and small blood, otherwise unremarkable. Ultrasound on 09/02/2024 did not show any evidence of obstruction. Renal function is stable 2. Acute on chronic hypoxic respiratory failure secondary to pneumonia and COPD exacerbation 3. Sepsis from pneumonia 4. Chronic kidney disease stage IV with baseline creatinine about 2.3 mg/dL secondary to nephrosclerosis 4. Cardiomyopathy with EF of 35 to 40% 5. Chronic A-fib 6. History of hepatitis C 7. History of hepatocellular carcinoma 8. C. difficile colitis Plan: Continue with IV Lasix Continue with oral vancomycin Repeat labs in a.m. Avoid nephrotoxic agents
--- NOTE | 2024-09-28 20:00 | P.PN ---
Subjective Progress Note Date: 09/28/24 On 09/28/2024, the patient is being seen for a follow-up. In general, the patient is doing extremely poor. He is very weak and debilitated and he continues to have excessive edema in the lower extremities bilaterally. He continues to be short of breath even at rest. He is currently on IV Lasix 60 mg IV push every 12 hours. His oxygenation remained stable on 40 of oxygen by nasal cannula with a pulse ox of 91%. Chest x-ray from 09/23/2024 shows multifocal airspace opacities and blunting of the costophrenic angles consistent with pleural effusion. BUN is at 87 with a creatinine of 2.5. Electrolytes are stable with a serum bicarb of 30. Sodium levels at 136, potassium level is at 3.5, chloride is 93 with a bicarb of 30, and the patient is on oral vancomycin regarding C. difficile colitis. No nausea. No emesis. No significant abdominal pain. No other new complaints otherwise for now. Objective - Vital Signs Vital signs: Vital Signs Temp 97.1 F L 09/28/24 09:55 Pulse 82 09/28/24 13:30 Resp 16 09/28/24 13:30 BP 116/74 09/28/24 13:30 Pulse Ox 91 L 09/28/24 13:30 FiO2 Intake & Output 09/27/24 09/28/24 09/28/24 18:59 06:59 18:59 Intake Total 250 Output Total 500 2275 800 Balance - Weight 84.8 kg Intake: Oral 250 Output: Urine 500 2275 800 Other: Voiding Method Urinal Toilet Urinal - Exam GENERAL EXAM: Alert, weak 74-year-old male, up in a chair, on 4 L nasal cannula, in no apparent distress. HEAD: Normocephalic. EYES: Normal reaction of pupils, equal size. NOSE: Clear with pink turbinates. THROAT: No erythema or exudates. NECK: No masses, no JVD. CHEST: No chest wall deformity. LUNGS: Equal air entry with bilateral scattered rhonchi, wheeze. CVS: S1 and S2 normal with no audible murmur, regular rhythm. ABDOMEN: No hepatosplenomegaly, normal bowel sounds, no guarding or rigidity. SPINE: No scoliosis or deformity SKIN: No rashes CENTRAL NERVOUS SYSTEM: No focal deficits, tone is normal in all 4 extremities. EXTREMITIES: There is 1-2+ peripheral edema. No clubbing, no cyanosis. Peripheral pulses are intact. - Labs CBC & Chem 7: 09/27/24 04:23 09/28/24 03:04 Labs: Abnormal Lab Results - Last 24 Hours (Table) 09/27/24 09/27/24 09/28/24 Range/Units 17:00 21:20 03:04 Chloride 93 L (96-109) mmol/L Anion Gap 12.80 H (4.00-12.00) mmol/L BUN 87.6 H (9.0-27.0) mg/dL Creatinine 2.5 H (0.6-1.5) mg/dL Est GFR (CKD-EPI) 26 L (>=60) BUN/Creatinine Ratio 35.04 H (12.00-20.00) Ratio POC Glucose (mg/dL) 180 H 198 H (70-110) mg/dL Calcium 8.5 L (8.7-10.3) mg/dL 09/28/24 Range/Units 12:21 Chloride (96-109) mmol/L Anion Gap (4.00-12.00) mmol/L BUN (9.0-27.0) mg/dL Creatinine (0.6-1.5) mg/dL Est GFR (CKD-EPI) (>=60) BUN/Creatinine Ratio (12.00-20.00) Ratio POC Glucose (mg/dL) 115 H (70-110) mg/dL Calcium (8.7-10.3) mg/dL Assessment and Plan Plan: Acute on chronic hypoxic respiratory failure secondary to an acute exacerbation of chronic systolic congestive heart failure, currently stable on 4 L of oxygen by nasal cannula Acute on chronic kidney injury, renal function is stable and the patient continues to have volume overload and edema lower extremities maintained on IV Lasix. Chronic systolic congestive heart failure ejection fraction of 35 to 40% in addition patient has moderate severe aortic stenosis Chronic atrial fibrillation, rate controlled Severe underlying COPD FEV1 of 59% Chronic kidney disease stage IV secondary to nephrosclerosis History of pacemaker implantation History of hypertension History of hepatitis C Pancytopenia secondary to liver disease Parotid gland carcinoma History of hepatocellular carcinoma Plan: Patient is quite debilitated and his long-term prognosis is poor. Has had multiple hospitalization for decompensated heart failure, volume overload and acute on top of chronic hypoxic respiratory failure. Continue DuoNeb inhalations Continue Symbicort Continue prednisone taper Remains on IV diuretics, currently on Lasix 60 mg IV push every 12 hours Remains on fluid restrictions Remains on low-salt diet Nephrology is following Stable on 4 L nasal cannula Titrate the FiO2 as tolerated Increase his activity as tolerated Overall prognosis is poor DNR CODE STATUS The patient is considering hospice Will most likely need at least subacute rehabilitation at discharge
[2024-09-28 21:10] LABS: Glucose,Whole Blood 183 mg/dL (70-110)
[2024-09-29 06:15] LABS: Glucose,Whole Blood 99 mg/dL (70-110)
[2024-09-29 11:38] LABS: Glucose,Whole Blood 176 mg/dL (70-110)
--- NOTE | 2024-09-29 14:58 | P.PN ---
Subjective Progress Note Date: 09/28/24 Principal diagnosis: Reason for follow-up is C. difficile colitis Patient is a 74-year-old male with a past medical history significant for hypertension [place] heart failure with COPD hepatocellular carcinoma/hepatitis C patient presenting to the hospital a on 09/13/2024 concerning for increasing shortness of breath along with A-fib with RVR there was a concern for pneumonia treated with Zosyn. On today's evaluation that is 09/28/2024, patient has been afebrile, patient is breathing comfortably and is currently on 4 L nasal cannula oxygen, patient denies having any chest pain and cough, patient denies nausea vomiting diarrhea has slowed down. Patient did have a creatinine 2.5 no CBC was done today Objective - Vital Signs Vital signs: Vital Signs Temp 97.1 F L 09/28/24 09:55 Pulse 86 09/28/24 16:19 Resp 16 09/28/24 13:30 BP 116/74 09/28/24 13:30 Pulse Ox 91 L 09/28/24 13:30 FiO2 Intake & Output 09/27/24 09/28/24 09/28/24 18:59 06:59 18:59 Intake Total 250 Output Total 500 2275 800 Balance - Weight 84.8 kg Intake: Oral 250 Output: Urine 500 2275 800 Other: Voiding Method Urinal Toilet Urinal - Exam GENERAL DESCRIPTION: An elderly male up in the chair in no distress RESPIRATORY SYSTEM: Unlabored breathing , coarse breath sounds bilaterally HEART: S1 S2 regular rate and rhythm , ABDOMEN: Soft , no tenderness Lower extremity swelling slightly decreased - Labs CBC & Chem 7: 09/27/24 04:23 09/28/24 03:04 Labs: Abnormal Lab Results - Last 24 Hours (Table) 09/27/24 09/27/24 09/28/24 Range/Units 17:00 21:20 03:04 Chloride 93 L (96-109) mmol/L Anion Gap 12.80 H (4.00-12.00) mmol/L BUN 87.6 H (9.0-27.0) mg/dL Creatinine 2.5 H (0.6-1.5) mg/dL Est GFR (CKD-EPI) 26 L (>=60) BUN/Creatinine Ratio 35.04 H (12.00-20.00) Ratio POC Glucose (mg/dL) 180 H 198 H (70-110) mg/dL Calcium 8.5 L (8.7-10.3) mg/dL 09/28/24 Range/Units 12:21 Chloride (96-109) mmol/L Anion Gap (4.00-12.00) mmol/L BUN (9.0-27.0) mg/dL Creatinine (0.6-1.5) mg/dL Est GFR (CKD-EPI) (>=60) BUN/Creatinine Ratio (12.00-20.00) Ratio POC Glucose (mg/dL) 115 H (70-110) mg/dL Calcium (8.7-10.3) mg/dL Assessment and Plan (1) Pneumonia Current Visit: Yes Status: Acute Code(s): J18.9 - PNEUMONIA, UNSPECIFIED ORGANISM SNOMED Code(s): 102967408 (2) Leukopenia Current Visit: Yes Status: Acute Code(s): D72.819 - DECREASED WHITE BLOOD CELL COUNT, UNSPECIFIED SNOMED Code(s): 90531776 (3) C. difficile colitis Current Visit: Yes Status: Acute Code(s): A04.72 - ENTEROCOLITIS D/T CLOSTRIDIUM DIFFICILE, NOT SPCF RECUR SNOMED Code(s): 224368531 Plan: 1patient presented to hospital with increasing shortness of breath which is likely multifactorial possible combination of fluid overload which could be related to his cardiac/renal condition and less likely pneumonia 2sputum culture x 2 has been negative patient has received adequate Zosyn during this hospital stay now with developing diarrhea and C. difficile Zosyn has been discontinued 3patient is afebrile noticed to have some worsening of his kidney function and the patient mentioned nephrology is considering starting dialysis 4patient remains to be afebrile diarrhea slowing down plan is to continue oral vancomycin to finish a 10-day course of therapy Dictation was produced using [employer] dictation software. please excuse any grammatical, word or spelling errors. Time with Patient: Less than 30
--- NOTE | 2024-09-29 14:59 | P.PN ---
Subjective Progress Note Date: 09/29/24 Principal diagnosis: Reason for follow-up is C. difficile colitis Patient is a 74-year-old male with a past medical history significant for hypertension [place] heart failure with COPD hepatocellular carcinoma/hepatitis C patient presenting to the hospital a on 09/13/2024 concerning for increasing shortness of breath along with A-fib with RVR there was a concern for pneumonia treated with Zosyn. On today's evaluation that is 09/29/2024, Patient is afebrile this morning kennedy mckeon denies having any chest pain still complaining of shortness of breath on minimal exertion no worsening cough, the patient is currently on 4 L goal oxygen patient denies any abdominal pain diarrhea slowed down. No new lab has been obtained today Objective - Vital Signs Vital signs: Vital Signs Temp 96.3 F L 09/29/24 14:03 Pulse 78 09/29/24 14:03 Resp 16 09/29/24 14:03 BP 112/73 09/29/24 14:03 Pulse Ox 96 09/29/24 14:03 FiO2 Intake & Output 09/28/24 09/29/24 09/29/24 18:59 06:59 18:59 Intake Total 940 Output Total 1275 1200 Balance -335 -1200 Weight 83.1 kg Intake: Oral 940 Output: Urine 1275 1200 Other: Voiding Method Toilet Toilet Urinal Urinal - Exam GENERAL DESCRIPTION: An elderly male up in the chair in no distress RESPIRATORY SYSTEM: Unlabored breathing , coarse breath sounds bilaterally HEART: S1 S2 regular rate and rhythm , ABDOMEN: Soft , no tenderness Lower extremity swelling slightly decreased - Labs CBC & Chem 7: 09/27/24 04:23 09/28/24 03:04 Labs: Abnormal Lab Results - Last 24 Hours (Table) 09/28/24 09/28/24 09/29/24 Range/Units 17:12 21:08 11:37 POC Glucose (mg/dL) 174 H 183 H 176 H (70-110) mg/dL Assessment and Plan (1) Pneumonia Current Visit: Yes Status: Acute Code(s): J18.9 - PNEUMONIA, UNSPECIFIED ORGANISM SNOMED Code(s): 520662442 (2) Leukopenia Current Visit: Yes Status: Acute Code(s): D72.819 - DECREASED WHITE BLOOD CELL COUNT, UNSPECIFIED SNOMED Code(s): 63067512 (3) C. difficile colitis Current Visit: Yes Status: Acute Code(s): A04.72 - ENTEROCOLITIS D/T CLOSTRIDIUM DIFFICILE, NOT SPCF RECUR SNOMED Code(s): 471392124 Plan: 1patient presented to hospital with increasing shortness of breath which is likely multifactorial possible combination of fluid overload which could be related to his cardiac/renal condition and less likely pneumonia 2sputum culture x 2 has been negative patient has received adequate Zosyn during this hospital stay now with developing diarrhea and C. difficile Zosyn has been discontinued 3patient is afebrile noticed to have some worsening of his kidney function and the patient is being followed by nephrology 4patient remains to be afebrile patient mention improvement in his diarrhea we will continue with oral vancomycin to finish his 10-day course of therapy Dictation was produced using [employer] dictation software. please excuse any grammatical, word or spelling errors. Time with Patient: Less than 30
--- NOTE | 2024-09-29 15:50 | P.PN ---
Subjective Progress Note Date: 09/29/24 On 09/28/2024, the patient is being seen for a follow-up. In general, the patient is doing extremely poor. He is very weak and debilitated and he continues to have excessive edema in the lower extremities bilaterally. He continues to be short of breath even at rest. He is currently on IV Lasix 60 mg IV push every 12 hours. His oxygenation remained stable on 40 of oxygen by nasal cannula with a pulse ox of 91%. Chest x-ray from 09/23/2024 shows multifocal airspace opacities and blunting of the costophrenic angles consistent with pleural effusion. BUN is at 87 with a creatinine of 2.5. Electrolytes are stable with a serum bicarb of 30. Sodium levels at 136, potassium level is at 3.5, chloride is 93 with a bicarb of 30, and the patient is on oral vancomycin regarding C. difficile colitis. No nausea. No emesis. No significant abdominal pain. No other new complaints otherwise for now. On 09/29/2024, the patient is being seen for a follow-up. Condition essentially unchanged. Continues to have edema in the lower extremities bilaterally. The patient remains on IV Lasix and the patient is on a negative fluid balance of 2.5 L over the past 24 hours. The patient remains on 40 selection by nasal cannula. No new complaints otherwise for now. Oxygenation is also stable at 4 L. Medications remain unchanged. Remains on Symbicort, DuoNeb treatments [id number], and IV Lasix 60 mg every 12 hours. And Zaroxolyn 5 mg p.o. daily. He is also on prednisone burst taper currently at 30 mg p.o. daily. He remains on anticoagulation with Eliquis 2.5 mg twice a day and aspirin. Remains on amiodarone. Xanax on as-needed basis for increased anxiety. Objective - Vital Signs Vital signs: Vital Signs Temp 96.7 F L 09/29/24 07:25 Pulse 82 09/29/24 09:24 Resp 17 09/29/24 07:25 BP 138/69 09/29/24 07:25 Pulse Ox 98 09/29/24 07:25 FiO2 Intake & Output 09/28/24 09/29/24 09/29/24 18:59 06:59 18:59 Intake Total 940 Output Total 1275 1200 Balance -335 -1200 Weight 83.1 kg Intake: Oral 940 Output: Urine 1275 1200 Other: Voiding Method Toilet Toilet Urinal Urinal - Exam GENERAL EXAM: Alert, weak 74-year-old male, up in a chair, on 4 L nasal cannula, in no apparent distress. HEAD: Normocephalic. EYES: Normal reaction of pupils, equal size. NOSE: Clear with pink turbinates. THROAT: No erythema or exudates. NECK: No masses, no JVD. CHEST: No chest wall deformity. LUNGS: Equal air entry with bilateral scattered rhonchi, wheeze. CVS: S1 and S2 normal with no audible murmur, regular rhythm. ABDOMEN: No hepatosplenomegaly, normal bowel sounds, no guarding or rigidity. SPINE: No scoliosis or deformity SKIN: No rashes CENTRAL NERVOUS SYSTEM: No focal deficits, tone is normal in all 4 extremities. EXTREMITIES: There is 1-2+ peripheral edema. No clubbing, no cyanosis. Peripheral pulses are intact. - Labs CBC & Chem 7: 09/27/24 04:23 09/28/24 03:04 Labs: Abnormal Lab Results - Last 24 Hours (Table) 09/28/24 09/28/24 09/29/24 Range/Units 17:12 21:08 11:37 POC Glucose (mg/dL) 174 H 183 H 176 H (70-110) mg/dL Assessment and Plan Plan: Acute on chronic hypoxic respiratory failure secondary to an acute exacerbation of chronic systolic congestive heart failure, currently stable on 4 L of oxygen by nasal cannula Acute on chronic kidney injury, renal function is stable and the patient continues to have volume overload and edema lower extremities maintained on IV Lasix and Zaroxolyn. The patient continues to produce adequate urine output. Renal function is stable and the patient is a negative fluid balance. Nephrology on the case. Chronic systolic congestive heart failure ejection fraction of 35 to 40% in addition patient has moderate severe aortic stenosis Chronic atrial fibrillation, rate controlled Severe underlying COPD FEV1 of 59% Chronic kidney disease stage IV secondary to nephrosclerosis History of pacemaker implantation History of hypertension History of hepatitis C Pancytopenia secondary to liver disease Parotid gland carcinoma History of hepatocellular carcinoma Plan: Patient is quite debilitated and his long-term prognosis is poor. Has had multiple hospitalization for decompensated heart failure, volume overload and acute on top of chronic hypoxic respiratory failure. Continue DuoNeb inhalations Continue Symbicort Continue prednisone taper Remains on IV diuretics, currently on Lasix 60 mg IV push every 12 hours and the patient is also on Zaroxolyn 5 mg p.o. daily. Monitor fluid balance and urine output. Monitor electrolytes. Remains on fluid restrictions Remains on low-salt diet Nephrology is following Stable on 4 L nasal cannula Titrate the FiO2 as tolerated Increase his activity as tolerated Overall prognosis is poor DNR CODE STATUS The patient is considering hospice Will most likely need at least subacute rehabilitation at discharge Time with Patient: Greater than 30
--- NOTE | 2024-09-29 16:34 | P.PN ---
Subjective Patient is seen for follow-up of chronic kidney disease and acute kidney injury. Currently on IV Lasix 60 mg every 12 hours Maintained on steroids for COPD exacerbation. Shortness of breath is stable Renal function is stable with serum creatinine at 2.5 mg/dL. Objective - Vital Signs Vital signs: Vital Signs Temp 96.3 F L 09/29/24 14:03 Pulse 78 09/29/24 14:03 Resp 16 09/29/24 14:03 BP 112/73 09/29/24 14:03 Pulse Ox 96 09/29/24 14:03 FiO2 Intake & Output 09/28/24 09/29/24 09/29/24 18:59 06:59 18:59 Intake Total 940 Output Total 1275 1200 Balance -335 -1200 Weight 83.1 kg Intake: Oral 940 Output: Urine 1275 1200 Other: Voiding Method Toilet Toilet Urinal Urinal - Exam Patient is awake, comfortable, no acute distress Examination of the heart S1 and S2 Examination of the lungs decreased breath sounds at the bases occasional wheezing heard Abdomen is soft Examination lower extremity shows 1+ edema, chronic skin changes [employer] exam grossly intact - Labs CBC & Chem 7: 09/27/24 04:23 09/28/24 03:04 Labs: Abnormal Lab Results - Last 24 Hours (Table) 09/28/24 09/28/24 09/29/24 Range/Units 17:12 21:08 11:37 POC Glucose (mg/dL) 174 H 183 H 176 H (70-110) mg/dL Assessment and Plan Assessment: 1. Acute kidney injury secondary to ATN from hypotension and sepsis. Nonoliguric. UA shows trace protein and small blood, otherwise unremarkable. Ultrasound on 09/02/2024 did not show any evidence of obstruction. Renal functi on is stable 2. Acute on chronic hypoxic respiratory failure secondary to pneumonia and COPD exacerbation 3. Sepsis from pneumonia 4. Chronic kidney disease stage IV with baseline creatinine about 2.3 mg/dL secondary to nephrosclerosis 4. Cardiomyopathy with EF of 35 to 40% 5. Chronic A-fib 6. History of hepatitis C 7. History of hepatocellular carcinoma 8. C. difficile colitis Plan: Can switch to oral Lasix 60 mg twice daily upon discharge. Continue with oral vancomycin Repeat labs in a.m. Avoid nephrotoxic agents
[2024-09-29 17:10] LABS: Glucose,Whole Blood 214 mg/dL (70-110)
[2024-09-29 20:24] LABS: Glucose,Whole Blood 214 mg/dL (70-110)
[2024-09-29] MEDS: HYDROcodone/APAP 10-325MG 1 EACH TAB PO PRN (21:13)
--- NOTE | 2024-09-30 05:57 | P.PN ---
Subjective Date of service for this note is 09/29/2024 74-year-old male patient with multiple medical problems and coming into the dep artment having chest discomfort, cough, congestion and worsening shortness of breath. He is chronically debilitated and is willing more weak than usual. Denies having any fever. No hemoptysis. No pleurisy. Noted, the patient was hospitalized few days back and the patient was discharged home and his condition decompensated over the past 24 hours. The patient had a follow-up chest x-ray in the emergency department that showed development of new bilateral lower lobe pulmonary filtrates consistent with pneumonia. The patient was hypoxic and his oxygen requirements progressively got worse and is currently on 15 L of oxygen by nasal cannula with a pulse ox of 93%. He typically uses oxygen between 2 and 3 L. He remains in chronic atrial fibrillation. The white cell count is 8.9 with a hemoglobin 11.9 and a platelet count of 142. BUN is 64 with a creatinine of 2.7 and sodium levels at 138. Potassium level is at 4.4. Initial lactic acid level was at 3.1 down to 1.6. Procalcitonin level is pending. proBNP level is 26,100. Troponins at 0.03. Rest of the liver function tests are normal. The viral screen is negative. Based on his clinical presentation, I ordered a noncontrast CAT scan of the chest and the CAT scan showed cardiomegaly, splenomegaly, small bilateral pleural effusion, bibasilar pulmonary consolidation in addition to consolidation of the right middle lobe and the findings are quite suspicious for an underlying pneumonia. The patient accordingly was started on Zosyn and is also on Zithromax. On a separate note, the patient was noted to be hypotensive. He was started on low-dose norepinephrine for hemodynamic support. The patient is currently on norep inephrine running at 0.05 mcg/kg/min. Awake and alert and communicating His comorbidities are multiple and the patient is known to have COPD, chronic stage III kidney disease, congestion heart failure with a ejection fraction of 35 to 40% and the patient has moderate degree of aortic stenosis and mild pulmonary hypertension, chronic A-fib, hypertension, history of pancytopenia as the patient has previous history of hepatitis C and history of hepatocellular carcinoma and he also has previous history of coronary artery disease with previous IL and hypertension and the patient has a permanent pacemaker in place. 09/27/2023 -patient seen and evaluated in room at bedside; vital signs are reviewed and patient did have a temperature of 96.6 F this afternoon and denies having any chills, patient is on 4 L nasal cannula oxygen and breathing slightly comfortably no chest pain or worsening cough, the patient did not have any nausea vomiting abdominal pain diarrhea slowed down. Blood work is reviewed and reveals sodium 136, potassium 3.5, BUN/creatinine of 98/2.16 patient presented to hospital with increasing shortness of breath which is likely multifactorial possible combination of fluid overload which could be related to his cardiac/renal condition and less likely pneumonia sputum culture x 2 has been negative patient has received adequate Zosyn during this hospital stay now with developing diarrhea and C. difficile Zosyn has been discontinued patient is afebrile noticed to have some worsening of his kidney function and the patient mentioned nephrology is considering starting dialysis patient did have improvement in his diarrhea, oral vancomycin fell off because of automatic discontinuation we will restart the vancomycin to finish a total of 10-day course of therapy Patient is seen and evaluated in room at bedside; remains afebrile; currently on 4 L nasal cannula oxygen and mention breathing slightly comfortably, the patient denies any chest pain or worsening cough, the patient denies any nausea vomiting did not have any abdominal pain and diarrhea has slowed down. Patient did have a white count of 3.27, creatinine is 2.4 patient presented to hospital with increasing shortness of breath which is likely multifactorial possible combination of fluid overload which could be related to his cardiac/renal condition and less likely pneumonia sputum culture x 2 has been negative patient has received adequate Zosyn during this hospital stay now with developing diarrhea and C. difficile; Zosyn has been discontinued patient is afebrile noticed to have some worsening of his kidney function; nephrology recommending to maintain IV Lasix; continue with metolazone 5 mg daily, continue with low-salt diet and 1500cc fluid restriction. patient did have improvement in his diarrhea, patient will be treated with oral vancomycin to finish a 10-day course of therapy 09/28 This is a pleasant 74 years old male home presents initially to the intensive care unit when bilateral pneumonia and acute CHF exacerbation. Patient already finished his course of antibiotic and currently he is afebrile and doing well regarding his breathing. He is on 4 L oxygen via nasal cannula. At home he was using 2 to 4 L/min which is the same dose. No chest pain or dyspnea. He remains on Eliquis 2.5 mg at home because of A-fib this was stopped on admission on 09/14 for hemoptysis. I talked to the patient with risk benefits explained for him and he agrees to resume his Eliquis which is ordered. Also he is on IV Lasix 60 mg twice daily and metolazone 5 mg. Creatinine 2.5 nephrology team following closely with consistent follow-up and he has been cleared for discharge Is also on oral vancomycin for C. difficile colitis, today's last dose. Diarrhea is improved no abdominal pain Tolerating his diet well. He also acute kidney injury on CKD stage IV, creatinine stable as above. Patient looks like cleared for discharge by nephrology ID team. Pulmonary team also following. Cleared for discharge Discussed with case management assistant pending placement arranged possible in 24 to 48 hours 09/29 Patient seen and examined by me at bedside He is doing clinically well. He is complaining from pain all over his body but not in distress. He has 2+ bilateral pitting leg edema He is currently on IV Lasix 60 mg twice daily which can switch to oral Breathing is stable He finished his last dose of oral vancomycin. Diarrhea improved for his C. difficile Patient clinically stable Discussed with director social service for discharge pending placement Objective - Vital Signs Vital signs: Vital Signs Temp 97.8 F 09/30/24 01:05 Pulse 66 09/30/24 01:05 Resp 14 09/30/24 01:05 BP 125/52 09/30/24 01:05 Pulse Ox 95 09/30/24 01:05 FiO2 Intake & Output 09/29/24 09/29/24 09/30/24 06:59 18:59 06:59 Intake Total 720 540 Output Total 1200 725 850 Balance -1200 -5 -310 Weight 83.1 kg Intake: Oral 720 540 Output: Urine 1200 725 850 Other: Voiding Method Toilet Urinal - Exam -GENERAL: The patient is alert and oriented x3, not in any acute distress. Well developed, well nourished. Generally weak HEENT: Pupils are round and equally reacting to light. EOMI. No scleral icterus. No conjunctival pallor. Normocephalic, atraumatic. No pharyngeal erythema. No thyromegaly. CARDIOVASCULAR: S1 and S2 present. No murmurs, rubs, or gallops. PULMONARY: Chest is clear to auscultation, no wheezing , no crackles. ABDOMEN: Soft, nontender, nondistended, normoactive bowel sounds. No palpable organomegaly. MUSCULOSKELETAL: No joint swelling or deformity. EXTREMITIES: No cyanosis, clubbing, or pedal edema. NEUROLOGICAL: Gross neurological examination did not reveal any focal deficits. SKIN: No rashes. no petechiae. - Labs CBC & Chem 7: 09/27/24 04:23 09/28/24 03:04 Labs: Abnormal Lab Results - Last 24 Hours (Table) 09/29/24 09/29/24 09/29/24 Range/Units 11:37 17:08 20:23 POC Glucose (mg/dL) 176 H 214 H 214 H (70-110) mg/dL Assessment and Plan Assessment: 1. Acute bilateral lower lobe pneumonia/hospital-acquired pneumonia - Chest x-ray and CT chest reveals extensive consolidation of the right lung base. - was on IV Zosyn and azithromycin. Currently finished IV antibiotics - Blood cultures, sputum culture and Gram stain has been ordered -Continue his Eliquis 2. Acute on chronic hypoxic respiratory failure; currently on 15 L of oxygen by nasal cannula - Will plan to titrate or wean as able. Resolved and now at baseline - 3. Acute hypotension; rule out underlying sepsis and the patient is currently on low-dose norepinephrine. Resolved 4. Acute exacerbation COPD; patient has been placed on IV Solu-Medrol; bronchodilator nebulizer treatments 4 times daily and as needed 4. Chronic systolic heart failure. - Last echocardiogram showed impaired LV function with an ejection fraction of 35 to 40%, with moderate degree of aortic valve stenosis. He also has mild aortic dilatation at the level of the root measuring 41 mm in size. He has moderate RV dilatation, mild pulmonary hypertension. -Will continue with home diuretic therapy 5. Chronic atrial fibrillation, controlled rate, maintained on anticoagulation with Eliquis - Patient remains rate controlled on amiodarone 200 mg twice daily; continue home dose of beta-blockers 6. acute kidney injury on chronic stage III kidney disease; creatinine at baseline; monitor strict CHICO's, daily weights, renal function electrolyte; avoid nephrotoxins and hypotension Creatinine stable 2.5, nephrology on the case. For discharge. Continue with diuretics 7. History of implantation of permanent pacemaker. 8. History of hepatitis C/chronic liver disease/hepatocellular carcinoma. 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 Hepatocellular carcinoma. VTE prophylaxis; SCDs/systemic anticoagulation CODE STATUS; DNR
[2024-09-30 06:37] LABS: Glucose,Whole Blood 96 mg/dL (70-110)
[2024-09-30 11:37] LABS: African American GFR (CKD) 33 (>60 ml/min/1.73 sqM); Anion Gap 8 mmol/L; Blood Urea Nitrogen 99 mg/dL (9-20); Carbon Dioxide 37 mmol/L (22-30); Chloride 90 mmol/L (98-107); Glucose 134 mg/dL (74-99); Non-African American GFR(CKD) 29 (>60 ml/min/1.73 sqM); Potassium 2.9 mmol/L (3.5-5.1); Sodium 135 mmol/L (137-145)
[2024-09-30 12:06] LABS: Glucose,Whole Blood 102 mg/dL (70-110)
--- NOTE | 2024-09-30 13:29 | P.PN ---
Subjective Patient is seen for follow-up of chronic kidney disease and acute kidney injury. Currently on IV Lasix 60 mg every 12 hours Maintained on steroids for COPD exacerbation. Shortness of breath is stable Renal function is stable with serum creatinine at 2.5 mg/dL. Objective - Vital Signs Vital signs: Vital Signs Temp 97.5 F L 09/30/24 08:34 Pulse 72 09/30/24 12:27 Resp 16 09/30/24 08:34 BP 127/57 09/30/24 08:34 Pulse Ox 97 09/30/24 08:34 FiO2 Intake & Output 09/29/24 09/30/24 09/30/24 18:59 06:59 18:59 Intake Total 720 540 Output Total 725 1350 Balance -5 -810 Weight 82.3 kg Intake: Oral 720 540 Output: Urine 725 1350 - Exam Patient is awake, comfortable, no acute distress Examination of the heart S1 and S2 Examination of the lungs decreased breath sounds at the bases occasional wheezing heard Abdomen is soft Examination lower extremity shows 1+ edema,decreasing, chronic skin changes, some erythema noted bilaterally [employer] exam grossly intact - Labs CBC & Chem 7: 09/27/24 04:23 09/30/24 10:48 Labs: Abnormal Lab Results - Last 24 Hours (Table) 09/29/24 09/29/24 09/30/24 Range/Units 17:08 20:23 10:48 Sodium 135 L (137-145) mmol/L Potassium 2.9 L (3.5-5.1) mmol/L Chloride 90 L (98-107) mmol/L Carbon Dioxide 37 H (22-30) mmol/L BUN 99 H (9-20) mg/dL Creatinine 2.20 H (0.66-1.25) mg/dL Glucose 134 H (74-99) mg/dL POC Glucose (mg/dL) 214 H 214 H (70-110) mg/dL Assessment and Plan Assessment: 1. Acute kidney injury secondary to ATN from hypotension and sepsis. Nonoliguric. UA shows trace protein and small blood, otherwise unremarkable. Ultrasound on 09/02/2024 did not show any evidence of obstruction. Renal function is stable 2. Acute on chronic hypoxic respiratory failure secondary to pneumonia and COPD exacerbation 3. Sepsis from pneumonia 4. Chronic kidney disease stage IV with baseline creatinine about 2.3 mg/dL secondary to nephrosclerosis 4. Cardiomyopathy with EF of 35 to 40% 5. Chronic A-fib 6. History of hepatitis C 7. History of hepatocellular carcinoma 8. C. difficile colitis Plan: Can switch to oral Lasix 60 mg twice daily upon discharge. Check labs today Continue with oral vancomycin Avoid nephrotoxic agents
[2024-09-30] MEDS: HYDROcodone/APAP 10-325MG 1 EACH TAB PO ONE (14:15)
[2024-09-30 17:03] LABS: Glucose,Whole Blood 210 mg/dL (70-110)
[2024-09-30] MEDS ORDERED: Magnesium Replacement Protocol 1 EACH MISC MISCELLANE PRN (18:47)
[2024-09-30] MEDS ORDERED: Potassium Replacement Protocol 1 EACH MISC MISCELLANE PRN (18:47)
[2024-09-30 21:29] LABS: Potassium 3.5 mmol/L (3.5-5.1)
[2024-09-30 21:30] LABS: Glucose,Whole Blood 206 mg/dL (70-110)
--- NOTE | 2024-09-30 21:43 | P.PN ---
Subjective Progress Note Date: 09/30/24 On 09/28/2024, the patient is being seen for a follow-up. In general, the patient is doing extremely poor. He is very weak and debilitated and he continues to have excessive edema in the lower extremities bilaterally. He continues to be short of breath even at rest. He is currently on IV Lasix 60 mg IV push every 12 hours. His oxygenation remained stable on 40 of oxygen by nasal cannula with a pulse ox of 91%. Chest x-ray from 09/23/2024 shows multifocal airspace opacities and blunting of the costophrenic angles consistent with pleural effusion. BUN is at 87 with a creatinine of 2.5. Electrolytes are stable with a serum bicarb of 30. Sodium levels at 136, potassium level is at 3.5, chloride is 93 with a bicarb of 30, and the patient is on oral vancomycin regarding C. difficile colitis. No nausea. No emesis. No significant abdominal pain. No other new complaints otherwise for now. On 09/29/2024, the patient is being seen for a follow-up. Condition essentially unchanged. Continues to have edema in the lower extremities bilaterally. The patient remains on IV Lasix and the patient is on a negative fluid balance of 2.5 L over the past 24 hours. The patient remains on 40 selection by nasal cannula. No new complaints otherwise for now. Oxygenation is also stable at 4 L. Medications remain unchanged. Remains on Symbicort, DuoNeb treatments [id number], and IV Lasix 60 mg every 12 hours. And Zaroxolyn 5 mg p.o. daily. He is also on prednisone burst taper currently at 30 mg p.o. daily. He remains on anticoagulation with Eliquis 2.5 mg twice a day and aspirin. Remains on amiodarone. Xanax on as-needed basis for increased anxiety. On 09/30/2024, the patient is being seen for a follow-up. Overall condition unchanged. Currently on 2 L of oxygen by nasal cannula with pulse ox of 95%. He remains on IV Lasix 60 mg every 12 hours. Continues to have some baseline shortness of breath. Renal function remained stable, with a BUN of 99 and a creatinine of 2.2. Electrolytes show a sodium level of 135, potassium is at 3.5, chloride is 90 with a bicarb of 37. Rest of medications unchanged. Nephrology on the case. Remains on anticoagulation with Eliquis. Remains on Zaroxolyn 5 mg p.o. daily. Prednisone as part of the burst taper and currently on 30 mg p.o. daily. Chronically debilitated and weak Objective - Vital Signs Vital signs: Vital Signs Temp 97.5 F L 09/30/24 14:12 Pulse 80 09/30/24 18:53 Resp 16 09/30/24 14:12 BP 110/50 09/30/24 14:12 Pulse Ox 95 09/30/24 14:12 FiO2 Intake & Output 09/30/24 09/30/24 10/01/24 06:59 18:59 06:59 Intake Total 540 1000 Output Total 1350 Balance -810 1000 Weight 82.3 kg Intake: Oral 540 1000 Output: Urine 1350 Other: # Voids 3 - Exam GENERAL EXAM: Alert, weak 74-year-old male, up in a chair, on 4 L nasal cannula, in no apparent distress. HEAD: Normocephalic. EYES: Normal reaction of pupils, equal size. NOSE: Clear with pink turbinates. THROAT: No erythema or exudates. NECK: No masses, no JVD. CHEST: No chest wall deformity. LUNGS: Equal air entry with bilateral scattered rhonchi, wheeze. CVS: S1 and S2 normal with no audible murmur, regular rhythm. ABDOMEN: No hepatosplenomegaly, normal bowel sounds, no guarding or rigidity. SPINE: No scoliosis or deformity SKIN: No rashes CENTRAL NERVOUS SYSTEM: No focal deficits, tone is normal in all 4 extremities. EXTREMITIES: There is 1-2+ peripheral edema. No clubbing, no cyanosis. Peripheral pulses are intact. - Labs CBC & Chem 7: 09/27/24 04:23 09/30/24 19:01 Labs: Abnormal Lab Results - Last 24 Hours (Table) 09/30/24 09/30/24 09/30/24 Range/Units 10:48 17:02 21:28 Sodium 135 L (137-145) mmol/L Potassium 2.9 L (3.5-5.1) mmol/L Chloride 90 L (98-107) mmol/L Carbon Dioxide 37 H (22-30) mmol/L BUN 99 H (9-20) mg/dL Creatinine 2.20 H (0.66-1.25) mg/dL Glucose 134 H (74-99) mg/dL POC Glucose (mg/dL) 210 H 206 H (70-110) mg/dL Assessment and Plan Plan: Acute on chronic hypoxic respiratory failure secondary to an acute exacerbation of chronic systolic congestive heart failure, currently stable on 2 L of oxygen by nasal cannula Acute on chronic kidney injury, renal function is stable and the patient continues to have volume overload and edema lower extremities maintained on IV Lasix and Zaroxolyn. The patient continues to produce adequate urine output. Renal function is stable and the patient is a negative fluid balance. Nephrology on the case. The creatinine remains stable and the patient remains on diuretics Chronic systolic congestive heart failure ejection fraction of 35 to 40% in addition patient has moderate severe aortic stenosis Chronic atrial fibrillation, rate controlled Severe underlying COPD FEV1 of 59% Chronic kidney disease stage IV secondary to nephrosclerosis History of pacemaker implantation History of hypertension History of hepatitis C Pancytopenia secondary to liver disease Parotid gland carcinoma History of hepatocellular carcinoma Plan: Patient is quite debilitated and his long-term prognosis is poor. Has had multiple hospitalization for decompensated heart failure, volume overload and acute on top of chronic hypoxic respiratory failure. Continue DuoNeb inhalations Continue Symbicort Continue prednisone taper, currently on 30 mg p.o. daily Remains on IV diuretics, currently on Lasix 60 mg IV push every 12 hours and the patient is also on Zaroxolyn 5 mg p.o. daily. Monitor fluid balance and urine output. Monitor electrolytes. Remains on fluid restrictions Remains on low-salt diet Nephrology is following Stable on 2 L nasal cannula Titrate the FiO2 as tolerated Increase his activity as tolerated Overall prognosis is poor DNR CODE STATUS The patient is considering hospice Will most likely need at least subacute rehabilitation at discharge
--- NOTE | 2024-09-30 22:57 | P.PN ---
Subjective Progress Note Date: 09/30/24 Principal diagnosis: Reason for follow-up is C. difficile colitis Patient is a 74-year-old male with a past medical history significant for hypertension [place] heart failure with COPD hepatocellular carcinoma/hepatitis C patient presenting to the hospital a on 09/13/2024 concerning for increasing shortness of breath along with A-fib with RVR there was a concern for pneumonia treated with Zosyn. On today's evaluation that is 09/30/2024,the patient denies any fever or any chills, patient is breathing slightly comfortably on 4 L nasal cannula oxygen the patient denies chest pain shortness of breath and no significant cough, patient denies abdominal pain, no nausea vomiting and improvement in diarrhea patient noticed to have increasing swelling and some redness to the left lower extremity. Patient mention has been getting worse since last night. Patient did have a creatinine of 2.20 no CBC was done today Objective - Vital Signs Vital signs: Vital Signs Temp 97.5 F L 09/30/24 08:34 Pulse 72 09/30/24 12:27 Resp 16 09/30/24 08:34 BP 127/57 09/30/24 08:34 Pulse Ox 97 09/30/24 08:34 FiO2 Intake & Output 09/29/24 09/30/24 09/30/24 18:59 06:59 18:59 Intake Total 720 540 Output Total 725 1350 Balance -5 -810 Weight 82.3 kg Intake: Oral 720 540 Output: Urine 725 1350 - Exam GENERAL DESCRIPTION: An elderly male up in the chair in no distress RESPIRATORY SYSTEM: Unlabored breathing , coarse breath sounds bilaterally HEART: S1 S2 regular rate and rhythm , ABDOMEN: Soft , no tenderness Left lower extremity noted to have swelling and some erythema no skin breakdown or drainage - Labs CBC & Chem 7: 09/27/24 04:23 09/30/24 19:01 Labs: Abnormal Lab Results - Last 24 Hours (Table) 09/29/24 09/29/24 09/30/24 Range/Units 17:08 20:23 10:48 Sodium 135 L (137-145) mmol/L Potassium 2.9 L (3.5-5.1) mmol/L Chloride 90 L (98-107) mmol/L Carbon Dioxide 37 H (22-30) mmol/L BUN 99 H (9-20) mg/dL Creatinine 2.20 H (0.66-1.25) mg/dL Glucose 134 H (74-99) mg/dL POC Glucose (mg/dL) 214 H 214 H (70-110) mg/dL Assessment and Plan (1) C. difficile colitis Current Visit: Yes Status: Acute Code(s): A04.72 - ENTEROCOLITIS D/T CLOSTRIDIUM DIFFICILE, NOT SPCF RECUR SNOMED Code(s): 817669171 (2) Left leg swelling Current Visit: Yes Status: Acute Code(s): M79.89 - OTHER SPECIFIED SOFT TISSUE DISORDERS SNOMED Code(s): 199532655 Plan: 1patient presented to hospital with increasing shortness of breath which is likely multifactorial possible combination of fluid overload which could be related to his cardiac/renal condition and less likely pneumonia 2sputum culture x 2 has been negative patient has received adequate Zosyn during this hospital stay now with developing diarrhea and C. difficile Zosyn has been discontinued 3patient is afebrile noticed to have some worsening of his kidney function and the patient is being followed by nephrology 4patient remains to be afebrile patient mention improvement in his diarrhea we will continue with oral vancomycin to finish his 10-day course of therapy 5-patient noted to have increasing redness left lower extremity this patient noted to have evidence of diffuse swelling bilateral lower extremity from fluid overload because of his kidney condition, nursing staff has been advised to paula the area of the redness and apply Vinny wrap and will see response if no improvement or any worsening redness or fever may consider starting antibiotic however as the patient is just recovering from C. difficile colitis we will hold on adding any empiric antibiotic therapy for possible cellulitis at this point Dictation was produced using [employer] dictation software. please excuse any grammatical, word or spelling errors. Time with Patient: Less than 30
[2024-10-01 06:24] LABS: Glucose,Whole Blood 130 mg/dL (70-110)
[2024-10-01 08:21] LABS: BUN/Creat Ratio 37.17 Ratio (12.00-20.00); Blood Urea Nitrogen 89.2 mg/dL (9.0-27.0); Calcium 8.1 mg/dL (8.7-10.3); Chloride 91 mmol/L (96-109); Glucose 122 mg/dL (70-110); Magnesium 2.1 mg/dL (1.5-2.4); Potassium 3.4 mmol/L (3.5-5.5); Sodium 139 mmol/L (135-145)
[2024-10-01 09:13] LABS: Basophils # (A) 0 X 10*3/uL (0.00-0.10); Basophils % (A) 0 %; Eosinophils # (A) 0.01 X 10*3/uL (0.04-0.35); Eosinophils % (A) 0.3 %; HCT 26.9 % (39.6-50.0); HGB 8.1 g/dL (13.0-17.0); Immature Platelet Fraction 4.4 % (1.1-6.1); Lymphocytes # (A) 0.14 X 10*3/uL (0.90-5.00); Lymphocytes % (A) 4.8 %; MCH 25.8 pg (27.0-32.0); MCHC 30.1 g/dL (32.0-37.0); MCV 85.7 FL (80.0-97.0); Monocytes % (A) 3.5 %; NRBC Per 100 WBC 0 X 10*3/uL (0.00-0.01); Neutrophils # (A) 2.63 X 10*3/uL (1.80-7.70); Neutrophils % (A) 91.1 %; Platelet Count 41 X 10*3/uL (140-440); RBC 3.14 X 10*6/uL (4.40-5.60); RDW 18.8 % (11.5-14.5); WBC 2.89 X 10*3/uL (4.50-10.00)
[2024-10-01 09:21] VITALS: BMI 26.2
[2024-10-01 10:43] LABS: Eosinophils # (A) 0.02 10*3/uL (0.04-0.35); Eosinophils % (A) 0.5 %; HCT 28.2 % (39.6-50.0); HGB 8.7 g/dL (13.0-17.0); Immature Platelet Fraction 2.9 % (1.1-6.1); Lymphocytes # (A) 0.12 10*3/uL (0.90-5.00); Lymphocytes % (A) 3.3 %; MCH 26.4 pg (27.0-32.0); MCHC 30.9 g/dL (32.0-37.0); MCV 85.7 fL (80.0-97.0); Monocytes # (A) 0.11 10*3/uL (0.20-1.00); Neutrophils # (A) 3.42 10*3/uL (1.80-7.70); Neutrophils % (A) 92.9 %; RBC 3.29 10*6/uL (4.40-5.60); RDW 18.6 % (11.5-14.5); WBC 3.68 10*3/uL (4.50-10.00)
[2024-10-01 11:33] LABS: Anisocytosis (M) Present; Platelet Count 46 10*3/uL (140-440)
[2024-10-01 11:54] LABS: Glucose,Whole Blood 127 mg/dL (70-110)
[2024-10-01] MEDS: POTASSIUM CHLORIDE ER 20 MEQ TAB.ER PO SCH (12:07)
--- NOTE | 2024-10-01 12:59 | P.PN ---
Subjective Patient is seen for follow-up of chronic kidney disease and acute kidney injury. Currently on IV Lasix 60 mg every 12 hours Complaining of pain in bilateral lower extremities. Erythema seems to have worsened from yesterday. No significant diarrhea per patient. Serum creatinine at 2.4 mg/dL. Objective - Vital Signs Vital signs: Vital Signs Temp 97.5 F L 10/01/24 07:23 Pulse 78 10/01/24 12:14 Resp 16 10/01/24 07:23 BP 151/77 10/01/24 07:23 Pulse Ox 97 10/01/24 07:23 FiO2 Intake & Output 09/30/24 10/01/24 10/01/24 18:59 06:59 18:59 Intake Total 1000 480 Output Total 950 Balance 1000 -470 Weight 83 kg 83 kg Intake: Oral 1000 480 Output: Urine 950 Other: Voiding Method Toilet Urinal # Voids 3 2 - Exam Patient is awake, comfortable, no acute distress Examination of the heart S1 and S2 Examination of the lungs decreased breath sounds at the bases occasional wheezing heard Abdomen is soft Examination lower extremity shows 1+ edema,decreasing, chronic skin changes, erythema noted bilaterally [facility] [employer]PAIR exam grossly intact - Labs CBC & Chem 7: 10/01/24 10:30 10/01/24 05:11 Labs: Abnormal Lab Results - Last 24 Hours (Table) 09/30/24 09/30/24 10/01/24 Range/Units 17:02 21:28 05:11 WBC (4.50-10.00) X 10*3/uL RBC (4.40-5.60) X 10*6/uL Hgb (13.0-17.0) g/dL Hct (39.6-50.0) % MCH (27.0-32.0) pg MCHC (32.0-37.0) g/dL RDW (11.5-14.5) % Plt Count (140-440) X 10*3/uL Lymphocytes # (0.90-5.00) X 10*3/uL Monocytes # (0.20-1.00) X 10*3/uL Eosinophils # (0.04-0.35) X 10*3/uL Potassium 3.4 L (3.5-5.5) mmol/L Chloride 91 L (96-109) mmol/L Carbon Dioxide 32.0 H (21.6-31.8) mmol/L Anion Gap 16.00 H (4.00-12.00) mmol/L BUN 89.2 H (9.0-27.0) mg/dL Creatinine 2.4 H (0.6-1.5) mg/dL Est GFR (CKD-EPI) 28 L (>=60) BUN/Creatinine Ratio 37.17 H (12.00-20.00) Ratio Glucose 122 H (70-110) mg/dL POC Glucose (mg/dL) 210 H 206 H (70-110) mg/dL Calcium 8.1 L (8.7-10.3) mg/dL C-Reactive Protein 6.20 H (0.00-0.80) mg/dL 10/01/24 10/01/24 10/01/24 Range/Units 05:11 06:22 10:30 WBC 2.89 L 3.68 L (4.50-10.00) X 10*3/uL RBC 3.14 L 3.29 L (4.40-5.60) X 10*6/uL Hgb 8.1 L 8.7 L (13.0-17.0) g/dL Hct 26.9 L 28.2 L (39.6-50.0) % MCH 25.8 L 26.4 L (27.0-32.0) pg MCHC 30.1 L 30.9 L (32.0-37.0) g/dL RDW 18.8 H 18.6 H (11.5-14.5) % Plt Count 41 A* 46 L (140-440) X 10*3/uL Lymphocytes # 0.14 L 0.12 L (0.90-5.00) X 10*3/uL Monocytes # 0.10 L 0.11 L (0.20-1.00) X 10*3/uL Eosinophils # 0.01 L 0.02 L (0.04-0.35) X 10*3/uL Potassium (3.5-5.5) mmol/L Chloride (96-109) mmol/L Carbon Dioxide (21.6-31.8) mmol/L Anion Gap (4.00-12.00) mmol/L BUN (9.0-27.0) mg/dL Creatinine (0.6-1.5) mg/dL Est GFR (CKD-EPI) (>=60) BUN/Creatinine Ratio (12.00-20.00) Ratio Glucose (70-110) mg/dL POC Glucose (mg/dL) 130 H (70-110) mg/dL Calcium (8.7-10.3) mg/dL C-Reactive Protein (0.00-0.80) mg/dL 10/01/24 Range/Units 11:52 WBC (4.50-10.00) X 10*3/uL RBC (4.40-5.60) X 10*6/uL Hgb (13.0-17.0) g/dL Hct (39.6-50.0) % MCH (27.0-32.0) pg MCHC (32.0-37.0) g/dL RDW (11.5-14.5) % Plt Count (140-440) X 10*3/uL Lymphocytes # (0.90-5.00) X 10*3/uL Monocytes # (0.20-1.00) X 10*3/uL Eosinophils # (0.04-0.35) X 10*3/uL Potassium (3.5-5.5) mmol/L Chloride (96-109) mmol/L Carbon Dioxide (21.6-31.8) mmol/L Anion Gap (4.00-12.00) mmol/L BUN (9.0-27.0) mg/dL Creatinine (0.6-1.5) mg/dL Est GFR (CKD-EPI) (>=60) BUN/Creatinine Ratio (12.00-20.00) Ratio Glucose (70-110) mg/dL POC Glucose (mg/dL) 127 H (70-110) mg/dL Calcium (8.7-10.3) mg/dL C-Reactive Protein (0.00-0.80) mg/dL Assessment and Plan Assessment: 1. Acute kidney injury secondary to ATN from hypotension and sepsis. Nonoliguric. UA shows trace protein and small blood, otherwise unremarkable. Ultrasound on 09/02/2024 did not show any evidence of obstruction. Renal function is stable 2. Acute on chronic hypoxic respiratory failure secondary to pneumonia and COPD exacerbation 3. Sepsis from pneumonia 4. Chronic kidney disease stage IV with baseline creatinine about 2.3 mg/dL secondary to nephrosclerosis 4. Cardiomyopathy with EF of 35 to 40% 5. Chronic A-fib 6. History of hepatitis C 7. History of hepatocellular carcinoma 8. C. difficile colitis 9. Cellulitis lower extremities 10. Thrombocytopenia, possibly reactive Plan: Decrease Lasix Replace potassium Antibiotics for cellulitis as per I as per IDD Continue with oral vancomycin Avoid nephrotoxic agents
--- NOTE | 2024-10-01 13:37 | P.PN ---
Subjective Date of service for this note is 09/29/2024 74-year-old male patient with multiple medical problems and coming into the dep artment having chest discomfort, cough, congestion and worsening shortness of breath. He is chronically debilitated and is willing more weak than usual. Denies having any fever. No hemoptysis. No pleurisy. Noted, the patient was hospitalized few days back and the patient was discharged home and his condition decompensated over the past 24 hours. The patient had a follow-up chest x-ray in the emergency department that showed development of new bilateral lower lobe pulmonary filtrates consistent with pneumonia. The patient was hypoxic and his oxygen requirements progressively got worse and is currently on 15 L of oxygen by nasal cannula with a pulse ox of 93%. He typically uses oxygen between 2 and 3 L. He remains in chronic atrial fibrillation. The white cell count is 8.9 with a hemoglobin 11.9 and a platelet count of 142. BUN is 64 with a creatinine of 2.7 and sodium levels at 138. Potassium level is at 4.4. Initial lactic acid level was at 3.1 down to 1.6. Procalcitonin level is pending. proBNP level is 26,100. Troponins at 0.03. Rest of the liver function tests are normal. The viral screen is negative. Based on his clinical presentation, I ordered a noncontrast CAT scan of the chest and the CAT scan showed cardiomegaly, splenomegaly, small bilateral pleural effusion, bibasilar pulmonary consolidation in addition to consolidation of the right middle lobe and the findings are quite suspicious for an underlying pneumonia. The patient accordingly was started on Zosyn and is also on Zithromax. On a separate note, the patient was noted to be hypotensive. He was started on low-dose norepinephrine for hemodynamic support. The patient is currently on norep inephrine running at 0.05 mcg/kg/min. Awake and alert and communicating His comorbidities are multiple and the patient is known to have COPD, chronic stage III kidney disease, congestion heart failure with a ejection fraction of 35 to 40% and the patient has moderate degree of aortic stenosis and mild pulmonary hypertension, chronic A-fib, hypertension, history of pancytopenia as the patient has previous history of hepatitis C and history of hepatocellular carcinoma and he also has previous history of coronary artery disease with previous RI and hypertension and the patient has a permanent pacemaker in place. 09/27/2023 -patient seen and evaluated in room at bedside; vital signs are reviewed and patient did have a temperature of 96.6 F this afternoon and denies having any chills, patient is on 4 L nasal cannula oxygen and breathing slightly comfortably no chest pain or worsening cough, the patient did not have any nausea vomiting abdominal pain diarrhea slowed down. Blood work is reviewed and reveals sodium 136, potassium 3.5, BUN/creatinine of 98/2.16 patient presented to hospital with increasing shortness of breath which is likely multifactorial possible combination of fluid overload which could be related to his cardiac/renal condition and less likely pneumonia sputum culture x 2 has been negative patient has received adequate Zosyn during this hospital stay now with developing diarrhea and C. difficile Zosyn has been discontinued patient is afebrile noticed to have some worsening of his kidney function and the patient mentioned nephrology is considering starting dialysis patient did have improvement in his diarrhea, oral vancomycin fell off because of automatic discontinuation we will restart the vancomycin to finish a total of 10-day course of therapy Patient is seen and evaluated in room at bedside; remains afebrile; currently on 4 L nasal cannula oxygen and mention breathing slightly comfortably, the patient denies any chest pain or worsening cough, the patient denies any nausea vomiting did not have any abdominal pain and diarrhea has slowed down. Patient did have a white count of 3.27, creatinine is 2.4 patient presented to hospital with increasing shortness of breath which is likely multifactorial possible combination of fluid overload which could be related to his cardiac/renal condition and less likely pneumonia sputum culture x 2 has been negative patient has received adequate Zosyn during this hospital stay now with developing diarrhea and C. difficile; Zosyn has been discontinued patient is afebrile noticed to have some worsening of his kidney function; nephrology recommending to maintain IV Lasix; continue with metolazone 5 mg daily, continue with low-salt diet and 1500cc fluid restriction. patient did have improvement in his diarrhea, patient will be treated with oral vancomycin to finish a 10-day course of therapy 09/28 This is a pleasant 74 years old male home presents initially to the intensive care unit when bilateral pneumonia and acute CHF exacerbation. Patient already finished his course of antibiotic and currently he is afebrile and doing well regarding his breathing. He is on 4 L oxygen via nasal cannula. At home he was using 2 to 4 L/min which is the same dose. No chest pain or dyspnea. He remains on Eliquis 2.5 mg at home because of A-fib this was stopped on admission on 09/14 for hemoptysis. I talked to the patient with risk benefits explained for him and he agrees to resume his Eliquis which is ordered. Also he is on IV Lasix 60 mg twice daily and metolazone 5 mg. Creatinine 2.5 nephrology team following closely with consistent follow-up and he has been cleared for discharge Is also on oral vancomycin for C. difficile colitis, today's last dose. Diarrhea is improved no abdominal pain Tolerating his diet well. He also acute kidney injury on CKD stage IV, creatinine stable as above. Patient looks like cleared for discharge by nephrology ID team. Pulmonary team also following. Cleared for discharge Discussed with case picker pending placement arranged possible in 24 to 48 hours 09/29 Patient seen and examined by me at bedside He is doing clinically well. He is complaining from pain all over his body but not in distress. He has 2+ bilateral pitting leg edema He is currently on IV Lasix 60 mg twice daily which can switch to oral Breathing is stable He finished his last dose of oral vancomycin. Diarrhea improved for his C. difficile Patient clinically stable Discussed with social media content specialist for discharge pending placement 10/01 Patient continue to sit in chair both arms and legs joints also he has a bruise and erythema but more the lower extremity especially the left lower leg which is more warm and little bit more tender. His platelet count also dropped today to 41 and check the level later was 46. His platelet count is known to fluctuate between 40. Patient was started on aspirin 81 mg and also continued on his home dose of Eliquis. Given his extensive bruising and worsening from there is risk of more bleeding. Continue with IV Lasix and metolazone Also has not been prednisone 30 mg since 09/20 Active protein 6. Patient venous his dose of oral vancomycin, no worsening diarrhea. As per infectious disease team no need for any further systemic antibiotics for now Upon patient request will increase [place] 10 mg to every 4 Objective - Vital Signs Vital signs: Vital Signs Temp 97.5 F L 10/01/24 07:23 Pulse 78 10/01/24 12:14 Resp 16 10/01/24 07:23 BP 151/77 10/01/24 07:23 Pulse Ox 97 10/01/24 07:23 FiO2 Intake & Output 09/30/24 10/01/24 10/01/24 18:59 06:59 18:59 Intake Total 1000 480 Output Total 950 Balance 1000 -470 Weight 83 kg 83 kg Intake: Oral 1000 480 Output: Urine 950 Other: Voiding Method Toilet Urinal # Voids 3 2 - Exam -GENERAL: The patient is alert and oriented x3, not in any acute distress. Well developed, well nourished. Generally weak HEENT: Pupils are round and equally reacting to light. EOMI. No scleral icterus. No conjunctival pallor. Normocephalic, atraumatic. No pharyngeal erythema. No thyromegaly. CARDIOVASCULAR: S1 and S2 present. No murmurs, rubs, or gallops. PULMONARY: Chest is clear to auscultation, no wheezing , no crackles. ABDOMEN: Soft, nontender, nondistended, normoactive bowel sounds. No palpable organomegaly. MUSCULOSKELETAL: No joint swelling or deformity. EXTREMITIES: No cyanosis, clubbing, or pedal edema. NEUROLOGICAL: Gross neurological examination did not reveal any focal deficits. SKIN: No rashes. no petechiae. - Labs CBC & Chem 7: 10/01/24 10:30 10/01/24 05:11 Labs: Abnormal Lab Results - Last 24 Hours (Table) 09/30/24 09/30/24 10/01/24 Range/Units 17:02 21:28 05:11 WBC (4.50-10.00) X 10*3/uL RBC (4.40-5.60) X 10*6/uL Hgb (13.0-17.0) g/dL Hct (39.6-50.0) % MCH (27.0-32.0) pg MCHC (32.0-37.0) g/dL RDW (11.5-14.5) % Plt Count (140-440) X 10*3/uL Lymphocytes # (0.90-5.00) X 10*3/uL Monocytes # (0.20-1.00) X 10*3/uL Eosinophils # (0.04-0.35) X 10*3/uL Potassium 3.4 L (3.5-5.5) mmol/L Chloride 91 L (96-109) mmol/L Carbon Dioxide 32.0 H (21.6-31.8) mmol/L Anion Gap 16.00 H (4.00-12.00) mmol/L BUN 89.2 H (9.0-27.0) mg/dL Creatinine 2.4 H (0.6-1.5) mg/dL Est GFR (CKD-EPI) 28 L (>=60) BUN/Creatinine Ratio 37.17 H (12.00-20.00) Ratio Glucose 122 H (70-110) mg/dL POC Glucose (mg/dL) 210 H 206 H (70-110) mg/dL Calcium 8.1 L (8.7-10.3) mg/dL C-Reactive Protein 6.20 H (0.00-0.80) mg/dL 10/01/24 10/01/24 10/01/24 Range/Units 05:11 06:22 10:30 WBC 2.89 L 3.68 L (4.50-10.00) X 10*3/uL RBC 3.14 L 3.29 L (4.40-5.60) X 10*6/uL Hgb 8.1 L 8.7 L (13.0-17.0) g/dL Hct 26.9 L 28.2 L (39.6-50.0) % MCH 25.8 L 26.4 L (27.0-32.0) pg MCHC 30.1 L 30.9 L (32.0-37.0) g/dL RDW 18.8 H 18.6 H (11.5-14.5) % Plt Count 41 A* 46 L (140-440) X 10*3/uL Lymphocytes # 0.14 L 0.12 L (0.90-5.00) X 10*3/uL Monocytes # 0.10 L 0.11 L (0.20-1.00) X 10*3/uL Eosinophils # 0.01 L 0.02 L (0.04-0.35) X 10*3/uL Potassium (3.5-5.5) mmol/L Chloride (96-109) mmol/L Carbon Dioxide (21.6-31.8) mmol/L Anion Gap (4.00-12.00) mmol/L BUN (9.0-27.0) mg/dL Creatinine (0.6-1.5) mg/dL Est GFR (CKD-EPI) (>=60) BUN/Creatinine Ratio (12.00-20.00) Ratio Glucose (70-110) mg/dL POC Glucose (mg/dL) 130 H (70-110) mg/dL Calcium (8.7-10.3) mg/dL C-Reactive Protein (0.00-0.80) mg/dL 10/01/24 Range/Units 11:52 WBC (4.50-10.00) X 10*3/uL RBC (4.40-5.60) X 10*6/uL Hgb (13.0-17.0) g/dL Hct (39.6-50.0) % MCH (27.0-32.0) pg MCHC (32.0-37.0) g/dL RDW (11.5-14.5) % Plt Count (140-440) X 10*3/uL Lymphocytes # (0.90-5.00) X 10*3/uL Monocytes # (0.20-1.00) X 10*3/uL Eosinophils # (0.04-0.35) X 10*3/uL Potassium (3.5-5.5) mmol/L Chloride (96-109) mmol/L Carbon Dioxide (21.6-31.8) mmol/L Anion Gap (4.00-12.00) mmol/L BUN (9.0-27.0) mg/dL Creatinine (0.6-1.5) mg/dL Est GFR (CKD-EPI) (>=60) BUN/Creatinine Ratio (12.00-20.00) Ratio Glucose (70-110) mg/dL POC Glucose (mg/dL) 127 H (70-110) mg/dL Calcium (8.7-10.3) mg/dL C-Reactive Protein (0.00-0.80) mg/dL Assessment and Plan Assessment: 1. Acute bilateral lower lobe pneumonia/hospital-acquired pneumonia - Chest x-ray and CT chest reveals extensive consolidation of the right lung base. - was on IV Zosyn and azithromycin. Currently finished IV antibiotics - Blood cultures, sputum culture and Gram stain has been ordered -Continue his Eliquis 2. Acute on chronic hypoxic respiratory failure; currently on 15 L of oxygen by nasal cannula - Will plan to titrate or wean as able. Resolved and now at baseline - 3. Acute hypotension; rule out underlying sepsis and the patient is currently on low-dose norepinephrine. Resolved 4. Acute exacerbation COPD; patient has been placed on IV Solu-Medrol; bronchodilator nebulizer treatments 4 times daily and as needed 4. Chronic systolic heart failure. - Last echocardiogram showed impaired LV function with an ejection fraction of 35 to 40%, with moderate degree of aortic valve stenosis. He also has mild aortic dilatation at the level of the root measuring 41 mm in size. He has moderate RV dilatation, mild pulmonary hypertension. -Will continue with home diuretic therapy 5. Chronic atrial fibrillation, controlled rate, maintained on anticoagulation with Eliquis - Patient remains rate controlled on amiodarone 200 mg twice daily; continue home dose of beta-blockers 6. acute kidney injury on chronic stage III kidney disease; creatinine at baseline; monitor strict CHICO's, daily weights, renal function electrolyte; avoid nephrotoxins and hypotension Creatinine stable 2.5, nephrology on the case. For discharge. Continue with diuretics 7. History of implantation of permanent pacemaker. 8. History of hepatitis C/chronic liver disease/hepatocellular carcinoma. 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 Hepatocellular carcinoma. VTE prophylaxis; SCDs/systemic anticoagulation CODE STATUS; DNR
[2024-10-01 16:47] LABS: Glucose,Whole Blood 208 mg/dL (70-110)
--- NOTE | 2024-10-01 16:50 | P.PN ---
Subjective Progress Note Date: 10/01/24 Principal diagnosis: Reason for follow-up is C. difficile colitis Patient is a 74-year-old male with a past medical history significant for hypertension SD heart failure with COPD hepatocellular carcinoma/hepatitis C patient presenting to the hospital a on 09/13/2024 concerning for increasing shortness of breath along with A-fib with RVR there was a concern for pneumonia treated with Zosyn. On today's evaluation that is 10/01/2024,the patient remains to be afebrile, patient is on 4 L nasal cannula supplemental oxygen and complaining of some shortness of breath but no chest pain or cough.Patient denies having any nausea or vomiting, no abdominal pain and did have resolution of diarrhea circumventing of pain to the left lower extremity however overall redness is becoming more of a bruise like there is no open wound. Patient white count is 3.68 Objective - Vital Signs Vital signs: Vital Signs Temp 97.5 F L 10/01/24 07:23 Pulse 78 10/01/24 12:14 Resp 16 10/01/24 07:23 BP 151/77 10/01/24 07:23 Pulse Ox 97 10/01/24 07:23 FiO2 Intake & Output 09/30/24 10/01/24 10/01/24 18:59 06:59 18:59 Intake Total 1000 480 Output Total 950 Balance 1000 -470 Weight 83 kg 83 kg Intake: Oral 1000 480 Output: Urine 950 Other: Voiding Method Toilet Urinal # Voids 3 2 - Exam GENERAL DESCRIPTION: An elderly male up in the chair in no distress RESPIRATORY SYSTEM: Unlabored breathing , coarse breath sounds bilaterally HEART: S1 S2 regular rate and rhythm , ABDOMEN: Soft , no tenderness Left lower extremity seem to be more of a bruise than a cellulitis and has not spread from the line that was placed yesterday - Labs CBC & Chem 7: 10/01/24 10:30 10/01/24 05:11 Labs: Abnormal Lab Results - Last 24 Hours (Table) 09/30/24 09/30/24 10/01/24 Range/Units 17:02 21:28 05:11 WBC (4.50-10.00) X 10*3/uL RBC (4.40-5.60) X 10*6/uL Hgb (13.0-17.0) g/dL Hct (39.6-50.0) % MCH (27.0-32.0) pg MCHC (32.0-37.0) g/dL RDW (11.5-14.5) % Plt Count (140-440) X 10*3/uL Lymphocytes # (0.90-5.00) X 10*3/uL Monocytes # (0.20-1.00) X 10*3/uL Eosinophils # (0.04-0.35) X 10*3/uL Potassium 3.4 L (3.5-5.5) mmol/L Chloride 91 L (96-109) mmol/L Carbon Dioxide 32.0 H (21.6-31.8) mmol/L Anion Gap 16.00 H (4.00-12.00) mmol/L BUN 89.2 H (9.0-27.0) mg/dL Creatinine 2.4 H (0.6-1.5) mg/dL Est GFR (CKD-EPI) 28 L (>=60) BUN/Creatinine Ratio 37.17 H (12.00-20.00) Ratio Glucose 122 H (70-110) mg/dL POC Glucose (mg/dL) 210 H 206 H (70-110) mg/dL Calcium 8.1 L (8.7-10.3) mg/dL C-Reactive Protein 6.20 H (0.00-0.80) mg/dL 10/01/24 10/01/24 10/01/24 Range/Units 05:11 06:22 10:30 WBC 2.89 L 3.68 L (4.50-10.00) X 10*3/uL RBC 3.14 L 3.29 L (4.40-5.60) X 10*6/uL Hgb 8.1 L 8.7 L (13.0-17.0) g/dL Hct 26.9 L 28.2 L (39.6-50.0) % MCH 25.8 L 26.4 L (27.0-32.0) pg MCHC 30.1 L 30.9 L (32.0-37.0) g/dL RDW 18.8 H 18.6 H (11.5-14.5) % Plt Count 41 A* 46 L (140-440) X 10*3/uL Lymphocytes # 0.14 L 0.12 L (0.90-5.00) X 10*3/uL Monocytes # 0.10 L 0.11 L (0.20-1.00) X 10*3/uL Eosinophils # 0.01 L 0.02 L (0.04-0.35) X 10*3/uL Potassium (3.5-5.5) mmol/L Chloride (96-109) mmol/L Carbon Dioxide (21.6-31.8) mmol/L Anion Gap (4.00-12.00) mmol/L BUN (9.0-27.0) mg/dL Creatinine (0.6-1.5) mg/dL Est GFR (CKD-EPI) (>=60) BUN/Creatinine Ratio (12.00-20.00) Ratio Glucose (70-110) mg/dL POC Glucose (mg/dL) 130 H (70-110) mg/dL Calcium (8.7-10.3) mg/dL C-Reactive Protein (0.00-0.80) mg/dL 10/01/24 Range/Units 11:52 WBC (4.50-10.00) X 10*3/uL RBC (4.40-5.60) X 10*6/uL Hgb (13.0-17.0) g/dL Hct (39.6-50.0) % MCH (27.0-32.0) pg MCHC (32.0-37.0) g/dL RDW (11.5-14.5) % Plt Count (140-440) X 10*3/uL Lymphocytes # (0.90-5.00) X 10*3/uL Monocytes # (0.20-1.00) X 10*3/uL Eosinophils # (0.04-0.35) X 10*3/uL Potassium (3.5-5.5) mmol/L Chloride (96-109) mmol/L Carbon Dioxide (21.6-31.8) mmol/L Anion Gap (4.00-12.00) mmol/L BUN (9.0-27.0) mg/dL Creatinine (0.6-1.5) mg/dL Est GFR (CKD-EPI) (>=60) BUN/Creatinine Ratio (12.00-20.00) Ratio Glucose (70-110) mg/dL POC Glucose (mg/dL) 127 H (70-110) mg/dL Calcium (8.7-10.3) mg/dL C-Reactive Protein (0.00-0.80) mg/dL Assessment and Plan (1) C. difficile colitis Current Visit: Yes Status: Acute Code(s): A04.72 - ENTEROCOLITIS D/T CLOSTRIDIUM DIFFICILE, NOT SPCF RECUR SNOMED Code(s): 242036003 (2) Left leg swelling Current Visit: Yes Status: Acute Code(s): M79.89 - OTHER SPECIFIED SOFT TISSUE DISORDERS SNOMED Code(s): 924868005 Plan: 1patient presented to hospital with increasing shortness of breath which is likely multifactorial possible combination of fluid overload which could be related to his cardiac/renal condition and less likely pneumonia 2sputum culture x 2 has been negative patient has received adequate Zosyn during this hospital stay now with developing diarrhea and C. difficile Zosyn has been discontinued 3patient is afebrile noticed to have some worsening of his kidney function and the patient is being followed by nephrology 4patient remains to be afebrile patient mention improvement in his diarrhea we will continue with oral vancomycin to finish his 10-day course of therapy 5-patient noted to have increasing swelling redness of the left leg which seem to have shown some improvement and more like a bruise today and has not crossed the line I did discuss with the patient not behaving clinically as cellulitis and as he has just recovered from C. difficile we will hold on adding any further antibiotic therapy patient agreed nursing staff to reapply Vinny wrap Dictation was produced using [employer] dictation software. please excuse any grammatical, word or spelling errors. Time with Patient: Less than 30
[2024-10-01] MEDS: HYDROcodone/APAP 10-325MG 1 EACH TAB PO PRN (17:11)
[2024-10-01 20:00] LABS: Glucose,Whole Blood 237 mg/dL (70-110)
--- NOTE | 2024-10-01 23:39 | P.PN ---
Subjective Progress Note Date: 10/01/24 On 09/28/2024, the patient is being seen for a follow-up. In general, the patient is doing extremely poor. He is very weak and debilitated and he continues to have excessive edema in the lower extremities bilaterally. He continues to be short of breath even at rest. He is currently on IV Lasix 60 mg IV push every 12 hours. His oxygenation remained stable on 40 of oxygen by nasal cannula with a pulse ox of 91%. Chest x-ray from 09/23/2024 shows multifocal airspace opacities and blunting of the costophrenic angles consistent with pleural effusion. BUN is at 87 with a creatinine of 2.5. Electrolytes are stable with a serum bicarb of 30. Sodium levels at 136, potassium level is at 3.5, chloride is 93 with a bicarb of 30, and the patient is on oral vancomycin regarding C. difficile colitis. No nausea. No emesis. No significant abdominal pain. No other new complaints otherwise for now. On 09/29/2024, the patient is being seen for a follow-up. Condition essentially unchanged. Continues to have edema in the lower extremities bilaterally. The patient remains on IV Lasix and the patient is on a negative fluid balance of 2.5 L over the past 24 hours. The patient remains on 40 selection by nasal cannula. No new complaints otherwise for now. Oxygenation is also stable at 4 L. Medications remain unchanged. Remains on Symbicort, DuoNeb treatments [id number], and IV Lasix 60 mg every 12 hours. And Zaroxolyn 5 mg p.o. daily. He is also on prednisone burst taper currently at 30 mg p.o. daily. He remains on anticoagulation with Eliquis 2.5 mg twice a day and aspirin. Remains on amiodarone. Xanax on as-needed basis for increased anxiety. On 09/30/2024, the patient is being seen for a follow-up. Overall condition unchanged. Currently on 2 L of oxygen by nasal cannula with pulse ox of 95%. He remains on IV Lasix 60 mg every 12 hours. Continues to have some baseline shortness of breath. Renal function remained stable, with a BUN of 99 and a creatinine of 2.2. Electrolytes show a sodium level of 135, potassium is at 3.5, chloride is 90 with a bicarb of 37. Rest of medications unchanged. Nephrology on the case. Remains on anticoagulation with Eliquis. Remains on Zaroxolyn 5 mg p.o. daily. Prednisone as part of the burst taper and currently on 30 mg p.o. daily. Chronically debilitated and weak 10/01/2024, the patient is being seen for a follow-up. On today's evaluation, the patient remains on 4 L of oxygen by nasal cannula with a pulse ox of 98%. Patient is being seen by nephrology, medicine and infectious disease. Continues to have edema lower extremities bilaterally. No significant diarrhea. Creatinine stable at 2.4. Remains on IV Lasix. No chest pain. No pleurisy. No hemoptysis. Remains on oral vancomycin. Lasix is still on board and the patient is receiving Lasix 60 mg IV every 12 hours in combination with Zaroxolyn. The fluid balance is +530 cc over the past 24 hours. The hemoglobin is 8.7, with a white cell count of 3.6, platelet count is 46. Electrolytes show a BUN of 89 and a creatinine of 2.4. Sodium is at 139 and potassium levels are 3.4. Blood sugars at 237. The patient also has a CRP of 6.2. The patient is on oral vancomycin. No active diarrhea. ID is on the case. He has chronic pain maintained on [place] on an as-needed basis. He continues to have pancytopenia regarding his chronic liver disease. Maintained on anticoagulation with Eliquis. No hypotension. Remains on bronchodilators. Remains on steroids and the patient is currently on a prednisone burst taper. Objective - Vital Signs Vital signs: Vital Signs Temp 98.3 F 10/01/24 20:23 Pulse 80 10/01/24 22:20 Resp 16 10/01/24 20:23 BP 121/73 10/01/24 20:23 Pulse Ox 98 10/01/24 20:23 FiO2 Intake & Output 10/01/24 10/01/24 10/02/24 06:59 18:59 06:59 Intake Total 480 240 Output Total 950 900 Balance -470 -900 240 Weight 83 kg 83 kg Intake: Oral 480 240 Output: Urine 950 900 Other: Voiding Method Toilet Toilet Urinal Urinal # Voids 2 - Exam GENERAL EXAM: Alert, weak 74-year-old male, up in a chair, on 4 L nasal cannula, in no apparent distress. HEAD: Normocephalic. EYES: Normal reaction of pupils, equal size. NOSE: Clear with pink turbinates. THROAT: No erythema or exudates. NECK: No masses, no JVD. CHEST: No chest wall deformity. LUNGS: Equal air entry with bilateral scattered rhonchi, wheeze. CVS: S1 and S2 normal with no audible murmur, regular rhythm. ABDOMEN: No hepatosplenomegaly, normal bowel sounds, no guarding or rigidity. SPINE: No scoliosis or deformity SKIN: No rashes CENTRAL NERVOUS SYSTEM: No focal deficits, tone is normal in all 4 extremities. EXTREMITIES: There is 1-2+ peripheral edema. No clubbing, no cyanosis. Peripheral pulses are intact. - Labs CBC & Chem 7: 10/01/24 10:30 10/01/24 05:11 Labs: Abnormal Lab Results - Last 24 Hours (Table) 10/01/24 10/01/24 10/01/24 Range/Units 05:11 05:11 06:22 WBC 2.89 L (4.50-10.00) X 10*3/uL RBC 3.14 L (4.40-5.60) X 10*6/uL Hgb 8.1 L (13.0-17.0) g/dL Hct 26.9 L (39.6-50.0) % MCH 25.8 L (27.0-32.0) pg MCHC 30.1 L (32.0-37.0) g/dL RDW 18.8 H (11.5-14.5) % Plt Count 41 A* (140-440) X 10*3/uL Lymphocytes # 0.14 L (0.90-5.00) X 10*3/uL Monocytes # 0.10 L (0.20-1.00) X 10*3/uL Eosinophils # 0.01 L (0.04-0.35) X 10*3/uL Potassium 3.4 L (3.5-5.5) mmol/L Chloride 91 L (96-109) mmol/L Carbon Dioxide 32.0 H (21.6-31.8) mmol/L Anion Gap 16.00 H (4.00-12.00) mmol/L BUN 89.2 H (9.0-27.0) mg/dL Creatinine 2.4 H (0.6-1.5) mg/dL Est GFR (CKD-EPI) 28 L (>=60) BUN/Creatinine Ratio 37.17 H (12.00-20.00) Ratio Glucose 122 H (70-110) mg/dL POC Glucose (mg/dL) 130 H (70-110) mg/dL Calcium 8.1 L (8.7-10.3) mg/dL C-Reactive Protein 6.20 H (0.00-0.80) mg/dL 10/01/24 10/01/24 10/01/24 Range/Units 10:30 11:52 16:46 WBC 3.68 L (4.50-10.00) X 10*3/uL RBC 3.29 L (4.40-5.60) X 10*6/uL Hgb 8.7 L (13.0-17.0) g/dL Hct 28.2 L (39.6-50.0) % MCH 26.4 L (27.0-32.0) pg MCHC 30.9 L (32.0-37.0) g/dL RDW 18.6 H (11.5-14.5) % Plt Count 46 L (140-440) X 10*3/uL Lymphocytes # 0.12 L (0.90-5.00) X 10*3/uL Monocytes # 0.11 L (0.20-1.00) X 10*3/uL Eosinophils # 0.02 L (0.04-0.35) X 10*3/uL Potassium (3.5-5.5) mmol/L Chloride (96-109) mmol/L Carbon Dioxide (21.6-31.8) mmol/L Anion Gap (4.00-12.00) mmol/L BUN (9.0-27.0) mg/dL Creatinine (0.6-1.5) mg/dL Est GFR (CKD-EPI) (>=60) BUN/Creatinine Ratio (12.00-20.00) Ratio Glucose (70-110) mg/dL POC Glucose (mg/dL) 127 H 208 H (70-110) mg/dL Calcium (8.7-10.3) mg/dL C-Reactive Protein (0.00-0.80) mg/dL 10/01/24 Range/Units 19:59 WBC (4.50-10.00) X 10*3/uL RBC (4.40-5.60) X 10*6/uL Hgb (13.0-17.0) g/dL Hct (39.6-50.0) % MCH (27.0-32.0) pg MCHC (32.0-37.0) g/dL RDW (11.5-14.5) % Plt Count (140-440) X 10*3/uL Lymphocytes # (0.90-5.00) X 10*3/uL Monocytes # (0.20-1.00) X 10*3/uL Eosinophils # (0.04-0.35) X 10*3/uL Potassium (3.5-5.5) mmol/L Chloride (96-109) mmol/L Carbon Dioxide (21.6-31.8) mmol/L Anion Gap (4.00-12.00) mmol/L BUN (9.0-27.0) mg/dL Creatinine (0.6-1.5) mg/dL Est GFR (CKD-EPI) (>=60) BUN/Creatinine Ratio (12.00-20.00) Ratio Glucose (70-110) mg/dL POC Glucose (mg/dL) 237 H (70-110) mg/dL Calcium (8.7-10.3) mg/dL C-Reactive Protein (0.00-0.80) mg/dL Assessment and Plan Plan: Acute on chronic hypoxic respiratory failure secondary to an acute exacerbation of chronic systolic congestive heart failure, currently stable on 2 L of oxygen by nasal cannula Acute on chronic kidney injury, renal function is stable and the patient continu es to have volume overload and edema lower extremities maintained on IV Lasix and Zaroxolyn. The patient continues to produce adequate urine output. Renal function is stable and the patient is a negative fluid balance. Nephrology on the case. The creatinine remains stable and the patient remains on diuretics Chronic systolic congestive heart failure ejection fraction of 35 to 40% in addition patient has moderate severe aortic stenosis Chronic atrial fibrillation, rate controlled Severe underlying COPD FEV1 of 59% Chronic kidney disease stage IV secondary to nephrosclerosis History of pacemaker implantation History of hypertension History of hepatitis C Pancytopenia secondary to liver disease Parotid gland carcinoma History of hepatocellular carcinoma Plan: Essentially no change in his condition over the past 24 hours. Treatment remains unchanged. Patient is quite debilitated and his long-term prognosis is poor. Has had multiple hospitalization for decompensated heart failure, volume overload and acute on top of chronic hypoxic respiratory failure. Continue DuoNeb inhalations Continue Symbicort Continue prednisone taper, currently on 30 mg p.o. daily Remains on IV diuretics, currently on Lasix 60 mg IV push every 12 hours and the patient is also on Zaroxolyn 5 mg p.o. daily. Monitor fluid balance and urine output. Monitor electrolytes. Remains on fluid restrictions Remains on low-salt diet Nephrology is following Stable on 2 L nasal cannula Titrate the FiO2 as tolerated Increase his activity as tolerated Overall prognosis is poor DNR CODE STATUS The patient is considering hospice Will most likely need at least subacute rehabilitation at discharge
[2024-10-02 06:21] LABS: Glucose,Whole Blood 113 mg/dL (70-110)
[2024-10-02 07:47] VITALS: TEMP 97.9
[2024-10-02 11:46] LABS: Glucose,Whole Blood 117 mg/dL (70-110)
[2024-10-02 14:06] VITALS: BP 125/61; RESP 16
--- NOTE | 2024-10-02 15:09 | P.DS ---
Providers Date of admission: 09/13/24 02:38 Attending physician: Hillary Franks Consults: 09/13/24 02:38 Consult Physician Routine Consulting Provider: Sherman Tabares Consult Reason/Comments: pneumonia Do you want consulting provider notified?: Yes 09/14/24 12:51 Consult Physician Urgent Consulting Provider: Amy Scanlon Consult Reason/Comments: errol, ckd, chf, pna, worsening kidney functions Do you want consulting provider notified?: Yes 09/17/24 14:46 Consult Physician Urgent Consulting Provider: Shanell Johnson Consult Reason/Comments: pneumonia Do you want consulting provider notified?: Yes Primary care physician: Drew Medrano Hospital Course: Diagnoses: 1. Acute bilateral lower lobe pneumonia/hospital-acquired pneumonia, finished antibiotics. Resolved 2. Acute on chronic hypoxic respiratory failure; was on 15 L of oxygen by nasal cannula, - 3. Acute hypotension; rule out underlying sepsis and the patient is currently on low-dose norepinephrine. Resolved 4. Acute exacerbation COPD; patient has been placed on IV Solu-Medrol; bronchodilator nebulizer treatments 4 times daily and as needed 4. Chronic systolic heart failure. - Last echocardiogram showed impaired LV function with an ejection fraction of 35 to 40%, with moderate degree of aortic valve stenosis. He also has mild aortic dilatation at the level of the root measuring 41 mm in size. He has moderate RV dilatation, mild pulmonary hypertension. -Will continue with home diuretic therapy 5. Chronic atrial fibrillation, controlled rate, maintained on anticoagulation with Eliquis - Patient remains rate controlled on amiodarone 200 mg twice daily; continue home dose of beta-blockers 6. acute kidney injury on chronic stage III kidney disease; creatinine at baseline; monitor strict CHICO's, daily weights, renal function electrolyte; avoid nephrotoxins and hypotension Creatinine stable 2.5, nephrology on the case. For discharge. Continue with diuretics 7. History of implantation of permanent pacemaker. 8. History of hepatitis C/chronic liver disease/hepatocellular carcinoma. 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 Hepatocellular carcinoma. Hospital course: 74-year-old male patient with multiple medical problems and coming into the department having chest discomfort, cough, congestion and worsening shortness of breath. He is chronically debilitated and is willing more weak than usual. Patient was found to have multiple medical problems including acute CHF exacerbation with low ejection fraction 35 to 40% with moderate to severe aortic stenosis and acute hypoxic respiratory failure. Also he was treated with broad- spectrum antibiotics covering gram-negative bacilli and anaerobes for his b ilateral pneumonia, currently resolved. Also he had acute kidney injury on CKD which is improved and stable. His CKD is stage IV. He is status post permanent pacemaker for chronic atrial fibrillation. He has been followed byseveral consultants including pulmonary service, infectious disease team, visitor services specialist. His hospital course was complicated with C. difficile colitis and he finished 10-day course of oral vancomycin. Currently his diarrhea resolved and tolerates that well abdomen soft no chest pain or dyspnea no other new complaints He has been complaining from pain in all extremities most likely musculoskeletal also has developing multiple bruises from his pancytopenia. Patient had low platelet count which is chronic but yesterday dropped to 41 and then 46. Aspirin which was started by machine shop supervisor on admission was stopped as it was felt going to be high risk of bleeding and complications. While he is kept on his Eliquis renal dose of 2.5 mg twice daily This erythema in his both legs was checked by infectious disease, it does not sound infectious or cellulitis. Patient does not felt to need antibiotics per ID team given his recent history of C. difficile. Differential diagnosis include a bruise and ecchymosis secondary to thrombocytopenia and blood vessel abnormality versus erythema nodosum versus dermatitis. Very unlikely to be infectious etiology. We will switch Protonix to Pepcid upon discharge as well to see if this will help with his erythema. Also patient on the prednisone 30 mg will recommend quick taper every 4 days. Other than that patient has multiple medical problems. Hospice consult was recommended by pulmonary service for him. Also patient told the staff that he wants to talk to hospice team. Social work on the case this can be done as an outpatient as he is not actively deteriorating however I agree that his prognosis overall is very poor and he would benefit from more palliative approach He was cleared for discharge by all consultants as above including pulmonary infectious disease and visitor services specialist Problems and management plan were discussed with the patient and he verbalized understanding and acceptance Patient was found stable and can be discharged home in guarded prognosis however he needs follow-up as an outpatient. Patient was instructed to follow up with PCP Dr. Correia within one week and patient agrees We recommend patient follow-up with visitor services specialist Dr. Scanlon and hypnotherapist Dr. Pereira 1 to 3 weeks Physical exam Gen: patient is a AAOx3, no distress. Generally weak CVS: S1-S2, RRR, no murmur Lungs: B/L CTA, no wheezing Abdomen: soft, no distention, no tenderness, positive bowel sounds Extremity: no leg edema or induration Time spent more than 35 minutes Patient Condition at Discharge: Serious Plan - Discharge Summary Discharge Rx Participant: Yes New Discharge Prescriptions: New INSULIN LISPRO (HumaLOG) [HumaLOG] 0 unit SQ ACHS each Atorvastatin [Lipitor] 40 mg PO HS #0 tab Metoprolol Tartrate [Lopressor] 25 mg PO TID #0 tab predniSONE 10 mg PO DIRECTED #20 tab metOLazone [Zaroxolyn] 5 mg PO DAILY tab Amiodarone [Cordarone] 200 mg PO BID #0 tab Famotidine [Pepcid] 20 mg PO DAILY #30 tablet Continue Cholecalciferol [Vitamin D3 (25 Mcg = 1000 Iu)] 25 mcg PO DAILY Albuterol Inhaler [Ventolin Hfa Inhaler] 2 puff INHALATION RT-Q6H PRN PRN Reason: Shortness Of Breath Fluticasone Propion/Salmeterol [[place]ixela 500-50 Inhub] 1 puff INHALATION RT-BID Folic Acid 1 mg PO DAILY Ferrous Sulfate [Iron (65 MG Elemental)] 325 mg PO DAILY Naloxone HCl [Narcan] 4 mg NASAL DIRECTED PRN PRN Reason: Opioid Overdose Ipratropium-Albuterol Nebulize [Duoneb 0.5 mg-3 mg/3 ml Soln] 3 ml INHALATION RT-Q4H PRN each PRN Reason: shortness of breath predniSONE 5 mg PO DAILY Apixaban [Eliquis] 2.5 mg PO BID Tiotropium 2.5 Mcg/Puff [Spiriva Respimat 2.5 Mcg] 1 puff INHALATION RT-BID Multivit-Min/FA/Lycopen/Lutein [Centrum Silver Tablet] 1 tab PO DAILY ALPRAZolam [Xanax] 0.25 mg PO BID PRN 2 Days #4 tab PRN Reason: Anxiety Changed Furosemide [Lasix] 60 mg PO BID #0 HYDROcodone/APAP 10-325MG [[place] 10-325] 1 tab PO Q12H PRN 5 Days #10 tab PRN Reason: Pain Sennosides-Docusate Sodium [Senokot-S] 1 tab PO DAILY PRN #0 PRN Reason: Constipation Discontinued Colchicine 0.6 mg PO DAILY traZODone HCL [Desyrel] 50 mg PO HS Pantoprazole Sodium [Protonix] 20 mg PO DAILY Dapagliflozin Propanediol [Farxiga] 5 mg PO DAILY 10 Days #10 tab hydrALAZINE HCL [Apresoline] 25 mg PO TID #90 tab carvediloL [Coreg] 12.5 mg PO ACHS Discharge Medication List Tiotropium 2.5 Mcg/Puff [Spiriva Respimat 2.5 Mcg] 1 puff INHALATION RT-BID 01/14/23 [History] Cholecalciferol [Vitamin D3 (25 Mcg = 1000 Iu)] 25 mcg PO DAILY 02/11/23 [History] Multivit-Min/FA/Lycopen/Lutein [Centrum Silver Tablet] 1 tab PO DAILY 02/11/23 [History] Albuterol Inhaler [Ventolin Hfa Inhaler] 2 puff INHALATION RT-Q6H PRN 06/30/23 [History] Fluticasone Propion/Salmeterol [[place] 500-50 Inhub] 1 puff INHALATION RT-BID 01/14/24 [History] Ferrous Sulfate [Iron (65 MG Elemental)] 325 mg PO DAILY 02/06/24 [History] Folic Acid 1 mg PO DAILY 02/06/24 [History] Naloxone HCl [Narcan] 4 mg NASAL DIRECTED PRN 02/06/24 [History] Ipratropium-Albuterol Nebulize [Duoneb 0.5 mg-3 mg/3 ml Soln] 3 ml INHALATION RT-Q4H PRN each 02/07/24 [Rx] predniSONE 5 mg PO DAILY 07/04/24 [History] Apixaban [Eliquis] 2.5 mg PO BID 07/25/24 [History] ALPRAZolam [Xanax] 0.25 mg PO BID PRN 2 Days #4 tab 09/29/24 [Rx] Amiodarone [Cordarone] 200 mg PO BID #0 tab 09/29/24 [Rx] Atorvastatin [Lipitor] 40 mg PO HS #0 tab 09/29/24 [Rx] Furosemide [Lasix] 60 mg PO BID #0 09/29/24 [Rx] INSULIN LISPRO (HumaLOG) [HumaLOG] 0 unit SQ ACHS each 09/29/24 [Rx] Metoprolol Tartrate [Lopressor] 25 mg PO TID #0 tab 09/29/24 [Rx] Sennosides-Docusate Sodium [Senokot-S] 1 tab PO DAILY PRN #0 09/29/24 [Rx] Famotidine [Pepcid] 20 mg PO DAILY #30 tablet 10/02/24 [Rx] HYDROcodone/APAP 10-325MG [[place] 10-325] 1 tab PO Q12H PRN 5 Days #10 tab 10/02/24 [Rx] metOLazone [Zaroxolyn] 5 mg PO DAILY tab 10/02/24 [Rx] predniSONE 10 mg PO DIRECTED #20 tab 10/02/24 [Rx] Follow up Appointment(s)/Referral(s): Amy Scanlon MD [STAFF PHYSICIAN] - 1 Week Drew Medrano MD [Primary Care Provider] - 1-2 days [facility], [NON-STAFF] - 1 Week Sherman Tabares MD [STAFF PHYSICIAN] - 1 Week Activity/Diet/Wound Care/Special Instructions: Heart healthy diet Activity is r as tolerated Discharge Disposition: TRANSFER TO SNF/ECF
[2024-10-02 16:03] VITALS: PULSE 80
--- NOTE | 2024-10-02 16:17 | P.PN ---
Subjective Patient is seen for follow-up of chronic kidney disease and acute kidney injury. Currently on IV Lasix 60 mg every 12 hours Complaining of pain in bilateral lower extremities. Pain in legs may be slightly better. No significant diarrhea per patient. Serum creatinine at 2.4 mg/dL yesterday. Objective - Vital Signs Vital signs: Vital Signs Temp 97.9 F 10/02/24 07:05 Pulse 80 10/02/24 16:02 Resp 16 10/02/24 13:43 BP 125/61 10/02/24 13:43 Pulse Ox 95 10/02/24 13:43 FiO2 Intake & Output 10/01/24 10/02/24 10/02/24 18:59 06:59 18:59 Intake Total 480 240 Output Total 900 1225 Balance -900 -745 240 Weight 83 kg 82.7 kg Intake: Oral 480 240 Output: Urine 900 1225 Other: Voiding Method Toilet Urinal - Exam Patient is awake, comfortable, no acute distress Examination of the heart S1 and S2 Examination of the lungs decreased breath sounds at the bases occasional wheezing heard Abdomen is soft Examination lower extremity shows 1+ edema,decreasing, chronic skin changes, erythema noted bilaterally ENROLLMENT ADVISOR exam grossly intact - Labs CBC & Chem 7: 10/01/24 10:30 10/01/24 05:11 Labs: Abnormal Lab Results - Last 24 Hours (Table) 10/01/24 10/01/24 10/02/24 Range/Units 16:46 19:59 06:20 POC Glucose (mg/dL) 208 H 237 H 113 H (70-110) mg/dL 10/02/24 Range/Units 11:44 POC Glucose (mg/dL) 117 H (70-110) mg/dL Assessment and Plan Assessment: 1. Acute kidney injury secondary to ATN from hypotension and sepsis. Nonoligu sheree. UA shows trace protein and small blood, otherwise unremarkable. Ultrasound on 09/02/2024 did not show any evidence of obstruction. Renal function is stable 2. Acute on chronic hypoxic respiratory failure secondary to pneumonia and COPD exacerbation 3. Sepsis from pneumonia 4. Chronic kidney disease stage IV with baseline creatinine about 2.3 mg/dL secondary to nephrosclerosis 4. Cardiomyopathy with EF of 35 to 40% 5. Chronic A-fib 6. History of hepatitis C 7. History of hepatocellular carcinoma 8. C. difficile colitis 9. Cellulitis lower extremities, not significant per ID and mostly related to bruising. Trying to hold off on antibiotics due to C. difficile colitis. 10. Thrombocytopenia, possibly reactive Plan: Continue current dose of Lasix Repeat labs in a.m. Continue with oral vancomycin Avoid nephrotoxic agents
--- NOTE | 2024-10-03 09:47 | P.PN ---
Subjective Progress Note Date: 10/02/24 Principal diagnosis: Reason for follow-up is C. difficile colitis Patient is a 74-year-old male with a past medical history significant for hypertension NV heart failure with COPD hepatocellular carcinoma/hepatitis C patient presenting to the hospital a on 09/13/2024 concerning for increasing shortness of breath along with A-fib with RVR there was a concern for pneumonia treated with Zosyn. On today's evaluation that is 10/02/2024, the patient continues to be afebrile, the patient is on room air and breathing comfortably, the Pt denies having any chest pain or cough, the patient denies having any abdominal pain no vomiting or any diarrhea has been reported by the nursing staff patient been complaining of pain to the left lower extremity swelling and discoloration slightly decreased noticed to have a erythema to the left groin area however the patient is attri buting that to the diaper rash. No new labs obtained today his white count was 3.68 as of yesterday Objective - Vital Signs Vital signs: Vital Signs Temp 97.9 F 10/02/24 07:05 Pulse 76 10/02/24 15:51 Resp 16 10/02/24 13:43 BP 125/61 10/02/24 13:43 Pulse Ox 95 10/02/24 13:43 FiO2 Intake & Output 10/01/24 10/02/24 10/02/24 18:59 06:59 18:59 Intake Total 480 240 Output Total 900 1225 Balance -900 -745 240 Weight 83 kg 82.7 kg Intake: Oral 480 240 Output: Urine 900 1225 Other: Voiding Method Toilet Urinal - Exam GENERAL DESCRIPTION: An elderly male up in the chair in no distress RESPIRATORY SYSTEM: Unlabored breathing , coarse breath sounds bilaterally HEART: S1 S2 regular rate and rhythm , ABDOMEN: Soft , no tenderness Left lower extremity seem to be more of a bruise than a cellulitis and has not spread from the line, erythema noticed to the medial thigh area - Labs CBC & Chem 7: 10/01/24 10:30 10/01/24 05:11 Labs: Abnormal Lab Results - Last 24 Hours (Table) 10/01/24 10/01/24 10/02/24 Range/Units 16:46 19:59 06:20 POC Glucose (mg/dL) 208 H 237 H 113 H (70-110) mg/dL 10/02/24 Range/Units 11:44 POC Glucose (mg/dL) 117 H (70-110) mg/dL Assessment and Plan (1) C. difficile colitis Status: Acute Code(s): A04.72 - ENTEROCOLITIS D/T CLOSTRIDIUM DIFFICILE, NOT SPCF RECUR SNOMED Code(s): 727740452 (2) Left leg swelling Status: Acute Code(s): M79.89 - OTHER SPECIFIED SOFT TISSUE DISORDERS SNOMED Code(s): 346626416 (3) Cutaneous candidiasis Status: Acute Code(s): B37.2 - CANDIDIASIS OF SKIN AND NAIL SNOMED Code(s): 38008644 Plan: 1patient presented to hospital with increasing shortness of breath which is likely multifactorial possible combination of fluid overload which could be related to his cardiac/renal condition and less likely pneumonia 2sputum culture x 2 has been negative patient has received adequate Zosyn during this hospital stay now with developing diarrhea and C. difficile Zosyn has been discontinued 3patient is afebrile noticed to have some worsening of his kidney function and the patient is being followed by nephrology 4patient remains to be afebrile patient mention improvement in his diarrhea we will continue with oral vancomycin to finish his 10-day course of therapy 5-patient noted to have increasing swelling redness of the left leg which seem to have shown some improvement and more like a bruise and not behaving as c ellulitis this has been explained in detail with the patient again as he was insistent on getting antibiotics subsequently antibiotics has been offered however that would put him at risk of recurrence of his diarrhea and C. difficile colitis has the patient refused antibiotic at this point 6-he was noticed to have erythema to the left medial thigh area could be ascending cholangitis however the patient is attributing it to the diaper rash he will apply nystatin cream twice a day for about a week and see response Dictation was produced using [employer] software. please excuse any grammatical, word or spelling errors. Time with Patient: Less than 30
--- NOTE | 2024-10-05 22:33 | CDI ---
Documentation Clarification Form Date: 10/05/2024 10:14:33 PM From: Fidelina Barlow Phone: Admit Date: 09/13/2024 02:38:00 AM Patient Name: Chaitanya Morales Visit Number: [id number] Discharge Date: 10/02/2024 04:59:00 PM ATTENTION: The Clinical Documentation Specialists (CDI) and [facility] Coding Staff appreciate your assistance in clarifying documentation. Please respond to the clarification below the line at the bottom and electronically sign. The CDI & [facility] Coding staff will review the response and follow-up if needed. Please note: Queries are made part of the Legal Health Record. If you have any questions, please contact the author of this message via ITS. Doctor/Provider: Husam E Sheet Type II NSTEMI, multifactorial because of demand supply mismatch is documented Consult 09/13 which may lack sufficient clinical evidence/support in the medical record. Additional clarification is requested. History/Risk Factors: 74yo M, ATN, sepsis d/t gram PNA, ACHRF, AECOPD, CKD IV w anemia, ICM, CM, C. difficilecolitis, bruising, reactive thrombocytopenia, pancytopeniasecondary chronicliver disease, parotid gland Cx, Hx Hep C, Hxhepatocellular Cx, SSS w PM Clinical indicators: Troponin: 0.037 EKG: Ventricular rate 127, A-fib with RVR, QRS 107, QTc 400 Echo: LastoneshowedimpairedLV function with an EF of 35 to 40%, with moderate degree ofAS. He also has mild aorticdilatationat the level of the root measuring 41 mm in size. He has moderate RVdilatation, mildPHTN. Will continue with home diuretictherapy Treatment: Aspirin, Lipitor; On Eliquis 2.5 twice daily. Hold it for now in anticipation of therapeutic leftthoracentesis. If no plan, resume Eliquis. Consult pulmonary. Discontinue amiodarone drip. Start amiodarone 200 mg twice daily. Continue until09/21/2024, thereafterreducedose. Change beta-mt to metoprolol 25 twice daily. Lasix 40 IV twice daily. Monitor kidney function electrolytes. Farxiga only when patient starts eatingfood. Hold hydralazine because of borderline BP. After work up and study, please which diagnosis is most appropriate? [ x] Type II AR is a valid diagnosis as evidenced by the following: [ ] Type II AR ruled out [ ] Elevated troponin due to [ ] Other, please specify [ ] Unable to determine Reference: [employer] Fourth [place] Definition of Myocardial Infraction Type II AR is indicated when an acute myocardial injury in the setting of an abnormal troponin with a rise and fall and clinical indicators suggestive of an imbalance between myocardial oxygen supply demand with acute myocardial ischemia unrelated to coronary thrombosis as evidenced by one of the following: Symptoms of myocardial ischemia New ischemic ECG changes Development of pathological Q waves Imaging evidence of new loss of viable myocardium or new regional wall motion abnormality in a pattern consistent with an ischemic etiology (Template Last Revised: April 2023) MTDD
--- NOTE | 2024-10-05 22:43 | CDI ---
Documentation Clarification Form Date: 10/05/2024 10:36:05 PM From: Fidelina Barlow Phone: Admit Date: 09/13/2024 02:38:00 AM Patient Name: Chaitanya Morales Visit Number: [id number] Discharge Date: 10/02/2024 04:59:00 PM ATTENTION: The Clinical Documentation Specialists (CDI) and [facility] Coding Staff appreciate your assistance in clarifying documentation. Please respond to the clarification below the line at the bottom and electronically sign. The CDI & [facility] Coding staff will review the response and follow-up if needed. Please note: Queries are made part of the Legal Health Record. If you have any questions, please contact the author of this message via ITS. Doctor/Provider: Husam E Sheet Metabolicencephalopathy is documented Consult 09/13 which may lack sufficient clinical evidence/support in the medical record. Additional clarification is requested. Patient history/risk factors: 74yo M, ATN, sepsis d/t gram PNA, ACHRF, AECOPD, CKD IV w anemia, ICM, CM, C. difficile colitis, bruising, reactive thrombocytopenia, pancytopenia secondary chronic liver disease, parotid gland Cx, Hx Hep C, Hx hepatocellular Cx, SSS w PM, elevated troponin Clinical Indicators: CT/MRI Brain: Presented to the hospital because of worseningdyspnea. On admission wasA-fib RVR. Chest x-rayalso showspossibleconcerns ofright lower lobe infiltrate suggestive ofpneumoniaand concerns ofsevere sepsis. He also appears to have mildconfusionsuggestive ofmildmetabolic encephalopathyon admission which is multifactorial. Admission Vitals: 111/72, heart rate 113 Admission Labs: Hb 11.9, platelets 142, BUN 64, creatinine 2.7, troponin 0.03, NT-proBNP 26,000.Baseline creatinine around 2.3 Treatment: monitored After work up and study, please clarify which diagnosis is most appropriate? [ x] Metabolic Encephalopathy ruled out [ ] Metabolic Encephalopathy is a valid diagnosis as evidenced by the following: [ ] Delirium [ ] Unable to determine [ ] Other, please specify (Template Last Revised: April 2023) MTDD
== END 2024-10-02 16:59 | DRG 871 ==
LOC: EC 00:52 → 3SCARD 02:38 → 2SICU 03:49 → 3SCARD 09-15 15:03 → 4SSUR 09-22 22:07
PROVIDERS: ADMIT Hospitalist; ATTEND Hospitalist
PROC: 3E033XZ Introduction of Vasopressor into Peripheral Vein, Percutaneous Approach (ICD-10-PCS; principal; 2024-09-13)
DX: A41.50 Gram-negative sepsis, unspecified (principal); I21.A1 Myocardial infarction type 2; I50.23 Acute on chronic systolic (congestive) heart failure; J96.21 Acute and chronic respiratory failure with hypoxia; J18.9 Pneumonia, unspecified organism; N17.0 Acute kidney failure with tubular necrosis; J15.69 Pneumonia due to other Gram-negative bacteria; C22.0 Liver cell carcinoma; Z66 Do not resuscitate; A04.72 Enterocolitis due to Clostridium difficile, not specified as recurrent; D61.818 Other pancytopenia; I13.0 Hypertensive heart and chronic kidney disease with heart failure and stage 1 through stage 4 chronic kidney disease, or unspecified chronic kidney disease; J44.0 Chronic obstructive pulmonary disease with (acute) lower respiratory infection; N18.4 Chronic kidney disease, stage 4 (severe); I27.22 Pulmonary hypertension due to left heart disease; I35.0 Nonrheumatic aortic (valve) stenosis; I77.819 Aortic ectasia, unspecified site; D63.1 Anemia in chronic kidney disease; I48.19 Other persistent atrial fibrillation; J44.1 Chronic obstructive pulmonary disease with (acute) exacerbation; R04.2 Hemoptysis; I49.5 Sick sinus syndrome; R65.20 Severe sepsis without septic shock; R16.1 Splenomegaly, not elsewhere classified; L22 Diaper dermatitis; S80.12XA Contusion of left lower leg, initial encounter; B37.2 Candidiasis of skin and nail; E61.1 Iron deficiency; F41.9 Anxiety disorder, unspecified; I25.10 Atherosclerotic heart disease of native coronary artery without angina pectoris; T38.0X5A Adverse effect of glucocorticoids and synthetic analogues, initial encounter; Y95 Nosocomial condition; R54 Age-related physical debility; I25.5 Ischemic cardiomyopathy; Z99.81 Dependence on supplemental oxygen; Z79.01 Long term (current) use of anticoagulants; Z79.899 Other long term (current) drug therapy; Z79.52 Long term (current) use of systemic steroids; Z79.51 Long term (current) use of inhaled steroids; Z79.84 Long term (current) use of oral hypoglycemic drugs; Z85.05 Personal history of malignant neoplasm of liver; Z85.818 Personal history of malignant neoplasm of other sites of lip, oral cavity, and pharynx; Z85.828 Personal history of other malignant neoplasm of skin; Z87.891 Personal history of nicotine dependence; Z92.3 Personal history of irradiation; Z95.0 Presence of cardiac pacemaker; I25.2 Old myocardial infarction; Z86.19 Personal history of other infectious and parasitic diseases
CPT/HCPCS: 36415; 71045; 71250; 74018; 74230; 80048; 80053; 81001; 82728; 83036; 83540; 83550; 83605; 83735; 83880; 84132; 84484; 85025; 85610; 85730; 86140; 87040; 87070; 87205; 87324; 87449; 87636; 93005; 94640; 94760; 96365; 96366; 96367; 96375; 99285

== ENCOUNTER 2024-10-08 01:08 | Observation (INO) | payer OTHER, MEDICARE ==
--- NOTE | 2024-10-08 02:10 | ED ---
General Adult HPI - General Chief complaint: Recheck/Abnormal Lab/Rx Stated complaint: Abn labs Time Seen by Provider: 10/08/24 01:17 Source: patient, EMS Mode of arrival: EMS Limitations: no limitations - History of Present Illness Initial comments: Patient is a pleasant 74-year-old gentleman with past medical history of atrial fibrillation on Eliquis and amiodarone, CHF, lower extremity cellulitis, chronic hypoxic respiratory failure on 4 L oxygen nasal cannula presenting today for lab abnormalities, drawn earlier today. Patient presenting from [facility]. His BUN was reportedly 146. Patient currently denies chest pain, shortness of breath, fevers, nausea or vomiting. He states he has bilateral lower extremity wounds. He is not entirely sure why he is here, he states that when he was recently admitted for 3 weeks "they could not figure out what was wrong". Patient is oriented x 4 and denies feelings of confusion. - Related Data Home Medications Medication Instructions Recorded Confirmed Tiotropium 2.5 Mcg/Puff [Spiriva 1 puff INHALATION RT-BID 01/14/23 09/13/24 Respimat 2.5 Mcg] Cholecalciferol [Vitamin D3 (25 25 mcg PO DAILY 02/11/23 09/13/24 Mcg = 1000 Iu)] Multivit-Min/FA/Lycopen/Lutein 1 tab PO DAILY 02/11/23 09/13/24 [Centrum Silver Tablet] Albuterol Inhaler [Ventolin Hfa 2 puff INHALATION RT-Q6H PRN 06/30/23 09/13/24 Inhaler] Fluticasone Propion/Salmeterol 1 puff INHALATION RT-BID 01/14/24 09/13/24 [Wixela 500-50 Inhub] Ferrous Sulfate [Iron (65 MG 325 mg PO DAILY 02/06/24 09/13/24 Elemental)] Folic Acid 1 mg PO DAILY 02/06/24 09/13/24 Naloxone HCl [Narcan] 4 mg NASAL DIRECTED PRN 02/06/24 09/13/24 predniSONE 5 mg PO DAILY 07/04/24 09/13/24 Apixaban [Eliquis] 2.5 mg PO BID 07/25/24 09/13/24 Previous Rx's Medication Instructions Recorded Ipratropium-Albuterol Nebulize 3 ml INHALATION RT-Q4H PRN each 02/07/24 [Duoneb 0.5 mg-3 mg/3 ml Soln] ALPRAZolam [Xanax] 0.25 mg PO BID PRN 2 Days #4 tab 09/29/24 Amiodarone [Cordarone] 200 mg PO BID #0 tab 09/29/24 Atorvastatin [Lipitor] 40 mg PO HS #0 tab 09/29/24 Furosemide [Lasix] 60 mg PO BID #0 09/29/24 INSULIN LISPRO (HumaLOG) [HumaLOG] 0 unit SQ ACHS each 09/29/24 Metoprolol Tartrate [Lopressor] 25 mg PO TID #0 tab 09/29/24 Sennosides-Docusate Sodium 1 tab PO DAILY PRN #0 09/29/24 [Senokot-S] ALPRAZolam [Xanax] 0.25 mg PO BID PRN #4 tab 10/02/24 Famotidine [Pepcid] 20 mg PO DAILY #30 tablet 10/02/24 HYDROcodone/APAP 10-325MG [[place] 1 tab PO Q12H PRN 5 Days #10 tab 10/02/24 10-325] Nystatin 100,000Unit/gm Cream 1 applic TOPICAL TID #60 gm 10/02/24 [Mycostatin Cream] metOLazone [Zaroxolyn] 5 mg PO DAILY tab 10/02/24 predniSONE 10 mg PO DIRECTED #20 tab 10/02/24 Allergies Allergy/AdvReac Type Severity Reaction Status Date / Time allopurinol AdvReac Gout Verified 09/13/24 14:13 atenolol AdvReac Fatigue,Bra Verified 09/13/24 14:13 dycardia doxazosin AdvReac Delerium,Di Verified 09/13/24 14:13 zziness hydralazine AdvReac Unknown Verified 09/13/24 14:13 lisinopril AdvReac Cough Verified 09/13/24 14:13 metoprolol [From Lopressor] AdvReac Chest Pain Verified 09/13/24 14:13 omalizumab [From Xolair] AdvReac urticaria Verified 09/13/24 14:13 Review of Systems ROS Statement: Those systems with pertinent positive or pertinent negative responses have been documented in the HPI. ROS Other: All systems not noted in ROS Statement are negative. 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 Hospitalized last week for CHF & Pneumonia. Irr. heart rate @ times. liver cancer Last Myocardial Infarction Date:: 2022 History of Any Multi-Drug Resistant Organisms: None Reported Past Surgical History: Back Surgery, Heart Catheterization, Hernia Repair, Orthopedic Surgery, Pacemaker Additional Past Surgical History / Comment(s): liver ablation done at [place] for tx of hepatocellular carcinoma,hemorrhoids ,back surgery, cataract, skin cancer, inguinal hernia, abdominal hernia, left shoulder, right wrist, growth removed vocal cord, PAROTID GLAND REMOVED DUE TO CANCER. Past Anesthesia/Blood Transfusion Reactions: No Reported Reaction Additional Past Anesthesia/Blood Transfusion Reaction / Comment(s): no hx blood transfusion Type of Cardiac Device: Permanent Pacemaker Device Placement Date:: 01/20/24 Past Psychological History: No Psychological Hx Reported Smoking Status: Former smoker Past Alcohol Use History: None Reported Past Drug Use History: None Reported - Past Family History Father Family Medical History: Cancer General Exam - General Exam Comments Initial Comments: PE: CONSTITUTIONAL: No apparent distress, chronically ill-appearing, nontoxic SKIN: Warm, dry, no jaundice, hives or petechiae, bilateral circumferential erythema of the distal lower extremities, scant yellow exudate on bilateral lower extremity wounds, wrapped in clean dry dressings EYES: Pupils are equally round, extraocular movements intact without nystagmus, clear conjunctiva, non-icteric sclera HENT: Normocephalic, atraumatic, dry mucus membranes, oropharynx clear without exudates NECK: , Full range of motion, normal appearance PULMONARY: Clear to auscultation without wheezes, rhonchi, or rales, normal excursion, no accessory muscle use and no stridor CARDIOVASCULAR: Regular rate, rhythm, normal S1 and S2. No appreciated murmurs, rubs or gallops. Strong radial pulses with intact distal perfusion. 2+ bilateral lower extremity edema of the dorsal aspects of the feet GASTROINTESTINAL: Soft, active bowel sounds throughout, non-tender, non-diste nded, no palpable masses, no rebound or guarding. No hepatosplenomegaly GENITOURINARY: MUSCULOSKELETAL: Extremities have no gross deformity, no additional edema w/ exception as noted above, or swelling. NEUROLOGIC:_a/o x 3, GCS 15, normal mentation and speech. Moves all extremities x 4 without motor or sensory deficit PSYCHIATRIC:_normal mood and affect, thought process is clear and linear Limitations: no limitations Course Vital Signs 10/08/24 10/08/24 10/08/24 01:09 02:05 03:40 Temperature 98.0 F Pulse Rate 98 92 88 Respiratory 18 16 18 Rate Blood Pressure 106/76 110/68 106/61 O2 Sat by Pulse 95 95 Oximetry 10/08/24 10/08/24 04:35 05:31 Temperature Pulse Rate 92 89 Respiratory 16 16 Rate Blood Pressure 127/68 128/78 O2 Sat by Pulse 94 L Oximetry EKG Findings - EKG Comments: EKG Findings:: Atrial fibrillation, rate 90 bpm, VPC, prolonged QT interval, QT/QTc 425/472, left anterior fascicular block, artifact present limiting interpretation though no significant ST elevations or depressions Medical Decision Making - Medical Decision Making Was pt. sent in by a medical professional or institution (, PA, AUTOMOBILE LOCATOR, urgent care, hospital, or detention...) When possible be specific @[facility] Did you speak to anyone other than the patient for history (EMS, parent, family, police, friend...)? What history was obtained from this source @ -No Did you review nursing and triage notes (agree or disagree)? Why? @ -I reviewed nursing and triage notes Were old charts reviewed (outside hosp., previous admission, EMS record, old EKG, old radiological studies, urgent care reports/EKG's, detention records)? Report findings @ -Medical records reviewed reviewed progress note from nephrology during patient's recent admission on 09/13/2024, note from 10/02/24 day of discharge, patient was being evaluated for CKD with LOND[place], at time of discharge creatinine was 2.4, patient was being kept on 60 mg IV Lasix every 12 hours. At time of discharge nephrology recommended continuing patient's dose of current dose of Lasix and avoiding nephrotoxic agents Differential Diagnosis (chest pain, altered mental status, abdominal pain women, abdominal pain men, vaginal bleeding, weakness, fever, dyspnea, syncope, headache, dizziness, GI bleed, back pain, seizure, CVA, palpatations, mental health, musculoskeletal)? @Differential diagnosis remains broad over top considerations include EKG interpreted by me (3pts min.). @ -As above X-rays interpreted by me (1pt min.). @ -None done CT interpreted by me (1pt min.). @ -None done U/S interpreted by me (1pt. min.). @ -None done What testing was considered but not performed or refused? (CT, X-rays, U/S, labs)? Why? @ -None What meds were considered but not given or refused? Why? @IV fluids were considered however on chart review it appears nephrology was recommended diuresis to improve his kidney function during recent admit, so will continue with lasix Did you discuss the management of the patient with other professionals (professionals i.e. , PA, AUTOMOBILE LOCATOR, lab, RT, psych nurse, neonatal social worker, facsimile operator, teacher, air support control officer, case reviewer)? Give summary @ -No Was smoking cessation discussed for >3mins.? @ -No Was critical care preformed (if so, how long)? @ -No Were there social determinants of health that impacted care today? How? (Homelessness, low income, unemployed, alcoholism, drug addiction, transportation, low edu. Level, literacy, decrease access to med. care, intermediate, rehab)? @ -No Was there de-escalation of care discussed even if they declined (Discuss DNR or withdrawal of care, Hospice)? @ -No What co-morbidities impacted this encounter? (DM, HTN, Smoking, COPD, CAD, Cancer, CVA, ARF, Chemo, Hep., AIDS, mental health diagnosis, sleep apnea, morbid obesity)? @ -COPD, CHF, atrial fibrillation Was patient admitted / discharged? Hospital course, mention meds given and route, prescriptions, significant lab abnormalities, going to OR and other pertinent info. @ -Admission- This is a pleasant 74-year-old gentleman with a past medical history of hepatitis C, chronic respiratory failure, CKD stage III, COPD, recent admission for pneumonia and [place], cardiomyopathy, sick sinus syndrome, CHF presenting from the [facility] for elevated BUN on outpatient labs. On my assessment patient is well-appearing in no acute distress, he is AO x 4 and conversant. Vital signs are stable on arrival. Exam was significant for 1-2+ pitting edema at the dorsal aspects of the feet as well as chronic appearing lower extremity wounds circumferentially around the distal lower extremities and clean freshly changed bandages. Patient currently denies complaints. Plan for repeat labs and admission for nephrology consultation. Labs significant for a BUN of 150, creatinine 3.04, GFR of 19, sodium 132, potassium 3.2, chloride 86, bicarb 33, pancytopenia, of note during patient's most recent visit pancytopenia was attributed to hepatitis C. Given peripheral edema and elevated BUN we will give 60 mg IV Lasix. Will replace patient's potassium. Updated pt to findings and POC. Pt initially resistant to admission, however discussed with him that [facility] is unlikely to accept pt back without further treatment of his elevated BUN and discussed importance of admission for nephrology consult and to ensure improvement in kidney function and labs. Pt understanding. Additionally, of note, pt did mention he is considering hospice but is not yet ready to make that decision. Case discussed with Dr. Davis who kindly accepted patient for admission Undiagnosed new problem with uncertain prognosis? @ -No Drug Therapy requiring intensive monitoring for toxicity (Heparin, Nitro, Insulin, Cardizem)? @ -No Were any procedures done? @ -No Diagnosis/symptom? @ -Uremia, LONDON on CKD, hypokalemia Acute, or Chronic, or Acute on Chronic? @ -acute, acute on chronic Uncomplicated (without systemic symptoms) or Complicated (systemic symptoms)? @ complicated Side effects of treatment? @ -No Exacerbation, Progression, or Severe Exacerbation? @ -No Poses a threat to life or bodily function? How? (Chest pain, USA, ID, pneumonia, PE, COPD, DKA, ARF, appy, cholecystitis, CVA, Diverticulitis, Homicidal, Suicidal, threat to staff... and all critical care pts) @potentially - Lab Data Result diagrams: 10/08/24 01:31 10/08/24 01:31 Lab Results 10/08/24 10/08/24 10/08/24 Range/Units 01: 01:31 01:31 WBC 1.61 L (4.50-10.00) 10*3/uL RBC 3.22 L (4.40-5.60) 10*6/uL Hgb 8.7 L (13.0-17.0) g/dL Hct 27.0 L (39.6-50.0) % MCV 83.9 (80.0-97.0) fL MCH 27.0 (27.0-32.0) pg MCHC 32.2 (32.0-37.0) g/dL Plt Count 53 L (140-440) 10*3/uL Immature Gran % (Auto) 0.6 % Neutrophils % 81.4 % Lymphocytes % 9.3 % Monocytes % 5.0 % Eosinophils % 3.1 % Basophils % 0.6 % Immature Gran # 0.01 (0.00-0.04) 10*3/uL Neutrophils # 1.31 L (1.80-7.70) 10*3/uL Lymphocytes # 0.15 L (0.90-5.00) 10*3/uL Monocytes # 0.08 L (0.20-1.00) 10*3/uL Eosinophils # 0.05 (0.04-0.35) 10*3/uL Basophils # 0.01 (0.00-0.10) 10*3/uL PT 13.6 H (10.0-12.5) sec INR 1.3 H (<1.2) APTT 30.9 H (22.0-30.0) sec Sodium 132 L (137-145) mmol/L Potassium 3.2 L (3.5-5.1) mmol/L Chloride 86 L (98-107) mmol/L Carbon Dioxide 33 H (22-30) mmol/L Anion Gap 13 mmol/L BUN 150 H* (9-20) mg/dL Creatinine 3.04 H (0.66-1.25) mg/dL Est GFR (CKD-EPI)AfAm 22 (>60 ml/min/1.73 sqM) Est GFR (CKD-EPI)NonAf 19 (>60 ml/min/1.73 sqM) Glucose 91 (74-99) mg/dL Calcium 8.6 (8.4-10.2) mg/dL Magnesium 2.1 (1.6-2.3) mg/dL Total Bilirubin 1.4 H (0.2-1.3) mg/dL AST 31 (17-59) U/L ALT 21 (4-49) U/L Alkaline Phosphatase 103 (38-126) U/L Total Protein 5.6 L (6.3-8.2) g/dL Albumin 3.0 L (3.5-5.0) g/dL Urine Color Urine Appearance (Clear) Urine pH (5.0-8.0) Ur Specific [place] (1.001-1.035) Urine Protein (Negative) Urine Glucose (UA) (Negative) Urine Ketones (Negative) Urine Blood (Negative) Urine Nitrite (Negative) Urine Bilirubin (Negative) Urine Urobilinogen (<2.0) mg/dL Ur Leukocyte Esterase (Negative) Urine RBC (0-5) /hpf Urine WBC (0-5) /hpf Urine Bacteria (None) /hpf Urine Mucus (None) /hpf Urine Yeast (Budding) (None) /hpf 10/08/24 Range/Units 04:35 WBC (4.50-10.00) 10*3/uL RBC (4.40-5.60) 10*6/uL Hgb (13.0-17.0) g/dL Hct (39.6-50.0) % MCV (80.0-97.0) fL MCH (27.0-32.0) pg MCHC (32.0-37.0) g/dL Plt Count (140-440) 10*3/uL Immature Gran % (Auto) % Neutrophils % % Lymphocytes % % Monocytes % % Eosinophils % % Basophils % % Immature Gran # (0.00-0.04) 10*3/uL Neutrophils # (1.80-7.70) 10*3/uL Lymphocytes # (0.90-5.00) 10*3/uL Monocytes # (0.20-1.00) 10*3/uL Eosinophils # (0.04-0.35) 10*3/uL Basophils # (0.00-0.10) 10*3/uL PT (10.0-12.5) sec INR (<1.2) APTT (22.0-30.0) sec Sodium (137-145) mmol/L Potassium (3.5-5.1) mmol/L Chloride (98-107) mmol/L Carbon Dioxide (22-30) mmol/L Anion Gap mmol/L BUN (9-20) mg/dL Creatinine (0.66-1.25) mg/dL Est GFR (CKD-EPI)AfAm (>60 ml/min/1.73 sqM) Est GFR (CKD-EPI)NonAf (>60 ml/min/1.73 sqM) Glucose (74-99) mg/dL Calcium (8.4-10.2) mg/dL Magnesium (1.6-2.3) mg/dL Total Bilirubin (0.2-1.3) mg/dL AST (17-59) U/L ALT (4-49) U/L Alkaline Phosphatase (38-126) U/L Total Protein (6.3-8.2) g/dL Albumin (3.5-5.0) g/dL Urine Color Colorless Urine Appearance Clear (Clear) Urine pH 6.5 (5.0-8.0) Ur Specific [place] 1.010 (1.001-1.035) Urine Protein Negative (Negative) Urine Glucose (UA) Negative (Negative) Urine Ketones Negative (Negative) Urine Blood Small H (Negative) Urine Nitrite Negative (Negative) Urine Bilirubin Negative (Negative) Urine Urobilinogen <2.0 (<2.0) mg/dL Ur Leukocyte Esterase Trace H (Negative) Urine RBC 9 H (0-5) /hpf Urine WBC 4 (0-5) /hpf Urine Bacteria Rare H (None) /hpf Urine Mucus Rare H (None) /hpf Urine Yeast (Budding) Few H (None) /hpf Disposition Clinical Impression: Uremia, Acute on chronic renal failure Disposition: ADMITTED IP TO THIS [facility] Condition: Stable
[2024-10-08 02:13] LABS: Basophils # (A) 0.01 10*3/uL (0.00-0.10); Basophils % (A) 0.6 %; Eosinophils # (A) 0.05 10*3/uL (0.04-0.35); Eosinophils % (A) 3.1 %; HCT 27.0 % (39.6-50.0); HGB 8.7 g/dL (13.0-17.0); Lymphocytes # (A) 0.15 10*3/uL (0.90-5.00); Lymphocytes % (A) 9.3 %; MCH 27.0 pg (27.0-32.0); MCHC 32.2 g/dL (32.0-37.0); MCV 83.9 fL (80.0-97.0); Monocytes # (A) 0.08 10*3/uL (0.20-1.00); Monocytes % (A) 5.0 %; Neutrophils # (A) 1.31 10*3/uL (1.80-7.70); Neutrophils % (A) 81.4 %; RBC 3.22 10*6/uL (4.40-5.60); RDW 20.8 % (11.5-14.5); WBC 1.61 10*3/uL (4.50-10.00)
[2024-10-08 02:26] LABS: Platelet Count 53 10*3/uL (140-440)
[2024-10-08 02:33] LABS: ALT 21 U/L (4-49); AST 31 U/L (17-59); African American GFR (CKD) 22 (>60 ml/min/1.73 sqM); Albumin 3.0 g/dL (3.5-5.0); Alkaline Phosphatase 103 U/L (38-126); Anion Gap 13 mmol/L; Calcium 8.6 mg/dL (8.4-10.2); Carbon Dioxide 33 mmol/L (22-30); Chloride 86 mmol/L (98-107); Glucose 91 mg/dL (74-99); Magnesium 2.1 mg/dL (1.6-2.3); Non-African American GFR(CKD) 19 (>60 ml/min/1.73 sqM); Potassium 3.2 mmol/L (3.5-5.1); Sodium 132 mmol/L (137-145); Total Protein 5.6 g/dL (6.3-8.2)
[2024-10-08 02:41] LABS: INR 1.3 (<1.2); Partial Thromboplastin Time 30.9 sec (22.0-30.0); Prothrombin Time 13.6 sec (10.0-12.5)
[2024-10-08 02:48] LABS: Blood Urea Nitrogen 150 mg/dL (9-20)
[2024-10-08] MEDS ORDERED: SENNOSIDES-DOCUSATE SODIUM 1 EACH TAB PO PRN (03:42)
[2024-10-08] MEDS ORDERED: NON FORMULARY DRUG (Naloxone Hcl [Narcan] 4 MG Each) NASAL PRN (03:42)
[2024-10-08] MEDS ORDERED: NON FORMULARY DRUG (Naloxone Hcl [Narcan] 4 MG Each) EA NOSTRIL PRN (04:15)
[2024-10-08] MEDS: POTASSIUM BICARBONATE/CIT AC 20 MEQ TABLET.EFF PO ONE (04:33)
[2024-10-08] MEDS: FUROSEMIDE 10 MG/ML 10 ML VIAL IV STA (04:33)
[2024-10-08 04:58] LABS: Bacteria,Urine Rare /hpf; Bilirubin,Urine Negative (Negative); Blood,Urine Small (Negative); Budding Yeast,Urine Few /hpf; Color,Urine Colorless; Glucose,Urine (UA) Negative (Negative); Ketones,Urine Negative (Negative); Leukocyte Esterase,Urine Trace (Negative); Mucus,Urine Rare /hpf; Nitrite,Urine Negative (Negative); PH, Urine 6.5 (5.0-8.0); Protein,Urine Negative (Negative); RBC,Urine 9 /hpf (0-5); Specific Gravity,Urine 1.010 (1.001-1.035); Urobilinogen,Urine <2.0 mg/dL (<2.0); WBC,Urine 4 /hpf (0-5)
[2024-10-08] MEDS ORDERED: ONDANSETRON 4 MG/2 ML VIAL IVP PRN (05:07)
[2024-10-08] MEDS ORDERED: NALOXONE 0.4 MG/ML 1 ML VIAL IV PRN (05:07)
[2024-10-08] MEDS ORDERED: ACETAMINOPHEN TAB 325 MG TAB PO PRN (05:07)
[2024-10-08] MEDS ORDERED: FUROSEMIDE 40 MG TAB PO SCH (09:00)
[2024-10-08] MEDS: INSULIN LISPRO (HumaLOG) 100 UNIT/ML 10 mL VL SQ SCH (09:23)
[2024-10-08] MEDS: AMIODARONE 200 MG TAB PO SCH (09:23)
[2024-10-08] MEDS: FOLIC ACID 1 MG TAB PO SCH (09:24)
[2024-10-08] MEDS: METOPROLOL TARTRATE 25 MG TAB PO SCH (09:24)
[2024-10-08] MEDS: APIXABAN 2.5 MG TABLET PO SCH (09:25)
[2024-10-08] MEDS: FERROUS SULFATE 325 MG TAB PO SCH (09:26)
[2024-10-08] MEDS: CEPHALEXIN 500 MG CAP PO SCH ×2 (09:26→21:02)
[2024-10-08] MEDS: FAMOTIDINE 20 MG TAB PO SCH (09:26)
[2024-10-08] MEDS: predniSONE 10 MG TAB PO SCH (09:27)
[2024-10-08 10:04] LABS: ALT 20 U/L (4-49); AST 26 U/L (17-59); African American GFR (CKD) 24 (>60 ml/min/1.73 sqM); Albumin 2.9 g/dL (3.5-5.0); Albumin/Globulin Ratio 1.1; Alkaline Phosphatase 86 U/L (38-126); Anion Gap 11 mmol/L; Calcium 8.2 mg/dL (8.4-10.2); Carbon Dioxide 36 mmol/L (22-30); Chloride 88 mmol/L (98-107); Globulin 2.7 g/dL; Glucose 90 mg/dL (74-99); Magnesium 2.0 mg/dL (1.6-2.3); Non-African American GFR(CKD) 21 (>60 ml/min/1.73 sqM); Potassium 2.9 mmol/L (3.5-5.1); Sodium 135 mmol/L (137-145); Total Protein 5.6 g/dL (6.3-8.2)
[2024-10-08 10:12] LABS: Blood Urea Nitrogen 143 mg/dL (9-20)
[2024-10-08] MEDS: SODIUM CHLORIDE 0.9% 1,000 ML IV SCH (10:47)
[2024-10-08] MEDS: POTASSIUM CHLORIDE ER 20 MEQ TAB.ER PO STA (10:47)
--- NOTE | 2024-10-08 10:48 | P.NPCON ---
History of Present Illness - Reason for Consult acute renal failure, chronic renal failure - History of Present Illness Reason for consultation: Acute kidney injury on chronic kidney disease History of present illness: Patient is a 74-year-old male seen in renal consultation for acute kidney injury on chronic kidney disease. Patient has chronic kidney disease stage IV with recent creatinine near 2.5. Patient was recently admitted at this facility and was aggressively diuresed due to severe volume overload. Patient has been receiving Lasix and metolazone outpatient. Patient had blood work done which showed an elevated BUN and he was sent to the hospital. Creatinine was 3.04 and is down to 2.9 today. BUN is down from 150-143 today. Currently has an external catheter. Nonoliguric. Patient does have history of systolic CHF ejection fraction of 35 to 40%. He also has history of hepatitis C and hepatocellular carcinoma. Oral intake has been fair. Denies use of nonsteroidals. Ultrasound from August 2024 showed no evidence of hydronephrosis. Vital signs are stable. General: No acute distress. HEENT: Head exam is unremarkable. On nasal cannula. LUNGS: No audible rhonchi or wheezes. HEART: Rate and Rhythm are regular. ABDOMEN: Nontender. EXTREMITITES: Trace edema. Chronic changes noted. 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 Hospitalized last week for CHF & Pneumonia. Irr. heart rate @ times. liver cancer Last Myocardial Infarction Date:: 2022 History of Any Multi-Drug Resistant Organisms: None Reported Past Surgical History: Back Surgery, Heart Catheterization, Hernia Repair, Orthopedic Surgery, Pacemaker Additional Past Surgical History / Comment(s): liver ablation done at [place] for tx of hepatocellular carcinoma,hemorrhoids ,back surgery, cataract, skin cancer, inguinal hernia, abdominal hernia, left shoulder, right wrist, growth removed vocal cord, PAROTID GLAND REMOVED DUE TO CANCER. Past Anesthesia/Blood Transfusion Reactions: No Reported Reaction Additional Past Anesthesia/Blood Transfusion Reaction / Comment(s): no hx blood transfusion Type of Cardiac Device: Permanent Pacemaker Device Placement Date:: 01/20/24 Past Psychological History: No Psychological Hx Reported Smoking Status: Former smoker Past Alcohol Use History: None Reported Past Drug Use History: None Reported - Past Family History Father Family Medical History: Cancer Medications and Allergies Home Medications Medication Instructions Recorded Confirmed Type Tiotropium 2.5 Mcg/Puff [Spiriva 1 puff INHALATION RT-BID 01/14/23 09/13/24 History Respimat 2.5 Mcg] Cholecalciferol [Vitamin D3 (25 25 mcg PO DAILY 02/11/23 09/13/24 History Mcg = 1000 Iu)] Multivit-Min/FA/Lycopen/Lutein 1 tab PO DAILY 02/11/23 09/13/24 History [Centrum Silver Tablet] Albuterol Inhaler [Ventolin Hfa 2 puff INHALATION RT-Q6H PRN 06/30/23 09/13/24 History Inhaler] Fluticasone Propion/Salmeterol 1 puff INHALATION RT-BID 01/14/24 09/13/24 History [[place] 500-50 Inhub] Ferrous Sulfate [Iron (65 MG 325 mg PO DAILY 02/06/24 09/13/24 History Elemental)] Folic Acid 1 mg PO DAILY 02/06/24 09/13/24 History Naloxone HCl [Narcan] 4 mg NASAL DIRECTED PRN 02/06/24 09/13/24 History Ipratropium-Albuterol Nebulize 3 ml INHALATION RT-Q4H PRN each 02/07/24 09/13/24 Rx [Duoneb 0.5 mg-3 mg/3 ml Soln] predniSONE 5 mg PO DAILY 07/04/24 09/13/24 History Apixaban [Eliquis] 2.5 mg PO BID 07/25/24 09/13/24 History ALPRAZolam [Xanax] 0.25 mg PO BID PRN 2 Days #4 tab 09/29/24 Rx Amiodarone [Cordarone] 200 mg PO BID #0 tab 09/29/24 Rx Atorvastatin [Lipitor] 40 mg PO HS #0 tab 09/29/24 Rx Furosemide [Lasix] 60 mg PO BID #0 09/29/24 09/13/24 Rx INSULIN LISPRO (HumaLOG) [HumaLOG] 0 unit SQ ACHS each 09/29/24 Rx Metoprolol Tartrate [Lopressor] 25 mg PO TID #0 tab 09/29/24 Rx Sennosides-Docusate Sodium 1 tab PO DAILY PRN #0 09/29/24 09/13/24 Rx [Senokot-S] ALPRAZolam [Xanax] 0.25 mg PO BID PRN #4 tab 10/02/24 Rx Famotidine [Pepcid] 20 mg PO DAILY #30 tablet 10/02/24 Rx HYDROcodone/APAP 10-325MG [[place] 1 tab PO Q12H PRN 5 Days #10 tab 10/02/24 Rx 10-325] Nystatin 100,000Unit/gm Cream 1 applic TOPICAL TID #60 gm 10/02/24 Rx [Mycostatin Cream] metOLazone [Zaroxolyn] 5 mg PO DAILY tab 10/02/24 Rx predniSONE 10 mg PO DIRECTED #20 tab 10/02/24 Rx Allergies Allergy/AdvReac Type Severity Reaction Status Date / Time allopurinol AdvReac Gout Verified 09/13/24 14:13 atenolol AdvReac Fatigue,Bra Verified 09/13/24 14:13 dycardia doxazosin AdvReac Delerium,Di Verified 09/13/24 14:13 zziness hydralazine AdvReac Unknown Verified 09/13/24 14:13 lisinopril AdvReac Cough Verified 09/13/24 14:13 metoprolol [From Lopressor] AdvReac Chest Pain Verified 09/13/24 14:13 omalizumab [From Xolair] AdvReac urticaria Verified 09/13/24 14:13 Physical Exam Vitals: Vital Signs Temp Pulse Resp BP Pulse Ox 10/08/24 07:55 101 H 18 124/93 98 10/08/24 05:31 89 16 128/78 10/08/24 04:35 92 16 127/68 94 L 10/08/24 03:40 88 18 106/61 10/08/24 02:05 92 16 110/68 95 10/08/24 01:09 98.0 F 98 18 106/76 95 Intake and Output 10/07/24 10/08/24 10/08/24 22:59 06:59 14:59 Other: Weight 83.915 kg Results - Lab Results Most recent lab results Calcium 8.2 mg/dL (8.4-10.2) L 10/08/24 09:10 Magnesium 2.0 mg/dL (1.6-2.3) 10/08/24 09:10 10/08/24 01:31 10/08/24 09:10 Assessment and Plan Plan: Assessment: 1. Acute kidney injury secondary to ATN secondary to cardiorenal syndrome and overdiuresis. Creatinine 3.04 on admission and is 2.9 today. No proteinuria on UA. 2. Chronic kidney disease stage IV baseline creatinine near 2.5. 3. Hypokalemia from diuresis. 4. Chronic systolic CHF with ejection fraction of 25 to 30%. 5. History of hepatitis C and hepatocellular carcinoma. 6. Anemia of chronic kidney disease. No active bleeding. Plan: Hold diuretics. Check chest x-ray. Start normal saline at 75 cc an hour. Replace potassium. Check iron studies. Continue to monitor renal function and urine output. Discussed potential need for renal replacement therapy with patient. He is refusing any form of renal placement therapy. He is requesting hospice consult. Also discussed with RN. Thank you for the consultation. I will continue to follow the patient with you during his hospital stay.
[2024-10-08] MEDS: HYDROcodone/APAP 10-325MG 1 EACH TAB PO PRN (10:53)
[2024-10-08] MEDS: SYMBICORT 160-4.5 MCG INHALER INHALATION SCH (12:08)
--- NOTE | 2024-10-08 13:03 | XR ---
EXAMINATION TYPE: XR chest 1V DATE OF EXAM: 10/08/2024 12:59 PM COMPARISON: 09/23/2024 CLINICAL INDICATION: Male, 74 years old with history of sob, TECHNIQUE: XR chest 1V views of the chest are obtained. FINDINGS: Demonstrated are scattered senescent parenchymal change. Left basilar atelectasis and/or infiltrate. The heart is stable. Hilar and mediastinal structures are within normal limits. Degenerative changes are seen of the dorsal spine. IMPRESSION: 1. Left basilar atelectasis and/or infiltrate. [facility], , 10/08/2024 1:01 PM
[2024-10-08 16:22] LABS: Iron 36.0 UG/DL (65-175); Total Iron Binding Capacity 251.0 UG/DL (228-460)
[2024-10-08 16:54] LABS: Ferritin 510.0 ng/mL (22.0-322.0)
[2024-10-08 16:56] LABS: Glucose,Whole Blood 89 mg/dL (70-110)
[2024-10-08] MEDS: MORPHINE SULFATE 2 MG/ML SYRINGE IVP PRN (17:15)
[2024-10-08] MEDS: ATORVASTATIN 40 MG TAB PO SCH (21:02)
--- NOTE | 2024-10-09 00:18 | HP ---
HISTORY AND PHYSICAL CHIEF COMPLAINT: Abnormal labs. HISTORY OF PRESENT ILLNESS: This 74-year-old gentleman with a past medical history of multiple medical problems, recently admitted to [facility] with bilateral pneumonia and multiple other complex medical issues. The patient had COPD, CHF also. During the last admission, discussion with the tertiary care center was also done and the transfer was not approved at that time. Apparently, information received at the hospice also with the family members and currently the patient would like to go with hospice and family has some questions about the patient is being transferred to the hospital because of multiple lab abnormalities. The patient is confused and the patient is short of breath. The patient is closely monitored. The patient is in the [facility] Emergency Room at this time. The lab renteria, the creatinine has worsen to 3. BUN is also elevated. A detailed history cannot be taken from the patient. Most history is taken by discussion with staff and review of chart at this time. PAST MEDICAL HISTORY: History of COPD, CHF. Rest of the history and chart is also reviewed. HOME MEDICATIONS: Reviewed, include prednisone. Doses and rest of medications reviewed. ALLERGIES: Allopurinol. FAMILY HISTORY: History of cancer. SOCIAL HISTORY: Remote history of smoking. REVIEW OF SYSTEMS: A 14-point review of systems is negative except as mentioned earlier. PHYSICAL EXAMINATION: VITAL SIGNS: Pulse is 108, blood pressure 118/58, and respirations 12. HEENT: Conjunctivae normal. NECK: No jugular venous distention. CARDIOVASCULAR: S1, S2. RESPIRATIONS: Breath sounds diminished at the bases. A few scattered rhonchi. ABDOMEN: Soft. NERVOUS SYSTEM: Diffusely weak. LABORATORY DATA: Reviewed. ASSESSMENT: 1. Acute on chronic renal failure, multifactorial. 2. Change in mental status, metabolic encephalopathy. 3. History of recent hospital-acquired pneumonia and acute hypoxic respiratory failure. 4. Chronic atrial fibrillation. 5. History of recent hemoptysis. 6. Chronic liver disease. 7. Multiple complex medical issues. 8. Hepatitis C and hepatocellular carcinoma. 9. NO CODE. NO CPR. RECOMMENDATIONS: This 74-year-old gentleman presented with multiple complex medical issues. At this time, the creatinine has worsened. The patient has acute on chronic renal failure, as well as change in mental status, also ejection fraction only 35%-40%. The patient also has a history of hepatitis C and hepatocellular carcinoma. Currently, THE PATIENT IS NO CODE. We will continue with the conservative line of management. Nephrology following the patient closely. The patient is currently NO CODE. We will have discussion with the family regarding the hospice because of the above-mentioned multiple complex medical issues and lack of any significant improvement. We will continue to monitor. Further recommendations to follow. PARAMJIT / IJN: [id number] /
[2024-10-09] MEDS ORDERED: ZINC OXIDE PASTE (Z-GUARD) 1 APPLIC TOPICAL PRN (03:39)
[2024-10-09 08:13] LABS: Glucose,Whole Blood 83 mg/dL (70-110)
[2024-10-09 08:36] VITALS: BP 108/62; RESP 20; TEMP 96.9
[2024-10-09] MEDS: ALPRAZolam 0.25 MG TAB PO PRN (09:06)
[2024-10-09 09:29] LABS: Magnesium 2.0 mg/dL (1.5-2.4)
[2024-10-09 09:42] LABS: Anion Gap 19.80 mmol/L (4.00-12.00); Blood Urea Nitrogen 129.0 mg/dL (9.0-27.0); Calcium 7.8 mg/dL (8.7-10.3); Carbon Dioxide 29.2 mmol/L (21.6-31.8); Chloride 89 mmol/L (96-109); Glucose 71 mg/dL (70-110); Potassium 3.0 mmol/L (3.5-5.5); Sodium 138 mmol/L (135-145)
--- NOTE | 2024-10-09 10:18 | P.PN ---
Subjective Patient is seen in follow-up for acute kidney injury on chronic kidney disease. BUN trending down. Has been voiding. IV fluids were ordered but patient did not receive any overnight. Vital signs are stable. General: No acute distress. HEENT: Head exam is unremarkable. LUNGS: No audible rhonchi or wheezes. HEART: Rate and Rhythm are regular. At that ABDOMEN: Nontender. EXTREMITITES: No edema. Chronic changes noted. Objective - Vital Signs Vital signs: Vital Signs Temp 96.9 F L 10/09/24 08:00 Pulse 112 H 10/09/24 08:00 Resp 20 10/09/24 08:00 BP 108/62 10/09/24 08:00 Pulse Ox 91 L 10/09/24 08:00 FiO2 Intake & Output 10/08/24 10/09/24 10/09/24 18:59 06:59 18:59 Intake Total 590 Output Total 600 Balance -10 Intake: Oral 590 Output: Urine 600 - Labs CBC & Chem 7: 10/08/24 01:31 10/09/24 06:30 Labs: Abnormal Lab Results - Last 24 Hours (Table) 10/08/24 10/09/24 Range/Units 09:10 06:30 Potassium 3.0 L (3.5-5.5) mmol/L Chloride 89 L (96-109) mmol/L Anion Gap 19.80 H (4.00-12.00) mmol/L BUN 129.0 H (9.0-27.0) mg/dL Calcium 7.8 L (8.7-10.3) mg/dL Iron 36 L (65-175) UG/DL % Saturation 14.34 L (15.00-50.00) Transferrin 179.0 L (204.0-354.0) mg/dL Ferritin 510.0 H (22.0-322.0) ng/mL Assessment and Plan Plan: Assessment: 1. Acute kidney injury secondary to ATN secondary to cardiorenal syndrome and overdiuresis. Creatinine 3.04 on admission and was 2.9 yesterday. BUN trending down. No proteinuria on UA. 2. Chronic kidney disease stage IV baseline creatinine near 2.5. 3. Hypokalemia from diuresis. 4. Chronic systolic CHF with ejection fraction of 25 to 30%. 5. History of hepatitis C and hepatocellular carcinoma. 6. Anemia of chronic kidney disease. No active bleeding. Iron deficiency noted. Plan: Hold diuretics. Start normal saline at 75 cc an hour. Discussed with RN. Replace potassium. Add IV iron. Continue to monitor renal function and urine output. Discussed potential need for renal replacement therapy with patient. He is refusing any form of renal placement therapy. Hospice consulted.
[2024-10-09] MEDS: IPRATROPIUM-ALBUTEROL 3 ML NEB INHALATION PRN (11:25)
[2024-10-09 11:39] VITALS: PULSE 94
[2024-10-09] MEDS: SODIUM FERRIC GLUCONAT-SUCROSE 125 MG in SODIUM CHLORIDE 0.9% 100 ML IVPB SCH (11:57)
[2024-10-09] MEDS: POTASSIUM CHLORIDE ER 20 MEQ TAB.ER PO STA (11:57)
--- NOTE | 2024-10-09 14:41 | PN ---
PROGRESS NOTE DATE OF SERVICE: 10/09/2024 HISTORY OF PRESENT ILLNESS: This is a 74-year-old gentleman with a past medical history with acute on chronic renal failure, change in mental status, metabolic encephalopathy, and history of atrial fibrillation. The patient also has a history of hepatitis C and hepatocellular carcinoma. The patient also complaining of some pain. The patient is confused at this time. PAST MEDICAL HISTORY: Reviewed. REVIEW OF SYSTEMS: Could not be taken. CURRENT MEDICATIONS: Reviewed. PHYSICAL EXAMINATION: VITAL SIGNS: Pulse is 112, blood pressure 90/65, respirations 20. HEENT: Conjunctivae normal. NECK: No JVD. CARDIOVASCULAR: S1, S2. RESPIRATIONS: Few scattered rhonchi. ABDOMEN: Soft. NERVOUS SYSTEM: Nonfocal. LABORATORY DATA: Sodium 130, potassium 3. Rest of the labs are noted. ASSESSMENT: 1. Acute on chronic renal failure, multifactorial. 2. Change in mental status, acute metabolic encephalopathy. 3. History of recent hospital-acquired pneumonia and acute hypoxic respiratory failure. 4. Hepatitis C and hepatocellular carcinoma. 5. Chronic atrial fibrillation. 6. History of recent hemoptysis. 7. Chronic liver disease. 8. Multiple complex medical issues. 9. NO CODE. NO CPR. NO VENT. RECOMMENDATIONS: I recommend to continue current medications. I had a detailed discussion with the patient and the family at the bedside. At this time, they will proceed with hospice. Prognosis guarded because of multiple complex medical issues. Further recommendations to follow. See orders for details. MMODL / IJN: [id number] /
== END 2024-10-09 12:42 | disposition hospice, inpatient (51) ==
LOC: EC 01:08 → 5NMEDONC 05:08
PROVIDERS: ADMIT Internal Medicine; ATTEND Internal Medicine
DX: N17.0 Acute kidney failure with tubular necrosis (principal); G93.41 Metabolic encephalopathy; I13.0 Hypertensive heart and chronic kidney disease with heart failure and stage 1 through stage 4 chronic kidney disease, or unspecified chronic kidney disease; N18.4 Chronic kidney disease, stage 4 (severe); I50.22 Chronic systolic (congestive) heart failure; T50.2X5A Adverse effect of carbonic-anhydrase inhibitors, benzothiadiazides and other diuretics, initial encounter; E87.6 Hypokalemia; J96.11 Chronic respiratory failure with hypoxia; I48.20 Chronic atrial fibrillation, unspecified; I42.9 Cardiomyopathy, unspecified; I49.5 Sick sinus syndrome; D63.1 Anemia in chronic kidney disease; B19.20 Unspecified viral hepatitis C without hepatic coma; D61.818 Other pancytopenia; R94.31 Abnormal electrocardiogram [ECG] [EKG]; I44.4 Left anterior fascicular block; J44.9 Chronic obstructive pulmonary disease, unspecified; Z79.01 Long term (current) use of anticoagulants; Z79.51 Long term (current) use of inhaled steroids; Z79.52 Long term (current) use of systemic steroids; Z79.4 Long term (current) use of insulin; Z79.899 Other long term (current) drug therapy; Z88.8 Allergy status to other drugs, medicaments and biological substances; Z87.891 Personal history of nicotine dependence; Z87.01 Personal history of pneumonia (recurrent); Z87.19 Personal history of other diseases of the digestive system; Z85.05 Personal history of malignant neoplasm of liver; Z66 Do not resuscitate
CPT/HCPCS: 96376 ×2; 96374; 96375; 99285; 36415; 94640 ×2; 93005; 80053; 80048; 82728; 83540; 83550; 83735 ×2; 85025; 85610; 85730; 81001; 71045; G0378 ×2; J2270 ×2; J1938

== ENCOUNTER 2024-10-09 12:24 | Inpatient (IN) | payer MEDICAID, MEDICARE, OTHER ==
[2024-10-09] MEDS: IPRATROPIUM-ALBUTEROL 3 ML NEB INHALATION PRN (15:01)
[2024-10-09] MEDS: MORPHINE SULFATE 2 MG/ML SYRINGE IV PRN (17:58)
[2024-10-09] MEDS: SYMBICORT 160-4.5 MCG INHALER INHALATION SCH (18:12)
[2024-10-09] MEDS: ALPRAZolam 0.25 MG TAB PO PRN (20:38)
[2024-10-10] MEDS: LORazepam 1 MG/0.5 ML VIAL IV PRN (13:42)
--- NOTE | 2024-10-10 15:18 | P.HPIM ---
History of Present Illness H&P Date: 10/10/24 History of present illness; patient 74-year-old gentleman past medical history significant for chronic kidney disease atrial fibrillation who initially admitted to the hospital for electrolyte abnormalities, patient was seen by nephrology. Discussion took place between primary team and patient family decision was made to proceed with hospice, patient was admitted to [facility]. REVIEW OF SYSTEMS: Review of system cannot be obtained as patient is lethargic PHYSICAL EXAMINATION: GENERAL: The patient is ill looking HEENT: Pupils are round and equally reacting to light. EOMI. No scleral icterus. No conjunctival pallor. Normocephalic, atraumatic. No pharyngeal erythema. No thyromegaly. CARDIOVASCULAR: S1 and S2 present. No murmurs, rubs, or gallops. PULMONARY: Tachypneic, coarse breath sounds bilaterally ABDOMEN: Soft, nontender, nondistended, normoactive bowel sounds. No palpable organomegaly. MUSCULOSKELETAL: No joint swelling or deformity. EXTREMITIES: No cyanosis, clubbing, or pedal edema. NEUROLOGICAL: Gross neurological examination did not reveal any focal deficits. SKIN: No rashes. Assessment and plan Acute metabolic encephalopathy Acute kidney injury secondary to ATN secondary to cardiorenal syndrome and overdiuresis Chronic kidney disease stage IV baseline creatinine near 2.5. Hypokalemia from diuresis. Chronic systolic CHF with ejection fraction of 25 to 30%. History of hepatitis C and hepatocellular carcinoma. Chronic atrial fibrillation History hemoptysis Anemia of chronic kidney disease. No active bleeding Monitor vital signs Continue comfort care measures Hospice consulted Labs and medication were reviewed.. Continue same treatment. Continue with symptomatic treatment. Resume home medication. Monitor labs and vitals. DVT and GI prophylaxis. Further recommendations as per clinical course of the patient Dictation was produced using [employer] dictation software. please excuse any grammatical, word or spelling errors. 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 Hospitalized last week for CHF & Pneumonia. Irr. heart rate @ times. liver cancer Last Myocardial Infarction Date:: 2022 History of Any Multi-Drug Resistant Organisms: None Reported Past Surgical History: Back Surgery, Heart Catheterization, Hernia Repair, Orthopedic Surgery, Pacemaker Additional Past Surgical History / Comment(s): liver ablation done at [facility] [facility] for tx of hepatocellular carcinoma,hemorrhoids ,back surgery, cataract, skin cancer, inguinal hernia, abdominal hernia, left shoulder, right wrist, growth removed vocal cord, PAROTID GLAND REMOVED DUE TO CANCER. Past Anesthesia/Blood Transfusion Reactions: No Reported Reaction Additional Past Anesthesia/Blood Transfusion Reaction / Comment(s): no hx blood transfusion Type of Cardiac Device: Permanent Pacemaker Device Placement Date:: 01/20/24 Past Psychological History: No Psychological Hx Reported Smoking Status: Former smoker Past Alcohol Use History: None Reported Past Drug Use History: None Reported - Past Family History Father Family Medical History: Cancer Medications and Allergies Home Medications Medication Instructions Recorded Confirmed Type Tiotropium 2.5 Mcg/Puff [Spiriva 1 puff INHALATION RT-BID 01/14/23 10/09/24 History Respimat 2.5 Mcg] Cholecalciferol [Vitamin D3 (25 25 mcg PO DAILY 02/11/23 10/09/24 History Mcg = 1000 Iu)] Albuterol Inhaler [Ventolin Hfa 2 puff INHALATION RT-Q6H PRN 06/30/23 10/09/24 History Inhaler] Fluticasone Propion/Salmeterol 1 puff INHALATION RT-BID 01/14/24 10/09/24 History [Wixela 500-50 Inhub] Ferrous Sulfate [Iron (65 MG 325 mg PO DAILY 02/06/24 10/09/24 History Elemental)] Folic Acid 1 mg PO DAILY 02/06/24 10/09/24 History Naloxone HCl [Narcan] 4 mg NASAL DIRECTED PRN 02/06/24 10/09/24 History predniSONE 5 mg PO DIRECTED 07/04/24 10/09/24 History Apixaban [Eliquis] 2.5 mg PO BID 07/25/24 10/09/24 History ALPRAZolam [Xanax] 0.25 mg PO BID PRN 2 Days #4 tab 09/29/24 10/09/24 Rx Atorvastatin [Lipitor] 40 mg PO HS #0 tab 09/29/24 10/09/24 Rx Sennosides-Docusate Sodium 1 tab PO DAILY PRN #0 09/29/24 10/09/24 Rx [Senokot-S] Famotidine [Pepcid] 20 mg PO DAILY #30 tablet 10/02/24 10/09/24 Rx metOLazone [Zaroxolyn] 5 mg PO DAILY tab 10/02/24 10/09/24 Rx Amiodarone [Cordarone] 200 mg PO Q12H 10/08/24 10/09/24 History Cephalexin [Keflex] 500 mg PO DIRECTED 10/08/24 10/09/24 History Furosemide [Lasix] 60 mg PO BID@0600,1400 10/08/24 10/09/24 History HYDROcodone/APAP 10-325MG [Burgess 1 tab PO Q6H PRN 10/08/24 10/09/24 History 10-325] Insulin Lispro [humaLOG Kwikpen] See Protocol SQ ACHS 10/08/24 10/09/24 History Lactobacillus Acidophilus 1 cap PO Q12H 10/08/24 10/09/24 History [Acidophilus Probiotic] Metoprolol Tartrate [Lopressor] 25 mg PO TID@0600,1300,2100 10/08/24 10/09/24 History Multivitamins, Thera [Multivitamin 1 tab PO DAILY 10/08/24 10/09/24 History (formulary)] predniSONE See Taper PO DAILY 10/08/24 10/09/24 History Allergies Allergy/AdvReac Type Severity Reaction Status Date / Time allopurinol AdvReac Gout Verified 10/08/24 11:26 atenolol AdvReac Fatigue,Bra Verified 10/08/24 11:26 dycardia doxazosin AdvReac Delerium,Di Verified 10/08/24 11:26 zziness hydralazine AdvReac Unknown Verified 10/08/24 11:26 lisinopril AdvReac Cough Verified 10/08/24 11:26 metoprolol [From Lopressor] AdvReac Chest Pain Verified 10/08/24 11:26 omalizumab [From Xolair] AdvReac urticaria Verified 10/08/24 11:26 Physical Exam Vitals: Vital Signs Resp 10/10/24 13:05 24 10/10/24 09:10 16 Intake and Output 10/10/24 10/10/24 10/10/24 06:59 14:59 22:59 Intake Total 590 Output Total 700 Balance -110 Intake: Oral 590 Output: Urine 700 Other: Voiding Method Diaper Incontinent # Bowel Movements 1
[2024-10-10] MEDS: SCOPOLAMINE 1 MG/72 HR PATCH TRANSDERM SCH (16:55)
[2024-10-10 18:39] VITALS: PULSE 73
[2024-10-10] MEDS: MORPHINE SULFATE 2 MG/ML SYRINGE IVP PRN (20:29)
[2024-10-11 03:13] VITALS: TEMP 98.7
[2024-10-11] MEDS: MORPHINE SULFATE 100 MG in SODIUM CHLORIDE 0.9% 90 ML IV SCH (04:13)
[2024-10-11 08:06] VITALS: RESP 20
[2024-10-11] MEDS: GLYCOPYRROLATE 0.2 MG/ML 2 ML VIAL IVP PRN (11:29)
[2024-10-11] MEDS: LORazepam 1 MG/0.5 ML VIAL IV PRN (11:29)
[2024-10-11] MEDS: ATROPINE OPHTH SOLN 1% 5ML BTL SUBLINGUAL PRN (12:16)
== END 2024-10-11 16:43 | disposition expired | DRG 951 ==
LOC: 5NMEDONC 12:42
PROVIDERS: ADMIT Internal Medicine; ATTEND Internal Medicine
DX: Z51.5 Encounter for palliative care (principal); N17.0 Acute kidney failure with tubular necrosis; G93.41 Metabolic encephalopathy; C22.0 Liver cell carcinoma; I13.0 Hypertensive heart and chronic kidney disease with heart failure and stage 1 through stage 4 chronic kidney disease, or unspecified chronic kidney disease; N18.4 Chronic kidney disease, stage 4 (severe); J44.9 Chronic obstructive pulmonary disease, unspecified; D63.1 Anemia in chronic kidney disease; B19.20 Unspecified viral hepatitis C without hepatic coma; I50.22 Chronic systolic (congestive) heart failure; I48.20 Chronic atrial fibrillation, unspecified; Z79.4 Long term (current) use of insulin; Z66 Do not resuscitate; E87.6 Hypokalemia; I25.2 Old myocardial infarction; M54.9 Dorsalgia, unspecified; Z79.01 Long term (current) use of anticoagulants; Z79.51 Long term (current) use of inhaled steroids; Z79.899 Other long term (current) drug therapy; Z85.818 Personal history of malignant neoplasm of other sites of lip, oral cavity, and pharynx; Z85.828 Personal history of other malignant neoplasm of skin; Z87.891 Personal history of nicotine dependence; Z95.0 Presence of cardiac pacemaker; Z88.8 Allergy status to other drugs, medicaments and biological substances